=== PATIENT | male | born 1945 | race Caucasian/White ===

== ENCOUNTER 2017-12-21 22:01 | Observation (INO) | payer OTHER ==
--- OUTSIDE RECORDS SUMMARY | 2017-12-21 22:04 | XMS REPORT | Clinical Summary ---
:1945 Author Organization [facility] Address [address] [place] [address] Phone Care Team Providers Name Role Phone Unavailable Primary Care Provider Unavailable Allergies No Known Allergies Current Medications Prescription Sig. Disp. Refills Start Date End Date Status colchicine Take 0.6 mg by 11/30/2015 Active (COLCRYS) 0.6 mg mouth. tablet rivaroxaban Take 20 mg by 11/20/2015 Active (XARELTO) 20 mg Tab mouth. tablet acetaminophen Take 2 tablets 30 tablet 0 10/01/2017 09/27/19 Active (TYLENOL) 325 MG (650 mg total) by 19 tablet mouth every 4 (four) hours as needed for up to 360 days. allopurinol Take 1 tablet 0 10/02/2017 10/03/19 Active (ZYLOPRIM) 100 MG (100 mg total) by 19 tablet mouth daily. amiodarone Take 1 tablet 0 10/02/2017 10/03/19 Active (PACERONE) 200 MG (200 mg total) by 19 tablet mouth daily. formoterol Take 2 mLs (20 0 10/01/2017 Active (PERFOROMIST) 20 mcg total) by mcg/2 mL nebulizer nebulization 2 solution (two) times daily. ascorbic acid, Take 1 tablet 0 10/01/2017 10/02/19 Active vitamin C, (VITAMIN (500 mg total) by 19 C) 500 MG tablet mouth 2 (two) times daily. atorvastatin Take 1 tablet (40 0 10/01/2017 10/02/19 Active (LIPITOR) 40 MG mg total) by 19 tablet mouth nightly. budesonide Take 2 mLs (0.25 60 mL 0 10/01/2017 10/02/19 Active (PULMICORT) 0.25 mg total) by 19 mg/2 mL nebulizer nebulization 2 solution (two) times daily. escitalopram Take 1 tablet (10 0 10/02/2017 01/01/20 Active oxalate (LEXAPRO) mg total) by 18 10 MG tablet mouth daily for 90 days. folic acid Take 1 tablet (1 0 10/02/2017 10/03/19 Active (FOLVITE) 1 MG mg total) by 19 tablet mouth daily. magnesium oxide Take 2 tablets 0 10/02/2017 10/03/19 Active (MAG-OX) 400 mg (800 mg total) by 19 tablet mouth daily. metoprolol Take 1 tablet (50 0 10/02/2017 10/03/19 Active (TOPROL-XL) 50 MG mg total) by 19 24 hr tablet mouth daily. multivitamin Take 1 tablet by 0 10/02/2017 10/03/19 Active (THERAGRAN) tablet mouth daily. 19 pantoprazole Take 1 tablet (40 0 10/02/2017 Active (PROTONIX) 40 MG mg total) by tablet mouth daily. zinc sulfate Take 1 capsule 0 10/02/2017 10/03/19 Active (ZINCATE) 220 (50) (220 mg total) by 19 mg capsule mouth daily. nystatin Apply topically 2 15 g 0 12/04/2017 12/05/19 Active (MYCOSTATIN) (two) times 19 100,000 unit/gram daily. powder allopurinol Take 100 mg by 09/28/2015 10/02/19 Discontinued (ZYLOPRIM) 300 MG mouth daily . 18 tablet furosemide (LASIX) Take 20 mg by 10/08/2015 10/02/19 Discontinued 20 MG tablet mouth. 18 metoprolol Take by mouth 12/08/2015 10/02/19 Discontinued (TOPROL-XL) 100 MG 25mg am and 50mg 18 24 hr tablet pm. simvastatin (ZOCOR) Take 40 mg by 12/15/2015 12/01/19 Discontinued 40 MG tablet mouth. 18 furosemide (LASIX) Take 80 mg by 07/22/19 Discontinued 80 MG tablet mouth daily. 18 lisinopril Take 5 mg by 07/22/19 Discontinued (PRINIVIL,ZESTRIL) mouth daily. 18 5 MG tablet lisinopril Take 20 mg by 10/02/19 Discontinued (PRINIVIL,ZESTRIL) mouth daily. 18 20 MG tablet metroNIDAZOLE Take 1 tablet 30 tablet 0 10/01/2017 10/19/19 (FLAGYL) 500 MG (500 mg total) by 18 tablet mouth every 8 (eight) hours for 17 days. mirtazapine Take 1 tablet (15 0 10/01/2017 11/01/19 (REMERON GISSEL-TAB) mg total) by 18 15 MG mouth nightly for disintegrating 30 days. tablet traMADol (ULTRAM) Take 1 tablet (50 30 tablet 0 10/01/2017 10/04/19 Discontinued 50 mg tablet mg total) by 18 mouth every 6 (six) hours as needed for up to 10 days. Max Daily Amount: 200 mg traMADol (ULTRAM) Take 1 tablet (50 30 tablet 0 10/03/2017 10/04/19 Discontinued 50 mg tablet mg total) by 18 mouth every 6 (six) hours as needed. Max Daily Amount: 200 mg traMADol (ULTRAM) Take 1 tablet (50 30 tablet 0 10/03/2017 12/01/19 Discontinued 50 mg tablet mg total) by 18 mouth every 6 (six) hours as needed. Max Daily Amount: 200 mg acetaminophen-codei Take 1 tablet by 28 tablet 0 11/30/2017 12/08/19 ne (TYLENOL #3) mouth every 6 18 300-30 mg per (six) hours as tablet needed for up to 7 days. Max Daily Amount: 4 tablets Active Problems Problem Noted Date Sacral wound 11/30/2017 Decubitus ulcer 11/28/2017 Acute on chronic diastolic CHF (congestive heart failure), NYHA class 4 2017 ([facility]) Moderate protein-calorie malnutrition (HCC) 09/03/2017 Acute renal failure with tubular necrosis ([facility]) 09/03/2017 Acute pulmonary edema ([facility]) 09/03/2017 Severe sepsis ([facility]) 09/02/2017 Sacral decubitus ulcer, stage IV ([facility]) 09/01/2017 Overview: Added automatically from request for surgery [id number] Cardioembolic stroke ([facility]) 08/15/2017 Superficial postoperative wound infection 08/13/2017 CKD (chronic kidney disease) 08/13/2017 Type 2 diabetes mellitus (HCC) 08/13/2017 Physical deconditioning 08/13/2017 Anemia 08/13/2017 Hyponatremia 08/13/2017 Urinary retention 08/13/2017 Obstructive sleep apnea 07/25/2017 Overview: Untreated Acute pulmonary edema (HCC) 07/25/2017 CAD (coronary artery disease) 07/24/2017 Acute pulmonary insufficiency 07/24/2017 Overview: After cardiac surgery secondary to ERICKSON Angina of effort (HCC) Hyperlipidemia Atrial fibrillation with RVR ([facility]) Coronary artery disease Obesity Encounters Date Type Specialty Care Team Description 11/28/2017 [facility] General Internal Mallory Richardson, - Encounter Medicine 12/04/2017 Rommel Petersen MD Kazim, Lubna Syed, MD 09/19/2017 Procedure Pass 09/19/2017 Surgery Molly Sepulveda LAPAROSCOPY,COLOSTOMY F., CREATION/REVISION 09/18/2017 Anesthesia Event Yaneth Chowdhury GRNA 09/06/2017 Procedure Pass 09/06/2017 Surgery Meghan, R & L CATH / CORONARY Salman ANGIOS / PROSTIN MD Bee STUDY 09/02/2017 [facility] Cardiology [facility], Sacral decubitus - Encounter Edd Morales ulcer, stage IV ([facility]) 10/03/2017 Lara Cash MD (Primary Dx);Severe Rodney Maloney MD sepsis ([facility]);Atrial Gilma Perdomo fibrillation with RVR MD Rommel (HCC);YARELIS (acute kidney injury) ([facility]);Acute pulmonary edema ([facility]);Acute renal failure with tubular necrosis ([facility]);Adjustment disorder with depressed mood;Acute on chronic diastolic CHF (congestive heart failure), NYHA class 4 ([facility]);Coronary artery disease involving greenville coronary artery of greenville heart with unstable angina pectoris ([facility]) 09/02/2017 Procedure Pass 09/02/2017 Surgery [facility], DEBRIDEMENT/I&D,WOUND Edd Morales PERINEAL/RECTAL/VULVA Lara Cash MD R 09/01/2017 Anesthesia Event Catarina Sparks MD 08/15/2017 [facility] Physical Medicine and [place], Cardioembolic stroke - Encounter Rehabilitation Aiden Smith ([facility]);Atrial 09/02/2017 MD fibrillation, unspecified type ([facility]);Coronary artery disease involving greenville coronary artery of greenville heart with angina pectoris ([facility]);Type 2 diabetes mellitus without complication, with long-term current use of insulin ([facility]);Acute pulmonary edema ([facility]);Obstructive sleep apnea;Physical deconditioning;Wound of sacral region, sequela;Postoperative infection of wound of sternum, sequela 08/01/2017 Procedure Pass 08/01/2017 Surgery Trenton Nickerson DEBRIDEMENT/I&D,ANA Chisholm MD 07/31/2017 Anesthesia Event Kermit Rushing MD 07/24/2017 Hospital Cardiology Keri Lincoln Angina of effort - Encounter MD Richardson (HCC);Respiratory 08/15/2017 Yan Arreola insufficiency;Obstruc MD Kate tive sleep Gilma Perdomo apnea;Acute pulmonary MD Rommel insufficiency;Atrial fibrillation, unspecified type (HCC);Acute ischemic stroke (HCC);Wound of buttock, initial encounter;Gait abnormality;Impaired mobility and ADLs 07/24/2017 Anesthesia Event Walter Urbina MD 07/24/2017 Procedure Pass 07/24/2017 Surgery Keri Lincoln BYPASS,AORTO CORONARY MD Richardson LEANDRO/SVG 07/22/2017 [facility] Keri Lincoln Angina of effort Encounter MD Richardson (HCC) 07/22/2017 Office Visit Cardiology Keri Lincoln Coronary artery MD Richardson disease of greenville heart with stable angina pectoris, unspecified vessel or lesion type (HCC) (Primary Dx);Morbid obesity (HCC);Chronic atrial fibrillation (HCC);Angina of effort (HCC);Hyperlipidemia, unspecified hyperlipidemia type;Coronary artery disease involving greenville coronary artery of greenville heart with unstable angina pectoris (HCC) 07/22/2017 Orders Only Cardiology Keri Lincoln MD disease of greenville heart with stable angina pectoris, unspecified vessel or lesion type (HCC);Morbid obesity (HCC);Chronic atrial fibrillation (HCC) after 12/20/2016 Family History Medical History Relation Name Comments Diabetes Brother Heart disease Father Stroke Father Cancer Mother Diabetes Sister Relation Name Status Comments Brother Father Mother Sister Social History Tobacco Use Types Packs/Day Years Used Date Former Smoker Smokeless Tobacco: Never Used Comments: quit in 1981 Alcohol Use Drinks/Week oz/Week Comments Yes Sex Assigned at Date Recorded Not on file Last Filed Vital Signs Vital Sign Reading Time Taken Blood Pressure 128/58 12/04/2017 11:35 AM CDT Pulse 70 12/04/2017 11:35 AM CDT Temperature 36.7 C (98.1 F) 12/04/2017 11:35 AM CDT Respiratory Rate 18 12/04/2017 11:35 AM CDT Oxygen Saturation 96% 12/04/2017 11:35 AM CDT Inhaled Oxygen Concentration - - Weight 111.9 kg (246 lb 11.2 oz) 11/28/2017 5:00 PM CDT Height 182.9 cm (6') 11/28/2017 5:00 PM CDT Body Mass Index 33.46 11/28/2017 5:00 PM CDT Plan of Treatment Health Maintenance Due Date Last Done Comments INFLUENZA VACCINE 02/23/2018 Implants Implanted Type Area [employer] Device Expiration Model / Identifier Date Serial / Lot Sternal Zipfix Ndl Strl .[id number] - [id number] Cardiovascular N/A: SYNTHES:SYNTHES 02/22/2022.001.20S / Implanted: Qty: 3 on 07/24/2017 by Keri Lincoln MD [facility] / [id number] Procedures Procedure Name Priority Date/Time Associated Diagnosis Comments LAPAROSCOPY,COLOSTOMY 09/19/2017 10:01 AM Decubitus ulcer of CREATION/REVISION CDT sacral region, unspecified ulcer stage R & L CATH / CORONARY 09/06/2017 5:59 PM Coronary artery disease ANGIOS / PROSTIN STUDY CDT with angina pectoris, unspecified vessel or lesion type, unspecified whether greenville or transplanted heart (HCC) Case Notes [id number] DEBRIDEMENT/I&D,WOUND 09/02/2017 7:30 AM CDT Sacral decubitus PERINEAL/RECTAL/VULVAR ulcer, stage IV ([facility]) Special Needs shayan hagen DEBRIDEMENT/I&D,STERNUM 08/01/2017 12:04 PM [employer]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 Component Value Ref Range POC-Glucose Meter 128 (H)Comment: TESTED AT [address] 70 - 110 mg/[place] [id number] Specimen Performing Laboratory Blood [facility] [address] [address] MR pelvis without & with IV contrast (11/29/2017 6:47 PM) Specimen Performing Laboratory RIS Narrative FINAL REPORT MRI pelvis without and with contrast. INDICATION: Infection COMPARISON: None TECHNIQUE: Multiplanar multisequence MRI examination of the pelvis was performed without and with intravenous gadolinium. FINDINGS: There is a prominent sacrococcygeal ulcer with associated defect and cellulitis. There is mild edema in the bilateral gluteus hunter muscles as well. There is no organized fluid collection or abscess. The subjacent sacral coccyx demonstrate no bony erosion, abnormal enhancement or edema to suggest osteomyelitis. There is mild presacral edema. There are degenerative changes of the lower lumbar spine. There is a left lower quadrant ostomy. IMPRESSION: 1. Prominent sacral coccygeal ulcer without organized fluid collection or abscess. 2. No evidence of osteomyelitis. Signed: Robert Laughlin MD Report Verified Date/Time:11/30/2017 07:23:22 Reading Location: [address] Ortho Consult Reading Room Procedure Note Interface, External Ris In - 11/30/2017 7:25 AM CDT FINAL REPORT MRI pelvis without and with contrast. INDICATION: Infection COMPARISON: None TECHNIQUE: Multiplanar multisequence MRI examination of the pelvis was performed without and with intravenous gadolinium. FINDINGS: There is a prominent sacrococcygeal ulcer with associated defect and cellulitis. There is mild edema in the bilateral gluteus hunter muscles as well. There is no organized fluid collection or abscess. The subjacent sacral coccyx demonstrate no bony erosion, abnormal enhancement or edema to suggest osteomyelitis. There is mild presacral edema. There are degenerative changes of the lower lumbar spine. There is a left lower quadrant ostomy. IMPRESSION: 1. Prominent sacral coccygeal ulcer without organized fluid collection or abscess. 2. No evidence of osteomyelitis. Signed: Robert Laughlin MD Report Verified Date/Time: 11/30/2017 07:23:22 Reading Location: [facility] C013 Ortho Consult Reading Room Prealbumin (11/29/2017 4:13 AM)Only the most recent of3 resultswithin the time period is included. Component Value Ref Range Prealbumin 15 14 - 45 mg/dL Specimen Performing Laboratory Blood - Central Venous Line [facility] [address] [address] XR chest 1 view portable / bedside (11/28/2017 9:50 PM)Only the most recent of24 resultswithin the time period is included. Specimen Performing Laboratory GE RIS Narrative FINAL REPORT EXAMINATION: AP PORTABLE CHEST RADIOGRAPH CLINICAL INDICATION: Central line placement IMPRESSION: Compared with September 07, 2017 Tip of the right upper extremity central line projects along the expected course of the superior vena cava. Curvilinear opacities are again noted in both lungs, most conspicuous in the perihilar regions and lung bases. Morphology, distribution and stability favor scarring and/or subsegmental atelectasis. Mild superimposed pulmonary edema, pneumonia or mass lesion are difficult to completely exclude on today's limited study. The heart is enlarged as before. Mediastinal contours are grossly stable. Evaluation for pleural fluid is limited by some the AP portable semiupright technique. No evidence of a pneumothorax. Signed: Daysi Torres MD Report Verified Date/Time:11/28/2017 22:05:39 Reading Location: [address] Reading Room Procedure Note Interface, External Ris In - 11/28/2017 10:07 PM CDT FINAL REPORT EXAMINATION: AP PORTABLE CHEST RADIOGRAPH CLINICAL INDICATION: Central line placement IMPRESSION: Compared with September 07, 2017 Tip of the right upper extremity central line projects along the expected course of the superior vena cava. Curvilinear opacities are again noted in both lungs, most conspicuous in the perihilar regions and lung bases. Morphology, distribution and stability favor scarring and/or subsegmental atelectasis. Mild superimposed pulmonary edema, pneumonia or mass lesion are difficult to completely exclude on today's limited study. The heart is enlarged as before. Mediastinal contours are grossly stable. Evaluation for pleural fluid is limited by some the AP portable semiupright technique. No evidence of a pneumothorax. Signed: Daysi Torres MD Report Verified Date/Time: 11/28/2017 22:05:39 Reading Location: [address] [facility] Reading Room Wound culture + gram stain (11/28/2017 2:54 PM)Only the most recent of2 resultswithin the time period is included. Component Value Ref Range Result 2+ Staphylococcus aureus (A) Gram Stain Result <1+ WBCs Gram Stain Result <1+ gram positive cocci in chains and pairs Specimen Performing Laboratory Wound - Sacrum [address] [address] Narrative 3+ Skin ciera Organism Antibiotic Method Susceptibility Staphylococcus aureus Clindamycin 0.25: Susceptible Staphylococcus aureus Erythromycin <=0.25: Susceptible Staphylococcus aureus Linezolid 2: Susceptible Staphylococcus aureus Oxacillin 0.5: Susceptible Staphylococcus aureus Rifampin <=0.5: Susceptible Staphylococcus aureus Tetracycline <=1: Susceptible Staphylococcus aureus Trimethoprim + Sulfamethoxazole <=10: Susceptible Staphylococcus aureus Vancomycin <=0.5: Susceptible bcid (11/28/2017 2:16 PM)Only the most recent of2 resultswithin the time period is included. Component Value Ref Range Scan Result Specimen Performing Laboratory Blood [address] [address] Narrative Result comments: Coagulase Negative Staphylococcus Species (CoNS) DETECTED, Methicillin Resistant First line therapy: Vancomycin Coagulase Negative Staphylococcus (CoNS) DETECTED mecA DETECTED Possible contamination.The likelihood of pathogenicity is increased if the organism is observed in multiple blood cultures obtained from separate venipunctures. Other organisms and resistance markers not contained in this PCR panel cannot be excluded and follow-up of traditional culture results is required. This sample was tested at the [facility] using the [employer] Blood Culture ID Panel. This test is FDA cleared for in vitro diagnostic use and has been verified and approved by the [facility] for clinical use. Reference Range: Not Detected CBC with platelet count + automated diff (11/28/2017 2:16 PM)Only the most recent of55 resultswithin the time period is included. Component Value Ref Range WBC 8.5 3.5 - 10.5 K/L RBC 4.49 (L) 4.63 - 6.08 M/L Hemoglobin 11.6 (L) 13.7 - 17.5 GM/DL Hematocrit 38.7 (L) 40.1 - 51.0 % MCV 86.2 79.0 - 92.2 fL MCH 25.8 25.7 - 32.2 pg MCHC 30.0 (L) 32.3 - 36.5 GM/DL RDW 19.9 (H) 11.6 - 14.4 % Platelets 395 150 - 450 K/CU MM MPV 11.0 9.4 - 12.4 fL nRBC 0 0 - 0 /100 WBC % Neutros 71 % % Lymphs 20 % % Monos 6 % % Eos 1 % % Baso 1 % # Neutros 6.05 (H) 1.78 - 5.38 K/L # Lymphs 1.73 1.32 - 3.57 K/L # Monos 0.52 0.30 - 0.82 K/L # Eos 0.12 0.04 - 0.54 K/L # Baso 0.05 0.01 - 0.08 K/L Immature Granulocytes-Relative 0 0 - 1 % Specimen Performing Laboratory Blood - Arm, [address] [address] Blood culture (11/28/2017 2:16 PM)Only the most recent of7 resultswithin the time period is included. Component Value Ref Range Result From Aerobic Bottle Only Coagulase negative Staphylococcus (A) Gram Stain Result From aerobic bottle only: gram positive cocci in clusters Specimen Performing Laboratory Blood - Arm, [address] [address] Narrative Coagulase Negative Staphylococcus Species (CoNS) DETECTED, Methicillin Resistant First line therapy: Vancomycin Coagulase Negative Staphylococcus (CoNS) DETECTED mecA DETECTED Possible contamination.The likelihood of pathogenicity is increased if the organism is observed in multiple blood cultures obtained from separate venipunctures. Other organisms and resistance markers not contained in this PCR panel cannot be excluded and follow-up of traditional culture results is required. This sample was tested at the [facility] using the [employer] natural Blood Culture ID Panel. This test is FDA cleared for in vitro diagnostic use and has been verified and approved by the [facility] laboratory for clinical use. Reference Range: Not Detected CBC with platelet count + automated diff (11/28/2017 2:16 PM)Only the most recent of55 resultswithin the time period is included. Specimen Performing Laboratory Blood Narrative The following orders were created for panel order CBC with platelet count + automated diff. Procedure Abnormality Status --------- ------ CBC with platelet count ...[[id number]]AbnormalFinal result Please view results for these tests on the individual orders. Basic Metabolic Panel (11/28/2017 2:16 PM)Only the most recent of73 resultswithin the time period is included. Component Value Ref Range Sodium 138 136 - 145 meq/L Potassium 4.2 3.5 - 5.1 meq/L Chloride 106 98 - 107 meq/L CO2 26 22 - 29 meq/L BUN 21 7 - 21 mg/dL Creatinine 1.18 0.57 - 1.25 mg/dL Glucose 108 (H) 70 - 105 mg/dL Calcium 9.3 8.4 - 10.2 mg/dL EGFR 60Comment: ESTIMATED GFR IS NOT ACCURATE mL/min/1.73 sq m CREATININE CLEARANCE IN PREDICTING GLOMERULAR FILTRATION RATE. ESTIMATED GFR IS NOT APPLICABLE FOR DIALYSIS PATIENTS. Specimen Performing Laboratory Blood - Arm, Left [address] [address] RHYTHM STRIP - SCAN (10/07/2017 9:10 AM)Only the most recent of4 resultswithin the time period is included.Magnesium (10/02/2017 4:44 AM)Only the most recent of34 resultswithin the time period is included. Component Value Ref Range Magnesium 1.9 1.6 - 2.6 mg/dL Specimen Performing Laboratory Blood - Arm, Right [address] [address] CARDIAC CATH REPORT - SCAN (09/25/2017 7:11 PM)Only the most recent of2 resultswithin the time period is included.Hepatic function panel (09/20/2017 6: 10 AM)Only the most recent of3 resultswithin the time period is included. Component Value Ref Range Protein, Total 5.7 (L) 6.0 - 8.3 gm/dL Albumin 2.5 (L) 3.5 - 5.0 g/dL Total Bilirubin 0.4 0.2 - 1.2 mg/dL Bilirubin, Direct 0.2 0.1 - 0.5 mg/dL Alkaline Phosphatase 65 40 - 150 U/L AST 18 5 - 34 U/L ALT 11 6 - 55 U/L Specimen Performing Laboratory Blood [address] [address] TRANSFUSION SERVICE REPORT - SCAN (09/19/2017 5:40 PM)Only the most recent of10 resultswithin the time period is included.Type and screen, automated (09/18 5:19 AM)Only the most recent of4 resultswithin the time period is included. Component Value Ref Range ABO/RH AUTOMATED (BEAKER) O POSITIVE Ab Scrn NEGATIVE Specimen Performing Laboratory Blood [address] [address] ECHOCARDIOGRAM REPORT - SCAN (09/09/2017 9:50 AM)Only the most recent of4 resultswithin the time period is included.2D Echo W/Doppler(CW/PW/Color) (2017 1:55 PM)Only the most recent of3 resultswithin the time period is included. Component Value Ref Range Ejection Fraction Specimen Performing Laboratory [facility] ECHO HEARTLAB MKCKESSON CPACS Narrative Transthoracic Echocardiography Report (TTE) Demographics Patient NameGOACOSTA GALLEGODate of Study09/08/2017 PAUL Gender Male Visit [id number] Race [id number] Number Date of 1945 Referring PhysicianAmrit Gooden Age 72 year(s) Birth Certificate Clerk Pipe Connector Luz Cuiprejoey Rogers MD Physician Procedure Type of Study TTE procedure:2DECHO W DOPPLER(CW/PW/COLOR) (Routine) Indications:Dyspnea/SOB. Clinical History A FIB CANCER OF BLADDER CAD CARRENO HLD HTN OBESITY CABG X3 (07/24/17) R AND L CATH (09/06/17) Contrast Medium: Definity. Height: 72 inches Weight: 123.83 kg (273 lbs) BSA: 2.43 m^2 BMI: 37.03 kg/m^2 HR: 91 bpm BP: 134/63 mmHg Summary Technically difficult study. Off axis images. IV echo contrast was used. 1. The left ventricle is chamber size (by vol index) is normal (male - LVED vol - 34-74ml/m2). Mild concentric LV hypertrophy. LV endocardium is partially visualized with IV ultrasound enhancing agent. The following segment(s) appear hypokinetic, distal inferoseptum, distal inferior and apex. Septal motion is abnormal, likely related to prior cardiac surgery . Global LV systolic function is low normal with estimated EF 50-54%. LV diastolic function is indeterminate due to presence of arrhythmia. 2. RV chamber size appears normal by limited views . Global RV systolic function is normal . 3. There is moderate pulmonary regurgitation noted. 4. A trace of tricuspid regurgitation. Peak systolic pressure may be underestimated; partial TR signal. Estimated peak systolic PA pressure is at least 25-30 mmHg . The estimated RA pressure by IVC dynamics 0-5mmHg . 5. No pericardial effusion is visualized. Previous Study Compared to the previous study dated 09/02/2017, no significant changes noted. Signature Findings Left Ventricle Technically difficult study. Off axis images. IV echo contrast was used. The left ventricle is chamber size (by vol index) is normal (male - LVED vol - 34-74ml/m2). Mild concentric LV hypertrophy. LV endocardium is partially visualized with IV ultrasound enhancing agent. The following segment(s) appear hypokinetic, distal inferoseptum, distal inferior and apex. Septal motion is abnormal, likely related to prior cardiac surgery . Global LV systolic function is low normal with estimated EF 50-54%. LV diastolic function is indeterminate due to presence of arrhythmia. Left AtriumLA is not well visualized, unable to estimate LA size. Right VentricleThe right ventricle is not well visualized. RV chamber size appears normal by limited views . Global RV systolic function is normal . Right Atrium RA size is indeterminate (not well seen). Atrial SeptumThe interatrial septum is not well visualized. Aortic Valve Mild AoV cusp thickening. A trace of aortic regurgitation. Mild AoV cusp calcification. AoV calcification primarily involves the right- coronary cusp(s). Mitral Valve Mild MV leaflet thickening. Mild mitral annular calcification. Tricuspid ValveTV structure is normal. A trace of tricuspid regurgitation. Estimated peak systolic PA pressure is 25-30 mmHg . Peak systolic pressure may be underestimated; partial TR signal. Pulmonic Valve PV is not well visualized. There is moderate pulmonary regurgitation noted. AortaAortic root size (SInus of Valsalva diameter) is indeterminate (not well seen) . PericardiumNo pericardial effusion is visualized. IVC/SVC/PA/PV/PleuralThe estimated RA pressure by IVC dynamics 0-5mmHg . Chambers/Structures Left Atrium LA Dimension: 4.44 cmLA Area: 18.17 cm^2 LA Volume: 48.55 ml LA Vol. Index: 20 ml/m^2 Left Ventricle LVIDd: 4.99 cm LVIDs: 3.43 cm LV Septum Diastolic: 1.28 cm LV PW Diastolic: 1.18 cm LV FS: 31.3 % LVOT Diameter: 2.16 cm Aorta Ao Root S of Anna.: 3.76 cm Doppler/Quantitative Measurements LVOT Peak Velocity: 0.96 m/s Peak Gradient: 3.68 mmHg Mean Velocity: 0.58 m/s Mean Gradient: 1.68 mmHg LVOT Diameter: 2.16 cmLVOT VTI: 16.74 cm LVOT Area: 3.66 cm^2LVOT SV:61.31 ml LVOT CO: 5.58 l/min LVOT CI: 2.3 l/min/m^2 RVOT RVOT VTI (PW): 11.6 cm Tricuspid Valve TR Velocity: 1.84 m/s TR Gradient: 13.51 mmHg Pulmonic Valve PI Peak Velocity: 1.61 m/s Procedure Note Interface, External Ris In - 09/09/2017 9:26 AM CDT Transthoracic Echocardiography Report (TTE) Demographics Patient Name ACOSTA ELAINE Date of Study 09/08/2017 PAUL Gender Male Visit Number [id number] Race Room Number 1411 Number Date of 1945 Referring Physician Amrit Gooden Age 72 year(s) Birth Certificate Clerk Pipe Connector Luz Chau Interpreting Alina Rogers MD Physician Procedure Type of Study TTE procedure:2DECHO W DOPPLER(CW/PW/COLOR) (Routine) Indications:Dyspnea/SOB. Clinical History A FIB CANCER OF BLADDER CAD CARRENO HLD HTN OBESITY CABG X3 (07/24/17) R AND L CATH (09/06/17) Contrast Medium: Definity. Height: 72 inches Weight: 123.83 kg (273 lbs) BSA: 2.43 m^2 BMI: 37.03 kg/m^2 HR: 91 bpm BP: 134/63 mmHg Summary Technically difficult study. Off axis images. IV echo contrast was used. 1. The left ventricle is chamber size (by vol index) is normal (male - LVED vol - 34-74ml/m2). Mild concentric LV hypertrophy. LV endocardium is partially visualized with IV ultrasound enhancing agent. The following segment(s) appear hypokinetic, distal inferoseptum, distal inferior and apex. Septal motion is abnormal, likely related to prior cardiac surgery . Global LV systolic function is low normal with estimated EF 50-54%. LV diastolic function is indeterminate due to presence of arrhythmia. 2. RV chamber size appears normal by limited views . Global RV systolic function is normal . 3. There is moderate pulmonary regurgitation noted. 4. A trace of tricuspid regurgitation. Peak systolic pressure may be underestimated; partial TR signal. Estimated peak systolic PA pressure is at least 25-30 mmHg . The estimated RA pressure by IVC dynamics 0-5mmHg . 5. No pericardial effusion is visualized. Previous Study Compared to the previous study dated 09/02/2017, no significant changes noted. Signature Findings Left Ventricle Technically difficult study. Off axis images. IV echo contrast was used. The left ventricle is chamber size (by vol index) is normal (male - LVED vol - 34-74ml/m2). Mild concentric LV hypertrophy. LV endocardium is partially visualized with IV ultrasound enhancing agent. The following segment(s) appear hypokinetic, distal inferoseptum, distal inferior and apex. Septal motion is abnormal, likely related to prior cardiac surgery . Global LV systolic function is low normal with estimated EF 50-54%. LV diastolic function is indeterminate due to presence of arrhythmia. Left Atrium LA is not well visualized, unable to estimate LA size. Right Ventricle The right ventricle is not well visualized. RV chamber size appears normal by limited views . Global RV systolic function is normal . Right Atrium RA size is indeterminate (not well seen). Atrial Septum The interatrial septum is not well visualized. Aortic Valve Mild AoV cusp thickening. A trace of aortic regurgitation. Mild AoV cusp calcification. AoV calcification primarily involves the right- coronary cusp(s). Mitral Valve Mild MV leaflet thickening. Mild mitral annular calcification. Tricuspid Valve TV structure is normal. A trace of tricuspid regurgitation. Estimated peak systolic PA pressure is 25-30 mmHg . Peak systolic pressure may be underestimated; partial TR signal. Pulmonic Valve PV is not well visualized. There is moderate pulmonary regurgitation noted. Aorta Aortic root size (SInus of Valsalva diameter) is indeterminate (not well seen) . Pericardium No pericardial effusion is visualized. IVC/SVC/PA/PV/Pleural The estimated RA pressure by IVC dynamics 0-5mmHg . Chambers/Structures Left Atrium LA Dimension: 4.44 cm LA Area: 18.17 cm^2 LA Volume: 48.55 ml LA Vol. Index: 20 ml/m^2 Left Ventricle LVIDd: 4.99 cm LVIDs: 3.43 cm LV Septum Diastolic: 1.28 cm LV PW Diastolic: 1.18 cm LV FS: 31.3 % LVOT Diameter: 2.16 cm Aorta Ao Root S of Anna.: 3.76 cm Doppler/Quantitative Measurements LVOT Peak Velocity: 0.96 m/s Peak Gradient: 3.68 mmHg Mean Velocity: 0.58 m/s Mean Gradient: 1.68 mmHg LVOT Diameter: 2.16 cm LVOT VTI: 16.74 cm LVOT Area: 3.66 cm^2 LVOT SV:61.31 ml LVOT CO: 5.58 l/min LVOT CI: 2.3 l/min/m^2 RVOT RVOT VTI (PW): 11.6 cm Tricuspid Valve TR Velocity: 1.84 m/s TR Gradient: 13.51 mmHg Pulmonic Valve PI Peak Velocity: 1.61 m/s Phosphorus (09/07/2017 3:01 AM)Only the most recent of12 resultswithin the time period is included. Component Value Ref Range Phosphorus 3.7Comment: Specimen slightly hemolyzed 2.3 - 4.7 mg/dL Specimen Performing Laboratory Blood - Arm, Left [address] [address] Vancomycin level, random (09/06/2017 12:06 PM)Only the most recent of2 resultswithin the time period is included. Component Value Ref Range Vancomycin Rm 19.2 ug/mL Specimen Performing Laboratory Blood [address] [address] Narrative Reference Range: No Normals Prepare Leuko-Red RBC (09/05/2017 11:54 PM)Only the most recent of2 resultswithin the time period is included. Component Value Ref Range CROSSMATCH COMPATIBLE Unit ABO O Pos UNIT NUMBER [id number] Status TRANSFUSED Blood Bank Product RED BLOOD CELLS PRODUCT CODE [id number] Specimen Performing Laboratory Other [place] Vancomycin level, trough (09/05/2017 2:54 PM) Component Value Ref Range Vancomycin Tr 27.4 (H) 10.0 - 20.0 ug/mL Specimen Performing Laboratory Blood - Line, Arterial [address] [address] Narrative Please draw trough 30 minutes prior to vancomycin dose on 09/05. CBC with platelet count + manual diff (09/05/2017 3:02 AM) Component Value Ref Range WBC 10.1 3.5 - 10.5 K/L RBC 3.10 (L) 4.63 - 6.08 M/L Hemoglobin 8.6 (L) 13.7 - 17.5 GM/DL Hematocrit 27.8 (L) 40.1 - 51.0 % MCV 89.7 79.0 - 92.2 fL MCH 27.7 25.7 - 32.2 pg MCHC 30.9 (L) 32.3 - 36.5 GM/DL RDW 17.8 (H) 11.6 - 14.4 % Platelets 439 150 - 450 K/CU MM MPV 9.2 (L) 9.4 - 12.4 fL nRBC 1 (H) 0 - 0 /100 WBC Immature Granulocytes-Relative 3 (H) 0 - 1 % Specimen Performing Laboratory Blood [address] [address] CBC with platelet count + manual diff (09/05/2017 3:02 AM) Specimen Performing Laboratory Blood Narrative The following orders were created for panel order CBC with platelet count + manual diff. Procedure Abnormality Status --------- ------ CBC with platelet count ...[[id number]]AbnormalFinal result Manual Differential[[id number]] Please view results for these tests on the individual orders. CBC (Hemogram only) (09/04/2017 6:58 PM)Only the most recent of4 resultswithin the time period is included. Component Value Ref Range WBC 9.3 3.5 - 10.5 K/L RBC 3.02 (L) 4.63 - 6.08 M/L Hemoglobin 8.5 (L) 13.7 - 17.5 GM/DL Hematocrit 27.2 (L) 40.1 - 51.0 % MCV 90.1 79.0 - 92.2 fL MCH 28.1 25.7 - 32.2 pg MCHC 31.3 (L) 32.3 - 36.5 GM/DL RDW 17.8 (H) 11.6 - 14.4 % Platelets 463 (H) 150 - 450 K/CU MM MPV 9.3 (L) 9.4 - 12.4 fL nRBC 0 0 - 0 /100 WBC Specimen Performing Laboratory Blood [address] [address] Transfuse Leuko-Red RBC (09/04/2017 2:38 PM)Only the most recent of4 resultswithin the time period is included.B-type Natriuretic Factor (BNP) (09/04 10:14 AM)Only the most recent of2 resultswithin the time period is included. Component Value Ref Range BNP 360 (H) 0 - 100 pg/mL Specimen Performing Laboratory Blood [address] [address] Iron, TIBC, % sat. (without ferritin) (09/03/2017 10:22 AM) Component Value Ref Range Iron 38 (L) 40 - 160 ug/dL TIBC 168 (L) 250 - 450 ug/dL Iron % Saturation 23 20 - 55 % Specimen Performing Laboratory Blood - Line, Arterial [address] [address] Reticulocyte count (09/03/2017 10:22 AM) Component Value Ref Range % Retic 3.2 (H) 0.5 - 1.8 % Specimen Performing Laboratory Blood - Line, [address] [address] Ferritin (09/03/2017 10:22 AM) Component Value Ref Range Ferritin 400 (H) 5 - 275 ng/mL Specimen Performing Laboratory Blood - Line, Arterial [address] [address] Hemoglobin and hematocrit (09/03/2017 5:57 AM)Only the most recent of2 resultswithin the time period is included. Component Value Ref Range Hemoglobin 6.7 (L) 13.7 - 17.5 GM/DL Hematocrit 23.0 (L) 40.1 - 51.0 % Specimen Performing Laboratory Blood [address] [address] Urinalysis w/ Microscopic (09/02/2017 10:19 PM)Only the most recent of3 resultswithin the time period is included. Component Value Ref Range Color, UA Yellow Clarity, UA Hazy Specific [place]isle, UA 1.018 1.001 - 1.035 pH, UA 5.0 5.0 - 8.0 Protein, UA 50 mg/dL (A) Negative Glucose, UA Negative Negative Ketones, UA Negative Negative Bilirubin, UA Negative Negative Blood, UA Negative Negative Nitrite, UA Negative Negative Leukocytes, UA Large (A) Negative Urobilinogen, UA 2.0 (H) 0.2 - 1.0 mg/dL RBC, UA 0 /HPF WBC, UA 45 /HPF Mucus Occasional Squam Epithel, UA 1 /HPF Specimen Source Specimen Performing Laboratory Urine [address] [address] Urine culture (09/02/2017 10:19 PM)Only the most recent of2 resultswithin the time period is included. Component Value Ref Range Result No growth Gram Stain Result 1+ WBCs Gram Stain Result No organisms seen Specimen Performing Laboratory Urine - Urine, Frances [address] [address] Lactic acid, arterial, whole blood (09/02/2017 10:07 PM)Only the most recent of6 resultswithin the time period is included. Component Value Ref Range Lactate, Art 1.9 0.5 - 2.2 mmol/L Specimen Performing Laboratory Blood, Arterial [address] [address] Narrative Effective 09/27/2015: Units/Reference Range Change New: 0.5-2.2 mmol/LPrevious: 5-20 mg/dL Lactic acid, venous, whole blood (09/02/2017 7:49 PM)Only the most recent of2 resultswithin the time period is included. Component Value Ref Range Lactate, Venous 2.0 0.5 - 2.2 mmol/L Specimen Performing Laboratory Blood [address] [address] Narrative Effective 09/27/2015: Units/Reference Range Change New: 0.5-2.2 mmol/LPrevious: 5-20 mg/dL aPTT (09/02/2017 1:56 PM)Only the most recent of2 resultswithin the time period is included. Component Value Ref Range PTT 37.6 (H) 22.5 - 36.0 seconds Specimen Performing Laboratory Blood [address] [address] Prothrombin time/INR (09/02/2017 1:56 PM)Only the most recent of4 resultswithin the time period is included. Component Value Ref Range Protime 21.3 (H) 11.7 - 14.7 seconds INR 1.8 <=5.9 Specimen Performing Laboratory Blood [address] [address] Narrative RECOMMENDED COUMADIN/WARFARIN INR THERAPY RANGES STANDARD DOSE: 2.0 - 3.0 Includes: PROPHYLAXIS for venous thrombosis, systemic embolization; TREATMENT for venous thrombosis and/or pulmonary embolus. HIGH RISK: Target INR is 2.5-3.5 for patients with mechanical heart valves. ECG 12 lead (09/02/2017 11:22 AM)Only the most recent of10 resultswithin the time period is included. Specimen Performing Laboratory GE MUSE Narrative Ventricular Rate 127 BPM Atrial Rate 381 BPM QRS Duration 82 ms Q-T Interval 308 ms QTC Calculation(Bazett) 447 ms R [place] 36 degrees T [place] 234 degrees Atrial flutter with variable A-V block Septal infarct (cited on or before 22-JUL-2017) T wave abnormality, consider inferior ischemia Abnormal ECG When compared with ECG of 30-JUL-2017 08:04, Atrial flutter has replaced Atrial fibrillation ST no longer elevated in Inferior leads T wave inversion now evident in Inferior leads Inverted T waves have replaced nonspecific T wave abnormality in Lateral leads Confirmed by Stephanie Duncan Alireaz ([id number]) on 09/02/2017 8:10:43 PM Procedure Note Interface, External Ris In - 09/02/2017 8:10 PM CDT Ventricular Rate 127 BPM Atrial Rate 381 BPM QRS Duration 82 ms Q-T Interval 308 ms QTC Calculation(Bazett) 447 ms R [place] 36 degrees T [place] 234 degrees Atrial flutter with variable A-V block Septal infarct (cited on or before 22-JUL-2017) T wave abnormality, consider inferior ischemia Abnormal ECG When compared with ECG of 30-JUL-2017 08:04, Atrial flutter has replaced Atrial fibrillation ST no longer elevated in Inferior leads T wave inversion now evident in Inferior leads Inverted T waves have replaced nonspecific T wave abnormality in Lateral leads Confirmed by Stephanie Duncan Alireaz ([id number]) on 09/02/2017 8:10:43 PM AFB culture + smear (09/02/2017 10:14 AM)Only the most recent of3 resultswithin the time period is included. Component Value Ref Range Result No acid-fast bacilli isolated in 42 days AFB Smear No acid fast bacilli seen Specimen Performing Laboratory Wound - Sacral [address] [address] Anaerobic culture (09/02/2017 10:14 AM)Only the most recent of3 resultswithin the time period is included. Component Value Ref Range Result 2+ Prevotella bivia (A) Result 2+ Bacteroides fragilis group (A) Specimen Performing Laboratory Wound - [address] [address] Surgically obtained culture + gram stain (09/02/2017 10:14 AM)Only the most recent of3 resultswithin the time period is included. Component Value Ref Range Result No growth Gram Stain Result <1+ WBCs Gram Stain Result No organisms seen Specimen Performing Laboratory Wound [address] [address] Fungus culture + smear (09/02/2017 10:14 AM)Only the most recent of3 resultswithin the time period is included. Component Value Ref Range Result No fungus isolated in 28 days Fungus Smear No fungi seen Specimen Performing Laboratory [address] [address] SPIN/CONCENTRATION CHARGE (09/02/2017 10:14 AM)Only the most recent of2 resultswithin the time period is included. Component Value Ref Range Concentration charged Done Specimen Performing Laboratory [address] [address] Comprehensive metabolic panel (08/28/2017 4:19 PM) Component Value Ref Range Protein, Total 6.6 6.0 - 8.3 gm/dL Albumin 2.6 (L) 3.5 - 5.0 g/dL Alkaline Phosphatase 93 40 - 150 U/L Total Bilirubin 0.4 0.2 - 1.2 mg/dL Sodium 134 (L) 136 - 145 meq/L Potassium 3.5 3.5 - 5.1 meq/L Chloride 98 98 - 107 meq/L CO2 25 22 - 29 meq/L BUN 28 (H) 7 - 21 mg/dL Creatinine 1.36 (H) 0.57 - 1.25 mg/dL Glucose 117 (H) 70 - 105 mg/dL Calcium 8.1 (L) 8.4 - 10.2 mg/dL AST 37 (H) 5 - 34 U/L ALT 29 6 - 55 U/L EGFR 51Comment: ESTIMATED GFR IS NOT ACCURATE mL/min/1.73 sq m CREATININE CLEARANCE IN PREDICTING GLOMERULAR FILTRATION RATE. ESTIMATED GFR IS NOT APPLICABLE FOR DIALYSIS PATIENTS. Specimen Performing Laboratory Blood [facility] [address] [place] [address] Vitamin B12 and Folate (08/19/2017 5:18 AM) Component Value Ref Range Vitamin B12 654 213 - 816 pg/mL Folate 4.4 (L) >=7.0 ng/mL Specimen Performing Laboratory Blood [facility] [address] [place] [address] chest without IV contrast (08/18/2017 9:51 PM) Specimen Performing Laboratory GE RIS Narrative FINAL REPORT CT, CHEST, WITHOUT CONTRAST INDICATION: eval pleural thickening, +asbestos exposure, dyspnea COMPARISON: None TECHNIQUE:Noncontrast axially oriented images were obtained from the thoracic inlet through the lung bases.Coronal and sagittal reformats were provided. DOSE REDUCTION: Dose modulation, iterative reconstruction, and/or weight-based adjustment of the mA/kV was utilized to reduce the radiation dose to as low as reasonably achievable. FINDINGS: Lungs and Pleura: Moderate pleural thickening noted, predominantly on the left. Trace bilateral pleural effusions are present. There are no discernible pleural calcifications. Coarsened interstitial markings at the bases are nonspecific. A calcified granuloma is noted posteriorly at the right base. There is no pneumothorax. Central airways: No obstructing lesion or mucoid material. Mediastinum: No adenopathy. Heart and pericardium: Prominent cardiac size. Moderate, predominantly posterior pericardial effusion. Dense calcified coronary artery disease. Great vessels: Normal calibers. Included upper abdomen: No acute abnormalities. Regional skeletal structures: Demineralization and multilevel degenerative changes. No acute or traumatic abnormality. Additional findings: None. IMPRESSION: Asymmetric pleural thickening, greatest on the left. No pleural calcifications. Predominantly basilar interstitial prominence may reflect subsegmental atelectasis or mild edema. Moderate, posterior pericardial effusion of indeterminate etiology and significance. Signed: JR Johanna, Cj VIVAR Report Verified Date/Time:08/18/2017 22:14:14 Reading Location: [facility] B1 C013Y CT Body Reading Room Procedure Note Interface, External Ris In - 08/18/2017 10:16 PM CDT FINAL REPORT CT, CHEST, WITHOUT CONTRAST INDICATION: eval pleural thickening, +asbestos exposure, dyspnea COMPARISON: None TECHNIQUE: Noncontrast axially oriented images were obtained from the thoracic inlet through the lung bases. Coronal and sagittal reformats were provided. DOSE REDUCTION: Dose modulation, iterative reconstruction, and/or weight-based adjustment of the mA/kV was utilized to reduce the radiation dose to as low as reasonably achievable. FINDINGS: Lungs and Pleura: Moderate pleural thickening noted, predominantly on the left. Trace bilateral pleural effusions are present. There are no discernible pleural calcifications. Coarsened interstitial markings at the bases are nonspecific. A calcified granuloma is noted posteriorly at the right base. There is no pneumothorax. Central airways: No obstructing lesion or mucoid material. Mediastinum: No adenopathy. Heart and pericardium: Prominent cardiac size. Moderate, predominantly posterior pericardial effusion. Dense calcified coronary artery disease. Great vessels: Normal calibers. Included upper abdomen: No acute abnormalities. Regional skeletal structures: Demineralization and multilevel degenerative changes. No acute or traumatic abnormality. Additional findings: None. IMPRESSION: Asymmetric pleural thickening, greatest on the left. No pleural calcifications. Predominantly basilar interstitial prominence may reflect subsegmental atelectasis or mild edema. Moderate, posterior pericardial effusion of indeterminate etiology and significance. Signed: JR Spencer Robert MD Report Verified Date/Time: 08/18/2017 22:14:14 Reading Location: [facility] C013Y CT Body Reading Room ULAR DIAGRAM -SCAN (08/18/2017 3:11 PM)XR chest 2 views (08/15/2017 9:01 AM)Only the most recent of2 resultswithin the time period is included. Specimen Performing Laboratory [place] RIS Narrative FINAL REPORT Two frontal and one lateral chest images compared to August 14 Discussion: Cardiomegaly and pulmonary congestion are present. I could not exclude a small right effusion although pleural thickening would have a similar appearance. No pneumothorax. IMPRESSIONS: No change Signed: Taty Osborne MD Report Verified Date/Time:08/15/2017 09:16:20 Reading Location: [facility] Radiology Reading Room Procedure Note Interface, External Ris In - 08/15/2017 9:18 AM CDT FINAL REPORT Two frontal and one lateral chest images compared to August 14 Discussion: Cardiomegaly and pulmonary congestion are present. I could not exclude a small right effusion although pleural thickening would have a similar appearance. No pneumothorax. IMPRESSIONS: No change Signed: Taty Osborne MD Report Verified Date/Time: 08/15/2017 09:16:20 Reading Location: [facility] Radiology Reading Room Limited 2D Echocardiogram (08/13/2017 10:42 AM) Component Value Ref Range Ejection Fraction Specimen Performing Laboratory [facility] ECHO HEARTLAB MKCKESSON CPACS Narrative Transthoracic Echocardiography Report (TTE) Demographics Patient NameJeni ELAINE of Study08/13/2017 PAUL Gender Male Visit [id number] Race [id number] Number Date of 1945 [facility] Mallory Sanders Physician Age 72 year(s) SonographerJean Claude Cuellar Pipe Connector Luz ContrerasInterpreting Physician CB Aldana Procedure Type of Study TTE procedure:LIMITED 2D ECHOCARDIOGRAM (SHAHNAZ) Indications:Suspected Pericardial conditions. Clinical History HGB 8.2 HCT 27.0 % CAD OBESETY SOB BYPASS AORTO CORONARY 07/24/17 INDICATION: ASSESS RV AND LV FUNCTION Contrast Medium: Definity. Height: 72 inches Weight: 132.9 kg (293 lbs) BSA: 2.51 m^2 BMI: 39.74 kg/m^2 HR: 84 bpm BP: 124/59 mmHg Summary 1. Global LV systolic function hyperdynamic . LVEF by Donaldson's method of disk assessment is increased (>60%) . 2. A small pericardial effusion is present posteriorly Previous Study Compared to the previous study there was no significant change. Signature Findings Technical Quality: Technically difficult exam. Left Ventricle Difficult to visualize endocardial border despite using Definity. The left ventricle is chamber size (by vol index) is normal (male - LVED vol - 34-74ml/m2). Mild concentric LV hypertrophy. Septal motion is abnormal, likely related to prior cardiac surgery . Global LV systolic function hyperdynamic . LVEF by Donaldson's method of disk assessment is increased (>60%) . Degree of diastolic dysfunction (LAP assessment) is inconclusive due to arrhtymia . Left AtriumLA size is normal . Right VentricleRV chamber size is normal Global RV systolic function is normal Right Atrium RA size is normal. Aortic Valve Mild AoV cusp thickening. Mild AoV cusp calcification. AoV cusp mobility is normal . Mitral Valve Mild MV leaflet thickening. Mild mitral annular calcification. Tricuspid ValveTV structure is normal. Pulmonic Valve PV is not well visualized. AortaAortic root size (SInus of Valsalva diameter) is normal . PericardiumA small pericardial effusion is present posteriorly IVC/SVC/PA/PV/PleuralThe inferior vena cava is not visualized. The estimated RA pressure by IVC dynamics indeterminate . Chambers/Structures Left Atrium LA Dimension: 4.29 cmLA Area: 32.99 cm^2 LA Volume: 112.57 ml LA Vol. Index: 45 ml/m^2 Left Ventricle LVIDd: 5.7 cm LVIDs: 3.98 cm LV Septum Diastolic: 1.33 cm LV PW Diastolic: 1.29 cmLV FS: 30.2 % LVEDV Donaldson's:122.18 ml LVESV Donaldson's:29.1 ml LVEDVI: 49 ml/ m^2 LVEF Donladson's: 76.2 %LVESVI: 12 ml/m^2 Right Atrium RA Vol. (Sngl Plane): 85.16 ml Right Ventricle RV Diast Dim.: 4.38 cm Aorta Ao Root S of Anna.: 3.4 cmAscending Aorta: 3.11 cm Procedure Note Interface, External Ris In - 08/13/2017 11:10 PM CDT Transthoracic Echocardiography Report (TTE) Demographics Patient Name ACOSTA ELAINE Date of Study 08/13/2017 PAUL Gender Male Visit Number [id number] Race Room Number 1034 Number Date of 1945 Referring Debra Sanders Physician Age 72 year(s) Birth Certificate Clerk Jean Claude Cuellar Pipe Connector Luz Chau Interpreting Sierra Roberts Physician Procedure Type of Study TTE procedure:LIMITED 2D ECHOCARDIOGRAM (SHAHNAZ) Indications:Suspected Pericardial conditions. Clinical History HGB 8.2 HCT 27.0 % CAD OBESETY SOB BYPASS AORTO CORONARY 07/24/17 INDICATION: ASSESS RV AND LV FUNCTION Contrast Medium: Definity. Height: 72 inches Weight: 132.9 kg (293 lbs) BSA: 2.51 m^2 BMI: 39.74 kg/m^2 HR: 84 bpm BP: 124/59 mmHg Summary 1. Global LV systolic function hyperdynamic . LVEF by Donaldson's method of disk assessment is increased (>60%) . 2. A small pericardial effusion is present posteriorly Previous Study Compared to the previous study there was no significant change. Signature Findings Technical Quality: Technically difficult exam. Left Ventricle Difficult to visualize endocardial border despite using Definity. The left ventricle is chamber size (by vol index) is normal (male - LVED vol - 34-74ml/m2). Mild concentric LV hypertrophy. Septal motion is abnormal, likely related to prior cardiac surgery . Global LV systolic function hyperdynamic . LVEF by Donaldson's method of disk assessment is increased (>60%) . Degree of diastolic dysfunction (LAP assessment) is inconclusive due to arrhtymia . Left Atrium LA size is normal . Right Ventricle RV chamber size is normal Global RV systolic function is normal Right Atrium RA size is normal. Aortic Valve Mild AoV cusp thickening. Mild AoV cusp calcification. AoV cusp mobility is normal . Mitral Valve Mild MV leaflet thickening. Mild mitral annular calcification. Tricuspid Valve TV structure is normal. Pulmonic Valve PV is not well visualized. Aorta Aortic root size (SInus of Valsalva diameter) is normal . Pericardium A small pericardial effusion is present posteriorly IVC/SVC/PA/PV/Pleural The inferior vena cava is not visualized. The estimated RA pressure by IVC dynamics indeterminate . Chambers/Structures Left Atrium LA Dimension: 4.29 cm LA Area: 32.99 cm^2 LA Volume: 112.57 ml LA Vol. Index: 45 ml/m^2 Left Ventricle LVIDd: 5.7 cm LVIDs: 3.98 cm LV Septum Diastolic: 1.33 cm LV PW Diastolic: 1.29 cm LV FS: 30.2 % LVEDV Donaldson's:122.18 ml LVESV Donaldson's:29.1 ml LVEDVI: 49 ml/m^2 LVEF Donaldson's: 76.2 % LVESVI: 12 ml/m^2 Right Atrium RA Vol. (Sngl Plane): 85.16 ml Right Ventricle RV Diast Dim.: 4.38 cm Aorta Ao Root S of Anna.: 3.4 cm Ascending Aorta: 3.11 cm Manual Differential (08/06/2017 4:52 AM)Only the most recent of5 resultswithin the time period is included. Component Value Ref Range Total Counted Specimen Performing Laboratory Blood - Arm, Left [address] [address] [address] brain without IV contrast (08/05/2017 5:02 PM)Only the most recent of2 resultswithin the time period is included. Specimen Performing Laboratory [facility] RIS Narrative FINAL REPORT CT head without contrast 08/05/2017 5:15 PM CLINICAL HISTORY: bleeding TECHNIQUE: Axial noncontrast CT images through the head were obtained. This examination was performed according to our departmental dose optimization program, which includes automated exposure control, adjustment of the mA and/or kV according to patient size, and/or use of iterated reconstruction technique. COMPARISON: 07/28/2017 FINDINGS: There is no hemorrhage, extra-axial collection, mass, hydrocephalus, or midline shift. 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 There is atherosclerotic calcification of the intracranial arterial vasculature. There is generalized parenchymal volume loss. The visualized paranasal sinuses and mastoid air cells are well aerated. The skull is intact. IMPRESSION: No intracranial hemorrhage or mass effect. Chronic appearing ischemic and involutional changes. If concern for acute pathology persists, further evaluation with MRI is recommended. Signed: Miguel Gallardo MD Report Verified Date/Time:08/05/2017 17:19:56 Reading Location: [facility] Radiology Reading Room Procedure Note Interface, External Ris In - 08/05/2017 5:22 PM CDT FINAL REPORT CT head without contrast 08/05/2017 5:15 PM CLINICAL HISTORY: bleeding TECHNIQUE: Axial noncontrast CT images through the head were obtained. This examination was performed according to our departmental dose optimization program, which includes automated exposure control, adjustment of the mA and/or kV according to patient size, and/or use of iterated reconstruction technique. COMPARISON: 07/28/2017 FINDINGS: There is no hemorrhage, extra-axial collection, mass, hydrocephalus, or midline shift. 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 There is atherosclerotic calcification of the intracranial arterial vasculature. There is generalized parenchymal volume loss. The visualized paranasal sinuses and mastoid air cells are well aerated. The skull is intact. IMPRESSION: No intracranial hemorrhage or mass effect. Chronic appearing ischemic and involutional changes. If concern for acute pathology persists, further evaluation with MRI is recommended. Signed: Miguel Gallardo MD Report Verified Date/Time: 08/05/2017 17:19:56 Reading Location: [facility] Radiology Reading Room abdomen / KUB 1 view (08/03/2017 1:20 PM) Specimen Performing Laboratory [facility] RIS Narrative FINAL REPORT Comparison: None Discussion: Abdomen: Bowel gas pattern is nonobstructed. Evaluation for free intraperitoneal air is limited due to technique and positioning. Stent projects over the lower abdomen and pelvis. No acute skeletal abnormality. Impression: 1. Nonspecific bowel gas pattern. Signed: Emerson Rojo MD Report Verified Date/Time:08/03/2017 13:37:00 Reading Location: [address] Transitional Reading Room Procedure Note Interface, External Ris In - 08/03/2017 1:39 PM CDT FINAL REPORT Comparison: None Discussion: Abdomen: Bowel gas pattern is nonobstructed. Evaluation for free intraperitoneal air is limited due to technique and positioning. Stent projects over the lower abdomen and pelvis. No acute skeletal abnormality. Impression: 1. Nonspecific bowel gas pattern. Signed: Emerson Rojo MD Report Verified Date/Time: 08/03/2017 13:37:00 Reading Location: [address] Transitional Reading Room Prepare RBC (08/01/2017 4:17 PM) Component Value Ref Range CROSSMATCH COMPATIBLE Unit ABO O Pos UNIT NUMBER [id number] Status RETURNED FROM ISSUE Blood Bank Product RED BLOOD CELLS PRODUCT CODE E7718F50 CROSSMATCH COMPATIBLE Unit ABO O Pos UNIT NUMBER [id number] Status RETURNED FROM ISSUE Blood Bank Product RED BLOOD CELLS PRODUCT CODE [id number] Specimen Performing Laboratory [facility] [place] PERIPHERAL VASCULAR REPORT - SCAN (08/01/2017 7:20 AM)Calcium, Ionized (2017 4:06 AM)Only the most recent of16 resultswithin the time period is included. Component Value Ref Range Calcium, Ion 0.96 (L) 1.12 - 1.27 mmol/L pH, Blood 7.38 Specimen Performing Laboratory Blood [facility] [address] [address] Carotid doppler bilateral (07/31/2017 7:45 PM) Component Value Ref Range Ejection Fraction Specimen Performing Laboratory [facility] ECHO HEART[facility] MKCKESSON CPACS Impressions Right Impression 1. There is 50-69% diameter reduction (approximately 50 % by 2-D measurement) in the internal carotid artery with heterogeneous plaque, a peak velocity of 141/41cm/sec and an ICA/CCA peak systolic velocity ratio of 2. 2. There is non-occluding plaque in the external carotid artery. 3. There is non-occluding plaque in the common carotid artery. 4. The vertebral artery flow is antegrade . 5. The subclavian artery is patent with a velocity of 143/30cm/sec. Left Impression 1. There is <50% diameter reduction (approximately 22% by 2-D measurement) in the internal carotid artery with a peak velocity of 73/22 cm/sec and heterogeneous plaque. 2. There is non-occluding plaque in the external carotid artery. 3. There is non-occluding plaque in the common carotid artery. 4. The vertebral artery flow is antegrade . 5. The subclavian artery is patent with a velocity of 123/21cm/sec. Conclusions Summary Carotid duplex scanning and color flow imaging were performed bilaterally. The arteries were technically difficult to visualize due to patient inability to cooperate. The right internal carotid artery had 50-69% hemodynamically significant stenosis (approximately 50% by 2-D measurement) with heterogeneous plaque. The left internal carotid artery had <50% hemodynamically insignificant stenosis (approximately 22% by 2-D measurement) with heterogeneous plaque. The vertebral artery flow was antegrade and normal bilaterally. The subclavian arteries were patent with normal flow bilaterally where visualized. Signature Velocities are measured in cm/s ; Diameters are measured in cm Carotid Right Measurements + +----+----+-----+ + + + !Location !PSV !EDV !Angle!%Stenosis 2D!%Stenosis Doppler! Tortuosity ! + +----+----+-----+ + + + !Prox CCA !121 !11.8!60 !! ! ! + +----+----+-----+ + + + !Dist CCA !72.1!11.1!60 !! ! ! + +----+----+-----+ + + + !Prox ICA !141 !41.3!60 !50% !50-69% ! ! + +----+----+-----+ + + + !Dist ICA !144 !47.1!60 !! ! ! + +----+----+-----+ + + + !Prox ECA !102 !11!60 !! ! ! + +----+----+-----+ + + + !Vertebral!21.8!9.04!60 !! ! ! + +----+----+-----+ + + + !Prox Subclavian!143 !30.1!60 !! ! ! + +----+----+-----+ + + + - There is antegrade vertebral flow noted on the right side. - Additional Measurements:ICAPSV/CCAPSV 2.ICAEDV/CCAEDV 3.99. Carotid Left Measurements + +----+----+-----+ + + + !Location !PSV !EDV !Angle!%Stenosis 2D!%Stenosis Doppler! Tortuosity ! + +----+----+-----+ + + + !Prox CCA !143 !27.5!60 !! ! ! + +----+----+-----+ + + + !Dist CCA !107 !19.6!60 !! ! ! + +----+----+-----+ + + + !Prox ICA !73.9!22.9!60 !22% !<50% ! ! + +----+----+-----+ + + + !Dist ICA !76.8!25.2!60 !! ! ! + +----+----+-----+ + + + !Prox ECA !127 !14.7!60 !! ! ! + +----+----+-----+ + + + !Vertebral!69.2!22.3!60 !! ! ! + +----+----+-----+ + + + !Prox Subclavian!123 !21.2!60 !! ! ! + +----+----+-----+ + + + - There is antegrade vertebral flow noted on the left side. - Additional Measurements:ICAPSV/CCAPSV 0.72.ICAEDV/CCAEDV 0.92. Narrative [facility] - Carotid Duplex Study Demographics Patient Name ACOSTA ELAINE Date of Study 07/31/2017 PAUL [id number] Visit Number [id number] Male Accession Number [id number] of 1945 [facility] SonographKamaljit HammpretingJ. Hermilo Cary, RVS Physician , LY Patrick RVT Procedure Type of Study: Cerebral: Carotid, CAROTID DOPPLER, BILATERAL. Indications for Study:Stroke . Patient Status:Routine. Study Location:Portable. Technical Quality:Technically Difficult. Risk Factors History of Disease + + + + !Diagnosis!Date! Comments ! + + + + !History/Risk Factors:!07/31/2017!S/P CABG (07/24/2017)! ! ! !A fib! ! !!ERICKSON ! ! !!CAD ! ! !!Pulmonary edema! + + + + Procedure Note Interface, External Ris In - 07/31/2017 8:41 PM CLOTH PRINTING INSPECTOR [facility] - Carotid Duplex Study Demographics Patient Name ACOSTA ELAINE Date of Study 07/31/2017 PAUL Age 72 Visit Number [id number] Gender Male Accession Number [id number] Date of 1945 Referring Rolosydnie Kate Room Number 1034 Physician Maxwell Birth Certificate Clerk Barry Cary RVS Physician , LY Patrick RVT Procedure Type of Study: Cerebral: Carotid, CAROTID DOPPLER, BILATERAL. Indications for Study:Stroke . Patient Status:Routine. Study Location:Portable. Technical Quality:Technically Difficult. Risk Factors History of Disease + + + + !Diagnosis !Date !Comments ! + + + + !History/Risk Factors: !07/31/2017!S/P CABG (07/24/2017) ! ! ! !A fib ! ! ! !ERICKSON ! ! ! !CAD ! ! ! !Pulmonary edema ! + + + + Impressions Right Impression 1. There is 50-69% diameter reduction (approximately 50 % by 2-D measurement) in the internal carotid artery with heterogeneous plaque, a peak velocity of 141/41cm/sec and an ICA/CCA peak systolic velocity ratio of 2. 2. There is non-occluding plaque in the external carotid artery. 3. There is non-occluding plaque in the common carotid artery. 4. The vertebral artery flow is antegrade . 5. The subclavian artery is patent with a velocity of 143/30cm/sec. Left Impression 1. There is <50% diameter reduction (approximately 22% by 2-D measurement) in the internal carotid artery with a peak velocity of 73/22 cm/sec and heterogeneous plaque. 2. There is non-occluding plaque in the external carotid artery. 3. There is non-occluding plaque in the common carotid artery. 4. The vertebral artery flow is antegrade . 5. The subclavian artery is patent with a velocity of 123/21cm/sec. Conclusions Summary Carotid duplex scanning and color flow imaging were performed bilaterally. The arteries were technically difficult to visualize due to patient inability to cooperate. The right internal carotid artery had 50-69% hemodynamically significant stenosis (approximately 50% by 2-D measurement) with heterogeneous plaque. The left internal carotid artery had <50% hemodynamically insignificant stenosis (approximately 22% by 2-D measurement) with heterogeneous plaque. The vertebral artery flow was antegrade and normal bilaterally. The subclavian arteries were patent with normal flow bilaterally where visualized. Signature Velocities are measured in cm/s ; Diameters are measured in cm Carotid Right Measurements + +----+----+-----+ + + + !Location !PSV !EDV !Angle!%Stenosis 2D!%Stenosis Doppler!Tortuosity ! + +----+----+-----+ + + + !Prox CCA !121 !11.8!60 ! ! ! ! + +----+----+-----+ + + + !Dist CCA !72.1!11.1!60 ! ! ! ! + +----+----+-----+ + + + !Prox ICA !141 !41.3!60 !50% !50-69% ! ! + +----+----+-----+ + + + !Dist ICA !144 !47.1!60 ! ! ! ! + +----+----+-----+ + + + !Prox ECA !102 !11 !60 ! ! ! ! + +----+----+-----+ + + + !Vertebral !21.8!9.04!60 ! ! ! ! + +----+----+-----+ + + + !Prox Subclavian!143 !30.1!60 ! ! ! ! + +----+----+-----+ + + + - There is antegrade vertebral flow noted on the right side. - Additional Measurements:ICAPSV/CCAPSV 2.ICAEDV/CCAEDV 3.99. Carotid Left Measurements + +----+----+-----+ + + + !Location !PSV !EDV !Angle!%Stenosis 2D!%Stenosis Doppler!Tortuosity ! + +----+----+-----+ + + + !Prox CCA !143 !27.5!60 ! ! ! ! + +----+----+-----+ + + + !Dist CCA !107 !19.6!60 ! ! ! ! + +----+----+-----+ + + + !Prox ICA !73.9!22.9!60 !22% !<50% ! ! + +----+----+-----+ + + + !Dist ICA !76.8!25.2!60 ! ! ! ! + +----+----+-----+ + + + !Prox ECA !127 !14.7!60 ! ! ! ! + +----+----+-----+ + + + !Vertebral !69.2!22.3!60 ! ! ! ! + +----+----+-----+ + + + !Prox Subclavian!123 !21.2!60 ! ! ! ! + +----+----+-----+ + + + - There is antegrade vertebral flow noted on the left side. - Additional Measurements:ICAPSV/CCAPSV 0.72.ICAEDV/CCAEDV 0.92. Lipid panel (07/31/2017 4:52 AM) Component Value Ref Range Triglycerides 140 mg/dL Cholesterol 106 mg/dL HDL 19 mg/dL LDL Calculated 59 mg/dL Specimen Performing Laboratory Blood [address] [address] Narrative Triglyceride Reference Range: Low Risk <150 [id number] High Risk 200-499 Very High Risk>=500 Cholesterol Reference Range: Low Risk <200 [id number] High Risk>240 HDL Cholesterol Reference Range: Low Risk >=60 High Risk <40 LDL Cholesterol Reference Range: Optimal<100 Near Xsufuta544-337 [id number] Qowc021-907 Very High >=190 Potassium (07/30/2017 3:52 PM)Only the most recent of14 resultswithin the time period is included. Component Value Ref Range Potassium 3.6 3.5 - 5.1 meq/L Specimen Performing Laboratory Blood [address] [address] Oxygen saturation, measured (07/27/2017 3:43 AM)Only the most recent of3 resultswithin the time period is included. Component Value Ref Range O2 Saturation (Measured) 59.2 % Specimen Performing Laboratory Blood [address] [address] Blood gas, arterial (07/26/2017 8:18 PM)Only the most recent of15 resultswithin the time period is included. Component Value Ref Range pH, Arterial 7.48 (H) 7.35 - 7.45 pCO2, Arterial 34 (L) 35 - 45 mmHg pO2, Arterial 114 (H) 80 - 90 mmHg O2 Sat, Arterial 98.4 (H) 96.0 - 97.0 % HCO3, Arterial 25 21 - 29 mmol/L Base Excess, Arterial 1.6 -2.0 - 3.0 mmol/L Patient Temperature 37.3 C FIO2 52.0 % Specimen Performing Laboratory Blood, Arterial [address] [address] Prepare plasma (07/25/2017 11:55 PM) Component Value Ref Range Unit ABO O Pos UNIT NUMBER [id number] Status RETURNED FROM ISSUE Blood Bank Product FFP PRODUCT CODE H4716N57 Unit ABO O Pos UNIT NUMBER [id number] Status TRANSFUSED Blood Bank Product FFP PRODUCT CODE [id number] Specimen Performing Laboratory [facility] ANESTHESIA [place] (07/25/2017 1:50 PM) Ezekiel Zazueta MD 07/25/20171:50 PM [place] Date: 07/24/2017 2:05 PM Sex: Male Location: OR Requesting Physician: KERI LINCOLN Examiner: ANTHONY AVALOS Patient screened for esoph disease: YesProbe Type: multiplane Modalities: 2D, CFM and CWD Aorta Size Dissection Plaque Thick Plaque Mobile Ascending Ao normal No < 3mm No Ao Arch normal No < 3mm No Descending Ao normal No < 3mm No Valves Annulus Stenosis Area (cm3) Gradient Regurgitation Leaflet Morphology Leaflet Motion Not Visualized Aortic valve normal none trace AI normal normal Mitral valve normal none trivial (1+) normal normal Tricuspid normal none trivial (1+) normal normal Atria Size SEC Thrombus Tumor Device Right Atrium dilated No No No Left Atrium normal No No No Interatrial Septum: Morphology: normal ASD: Shunt: Interventricular Septum: Morphology: normal Defect: Shunt: Ventricles Cavity size Dimension Hypertrophy Thrombus Global FXN EF Right ventricle normal No normal >50% Left ventricle normalYes No normal Pre Intervention Summary: S/P ACB x3 3 times of decrease in BP noted after sternal closure. Change in rhythm between A-fib and ventricular pacing noted at the time of decrease in BP. SHAQU[place] perform to rule out change in cardiac function. Preserved biventricular function. No significant pericardial effusion; No evidence of aortic dissection. Mild MR and TR, Trace AI. Post Intervention Summary: Procedure Note Ezekiel Saenz MD - 07/24/2017 2:05 PM CLOTH PRINTING INSPECTOR Formatting of this note may be different from the original. [place] Date: 07/24/2017 2:05 PM Sex: Male Location: OR Requesting Physician: KERI LINCOLN Examiner: ANTHONY AVALOS Patient screened for esoph disease: Yes Probe Type: multiplane Modalities: 2D, CFM and CWD Aorta Size Dissection Plaque Thick Plaque Mobile Ascending Ao normal No < 3mm No Ao Arch normal No < 3mm No Descending Ao normal No < 3mm No Valves Annulus Stenosis Area (cm3) Gradient Regurgitation Leaflet Morphology Leaflet Motion Not Visualized Aortic valve normal none trace AI normal normal Mitral valve normal none trivial (1+) normal normal Tricuspid normal none trivial (1+) normal normal Atria Size SEC Thrombus Tumor Device Right Atrium dilated No No No Left Atrium normal No No No Interatrial Septum: Morphology: normal ASD: Shunt: Interventricular Septum: Morphology: normal Defect: Shunt: Ventricles Cavity size Dimension Hypertrophy Thrombus Global FXN EF Right ventricle normal No normal >50% Left ventricle normal Yes No normal Pre Intervention Summary: S/P ACB x3 3 times of decrease in BP noted after sternal closure. Change in rhythm between A-fib and ventricular pacing noted at the time of decrease in BP. [place] perform to rule out change in cardiac function. Preserved biventricular function. No significant pericardial effusion; No evidence of aortic dissection. Mild MR and TR, Trace AI. Post Intervention Summary: Potassium-Stat Lab (07/24/2017 9:59 PM)Only the most recent of6 resultswithin the time period is included. Component Value Ref Range Potassium 3.9 3.6 - 5.5 meq/L Specimen Performing Laboratory Blood, Arterial [facility] [address] [address] Glucose-STAT (07/24/2017 9:05 PM) Component Value Ref Range Glucose 232 (H) 70 - 105 mg/dL Specimen Performing Laboratory Blood [address] [address] POC ACTIVATED CLOTTING TIME (07/24/2017 1:32 PM)Only the most recent of6 resultswithin the time period is included. Component Value Ref Range Activated Clotting Time 114Comment: TESTED AT [address] sec [address] Specimen Performing Laboratory Blood [address] [address] [facility] CRITICAL LABS (ABG,NA,K,H&H,GLUCOSE) (07/24/2017 12:52 PM)Only the most recent of5 resultswithin the time period is included. Specimen Performing Laboratory Blood, Arterial Narrative The following orders were created for panel order [facility] CRITICAL LABS (ABG,NA,K,H&H,GLUCOSE). Procedure Abnormality Status --------- ------ Blood gas, arterial[[id number]]AbnormalFinal result Sodium Na-Stat Lab[[id number]] NormalFinal result Potassium-Stat Lab[[id number]] NormalFinal result Glucose-Stat Lab[[id number]] AbnormalFinal result HGB/HCT (H&H)-Stat Lab[[id number]] Abnormal Final result Please view results for these tests on the individual orders. Sodium Na-Stat Lab (07/24/2017 12:52 PM)Only the most recent of5 resultswithin the time period is included. Component Value Ref Range Sodium 136 135 - 148 meq/L Specimen Performing Laboratory Blood, Arterial [address] [address] Glucose-Stat Lab (07/24/2017 12:52 PM)Only the most recent of5 resultswithin the time period is included. Component Value Ref Range Glucose 164 (H) 70 - 110 mg/dL Specimen Performing Laboratory Blood, Arterial [address] [address] HGB/HCT (H&H)-Stat Lab (07/24/2017 12:52 PM)Only the most recent of5 resultswithin the time period is included. Component Value Ref Range Hemoglobin 11.9 (L) 13.0 - 16.8 g/dL Hematocrit 35.0 (L) 40.0 - 50.0 % Specimen Performing Laboratory Blood, Arterial [address] [address] Fibrinogen (07/24/2017 12:07 PM)Only the most recent of2 resultswithin the time period is included. Component Value Ref Range Fibrinogen 287 225 - 434 mg/dl Specimen Performing Laboratory Blood [address] [address] Platelet count (07/24/2017 12:07 PM)Only the most recent of2 resultswithin the time period is included. Component Value Ref Range Platelets 77 (L) 150 - 450 K/CU MM Specimen Performing Laboratory Blood [address] [address] Blood gas, venous (07/24/2017 10:51 AM) Component Value Ref Range pH, Hi 7.27 (L) 7.32 - 7.42 pCO2, Hi 45 41 - 51 mmHg pO2, Hi 46 (H) 25 - 40 mmHg O2 Sat, Hi 85.7 (H) 40.0 - 70.0 % HCO3, Hi 22 21 - 29 mmol/L Base Excess, Hi -6.5 (L) -2.0 - 3.0 mmol/L Patient Temperature 33.1 C FIO2 80.0 % Specimen Performing Laboratory Blood [address] [address] Hemoglobin A1c (07/22/2017 10:00 AM) Component Value Ref Range Hemoglobin A1C 7.6 (H) 4.3 - 6.1 % Specimen Performing Laboratory Blood [address] [address] after 12/20/2016
--- OUTSIDE RECORDS SUMMARY | 2017-12-21 22:14 | XMS REPORT ---
:1945 [facility] [address] [place] [address] [address] [place] [address] Care Team Providers Name Role Phone JOSE DE LA CRUZ Unavailable Unavailable LISA NAVARRO Unavailable Unavailable DENEEN, ENMANUEL JOENS Unavailable Unavailable KERI TORO Unavailable Unavailable Problems This patient has no known problems. Allergies, Adverse Reactions, Alerts This patient has no known allergies or adverse reactions. Medications This patient has no known medications. Results Test Description Test Time Test Comments Text Results Atomic Results Result Comments POCT-GLUCOSE METER 2017-12-04 12:19:00 Test Item Value Reference Range Comments POC-GLUCOSE METER (BEAKER) (test 128 mg/dL 70-110 TESTED AT [address] rsli=0944) [facility] [address] POCT-GLUCOSE [id number] 08:45:00 Test Item Value Reference Range Comments POC-GLUCOSE METER (BEAKER) 116 mg/dL 70-110 TESTED AT [address] (test wyik=4684) [facility] [address] BLOOD [id number] 08:27:00 Test Item Value Reference Range Comments CULTURE (BEAKER) From Aerobic Bottle Only (test jmhg=7571) Coagulase negative Staphylococcus GRAM STAIN RESULT From aerobic bottle (BEAKER) (test only: gram positive dace=5132) cocci in clusters 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 Other organisms and resistance markers not contained in this PCR panel cannot be excluded and follow-up of traditional culture results is required. This sample was tested at the [facility] Clinical Microbiology Laboratory using the [employer] Blood Culture ID Panel.This test is FDA cleared for in vitro diagnostic use and has been verified and approved by the [facility] Microbiology laboratory for clinical use. Reference Range: Not DetectedPOCT-GLUCOSE [id number] 20:41:00 Test Item Value Reference Range Comments POC-GLUCOSE METER (BEAKER) 153 mg/dL 70-110 TESTED AT [address] (test cnkd=1700) [place] [id number] POCT-GLUCOSE [id number] 18:53:00 Test Item Value Reference Range Comments POC-GLUCOSE METER (BEAKER) 138 mg/dL 70-110 TESTED AT [address] (test apvg=6486) [place] [id number] POCT-GLUCOSE [id number] 12:27:00 Test Item Value Reference Range Comments POC-GLUCOSE METER (BEAKER) 147 mg/dL 70-110 TESTED AT [address] (test hufm=5646) [place] [id number] POCT-GLUCOSE [id number] 08:21:00 Test Item Value Reference Range Comments POC-GLUCOSE METER (BEAKER) 106 mg/dL 70-110 TESTED AT [address] (test ycaa=2145) [facility] [address] POCT-GLUCOSE [id number] 22:43:00 Test Item Value Reference Range Comments POC-GLUCOSE METER (BEAKER) 160 mg/dL 70-110 TESTED AT [address] (test cusi=3327) [facility] [address] POCT-GLUCOSE [id number] 17:22:00 Test Item Value Reference Range Comments POC-GLUCOSE METER (BEAKER) 139 mg/dL 70-110 TESTED AT [address] (test dcku=9076) [facility] [address] POCT-GLUCOSE [id number] 16:09:00 Test Item Value Reference Range Comments POC-GLUCOSE METER (BEAKER) 123 mg/dL 70-110 TESTED AT [address] (test lcfr=0451) [facility] [address] POCT-GLUCOSE [id number] 21:33:00 Test Item Value Reference Range Comments POC-GLUCOSE METER (BEAKER) 144 mg/dL 70-110 TESTED AT [address] (test logn=4722) [facility] [address] POCT-GLUCOSE [id number] 17:38:00 Test Item Value Reference Range Comments POC-GLUCOSE METER (BEAKER) 126 mg/dL 70-110 TESTED AT [address] (test iulo=5808) [place] [address] POCT-GLUCOSE [id number] 11:59:00 Test Item Value Reference Range Comments POC-GLUCOSE METER (BEAKER) 112 mg/dL 70-110 TESTED AT [address] (test bjuh=3113) [place] [address] WOUND CULTURE + GRAM [id number] 08:12:00 Test Item Value Reference Range Comments CULTURE (BEAKER) (test STAPHYLOCOCCUS AUREUS 2+ Staphylococcus fiay=2923) aureus Clindamycin (test code=10) Erythromycin (test code=4) Linezolid (test code=40) Nitrofurantoin (test code=23) Oxacillin (test code=14) Rifampin (test code=43) Tetracycline (test code=2) Trimethoprim + Sulfamethoxazole (test code=47) Vancomycin (test code=13) GRAM STAIN RESULT <1+ WBCs (BEAKER) (test nvlk=6849) GRAM STAIN RESULT <1+ gram positive (BEAKER) (test cocci in chains and acnp=656155) pairs 3+ Skin floraMISCELLANEOUS LAB [id number] 07:32:00 Test Item Value Reference Range Comments SCAN RESULT (test pnri=[id number]) Result comments: Coagulase Negative Staphylococcus Species (CoNS) [...] required. This sample was tested at the [facility] Clinical Microbiology Laboratory using the [employer] Blood Culture ID Panel. This test is FDA cleared for in vitro diagnostic use and has been verified and approved by the [facility] Clinical Microbiology laboratory for clinical use. Reference Range: Not DetectedPOCT-GLUCOSE [id number] 07:31:00 Test Item Value Reference Range Comments POC-GLUCOSE METER (BEAKER) 107 mg/dL 70-110 TESTED AT [address] (test rvte=3953) [place] [address] POCT-GLUCOSE [id number] 23:08:00 Test Item Value Reference Range Comments POC-GLUCOSE METER (BEAKER) 106 mg/dL 70-110 TESTED AT [address] (test hcvo=4781) [facility] [address] POCT-GLUCOSE [id number] 16:57:00 Test Item Value Reference Range Comments POC-GLUCOSE METER (BEAKER) 140 mg/dL 70-110 TESTED AT [address] (test zitn=6350) [place] [id number] POCT-GLUCOSE [id number] 12:19:00 Test Item Value Reference Range Comments POC-GLUCOSE METER (BEAKER) 114 mg/dL 70-110 TESTED AT [address] (test shhz=7191) [place] [address] POCT-GLUCOSE [id number] 08:40:00 Test Item Value Reference Range Comments POC-GLUCOSE METER (BEAKER) 117 mg/dL 70-110 TESTED AT [address] (test nizq=9196) [place] [address] MR, PELVIS, [id number] 07:23:00FINAL REPORT MRI pelvis without and with contrast. INDICATION: Infection COMPARISON: None TECHNIQUE: Multiplanar multisequence MRI examination of the pelvis was performed without and with intravenous gadolinium. FINDINGS: There is a prominent sacrococcygeal ulcer with associated defect and cellulitis. There is mild edema in the bilateral gluteus hunter muscles as well. Thereis no organized fluid collection or abscess. The subjacent sacral coccyx demonstrate no bony erosion, abnormal enhancement or edema to suggest osteomyelitis. There is mild presacral edema. There are degenerative changes of the lower lumbar spine. There is a left lower quadrant ostomy. IMPRESSION:1. Prominent sacral coccygeal ulcer without organized fluid collection or abscess.2. No evidence of osteomyelitis. Signed: [facility] Verified Date/Time: 11/30/2017 07:23 :22 Reading Location: [facility] B1 [id number] Ortho Consult Reading Room POCT-GLUCOSE [id number] 22:33:00 Test Item Value Reference Range Comments POC-GLUCOSE METER (BEAKER) 137 mg/dL 70-110 TESTED AT [address] (test wjzl=6612) [place] [address] POCT-GLUCOSE [id number] 16:49:00 Test Item Value Reference Range Comments POC-GLUCOSE METER (BEAKER) 118 mg/dL 70-110 TESTED AT [address] (test pekw=5632) [place] [address] POCT-GLUCOSE [id number] 12:37:00 Test Item Value Reference Range Comments POC-GLUCOSE METER (BEAKER) 146 mg/dL 70-110 TESTED AT [address] (test zmdo=7027) [place] [address] POCT-GLUCOSE [id number] 08:46:00 Test Item Value Reference Range Comments POC-GLUCOSE METER (BEAKER) 109 mg/dL 70-110 TESTED AT [address] (test avkc=1025) [place] [address] [id number] 05:26:00 Test Item Value Reference Range Comments PREALBUMIN (BEAKER) (test bvqm=991) 15 mg/dL 14-45 POCT-GLUCOSE [id number] 22:08:00 Test Item Value Reference Range Comments POC-GLUCOSE METER (BEAKER) 120 mg/dL 70-110 TESTED AT [address] (test prfl=6620) [place] [address] RAD, CHEST, 1 VIEW, NON [id number] 22:05:00Reason for exam:->Post PICC line insertion RUE for tip verification.Should this be performed at the bedside? ->YesFINAL REPORT EXAMINATION: AP PORTABLE CHEST RADIOGRAPH CLINICAL [...] scarring and/or subsegmental atelectasis. Mild superimposed pulmonary edema,pneumonia or mass lesion are difficult to completely exclude on today's limited study. The heart is enlarged as before. Mediastinal contours are grossly stable. Evaluation for pleural fluid is limited by some the AP portable semiupright technique. No evidence of a pneumothorax. Signed: Daysi Torres MDReport Verified Date/Time: 11/28/2017 22:05:39 Reading Location: [address] Reading Room POCT- GLUCOSE [id number] 17:58:00 Test Item Value Reference Range Comments POC-GLUCOSE METER (BEAKER) 181 mg/dL 70-[address] [facility] [address] [facility] (test qywi=5040) [facility] [address] BASIC METABOLIC [id number] 14:55:00 Test Item Value Reference Range Comments SODIUM (BEAKER) (test 138 meq/L 136-145 icko=405) POTASSIUM (BEAKER) (test 4.2 meq/L 3.5-5.1 ueab=926) CHLORIDE (BEAKER) (test 106 meq/L 98-107 sgew=943) CO2 (BEAKER) (test 26 meq/L 22-29 blgy=264) BLOOD UREA NITROGEN 21 mg/dL 7-21 (BEAKER) (test totw=663) CREATININE (BEAKER) (test 1.18 mg/dL 0.57-1.25 agfb=801) GLUCOSE RANDOM (BEAKER) 108 mg/dL 70-105 (test cbov=899) CALCIUM (BEAKER) (test 9.3 mg/dL 8.4-10.2 wtbz=012) EGFR (BEAKER) (test 60 mL/min/1.73 sq m ESTIMATED GFR IS NOT kflr=9142) ACCURATE CREATININE CLEARANCE IN PREDICTING GLOMERULAR FILTRATION RATE. ESTIMATED GFR IS NOT APPLICABLE FOR DIALYSIS PATIENTS. CBC W/PLT COUNT & AUTO [id number] 14:29:00 Test Item Value Reference Range Comments WHITE BLOOD CELL COUNT (BEAKER) (test sikb=715) 8.5 K/ L 3.5-10.5 RED BLOOD CELL COUNT (BEAKER) (test trfn=756) 4.49 M/ L 4.63-6.08 HEMOGLOBIN (BEAKER) (test gzsd=384) 11.6 GM/DL 13.7-17.5 HEMATOCRIT (BEAKER) (test eqej=148) 38.7 % 40.1-51.0 MEAN CORPUSCULAR VOLUME (BEAKER) (test oxrh=343) 86.2 fL 79.0-92.2 MEAN CORPUSCULAR HEMOGLOBIN (BEAKER) (test 25.8 pg 25.7-32.2 acvi=011) MEAN CORPUSCULAR HEMOGLOBIN CONC (BEAKER) (test 30.0 GM/DL 32.3-36.5 jshb=882) RED CELL DISTRIBUTION WIDTH (BEAKER) (test 19.9 % 11.6-14.4 zyus=281) PLATELET COUNT (BEAKER) (test zkzc=638) 395 K/CU MM 150-450 MEAN PLATELET VOLUME (BEAKER) (test qauo=667) 11.0 fL 9.4-12.4 NUCLEATED RED BLOOD CELLS (BEAKER) (test 0 /100 WBC 0-0 ilyi=327) NEUTROPHILS RELATIVE PERCENT (BEAKER) (test 71 % lvgf=773) LYMPHOCYTES RELATIVE PERCENT (BEAKER) (test 20 % ssfq=385) MONOCYTES RELATIVE PERCENT (BEAKER) (test 6 % nitj=069) EOSINOPHILS RELATIVE PERCENT (BEAKER) (test 1 % vfpy=441) BASOPHILS RELATIVE PERCENT (BEAKER) (test 1 % bjee=350) NEUTROPHILS ABSOLUTE COUNT (BEAKER) (test 6.05 K/ L 1.78-5.38 mdsv=283) LYMPHOCYTES ABSOLUTE COUNT (BEAKER) (test 1.73 K/ L 1.32-3.57 qfyg=325) MONOCYTES ABSOLUTE COUNT (BEAKER) (test 0.52 K/ L 0.30-0.82 azjp=877) EOSINOPHILS ABSOLUTE COUNT (BEAKER) (test 0.12 K/ L 0.04-0.54 ojje=149) BASOPHILS ABSOLUTE COUNT (BEAKER) (test 0.05 K/ L 0.01-0.08 vkga=494) IMMATURE GRANULOCYTES-RELATIVE PERCENT (BEAKER) 0 % 0-1 (test lutx=7840) AFB CULTURE + [id number] 09:43:00 Test Item Value Reference Range Comments CULTURE (BEAKER) (test No acid-fast bacilli isolated zwez=1663) in 42 days AFB SMEAR (BEAKER) (test No acid fast bacilli seen bejs=818) AFB CULTURE + [id number] 09:43:00 Test Item Value Reference Range Comments CULTURE (BEAKER) (test No acid-fast bacilli isolated zxjy=7705) in 42 days AFB SMEAR (BEAKER) (test No acid fast bacilli seen ccbz=266) POCT-GLUCOSE [id number] 12:56:00 Test Item Value Reference Range Comments POC-GLUCOSE METER (BEAKER) 119 mg/dL 70-110 TESTED AT [address] (test zclx=1680) [facility] [address] POCT-GLUCOSE [id number] 08:17:00 Test Item Value Reference Range Comments POC-GLUCOSE METER (BEAKER) 111 mg/dL 70-110 TESTED AT [address] (test hcbi=1156) [place] [id number] POCT-GLUCOSE [id number] 21:59:00 Test Item Value Reference Range Comments POC-GLUCOSE METER (BEAKER) 130 mg/dL 70-110 TESTED AT [address] (test byfk=7464) [place] [address] POCT-GLUCOSE [id number] 16:59:00 Test Item Value Reference Range Comments POC-GLUCOSE METER (BEAKER) 120 mg/dL 70-110 TESTED AT [address] (test zdtx=3452) [place] [address] POCT-GLUCOSE [id number] 11:30:00 Test Item Value Reference Range Comments POC-GLUCOSE METER (BEAKER) 125 mg/dL 70-110 TESTED AT [address] (test objb=8162) [place] [address] POCT-GLUCOSE [id number] 07:44:00 Test Item Value Reference Range Comments POC-GLUCOSE METER (BEAKER) 104 mg/dL 70-110 TESTED AT [address] (test qshw=8637) [facility] [address] BASIC METABOLIC [id number] 06:15:00 Test Item Value Reference Range Comments SODIUM (BEAKER) (test 140 meq/L 136-145 qnad=431) POTASSIUM (BEAKER) (test 3.7 meq/L 3.5-5.1 irgc=514) CHLORIDE (BEAKER) (test 114 meq/L 98-107 ztvl=360) CO2 (BEAKER) (test 16 meq/L 22-29 uarv=705) BLOOD UREA NITROGEN 14 mg/dL 7-21 (BEAKER) (test hmzy=509) CREATININE (BEAKER) (test 0.85 mg/dL 0.57-1.25 htiz=505) GLUCOSE RANDOM (BEAKER) 83 mg/dL 70-105 (test nbry=052) CALCIUM (BEAKER) (test 7.9 mg/dL 8.4-10.2 qiqv=212) EGFR (BEAKER) (test 88 mL/min/1.73 sq m ESTIMATED GFR IS NOT ciah=9012) ACCURATE CREATININE CLEARANCE IN PREDICTING GLOMERULAR FILTRATION RATE. ESTIMATED GFR IS NOT APPLICABLE FOR DIALYSIS PATIENTS. [id number] 06:05:00 Test Item Value Reference Range Comments MAGNESIUM (BEAKER) (test wpvr=362) 1.9 mg/dL 1.6-2.6 CBC W/PLT COUNT & AUTO [id number] 05:32:00 Test Item Value Reference Range Comments WHITE BLOOD CELL COUNT (BEAKER) (test akbb=146) 8.9 K/ L 3.5-10.5 RED BLOOD CELL COUNT (BEAKER) (test imua=412) 4.06 M/ L 4.63-6.08 HEMOGLOBIN (BEAKER) (test tiwh=572) 10.9 GM/DL 13.7-17.5 HEMATOCRIT (BEAKER) (test bouu=387) 37.1 % 40.1-51.0 MEAN CORPUSCULAR VOLUME (BEAKER) (test bdnx=559) 91.4 fL 79.0-92.2 MEAN CORPUSCULAR HEMOGLOBIN (BEAKER) (test 26.8 pg 25.7-32.2 rssd=778) MEAN CORPUSCULAR HEMOGLOBIN CONC (BEAKER) (test 29.4 GM/DL 32.3-36.5 dvlm=555) RED CELL DISTRIBUTION WIDTH (BEAKER) (test 19.6 % 11.6-14.4 gnmc=731) PLATELET COUNT (BEAKER) (test nfmy=341) 392 K/CU MM 150-450 MEAN PLATELET VOLUME (BEAKER) (test xzns=620) 10.1 fL 9.4-12.4 NUCLEATED RED BLOOD CELLS (BEAKER) (test 0 /100 WBC 0-0 awvr=768) NEUTROPHILS RELATIVE PERCENT (BEAKER) (test 70 % ecwy=781) LYMPHOCYTES RELATIVE PERCENT (BEAKER) (test 18 % amqw=636) MONOCYTES RELATIVE PERCENT (BEAKER) (test 8 % zeag=726) EOSINOPHILS RELATIVE PERCENT (BEAKER) (test 4 % auai=675) BASOPHILS RELATIVE PERCENT (BEAKER) (test 1 % twoo=893) NEUTROPHILS ABSOLUTE COUNT (BEAKER) (test 6.20 K/ L 1.78-5.38 nvvp=667) LYMPHOCYTES ABSOLUTE COUNT (BEAKER) (test 1.62 K/ L 1.32-3.57 fmre=120) MONOCYTES ABSOLUTE COUNT (BEAKER) (test 0.70 K/ L 0.30-0.82 apol=419) EOSINOPHILS ABSOLUTE COUNT (BEAKER) (test 0.31 K/ L 0.04-0.54 tmsc=273) BASOPHILS ABSOLUTE COUNT (BEAKER) (test 0.06 K/ L 0.01-0.08 awsv=147) IMMATURE GRANULOCYTES-RELATIVE PERCENT (BEAKER) 0 % 0-1 (test fwkb=7391) POCT-GLUCOSE [id number] 20:45:00 Test Item Value Reference Range Comments POC-GLUCOSE METER (BEAKER) 158 mg/dL 70-110 TESTED AT [address] (test wphv=2987) [place] [address] POCT-GLUCOSE [id number] 17:10:00 Test Item Value Reference Range Comments POC-GLUCOSE METER (BEAKER) 149 mg/dL 70-110 TESTED AT [address] (test cimk=1351) [place] [address] FUNGUS CULTURE + [id number] 16:32:00 Test Item Value Reference Range Comments CULTURE (BEAKER) (test No fungus isolated in 28 days yrjc=7973) FUNGUS SMEAR (BEAKER) (test No fungi seen eacz=4238) FUNGUS CULTURE + [id number] 16:32:00 Test Item Value Reference Range Comments CULTURE (BEAKER) (test No fungus isolated in 28 days ojoi=6122) FUNGUS SMEAR (BEAKER) (test No fungi seen lsty=2490) POCT-GLUCOSE [id number] 11:59:00 Test Item Value Reference Range Comments POC-GLUCOSE METER (BEAKER) 135 mg/dL 70-110 TESTED AT [address] (test deps=0734) [place] [id number] POCT-GLUCOSE [id number] 08:05:00 Test Item Value Reference Range Comments POC-GLUCOSE METER (BEAKER) 167 mg/dL 70-110 TESTED AT [address] (test gjar=0026) [place] [address] BASIC METABOLIC [id number] 07:11:00 Test Item Value Reference Range Comments SODIUM (BEAKER) (test 139 meq/L 136-145 njhi=883) POTASSIUM (BEAKER) (test 3.7 meq/L 3.5-5.1 pspu=733) CHLORIDE (BEAKER) (test 116 meq/L 98-107 svlj=163) CO2 (BEAKER) (test 18 meq/L 22-29 isoe=441) BLOOD UREA NITROGEN 14 mg/dL 7-21 (BEAKER) (test adnb=136) CREATININE (BEAKER) (test 0.84 mg/dL 0.57-1.25 flwj=324) GLUCOSE RANDOM (BEAKER) 95 mg/dL 70-105 (test niaz=670) CALCIUM (BEAKER) (test 7.7 mg/dL 8.4-10.2 juoa=309) EGFR (BEAKER) (test 89 mL/min/1.73 sq m ESTIMATED GFR IS NOT wkdy=2305) ACCURATE CREATININE CLEARANCE IN PREDICTING GLOMERULAR FILTRATION RATE. ESTIMATED GFR IS NOT APPLICABLE FOR DIALYSIS PATIENTS. [id number] 07:08:00 Test Item Value Reference Range Comments MAGNESIUM (BEAKER) (test rpst=597) 1.6 mg/dL 1.6-2.6 POCT-GLUCOSE [id number] 21:06:00 Test Item Value Reference Range Comments POC-GLUCOSE METER (BEAKER) 166 mg/dL 70-110 TESTED AT [address] (test xica=9257) [facility] [address] POCT-GLUCOSE [id number] 17:25:00 Test Item Value Reference Range Comments POC-GLUCOSE METER (BEAKER) 149 mg/dL 70-110 TESTED AT [address] (test ojmb=5678) [place] [address] POCT-GLUCOSE [id number] 12:40:00 Test Item Value Reference Range Comments POC-GLUCOSE METER (BEAKER) 143 mg/dL 70-110 TESTED AT [address] (test halt=6941) [place] [address] POCT-GLUCOSE [id number] 08:32:00 Test Item Value Reference Range Comments POC-GLUCOSE METER (BEAKER) 99 mg/dL 70-110 TESTED AT [address] (test zrfu=9534) [place] [address] [id number] 07:01:00 Test Item Value Reference Range Comments MAGNESIUM (BEAKER) (test 1.5 mg/dL 1.6-2.6 Specimen slightly hemolyzed siuy=659) BASIC METABOLIC [id number] 05:59:00 Test Item Value Reference Range Comments SODIUM (BEAKER) (test 140 meq/L 136-145 kaiw=605) POTASSIUM (BEAKER) (test 3.9 meq/L 3.5-5.1 Specimen slightly gxmo=499) hemolyzed CHLORIDE (BEAKER) (test 117 meq/L 98-107 jicb=081) CO2 (BEAKER) (test 15 meq/L 22-29 yqgd=184) BLOOD UREA NITROGEN 15 mg/dL 7-21 (BEAKER) (test kuwu=676) CREATININE (BEAKER) (test 0.81 mg/dL 0.57-1.25 Specimen slightly ypjf=030) hemolyzed GLUCOSE RANDOM (BEAKER) 95 mg/dL 70-105 (test bjeo=955) CALCIUM (BEAKER) (test 7.6 mg/dL 8.4-10.2 wilp=839) EGFR (BEAKER) (test 93 mL/min/1.73 sq m ESTIMATED GFR IS NOT boni=5528) ACCURATE CREATININE CLEARANCE IN PREDICTING GLOMERULAR FILTRATION RATE. ESTIMATED GFR IS NOT APPLICABLE FOR DIALYSIS PATIENTS. CBC W/PLT COUNT & AUTO [id number] 05:12:00 Test Item Value Reference Range Comments WHITE BLOOD CELL COUNT (BEAKER) (test thbw=588) 8.1 K/ L 3.5-10.5 RED BLOOD CELL COUNT (BEAKER) (test opdl=734) 3.27 M/ L 4.63-6.08 HEMOGLOBIN (BEAKER) (test mhhq=014) 8.8 GM/DL 13.7-17.5 HEMATOCRIT (BEAKER) (test vnmj=031) 30.6 % 40.1-51.0 MEAN CORPUSCULAR VOLUME (BEAKER) (test tggj=432) 93.6 fL 79.0-92.2 MEAN CORPUSCULAR HEMOGLOBIN (BEAKER) (test 26.9 pg 25.7-32.2 txae=654) MEAN CORPUSCULAR HEMOGLOBIN CONC (BEAKER) (test 28.8 GM/DL 32.3-36.5 zyjc=018) RED CELL DISTRIBUTION WIDTH (BEAKER) (test 19.8 % 11.6-14.4 rwsn=403) PLATELET COUNT (BEAKER) (test vyfz=440) 370 K/CU MM 150-450 MEAN PLATELET VOLUME (BEAKER) (test htbp=060) 10.5 fL 9.4-12.4 NUCLEATED RED BLOOD CELLS (BEAKER) (test 0 /100 WBC 0-0 vbkb=609) NEUTROPHILS RELATIVE PERCENT (BEAKER) (test 67 % jxpg=676) LYMPHOCYTES RELATIVE PERCENT (BEAKER) (test 19 % zwrp=836) MONOCYTES RELATIVE PERCENT (BEAKER) (test 9 % mlke=308) EOSINOPHILS RELATIVE PERCENT (BEAKER) (test 4 % lztc=303) BASOPHILS RELATIVE PERCENT (BEAKER) (test 1 % xktf=714) NEUTROPHILS ABSOLUTE COUNT (BEAKER) (test 5.46 K/ L 1.78-5.38 omzi=568) LYMPHOCYTES ABSOLUTE COUNT (BEAKER) (test 1.51 K/ L 1.32-3.57 ydhn=262) MONOCYTES ABSOLUTE COUNT (BEAKER) (test 0.72 K/ L 0.30-0.82 hyht=283) EOSINOPHILS ABSOLUTE COUNT (BEAKER) (test 0.32 K/ L 0.04-0.54 iyox=026) BASOPHILS ABSOLUTE COUNT (BEAKER) (test 0.07 K/ L 0.01-0.08 rmfn=480) IMMATURE GRANULOCYTES-RELATIVE PERCENT (BEAKER) 1 % 0-1 (test gdjl=5334) POCT-GLUCOSE [id number] 21:38:00 Test Item Value Reference Range Comments POC-GLUCOSE METER (BEAKER) 119 mg/dL 70-110 TESTED AT [address] (test klle=5867) [facility] [address] POCT-GLUCOSE [id number] 17:02:00 Test Item Value Reference Range Comments POC-GLUCOSE METER (BEAKER) 150 mg/dL 70-110 TESTED AT [address] (test vdtx=5672) [place] [id number] POCT-GLUCOSE [id number] 12:18:00 Test Item Value Reference Range Comments POC-GLUCOSE METER (BEAKER) 143 mg/dL 70-110 TESTED AT [address] (test iigh=8113) [facility] [address] POCT-GLUCOSE [id number] 10:33:00 Test Item Value Reference Range Comments POC-GLUCOSE METER (BEAKER) 184 mg/dL 70-110 TESTED AT [address] (test iors=8243) [facility] [id number] POCT-GLUCOSE [id number] 21:23:00 Test Item Value Reference Range Comments POC-GLUCOSE METER (BEAKER) 130 mg/dL 70-110 TESTED AT [address] (test letz=5049) [facility] [address] POCT-GLUCOSE [id number] 17:48:00 Test Item Value Reference Range Comments POC-GLUCOSE METER (BEAKER) 117 mg/dL 70-110 TESTED AT [address] (test iqsh=3748) [facility] [address] POCT-GLUCOSE [id number] 13:20:00 Test Item Value Reference Range Comments POC-GLUCOSE METER (BEAKER) 118 mg/dL 70-110 TESTED AT [address] (test hhrb=7480) [facility] [address] POCT-GLUCOSE [id number] 08:15:00 Test Item Value Reference Range Comments POC-GLUCOSE METER (BEAKER) 102 mg/dL 70-110 TESTED AT [address] (test hazg=3828) [facility] [address] BASIC METABOLIC [id number] 05:42:00 Test Item Value Reference Range Comments SODIUM (BEAKER) (test 139 meq/L 136-145 akjx=586) POTASSIUM (BEAKER) (test 4.2 meq/L 3.5-5.1 iamk=002) CHLORIDE (BEAKER) (test 114 meq/L 98-107 sjkf=604) CO2 (BEAKER) (test 17 meq/L 22-29 rnbx=977) BLOOD UREA NITROGEN 17 mg/dL 7-21 (BEAKER) (test tqyx=773) CREATININE (BEAKER) (test 0.90 mg/dL 0.57-1.25 negl=780) GLUCOSE RANDOM (BEAKER) 91 mg/dL 70-105 (test odup=446) CALCIUM (BEAKER) (test 7.9 mg/dL 8.4-10.2 okjt=673) EGFR (BEAKER) (test 82 mL/min/1.73 sq m ESTIMATED GFR IS NOT anjy=2227) ACCURATE CREATININE CLEARANCE IN PREDICTING GLOMERULAR FILTRATION RATE. ESTIMATED GFR IS NOT APPLICABLE FOR DIALYSIS PATIENTS. CBC W/PLT COUNT & AUTO [id number] 04:58:00 Test Item Value Reference Range Comments WHITE BLOOD CELL COUNT (BEAKER) (test mzvo=513) 8.2 K/ L 3.5-10.5 RED BLOOD CELL COUNT (BEAKER) (test wuql=917) 3.31 M/ L 4.63-6.08 HEMOGLOBIN (BEAKER) (test lcss=582) 9.1 GM/DL 13.7-17.5 HEMATOCRIT (BEAKER) (test qneo=909) 30.7 % 40.1-51.0 MEAN CORPUSCULAR VOLUME (BEAKER) (test wpqu=342) 92.7 fL 79.0-92.2 MEAN CORPUSCULAR HEMOGLOBIN (BEAKER) (test 27.5 pg 25.7-32.2 cdgr=889) MEAN CORPUSCULAR HEMOGLOBIN CONC (BEAKER) (test 29.6 GM/DL 32.3-36.5 gpkf=090) RED CELL DISTRIBUTION WIDTH (BEAKER) (test 19.5 % 11.6-14.4 cvrv=690) PLATELET COUNT (BEAKER) (test ugyu=086) 384 K/CU MM 150-450 MEAN PLATELET VOLUME (BEAKER) (test jejc=336) 10.2 fL 9.4-12.4 NUCLEATED RED BLOOD CELLS (BEAKER) (test 0 /100 WBC 0-0 wnmr=716) NEUTROPHILS RELATIVE PERCENT (BEAKER) (test 69 % nhxs=542) LYMPHOCYTES RELATIVE PERCENT (BEAKER) (test 19 % ebqd=354) MONOCYTES RELATIVE PERCENT (BEAKER) (test 8 % nyox=240) EOSINOPHILS RELATIVE PERCENT (BEAKER) (test 4 % esyg=963) BASOPHILS RELATIVE PERCENT (BEAKER) (test 1 % ezdn=187) NEUTROPHILS ABSOLUTE COUNT (BEAKER) (test 5.61 K/ L 1.78-5.38 jzqo=184) LYMPHOCYTES ABSOLUTE COUNT (BEAKER) (test 1.52 K/ L 1.32-3.57 ncdb=081) MONOCYTES ABSOLUTE COUNT (BEAKER) (test 0.62 K/ L 0.30-0.82 yswh=699) EOSINOPHILS ABSOLUTE COUNT (BEAKER) (test 0.31 K/ L 0.04-0.54 ivza=804) BASOPHILS ABSOLUTE COUNT (BEAKER) (test 0.04 K/ L 0.01-0.08 tses=190) IMMATURE GRANULOCYTES-RELATIVE PERCENT (BEAKER) 1 % 0-1 (test aowr=0323) POCT-GLUCOSE [id number] 20:56:00 Test Item Value Reference Range Comments POC-GLUCOSE METER (BEAKER) 106 mg/dL 70-110 TESTED AT [address] (test cqyf=4785) [facility] [address] POCT-GLUCOSE [id number] 16:55:00 Test Item Value Reference Range Comments POC-GLUCOSE METER (BEAKER) 106 mg/dL 70-110 TESTED AT [address] (test skep=6541) [place] [id number] POCT-GLUCOSE [id number] 12:19:00 Test Item Value Reference Range Comments POC-GLUCOSE METER (BEAKER) 121 mg/dL 70-110 TESTED AT [address] (test zkhl=0054) [place] [id number] POCT-GLUCOSE [id number] 07:51:00 Test Item Value Reference Range Comments POC-GLUCOSE METER (BEAKER) 190 mg/dL 70-110 TESTED AT [address] (test atca=1421) [place] [id number] POCT-GLUCOSE [id number] 21:29:00 Test Item Value Reference Range Comments POC-GLUCOSE METER (BEAKER) 117 mg/dL 70-110 TESTED AT [address] (test zlzd=0687) [facility] [address] POCT-GLUCOSE [id number] 17:29:00 Test Item Value Reference Range Comments POC-GLUCOSE METER (BEAKER) 123 mg/dL 70-110 TESTED AT [address] (test imhu=6819) [place] [id number] POCT-GLUCOSE [id number] 07:09:00 Test Item Value Reference Range Comments POC-GLUCOSE METER (BEAKER) 96 mg/dL 70-110 TESTED AT [address] (test jipn=6410) [facility] [address] BASIC METABOLIC [id number] 06:48:00 Test Item Value Reference Range Comments SODIUM (BEAKER) (test 139 meq/L 136-145 zbkp=382) POTASSIUM (BEAKER) (test 4.2 meq/L 3.5-5.1 ehnr=729) CHLORIDE (BEAKER) (test 114 meq/L 98-107 amhx=811) CO2 (BEAKER) (test 17 meq/L 22-29 omnt=193) BLOOD UREA NITROGEN 18 mg/dL 7-21 (BEAKER) (test pnwn=634) CREATININE (BEAKER) (test 0.97 mg/dL 0.57-1.25 fjfw=073) GLUCOSE RANDOM (BEAKER) 94 mg/dL 70-105 (test rnjz=966) CALCIUM (BEAKER) (test 8.3 mg/dL 8.4-10.2 rewg=914) EGFR (BEAKER) (test 76 mL/min/1.73 sq m ESTIMATED GFR IS NOT vdgc=0851) ACCURATE CREATININE CLEARANCE IN PREDICTING GLOMERULAR FILTRATION RATE. ESTIMATED GFR IS NOT APPLICABLE FOR DIALYSIS PATIENTS. CBC W/PLT COUNT & AUTO [id number] 05:36:00 Test Item Value Reference Range Comments WHITE BLOOD CELL COUNT (BEAKER) (test juio=987) 8.0 K/ L 3.5-10.5 RED BLOOD CELL COUNT (BEAKER) (test ujqj=352) 3.32 M/ L 4.63-6.08 HEMOGLOBIN (BEAKER) (test jxsy=066) 9.1 GM/DL 13.7-17.5 HEMATOCRIT (BEAKER) (test ohvu=248) 31.1 % 40.1-51.0 MEAN CORPUSCULAR VOLUME (BEAKER) (test pfpe=656) 93.7 fL 79.0-92.2 MEAN CORPUSCULAR HEMOGLOBIN (BEAKER) (test 27.4 pg 25.7-32.2 juai=738) MEAN CORPUSCULAR HEMOGLOBIN CONC (BEAKER) (test 29.3 GM/DL 32.3-36.5 ktjh=639) RED CELL DISTRIBUTION WIDTH (BEAKER) (test 19.7 % 11.6-14.4 ywcs=098) PLATELET COUNT (BEAKER) (test nsli=394) 361 K/CU MM 150-450 MEAN PLATELET VOLUME (BEAKER) (test rlwl=514) 10.1 fL 9.4-12.4 NUCLEATED RED BLOOD CELLS (BEAKER) (test 0 /100 WBC 0-0 pcwg=643) NEUTROPHILS RELATIVE PERCENT (BEAKER) (test 66 % zcfv=312) LYMPHOCYTES RELATIVE PERCENT (BEAKER) (test 20 % qyuw=953) MONOCYTES RELATIVE PERCENT (BEAKER) (test 8 % dauf=216) EOSINOPHILS RELATIVE PERCENT (BEAKER) (test 5 % cydu=011) BASOPHILS RELATIVE PERCENT (BEAKER) (test 1 % tjlo=586) NEUTROPHILS ABSOLUTE COUNT (BEAKER) (test 5.27 K/ L 1.78-5.38 xfpl=874) LYMPHOCYTES ABSOLUTE COUNT (BEAKER) (test 1.62 K/ L 1.32-3.57 rdkd=446) MONOCYTES ABSOLUTE COUNT (BEAKER) (test 0.61 K/ L 0.30-0.82 cwae=589) EOSINOPHILS ABSOLUTE COUNT (BEAKER) (test 0.42 K/ L 0.04-0.54 vvnl=086) BASOPHILS ABSOLUTE COUNT (BEAKER) (test 0.05 K/ L 0.01-0.08 zejt=214) IMMATURE GRANULOCYTES-RELATIVE PERCENT (BEAKER) 1 % 0-1 (test daxj=9100) POCT-GLUCOSE [id number] 21:28:00 Test Item Value Reference Range Comments POC-GLUCOSE METER (BEAKER) 119 mg/dL 70-110 TESTED AT [address] (test pibf=8452) [facility] [address] POCT-GLUCOSE [id number] 17:30:00 Test Item Value Reference Range Comments POC-GLUCOSE METER (BEAKER) 119 mg/dL 70-110 TESTED AT [address] (test piov=9822) [facility] [address] POCT-GLUCOSE [id number] 12:16:00 Test Item Value Reference Range Comments POC-GLUCOSE METER (BEAKER) 172 mg/dL 70-110 TESTED AT [address] (test wywv=0720) [facility] [address] POCT-GLUCOSE [id number] 08:15:00 Test Item Value Reference Range Comments POC-GLUCOSE METER (BEAKER) 118 mg/dL 70-110 TESTED AT [address] (test kuji=6105) [place] [id number] POCT-GLUCOSE [id number] 20:56:00 Test Item Value Reference Range Comments POC-GLUCOSE METER (BEAKER) 171 mg/dL 70-110 TESTED AT [address] (test mmlc=6876) [place] [id number] POCT-GLUCOSE [id number] 16:52:00 Test Item Value Reference Range Comments POC-GLUCOSE METER (BEAKER) 130 mg/dL 70-[address] [facility] [address] [facility] (test nnmg=6246) [facility] [address] POCT-GLUCOSE [id number] 12:59:00 Test Item Value Reference Range Comments POC-GLUCOSE METER (BEAKER) 124 mg/dL 70-110 TESTED AT [address] (test odtw=7121) [facility] [address] POCT-GLUCOSE [id number] 07:37:00 Test Item Value Reference Range Comments POC-GLUCOSE METER (BEAKER) 95 mg/dL 70-110 TESTED AT [address] (test lunf=0128) [facility] [address] BASIC METABOLIC [id number] 05:54:00 Test Item Value Reference Range Comments SODIUM (BEAKER) (test 140 meq/L 136-145 aleu=913) POTASSIUM (BEAKER) (test 4.4 meq/L 3.5-5.1 ozes=187) CHLORIDE (BEAKER) (test 116 meq/L 98-107 tfbm=414) CO2 (BEAKER) (test 17 meq/L 22-29 ylxn=638) BLOOD UREA NITROGEN 16 mg/dL 7-21 (BEAKER) (test bonz=393) CREATININE (BEAKER) (test 1.01 mg/dL 0.57-1.25 shzw=923) GLUCOSE RANDOM (BEAKER) 98 mg/dL 70-105 (test ezsg=905) CALCIUM (BEAKER) (test 8.3 mg/dL 8.4-10.2 uaep=250) EGFR (BEAKER) (test 72 mL/min/1.73 sq m ESTIMATED GFR IS NOT mfpk=6840) ACCURATE CREATININE CLEARANCE IN PREDICTING GLOMERULAR FILTRATION RATE. ESTIMATED GFR IS NOT APPLICABLE FOR DIALYSIS PATIENTS. CBC W/PLT COUNT & AUTO [id number] 05:33:00 Test Item Value Reference Range Comments WHITE BLOOD CELL COUNT (BEAKER) (test lmga=977) 8.8 K/ L 3.5-10.5 RED BLOOD CELL COUNT (BEAKER) (test qgyg=116) 3.34 M/ L 4.63-6.08 HEMOGLOBIN (BEAKER) (test nqrd=519) 9.2 GM/DL 13.7-17.5 HEMATOCRIT (BEAKER) (test divi=980) 31.9 % 40.1-51.0 MEAN CORPUSCULAR VOLUME (BEAKER) (test ksqv=161) 95.5 fL 79.0-92.2 MEAN CORPUSCULAR HEMOGLOBIN (BEAKER) (test 27.5 pg 25.7-32.2 vydc=176) MEAN CORPUSCULAR HEMOGLOBIN CONC (BEAKER) (test 28.8 GM/DL 32.3-36.5 jsop=959) RED CELL DISTRIBUTION WIDTH (BEAKER) (test 19.8 % 11.6-14.4 gmou=214) PLATELET COUNT (BEAKER) (test hkdm=904) 375 K/CU MM 150-450 MEAN PLATELET VOLUME (BEAKER) (test ysld=448) 9.9 fL 9.4-12.4 NUCLEATED RED BLOOD CELLS (BEAKER) (test 0 /100 WBC 0-0 rgoi=748) NEUTROPHILS RELATIVE PERCENT (BEAKER) (test 69 % zjbp=570) LYMPHOCYTES RELATIVE PERCENT (BEAKER) (test 17 % ivsv=943) MONOCYTES RELATIVE PERCENT (BEAKER) (test 8 % mbnb=818) EOSINOPHILS RELATIVE PERCENT (BEAKER) (test 5 % gmxe=802) BASOPHILS RELATIVE PERCENT (BEAKER) (test 1 % vjet=813) NEUTROPHILS ABSOLUTE COUNT (BEAKER) (test 6.05 K/ L 1.78-5.38 avmk=819) LYMPHOCYTES ABSOLUTE COUNT (BEAKER) (test 1.53 K/ L 1.32-3.57 xjsa=694) MONOCYTES ABSOLUTE COUNT (BEAKER) (test 0.73 K/ L 0.30-0.82 btvt=456) EOSINOPHILS ABSOLUTE COUNT (BEAKER) (test 0.40 K/ L 0.04-0.54 xjzn=218) BASOPHILS ABSOLUTE COUNT (BEAKER) (test 0.05 K/ L 0.01-0.08 cjma=862) IMMATURE GRANULOCYTES-RELATIVE PERCENT (BEAKER) 1 % 0-1 (test ubjp=5237) POCT-GLUCOSE [id number] 21:13:00 Test Item Value Reference Range Comments POC-GLUCOSE METER (BEAKER) 159 mg/dL 70-[address] [facility] [address] [facility] (test rzjo=6748) [facility] [address] POCT-GLUCOSE [id number] 17:08:00 Test Item Value Reference Range Comments POC-GLUCOSE METER (BEAKER) 150 mg/dL 70-110 TESTED AT [address] (test hyeu=6327) [facility] [address] POCT-GLUCOSE [id number] 12:03:00 Test Item Value Reference Range Comments POC-GLUCOSE METER (BEAKER) 163 mg/dL 70-110 TESTED AT [address] (test swel=2032) [facility] [address] POCT-GLUCOSE [id number] 08:07:00 Test Item Value Reference Range Comments POC-GLUCOSE METER (BEAKER) 114 mg/dL 70-110 TESTED AT [address] (test fzia=5420) [place] [id number] POCT-GLUCOSE [id number] 01:27:00 Test Item Value Reference Range Comments POC-GLUCOSE METER (BEAKER) 116 mg/dL 70-110 TESTED AT [address] (test cgah=2081) [place] [address] POCT-GLUCOSE [id number] 19:42:00 Test Item Value Reference Range Comments POC-GLUCOSE METER (BEAKER) 119 mg/dL 70-110 TESTED AT [address] (test ilxx=4733) [place] [address] POCT-GLUCOSE [id number] 12:22:00 Test Item Value Reference Range Comments POC-GLUCOSE METER (BEAKER) 130 mg/dL 70-110 TESTED AT [address] (test awey=7863) [place] [id number] POCT-GLUCOSE [id number] 07:40:00 Test Item Value Reference Range Comments POC-GLUCOSE METER (BEAKER) 132 mg/dL 70-110 TESTED AT [address] (test sehj=6182) [facility] [address] BASIC METABOLIC [id number] 05:37:00 Test Item Value Reference Range Comments SODIUM (BEAKER) (test 136 meq/L 136-145 losy=000) POTASSIUM (BEAKER) (test 4.2 meq/L 3.5-5.1 qaon=599) CHLORIDE (BEAKER) (test 111 meq/L 98-107 upga=160) CO2 (BEAKER) (test 18 meq/L 22-29 kpgk=488) BLOOD UREA NITROGEN 21 mg/dL 7-21 (BEAKER) (test pfxh=877) CREATININE (BEAKER) (test 0.90 mg/dL 0.57-1.25 kkqh=711) GLUCOSE RANDOM (BEAKER) 102 mg/dL 70-105 (test qubi=061) CALCIUM (BEAKER) (test 7.8 mg/dL 8.4-10.2 haej=354) EGFR (BEAKER) (test 82 mL/min/1.73 sq m ESTIMATED GFR IS NOT uwxp=3655) ACCURATE CREATININE CLEARANCE IN PREDICTING GLOMERULAR FILTRATION RATE. ESTIMATED GFR IS NOT APPLICABLE FOR DIALYSIS PATIENTS. CBC W/PLT COUNT & AUTO [id number] 05:03:00 Test Item Value Reference Range Comments WHITE BLOOD CELL COUNT (BEAKER) (test estx=948) 9.7 K/ L 3.5-10.5 RED BLOOD CELL COUNT (BEAKER) (test rphc=659) 3.04 M/ L 4.63-6.08 HEMOGLOBIN (BEAKER) (test ypib=491) 8.3 GM/DL 13.7-17.5 HEMATOCRIT (BEAKER) (test qmuk=205) 28.9 % 40.1-51.0 MEAN CORPUSCULAR VOLUME (BEAKER) (test shxm=585) 95.1 fL 79.0-92.2 MEAN CORPUSCULAR HEMOGLOBIN (BEAKER) (test 27.3 pg 25.7-32.2 siis=269) MEAN CORPUSCULAR HEMOGLOBIN CONC (BEAKER) (test 28.7 GM/DL 32.3-36.5 eouz=988) RED CELL DISTRIBUTION WIDTH (BEAKER) (test 19.7 % 11.6-14.4 xxcl=550) PLATELET COUNT (BEAKER) (test uyvt=339) 356 K/CU MM 150-450 MEAN PLATELET VOLUME (BEAKER) (test dmdc=823) 10.4 fL 9.4-12.4 NUCLEATED RED BLOOD CELLS (BEAKER) (test 0 /100 WBC 0-0 bpuk=943) NEUTROPHILS RELATIVE PERCENT (BEAKER) (test 72 % jtre=184) LYMPHOCYTES RELATIVE PERCENT (BEAKER) (test 15 % josj=438) MONOCYTES RELATIVE PERCENT (BEAKER) (test 7 % eute=770) EOSINOPHILS RELATIVE PERCENT (BEAKER) (test 5 % tanj=352) BASOPHILS RELATIVE PERCENT (BEAKER) (test 1 % vvxh=373) NEUTROPHILS ABSOLUTE COUNT (BEAKER) (test 6.97 K/ L 1.78-5.38 syyb=034) LYMPHOCYTES ABSOLUTE COUNT (BEAKER) (test 1.48 K/ L 1.32-3.57 nfqc=636) MONOCYTES ABSOLUTE COUNT (BEAKER) (test 0.69 K/ L 0.30-0.82 zyjp=701) EOSINOPHILS ABSOLUTE COUNT (BEAKER) (test 0.44 K/ L 0.04-0.54 njkg=800) BASOPHILS ABSOLUTE COUNT (BEAKER) (test 0.05 K/ L 0.01-0.08 boxf=501) IMMATURE GRANULOCYTES-RELATIVE PERCENT (BEAKER) 1 % 0-1 (test nfyd=2565) POCT-GLUCOSE [id number] 21:34:00 Test Item Value Reference Range Comments POC-GLUCOSE METER (BEAKER) 141 mg/dL 70-110 TESTED AT [address] (test lsbe=8113) [place] [address] POCT-GLUCOSE [id number] 18:21:00 Test Item Value Reference Range Comments POC-GLUCOSE METER (BEAKER) 131 mg/dL 70-110 TESTED AT [address] (test cvpr=2517) [place] [id number] POCT-GLUCOSE [id number] 12:54:00 Test Item Value Reference Range Comments POC-GLUCOSE METER (BEAKER) 139 mg/dL 70-110 TESTED AT [address] (test dtoe=5310) [place] [id number] POCT-GLUCOSE [id number] 08:41:00 Test Item Value Reference Range Comments POC-GLUCOSE METER (BEAKER) 132 mg/dL 70-110 TESTED AT [address] (test nvkr=6126) [place] [id number] BASIC METABOLIC [id number] 05:44:00 Test Item Value Reference Range Comments SODIUM (BEAKER) (test 137 meq/L 136-145 wpqn=532) POTASSIUM (BEAKER) (test 3.9 meq/L 3.5-5.1 tzor=190) CHLORIDE (BEAKER) (test 111 meq/L 98-107 azes=275) CO2 (BEAKER) (test 17 meq/L 22-29 epgo=159) BLOOD UREA NITROGEN 21 mg/dL 7-21 (BEAKER) (test pbdf=468) CREATININE (BEAKER) (test 1.01 mg/dL 0.57-1.25 jihy=940) GLUCOSE RANDOM (BEAKER) 136 mg/dL 70-105 (test iyrn=009) CALCIUM (BEAKER) (test 7.6 mg/dL 8.4-10.2 zxhk=579) EGFR (BEAKER) (test 72 mL/min/1.73 sq m ESTIMATED GFR IS NOT tign=3234) ACCURATE CREATININE CLEARANCE IN PREDICTING GLOMERULAR FILTRATION RATE. ESTIMATED GFR IS NOT APPLICABLE FOR DIALYSIS PATIENTS. CBC W/PLT COUNT & AUTO [id number] 04:59:00 Test Item Value Reference Range Comments WHITE BLOOD CELL COUNT (BEAKER) (test zzqh=741) 9.8 K/ L 3.5-10.5 RED BLOOD CELL COUNT (BEAKER) (test oxqe=685) 3.06 M/ L 4.63-6.08 HEMOGLOBIN (BEAKER) (test lnmw=349) 8.5 GM/DL 13.7-17.5 HEMATOCRIT (BEAKER) (test leku=013) 29.4 % 40.1-51.0 MEAN CORPUSCULAR VOLUME (BEAKER) (test kmco=651) 96.1 fL 79.0-92.2 MEAN CORPUSCULAR HEMOGLOBIN (BEAKER) (test 27.8 pg 25.7-32.2 rirs=536) MEAN CORPUSCULAR HEMOGLOBIN CONC (BEAKER) (test 28.9 GM/DL 32.3-36.5 qzyt=143) RED CELL DISTRIBUTION WIDTH (BEAKER) (test 19.9 % 11.6-14.4 bbtu=029) PLATELET COUNT (BEAKER) (test tzvk=238) 357 K/CU MM 150-450 MEAN PLATELET VOLUME (BEAKER) (test qsfx=170) 10.1 fL 9.4-12.4 NUCLEATED RED BLOOD CELLS (BEAKER) (test 0 /100 WBC 0-0 hfrw=277) NEUTROPHILS RELATIVE PERCENT (BEAKER) (test 73 % owxv=360) LYMPHOCYTES RELATIVE PERCENT (BEAKER) (test 13 % hccl=973) MONOCYTES RELATIVE PERCENT (BEAKER) (test 7 % vxcq=748) EOSINOPHILS RELATIVE PERCENT (BEAKER) (test 5 % qpla=383) BASOPHILS RELATIVE PERCENT (BEAKER) (test 1 % lmed=241) NEUTROPHILS ABSOLUTE COUNT (BEAKER) (test 7.20 K/ L 1.78-5.38 wpvd=128) LYMPHOCYTES ABSOLUTE COUNT (BEAKER) (test 1.28 K/ L 1.32-3.57 oiha=852) MONOCYTES ABSOLUTE COUNT (BEAKER) (test 0.72 K/ L 0.30-0.82 thoo=000) EOSINOPHILS ABSOLUTE COUNT (BEAKER) (test 0.47 K/ L 0.04-0.54 dcxw=034) BASOPHILS ABSOLUTE COUNT (BEAKER) (test 0.05 K/ L 0.01-0.08 uwzq=571) IMMATURE GRANULOCYTES-RELATIVE PERCENT (BEAKER) 1 % 0-1 (test szgm=9130) POCT-GLUCOSE [id number] 21:21:00 Test Item Value Reference Range Comments POC-GLUCOSE METER (BEAKER) 141 mg/dL 70-110 TESTED AT [address] (test skgv=5739) [place] [id number] POCT-GLUCOSE [id number] 17:50:00 Test Item Value Reference Range Comments POC-GLUCOSE METER (BEAKER) 142 mg/dL 70-110 TESTED AT [address] (test aqpk=0756) [facility] [address] POCT-GLUCOSE [id number] 12:12:00 Test Item Value Reference Range Comments POC-GLUCOSE METER (BEAKER) 148 mg/dL 70-110 TESTED AT [address] (test sabk=4920) [facility] [address] HEPATIC FUNCTION [id number] 09:57:00 Test Item Value Reference Range Comments TOTAL PROTEIN (BEAKER) (test wwjo=027) 5.7 gm/dL 6.0-8.3 ALBUMIN (BEAKER) (test edum=9179) 2.5 g/dL 3.5-5.0 BILIRUBIN TOTAL (BEAKER) (test pqxv=800) 0.4 mg/dL 0.2-1.2 BILIRUBIN DIRECT (BEAKER) (test xney=789) 0.2 mg/dL 0.1-0.5 ALKALINE PHOSPHATASE (BEAKER) (test kgng=160) 65 U/L 40-150 AST (SGOT) (BEAKER) (test bfil=595) 18 U/L 5-34 ALT (SGPT) (BEAKER) (test gptb=078) 11 U/L 6-55 BASIC METABOLIC [id number] 08:36:00 Test Item Value Reference Range Comments SODIUM (BEAKER) (test 139 meq/L 136-145 adsf=141) POTASSIUM (BEAKER) (test 4.1 meq/L 3.5-5.1 ykov=815) CHLORIDE (BEAKER) (test 111 meq/L 98-107 sbnp=873) CO2 (BEAKER) (test 19 meq/L 22-29 dhxl=391) BLOOD UREA NITROGEN 31 mg/dL 7-21 (BEAKER) (test chki=452) CREATININE (BEAKER) (test 1.29 mg/dL 0.57-1.25 ikqc=638) GLUCOSE RANDOM (BEAKER) 138 mg/dL 70-105 (test bnen=756) CALCIUM (BEAKER) (test 7.7 mg/dL 8.4-10.2 qeaj=491) EGFR (BEAKER) (test 54 mL/min/1.73 sq m ESTIMATED GFR IS NOT zpqn=8816) ACCURATE CREATININE CLEARANCE IN PREDICTING GLOMERULAR FILTRATION RATE. ESTIMATED GFR IS NOT APPLICABLE FOR DIALYSIS PATIENTS. POCT-GLUCOSE [id number] 08:14:00 Test Item Value Reference Range Comments POC-GLUCOSE METER (BEAKER) 156 mg/dL 70-[address] [facility] [address] [facility] (test eqzm=6960) [facility] [address] CBC W/PLT COUNT & AUTO [id number] 08:14:00 Test Item Value Reference Range Comments WHITE BLOOD CELL COUNT (BEAKER) (test voue=069) 9.2 K/ L 3.5-10.5 RED BLOOD CELL COUNT (BEAKER) (test iasu=370) 3.41 M/ L 4.63-6.08 HEMOGLOBIN (BEAKER) (test ulmu=128) 9.3 GM/DL 13.7-17.5 HEMATOCRIT (BEAKER) (test ukoz=278) 32.5 % 40.1-51.0 MEAN CORPUSCULAR VOLUME (BEAKER) (test hwwe=926) 95.3 fL 79.0-92.2 MEAN CORPUSCULAR HEMOGLOBIN (BEAKER) (test 27.3 pg 25.7-32.2 lmxy=255) MEAN CORPUSCULAR HEMOGLOBIN CONC (BEAKER) (test 28.6 GM/DL 32.3-36.5 imsm=753) RED CELL DISTRIBUTION WIDTH (BEAKER) (test 20.0 % 11.6-14.4 zdyx=639) PLATELET COUNT (BEAKER) (test fbbm=684) 387 K/CU MM 150-450 MEAN PLATELET VOLUME (BEAKER) (test dafu=454) 10.2 fL 9.4-12.4 NUCLEATED RED BLOOD CELLS (BEAKER) (test 0 /100 WBC 0-0 xxra=331) NEUTROPHILS RELATIVE PERCENT (BEAKER) (test 76 % jjpz=474) LYMPHOCYTES RELATIVE PERCENT (BEAKER) (test 12 % ynvw=415) MONOCYTES RELATIVE PERCENT (BEAKER) (test 9 % grjq=488) EOSINOPHILS RELATIVE PERCENT (BEAKER) (test 2 % nkah=212) BASOPHILS RELATIVE PERCENT (BEAKER) (test 1 % ypfc=893) NEUTROPHILS ABSOLUTE COUNT (BEAKER) (test 6.98 K/ L 1.78-5.38 zwea=934) LYMPHOCYTES ABSOLUTE COUNT (BEAKER) (test 1.10 K/ L 1.32-3.57 hylw=377) MONOCYTES ABSOLUTE COUNT (BEAKER) (test 0.79 K/ L 0.30-0.82 ebwg=117) EOSINOPHILS ABSOLUTE COUNT (BEAKER) (test 0.17 K/ L 0.04-0.54 mnsp=819) BASOPHILS ABSOLUTE COUNT (BEAKER) (test 0.06 K/ L 0.01-0.08 ldzt=702) IMMATURE GRANULOCYTES-RELATIVE PERCENT (BEAKER) 1 % 0-1 (test hdfo=0733) POCT-GLUCOSE [id number] 21:25:00 Test Item Value Reference Range Comments POC-GLUCOSE METER (BEAKER) 144 mg/dL 70-110 TESTED AT [address] (test ekam=6802) [facility] [id number] POCT-GLUCOSE [id number] 17:34:00 Test Item Value Reference Range Comments POC-GLUCOSE METER (BEAKER) 155 mg/dL 70-110 TESTED AT [address] (test bgtf=3379) [place] [id number] POCT-GLUCOSE [id number] 11:45:00 Test Item Value Reference Range Comments POC-GLUCOSE METER (BEAKER) 114 mg/dL 70-110 TESTED AT [address] (test cfbg=6008) [place] [id number] POCT-GLUCOSE [id number] 07:56:00 Test Item Value Reference Range Comments POC-GLUCOSE METER (BEAKER) 106 mg/dL 70-[address] [facility] [address] [facility] (test wcsa=1352) [facility] [address] BASIC METABOLIC [id number] 05:58:00 Test Item Value Reference Range Comments SODIUM (BEAKER) (test 137 meq/L 136-145 mele=628) POTASSIUM (BEAKER) (test 4.6 meq/L 3.5-5.1 ftyk=378) CHLORIDE (BEAKER) (test 110 meq/L 98-107 nvmj=713) CO2 (BEAKER) (test 18 meq/L 22-29 eulg=586) BLOOD UREA NITROGEN 38 mg/dL 7-21 (BEAKER) (test ihrt=496) CREATININE (BEAKER) (test 1.32 mg/dL 0.57-1.25 wgoh=388) GLUCOSE RANDOM (BEAKER) 105 mg/dL 70-105 (test sfal=032) CALCIUM (BEAKER) (test 8.0 mg/dL 8.4-10.2 spgs=854) EGFR (BEAKER) (test 53 mL/min/1.73 sq m ESTIMATED GFR IS NOT dozu=8649) ACCURATE CREATININE CLEARANCE IN PREDICTING GLOMERULAR FILTRATION RATE. ESTIMATED GFR IS NOT APPLICABLE FOR DIALYSIS PATIENTS. CBC W/PLT COUNT & AUTO [id number] 05:42:00 Test Item Value Reference Range Comments WHITE BLOOD CELL COUNT (BEAKER) (test xxpq=250) 9.1 K/ L 3.5-10.5 RED BLOOD CELL COUNT (BEAKER) (test wqzf=755) 3.38 M/ L 4.63-6.08 HEMOGLOBIN (BEAKER) (test pjxx=382) 9.2 GM/DL 13.7-17.5 HEMATOCRIT (BEAKER) (test ecyp=803) 31.5 % 40.1-51.0 MEAN CORPUSCULAR VOLUME (BEAKER) (test lrhi=783) 93.2 fL 79.0-92.2 MEAN CORPUSCULAR HEMOGLOBIN (BEAKER) (test 27.2 pg 25.7-32.2 vrqz=436) MEAN CORPUSCULAR HEMOGLOBIN CONC (BEAKER) (test 29.2 GM/DL 32.3-36.5 avyy=272) RED CELL DISTRIBUTION WIDTH (BEAKER) (test 19.4 % 11.6-14.4 zksd=678) PLATELET COUNT (BEAKER) (test xmue=547) 379 K/CU MM 150-450 MEAN PLATELET VOLUME (BEAKER) (test hxpf=465) 9.9 fL 9.4-12.4 NUCLEATED RED BLOOD CELLS (BEAKER) (test 0 /100 WBC 0-0 ioav=652) NEUTROPHILS RELATIVE PERCENT (BEAKER) (test 70 % uxtw=790) LYMPHOCYTES RELATIVE PERCENT (BEAKER) (test 18 % jnts=672) MONOCYTES RELATIVE PERCENT (BEAKER) (test 7 % hknw=713) EOSINOPHILS RELATIVE PERCENT (BEAKER) (test 3 % fpkz=269) BASOPHILS RELATIVE PERCENT (BEAKER) (test 1 % zowf=346) NEUTROPHILS ABSOLUTE COUNT (BEAKER) (test 6.33 K/ L 1.78-5.38 wlti=666) LYMPHOCYTES ABSOLUTE COUNT (BEAKER) (test 1.65 K/ L 1.32-3.57 sbrr=781) MONOCYTES ABSOLUTE COUNT (BEAKER) (test 0.66 K/ L 0.30-0.82 clgd=997) EOSINOPHILS ABSOLUTE COUNT (BEAKER) (test 0.28 K/ L 0.04-0.54 zpse=332) BASOPHILS ABSOLUTE COUNT (BEAKER) (test 0.07 K/ L 0.01-0.08 xomk=672) IMMATURE GRANULOCYTES-RELATIVE PERCENT (BEAKER) 1 % 0-1 (test igye=8189) POCT-GLUCOSE [id number] 21:38:00 Test Item Value Reference Range Comments POC-GLUCOSE METER (BEAKER) 124 mg/dL 70-110 TESTED AT [address] (test rbkg=7724) [facility] [address] POCT-GLUCOSE [id number] 18:26:00 Test Item Value Reference Range Comments POC-GLUCOSE METER (BEAKER) 115 mg/dL 70-110 TESTED AT [address] (test zckr=0643) [facility] [address] POCT-GLUCOSE [id number] 11:51:00 Test Item Value Reference Range Comments POC-GLUCOSE METER (BEAKER) 148 mg/dL 70-110 TESTED AT [address] (test xvbi=3860) [facility] [address] POCT-GLUCOSE [id number] 08:28:00 Test Item Value Reference Range Comments POC-GLUCOSE METER (BEAKER) 124 mg/dL 70-[address] [facility] [address] (test czbv=2448) [facility] [address] BASIC METABOLIC [id number] 06:52:00 Test Item Value Reference Range Comments SODIUM (BEAKER) (test 138 meq/L 136-145 vhxr=058) POTASSIUM (BEAKER) (test 4.4 meq/L 3.5-5.1 wpdt=330) CHLORIDE (BEAKER) (test 109 meq/L 98-107 efeo=982) CO2 (BEAKER) (test 21 meq/L 22-29 rdxn=760) BLOOD UREA NITROGEN 48 mg/dL 7-21 (BEAKER) (test stvh=975) CREATININE (BEAKER) (test 1.40 mg/dL 0.57-1.25 djcw=679) GLUCOSE RANDOM (BEAKER) 112 mg/dL 70-105 (test ugep=357) CALCIUM (BEAKER) (test 8.2 mg/dL 8.4-10.2 bwhv=811) EGFR (BEAKER) (test 50 mL/min/1.73 sq m ESTIMATED GFR IS NOT iopq=1611) ACCURATE CREATININE CLEARANCE IN PREDICTING GLOMERULAR FILTRATION RATE. ESTIMATED GFR IS NOT APPLICABLE FOR DIALYSIS PATIENTS. CBC W/PLT COUNT & AUTO [id number] 06:19:00 Test Item Value Reference Range Comments WHITE BLOOD CELL COUNT (BEAKER) (test xsbn=660) 9.2 K/ L 3.5-10.5 RED BLOOD CELL COUNT (BEAKER) (test srcg=336) 3.32 M/ L 4.63-6.08 HEMOGLOBIN (BEAKER) (test pzxc=189) 9.2 GM/DL 13.7-17.5 HEMATOCRIT (BEAKER) (test bfzx=635) 31.3 % 40.1-51.0 MEAN CORPUSCULAR VOLUME (BEAKER) (test gtyr=435) 94.3 fL 79.0-92.2 MEAN CORPUSCULAR HEMOGLOBIN (BEAKER) (test 27.7 pg 25.7-32.2 cdik=620) MEAN CORPUSCULAR HEMOGLOBIN CONC (BEAKER) (test 29.4 GM/DL 32.3-36.5 yhsn=409) RED CELL DISTRIBUTION WIDTH (BEAKER) (test 19.5 % 11.6-14.4 iams=188) PLATELET COUNT (BEAKER) (test pgxy=142) 420 K/CU MM 150-450 MEAN PLATELET VOLUME (BEAKER) (test rrdi=175) 10.1 fL 9.4-12.4 NUCLEATED RED BLOOD CELLS (BEAKER) (test 0 /100 WBC 0-0 rysg=782) NEUTROPHILS RELATIVE PERCENT (BEAKER) (test 68 % fjhd=544) LYMPHOCYTES RELATIVE PERCENT (BEAKER) (test 19 % kphl=100) MONOCYTES RELATIVE PERCENT (BEAKER) (test 9 % tqxt=591) EOSINOPHILS RELATIVE PERCENT (BEAKER) (test 3 % rjyq=331) BASOPHILS RELATIVE PERCENT (BEAKER) (test 1 % fnvs=776) NEUTROPHILS ABSOLUTE COUNT (BEAKER) (test 6.25 K/ L 1.78-5.38 nsae=252) LYMPHOCYTES ABSOLUTE COUNT (BEAKER) (test 1.72 K/ L 1.32-3.57 rmya=168) MONOCYTES ABSOLUTE COUNT (BEAKER) (test 0.80 K/ L 0.30-0.82 uuhf=675) EOSINOPHILS ABSOLUTE COUNT (BEAKER) (test 0.29 K/ L 0.04-0.54 wkzu=031) BASOPHILS ABSOLUTE COUNT (BEAKER) (test 0.07 K/ L 0.01-0.08 sjog=735) IMMATURE GRANULOCYTES-RELATIVE PERCENT (BEAKER) 1 % 0-1 (test ohqv=6957) POCT-GLUCOSE [id number] 21:24:00 Test Item Value Reference Range Comments POC-GLUCOSE METER (BEAKER) 153 mg/dL 70-110 TESTED AT [address] (test qpbk=9724) [place] [id number] POCT-GLUCOSE [id number] 16:21:00 Test Item Value Reference Range Comments POC-GLUCOSE METER (BEAKER) 177 mg/dL 70-110 TESTED AT [place] [id number] [facility] (test hjpe=3978) [place] [id number] [employer] CULTURE + [id number] 12:45:00 Test Item Value Reference Range Comments CULTURE (BEAKER) (test No acid-fast bacilli isolated ewkl=5549) in 42 days AFB SMEAR (BEAKER) (test No acid fast bacilli seen qtxr=098) POCT-GLUCOSE [id number] 12:07:00 Test Item Value Reference Range Comments POC-GLUCOSE METER (BEAKER) 141 mg/dL 70-[address] [facility] [address] [facility] (test jpmi=0774) [facility] [address] POCT-GLUCOSE [id number] 07:48:00 Test Item Value Reference Range Comments POC-GLUCOSE METER (BEAKER) 141 mg/dL 70-[address] [facility] [address] [facility] (test ypeb=6899) [facility] [address] BASIC METABOLIC [id number] 04:55:00 Test Item Value Reference Range Comments SODIUM (BEAKER) (test 137 meq/L 136-145 mvzt=745) POTASSIUM (BEAKER) (test 4.5 meq/L 3.5-5.1 aafc=330) CHLORIDE (BEAKER) (test 107 meq/L 98-107 khgj=726) CO2 (BEAKER) (test 21 meq/L 22-29 msav=685) BLOOD UREA NITROGEN 47 mg/dL 7-21 (BEAKER) (test pvyy=834) CREATININE (BEAKER) (test 1.32 mg/dL 0.57-1.25 ynrg=114) GLUCOSE RANDOM (BEAKER) 111 mg/dL 70-105 (test rkoy=047) CALCIUM (BEAKER) (test 8.2 mg/dL 8.4-10.2 wifs=663) EGFR (BEAKER) (test 53 mL/min/1.73 sq m ESTIMATED GFR IS NOT qinf=1246) ACCURATE CREATININE CLEARANCE IN PREDICTING GLOMERULAR FILTRATION RATE. ESTIMATED GFR IS NOT APPLICABLE FOR DIALYSIS PATIENTS. CBC W/PLT COUNT & AUTO [id number] 04:44:00 Test Item Value Reference Range Comments WHITE BLOOD CELL COUNT (BEAKER) (test bjkx=589) 9.4 K/ L 3.5-10.5 RED BLOOD CELL COUNT (BEAKER) (test zvap=783) 3.36 M/ L 4.63-6.08 HEMOGLOBIN (BEAKER) (test iykc=312) 9.2 GM/DL 13.7-17.5 HEMATOCRIT (BEAKER) (test lqqm=878) 31.4 % 40.1-51.0 MEAN CORPUSCULAR VOLUME (BEAKER) (test vwsu=340) 93.5 fL 79.0-92.2 MEAN CORPUSCULAR HEMOGLOBIN (BEAKER) (test 27.4 pg 25.7-32.2 tcqp=654) MEAN CORPUSCULAR HEMOGLOBIN CONC (BEAKER) (test 29.3 GM/DL 32.3-36.5 soyv=312) RED CELL DISTRIBUTION WIDTH (BEAKER) (test 19.6 % 11.6-14.4 afkz=421) PLATELET COUNT (BEAKER) (test pszg=199) 432 K/CU MM 150-450 MEAN PLATELET VOLUME (BEAKER) (test pchy=519) 10.0 fL 9.4-12.4 NUCLEATED RED BLOOD CELLS (BEAKER) (test 0 /100 WBC 0-0 pevo=689) NEUTROPHILS RELATIVE PERCENT (BEAKER) (test 69 % kcfj=108) LYMPHOCYTES RELATIVE PERCENT (BEAKER) (test 18 % istc=687) MONOCYTES RELATIVE PERCENT (BEAKER) (test 8 % gndn=998) EOSINOPHILS RELATIVE PERCENT (BEAKER) (test 3 % jvtu=103) BASOPHILS RELATIVE PERCENT (BEAKER) (test 1 % rnaf=570) NEUTROPHILS ABSOLUTE COUNT (BEAKER) (test 6.48 K/ L 1.78-5.38 xopj=276) LYMPHOCYTES ABSOLUTE COUNT (BEAKER) (test 1.68 K/ L 1.32-3.57 jecp=837) MONOCYTES ABSOLUTE COUNT (BEAKER) (test 0.76 K/ L 0.30-0.82 uzyt=955) EOSINOPHILS ABSOLUTE COUNT (BEAKER) (test 0.29 K/ L 0.04-0.54 pjvv=247) BASOPHILS ABSOLUTE COUNT (BEAKER) (test 0.07 K/ L 0.01-0.08 hhyv=507) IMMATURE GRANULOCYTES-RELATIVE PERCENT (BEAKER) 1 % 0-1 (test rngu=3030) POCT-GLUCOSE [id number] 21:14:00 Test Item Value Reference Range Comments POC-GLUCOSE METER (BEAKER) 151 mg/dL 70-110 TESTED AT [address] (test nuiy=5527) [facility] [address] POCT-GLUCOSE [id number] 17:35:00 Test Item Value Reference Range Comments POC-GLUCOSE METER (BEAKER) 111 mg/dL 70-110 TESTED AT [address] (test aepz=6692) [facility] [address] POCT-GLUCOSE [id number] 13:31:00 Test Item Value Reference Range Comments POC-GLUCOSE METER (BEAKER) 141 mg/dL 70-[address] [facility] [address] [facility] (test rukd=9066) [facility] [address] POCT-GLUCOSE [id number] 08:31:00 Test Item Value Reference Range Comments POC-GLUCOSE METER (BEAKER) 112 mg/dL 70-[address] [facility] [address] [facility] (test ztqp=3063) [facility] [address] BASIC METABOLIC [id number] 06:01:00 Test Item Value Reference Range Comments SODIUM (BEAKER) (test 138 meq/L 136-145 erxw=277) POTASSIUM (BEAKER) (test 4.6 meq/L 3.5-5.1 tkvn=996) CHLORIDE (BEAKER) (test 109 meq/L 98-107 rjeg=450) CO2 (BEAKER) (test 21 meq/L 22-29 xhtk=072) BLOOD UREA NITROGEN 41 mg/dL 7-21 (BEAKER) (test fhwp=494) CREATININE (BEAKER) (test 1.35 mg/dL 0.57-1.25 qtqw=887) GLUCOSE RANDOM (BEAKER) 111 mg/dL 70-105 (test jhum=891) CALCIUM (BEAKER) (test 8.3 mg/dL 8.4-10.2 ofcq=589) EGFR (BEAKER) (test 52 mL/min/1.73 sq m ESTIMATED GFR IS NOT efkc=9039) ACCURATE CREATININE CLEARANCE IN PREDICTING GLOMERULAR FILTRATION RATE. ESTIMATED GFR IS NOT APPLICABLE FOR DIALYSIS PATIENTS. CBC W/PLT COUNT & AUTO [id number] 05:43:00 Test Item Value Reference Range Comments WHITE BLOOD CELL COUNT (BEAKER) (test ogwl=231) 8.9 K/ L 3.5-10.5 RED BLOOD CELL COUNT (BEAKER) (test gkug=142) 3.42 M/ L 4.63-6.08 HEMOGLOBIN (BEAKER) (test mdee=739) 9.4 GM/DL 13.7-17.5 HEMATOCRIT (BEAKER) (test ymrx=405) 33.0 % 40.1-51.0 MEAN CORPUSCULAR VOLUME (BEAKER) (test bypv=308) 96.5 fL 79.0-92.2 MEAN CORPUSCULAR HEMOGLOBIN (BEAKER) (test 27.5 pg 25.7-32.2 dnna=540) MEAN CORPUSCULAR HEMOGLOBIN CONC (BEAKER) (test 28.5 GM/DL 32.3-36.5 gznu=875) RED CELL DISTRIBUTION WIDTH (BEAKER) (test 19.4 % 11.6-14.4 pgjz=853) PLATELET COUNT (BEAKER) (test oesm=453) 420 K/CU MM 150-450 MEAN PLATELET VOLUME (BEAKER) (test tdpb=177) 10.0 fL 9.4-12.4 NUCLEATED RED BLOOD CELLS (BEAKER) (test 0 /100 WBC 0-0 tunl=967) NEUTROPHILS RELATIVE PERCENT (BEAKER) (test 69 % bbiw=364) LYMPHOCYTES RELATIVE PERCENT (BEAKER) (test 18 % bhvo=235) MONOCYTES RELATIVE PERCENT (BEAKER) (test 9 % hobg=337) EOSINOPHILS RELATIVE PERCENT (BEAKER) (test 3 % jway=906) BASOPHILS RELATIVE PERCENT (BEAKER) (test 1 % puzo=675) NEUTROPHILS ABSOLUTE COUNT (BEAKER) (test 6.09 K/ L 1.78-5.38 jowh=491) LYMPHOCYTES ABSOLUTE COUNT (BEAKER) (test 1.57 K/ L 1.32-3.57 fcdy=179) MONOCYTES ABSOLUTE COUNT (BEAKER) (test 0.77 K/ L 0.30-0.82 lder=862) EOSINOPHILS ABSOLUTE COUNT (BEAKER) (test 0.26 K/ L 0.04-0.54 uqmj=915) BASOPHILS ABSOLUTE COUNT (BEAKER) (test 0.07 K/ L 0.01-0.08 ihxd=866) IMMATURE GRANULOCYTES-RELATIVE PERCENT (BEAKER) 1 % 0-1 (test lmww=9274) POCT-GLUCOSE [id number] 22:00:00 Test Item Value Reference Range Comments POC-GLUCOSE METER (BEAKER) 126 mg/dL 70-110 TESTED AT [address] (test mtnp=6257) [facility] [address] POCT-GLUCOSE [id number] 17:08:00 Test Item Value Reference Range Comments POC-GLUCOSE METER (BEAKER) 179 mg/dL 70-110 TESTED AT [address] (test waca=9510) [facility] [address] POCT-GLUCOSE [id number] 12:10:00 Test Item Value Reference Range Comments POC-GLUCOSE METER (BEAKER) 128 mg/dL 70-[address] [facility] [address] [facility] (test yuff=1112) [facility] [address] POCT-GLUCOSE [id number] 07:38:00 Test Item Value Reference Range Comments POC-GLUCOSE METER (BEAKER) 127 mg/dL 70-[address] [facility] [address] [facility] (test weca=2083) [facility] [address] BASIC METABOLIC [id number] 04:23:00 Test Item Value Reference Range Comments SODIUM (BEAKER) (test 137 meq/L 136-145 bczk=140) POTASSIUM (BEAKER) (test 4.4 meq/L 3.5-5.1 iapf=415) CHLORIDE (BEAKER) (test 106 meq/L 98-107 deij=713) CO2 (BEAKER) (test 22 meq/L 22-29 lews=361) BLOOD UREA NITROGEN 39 mg/dL 7-21 (BEAKER) (test gkip=317) CREATININE (BEAKER) (test 1.45 mg/dL 0.57-1.25 gvzw=251) GLUCOSE RANDOM (BEAKER) 122 mg/dL 70-105 (test wrmo=434) CALCIUM (BEAKER) (test 8.2 mg/dL 8.4-10.2 xgca=962) EGFR (BEAKER) (test 48 mL/min/1.73 sq m ESTIMATED GFR IS NOT zogw=8373) ACCURATE CREATININE CLEARANCE IN PREDICTING GLOMERULAR FILTRATION RATE. ESTIMATED GFR IS NOT APPLICABLE FOR DIALYSIS PATIENTS. CBC W/PLT COUNT & AUTO [id number] 04:06:00 Test Item Value Reference Range Comments WHITE BLOOD CELL COUNT (BEAKER) (test ovoj=858) 10.4 K/ L 3.5-10.5 RED BLOOD CELL COUNT (BEAKER) (test lbfg=043) 3.33 M/ L 4.63-6.08 HEMOGLOBIN (BEAKER) (test kjff=332) 9.3 GM/DL 13.7-17.5 HEMATOCRIT (BEAKER) (test noar=830) 31.3 % 40.1-51.0 MEAN CORPUSCULAR VOLUME (BEAKER) (test rnpw=508) 94.0 fL 79.0-92.2 MEAN CORPUSCULAR HEMOGLOBIN (BEAKER) (test 27.9 pg 25.7-32.2 ldft=071) MEAN CORPUSCULAR HEMOGLOBIN CONC (BEAKER) (test 29.7 GM/DL 32.3-36.5 kyad=953) RED CELL DISTRIBUTION WIDTH (BEAKER) (test 19.0 % 11.6-14.4 owlx=075) PLATELET COUNT (BEAKER) (test dapd=487) 427 K/CU MM 150-450 MEAN PLATELET VOLUME (BEAKER) (test uhjj=920) 9.4 fL 9.4-12.4 NUCLEATED RED BLOOD CELLS (BEAKER) (test 0 /100 WBC 0-0 zuil=520) NEUTROPHILS RELATIVE PERCENT (BEAKER) (test 72 % opqy=780) LYMPHOCYTES RELATIVE PERCENT (BEAKER) (test 15 % wqhz=592) MONOCYTES RELATIVE PERCENT (BEAKER) (test 10 % cyeg=719) EOSINOPHILS RELATIVE PERCENT (BEAKER) (test 2 % nnvj=431) BASOPHILS RELATIVE PERCENT (BEAKER) (test 1 % fwrt=741) NEUTROPHILS ABSOLUTE COUNT (BEAKER) (test 7.44 K/ L 1.78-5.38 tega=272) LYMPHOCYTES ABSOLUTE COUNT (BEAKER) (test 1.55 K/ L 1.32-3.57 vqsx=266) MONOCYTES ABSOLUTE COUNT (BEAKER) (test 0.99 K/ L 0.30-0.82 rsqa=864) EOSINOPHILS ABSOLUTE COUNT (BEAKER) (test 0.24 K/ L 0.04-0.54 oyya=895) BASOPHILS ABSOLUTE COUNT (BEAKER) (test 0.05 K/ L 0.01-0.08 gynl=953) IMMATURE GRANULOCYTES-RELATIVE PERCENT (BEAKER) 1 % 0-1 (test dfca=6639) POCT-GLUCOSE [id number] 21:40:00 Test Item Value Reference Range Comments POC-GLUCOSE METER (BEAKER) 139 mg/dL 70-110 TESTED AT [address] (test nrjv=0511) [facility] [address] POCT-GLUCOSE [id number] 17:42:00 Test Item Value Reference Range Comments POC-GLUCOSE METER (BEAKER) 131 mg/dL 70-110 TESTED AT [address] (test kbqw=1591) [facility] [address] POCT-GLUCOSE [id number] 11:35:00 Test Item Value Reference Range Comments POC-GLUCOSE METER (BEAKER) 141 mg/dL 70-[address] [facility] [address] [facility] (test qwhp=1390) [facility] [address] POCT-GLUCOSE [id number] 08:03:00 Test Item Value Reference Range Comments POC-GLUCOSE METER (BEAKER) 125 mg/dL 70-[address] [facility] [address] [facility] (test oydj=8151) [facility] [address] BASIC METABOLIC [id number] 05:36:00 Test Item Value Reference Range Comments SODIUM (BEAKER) (test 138 meq/L 136-145 eidk=239) POTASSIUM (BEAKER) (test 4.5 meq/L 3.5-5.1 aswh=480) CHLORIDE (BEAKER) (test 106 meq/L 98-107 tvep=799) CO2 (BEAKER) (test 23 meq/L 22-29 lpjr=280) BLOOD UREA NITROGEN 41 mg/dL 7-21 (BEAKER) (test ovzv=341) CREATININE (BEAKER) (test 1.55 mg/dL 0.57-1.25 qpir=555) GLUCOSE RANDOM (BEAKER) 115 mg/dL 70-105 (test jjkc=786) CALCIUM (BEAKER) (test 8.5 mg/dL 8.4-10.2 jscn=492) EGFR (BEAKER) (test 44 mL/min/1.73 sq m ESTIMATED GFR IS NOT vetr=4843) ACCURATE CREATININE CLEARANCE IN PREDICTING GLOMERULAR FILTRATION RATE. ESTIMATED GFR IS NOT APPLICABLE FOR DIALYSIS PATIENTS. CBC W/PLT COUNT & AUTO [id number] 03:42:00 Test Item Value Reference Range Comments WHITE BLOOD CELL COUNT (BEAKER) (test teal=224) 10.2 K/ L 3.5-10.5 RED BLOOD CELL COUNT (BEAKER) (test oqqr=896) 3.57 M/ L 4.63-6.08 HEMOGLOBIN (BEAKER) (test kxgj=332) 10.0 GM/DL 13.7-17.5 HEMATOCRIT (BEAKER) (test wzft=557) 33.2 % 40.1-51.0 MEAN CORPUSCULAR VOLUME (BEAKER) (test eetw=160) 93.0 fL 79.0-92.2 MEAN CORPUSCULAR HEMOGLOBIN (BEAKER) (test 28.0 pg 25.7-32.2 twib=108) MEAN CORPUSCULAR HEMOGLOBIN CONC (BEAKER) (test 30.1 GM/DL 32.3-36.5 mjqd=914) RED CELL DISTRIBUTION WIDTH (BEAKER) (test 18.9 % 11.6-14.4 hovn=965) PLATELET COUNT (BEAKER) (test rdup=081) 479 K/CU MM 150-450 MEAN PLATELET VOLUME (BEAKER) (test figc=006) 10.2 fL 9.4-12.4 NUCLEATED RED BLOOD CELLS (BEAKER) (test 0 /100 WBC 0-0 jjnf=942) NEUTROPHILS RELATIVE PERCENT (BEAKER) (test 70 % pvoq=482) LYMPHOCYTES RELATIVE PERCENT (BEAKER) (test 17 % fpmr=456) MONOCYTES RELATIVE PERCENT (BEAKER) (test 8 % fggb=070) EOSINOPHILS RELATIVE PERCENT (BEAKER) (test 3 % vpzf=948) BASOPHILS RELATIVE PERCENT (BEAKER) (test 1 % qblt=094) NEUTROPHILS ABSOLUTE COUNT (BEAKER) (test 7.12 K/ L 1.78-5.38 gjgo=350) LYMPHOCYTES ABSOLUTE COUNT (BEAKER) (test 1.74 K/ L 1.32-3.57 sacx=628) MONOCYTES ABSOLUTE COUNT (BEAKER) (test 0.82 K/ L 0.30-0.82 hxuq=221) EOSINOPHILS ABSOLUTE COUNT (BEAKER) (test 0.30 K/ L 0.04-0.54 mhpw=856) BASOPHILS ABSOLUTE COUNT (BEAKER) (test 0.08 K/ L 0.01-0.08 fznt=451) IMMATURE GRANULOCYTES-RELATIVE PERCENT (BEAKER) 1 % 0-1 (test edmc=9030) POCT-GLUCOSE [id number] 21:24:00 Test Item Value Reference Range Comments POC-GLUCOSE METER (BEAKER) 137 mg/dL 70-110 TESTED AT [address] (test wviy=4526) [facility] [address] POCT-GLUCOSE [id number] 17:12:00 Test Item Value Reference Range Comments POC-GLUCOSE METER (BEAKER) 152 mg/dL 70-110 TESTED AT [address] (test sheo=3704) [facility] [address] POCT-GLUCOSE [id number] 11:57:00 Test Item Value Reference Range Comments POC-GLUCOSE METER (BEAKER) 151 mg/dL 70-110 TESTED AT [address] (test kzma=0707) [facility] [address] BASIC METABOLIC [id number] 07:24:00 Test Item Value Reference Range Comments SODIUM (BEAKER) (test 136 meq/L 136-145 wrtf=881) POTASSIUM (BEAKER) (test 4.8 meq/L 3.5-5.1 Specimen slightly hapr=709) hemolyzed CHLORIDE (BEAKER) (test 105 meq/L 98-107 vqpt=172) CO2 (BEAKER) (test 20 meq/L 22-29 rehb=309) BLOOD UREA NITROGEN 44 mg/dL 7-21 (BEAKER) (test vpkg=811) CREATININE (BEAKER) (test 1.65 mg/dL 0.57-1.25 Specimen slightly ylzt=852) hemolyzed GLUCOSE RANDOM (BEAKER) 105 mg/dL 70-105 (test kwtx=847) CALCIUM (BEAKER) (test 8.7 mg/dL 8.4-10.2 jvte=933) EGFR (BEAKER) (test 41 mL/min/1.73 sq m ESTIMATED GFR IS NOT cgtl=4649) ACCURATE CREATININE CLEARANCE IN PREDICTING GLOMERULAR FILTRATION RATE. ESTIMATED GFR IS NOT APPLICABLE FOR DIALYSIS PATIENTS. POCT-GLUCOSE [id number] 06:53:00 Test Item Value Reference Range Comments POC-GLUCOSE METER (BEAKER) 184 mg/dL 70-110 TESTED AT [address] (test yvrx=7869) [place] [id number] CBC W/PLT COUNT & AUTO [id number] 06:01:00 Test Item Value Reference Range Comments WHITE BLOOD CELL COUNT (BEAKER) (test biyq=965) 9.2 K/ L 3.5-10.5 RED BLOOD CELL COUNT (BEAKER) (test mrrh=576) 3.58 M/ L 4.63-6.08 HEMOGLOBIN (BEAKER) (test xsxt=509) 9.8 GM/DL 13.7-17.5 HEMATOCRIT (BEAKER) (test jvuh=149) 33.5 % 40.1-51.0 MEAN CORPUSCULAR VOLUME (BEAKER) (test zaen=671) 93.6 fL 79.0-92.2 MEAN CORPUSCULAR HEMOGLOBIN (BEAKER) (test 27.4 pg 25.7-32.2 dcls=054) MEAN CORPUSCULAR HEMOGLOBIN CONC (BEAKER) (test 29.3 GM/DL 32.3-36.5 qlbj=786) RED CELL DISTRIBUTION WIDTH (BEAKER) (test 18.6 % 11.6-14.4 hyab=191) PLATELET COUNT (BEAKER) (test ksrd=597) 466 K/CU MM 150-450 MEAN PLATELET VOLUME (BEAKER) (test wozo=648) 10.2 fL 9.4-12.4 NUCLEATED RED BLOOD CELLS (BEAKER) (test 0 /100 WBC 0-0 isum=123) NEUTROPHILS RELATIVE PERCENT (BEAKER) (test 71 % irlt=924) LYMPHOCYTES RELATIVE PERCENT (BEAKER) (test 16 % zgvz=298) MONOCYTES RELATIVE PERCENT (BEAKER) (test 9 % uhtu=831) EOSINOPHILS RELATIVE PERCENT (BEAKER) (test 2 % twsk=773) BASOPHILS RELATIVE PERCENT (BEAKER) (test 1 % mitu=386) NEUTROPHILS ABSOLUTE COUNT (BEAKER) (test 6.47 K/ L 1.78-5.38 lobx=317) LYMPHOCYTES ABSOLUTE COUNT (BEAKER) (test 1.46 K/ L 1.32-3.57 nawl=589) MONOCYTES ABSOLUTE COUNT (BEAKER) (test 0.85 K/ L 0.30-0.82 ugww=908) EOSINOPHILS ABSOLUTE COUNT (BEAKER) (test 0.22 K/ L 0.04-0.54 jilh=019) BASOPHILS ABSOLUTE COUNT (BEAKER) (test 0.08 K/ L 0.01-0.08 eyfj=954) IMMATURE GRANULOCYTES-RELATIVE PERCENT (BEAKER) 1 % 0-1 (test vsjh=3109) POCT-GLUCOSE [id number] 21:15:00 Test Item Value Reference Range Comments POC-GLUCOSE METER (BEAKER) 133 mg/dL 70-110 TESTED AT [address] (test nmbm=8292) [facility] [address] POCT-GLUCOSE [id number] 17:01:00 Test Item Value Reference Range Comments POC-GLUCOSE METER (BEAKER) 136 mg/dL 70-110 TESTED AT [address] (test rdkt=9247) [facility] [address] POCT-GLUCOSE [id number] 12:12:00 Test Item Value Reference Range Comments POC-GLUCOSE METER (BEAKER) 158 mg/dL 70-[address] [facility] [address] [facility] (test yiya=2990) [facility] [address] POCT-GLUCOSE [id number] 07:35:00 Test Item Value Reference Range Comments POC-GLUCOSE METER (BEAKER) 132 mg/dL 70-[address] [facility] [address] [facility] (test kiha=7948) [facility] [address] BASIC METABOLIC [id number] 05:58:00 Test Item Value Reference Range Comments SODIUM (BEAKER) (test 135 meq/L 136-145 aebu=813) POTASSIUM (BEAKER) (test 4.1 meq/L 3.5-5.1 zjty=244) CHLORIDE (BEAKER) (test 104 meq/L 98-107 xzms=355) CO2 (BEAKER) (test 22 meq/L 22-29 zzio=757) BLOOD UREA NITROGEN 41 mg/dL 7-21 (BEAKER) (test yifg=580) CREATININE (BEAKER) (test 1.60 mg/dL 0.57-1.25 zdot=287) GLUCOSE RANDOM (BEAKER) 119 mg/dL 70-105 (test unwd=069) CALCIUM (BEAKER) (test 8.3 mg/dL 8.4-10.2 quhp=428) EGFR (BEAKER) (test 42 mL/min/1.73 sq m ESTIMATED GFR IS NOT jpki=1136) ACCURATE CREATININE CLEARANCE IN PREDICTING GLOMERULAR FILTRATION RATE. ESTIMATED GFR IS NOT APPLICABLE FOR DIALYSIS PATIENTS. CBC W/PLT COUNT & AUTO [id number] 05:13:00 Test Item Value Reference Range Comments WHITE BLOOD CELL COUNT (BEAKER) (test enbp=273) 9.2 K/ L 3.5-10.5 RED BLOOD CELL COUNT (BEAKER) (test zfkq=703) 3.50 M/ L 4.63-6.08 HEMOGLOBIN (BEAKER) (test rqun=706) 9.6 GM/DL 13.7-17.5 HEMATOCRIT (BEAKER) (test mzva=307) 32.3 % 40.1-51.0 MEAN CORPUSCULAR VOLUME (BEAKER) (test rbdu=199) 92.3 fL 79.0-92.2 MEAN CORPUSCULAR HEMOGLOBIN (BEAKER) (test 27.4 pg 25.7-32.2 wlcw=441) MEAN CORPUSCULAR HEMOGLOBIN CONC (BEAKER) (test 29.7 GM/DL 32.3-36.5 zfny=078) RED CELL DISTRIBUTION WIDTH (BEAKER) (test 18.5 % 11.6-14.4 lbte=505) PLATELET COUNT (BEAKER) (test wuok=800) 447 K/CU MM 150-450 MEAN PLATELET VOLUME (BEAKER) (test hxrv=356) 10.0 fL 9.4-12.4 NUCLEATED RED BLOOD CELLS (BEAKER) (test 0 /100 WBC 0-0 gvba=548) NEUTROPHILS RELATIVE PERCENT (BEAKER) (test 72 % cngb=849) LYMPHOCYTES RELATIVE PERCENT (BEAKER) (test 14 % dwyc=614) MONOCYTES RELATIVE PERCENT (BEAKER) (test 10 % tmqn=418) EOSINOPHILS RELATIVE PERCENT (BEAKER) (test 3 % bxbg=198) BASOPHILS RELATIVE PERCENT (BEAKER) (test 1 % owdm=784) NEUTROPHILS ABSOLUTE COUNT (BEAKER) (test 6.64 K/ L 1.78-5.38 podz=733) LYMPHOCYTES ABSOLUTE COUNT (BEAKER) (test 1.31 K/ L 1.32-3.57 voum=783) MONOCYTES ABSOLUTE COUNT (BEAKER) (test 0.88 K/ L 0.30-0.82 dike=127) EOSINOPHILS ABSOLUTE COUNT (BEAKER) (test 0.26 K/ L 0.04-0.54 yrgz=823) BASOPHILS ABSOLUTE COUNT (BEAKER) (test 0.05 K/ L 0.01-0.08 cjjl=740) IMMATURE GRANULOCYTES-RELATIVE PERCENT (BEAKER) 1 % 0-1 (test ymsm=6919) POCT-GLUCOSE [id number] 21:04:00 Test Item Value Reference Range Comments POC-GLUCOSE METER (BEAKER) 146 mg/dL 70-110 TESTED AT [address] (test lbhs=1896) [facility] [address] POCT-GLUCOSE [id number] 17:46:00 Test Item Value Reference Range Comments POC-GLUCOSE METER (BEAKER) 131 mg/dL 70-110 TESTED AT [address] (test ikpl=3335) [facility] [address] POCT-GLUCOSE [id number] 12:39:00 Test Item Value Reference Range Comments POC-GLUCOSE METER (BEAKER) 148 mg/dL 70-[address] [facility] [address] [facility] (test aomw=2572) [facility] [address] POCT-GLUCOSE [id number] 07:56:00 Test Item Value Reference Range Comments POC-GLUCOSE METER (BEAKER) 128 mg/dL 70-[address] [facility] [address] [facility] (test tpyv=6092) [facility] [address] BASIC METABOLIC [id number] 05:23:00 Test Item Value Reference Range Comments SODIUM (BEAKER) (test 136 meq/L 136-145 zejd=132) POTASSIUM (BEAKER) (test 4.1 meq/L 3.5-5.1 hplf=679) CHLORIDE (BEAKER) (test 104 meq/L 98-107 kulg=913) CO2 (BEAKER) (test 22 meq/L 22-29 fvhq=599) BLOOD UREA NITROGEN 38 mg/dL 7-21 (BEAKER) (test vczx=273) CREATININE (BEAKER) (test 1.66 mg/dL 0.57-1.25 qerx=107) GLUCOSE RANDOM (BEAKER) 114 mg/dL 70-105 (test vggt=132) CALCIUM (BEAKER) (test 8.3 mg/dL 8.4-10.2 mfhh=427) EGFR (BEAKER) (test 41 mL/min/1.73 sq m ESTIMATED GFR IS NOT zrnm=1232) ACCURATE CREATININE CLEARANCE IN PREDICTING GLOMERULAR FILTRATION RATE. ESTIMATED GFR IS NOT APPLICABLE FOR DIALYSIS PATIENTS. CBC W/PLT COUNT & AUTO [id number] 05:05:00 Test Item Value Reference Range Comments WHITE BLOOD CELL COUNT (BEAKER) (test tmjv=185) 9.7 K/ L 3.5-10.5 RED BLOOD CELL COUNT (BEAKER) (test havx=912) 3.44 M/ L 4.63-6.08 HEMOGLOBIN (BEAKER) (test jocw=498) 9.6 GM/DL 13.7-17.5 HEMATOCRIT (BEAKER) (test hzvt=510) 32.2 % 40.1-51.0 MEAN CORPUSCULAR VOLUME (BEAKER) (test tgim=354) 93.6 fL 79.0-92.2 MEAN CORPUSCULAR HEMOGLOBIN (BEAKER) (test 27.9 pg 25.7-32.2 alfw=675) MEAN CORPUSCULAR HEMOGLOBIN CONC (BEAKER) (test 29.8 GM/DL 32.3-36.5 awrj=031) RED CELL DISTRIBUTION WIDTH (BEAKER) (test 18.3 % 11.6-14.4 xifw=625) PLATELET COUNT (BEAKER) (test zzmk=750) 429 K/CU MM 150-450 MEAN PLATELET VOLUME (BEAKER) (test wdds=698) 9.9 fL 9.4-12.4 NUCLEATED RED BLOOD CELLS (BEAKER) (test 0 /100 WBC 0-0 qsta=538) NEUTROPHILS RELATIVE PERCENT (BEAKER) (test 73 % gkja=128) LYMPHOCYTES RELATIVE PERCENT (BEAKER) (test 14 % gbej=049) MONOCYTES RELATIVE PERCENT (BEAKER) (test 10 % gcgx=640) EOSINOPHILS RELATIVE PERCENT (BEAKER) (test 3 % avjs=588) BASOPHILS RELATIVE PERCENT (BEAKER) (test 1 % msma=977) NEUTROPHILS ABSOLUTE COUNT (BEAKER) (test 7.02 K/ L 1.78-5.38 uade=157) LYMPHOCYTES ABSOLUTE COUNT (BEAKER) (test 1.33 K/ L 1.32-3.57 icbz=808) MONOCYTES ABSOLUTE COUNT (BEAKER) (test 0.92 K/ L 0.30-0.82 mwlz=009) EOSINOPHILS ABSOLUTE COUNT (BEAKER) (test 0.25 K/ L 0.04-0.54 twya=331) BASOPHILS ABSOLUTE COUNT (BEAKER) (test 0.06 K/ L 0.01-0.08 lfyg=910) IMMATURE GRANULOCYTES-RELATIVE PERCENT (BEAKER) 1 % 0-1 (test jztx=0415) POCT-GLUCOSE [id number] 21:28:00 Test Item Value Reference Range Comments POC-GLUCOSE METER (BEAKER) 125 mg/dL 70-110 TESTED AT [address] (test yrrz=4347) [facility] [address] POCT-GLUCOSE [id number] 19:02:00 Test Item Value Reference Range Comments POC-GLUCOSE METER (BEAKER) 129 mg/dL 70-110 TESTED AT [address] (test jgsx=9736) [facility] [address] POCT-GLUCOSE [id number] 14:06:00 Test Item Value Reference Range Comments POC-GLUCOSE METER (BEAKER) 162 mg/dL 70-[address] [facility] [address] [facility] (test twqz=0945) [facility] [address] POCT-GLUCOSE [id number] 08:16:00 Test Item Value Reference Range Comments POC-GLUCOSE METER (BEAKER) 140 mg/dL 70-[address] [facility] [address] [facility] (test tfwb=8021) [facility] [address] BASIC METABOLIC [id number] 05:17:00 Test Item Value Reference Range Comments SODIUM (BEAKER) (test 137 meq/L 136-145 mrks=075) POTASSIUM (BEAKER) (test 3.8 meq/L 3.5-5.1 bxil=827) CHLORIDE (BEAKER) (test 104 meq/L 98-107 ofjl=928) CO2 (BEAKER) (test 22 meq/L 22-29 jvrp=236) BLOOD UREA NITROGEN 37 mg/dL 7-21 (BEAKER) (test mzdb=646) CREATININE (BEAKER) (test 1.81 mg/dL 0.57-1.25 mkct=912) GLUCOSE RANDOM (BEAKER) 118 mg/dL 70-105 (test tdbm=291) CALCIUM (BEAKER) (test 8.5 mg/dL 8.4-10.2 qnou=358) EGFR (BEAKER) (test 37 mL/min/1.73 sq m ESTIMATED GFR IS NOT iseb=5666) ACCURATE CREATININE CLEARANCE IN PREDICTING GLOMERULAR FILTRATION RATE. ESTIMATED GFR IS NOT APPLICABLE FOR DIALYSIS PATIENTS. CBC W/PLT COUNT & AUTO [id number] 04:55:00 Test Item Value Reference Range Comments WHITE BLOOD CELL COUNT (BEAKER) (test zgcu=048) 10.4 K/ L 3.5-10.5 RED BLOOD CELL COUNT (BEAKER) (test jvsq=260) 3.42 M/ L 4.63-6.08 HEMOGLOBIN (BEAKER) (test nunp=477) 9.6 GM/DL 13.7-17.5 HEMATOCRIT (BEAKER) (test dudh=083) 31.9 % 40.1-51.0 MEAN CORPUSCULAR VOLUME (BEAKER) (test cwti=294) 93.3 fL 79.0-92.2 MEAN CORPUSCULAR HEMOGLOBIN (BEAKER) (test 28.1 pg 25.7-32.2 klpa=028) MEAN CORPUSCULAR HEMOGLOBIN CONC (BEAKER) (test 30.1 GM/DL 32.3-36.5 fnyj=324) RED CELL DISTRIBUTION WIDTH (BEAKER) (test 18.4 % 11.6-14.4 xked=220) PLATELET COUNT (BEAKER) (test gjer=660) 453 K/CU MM 150-450 MEAN PLATELET VOLUME (BEAKER) (test dfft=899) 10.0 fL 9.4-12.4 NUCLEATED RED BLOOD CELLS (BEAKER) (test 0 /100 WBC 0-0 dzkf=436) NEUTROPHILS RELATIVE PERCENT (BEAKER) (test 74 % xzwp=665) LYMPHOCYTES RELATIVE PERCENT (BEAKER) (test 13 % gtfh=166) MONOCYTES RELATIVE PERCENT (BEAKER) (test 9 % rqlb=609) EOSINOPHILS RELATIVE PERCENT (BEAKER) (test 3 % jhhi=574) BASOPHILS RELATIVE PERCENT (BEAKER) (test 0 % pllc=137) NEUTROPHILS ABSOLUTE COUNT (BEAKER) (test 7.63 K/ L 1.78-5.38 kord=847) LYMPHOCYTES ABSOLUTE COUNT (BEAKER) (test 1.35 K/ L 1.32-3.57 isep=798) MONOCYTES ABSOLUTE COUNT (BEAKER) (test 0.97 K/ L 0.30-0.82 ueqe=660) EOSINOPHILS ABSOLUTE COUNT (BEAKER) (test 0.27 K/ L 0.04-0.54 mhmo=492) BASOPHILS ABSOLUTE COUNT (BEAKER) (test 0.04 K/ L 0.01-0.08 jcmq=530) IMMATURE GRANULOCYTES-RELATIVE PERCENT (BEAKER) 1 % 0-1 (test kjgv=4053) POCT-GLUCOSE [id number] 22:33:00 Test Item Value Reference Range Comments POC-GLUCOSE METER (BEAKER) 165 mg/dL 70-110 TESTED AT [address] (test xtfk=4773) [facility] [address] POCT-GLUCOSE [id number] 16:58:00 Test Item Value Reference Range Comments POC-GLUCOSE METER (BEAKER) 126 mg/dL 70-110 TESTED AT [address] (test potm=7998) [facility] [address] POCT-GLUCOSE [id number] 11:51:00 Test Item Value Reference Range Comments POC-GLUCOSE METER (BEAKER) 209 mg/dL 70-110 TESTED AT [place] [id number] [facility] (test zgly=1862) [facility] [address] POCT-GLUCOSE [id number] 08:03:00 Test Item Value Reference Range Comments POC-GLUCOSE METER (BEAKER) 150 mg/dL 70-[address] [facility] [address] [facility] (test awrb=7015) [facility] [address] [id number] 07:03:00 Test Item Value Reference Range Comments MAGNESIUM (BEAKER) (test 2.1 mg/dL 1.6-2.6 Specimen slightly hemolyzed etmf=617) BASIC METABOLIC [id number] 07:03:00 Test Item Value Reference Range Comments SODIUM (BEAKER) (test 135 meq/L 136-145 ewgt=904) POTASSIUM (BEAKER) (test 4.2 meq/L 3.5-5.1 Specimen slightly dwvc=448) hemolyzed CHLORIDE (BEAKER) (test 101 meq/L 98-107 hrtx=593) CO2 (BEAKER) (test 24 meq/L 22-29 cvwp=049) BLOOD UREA NITROGEN 35 mg/dL 7-21 (BEAKER) (test lmfu=462) CREATININE (BEAKER) (test 1.71 mg/dL 0.57-1.25 Specimen slightly izlk=012) hemolyzed GLUCOSE RANDOM (BEAKER) 125 mg/dL 70-105 (test jltu=716) CALCIUM (BEAKER) (test 8.4 mg/dL 8.4-10.2 fjft=618) EGFR (BEAKER) (test 39 mL/min/1.73 sq m ESTIMATED GFR IS NOT ymsm=7250) ACCURATE CREATININE CLEARANCE IN PREDICTING GLOMERULAR FILTRATION RATE. ESTIMATED GFR IS NOT APPLICABLE FOR DIALYSIS PATIENTS. CBC W/PLT COUNT & AUTO [id number] 06:22:00 Test Item Value Reference Range Comments WHITE BLOOD CELL COUNT (BEAKER) (test rvzf=697) 9.8 K/ L 3.5-10.5 RED BLOOD CELL COUNT (BEAKER) (test sprz=562) 3.53 M/ L 4.63-6.08 HEMOGLOBIN (BEAKER) (test hcno=889) 9.6 GM/DL 13.7-17.5 HEMATOCRIT (BEAKER) (test ajfq=169) 32.8 % 40.1-51.0 MEAN CORPUSCULAR VOLUME (BEAKER) (test fxnx=729) 92.9 fL 79.0-92.2 MEAN CORPUSCULAR HEMOGLOBIN (BEAKER) (test 27.2 pg 25.7-32.2 llzp=070) MEAN CORPUSCULAR HEMOGLOBIN CONC (BEAKER) (test 29.3 GM/DL 32.3-36.5 jwjr=389) RED CELL DISTRIBUTION WIDTH (BEAKER) (test 18.3 % 11.6-14.4 mzdh=869) PLATELET COUNT (BEAKER) (test amnq=721) 482 K/CU MM 150-450 MEAN PLATELET VOLUME (BEAKER) (test cljw=616) 9.9 fL 9.4-12.4 NUCLEATED RED BLOOD CELLS (BEAKER) (test 0 /100 WBC 0-0 zrvj=618) NEUTROPHILS RELATIVE PERCENT (BEAKER) (test 72 % ggyl=041) LYMPHOCYTES RELATIVE PERCENT (BEAKER) (test 13 % xujx=560) MONOCYTES RELATIVE PERCENT (BEAKER) (test 10 % uvee=594) EOSINOPHILS RELATIVE PERCENT (BEAKER) (test 3 % mdag=775) BASOPHILS RELATIVE PERCENT (BEAKER) (test 1 % lvyc=556) NEUTROPHILS ABSOLUTE COUNT (BEAKER) (test 6.97 K/ L 1.78-5.38 wggm=818) LYMPHOCYTES ABSOLUTE COUNT (BEAKER) (test 1.31 K/ L 1.32-3.57 tonn=924) MONOCYTES ABSOLUTE COUNT (BEAKER) (test 0.97 K/ L 0.30-0.82 trtb=535) EOSINOPHILS ABSOLUTE COUNT (BEAKER) (test 0.31 K/ L 0.04-0.54 iiso=129) BASOPHILS ABSOLUTE COUNT (BEAKER) (test 0.06 K/ L 0.01-0.08 vqwl=271) IMMATURE GRANULOCYTES-RELATIVE PERCENT (BEAKER) 1 % 0-1 (test upde=1576) ANAEROBIC [id number] 03:41:00 Test Item Value Reference Range Comments CULTURE (BEAKER) (test <1+ Anaerobic gram positive dbzb=3573) bacilliNon-viable for identification ANAEROBIC [id number] 03:38:00 Test Item Value Reference Range Comments CULTURE (BEAKER) (test oqgc=2100) 2+ Bacteroides fragilis group POCT-GLUCOSE [id number] 22:50:00 Test Item Value Reference Range Comments POC-GLUCOSE METER (BEAKER) 151 mg/dL 70-110 TESTED AT [address] (test etub=2868) [facility] [address] POCT-GLUCOSE [id number] 17:47:00 Test Item Value Reference Range Comments POC-GLUCOSE METER (BEAKER) 165 mg/dL 70-110 TESTED AT [address] (test vbvz=6212) [facility] [address] POCT-GLUCOSE [id number] 12:57:00 Test Item Value Reference Range Comments POC-GLUCOSE METER (BEAKER) 122 mg/dL 70-110 TESTED AT [address] (test ozqv=5035) [facility] [address] POCT-GLUCOSE [id number] 09:14:00 Test Item Value Reference Range Comments POC-GLUCOSE METER (BEAKER) 164 mg/dL 70-110 TESTED AT [address] (test lufq=0113) [facility] [address] BASIC METABOLIC [id number] 04:07:00 Test Item Value Reference Range Comments SODIUM (BEAKER) (test 135 meq/L 136-145 cagn=094) POTASSIUM (BEAKER) (test 3.7 meq/L 3.5-5.1 diyo=143) CHLORIDE (BEAKER) (test 101 meq/L 98-107 atnc=048) CO2 (BEAKER) (test 24 meq/L 22-29 oivb=206) BLOOD UREA NITROGEN 36 mg/dL 7-21 (BEAKER) (test apqb=676) CREATININE (BEAKER) (test 1.68 mg/dL 0.57-1.25 sefs=425) GLUCOSE RANDOM (BEAKER) 112 mg/dL 70-105 (test aten=660) CALCIUM (BEAKER) (test 8.2 mg/dL 8.4-10.2 kdhj=536) EGFR (BEAKER) (test 40 mL/min/1.73 sq m ESTIMATED GFR IS NOT ujsk=9309) ACCURATE CREATININE CLEARANCE IN PREDICTING GLOMERULAR FILTRATION RATE. ESTIMATED GFR IS NOT APPLICABLE FOR DIALYSIS PATIENTS. CBC W/PLT COUNT & AUTO [id number] 03:48:00 Test Item Value Reference Range Comments WHITE BLOOD CELL COUNT (BEAKER) (test nsqk=591) 10.4 K/ L 3.5-10.5 RED BLOOD CELL COUNT (BEAKER) (test ovjd=750) 3.37 M/ L 4.63-6.08 HEMOGLOBIN (BEAKER) (test kyju=367) 9.4 GM/DL 13.7-17.5 HEMATOCRIT (BEAKER) (test jmma=174) 31.1 % 40.1-51.0 MEAN CORPUSCULAR VOLUME (BEAKER) (test kwtv=333) 92.3 fL 79.0-92.2 MEAN CORPUSCULAR HEMOGLOBIN (BEAKER) (test 27.9 pg 25.7-32.2 sszn=433) MEAN CORPUSCULAR HEMOGLOBIN CONC (BEAKER) (test 30.2 GM/DL 32.3-36.5 niaq=632) RED CELL DISTRIBUTION WIDTH (BEAKER) (test 17.9 % 11.6-14.4 iufk=524) PLATELET COUNT (BEAKER) (test dkrj=286) 461 K/CU MM 150-450 MEAN PLATELET VOLUME (BEAKER) (test htqw=754) 9.5 fL 9.4-12.4 NUCLEATED RED BLOOD CELLS (BEAKER) (test 0 /100 WBC 0-0 ikbb=639) NEUTROPHILS RELATIVE PERCENT (BEAKER) (test 72 % mgrg=085) LYMPHOCYTES RELATIVE PERCENT (BEAKER) (test 13 % enve=373) MONOCYTES RELATIVE PERCENT (BEAKER) (test 10 % bbmp=584) EOSINOPHILS RELATIVE PERCENT (BEAKER) (test 3 % hhip=633) BASOPHILS RELATIVE PERCENT (BEAKER) (test 1 % rvyu=381) NEUTROPHILS ABSOLUTE COUNT (BEAKER) (test 7.51 K/ L 1.78-5.38 iqht=520) LYMPHOCYTES ABSOLUTE COUNT (BEAKER) (test 1.35 K/ L 1.32-3.57 zdgw=336) MONOCYTES ABSOLUTE COUNT (BEAKER) (test 1.03 K/ L 0.30-0.82 zwva=021) EOSINOPHILS ABSOLUTE COUNT (BEAKER) (test 0.32 K/ L 0.04-0.54 nfrq=613) BASOPHILS ABSOLUTE COUNT (BEAKER) (test 0.05 K/ L 0.01-0.08 gzfc=099) IMMATURE GRANULOCYTES-RELATIVE PERCENT (BEAKER) 1 % 0-1 (test zucs=8272) BLOOD [id number] 00:00:00 Test Item Value Reference Range Comments CULTURE (BEAKER) (test eweo=5130) No growth in 5 days BLOOD [id number] 00:00:00 Test Item Value Reference Range Comments CULTURE (BEAKER) (test hblf=3881) No growth in 5 days POCT-GLUCOSE [id number] 21:35:00 Test Item Value Reference Range Comments POC-GLUCOSE METER (BEAKER) 135 mg/dL 70-110 TESTED AT [address] (test wvoe=4083) [facility] [address] POCT-GLUCOSE [id number] 17:27:00 Test Item Value Reference Range Comments POC-GLUCOSE METER (BEAKER) 192 mg/dL 70-110 TESTED AT [address] (test xwct=1359) [place] [id number] POCT-GLUCOSE [id number] 12:19:00 Test Item Value Reference Range Comments POC-GLUCOSE METER (BEAKER) 200 mg/dL 70-110 TESTED AT [address] (test bakl=2635) [place] [address] RAD, CHEST, 1 VIEW, NON [id number] 11:22:00Reason for exam:->shortness of breathFINAL REPORT Comparison: 09/06/2017 TECHNIQUE: Single view of the chest FINDINGS: Scattered atelectasis and/or scarring. There may be small left pleural effusion with adjacent airspace disease. Cardiac silhouette is prominent. IMPRESSION:. No significant interval change. Signed: Emerson Palacios MDReport Verified Date/Time: 09/07/2017 11:22:01 Reading Location: [address] Transitional Reading Room CBC W/PLT COUNT & AUTO [id number] 10:35:00 Test Item Value Reference Range Comments WHITE BLOOD CELL COUNT (BEAKER) (test rvga=406) 12.5 K/ L 3.5-10.5 RED BLOOD CELL COUNT (BEAKER) (test ueqa=751) 3.71 M/ L 4.63-6.08 HEMOGLOBIN (BEAKER) (test lika=342) 10.5 GM/DL 13.7-17.5 HEMATOCRIT (BEAKER) (test kuib=849) 34.8 % 40.1-51.0 MEAN CORPUSCULAR VOLUME (BEAKER) (test jjni=903) 93.8 fL 79.0-92.2 MEAN CORPUSCULAR HEMOGLOBIN (BEAKER) (test 28.3 pg 25.7-32.2 wpxt=650) MEAN CORPUSCULAR HEMOGLOBIN CONC (BEAKER) (test 30.2 GM/DL 32.3-36.5 vsnq=268) RED CELL DISTRIBUTION WIDTH (BEAKER) (test 18.2 % 11.6-14.4 ihfg=975) PLATELET COUNT (BEAKER) (test lqcp=546) 497 K/CU MM 150-450 MEAN PLATELET VOLUME (BEAKER) (test fynd=423) 9.6 fL 9.4-12.4 NUCLEATED RED BLOOD CELLS (BEAKER) (test 0 /100 WBC 0-0 gadz=114) NEUTROPHILS RELATIVE PERCENT (BEAKER) (test 79 % nxhs=702) LYMPHOCYTES RELATIVE PERCENT (BEAKER) (test 9 % mdvf=063) MONOCYTES RELATIVE PERCENT (BEAKER) (test 7 % uaqp=599) EOSINOPHILS RELATIVE PERCENT (BEAKER) (test 2 % bfvz=884) BASOPHILS RELATIVE PERCENT (BEAKER) (test 0 % qraj=846) NEUTROPHILS ABSOLUTE COUNT (BEAKER) (test 9.94 K/ L 1.78-5.38 awog=208) LYMPHOCYTES ABSOLUTE COUNT (BEAKER) (test 1.16 K/ L 1.32-3.57 akuz=802) MONOCYTES ABSOLUTE COUNT (BEAKER) (test 0.93 K/ L 0.30-0.82 ymdf=900) EOSINOPHILS ABSOLUTE COUNT (BEAKER) (test 0.26 K/ L 0.04-0.54 bkgq=733) BASOPHILS ABSOLUTE COUNT (BEAKER) (test 0.05 K/ L 0.01-0.08 dodd=973) IMMATURE GRANULOCYTES-RELATIVE PERCENT (BEAKER) 1 % 0-1 (test aqip=1993) POCT-GLUCOSE [id number] 07:25:00 Test Item Value Reference Range Comments POC-GLUCOSE METER (BEAKER) 139 mg/dL 70-[address] [facility] [address] [facility] (test qoxx=1221) [facility] [address] [id number] 04:19:00 Test Item Value Reference Range Comments MAGNESIUM (BEAKER) (test 2.0 mg/dL 1.6-2.6 Specimen slightly hemolyzed hijv=569) [id number] 04:19:00 Test Item Value Reference Range Comments PHOSPHORUS (BEAKER) (test 3.7 mg/dL 2.3-4.7 Specimen slightly hemolyzed poes=513) BASIC METABOLIC [id number] 04:19:00 Test Item Value Reference Range Comments SODIUM (BEAKER) (test 134 meq/L 136-145 xwin=556) POTASSIUM (BEAKER) (test 4.5 meq/L 3.5-5.1 Specimen slightly kfvl=222) hemolyzed CHLORIDE (BEAKER) (test 102 meq/L 98-107 mmol=585) CO2 (BEAKER) (test 16 meq/L 22-29 ebta=675) BLOOD UREA NITROGEN 40 mg/dL 7-21 (BEAKER) (test hpww=225) CREATININE (BEAKER) (test 1.94 mg/dL 0.57-1.25 Specimen slightly gggb=902) hemolyzed GLUCOSE RANDOM (BEAKER) 107 mg/dL 70-105 (test grqj=418) CALCIUM (BEAKER) (test 8.5 mg/dL 8.4-10.2 gtzp=740) EGFR (BEAKER) (test 34 mL/min/1.73 sq m ESTIMATED GFR IS NOT lwqr=9345) ACCURATE CREATININE CLEARANCE IN PREDICTING GLOMERULAR FILTRATION RATE. ESTIMATED GFR IS NOT APPLICABLE FOR DIALYSIS PATIENTS. POCT-GLUCOSE [id number] 21:41:00 Test Item Value Reference Range Comments POC-GLUCOSE METER (BEAKER) 148 mg/dL 70-110 TESTED AT [address] (test kyah=1097) [place] [id number] VANCOMYCIN LEVEL, [id number] 13:28:00 Test Item Value Reference Range Comments VANCOMYCIN RANDOM (BEAKER) (test plyy=050) 19.2 ug/mL Reference Range: No NormalsPOCT-GLUCOSE [id number] 12:59:00 Test Item Value Reference Range Comments POC-GLUCOSE METER (BEAKER) 129 mg/dL 70-110 TESTED AT [place] [id number] [facility] (test hkbe=9281) [place] [address] RAD, CHEST, 1 VIEW, NON [id number] 08:26:00Reason for exam:->shortness of breathFINAL REPORT HISTORY : shortness of breath. Comparison: 09/05/2017 Comment: Single portable view of the chest was obtained. The cardiac silhouette size is enlarged. There is a tortuous/ectatic thoracic aorta. No pneumothorax is visualized. There may be small left-sided pleural effusion. There are findings of pulmonary venous congestion. Interstitial prominence may represent interstitial edema. There is some left basilar airspace disease/consolidation. Signed: Tiffanie Woods MDReport Verified Date/Time : 09/06/2017 08:26:23 Reading Location: [facility] C013T Transitional Reading Room POCT- GLUCOSE [id number] 08:17:00 Test Item Value Reference Range Comments POC-GLUCOSE METER (BEAKER) 124 mg/dL 70-[address] [facility] [address] [facility] (test mrys=5050) [facility] [address] CBC W/PLT COUNT & AUTO [id number] 05:36:00 Test Item Value Reference Range Comments WHITE BLOOD CELL COUNT (BEAKER) (test gjmj=229) 10.3 K/ L 3.5-10.5 RED BLOOD CELL COUNT (BEAKER) (test mmzk=241) 3.41 M/ L 4.63-6.08 HEMOGLOBIN (BEAKER) (test ibsd=971) 9.4 GM/DL 13.7-17.5 HEMATOCRIT (BEAKER) (test upvl=256) 31.5 % 40.1-51.0 MEAN CORPUSCULAR VOLUME (BEAKER) (test lovk=969) 92.4 fL 79.0-92.2 MEAN CORPUSCULAR HEMOGLOBIN (BEAKER) (test 27.6 pg 25.7-32.2 pets=141) MEAN CORPUSCULAR HEMOGLOBIN CONC (BEAKER) (test 29.8 GM/DL 32.3-36.5 ynbt=703) RED CELL DISTRIBUTION WIDTH (BEAKER) (test 18.5 % 11.6-14.4 qxuy=852) PLATELET COUNT (BEAKER) (test jpvg=157) 511 K/CU MM 150-450 MEAN PLATELET VOLUME (BEAKER) (test xwrq=990) 9.9 fL 9.4-12.4 NUCLEATED RED BLOOD CELLS (BEAKER) (test 0 /100 WBC 0-0 zgch=642) NEUTROPHILS RELATIVE PERCENT (BEAKER) (test 73 % vplw=070) LYMPHOCYTES RELATIVE PERCENT (BEAKER) (test 12 % refi=040) MONOCYTES RELATIVE PERCENT (BEAKER) (test 10 % xpmm=946) EOSINOPHILS RELATIVE PERCENT (BEAKER) (test 2 % drpo=105) BASOPHILS RELATIVE PERCENT (BEAKER) (test 1 % koox=190) NEUTROPHILS ABSOLUTE COUNT (BEAKER) (test 7.50 K/ L 1.78-5.38 unop=412) LYMPHOCYTES ABSOLUTE COUNT (BEAKER) (test 1.20 K/ L 1.32-3.57 nvtg=671) MONOCYTES ABSOLUTE COUNT (BEAKER) (test 1.04 K/ L 0.30-0.82 iacw=826) EOSINOPHILS ABSOLUTE COUNT (BEAKER) (test 0.24 K/ L 0.04-0.54 hpbx=548) BASOPHILS ABSOLUTE COUNT (BEAKER) (test 0.05 K/ L 0.01-0.08 mwfp=729) IMMATURE GRANULOCYTES-RELATIVE PERCENT (BEAKER) 3 % 0-1 (test lvwm=3933) [id number] 05:28:00 Test Item Value Reference Range Comments PHOSPHORUS (BEAKER) (test folv=027) 3.4 mg/dL 2.3-4.7 [id number] 05:28:00 Test Item Value Reference Range Comments MAGNESIUM (BEAKER) (test lkfc=547) 2.0 mg/dL 1.6-2.6 BASIC METABOLIC [id number] 05:28:00 Test Item Value Reference Range Comments SODIUM (BEAKER) (test 137 meq/L 136-145 eftc=448) POTASSIUM (BEAKER) (test 4.0 meq/L 3.5-5.1 zumb=117) CHLORIDE (BEAKER) (test 97 meq/L 98-107 ajve=622) CO2 (BEAKER) (test 28 meq/L 22-29 zoxk=461) BLOOD UREA NITROGEN 37 mg/dL 7-21 (BEAKER) (test xuta=686) CREATININE (BEAKER) (test 2.02 mg/dL 0.57-1.25 txua=573) GLUCOSE RANDOM (BEAKER) 117 mg/dL 70-105 (test tzqa=466) CALCIUM (BEAKER) (test 8.4 mg/dL 8.4-10.2 sbrw=404) EGFR (BEAKER) (test 32 mL/min/1.73 sq m ESTIMATED GFR IS NOT krzl=9761) ACCURATE CREATININE CLEARANCE IN PREDICTING GLOMERULAR FILTRATION RATE. ESTIMATED GFR IS NOT APPLICABLE FOR DIALYSIS PATIENTS. [id number] 22:02:00 Test Item Value Reference Range Comments MAGNESIUM (BEAKER) (test jqcf=780) 2.1 mg/dL 1.6-2.6 BASIC METABOLIC [id number] 22:02:00 Test Item Value Reference Range Comments SODIUM (BEAKER) (test 136 meq/L 136-145 mnxm=303) POTASSIUM (BEAKER) (test 4.3 meq/L 3.5-5.1 gheh=651) CHLORIDE (BEAKER) (test 99 meq/L 98-107 pssd=171) CO2 (BEAKER) (test 25 meq/L 22-29 jwuj=234) BLOOD UREA NITROGEN 36 mg/dL 7-21 (BEAKER) (test rpzx=955) CREATININE (BEAKER) (test 1.95 mg/dL 0.57-1.25 sfnz=622) GLUCOSE RANDOM (BEAKER) 133 mg/dL 70-105 (test oreb=202) CALCIUM (BEAKER) (test 8.3 mg/dL 8.4-10.2 wqie=000) EGFR (BEAKER) (test 34 mL/min/1.73 sq m ESTIMATED GFR IS NOT jlkn=0602) ACCURATE CREATININE CLEARANCE IN PREDICTING GLOMERULAR FILTRATION RATE. ESTIMATED GFR IS NOT APPLICABLE FOR DIALYSIS PATIENTS. POCT-GLUCOSE [id number] 21:42:00 Test Item Value Reference Range Comments POC-GLUCOSE METER (BEAKER) 125 mg/dL 70-110 TESTED AT [address] (test awvj=0721) [facility] [address] POCT-GLUCOSE [id number] 18:41:00 Test Item Value Reference Range Comments POC-GLUCOSE METER (BEAKER) 150 mg/dL 70-110 TESTED AT [address] (test ovrt=1064) [facility] [address] POCT-GLUCOSE [id number] 17:53:00 Test Item Value Reference Range Comments POC-GLUCOSE METER (BEAKER) 127 mg/dL 70-110 TESTED AT [place] [address] [facility] (test jkar=4216) [facility] [address] VANCOMYCIN LEVEL, [id number] 15:24:00 Test Item Value Reference Range Comments VANCOMYCIN TROUGH (BEAKER) (test yacp=444) 27.4 ug/mL 10.0-20.0 Please draw trough 30 minutes prior to vancomycin dose on 09/05.BASIC METABOLIC [id number] 12:57:00 Test Item Value Reference Range Comments SODIUM (BEAKER) (test 136 meq/L 136-145 szxs=879) POTASSIUM (BEAKER) (test 3.9 meq/L 3.5-5.1 ghop=387) CHLORIDE (BEAKER) (test 100 meq/L 98-107 kigz=132) CO2 (BEAKER) (test 24 meq/L 22-29 diwg=005) BLOOD UREA NITROGEN 34 mg/dL 7-21 (BEAKER) (test gfgj=369) CREATININE (BEAKER) (test 2.22 mg/dL 0.57-1.25 hbfi=151) GLUCOSE RANDOM (BEAKER) 123 mg/dL 70-105 (test qnwx=807) CALCIUM (BEAKER) (test 8.4 mg/dL 8.4-10.2 nqkn=838) EGFR (BEAKER) (test 29 mL/min/1.73 sq m ESTIMATED GFR IS NOT rftn=2654) ACCURATE CREATININE CLEARANCE IN PREDICTING GLOMERULAR FILTRATION RATE. ESTIMATED GFR IS NOT APPLICABLE FOR DIALYSIS PATIENTS. [id number] 12:46:00 Test Item Value Reference Range Comments MAGNESIUM (BEAKER) (test pqoa=483) 2.1 mg/dL 1.6-2.6 POCT-GLUCOSE [id number] 09:45:00 Test Item Value Reference Range Comments POC-GLUCOSE METER (BEAKER) 134 mg/dL 70-110 TESTED AT [address] (test zxrp=5445) [facility] [id number] RAD, CHEST, 1 VIEW, NON [id number] 08:44:00Reason for exam:->shortness of breathFINAL REPORT Chest one view INDICATION: Shortness of breath COMPARISON: 09/04/2017 IMPRESSION: Two frontal images of the chest are provided. The cardiac silhouette is enlarged. Mediastinal widening is stable with median sternotomy changes. Pulmonary edema appears decreased and dependent pleural effusions have likely redistributed with stable left retrocardiac consolidation or atelectasis. No pneumothorax is seen. Signed: Harriett Garnica MDReport Verified Date/Time: 09/05/2017 08:44:03 Reading Location: [facility] Radiology Reading Room URINE [id number] 08:13:00 Test Item Value Reference Range Comments CULTURE (BEAKER) (test zohe=1238) No growth GRAM STAIN RESULT (BEAKER) (test 1+ WBCs zvxp=0046) GRAM STAIN RESULT (BEAKER) (test No organisms seen jrye=33941) SURGICALLY OBTAINED CULTURE + GRAM [id number] 08:04:00 Test Item Value Reference Range Comments CULTURE (BEAKER) (test kbjo=2115) No growth GRAM STAIN RESULT (BEAKER) (test <1+ WBCs apzs=3392) GRAM STAIN RESULT (BEAKER) (test No organisms seen sxvm=68938) SURGICALLY OBTAINED CULTURE + GRAM [id number] 08:03:00 Test Item Value Reference Range Comments CULTURE (BEAKER) (test agns=2388) No growth GRAM STAIN RESULT (BEAKER) (test No WBCs jjqm=6924) GRAM STAIN RESULT (BEAKER) (test No organisms seen zekj=59362) CBC WITH PLATELET COUNT + MANUAL [id number] 04:36:00 Test Item Value Reference Range Comments WHITE BLOOD CELL COUNT (BEAKER) (test wxzv=419) 10.1 K/ L 3.5-10.5 RED BLOOD CELL COUNT (BEAKER) (test hhmh=848) 3.10 M/ L 4.63-6.08 HEMOGLOBIN (BEAKER) (test tocu=424) 8.6 GM/DL 13.7-17.5 HEMATOCRIT (BEAKER) (test akci=905) 27.8 % 40.1-51.0 MEAN CORPUSCULAR VOLUME (BEAKER) (test xtfw=080) 89.7 fL 79.0-92.2 MEAN CORPUSCULAR HEMOGLOBIN (BEAKER) (test 27.7 pg 25.7-32.2 mbsm=506) MEAN CORPUSCULAR HEMOGLOBIN CONC (BEAKER) (test 30.9 GM/DL 32.3-36.5 tvsz=902) RED CELL DISTRIBUTION WIDTH (BEAKER) (test 17.8 % 11.6-14.4 qimu=362) PLATELET COUNT (BEAKER) (test gizx=930) 439 K/CU MM 150-450 MEAN PLATELET VOLUME (BEAKER) (test ztbd=739) 9.2 fL 9.4-12.4 NUCLEATED RED BLOOD CELLS (BEAKER) (test 1 /100 WBC 0-0 dnzi=432) IMMATURE GRANULOCYTES-RELATIVE PERCENT (BEAKER) 3 % 0-1 (test avhq=7109) BASIC METABOLIC [id number] 03:37:00 Test Item Value Reference Range Comments SODIUM (BEAKER) (test 136 meq/L 136-145 zjic=816) POTASSIUM (BEAKER) (test 3.8 meq/L 3.5-5.1 xoml=422) CHLORIDE (BEAKER) (test 100 meq/L 98-107 mjtg=168) CO2 (BEAKER) (test 24 meq/L 22-29 ottc=957) BLOOD UREA NITROGEN 35 mg/dL 7-21 (BEAKER) (test qovy=160) CREATININE (BEAKER) (test 2.30 mg/dL 0.57-1.25 gsgi=915) GLUCOSE RANDOM (BEAKER) 118 mg/dL 70-105 (test hhgp=346) CALCIUM (BEAKER) (test 8.1 mg/dL 8.4-10.2 ucoz=007) EGFR (BEAKER) (test 28 mL/min/1.73 sq m ESTIMATED GFR IS NOT hzaz=2094) ACCURATE CREATININE CLEARANCE IN PREDICTING GLOMERULAR FILTRATION RATE. ESTIMATED GFR IS NOT APPLICABLE FOR DIALYSIS PATIENTS. [id number] 03:31:00 Test Item Value Reference Range Comments PHOSPHORUS (BEAKER) (test zbvo=820) 3.6 mg/dL 2.3-4.7 [id number] 03:31:00 Test Item Value Reference Range Comments MAGNESIUM (BEAKER) (test xqww=705) 2.3 mg/dL 1.6-2.6 CBC W/PLT COUNT & AUTO [id number] 03:20:00 Test Item Value Reference Range Comments WHITE BLOOD CELL COUNT (BEAKER) (test ypey=071) 10.1 K/ L 3.5-10.5 RED BLOOD CELL COUNT (BEAKER) (test diuc=830) 3.10 M/ L 4.63-6.08 HEMOGLOBIN (BEAKER) (test hmuf=667) 8.6 GM/DL 13.7-17.5 HEMATOCRIT (BEAKER) (test uzjt=762) 27.8 % 40.1-51.0 MEAN CORPUSCULAR VOLUME (BEAKER) (test maak=377) 89.7 fL 79.0-92.2 MEAN CORPUSCULAR HEMOGLOBIN (BEAKER) (test 27.7 pg 25.7-32.2 rldm=600) MEAN CORPUSCULAR HEMOGLOBIN CONC (BEAKER) (test 30.9 GM/DL 32.3-36.5 gmou=227) RED CELL DISTRIBUTION WIDTH (BEAKER) (test 17.8 % 11.6-14.4 infn=718) PLATELET COUNT (BEAKER) (test ihtb=776) 439 K/CU MM 150-450 MEAN PLATELET VOLUME (BEAKER) (test lact=018) 9.2 fL 9.4-12.4 NUCLEATED RED BLOOD CELLS (BEAKER) (test 1 /100 WBC 0-0 duin=331) IMMATURE GRANULOCYTES-RELATIVE PERCENT (BEAKER) 3 % 0-1 (test wamb=3400) BASIC METABOLIC [id number] 22:33:00 Test Item Value Reference Range Comments SODIUM (BEAKER) (test 135 meq/L 136-145 dfpk=357) POTASSIUM (BEAKER) (test 3.8 meq/L 3.5-5.1 lzkd=039) CHLORIDE (BEAKER) (test 101 meq/L 98-107 rhzc=361) CO2 (BEAKER) (test 24 meq/L 22-29 erao=492) BLOOD UREA NITROGEN 36 mg/dL 7-21 (BEAKER) (test iqil=639) CREATININE (BEAKER) (test 2.26 mg/dL 0.57-1.25 pavt=297) GLUCOSE RANDOM (BEAKER) 119 mg/dL 70-105 (test sgqv=964) CALCIUM (BEAKER) (test 7.9 mg/dL 8.4-10.2 vrqm=796) EGFR (BEAKER) (test 29 mL/min/1.73 sq m ESTIMATED GFR IS NOT foux=3665) ACCURATE CREATININE CLEARANCE IN PREDICTING GLOMERULAR FILTRATION RATE. ESTIMATED GFR IS NOT APPLICABLE FOR DIALYSIS PATIENTS. [id number] 22:28:00 Test Item Value Reference Range Comments MAGNESIUM (BEAKER) (test ariw=621) 1.8 mg/dL 1.6-2.6 POCT-GLUCOSE [id number] 21:08:00 Test Item Value Reference Range Comments POC-GLUCOSE METER (BEAKER) 111 mg/dL 70-110 TESTED AT [address] (test upnq=7368) [facility] [address] CBC (HEMOGRAM ONLY)2017-09-04 19:09:00 Test Item Value Reference Range Comments WHITE BLOOD CELL COUNT (BEAKER) (test tsgq=969) 9.3 K/ L 3.5-10.5 RED BLOOD CELL COUNT (BEAKER) (test ggbt=723) 3.02 M/ L 4.63-6.08 HEMOGLOBIN (BEAKER) (test mxkg=379) 8.5 GM/DL 13.7-17.5 HEMATOCRIT (BEAKER) (test aops=141) 27.2 % 40.1-51.0 MEAN CORPUSCULAR VOLUME (BEAKER) (test jbwe=402) 90.1 fL 79.0-92.2 MEAN CORPUSCULAR HEMOGLOBIN (BEAKER) (test 28.1 pg 25.7-32.2 qxse=689) MEAN CORPUSCULAR HEMOGLOBIN CONC (BEAKER) (test 31.3 GM/DL 32.3-36.5 iwzk=393) RED CELL DISTRIBUTION WIDTH (BEAKER) (test 17.8 % 11.6-14.4 cvov=748) PLATELET COUNT (BEAKER) (test ckut=899) 463 K/CU MM 150-450 MEAN PLATELET VOLUME (BEAKER) (test vpsn=531) 9.3 fL 9.4-12.4 NUCLEATED RED BLOOD CELLS (BEAKER) (test 0 /100 WBC 0-0 ptef=624) POCT-GLUCOSE [id number] 17:44:00 Test Item Value Reference Range Comments POC-GLUCOSE METER (BEAKER) 139 mg/dL 70-110 TESTED AT [address] (test potw=7178) [place] [id number] POCT-GLUCOSE [id number] 11:39:00 Test Item Value Reference Range Comments POC-GLUCOSE METER (BEAKER) 142 mg/dL 70-[address] [facility] [address] (test gapt=1515) [facility] [address] BASIC METABOLIC [id number] 10:56:00 Test Item Value Reference Range Comments SODIUM (BEAKER) (test 135 meq/L 136-145 fggd=415) POTASSIUM (BEAKER) (test 3.9 meq/L 3.5-5.1 mnqa=657) CHLORIDE (BEAKER) (test 102 meq/L 98-107 kzxm=540) CO2 (BEAKER) (test 24 meq/L 22-29 xbrh=543) BLOOD UREA NITROGEN 37 mg/dL 7-21 (BEAKER) (test oara=542) CREATININE (BEAKER) (test 2.53 mg/dL 0.57-1.25 mcua=638) GLUCOSE RANDOM (BEAKER) 127 mg/dL 70-105 (test gagw=080) CALCIUM (BEAKER) (test 7.8 mg/dL 8.4-10.2 hyzg=776) EGFR (BEAKER) (test 25 mL/min/1.73 sq m ESTIMATED GFR IS NOT obzq=7765) ACCURATE CREATININE CLEARANCE IN PREDICTING GLOMERULAR FILTRATION RATE. ESTIMATED GFR IS NOT APPLICABLE FOR DIALYSIS PATIENTS. B-TYPE NATRIURETIC FACTOR (BNP)2017-09-04 10:54:00 Test Item Value Reference Range Comments B-TYPE NATRIURETIC PEPTIDE (BEAKER) (test 360 pg/mL 0-100 jfjv=601) [id number] 10:46:00 Test Item Value Reference Range Comments PHOSPHORUS (BEAKER) (test cbrd=421) 4.1 mg/dL 2.3-4.7 [id number] 10:46:00 Test Item Value Reference Range Comments MAGNESIUM (BEAKER) (test ckkg=115) 2.1 mg/dL 1.6-2.6 RAD, CHEST, 1 VIEW, NON [id number] 08:32:00Reason for exam:->shortness of breathShould this be performed at the bedside?->YesFINAL REPORT TECHNIQUE: Frontal chest radiograph dated 09/04/2017. CLINICAL HISTORY: Shortness of breath COMPARISON STUDY: Chest radiograph dated 09/03/2017 IMPRESSION:No change in bilateral pleural effusions with associated atelectasis. Pulmonary vascular congestion and prominent interstitial lung markings are stable. No pneumothorax. Cardiomediastinal silhouette is stable in size. And midline sternotomy wires are intact and well aligned. No fracture. Signed: Candelario Mcdaniels MDReport Verified Date/Time: 09/04/2017 08:32:13 Reading Location: [facility] Radiology Reading Room POCT-GLUCOSE [id number] 08: 02:00 Test Item Value Reference Range Comments POC-GLUCOSE METER (BEAKER) 144 mg/dL 70-[address] [facility] [address] [facility] (test gdkv=7508) [facility] [address] BASIC METABOLIC [id number] 04:29:00 Test Item Value Reference Range Comments SODIUM (BEAKER) (test 133 meq/L 136-145 yvti=956) POTASSIUM (BEAKER) (test 3.7 meq/L 3.5-5.1 lpty=269) CHLORIDE (BEAKER) (test 101 meq/L 98-107 kzrt=864) CO2 (BEAKER) (test 22 meq/L 22-29 edtj=559) BLOOD UREA NITROGEN 37 mg/dL 7-21 (BEAKER) (test mcuh=020) CREATININE (BEAKER) (test 2.65 mg/dL 0.57-1.25 msku=107) GLUCOSE RANDOM (BEAKER) 136 mg/dL 70-105 (test lajy=194) CALCIUM (BEAKER) (test 7.6 mg/dL 8.4-10.2 wwna=844) EGFR (BEAKER) (test 24 mL/min/1.73 sq m ESTIMATED GFR IS NOT lxza=3704) ACCURATE CREATININE CLEARANCE IN PREDICTING GLOMERULAR FILTRATION RATE. ESTIMATED GFR IS NOT APPLICABLE FOR DIALYSIS PATIENTS. [id number] 04:25:00 Test Item Value Reference Range Comments PHOSPHORUS (BEAKER) (test dzzs=719) 4.2 mg/dL 2.3-4.7 [id number] 04:25:00 Test Item Value Reference Range Comments MAGNESIUM (BEAKER) (test gbaz=826) 2.0 mg/dL 1.6-2.6 CBC W/PLT COUNT & AUTO [id number] 03:30:00 Test Item Value Reference Range Comments WHITE BLOOD CELL COUNT (BEAKER) (test uoyt=495) 9.1 K/ L 3.5-10.5 RED BLOOD CELL COUNT (BEAKER) (test elgq=024) 2.54 M/ L 4.63-6.08 HEMOGLOBIN (BEAKER) (test qvto=596) 7.0 GM/DL 13.7-17.5 HEMATOCRIT (BEAKER) (test zgsp=779) 23.4 % 40.1-51.0 MEAN CORPUSCULAR VOLUME (BEAKER) (test fkop=703) 92.1 fL 79.0-92.2 MEAN CORPUSCULAR HEMOGLOBIN (BEAKER) (test 27.6 pg 25.7-32.2 ubgr=657) MEAN CORPUSCULAR HEMOGLOBIN CONC (BEAKER) (test 29.9 GM/DL 32.3-36.5 jkqs=479) RED CELL DISTRIBUTION WIDTH (BEAKER) (test 17.2 % 11.6-14.4 aijc=355) PLATELET COUNT (BEAKER) (test swgk=422) 407 K/CU MM 150-450 MEAN PLATELET VOLUME (BEAKER) (test bkpk=394) 9.2 fL 9.4-12.4 NUCLEATED RED BLOOD CELLS (BEAKER) (test 0 /100 WBC 0-0 yiqq=751) NEUTROPHILS RELATIVE PERCENT (BEAKER) (test 75 % fpka=697) LYMPHOCYTES RELATIVE PERCENT (BEAKER) (test 10 % lfrk=895) MONOCYTES RELATIVE PERCENT (BEAKER) (test 10 % qvnr=005) EOSINOPHILS RELATIVE PERCENT (BEAKER) (test 1 % przz=064) BASOPHILS RELATIVE PERCENT (BEAKER) (test 0 % wplq=475) NEUTROPHILS ABSOLUTE COUNT (BEAKER) (test 6.78 K/ L 1.78-5.38 zvjy=625) LYMPHOCYTES ABSOLUTE COUNT (BEAKER) (test 0.92 K/ L 1.32-3.57 xrjg=241) MONOCYTES ABSOLUTE COUNT (BEAKER) (test 0.89 K/ L 0.30-0.82 ryqz=310) EOSINOPHILS ABSOLUTE COUNT (BEAKER) (test 0.13 K/ L 0.04-0.54 lgme=130) BASOPHILS ABSOLUTE COUNT (BEAKER) (test 0.03 K/ L 0.01-0.08 tgcu=530) IMMATURE GRANULOCYTES-RELATIVE PERCENT (BEAKER) 3 % 0-1 (test rsot=5391) POCT-GLUCOSE [id number] 23:06:00 Test Item Value Reference Range Comments POC-GLUCOSE METER (BEAKER) 155 mg/dL 70-110 TESTED AT [address] (test knrc=3813) [place] [address] POCT-GLUCOSE [id number] 17:12:00 Test Item Value Reference Range Comments POC-GLUCOSE METER (BEAKER) 157 mg/dL 70-110 TESTED AT [address] (test owuj=6393) [place] [address] SPIN/CONCENTRATION [id number] 16:25:00 Test Item Value Reference Range Comments CONCENTRATION CHARGED (BEAKER) (test ysfh=9554) Done POCT-GLUCOSE [id number] 12:16:00 Test Item Value Reference Range Comments POC-GLUCOSE METER (BEAKER) 163 mg/dL 70-110 TESTED AT [address] (test arsg=2706) [place] [address] [id number] 11:44:00 Test Item Value Reference Range Comments FERRITIN (BEAKER) (test xwdb=227) 400 ng/mL 5-275 IRON, TIBC, % SAT. (WITHOUT FERRITIN)2017-09-03 11:24:00 Test Item Value Reference Range Comments IRON (BEAKER) (test epgo=351) 38 ug/dL 40-160 TOTAL IRON BINDING CAPACITY (BEAKER) (test 168 ug/dL 250-450 nkyx=115) IRON % SATURATION (2) (BEAKER) (test earp=5762) 23 % 20-55 RETICULOCYTE [id number] 11:10:00 Test Item Value Reference Range Comments RETICULOCYTE COUNT PCT (BEAKER) (test tpzz=963) 3.2 % 0.5-1.8 RAD, CHEST, 1 VIEW, NON [id number] 11:05:00Reason for exam:->shortness of breathFINAL REPORT Chest one view INDICATION: Shortness of breath COMPARISON: 09/02/2017 IMPRESSION: The cardiac silhouette is enlarged. Mediastinal widening is stable with median sternotomy changes. There is pulmonary vascular congestion with stable interstitial reticulation and lowerlung airspace opacities suggesting edema and atelectasis with left greater than right dependent pleural effusions. Superimposed pneumonitis should be excluded clinically. No pneumothorax is seen. Signed: Harriett Garnica MDReport Verified Date/Time: 09/03/2017 11:05:13 Reading Location: [facility] Radiology Reading Room [facility] (HEMOGRAM ONLY)2017-09-03 10:57:00 Test Item Value Reference Range Comments WHITE BLOOD CELL COUNT (BEAKER) (test icls=770) 9.9 K/ L 3.5-10.5 RED BLOOD CELL COUNT (BEAKER) (test gupv=306) 2.71 M/ L 4.63-6.08 HEMOGLOBIN (BEAKER) (test ucpn=696) 7.6 GM/DL 13.7-17.5 HEMATOCRIT (BEAKER) (test ibrc=485) 25.6 % 40.1-51.0 MEAN CORPUSCULAR VOLUME (BEAKER) (test mlzg=592) 94.5 fL 79.0-92.2 MEAN CORPUSCULAR HEMOGLOBIN (BEAKER) (test 28.0 pg 25.7-32.2 scsc=409) MEAN CORPUSCULAR HEMOGLOBIN CONC (BEAKER) (test 29.7 GM/DL 32.3-36.5 apvr=172) RED CELL DISTRIBUTION WIDTH (BEAKER) (test 16.9 % 11.6-14.4 felk=679) PLATELET COUNT (BEAKER) (test vqzy=822) 438 K/CU MM 150-450 MEAN PLATELET VOLUME (BEAKER) (test hkjl=015) 9.9 fL 9.4-12.4 NUCLEATED RED BLOOD CELLS (BEAKER) (test 0 /100 WBC 0-0 vwea=218) HEMOGLOBIN AND [id number] 06:14:00 Test Item Value Reference Range Comments HEMOGLOBIN (BEAKER) (test omcw=338) 6.7 GM/DL 13.7-17.5 HEMATOCRIT (BEAKER) (test mfba=647) 23.0 % 40.1-51.0 POCT-GLUCOSE [id number] 06:08:00 Test Item Value Reference Range Comments POC-GLUCOSE METER (BEAKER) 155 mg/dL 70-[address] [facility] [address] (test azuj=5660) [facility] [address] BASIC METABOLIC [id number] 03:44:00 Test Item Value Reference Range Comments SODIUM (BEAKER) (test 136 meq/L 136-145 dzcv=153) POTASSIUM (BEAKER) (test 4.4 meq/L 3.5-5.1 dups=364) CHLORIDE (BEAKER) (test 104 meq/L 98-107 mdxk=284) CO2 (BEAKER) (test 21 meq/L 22-29 qmyd=916) BLOOD UREA NITROGEN 31 mg/dL 7-21 (BEAKER) (test yjhn=049) CREATININE (BEAKER) (test 2.73 mg/dL 0.57-1.25 vnfw=210) GLUCOSE RANDOM (BEAKER) 156 mg/dL 70-105 (test ugbr=676) CALCIUM (BEAKER) (test 7.7 mg/dL 8.4-10.2 xmrd=602) EGFR (BEAKER) (test 23 mL/min/1.73 sq m ESTIMATED GFR IS NOT bzrk=2842) ACCURATE CREATININE CLEARANCE IN PREDICTING GLOMERULAR FILTRATION RATE. ESTIMATED GFR IS NOT APPLICABLE FOR DIALYSIS PATIENTS. VANCOMYCIN LEVEL, [id number] 03:41:00 Test Item Value Reference Range Comments VANCOMYCIN RANDOM (BEAKER) (test teqh=987) 16.7 ug/mL Reference Range: No [id number] 03:40:00 Test Item Value Reference Range Comments PHOSPHORUS (BEAKER) (test jkem=592) 5.2 mg/dL 2.3-4.7 [id number] 03:40:00 Test Item Value Reference Range Comments MAGNESIUM (BEAKER) (test rxho=995) 1.7 mg/dL 1.6-2.6 CBC W/PLT COUNT & AUTO [id number] 03:39:00 Test Item Value Reference Range Comments WHITE BLOOD CELL COUNT (BEAKER) (test baiv=502) 8.6 K/ L 3.5-10.5 RED BLOOD CELL COUNT (BEAKER) (test pkup=764) 2.50 M/ L 4.63-6.08 HEMOGLOBIN (BEAKER) (test ubej=849) 6.9 GM/DL 13.7-17.5 HEMATOCRIT (BEAKER) (test ahey=226) 23.6 % 40.1-51.0 MEAN CORPUSCULAR VOLUME (BEAKER) (test qkek=091) 94.4 fL 79.0-92.2 MEAN CORPUSCULAR HEMOGLOBIN (BEAKER) (test 27.6 pg 25.7-32.2 zokq=082) MEAN CORPUSCULAR HEMOGLOBIN CONC (BEAKER) (test 29.2 GM/DL 32.3-36.5 pxeg=816) RED CELL DISTRIBUTION WIDTH (BEAKER) (test 17.2 % 11.6-14.4 fstb=716) PLATELET COUNT (BEAKER) (test ctkg=152) 454 K/CU MM 150-450 MEAN PLATELET VOLUME (BEAKER) (test cfdm=270) 10.0 fL 9.4-12.4 NUCLEATED RED BLOOD CELLS (BEAKER) (test 0 /100 WBC 0-0 mjqa=816) NEUTROPHILS RELATIVE PERCENT (BEAKER) (test 78 % hbme=514) LYMPHOCYTES RELATIVE PERCENT (BEAKER) (test 11 % htku=270) MONOCYTES RELATIVE PERCENT (BEAKER) (test 10 % ofqe=650) EOSINOPHILS RELATIVE PERCENT (BEAKER) (test 0 % xmgp=304) BASOPHILS RELATIVE PERCENT (BEAKER) (test 0 % mykb=643) NEUTROPHILS ABSOLUTE COUNT (BEAKER) (test 6.71 K/ L 1.78-5.38 zfux=273) LYMPHOCYTES ABSOLUTE COUNT (BEAKER) (test 0.93 K/ L 1.32-3.57 gtxm=959) MONOCYTES ABSOLUTE COUNT (BEAKER) (test 0.83 K/ L 0.30-0.82 feau=097) EOSINOPHILS ABSOLUTE COUNT (BEAKER) (test 0.02 K/ L 0.04-0.54 bson=193) BASOPHILS ABSOLUTE COUNT (BEAKER) (test 0.01 K/ L 0.01-0.08 zrms=795) IMMATURE GRANULOCYTES-RELATIVE PERCENT (BEAKER) 1 % 0-1 (test hjhy=2792) POCT-GLUCOSE [id number] 23:21:00 Test Item Value Reference Range Comments POC-GLUCOSE METER (BEAKER) 168 mg/dL 70-[address] [facility] [address] [facility] (test zuze=5318) [facility] [address] URINALYSIS W/ [id number] 22:42:00 Test Item Value Reference Range Comments COLOR (BEAKER) (test qyki=876) Yellow CLARITY (BEAKER) (test lmtr=288) Hazy SPECIFIC GRAVITY UA (BEAKER) (test axmh=290) 1.018 1.001-1.035 PH UA (BEAKER) (test yixm=867) 5.0 5.0-8.0 PROTEIN UA (BEAKER) (test ervr=845) 50 mg/dL Negative GLUCOSE UA (BEAKER) (test aunf=271) Negative Negative KETONES UA (BEAKER) (test bbch=635) Negative Negative BILIRUBIN UA (BEAKER) (test unix=711) Negative Negative BLOOD UA (BEAKER) (test hnrk=836) Negative Negative NITRITE UA (BEAKER) (test sefb=350) Negative Negative LEUKOCYTE ESTERASE UA (BEAKER) (test xypm=254) Large Negative UROBILINOGEN UA (BEAKER) (test nfxf=563) 2.0 mg/dL 0.2-1.0 RBC UA (BEAKER) (test qmzd=234) 0 /HPF WBC UA (BEAKER) (test ztjm=247) 45 /HPF MUCUS (BEAKER) (test eazf=0589) Occasional SQUAMOUS EPITHELIAL (BEAKER) (test lvkk=617) 1 /HPF SOURCE(BEAKER) (test gxgm=0609) BASIC METABOLIC [id number] 22:37:00 Test Item Value Reference Range Comments SODIUM (BEAKER) (test 135 meq/L 136-145 etsn=768) POTASSIUM (BEAKER) (test 4.6 meq/L 3.5-5.1 raod=729) CHLORIDE (BEAKER) (test 105 meq/L 98-107 zubt=548) CO2 (BEAKER) (test 21 meq/L 22-29 syxp=627) BLOOD UREA NITROGEN 30 mg/dL 7-21 (BEAKER) (test wugy=491) CREATININE (BEAKER) (test 2.40 mg/dL 0.57-1.25 gepd=176) GLUCOSE RANDOM (BEAKER) 158 mg/dL 70-105 (test insg=495) CALCIUM (BEAKER) (test 7.8 mg/dL 8.4-10.2 zdbi=668) EGFR (BEAKER) (test 27 mL/min/1.73 sq m ESTIMATED GFR IS NOT xjso=1442) ACCURATE CREATININE CLEARANCE IN PREDICTING GLOMERULAR FILTRATION RATE. ESTIMATED GFR IS NOT APPLICABLE FOR DIALYSIS PATIENTS. [id number] 22:34:00 Test Item Value Reference Range Comments MAGNESIUM (BEAKER) (test zlwb=222) 1.3 mg/dL 1.6-2.6 LACTIC ACID, ARTERIAL, WHOLE [id number] 22:30:00 Test Item Value Reference Range Comments LACTATE BLOOD ARTERIAL (2) (BEAKER) (test 1.9 mmol/L 0.5-2.2 zzmt=4739) Effective 09/27/2015: Units/Reference Range ChangeNew: 0.5-2.2 mmol/L Previous: 5 -20 mg/dLHEPATIC FUNCTION [id number] 20:18:00 Test Item Value Reference Range Comments TOTAL PROTEIN (BEAKER) (test ullx=234) 6.2 gm/dL 6.0-8.3 ALBUMIN (BEAKER) (test vqpk=0880) 2.4 g/dL 3.5-5.0 BILIRUBIN TOTAL (BEAKER) (test roev=251) 0.5 mg/dL 0.2-1.2 BILIRUBIN DIRECT (BEAKER) (test gswa=524) 0.3 mg/dL 0.1-0.5 ALKALINE PHOSPHATASE (BEAKER) (test ilqc=325) 82 U/L 40-150 AST (SGOT) (BEAKER) (test xkdt=830) 36 U/L 5-34 ALT (SGPT) (BEAKER) (test gzbr=721) 29 U/L 6-55 LACTIC ACID, VENOUS, WHOLE [id number] 20:13:00 Test Item Value Reference Range Comments LACTATE BLOOD VENOUS (2) (BEAKER) (test 2.0 mmol/L 0.5-2.2 sqva=3703) Effective 09/27/2015: Units/Reference Range ChangeNew: 0.5-2.2 mmol/L Previous: 5 -20 mg/dLBASIC METABOLIC [id number] 15:01:00 Test Item Value Reference Range Comments SODIUM (BEAKER) (test 135 meq/L 136-145 zxij=790) POTASSIUM (BEAKER) (test 4.3 meq/L 3.5-5.1 dekn=626) CHLORIDE (BEAKER) (test 102 meq/L 98-107 ccts=555) CO2 (BEAKER) (test 22 meq/L 22-29 xeoz=677) BLOOD UREA NITROGEN 27 mg/dL 7-21 (BEAKER) (test ohta=694) CREATININE (BEAKER) (test 1.97 mg/dL 0.57-1.25 kvfk=339) GLUCOSE RANDOM (BEAKER) 185 mg/dL 70-105 (test glxx=580) CALCIUM (BEAKER) (test 7.9 mg/dL 8.4-10.2 jcge=996) EGFR (BEAKER) (test 33 mL/min/1.73 sq m ESTIMATED GFR IS NOT gsjo=3035) ACCURATE CREATININE CLEARANCE IN PREDICTING GLOMERULAR FILTRATION RATE. ESTIMATED GFR IS NOT APPLICABLE FOR DIALYSIS PATIENTS. [id number] 14:58:00 Test Item Value Reference Range Comments PHOSPHORUS (BEAKER) (test safy=276) 5.2 mg/dL 2.3-4.7 [id number] 14:58:00 Test Item Value Reference Range Comments MAGNESIUM (BEAKER) (test vvdx=939) 1.4 mg/dL 1.6-2.6 BASIC METABOLIC [id number] 14:49:00 Test Item Value Reference Range Comments SODIUM (BEAKER) (test 134 meq/L 136-145 sqrr=839) POTASSIUM (BEAKER) (test 4.4 meq/L 3.5-5.1 cjpr=130) CHLORIDE (BEAKER) (test 102 meq/L 98-107 gfdl=833) CO2 (BEAKER) (test 22 meq/L 22-29 ieyu=275) BLOOD UREA NITROGEN 27 mg/dL 7-21 (BEAKER) (test mchg=651) CREATININE (BEAKER) (test 1.96 mg/dL 0.57-1.25 sqwd=367) GLUCOSE RANDOM (BEAKER) 184 mg/dL 70-105 (test tang=383) CALCIUM (BEAKER) (test 7.9 mg/dL 8.4-10.2 spsf=757) EGFR (BEAKER) (test 34 mL/min/1.73 sq m ESTIMATED GFR IS NOT jbiy=2726) ACCURATE CREATININE CLEARANCE IN PREDICTING GLOMERULAR FILTRATION RATE. ESTIMATED GFR IS NOT APPLICABLE FOR DIALYSIS PATIENTS. LACTIC ACID, ARTERIAL, WHOLE [id number] 14:35:00 Test Item Value Reference Range Comments LACTATE BLOOD ARTERIAL (2) (BEAKER) (test 2.6 mmol/L 0.5-2.2 eanr=2966) Effective 09/27/2015: Units/Reference Range ChangeNew: 0.5-2.2 mmol/L Previous: 5 -20 mg/dLPROTHROMBIN [id number] 14:27:00 Test Item Value Reference Range Comments PROTIME (BEAKER) (test kjgh=383) 21.3 seconds 11.7-14.7 INR (BEAKER) (test oqpd=795) 1.8 <=5.9 RECOMMENDED COUMADIN/WARFARIN INR THERAPY RANGESSTANDARD DOSE: 2.0 - 3.0 Includes: PROPHYLAXIS forvenous thrombosis, systemic embolization; TREATMENT for venous thrombosis and/or pulmonary embolus.HIGH RISK: Target INR is 2.5-3.5 for patients with mechanical heart valves.[id number] 14:27:00 Test Item Value Reference Range Comments PARTIAL THROMBOPLASTIN TIME (BEAKER) (test 37.6 seconds 22.5-36.0 bxwb=531) CBC W/PLT COUNT & AUTO [id number] 14:20:00 Test Item Value Reference Range Comments WHITE BLOOD CELL COUNT (BEAKER) (test vdqm=717) 13.7 K/ L 3.5-10.5 RED BLOOD CELL COUNT (BEAKER) (test frlr=038) 3.16 M/ L 4.63-6.08 HEMOGLOBIN (BEAKER) (test eqll=424) 8.8 GM/DL 13.7-17.5 HEMATOCRIT (BEAKER) (test qpir=146) 29.9 % 40.1-51.0 MEAN CORPUSCULAR VOLUME (BEAKER) (test bjbc=140) 94.6 fL 79.0-92.2 MEAN CORPUSCULAR HEMOGLOBIN (BEAKER) (test 27.8 pg 25.7-32.2 nkqa=672) MEAN CORPUSCULAR HEMOGLOBIN CONC (BEAKER) (test 29.4 GM/DL 32.3-36.5 yojn=143) RED CELL DISTRIBUTION WIDTH (BEAKER) (test 16.8 % 11.6-14.4 mgfk=372) PLATELET COUNT (BEAKER) (test htdk=250) 583 K/CU MM 150-450 MEAN PLATELET VOLUME (BEAKER) (test ujxy=964) 10.0 fL 9.4-12.4 NUCLEATED RED BLOOD CELLS (BEAKER) (test 0 /100 WBC 0-0 oqey=581) NEUTROPHILS RELATIVE PERCENT (BEAKER) (test 80 % jtsk=797) LYMPHOCYTES RELATIVE PERCENT (BEAKER) (test 7 % jvmh=230) MONOCYTES RELATIVE PERCENT (BEAKER) (test 11 % jbif=975) EOSINOPHILS RELATIVE PERCENT (BEAKER) (test 0 % hadx=920) BASOPHILS RELATIVE PERCENT (BEAKER) (test 0 % stjm=514) NEUTROPHILS ABSOLUTE COUNT (BEAKER) (test 11.04 K/ L 1.78-5.38 sfft=866) LYMPHOCYTES ABSOLUTE COUNT (BEAKER) (test 0.93 K/ L 1.32-3.57 vxte=957) MONOCYTES ABSOLUTE COUNT (BEAKER) (test 1.55 K/ L 0.30-0.82 vuxd=924) EOSINOPHILS ABSOLUTE COUNT (BEAKER) (test 0.01 K/ L 0.04-0.54 zbzi=510) BASOPHILS ABSOLUTE COUNT (BEAKER) (test 0.01 K/ L 0.01-0.08 xjht=273) IMMATURE GRANULOCYTES-RELATIVE PERCENT (BEAKER) 1 % 0-1 (test mqzm=4988) CBC W/PLT COUNT & AUTO [id number] 14:15:00 Test Item Value Reference Range Comments WHITE BLOOD CELL COUNT (BEAKER) (test nlci=750) 13.8 K/ L 3.5-10.5 RED BLOOD CELL COUNT (BEAKER) (test iymz=581) 3.22 M/ L 4.63-6.08 HEMOGLOBIN (BEAKER) (test qfze=619) 8.9 GM/DL 13.7-17.5 HEMATOCRIT (BEAKER) (test rrze=294) 30.5 % 40.1-51.0 MEAN CORPUSCULAR VOLUME (BEAKER) (test wufk=458) 94.7 fL 79.0-92.2 MEAN CORPUSCULAR HEMOGLOBIN (BEAKER) (test 27.6 pg 25.7-32.2 dswt=008) MEAN CORPUSCULAR HEMOGLOBIN CONC (BEAKER) (test 29.2 GM/DL 32.3-36.5 zpsu=908) RED CELL DISTRIBUTION WIDTH (BEAKER) (test 16.9 % 11.6-14.4 zhjd=910) PLATELET COUNT (BEAKER) (test ifye=882) 578 K/CU MM 150-450 MEAN PLATELET VOLUME (BEAKER) (test mlck=980) 9.9 fL 9.4-12.4 NUCLEATED RED BLOOD CELLS (BEAKER) (test 0 /100 WBC 0-0 fqxa=121) NEUTROPHILS RELATIVE PERCENT (BEAKER) (test 82 % hpqe=226) LYMPHOCYTES RELATIVE PERCENT (BEAKER) (test 6 % imxl=649) MONOCYTES RELATIVE PERCENT (BEAKER) (test 11 % ywhu=116) EOSINOPHILS RELATIVE PERCENT (BEAKER) (test 0 % cnco=376) BASOPHILS RELATIVE PERCENT (BEAKER) (test 0 % hxnb=802) NEUTROPHILS ABSOLUTE COUNT (BEAKER) (test 11.24 K/ L 1.78-5.38 fbzn=553) LYMPHOCYTES ABSOLUTE COUNT (BEAKER) (test 0.86 K/ L 1.32-3.57 mgev=833) MONOCYTES ABSOLUTE COUNT (BEAKER) (test 1.49 K/ L 0.30-0.82 orba=699) EOSINOPHILS ABSOLUTE COUNT (BEAKER) (test 0.01 K/ L 0.04-0.54 kszz=656) BASOPHILS ABSOLUTE COUNT (BEAKER) (test 0.02 K/ L 0.01-0.08 sjfd=663) IMMATURE GRANULOCYTES-RELATIVE PERCENT (BEAKER) 1 % 0-1 (test dqef=5764) POCT-GLUCOSE [id number] 13:21:00 Test Item Value Reference Range Comments POC-GLUCOSE METER (BEAKER) 208 mg/dL 70-[address] [facility] [address] [facility] (test nbti=3012) [facility] [address] RAD, CHEST, 1 VIEW, NON [id number] 11:57:00Reason for exam:->SOB, CHFFINAL REPORT Chest one view INDICATION: Shortness of breath, CHF COMPARISON: 08/29/2017 IMPRESSION: The cardiac silhouette is enlarged. Mediastinal widening is stable with median sternotomy changes. There is prominent vascular congestion with improved interstitial reticulation andlower lung airspace opacities suggesting decreased edema and atelectasis with small pleural effusions. Superimposed pneumonitis should be excluded clinically. No pneumothorax is seen. Signed: Harriett Garnica MDReport Verified Date/Time: 09/02/2017 11:57:23 Reading Location: [facility] Reading Room POCT-GLUCOSE [id number] 06:05:00 Test Item Value Reference Range Comments POC-GLUCOSE METER (BEAKER) 141 mg/dL 70-110 TESTED AT [address] (test vetx=1910) [facility] [address] [id number] 06:04:00 Test Item Value Reference Range Comments PREALBUMIN (BEAKER) (test eavi=541) 13 mg/dL 14-45 POCT-GLUCOSE [id number] 20:43:00 Test Item Value Reference Range Comments POC-GLUCOSE METER (BEAKER) 179 mg/dL 70-110 TESTED AT [address] (test pdsv=9711) [facility] [address] POCT-GLUCOSE [id number] 16:57:00 Test Item Value Reference Range Comments POC-GLUCOSE METER (BEAKER) 215 mg/dL 70-110 TESTED AT [address] (test nexp=6381) [facility] [address] POCT-GLUCOSE [id number] 11:18:00 Test Item Value Reference Range Comments POC-GLUCOSE METER (BEAKER) 159 mg/dL 70-110 TESTED AT [address] (test skqo=7110) [facility] [address] BASIC METABOLIC [id number] 07:33:00 Test Item Value Reference Range Comments SODIUM (BEAKER) (test 139 meq/L 136-145 jpuw=633) POTASSIUM (BEAKER) (test 4.1 meq/L 3.5-5.1 yqab=134) CHLORIDE (BEAKER) (test 104 meq/L 98-107 hboa=766) CO2 (BEAKER) (test 25 meq/L 22-29 xfos=776) BLOOD UREA NITROGEN 20 mg/dL 7-21 (BEAKER) (test kxjz=571) CREATININE (BEAKER) (test 1.26 mg/dL 0.57-1.25 ysst=095) GLUCOSE RANDOM (BEAKER) 99 mg/dL 70-105 (test nzet=555) CALCIUM (BEAKER) (test 8.5 mg/dL 8.4-10.2 bfrm=803) EGFR (BEAKER) (test 56 mL/min/1.73 sq m ESTIMATED GFR IS NOT crmg=2855) ACCURATE CREATININE CLEARANCE IN PREDICTING GLOMERULAR FILTRATION RATE. ESTIMATED GFR IS NOT APPLICABLE FOR DIALYSIS PATIENTS. CBC (HEMOGRAM ONLY)2017-09-01 06:13:00 Test Item Value Reference Range Comments WHITE BLOOD CELL COUNT (BEAKER) (test vbwg=816) 6.4 K/ L 3.5-10.5 RED BLOOD CELL COUNT (BEAKER) (test tsek=791) 3.42 M/ L 4.63-6.08 HEMOGLOBIN (BEAKER) (test tlga=514) 9.8 GM/DL 13.7-17.5 HEMATOCRIT (BEAKER) (test oglq=961) 32.8 % 40.1-51.0 MEAN CORPUSCULAR VOLUME (BEAKER) (test uvrc=502) 95.9 fL 79.0-92.2 MEAN CORPUSCULAR HEMOGLOBIN (BEAKER) (test 28.7 pg 25.7-32.2 tgmk=587) MEAN CORPUSCULAR HEMOGLOBIN CONC (BEAKER) (test 29.9 GM/DL 32.3-36.5 ewfk=117) RED CELL DISTRIBUTION WIDTH (BEAKER) (test 16.7 % 11.6-14.4 mntk=243) PLATELET COUNT (BEAKER) (test vewh=514) 391 K/CU MM 150-450 MEAN PLATELET VOLUME (BEAKER) (test cyff=901) 9.9 fL 9.4-12.4 NUCLEATED RED BLOOD CELLS (BEAKER) (test 0 /100 WBC 0-0 qiwn=562) POCT-GLUCOSE [id number] 05:51:00 Test Item Value Reference Range Comments POC-GLUCOSE METER (BEAKER) 122 mg/dL 70-110 TESTED AT [address] (test onjr=3095) [facility] [address] POCT-GLUCOSE [id number] 20:13:00 Test Item Value Reference Range Comments POC-GLUCOSE METER (BEAKER) 212 mg/dL 70-110 TESTED AT [address] (test gvsy=3942) [facility] [address] POCT-GLUCOSE [id number] 16:30:00 Test Item Value Reference Range Comments POC-GLUCOSE METER (BEAKER) 181 mg/dL 70-110 TESTED AT [address] (test xlyd=2137) [facility] [address] POCT-GLUCOSE [id number] 11:36:00 Test Item Value Reference Range Comments POC-GLUCOSE METER (BEAKER) 139 mg/dL 70-110 TESTED AT [address] (test ngpd=2075) [facility] [address] BASIC METABOLIC [id number] 06:56:00 Test Item Value Reference Range Comments SODIUM (BEAKER) (test 138 meq/L 136-145 vgpi=136) POTASSIUM (BEAKER) (test 3.6 meq/L 3.5-5.1 neqb=843) CHLORIDE (BEAKER) (test 103 meq/L 98-107 hqgk=657) CO2 (BEAKER) (test 26 meq/L 22-29 lnzd=887) BLOOD UREA NITROGEN 19 mg/dL 7-21 (BEAKER) (test govo=409) CREATININE (BEAKER) (test 1.10 mg/dL 0.57-1.25 vhbk=075) GLUCOSE RANDOM (BEAKER) 97 mg/dL 70-105 (test ndzd=379) CALCIUM (BEAKER) (test 8.1 mg/dL 8.4-10.2 lbvj=481) EGFR (BEAKER) (test 65 mL/min/1.73 sq m ESTIMATED GFR IS NOT unwc=4086) ACCURATE CREATININE CLEARANCE IN PREDICTING GLOMERULAR FILTRATION RATE. ESTIMATED GFR IS NOT APPLICABLE FOR DIALYSIS PATIENTS. POCT-GLUCOSE [id number] 06:00:00 Test Item Value Reference Range Comments POC-GLUCOSE METER (BEAKER) 119 mg/dL 70-110 TESTED AT [address] (test dgox=6802) [facility] [address] POCT-GLUCOSE [id number] 20:05:00 Test Item Value Reference Range Comments POC-GLUCOSE METER (BEAKER) 167 mg/dL 70-110 TESTED AT [address] (test wvhe=1194) [facility] [address] POCT-GLUCOSE [id number] 17:01:00 Test Item Value Reference Range Comments POC-GLUCOSE METER (BEAKER) 138 mg/dL 70-110 TESTED AT [address] (test dqpq=3727) [facility] [address] POCT-GLUCOSE [id number] 12:07:00 Test Item Value Reference Range Comments POC-GLUCOSE METER (BEAKER) 201 mg/dL 70-110 TESTED AT [address] (test fket=6304) [place] [id number] POCT-GLUCOSE [id number] 06:11:00 Test Item Value Reference Range Comments POC-GLUCOSE METER (BEAKER) 147 mg/dL 70-110 TESTED AT [address] (test grxv=1101) [place] [address] RAD, CHEST, 1 VIEW, NON [id number] 22:11:00Reason for exam:->sobShould this be performed at the bedside?->YesFINAL REPORT RAD , CHEST, 1 VIEW, NON DEPT INDICATION: sob COMPARISON: August 27, 2017 FINDINGS: Portable frontal view of the chest. IMPRESSION: Support Lines: None. Lungs and pleura: Congestive changes may reflect subsegmental atelectasis or increasing edema. Atypical infectionshould be excluded clinically. Trace bilateral effusions. No pneumothorax.Heart and mediastinum: Stable contours. Stable surgical changes.Additional findings: None. Signed: JR Spencer Robert MDReport Verified Date/Time: 08/29/2017 22:11:44 Reading Location: [facility] C013Y CT Body Reading Room POCT-GLUCOSE [id number] 20:49:00 Test Item Value Reference Range Comments POC-GLUCOSE METER (BEAKER) 144 mg/dL 70-110 TESTED AT [address] (test vjek=2725) [place] [id number] POCT-GLUCOSE [id number] 16:39:00 Test Item Value Reference Range Comments POC-GLUCOSE METER (BEAKER) 151 mg/dL 70-110 TESTED AT [address] (test qlem=2932) [place] [id number] FUNGUS CULTURE + [id number] 15:05:00 Test Item Value Reference Range Comments CULTURE (BEAKER) (test No fungus isolated in 28 days fqll=0383) FUNGUS SMEAR (BEAKER) (test No fungi seen xeuz=4249) POCT-GLUCOSE [id number] 11:50:00 Test Item Value Reference Range Comments POC-GLUCOSE METER (BEAKER) 166 mg/dL 70-[address] [facility] [address] [facility] (test xzge=1364) [facility] [address] POCT-GLUCOSE [id number] 21:39:00 Test Item Value Reference Range Comments POC-GLUCOSE METER (BEAKER) 136 mg/dL 70-[address] [facility] [address] [facility] (test jtdg=7940) [facility] [address] COMPREHENSIVE METABOLIC [id number] 16:58:00 Test Item Value Reference Range Comments TOTAL PROTEIN (BEAKER) 6.6 gm/dL 6.0-8.3 (test mhhz=088) ALBUMIN (BEAKER) (test 2.6 g/dL 3.5-5.0 rzhf=9814) ALKALINE PHOSPHATASE 93 U/L 40-150 (BEAKER) (test hild=452) BILIRUBIN TOTAL (BEAKER) 0.4 mg/dL 0.2-1.2 (test jpbw=659) SODIUM (BEAKER) (test 134 meq/L 136-145 hkcs=642) POTASSIUM (BEAKER) (test 3.5 meq/L 3.5-5.1 nvow=305) CHLORIDE (BEAKER) (test 98 meq/L 98-107 lsxr=563) CO2 (BEAKER) (test 25 meq/L 22-29 arxz=987) BLOOD UREA NITROGEN 28 mg/dL 7-21 (BEAKER) (test wmhr=575) CREATININE (BEAKER) (test 1.36 mg/dL 0.57-1.25 kivs=880) GLUCOSE RANDOM (BEAKER) 117 mg/dL 70-105 (test gpzq=470) CALCIUM (BEAKER) (test 8.1 mg/dL 8.4-10.2 nppa=065) AST (SGOT) (BEAKER) (test 37 U/L 5-34 bylk=609) ALT (SGPT) (BEAKER) (test 29 U/L 6-55 vlsm=320) EGFR (BEAKER) (test 51 mL/min/1.73 sq m ESTIMATED GFR IS NOT uvvy=4004) ACCURATE CREATININE CLEARANCE IN PREDICTING GLOMERULAR FILTRATION RATE. ESTIMATED GFR IS NOT APPLICABLE FOR DIALYSIS PATIENTS. LACTIC ACID, VENOUS, WHOLE [id number] 16:52:00 Test Item Value Reference Range Comments LACTATE BLOOD VENOUS (2) (BEAKER) (test 1.2 mmol/L 0.5-2.2 rrse=3962) Effective 09/27/2015: Units/Reference Range ChangeNew: 0.5-2.2 mmol/L Previous: 5 -20 mg/dLCBC W/PLT COUNT & AUTO [id number] 16:39:00 Test Item Value Reference Range Comments WHITE BLOOD CELL COUNT (BEAKER) (test wvcv=777) 6.6 K/ L 3.5-10.5 RED BLOOD CELL COUNT (BEAKER) (test ruyp=870) 3.11 M/ L 4.63-6.08 HEMOGLOBIN (BEAKER) (test jlet=592) 9.0 GM/DL 13.7-17.5 HEMATOCRIT (BEAKER) (test bhzz=098) 30.1 % 40.1-51.0 MEAN CORPUSCULAR VOLUME (BEAKER) (test xfin=962) 96.8 fL 79.0-92.2 MEAN CORPUSCULAR HEMOGLOBIN (BEAKER) (test 28.9 pg 25.7-32.2 maur=346) MEAN CORPUSCULAR HEMOGLOBIN CONC (BEAKER) (test 29.9 GM/DL 32.3-36.5 ozcz=834) RED CELL DISTRIBUTION WIDTH (BEAKER) (test 16.1 % 11.6-14.4 ttjx=972) PLATELET COUNT (BEAKER) (test wzzt=447) 367 K/CU MM 150-450 MEAN PLATELET VOLUME (BEAKER) (test dpql=048) 9.4 fL 9.4-12.4 NUCLEATED RED BLOOD CELLS (BEAKER) (test 0 /100 WBC 0-0 evin=699) NEUTROPHILS RELATIVE PERCENT (BEAKER) (test 78 % vfxo=611) LYMPHOCYTES RELATIVE PERCENT (BEAKER) (test 12 % kjbn=929) MONOCYTES RELATIVE PERCENT (BEAKER) (test 9 % jncf=477) EOSINOPHILS RELATIVE PERCENT (BEAKER) (test 1 % zxxo=203) BASOPHILS RELATIVE PERCENT (BEAKER) (test 0 % yujh=539) NEUTROPHILS ABSOLUTE COUNT (BEAKER) (test 5.18 K/ L 1.78-5.38 jrdm=332) LYMPHOCYTES ABSOLUTE COUNT (BEAKER) (test 0.79 K/ L 1.32-3.57 duod=696) MONOCYTES ABSOLUTE COUNT (BEAKER) (test 0.60 K/ L 0.30-0.82 ygab=317) EOSINOPHILS ABSOLUTE COUNT (BEAKER) (test 0.03 K/ L 0.04-0.54 jtpz=989) BASOPHILS ABSOLUTE COUNT (BEAKER) (test 0.01 K/ L 0.01-0.08 qrwt=617) IMMATURE GRANULOCYTES-RELATIVE PERCENT (BEAKER) 1 % 0-1 (test upcc=1807) POCT-GLUCOSE [id number] 16:20:00 Test Item Value Reference Range Comments POC-GLUCOSE METER (BEAKER) 136 mg/dL 70-110 TESTED AT [address] (test nmgn=7449) [place] [id number] POCT-GLUCOSE [id number] 11:45:00 Test Item Value Reference Range Comments POC-GLUCOSE METER (BEAKER) 157 mg/dL 70-110 TESTED AT [address] (test mbqd=3066) [place] [address] POCT-GLUCOSE [id number] 06:31:00 Test Item Value Reference Range Comments POC-GLUCOSE METER (BEAKER) 131 mg/dL 70-110 TESTED AT [address] (test syyj=5835) [place] [address] POCT-GLUCOSE [id number] 20:28:00 Test Item Value Reference Range Comments POC-GLUCOSE METER (BEAKER) 173 mg/dL 70-110 TESTED AT [address] (test vgvg=0593) [place] [address] POCT-GLUCOSE [id number] 16:43:00 Test Item Value Reference Range Comments POC-GLUCOSE METER (BEAKER) 191 mg/dL 70-110 TESTED AT [address] (test mvje=8083) [place] [address] POCT-GLUCOSE [id number] 11:59:00 Test Item Value Reference Range Comments POC-GLUCOSE METER (BEAKER) 152 mg/dL 70-110 TESTED AT [address] (test rtjo=8963) [place] [address] RAD, CHEST, 1 VIEW, NON [id number] 11:08:00Reason for exam:-> dyspneaShould this be performed at the bedside?->YesFINAL REPORT Two frontal chest images compared to August 20 Discussion: There is cardiac prominence and pulmonary congestion with probable small left effusion. No pneumothorax. IMPRESSIONS: No change Signed: Taty Osborne MDReport Verified Date/Time: 08/27/2017 11:08:36 Reading Location: [facility] Radiology Reading Room 11 :08 AMPOCT-GLUCOSE [id number] 06:00:00 Test Item Value Reference Range Comments POC-GLUCOSE METER (BEAKER) 129 mg/dL 70-110 TESTED AT [address] (test kvaq=4251) [facility] [address] [id number] 05:12:00 Test Item Value Reference Range Comments PREALBUMIN (BEAKER) (test bhiu=864) 10 mg/dL 14-45 POCT-GLUCOSE [id number] 20:50:00 Test Item Value Reference Range Comments POC-GLUCOSE METER (BEAKER) 177 mg/dL 70-110 TESTED AT [address] (test xlyz=1520) [facility] [address] POCT-GLUCOSE [id number] 16:19:00 Test Item Value Reference Range Comments POC-GLUCOSE METER (BEAKER) 162 mg/dL 70-110 TESTED AT [address] (test xsyk=4358) [facility] [address] POCT-GLUCOSE [id number] 11:44:00 Test Item Value Reference Range Comments POC-GLUCOSE METER (BEAKER) 182 mg/dL 70-110 TESTED AT [address] (test rvcx=2811) [facility] [address] POCT-GLUCOSE [id number] 06:07:00 Test Item Value Reference Range Comments POC-GLUCOSE METER (BEAKER) 120 mg/dL 70-110 TESTED AT [address] (test wbpg=7727) [facility] [address] POCT-GLUCOSE [id number] 20:48:00 Test Item Value Reference Range Comments POC-GLUCOSE METER (BEAKER) 172 mg/dL 70-110 TESTED AT [address] (test tthn=1262) [facility] [address] POCT-GLUCOSE [id number] 16:17:00 Test Item Value Reference Range Comments POC-GLUCOSE METER (BEAKER) 156 mg/dL 70-110 TESTED AT [address] (test rmqz=5815) [facility] [address] POCT-GLUCOSE [id number] 11:33:00 Test Item Value Reference Range Comments POC-GLUCOSE METER (BEAKER) 203 mg/dL 70-[address] [facility] [address] [facility] (test keza=3035) [facility] [address] HEPATIC FUNCTION [id number] 11:30:00 Test Item Value Reference Range Comments TOTAL PROTEIN (BEAKER) (test afhn=279) 6.5 gm/dL 6.0-8.3 ALBUMIN (BEAKER) (test bbxl=4527) 2.6 g/dL 3.5-5.0 BILIRUBIN TOTAL (BEAKER) (test mywe=272) 0.4 mg/dL 0.2-1.2 BILIRUBIN DIRECT (BEAKER) (test bjob=064) 0.3 mg/dL 0.1-0.5 ALKALINE PHOSPHATASE (BEAKER) (test qyut=739) 105 U/L 40-150 AST (SGOT) (BEAKER) (test rqvs=749) 26 U/L 5-34 ALT (SGPT) (BEAKER) (test nemw=125) 21 U/L 6-55 BASIC METABOLIC [id number] 07:01:00 Test Item Value Reference Range Comments SODIUM (BEAKER) (test 136 meq/L 136-145 ujla=209) POTASSIUM (BEAKER) (test 3.7 meq/L 3.5-5.1 ekah=145) CHLORIDE (BEAKER) (test 102 meq/L 98-107 brdo=533) CO2 (BEAKER) (test 25 meq/L 22-29 lwjz=933) BLOOD UREA NITROGEN 23 mg/dL 7-21 (BEAKER) (test etmn=962) CREATININE (BEAKER) (test 1.22 mg/dL 0.57-1.25 xlev=245) GLUCOSE RANDOM (BEAKER) 120 mg/dL 70-105 (test ltcj=568) CALCIUM (BEAKER) (test 8.4 mg/dL 8.4-10.2 wwoc=753) EGFR (BEAKER) (test 58 mL/min/1.73 sq m ESTIMATED GFR IS NOT faet=2746) ACCURATE CREATININE CLEARANCE IN PREDICTING GLOMERULAR FILTRATION RATE. ESTIMATED GFR IS NOT APPLICABLE FOR DIALYSIS PATIENTS. CBC (HEMOGRAM ONLY)2017-08-25 06:32:00 Test Item Value Reference Range Comments WHITE BLOOD CELL COUNT (BEAKER) (test dghq=574) 7.0 K/ L 3.5-10.5 RED BLOOD CELL COUNT (BEAKER) (test vdby=753) 3.14 M/ L 4.63-6.08 HEMOGLOBIN (BEAKER) (test zqam=765) 9.2 GM/DL 13.7-17.5 HEMATOCRIT (BEAKER) (test eogc=384) 31.3 % 40.1-51.0 MEAN CORPUSCULAR VOLUME (BEAKER) (test rlth=730) 99.7 fL 79.0-92.2 MEAN CORPUSCULAR HEMOGLOBIN (BEAKER) (test 29.3 pg 25.7-32.2 rlse=351) MEAN CORPUSCULAR HEMOGLOBIN CONC (BEAKER) (test 29.4 GM/DL 32.3-36.5 liwx=529) RED CELL DISTRIBUTION WIDTH (BEAKER) (test 16.1 % 11.6-14.4 rcku=908) PLATELET COUNT (BEAKER) (test bfas=608) 362 K/CU MM 150-450 MEAN PLATELET VOLUME (BEAKER) (test xfgw=409) 9.8 fL 9.4-12.4 NUCLEATED RED BLOOD CELLS (BEAKER) (test 0 /100 WBC 0-0 cwoy=904) POCT-GLUCOSE [id number] 06:17:00 Test Item Value Reference Range Comments POC-GLUCOSE METER (BEAKER) 152 mg/dL 70-110 TESTED AT [address] (test liyn=3380) [facility] [address] POCT-GLUCOSE [id number] 20:39:00 Test Item Value Reference Range Comments POC-GLUCOSE METER (BEAKER) 249 mg/dL 70-110 TESTED AT [address] (test ahea=9276) [facility] [address] POCT-GLUCOSE [id number] 17:12:00 Test Item Value Reference Range Comments POC-GLUCOSE METER (BEAKER) 163 mg/dL 70-110 TESTED AT [address] (test gukf=2810) [facility] [address] POCT-GLUCOSE [id number] 11:20:00 Test Item Value Reference Range Comments POC-GLUCOSE METER (BEAKER) 190 mg/dL 70-110 TESTED AT [address] (test nfuu=3050) [facility] [address] POCT-GLUCOSE [id number] 06:16:00 Test Item Value Reference Range Comments POC-GLUCOSE METER (BEAKER) 126 mg/dL 70-110 TESTED AT [address] (test miih=9989) [place] [address] POCT-GLUCOSE [id number] 20:49:00 Test Item Value Reference Range Comments POC-GLUCOSE METER (BEAKER) 139 mg/dL 70-110 TESTED AT [address] (test nqyc=9772) [place] [address] POCT-GLUCOSE [id number] 16:32:00 Test Item Value Reference Range Comments POC-GLUCOSE METER (BEAKER) 161 mg/dL 70-110 TESTED AT [address] (test bbho=5009) [place] [address] POCT-GLUCOSE [id number] 12:02:00 Test Item Value Reference Range Comments POC-GLUCOSE METER (BEAKER) 149 mg/dL 70-110 TESTED AT [address] (test ptdi=7895) [place] [address] CBC W/PLT COUNT & AUTO [id number] 07:02:00 Test Item Value Reference Range Comments WHITE BLOOD CELL COUNT (BEAKER) (test bsxd=831) 8.4 K/ L 3.5-10.5 RED BLOOD CELL COUNT (BEAKER) (test roul=872) 3.07 M/ L 4.63-6.08 HEMOGLOBIN (BEAKER) (test eoxf=594) 9.1 GM/DL 13.7-17.5 HEMATOCRIT (BEAKER) (test xiqq=320) 30.9 % 40.1-51.0 MEAN CORPUSCULAR VOLUME (BEAKER) (test xxpw=099) 100.7 fL 79.0-92.2 MEAN CORPUSCULAR HEMOGLOBIN (BEAKER) (test 29.6 pg 25.7-32.2 ivdk=651) MEAN CORPUSCULAR HEMOGLOBIN CONC (BEAKER) (test 29.4 GM/DL 32.3-36.5 ilyo=199) RED CELL DISTRIBUTION WIDTH (BEAKER) (test 16.1 % 11.6-14.4 tfzz=164) PLATELET COUNT (BEAKER) (test apik=491) 374 K/CU MM 150-450 MEAN PLATELET VOLUME (BEAKER) (test dejr=799) 9.8 fL 9.4-12.4 NUCLEATED RED BLOOD CELLS (BEAKER) (test 0 /100 WBC 0-0 xrma=799) NEUTROPHILS RELATIVE PERCENT (BEAKER) (test 78 % iijw=913) LYMPHOCYTES RELATIVE PERCENT (BEAKER) (test 9 % mjdc=684) MONOCYTES RELATIVE PERCENT (BEAKER) (test 10 % edfr=097) EOSINOPHILS RELATIVE PERCENT (BEAKER) (test 3 % yoyz=559) BASOPHILS RELATIVE PERCENT (BEAKER) (test 1 % xnej=145) NEUTROPHILS ABSOLUTE COUNT (BEAKER) (test 6.53 K/ L 1.78-5.38 gsar=497) LYMPHOCYTES ABSOLUTE COUNT (BEAKER) (test 0.75 K/ L 1.32-3.57 cdcp=807) MONOCYTES ABSOLUTE COUNT (BEAKER) (test 0.81 K/ L 0.30-0.82 nbhb=032) EOSINOPHILS ABSOLUTE COUNT (BEAKER) (test 0.22 K/ L 0.04-0.54 yydk=286) BASOPHILS ABSOLUTE COUNT (BEAKER) (test 0.04 K/ L 0.01-0.08 eoxy=809) IMMATURE GRANULOCYTES-RELATIVE PERCENT (BEAKER) 1 % 0-1 (test pexd=8218) BASIC METABOLIC [id number] 06:59:00 Test Item Value Reference Range Comments SODIUM (BEAKER) (test 136 meq/L 136-145 awun=613) POTASSIUM (BEAKER) (test 3.8 meq/L 3.5-5.1 sohe=406) CHLORIDE (BEAKER) (test 104 meq/L 98-107 opsa=558) CO2 (BEAKER) (test 23 meq/L 22-29 ffwg=843) BLOOD UREA NITROGEN 26 mg/dL 7-21 (BEAKER) (test svfy=370) CREATININE (BEAKER) (test 1.30 mg/dL 0.57-1.25 azie=840) GLUCOSE RANDOM (BEAKER) 124 mg/dL 70-105 (test nqps=199) CALCIUM (BEAKER) (test 8.6 mg/dL 8.4-10.2 rwbh=332) EGFR (BEAKER) (test 54 mL/min/1.73 sq m ESTIMATED GFR IS NOT djol=0340) ACCURATE CREATININE CLEARANCE IN PREDICTING GLOMERULAR FILTRATION RATE. ESTIMATED GFR IS NOT APPLICABLE FOR DIALYSIS PATIENTS. POCT-GLUCOSE [id number] 06:40:00 Test Item Value Reference Range Comments POC-GLUCOSE METER (BEAKER) 158 mg/dL 70-110 TESTED AT [address] (test nxwh=8317) [facility] [address] POCT-GLUCOSE [id number] 20:50:00 Test Item Value Reference Range Comments POC-GLUCOSE METER (BEAKER) 174 mg/dL 70-110 TESTED AT [address] (test ymit=1947) [facility] [address] POCT-GLUCOSE [id number] 17:01:00 Test Item Value Reference Range Comments POC-GLUCOSE METER (BEAKER) 130 mg/dL 70-110 TESTED AT [address] (test ciye=4016) [facility] [address] POCT-GLUCOSE [id number] 12:02:00 Test Item Value Reference Range Comments POC-GLUCOSE METER (BEAKER) 194 mg/dL 70-110 TESTED AT [address] (test ivbz=7810) [facility] [address] POCT-GLUCOSE [id number] 06:25:00 Test Item Value Reference Range Comments POC-GLUCOSE METER (BEAKER) 130 mg/dL 70-110 TESTED AT [address] (test kque=2299) [place] [id number] POCT-GLUCOSE [id number] 19:53:00 Test Item Value Reference Range Comments POC-GLUCOSE METER (BEAKER) 188 mg/dL 70-110 TESTED AT [address] (test szcv=9313) [facility] [address] POCT-GLUCOSE [id number] 16:24:00 Test Item Value Reference Range Comments POC-GLUCOSE METER (BEAKER) 210 mg/dL 70-110 TESTED AT [address] (test tvof=0639) [facility] [address] POCT-GLUCOSE [id number] 11:20:00 Test Item Value Reference Range Comments POC-GLUCOSE METER (BEAKER) 186 mg/dL 70-110 TESTED AT [address] (test aprf=8676) [facility] [address] POCT-GLUCOSE [id number] 06:18:00 Test Item Value Reference Range Comments POC-GLUCOSE METER (BEAKER) 127 mg/dL 70-110 TESTED AT [address] (test rjfq=0489) [place] [address] POCT-GLUCOSE [id number] 20:48:00 Test Item Value Reference Range Comments POC-GLUCOSE METER (BEAKER) 166 mg/dL 70-110 TESTED AT [address] (test ndix=6924) [place] [address] POCT-GLUCOSE [id number] 16:51:00 Test Item Value Reference Range Comments POC-GLUCOSE METER (BEAKER) 153 mg/dL 70-110 TESTED AT [address] (test sohp=4688) [place] [address] B-TYPE NATRIURETIC FACTOR (BNP)2017-08-20 14:00:00 Test Item Value Reference Range Comments B-TYPE NATRIURETIC PEPTIDE (BEAKER) (test 422 pg/mL 0-100 avsb=284) POCT-GLUCOSE [id number] 12:02:00 Test Item Value Reference Range Comments POC-GLUCOSE METER (BEAKER) 203 mg/dL 70-110 TESTED AT [address] (test gyqt=4237) [place] [address] RAD, CHEST, 1 VIEW, NON [id number] 08:19:00Reason for exam:->pulm edema fupShould this be performed at the bedside?->YesFINAL REPORT Chest one view INDICATION: Pulmonary edema. Follow-up. COMPARISON: 08/15 IMPRESSION: The cardiac silhouette is enlarged. Aortic ectasia/tortuosity and mediastinal widening is stable. Median sternotomy changes are noted. There is pulmonary vascular congestion with interstitial and ground glass opacities suggestive of edema. Superimposed pneumonitis cannot be excluded, however. Dependent pleural effusions have likely redistributed. No pneumothorax is seen. Signed: Harriett Garnica Verified Date/Time: 08/20/2017 08:19:33 Reading Location: [facility] Radiology Reading Room POCT-GLUCOSE [id number] 05:10:00 Test Item Value Reference Range Comments POC-GLUCOSE METER (BEAKER) 138 mg/dL 70-110 TESTED AT [address] (test uoix=2347) [place] [id number] POCT-GLUCOSE [id number] 21:20:00 Test Item Value Reference Range Comments POC-GLUCOSE METER (BEAKER) 151 mg/dL 70-110 TESTED AT [address] (test tzdt=3789) [place] [id number] POCT-GLUCOSE [id number] 18:02:00 Test Item Value Reference Range Comments POC-GLUCOSE METER (BEAKER) 227 mg/dL 70-110 TESTED AT [address] (test pwyp=4240) [place] [address] POCT-GLUCOSE [id number] 11:42:00 Test Item Value Reference Range Comments POC-GLUCOSE METER (BEAKER) 212 mg/dL 70-110 TESTED AT [address] (test vaxe=9773) [place] [address] VITAMIN B12 AND [id number] 07:11:00 Test Item Value Reference Range Comments VITAMIN B12 (BEAKER) (test yrxg=386) 654 pg/mL 213-816 FOLATE (BEAKER) (test qiuu=375) 4.4 ng/mL >=7.0 POCT-GLUCOSE [id number] 06:14:00 Test Item Value Reference Range Comments POC-GLUCOSE METER (BEAKER) 144 mg/dL 70-110 TESTED AT [address] (test emlk=3914) [place] [address] CT, CHEST, WITHOUT [id number] 22:14:00FINAL REPORT CT, CHEST, WITHOUT CONTRAST INDICATION: eval pleural thickening,+ asbestos exposure, dyspnea COMPARISON: None TECHNIQUE: Noncontrast axially oriented images were obtained from the thoracic inlet through the lung bases. Coronal and sagittal reformats were provided.DOSE REDUCTION: Dose modulation, iterative reconstruction, and/or weight-based [...] at the right base. There is no pneumothorax.Central airways: No obstructing lesion or mucoid material.Mediastinum: No adenopathy.Heart and pericardium: Prominent cardiac size. Moderate, predominantly posterior pericardial effusion. Dense calcified coronary artery disease.Great vessels: Normal calibers. Included upper abdomen: No acute abnormalities.Regional skeletal structures: Demineralization and multilevel degenerative changes. No acute or traumatic abnormality. Additional findings: None. IMPRESSION: Asymmetric pleural thickening, greatest on the left. No pleural calcifications. Predominantly basilar interstitial prominence may reflect subsegmental atelectasis or mild edema. Moderate, posterior pericardial effusion of indeterminate etiology and significance. Signed: JR Spencer Robert MDReport Verified Date/Time: 08/18/2017 22:14:14 Reading Location: [facility] B1 C013Y CT Body Reading Room POCT-GLUCOSE [id number] 21: 03:00 Test Item Value Reference Range Comments POC-GLUCOSE METER (BEAKER) 179 mg/dL 70-110 TESTED AT [address] (test agbt=2705) [place] [address] POCT-GLUCOSE [id number] 16:32:00 Test Item Value Reference Range Comments POC-GLUCOSE METER (BEAKER) 147 mg/dL 70-110 TESTED AT [address] (test wtba=0181) [place] [id number] POCT-GLUCOSE [id number] 12:07:00 Test Item Value Reference Range Comments POC-GLUCOSE METER (BEAKER) 171 mg/dL 70-110 TESTED AT [address] (test ycff=2722) [facility] [address] BASIC METABOLIC [id number] 06:31:00 Test Item Value Reference Range Comments SODIUM (BEAKER) (test 136 meq/L 136-145 wpfe=439) POTASSIUM (BEAKER) (test 4.2 meq/L 3.5-5.1 nkwx=869) CHLORIDE (BEAKER) (test 104 meq/L 98-107 hsgw=001) CO2 (BEAKER) (test 23 meq/L 22-29 kxxg=170) BLOOD UREA NITROGEN 27 mg/dL 7-21 (BEAKER) (test odmz=671) CREATININE (BEAKER) (test 1.28 mg/dL 0.57-1.25 ovic=809) GLUCOSE RANDOM (BEAKER) 123 mg/dL 70-105 (test biwh=951) CALCIUM (BEAKER) (test 8.4 mg/dL 8.4-10.2 njea=567) EGFR (BEAKER) (test 55 mL/min/1.73 sq m ESTIMATED GFR IS NOT jctt=4737) ACCURATE CREATININE CLEARANCE IN PREDICTING GLOMERULAR FILTRATION RATE. ESTIMATED GFR IS NOT APPLICABLE FOR DIALYSIS PATIENTS. POCT-GLUCOSE [id number] 05:42:00 Test Item Value Reference Range Comments POC-GLUCOSE METER (BEAKER) 132 mg/dL 70-[address] [facility] [address] [facility] (test ejlj=3089) [facility] [address] CBC W/PLT COUNT & AUTO [id number] 05:39:00 Test Item Value Reference Range Comments WHITE BLOOD CELL COUNT (BEAKER) (test xodl=311) 8.6 K/ L 3.5-10.5 RED BLOOD CELL COUNT (BEAKER) (test hsbb=287) 2.69 M/ L 4.63-6.08 HEMOGLOBIN (BEAKER) (test wrkf=021) 8.3 GM/DL 13.7-17.5 HEMATOCRIT (BEAKER) (test uojr=149) 27.6 % 40.1-51.0 MEAN CORPUSCULAR VOLUME (BEAKER) (test vcie=712) 102.6 fL 79.0-92.2 MEAN CORPUSCULAR HEMOGLOBIN (BEAKER) (test 30.9 pg 25.7-32.2 xxte=164) MEAN CORPUSCULAR HEMOGLOBIN CONC (BEAKER) (test 30.1 GM/DL 32.3-36.5 flzh=065) RED CELL DISTRIBUTION WIDTH (BEAKER) (test 16.6 % 11.6-14.4 zpql=450) PLATELET COUNT (BEAKER) (test ldzg=136) 407 K/CU MM 150-450 MEAN PLATELET VOLUME (BEAKER) (test wxss=396) 9.4 fL 9.4-12.4 NUCLEATED RED BLOOD CELLS (BEAKER) (test 0 /100 WBC 0-0 nxkx=773) NEUTROPHILS RELATIVE PERCENT (BEAKER) (test 76 % ktja=974) LYMPHOCYTES RELATIVE PERCENT (BEAKER) (test 11 % sdvp=220) MONOCYTES RELATIVE PERCENT (BEAKER) (test 7 % uiyo=519) EOSINOPHILS RELATIVE PERCENT (BEAKER) (test 6 % aldd=446) BASOPHILS RELATIVE PERCENT (BEAKER) (test 1 % ofgv=115) NEUTROPHILS ABSOLUTE COUNT (BEAKER) (test 6.51 K/ L 1.78-5.38 lgkk=370) LYMPHOCYTES ABSOLUTE COUNT (BEAKER) (test 0.90 K/ L 1.32-3.57 ojia=479) MONOCYTES ABSOLUTE COUNT (BEAKER) (test 0.58 K/ L 0.30-0.82 crmy=668) EOSINOPHILS ABSOLUTE COUNT (BEAKER) (test 0.51 K/ L 0.04-0.54 zqem=522) BASOPHILS ABSOLUTE COUNT (BEAKER) (test 0.04 K/ L 0.01-0.08 iyxf=577) IMMATURE GRANULOCYTES-RELATIVE PERCENT (BEAKER) 1 % 0-1 (test zpbu=9809) POCT-GLUCOSE [id number] 20:21:00 Test Item Value Reference Range Comments POC-GLUCOSE METER (BEAKER) 168 mg/dL 70-110 TESTED AT [address] (test ipxr=5184) [place] [id number] POCT-GLUCOSE [id number] 17:12:00 Test Item Value Reference Range Comments POC-GLUCOSE METER (BEAKER) 149 mg/dL 70-110 TESTED AT [address] (test frxv=1581) [facility] [address] POCT-GLUCOSE [id number] 11:46:00 Test Item Value Reference Range Comments POC-GLUCOSE METER (BEAKER) 138 mg/dL 70-110 TESTED AT [address] (test qxxt=7860) [facility] [address] BASIC METABOLIC [id number] 08:56:00 Test Item Value Reference Range Comments SODIUM (BEAKER) (test 137 meq/L 136-145 sqex=204) POTASSIUM (BEAKER) (test 4.0 meq/L 3.5-5.1 ypbo=716) CHLORIDE (BEAKER) (test 106 meq/L 98-107 czfn=113) CO2 (BEAKER) (test 22 meq/L 22-29 pxmy=265) BLOOD UREA NITROGEN 28 mg/dL 7-21 (BEAKER) (test sxxv=434) CREATININE (BEAKER) (test 1.34 mg/dL 0.57-1.25 vtcr=354) GLUCOSE RANDOM (BEAKER) 124 mg/dL 70-105 (test bgfo=268) CALCIUM (BEAKER) (test 8.2 mg/dL 8.4-10.2 srvz=466) EGFR (BEAKER) (test 52 mL/min/1.73 sq m ESTIMATED GFR IS NOT vlqy=2813) ACCURATE CREATININE CLEARANCE IN PREDICTING GLOMERULAR FILTRATION RATE. ESTIMATED GFR IS NOT APPLICABLE FOR DIALYSIS PATIENTS. POCT-GLUCOSE [id number] 05:44:00 Test Item Value Reference Range Comments POC-GLUCOSE METER (BEAKER) 139 mg/dL 70-110 TESTED AT [address] (test ardz=7530) [facility] [address] POCT-GLUCOSE [id number] 20:33:00 Test Item Value Reference Range Comments POC-GLUCOSE METER (BEAKER) 145 mg/dL 70-110 TESTED AT [address] (test bmqi=2810) [facility] [address] POCT-GLUCOSE [id number] 16:39:00 Test Item Value Reference Range Comments POC-GLUCOSE METER (BEAKER) 177 mg/dL 70-110 TESTED AT [address] (test tpdu=7210) [facility] [address] POCT-GLUCOSE [id number] 12:01:00 Test Item Value Reference Range Comments POC-GLUCOSE METER (BEAKER) 200 mg/dL 70-110 TESTED AT [address] (test xyrr=5163) [facility] [address] POCT-GLUCOSE [id number] 05:56:00 Test Item Value Reference Range Comments POC-GLUCOSE METER (BEAKER) 167 mg/dL 70-110 TESTED AT [address] (test ziil=4592) [facility] [address] POCT-GLUCOSE [id number] 20:34:00 Test Item Value Reference Range Comments POC-GLUCOSE METER (BEAKER) 217 mg/dL 70-110 TESTED AT [address] (test rfwc=3773) [facility] [address] POCT-GLUCOSE [id number] 18:24:00 Test Item Value Reference Range Comments POC-GLUCOSE METER (BEAKER) 190 mg/dL 70-110 TESTED AT [address] (test cyvu=2270) [facility] [address] POCT-GLUCOSE [id number] 16:22:00 Test Item Value Reference Range Comments POC-GLUCOSE METER (BEAKER) 233 mg/dL 70-110 TESTED AT [address] (test kmtg=9407) [facility] [address] POCT-GLUCOSE [id number] 12:13:00 Test Item Value Reference Range Comments POC-GLUCOSE METER (BEAKER) 235 mg/dL 70-[address] [facility] [address] [facility] (test ztad=5350) [facility] [address] RAD, CHEST, 2 [id number] 09:16:00Reason for exam:->sobFINAL REPORT Two frontal and one lateral chest images compared to August 14 Discussion: Cardiomegaly and pulmonary congestion are present. I could not exclude a small right effusion although pleural thickening would have a similar appearance. No pneumothorax. IMPRESSIONS: No change Signed: Taty Osborne Verified Date/Time: 08/15/2017 09:16:20 Reading Location: [facility] Radiology Reading Room BASIC METABOLIC [id number] 06:45:00 Test Item Value Reference Range Comments SODIUM (BEAKER) (test 136 meq/L 136-145 wqqq=840) POTASSIUM (BEAKER) (test 4.3 meq/L 3.5-5.1 qybk=646) CHLORIDE (BEAKER) (test 106 meq/L 98-107 egle=735) CO2 (BEAKER) (test 21 meq/L 22-29 ivmg=171) BLOOD UREA NITROGEN 32 mg/dL 7-21 (BEAKER) (test xmhj=795) CREATININE (BEAKER) (test 1.41 mg/dL 0.57-1.25 cadl=337) GLUCOSE RANDOM (BEAKER) 127 mg/dL 70-105 (test wncf=763) CALCIUM (BEAKER) (test 8.3 mg/dL 8.4-10.2 auof=998) EGFR (BEAKER) (test 49 mL/min/1.73 sq m ESTIMATED GFR IS NOT sidh=2711) ACCURATE CREATININE CLEARANCE IN PREDICTING GLOMERULAR FILTRATION RATE. ESTIMATED GFR IS NOT APPLICABLE FOR DIALYSIS PATIENTS. CBC W/PLT COUNT & AUTO [id number] 05:31:00 Test Item Value Reference Range Comments WHITE BLOOD CELL COUNT (BEAKER) (test zbsa=051) 11.0 K/ L 3.5-10.5 RED BLOOD CELL COUNT (BEAKER) (test ynki=050) 2.56 M/ L 4.63-6.08 HEMOGLOBIN (BEAKER) (test xmhr=953) 7.9 GM/DL 13.7-17.5 HEMATOCRIT (BEAKER) (test vvet=192) 26.4 % 40.1-51.0 MEAN CORPUSCULAR VOLUME (BEAKER) (test cpao=322) 103.1 fL 79.0-92.2 MEAN CORPUSCULAR HEMOGLOBIN (BEAKER) (test 30.9 pg 25.7-32.2 nsxc=315) MEAN CORPUSCULAR HEMOGLOBIN CONC (BEAKER) (test 29.9 GM/DL 32.3-36.5 szuv=269) RED CELL DISTRIBUTION WIDTH (BEAKER) (test 16.3 % 11.6-14.4 gfgj=725) PLATELET COUNT (BEAKER) (test afcq=687) 470 K/CU MM 150-450 MEAN PLATELET VOLUME (BEAKER) (test jghv=037) 9.7 fL 9.4-12.4 NUCLEATED RED BLOOD CELLS (BEAKER) (test 0 /100 WBC 0-0 lved=463) NEUTROPHILS RELATIVE PERCENT (BEAKER) (test 79 % qjgc=534) LYMPHOCYTES RELATIVE PERCENT (BEAKER) (test 9 % mrdf=639) MONOCYTES RELATIVE PERCENT (BEAKER) (test 7 % zxut=301) EOSINOPHILS RELATIVE PERCENT (BEAKER) (test 5 % juqk=992) BASOPHILS RELATIVE PERCENT (BEAKER) (test 1 % ooga=168) NEUTROPHILS ABSOLUTE COUNT (BEAKER) (test 8.65 K/ L 1.78-5.38 qoys=212) LYMPHOCYTES ABSOLUTE COUNT (BEAKER) (test 0.99 K/ L 1.32-3.57 uihh=487) MONOCYTES ABSOLUTE COUNT (BEAKER) (test 0.76 K/ L 0.30-0.82 coyo=616) EOSINOPHILS ABSOLUTE COUNT (BEAKER) (test 0.51 K/ L 0.04-0.54 wyvl=180) BASOPHILS ABSOLUTE COUNT (BEAKER) (test 0.06 K/ L 0.01-0.08 kady=948) IMMATURE GRANULOCYTES-RELATIVE PERCENT (BEAKER) 1 % 0-1 (test txpr=4562) POCT-GLUCOSE [id number] 03:46:00 Test Item Value Reference Range Comments POC-GLUCOSE METER (BEAKER) 235 mg/dL 70-110 TESTED AT [address] (test pxyx=6287) [facility] [address] POCT-GLUCOSE [id number] 20:54:00 Test Item Value Reference Range Comments POC-GLUCOSE METER (BEAKER) 205 mg/dL 70-110 TESTED AT [address] (test tekd=9722) [place] [id number] RAD, CHEST, 1 VIEW, NON [id number] 15:21:00Reason for exam:->sobShould this be performed at the bedside?->YesFINAL REPORT TECHNIQUE: Frontal chest radiograph dated 08/14/2017. CLINICAL HISTORY: Shortness of breath COMPARISON STUDY: Chest radiograph dated 08/11/2017 IMPRESSION:There are ill defined haziness over both lungs bilaterally, likely due to layering effusions. No pleural effusion or pneumothorax. Cardiomediastinal silhouette is stable in size. No pulmonary edema. Midline sternotomy wires are intact and well aligned. No fracture. Degenerative changes are seen in the spine. Signed: Candelario Mcdanielseport Verified Date/Time: 08/14/2017 15:21:32 Reading Location: [facility] Radiology Reading Room POCT- GLUCOSE [id number] 13:31:00 Test Item Value Reference Range Comments POC-GLUCOSE METER (BEAKER) 229 mg/dL 70-110 TESTED AT [address] (test ggqz=7317) [facility] [address] POCT-GLUCOSE [id number] 10:21:00 Test Item Value Reference Range Comments POC-GLUCOSE METER (BEAKER) 189 mg/dL 70-110 TESTED AT [address] (test nbux=2592) [facility] [address] [id number] 04:50:00 Test Item Value Reference Range Comments MAGNESIUM (BEAKER) (test wjcq=321) 1.6 mg/dL 1.6-2.6 BASIC METABOLIC [id number] 04:50:00 Test Item Value Reference Range Comments SODIUM (BEAKER) (test 132 meq/L 136-145 zzoe=889) POTASSIUM (BEAKER) (test 4.2 meq/L 3.5-5.1 jkvj=209) CHLORIDE (BEAKER) (test 105 meq/L 98-107 moch=075) CO2 (BEAKER) (test 20 meq/L 22-29 ubgn=732) BLOOD UREA NITROGEN 36 mg/dL 7-21 (BEAKER) (test jpde=582) CREATININE (BEAKER) (test 1.28 mg/dL 0.57-1.25 nygf=561) GLUCOSE RANDOM (BEAKER) 136 mg/dL 70-105 (test dkil=069) CALCIUM (BEAKER) (test 8.0 mg/dL 8.4-10.2 fonr=340) EGFR (BEAKER) (test 55 mL/min/1.73 sq m ESTIMATED GFR IS NOT khmk=4988) ACCURATE CREATININE CLEARANCE IN PREDICTING GLOMERULAR FILTRATION RATE. ESTIMATED GFR IS NOT APPLICABLE FOR DIALYSIS PATIENTS. CBC W/PLT COUNT & AUTO [id number] 04:34:00 Test Item Value Reference Range Comments WHITE BLOOD CELL COUNT (BEAKER) (test mbkj=220) 10.4 K/ L 3.5-10.5 RED BLOOD CELL COUNT (BEAKER) (test xqef=153) 2.53 M/ L 4.63-6.08 HEMOGLOBIN (BEAKER) (test tols=325) 7.8 GM/DL 13.7-17.5 HEMATOCRIT (BEAKER) (test zjva=855) 25.9 % 40.1-51.0 MEAN CORPUSCULAR VOLUME (BEAKER) (test yuuq=078) 102.4 fL 79.0-92.2 MEAN CORPUSCULAR HEMOGLOBIN (BEAKER) (test 30.8 pg 25.7-32.2 vrtd=322) MEAN CORPUSCULAR HEMOGLOBIN CONC (BEAKER) (test 30.1 GM/DL 32.3-36.5 ezhu=805) RED CELL DISTRIBUTION WIDTH (BEAKER) (test 15.9 % 11.6-14.4 wacr=366) PLATELET COUNT (BEAKER) (test fsxc=111) 479 K/CU MM 150-450 MEAN PLATELET VOLUME (BEAKER) (test juqa=380) 9.7 fL 9.4-12.4 NUCLEATED RED BLOOD CELLS (BEAKER) (test 0 /100 WBC 0-0 rmms=378) NEUTROPHILS RELATIVE PERCENT (BEAKER) (test 78 % ikxw=242) LYMPHOCYTES RELATIVE PERCENT (BEAKER) (test 9 % curc=005) MONOCYTES RELATIVE PERCENT (BEAKER) (test 7 % usqh=121) EOSINOPHILS RELATIVE PERCENT (BEAKER) (test 5 % qgmk=306) BASOPHILS RELATIVE PERCENT (BEAKER) (test 1 % gfgd=006) NEUTROPHILS ABSOLUTE COUNT (BEAKER) (test 8.06 K/ L 1.78-5.38 bycr=211) LYMPHOCYTES ABSOLUTE COUNT (BEAKER) (test 0.93 K/ L 1.32-3.57 sbbi=631) MONOCYTES ABSOLUTE COUNT (BEAKER) (test 0.68 K/ L 0.30-0.82 tjqp=288) EOSINOPHILS ABSOLUTE COUNT (BEAKER) (test 0.52 K/ L 0.04-0.54 ouii=918) BASOPHILS ABSOLUTE COUNT (BEAKER) (test 0.07 K/ L 0.01-0.08 xepx=833) IMMATURE GRANULOCYTES-RELATIVE PERCENT (BEAKER) 1 % 0-1 (test pqbg=1938) POCT-GLUCOSE [id number] 21:22:00 Test Item Value Reference Range Comments POC-GLUCOSE METER (BEAKER) 232 mg/dL 70-110 TESTED AT [address] (test mcoy=9556) [place] [address] POCT-GLUCOSE [id number] 17:34:00 Test Item Value Reference Range Comments POC-GLUCOSE METER (BEAKER) 205 mg/dL 70-110 TESTED AT [address] (test pdzc=2553) [place] [address] POCT-GLUCOSE [id number] 08:22:00 Test Item Value Reference Range Comments POC-GLUCOSE METER (BEAKER) 163 mg/dL 70-110 TESTED AT [address] (test nvpm=2469) [place] [address] CBC W/PLT COUNT & AUTO [id number] 05:45:00 Test Item Value Reference Range Comments WHITE BLOOD CELL COUNT (BEAKER) (test pjyh=268) 9.6 K/ L 3.5-10.5 RED BLOOD CELL COUNT (BEAKER) (test qdjf=485) 2.63 M/ L 4.63-6.08 HEMOGLOBIN (BEAKER) (test otxq=774) 8.2 GM/DL 13.7-17.5 HEMATOCRIT (BEAKER) (test iqmf=109) 27.0 % 40.1-51.0 MEAN CORPUSCULAR VOLUME (BEAKER) (test iehv=949) 102.7 fL 79.0-92.2 MEAN CORPUSCULAR HEMOGLOBIN (BEAKER) (test 31.2 pg 25.7-32.2 pvwz=167) MEAN CORPUSCULAR HEMOGLOBIN CONC (BEAKER) (test 30.4 GM/DL 32.3-36.5 utki=715) RED CELL DISTRIBUTION WIDTH (BEAKER) (test 15.8 % 11.6-14.4 bpeq=233) PLATELET COUNT (BEAKER) (test nnjw=811) 469 K/CU MM 150-450 MEAN PLATELET VOLUME (BEAKER) (test fdal=596) 9.4 fL 9.4-12.4 NUCLEATED RED BLOOD CELLS (BEAKER) (test 0 /100 WBC 0-0 qiww=220) NEUTROPHILS RELATIVE PERCENT (BEAKER) (test 75 % rpns=193) LYMPHOCYTES RELATIVE PERCENT (BEAKER) (test 11 % gzna=687) MONOCYTES RELATIVE PERCENT (BEAKER) (test 7 % apto=773) EOSINOPHILS RELATIVE PERCENT (BEAKER) (test 6 % vhma=923) BASOPHILS RELATIVE PERCENT (BEAKER) (test 1 % erbv=325) NEUTROPHILS ABSOLUTE COUNT (BEAKER) (test 7.13 K/ L 1.78-5.38 pefv=006) LYMPHOCYTES ABSOLUTE COUNT (BEAKER) (test 1.03 K/ L 1.32-3.57 cgql=303) MONOCYTES ABSOLUTE COUNT (BEAKER) (test 0.71 K/ L 0.30-0.82 agwj=537) EOSINOPHILS ABSOLUTE COUNT (BEAKER) (test 0.57 K/ L 0.04-0.54 mvyz=272) BASOPHILS ABSOLUTE COUNT (BEAKER) (test 0.06 K/ L 0.01-0.08 buxq=140) IMMATURE GRANULOCYTES-RELATIVE PERCENT (BEAKER) 1 % 0-1 (test lgem=6222) BASIC METABOLIC [id number] 05:43:00 Test Item Value Reference Range Comments SODIUM (BEAKER) (test 131 meq/L 136-145 swzu=622) POTASSIUM (BEAKER) (test 4.2 meq/L 3.5-5.1 gtmp=111) CHLORIDE (BEAKER) (test 105 meq/L 98-107 znui=746) CO2 (BEAKER) (test 21 meq/L 22-29 lxbx=005) BLOOD UREA NITROGEN 31 mg/dL 7-21 (BEAKER) (test yiaj=501) CREATININE (BEAKER) (test 1.32 mg/dL 0.57-1.25 xuoo=473) GLUCOSE RANDOM (BEAKER) 138 mg/dL 70-105 (test uvqc=614) CALCIUM (BEAKER) (test 8.0 mg/dL 8.4-10.2 jtid=518) EGFR (BEAKER) (test 53 mL/min/1.73 sq m ESTIMATED GFR IS NOT lioh=1487) ACCURATE CREATININE CLEARANCE IN PREDICTING GLOMERULAR FILTRATION RATE. ESTIMATED GFR IS NOT APPLICABLE FOR DIALYSIS PATIENTS. POCT-GLUCOSE [id number] 21:11:00 Test Item Value Reference Range Comments POC-GLUCOSE METER (BEAKER) 201 mg/dL 70-110 TESTED AT [address] (test qfmo=9299) [place] [address] POCT-GLUCOSE [id number] 18:21:00 Test Item Value Reference Range Comments POC-GLUCOSE METER (BEAKER) 187 mg/dL 70-110 TESTED AT [address] (test epdg=7039) [place] [address] POCT-GLUCOSE [id number] 13:12:00 Test Item Value Reference Range Comments POC-GLUCOSE METER (BEAKER) 162 mg/dL 70-110 TESTED AT [address] (test wize=1865) [place] [address] POCT-GLUCOSE [id number] 08:08:00 Test Item Value Reference Range Comments POC-GLUCOSE METER (BEAKER) 138 mg/dL 70-110 TESTED AT [address] (test hiod=9593) [place] [address] BASIC METABOLIC [id number] 06:47:00 Test Item Value Reference Range Comments SODIUM (BEAKER) (test 133 meq/L 136-145 uvgk=916) POTASSIUM (BEAKER) (test 4.8 meq/L 3.5-5.1 iwzm=868) CHLORIDE (BEAKER) (test 105 meq/L 98-107 ufgg=280) CO2 (BEAKER) (test 20 meq/L 22-29 szzj=059) BLOOD UREA NITROGEN 31 mg/dL 7-21 (BEAKER) (test dztp=193) CREATININE (BEAKER) (test 1.35 mg/dL 0.57-1.25 tado=791) GLUCOSE RANDOM (BEAKER) 129 mg/dL 70-105 (test fzdt=165) CALCIUM (BEAKER) (test 7.9 mg/dL 8.4-10.2 qlrb=158) EGFR (BEAKER) (test 52 mL/min/1.73 sq m ESTIMATED GFR IS NOT tdqh=1934) ACCURATE CREATININE CLEARANCE IN PREDICTING GLOMERULAR FILTRATION RATE. ESTIMATED GFR IS NOT APPLICABLE FOR DIALYSIS PATIENTS. CBC W/PLT COUNT & AUTO [id number] 05:08:00 Test Item Value Reference Range Comments WHITE BLOOD CELL COUNT (BEAKER) (test fnum=486) 10.4 K/ L 3.5-10.5 RED BLOOD CELL COUNT (BEAKER) (test ktxp=783) 2.92 M/ L 4.63-6.08 HEMOGLOBIN (BEAKER) (test iukt=736) 9.0 GM/DL 13.7-17.5 HEMATOCRIT (BEAKER) (test pfwa=391) 29.7 % 40.1-51.0 MEAN CORPUSCULAR VOLUME (BEAKER) (test iqtk=468) 101.7 fL 79.0-92.2 MEAN CORPUSCULAR HEMOGLOBIN (BEAKER) (test 30.8 pg 25.7-32.2 mkxf=331) MEAN CORPUSCULAR HEMOGLOBIN CONC (BEAKER) (test 30.3 GM/DL 32.3-36.5 siqy=506) RED CELL DISTRIBUTION WIDTH (BEAKER) (test 15.9 % 11.6-14.4 gubz=799) PLATELET COUNT (BEAKER) (test crwu=113) 537 K/CU MM 150-450 MEAN PLATELET VOLUME (BEAKER) (test ojhe=928) 9.7 fL 9.4-12.4 NUCLEATED RED BLOOD CELLS (BEAKER) (test 0 /100 WBC 0-0 mxix=311) NEUTROPHILS RELATIVE PERCENT (BEAKER) (test 78 % lurj=330) LYMPHOCYTES RELATIVE PERCENT (BEAKER) (test 9 % dvdf=040) MONOCYTES RELATIVE PERCENT (BEAKER) (test 7 % gqjw=789) EOSINOPHILS RELATIVE PERCENT (BEAKER) (test 5 % maxn=158) BASOPHILS RELATIVE PERCENT (BEAKER) (test 1 % voen=251) NEUTROPHILS ABSOLUTE COUNT (BEAKER) (test 8.09 K/ L 1.78-5.38 xdoa=002) LYMPHOCYTES ABSOLUTE COUNT (BEAKER) (test 0.96 K/ L 1.32-3.57 jptd=185) MONOCYTES ABSOLUTE COUNT (BEAKER) (test 0.68 K/ L 0.30-0.82 nhhe=880) EOSINOPHILS ABSOLUTE COUNT (BEAKER) (test 0.52 K/ L 0.04-0.54 pmbu=499) BASOPHILS ABSOLUTE COUNT (BEAKER) (test 0.05 K/ L 0.01-0.08 eyke=952) IMMATURE GRANULOCYTES-RELATIVE PERCENT (BEAKER) 1 % 0-1 (test kvsl=6221) POCT-GLUCOSE [id number] 21:13:00 Test Item Value Reference Range Comments POC-GLUCOSE METER (BEAKER) 169 mg/dL 70-110 TESTED AT [address] (test jrvo=0189) [place] [id number] RAD, CHEST, 1 VIEW, NON [id number] 17:14:00Reason for exam:->Chest Tube RemovalShould this be performed at the bedside?->YesFINAL REPORT Portable chest. Clinical history: Chest tube removal. COMPARISONSTUDY: August 11, 2017. FINDINGS: The cardiac silhouette is enlarged. The patient is status post sternotomy. A possible tiny loculated pneumothorax is seen in the right midlung field. The remaining pulmonary parenchyma demonstrates increased interstitial markings. Blunting of the costophrenic angles ispresent. Degenerative changes are seen. IMPRESSION: Possible tiny loculated pneumothorax in the right midlung field. Signed: Percy Sumner MDReport Verified Date/Time: 08/11/2017 17:14:23 Reading Location: [address] Radiology Reading Room POCT-GLUCOSE [id number] 17:09:00 Test Item Value Reference Range Comments POC-GLUCOSE METER (BEAKER) 238 mg/dL 70-110 TESTED AT [address] (test wrzg=7874) [facility] [address] RAD, CHEST, 1 VIEW, NON [id number] 13:25:00Reason for exam:->pl effusionShould this be performed at the bedside?->YesFINAL REPORT AP chest HISTORY: Pleural effusion COMPARISON: 08/05/2017 IMPRESSION :Stable cardiac silhouette enlargement. Layering left effusion unchanged. Possible small right effusion. No pneumothorax. Mild vascular congestion. Signed : Manuel Fraser MDReport Verified Date/Time: 08/11/2017 13:25:17 Reading Location: [facility] Reading Room POCT-GLUCOSE [id number] 12:07:00 Test Item Value Reference Range Comments POC-GLUCOSE METER (BEAKER) 244 mg/dL 70-110 TESTED AT [address] (test vilc=2667) [facility] [address] POCT-GLUCOSE [id number] 08:49:00 Test Item Value Reference Range Comments POC-GLUCOSE METER (BEAKER) 199 mg/dL 70-110 TESTED AT [address] (test pyob=6952) [facility] [address] BASIC METABOLIC [id number] 07:01:00 Test Item Value Reference Range Comments SODIUM (BEAKER) (test 133 meq/L 136-145 skux=230) POTASSIUM (BEAKER) (test 4.6 meq/L 3.5-5.1 ymln=551) CHLORIDE (BEAKER) (test 105 meq/L 98-107 afxl=532) CO2 (BEAKER) (test 20 meq/L 22-29 gpub=729) BLOOD UREA NITROGEN 33 mg/dL 7-21 (BEAKER) (test mnax=179) CREATININE (BEAKER) (test 1.44 mg/dL 0.57-1.25 pplp=423) GLUCOSE RANDOM (BEAKER) 132 mg/dL 70-105 (test welo=020) CALCIUM (BEAKER) (test 8.1 mg/dL 8.4-10.2 peqq=500) EGFR (BEAKER) (test 48 mL/min/1.73 sq m ESTIMATED GFR IS NOT hgtt=4986) ACCURATE CREATININE CLEARANCE IN PREDICTING GLOMERULAR FILTRATION RATE. ESTIMATED GFR IS NOT APPLICABLE FOR DIALYSIS PATIENTS. CBC W/PLT COUNT & AUTO [id number] 05:42:00 Test Item Value Reference Range Comments WHITE BLOOD CELL COUNT (BEAKER) (test pdtr=950) 10.9 K/ L 3.5-10.5 RED BLOOD CELL COUNT (BEAKER) (test rhdz=529) 2.84 M/ L 4.63-6.08 HEMOGLOBIN (BEAKER) (test vxnh=627) 8.9 GM/DL 13.7-17.5 HEMATOCRIT (BEAKER) (test omrx=402) 30.0 % 40.1-51.0 MEAN CORPUSCULAR VOLUME (BEAKER) (test orzn=998) 105.6 fL 79.0-92.2 MEAN CORPUSCULAR HEMOGLOBIN (BEAKER) (test 31.3 pg 25.7-32.2 stij=154) MEAN CORPUSCULAR HEMOGLOBIN CONC (BEAKER) (test 29.7 GM/DL 32.3-36.5 wxpv=711) RED CELL DISTRIBUTION WIDTH (BEAKER) (test 15.8 % 11.6-14.4 drdn=174) PLATELET COUNT (BEAKER) (test ndgb=143) 528 K/CU MM 150-450 MEAN PLATELET VOLUME (BEAKER) (test adhc=900) 10.1 fL 9.4-12.4 NUCLEATED RED BLOOD CELLS (BEAKER) (test 0 /100 WBC 0-0 ecmn=606) NEUTROPHILS RELATIVE PERCENT (BEAKER) (test 77 % ehhr=770) LYMPHOCYTES RELATIVE PERCENT (BEAKER) (test 9 % pfhh=535) MONOCYTES RELATIVE PERCENT (BEAKER) (test 7 % njsh=243) EOSINOPHILS RELATIVE PERCENT (BEAKER) (test 5 % zlzj=311) BASOPHILS RELATIVE PERCENT (BEAKER) (test 1 % hrip=192) NEUTROPHILS ABSOLUTE COUNT (BEAKER) (test 8.44 K/ L 1.78-5.38 volf=500) LYMPHOCYTES ABSOLUTE COUNT (BEAKER) (test 1.01 K/ L 1.32-3.57 sagj=844) MONOCYTES ABSOLUTE COUNT (BEAKER) (test 0.75 K/ L 0.30-0.82 tgsa=826) EOSINOPHILS ABSOLUTE COUNT (BEAKER) (test 0.53 K/ L 0.04-0.54 ycpx=570) BASOPHILS ABSOLUTE COUNT (BEAKER) (test 0.08 K/ L 0.01-0.08 oriu=007) IMMATURE GRANULOCYTES-RELATIVE PERCENT (BEAKER) 1 % 0-1 (test jyyr=2677) POCT-GLUCOSE [id number] 21:27:00 Test Item Value Reference Range Comments POC-GLUCOSE METER (BEAKER) 193 mg/dL 70-110 TESTED AT [address] (test yqzm=5061) [facility] [id number] POCT-GLUCOSE [id number] 17:12:00 Test Item Value Reference Range Comments POC-GLUCOSE METER (BEAKER) 195 mg/dL 70-110 TESTED AT [address] (test qlik=6913) [facility] [id number] POCT-GLUCOSE [id number] 12:43:00 Test Item Value Reference Range Comments POC-GLUCOSE METER (BEAKER) 215 mg/dL 70-110 TESTED AT [address] (test gnrw=5963) [facility] [id number] POCT-GLUCOSE [id number] 07:30:00 Test Item Value Reference Range Comments POC-GLUCOSE METER (BEAKER) 160 mg/dL 70-110 TESTED AT [address] (test lbzh=2132) [facility] [id number] CBC W/PLT COUNT & AUTO [id number] 05:56:00 Test Item Value Reference Range Comments WHITE BLOOD CELL COUNT 10.0 K/ L 3.5-10.5 (BEAKER) (test pbce=469) RED BLOOD CELL COUNT (BEAKER) 2.96 M/ L 4.63-6.08 (test xvoq=221) HEMOGLOBIN (BEAKER) (test 9.1 GM/DL 13.7-17.5 rigp=661) HEMATOCRIT (BEAKER) (test 30.1 % 40.1-51.0 krnt=717) MEAN CORPUSCULAR VOLUME 101.7 fL 79.0-92.2 (BEAKER) (test czwz=451) MEAN CORPUSCULAR HEMOGLOBIN 30.7 pg 25.7-32.2 (BEAKER) (test bqvr=022) MEAN CORPUSCULAR HEMOGLOBIN 30.2 GM/DL 32.3-36.5 CONC (BEAKER) (test rmbq=684) RED CELL DISTRIBUTION WIDTH 15.7 % 11.6-14.4 (BEAKER) (test zqtk=680) PLATELET COUNT (BEAKER) (test 510 K/CU MM 150-450 Discordant PLT result bgbg=114) Compared to previous one, Clinical correlation required. MEAN PLATELET VOLUME (BEAKER) 10.0 fL 9.4-12.4 (test qigi=026) NUCLEATED RED BLOOD CELLS 0 /100 WBC 0-0 (BEAKER) (test itcw=436) NEUTROPHILS RELATIVE PERCENT 76 % (BEAKER) (test buxq=320) LYMPHOCYTES RELATIVE PERCENT 10 % (BEAKER) (test sqjl=461) MONOCYTES RELATIVE PERCENT 8 % (BEAKER) (test lpaf=515) EOSINOPHILS RELATIVE PERCENT 5 % (BEAKER) (test sozy=939) BASOPHILS RELATIVE PERCENT 1 % (BEAKER) (test pigs=753) NEUTROPHILS ABSOLUTE COUNT 7.55 K/ L 1.78-5.38 (BEAKER) (test towm=779) LYMPHOCYTES ABSOLUTE COUNT 1.01 K/ L 1.32-3.57 (BEAKER) (test yqpk=143) MONOCYTES ABSOLUTE COUNT 0.78 K/ L 0.30-0.82 (BEAKER) (test foby=482) EOSINOPHILS ABSOLUTE COUNT 0.48 K/ L 0.04-0.54 (BEAKER) (test qeuq=904) BASOPHILS ABSOLUTE COUNT 0.06 K/ L 0.01-0.08 (BEAKER) (test zuhu=320) IMMATURE 1 % 0-1 GRANULOCYTES-RELATIVE PERCENT (BEAKER) (test cqkg=5236) BASIC METABOLIC [id number] 05:42:00 Test Item Value Reference Range Comments SODIUM (BEAKER) (test 132 meq/L 136-145 hugw=275) POTASSIUM (BEAKER) (test 4.5 meq/L 3.5-5.1 zmqt=902) CHLORIDE (BEAKER) (test 104 meq/L 98-107 oizh=855) CO2 (BEAKER) (test 19 meq/L 22-29 zapx=748) BLOOD UREA NITROGEN 30 mg/dL 7-21 (BEAKER) (test pktd=598) CREATININE (BEAKER) (test 1.32 mg/dL 0.57-1.25 eavu=703) GLUCOSE RANDOM (BEAKER) 131 mg/dL 70-105 (test wszs=311) CALCIUM (BEAKER) (test 7.9 mg/dL 8.4-10.2 tnwe=322) EGFR (BEAKER) (test 53 mL/min/1.73 sq m ESTIMATED GFR IS NOT elmy=2311) ACCURATE CREATININE CLEARANCE IN PREDICTING GLOMERULAR FILTRATION RATE. ESTIMATED GFR IS NOT APPLICABLE FOR DIALYSIS PATIENTS. POCT-GLUCOSE [id number] 21:16:00 Test Item Value Reference Range Comments POC-GLUCOSE METER (BEAKER) 230 mg/dL 70-110 TESTED AT [address] (test qtat=0610) [place] [address] POCT-GLUCOSE [id number] 19:38:00 Test Item Value Reference Range Comments POC-GLUCOSE METER (BEAKER) 239 mg/dL 70-110 TESTED AT [address] (test nznl=0812) [place] [address] BLOOD [id number] 18:00:00 Test Item Value Reference Range Comments CULTURE (BEAKER) (test urof=7112) No growth in 5 days BLOOD [id number] 18:00:00 Test Item Value Reference Range Comments CULTURE (BEAKER) (test erco=4922) No growth in 5 days POCT-GLUCOSE [id number] 11:57:00 Test Item Value Reference Range Comments POC-GLUCOSE METER (BEAKER) 203 mg/dL 70-110 TESTED AT [address] (test kvgc=0240) [place] [address] POCT-GLUCOSE [id number] 08:50:00 Test Item Value Reference Range Comments POC-GLUCOSE METER (BEAKER) 140 mg/dL 70-110 TESTED AT [address] (test fqmg=5819) [place] [address] BASIC METABOLIC [id number] 05:31:00 Test Item Value Reference Range Comments SODIUM (BEAKER) (test 134 meq/L 136-145 sqhg=797) POTASSIUM (BEAKER) (test 4.7 meq/L 3.5-5.1 vltq=696) CHLORIDE (BEAKER) (test 104 meq/L 98-107 zbpf=849) CO2 (BEAKER) (test 24 meq/L 22-29 avbv=881) BLOOD UREA NITROGEN 29 mg/dL 7-21 (BEAKER) (test ziuv=279) CREATININE (BEAKER) (test 1.38 mg/dL 0.57-1.25 jsju=126) GLUCOSE RANDOM (BEAKER) 139 mg/dL 70-105 (test vrdz=238) CALCIUM (BEAKER) (test 8.1 mg/dL 8.4-10.2 clmw=835) EGFR (BEAKER) (test 50 mL/min/1.73 sq m ESTIMATED GFR IS NOT vmfw=7874) ACCURATE CREATININE CLEARANCE IN PREDICTING GLOMERULAR FILTRATION RATE. ESTIMATED GFR IS NOT APPLICABLE FOR DIALYSIS PATIENTS. CBC W/PLT COUNT & AUTO [id number] 05:08:00 Test Item Value Reference Range Comments WHITE BLOOD CELL COUNT (BEAKER) (test mrfn=102) 11.7 K/ L 3.5-10.5 RED BLOOD CELL COUNT (BEAKER) (test lxdx=696) 3.06 M/ L 4.63-6.08 HEMOGLOBIN (BEAKER) (test grie=062) 9.8 GM/DL 13.7-17.5 HEMATOCRIT (BEAKER) (test hkni=764) 31.3 % 40.1-51.0 MEAN CORPUSCULAR VOLUME (BEAKER) (test trob=444) 102.3 fL 79.0-92.2 MEAN CORPUSCULAR HEMOGLOBIN (BEAKER) (test 32.0 pg 25.7-32.2 vtia=909) MEAN CORPUSCULAR HEMOGLOBIN CONC (BEAKER) (test 31.3 GM/DL 32.3-36.5 ixqj=247) RED CELL DISTRIBUTION WIDTH (BEAKER) (test 15.5 % 11.6-14.4 phni=802) PLATELET COUNT (BEAKER) (test iklx=052) 576 K/CU MM 150-450 MEAN PLATELET VOLUME (BEAKER) (test gpfy=735) 9.8 fL 9.4-12.4 NUCLEATED RED BLOOD CELLS (BEAKER) (test 0 /100 WBC 0-0 mzcb=158) NEUTROPHILS RELATIVE PERCENT (BEAKER) (test 78 % mivv=694) LYMPHOCYTES RELATIVE PERCENT (BEAKER) (test 8 % dath=626) MONOCYTES RELATIVE PERCENT (BEAKER) (test 6 % hdqt=808) EOSINOPHILS RELATIVE PERCENT (BEAKER) (test 5 % zxwf=089) BASOPHILS RELATIVE PERCENT (BEAKER) (test 1 % uikc=008) NEUTROPHILS ABSOLUTE COUNT (BEAKER) (test 9.20 K/ L 1.78-5.38 vzgh=911) LYMPHOCYTES ABSOLUTE COUNT (BEAKER) (test 0.98 K/ L 1.32-3.57 mgmm=709) MONOCYTES ABSOLUTE COUNT (BEAKER) (test 0.71 K/ L 0.30-0.82 bymd=408) EOSINOPHILS ABSOLUTE COUNT (BEAKER) (test 0.60 K/ L 0.04-0.54 bxtx=317) BASOPHILS ABSOLUTE COUNT (BEAKER) (test 0.06 K/ L 0.01-0.08 mstp=253) IMMATURE GRANULOCYTES-RELATIVE PERCENT (BEAKER) 2 % 0-1 (test qczd=0953) POCT-GLUCOSE [id number] 21:11:00 Test Item Value Reference Range Comments POC-GLUCOSE METER (BEAKER) 195 mg/dL 70-110 TESTED AT [address] (test hgla=7441) [facility] [address] POCT-GLUCOSE [id number] 17:47:00 Test Item Value Reference Range Comments POC-GLUCOSE METER (BEAKER) 175 mg/dL 70-110 TESTED AT [address] (test oscn=0719) [facility] [address] POCT-GLUCOSE [id number] 12:31:00 Test Item Value Reference Range Comments POC-GLUCOSE METER (BEAKER) 219 mg/dL 70-110 TESTED AT [address] (test fnzr=7190) [facility] [address] [id number] 10:59:00 Test Item Value Reference Range Comments MAGNESIUM (BEAKER) (test isra=447) 1.9 mg/dL 1.6-2.6 BASIC METABOLIC [id number] 10:59:00 Test Item Value Reference Range Comments SODIUM (BEAKER) (test 134 meq/L 136-145 bchn=641) POTASSIUM (BEAKER) (test 4.4 meq/L 3.5-5.1 ezdi=592) CHLORIDE (BEAKER) (test 104 meq/L 98-107 pdzz=313) CO2 (BEAKER) (test 23 meq/L 22-29 vlia=397) BLOOD UREA NITROGEN 29 mg/dL 7-21 (BEAKER) (test wxjk=289) CREATININE (BEAKER) (test 1.54 mg/dL 0.57-1.25 tdnz=917) GLUCOSE RANDOM (BEAKER) 156 mg/dL 70-105 (test atou=167) CALCIUM (BEAKER) (test 8.1 mg/dL 8.4-10.2 vctm=299) EGFR (BEAKER) (test 44 mL/min/1.73 sq m ESTIMATED GFR IS NOT mppk=9999) ACCURATE CREATININE CLEARANCE IN PREDICTING GLOMERULAR FILTRATION RATE. ESTIMATED GFR IS NOT APPLICABLE FOR DIALYSIS PATIENTS. POCT-GLUCOSE [id number] 08:13:00 Test Item Value Reference Range Comments POC-GLUCOSE METER (BEAKER) 159 mg/dL 70-[address] [facility] [address] [facility] (test iipl=2521) [facility] [address] CBC W/PLT COUNT & AUTO [id number] 05:28:00 Test Item Value Reference Range Comments WHITE BLOOD CELL COUNT (BEAKER) (test qyuj=879) 13.8 K/ L 3.5-10.5 RED BLOOD CELL COUNT (BEAKER) (test bmgc=273) 2.68 M/ L 4.63-6.08 HEMOGLOBIN (BEAKER) (test wybb=914) 8.3 GM/DL 13.7-17.5 HEMATOCRIT (BEAKER) (test ulwx=942) 27.7 % 40.1-51.0 MEAN CORPUSCULAR VOLUME (BEAKER) (test aikc=142) 103.4 fL 79.0-92.2 MEAN CORPUSCULAR HEMOGLOBIN (BEAKER) (test 31.0 pg 25.7-32.2 doqt=193) MEAN CORPUSCULAR HEMOGLOBIN CONC (BEAKER) (test 30.0 GM/DL 32.3-36.5 zumd=466) RED CELL DISTRIBUTION WIDTH (BEAKER) (test 15.6 % 11.6-14.4 rppd=804) PLATELET COUNT (BEAKER) (test xpnj=199) 541 K/CU MM 150-450 MEAN PLATELET VOLUME (BEAKER) (test cvwc=270) 11.0 fL 9.4-12.4 NUCLEATED RED BLOOD CELLS (BEAKER) (test 0 /100 WBC 0-0 fokb=142) NEUTROPHILS RELATIVE PERCENT (BEAKER) (test 79 % tlmf=235) LYMPHOCYTES RELATIVE PERCENT (BEAKER) (test 8 % gznm=767) MONOCYTES RELATIVE PERCENT (BEAKER) (test 7 % yubc=001) EOSINOPHILS RELATIVE PERCENT (BEAKER) (test 4 % vikz=499) BASOPHILS RELATIVE PERCENT (BEAKER) (test 1 % yqor=095) NEUTROPHILS ABSOLUTE COUNT (BEAKER) (test 10.87 K/ L 1.78-5.38 uktg=773) LYMPHOCYTES ABSOLUTE COUNT (BEAKER) (test 1.05 K/ L 1.32-3.57 qcfw=671) MONOCYTES ABSOLUTE COUNT (BEAKER) (test 0.91 K/ L 0.30-0.82 ydgt=966) EOSINOPHILS ABSOLUTE COUNT (BEAKER) (test 0.61 K/ L 0.04-0.54 tyhn=535) BASOPHILS ABSOLUTE COUNT (BEAKER) (test 0.09 K/ L 0.01-0.08 cczz=154) IMMATURE GRANULOCYTES-RELATIVE PERCENT (BEAKER) 2 % 0-1 (test ucjo=8494) POCT-GLUCOSE [id number] 21:07:00 Test Item Value Reference Range Comments POC-GLUCOSE METER (BEAKER) 201 mg/dL 70-110 TESTED AT [address] (test izfm=9650) [place] [address] POCT-GLUCOSE [id number] 17:02:00 Test Item Value Reference Range Comments POC-GLUCOSE METER (BEAKER) 229 mg/dL 70-110 TESTED AT [address] (test ikil=4114) [place] [id number] POCT-GLUCOSE [id number] 12:10:00 Test Item Value Reference Range Comments POC-GLUCOSE METER (BEAKER) 225 mg/dL 70-110 TESTED AT [address] (test ruvh=5321) [place] [id number] URINE [id number] 08:57:00 Test Item Value Reference Range Comments CULTURE (BEAKER) (test ynjw=5275) No growth GRAM STAIN RESULT (BEAKER) (test No WBCs ftbl=7255) GRAM STAIN RESULT (BEAKER) (test No organisms seen gcye=14386) POCT-GLUCOSE [id number] 07:40:00 Test Item Value Reference Range Comments POC-GLUCOSE METER (BEAKER) 207 mg/dL 70-110 TESTED AT [address] (test ppwj=4368) [place] [address] [id number] 05:58:00 Test Item Value Reference Range Comments MAGNESIUM (BEAKER) (test kujj=105) 1.7 mg/dL 1.6-2.6 BASIC METABOLIC [id number] 05:58:00 Test Item Value Reference Range Comments SODIUM (BEAKER) (test 134 meq/L 136-145 thbi=423) POTASSIUM (BEAKER) (test 4.3 meq/L 3.5-5.1 ixjo=576) CHLORIDE (BEAKER) (test 104 meq/L 98-107 lsjk=584) CO2 (BEAKER) (test 22 meq/L 22-29 besb=857) BLOOD UREA NITROGEN 29 mg/dL 7-21 (BEAKER) (test ulcz=520) CREATININE (BEAKER) (test 1.39 mg/dL 0.57-1.25 qgaw=243) GLUCOSE RANDOM (BEAKER) 135 mg/dL 70-105 (test svnb=481) CALCIUM (BEAKER) (test 8.2 mg/dL 8.4-10.2 bjry=442) EGFR (BEAKER) (test 50 mL/min/1.73 sq m ESTIMATED GFR IS NOT gyqt=7034) ACCURATE CREATININE CLEARANCE IN PREDICTING GLOMERULAR FILTRATION RATE. ESTIMATED GFR IS NOT APPLICABLE FOR DIALYSIS PATIENTS. CBC W/PLT COUNT & AUTO [id number] 05:08:00 Test Item Value Reference Range Comments WHITE BLOOD CELL COUNT (BEAKER) (test hamw=173) 14.8 K/ L 3.5-10.5 RED BLOOD CELL COUNT (BEAKER) (test pson=583) 3.11 M/ L 4.63-6.08 HEMOGLOBIN (BEAKER) (test qpaq=390) 9.9 GM/DL 13.7-17.5 HEMATOCRIT (BEAKER) (test ekcp=420) 32.0 % 40.1-51.0 MEAN CORPUSCULAR VOLUME (BEAKER) (test pfmm=233) 102.9 fL 79.0-92.2 MEAN CORPUSCULAR HEMOGLOBIN (BEAKER) (test 31.8 pg 25.7-32.2 tkis=310) MEAN CORPUSCULAR HEMOGLOBIN CONC (BEAKER) (test 30.9 GM/DL 32.3-36.5 gzll=868) RED CELL DISTRIBUTION WIDTH (BEAKER) (test 15.6 % 11.6-14.4 xhkz=010) PLATELET COUNT (BEAKER) (test tvca=604) 580 K/CU MM 150-450 MEAN PLATELET VOLUME (BEAKER) (test ghda=184) 10.3 fL 9.4-12.4 NUCLEATED RED BLOOD CELLS (BEAKER) (test 0 /100 WBC 0-0 cern=072) NEUTROPHILS RELATIVE PERCENT (BEAKER) (test 79 % yrqi=959) LYMPHOCYTES RELATIVE PERCENT (BEAKER) (test 8 % lnsh=409) MONOCYTES RELATIVE PERCENT (BEAKER) (test 6 % sbem=168) EOSINOPHILS RELATIVE PERCENT (BEAKER) (test 4 % heki=588) BASOPHILS RELATIVE PERCENT (BEAKER) (test 1 % fpdt=033) NEUTROPHILS ABSOLUTE COUNT (BEAKER) (test 11.68 K/ L 1.78-5.38 uqkf=456) LYMPHOCYTES ABSOLUTE COUNT (BEAKER) (test 1.21 K/ L 1.32-3.57 tywj=361) MONOCYTES ABSOLUTE COUNT (BEAKER) (test 0.89 K/ L 0.30-0.82 hdbs=689) EOSINOPHILS ABSOLUTE COUNT (BEAKER) (test 0.61 K/ L 0.04-0.54 clqs=621) BASOPHILS ABSOLUTE COUNT (BEAKER) (test 0.09 K/ L 0.01-0.08 vpxf=327) IMMATURE GRANULOCYTES-RELATIVE PERCENT (BEAKER) 2 % 0-1 (test hkgi=0891) POCT-GLUCOSE [id number] 21:17:00 Test Item Value Reference Range Comments POC-GLUCOSE METER (BEAKER) 260 mg/dL 70-110 TESTED AT [address] (test shie=8835) [place] [address] POCT-GLUCOSE [id number] 17:10:00 Test Item Value Reference Range Comments POC-GLUCOSE METER (BEAKER) 190 mg/dL 70-110 TESTED AT [address] (test dbow=0748) [place] [address] POCT-GLUCOSE [id number] 12:17:00 Test Item Value Reference Range Comments POC-GLUCOSE METER (BEAKER) 241 mg/dL 70-110 TESTED AT [address] (test vdzi=4202) [place] [address] CBC W/PLT COUNT & AUTO [id number] 08:29:00 Test Item Value Reference Range Comments WHITE BLOOD CELL COUNT (BEAKER) (test kyeb=317) 16.5 K/ L 3.5-10.5 RED BLOOD CELL COUNT (BEAKER) (test ztnm=370) 2.83 M/ L 4.63-6.08 HEMOGLOBIN (BEAKER) (test qnsr=393) 8.8 GM/DL 13.7-17.5 HEMATOCRIT (BEAKER) (test mijs=931) 28.8 % 40.1-51.0 MEAN CORPUSCULAR VOLUME (BEAKER) (test tlzk=663) 101.8 fL 79.0-92.2 MEAN CORPUSCULAR HEMOGLOBIN (BEAKER) (test 31.1 pg 25.7-32.2 uhqd=547) MEAN CORPUSCULAR HEMOGLOBIN CONC (BEAKER) (test 30.6 GM/DL 32.3-36.5 zfxy=149) RED CELL DISTRIBUTION WIDTH (BEAKER) (test 15.4 % 11.6-14.4 egzd=616) PLATELET COUNT (BEAKER) (test rtgl=949) 535 K/CU MM 150-450 MEAN PLATELET VOLUME (BEAKER) (test wcyo=537) 10.7 fL 9.4-12.4 NUCLEATED RED BLOOD CELLS (BEAKER) (test 1 /100 WBC 0-0 qlzp=016) NEUTROPHILS RELATIVE PERCENT (BEAKER) (test 78 % zwlt=473) LYMPHOCYTES RELATIVE PERCENT (BEAKER) (test 9 % sdkj=307) MONOCYTES RELATIVE PERCENT (BEAKER) (test 7 % pdtv=801) EOSINOPHILS RELATIVE PERCENT (BEAKER) (test 3 % zivb=394) BASOPHILS RELATIVE PERCENT (BEAKER) (test 0 % ixkd=381) NEUTROPHILS ABSOLUTE COUNT (BEAKER) (test 12.77 K/ L 1.78-5.38 znij=192) LYMPHOCYTES ABSOLUTE COUNT (BEAKER) (test 1.45 K/ L 1.32-3.57 adfl=879) MONOCYTES ABSOLUTE COUNT (BEAKER) (test 1.12 K/ L 0.30-0.82 ifcb=515) EOSINOPHILS ABSOLUTE COUNT (BEAKER) (test 0.55 K/ L 0.04-0.54 lcay=137) BASOPHILS ABSOLUTE COUNT (BEAKER) (test 0.07 K/ L 0.01-0.08 qjxe=361) IMMATURE GRANULOCYTES-RELATIVE PERCENT (BEAKER) 3 % 0-1 (test bggh=6765) (MANUAL DIFFERENTIAL)2017-08-06 08:29:00 Test Item Value Reference Range Comments TOTAL COUNTED (BEAKER) (test ljmz=8898) POCT-GLUCOSE [id number] 07:22:00 Test Item Value Reference Range Comments POC-GLUCOSE METER (BEAKER) 183 mg/dL 70-110 TESTED AT [address] (test khds=9601) [facility] [address] [id number] 06:21:00 Test Item Value Reference Range Comments MAGNESIUM (BEAKER) (test yihy=111) 1.9 mg/dL 1.6-2.6 BASIC METABOLIC [id number] 06:21:00 Test Item Value Reference Range Comments SODIUM (BEAKER) (test 134 meq/L 136-145 qabf=036) POTASSIUM (BEAKER) (test 3.8 meq/L 3.5-5.1 awdd=143) CHLORIDE (BEAKER) (test 101 meq/L 98-107 qrqz=242) CO2 (BEAKER) (test 23 meq/L 22-29 lxzm=219) BLOOD UREA NITROGEN 36 mg/dL 7-21 (BEAKER) (test askn=358) CREATININE (BEAKER) (test 1.49 mg/dL 0.57-1.25 izlr=094) GLUCOSE RANDOM (BEAKER) 139 mg/dL 70-105 (test urpx=628) CALCIUM (BEAKER) (test 8.0 mg/dL 8.4-10.2 phim=770) EGFR (BEAKER) (test 46 mL/min/1.73 sq m ESTIMATED GFR IS NOT lslf=0071) ACCURATE CREATININE CLEARANCE IN PREDICTING GLOMERULAR FILTRATION RATE. ESTIMATED GFR IS NOT APPLICABLE FOR DIALYSIS PATIENTS. BLOOD [id number] 02:41:00 Test Item Value Reference Range Comments CULTURE (BEAKER) From Aerobic Bottle Only (test xgyo=6519) Same organism has been isolated from cultures(s) of the same body site and collection date. Repeat identification and susceptibility testing performed only after consultation with the clinical microbiology laboratory.Refer to previous culture ofEnterobacter cloacae GRAM STAIN RESULT From aerobic bottle (BEAKER) (test only: gram negative itpj=1300) rods ANAEROBIC [id number] 23:46:00 Test Item Value Reference Range Comments CULTURE (BEAKER) (test fuzz=8491) No anaerobes isolated POCT-GLUCOSE [id number] 20:54:00 Test Item Value Reference Range Comments POC-GLUCOSE METER (BEAKER) 241 mg/dL 70-110 [place] [address] [facility] (test mrtz=7966) [facility] [address] RAD, CHEST, 1 VIEW, NON [id number] 19:11:00Reason for exam:-> leukocytosisShould this be performed at the bedside?->YesFINAL REPORT RAD, CHEST, 1 VIEW, NON DEPT INDICATION: leukocytosis COMPARISON: The 2017 FINDINGS: Portable frontal view of the chest. IMPRESSION: Support Lines: None Lungs and pleura: Tracking bilateral effusions increased in volume since the prior examination. Associated relaxation atelectasis. No pneumothorax.Heart and mediastinum: Stable contours. Stable surgical changes.Additional findings: None. Signed: JR Spencer Robert MDReport Verified Date/Time: 08/05/2017 19:11:15 Reading Location: [address] Reading Room POCT-GLUCOSE [id number] 18:02:00 Test Item Value Reference Range Comments POC-GLUCOSE METER (BEAKER) 169 mg/dL 70-110 TESTED AT [address] (test txtv=1267) [facility] [address] CT, BRAIN, WITHOUT [id number] 17:19:00Reason for exam:->evaluate for bleedingWhat is the patient's sedation requirement?->No SedationFINAL REPORT CT head without contrast 08/05/2017 5:15 PM CLINICAL HISTORY: bleeding TECHNIQUE: Axial noncontrast CT images through the head were obtained. This examination was performed according to our departmental dose optimization program, which includes automated exposure control, adjustment of the mA and/or kV according to patient size, and/or use of iterated reconstructiontechnique. COMPARISON: 07/28/2017 FINDINGS: There is no hemorrhage, [...] persists, further evaluation with MRI is recommended. Signed : Miguel Gallardo MDReport Verified Date/Time: 08/05/2017 17:19:56 [facility] POCT-GLUCOSE [id number] 11:59: 00 Test Item Value Reference Range Comments POC-GLUCOSE METER (BEAKER) 220 mg/dL 70-110 TESTED AT [address] (test nccb=6298) [place] [address] URINALYSIS W/ [id number] 10:10:00 Test Item Value Reference Range Comments COLOR (BEAKER) (test koig=368) Yellow CLARITY (BEAKER) (test viyf=345) Clear SPECIFIC GRAVITY UA (BEAKER) (test iozl=732) 1.015 1.001-1.035 PH UA (BEAKER) (test rcbh=811) 5.5 5.0-8.0 PROTEIN UA (BEAKER) (test ahza=741) 10 mg/dL Negative GLUCOSE UA (BEAKER) (test iggg=017) Negative Negative KETONES UA (BEAKER) (test kgha=003) Negative Negative BILIRUBIN UA (BEAKER) (test ykrs=858) Negative Negative BLOOD UA (BEAKER) (test eabg=048) Trace Negative NITRITE UA (BEAKER) (test xfkz=066) Negative Negative LEUKOCYTE ESTERASE UA (BEAKER) (test mcie=285) Large Negative UROBILINOGEN UA (BEAKER) (test vkof=740) 3.0 mg/dL 0.2-1.0 RBC UA (BEAKER) (test vtcl=216) 1 /HPF WBC UA (BEAKER) (test mvwi=160) 29 /HPF BACTERIA (BEAKER) (test noru=824) Rare MUCUS (BEAKER) (test ydwk=9482) Rare SQUAMOUS EPITHELIAL (BEAKER) (test ddmg=665) < /HPF SOURCE(BEAKER) (test momp=3045) Urine, Frances POCT-GLUCOSE [id number] 08:49:00 Test Item Value Reference Range Comments POC-GLUCOSE METER (BEAKER) 203 mg/dL 70-110 TESTED AT [address] (test azna=5019) [place] [address] CBC W/PLT COUNT & AUTO [id number] 08:10:00 Test Item Value Reference Range Comments WHITE BLOOD CELL COUNT (BEAKER) (test saau=542) 17.3 K/ L 3.5-10.5 RED BLOOD CELL COUNT (BEAKER) (test ixfq=501) 2.80 M/ L 4.63-6.08 HEMOGLOBIN (BEAKER) (test fcpp=676) 9.0 GM/DL 13.7-17.5 HEMATOCRIT (BEAKER) (test grom=390) 28.9 % 40.1-51.0 MEAN CORPUSCULAR VOLUME (BEAKER) (test bnyn=115) 103.2 fL 79.0-92.2 MEAN CORPUSCULAR HEMOGLOBIN (BEAKER) (test 32.1 pg 25.7-32.2 amlh=208) MEAN CORPUSCULAR HEMOGLOBIN CONC (BEAKER) (test 31.1 GM/DL 32.3-36.5 gbdz=522) RED CELL DISTRIBUTION WIDTH (BEAKER) (test 15.8 % 11.6-14.4 jida=810) PLATELET COUNT (BEAKER) (test syox=049) 500 K/CU MM 150-450 MEAN PLATELET VOLUME (BEAKER) (test zorc=607) 10.7 fL 9.4-12.4 NUCLEATED RED BLOOD CELLS (BEAKER) (test 1 /100 WBC 0-0 eoip=390) NEUTROPHILS RELATIVE PERCENT (BEAKER) (test 80 % fhxc=696) LYMPHOCYTES RELATIVE PERCENT (BEAKER) (test 8 % rfea=363) MONOCYTES RELATIVE PERCENT (BEAKER) (test 7 % spml=871) EOSINOPHILS RELATIVE PERCENT (BEAKER) (test 3 % rjub=825) BASOPHILS RELATIVE PERCENT (BEAKER) (test 1 % dmbx=867) NEUTROPHILS ABSOLUTE COUNT (BEAKER) (test 13.74 K/ L 1.78-5.38 kggm=117) LYMPHOCYTES ABSOLUTE COUNT (BEAKER) (test 1.43 K/ L 1.32-3.57 lyjl=066) MONOCYTES ABSOLUTE COUNT (BEAKER) (test 1.14 K/ L 0.30-0.82 kbqj=145) EOSINOPHILS ABSOLUTE COUNT (BEAKER) (test 0.47 K/ L 0.04-0.54 zrle=223) BASOPHILS ABSOLUTE COUNT (BEAKER) (test 0.09 K/ L 0.01-0.08 oizp=719) IMMATURE GRANULOCYTES-RELATIVE PERCENT (BEAKER) 2 % 0-1 (test ixsn=3601) BASIC METABOLIC [id number] 05:29:00 Test Item Value Reference Range Comments SODIUM (BEAKER) (test 138 meq/L 136-145 onez=179) POTASSIUM (BEAKER) (test 4.0 meq/L 3.5-5.1 bhdl=816) CHLORIDE (BEAKER) (test 106 meq/L 98-107 bior=696) CO2 (BEAKER) (test 22 meq/L 22-29 sift=414) BLOOD UREA NITROGEN 46 mg/dL 7-21 (BEAKER) (test kgic=351) CREATININE (BEAKER) (test 1.77 mg/dL 0.57-1.25 qpbu=191) GLUCOSE RANDOM (BEAKER) 162 mg/dL 70-105 (test sikz=132) CALCIUM (BEAKER) (test 7.9 mg/dL 8.4-10.2 ydan=081) EGFR (BEAKER) (test 38 mL/min/1.73 sq m ESTIMATED GFR IS NOT ycwt=7498) ACCURATE CREATININE CLEARANCE IN PREDICTING GLOMERULAR FILTRATION RATE. ESTIMATED GFR IS NOT APPLICABLE FOR DIALYSIS PATIENTS. [id number] 05:28:00 Test Item Value Reference Range Comments MAGNESIUM (BEAKER) (test muzc=555) 2.1 mg/dL 1.6-2.6 POCT-GLUCOSE [id number] 21:28:00 Test Item Value Reference Range Comments POC-GLUCOSE METER (BEAKER) 240 mg/dL 70-110 TESTED AT [address] (test rals=2392) [facility] [address] POCT-GLUCOSE [id number] 18:29:00 Test Item Value Reference Range Comments POC-GLUCOSE METER (BEAKER) 255 mg/dL 70-110 TESTED AT [address] (test tdjq=2723) [facility] [address] POCT-GLUCOSE [id number] 16:59:00 Test Item Value Reference Range Comments POC-GLUCOSE METER (BEAKER) 207 mg/dL 70-110 TESTED AT [address] (test kirj=2553) [place] [id number] SURGICALLY OBTAINED CULTURE + GRAM [id number] 16:19:00 Test Item Value Reference Range Comments CULTURE (BEAKER) (test thtw=2939) Amikacin (test code=1) Aztreonam (test code=32) Cefepime (test code=51) Cefoxitin (test code=68) Ceftazidime (test code=27) Ceftriaxone (test code=52) Gentamicin (test code=18) Levofloxacin (test code=22) Meropenem (test code=34) Nitrofurantoin (test code=23) Piperacillin + Tazobactam (test code=29) Tetracycline (test code=2) Tobramycin (test code=25) Trimethoprim + Sulfamethoxazole (test code=47) CULTURE (BEAKER) (test 1+ Enterobacter cloacae lbch=3751) complexAmpC Positive GRAM STAIN RESULT (BEAKER) 1+ WBCs (test ekdy=7655) GRAM STAIN RESULT (BEAKER) No organisms seen (test aibm=015392) POCT-GLUCOSE [id number] 08:47:00 Test Item Value Reference Range Comments POC-GLUCOSE METER (BEAKER) 167 mg/dL 70-110 TESTED AT [address] (test iwgi=5218) [facility] [address] BASIC METABOLIC [id number] 08:10:00 Test Item Value Reference Range Comments SODIUM (BEAKER) (test 137 meq/L 136-145 hjhm=875) POTASSIUM (BEAKER) (test 3.7 meq/L 3.5-5.1 ffyq=928) CHLORIDE (BEAKER) (test 106 meq/L 98-107 pryu=511) CO2 (BEAKER) (test 21 meq/L 22-29 vuas=294) BLOOD UREA NITROGEN 55 mg/dL 7-21 (BEAKER) (test fara=942) CREATININE (BEAKER) (test 2.06 mg/dL 0.57-1.25 gpth=627) GLUCOSE RANDOM (BEAKER) 168 mg/dL 70-105 (test lvro=030) CALCIUM (BEAKER) (test 7.5 mg/dL 8.4-10.2 qbxt=938) EGFR (BEAKER) (test 32 mL/min/1.73 sq m ESTIMATED GFR IS NOT qjrd=3972) ACCURATE CREATININE CLEARANCE IN PREDICTING GLOMERULAR FILTRATION RATE. ESTIMATED GFR IS NOT APPLICABLE FOR DIALYSIS PATIENTS. POCT-GLUCOSE [id number] 20:37:00 Test Item Value Reference Range Comments POC-GLUCOSE METER (BEAKER) 232 mg/dL 70-110 TESTED AT [address] (test mzxf=1277) [place] [address] POCT-GLUCOSE [id number] 17:10:00 Test Item Value Reference Range Comments POC-GLUCOSE METER (BEAKER) 256 mg/dL 70-110 TESTED AT [address] (test ryna=8770) [place] [address] RAD, ABDOMEN/KUB, 1 VIEW [id number] 13:37:00Reason for exam:->abdominal pain,FINAL REPORT Comparison: None Discussion: Abdomen: Bowel gas pattern is nonobstructed. Evaluation for free intraperitoneal air is limited due to technique and positioning. Stentprojects over the lower abdomen and pelvis. No acute skeletal abnormality. Impression: 1. Nonspecific bowel gas pattern. Signed: Emerson Palaciosort Verified Date/Time: 08/03/2017 13:37:00 Reading Location: [facility] C0T Transitional Reading Room POCT-GLUCOSE [id number] 12:03:00 Test Item Value Reference Range Comments POC-GLUCOSE METER (BEAKER) 233 mg/dL 70-110 TESTED AT [address] (test lexw=1676) [place] [address] RAD, CHEST, 1 VIEW, NON [id number] 08:43:00Reason for exam:->chest tubeShould this be performed at the bedside?->YesFINAL REPORT CLINICAL HISTORY: chest tube TECHNIQUE: 1 view of the chest. COMPARISON : 08/02/2017 IMPRESSION: A midline chest drain and tube are again seen. There is no pneumothorax. Mild bilateral airspace opacities and trace pleural effusions are again seen. The cardiomediastinal silhouette is magnified by technique with sternotomy wires. Signed: Audrey Pyle MDRjenniferort Verified Date/Time: 2017 08:43:25 Reading Location: [facility] C013V Neuro Reading Room POCT- GLUCOSE [id number] 07:32:00 Test Item Value Reference Range Comments POC-GLUCOSE METER (BEAKER) 182 mg/dL 70-[address] [facility] [address] (test qwku=2460) [facility] [address] BASIC METABOLIC [id number] 06:44:00 Test Item Value Reference Range Comments SODIUM (BEAKER) (test 135 meq/L 136-145 vjmq=193) POTASSIUM (BEAKER) (test 3.5 meq/L 3.5-5.1 spre=088) CHLORIDE (BEAKER) (test 100 meq/L 98-107 mgbu=936) CO2 (BEAKER) (test 23 meq/L 22-29 ueox=994) BLOOD UREA NITROGEN 56 mg/dL 7-21 (BEAKER) (test skfa=897) CREATININE (BEAKER) (test 2.47 mg/dL 0.57-1.25 xzon=217) GLUCOSE RANDOM (BEAKER) 160 mg/dL 70-105 (test dhpf=864) CALCIUM (BEAKER) (test 7.6 mg/dL 8.4-10.2 mgam=468) EGFR (BEAKER) (test 26 mL/min/1.73 sq m ESTIMATED GFR IS NOT xqog=4292) ACCURATE CREATININE CLEARANCE IN PREDICTING GLOMERULAR FILTRATION RATE. ESTIMATED GFR IS NOT APPLICABLE FOR DIALYSIS PATIENTS. BLOOD [id number] 06:14:00 Test Item Value Reference Range Comments CULTURE (BEAKER) (test xcpv=5713) Amikacin (test code=1) Aztreonam (test code=32) Cefepime (test code=51) Cefoxitin (test code=68) Ceftazidime (test code=27) Ceftriaxone (test code=52) Ertapenem (test code=38) Gentamicin (test code=18) Levofloxacin (test code=22) Meropenem (test code=34) Nitrofurantoin (test code=23) Piperacillin + Tazobactam (test code=29) Tetracycline (test code=2) Tobramycin (test code=25) Trimethoprim + Sulfamethoxazole (test code=47) CULTURE (BEAKER) (test From Aerobic And xcto=0216) Anaerobic Bottles Enterobacter cloacae GRAM STAIN RESULT (BEAKER) From aerobic and (test sdry=4011) anaerobic bottles: gram negative rods ENTEROBACTER CLOACAE COMPLEX DETECTEDKPC (a carbapenamase gene) not detectedFirst line therapy: cefepime or meropenemOther organisms and resistance markers not contained in this PCR panel cannot be excluded and follow-up of traditional culture results is required. This sample was tested at the [facility] Clinical Microbiology Laboratory using the [employer] Blood Culture ID Panel. This test is FDAcleared for in vitro diagnostic use and has been verified and approved by the [facility] Clinical Microbiology laboratory for clinical use. Reference Range: Not DetectedSPIN/CONCENTRATION [id number] 05:57:00 Test Item Value Reference Range Comments CONCENTRATION CHARGED (BEAKER) (test rjuk=2688) Done CBC W/PLT COUNT & AUTO [id number] 05:37:00 Test Item Value Reference Range Comments WHITE BLOOD CELL COUNT (BEAKER) (test unfj=159) 17.8 K/ L 3.5-10.5 RED BLOOD CELL COUNT (BEAKER) (test qhau=565) 2.71 M/ L 4.63-6.08 HEMOGLOBIN (BEAKER) (test wcvu=820) 8.8 GM/DL 13.7-17.5 HEMATOCRIT (BEAKER) (test tzxl=782) 27.5 % 40.1-51.0 MEAN CORPUSCULAR VOLUME (BEAKER) (test nsac=283) 101.5 fL 79.0-92.2 MEAN CORPUSCULAR HEMOGLOBIN (BEAKER) (test 32.5 pg 25.7-32.2 zqtm=149) MEAN CORPUSCULAR HEMOGLOBIN CONC (BEAKER) (test 32.0 GM/DL 32.3-36.5 wnvo=572) RED CELL DISTRIBUTION WIDTH (BEAKER) (test 15.5 % 11.6-14.4 lmmn=241) PLATELET COUNT (BEAKER) (test sejc=792) 370 K/CU MM 150-450 MEAN PLATELET VOLUME (BEAKER) (test pjgk=726) 10.8 fL 9.4-12.4 NUCLEATED RED BLOOD CELLS (BEAKER) (test 0 /100 WBC 0-0 vdbu=435) NEUTROPHILS RELATIVE PERCENT (BEAKER) (test 84 % kjlw=591) LYMPHOCYTES RELATIVE PERCENT (BEAKER) (test 7 % mxid=735) MONOCYTES RELATIVE PERCENT (BEAKER) (test 6 % osvo=201) EOSINOPHILS RELATIVE PERCENT (BEAKER) (test 1 % vpse=640) BASOPHILS RELATIVE PERCENT (BEAKER) (test 0 % gojd=565) NEUTROPHILS ABSOLUTE COUNT (BEAKER) (test 14.95 K/ L 1.78-5.38 lnfh=572) LYMPHOCYTES ABSOLUTE COUNT (BEAKER) (test 1.17 K/ L 1.32-3.57 kdcv=175) MONOCYTES ABSOLUTE COUNT (BEAKER) (test 1.12 K/ L 0.30-0.82 zjwq=858) EOSINOPHILS ABSOLUTE COUNT (BEAKER) (test 0.22 K/ L 0.04-0.54 qopl=101) BASOPHILS ABSOLUTE COUNT (BEAKER) (test 0.04 K/ L 0.01-0.08 qbzf=187) IMMATURE GRANULOCYTES-RELATIVE PERCENT (BEAKER) 1 % 0-1 (test phfp=4475) POCT-GLUCOSE [id number] 20:08:00 Test Item Value Reference Range Comments POC-GLUCOSE METER (BEAKER) 188 mg/dL 70-110 TESTED AT [address] (test ionc=6718) [place] [address] RAD, CHEST, 1 VIEW, NON [id number] 18:24:00Reason for exam:->chest tubeShould this be performed at the bedside?->YesFINAL REPORT RAD, CHEST, 1 VIEW, NON DEPT INDICATION: chest tube COMPARISON: Prior day's exam FINDINGS: Portable frontal view of the chest. IMPRESSION: Support Lines: Surgicaldrains remain in place. Lungs and pleura: Increased subsegmental atelectasis and suspected developing edema bilaterally. Small right effusion. Trace left pneumothorax.Heart and mediastinum: Stable contours. Stable surgical changes.Additional findings: None. Signed: JR Spencer Robert MDReport Verified Date/Time: 08/02/2017 18:24:48 Reading Location: [address] Reading Room Electronically signed by: CJ SPENCER on 06:24 PMPOCT-GLUCOSE [id number] 17:07:00 Test Item Value Reference Range Comments POC-GLUCOSE METER (BEAKER) 183 mg/dL 70-110 TESTED AT [address] (test avff=2720) [place] [address] MISCELLANEOUS LAB [id number] 16:20:00 Test Item Value Reference Range Comments SCAN RESULT (test itrx=[id number]) Result comments: ENTEROBACTER CLOACAE COMPLEX DETECTED KPC (a carbapenamase gene ) not detected Firstline therapy: cefepime or meropenem Other organisms and resistance markers not contained in this PCRpanel cannot be excluded and follow- up of traditional culture results is required. This sample wastested at the [facility] Clinical Microbiology Laboratory using the [employer] Blood Culture ID Panel. This test is FDA cleared for in vitro diagnostic use and has been verified and approved by the [facility] Clinical Microbiology laboratory for clinical use. Reference Range: Not DetectedPOCT-GLUCOSE [id number] 12:45:00 Test Item Value Reference Range Comments POC-GLUCOSE METER (BEAKER) 262 mg/dL 70-[address] [facility] [address] (test dauk=5406) [place] [id number] CBC W/PLT COUNT & AUTO [id number] 11:23:00 Test Item Value Reference Range Comments WHITE BLOOD CELL COUNT (BEAKER) (test vrts=783) 11.9 K/ L 3.5-10.5 RED BLOOD CELL COUNT (BEAKER) (test afgp=888) 2.77 M/ L 4.63-6.08 HEMOGLOBIN (BEAKER) (test maqg=668) 8.9 GM/DL 13.7-17.5 HEMATOCRIT (BEAKER) (test dfvr=603) 28.1 % 40.1-51.0 MEAN CORPUSCULAR VOLUME (BEAKER) (test kodh=776) 101.4 fL 79.0-92.2 MEAN CORPUSCULAR HEMOGLOBIN (BEAKER) (test 32.1 pg 25.7-32.2 hbvw=062) MEAN CORPUSCULAR HEMOGLOBIN CONC (BEAKER) (test 31.7 GM/DL 32.3-36.5 irdb=468) RED CELL DISTRIBUTION WIDTH (BEAKER) (test 15.4 % 11.6-14.4 dven=719) PLATELET COUNT (BEAKER) (test viza=932) 343 K/CU MM 150-450 MEAN PLATELET VOLUME (BEAKER) (test tdtx=114) 11.3 fL 9.4-12.4 NUCLEATED RED BLOOD CELLS (BEAKER) (test 1 /100 WBC 0-0 pogp=776) NEUTROPHILS RELATIVE PERCENT (BEAKER) (test 83 % yxnw=371) LYMPHOCYTES RELATIVE PERCENT (BEAKER) (test 6 % vsxd=599) MONOCYTES RELATIVE PERCENT (BEAKER) (test 8 % uimv=991) EOSINOPHILS RELATIVE PERCENT (BEAKER) (test 1 % mrmu=265) BASOPHILS RELATIVE PERCENT (BEAKER) (test 0 % dpra=906) NEUTROPHILS ABSOLUTE COUNT (BEAKER) (test 9.84 K/ L 1.78-5.38 etjj=864) LYMPHOCYTES ABSOLUTE COUNT (BEAKER) (test 0.73 K/ L 1.32-3.57 puym=149) MONOCYTES ABSOLUTE COUNT (BEAKER) (test 0.93 K/ L 0.30-0.82 qowj=122) EOSINOPHILS ABSOLUTE COUNT (BEAKER) (test 0.13 K/ L 0.04-0.54 qykc=965) BASOPHILS ABSOLUTE COUNT (BEAKER) (test 0.04 K/ L 0.01-0.08 jzwg=247) IMMATURE GRANULOCYTES-RELATIVE PERCENT (BEAKER) 2 % 0-1 (test jine=2171) (MANUAL DIFFERENTIAL)2017-08-02 11:23:00 Test Item Value Reference Range Comments TOTAL COUNTED (BEAKER) (test khak=3828) WBC MORPHOLOGY (BEAKER) (test erlf=078) Normal LARGE PLT(BEAKER) (test fixa=3792) Present ACANTHOCYTES (BEAKER) (test ysdq=632) 1+ few ANISOCYTOSIS (BEAKER) (test mzos=051) 1+ few HYPOCHROMIA (BEAKER) (test huri=739) 1+ few MACROCYTES (BEAKER) (test ostk=315) 1+ few POIKILOCYTES (BEAKER) (test oolw=594) 1+ few POLYCHROMATOPHILLIC RBCS(BEAKER) (test dhjl=495) 2+ moderate POCT-GLUCOSE [id number] 07:15:00 Test Item Value Reference Range Comments POC-GLUCOSE METER (BEAKER) 218 mg/dL 70-[address] [facility] [address] [facility] (test pjnm=9484) [facility] [address] BASIC METABOLIC [id number] 06:37:00 Test Item Value Reference Range Comments SODIUM (BEAKER) (test 137 meq/L 136-145 xhfp=462) POTASSIUM (BEAKER) (test 3.6 meq/L 3.5-5.1 musr=074) CHLORIDE (BEAKER) (test 104 meq/L 98-107 svtb=101) CO2 (BEAKER) (test 23 meq/L 22-29 nsbr=936) BLOOD UREA NITROGEN 51 mg/dL 7-21 (BEAKER) (test laja=121) CREATININE (BEAKER) (test 2.37 mg/dL 0.57-1.25 kflp=323) GLUCOSE RANDOM (BEAKER) 242 mg/dL 70-105 (test qine=070) CALCIUM (BEAKER) (test 7.4 mg/dL 8.4-10.2 wyba=754) EGFR (BEAKER) (test 27 mL/min/1.73 sq m ESTIMATED GFR IS NOT oojs=3881) ACCURATE CREATININE CLEARANCE IN PREDICTING GLOMERULAR FILTRATION RATE. ESTIMATED GFR IS NOT APPLICABLE FOR DIALYSIS PATIENTS. POCT-GLUCOSE [id number] 21:51:00 Test Item Value Reference Range Comments POC-GLUCOSE METER (BEAKER) 237 mg/dL 70-110 TESTED AT [address] (test jptx=7477) [place] [id number] POCT-GLUCOSE [id number] 17:18:00 Test Item Value Reference Range Comments POC-GLUCOSE METER (BEAKER) 175 mg/dL 70-110 TESTED AT [address] (test zhjv=6350) [place] [id number] POCT-GLUCOSE [id number] 16:29:00 Test Item Value Reference Range Comments POC-GLUCOSE METER (BEAKER) 182 mg/dL 70-110 TESTED AT [address] (test veff=9061) [place] [address] RAD, CHEST, 1 VIEW, NON [id number] 16:22:00Reason for exam:->Post opShould this be performed at the bedside?->YesFINAL REPORT CLINICAL HISTORY: Post op TECHNIQUE: 1 view of the chest. COMPARISON: 07/30/2017 IMPRESSION: There are two new mediastinal surgical drains and a chest tube. Pulmonaryvascular congestion and bilateral airspace opacities are grossly unchanged. Small bilateral pleural effusions are suspected. The cardiomediastinal silhouette is magnified by technique with sternotomy wires. Signed: Audrey Pyle MDReport Verified Date/Time: 08/01/2017 16:22:20 Reading Location: [facility] C013W Consult Reading Room CB W/PLT COUNT & AUTO [id number] 09:03:00 Test Item Value Reference Range Comments WHITE BLOOD CELL COUNT (BEAKER) (test uugh=161) 12.3 K/ L 3.5-10.5 RED BLOOD CELL COUNT (BEAKER) (test fpxc=000) 3.13 M/ L 4.63-6.08 HEMOGLOBIN (BEAKER) (test myul=048) 9.9 GM/DL 13.7-17.5 HEMATOCRIT (BEAKER) (test iqrk=594) 31.9 % 40.1-51.0 MEAN CORPUSCULAR VOLUME (BEAKER) (test mykp=337) 101.9 fL 79.0-92.2 MEAN CORPUSCULAR HEMOGLOBIN (BEAKER) (test 31.6 pg 25.7-32.2 xwdn=733) MEAN CORPUSCULAR HEMOGLOBIN CONC (BEAKER) (test 31.0 GM/DL 32.3-36.5 mlmu=961) RED CELL DISTRIBUTION WIDTH (BEAKER) (test 15.2 % 11.6-14.4 vsha=563) PLATELET COUNT (BEAKER) (test vbjm=897) 317 K/CU MM 150-450 MEAN PLATELET VOLUME (BEAKER) (test zpsj=373) 10.8 fL 9.4-12.4 NUCLEATED RED BLOOD CELLS (BEAKER) (test 1 /100 WBC 0-0 pgbu=836) NEUTROPHILS RELATIVE PERCENT (BEAKER) (test 81 % mnfx=921) LYMPHOCYTES RELATIVE PERCENT (BEAKER) (test 8 % kfml=357) MONOCYTES RELATIVE PERCENT (BEAKER) (test 7 % dxwo=466) EOSINOPHILS RELATIVE PERCENT (BEAKER) (test 1 % mrbq=715) BASOPHILS RELATIVE PERCENT (BEAKER) (test 0 % paih=788) NEUTROPHILS ABSOLUTE COUNT (BEAKER) (test 9.99 K/ L 1.78-5.38 sloz=909) LYMPHOCYTES ABSOLUTE COUNT (BEAKER) (test 0.94 K/ L 1.32-3.57 pquz=754) MONOCYTES ABSOLUTE COUNT (BEAKER) (test 0.88 K/ L 0.30-0.82 hewk=804) EOSINOPHILS ABSOLUTE COUNT (BEAKER) (test 0.17 K/ L 0.04-0.54 iclj=735) BASOPHILS ABSOLUTE COUNT (BEAKER) (test 0.05 K/ L 0.01-0.08 lqcc=550) IMMATURE GRANULOCYTES-RELATIVE PERCENT (BEAKER) 2 % 0-1 (test lddv=7778) (MANUAL DIFFERENTIAL)2017-08-01 09:03:00 Test Item Value Reference Range Comments TOTAL COUNTED (BEAKER) (test tcwc=8121) POCT-GLUCOSE [id number] 07:50:00 Test Item Value Reference Range Comments POC-GLUCOSE METER (BEAKER) 181 mg/dL 70-[address] [facility] [address] [facility] (test ghbs=4813) [facility] [address] CALCIUM, [id number] 06:10:00 Test Item Value Reference Range Comments CALCIUM IONIZED (BEAKER) (test tenf=108) 0.96 mmol/L 1.12-1.27 PH, BLOOD (BEAKER) (test nwcf=8975) 7.38 BASIC METABOLIC [id number] 04:43:00 Test Item Value Reference Range Comments SODIUM (BEAKER) (test 140 meq/L 136-145 kwrf=869) POTASSIUM (BEAKER) (test 3.6 meq/L 3.5-5.1 etaf=318) CHLORIDE (BEAKER) (test 104 meq/L 98-107 nbwq=873) CO2 (BEAKER) (test 26 meq/L 22-29 jvcj=461) BLOOD UREA NITROGEN 42 mg/dL 7-21 (BEAKER) (test xphq=714) CREATININE (BEAKER) (test 1.91 mg/dL 0.57-1.25 pnqr=236) GLUCOSE RANDOM (BEAKER) 172 mg/dL 70-105 (test eqdt=513) CALCIUM (BEAKER) (test 8.0 mg/dL 8.4-10.2 cdkw=978) EGFR (BEAKER) (test 35 mL/min/1.73 sq m ESTIMATED GFR IS NOT fcox=8681) ACCURATE CREATININE CLEARANCE IN PREDICTING GLOMERULAR FILTRATION RATE. ESTIMATED GFR IS NOT APPLICABLE FOR DIALYSIS PATIENTS. POCT-GLUCOSE [id number] 21:15:00 Test Item Value Reference Range Comments POC-GLUCOSE METER (BEAKER) 233 mg/dL 70-[address] [facility] [address] [facility] (test mjhx=1439) [facility] [address] POCT-GLUCOSE [id number] 17:44:00 Test Item Value Reference Range Comments POC-GLUCOSE METER (BEAKER) 161 mg/dL 70-[address] [facility] [address] [facility] (test yuky=3816) [place] [id number] WOUND CULTURE + GRAM [id number] 13:50:00 Test Item Value Reference Range Comments CULTURE (BEAKER) (test rvdc=8988) Amikacin (test code=1) Susceptible 0-16 , Resistant <0 or >16 Aztreonam (test code=32) Susceptible 0-4 , Resistant <0 or >4 Cefepime (test code=51) Susceptible <=2 , Dose Dependent Susceptible >2 , Resistant Ceftazidime (test code=27) Susceptible 0-4 , Resistant <0 or >4 Ceftriaxone (test code=52) Susceptible 0-1 , Resistant <0 or >1 Ciprofloxacin (test Susceptible 0-1 , code=7) Resistant <0 or >1 Ertapenem (test code=38) Susceptible 0-0.5 , Resistant <0 or >.5 Gentamicin (test code=18) Susceptible 0-4 , Resistant <0 or >4 Imipenem (test code=19) Susceptible 0-1 , Resistant <0 or >1 Levofloxacin (test Susceptible 0-2 , code=22) Resistant <0 or >2 Meropenem (test code=34) Susceptible 0-4 , Resistant <0 or >4 Minocycline (test code=35) Susceptible 0-4 , Resistant <0 or >4 Piperacillin + Tazobactam Susceptible 0-16 , (test code=29) Resistant <0 or >16 Tetracycline (test code=2) Susceptible 0-4 , Resistant <0 or >4 Tobramycin (test code=25) Susceptible 0-4 , Resistant <0 or >4 Trimethoprim + Susceptible 0-40 , Sulfamethoxazole (test Resistant <0 or >40 code=47) CULTURE (BEAKER) (test 2+ Enterobacter fexf=2156) cloacae GRAM STAIN RESULT (BEAKER) 2+ WBCs (test sjbg=5343) GRAM STAIN RESULT (BEAKER) <1+ gram positive (test svaw=710244) rods POCT-GLUCOSE [id number] 12:36:00 Test Item Value Reference Range Comments POC-GLUCOSE METER (BEAKER) 189 mg/dL 70-[address] [facility] [address] [facility] (test ihdr=1986) [facility] [address] CBC W/PLT COUNT & AUTO [id number] 08:34:00 Test Item Value Reference Range Comments WHITE BLOOD CELL COUNT (BEAKER) (test ebro=576) 12.2 K/ L 3.5-10.5 RED BLOOD CELL COUNT (BEAKER) (test lzbe=995) 2.94 M/ L 4.63-6.08 HEMOGLOBIN (BEAKER) (test wcbz=989) 9.5 GM/DL 13.7-17.5 HEMATOCRIT (BEAKER) (test mbxu=327) 30.4 % 40.1-51.0 MEAN CORPUSCULAR VOLUME (BEAKER) (test eyzu=583) 103.4 fL 79.0-92.2 MEAN CORPUSCULAR HEMOGLOBIN (BEAKER) (test 32.3 pg 25.7-32.2 lgcq=090) MEAN CORPUSCULAR HEMOGLOBIN CONC (BEAKER) (test 31.3 GM/DL 32.3-36.5 xfvl=850) RED CELL DISTRIBUTION WIDTH (BEAKER) (test 15.4 % 11.6-14.4 vldw=014) PLATELET COUNT (BEAKER) (test cslz=637) 247 K/CU MM 150-450 MEAN PLATELET VOLUME (BEAKER) (test quxg=669) 10.5 fL 9.4-12.4 NUCLEATED RED BLOOD CELLS (BEAKER) (test 1 /100 WBC 0-0 lihf=583) NEUTROPHILS RELATIVE PERCENT (BEAKER) (test 75 % weid=096) LYMPHOCYTES RELATIVE PERCENT (BEAKER) (test 10 % axaq=794) MONOCYTES RELATIVE PERCENT (BEAKER) (test 9 % jvwq=179) EOSINOPHILS RELATIVE PERCENT (BEAKER) (test 3 % ntil=782) BASOPHILS RELATIVE PERCENT (BEAKER) (test 0 % vuwx=502) NEUTROPHILS ABSOLUTE COUNT (BEAKER) (test 9.16 K/ L 1.78-5.38 tryi=911) LYMPHOCYTES ABSOLUTE COUNT (BEAKER) (test 1.18 K/ L 1.32-3.57 juuj=315) MONOCYTES ABSOLUTE COUNT (BEAKER) (test 1.08 K/ L 0.30-0.82 qqyx=108) EOSINOPHILS ABSOLUTE COUNT (BEAKER) (test 0.35 K/ L 0.04-0.54 ypss=150) BASOPHILS ABSOLUTE COUNT (BEAKER) (test 0.04 K/ L 0.01-0.08 upqk=922) IMMATURE GRANULOCYTES-RELATIVE PERCENT (BEAKER) 3 % 0-1 (test owss=4056) (MANUAL DIFFERENTIAL)2017-07-31 08:34:00 Test Item Value Reference Range Comments TOTAL COUNTED (BEAKER) (test rndv=6823) POCT-GLUCOSE [id number] 07:54:00 Test Item Value Reference Range Comments POC-GLUCOSE METER (BEAKER) 252 mg/dL 70-[address] [facility] [address] [facility] (test dhqj=6562) [facility] [address] BASIC METABOLIC [id number] 05:51:00 Test Item Value Reference Range Comments SODIUM (BEAKER) (test 141 meq/L 136-145 bklg=138) POTASSIUM (BEAKER) (test 3.8 meq/L 3.5-5.1 pckr=749) CHLORIDE (BEAKER) (test 106 meq/L 98-107 vsjt=280) CO2 (BEAKER) (test 26 meq/L 22-29 jcim=633) BLOOD UREA NITROGEN 46 mg/dL 7-21 (BEAKER) (test wubw=262) CREATININE (BEAKER) (test 2.01 mg/dL 0.57-1.25 isyp=035) GLUCOSE RANDOM (BEAKER) 165 mg/dL 70-105 (test qque=823) CALCIUM (BEAKER) (test 7.7 mg/dL 8.4-10.2 zxpk=733) EGFR (BEAKER) (test 33 mL/min/1.73 sq m ESTIMATED GFR IS NOT yizv=9112) ACCURATE CREATININE CLEARANCE IN PREDICTING GLOMERULAR FILTRATION RATE. ESTIMATED GFR IS NOT APPLICABLE FOR DIALYSIS PATIENTS. LIPID [id number] 05:48:00 Test Item Value Reference Range Comments TRIGLYCERIDES (BEAKER) (test more=597) 140 mg/dL CHOLESTEROL (BEAKER) (test smbw=824) 106 mg/dL HDL CHOLESTEROL (BEAKER) (test tfpz=165) 19 mg/dL LDL CHOLESTEROL CALCULATED (BEAKER) (test 59 mg/dL gntg=710) Triglyceride Reference Range: Low Risk <150 Borderline 150- 199 High Risk 200-499 Very High Risk >=500Cholesterol Reference Range: Low Risk <200 Borderline 200-239 High Risk > 240HDL Cholesterol Reference Range: Low Risk >=60 High Risk <40LDL Cholesterol Reference Range: Optimal <100 Near Optimal 100-129 Borderline 130-159 High 160-189 Very High >=190POCT-GLUCOSE [id number] 21:13:00 Test Item Value Reference Range Comments POC-GLUCOSE METER (BEAKER) 193 mg/dL 70-110 TESTED AT [address] (test qwgv=6905) [place] [address] POCT-GLUCOSE [id number] 17:46:00 Test Item Value Reference Range Comments POC-GLUCOSE METER (BEAKER) 214 mg/dL 70-110 TESTED AT [address] (test zetg=0703) [place] [address] [id number] 16:18:00 Test Item Value Reference Range Comments POTASSIUM (BEAKER) (test fwst=841) 3.6 meq/L 3.5-5.1 POCT-GLUCOSE [id number] 13:06:00 Test Item Value Reference Range Comments POC-GLUCOSE METER (BEAKER) 230 mg/dL 70-110 TESTED AT [address] (test iaor=1114) [place] [address] BASIC METABOLIC [id number] 08:41:00 Test Item Value Reference Range Comments SODIUM (BEAKER) (test 145 meq/L 136-145 adso=477) POTASSIUM (BEAKER) (test 3.9 meq/L 3.5-5.1 Specimen slightly tfdm=862) hemolyzed CHLORIDE (BEAKER) (test 107 meq/L 98-107 ycbv=778) CO2 (BEAKER) (test 25 meq/L 22-29 fsfl=213) BLOOD UREA NITROGEN 52 mg/dL 7-21 (BEAKER) (test rvhh=769) CREATININE (BEAKER) (test 2.09 mg/dL 0.57-1.25 Specimen slightly udjy=546) hemolyzed GLUCOSE RANDOM (BEAKER) 170 mg/dL 70-105 (test mmcc=370) CALCIUM (BEAKER) (test 8.2 mg/dL 8.4-10.2 qone=764) EGFR (BEAKER) (test 31 mL/min/1.73 sq m ESTIMATED GFR IS NOT qwfk=9337) ACCURATE CREATININE CLEARANCE IN PREDICTING GLOMERULAR FILTRATION RATE. ESTIMATED GFR IS NOT APPLICABLE FOR DIALYSIS PATIENTS. RAD, CHEST, 1 VIEW, NON [id number] 08:23:00Reason for exam:->pulmonary congestionShould this be performed at the bedside?->YesFINAL REPORT CLINICAL HISTORY: pulmonary congestion TECHNIQUE: 1 view of the chest. COMPARISON: 07/29/2017 IMPRESSION: The right jugular line appears to been removed. Bandlike opacities in the bilateral mid and lower lung zones are unchanged. Trace bilateral pleural effusions are again seen. Cardiomegaly is again seen poststernotomy. Signed: Audrey Pyle MDReport Verified Date/Time: 07/30/2017 08:23:04 Reading Location: [facility] Radiology Reading Room POCT- GLUCOSE [id number] 07:52:00 Test Item Value Reference Range Comments POC-GLUCOSE METER (BEAKER) 211 mg/dL 70-110 TESTED AT [address] (test xbpf=4013) [facility] [address] CBC W/PLT COUNT & AUTO [id number] 04:32:00 Test Item Value Reference Range Comments WHITE BLOOD CELL COUNT (BEAKER) (test rlwv=453) 12.3 K/ L 3.5-10.5 RED BLOOD CELL COUNT (BEAKER) (test qebi=479) 2.96 M/ L 4.63-6.08 HEMOGLOBIN (BEAKER) (test grqw=321) 9.4 GM/DL 13.7-17.5 HEMATOCRIT (BEAKER) (test ejev=925) 30.1 % 40.1-51.0 MEAN CORPUSCULAR VOLUME (BEAKER) (test jezn=853) 101.7 fL 79.0-92.2 MEAN CORPUSCULAR HEMOGLOBIN (BEAKER) (test 31.8 pg 25.7-32.2 npqm=284) MEAN CORPUSCULAR HEMOGLOBIN CONC (BEAKER) (test 31.2 GM/DL 32.3-36.5 reqq=706) RED CELL DISTRIBUTION WIDTH (BEAKER) (test 15.2 % 11.6-14.4 rqje=302) PLATELET COUNT (BEAKER) (test zhho=243) 219 K/CU MM 150-450 MEAN PLATELET VOLUME (BEAKER) (test hlxd=835) 11.3 fL 9.4-12.4 NUCLEATED RED BLOOD CELLS (BEAKER) (test 2 /100 WBC 0-0 tdxm=466) NEUTROPHILS RELATIVE PERCENT (BEAKER) (test 76 % enaw=045) LYMPHOCYTES RELATIVE PERCENT (BEAKER) (test 8 % xgfz=772) MONOCYTES RELATIVE PERCENT (BEAKER) (test 10 % wlby=403) EOSINOPHILS RELATIVE PERCENT (BEAKER) (test 3 % xqbl=363) BASOPHILS RELATIVE PERCENT (BEAKER) (test 0 % ruud=308) NEUTROPHILS ABSOLUTE COUNT (BEAKER) (test 9.35 K/ L 1.78-5.38 bnpv=852) LYMPHOCYTES ABSOLUTE COUNT (BEAKER) (test 0.97 K/ L 1.32-3.57 vmrh=317) MONOCYTES ABSOLUTE COUNT (BEAKER) (test 1.25 K/ L 0.30-0.82 eego=159) EOSINOPHILS ABSOLUTE COUNT (BEAKER) (test 0.41 K/ L 0.04-0.54 fpdu=473) BASOPHILS ABSOLUTE COUNT (BEAKER) (test 0.04 K/ L 0.01-0.08 hfux=758) IMMATURE GRANULOCYTES-RELATIVE PERCENT (BEAKER) 2 % 0-1 (test lkty=7872) POCT-GLUCOSE [id number] 18:50:00 Test Item Value Reference Range Comments POC-GLUCOSE METER (BEAKER) 139 mg/dL 70-[address] [facility] [address] [facility] (test tokm=3074) [facility] [address] [id number] 13:28:00 Test Item Value Reference Range Comments POTASSIUM (BEAKER) (test mblq=929) 3.7 meq/L 3.5-5.1 CBC W/PLT COUNT & AUTO [id number] 13:25:00 Test Item Value Reference Range Comments WHITE BLOOD CELL COUNT (BEAKER) (test cszo=538) 11.2 K/ L 3.5-10.5 RED BLOOD CELL COUNT (BEAKER) (test kaao=653) 2.67 M/ L 4.63-6.08 HEMOGLOBIN (BEAKER) (test kkvw=246) 8.8 GM/DL 13.7-17.5 HEMATOCRIT (BEAKER) (test fnii=899) 27.3 % 40.1-51.0 MEAN CORPUSCULAR VOLUME (BEAKER) (test xhpf=600) 102.2 fL 79.0-92.2 MEAN CORPUSCULAR HEMOGLOBIN (BEAKER) (test 33.0 pg 25.7-32.2 sles=987) MEAN CORPUSCULAR HEMOGLOBIN CONC (BEAKER) (test 32.2 GM/DL 32.3-36.5 bwqv=339) RED CELL DISTRIBUTION WIDTH (BEAKER) (test 15.3 % 11.6-14.4 xwae=188) PLATELET COUNT (BEAKER) (test azrx=872) 202 K/CU MM 150-450 MEAN PLATELET VOLUME (BEAKER) (test mnyu=355) 11.4 fL 9.4-12.4 NUCLEATED RED BLOOD CELLS (BEAKER) (test 3 /100 WBC 0-0 pakp=303) NEUTROPHILS RELATIVE PERCENT (BEAKER) (test 79 % euft=034) LYMPHOCYTES RELATIVE PERCENT (BEAKER) (test 8 % mfwx=841) MONOCYTES RELATIVE PERCENT (BEAKER) (test 9 % rpje=065) EOSINOPHILS RELATIVE PERCENT (BEAKER) (test 2 % ssrq=608) BASOPHILS RELATIVE PERCENT (BEAKER) (test 0 % zole=070) NEUTROPHILS ABSOLUTE COUNT (BEAKER) (test 8.88 K/ L 1.78-5.38 fqwh=068) LYMPHOCYTES ABSOLUTE COUNT (BEAKER) (test 0.89 K/ L 1.32-3.57 sjme=089) MONOCYTES ABSOLUTE COUNT (BEAKER) (test 1.00 K/ L 0.30-0.82 pnkk=702) EOSINOPHILS ABSOLUTE COUNT (BEAKER) (test 0.18 K/ L 0.04-0.54 haim=964) BASOPHILS ABSOLUTE COUNT (BEAKER) (test 0.03 K/ L 0.01-0.08 xlxb=544) IMMATURE GRANULOCYTES-RELATIVE PERCENT (BEAKER) 2 % 0-1 (test toso=1111) (MANUAL DIFFERENTIAL)2017-07-29 13:25:00 Test Item Value Reference Range Comments TOTAL COUNTED (BEAKER) (test yegd=6210) POCT-GLUCOSE [id number] 12:44:00 Test Item Value Reference Range Comments POC-GLUCOSE METER (BEAKER) 251 mg/dL 70-[address] [facility] [address] [place] [address] (test qjqo=2796) [facility] [address] RAD, CHEST, 1 VIEW, NON [id number] 09:58:00Reason for exam:->pulmonary congestionShould this be performed at the bedside?->YesFINAL REPORT CLINICAL HISTORY: pulmonary congestion TECHNIQUE: 1 view of the chest. COMPARISON: 07/28/2017 IMPRESSION: The right central line is unchanged. Pulmonary vascular congestive findings are unchanged without new lobar consolidation. There is a trace right effusion. The cardiomediastinal silhouette is magnified by technique with sternotomy wires. Signed: Audrey Pyle Verified Date/Time: 07/29/2017 09:58:36 Reading Location: [facility] Radiology Reading Room POCT-GLUCOSE [id number] 08:36:00 Test Item Value Reference Range Comments POC-GLUCOSE METER (BEAKER) 198 mg/dL 70-110 TESTED AT [address] (test izky=2156) [facility] [address] CALCIUM, [id number] 06:14:00 Test Item Value Reference Range Comments CALCIUM IONIZED (BEAKER) (test xiow=603) 0.98 mmol/L 1.12-1.27 PH, BLOOD (BEAKER) (test pivt=3537) 7.43 BASIC METABOLIC [id number] 05:40:00 Test Item Value Reference Range Comments SODIUM (BEAKER) (test 146 meq/L 136-145 eczg=932) POTASSIUM (BEAKER) (test 3.3 meq/L 3.5-5.1 etpe=412) CHLORIDE (BEAKER) (test 108 meq/L 98-107 eccs=902) CO2 (BEAKER) (test 26 meq/L 22-29 jpqs=978) BLOOD UREA NITROGEN 63 mg/dL 7-21 (BEAKER) (test qmso=143) CREATININE (BEAKER) (test 2.25 mg/dL 0.57-1.25 vzqz=480) GLUCOSE RANDOM (BEAKER) 165 mg/dL 70-105 (test fnst=175) CALCIUM (BEAKER) (test 8.2 mg/dL 8.4-10.2 vumr=087) EGFR (BEAKER) (test 29 mL/min/1.73 sq m ESTIMATED GFR IS NOT boow=5944) ACCURATE CREATININE CLEARANCE IN PREDICTING GLOMERULAR FILTRATION RATE. ESTIMATED GFR IS NOT APPLICABLE FOR DIALYSIS PATIENTS. [id number] 05:36:00 Test Item Value Reference Range Comments POTASSIUM (BEAKER) (test ycbm=661) 3.3 meq/L 3.5-5.1 [id number] 05:36:00 Test Item Value Reference Range Comments MAGNESIUM (BEAKER) (test gzyu=257) 2.1 mg/dL 1.6-2.6 [id number] 01:31:00 Test Item Value Reference Range Comments POTASSIUM (BEAKER) (test mrrm=885) 3.5 meq/L 3.5-5.1 [id number] 01:31:00 Test Item Value Reference Range Comments MAGNESIUM (BEAKER) (test boxg=626) 2.0 mg/dL 1.6-2.6 CALCIUM, [id number] 01:14:00 Test Item Value Reference Range Comments CALCIUM IONIZED (BEAKER) (test nmhl=915) 0.96 mmol/L 1.12-1.27 PH, BLOOD (BEAKER) (test frjs=8579) 7.46 POCT-GLUCOSE [id number] 21:48:00 Test Item Value Reference Range Comments POC-GLUCOSE METER (BEAKER) 200 mg/dL 70-110 TESTED AT [address] (test lirm=3401) [facility] [address] BASIC METABOLIC [id number] 20:08:00 Test Item Value Reference Range Comments SODIUM (BEAKER) (test 147 meq/L 136-145 txfu=815) POTASSIUM (BEAKER) (test 3.8 meq/L 3.5-5.1 ngne=993) CHLORIDE (BEAKER) (test 109 meq/L 98-107 joaq=300) CO2 (BEAKER) (test 26 meq/L 22-29 frgg=251) BLOOD UREA NITROGEN 66 mg/dL 7-21 (BEAKER) (test cnlv=406) CREATININE (BEAKER) (test 2.32 mg/dL 0.57-1.25 trui=993) GLUCOSE RANDOM (BEAKER) 140 mg/dL 70-105 (test imvh=696) CALCIUM (BEAKER) (test 8.8 mg/dL 8.4-10.2 tooe=977) EGFR (BEAKER) (test 28 mL/min/1.73 sq m ESTIMATED GFR IS NOT xjls=1023) ACCURATE CREATININE CLEARANCE IN PREDICTING GLOMERULAR FILTRATION RATE. ESTIMATED GFR IS NOT APPLICABLE FOR DIALYSIS PATIENTS. [id number] 19:29:00 Test Item Value Reference Range Comments POTASSIUM (BEAKER) (test uwmy=290) 3.8 meq/L 3.5-5.1 [id number] 19:29:00 Test Item Value Reference Range Comments MAGNESIUM (BEAKER) (test wzii=643) 2.2 mg/dL 1.6-2.6 CALCIUM, [id number] 19:16:00 Test Item Value Reference Range Comments CALCIUM IONIZED (BEAKER) (test zkox=463) 1.04 mmol/L 1.12-1.27 PH, BLOOD (BEAKER) (test mnow=5367) 7.48 POCT-GLUCOSE [id number] 18:17:00 Test Item Value Reference Range Comments POC-GLUCOSE METER (BEAKER) 145 mg/dL 70-110 TESTED AT [address] (test ceij=2504) [place] [address] POCT-GLUCOSE [id number] 18:17:00 Test Item Value Reference Range Comments POC-GLUCOSE METER (BEAKER) 99 mg/dL 70-110 TESTED AT [address] (test ehxp=4328) [place] [id number] POCT-GLUCOSE [id number] 18:17:00 Test Item Value Reference Range Comments POC-GLUCOSE METER (BEAKER) 132 mg/dL 70-110 TESTED AT [address] (test bkqj=1739) [place] [id number] POCT-GLUCOSE [id number] 18:17:00 Test Item Value Reference Range Comments POC-GLUCOSE METER (BEAKER) 132 mg/dL 70-110 TESTED AT [address] (test cazj=0926) [place] [id number] CT, BRAIN, WITHOUT [id number] 18:16:00FINAL REPORT CT head without contrast. Comparisons: No Reason for exam: Focal neuro deficit, new, fixed or worsening, <6 hours. Discussion: Multiple axial CT imagesof the head are provided without contrast evaluated in brain and bone windows. Dose modulation, iterative reconstruction, and/or weight based adjustment of the mA/kV was utilized to reduce the radiation dose to as low as reasonably achievable. There is no CT evidence of intracranial hemorrhage, mass-effect, hydrocephalus, shift, or extra-axial collections. 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 An age indeterminate perhaps subacute infarct of the right middle frontal gyrus is noted as well. While I see no definitive acute large vessel infarction, please note that CT is not sensitive in detecting or distinguishing acute ischemic disease. The visualized dural sinus regions, orbital contents, paranasal sinuses, bones and surrounding soft tissues are unremarkable. Impressions: 1. Right frontal lobe ischemic changes are discussed. The middle frontal gyrus infarct might be recent, although the appearance suggest time from subacute or older. No hematoma or mass effect. Signed: Taty Osborne Verified Date/Time: 07/28/2017 18:16:35 POCT-GLUCOSE [id number] 16:20: 00 Test Item Value Reference Range Comments POC-GLUCOSE METER (BEAKER) 183 mg/dL 70-[address] [facility] [address] [facility] (test iaec=7103) [facility] [address] [id number] 15:02:00 Test Item Value Reference Range Comments POTASSIUM (BEAKER) (test qejg=709) 3.7 meq/L 3.5-5.1 [id number] 15:02:00 Test Item Value Reference Range Comments MAGNESIUM (BEAKER) (test tmng=535) 2.2 mg/dL 1.6-2.6 CALCIUM, [id number] 14:46:00 Test Item Value Reference Range Comments CALCIUM IONIZED (BEAKER) (test oapl=185) 1.09 mmol/L 1.12-1.27 PH, BLOOD (BEAKER) (test szks=0859) 7.45 BASIC METABOLIC [id number] 11:18:00 Test Item Value Reference Range Comments SODIUM (BEAKER) (test 150 meq/L 136-145 nxrh=150) POTASSIUM (BEAKER) (test 3.7 meq/L 3.5-5.1 ddpe=033) CHLORIDE (BEAKER) (test 112 meq/L 98-107 penv=232) CO2 (BEAKER) (test 27 meq/L 22-29 ykzy=711) BLOOD UREA NITROGEN 64 mg/dL 7-21 (BEAKER) (test pjmg=312) CREATININE (BEAKER) (test 2.30 mg/dL 0.57-1.25 ujnd=717) GLUCOSE RANDOM (BEAKER) 135 mg/dL 70-105 (test dzgd=415) CALCIUM (BEAKER) (test 8.8 mg/dL 8.4-10.2 vutx=686) EGFR (BEAKER) (test 28 mL/min/1.73 sq m ESTIMATED GFR IS NOT woow=7220) ACCURATE CREATININE CLEARANCE IN PREDICTING GLOMERULAR FILTRATION RATE. ESTIMATED GFR IS NOT APPLICABLE FOR DIALYSIS PATIENTS. RAD, CHEST, 1 VIEW, NON [id number] 08:31:00Reason for exam:->pulmonary congestionShould this be performed at the bedside?->YesFINAL REPORT CLINICAL HISTORY: pulmonary congestion TECHNIQUE: 1 view of the chest. COMPARISON: 07/27/2017 IMPRESSION: The chest tubes have aerated. The right central line remains.There is no visualized evidence for pneumothorax, although the left lung base is excluded. The lung perkins are otherwise unchanged. The cardiomediastinal silhouette is magnified by technique with sternotomy wires. Signed: Audrey Pyle MDReport Verified Date/Time: 07/28/2017 08:31:10 Reading Location: [facility] Radiology Reading Room BASIC METABOLIC [id number] 06:16 :00 Test Item Value Reference Range Comments SODIUM (BEAKER) (test 149 meq/L 136-145 vset=491) POTASSIUM (BEAKER) (test 4.0 meq/L 3.5-5.1 Specimen slightly rbpk=218) hemolyzed CHLORIDE (BEAKER) (test 112 meq/L 98-107 jxsf=157) CO2 (BEAKER) (test 25 meq/L 22-29 qpgl=761) BLOOD UREA NITROGEN 61 mg/dL 7-21 (BEAKER) (test npyc=898) CREATININE (BEAKER) (test 2.28 mg/dL 0.57-1.25 Specimen slightly zjkp=219) hemolyzed GLUCOSE RANDOM (BEAKER) 127 mg/dL 70-105 (test ckkf=280) CALCIUM (BEAKER) (test 8.6 mg/dL 8.4-10.2 ajac=689) EGFR (BEAKER) (test 28 mL/min/1.73 sq m ESTIMATED GFR IS NOT tngi=9580) ACCURATE CREATININE CLEARANCE IN PREDICTING GLOMERULAR FILTRATION RATE. ESTIMATED GFR IS NOT APPLICABLE FOR DIALYSIS PATIENTS. [id number] 06:07:00 Test Item Value Reference Range Comments MAGNESIUM (BEAKER) (test 2.3 mg/dL 1.6-2.6 Specimen slightly hemolyzed rrvv=988) [id number] 06:07:00 Test Item Value Reference Range Comments PHOSPHORUS (BEAKER) (test 3.5 mg/dL 2.3-4.7 Specimen slightly hemolyzed kmjd=464) [id number] 06:07:00 Test Item Value Reference Range Comments POTASSIUM (BEAKER) (test 4.0 meq/L 3.5-5.1 Specimen slightly hemolyzed gcde=168) CBC W/PLT COUNT & AUTO [id number] 05:51:00 Test Item Value Reference Range Comments WHITE BLOOD CELL COUNT (BEAKER) (test pbqn=654) 9.2 K/ L 3.5-10.5 RED BLOOD CELL COUNT (BEAKER) (test qmsn=994) 2.77 M/ L 4.63-6.08 HEMOGLOBIN (BEAKER) (test bybz=650) 9.0 GM/DL 13.7-17.5 HEMATOCRIT (BEAKER) (test mpmg=833) 28.0 % 40.1-51.0 MEAN CORPUSCULAR VOLUME (BEAKER) (test kknn=925) 101.1 fL 79.0-92.2 MEAN CORPUSCULAR HEMOGLOBIN (BEAKER) (test 32.5 pg 25.7-32.2 cmkg=767) MEAN CORPUSCULAR HEMOGLOBIN CONC (BEAKER) (test 32.1 GM/DL 32.3-36.5 inte=891) RED CELL DISTRIBUTION WIDTH (BEAKER) (test 14.9 % 11.6-14.4 zjyo=153) PLATELET COUNT (BEAKER) (test mcjh=357) 157 K/CU MM 150-450 MEAN PLATELET VOLUME (BEAKER) (test jalv=979) 12.4 fL 9.4-12.4 NUCLEATED RED BLOOD CELLS (BEAKER) (test 1 /100 WBC 0-0 dlti=614) IMMATURE GRANULOCYTES-RELATIVE PERCENT (BEAKER) 1 % 0-1 (test zngj=3533) CALCIUM, [id number] 05:13:00 Test Item Value Reference Range Comments CALCIUM IONIZED (BEAKER) (test vpzc=475) 1.09 mmol/L 1.12-1.27 PH, BLOOD (BEAKER) (test bdbd=0663) 7.45 [id number] 00:51:00 Test Item Value Reference Range Comments POTASSIUM (BEAKER) (test gtuy=276) 4.1 meq/L 3.5-5.1 [id number] 00:51:00 Test Item Value Reference Range Comments MAGNESIUM (BEAKER) (test oxlo=645) 2.2 mg/dL 1.6-2.6 CALCIUM, [id number] 00:46:00 Test Item Value Reference Range Comments CALCIUM IONIZED (BEAKER) (test xopr=829) 1.11 mmol/L 1.12-1.27 PH, BLOOD (BEAKER) (test euhl=4234) 7.47 POCT-GLUCOSE [id number] 22:39:00 Test Item Value Reference Range Comments POC-GLUCOSE METER (BEAKER) 167 mg/dL 70-110 TESTED AT [address] (test vlev=8408) [facility] [address] BASIC METABOLIC [id number] 21:20:00 Test Item Value Reference Range Comments SODIUM (BEAKER) (test 148 meq/L 136-145 wvgl=555) POTASSIUM (BEAKER) (test 3.9 meq/L 3.5-5.1 ccnc=078) CHLORIDE (BEAKER) (test 111 meq/L 98-107 opof=262) CO2 (BEAKER) (test 28 meq/L 22-29 ggqz=093) BLOOD UREA NITROGEN 53 mg/dL 7-21 (BEAKER) (test kguq=371) CREATININE (BEAKER) (test 2.26 mg/dL 0.57-1.25 vauw=749) GLUCOSE RANDOM (BEAKER) 138 mg/dL 70-105 (test ctaq=606) CALCIUM (BEAKER) (test 9.2 mg/dL 8.4-10.2 ltto=834) EGFR (BEAKER) (test 29 mL/min/1.73 sq m ESTIMATED GFR IS NOT qsfs=7078) ACCURATE CREATININE CLEARANCE IN PREDICTING GLOMERULAR FILTRATION RATE. ESTIMATED GFR IS NOT APPLICABLE FOR DIALYSIS PATIENTS. [id number] 18:54:00 Test Item Value Reference Range Comments POTASSIUM (BEAKER) (test iwey=098) 4.0 meq/L 3.5-5.1 [id number] 18:54:00 Test Item Value Reference Range Comments MAGNESIUM (BEAKER) (test mimv=201) 2.3 mg/dL 1.6-2.6 CALCIUM, [id number] 18:10:00 Test Item Value Reference Range Comments CALCIUM IONIZED (BEAKER) (test azts=429) 1.13 mmol/L 1.12-1.27 PH, BLOOD (BEAKER) (test nixo=7772) 7.46 BASIC METABOLIC [id number] 09:04:00 Test Item Value Reference Range Comments SODIUM (BEAKER) (test 146 meq/L 136-145 sbra=250) POTASSIUM (BEAKER) (test 4.0 meq/L 3.5-5.1 ahqu=756) CHLORIDE (BEAKER) (test 111 meq/L 98-107 sjtm=386) CO2 (BEAKER) (test 26 meq/L 22-29 lbuj=073) BLOOD UREA NITROGEN 46 mg/dL 7-21 (BEAKER) (test pafy=666) CREATININE (BEAKER) (test 2.35 mg/dL 0.57-1.25 grzf=832) GLUCOSE RANDOM (BEAKER) 152 mg/dL 70-105 (test rbjo=370) CALCIUM (BEAKER) (test 9.0 mg/dL 8.4-10.2 smxp=711) EGFR (BEAKER) (test 27 mL/min/1.73 sq m ESTIMATED GFR IS NOT sjzm=1358) ACCURATE CREATININE CLEARANCE IN PREDICTING GLOMERULAR FILTRATION RATE. ESTIMATED GFR IS NOT APPLICABLE FOR DIALYSIS PATIENTS. RAD, CHEST, 1 VIEW, NON [id number] 05:14:00Reason for exam:->chest tubesFINAL REPORT Chest one view. Clinical history: chest tubes Comparison: Chestradiograph 07/26/2017, 806a. Technique: A single frontal view of the chest was obtained. Findings/impression: There are bilateral chest tubes unchanged in position. There is a mediastinal drain. There is a right IJ central venous catheter with tip in the SVC. The patient is status post median sternotomy and cardiac surgery. The cardiac silhouette is enlarged. The aorta is atherosclerotic.There are small bilateral pleural effusions. There is discoid atelectasis in the left lower lobe. There is no pneumothorax. Signed: Taylor Alvarado MDReport Verified Date/Time: 2017 05:14:18 Reading Location: [address] Transitional Reading Room Electronically signed by: TAYLOR ALVARADO MD on07/27/2017 05:14 AMCALCIUM , [id number] 04:52:00 Test Item Value Reference Range Comments CALCIUM IONIZED (BEAKER) (test uwha=025) 1.13 mmol/L 1.12-1.27 PH, BLOOD (BEAKER) (test wlmd=8779) 7.40 BASIC METABOLIC [id number] 04:49:00 Test Item Value Reference Range Comments SODIUM (BEAKER) (test 146 meq/L 136-145 fxkc=631) POTASSIUM (BEAKER) (test 4.1 meq/L 3.5-5.1 bagg=148) CHLORIDE (BEAKER) (test 111 meq/L 98-107 bdlq=387) CO2 (BEAKER) (test 24 meq/L 22-29 fgoe=692) BLOOD UREA NITROGEN 42 mg/dL 7-21 (BEAKER) (test nkio=142) CREATININE (BEAKER) (test 2.41 mg/dL 0.57-1.25 oeqx=693) GLUCOSE RANDOM (BEAKER) 149 mg/dL 70-105 (test ckyu=028) CALCIUM (BEAKER) (test 9.5 mg/dL 8.4-10.2 nvzf=315) EGFR (BEAKER) (test 26 mL/min/1.73 sq m ESTIMATED GFR IS NOT izdw=7155) ACCURATE CREATININE CLEARANCE IN PREDICTING GLOMERULAR FILTRATION RATE. ESTIMATED GFR IS NOT APPLICABLE FOR DIALYSIS PATIENTS. OXYGEN SATURATION, [id number] 04:36:00 Test Item Value Reference Range Comments O2 SATURATION (MEASURED) (BEAKER) (test jzvb=1474) 59.2 % [id number] 04:35:00 Test Item Value Reference Range Comments POTASSIUM (BEAKER) (test vgvs=343) 4.1 meq/L 3.5-5.1 [id number] 04:35:00 Test Item Value Reference Range Comments MAGNESIUM (BEAKER) (test lxcg=087) 2.0 mg/dL 1.6-2.6 [id number] 04:35:00 Test Item Value Reference Range Comments PHOSPHORUS (BEAKER) (test lubn=351) 4.5 mg/dL 2.3-4.7 LACTIC ACID, ARTERIAL, WHOLE [id number] 04:16:00 Test Item Value Reference Range Comments LACTATE BLOOD ARTERIAL (2) (BEAKER) (test 1.3 mmol/L 0.5-2.2 rnry=7624) Effective 09/27/2015: Units/Reference Range ChangeNew: 0.5-2.2 mmol/L Previous: 5 -20 mg/dLCBC W/PLT COUNT & AUTO [id number] 04:07:00 Test Item Value Reference Range Comments WHITE BLOOD CELL COUNT (BEAKER) (test yvwu=872) 11.9 K/ L 3.5-10.5 RED BLOOD CELL COUNT (BEAKER) (test ahfk=934) 2.67 M/ L 4.63-6.08 HEMOGLOBIN (BEAKER) (test ufla=369) 9.0 GM/DL 13.7-17.5 HEMATOCRIT (BEAKER) (test kxdz=254) 26.9 % 40.1-51.0 MEAN CORPUSCULAR VOLUME (BEAKER) (test aqft=291) 100.7 fL 79.0-92.2 MEAN CORPUSCULAR HEMOGLOBIN (BEAKER) (test 33.7 pg 25.7-32.2 myob=932) MEAN CORPUSCULAR HEMOGLOBIN CONC (BEAKER) (test 33.5 GM/DL 32.3-36.5 kkwp=903) RED CELL DISTRIBUTION WIDTH (BEAKER) (test 14.9 % 11.6-14.4 zfug=667) PLATELET COUNT (BEAKER) (test eiry=836) 137 K/CU MM 150-450 MEAN PLATELET VOLUME (BEAKER) (test iskx=536) 11.3 fL 9.4-12.4 NUCLEATED RED BLOOD CELLS (BEAKER) (test 0 /100 WBC 0-0 deix=421) NEUTROPHILS RELATIVE PERCENT (BEAKER) (test 84 % uulx=576) LYMPHOCYTES RELATIVE PERCENT (BEAKER) (test 7 % ypid=723) MONOCYTES RELATIVE PERCENT (BEAKER) (test 6 % wisv=798) EOSINOPHILS RELATIVE PERCENT (BEAKER) (test 2 % vzfo=875) BASOPHILS RELATIVE PERCENT (BEAKER) (test 0 % zovc=508) NEUTROPHILS ABSOLUTE COUNT (BEAKER) (test 10.05 K/ L 1.78-5.38 tgqj=545) LYMPHOCYTES ABSOLUTE COUNT (BEAKER) (test 0.78 K/ L 1.32-3.57 rwtq=378) MONOCYTES ABSOLUTE COUNT (BEAKER) (test 0.70 K/ L 0.30-0.82 hhlq=439) EOSINOPHILS ABSOLUTE COUNT (BEAKER) (test 0.26 K/ L 0.04-0.54 fvig=872) BASOPHILS ABSOLUTE COUNT (BEAKER) (test 0.02 K/ L 0.01-0.08 edul=807) IMMATURE GRANULOCYTES-RELATIVE PERCENT (BEAKER) 1 % 0-1 (test ebec=8841) BASIC METABOLIC [id number] 20:45:00 Test Item Value Reference Range Comments SODIUM (BEAKER) (test 146 meq/L 136-145 uzyr=435) POTASSIUM (BEAKER) (test 4.1 meq/L 3.5-5.1 eslr=441) CHLORIDE (BEAKER) (test 111 meq/L 98-107 cnlo=624) CO2 (BEAKER) (test 24 meq/L 22-29 qqgv=351) BLOOD UREA NITROGEN 38 mg/dL 7-21 (BEAKER) (test xzxq=337) CREATININE (BEAKER) (test 2.48 mg/dL 0.57-1.25 bypr=744) GLUCOSE RANDOM (BEAKER) 109 mg/dL 70-105 (test osim=477) CALCIUM (BEAKER) (test 9.4 mg/dL 8.4-10.2 gnig=884) EGFR (BEAKER) (test 26 mL/min/1.73 sq m ESTIMATED GFR IS NOT imxm=2462) ACCURATE CREATININE CLEARANCE IN PREDICTING GLOMERULAR FILTRATION RATE. ESTIMATED GFR IS NOT APPLICABLE FOR DIALYSIS PATIENTS. BLOOD GAS, [id number] 20:35:00 Test Item Value Reference Range Comments PH ARTERIAL (BEAKER) (test skqh=602) 7.48 7.35-7.45 PCO2 ARTERIAL (BEAKER) (test ziam=099) 34 mmHg 35-45 PO2 ARTERIAL (BEAKER) (test jzop=463) 114 mmHg 80-90 O2 SATURATION ARTERIAL (BEAKER) (test sicm=973) 98.4 % 96.0-97.0 HCO3 ARTERIAL (BEAKER) (test mdox=189) 25 mmol/L 21-29 BASE EXCESS ARTERIAL (BEAKER) (test szlt=264) 1.6 mmol/L -2.0-3.0 PATIENT TEMPERATURE (BEAKER) (test frkn=7701) 37.3 C FIO2 (BEAKER) (test klns=3967) 52.0 % BLOOD GAS, [id number] 19:21:00 Test Item Value Reference Range Comments PH ARTERIAL (BEAKER) (test pnxn=879) 7.47 7.35-7.45 PCO2 ARTERIAL (BEAKER) (test fvgs=522) 36 mmHg 35-45 PO2 ARTERIAL (BEAKER) (test enfp=633) 141 mmHg 80-90 O2 SATURATION ARTERIAL (BEAKER) (test opds=081) 98.9 % 96.0-97.0 HCO3 ARTERIAL (BEAKER) (test ndfc=691) 26 mmol/L 21-29 BASE EXCESS ARTERIAL (BEAKER) (test rdfp=901) 2.3 mmol/L -2.0-3.0 PATIENT TEMPERATURE (BEAKER) (test bubt=4282) 37.1 C FIO2 (BEAKER) (test mxcf=2818) 100.0 % BASIC METABOLIC [id number] 17:33:00 Test Item Value Reference Range Comments SODIUM (BEAKER) (test 146 meq/L 136-145 nctk=182) POTASSIUM (BEAKER) (test 4.2 meq/L 3.5-5.1 tucd=548) CHLORIDE (BEAKER) (test 111 meq/L 98-107 ssaf=863) CO2 (BEAKER) (test 27 meq/L 22-29 nhgl=546) BLOOD UREA NITROGEN 34 mg/dL 7-21 (BEAKER) (test yncg=133) CREATININE (BEAKER) (test 2.54 mg/dL 0.57-1.25 vqso=940) GLUCOSE RANDOM (BEAKER) 112 mg/dL 70-105 (test cink=454) CALCIUM (BEAKER) (test 9.6 mg/dL 8.4-10.2 lpsw=200) EGFR (BEAKER) (test 25 mL/min/1.73 sq m ESTIMATED GFR IS NOT zejn=9559) ACCURATE CREATININE CLEARANCE IN PREDICTING GLOMERULAR FILTRATION RATE. ESTIMATED GFR IS NOT APPLICABLE FOR DIALYSIS PATIENTS. [id number] 17:29:00 Test Item Value Reference Range Comments POTASSIUM (BEAKER) (test dhsy=371) 4.2 meq/L 3.5-5.1 [id number] 17:29:00 Test Item Value Reference Range Comments MAGNESIUM (BEAKER) (test teof=155) 2.1 mg/dL 1.6-2.6 CBC W/PLT COUNT & AUTO [id number] 17:14:00 Test Item Value Reference Range Comments WHITE BLOOD CELL COUNT (BEAKER) (test fpig=133) 13.2 K/ L 3.5-10.5 RED BLOOD CELL COUNT (BEAKER) (test qlaa=041) 2.95 M/ L 4.63-6.08 HEMOGLOBIN (BEAKER) (test kvnj=772) 9.6 GM/DL 13.7-17.5 HEMATOCRIT (BEAKER) (test rden=374) 29.2 % 40.1-51.0 MEAN CORPUSCULAR VOLUME (BEAKER) (test ovic=590) 99.0 fL 79.0-92.2 MEAN CORPUSCULAR HEMOGLOBIN (BEAKER) (test 32.5 pg 25.7-32.2 skag=263) MEAN CORPUSCULAR HEMOGLOBIN CONC (BEAKER) (test 32.9 GM/DL 32.3-36.5 elqm=795) RED CELL DISTRIBUTION WIDTH (BEAKER) (test 14.9 % 11.6-14.4 shwp=168) PLATELET COUNT (BEAKER) (test ikbv=365) 139 K/CU MM 150-450 MEAN PLATELET VOLUME (BEAKER) (test hvlw=508) 12.0 fL 9.4-12.4 NUCLEATED RED BLOOD CELLS (BEAKER) (test 0 /100 WBC 0-0 bkoa=273) NEUTROPHILS RELATIVE PERCENT (BEAKER) (test 83 % wose=199) LYMPHOCYTES RELATIVE PERCENT (BEAKER) (test 7 % rxyo=823) MONOCYTES RELATIVE PERCENT (BEAKER) (test 7 % yqyt=343) EOSINOPHILS RELATIVE PERCENT (BEAKER) (test 2 % unwm=968) BASOPHILS RELATIVE PERCENT (BEAKER) (test 0 % iywn=775) NEUTROPHILS ABSOLUTE COUNT (BEAKER) (test 10.94 K/ L 1.78-5.38 cfxp=864) LYMPHOCYTES ABSOLUTE COUNT (BEAKER) (test 0.91 K/ L 1.32-3.57 mkxj=617) MONOCYTES ABSOLUTE COUNT (BEAKER) (test 0.98 K/ L 0.30-0.82 phst=055) EOSINOPHILS ABSOLUTE COUNT (BEAKER) (test 0.22 K/ L 0.04-0.54 cllj=298) BASOPHILS ABSOLUTE COUNT (BEAKER) (test 0.04 K/ L 0.01-0.08 rcyy=210) IMMATURE GRANULOCYTES-RELATIVE PERCENT (BEAKER) 1 % 0-1 (test shab=6498) CALCIUM, [id number] 16:53:00 Test Item Value Reference Range Comments CALCIUM IONIZED (BEAKER) (test ubgy=455) 1.16 mmol/L 1.12-1.27 PH, BLOOD (BEAKER) (test mcqf=8752) 7.47 BLOOD GAS, [id number] 14:56:00 Test Item Value Reference Range Comments PH ARTERIAL (BEAKER) (test akfy=628) 7.48 7.35-7.45 PCO2 ARTERIAL (BEAKER) (test dnlx=192) 36 mmHg 35-45 PO2 ARTERIAL (BEAKER) (test bdhl=741) 150 mmHg 80-90 O2 SATURATION ARTERIAL (BEAKER) (test suag=759) 99.1 % 96.0-97.0 HCO3 ARTERIAL (BEAKER) (test zgit=639) 27 mmol/L 21-29 BASE EXCESS ARTERIAL (BEAKER) (test rlfl=465) 2.9 mmol/L -2.0-3.0 PATIENT TEMPERATURE (BEAKER) (test ezys=5923) 36.7 C FIO2 (BEAKER) (test omyn=9463) 40.0 % [id number] 13:15:00 Test Item Value Reference Range Comments POTASSIUM (BEAKER) (test lecd=436) 4.2 meq/L 3.5-5.1 [id number] 13:15:00 Test Item Value Reference Range Comments MAGNESIUM (BEAKER) (test cvpg=766) 2.2 mg/dL 1.6-2.6 CALCIUM, [id number] 12:44:00 Test Item Value Reference Range Comments CALCIUM IONIZED (BEAKER) (test dhyo=046) 1.18 mmol/L 1.12-1.27 PH, BLOOD (BEAKER) (test bzzn=4380) 7.47 BASIC METABOLIC [id number] 10:34:00 Test Item Value Reference Range Comments SODIUM (BEAKER) (test 145 meq/L 136-145 wdhn=049) POTASSIUM (BEAKER) (test 4.0 meq/L 3.5-5.1 iuvp=493) CHLORIDE (BEAKER) (test 112 meq/L 98-107 jhmi=180) CO2 (BEAKER) (test 23 meq/L 22-29 qafd=550) BLOOD UREA NITROGEN 31 mg/dL 7-21 (BEAKER) (test fjpr=008) CREATININE (BEAKER) (test 2.49 mg/dL 0.57-1.25 tbwb=882) GLUCOSE RANDOM (BEAKER) 127 mg/dL 70-105 (test cokq=415) CALCIUM (BEAKER) (test 10.1 mg/dL 8.4-10.2 ciyd=649) EGFR (BEAKER) (test 25 mL/min/1.73 sq m ESTIMATED GFR IS NOT lode=5655) ACCURATE CREATININE CLEARANCE IN PREDICTING GLOMERULAR FILTRATION RATE. ESTIMATED GFR IS NOT APPLICABLE FOR DIALYSIS PATIENTS. BLOOD GAS, [id number] 09:31:00 Test Item Value Reference Range Comments PH ARTERIAL (BEAKER) (test vupy=452) 7.48 7.35-7.45 PCO2 ARTERIAL (BEAKER) (test jbpt=836) 33 mmHg 35-45 PO2 ARTERIAL (BEAKER) (test xwtj=481) 112 mmHg 80-90 O2 SATURATION ARTERIAL (BEAKER) (test fnko=320) 98.4 % 96.0-97.0 HCO3 ARTERIAL (BEAKER) (test adwv=291) 24 mmol/L 21-29 BASE EXCESS ARTERIAL (BEAKER) (test kbng=467) 1.0 mmol/L -2.0-3.0 PATIENT TEMPERATURE (BEAKER) (test yxmj=3774) 36.7 C FIO2 (BEAKER) (test dgvc=5460) 40.0 % RAD, CHEST, 1 VIEW, NON [id number] 08:44:00Reason for exam:->chest tubesFINAL REPORT CHEST ONE VIEW HISTORY: Chest tubes COMPARISON: 07/25/2017 FINDINGS: Single portable AP examination of the chest was performed. Bilateral chest tubes remain in place.No pneumothorax is identified. Mild bilateral pulmonary opacities are similar in appearance suggestive of edema and/or atelectasis. No large pleural effusions. Right jugular catheter tip is in the region of the SVC. A substernal drain is present. Cardiac shadow partially obscured. Signed: Keri DelatorreMDReport Verified Date/Time: 07/26/2017 08:44:33 Reading Location: [facility] [id number] Ortho Consult Reading Room Electronically signed by: KERI DELATORRE MD on 2017 08:44 AMPOCT-GLUCOSE [id number] 07:25:00 Test Item Value Reference Range Comments POC-GLUCOSE METER (BEAKER) 120 mg/dL 70-110 TESTED AT [address] (test byvi=6726) [facility] [id number] BASIC METABOLIC [id number] 05:41:00 Test Item Value Reference Range Comments SODIUM (BEAKER) (test 145 meq/L 136-145 rhnc=854) POTASSIUM (BEAKER) (test 4.1 meq/L 3.5-5.1 olqw=339) CHLORIDE (BEAKER) (test 112 meq/L 98-107 xspf=455) CO2 (BEAKER) (test 21 meq/L 22-29 maxm=285) BLOOD UREA NITROGEN 29 mg/dL 7-21 (BEAKER) (test vggi=264) CREATININE (BEAKER) (test 2.50 mg/dL 0.57-1.25 ergy=017) GLUCOSE RANDOM (BEAKER) 126 mg/dL 70-105 (test advw=317) CALCIUM (BEAKER) (test 8.3 mg/dL 8.4-10.2 zlny=045) EGFR (BEAKER) (test 25 mL/min/1.73 sq m ESTIMATED GFR IS NOT znkd=7562) ACCURATE CREATININE CLEARANCE IN PREDICTING GLOMERULAR FILTRATION RATE. ESTIMATED GFR IS NOT APPLICABLE FOR DIALYSIS PATIENTS. OXYGEN SATURATION, [id number] 05:34:00 Test Item Value Reference Range Comments O2 SATURATION (MEASURED) (BEAKER) (test htjt=5689) 59.2 % [id number] 05:33:00 Test Item Value Reference Range Comments PHOSPHORUS (BEAKER) (test sbuo=991) 4.7 mg/dL 2.3-4.7 [id number] 05:33:00 Test Item Value Reference Range Comments MAGNESIUM (BEAKER) (test yddw=226) 2.2 mg/dL 1.6-2.6 CALCIUM, [id number] 05:31:00 Test Item Value Reference Range Comments CALCIUM IONIZED (BEAKER) (test jend=795) 0.98 mmol/L 1.12-1.27 PH, BLOOD (BEAKER) (test bzio=7505) 7.39 CBC W/PLT COUNT & AUTO [id number] 05:00:00 Test Item Value Reference Range Comments WHITE BLOOD CELL COUNT (BEAKER) (test ndfp=778) 12.8 K/ L 3.5-10.5 RED BLOOD CELL COUNT (BEAKER) (test ehwv=952) 2.87 M/ L 4.63-6.08 HEMOGLOBIN (BEAKER) (test lizd=857) 9.4 GM/DL 13.7-17.5 HEMATOCRIT (BEAKER) (test gkwp=250) 28.5 % 40.1-51.0 MEAN CORPUSCULAR VOLUME (BEAKER) (test xtrl=227) 99.3 fL 79.0-92.2 MEAN CORPUSCULAR HEMOGLOBIN (BEAKER) (test 32.8 pg 25.7-32.2 wdtz=469) MEAN CORPUSCULAR HEMOGLOBIN CONC (BEAKER) (test 33.0 GM/DL 32.3-36.5 mxma=685) RED CELL DISTRIBUTION WIDTH (BEAKER) (test 14.9 % 11.6-14.4 fkgr=188) PLATELET COUNT (BEAKER) (test gmnt=407) 134 K/CU MM 150-450 MEAN PLATELET VOLUME (BEAKER) (test tddb=742) 12.5 fL 9.4-12.4 NUCLEATED RED BLOOD CELLS (BEAKER) (test 0 /100 WBC 0-0 ofth=225) NEUTROPHILS RELATIVE PERCENT (BEAKER) (test 86 % aggu=108) LYMPHOCYTES RELATIVE PERCENT (BEAKER) (test 5 % fhqt=240) MONOCYTES RELATIVE PERCENT (BEAKER) (test 7 % onjh=295) EOSINOPHILS RELATIVE PERCENT (BEAKER) (test 2 % kexz=462) BASOPHILS RELATIVE PERCENT (BEAKER) (test 0 % nvbg=590) NEUTROPHILS ABSOLUTE COUNT (BEAKER) (test 10.99 K/ L 1.78-5.38 bqmi=512) LYMPHOCYTES ABSOLUTE COUNT (BEAKER) (test 0.60 K/ L 1.32-3.57 tylg=830) MONOCYTES ABSOLUTE COUNT (BEAKER) (test 0.84 K/ L 0.30-0.82 jvrc=146) EOSINOPHILS ABSOLUTE COUNT (BEAKER) (test 0.21 K/ L 0.04-0.54 bxuv=974) BASOPHILS ABSOLUTE COUNT (BEAKER) (test 0.03 K/ L 0.01-0.08 zvsy=288) IMMATURE GRANULOCYTES-RELATIVE PERCENT (BEAKER) 1 % 0-1 (test vmbs=3684) LACTIC ACID, ARTERIAL, WHOLE [id number] 04:58:00 Test Item Value Reference Range Comments LACTATE BLOOD ARTERIAL (2) (BEAKER) (test 1.2 mmol/L 0.5-2.2 ipge=9932) Effective 09/27/2015: Units/Reference Range ChangeNew: 0.5-2.2 mmol/L Previous: 5 -20 mg/dLPOCT-GLUCOSE [id number] 04:19:00 Test Item Value Reference Range Comments POC-GLUCOSE METER (BEAKER) 136 mg/dL 70-110 TESTED AT [address] (test ovax=8835) [facility] [address] POCT-GLUCOSE [id number] 00:39:00 Test Item Value Reference Range Comments POC-GLUCOSE METER (BEAKER) 142 mg/dL 70-110 TESTED AT [address] (test vhpp=1565) [facility] [address] POCT-GLUCOSE [id number] 23:06:00 Test Item Value Reference Range Comments POC-GLUCOSE METER (BEAKER) 128 mg/dL 70-110 TESTED AT [address] (test iuud=2692) [place] [address] BASIC METABOLIC [id number] 21:24:00 Test Item Value Reference Range Comments SODIUM (BEAKER) (test 143 meq/L 136-145 rqqq=760) POTASSIUM (BEAKER) (test 4.3 meq/L 3.5-5.1 edid=297) CHLORIDE (BEAKER) (test 111 meq/L 98-107 snny=728) CO2 (BEAKER) (test 24 meq/L 22-29 ueux=859) BLOOD UREA NITROGEN 27 mg/dL 7-21 (BEAKER) (test jlzw=103) CREATININE (BEAKER) (test 2.57 mg/dL 0.57-1.25 wllu=400) GLUCOSE RANDOM (BEAKER) 125 mg/dL 70-105 (test fyvp=115) CALCIUM (BEAKER) (test 8.3 mg/dL 8.4-10.2 sxul=682) EGFR (BEAKER) (test 25 mL/min/1.73 sq m ESTIMATED GFR IS NOT shbo=4456) ACCURATE CREATININE CLEARANCE IN PREDICTING GLOMERULAR FILTRATION RATE. ESTIMATED GFR IS NOT APPLICABLE FOR DIALYSIS PATIENTS. POCT-GLUCOSE [id number] 20:14:00 Test Item Value Reference Range Comments POC-GLUCOSE METER (BEAKER) 126 mg/dL 70-110 TESTED AT [address] (test urve=4147) [place] [address] BASIC METABOLIC [id number] 18:38:00 Test Item Value Reference Range Comments SODIUM (BEAKER) (test 143 meq/L 136-145 pfkd=086) POTASSIUM (BEAKER) (test 4.3 meq/L 3.5-5.1 aaug=535) CHLORIDE (BEAKER) (test 112 meq/L 98-107 qaue=001) CO2 (BEAKER) (test 23 meq/L 22-29 qxnt=888) BLOOD UREA NITROGEN 27 mg/dL 7-21 (BEAKER) (test ibvz=782) CREATININE (BEAKER) (test 2.58 mg/dL 0.57-1.25 pvwe=405) GLUCOSE RANDOM (BEAKER) 128 mg/dL 70-105 (test fytz=958) CALCIUM (BEAKER) (test 8.2 mg/dL 8.4-10.2 mmio=235) EGFR (BEAKER) (test 24 mL/min/1.73 sq m ESTIMATED GFR IS NOT lmhb=2667) ACCURATE CREATININE CLEARANCE IN PREDICTING GLOMERULAR FILTRATION RATE. ESTIMATED GFR IS NOT APPLICABLE FOR DIALYSIS PATIENTS. [id number] 18:37:00 Test Item Value Reference Range Comments POTASSIUM (BEAKER) (test wbht=794) 4.3 meq/L 3.5-5.1 [id number] 18:37:00 Test Item Value Reference Range Comments MAGNESIUM (BEAKER) (test dldu=430) 2.3 mg/dL 1.6-2.6 POCT-GLUCOSE [id number] 18:21:00 Test Item Value Reference Range Comments POC-GLUCOSE METER (BEAKER) 135 mg/dL 70-110 TESTED AT [address] (test ukfs=8484) [place] [address] POCT-GLUCOSE [id number] 18:21:00 Test Item Value Reference Range Comments POC-GLUCOSE METER (BEAKER) 140 mg/dL 70-110 TESTED AT [address] (test frbn=7857) [place] [id number] POCT-GLUCOSE [id number] 18:21:00 Test Item Value Reference Range Comments POC-GLUCOSE METER (BEAKER) 132 mg/dL 70-110 TESTED AT [address] (test pnlu=3035) [place] [id number] CALCIUM, [id number] 18:06:00 Test Item Value Reference Range Comments CALCIUM IONIZED (BEAKER) (test fbpg=061) 1.06 mmol/L 1.12-1.27 PH, BLOOD (BEAKER) (test aysl=7543) 7.44 BLOOD GAS, [id number] 18:06:00 Test Item Value Reference Range Comments PH ARTERIAL (BEAKER) (test npil=423) 7.44 7.35-7.45 PCO2 ARTERIAL (BEAKER) (test phcu=567) 32 mmHg 35-45 PO2 ARTERIAL (BEAKER) (test kjkb=668) 99 mmHg 80-90 O2 SATURATION ARTERIAL (BEAKER) (test kitg=127) 97.7 % 96.0-97.0 HCO3 ARTERIAL (BEAKER) (test tlwr=012) 21 mmol/L 21-29 BASE EXCESS ARTERIAL (BEAKER) (test cjhm=229) -2.3 mmol/L -2.0-3.0 PATIENT TEMPERATURE (BEAKER) (test negv=7140) 37.0 C FIO2 (BEAKER) (test czhl=6623) 40.0 % LACTIC ACID, ARTERIAL, WHOLE [id number] 13:20:00 Test Item Value Reference Range Comments LACTATE BLOOD ARTERIAL (2) (BEAKER) (test 1.4 mmol/L 0.5-2.2 idgq=6012) Effective 09/27/2015: Units/Reference Range ChangeNew: 0.5-2.2 mmol/L Previous: 5 -20 mg/dLHEMOGLOBIN AND [id number] 13:01:00 Test Item Value Reference Range Comments HEMOGLOBIN (BEAKER) (test swbx=972) 9.7 GM/DL 13.7-17.5 HEMATOCRIT (BEAKER) (test yzan=255) 29.2 % 40.1-51.0 POCT-GLUCOSE [id number] 12:24:00 Test Item Value Reference Range Comments POC-GLUCOSE METER (BEAKER) 113 mg/dL 70-110 TESTED AT [address] (test gzyx=4505) [facility] [address] POCT-GLUCOSE [id number] 12:24:00 Test Item Value Reference Range Comments POC-GLUCOSE METER (BEAKER) 147 mg/dL 70-110 TESTED AT [address] (test kwez=2746) [facility] [address] POCT-GLUCOSE [id number] 12:24:00 Test Item Value Reference Range Comments POC-GLUCOSE METER (BEAKER) 160 mg/dL 70-110 TESTED AT [address] (test jhrj=2372) [facility] [address] POCT-GLUCOSE [id number] 12:24:00 Test Item Value Reference Range Comments POC-GLUCOSE METER (BEAKER) 145 mg/dL 70-110 TESTED AT [address] (test nbut=6162) [facility] [address] POCT-GLUCOSE [id number] 12:24:00 Test Item Value Reference Range Comments POC-GLUCOSE METER (BEAKER) 145 mg/dL 70-110 TESTED AT [address] (test vocu=2774) [facility] [address] POCT-GLUCOSE [id number] 12:24:00 Test Item Value Reference Range Comments POC-GLUCOSE METER (BEAKER) 159 mg/dL 70-[address] [facility] [address] [facility] (test bddp=7817) [facility] [address] POCT-GLUCOSE [id number] 12:24:00 Test Item Value Reference Range Comments POC-GLUCOSE METER (BEAKER) 170 mg/dL 70-[address] [facility] [address] [facility] (test gtkk=2738) [facility] [address] [id number] 10:59:00 Test Item Value Reference Range Comments PHOSPHORUS (BEAKER) (test jgza=019) 3.1 mg/dL 2.3-4.7 [id number] 10:59:00 Test Item Value Reference Range Comments MAGNESIUM (BEAKER) (test vxel=002) 2.3 mg/dL 1.6-2.6 BASIC METABOLIC [id number] 10:59:00 Test Item Value Reference Range Comments SODIUM (BEAKER) (test 143 meq/L 136-145 nbfo=930) POTASSIUM (BEAKER) (test 4.6 meq/L 3.5-5.1 haom=446) CHLORIDE (BEAKER) (test 112 meq/L 98-107 vwvw=622) CO2 (BEAKER) (test 20 meq/L 22-29 joxg=874) BLOOD UREA NITROGEN 23 mg/dL 7-21 (BEAKER) (test pbnx=095) CREATININE (BEAKER) (test 2.18 mg/dL 0.57-1.25 vbtu=342) GLUCOSE RANDOM (BEAKER) 147 mg/dL 70-105 (test wysc=544) CALCIUM (BEAKER) (test 8.1 mg/dL 8.4-10.2 ujqj=526) EGFR (BEAKER) (test 30 mL/min/1.73 sq m ESTIMATED GFR IS NOT klep=6175) ACCURATE CREATININE CLEARANCE IN PREDICTING GLOMERULAR FILTRATION RATE. ESTIMATED GFR IS NOT APPLICABLE FOR DIALYSIS PATIENTS. CBC W/PLT COUNT & AUTO [id number] 10:26:00 Test Item Value Reference Range Comments WHITE BLOOD CELL COUNT (BEAKER) (test iqss=560) 14.9 K/ L 3.5-10.5 RED BLOOD CELL COUNT (BEAKER) (test xxqs=460) 3.03 M/ L 4.63-6.08 HEMOGLOBIN (BEAKER) (test wpfo=226) 10.0 GM/DL 13.7-17.5 HEMATOCRIT (BEAKER) (test jffz=869) 30.9 % 40.1-51.0 MEAN CORPUSCULAR VOLUME (BEAKER) (test ahjq=515) 102.0 fL 79.0-92.2 MEAN CORPUSCULAR HEMOGLOBIN (BEAKER) (test 33.0 pg 25.7-32.2 zows=495) MEAN CORPUSCULAR HEMOGLOBIN CONC (BEAKER) (test 32.4 GM/DL 32.3-36.5 gkxw=014) RED CELL DISTRIBUTION WIDTH (BEAKER) (test 14.8 % 11.6-14.4 wtvp=600) PLATELET COUNT (BEAKER) (test priq=652) 155 K/CU MM 150-450 MEAN PLATELET VOLUME (BEAKER) (test ogqn=253) 12.6 fL 9.4-12.4 NUCLEATED RED BLOOD CELLS (BEAKER) (test 0 /100 WBC 0-0 yuad=141) NEUTROPHILS RELATIVE PERCENT (BEAKER) (test 84 % duwg=190) LYMPHOCYTES RELATIVE PERCENT (BEAKER) (test 4 % csff=536) MONOCYTES RELATIVE PERCENT (BEAKER) (test 11 % rajw=147) EOSINOPHILS RELATIVE PERCENT (BEAKER) (test 1 % cxnz=179) BASOPHILS RELATIVE PERCENT (BEAKER) (test 0 % ydxa=903) NEUTROPHILS ABSOLUTE COUNT (BEAKER) (test 12.43 K/ L 1.78-5.38 ebcm=773) LYMPHOCYTES ABSOLUTE COUNT (BEAKER) (test 0.56 K/ L 1.32-3.57 nhlm=667) MONOCYTES ABSOLUTE COUNT (BEAKER) (test 1.62 K/ L 0.30-0.82 cvrl=096) EOSINOPHILS ABSOLUTE COUNT (BEAKER) (test 0.14 K/ L 0.04-0.54 jxae=348) BASOPHILS ABSOLUTE COUNT (BEAKER) (test 0.04 K/ L 0.01-0.08 week=751) IMMATURE GRANULOCYTES-RELATIVE PERCENT (BEAKER) 1 % 0-1 (test gpqh=9044) BLOOD GAS, [id number] 09:05:00 Test Item Value Reference Range Comments PH ARTERIAL (BEAKER) (test esqz=574) 7.40 7.35-7.45 PCO2 ARTERIAL (BEAKER) (test nues=888) 35 mmHg 35-45 PO2 ARTERIAL (BEAKER) (test jqcy=378) 212 mmHg 80-90 O2 SATURATION ARTERIAL (BEAKER) (test zzok=481) 99.4 % 96.0-97.0 HCO3 ARTERIAL (BEAKER) (test svtc=698) 22 mmol/L 21-29 BASE EXCESS ARTERIAL (BEAKER) (test yrre=336) -2.7 mmol/L -2.0-3.0 PATIENT TEMPERATURE (BEAKER) (test rdid=2204) 37.0 C FIO2 (BEAKER) (test bzwu=9442) 100.0 % POCT-GLUCOSE [id number] 07:07:00 Test Item Value Reference Range Comments POC-GLUCOSE METER (BEAKER) 160 mg/dL 70-110 TESTED AT [address] (test qolc=8016) [place] [address] POCT-GLUCOSE [id number] 07:07:00 Test Item Value Reference Range Comments POC-GLUCOSE METER (BEAKER) 200 mg/dL 70-110 TESTED AT [address] (test qsut=7170) [place] [id number] POCT-GLUCOSE [id number] 07:07:00 Test Item Value Reference Range Comments POC-GLUCOSE METER (BEAKER) 213 mg/dL 70-110 TESTED AT [address] (test gwbf=4405) [place] [id number] BLOOD GAS, [id number] 01:53:00 Test Item Value Reference Range Comments PH ARTERIAL (BEAKER) (test pybe=360) 7.45 7.35-7.45 PCO2 ARTERIAL (BEAKER) (test rtva=093) 28 mmHg 35-45 PO2 ARTERIAL (BEAKER) (test gynr=440) 81 mmHg 80-90 O2 SATURATION ARTERIAL (BEAKER) (test gnxr=050) 96.8 % 96.0-97.0 HCO3 ARTERIAL (BEAKER) (test dwop=891) 19 mmol/L 21-29 BASE EXCESS ARTERIAL (BEAKER) (test jtpo=791) -4.1 mmol/L -2.0-3.0 PATIENT TEMPERATURE (BEAKER) (test izuf=5336) 36.2 C FIO2 (BEAKER) (test erfm=0209) 36.0 % RAD, CHEST, 1 VIEW, NON [id number] 01:46:00while patient is intubated or has chest tubes.Reason for exam:->S/p OHSShould this be performed at the bedside?->YesFINAL REPORT EXAMINATION: AP PORTABLE CHEST RADIOGRAPH CLINICAL INDICATION:Chest tubes IMPRESSION: Compared with 2017. The endotracheal tube and nasogastric tube have beenremoved in the interval. Support tube and catheter positions are otherwise unchanged. Cardiac silhouette is prominent as before. Mild soft tissue fullness of the mediastinum is also again noted. Opacities persist in the perihilar regions and lung bases. Although a component of atelectasis is suspected, mild superimposed edema should also be considered. An underlying pneumonia cannot be excluded. The superimposed bilateral pleural effusions are grossly stable. No evidence of a large pneumothorax. A small stable right-sided pneumothorax cannot be excluded. Signed: Daysi Torres MDReport Verified Date/Time: 07/25/2017 01:46:51 Reading Location: [address] Reading Room Electronicallysigned by: DAYSI TORRES M.D. on 07/25/2017 01:46 AMPOCT-GLUCOSE [id number] 00:23:00 Test Item Value Reference Range Comments POC-GLUCOSE METER (BEAKER) 229 mg/dL 70-110 TESTED AT [address] (test qang=1277) [place] [id number] POCT-GLUCOSE [id number] 00:23:00 Test Item Value Reference Range Comments POC-GLUCOSE METER (BEAKER) 220 mg/dL 70-110 TESTED AT [address] (test kdsx=2428) [place] [id number] POCT-GLUCOSE [id number] 22:34:00 Test Item Value Reference Range Comments POC-GLUCOSE METER (BEAKER) 247 mg/dL 70-110 TESTED AT [address] (test dadq=6066) [place] [address] POCT-GLUCOSE [id number] 22:34:00 Test Item Value Reference Range Comments POC-GLUCOSE METER (BEAKER) 254 mg/dL 70-110 TESTED AT [address] (test xdft=3534) [place] [address] BLOOD GAS, [id number] 22:08:00 Test Item Value Reference Range Comments PH ARTERIAL (BEAKER) (test aslu=284) 7.35 7.35-7.45 PCO2 ARTERIAL (BEAKER) (test hmez=203) 36 mmHg 35-45 PO2 ARTERIAL (BEAKER) (test gzvg=158) 68 mmHg 80-90 O2 SATURATION ARTERIAL (BEAKER) (test igyv=318) 92.8 % 96.0-97.0 HCO3 ARTERIAL (BEAKER) (test rhrs=330) 19 mmol/L 21-29 BASE EXCESS ARTERIAL (BEAKER) (test bdsr=597) -5.7 mmol/L -2.0-3.0 PATIENT TEMPERATURE (BEAKER) (test euzx=1340) 37.0 C FIO2 (BEAKER) (test xmez=3091) 40.0 % POTASSIUM-STAT [id number] 22:08:00 Test Item Value Reference Range Comments POTASSIUM (BEAKER) (test kvtj=862) 3.9 meq/L 3.6-5.5 [id number] 21:24:00 Test Item Value Reference Range Comments GLUCOSE RANDOM (BEAKER) (test fnzc=576) 232 mg/dL 70-105 [id number] 21:24:00 Test Item Value Reference Range Comments POTASSIUM (BEAKER) (test lfup=806) 3.8 meq/L 3.5-5.1 POCT-GLUCOSE [id number] 19:12:00 Test Item Value Reference Range Comments POC-GLUCOSE METER (BEAKER) 207 mg/dL 70-[address] [facility] [address] [facility] (test pjol=1997) [facility] [address] URINALYSIS W/ [id number] 17:20:00 Test Item Value Reference Range Comments COLOR (BEAKER) (test jbuc=031) Yellow CLARITY (BEAKER) (test sszi=006) Hazy SPECIFIC GRAVITY UA (BEAKER) (test burh=701) 1.018 1.001-1.035 PH UA (BEAKER) (test afcl=620) 5.0 5.0-8.0 PROTEIN UA (BEAKER) (test cxdy=115) 20 mg/dL Negative GLUCOSE UA (BEAKER) (test khou=009) Negative Negative KETONES UA (BEAKER) (test bnyf=167) Negative Negative BILIRUBIN UA (BEAKER) (test pqbq=996) Negative Negative BLOOD UA (BEAKER) (test ejrl=125) Moderate Negative NITRITE UA (BEAKER) (test ugup=578) Negative Negative LEUKOCYTE ESTERASE UA (BEAKER) (test btpc=957) Negative Negative UROBILINOGEN UA (BEAKER) (test lqko=100) 0.2 mg/dL 0.2-1.0 RBC UA (BEAKER) (test dczn=754) 114 /HPF WBC UA (BEAKER) (test liov=679) 17 /HPF BACTERIA (BEAKER) (test qidd=397) Few MUCUS (BEAKER) (test jlwc=3560) Occasional SQUAMOUS EPITHELIAL (BEAKER) (test awbc=397) 2 /HPF HYALINE CASTS (BEAKER) (test vniz=967) 9 /LPF SOURCE(BEAKER) (test xvfo=1200) Urine, Frances BLOOD GAS, [id number] 17:02:00 Test Item Value Reference Range Comments PH ARTERIAL (BEAKER) (test cfkj=946) 7.32 7.35-7.45 PCO2 ARTERIAL (BEAKER) (test ousp=007) 43 mmHg 35-45 PO2 ARTERIAL (BEAKER) (test nvqp=432) 175 mmHg 80-90 O2 SATURATION ARTERIAL (BEAKER) (test tpfl=641) 99.1 % 96.0-97.0 HCO3 ARTERIAL (BEAKER) (test klpt=533) 22 mmol/L 21-29 BASE EXCESS ARTERIAL (BEAKER) (test kvkl=136) -4.5 mmol/L -2.0-3.0 PATIENT TEMPERATURE (BEAKER) (test ngyq=7058) 36.7 C FIO2 (BEAKER) (test nmrw=7880) 60.0 % RAD, CHEST, 1 VIEW, NON [id number] 15:57:00Reason for exam:->s./p OHSShould this be performed at the bedside?->YesFINAL REPORT Chest one view compared to July 15, 2016 Discussion: Cardiacprominence, drainage tubes, right IJ line in place. There is pulmonary congestion and atelectasis. There may be small effusions but no pneumothorax. Signed: Taty Osborne Verified Date/Time: 07/24/2017 15:57:34 Reading Location: [facility] B1 C013W Consult Reading Room [id number] 15:25:00 Test Item Value Reference Range Comments MAGNESIUM (BEAKER) (test 2.5 mg/dL 1.6-2.6 Specimen slightly hemolyzed ckev=751) [id number] 15:25:00 Test Item Value Reference Range Comments PHOSPHORUS (BEAKER) (test 3.5 mg/dL 2.3-4.7 Specimen slightly hemolyzed rbae=987) BASIC METABOLIC [id number] 15:25:00 Test Item Value Reference Range Comments SODIUM (BEAKER) (test 142 meq/L 136-145 zxis=255) POTASSIUM (BEAKER) (test 4.0 meq/L 3.5-5.1 Specimen slightly mwze=011) hemolyzed CHLORIDE (BEAKER) (test 112 meq/L 98-107 itfh=775) CO2 (BEAKER) (test 19 meq/L 22-29 ucfj=127) BLOOD UREA NITROGEN 17 mg/dL 7-21 (BEAKER) (test lfjl=796) CREATININE (BEAKER) (test 1.35 mg/dL 0.57-1.25 Specimen slightly ukjh=261) hemolyzed GLUCOSE RANDOM (BEAKER) 158 mg/dL 70-105 (test cpph=747) CALCIUM (BEAKER) (test 8.5 mg/dL 8.4-10.2 nauh=879) EGFR (BEAKER) (test 52 mL/min/1.73 sq m ESTIMATED GFR IS NOT bwrt=9099) ACCURATE CREATININE CLEARANCE IN PREDICTING GLOMERULAR FILTRATION RATE. ESTIMATED GFR IS NOT APPLICABLE FOR DIALYSIS PATIENTS. CBC W/PLT COUNT & AUTO [id number] 15:17:00 Test Item Value Reference Range Comments WHITE BLOOD CELL COUNT (BEAKER) (test yrck=046) 17.9 K/ L 3.5-10.5 RED BLOOD CELL COUNT (BEAKER) (test poxy=173) 3.27 M/ L 4.63-6.08 HEMOGLOBIN (BEAKER) (test bcjt=171) 10.8 GM/DL 13.7-17.5 HEMATOCRIT (BEAKER) (test jarr=475) 32.9 % 40.1-51.0 MEAN CORPUSCULAR VOLUME (BEAKER) (test qzou=420) 100.6 fL 79.0-92.2 MEAN CORPUSCULAR HEMOGLOBIN (BEAKER) (test 33.0 pg 25.7-32.2 ipnt=965) MEAN CORPUSCULAR HEMOGLOBIN CONC (BEAKER) (test 32.8 GM/DL 32.3-36.5 hrit=163) RED CELL DISTRIBUTION WIDTH (BEAKER) (test 14.2 % 11.6-14.4 kwpk=907) PLATELET COUNT (BEAKER) (test tphe=865) 126 K/CU MM 150-450 MEAN PLATELET VOLUME (BEAKER) (test jwzc=033) 11.1 fL 9.4-12.4 NUCLEATED RED BLOOD CELLS (BEAKER) (test 0 /100 WBC 0-0 znvn=685) NEUTROPHILS RELATIVE PERCENT (BEAKER) (test 82 % ggcn=067) LYMPHOCYTES RELATIVE PERCENT (BEAKER) (test 12 % gyao=339) MONOCYTES RELATIVE PERCENT (BEAKER) (test 5 % hjrp=119) EOSINOPHILS RELATIVE PERCENT (BEAKER) (test 0 % sbtw=617) BASOPHILS RELATIVE PERCENT (BEAKER) (test 0 % spgh=572) NEUTROPHILS ABSOLUTE COUNT (BEAKER) (test 14.59 K/ L 1.78-5.38 gpmq=135) LYMPHOCYTES ABSOLUTE COUNT (BEAKER) (test 2.18 K/ L 1.32-3.57 qklc=954) MONOCYTES ABSOLUTE COUNT (BEAKER) (test 0.84 K/ L 0.30-0.82 pdbm=600) EOSINOPHILS ABSOLUTE COUNT (BEAKER) (test 0.04 K/ L 0.04-0.54 oonr=709) BASOPHILS ABSOLUTE COUNT (BEAKER) (test 0.02 K/ L 0.01-0.08 fprt=274) IMMATURE GRANULOCYTES-RELATIVE PERCENT (BEAKER) 1 % 0-1 (test vbho=7719) LACTIC ACID, ARTERIAL, WHOLE [id number] 15:12:00 Test Item Value Reference Range Comments LACTATE BLOOD ARTERIAL (2) 2.7 mmol/L 0.5-2.2 Specimen slightly hemolyzed (BEAKER) (test yurp=8165) Effective 09/27/2015: Units/Reference Range ChangeNew: 0.5-2.2 mmol/L Previous: 5 -20 mg/dLOXYGEN SATURATION, [id number] 15:10:00 Test Item Value Reference Range Comments O2 SATURATION (MEASURED) (BEAKER) (test ptic=9174) 78.9 % From distal port of IJ central venous catheterCALCIUM, [id number] 15:07: 00 Test Item Value Reference Range Comments CALCIUM IONIZED (BEAKER) (test ggic=862) 1.11 mmol/L 1.12-1.27 PH, BLOOD (BEAKER) (test wlcf=0403) 7.28 BLOOD GAS, [id number] 15:07:00 Test Item Value Reference Range Comments PH ARTERIAL (BEAKER) (test rtvo=567) 7.28 7.35-7.45 PCO2 ARTERIAL (BEAKER) (test gfkt=417) 45 mmHg 35-45 PO2 ARTERIAL (BEAKER) (test lwjb=550) 119 mmHg 80-90 O2 SATURATION ARTERIAL (BEAKER) (test wufw=216) 97.9 % 96.0-97.0 HCO3 ARTERIAL (BEAKER) (test iasi=398) 21 mmol/L 21-29 BASE EXCESS ARTERIAL (BEAKER) (test jckp=896) -6.2 mmol/L -2.0-3.0 PATIENT TEMPERATURE (BEAKER) (test nugg=7090) 36.3 C FIO2 (BEAKER) (test jzni=1024) 60.0 % [id number] 14:18:00 Test Item Value Reference Range Comments ACTIVATED CLOTTING TIME 114 sec TESTED AT [place] [id number] [facility] (BEAKER) (test rcnp=516) [place] [address] [id number] 14:18:00 Test Item Value Reference Range Comments ACTIVATED CLOTTING TIME 131 sec TESTED AT [place] [id number] [facility] (BEAKER) (test oveh=067) [place] [address] [id number] 14:18:00 Test Item Value Reference Range Comments ACTIVATED CLOTTING TIME 532 sec TESTED AT [place] [id number] [facility] (BEAKER) (test afvj=082) [place] [address] [id number] 14:18:00 Test Item Value Reference Range Comments ACTIVATED CLOTTING TIME 598 sec TESTED AT [place] [address] [facility] (BEAKER) (test fkgt=942) [place] [address] [id number] 14:18:00 Test Item Value Reference Range Comments ACTIVATED CLOTTING TIME [address] [facility] [address] [facility] (test jtan=585) [facility] [address] [id number] 14:18:00 Test Item Value Reference Range Comments ACTIVATED CLOTTING TIME [address] [facility] [address] [facility] (BEAKER) (test rxdl=033) [facility] [address] PLATELET [id number] 13:19:00 Test Item Value Reference Range Comments PLATELET COUNT (BEAKER) (test xfuj=215) 77 K/CU MM 150-450 CALCIUM, [id number] 13:01:00 Test Item Value Reference Range Comments CALCIUM IONIZED (BEAKER) (test rkct=331) 1.22 mmol/L 1.12-1.27 PH, BLOOD (BEAKER) (test yebj=5230) 7.32 BLOOD GAS, [id number] 13:01:00 Test Item Value Reference Range Comments PH ARTERIAL (BEAKER) (test agxv=354) 7.34 7.35-7.45 PCO2 ARTERIAL (BEAKER) (test nsxq=273) 39 mmHg 35-45 PO2 ARTERIAL (BEAKER) (test lwuo=321) 192 mmHg 80-90 O2 SATURATION ARTERIAL (BEAKER) (test degq=895) 99.3 % 96.0-97.0 HCO3 ARTERIAL (BEAKER) (test rbju=620) 20 mmol/L 21-29 BASE EXCESS ARTERIAL (BEAKER) (test qeer=198) -5.3 mmol/L -2.0-3.0 PATIENT TEMPERATURE (BEAKER) (test gkyb=7294) 35.9 C FIO2 (BEAKER) (test hsse=9711) 90.0 % GLUCOSE-STAT [id number] 13:01:00 Test Item Value Reference Range Comments GLUCOSE RANDOM (BEAKER) (test lcft=420) 164 mg/dL 70-110 HGB/HCT (H&H) - STAT [id number] 13:01:00 Test Item Value Reference Range Comments HEMOGLOBIN (BEAKER) (test jukt=965) 11.9 g/dL 13.0-16.8 HEMATOCRIT (BEAKER) (test zinz=120) 35.0 % 40.0-50.0 SODIUM NA-STAT [id number] 13:00:00 Test Item Value Reference Range Comments SODIUM (BEAKER) (test rwur=230) 136 meq/L 135-148 POTASSIUM-STAT [id number] 13:00:00 Test Item Value Reference Range Comments POTASSIUM (BEAKER) (test pnnq=426) 4.3 meq/L 3.6-5.5 PROTHROMBIN [id number] 12:44:00 Test Item Value Reference Range Comments PROTIME (BEAKER) (test mhoo=782) 22.5 seconds 11.7-14.7 INR (BEAKER) (test xcec=740) 2.0 <=5.9 RECOMMENDED COUMADIN/WARFARIN INR THERAPY RANGESSTANDARD DOSE: 2.0 - 3.0 Includes: PROPHYLAXIS forvenous thrombosis, systemic embolization; TREATMENT for venous thrombosis and/or pulmonary embolus.HIGH RISK: Target INR is 2.5-3.5 for patients with mechanical heart valves.[id number] 12:44:00 Test Item Value Reference Range Comments PARTIAL THROMBOPLASTIN TIME (BEAKER) (test 33.1 seconds 22.5-36.0 kyly=035) [id number] 12:44:00 Test Item Value Reference Range Comments FIBRINOGEN LEVEL (BEAKER) (test olch=100) 287 mg/dl 225-434 BLOOD GAS, [id number] 12:25:00 Test Item Value Reference Range Comments PH ARTERIAL (BEAKER) (test kskn=004) 7.30 7.35-7.45 PCO2 ARTERIAL (BEAKER) (test dsbz=066) 41 mmHg 35-45 PO2 ARTERIAL (BEAKER) (test cdwy=619) 175 mmHg 80-90 O2 SATURATION ARTERIAL (BEAKER) (test zpmq=370) 99.1 % 96.0-97.0 HCO3 ARTERIAL (BEAKER) (test yhoe=005) 20 mmol/L 21-29 BASE EXCESS ARTERIAL (BEAKER) (test bcux=718) -6.5 mmol/L -2.0-3.0 PATIENT TEMPERATURE (BEAKER) (test txqg=0512) 35.7 C FIO2 (BEAKER) (test dfeg=5765) 90.0 % GLUCOSE-STAT [id number] 12:25:00 Test Item Value Reference Range Comments GLUCOSE RANDOM (BEAKER) (test zqcc=012) 162 mg/dL 70-110 HGB/HCT (H&H) - STAT [id number] 12:25:00 Test Item Value Reference Range Comments HEMOGLOBIN (BEAKER) (test saos=539) 11.1 g/dL 13.0-16.8 HEMATOCRIT (BEAKER) (test wrbq=400) 33.0 % 40.0-50.0 CALCIUM, [id number] 12:25:00 Test Item Value Reference Range Comments CALCIUM IONIZED (BEAKER) (test xkbb=441) 1.08 mmol/L 1.12-1.27 PH, BLOOD (BEAKER) (test aeno=3381) 7.28 SODIUM NA-STAT [id number] 12:24:00 Test Item Value Reference Range Comments SODIUM (BEAKER) (test qnsd=812) 136 meq/L 135-148 POTASSIUM-STAT [id number] 12:24:00 Test Item Value Reference Range Comments POTASSIUM (BEAKER) (test xllt=842) 4.7 meq/L 3.6-5.5 PROTHROMBIN [id number] 11:44:00 Test Item Value Reference Range Comments PROTIME (BEAKER) (test kycn=111) 31.1 seconds 11.7-14.7 INR (BEAKER) (test taou=130) 3.0 <=5.9 RECOMMENDED COUMADIN/WARFARIN INR THERAPY RANGESSTANDARD DOSE: 2.0 - 3.0 Includes: PROPHYLAXIS forvenous thrombosis, systemic embolization; TREATMENT for venous thrombosis and/or pulmonary embolus.HIGH RISK: Target INR is 2.5-3.5 for patients with mechanical heart valves.[id number] 11:44:00 Test Item Value Reference Range Comments FIBRINOGEN LEVEL (BEAKER) (test hazo=950) 335 mg/dl 225-434 PLATELET [id number] 11:32:00 Test Item Value Reference Range Comments PLATELET COUNT (BEAKER) (test yruf=327) 109 K/CU MM 150-450 SODIUM NA-STAT [id number] 11:28:00 Test Item Value Reference Range Comments SODIUM (BEAKER) (test zgnx=856) 136 meq/L 135-148 BLOOD GAS, [id number] 11:28:00 Test Item Value Reference Range Comments PH ARTERIAL (BEAKER) (test sklg=678) 7.38 7.35-7.45 PCO2 ARTERIAL (BEAKER) (test ziwo=619) 39 mmHg 35-45 PO2 ARTERIAL (BEAKER) (test ueyh=009) 402 mmHg 80-90 O2 SATURATION ARTERIAL (BEAKER) (test ccin=281) 99.8 % 96.0-97.0 HCO3 ARTERIAL (BEAKER) (test eers=651) 23 mmol/L 21-29 BASE EXCESS ARTERIAL (BEAKER) (test avqv=700) -2.6 mmol/L -2.0-3.0 PATIENT TEMPERATURE (BEAKER) (test kaks=0600) 35.6 C FIO2 (BEAKER) (test irxs=3160) 80.0 % POTASSIUM-STAT [id number] 11:28:00 Test Item Value Reference Range Comments POTASSIUM (BEAKER) (test nqeh=016) 5.6 meq/L 3.6-5.5 GLUCOSE-STAT [id number] 11:28:00 Test Item Value Reference Range Comments GLUCOSE RANDOM (BEAKER) (test kexw=892) 168 mg/dL 70-110 HGB/HCT (H&H) - STAT [id number] 11:28:00 Test Item Value Reference Range Comments HEMOGLOBIN (BEAKER) (test hvte=257) 11.2 g/dL 13.0-16.8 HEMATOCRIT (BEAKER) (test sdsn=310) 33.0 % 40.0-50.0 POTASSIUM-STAT [id number] 11:03:00 Test Item Value Reference Range Comments POTASSIUM (BEAKER) (test jzmq=520) 4.6 meq/L 3.6-5.5 BLOOD GAS, [id number] 11:03:00 Test Item Value Reference Range Comments PH ARTERIAL (BEAKER) (test rsuk=893) 7.28 7.35-7.45 PCO2 ARTERIAL (BEAKER) (test vsbb=803) 43 mmHg 35-45 PO2 ARTERIAL (BEAKER) (test udlc=167) 332 mmHg 80-90 O2 SATURATION ARTERIAL (BEAKER) (test pdlx=999) 99.7 % 96.0-97.0 HCO3 ARTERIAL (BEAKER) (test aqoq=264) 21 mmol/L 21-29 BASE EXCESS ARTERIAL (BEAKER) (test mxuo=159) -6.7 mmol/L -2.0-3.0 PATIENT TEMPERATURE (BEAKER) (test uhfu=2763) 33.1 C FIO2 (BEAKER) (test rgce=1999) 80.0 % SODIUM NA-STAT [id number] 11:03:00 Test Item Value Reference Range Comments SODIUM (BEAKER) (test dsrj=594) 134 meq/L 135-148 GLUCOSE-STAT [id number] 11:03:00 Test Item Value Reference Range Comments GLUCOSE RANDOM (BEAKER) (test iwbi=500) 157 mg/dL 70-110 HGB/HCT (H&H) - STAT [id number] 11:03:00 Test Item Value Reference Range Comments HEMOGLOBIN (BEAKER) (test jgrm=897) 11.8 g/dL 13.0-16.8 HEMATOCRIT (BEAKER) (test xeek=963) 35.0 % 40.0-50.0 BLOOD GAS, [id number] 11:01:00 Test Item Value Reference Range Comments PH VENOUS (BEAKER) (test zeou=630) 7.27 7.32-7.42 PCO2 VENOUS (BEAKER) (test afta=647) 45 mmHg 41-51 PO2 VENOUS (BEAKER) (test qyme=751) 46 mmHg 25-40 O2 SATURATION VENOUS (BEAKER) (test orbx=842) 85.7 % 40.0-70.0 HCO3 VENOUS (BEAKER) (test nxfj=362) 22 mmol/L 21-29 BASE EXCESS VENOUS (BEAKER) (test msxa=355) -6.5 mmol/L -2.0-3.0 PATIENT TEMPERATURE (BEAKER) (test rghl=2966) 33.1 C FIO2 (BEAKER) (test icmq=1623) 80.0 % BLOOD GAS, [id number] 09:32:00 Test Item Value Reference Range Comments PH ARTERIAL (BEAKER) (test bozu=779) 7.38 7.35-7.45 PCO2 ARTERIAL (BEAKER) (test akmn=907) 36 mmHg 35-45 PO2 ARTERIAL (BEAKER) (test jliu=117) 341 mmHg 80-90 O2 SATURATION ARTERIAL (BEAKER) (test tfpb=376) 99.7 % 96.0-97.0 HCO3 ARTERIAL (BEAKER) (test dsoq=961) 21 mmol/L 21-29 BASE EXCESS ARTERIAL (BEAKER) (test peqp=046) -4.0 mmol/L -2.0-3.0 PATIENT TEMPERATURE (BEAKER) (test avhh=4431) 35.9 C FIO2 (BEAKER) (test dshz=3632) 90.0 % GLUCOSE-STAT [id number] 09:32:00 Test Item Value Reference Range Comments GLUCOSE RANDOM (BEAKER) (test elhz=174) 151 mg/dL 70-110 SODIUM NA-STAT [id number] 09:31:00 Test Item Value Reference Range Comments SODIUM (BEAKER) (test lasq=007) 136 meq/L 135-148 POTASSIUM-STAT [id number] 09:31:00 Test Item Value Reference Range Comments POTASSIUM (BEAKER) (test phan=689) 4.2 meq/L 3.6-5.5 HGB/HCT (H&H) - STAT [id number] 09:31:00 Test Item Value Reference Range Comments HEMOGLOBIN (BEAKER) (test wylp=688) 16.5 g/dL 13.0-16.8 HEMATOCRIT (BEAKER) (test tdfd=989) 49.0 % 40.0-50.0 RAD, CHEST, 2 [id number] 12:00:00Reason for Exam:->Pre-OpFINAL REPORT TECHNIQUE: Frontal and lateral chest radiographs dated . CLINICAL HISTORY: Pre op COMPARISON STUDY: None FINDINGS: Trace right pleural effusion with associated atelectasis. There is linear atelectasis in the right upper lobe. No focal consolidation. No pneumothorax. Mild cardiomegaly is suspected. No pulmonary edema. Degenerative changes are seen in the spine. No fracture. IMPRESSION: Trace right pleural effusion with associated atelectasis. Signed: Candelario Mcdaniels Verified Date/Time: 07/22/2017 12:00:46 Reading Location: [facility] Radiology Reading Room HEMOGLOBIN [id number] 11:51:00 Test Item Value Reference Range Comments HEMOGLOBIN A1C (BEAKER) (test irod=930) 7.6 % 4.3-6.1 BASIC METABOLIC [id number] 10:24:00 Test Item Value Reference Range Comments SODIUM (BEAKER) (test 139 meq/L 136-145 ecxo=006) POTASSIUM (BEAKER) (test 4.3 meq/L 3.5-5.1 rxrm=495) CHLORIDE (BEAKER) (test 110 meq/L 98-107 rauc=822) CO2 (BEAKER) (test 21 meq/L 22-29 nchg=966) BLOOD UREA NITROGEN 21 mg/dL 7-21 (BEAKER) (test jygn=130) CREATININE (BEAKER) (test 1.38 mg/dL 0.57-1.25 aknj=009) GLUCOSE RANDOM (BEAKER) 147 mg/dL 70-105 (test tghj=531) CALCIUM (BEAKER) (test 8.6 mg/dL 8.4-10.2 uoll=069) EGFR (BEAKER) (test 50 mL/min/1.73 sq m ESTIMATED GFR IS NOT cghf=9962) ACCURATE CREATININE CLEARANCE IN PREDICTING GLOMERULAR FILTRATION RATE. ESTIMATED GFR IS NOT APPLICABLE FOR DIALYSIS PATIENTS. PROTHROMBIN [id number] 10:21:00 Test Item Value Reference Range Comments PROTIME (BEAKER) (test rxqd=258) 14.9 seconds 11.7-14.7 INR (BEAKER) (test qspp=181) 1.2 <=5.9 RECOMMENDED COUMADIN/WARFARIN INR THERAPY RANGESSTANDARD DOSE: 2.0 - 3.0 Includes: PROPHYLAXIS forvenous thrombosis, systemic embolization; TREATMENT for venous thrombosis and/or pulmonary embolus.HIGH RISK: Target INR is 2.5-3.5 for patients with mechanical heart valves.CBC W/PLT COUNT & AUTO [id number] 10:11:00 Test Item Value Reference Range Comments WHITE BLOOD CELL COUNT (BEAKER) (test camz=251) 6.3 K/ L 3.5-10.5 RED BLOOD CELL COUNT (BEAKER) (test hlta=561) 4.77 M/ L 4.63-6.08 HEMOGLOBIN (BEAKER) (test jdgh=881) 15.8 GM/DL 13.7-17.5 HEMATOCRIT (BEAKER) (test iljb=150) 47.0 % 40.1-51.0 MEAN CORPUSCULAR VOLUME (BEAKER) (test cucz=062) 98.5 fL 79.0-92.2 MEAN CORPUSCULAR HEMOGLOBIN (BEAKER) (test 33.1 pg 25.7-32.2 bgji=881) MEAN CORPUSCULAR HEMOGLOBIN CONC (BEAKER) (test 33.6 GM/DL 32.3-36.5 lgfe=589) RED CELL DISTRIBUTION WIDTH (BEAKER) (test 14.3 % 11.6-14.4 zeac=703) PLATELET COUNT (BEAKER) (test eezy=296) 161 K/CU MM 150-450 MEAN PLATELET VOLUME (BEAKER) (test ajgq=873) 11.2 fL 9.4-12.4 NUCLEATED RED BLOOD CELLS (BEAKER) (test 0 /100 WBC 0-0 tjms=680) NEUTROPHILS RELATIVE PERCENT (BEAKER) (test 72 % jrjk=521) LYMPHOCYTES RELATIVE PERCENT (BEAKER) (test 18 % cwve=289) MONOCYTES RELATIVE PERCENT (BEAKER) (test 8 % ybfc=357) EOSINOPHILS RELATIVE PERCENT (BEAKER) (test 1 % xglz=319) BASOPHILS RELATIVE PERCENT (BEAKER) (test 1 % qfvm=411) NEUTROPHILS ABSOLUTE COUNT (BEAKER) (test 4.47 K/ L 1.78-5.38 bvbz=779) LYMPHOCYTES ABSOLUTE COUNT (BEAKER) (test 1.15 K/ L 1.32-3.57 obkx=748) MONOCYTES ABSOLUTE COUNT (BEAKER) (test 0.48 K/ L 0.30-0.82 sxcs=822) EOSINOPHILS ABSOLUTE COUNT (BEAKER) (test 0.07 K/ L 0.04-0.54 ahfn=792) BASOPHILS ABSOLUTE COUNT (BEAKER) (test 0.04 K/ L 0.01-0.08 gmir=813) IMMATURE GRANULOCYTES-RELATIVE PERCENT (BEAKER) 1 % 0-1 (test gmzt=6234)
[2017-12-21 22:30] LABS: Absolute Lymphocytes (CBC) 1.2 K/uL (0.7-4.9); Absolute Monocytes 0.6 K/uL (0.1-1.3); Absolute Neutrophil 7.5 K/uL (1.8-8.0); Basophils % 0.7 % (0-1.3); Eosinophils % 0.8 % (0-4.4); Hematocrit 33.7 % (39.6-49.0); Lymphocytes % 12.4 % (15.3-44.8); MCH 27.4 pg (27.0-35.0); MCV 85.2 fL (80-100); MPV 8.2 fL (7.6-11.3); Monocytes % 6.5 % (3.3-12.3); RBC Red Blood Cell Count 3.95 M/uL (4.33-5.43)
[2017-12-21 22:36] LABS: Protime INR 2.14
[2017-12-21 23:09] LABS: Potassium 4.4 mmol/L (3.5-5.1)
[2017-12-21 23:42] LABS: Urine Blood NEGATIVE (NEG); Urine Glucose NEGATIVE (NEG); Urine Protein 2+ (NEG); Urine Specific Gravity >1.030 (1.005-1.030)
[2017-12-21] MEDS ORDERED: FUROSEMIDE 20 MG/ 2ML VIAL ONE (23:50)
--- NOTE | 2017-12-22 02:50 | ER ---
Nurse's Notes [facility] Name: Hudson Pacheco Age: 72 yrs Sex: Male : 1945 Arrival Date: 12/21/2017 Time: 22:06 Bed 18 Private MD: Diagnosis: Heart failure;Dyspnea Presentation: 12/21 22:07 Presenting complaint: EMS states: Shortness of breath since this AM, worse with lp1 exertion; States some chest pain; CABG done in July; O2 of 91% on RA, 97% on 4L NC. Transition of care: patient was not received from another setting of care. Onset of symptoms was December 21, 2017. Risk Assessment: Do you want to hurt yourself or someone else? Patient reports no desire to harm self or others. Initial Sepsis Screen: Does the patient meet any 2 criteria? No. Patient's initial sepsis screen is negative. Does the patient have a suspected source of infection? No. Patient's initial sepsis screen is negative. Care prior to arrival: IV initiated. 20 GA, in the right wrist, Glucose check: 152 Oxygen administered. via nasal cannula. 22:07 Method Of Arrival: EMS: [facility] lp1 22:07 Acuity: ESTELLE 2 lp1 Triage Assessment: 22:10 General: Appears in no apparent distress. uncomfortable, obese. Respiratory: Onset: The bs1 symptoms/episode began/occurred gradually, the patient has moderate shortness of breath. 22:10 Respiratory: Reports shortness of breath at rest on exertion Airway is patent. bs1 Historical: - Allergies: 22:19 No Known Allergies; lp1 - Home Meds: 22:19 Centrum Silver oral oral daily [Active]; pantoprazole 40 mg oral TbEC 1 tab once daily lp1 [Active]; Xarelto 20 mg oral tab 1 tab once daily [Active]; allopurinol 100 mg Oral tab 1 tab once daily [Active]; acetaminophen-codeine 300-30 mg Oral tab twice a day for Pain [Active]; amiodarone 200 mg Oral tab 1 tab once daily [Active]; atorvastatin 40 mg oral tab 1 tab once daily [Active]; escitalopram oxalate 10 mg oral tab 1 tab once daily [Active]; metoprolol succinate 50 mg oral Tb24 [Active]; - PMHx: 22:19 "fluid on the lungs"; Atrial Fib; Diabetes - NIDDM; Gout; Hyperlipidemia; CVA; lp1 - PSHx: 22:19 Colostomy; CABG; lp1 22:23 wound surgery; back surgery; lp1 - Immunization history:: Adult Immunizations up to date. - Social history:: Smoking status: Patient/guardian denies using tobacco. - Ebola Screening: : No symptoms or risks identified at this time. Screenin/30 01:17 Abuse screen: Denies threats or abuse. Denies injuries from another. Nutritional bs1 screening: No deficits noted. Tuberculosis screening: No symptoms or risk factors identified. Fall Risk None identified. Assessment: 12/21 22:27 General: Appears in no apparent distress. uncomfortable, obese, Behavior is calm, bs1 cooperative, appropriate for age. Pain: Denies pain. Neuro: Level of Consciousness is awake, alert, obeys commands, Oriented to person, place, time. Cardiovascular: Reports shortness of breath, Denies chest pain, Heart tones S1 S2 present Capillary refill < 3 seconds Patient's skin is warm and dry. Rhythm is atrial fibrillation. Respiratory: Reports shortness of breath at rest on exertion Airway is patent Trachea midline Respiratory effort is labored, Respiratory pattern is regular, tachypnea Breath sounds are diminished bilaterally. Respiratory: Reports patient on 3L NC on arrival 100% on room air. Decreased oxygen to 2L NC. GI: Abdomen is round distended, Colostomy site is clean and dry. is intact. Bowel sounds present X 4 quads. patient reported abdominal pain prior to arrival. Denies pain at this time. : No signs and/or symptoms were reported regarding the genitourinary system. EENT: No signs and/or symptoms were reported regarding the EENT system. Derm: Skin is dusky, stage 4 pressure ulcer to left buttock, wound vac in place from previous facility, intact. Musculoskeletal: Circulation, motion, and sensation intact. 23:30 Reassessment: Patient appears in no apparent distress at this time. Patient and/or bs1 family updated on plan of care and expected duration. Pain level reassessed. Patient is alert, oriented x 3, equal unlabored respirations, skin warm/dry/pink. Pending report of CT. 12/22 00:00 Reassessment: No changes from previously documented assessment. Patient and/or family bs1 updated on plan of care and expected duration. Pain level reassessed. Patient is alert, oriented x 3, equal unlabored respirations, skin warm/dry/pink. 01:30 Reassessment: Repositioned patient on left side with pillow. Patient voiding well after bs1 lasix given IV. 02:15 Reassessment: Patient appears in no apparent distress at this time. Patient and/or bs1 family updated on plan of care and expected duration. Pain level reassessed. Patient is alert, oriented x 3, equal unlabored respirations, skin warm/dry/pink. patient resting, family at bedside, informed patient and family of POC/pending admission to hospital. 03:15 Reassessment: Patient appears in no apparent distress at this time. Patient and/or bs1 family updated on plan of care and expected duration. Pain level reassessed. Patient is alert, oriented x 3, equal unlabored respirations, skin warm/dry/pink. Pending room assignment. Patient denies pain at this time. Vital Signs: 12/21 22:10 BP 132 / 66; Pulse 75; Resp 22; Temp 97.8(O); Pulse Ox 98% on 2 lpm NC; lp1 22:23 Weight 111.58 kg; Height 6 ft. 0 in. (182.88 cm); lp1 23:10 BP 95 / 77; Pulse 72; Resp 18; Pulse Ox 95% on 2 lpm NC; bs1 12/22 00:10 BP 110 / 48; Pulse 61; Resp 20 S; Pulse Ox 99% on 2 lpm NC; bs1 01:10 BP 105 / 75; Pulse 70; Resp 17; Pulse Ox 97% on 2 lpm NC; bs1 02:10 BP 102 / 53; Pulse 88; Resp 17 S; Pulse Ox 99% on 2 lpm NC; bs1 03:10 BP 118 / 83; Pulse 81; Resp 16 S; Pulse Ox 99% on 2 lpm NC; bs1 04:10 BP 106 / 76; Pulse 80; Resp 16; Temp 97.9(O); Pulse Ox 98% on 2 lpm NC; bs1 12/21 22:23 Body Mass Index 33.36 (111.58 kg, 182.88 cm) lp1 ED Course: 12/21 22:06 Patient arrived in ED. lp1 22:09 Triage completed. lp1 22:09 Arm band placed on left wrist. lp1 22:10 Everett Matias MD is Attending Physician. gs 22:10 Patient has correct armband on for positive identification. Bed in low position. Call bs1 light in reach. Side rails up X 1. 22:10 nib inspector on. Pulse ox on. NIBP on. bs1 22:10 Maintain EMS IV. Dressing intact. Good blood return noted. Site clean \\T\\ dry. Gauge \\T\\ bs 1 site: 20G right wrist/forearm area. 22:26 Priscila Proctor, RN is Primary Nurse. bs1 22:35 XRAY Chest (1 view) In Process Unspecified. EDMS 22:58 Notified ED physician of a critical lab result(s). d dimer 1437. 23:57 CT Chest Wo Con In Process Unspecified. EDMS 23:[address] via stretcher. kw1 12/22 02:49 Dylon Omer MD is Hospitalizing Provider. gs 03:27 No provider procedures requiring assistance completed. bs1 04:14 Patient admitted, IV remains in place. intact. bs1 Administered Medications: 12/21 23:59 Drug: Lasix 40 mg Route: IVP; Site: right forearm; bs1 12/22 04:15 Follow up: Response: No adverse reaction bs1 Outcome: 02:49 Decision to Hospitalize by Provider. gs 04:13 Admitted to Tele accompanied by tech, via stretcher, room 429, with oxygen, with chart, bs1 Report called to [facility] 04:13 Condition: stable 04:13 Instructed on the need for admit. 04:14 Patient left the ED. bs1 Signatures: Dispatcher [employer] EDMS Gala Rogers, RN ZO Lena Downey, ZO RN lp1 Everett Matias MD MD RojelioMeagan kw1 Priscila Proctor, RN RN bs1 Corrections: (The following items were deleted from the chart) 12/21 22:23 22:07 Care prior to arrival: IV initiated. 20 GA, in the right wrist, Oxygen lp1 administered. via nasal cannula, lp1 12/22 03:53 01:30 Reassessment: Repositioned patient on left side with pillow bs1 bs1
--- NOTE | 2017-12-22 02:50 | EDPHYS ---
Physician Documentation [facility] Name: Hudson Pacheco Age: 72 yrs Sex: Male : 1945 Arrival Date: 12/21/2017 Time: 22:06 Bed 18 Private MD: ED Physician Everett Matias HPI: 12/22 02:44 This 72 yrs old Male presents to ER via EMS with complaints of Shortness Of gs Breath. 02:44 The patient has shortness of breath at rest. Onset: The symptoms/episode began/occurred gs acutely, just prior to arrival. Duration: The symptoms are continuous, 1 hr. The patient's shortness of breath is aggravated by nothing, is alleviated by nothing. Associated signs and symptoms: Pertinent positives: chest pain. Severity of symptoms: At their worst the symptoms were moderate in the emergency department the symptoms have improved markedly, no pain, mild sob. The patient has experienced similar episodes in the past, a few times. Historical: - Allergies: 12/21 22:19 No Known Allergies; lp1 - Home Meds: 22:19 Centrum Silver oral oral daily [Active]; pantoprazole 40 mg oral TbEC 1 tab once daily lp1 [Active]; Xarelto 20 mg oral tab 1 tab once daily [Active]; allopurinol 100 mg Oral tab 1 tab once daily [Active]; acetaminophen-codeine 300-30 mg Oral tab twice a day for Pain [Active]; amiodarone 200 mg Oral tab 1 tab once daily [Active]; atorvastatin 40 mg oral tab 1 tab once daily [Active]; escitalopram oxalate 10 mg oral tab 1 tab once daily [Active]; metoprolol succinate 50 mg oral Tb24 [Active]; - PMHx: 22:19 "fluid on the lungs"; Atrial Fib; Diabetes - NIDDM; Gout; Hyperlipidemia; CVA; lp1 - PSHx: 22:19 Colostomy; CABG; lp1 22:23 wound surgery; back surgery; lp1 - Immunization history:: Adult Immunizations up to date. - Social history:: Smoking status: Patient/guardian denies using tobacco. - Ebola Screening: : No symptoms or risks identified at this time. ROS: 12/22 02:44 All other systems are negative. gs Exam: 02:44 Head/Face: Normocephalic, atraumatic. Eyes: Pupils equal round and reactive to light, gs extra-ocular motions intact. Lids and lashes normal. Conjunctiva and sclera are non-icteric and not injected. Cornea within normal limits. Periorbital areas with no swelling, redness, or edema. ENT: Nares patent. No nasal discharge, no septal abnormalities noted. Tympanic membranes are normal and external auditory canals are clear. Oropharynx with no redness, swelling, or masses, exudates, or evidence of obstruction, uvula midline. Mucous membranes moist. Neck: Trachea midline, no thyromegaly or masses palpated, and no cervical lymphadenopathy. Supple, full range of motion without nuchal rigidity, or vertebral point tenderness. No Meningismus. Chest/axilla: Normal chest wall appearance and motion. Nontender with no deformity. No lesions are appreciated. 02:44 Abdomen/GI: Soft, non-tender, with normal bowel sounds. No distension or tympany. No guarding or rebound. No evidence of tenderness throughout. Back: No spinal tenderness. No costovertebral tenderness. Full range of motion. 02:44 Constitutional: The patient appears alert, awake. 02:44 Cardiovascular: Rate: bradycardic, Rhythm: irregular, Pulses: no pulse deficits are appreciated, Edema: 2+ edema to level of left ankle and right ankle. 02:44 Cardiovascular: Heart sounds: murmur, systolic. 02:44 ECG was reviewed by the Attending Physician. 02:44 Respiratory: mild respiratory distress is noted, Respirations: tachypnea, that is mild, Breath sounds: rales, that are mild, are located in both bases. 02:44 Musculoskeletal/extremity: Circulation is intact in all extremities. 02:44 Skin: venous stasis changes. 02:44 Neuro: Cranial nerves: grossly normal, Motor: moves all fours, Sensation: is normal. 02:51 Abdomen/GI: colostomy noted no bleeding. gs 02:51 Skin: Wound recheck: sacral wound and wound vac. Vital Signs: 12/21 22:10 BP 132 / 66; Pulse 75; Resp 22; Temp 97.8(O); Pulse Ox 98% on 2 lpm NC; lp1 22:23 Weight 111.58 kg; Height 6 ft. 0 in. (182.88 cm); lp1 23:10 BP 95 / 77; Pulse 72; Resp 18; Pulse Ox 95% on 2 lpm NC; bs1 12/22 00:10 BP 110 / 48; Pulse 61; Resp 20 S; Pulse Ox 99% on 2 lpm NC; bs1 01:10 BP 105 / 75; Pulse 70; Resp 17; Pulse Ox 97% on 2 lpm NC; bs1 02:10 BP 102 / 53; Pulse 88; Resp 17 S; Pulse Ox 99% on 2 lpm NC; bs1 03:10 BP 118 / 83; Pulse 81; Resp 16 S; Pulse Ox 99% on 2 lpm NC; bs1 04:10 BP 106 / 76; Pulse 80; Resp 16; Temp 97.9(O); Pulse Ox 98% on 2 lpm NC; bs1 12/21 22:23 Body Mass Index 33.36 (111.58 kg, 182.88 cm) lp1 MDM: 12/21 22:10 Patient medically screened. 12/22 02:44 Differential diagnosis: CHF exacerbation, Chronic Obstructive Pulmonary Disease gs Myocardial Infarction pneumonia. Data reviewed: vital signs. ED course: discussed with dr sheffield, pt on xaralto says no vq scan necessary, as anticoagulated. will admit serial tropo and lasix. 12/21 22:10 Order name: Basic Metabolic Panel; Complete Time: 23:11 12/21 22:10 Order name: CBC with Diff; Complete Time: 23:11 12/21 22:10 Order name: Magnesium; Complete Time: 23:11 12/21 22:10 Order name: NT PRO-BNP; Complete Time: 23:11 12/21 22:10 Order name: PT-INR; Complete Time: 23:11 12/21 22:10 Order name: Troponin (emerg Dept Use Only); Complete Time: 23:11 12/21 22:10 Order name: D-Dimer; Complete Time: 23:11 12/21 23:36 Order name: Urine Dipstick--Ancillary (enter results); Complete Time: 00:55 ms 12/22 02:56 Order name: Basic Metabolic Panel EDMS 12/22 02:56 Order name: Basic Metabolic Panel EDMS 12/22 02:56 Order name: CBC with Automated Diff EDMS 12/22 02:56 Order name: CBC with Automated Diff EDMS 12/22 02:56 Order name: NT PRO-BNP EDMS 12/22 02:56 Order name: NT PRO-BNP [facility] 12/21 22:10 Order name: XRAY Chest (1 view) 12/21 22:10 Order name: EKG; Complete Time: 22:11 12/21 22:10 Order name: Cardiac monitoring; Complete Time: 22:20 12/21 22:10 Order name: EKG - Nurse/Tech; Complete Time: 22:20 12/21 22:10 Order name: IV Saline Lock; Complete Time: 22:20 12/21 22:10 Order name: Labs collected and sent; Complete Time: 22:20 12/21 22:10 Order name: O2 Per Protocol; Complete Time: 22:20 12/21 22:10 Order name: O2 Sat Monitoring; Complete Time: 22:20 12/21 22:10 Order name: Urine Dipstick-Ancillary (obtain specimen); Complete Time: 23:28 12/21 23:15 Order name: CT Chest Wo Con 12/22 02:56 Order name: CONS Physician Consult [facility] 12/22 02:56 Order name: Low Sodium [facility] 12/22 02:56 Order name: Troponin I [facility] 12/22 02:56 Order name: Troponin I [facility] 12/22 02:56 Order name: Troponin I [facility] EC:44 Rate is 66 beats/min. Rhythm is irregularly irregular. QRS interval is normal. QT gs interval is normal. T waves are Flattened. Clinical impression: Abnormal EKG without significant change and Atrial Fibrillation. Interpreted by me. Administered Medications: 12/21 23:59 Drug: Lasix 40 mg Route: IVP; Site: right forearm; bs1 12/22 04:15 Follow up: Response: No adverse reaction bs1 Disposition: 02:44 Critical Care:. gs Disposition: 12/22/17 02:49 Hospitalization ordered by Dylon Oemr for Observation. Preliminary diagnosis are Heart failure, Dyspnea. - Bed requested for Telemetry/MedSurg (observation). - Status is Observation. bs1 - Condition is Stable. - Problem is new. - Symptoms have improved. UTI on Admission? No Critical care time excluding procedures: 02:44 Critical care time: Bedside Care: 10 minutes, Consultation: 10 minutes, Family gs Intervention: 10 minutes. Total time: 30 minutes Signatures: Dispatcher [employer] EDMS Meagan Booth RN RN kl Lena Downey RN RN lp1 Everett Matias MD MD Priscila Proctor RN RN bs1 Corrections: (The following items were deleted from the chart) 03:43 02:49 Hospitalization Ordered by Dylon Omer MD for Observation. Preliminary diagnosis kl is Heart failure; Dyspnea. Bed requested for Telemetry/MedSurg (observation). Status is Observation. Condition is Stable. Problem is new. Symptoms have improved. UTI on Admission? No. 04:14 03:43 12/22/2017 02:49 Hospitalization Ordered by Dylon Omer MD for Observation. bs1 Preliminary diagnosis is Heart failure; Dyspnea. Bed requested for Telemetry/MedSurg (observation). Status is Observation. Condition is Stable. Problem is new. Symptoms have improved. UTI on Admission? No. kl
[2017-12-22] MEDS ORDERED: ALBUTEROL 2.5 MG/3 ML NEB SOL NEB PRN (02:54)
[2017-12-22] MEDS ORDERED: ACETAMINOPHEN 500 MG TAB PO PRN (02:54)
[2017-12-22] MEDS ORDERED: IPRATROPIUM BROM 0.5MG/2.5ML NEB PRN (02:54)
[2017-12-22 05:32] VITALS: BMI 34.2
--- NOTE | 2017-12-22 06:42 | EKG ---
Test Date: 2017-12-21 Test Time: 22:12:22 Tax Commissioner: BEATRICE MEASUREMENT RESULTS: Intervals: Rate: 66 VA: QRSD: 76 QT: 444 QTc: 465 [place]: P: VA: QRS: 49 T: 31 INTERPRETIVE STATEMENTS: Atrial fibrillation Low voltage QRS Cannot rule out Anteroseptal infarct, age undetermined Abnormal ECG Compared to ECG 01/20/2017 17:16:10 Low QRS voltage now present Myocardial infarct finding still present Electronically Signed On 12-22-17 06:41:41 CDT by Avery Alfred
[2017-12-22 07:04] LABS: Urine Appearance CLEAR; Urine Bilirubin NEGATIVE (NEG); Urine Blood NEGATIVE (NEG); Urine Color YELLOW; Urine Glucose NEGATIVE (NEG); Urine Protein NEGATIVE (NEG); Urine Urobilinogen 0.2 mg/dL (0.2-1.0); Urine pH 6.5 (5.0-7.0)
[2017-12-22 07:18] LABS: Urine Microscopic Reflex NO UMIC
--- NOTE | 2017-12-22 09:00 | RAD REPORT ---
EXAM DESCRIPTION: CT - Thorax Wo Con - 12/22/2017 5:58 am CLINICAL HISTORY: Chest pain, shortness of breath, dyspnea A preliminary written report was provided at the time of the study, and the report was reviewed prio r to final dictation. COMPARISON: Portable chest December 21, CT chest February 2014 TECHNIQUE: Axial 5 mm thick images of the chest were obtained without IV contrast. All CT scans are performed using dose optimization technique as appropriate and may include automated exposure control or mA/KV adjustment according to patient size. FINDINGS: No lung parenchymal mass or consolidation identifiable. Lung parenchymal markings are prom inent, more so in each base. There are some components of atelectasis present. Granulomata noted. Ple ural thickening changes are present in the mid right lung field. No pneumothorax is seen. Minimal la nena ateral pleural effusions are present. No pneumothorax. Nonspecific mediastinal lymph nodes are present. These are more numerous than seen in 2014 but are no t clearly pathologic. Aortic calcification pattern and coronary artery calcification pattern stable. Vascular assessment is limited in the absence of IV contrast. Sternotomy wires are in place. No acute sternum finding. Mild cardiomegaly without pericardial effusion. No chest wall mass or abnormal axillary lymphadenopathy. IMPRESSION: Above detailed chest findings are suspicious for a mild failure or volume overload. No focal consolidation. Pneumonia is unlikely.
--- NOTE | 2017-12-22 09:28 | RAD REPORT ---
EXAM DESCRIPTION: RAD - Chest Single View - 12/21/2017 10:35 pm CLINICAL HISTORY: Shortness of breath COMPARISON: December 2016 TECHNIQUE: AP portable chest image was obtained 2228 hours . FINDINGS: Lung volumes are relatively low. Bilateral pleural effusions are present appearing slightl y larger on the left. Lung parenchymal changes are in part due to shallow inspiration and body habitu s. Interstitial edema or infiltrate certainly possible as well. CABG surgical changes noted, new from the comparison. Cardiomegaly. No pneumothorax. No gross bony abnormality seen. No acute aortic findi ngs suspected. IMPRESSION: Mild to moderate CHF/ volume overload pattern.
[2017-12-22] MEDS: FUROSEMIDE 20 MG/ 2ML VIAL IV SCH ×2 (09:56→17:51)
[2017-12-22] MEDS ORDERED: TRAMADOL HCL 50 MG TAB PO PRN (10:40)
--- NOTE | 2017-12-22 12:25 | P.HP ---
Certification for Inpatient Patient admitted to: Observation With expected LOS: <2 Midnights Practitioner: I am a practitioner with admitting privileges, knowledge of patient current condition, hospital course, and medical plan of care. Services: Services provided to patient in accordance with Admission requirements found in Title 42 Section 412.3 of the Code of Federal Regulations Patient History Date of Service: 12/22/17 Reason for admission: DYSPNEA History of Present Illness: PATIENT CAME IN LAST NIGHT WITH DYSPNEA. 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 HE HAS NO CHEST PAIN HE WOKE UP WITH NAUSEA AND DYSPNEA. HE HAS NO CHEST PAIN. HE HAS HAD A LONG COURSE OF HOPSPITAL STAY FOR MONTHS AFTER COMPLICATIONS OF CAD, CABG, LATER BED SORE. Allergies No Known Drug Allergies Allergy (Verified 07/17/17 15:39) Unknown No Known Allergies Allergy (Uncoded 12/22/17 04:18) Unknown Home Medications: Metoprolol Succinate [Toprol Xl*] 50 mg PO DAILY 06/08/14 Simvastatin 40 mg PO DAILY 06/08/14 traMADol HCL [Ultram] 50 mg PO Q6H PRN #50 tab 07/04/16 Allopurinol 100 mg PO DAILY 12/22/17 Amiodarone HCl [Cordarone Tab] 200 mg PO DAILY 12/22/17 Ascorbic Acid [Vitamin C] 500 mg PO BID 12/22/17 Escitalopram Oxalate 10 mg PO DAILY 12/22/17 Magnesium Oxide [Magnesium] 400 mg PO BID 12/22/17 Pantoprazole [Protonix Tab] 40 mg PO DAILY 12/22/17 Rivaroxaban [Xarelto*] 20 mg PO BEDTIME 12/22/17 Zinc Sulfate [Zinc Sulfate*] 1 cap PO DAILY 12/22/17 - Past Medical/Surgical History Has patient received pneumonia vaccine in the past: Yes Diabetic: No -: Prior elboW pain -: LYMPHEDEMA in bilateral legs, with right leg worse -: GOUT -: HYPERTENSION -: HIGH CHOLESTEROL -: OBESITY -: Afib -: PR -: sebaceous cyst July 2012 -: two back sx 1969 & 1981 -: bladder sx 2006 - Family History Father -: Heart disease, Diabetes Mother -: Cancer - Social History Smoking Status: Former smoker Alcohol use: No CD- Drugs: No Caffeine use: No Place of Residence: Home Review of Systems 10-point ROS is otherwise unremarkable Cardiovascular: Orthopnea, Paroxysmal Noc. Dyspnea Physical Examination - Vital Signs Temperature: 97.3 F Blood Pressure: 132/61 Pulse: 68 Respirations: 18 Pulse Ox (%): 96 - Physical Exam General: Alert, Moderate distress, Obese HEENT: Atraumatic, PERRLA, Mucous membr. moist/pink, EOMI, Sclerae nonicteric Neck: Supple, 2+ carotid pulse no bruit, No LAD, Without JVD or thyroid abnormality Respiratory: Diminished, Other Cardiovascular: Regular rate/rhythm, Normal S1 S2 Gastrointestinal: Normal bowel sounds, No tenderness Musculoskeletal: No tenderness Integumentary: No rashes Neurological: Normal gait, Normal speech, Normal strength at 5/5 x4 extr, Normal tone, Normal affect Lymphatics: No axilla or inguinal lymphadenopathy - Studies Laboratory Data (last 24 hrs) 12/21/17 22:15: PT 25.4 H, INR 2.14 12/21/17 22:15: WBC 9.4, Hgb 10.8 L, Hct 33.7 L, Plt Count 394 12/21/17 22:15: Sodium 140, Potassium 4.4, BUN 19 H, Creatinine 1.50 H, Glucose 152 H, Magnesium 2.0 Assessment and Plan - Problems (Diagnosis) (1) Stage 4 decubitus ulcer Current Visit: Yes Status: Chronic Plan: OFF LOAD KCI PUMP. BACTRIM GIVEN FROM [facility] , CONTINUE. Qualifiers: Pressure injury location: sacral region Qualified Code(s): L89.154 - Pressure ulcer of sacral region, stage 4 (2) Dyspnea Current Visit: Yes Status: Chronic Plan: LASIX IV BID 20 MG. DAILY LAB FOR NOW. DC IN AM. (3) Heart failure Current Visit: Yes Status: Acute Plan: ABOVE DR MAURICIO CONSULTED. Qualifiers: Heart failure type: diastolic (4) Atrial fibrillation Onset Date: 03/04/14 Current Visit: No Status: Chronic Plan: RESUME MEDS XARELTO PO. Qualifiers: Atrial fibrillation type: chronic Qualified Code(s): I48.2 - Chronic atrial fibrillation - Advance Directives Does patient have a Living Will: No Does patient have a Durable POA for Healthcare: No
--- NOTE | 2017-12-22 12:34 | CON ---
History Of Present Illness: Mr. Pacheco is a 72-year-old. He came to the hospital because of severe dyspnea. Mr. Pacheco has gone through coronary artery bypass surgery in June and has not done w ell. Since then, he has had numerous problems, namely wound infections. He has a huge sacral decubi tus wound. He had to have debridement of his sternal wound. He has gotten out of rehab about a tirnity h ago, but spent 2 weeks back in the hospital at [facility] where he had his bypass surgery. Present ly, he is at home. He gets home health. He walks. When he walks a distance, he starts to get short of breath. Yesterday, it was worse than usual and his family brought him to the emergency room. Si nce he has been here, he has been in atrial fib. He is in chronic atrial fib. His troponins have be en normal. N-terminal proBNP is elevated. BUN, creatinine, and blood sugars are normal. Medications: His outpatient medications have included Lexapro, metoprolol, simvastatin, magnesium, a llopurinol, Protonix, amiodarone, ascorbic acid, and Xarelto. Physical Examination: Vital Signs: 6 feet tall, 252 pounds. Lungs: Clear. Heart: Does not reveal gallop. It is irregular as we expect. Abdomen: Obese. Sternal wound has healed. He has a colostomy site now, but does not appear to be h aving a problem. Extremities: Show trace edema. Those wounds are good. He has a huge sacral decubitus ulcer that is covered. I did not examine, it was just recently dressed. He needs to stay on amiodarone, rivaroxaban, had doses of Lasix, and his ejection fraction is really low like I suspect it maybe. He should be on Entresto. We will do an echocardiogram and make sure he gets daily doses of loop diuret ics. MAGY/JAIMEL Voice ID: [id number] Report ID: [id number]
--- NOTE | 2017-12-22 14:42 | ECHO ---
HEIGHT: 6 ft 0 in WEIGHT: 252 lb 14.4 oz DATE OF STUDY: 12/22/[address]: Avery Alfred MD 2-DIMENSIONAL: YES M.MODE: YES DOPPLER: YES COLOR FLOW: YES TDS: NO PORTABLE: NO DEFINITY: NO BUBBLE STUDY: NO DIAGNOSIS: CONGESTIVE HEART FAILURE/CORONARY ARTERY DISEASE CARDIAC HISTORY: CATHERIZATION: YES SURGERY: YES PROSTHETIC VALVE: NO PACEMAKER: NO MEASUREMENTS (cm) DIASTOLIC (NORMALS) SYSTOLIC (NORMALS) IVSd 1.3 (0.6-1.2) LA Diam 4.3 (1.9-4.0) LVEF 53% LVIDd 5.2 (3.5-5.7) LVIDs 3.8 (2.0-3.5) %FS 27% LVPWd 1.4 (0.6-1.2) Ao Diam 3.7 (2.0-3.7) 2 DIMENSIONAL ASSESSMENT: RIGHT ATRIUM: DILATED LEFT ATRIUM: DILATED RIGHT VENTRICLE: NORMAL LEFT VENTRICLE: LEFT VENTRICULAR HYPERTROPHY TRICUSPID VALVE: NORMAL MITRAL VALVE: NORMAL PULMONIC VALVE: NORMAL AORTIC VALVE: MILD SCLEROSIS PERICARDIAL EFFUSION: NONE AORTIC ROOT: NORMAL LEFT VENTRICULAR WALL MOTION: PARADOXICAL SEPTAL MOTION OTHERWISE NORMAL. DOPPLER/COLOR FLOW: MILD MITRAL AND TRICUSPID REGURGITATION. NORMAL RIGHT VENTRICULAR SYSTOLIC PRESSURE. COMMENTS: NORMAL LEFT VENTRICULAR EJECTION FRACTION. DILATED LEFT AND RIGHT ATRIUM. LEFT VENTRICULAR HYPERTROPHY. MILD AORTIC SCLEROSIS WITH NO AORTIC STENOSIS OR AORTIC REGURGITATION. MILD MITRAL AND TRICUSPID REGURGITATION. NORMAL RIGHT VENTRICULAR SYSTOLIC PRESSURE. ATRIAL FIBRILLATION. TECHNOLOGIST: RAJ HANEY
[2017-12-22] MEDS: PANTOPRAZOLE 40MG TABLET PO SCH (19:03)
[2017-12-22] MEDS: ALLOPURINOL 100 MG TAB PO SCH (19:03)
[2017-12-22] MEDS: ESCITALOPRAM 20 MG TAB PO SCH (19:04)
[2017-12-22] MEDS: METOPROLOL XL 50 MG TAB PO SCH (19:04)
[2017-12-22] MEDS ORDERED: RIVAROXABAN 20 MG TABLET PO SCH (21:00)
[2017-12-22] MEDS ORDERED: ATORVASTATIN 20 MG TAB PO SCH (21:00)
[2017-12-22] MEDS: MAGNESIUM OXIDE 400 MG TAB PO SCH (21:21)
[2017-12-22] MEDS: SMZ./TMP. 800/160 MG TABLET PO SCH (21:21)
[2017-12-22] MEDS: ASCORBIC ACID 500 MG TABLET PO SCH (21:21)
[2017-12-23 05:09] LABS: Absolute Lymphocytes (CBC) 1.2 K/uL (0.7-4.9); Absolute Monocytes 0.6 K/uL (0.1-1.3); Absolute Neutrophil 3.9 K/uL (1.8-8.0); Basophils % 0.8 % (0-1.3); Eosinophils % 2.8 % (0-4.4); Hematocrit 31.1 % (39.6-49.0); Lymphocytes % 20.6 % (15.3-44.8); MCH 27.8 pg (27.0-35.0); MCV 84.8 fL (80-100); MPV 8.2 fL (7.6-11.3); Monocytes % 9.7 % (3.3-12.3); RBC Red Blood Cell Count 3.67 M/uL (4.33-5.43)
[2017-12-23 05:24] LABS: Potassium 4.1 mmol/L (3.5-5.1)
[2017-12-23] MEDS ORDERED: ESCITALOPRAM 20 MG TAB PO SCH (09:00)
[2017-12-23] MEDS ORDERED: AMIODARONE HCL 200 MG TAB PO SCH (09:00)
[2017-12-23] MEDS ORDERED: ZINC SULFATE 220 MG CAP PO SCH (09:00)
[2017-12-23] MEDS: METOPROLOL XL 50 MG TAB PO SCH (09:15)
[2017-12-23] MEDS: ESCITALOPRAM 20 MG TAB PO SCH (09:16)
[2017-12-23] MEDS: ASCORBIC ACID 500 MG TABLET PO SCH (09:16)
[2017-12-23] MEDS: MAGNESIUM OXIDE 400 MG TAB PO SCH (09:16)
[2017-12-23] MEDS: PANTOPRAZOLE 40MG TABLET PO SCH (09:16)
[2017-12-23] MEDS: SMZ./TMP. 800/160 MG TABLET PO SCH (09:17)
[2017-12-23] MEDS: ALLOPURINOL 100 MG TAB PO SCH (09:17)
[2017-12-23] MEDS: FUROSEMIDE 20 MG/ 2ML VIAL IV SCH (09:17)
[2017-12-23 12:49] VITALS: TEMP 97.5
[2017-12-23 17:37] VITALS: BP 124/64
--- NOTE | 2017-12-23 17:58 | P.DS ---
Admission Date: 12/22/17 Discharge Date: 12/23/17 Disposition: DC HOME/HOME HEALTH CARE Discharge Condition: FAIR Reason for Admission: DYSPNEA - Problems (1) Stage 4 decubitus ulcer Current Visit: Yes Status: Chronic Qualifiers: Pressure injury location: sacral region Qualified Code(s): L89.154 - Pressure ulcer of sacral region, stage 4 (2) Dyspnea Current Visit: Yes Status: Chronic (3) Heart failure Current Visit: Yes Status: Acute Qualifiers: Heart failure type: diastolic (4) Atrial fibrillation Onset Date: 03/04/14 Current Visit: No Status: Chronic Qualifiers: Atrial fibrillation type: chronic Qualified Code(s): I48.2 - Chronic atrial fibrillation Brief History of Present Illness: PATIENT CAME IN LAST NIGHT WITH DYSPNEA. 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 HE HAS NO CHEST PAIN HE WOKE UP WITH NAUSEA AND DYSPNEA. HE HAS NO CHEST PAIN. HE HAS HAD A LONG COURSE OF HOSPITAL STAY FOR MONTHS AFTER COMPLICATIONS OF CAD, CABG, LATER BED SORE. ACOSTA HAS CLINICALLY IMPROVED. ONCE AGAIN DIET CONTROL WAS STRESSED. I HAVE TALKED TO HIM AND FOR LAST 5 YEARS ABOUT PROPER DIET TO REDUCE WEIGHT AND PRVENT COMPLICATIONS OF OBESITY. NOT MUCH HAS WORKED. HE ATE CHIPS AND FRIED FOOD THE NIGHT BEFORE HE CAME WITH CHF. Vital Signs/Physical Exam: Temp Pulse Resp BP Pulse Ox 97.5 F 81 18 124/64 100 12/23/17 16:00 12/23/17 16:00 12/23/17 16:00 12/23/17 16:00 12/23/17 16:00 Laboratory Data at Discharge: WBC 5.9 K/uL (4.3-10.9) D 12/23/17 04:42 Hgb 10.2 g/dL (13.6-17.9) L 12/23/17 04:42 Hct 31.1 % (39.6-49.0) L 12/23/17 04:42 Plt Count 359 K/uL (152-406) 12/23/17 04:42 PT 25.4 SECONDS (9.5-12.5) H 12/21/17 22:15 INR 2.14 12/21/17 22:15 Sodium 139 mmol/L (136-145) 12/23/17 04:42 Potassium 4.1 mmol/L (3.5-5.1) 12/23/17 04:42 BUN 19 mg/dL (7-18) H 12/23/17 04:42 Creatinine 1.50 mg/dL (0.55-1.3) H 12/23/17 04:42 Glucose 90 mg/dL (74-106) 12/23/17 04:42 Magnesium 2.0 mg/dL (1.8-2.4) 12/21/17 22:15 Troponin I 0.02 ng/mL (0.0-0.045) 12/22/17 09:51 Home Medications: Metoprolol Succinate [Toprol Xl*] 50 mg PO DAILY 06/08/14 traMADol HCL [Ultram] 50 mg PO Q6H PRN #50 tab 07/04/16 Allopurinol 100 mg PO DAILY 12/22/17 Amiodarone HCl [Cordarone Tab] 200 mg PO DAILY 12/22/17 Ascorbic Acid [Vitamin C] 500 mg PO BID 12/22/17 Atorvastatin Calcium 40 mg PO DAILY 12/22/17 Codeine/APAP [Tylenol W/Codeine #3 tab] 1 tab PO Q6HP PRN 12/22/17 Escitalopram Oxalate 10 mg PO DAILY 12/22/17 Magnesium Oxide [Magnesium] 400 mg PO BID 12/22/17 Pantoprazole [Protonix Tab] 40 mg PO DAILY 12/22/17 Rivaroxaban [Xarelto*] 20 mg PO BEDTIME 12/22/17 Zinc Sulfate [Zinc Sulfate*] 1 cap PO DAILY 12/22/17 Furosemide [Lasix] 40 mg PO DAILY #30 tab 12/23/17 Potassium Oral Tab [Klor-Con 10 mEq Tab] 10 meq PO DAILY #30 tab 12/23/17 New Medications: Furosemide [Lasix] 40 mg PO DAILY #30 tab Potassium Oral Tab [Klor-Con 10 mEq Tab] 10 meq PO DAILY #30 tab Followup: Dylon Omer MD [ACTIVE - CAN ADMIT] -
[2017-12-23 21:18] VITALS: O2SAT 100
--- NOTE | 2017-12-24 11:36 | PN ---
Date of Progress Note: 12/23/2017 Subjective: Mr. Pacheco was admitted on 12/22/[address] Alfred. He was admitted by Dr. Esteban ayers. Dr. Alfred saw him. He had congestive heart failure. He is status post CABG in June, has a rather large sacral decubitus. He has been getting physical therapy, wound care, came in with CHF. He has improved dramatically with Lasix. He does not have any shortness of breath today o r edema or rales by examination. He has an atrial fibrillation, echocardiogram was normal, ejection fraction was 50%. I would recommend continuing Lasix, beta-blockers, Xarelto, and amiodarone. He is to continue physical therapy and wound care. No change in his cardiac treatment at this point. ROGERIO/GERMÁN Voice ID: [id number] Report ID: [id number]
== END 2017-12-23 18:11 | disposition home health service (06) ==
LOC: ER 22:01 → ERHOLD 12-22 02:52 → 4TH 12-22 04:05
PROVIDERS: ADMIT Internal Medicine; ATTEND Internal Medicine
DX: I11.0 Hypertensive heart disease with heart failure (principal); I50.31 Acute diastolic (congestive) heart failure; I48.2 Chronic atrial fibrillation; E78.00 Pure hypercholesterolemia, unspecified; L89.154 Pressure ulcer of sacral region, stage 4; I89.0 Lymphedema, not elsewhere classified; M10.9 Gout, unspecified; E66.9 Obesity, unspecified; Z95.1 Presence of aortocoronary bypass graft; Z79.01 Long term (current) use of anticoagulants; Z91.11 Patient's noncompliance with dietary regimen; Z87.891 Personal history of nicotine dependence; Z86.73 Personal history of transient ischemic attack (TIA), and cerebral infarction without residual deficits; Z93.3 Colostomy status; Z68.33 Body mass index [BMI] 33.0-33.9, adult
CPT/HCPCS: 36415 ×2; 71045; 71250; 80048 ×2; 81003 ×2; 83735; 83880 ×2; 84484 ×3; 85025 ×2; 85379; 85610; 93005; 93306; 96374; 99285; G0378 ×2; J1940 ×4

== ENCOUNTER 2018-03-01 00:47 | Inpatient (IN) | payer OTHER ==
--- OUTSIDE RECORDS SUMMARY | 2018-03-01 00:50 | XMS REPORT | Clinical Summary ---
:1945 Author Organization [facility] Address [address] [place] [address] Phone Care Team Providers Name Role Phone [...] nebulizer nebulization 2 solution (two) times daily. folic acid Take 1 tablet (1 0 [...] (PRINIVIL,ZESTRIL) mouth daily. 18 20 MG tablet escitalopram Take 1 tablet (10 0 10/02/2017 01/01/20 oxalate (LEXAPRO) mg total) by 18 10 MG tablet mouth daily for 90 days. metroNIDAZOLE Take 1 tablet 30 tablet 0 [...] (congestive heart failure), NYHA class 4 2017 ([facility]) Moderate protein-calorie malnutrition (HCC) 09/03/2017 Acute renal failure with tubular necrosis ([facility]) 09/03/2017 Acute pulmonary edema ([facility]) 09/03/2017 Severe sepsis ([facility]) 09/02/2017 Sacral decubitus ulcer, stage IV ([facility]) 09/01/2017 Overview: Added automatically from request for surgery [id number] Cardioembolic stroke ([facility]) 08/15/2017 Superficial postoperative wound infection 08/13/2017 CKD (chronic kidney disease) 08/13/2017 Type 2 diabetes mellitus (HCC) 08/13/2017 Physical deconditioning 08/13/2017 Anemia 08/13/2017 Hyponatremia 08/13/2017 Urinary retention 08/13/2017 Obstructive sleep apnea 07/25/2017 Overview: Untreated Acute pulmonary edema (HCC) 07/25/2017 CAD (coronary artery disease) 07/24/2017 Acute pulmonary insufficiency 07/24/2017 Overview: After cardiac surgery secondary to ERICKSON Angina of effort ([facility]) Hyperlipidemia Atrial fibrillation with RVR ([facility]) Coronary artery disease Obesity Encounters Date Type Specialty Care Team Description 12/12/2017 Documentation Cardiology Santa Huffman FNP 11/28/2017 Hospital Encounter General Internal Mallory Richardson MD 12/04/2017 Rommel Petersen MD Kazim, Lubna Syed, MD 09/19/2017 Procedure Pass 09/19/2017 Surgery Molly Sepulveda,COLOSTOM MD Nuzhat Y CREATION/REVISION 09/18/2017 Anesthesia Event Yaneth Chowdhury GRNA 09/06/2017 Procedure Pass 09/06/2017 Surgery Meghan, R & L CATH / Jordan CORONARY ANGIOS / MD Bee PROSTIN STUDY 09/02/2017 Hospital Encounter Cardiology Nahed, Sacral decubitus - Edd Morales ulcer, stage IV 10/03/2017 Lara Cash MD ([facility]) (Primary Giveon, Rodney, Dx);Severe sepsis ([facility]);Atrial Gilma Perdomo fibrillation with MD Rommel RVR ([facility]);YARELIS (acute kidney injury) ([facility]);Acute pulmonary edema ([facility]);Acute renal failure with tubular necrosis ([facility]);Adjustment disorder with depressed mood;Acute on chronic diastolic CHF (congestive heart failure), NYHA class 4 ([facility]);Coronary artery disease involving gakona coronary artery of gakona heart with unstable angina pectoris ([facility]) 09/02/2017 Procedure Pass 09/02/2017 Surgery Nahed, DEBRIDEMENT/I&D,WOUN Edd Cash MD PERINEAL/RECTAL/VULV AR 09/01/2017 Anesthesia Event Catarina Sparks MD 08/15/2017 Hospital Encounter Physical Medicine and Ditommaso, Cardioembolic stroke - Rehabilitation Aiden Smith ([facility]);Atrial 09/02/2017 MD fibrillation, unspecified type ([facility]);Coronary artery disease involving gakona coronary artery of gakona heart with angina pectoris ([facility]);Type 2 diabetes mellitus without complication, with long-term current use of insulin (HCC);Acute pulmonary edema (HCC);Obstructive sleep apnea;Physical deconditioning;Wound of sacral region, sequela;Postoperativ e infection of wound of sternum, sequela 08/01/2017 Procedure Pass 08/01/2017 Surgery Trenton Nickerson DEBRIDEMENT/I&D,RENETTA Chisholm MD NUM 07/31/2017 Anesthesia Event Kermit Rushing MD 07/24/2017 Hospital Encounter Cardiology Keri Lincoln Angina of effort Marcos Bai MD (HCC);Respiratory 08/15/2017 Yan Arreola insufficiency;Martin Love MD ctive sleep Gilma Perdomo apnea;Acute MD Rommel pulmonary insufficiency;Atrial fibrillation, unspecified type (HCC);Acute ischemic stroke (HCC);Wound of buttock, initial encounter;Gait abnormality;Impaired mobility and ADLs 07/24/2017 Anesthesia Event Walter Urbina MD 07/24/2017 Procedure Pass 07/24/2017 Surgery Keri Lincoln BYPASS,AORTO MD Richardson CORONARY LEANDRO/SVG 07/22/2017 Hospital Encounter Keri Lincoln Angina of effort MD Richardson (HCC) 07/22/2017 Office Visit Cardiology Keri Lincoln Coronary artery MD Richardson disease of gakona heart with stable angina pectoris, unspecified vessel or lesion type (HCC) (Primary Dx);Morbid obesity (HCC);Chronic atrial fibrillation (HCC);Angina of effort (HCC);Hyperlipidemia , unspecified hyperlipidemia type;Coronary artery disease involving gakona coronary artery of gakona heart with unstable angina pectoris (HCC) 07/22/2017 Orders Only Cardiology Keri Lincoln Coronary artery MD Richardson disease of gakona heart with stable angina pectoris, unspecified vessel or lesion type (HCC);Morbid obesity (HCC);Chronic atrial fibrillation (HCC) after 02/28/2017 Family History Medical History Relation Name Comments [...] INFLUENZA VACCINE 02/23/2018 Implants Implanted Type Area Pulmonary Care Nurse Device Expiration Model / Identifier Date Serial / Lot Sternal Zipfix Ndl Strl .[id number] - [id number] Cardiovascular N/A: SYNTHES:SYNTHES 02/22/2022501.001.20S / Implanted: Qty: 3 on 07/24/2017 by Keri Lincoln MD [facility] / [id number] Procedures Procedure Name Priority Date/Time Associated Diagnosis Comments LAPAROSCOPY,COLOSTOMY 09/19/2017 10:01 AM Decubitus ulcer of CREATION/REVISION CDT sacral region, unspecified ulcer stage R & L CATH / CORONARY 09/06/2017 5:59 PM Coronary artery disease ANGIOS / PROSTIN STUDY CDT with angina pectoris, unspecified vessel or lesion type, unspecified whether gakona or transplanted heart (HCC) Case Notes [id number] DEBRIDEMENT/I&D,WOUND 09/02/2017 7:30 AM CDT Sacral decubitus PERINEAL/RECTAL/VULVAR ulcer, stage IV ([facility]) Special Needs shayan hagen DEBRIDEMENT/I&D,STERNUM 08/01/2017 12:04 PM OIL EXPERT s/p acb ENDOSCOPIC HARVEST,VEIN 07/24/2017 8:44 AM OIL EXPERT CAOD, A FIB BYPASS,AORTO CORONARY LEANDRO/SVG 07/24/2017 8:44 AM OIL EXPERT CAOD, A FIB after 02/28/2017 Results POC-Glucose meter (12/04/2017 11:43 AM)Only the most recent of313 resultswithin the time period is included. Component Value Ref Range POC-Glucose Meter 128 (H)Comment: TESTED AT [facility] [address] [facility] 70 - 110 mg/[place] [address] Specimen Performing Laboratory Blood [facility] [address] [address] MR pelvis without & with IV contrast (11/29/2017 6:47 PM) Specimen Performing Laboratory GE RIS Narrative FINAL REPORT MRI pelvis without [...] MD Report Verified Date/Time:11/30/2017 07:23:22 Reading Location: [address] Ortho Consult Reading Room Procedure Note [...] Report Verified Date/Time: 11/30/2017 07:23:22 Reading Location: [facility] C013X Ortho Consult Reading Room Prealbumin (11/29/2017 4:13 AM)Only the most recent of3 resultswithin the time period is included. Component Value Ref Range Prealbumin 15 14 - 45 mg/dL Specimen Performing Laboratory Blood - Central Venous Line [facility] [address] [address] XR chest 1 view portable / bedside [...] MD Report Verified Date/Time:11/28/2017 22:05:39 Reading Location: [address] Reading Room Procedure Note Interface, External [...] Report Verified Date/Time: 11/28/2017 22:05:39 Reading Location: [address] Reading Room Wound culture + gram stain (11/28/2017 2:54 PM)Only the most recent of2 resultswithin the time period is included. Component Value Ref Range Result 2+ Staphylococcus aureus (A) Gram Stain Result <1+ WBCs Gram Stain Result <1+ gram positive cocci in chains and pairs Specimen Performing Laboratory Wound - Sacrum [address] [address] Narrative 3+ Skin ciera Organism Antibiotic Method [...] Range Scan Result Specimen Performing Laboratory Blood [address] [address] Narrative Result comments: Coagulase Negative Staphylococcus Species [...] required. This sample was tested at the [facility] Clinical Microbiology Laboratory using the Transmode Systems[employer] Blood Culture ID Panel. This test is FDA cleared for in vitro diagnostic use and has been verified and approved by the [facility] Clinical Microbiologylaboratory for clinical use. Reference Range: [...] % Specimen Performing Laboratory Blood - Arm, [address] [address] Blood culture (11/28/2017 2:16 PM)Only the most recent of7 resultswithin the time period is included. Component Value Ref Range Result From Aerobic Bottle Only Coagulase negative Staphylococcus (A) Gram Stain Result From aerobic bottle only: gram positive cocci in clusters Specimen Performing Laboratory Blood - Arm, [address] [address] Narrative Coagulase Negative Staphylococcus Species (CoNS) DETECTED, [...] required. This sample was tested at the [facility] Clinical Microbiology Laboratory using the [employer] Blood Culture ID Panel. This test is FDA cleared for in vitro diagnostic use and has been verified and approved by the [facility] Clinical Microbiology laboratory for clinical use. Reference Range: Not Detected CBC with platelet count + automated diff (11/28/2017 2:16 PM)Only the most recent of55 resultswithin the time period is included. Specimen Performing Laboratory Blood Narrative The following orders were created for panel order CBC with platelet count + automated diff. Procedure Abnormality Status --------- ------ CBC with platelet count ...[[id number]]AbnormalFinal result Please view results for these tests [...] Specimen Performing Laboratory Blood - Arm, Left [address] [address] RHYTHM STRIP - SCAN (10/07/2017 9:10 AM)Only the most recent of4 resultswithin the time period is included.Magnesium (10/02/2017 4:44 AM)Only the most recent of34 resultswithin the time period is included. Component Value Ref Range Magnesium 1.9 1.6 - 2.6 mg/dL Specimen Performing Laboratory Blood - Arm, Right [address] [address] CARDIAC CATH REPORT - SCAN (09/25/2017 7:11 [...] - 55 U/L Specimen Performing Laboratory Blood [address] [address] TRANSFUSION SERVICE REPORT - SCAN (09/19/2017 5:40 PM)Only the most recent of10 resultswithin the time period is included.Type and screen, automated (09/18 5:19 AM)Only the most recent of4 resultswithin the time period is included. Component Value Ref Range ABO/RH AUTOMATED (BEAKER) O POSITIVE Ab Scrn NEGATIVE Specimen Performing Laboratory Blood [address] [address] ECHOCARDIOGRAM REPORT - SCAN (09/09/2017 9:50 AM)Only the most recent of4 resultswithin the time period is included.2D Echo W/Doppler(CW/PW/Color) (2017 1:55 PM)Only the most recent of3 resultswithin the time period is included. Component Value Ref Range Ejection Fraction Specimen Performing Laboratory [facility] ECHO HEARTLAB MKCKESSON CPACS Narrative Transthoracic Echocardiography Report (TTE) Demographics Patient NameGOACOSTA GALLEGODate of Study09/08/2017 PAUL Gender Male Visit [id number] Race [id number] Number Date of 1945 Referring PhysicianAmrit Gooden Age 72 year(s) Head Golf Coach Brick Shader Luz ParmarsInterprejoey Rogers MD Physician Procedure Type of Study [...] Study 09/08/2017 PAUL Gender Male Visit Number [id number] Race Room Number 1411 Number Date of 1945 Referring Physician Amrit Gooden Age 72 year(s) Head Golf Coach Brick Shader Luz Chau Interpreting Alina Rogers MD Physician [...] Specimen Performing Laboratory Blood - Arm, Left [address] [address] Vancomycin level, random (09/06/2017 12:06 PM)Only the most recent of2 resultswithin the time period is included. Component Value Ref Range Vancomycin Rm 19.2 ug/mL Specimen Performing Laboratory Blood [address] [address] Narrative Reference Range: No Normals Prepare Leuko-Red RBC (09/05/2017 11:54 PM)Only the most recent of2 resultswithin the time period is included. Component Value Ref Range CROSSMATCH COMPATIBLE Unit ABO O Pos UNIT NUMBER [id number] Status TRANSFUSED Blood Bank Product RED BLOOD CELLS PRODUCT CODE [id number] Specimen Performing Laboratory Other [place] Vancomycin level, trough (09/05/2017 2:54 PM) Component Value Ref Range Vancomycin Tr 27.4 (H) 10.0 - 20.0 ug/mL Specimen Performing Laboratory Blood - Line, Arterial [address] [address] Narrative Please draw trough 30 minutes prior [...] - 1 % Specimen Performing Laboratory Blood [address] [address] CBC with platelet count + manual diff (09/05/2017 3:02 AM) Specimen Performing Laboratory Blood Narrative The following orders were created for panel order CBC with platelet count + manual diff. Procedure Abnormality Status --------- ------ CBC with platelet count ...[[id number]]AbnormalFinal result Manual Differential[[id number]] Please view results for these tests on [...] 0 /100 WBC Specimen Performing Laboratory Blood [address] [address] Transfuse Leuko-Red RBC (09/04/2017 2:38 PM)Only the most recent of4 resultswithin the time period is included.B-type Natriuretic Factor (BNP) (09/04 10:14 AM)Only the most recent of2 resultswithin the time period is included. Component Value Ref Range BNP 360 (H) 0 - 100 pg/mL Specimen Performing Laboratory Blood [address] [address] Iron, TIBC, % sat. (without ferritin) (09/03/2017 10:22 AM) Component Value Ref Range Iron 38 (L) 40 - 160 ug/dL TIBC 168 (L) 250 - 450 ug/dL Iron % Saturation 23 20 - 55 % Specimen Performing Laboratory Blood - Line, [address] [address] Reticulocyte count (09/03/2017 10:22 AM) Component Value Ref Range % Retic 3.2 (H) 0.5 - 1.8 % Specimen Performing Laboratory Blood - Line, [address] [address] Ferritin (09/03/2017 10:22 AM) Component Value Ref Range Ferritin 400 (H) 5 - 275 ng/mL Specimen Performing Laboratory Blood - Line, [address] [address] Hemoglobin and hematocrit (09/03/2017 5:57 AM)Only the most recent of2 resultswithin the time period is included. Component Value Ref Range Hemoglobin 6.7 (L) 13.7 - 17.5 GM/DL Hematocrit 23.0 (L) 40.1 - 51.0 % Specimen Performing Laboratory Blood [address] [address] Urinalysis w/ Microscopic (09/02/2017 10:19 PM)Only the most recent of3 resultswithin the time period is included. Component Value Ref Range Color, UA Yellow Clarity, UA Hazy Specific [place], UA 1.018 1.001 - 1.035 pH, UA [...] /HPF Specimen Source Specimen Performing Laboratory Urine [address] [address] Urine culture (09/02/2017 10:19 PM)Only the most recent of2 resultswithin the time period is included. Component Value Ref Range Result No growth Gram Stain Result 1+ WBCs Gram Stain Result No organisms seen Specimen Performing Laboratory Urine - Urine, Frances [address] [address] Lactic acid, arterial, whole blood (09/02/2017 10:07 PM)Only the most recent of6 resultswithin the time period is included. Component Value Ref Range Lactate, Art 1.9 0.5 - 2.2 mmol/L Specimen Performing Laboratory Blood, Arterial [address] [address] Narrative Effective 09/27/2015: Units/Reference Range Change New: 0.5-2.2 mmol/LPrevious: 5-20 mg/dL Lactic acid, venous, whole blood (09/02/2017 7:49 PM)Only the most recent of2 resultswithin the time period is included. Component Value Ref Range Lactate, Venous 2.0 0.5 - 2.2 mmol/L Specimen Performing Laboratory Blood [address] [address] Narrative Effective 09/27/2015: Units/Reference Range Change New: 0.5-2.2 mmol/LPrevious: 5-20 mg/dL aPTT (09/02/2017 1:56 PM)Only the most recent of2 resultswithin the time period is included. Component Value Ref Range PTT 37.6 (H) 22.5 - 36.0 seconds Specimen Performing Laboratory Blood [address] [address] Prothrombin time/INR (09/02/2017 1:56 PM)Only the most recent of4 resultswithin the time period is included. Component Value Ref Range Protime 21.3 (H) 11.7 - 14.7 seconds INR 1.8 <=5.9 Specimen Performing Laboratory Blood [address] [address] Narrative RECOMMENDED COUMADIN/WARFARIN INR THERAPY RANGES STANDARD [...] 308 ms QTC Calculation(Bazett) 447 ms R [place] 36 degrees T [place] 234 degrees Atrial flutter with variable A-V [...] 308 ms QTC Calculation(Bazett) 447 ms R [place] 36 degrees T [place] 234 degrees Atrial flutter with variable A-V [...] seen Specimen Performing Laboratory Wound - Sacral [address] [address] Anaerobic culture (09/02/2017 10:14 AM)Only the most recent of3 resultswithin the time period is included. Component Value Ref Range Result 2+ Prevotella bivia (A) Result 2+ Bacteroides fragilis group (A) Specimen Performing Laboratory Wound - Sacral [address] [address] Surgically obtained culture + gram stain (09/02/2017 10:14 AM)Only the most recent of3 resultswithin the time period is included. Component Value Ref Range Result No growth Gram Stain Result <1+ WBCs Gram Stain Result No organisms seen Specimen Performing Laboratory Wound [address] [address] Fungus culture + smear (09/02/2017 10:14 AM)Only the most recent of3 resultswithin the time period is included. Component Value Ref Range Result No fungus isolated in 28 days Fungus Smear No fungi seen Specimen Performing Laboratory [address] [address] SPIN/CONCENTRATION CHARGE (09/02/2017 10:14 AM)Only the most recent of2 resultswithin the time period is included. Component Value Ref Range Concentration charged Done Specimen Performing Laboratory [address] [address] Comprehensive metabolic panel (08/28/2017 4:19 PM) Component [...] FOR DIALYSIS PATIENTS. Specimen Performing Laboratory Blood [address] [address] Vitamin B12 and Folate (08/19/2017 5:18 AM) Component Value Ref Range Vitamin B12 654 213 - 816 pg/mL Folate 4.4 (L) >=7.0 ng/mL Specimen Performing Laboratory Blood [address] [address] [address] chest without IV contrast (08/18/2017 9:51 [...] VIVAR Report Verified Date/Time:08/18/2017 22:14:14 Reading Location: [facility] B[facility] C013Y [facility] Body Reading Room [...] Report Verified Date/Time: 08/18/2017 22:14:14 Reading Location: [facility] B1 C013Y CT Body Reading Room ULAR DIAGRAM -SCAN (08/18/2017 3:11 PM)XR chest 2 views (08/15/2017 9:01 AM)Only the most recent of2 resultswithin the time period is included. Specimen Performing Laboratory EventSorbet Narrative FINAL REPORT Two frontal and one lateral chest images compared to August 14 Discussion: Cardiomegaly and pulmonary congestion are present. I could not exclude a small right effusion although pleural thickening would have a similar appearance. No pneumothorax. IMPRESSIONS: No change Signed: Taty Osborne MD Report Verified Date/Time:08/15/2017 09:16:20 Reading Location: [facility] Radiology Reading Room Procedure Note Interface, External [...] Report Verified Date/Time: 08/15/2017 09:16:20 Reading Location: [facility] Reading Room Limited 2D Echocardiogram (08/13/2017 10:42 AM) Component Value Ref Range Ejection Fraction Specimen Performing Laboratory [facility] ECHO HEARTLAB MKCKESSON [facility] Narrative Transthoracic Echocardiography Report (TTE) Demographics Patient NameGOJeni GALLEGO of Study08/13/2017 PAUL Gender Male Visit [id number] Race [id number] Number Date of 1945 [facility] Physician Age 72 year(s) SonographCarlita Cuellar Brick Shader Luz ContrerasInterpreting Sierra Roberts Physician Procedure Type of Study [...] Donaldson's:29.1 ml LVEDVI: 49 ml/ m^2 LVEF Donaldson's: 76.2 %LVESVI: 12 ml/m^2 Right Atrium RA Vol. (Sngl Plane): 85.16 ml Right Ventricle RV Diast Dim.: 4.38 cm Aorta Ao Root S of Anna.: 3.4 cmAscending Aorta: 3.11 cm Procedure Note Interface, External Ris In - 08/13/2017 11:10 PM CDT Transthoracic Echocardiography Report (TTE) Demographics Patient Name ACOSTA ELAINE Date of Study 08/13/2017 PAUL Gender Male Visit Number [id number] Race Room Number 1034 Number Date of 1945 Referring Debra Sanders Physician Age 72 year(s) Head Golf Coach Jean Claude Cuellar Brick Shader Luz Chau Interpreting Physician CB Aldana Procedure Type of Study [...] Specimen Performing Laboratory Blood - Arm, Left [address] [address] [address] brain without IV contrast (08/05/2017 5:02 PM)Only the most recent of2 resultswithin the time period is included. Specimen Performing Laboratory [facility] RIS Narrative FINAL REPORT CT head without [...] MD Report Verified Date/Time:08/05/2017 17:19:56 Reading Location: [facility] Reading Room Procedure Note Interface, External Ris [...] Report Verified Date/Time: 08/05/2017 17:19:56 Reading Location: [facility] Radiology Reading Room abdomen / KUB 1 view (08/03/2017 1:20 PM) Specimen Performing Laboratory RIS Narrative FINAL REPORT Comparison: None Discussion: Abdomen: Bowel gas pattern is nonobstructed. Evaluation for free intraperitoneal air is limited due to technique and positioning. Stent projects over the lower abdomen and pelvis. No acute skeletal abnormality. Impression: 1. Nonspecific bowel gas pattern. Signed: Emerson Rojo MD Report Verified Date/Time:08/03/2017 13:37:00 Reading Location: [facility] C013 Transitional Reading Room Procedure Note Interface, External [...] Report Verified Date/Time: 08/03/2017 13:37:00 Reading Location: [facility] C013 Transitional Reading Room Prepare RBC (08/01/2017 4:17 PM) Component Value Ref Range CROSSMATCH COMPATIBLE Unit ABO O Pos UNIT NUMBER [id number] Status RETURNED FROM ISSUE Blood Bank Product RED BLOOD CELLS PRODUCT CODE [id number] CROSSMATCH COMPATIBLE Unit ABO O Pos UNIT NUMBER [id number] Status RETURNED FROM ISSUE Blood Bank Product RED BLOOD CELLS PRODUCT CODE [id number] Specimen Performing Laboratory [facility] PERIPHERAL VASCULAR REPORT - SCAN (08/01/2017 7:20 AM)Calcium, Ionized (2017 4:06 AM)Only the most recent of16 resultswithin the time period is included. Component Value Ref Range Calcium, Ion 0.96 (L) 1.12 - 1.27 mmol/L pH, Blood 7.38 Specimen Performing Laboratory Blood [facility] [address] [address] Carotid doppler bilateral (07/31/2017 7:45 PM) Component Value Ref Range Ejection Fraction Specimen Performing Laboratory [facility] ECHO HEARTLAB MKCKESSON CPACS Impressions [...] ACOSTA ELAINE Date of Study 07/31/2017 PAUL [id number] Visit Number [id number] Male Accession Number [id number] of 1945 [facility] SonographKamaljit Barksdale. Hermilo Cary, RVS Physician , LY Patrick [...] External Ris In - 07/31/2017 8:41 PM OIL EXPERT PV LAB - Carotid Duplex Study Demographics Patient Name ACOSTA ELAINE Date of Study 07/31/2017 PAUL Age 72 Visit Number [id number] Gender Male Accession Number [id number] Date of 1945 Referring Yan Love Room Number 1034 Physician Maxwell Head Golf Coach Barry Cary RVS Physician , LY Patrick [...] Calculated 59 mg/dL Specimen Performing Laboratory Blood [address] [address] Narrative Triglyceride Reference Range: Low Risk <150 [id number] High Risk 200-499 Very High Risk>=500 Cholesterol Reference Range: Low Risk <200 [id number] High Risk>240 HDL Cholesterol Reference Range: Low Risk >=60 High Risk <40 LDL Cholesterol Reference Range: Optimal<100 Near [id number] Arbnzyjcss079-405 [id number] Very High >=190 Potassium (07/30/2017 3:52 PM)Only the most recent of14 resultswithin the time period is included. Component Value Ref Range Potassium 3.6 3.5 - 5.1 meq/L Specimen Performing Laboratory Blood [address] [address] Oxygen saturation, measured (07/27/2017 3:43 AM)Only the most recent of3 resultswithin the time period is included. Component Value Ref Range O2 Saturation (Measured) 59.2 % Specimen Performing Laboratory Blood [address] [address] Blood gas, arterial (07/26/2017 8:18 PM)Only the [...] 52.0 % Specimen Performing Laboratory Blood, Arterial [address] [address] Prepare plasma (07/25/2017 11:55 PM) Component Value Ref Range Unit ABO O Pos UNIT NUMBER [id number] Status RETURNED FROM ISSUE Blood Bank Product FFP PRODUCT CODE I0515U38 Unit ABO O Pos UNIT NUMBER [id number] Status TRANSFUSED Blood Bank Product FFP PRODUCT CODE [id number] Specimen Performing Laboratory [facility] AN[facility] [place] [...] Ezekiel Saenz MD - 07/24/2017 2:05 PM [employer] Formatting of this note may be different [...] meq/L Specimen Performing Laboratory Blood, Arterial [facility] [address] [address] Glucose-STAT (07/24/2017 9:05 PM) Component Value Ref Range Glucose 232 (H) 70 - 105 mg/dL Specimen Performing Laboratory Blood [address] [address] POC ACTIVATED CLOTTING TIME (07/24/2017 1:32 PM)Only the most recent of6 resultswithin the time period is included. Component Value Ref Range Activated Clotting Time 114Comment: TESTED AT [address] sec [id number] Specimen Performing Laboratory Blood [address] [address] [facility] (ABG,NA,K,H&H,GLUCOSE) (07/24/2017 12:52 PM)Only the most recent of5 resultswithin the time period is included. Specimen Performing Laboratory Blood, Arterial Narrative The following orders were created for panel order [facility] (ABG,NA,K,H&H,GLUCOSE). Procedure Abnormality Status --------- ------ Blood gas, arterial[[id number]]AbnormalFinal result Sodium Na-Stat Lab[[id number]] NormalFinal result Potassium-Stat Lab[[id number]] NormalFinal result Glucose-Stat Lab[[id number]] AbnormalFinal result HGB/HCT (H&H)-Stat Lab[[id number]] Abnormal Final result Please view results for these tests on the individual orders. Sodium Na-Stat Lab (07/24/2017 12:52 PM)Only the most recent of5 resultswithin the time period is included. Component Value Ref Range Sodium 136 135 - 148 meq/L Specimen Performing Laboratory Blood, Arterial [address] [address] Glucose-Stat Lab (07/24/2017 12:52 PM)Only the most recent of5 resultswithin the time period is included. Component Value Ref Range Glucose 164 (H) 70 - 110 mg/dL Specimen Performing Laboratory Blood, Arterial [address] [address] HGB/HCT (H&H)-Stat Lab (07/24/2017 12:52 PM)Only the most recent of5 resultswithin the time period is included. Component Value Ref Range Hemoglobin 11.9 (L) 13.0 - 16.8 g/dL Hematocrit 35.0 (L) 40.0 - 50.0 % Specimen Performing Laboratory Blood, Arterial [address] [address] Fibrinogen (07/24/2017 12:07 PM)Only the most recent of2 resultswithin the time period is included. Component Value Ref Range Fibrinogen 287 225 - 434 mg/dl Specimen Performing Laboratory Blood [address] [address] Platelet count (07/24/2017 12:07 PM)Only the most recent of2 resultswithin the time period is included. Component Value Ref Range Platelets 77 (L) 150 - 450 K/CU MM Specimen Performing Laboratory Blood [address] [address] Blood gas, venous (07/24/2017 10:51 AM) Component [...] FIO2 80.0 % Specimen Performing Laboratory Blood [address] [address] Hemoglobin A1c (07/22/2017 10:00 AM) Component Value Ref Range Hemoglobin A1C 7.6 (H) 4.3 - 6.1 % Specimen Performing Laboratory Blood [address] [address] after 02/28/2017
--- OUTSIDE RECORDS SUMMARY | 2018-03-01 01:01 | XMS REPORT ---
:1945 [facility] Address [address] [place] [address] [address] [place] [address] Care Team Providers Name Role Phone JOSE DE LA CRUZ Marilyn Unavailable Unavailable LISA NAVARRO Unavailable Unavailable DENEEN, ENMANUEL JONES Unavailable Unavailable KERI TORO Unavailable Unavailable Problems [...] (BEAKER) (test 128 mg/dL 70-[address] [facility] [address] [place] [address] rrrz=2741) [facility] [address] POCT-GLUCOSE [id number] 08:45:00 Test Item Value Reference Range Comments POC-GLUCOSE METER (BEAKER) 116 mg/dL 70-110 TESTED AT [address] (test grdg=5191) [facility] [address] BLOOD [id number] 08:27:00 Test Item Value Reference Range Comments CULTURE (BEAKER) From Aerobic Bottle Only (test kjpx=5010) Coagulase negative Staphylococcus GRAM STAIN RESULT From aerobic bottle (BEAKER) (test only: gram positive rzyu=4470) cocci in clusters Coagulase Negative Staphylococcus Species [...] [facility] Clinical Microbiology Laboratory using the [employer] Blood Culture ID Panel.This test is FDA cleared for in vitro diagnostic use and has been verified and approved by the [facility] for clinical use. Reference Range: Not DetectedPOCT-GLUCOSE [id number] 20:41:00 Test Item Value Reference Range Comments POC-GLUCOSE METER (BEAKER) 153 mg/dL 70-110 TESTED AT [address] (test dhir=8034) [place] [id number] POCT-GLUCOSE [id number] 18:53:00 Test Item Value Reference Range Comments POC-GLUCOSE METER (BEAKER) 138 mg/dL 70-110 TESTED AT [address] (test roxx=6874) [facility] [address] POCT-GLUCOSE [id number] 12:27:00 Test Item Value Reference Range Comments POC-GLUCOSE METER (BEAKER) 147 mg/dL 70-110 TESTED AT [address] (test aksu=5220) [place] [id number] POCT-GLUCOSE [id number] 08:21:00 Test Item Value Reference Range Comments POC-GLUCOSE METER (BEAKER) 106 mg/dL 70-110 TESTED AT [address] (test glsw=9139) [place] [id number] POCT-GLUCOSE [id number] 22:43:00 Test Item Value Reference Range Comments POC-GLUCOSE METER (BEAKER) 160 mg/dL 70-110 TESTED AT [address] (test gzsn=7307) [facility] [address] POCT-GLUCOSE [id number] 17:22:00 Test Item Value Reference Range Comments POC-GLUCOSE METER (BEAKER) 139 mg/dL 70-110 TESTED AT [address] (test bmhw=4410) [facility] [address] POCT-GLUCOSE [id number] 16:09:00 Test Item Value Reference Range Comments POC-GLUCOSE METER (BEAKER) 123 mg/dL 70-110 TESTED AT [address] (test mkeg=6378) [place] [address] POCT-GLUCOSE [id number] 21:33:00 Test Item Value Reference Range Comments POC-GLUCOSE METER (BEAKER) 144 mg/dL 70-110 TESTED AT [address] (test hqcu=9205) [facility] [address] POCT-GLUCOSE [id number] 17:38:00 Test Item Value Reference Range Comments POC-GLUCOSE METER (BEAKER) 126 mg/dL 70-110 TESTED AT [address] (test qgnw=0763) [place] [address] POCT-GLUCOSE [id number] 11:59:00 Test Item Value Reference Range Comments POC-GLUCOSE METER (BEAKER) 112 mg/dL 70-110 TESTED AT [address] (test zjqy=3968) [place] [address] WOUND CULTURE + GRAM [id number] 08:12:00 Test Item Value Reference Range Comments CULTURE (BEAKER) (test STAPHYLOCOCCUS AUREUS 2+ Staphylococcus vvhp=9171) aureus Clindamycin (test code=10) Erythromycin (test code=4) Linezolid (test code=40) Nitrofurantoin (test code=23) Oxacillin (test code=14) Rifampin (test code=43) Tetracycline (test code=2) Trimethoprim + Sulfamethoxazole (test code=47) Vancomycin (test code=13) GRAM STAIN RESULT <1+ WBCs (BEAKER) (test pnsn=8725) GRAM STAIN RESULT <1+ gram positive (BEAKER) (test cocci in chains and lgpx=145126) pairs 3+ Skin floraMISCELLANEOUS LAB [id number] 07:32:00 Test Item Value Reference Range Comments SCAN RESULT (test gqas=[id number]) Result comments: Coagulase Negative Staphylococcus Species (CoNS) [...] [facility] Clinical Microbiology Laboratory using the [employer] Blood Culture ID Panel. This test is FDA cleared for in vitro diagnostic use and has been verified and approved by the [facility] Clinical Microbiology laboratory for clinical use. Reference Range: Not DetectedPOCT-GLUCOSE [id number] 07:31:00 Test Item Value Reference Range Comments POC-GLUCOSE METER (BEAKER) 107 mg/dL 70-110 TESTED AT [address] (test ghdp=2858) [place] [address] POCT-GLUCOSE [id number] 23:08:00 Test Item Value Reference Range Comments POC-GLUCOSE METER (BEAKER) 106 mg/dL 70-110 TESTED AT [address] (test aarx=4532) [place] [address] POCT-GLUCOSE [id number] 16:57:00 Test Item Value Reference Range Comments POC-GLUCOSE METER (BEAKER) 140 mg/dL 70-110 TESTED AT [address] (test jddb=4498) [place] [address] POCT-GLUCOSE [id number] 12:19:00 Test Item Value Reference Range Comments POC-GLUCOSE METER (BEAKER) 114 mg/dL 70-110 TESTED AT [address] (test xjjp=7598) [place] [address] POCT-GLUCOSE [id number] 08:40:00 Test Item Value Reference Range Comments POC-GLUCOSE METER (BEAKER) 117 mg/dL 70-110 TESTED AT [address] (test ytng=4762) [place] [address] MR, PELVIS, [id number] 07:23:00FINAL REPORT MRI pelvis without and with [...] No evidence of osteomyelitis. Signed: [facility] Verified Date/Time: 11/30/2017 07:23 :22 Reading Location: [facility] C013X [facility] Consult Reading Room POCT-GLUCOSE [id number] 22:33:00 Test Item Value Reference Range Comments POC-GLUCOSE METER (BEAKER) 137 mg/dL 70-110 TESTED AT [address] (test tela=0968) [place] [address] POCT-GLUCOSE [id number] 16:49:00 Test Item Value Reference Range Comments POC-GLUCOSE METER (BEAKER) 118 mg/dL 70-110 TESTED AT [address] (test lnzp=2091) [place] [address] POCT-GLUCOSE [id number] 12:37:00 Test Item Value Reference Range Comments POC-GLUCOSE METER (BEAKER) 146 mg/dL 70-110 TESTED AT [address] (test ssmm=4186) [place] [address] POCT-GLUCOSE [id number] 08:46:00 Test Item Value Reference Range Comments POC-GLUCOSE METER (BEAKER) 109 mg/dL 70-110 TESTED AT [address] (test tcwi=6064) [place] [address] [id number] 05:26:00 Test Item Value Reference Range Comments PREALBUMIN (BEAKER) (test vpoz=760) 15 mg/dL 14-45 POCT-GLUCOSE [id number] 22:08:00 Test Item Value Reference Range Comments POC-GLUCOSE METER (BEAKER) 120 mg/dL 70-110 TESTED AT [address] (test uobp=6253) [place] [address] RAD, CHEST, 1 VIEW, NON [id number] 22:05:00Reason for exam:->Post PICC line insertion RUE [...] MDReport Verified Date/Time: 11/28/2017 22:05:39 Reading Location: [address] Reading Room POCT- GLUCOSE [id number] 17:58:00 Test Item Value Reference Range Comments POC-GLUCOSE METER (BEAKER) 181 mg/dL 70-[address] [facility] [address] [facility] (test zlmp=2159) [facility] [address] BASIC METABOLIC [id number] 14:55:00 Test Item Value Reference Range Comments SODIUM (BEAKER) (test 138 meq/L 136-145 yzau=946) POTASSIUM (BEAKER) (test 4.2 meq/L 3.5-5.1 ewno=093) CHLORIDE (BEAKER) (test 106 meq/L 98-107 chff=506) CO2 (BEAKER) (test 26 meq/L 22-29 vtff=900) BLOOD UREA NITROGEN 21 mg/dL 7-21 (BEAKER) (test rmyw=212) CREATININE (BEAKER) (test 1.18 mg/dL 0.57-1.25 ynqd=469) GLUCOSE RANDOM (BEAKER) 108 mg/dL 70-105 (test twhv=907) CALCIUM (BEAKER) (test 9.3 mg/dL 8.4-10.2 eudq=713) EGFR (BEAKER) (test 60 mL/min/1.73 sq m ESTIMATED GFR IS NOT utid=8705) ACCURATE CREATININE CLEARANCE IN PREDICTING GLOMERULAR FILTRATION RATE. ESTIMATED GFR IS NOT APPLICABLE FOR DIALYSIS PATIENTS. CBC W/PLT COUNT & AUTO [id number] 14:29:00 Test Item Value Reference Range Comments WHITE BLOOD CELL COUNT (BEAKER) (test rktx=802) 8.5 K/ L 3.5-10.5 RED BLOOD CELL COUNT (BEAKER) (test zuaa=938) 4.49 M/ L 4.63-6.08 HEMOGLOBIN (BEAKER) (test vyvy=915) 11.6 GM/DL 13.7-17.5 HEMATOCRIT (BEAKER) (test flvj=072) 38.7 % 40.1-51.0 MEAN CORPUSCULAR VOLUME (BEAKER) (test umtw=809) 86.2 fL 79.0-92.2 MEAN CORPUSCULAR HEMOGLOBIN (BEAKER) (test 25.8 pg 25.7-32.2 kzby=713) MEAN CORPUSCULAR HEMOGLOBIN CONC (BEAKER) (test 30.0 GM/DL 32.3-36.5 ppke=536) RED CELL DISTRIBUTION WIDTH (BEAKER) (test 19.9 % 11.6-14.4 yrjo=290) PLATELET COUNT (BEAKER) (test cgkt=365) 395 K/CU MM 150-450 MEAN PLATELET VOLUME (BEAKER) (test xasv=198) 11.0 fL 9.4-12.4 NUCLEATED RED BLOOD CELLS (BEAKER) (test 0 /100 WBC 0-0 ausb=918) NEUTROPHILS RELATIVE PERCENT (BEAKER) (test 71 % fece=342) LYMPHOCYTES RELATIVE PERCENT (BEAKER) (test 20 % gxcv=305) MONOCYTES RELATIVE PERCENT (BEAKER) (test 6 % wchy=363) EOSINOPHILS RELATIVE PERCENT (BEAKER) (test 1 % ngzw=319) BASOPHILS RELATIVE PERCENT (BEAKER) (test 1 % gmjr=856) NEUTROPHILS ABSOLUTE COUNT (BEAKER) (test 6.05 K/ L 1.78-5.38 eqzo=446) LYMPHOCYTES ABSOLUTE COUNT (BEAKER) (test 1.73 K/ L 1.32-3.57 atwu=790) MONOCYTES ABSOLUTE COUNT (BEAKER) (test 0.52 K/ L 0.30-0.82 rwyi=252) EOSINOPHILS ABSOLUTE COUNT (BEAKER) (test 0.12 K/ L 0.04-0.54 amzb=086) BASOPHILS ABSOLUTE COUNT (BEAKER) (test 0.05 K/ L 0.01-0.08 hbze=729) IMMATURE GRANULOCYTES-RELATIVE PERCENT (BEAKER) 0 % 0-1 (test xfev=0887) AFB CULTURE + [id number] 09:43:00 Test Item Value Reference Range Comments CULTURE (BEAKER) (test No acid-fast bacilli isolated exyw=3967) in 42 days AFB SMEAR (BEAKER) (test No acid fast bacilli seen jagm=387) AFB CULTURE + [id number] 09:43:00 Test Item Value Reference Range Comments CULTURE (BEAKER) (test No acid-fast bacilli isolated zlci=9591) in 42 days AFB SMEAR (BEAKER) (test No acid fast bacilli seen kkvm=514) POCT-GLUCOSE [id number] 12:56:00 Test Item Value Reference Range Comments POC-GLUCOSE METER (BEAKER) 119 mg/dL 70-110 TESTED AT [address] (test idnl=5048) [facility] [address] POCT-GLUCOSE [id number] 08:17:00 Test Item Value Reference Range Comments POC-GLUCOSE METER (BEAKER) 111 mg/dL 70-110 TESTED AT [address] (test rrpg=3088) [facility] [address] POCT-GLUCOSE [id number] 21:59:00 Test Item Value Reference Range Comments POC-GLUCOSE METER (BEAKER) 130 mg/dL 70-110 TESTED AT [address] (test aedg=3542) [place] [id number] POCT-GLUCOSE [id number] 16:59:00 Test Item Value Reference Range Comments POC-GLUCOSE METER (BEAKER) 120 mg/dL 70-110 TESTED AT [address] (test imci=9786) [facility] [address] POCT-GLUCOSE [id number] 11:30:00 Test Item Value Reference Range Comments POC-GLUCOSE METER (BEAKER) 125 mg/dL 70-110 TESTED AT [address] (test ygfk=3477) [facility] [address] POCT-GLUCOSE [id number] 07:44:00 Test Item Value Reference Range Comments POC-GLUCOSE METER (BEAKER) 104 mg/dL 70-110 TESTED AT [address] (test xuik=2602) [facility] [address] BASIC METABOLIC [id number] 06:15:00 Test Item Value Reference Range Comments SODIUM (BEAKER) (test 140 meq/L 136-145 cuvn=942) POTASSIUM (BEAKER) (test 3.7 meq/L 3.5-5.1 ifrh=737) CHLORIDE (BEAKER) (test 114 meq/L 98-107 zpyt=478) CO2 (BEAKER) (test 16 meq/L 22-29 vbhx=770) BLOOD UREA NITROGEN 14 mg/dL 7-21 (BEAKER) (test qoac=475) CREATININE (BEAKER) (test 0.85 mg/dL 0.57-1.25 fcps=725) GLUCOSE RANDOM (BEAKER) 83 mg/dL 70-105 (test yklu=251) CALCIUM (BEAKER) (test 7.9 mg/dL 8.4-10.2 gcpw=754) EGFR (BEAKER) (test 88 mL/min/1.73 sq m ESTIMATED GFR IS NOT osbu=4488) ACCURATE CREATININE CLEARANCE IN PREDICTING GLOMERULAR FILTRATION RATE. ESTIMATED GFR IS NOT APPLICABLE FOR DIALYSIS PATIENTS. [id number] 06:05:00 Test Item Value Reference Range Comments MAGNESIUM (BEAKER) (test byjv=830) 1.9 mg/dL 1.6-2.6 CBC W/PLT COUNT & AUTO [id number] 05:32:00 Test Item Value Reference Range Comments WHITE BLOOD CELL COUNT (BEAKER) (test xkcd=690) 8.9 K/ L 3.5-10.5 RED BLOOD CELL COUNT (BEAKER) (test webu=682) 4.06 M/ L 4.63-6.08 HEMOGLOBIN (BEAKER) (test fvic=573) 10.9 GM/DL 13.7-17.5 HEMATOCRIT (BEAKER) (test xhzi=796) 37.1 % 40.1-51.0 MEAN CORPUSCULAR VOLUME (BEAKER) (test vptz=872) 91.4 fL 79.0-92.2 MEAN CORPUSCULAR HEMOGLOBIN (BEAKER) (test 26.8 pg 25.7-32.2 nhdu=242) MEAN CORPUSCULAR HEMOGLOBIN CONC (BEAKER) (test 29.4 GM/DL 32.3-36.5 ewec=460) RED CELL DISTRIBUTION WIDTH (BEAKER) (test 19.6 % 11.6-14.4 wnof=085) PLATELET COUNT (BEAKER) (test hpbq=294) 392 K/CU MM 150-450 MEAN PLATELET VOLUME (BEAKER) (test wsxa=849) 10.1 fL 9.4-12.4 NUCLEATED RED BLOOD CELLS (BEAKER) (test 0 /100 WBC 0-0 uxwz=336) NEUTROPHILS RELATIVE PERCENT (BEAKER) (test 70 % lwek=815) LYMPHOCYTES RELATIVE PERCENT (BEAKER) (test 18 % wdqb=073) MONOCYTES RELATIVE PERCENT (BEAKER) (test 8 % licy=667) EOSINOPHILS RELATIVE PERCENT (BEAKER) (test 4 % tjeu=521) BASOPHILS RELATIVE PERCENT (BEAKER) (test 1 % fvkq=067) NEUTROPHILS ABSOLUTE COUNT (BEAKER) (test 6.20 K/ L 1.78-5.38 mvgx=393) LYMPHOCYTES ABSOLUTE COUNT (BEAKER) (test 1.62 K/ L 1.32-3.57 tqgy=671) MONOCYTES ABSOLUTE COUNT (BEAKER) (test 0.70 K/ L 0.30-0.82 ddwx=226) EOSINOPHILS ABSOLUTE COUNT (BEAKER) (test 0.31 K/ L 0.04-0.54 yazi=962) BASOPHILS ABSOLUTE COUNT (BEAKER) (test 0.06 K/ L 0.01-0.08 innt=021) IMMATURE GRANULOCYTES-RELATIVE PERCENT (BEAKER) 0 % 0-1 (test gzvc=5931) POCT-GLUCOSE [id number] 20:45:00 Test Item Value Reference Range Comments POC-GLUCOSE METER (BEAKER) 158 mg/dL 70-110 TESTED AT [address] (test gmpl=8130) [place] [address] POCT-GLUCOSE [id number] 17:10:00 Test Item Value Reference Range Comments POC-GLUCOSE METER (BEAKER) 149 mg/dL 70-110 TESTED AT [address] (test darh=7921) [place] [address] FUNGUS CULTURE + [id number] 16:32:00 Test Item Value Reference Range Comments CULTURE (BEAKER) (test No fungus isolated in 28 days wofe=6409) FUNGUS SMEAR (BEAKER) (test No fungi seen lhod=4251) FUNGUS CULTURE + [id number] 16:32:00 Test Item Value Reference Range Comments CULTURE (BEAKER) (test No fungus isolated in 28 days pcft=4687) FUNGUS SMEAR (BEAKER) (test No fungi seen auna=1973) POCT-GLUCOSE [id number] 11:59:00 Test Item Value Reference Range Comments POC-GLUCOSE METER (BEAKER) 135 mg/dL 70-110 TESTED AT [address] (test tait=6986) [place] [address] POCT-GLUCOSE [id number] 08:05:00 Test Item Value Reference Range Comments POC-GLUCOSE METER (BEAKER) 167 mg/dL 70-110 TESTED AT [address] (test cttw=1299) [place] [address] BASIC METABOLIC [id number] 07:11:00 Test Item Value Reference Range Comments SODIUM (BEAKER) (test 139 meq/L 136-145 kyse=800) POTASSIUM (BEAKER) (test 3.7 meq/L 3.5-5.1 zgbb=680) CHLORIDE (BEAKER) (test 116 meq/L 98-107 gfxb=508) CO2 (BEAKER) (test 18 meq/L 22-29 dmuk=097) BLOOD UREA NITROGEN 14 mg/dL 7-21 (BEAKER) (test uhef=420) CREATININE (BEAKER) (test 0.84 mg/dL 0.57-1.25 qxgt=921) GLUCOSE RANDOM (BEAKER) 95 mg/dL 70-105 (test knyi=175) CALCIUM (BEAKER) (test 7.7 mg/dL 8.4-10.2 dgbo=799) EGFR (BEAKER) (test 89 mL/min/1.73 sq m ESTIMATED GFR IS NOT xclc=9694) ACCURATE CREATININE CLEARANCE IN PREDICTING GLOMERULAR FILTRATION RATE. ESTIMATED GFR IS NOT APPLICABLE FOR DIALYSIS PATIENTS. [id number] 07:08:00 Test Item Value Reference Range Comments MAGNESIUM (BEAKER) (test tsrw=533) 1.6 mg/dL 1.6-2.6 POCT-GLUCOSE [id number] 21:06:00 Test Item Value Reference Range Comments POC-GLUCOSE METER (BEAKER) 166 mg/dL 70-110 TESTED AT [address] (test htqe=0301) [place] [id number] POCT-GLUCOSE [id number] 17:25:00 Test Item Value Reference Range Comments POC-GLUCOSE METER (BEAKER) 149 mg/dL 70-110 TESTED AT [address] (test rkhc=5394) [place] [id number] POCT-GLUCOSE [id number] 12:40:00 Test Item Value Reference Range Comments POC-GLUCOSE METER (BEAKER) 143 mg/dL 70-110 TESTED AT [address] (test psck=3258) [place] [address] POCT-GLUCOSE [id number] 08:32:00 Test Item Value Reference Range Comments POC-GLUCOSE METER (BEAKER) 99 mg/dL 70-110 TESTED AT [address] (test nflr=7282) [place] [address] [id number] 07:01:00 Test Item Value Reference Range Comments MAGNESIUM (BEAKER) (test 1.5 mg/dL 1.6-2.6 Specimen slightly hemolyzed nccz=353) BASIC METABOLIC [id number] 05:59:00 Test Item Value Reference Range Comments SODIUM (BEAKER) (test 140 meq/L 136-145 ramt=159) POTASSIUM (BEAKER) (test 3.9 meq/L 3.5-5.1 Specimen slightly lvqk=473) hemolyzed CHLORIDE (BEAKER) (test 117 meq/L 98-107 dcem=537) CO2 (BEAKER) (test 15 meq/L 22-29 pmnt=478) BLOOD UREA NITROGEN 15 mg/dL 7-21 (BEAKER) (test emga=976) CREATININE (BEAKER) (test 0.81 mg/dL 0.57-1.25 Specimen slightly mskn=083) hemolyzed GLUCOSE RANDOM (BEAKER) 95 mg/dL 70-105 (test zhfz=715) CALCIUM (BEAKER) (test 7.6 mg/dL 8.4-10.2 tchq=547) EGFR (BEAKER) (test 93 mL/min/1.73 sq m ESTIMATED GFR IS NOT jjar=9183) ACCURATE CREATININE CLEARANCE IN PREDICTING GLOMERULAR FILTRATION RATE. ESTIMATED GFR IS NOT APPLICABLE FOR DIALYSIS PATIENTS. CBC W/PLT COUNT & AUTO [id number] 05:12:00 Test Item Value Reference Range Comments WHITE BLOOD CELL COUNT (BEAKER) (test dswv=354) 8.1 K/ L 3.5-10.5 RED BLOOD CELL COUNT (BEAKER) (test gbht=556) 3.27 M/ L 4.63-6.08 HEMOGLOBIN (BEAKER) (test gpwd=461) 8.8 GM/DL 13.7-17.5 HEMATOCRIT (BEAKER) (test fmia=760) 30.6 % 40.1-51.0 MEAN CORPUSCULAR VOLUME (BEAKER) (test lshy=996) 93.6 fL 79.0-92.2 MEAN CORPUSCULAR HEMOGLOBIN (BEAKER) (test 26.9 pg 25.7-32.2 eugz=931) MEAN CORPUSCULAR HEMOGLOBIN CONC (BEAKER) (test 28.8 GM/DL 32.3-36.5 jrpr=468) RED CELL DISTRIBUTION WIDTH (BEAKER) (test 19.8 % 11.6-14.4 exsv=348) PLATELET COUNT (BEAKER) (test qwsg=973) 370 K/CU MM 150-450 MEAN PLATELET VOLUME (BEAKER) (test bmml=159) 10.5 fL 9.4-12.4 NUCLEATED RED BLOOD CELLS (BEAKER) (test 0 /100 WBC 0-0 nhnq=133) NEUTROPHILS RELATIVE PERCENT (BEAKER) (test 67 % lpbj=147) LYMPHOCYTES RELATIVE PERCENT (BEAKER) (test 19 % xbwj=593) MONOCYTES RELATIVE PERCENT (BEAKER) (test 9 % kvix=821) EOSINOPHILS RELATIVE PERCENT (BEAKER) (test 4 % mvsm=011) BASOPHILS RELATIVE PERCENT (BEAKER) (test 1 % kqyq=759) NEUTROPHILS ABSOLUTE COUNT (BEAKER) (test 5.46 K/ L 1.78-5.38 oxcy=855) LYMPHOCYTES ABSOLUTE COUNT (BEAKER) (test 1.51 K/ L 1.32-3.57 ehmf=544) MONOCYTES ABSOLUTE COUNT (BEAKER) (test 0.72 K/ L 0.30-0.82 bypj=333) EOSINOPHILS ABSOLUTE COUNT (BEAKER) (test 0.32 K/ L 0.04-0.54 tnmp=452) BASOPHILS ABSOLUTE COUNT (BEAKER) (test 0.07 K/ L 0.01-0.08 edyn=895) IMMATURE GRANULOCYTES-RELATIVE PERCENT (BEAKER) 1 % 0-1 (test pgrv=1488) POCT-GLUCOSE [id number] 21:38:00 Test Item Value Reference Range Comments POC-GLUCOSE METER (BEAKER) 119 mg/dL 70-110 TESTED AT [address] (test bhqf=4360) [facility] [address] POCT-GLUCOSE [id number] 17:02:00 Test Item Value Reference Range Comments POC-GLUCOSE METER (BEAKER) 150 mg/dL 70-110 TESTED AT [address] (test iqry=2770) [facility] [address] POCT-GLUCOSE [id number] 12:18:00 Test Item Value Reference Range Comments POC-GLUCOSE METER (BEAKER) 143 mg/dL 70-110 TESTED AT [address] (test clet=0164) [facility] [address] POCT-GLUCOSE [id number] 10:33:00 Test Item Value Reference Range Comments POC-GLUCOSE METER (BEAKER) 184 mg/dL 70-110 TESTED AT [address] (test mifx=1995) [facility] [address] POCT-GLUCOSE [id number] 21:23:00 Test Item Value Reference Range Comments POC-GLUCOSE METER (BEAKER) 130 mg/dL 70-110 TESTED AT [address] (test kfbk=2857) [facility] [address] POCT-GLUCOSE [id number] 17:48:00 Test Item Value Reference Range Comments POC-GLUCOSE METER (BEAKER) 117 mg/dL 70-110 TESTED AT [address] (test ragh=6363) [facility] [address] POCT-GLUCOSE [id number] 13:20:00 Test Item Value Reference Range Comments POC-GLUCOSE METER (BEAKER) 118 mg/dL 70-110 TESTED AT [address] (test pygq=1575) [facility] [address] POCT-GLUCOSE [id number] 08:15:00 Test Item Value Reference Range Comments POC-GLUCOSE METER (BEAKER) 102 mg/dL 70-110 TESTED AT [address] (test yqgu=9293) [facility] [address] BASIC METABOLIC [id number] 05:42:00 Test Item Value Reference Range Comments SODIUM (BEAKER) (test 139 meq/L 136-145 yejc=973) POTASSIUM (BEAKER) (test 4.2 meq/L 3.5-5.1 tblt=218) CHLORIDE (BEAKER) (test 114 meq/L 98-107 hdli=578) CO2 (BEAKER) (test 17 meq/L 22-29 ntee=657) BLOOD UREA NITROGEN 17 mg/dL 7-21 (BEAKER) (test iwyj=760) CREATININE (BEAKER) (test 0.90 mg/dL 0.57-1.25 smlv=039) GLUCOSE RANDOM (BEAKER) 91 mg/dL 70-105 (test nvuk=359) CALCIUM (BEAKER) (test 7.9 mg/dL 8.4-10.2 qttm=977) EGFR (BEAKER) (test 82 mL/min/1.73 sq m ESTIMATED GFR IS NOT pwwy=7344) ACCURATE CREATININE CLEARANCE IN PREDICTING GLOMERULAR FILTRATION RATE. ESTIMATED GFR IS NOT APPLICABLE FOR DIALYSIS PATIENTS. CBC W/PLT COUNT & AUTO [id number] 04:58:00 Test Item Value Reference Range Comments WHITE BLOOD CELL COUNT (BEAKER) (test gnzm=908) 8.2 K/ L 3.5-10.5 RED BLOOD CELL COUNT (BEAKER) (test dexu=733) 3.31 M/ L 4.63-6.08 HEMOGLOBIN (BEAKER) (test gcyk=952) 9.1 GM/DL 13.7-17.5 HEMATOCRIT (BEAKER) (test sdfp=597) 30.7 % 40.1-51.0 MEAN CORPUSCULAR VOLUME (BEAKER) (test faoi=985) 92.7 fL 79.0-92.2 MEAN CORPUSCULAR HEMOGLOBIN (BEAKER) (test 27.5 pg 25.7-32.2 pjht=966) MEAN CORPUSCULAR HEMOGLOBIN CONC (BEAKER) (test 29.6 GM/DL 32.3-36.5 cnkn=717) RED CELL DISTRIBUTION WIDTH (BEAKER) (test 19.5 % 11.6-14.4 nyve=088) PLATELET COUNT (BEAKER) (test uinq=549) 384 K/CU MM 150-450 MEAN PLATELET VOLUME (BEAKER) (test reog=274) 10.2 fL 9.4-12.4 NUCLEATED RED BLOOD CELLS (BEAKER) (test 0 /100 WBC 0-0 bosb=639) NEUTROPHILS RELATIVE PERCENT (BEAKER) (test 69 % lvek=448) LYMPHOCYTES RELATIVE PERCENT (BEAKER) (test 19 % yxub=280) MONOCYTES RELATIVE PERCENT (BEAKER) (test 8 % edsc=212) EOSINOPHILS RELATIVE PERCENT (BEAKER) (test 4 % fnfi=935) BASOPHILS RELATIVE PERCENT (BEAKER) (test 1 % mqwz=658) NEUTROPHILS ABSOLUTE COUNT (BEAKER) (test 5.61 K/ L 1.78-5.38 dnjm=530) LYMPHOCYTES ABSOLUTE COUNT (BEAKER) (test 1.52 K/ L 1.32-3.57 arra=794) MONOCYTES ABSOLUTE COUNT (BEAKER) (test 0.62 K/ L 0.30-0.82 mdxn=861) EOSINOPHILS ABSOLUTE COUNT (BEAKER) (test 0.31 K/ L 0.04-0.54 muyo=160) BASOPHILS ABSOLUTE COUNT (BEAKER) (test 0.04 K/ L 0.01-0.08 uzoa=479) IMMATURE GRANULOCYTES-RELATIVE PERCENT (BEAKER) 1 % 0-1 (test rblz=8537) POCT-GLUCOSE [id number] 20:56:00 Test Item Value Reference Range Comments POC-GLUCOSE METER (BEAKER) 106 mg/dL 70-110 TESTED AT [address] (test jkoh=5399) [facility] [address] POCT-GLUCOSE [id number] 16:55:00 Test Item Value Reference Range Comments POC-GLUCOSE METER (BEAKER) 106 mg/dL 70-110 TESTED AT [address] (test bxcx=1244) [facility] [address] POCT-GLUCOSE [id number] 12:19:00 Test Item Value Reference Range Comments POC-GLUCOSE METER (BEAKER) 121 mg/dL 70-110 TESTED AT [address] (test fhge=9375) [place] [address] POCT-GLUCOSE [id number] 07:51:00 Test Item Value Reference Range Comments POC-GLUCOSE METER (BEAKER) 190 mg/dL 70-110 TESTED AT [address] (test yxdv=0158) [place] [id number] POCT-GLUCOSE [id number] 21:29:00 Test Item Value Reference Range Comments POC-GLUCOSE METER (BEAKER) 117 mg/dL 70-110 TESTED AT [address] (test xfyr=5221) [facility] [address] POCT-GLUCOSE [id number] 17:29:00 Test Item Value Reference Range Comments POC-GLUCOSE METER (BEAKER) 123 mg/dL 70-110 TESTED AT [address] (test awip=1471) [facility] [address] POCT-GLUCOSE [id number] 07:09:00 Test Item Value Reference Range Comments POC-GLUCOSE METER (BEAKER) 96 mg/dL 70-110 TESTED AT [address] (test bhsf=8549) [facility] [address] BASIC METABOLIC [id number] 06:48:00 Test Item Value Reference Range Comments SODIUM (BEAKER) (test 139 meq/L 136-145 txbl=073) POTASSIUM (BEAKER) (test 4.2 meq/L 3.5-5.1 meyv=805) CHLORIDE (BEAKER) (test 114 meq/L 98-107 mvgv=341) CO2 (BEAKER) (test 17 meq/L 22-29 lohe=714) BLOOD UREA NITROGEN 18 mg/dL 7-21 (BEAKER) (test pvcz=117) CREATININE (BEAKER) (test 0.97 mg/dL 0.57-1.25 ugrk=633) GLUCOSE RANDOM (BEAKER) 94 mg/dL 70-105 (test cwuj=381) CALCIUM (BEAKER) (test 8.3 mg/dL 8.4-10.2 vcyh=257) EGFR (BEAKER) (test 76 mL/min/1.73 sq m ESTIMATED GFR IS NOT hlwb=7145) ACCURATE CREATININE CLEARANCE IN PREDICTING GLOMERULAR FILTRATION RATE. ESTIMATED GFR IS NOT APPLICABLE FOR DIALYSIS PATIENTS. CBC W/PLT COUNT & AUTO [id number] 05:36:00 Test Item Value Reference Range Comments WHITE BLOOD CELL COUNT (BEAKER) (test xbuw=763) 8.0 K/ L 3.5-10.5 RED BLOOD CELL COUNT (BEAKER) (test epoq=392) 3.32 M/ L 4.63-6.08 HEMOGLOBIN (BEAKER) (test nrmz=128) 9.1 GM/DL 13.7-17.5 HEMATOCRIT (BEAKER) (test zkma=191) 31.1 % 40.1-51.0 MEAN CORPUSCULAR VOLUME (BEAKER) (test tayj=127) 93.7 fL 79.0-92.2 MEAN CORPUSCULAR HEMOGLOBIN (BEAKER) (test 27.4 pg 25.7-32.2 hdcn=899) MEAN CORPUSCULAR HEMOGLOBIN CONC (BEAKER) (test 29.3 GM/DL 32.3-36.5 neaq=083) RED CELL DISTRIBUTION WIDTH (BEAKER) (test 19.7 % 11.6-14.4 siso=541) PLATELET COUNT (BEAKER) (test vmbr=145) 361 K/CU MM 150-450 MEAN PLATELET VOLUME (BEAKER) (test ojmp=967) 10.1 fL 9.4-12.4 NUCLEATED RED BLOOD CELLS (BEAKER) (test 0 /100 WBC 0-0 joas=317) NEUTROPHILS RELATIVE PERCENT (BEAKER) (test 66 % ikbg=797) LYMPHOCYTES RELATIVE PERCENT (BEAKER) (test 20 % yzng=975) MONOCYTES RELATIVE PERCENT (BEAKER) (test 8 % ngpi=643) EOSINOPHILS RELATIVE PERCENT (BEAKER) (test 5 % vdis=830) BASOPHILS RELATIVE PERCENT (BEAKER) (test 1 % ealk=314) NEUTROPHILS ABSOLUTE COUNT (BEAKER) (test 5.27 K/ L 1.78-5.38 bqtv=551) LYMPHOCYTES ABSOLUTE COUNT (BEAKER) (test 1.62 K/ L 1.32-3.57 wqdt=973) MONOCYTES ABSOLUTE COUNT (BEAKER) (test 0.61 K/ L 0.30-0.82 irlj=135) EOSINOPHILS ABSOLUTE COUNT (BEAKER) (test 0.42 K/ L 0.04-0.54 dwev=094) BASOPHILS ABSOLUTE COUNT (BEAKER) (test 0.05 K/ L 0.01-0.08 lpou=680) IMMATURE GRANULOCYTES-RELATIVE PERCENT (BEAKER) 1 % 0-1 (test wfpd=2004) POCT-GLUCOSE [id number] 21:28:00 Test Item Value Reference Range Comments POC-GLUCOSE METER (BEAKER) 119 mg/dL 70-110 TESTED AT [address] (test rsor=4509) [facility] [address] POCT-GLUCOSE [id number] 17:30:00 Test Item Value Reference Range Comments POC-GLUCOSE METER (BEAKER) 119 mg/dL 70-110 TESTED AT [address] (test veip=8976) [facility] [address] POCT-GLUCOSE [id number] 12:16:00 Test Item Value Reference Range Comments POC-GLUCOSE METER (BEAKER) 172 mg/dL 70-110 TESTED AT [address] (test nyjz=5353) [facility] [address] POCT-GLUCOSE [id number] 08:15:00 Test Item Value Reference Range Comments POC-GLUCOSE METER (BEAKER) 118 mg/dL 70-110 TESTED AT [address] (test oiqj=8092) [facility] [address] POCT-GLUCOSE [id number] 20:56:00 Test Item Value Reference Range Comments POC-GLUCOSE METER (BEAKER) 171 mg/dL 70-110 TESTED AT [address] (test wvce=3255) [facility] [address] POCT-GLUCOSE [id number] 16:52:00 Test Item Value Reference Range Comments POC-GLUCOSE METER (BEAKER) 130 mg/dL 70-[address] [facility] [address] [facility] (test qwrl=4749) [facility] [address] POCT-GLUCOSE [id number] 12:59:00 Test Item Value Reference Range Comments POC-GLUCOSE METER (BEAKER) 124 mg/dL 70-110 TESTED AT [address] (test mtxy=2356) [place] [id number] POCT-GLUCOSE [id number] 07:37:00 Test Item Value Reference Range Comments POC-GLUCOSE METER (BEAKER) 95 mg/dL 70-110 TESTED AT [address] (test saqt=3647) [facility] [address] BASIC METABOLIC [id number] 05:54:00 Test Item Value Reference Range Comments SODIUM (BEAKER) (test 140 meq/L 136-145 ehjf=887) POTASSIUM (BEAKER) (test 4.4 meq/L 3.5-5.1 znvu=278) CHLORIDE (BEAKER) (test 116 meq/L 98-107 vwqw=331) CO2 (BEAKER) (test 17 meq/L 22-29 xnum=363) BLOOD UREA NITROGEN 16 mg/dL 7-21 (BEAKER) (test wlhu=558) CREATININE (BEAKER) (test 1.01 mg/dL 0.57-1.25 ddjq=564) GLUCOSE RANDOM (BEAKER) 98 mg/dL 70-105 (test hcmu=656) CALCIUM (BEAKER) (test 8.3 mg/dL 8.4-10.2 awwl=624) EGFR (BEAKER) (test 72 mL/min/1.73 sq m ESTIMATED GFR IS NOT obnd=9814) ACCURATE CREATININE CLEARANCE IN PREDICTING GLOMERULAR FILTRATION RATE. ESTIMATED GFR IS NOT APPLICABLE FOR DIALYSIS PATIENTS. CBC W/PLT COUNT & AUTO [id number] 05:33:00 Test Item Value Reference Range Comments WHITE BLOOD CELL COUNT (BEAKER) (test spvf=623) 8.8 K/ L 3.5-10.5 RED BLOOD CELL COUNT (BEAKER) (test sgkg=828) 3.34 M/ L 4.63-6.08 HEMOGLOBIN (BEAKER) (test qsnc=681) 9.2 GM/DL 13.7-17.5 HEMATOCRIT (BEAKER) (test urrp=944) 31.9 % 40.1-51.0 MEAN CORPUSCULAR VOLUME (BEAKER) (test nmwx=930) 95.5 fL 79.0-92.2 MEAN CORPUSCULAR HEMOGLOBIN (BEAKER) (test 27.5 pg 25.7-32.2 jwks=303) MEAN CORPUSCULAR HEMOGLOBIN CONC (BEAKER) (test 28.8 GM/DL 32.3-36.5 prso=738) RED CELL DISTRIBUTION WIDTH (BEAKER) (test 19.8 % 11.6-14.4 clis=447) PLATELET COUNT (BEAKER) (test vbfy=320) 375 K/CU MM 150-450 MEAN PLATELET VOLUME (BEAKER) (test qbxg=679) 9.9 fL 9.4-12.4 NUCLEATED RED BLOOD CELLS (BEAKER) (test 0 /100 WBC 0-0 kvus=769) NEUTROPHILS RELATIVE PERCENT (BEAKER) (test 69 % iakc=948) LYMPHOCYTES RELATIVE PERCENT (BEAKER) (test 17 % xnuq=294) MONOCYTES RELATIVE PERCENT (BEAKER) (test 8 % lvmp=907) EOSINOPHILS RELATIVE PERCENT (BEAKER) (test 5 % bghc=636) BASOPHILS RELATIVE PERCENT (BEAKER) (test 1 % agoo=473) NEUTROPHILS ABSOLUTE COUNT (BEAKER) (test 6.05 K/ L 1.78-5.38 cjry=632) LYMPHOCYTES ABSOLUTE COUNT (BEAKER) (test 1.53 K/ L 1.32-3.57 agyo=519) MONOCYTES ABSOLUTE COUNT (BEAKER) (test 0.73 K/ L 0.30-0.82 aynr=699) EOSINOPHILS ABSOLUTE COUNT (BEAKER) (test 0.40 K/ L 0.04-0.54 rsyb=178) BASOPHILS ABSOLUTE COUNT (BEAKER) (test 0.05 K/ L 0.01-0.08 eeaf=233) IMMATURE GRANULOCYTES-RELATIVE PERCENT (BEAKER) 1 % 0-1 (test cqvu=1587) POCT-GLUCOSE [id number] 21:13:00 Test Item Value Reference Range Comments POC-GLUCOSE METER (BEAKER) 159 mg/dL 70-[address] [facility] [address] [facility] (test hikc=5506) [facility] [address] POCT-GLUCOSE [id number] 17:08:00 Test Item Value Reference Range Comments POC-GLUCOSE METER (BEAKER) 150 mg/dL 70-110 TESTED AT [address] (test gzeq=8310) [facility] [address] POCT-GLUCOSE [id number] 12:03:00 Test Item Value Reference Range Comments POC-GLUCOSE METER (BEAKER) 163 mg/dL 70-110 TESTED AT [address] (test bejm=7350) [facility] [address] POCT-GLUCOSE [id number] 08:07:00 Test Item Value Reference Range Comments POC-GLUCOSE METER (BEAKER) 114 mg/dL 70-110 TESTED AT [address] (test olol=1662) [place] [id number] POCT-GLUCOSE [id number] 01:27:00 Test Item Value Reference Range Comments POC-GLUCOSE METER (BEAKER) 116 mg/dL 70-110 TESTED AT [address] (test tzqp=8607) [place] [address] POCT-GLUCOSE [id number] 19:42:00 Test Item Value Reference Range Comments POC-GLUCOSE METER (BEAKER) 119 mg/dL 70-110 TESTED AT [address] (test knss=6585) [place] [id number] POCT-GLUCOSE [id number] 12:22:00 Test Item Value Reference Range Comments POC-GLUCOSE METER (BEAKER) 130 mg/dL 70-110 TESTED AT [address] (test zzcq=2726) [place] [id number] POCT-GLUCOSE [id number] 07:40:00 Test Item Value Reference Range Comments POC-GLUCOSE METER (BEAKER) 132 mg/dL 70-110 TESTED AT [address] (test usvc=2173) [facility] [address] BASIC METABOLIC [id number] 05:37:00 Test Item Value Reference Range Comments SODIUM (BEAKER) (test 136 meq/L 136-145 cthi=875) POTASSIUM (BEAKER) (test 4.2 meq/L 3.5-5.1 iiow=904) CHLORIDE (BEAKER) (test 111 meq/L 98-107 badv=370) CO2 (BEAKER) (test 18 meq/L 22-29 isif=260) BLOOD UREA NITROGEN 21 mg/dL 7-21 (BEAKER) (test bclk=634) CREATININE (BEAKER) (test 0.90 mg/dL 0.57-1.25 uapk=208) GLUCOSE RANDOM (BEAKER) 102 mg/dL 70-105 (test fusg=087) CALCIUM (BEAKER) (test 7.8 mg/dL 8.4-10.2 kqaa=038) EGFR (BEAKER) (test 82 mL/min/1.73 sq m ESTIMATED GFR IS NOT fzzr=4052) ACCURATE CREATININE CLEARANCE IN PREDICTING GLOMERULAR FILTRATION RATE. ESTIMATED GFR IS NOT APPLICABLE FOR DIALYSIS PATIENTS. CBC W/PLT COUNT & AUTO [id number] 05:03:00 Test Item Value Reference Range Comments WHITE BLOOD CELL COUNT (BEAKER) (test pydp=795) 9.7 K/ L 3.5-10.5 RED BLOOD CELL COUNT (BEAKER) (test qcov=611) 3.04 M/ L 4.63-6.08 HEMOGLOBIN (BEAKER) (test dqwx=317) 8.3 GM/DL 13.7-17.5 HEMATOCRIT (BEAKER) (test vznv=978) 28.9 % 40.1-51.0 MEAN CORPUSCULAR VOLUME (BEAKER) (test jivi=984) 95.1 fL 79.0-92.2 MEAN CORPUSCULAR HEMOGLOBIN (BEAKER) (test 27.3 pg 25.7-32.2 kqdv=161) MEAN CORPUSCULAR HEMOGLOBIN CONC (BEAKER) (test 28.7 GM/DL 32.3-36.5 zcev=715) RED CELL DISTRIBUTION WIDTH (BEAKER) (test 19.7 % 11.6-14.4 licq=950) PLATELET COUNT (BEAKER) (test czvr=342) 356 K/CU MM 150-450 MEAN PLATELET VOLUME (BEAKER) (test hdbb=116) 10.4 fL 9.4-12.4 NUCLEATED RED BLOOD CELLS (BEAKER) (test 0 /100 WBC 0-0 zlqj=337) NEUTROPHILS RELATIVE PERCENT (BEAKER) (test 72 % vizf=178) LYMPHOCYTES RELATIVE PERCENT (BEAKER) (test 15 % csqo=228) MONOCYTES RELATIVE PERCENT (BEAKER) (test 7 % uzos=859) EOSINOPHILS RELATIVE PERCENT (BEAKER) (test 5 % vejh=921) BASOPHILS RELATIVE PERCENT (BEAKER) (test 1 % xait=858) NEUTROPHILS ABSOLUTE COUNT (BEAKER) (test 6.97 K/ L 1.78-5.38 orxo=630) LYMPHOCYTES ABSOLUTE COUNT (BEAKER) (test 1.48 K/ L 1.32-3.57 ihkt=936) MONOCYTES ABSOLUTE COUNT (BEAKER) (test 0.69 K/ L 0.30-0.82 pacb=345) EOSINOPHILS ABSOLUTE COUNT (BEAKER) (test 0.44 K/ L 0.04-0.54 mccm=707) BASOPHILS ABSOLUTE COUNT (BEAKER) (test 0.05 K/ L 0.01-0.08 sdrd=807) IMMATURE GRANULOCYTES-RELATIVE PERCENT (BEAKER) 1 % 0-1 (test noqp=5028) POCT-GLUCOSE [id number] 21:34:00 Test Item Value Reference Range Comments POC-GLUCOSE METER (BEAKER) 141 mg/dL 70-110 TESTED AT [address] (test tjml=8179) [place] [address] POCT-GLUCOSE [id number] 18:21:00 Test Item Value Reference Range Comments POC-GLUCOSE METER (BEAKER) 131 mg/dL 70-110 TESTED AT [address] (test rukz=2669) [place] [address] POCT-GLUCOSE [id number] 12:54:00 Test Item Value Reference Range Comments POC-GLUCOSE METER (BEAKER) 139 mg/dL 70-110 TESTED AT [address] (test ebjo=8741) [place] [id number] POCT-GLUCOSE [id number] 08:41:00 Test Item Value Reference Range Comments POC-GLUCOSE METER (BEAKER) 132 mg/dL 70-110 TESTED AT [address] (test mukw=4102) [place] [id number] BASIC METABOLIC [id number] 05:44:00 Test Item Value Reference Range Comments SODIUM (BEAKER) (test 137 meq/L 136-145 hxop=960) POTASSIUM (BEAKER) (test 3.9 meq/L 3.5-5.1 phfx=699) CHLORIDE (BEAKER) (test 111 meq/L 98-107 nqev=796) CO2 (BEAKER) (test 17 meq/L 22-29 fwwj=888) BLOOD UREA NITROGEN 21 mg/dL 7-21 (BEAKER) (test zuex=854) CREATININE (BEAKER) (test 1.01 mg/dL 0.57-1.25 apsu=352) GLUCOSE RANDOM (BEAKER) 136 mg/dL 70-105 (test twpt=809) CALCIUM (BEAKER) (test 7.6 mg/dL 8.4-10.2 ixfs=895) EGFR (BEAKER) (test 72 mL/min/1.73 sq m ESTIMATED GFR IS NOT cjyt=9236) ACCURATE CREATININE CLEARANCE IN PREDICTING GLOMERULAR FILTRATION RATE. ESTIMATED GFR IS NOT APPLICABLE FOR DIALYSIS PATIENTS. CBC W/PLT COUNT & AUTO [id number] 04:59:00 Test Item Value Reference Range Comments WHITE BLOOD CELL COUNT (BEAKER) (test ureu=254) 9.8 K/ L 3.5-10.5 RED BLOOD CELL COUNT (BEAKER) (test tzmu=407) 3.06 M/ L 4.63-6.08 HEMOGLOBIN (BEAKER) (test eugt=120) 8.5 GM/DL 13.7-17.5 HEMATOCRIT (BEAKER) (test itqq=726) 29.4 % 40.1-51.0 MEAN CORPUSCULAR VOLUME (BEAKER) (test xzyp=169) 96.1 fL 79.0-92.2 MEAN CORPUSCULAR HEMOGLOBIN (BEAKER) (test 27.8 pg 25.7-32.2 kcce=560) MEAN CORPUSCULAR HEMOGLOBIN CONC (BEAKER) (test 28.9 GM/DL 32.3-36.5 pjfq=939) RED CELL DISTRIBUTION WIDTH (BEAKER) (test 19.9 % 11.6-14.4 kncf=933) PLATELET COUNT (BEAKER) (test pnbo=151) 357 K/CU MM 150-450 MEAN PLATELET VOLUME (BEAKER) (test cnsj=654) 10.1 fL 9.4-12.4 NUCLEATED RED BLOOD CELLS (BEAKER) (test 0 /100 WBC 0-0 xnxp=013) NEUTROPHILS RELATIVE PERCENT (BEAKER) (test 73 % gatp=391) LYMPHOCYTES RELATIVE PERCENT (BEAKER) (test 13 % yqdn=992) MONOCYTES RELATIVE PERCENT (BEAKER) (test 7 % cdjr=225) EOSINOPHILS RELATIVE PERCENT (BEAKER) (test 5 % bgcl=519) BASOPHILS RELATIVE PERCENT (BEAKER) (test 1 % eejv=488) NEUTROPHILS ABSOLUTE COUNT (BEAKER) (test 7.20 K/ L 1.78-5.38 ujft=435) LYMPHOCYTES ABSOLUTE COUNT (BEAKER) (test 1.28 K/ L 1.32-3.57 vjlo=337) MONOCYTES ABSOLUTE COUNT (BEAKER) (test 0.72 K/ L 0.30-0.82 mpwi=863) EOSINOPHILS ABSOLUTE COUNT (BEAKER) (test 0.47 K/ L 0.04-0.54 iufp=991) BASOPHILS ABSOLUTE COUNT (BEAKER) (test 0.05 K/ L 0.01-0.08 ctgr=429) IMMATURE GRANULOCYTES-RELATIVE PERCENT (BEAKER) 1 % 0-1 (test veuf=5500) POCT-GLUCOSE [id number] 21:21:00 Test Item Value Reference Range Comments POC-GLUCOSE METER (BEAKER) 141 mg/dL 70-110 TESTED AT [address] (test dzku=3132) [place] [address] POCT-GLUCOSE [id number] 17:50:00 Test Item Value Reference Range Comments POC-GLUCOSE METER (BEAKER) 142 mg/dL 70-110 TESTED AT [address] (test bdmz=1512) [place] [id number] POCT-GLUCOSE [id number] 12:12:00 Test Item Value Reference Range Comments POC-GLUCOSE METER (BEAKER) 148 mg/dL 70-110 TESTED AT [address] (test qles=8125) [facility] [address] HEPATIC FUNCTION [id number] 09:57:00 Test Item Value Reference Range Comments TOTAL PROTEIN (BEAKER) (test kgrn=701) 5.7 gm/dL 6.0-8.3 ALBUMIN (BEAKER) (test obzd=0693) 2.5 g/dL 3.5-5.0 BILIRUBIN TOTAL (BEAKER) (test tbrl=666) 0.4 mg/dL 0.2-1.2 BILIRUBIN DIRECT (BEAKER) (test fowb=329) 0.2 mg/dL 0.1-0.5 ALKALINE PHOSPHATASE (BEAKER) (test sshx=353) 65 U/L 40-150 AST (SGOT) (BEAKER) (test wiar=123) 18 U/L 5-34 ALT (SGPT) (BEAKER) (test qmot=904) 11 U/L 6-55 BASIC METABOLIC [id number] 08:36:00 Test Item Value Reference Range Comments SODIUM (BEAKER) (test 139 meq/L 136-145 ejga=996) POTASSIUM (BEAKER) (test 4.1 meq/L 3.5-5.1 ntld=768) CHLORIDE (BEAKER) (test 111 meq/L 98-107 ijjc=193) CO2 (BEAKER) (test 19 meq/L 22-29 vata=181) BLOOD UREA NITROGEN 31 mg/dL 7-21 (BEAKER) (test rwsi=022) CREATININE (BEAKER) (test 1.29 mg/dL 0.57-1.25 kezc=296) GLUCOSE RANDOM (BEAKER) 138 mg/dL 70-105 (test srag=703) CALCIUM (BEAKER) (test 7.7 mg/dL 8.4-10.2 gucm=919) EGFR (BEAKER) (test 54 mL/min/1.73 sq m ESTIMATED GFR IS NOT bgsw=9182) ACCURATE CREATININE CLEARANCE IN PREDICTING GLOMERULAR FILTRATION RATE. ESTIMATED GFR IS NOT APPLICABLE FOR DIALYSIS PATIENTS. POCT-GLUCOSE [id number] 08:14:00 Test Item Value Reference Range Comments POC-GLUCOSE METER (BEAKER) 156 mg/dL 70-[address] [facility] [address] [facility] (test yzdy=4269) [facility] [address] CBC W/PLT COUNT & AUTO [id number] 08:14:00 Test Item Value Reference Range Comments WHITE BLOOD CELL COUNT (BEAKER) (test zito=415) 9.2 K/ L 3.5-10.5 RED BLOOD CELL COUNT (BEAKER) (test pjrg=208) 3.41 M/ L 4.63-6.08 HEMOGLOBIN (BEAKER) (test criq=261) 9.3 GM/DL 13.7-17.5 HEMATOCRIT (BEAKER) (test yfkg=171) 32.5 % 40.1-51.0 MEAN CORPUSCULAR VOLUME (BEAKER) (test zqyk=895) 95.3 fL 79.0-92.2 MEAN CORPUSCULAR HEMOGLOBIN (BEAKER) (test 27.3 pg 25.7-32.2 htrz=419) MEAN CORPUSCULAR HEMOGLOBIN CONC (BEAKER) (test 28.6 GM/DL 32.3-36.5 atar=929) RED CELL DISTRIBUTION WIDTH (BEAKER) (test 20.0 % 11.6-14.4 cqfg=538) PLATELET COUNT (BEAKER) (test eucb=177) 387 K/CU MM 150-450 MEAN PLATELET VOLUME (BEAKER) (test doos=863) 10.2 fL 9.4-12.4 NUCLEATED RED BLOOD CELLS (BEAKER) (test 0 /100 WBC 0-0 csho=328) NEUTROPHILS RELATIVE PERCENT (BEAKER) (test 76 % kfei=936) LYMPHOCYTES RELATIVE PERCENT (BEAKER) (test 12 % fdms=512) MONOCYTES RELATIVE PERCENT (BEAKER) (test 9 % kwgj=855) EOSINOPHILS RELATIVE PERCENT (BEAKER) (test 2 % iubx=886) BASOPHILS RELATIVE PERCENT (BEAKER) (test 1 % grxi=123) NEUTROPHILS ABSOLUTE COUNT (BEAKER) (test 6.98 K/ L 1.78-5.38 gluv=706) LYMPHOCYTES ABSOLUTE COUNT (BEAKER) (test 1.10 K/ L 1.32-3.57 xnlf=810) MONOCYTES ABSOLUTE COUNT (BEAKER) (test 0.79 K/ L 0.30-0.82 mahs=368) EOSINOPHILS ABSOLUTE COUNT (BEAKER) (test 0.17 K/ L 0.04-0.54 rwzd=043) BASOPHILS ABSOLUTE COUNT (BEAKER) (test 0.06 K/ L 0.01-0.08 ekmp=571) IMMATURE GRANULOCYTES-RELATIVE PERCENT (BEAKER) 1 % 0-1 (test wjiv=9682) POCT-GLUCOSE [id number] 21:25:00 Test Item Value Reference Range Comments POC-GLUCOSE METER (BEAKER) 144 mg/dL 70-110 TESTED AT [address] (test oyzi=7837) [facility] [address] POCT-GLUCOSE [id number] 17:34:00 Test Item Value Reference Range Comments POC-GLUCOSE METER (BEAKER) 155 mg/dL 70-110 TESTED AT [address] (test rkqw=1217) [facility] [address] POCT-GLUCOSE [id number] 11:45:00 Test Item Value Reference Range Comments POC-GLUCOSE METER (BEAKER) 114 mg/dL 70-110 TESTED AT [address] (test vxqd=7589) [facility] [address] POCT-GLUCOSE [id number] 07:56:00 Test Item Value Reference Range Comments POC-GLUCOSE METER (BEAKER) 106 mg/dL 70-[address] [facility] [address] (test hvwt=2756) [facility] [address] BASIC METABOLIC [id number] 05:58:00 Test Item Value Reference Range Comments SODIUM (BEAKER) (test 137 meq/L 136-145 cnom=238) POTASSIUM (BEAKER) (test 4.6 meq/L 3.5-5.1 ponb=704) CHLORIDE (BEAKER) (test 110 meq/L 98-107 qxzi=545) CO2 (BEAKER) (test 18 meq/L 22-29 epul=044) BLOOD UREA NITROGEN 38 mg/dL 7-21 (BEAKER) (test byvf=282) CREATININE (BEAKER) (test 1.32 mg/dL 0.57-1.25 heiz=792) GLUCOSE RANDOM (BEAKER) 105 mg/dL 70-105 (test zkab=879) CALCIUM (BEAKER) (test 8.0 mg/dL 8.4-10.2 dmwz=582) EGFR (BEAKER) (test 53 mL/min/1.73 sq m ESTIMATED GFR IS NOT umln=9097) ACCURATE CREATININE CLEARANCE IN PREDICTING GLOMERULAR FILTRATION RATE. ESTIMATED GFR IS NOT APPLICABLE FOR DIALYSIS PATIENTS. CBC W/PLT COUNT & AUTO [id number] 05:42:00 Test Item Value Reference Range Comments WHITE BLOOD CELL COUNT (BEAKER) (test arkm=167) 9.1 K/ L 3.5-10.5 RED BLOOD CELL COUNT (BEAKER) (test ygir=314) 3.38 M/ L 4.63-6.08 HEMOGLOBIN (BEAKER) (test uddr=285) 9.2 GM/DL 13.7-17.5 HEMATOCRIT (BEAKER) (test fhxi=890) 31.5 % 40.1-51.0 MEAN CORPUSCULAR VOLUME (BEAKER) (test uqvc=162) 93.2 fL 79.0-92.2 MEAN CORPUSCULAR HEMOGLOBIN (BEAKER) (test 27.2 pg 25.7-32.2 ytug=436) MEAN CORPUSCULAR HEMOGLOBIN CONC (BEAKER) (test 29.2 GM/DL 32.3-36.5 sofh=067) RED CELL DISTRIBUTION WIDTH (BEAKER) (test 19.4 % 11.6-14.4 vliv=299) PLATELET COUNT (BEAKER) (test ufqx=474) 379 K/CU MM 150-450 MEAN PLATELET VOLUME (BEAKER) (test qlti=481) 9.9 fL 9.4-12.4 NUCLEATED RED BLOOD CELLS (BEAKER) (test 0 /100 WBC 0-0 zbrb=552) NEUTROPHILS RELATIVE PERCENT (BEAKER) (test 70 % syll=312) LYMPHOCYTES RELATIVE PERCENT (BEAKER) (test 18 % slgv=920) MONOCYTES RELATIVE PERCENT (BEAKER) (test 7 % zupr=539) EOSINOPHILS RELATIVE PERCENT (BEAKER) (test 3 % yxvt=838) BASOPHILS RELATIVE PERCENT (BEAKER) (test 1 % ezqf=753) NEUTROPHILS ABSOLUTE COUNT (BEAKER) (test 6.33 K/ L 1.78-5.38 ytzb=499) LYMPHOCYTES ABSOLUTE COUNT (BEAKER) (test 1.65 K/ L 1.32-3.57 zkwi=995) MONOCYTES ABSOLUTE COUNT (BEAKER) (test 0.66 K/ L 0.30-0.82 ldsk=317) EOSINOPHILS ABSOLUTE COUNT (BEAKER) (test 0.28 K/ L 0.04-0.54 nhap=245) BASOPHILS ABSOLUTE COUNT (BEAKER) (test 0.07 K/ L 0.01-0.08 uahf=118) IMMATURE GRANULOCYTES-RELATIVE PERCENT (BEAKER) 1 % 0-1 (test nmal=4748) POCT-GLUCOSE [id number] 21:38:00 Test Item Value Reference Range Comments POC-GLUCOSE METER (BEAKER) 124 mg/dL 70-110 TESTED AT [address] (test wqmi=5076) [facility] [address] POCT-GLUCOSE [id number] 18:26:00 Test Item Value Reference Range Comments POC-GLUCOSE METER (BEAKER) 115 mg/dL 70-110 TESTED AT [address] (test schx=9881) [facility] [address] POCT-GLUCOSE [id number] 11:51:00 Test Item Value Reference Range Comments POC-GLUCOSE METER (BEAKER) 148 mg/dL 70-110 TESTED AT [address] (test upye=2332) [place] [id number] POCT-GLUCOSE [id number] 08:28:00 Test Item Value Reference Range Comments POC-GLUCOSE METER (BEAKER) 124 mg/dL 70-[address] [facility] [address] [facility] (test dkwa=1233) [facility] [address] BASIC METABOLIC [id number] 06:52:00 Test Item Value Reference Range Comments SODIUM (BEAKER) (test 138 meq/L 136-145 reul=131) POTASSIUM (BEAKER) (test 4.4 meq/L 3.5-5.1 itut=035) CHLORIDE (BEAKER) (test 109 meq/L 98-107 hwiq=387) CO2 (BEAKER) (test 21 meq/L 22-29 mxdq=992) BLOOD UREA NITROGEN 48 mg/dL 7-21 (BEAKER) (test xoim=642) CREATININE (BEAKER) (test 1.40 mg/dL 0.57-1.25 uzsh=473) GLUCOSE RANDOM (BEAKER) 112 mg/dL 70-105 (test rifm=198) CALCIUM (BEAKER) (test 8.2 mg/dL 8.4-10.2 ykkn=678) EGFR (BEAKER) (test 50 mL/min/1.73 sq m ESTIMATED GFR IS NOT uvuh=1920) ACCURATE CREATININE CLEARANCE IN PREDICTING GLOMERULAR FILTRATION RATE. ESTIMATED GFR IS NOT APPLICABLE FOR DIALYSIS PATIENTS. CBC W/PLT COUNT & AUTO [id number] 06:19:00 Test Item Value Reference Range Comments WHITE BLOOD CELL COUNT (BEAKER) (test cqgn=685) 9.2 K/ L 3.5-10.5 RED BLOOD CELL COUNT (BEAKER) (test nprd=861) 3.32 M/ L 4.63-6.08 HEMOGLOBIN (BEAKER) (test jqls=508) 9.2 GM/DL 13.7-17.5 HEMATOCRIT (BEAKER) (test svpi=577) 31.3 % 40.1-51.0 MEAN CORPUSCULAR VOLUME (BEAKER) (test qtdv=875) 94.3 fL 79.0-92.2 MEAN CORPUSCULAR HEMOGLOBIN (BEAKER) (test 27.7 pg 25.7-32.2 bfrs=635) MEAN CORPUSCULAR HEMOGLOBIN CONC (BEAKER) (test 29.4 GM/DL 32.3-36.5 dnml=346) RED CELL DISTRIBUTION WIDTH (BEAKER) (test 19.5 % 11.6-14.4 tptv=142) PLATELET COUNT (BEAKER) (test aggz=797) 420 K/CU MM 150-450 MEAN PLATELET VOLUME (BEAKER) (test yzas=299) 10.1 fL 9.4-12.4 NUCLEATED RED BLOOD CELLS (BEAKER) (test 0 /100 WBC 0-0 vlbc=316) NEUTROPHILS RELATIVE PERCENT (BEAKER) (test 68 % hoqi=456) LYMPHOCYTES RELATIVE PERCENT (BEAKER) (test 19 % awwy=321) MONOCYTES RELATIVE PERCENT (BEAKER) (test 9 % vtak=452) EOSINOPHILS RELATIVE PERCENT (BEAKER) (test 3 % jwax=780) BASOPHILS RELATIVE PERCENT (BEAKER) (test 1 % lrrl=942) NEUTROPHILS ABSOLUTE COUNT (BEAKER) (test 6.25 K/ L 1.78-5.38 xwkg=785) LYMPHOCYTES ABSOLUTE COUNT (BEAKER) (test 1.72 K/ L 1.32-3.57 wcgg=639) MONOCYTES ABSOLUTE COUNT (BEAKER) (test 0.80 K/ L 0.30-0.82 vrwy=606) EOSINOPHILS ABSOLUTE COUNT (BEAKER) (test 0.29 K/ L 0.04-0.54 lpma=249) BASOPHILS ABSOLUTE COUNT (BEAKER) (test 0.07 K/ L 0.01-0.08 zjqv=202) IMMATURE GRANULOCYTES-RELATIVE PERCENT (BEAKER) 1 % 0-1 (test kvvf=0943) POCT-GLUCOSE [id number] 21:24:00 Test Item Value Reference Range Comments POC-GLUCOSE METER (BEAKER) 153 mg/dL 70-110 TESTED AT [address] (test keln=6565) [place] [id number] POCT-GLUCOSE [id number] 16:21:00 Test Item Value Reference Range Comments POC-GLUCOSE METER (BEAKER) 177 mg/dL 70-110 TESTED AT [address] (test gptb=9849) [place] [id number] AFB CULTURE + [id number] 12:45:00 Test Item Value Reference Range Comments CULTURE (BEAKER) (test No acid-fast bacilli isolated wobg=8771) in 42 days AFB SMEAR (BEAKER) (test No acid fast bacilli seen xqsr=640) POCT-GLUCOSE [id number] 12:07:00 Test Item Value Reference Range Comments POC-GLUCOSE METER (BEAKER) 141 mg/dL 70-[address] [facility] [address] [facility] (test hkro=5492) [facility] [address] POCT-GLUCOSE [id number] 07:48:00 Test Item Value Reference Range Comments POC-GLUCOSE METER (BEAKER) 141 mg/dL 70-110 TESTED AT [place] [id number] [facility] (test idcy=8144) [facility] [address] BASIC METABOLIC [id number] 04:55:00 Test Item Value Reference Range Comments SODIUM (BEAKER) (test 137 meq/L 136-145 bdje=151) POTASSIUM (BEAKER) (test 4.5 meq/L 3.5-5.1 nxwi=372) CHLORIDE (BEAKER) (test 107 meq/L 98-107 haqz=282) CO2 (BEAKER) (test 21 meq/L 22-29 xnsj=691) BLOOD UREA NITROGEN 47 mg/dL 7-21 (BEAKER) (test bfzh=009) CREATININE (BEAKER) (test 1.32 mg/dL 0.57-1.25 bdhi=663) GLUCOSE RANDOM (BEAKER) 111 mg/dL 70-105 (test rfsy=234) CALCIUM (BEAKER) (test 8.2 mg/dL 8.4-10.2 tsiw=948) EGFR (BEAKER) (test 53 mL/min/1.73 sq m ESTIMATED GFR IS NOT ixah=1388) ACCURATE CREATININE CLEARANCE IN PREDICTING GLOMERULAR FILTRATION RATE. ESTIMATED GFR IS NOT APPLICABLE FOR DIALYSIS PATIENTS. CBC W/PLT COUNT & AUTO [id number] 04:44:00 Test Item Value Reference Range Comments WHITE BLOOD CELL COUNT (BEAKER) (test ytfr=133) 9.4 K/ L 3.5-10.5 RED BLOOD CELL COUNT (BEAKER) (test jdiw=752) 3.36 M/ L 4.63-6.08 HEMOGLOBIN (BEAKER) (test jivl=551) 9.2 GM/DL 13.7-17.5 HEMATOCRIT (BEAKER) (test olbp=194) 31.4 % 40.1-51.0 MEAN CORPUSCULAR VOLUME (BEAKER) (test hdsn=585) 93.5 fL 79.0-92.2 MEAN CORPUSCULAR HEMOGLOBIN (BEAKER) (test 27.4 pg 25.7-32.2 sqhj=377) MEAN CORPUSCULAR HEMOGLOBIN CONC (BEAKER) (test 29.3 GM/DL 32.3-36.5 myiq=974) RED CELL DISTRIBUTION WIDTH (BEAKER) (test 19.6 % 11.6-14.4 thlx=693) PLATELET COUNT (BEAKER) (test zila=555) 432 K/CU MM 150-450 MEAN PLATELET VOLUME (BEAKER) (test huhs=765) 10.0 fL 9.4-12.4 NUCLEATED RED BLOOD CELLS (BEAKER) (test 0 /100 WBC 0-0 zjxq=670) NEUTROPHILS RELATIVE PERCENT (BEAKER) (test 69 % prxr=007) LYMPHOCYTES RELATIVE PERCENT (BEAKER) (test 18 % pyhw=216) MONOCYTES RELATIVE PERCENT (BEAKER) (test 8 % irsg=284) EOSINOPHILS RELATIVE PERCENT (BEAKER) (test 3 % ignd=568) BASOPHILS RELATIVE PERCENT (BEAKER) (test 1 % edjo=634) NEUTROPHILS ABSOLUTE COUNT (BEAKER) (test 6.48 K/ L 1.78-5.38 mrcj=557) LYMPHOCYTES ABSOLUTE COUNT (BEAKER) (test 1.68 K/ L 1.32-3.57 qgim=871) MONOCYTES ABSOLUTE COUNT (BEAKER) (test 0.76 K/ L 0.30-0.82 vdlf=520) EOSINOPHILS ABSOLUTE COUNT (BEAKER) (test 0.29 K/ L 0.04-0.54 wgjn=376) BASOPHILS ABSOLUTE COUNT (BEAKER) (test 0.07 K/ L 0.01-0.08 vecn=247) IMMATURE GRANULOCYTES-RELATIVE PERCENT (BEAKER) 1 % 0-1 (test ydle=2787) POCT-GLUCOSE [id number] 21:14:00 Test Item Value Reference Range Comments POC-GLUCOSE METER (BEAKER) 151 mg/dL 70-110 TESTED AT [address] (test aetb=9202) [facility] [address] POCT-GLUCOSE [id number] 17:35:00 Test Item Value Reference Range Comments POC-GLUCOSE METER (BEAKER) 111 mg/dL 70-110 TESTED AT [address] (test sutn=4977) [facility] [address] POCT-GLUCOSE [id number] 13:31:00 Test Item Value Reference Range Comments POC-GLUCOSE METER (BEAKER) 141 mg/dL 70-[address] [facility] [address] [facility] (test szmc=1050) [facility] [address] POCT-GLUCOSE [id number] 08:31:00 Test Item Value Reference Range Comments POC-GLUCOSE METER (BEAKER) 112 mg/dL 70-[address] [facility] [address] [facility] (test xbyv=0942) [facility] [address] BASIC METABOLIC [id number] 06:01:00 Test Item Value Reference Range Comments SODIUM (BEAKER) (test 138 meq/L 136-145 iozj=653) POTASSIUM (BEAKER) (test 4.6 meq/L 3.5-5.1 docl=600) CHLORIDE (BEAKER) (test 109 meq/L 98-107 fqcr=792) CO2 (BEAKER) (test 21 meq/L 22-29 caeq=070) BLOOD UREA NITROGEN 41 mg/dL 7-21 (BEAKER) (test kvpw=705) CREATININE (BEAKER) (test 1.35 mg/dL 0.57-1.25 ynst=896) GLUCOSE RANDOM (BEAKER) 111 mg/dL 70-105 (test afth=005) CALCIUM (BEAKER) (test 8.3 mg/dL 8.4-10.2 ebaw=796) EGFR (BEAKER) (test 52 mL/min/1.73 sq m ESTIMATED GFR IS NOT ogqs=2977) ACCURATE CREATININE CLEARANCE IN PREDICTING GLOMERULAR FILTRATION RATE. ESTIMATED GFR IS NOT APPLICABLE FOR DIALYSIS PATIENTS. CBC W/PLT COUNT & AUTO [id number] 05:43:00 Test Item Value Reference Range Comments WHITE BLOOD CELL COUNT (BEAKER) (test jlqn=123) 8.9 K/ L 3.5-10.5 RED BLOOD CELL COUNT (BEAKER) (test spvy=803) 3.42 M/ L 4.63-6.08 HEMOGLOBIN (BEAKER) (test oboh=226) 9.4 GM/DL 13.7-17.5 HEMATOCRIT (BEAKER) (test ijkn=312) 33.0 % 40.1-51.0 MEAN CORPUSCULAR VOLUME (BEAKER) (test wrpx=960) 96.5 fL 79.0-92.2 MEAN CORPUSCULAR HEMOGLOBIN (BEAKER) (test 27.5 pg 25.7-32.2 wzmp=127) MEAN CORPUSCULAR HEMOGLOBIN CONC (BEAKER) (test 28.5 GM/DL 32.3-36.5 tdhe=006) RED CELL DISTRIBUTION WIDTH (BEAKER) (test 19.4 % 11.6-14.4 mojv=060) PLATELET COUNT (BEAKER) (test wfzm=816) 420 K/CU MM 150-450 MEAN PLATELET VOLUME (BEAKER) (test sjkx=418) 10.0 fL 9.4-12.4 NUCLEATED RED BLOOD CELLS (BEAKER) (test 0 /100 WBC 0-0 uqnw=387) NEUTROPHILS RELATIVE PERCENT (BEAKER) (test 69 % bgpx=623) LYMPHOCYTES RELATIVE PERCENT (BEAKER) (test 18 % zjuu=732) MONOCYTES RELATIVE PERCENT (BEAKER) (test 9 % qbrv=306) EOSINOPHILS RELATIVE PERCENT (BEAKER) (test 3 % dswz=906) BASOPHILS RELATIVE PERCENT (BEAKER) (test 1 % xvsa=749) NEUTROPHILS ABSOLUTE COUNT (BEAKER) (test 6.09 K/ L 1.78-5.38 ehse=210) LYMPHOCYTES ABSOLUTE COUNT (BEAKER) (test 1.57 K/ L 1.32-3.57 tkes=012) MONOCYTES ABSOLUTE COUNT (BEAKER) (test 0.77 K/ L 0.30-0.82 hxmu=515) EOSINOPHILS ABSOLUTE COUNT (BEAKER) (test 0.26 K/ L 0.04-0.54 omjx=488) BASOPHILS ABSOLUTE COUNT (BEAKER) (test 0.07 K/ L 0.01-0.08 ebrh=391) IMMATURE GRANULOCYTES-RELATIVE PERCENT (BEAKER) 1 % 0-1 (test vrrz=1252) POCT-GLUCOSE [id number] 22:00:00 Test Item Value Reference Range Comments POC-GLUCOSE METER (BEAKER) 126 mg/dL 70-110 TESTED AT [address] (test wwly=1879) [facility] [address] POCT-GLUCOSE [id number] 17:08:00 Test Item Value Reference Range Comments POC-GLUCOSE METER (BEAKER) 179 mg/dL 70-110 TESTED AT [address] (test fvsz=4143) [facility] [address] POCT-GLUCOSE [id number] 12:10:00 Test Item Value Reference Range Comments POC-GLUCOSE METER (BEAKER) 128 mg/dL 70-[address] [facility] [address] [facility] (test zjuf=5205) [facility] [address] POCT-GLUCOSE [id number] 07:38:00 Test Item Value Reference Range Comments POC-GLUCOSE METER (BEAKER) 127 mg/dL 70-[address] [facility] [address] [facility] (test euvv=3573) [facility] [address] BASIC METABOLIC [id number] 04:23:00 Test Item Value Reference Range Comments SODIUM (BEAKER) (test 137 meq/L 136-145 wxgs=701) POTASSIUM (BEAKER) (test 4.4 meq/L 3.5-5.1 oqte=868) CHLORIDE (BEAKER) (test 106 meq/L 98-107 ywfr=381) CO2 (BEAKER) (test 22 meq/L 22-29 rtwy=712) BLOOD UREA NITROGEN 39 mg/dL 7-21 (BEAKER) (test qyjx=755) CREATININE (BEAKER) (test 1.45 mg/dL 0.57-1.25 bsxq=488) GLUCOSE RANDOM (BEAKER) 122 mg/dL 70-105 (test hwah=995) CALCIUM (BEAKER) (test 8.2 mg/dL 8.4-10.2 qpzm=608) EGFR (BEAKER) (test 48 mL/min/1.73 sq m ESTIMATED GFR IS NOT bshl=2115) ACCURATE CREATININE CLEARANCE IN PREDICTING GLOMERULAR FILTRATION RATE. ESTIMATED GFR IS NOT APPLICABLE FOR DIALYSIS PATIENTS. CBC W/PLT COUNT & AUTO [id number] 04:06:00 Test Item Value Reference Range Comments WHITE BLOOD CELL COUNT (BEAKER) (test abul=381) 10.4 K/ L 3.5-10.5 RED BLOOD CELL COUNT (BEAKER) (test leso=849) 3.33 M/ L 4.63-6.08 HEMOGLOBIN (BEAKER) (test lvfe=336) 9.3 GM/DL 13.7-17.5 HEMATOCRIT (BEAKER) (test ckuu=506) 31.3 % 40.1-51.0 MEAN CORPUSCULAR VOLUME (BEAKER) (test njqt=981) 94.0 fL 79.0-92.2 MEAN CORPUSCULAR HEMOGLOBIN (BEAKER) (test 27.9 pg 25.7-32.2 rdtd=936) MEAN CORPUSCULAR HEMOGLOBIN CONC (BEAKER) (test 29.7 GM/DL 32.3-36.5 plkt=530) RED CELL DISTRIBUTION WIDTH (BEAKER) (test 19.0 % 11.6-14.4 twgt=392) PLATELET COUNT (BEAKER) (test mkwb=680) 427 K/CU MM 150-450 MEAN PLATELET VOLUME (BEAKER) (test tpvo=047) 9.4 fL 9.4-12.4 NUCLEATED RED BLOOD CELLS (BEAKER) (test 0 /100 WBC 0-0 awnv=374) NEUTROPHILS RELATIVE PERCENT (BEAKER) (test 72 % fyqj=625) LYMPHOCYTES RELATIVE PERCENT (BEAKER) (test 15 % uilx=687) MONOCYTES RELATIVE PERCENT (BEAKER) (test 10 % igaq=451) EOSINOPHILS RELATIVE PERCENT (BEAKER) (test 2 % gcrl=468) BASOPHILS RELATIVE PERCENT (BEAKER) (test 1 % dsan=156) NEUTROPHILS ABSOLUTE COUNT (BEAKER) (test 7.44 K/ L 1.78-5.38 jgrg=123) LYMPHOCYTES ABSOLUTE COUNT (BEAKER) (test 1.55 K/ L 1.32-3.57 jeix=020) MONOCYTES ABSOLUTE COUNT (BEAKER) (test 0.99 K/ L 0.30-0.82 mxfm=610) EOSINOPHILS ABSOLUTE COUNT (BEAKER) (test 0.24 K/ L 0.04-0.54 ezgt=060) BASOPHILS ABSOLUTE COUNT (BEAKER) (test 0.05 K/ L 0.01-0.08 ouhf=201) IMMATURE GRANULOCYTES-RELATIVE PERCENT (BEAKER) 1 % 0-1 (test irhc=1590) POCT-GLUCOSE [id number] 21:40:00 Test Item Value Reference Range Comments POC-GLUCOSE METER (BEAKER) 139 mg/dL 70-110 TESTED AT [address] (test vosq=7889) [facility] [address] POCT-GLUCOSE [id number] 17:42:00 Test Item Value Reference Range Comments POC-GLUCOSE METER (BEAKER) 131 mg/dL 70-110 TESTED AT [address] (test gblf=1796) [facility] [address] POCT-GLUCOSE [id number] 11:35:00 Test Item Value Reference Range Comments POC-GLUCOSE METER (BEAKER) 141 mg/dL 70-[address] [facility] [address] [facility] (test xxlg=1951) [facility] [address] POCT-GLUCOSE [id number] 08:03:00 Test Item Value Reference Range Comments POC-GLUCOSE METER (BEAKER) 125 mg/dL 70-[address] [facility] [address] [facility] (test vulp=1568) [facility] [address] BASIC METABOLIC [id number] 05:36:00 Test Item Value Reference Range Comments SODIUM (BEAKER) (test 138 meq/L 136-145 zdmy=398) POTASSIUM (BEAKER) (test 4.5 meq/L 3.5-5.1 abik=888) CHLORIDE (BEAKER) (test 106 meq/L 98-107 wdbz=053) CO2 (BEAKER) (test 23 meq/L 22-29 alyq=999) BLOOD UREA NITROGEN 41 mg/dL 7-21 (BEAKER) (test gsib=444) CREATININE (BEAKER) (test 1.55 mg/dL 0.57-1.25 yvdq=763) GLUCOSE RANDOM (BEAKER) 115 mg/dL 70-105 (test sxge=167) CALCIUM (BEAKER) (test 8.5 mg/dL 8.4-10.2 ffph=363) EGFR (BEAKER) (test 44 mL/min/1.73 sq m ESTIMATED GFR IS NOT syiy=1990) ACCURATE CREATININE CLEARANCE IN PREDICTING GLOMERULAR FILTRATION RATE. ESTIMATED GFR IS NOT APPLICABLE FOR DIALYSIS PATIENTS. CBC W/PLT COUNT & AUTO [id number] 03:42:00 Test Item Value Reference Range Comments WHITE BLOOD CELL COUNT (BEAKER) (test uoha=261) 10.2 K/ L 3.5-10.5 RED BLOOD CELL COUNT (BEAKER) (test vxza=667) 3.57 M/ L 4.63-6.08 HEMOGLOBIN (BEAKER) (test lvhs=946) 10.0 GM/DL 13.7-17.5 HEMATOCRIT (BEAKER) (test vpvj=071) 33.2 % 40.1-51.0 MEAN CORPUSCULAR VOLUME (BEAKER) (test tmtp=650) 93.0 fL 79.0-92.2 MEAN CORPUSCULAR HEMOGLOBIN (BEAKER) (test 28.0 pg 25.7-32.2 zajf=018) MEAN CORPUSCULAR HEMOGLOBIN CONC (BEAKER) (test 30.1 GM/DL 32.3-36.5 vbya=449) RED CELL DISTRIBUTION WIDTH (BEAKER) (test 18.9 % 11.6-14.4 ogdp=446) PLATELET COUNT (BEAKER) (test udiz=805) 479 K/CU MM 150-450 MEAN PLATELET VOLUME (BEAKER) (test kztw=362) 10.2 fL 9.4-12.4 NUCLEATED RED BLOOD CELLS (BEAKER) (test 0 /100 WBC 0-0 azpp=700) NEUTROPHILS RELATIVE PERCENT (BEAKER) (test 70 % zerd=334) LYMPHOCYTES RELATIVE PERCENT (BEAKER) (test 17 % fgyq=604) MONOCYTES RELATIVE PERCENT (BEAKER) (test 8 % qsxb=169) EOSINOPHILS RELATIVE PERCENT (BEAKER) (test 3 % nhls=680) BASOPHILS RELATIVE PERCENT (BEAKER) (test 1 % phxo=797) NEUTROPHILS ABSOLUTE COUNT (BEAKER) (test 7.12 K/ L 1.78-5.38 pine=387) LYMPHOCYTES ABSOLUTE COUNT (BEAKER) (test 1.74 K/ L 1.32-3.57 pmge=958) MONOCYTES ABSOLUTE COUNT (BEAKER) (test 0.82 K/ L 0.30-0.82 tslb=290) EOSINOPHILS ABSOLUTE COUNT (BEAKER) (test 0.30 K/ L 0.04-0.54 uouq=884) BASOPHILS ABSOLUTE COUNT (BEAKER) (test 0.08 K/ L 0.01-0.08 udjf=028) IMMATURE GRANULOCYTES-RELATIVE PERCENT (BEAKER) 1 % 0-1 (test eibv=2285) POCT-GLUCOSE [id number] 21:24:00 Test Item Value Reference Range Comments POC-GLUCOSE METER (BEAKER) 137 mg/dL 70-110 TESTED AT [address] (test bwoa=4032) [facility] [address] POCT-GLUCOSE [id number] 17:12:00 Test Item Value Reference Range Comments POC-GLUCOSE METER (BEAKER) 152 mg/dL 70-110 TESTED AT [address] (test mghh=9720) [facility] [address] POCT-GLUCOSE [id number] 11:57:00 Test Item Value Reference Range Comments POC-GLUCOSE METER (BEAKER) 151 mg/dL 70-110 TESTED AT [address] (test bobl=5097) [facility] [address] BASIC METABOLIC [id number] 07:24:00 Test Item Value Reference Range Comments SODIUM (BEAKER) (test 136 meq/L 136-145 nufl=420) POTASSIUM (BEAKER) (test 4.8 meq/L 3.5-5.1 Specimen slightly xhbb=476) hemolyzed CHLORIDE (BEAKER) (test 105 meq/L 98-107 azre=299) CO2 (BEAKER) (test 20 meq/L 22-29 xbau=105) BLOOD UREA NITROGEN 44 mg/dL 7-21 (BEAKER) (test moea=993) CREATININE (BEAKER) (test 1.65 mg/dL 0.57-1.25 Specimen slightly arhj=672) hemolyzed GLUCOSE RANDOM (BEAKER) 105 mg/dL 70-105 (test jhol=989) CALCIUM (BEAKER) (test 8.7 mg/dL 8.4-10.2 hzux=253) EGFR (BEAKER) (test 41 mL/min/1.73 sq m ESTIMATED GFR IS NOT mxuv=5410) ACCURATE CREATININE CLEARANCE IN PREDICTING GLOMERULAR FILTRATION RATE. ESTIMATED GFR IS NOT APPLICABLE FOR DIALYSIS PATIENTS. POCT-GLUCOSE [id number] 06:53:00 Test Item Value Reference Range Comments POC-GLUCOSE METER (BEAKER) 184 mg/dL 70-110 TESTED AT [address] (test xxbo=2370) [place] [address] CBC W/PLT COUNT & AUTO [id number] 06:01:00 Test Item Value Reference Range Comments WHITE BLOOD CELL COUNT (BEAKER) (test jfha=948) 9.2 K/ L 3.5-10.5 RED BLOOD CELL COUNT (BEAKER) (test uatp=414) 3.58 M/ L 4.63-6.08 HEMOGLOBIN (BEAKER) (test oaxd=930) 9.8 GM/DL 13.7-17.5 HEMATOCRIT (BEAKER) (test wofc=906) 33.5 % 40.1-51.0 MEAN CORPUSCULAR VOLUME (BEAKER) (test yncc=089) 93.6 fL 79.0-92.2 MEAN CORPUSCULAR HEMOGLOBIN (BEAKER) (test 27.4 pg 25.7-32.2 jsdp=741) MEAN CORPUSCULAR HEMOGLOBIN CONC (BEAKER) (test 29.3 GM/DL 32.3-36.5 bvnp=361) RED CELL DISTRIBUTION WIDTH (BEAKER) (test 18.6 % 11.6-14.4 qykn=440) PLATELET COUNT (BEAKER) (test lknk=100) 466 K/CU MM 150-450 MEAN PLATELET VOLUME (BEAKER) (test bvyo=836) 10.2 fL 9.4-12.4 NUCLEATED RED BLOOD CELLS (BEAKER) (test 0 /100 WBC 0-0 yirn=882) NEUTROPHILS RELATIVE PERCENT (BEAKER) (test 71 % njbv=762) LYMPHOCYTES RELATIVE PERCENT (BEAKER) (test 16 % zahb=647) MONOCYTES RELATIVE PERCENT (BEAKER) (test 9 % oove=626) EOSINOPHILS RELATIVE PERCENT (BEAKER) (test 2 % kkww=341) BASOPHILS RELATIVE PERCENT (BEAKER) (test 1 % dsoo=232) NEUTROPHILS ABSOLUTE COUNT (BEAKER) (test 6.47 K/ L 1.78-5.38 qzau=565) LYMPHOCYTES ABSOLUTE COUNT (BEAKER) (test 1.46 K/ L 1.32-3.57 fkoc=227) MONOCYTES ABSOLUTE COUNT (BEAKER) (test 0.85 K/ L 0.30-0.82 tlhb=429) EOSINOPHILS ABSOLUTE COUNT (BEAKER) (test 0.22 K/ L 0.04-0.54 adzw=306) BASOPHILS ABSOLUTE COUNT (BEAKER) (test 0.08 K/ L 0.01-0.08 vocu=844) IMMATURE GRANULOCYTES-RELATIVE PERCENT (BEAKER) 1 % 0-1 (test ptcp=9997) POCT-GLUCOSE [id number] 21:15:00 Test Item Value Reference Range Comments POC-GLUCOSE METER (BEAKER) 133 mg/dL 70-110 TESTED AT [address] (test qlwh=3992) [facility] [address] POCT-GLUCOSE [id number] 17:01:00 Test Item Value Reference Range Comments POC-GLUCOSE METER (BEAKER) 136 mg/dL 70-110 TESTED AT [address] (test ejdr=9216) [facility] [address] POCT-GLUCOSE [id number] 12:12:00 Test Item Value Reference Range Comments POC-GLUCOSE METER (BEAKER) 158 mg/dL 70-[address] [facility] [address] [facility] (test vffr=1790) [facility] [address] POCT-GLUCOSE [id number] 07:35:00 Test Item Value Reference Range Comments POC-GLUCOSE METER (BEAKER) 132 mg/dL 70-[address] [facility] [address] [facility] (test mnxr=3863) [facility] [address] BASIC METABOLIC [id number] 05:58:00 Test Item Value Reference Range Comments SODIUM (BEAKER) (test 135 meq/L 136-145 zjqo=810) POTASSIUM (BEAKER) (test 4.1 meq/L 3.5-5.1 yder=209) CHLORIDE (BEAKER) (test 104 meq/L 98-107 euow=327) CO2 (BEAKER) (test 22 meq/L 22-29 nhkq=046) BLOOD UREA NITROGEN 41 mg/dL 7-21 (BEAKER) (test aksb=230) CREATININE (BEAKER) (test 1.60 mg/dL 0.57-1.25 reoj=250) GLUCOSE RANDOM (BEAKER) 119 mg/dL 70-105 (test kkzg=730) CALCIUM (BEAKER) (test 8.3 mg/dL 8.4-10.2 wonb=108) EGFR (BEAKER) (test 42 mL/min/1.73 sq m ESTIMATED GFR IS NOT mxcb=3367) ACCURATE CREATININE CLEARANCE IN PREDICTING GLOMERULAR FILTRATION RATE. ESTIMATED GFR IS NOT APPLICABLE FOR DIALYSIS PATIENTS. CBC W/PLT COUNT & AUTO [id number] 05:13:00 Test Item Value Reference Range Comments WHITE BLOOD CELL COUNT (BEAKER) (test hvux=310) 9.2 K/ L 3.5-10.5 RED BLOOD CELL COUNT (BEAKER) (test amkm=605) 3.50 M/ L 4.63-6.08 HEMOGLOBIN (BEAKER) (test jstb=004) 9.6 GM/DL 13.7-17.5 HEMATOCRIT (BEAKER) (test zrat=325) 32.3 % 40.1-51.0 MEAN CORPUSCULAR VOLUME (BEAKER) (test tlgn=994) 92.3 fL 79.0-92.2 MEAN CORPUSCULAR HEMOGLOBIN (BEAKER) (test 27.4 pg 25.7-32.2 whyu=849) MEAN CORPUSCULAR HEMOGLOBIN CONC (BEAKER) (test 29.7 GM/DL 32.3-36.5 jvjg=515) RED CELL DISTRIBUTION WIDTH (BEAKER) (test 18.5 % 11.6-14.4 zwrh=887) PLATELET COUNT (BEAKER) (test nrer=115) 447 K/CU MM 150-450 MEAN PLATELET VOLUME (BEAKER) (test uhsn=215) 10.0 fL 9.4-12.4 NUCLEATED RED BLOOD CELLS (BEAKER) (test 0 /100 WBC 0-0 dbuz=985) NEUTROPHILS RELATIVE PERCENT (BEAKER) (test 72 % esfp=308) LYMPHOCYTES RELATIVE PERCENT (BEAKER) (test 14 % zlvs=162) MONOCYTES RELATIVE PERCENT (BEAKER) (test 10 % flfl=471) EOSINOPHILS RELATIVE PERCENT (BEAKER) (test 3 % hhfb=370) BASOPHILS RELATIVE PERCENT (BEAKER) (test 1 % ujoc=052) NEUTROPHILS ABSOLUTE COUNT (BEAKER) (test 6.64 K/ L 1.78-5.38 kiqj=348) LYMPHOCYTES ABSOLUTE COUNT (BEAKER) (test 1.31 K/ L 1.32-3.57 ehxu=421) MONOCYTES ABSOLUTE COUNT (BEAKER) (test 0.88 K/ L 0.30-0.82 vruw=418) EOSINOPHILS ABSOLUTE COUNT (BEAKER) (test 0.26 K/ L 0.04-0.54 kjye=895) BASOPHILS ABSOLUTE COUNT (BEAKER) (test 0.05 K/ L 0.01-0.08 mich=626) IMMATURE GRANULOCYTES-RELATIVE PERCENT (BEAKER) 1 % 0-1 (test skzw=5442) POCT-GLUCOSE [id number] 21:04:00 Test Item Value Reference Range Comments POC-GLUCOSE METER (BEAKER) 146 mg/dL 70-110 TESTED AT [address] (test hgaw=0575) [facility] [address] POCT-GLUCOSE [id number] 17:46:00 Test Item Value Reference Range Comments POC-GLUCOSE METER (BEAKER) 131 mg/dL 70-110 TESTED AT [address] (test yfxo=9597) [facility] [address] POCT-GLUCOSE [id number] 12:39:00 Test Item Value Reference Range Comments POC-GLUCOSE METER (BEAKER) 148 mg/dL 70-[address] [facility] [address] [facility] (test wagm=2624) [facility] [address] POCT-GLUCOSE [id number] 07:56:00 Test Item Value Reference Range Comments POC-GLUCOSE METER (BEAKER) 128 mg/dL 70-[address] [facility] [address] [facility] (test poyl=5790) [facility] [address] BASIC METABOLIC [id number] 05:23:00 Test Item Value Reference Range Comments SODIUM (BEAKER) (test 136 meq/L 136-145 rdks=616) POTASSIUM (BEAKER) (test 4.1 meq/L 3.5-5.1 vwfi=163) CHLORIDE (BEAKER) (test 104 meq/L 98-107 vchq=250) CO2 (BEAKER) (test 22 meq/L 22-29 agfr=275) BLOOD UREA NITROGEN 38 mg/dL 7-21 (BEAKER) (test uvjv=704) CREATININE (BEAKER) (test 1.66 mg/dL 0.57-1.25 uwej=936) GLUCOSE RANDOM (BEAKER) 114 mg/dL 70-105 (test aine=094) CALCIUM (BEAKER) (test 8.3 mg/dL 8.4-10.2 rejg=278) EGFR (BEAKER) (test 41 mL/min/1.73 sq m ESTIMATED GFR IS NOT sqtv=9126) ACCURATE CREATININE CLEARANCE IN PREDICTING GLOMERULAR FILTRATION RATE. ESTIMATED GFR IS NOT APPLICABLE FOR DIALYSIS PATIENTS. CBC W/PLT COUNT & AUTO [id number] 05:05:00 Test Item Value Reference Range Comments WHITE BLOOD CELL COUNT (BEAKER) (test qkqh=167) 9.7 K/ L 3.5-10.5 RED BLOOD CELL COUNT (BEAKER) (test suey=262) 3.44 M/ L 4.63-6.08 HEMOGLOBIN (BEAKER) (test zbde=979) 9.6 GM/DL 13.7-17.5 HEMATOCRIT (BEAKER) (test xfeo=581) 32.2 % 40.1-51.0 MEAN CORPUSCULAR VOLUME (BEAKER) (test hqgy=018) 93.6 fL 79.0-92.2 MEAN CORPUSCULAR HEMOGLOBIN (BEAKER) (test 27.9 pg 25.7-32.2 vsdd=721) MEAN CORPUSCULAR HEMOGLOBIN CONC (BEAKER) (test 29.8 GM/DL 32.3-36.5 irmf=013) RED CELL DISTRIBUTION WIDTH (BEAKER) (test 18.3 % 11.6-14.4 gyyu=928) PLATELET COUNT (BEAKER) (test vmez=749) 429 K/CU MM 150-450 MEAN PLATELET VOLUME (BEAKER) (test xxxe=880) 9.9 fL 9.4-12.4 NUCLEATED RED BLOOD CELLS (BEAKER) (test 0 /100 WBC 0-0 iqgi=288) NEUTROPHILS RELATIVE PERCENT (BEAKER) (test 73 % cesx=454) LYMPHOCYTES RELATIVE PERCENT (BEAKER) (test 14 % jfqf=880) MONOCYTES RELATIVE PERCENT (BEAKER) (test 10 % ipqw=445) EOSINOPHILS RELATIVE PERCENT (BEAKER) (test 3 % zcam=912) BASOPHILS RELATIVE PERCENT (BEAKER) (test 1 % tdua=674) NEUTROPHILS ABSOLUTE COUNT (BEAKER) (test 7.02 K/ L 1.78-5.38 toyj=123) LYMPHOCYTES ABSOLUTE COUNT (BEAKER) (test 1.33 K/ L 1.32-3.57 ijff=403) MONOCYTES ABSOLUTE COUNT (BEAKER) (test 0.92 K/ L 0.30-0.82 akek=222) EOSINOPHILS ABSOLUTE COUNT (BEAKER) (test 0.25 K/ L 0.04-0.54 pvke=775) BASOPHILS ABSOLUTE COUNT (BEAKER) (test 0.06 K/ L 0.01-0.08 tvpc=723) IMMATURE GRANULOCYTES-RELATIVE PERCENT (BEAKER) 1 % 0-1 (test kteu=5123) POCT-GLUCOSE [id number] 21:28:00 Test Item Value Reference Range Comments POC-GLUCOSE METER (BEAKER) 125 mg/dL 70-110 TESTED AT [address] (test gcpo=1056) [facility] [address] POCT-GLUCOSE [id number] 19:02:00 Test Item Value Reference Range Comments POC-GLUCOSE METER (BEAKER) 129 mg/dL 70-110 TESTED AT [address] (test gqtq=8431) [facility] [address] POCT-GLUCOSE [id number] 14:06:00 Test Item Value Reference Range Comments POC-GLUCOSE METER (BEAKER) 162 mg/dL 70-[address] [facility] [address] [facility] (test bgao=0204) [facility] [address] POCT-GLUCOSE [id number] 08:16:00 Test Item Value Reference Range Comments POC-GLUCOSE METER (BEAKER) 140 mg/dL 70-[address] [facility] [address] [facility] (test ddyk=1437) [facility] [address] BASIC METABOLIC [id number] 05:17:00 Test Item Value Reference Range Comments SODIUM (BEAKER) (test 137 meq/L 136-145 cxxa=965) POTASSIUM (BEAKER) (test 3.8 meq/L 3.5-5.1 lqmr=840) CHLORIDE (BEAKER) (test 104 meq/L 98-107 jjtk=420) CO2 (BEAKER) (test 22 meq/L 22-29 drmr=046) BLOOD UREA NITROGEN 37 mg/dL 7-21 (BEAKER) (test gagg=772) CREATININE (BEAKER) (test 1.81 mg/dL 0.57-1.25 fhve=568) GLUCOSE RANDOM (BEAKER) 118 mg/dL 70-105 (test emis=003) CALCIUM (BEAKER) (test 8.5 mg/dL 8.4-10.2 qctn=641) EGFR (BEAKER) (test 37 mL/min/1.73 sq m ESTIMATED GFR IS NOT mwha=0466) ACCURATE CREATININE CLEARANCE IN PREDICTING GLOMERULAR FILTRATION RATE. ESTIMATED GFR IS NOT APPLICABLE FOR DIALYSIS PATIENTS. CBC W/PLT COUNT & AUTO [id number] 04:55:00 Test Item Value Reference Range Comments WHITE BLOOD CELL COUNT (BEAKER) (test antg=587) 10.4 K/ L 3.5-10.5 RED BLOOD CELL COUNT (BEAKER) (test ctyb=880) 3.42 M/ L 4.63-6.08 HEMOGLOBIN (BEAKER) (test jfcr=692) 9.6 GM/DL 13.7-17.5 HEMATOCRIT (BEAKER) (test dtnp=065) 31.9 % 40.1-51.0 MEAN CORPUSCULAR VOLUME (BEAKER) (test eivf=813) 93.3 fL 79.0-92.2 MEAN CORPUSCULAR HEMOGLOBIN (BEAKER) (test 28.1 pg 25.7-32.2 rtam=399) MEAN CORPUSCULAR HEMOGLOBIN CONC (BEAKER) (test 30.1 GM/DL 32.3-36.5 gxtf=707) RED CELL DISTRIBUTION WIDTH (BEAKER) (test 18.4 % 11.6-14.4 jxsi=651) PLATELET COUNT (BEAKER) (test hqhk=126) 453 K/CU MM 150-450 MEAN PLATELET VOLUME (BEAKER) (test dawn=806) 10.0 fL 9.4-12.4 NUCLEATED RED BLOOD CELLS (BEAKER) (test 0 /100 WBC 0-0 zrwg=736) NEUTROPHILS RELATIVE PERCENT (BEAKER) (test 74 % cmrr=584) LYMPHOCYTES RELATIVE PERCENT (BEAKER) (test 13 % yxut=141) MONOCYTES RELATIVE PERCENT (BEAKER) (test 9 % jlzl=336) EOSINOPHILS RELATIVE PERCENT (BEAKER) (test 3 % bvic=818) BASOPHILS RELATIVE PERCENT (BEAKER) (test 0 % pqay=900) NEUTROPHILS ABSOLUTE COUNT (BEAKER) (test 7.63 K/ L 1.78-5.38 cdtx=004) LYMPHOCYTES ABSOLUTE COUNT (BEAKER) (test 1.35 K/ L 1.32-3.57 otps=655) MONOCYTES ABSOLUTE COUNT (BEAKER) (test 0.97 K/ L 0.30-0.82 bjzw=682) EOSINOPHILS ABSOLUTE COUNT (BEAKER) (test 0.27 K/ L 0.04-0.54 sjjl=639) BASOPHILS ABSOLUTE COUNT (BEAKER) (test 0.04 K/ L 0.01-0.08 tciu=078) IMMATURE GRANULOCYTES-RELATIVE PERCENT (BEAKER) 1 % 0-1 (test ifzj=3017) POCT-GLUCOSE [id number] 22:33:00 Test Item Value Reference Range Comments POC-GLUCOSE METER (BEAKER) 165 mg/dL 70-110 TESTED AT [address] (test rmyj=9046) [facility] [address] POCT-GLUCOSE [id number] 16:58:00 Test Item Value Reference Range Comments POC-GLUCOSE METER (BEAKER) 126 mg/dL 70-110 TESTED AT [address] (test uews=3136) [facility] [address] POCT-GLUCOSE [id number] 11:51:00 Test Item Value Reference Range Comments POC-GLUCOSE METER (BEAKER) 209 mg/dL 70-[address] [facility] [address] [facility] (test gjav=3319) [facility] [address] POCT-GLUCOSE [id number] 08:03:00 Test Item Value Reference Range Comments POC-GLUCOSE METER (BEAKER) 150 mg/dL 70-[address] [facility] [address] [facility] (test isyq=6474) [facility] [address] [id number] 07:03:00 Test Item Value Reference Range Comments MAGNESIUM (BEAKER) (test 2.1 mg/dL 1.6-2.6 Specimen slightly hemolyzed snzv=955) BASIC METABOLIC [id number] 07:03:00 Test Item Value Reference Range Comments SODIUM (BEAKER) (test 135 meq/L 136-145 nujt=951) POTASSIUM (BEAKER) (test 4.2 meq/L 3.5-5.1 Specimen slightly uuxu=660) hemolyzed CHLORIDE (BEAKER) (test 101 meq/L 98-107 wdiv=571) CO2 (BEAKER) (test 24 meq/L 22-29 ptxu=743) BLOOD UREA NITROGEN 35 mg/dL 7-21 (BEAKER) (test rqyk=995) CREATININE (BEAKER) (test 1.71 mg/dL 0.57-1.25 Specimen slightly weyu=403) hemolyzed GLUCOSE RANDOM (BEAKER) 125 mg/dL 70-105 (test pehu=750) CALCIUM (BEAKER) (test 8.4 mg/dL 8.4-10.2 scnj=151) EGFR (BEAKER) (test 39 mL/min/1.73 sq m ESTIMATED GFR IS NOT swii=0653) ACCURATE CREATININE CLEARANCE IN PREDICTING GLOMERULAR FILTRATION RATE. ESTIMATED GFR IS NOT APPLICABLE FOR DIALYSIS PATIENTS. CBC W/PLT COUNT & AUTO [id number] 06:22:00 Test Item Value Reference Range Comments WHITE BLOOD CELL COUNT (BEAKER) (test qroq=975) 9.8 K/ L 3.5-10.5 RED BLOOD CELL COUNT (BEAKER) (test zlhj=908) 3.53 M/ L 4.63-6.08 HEMOGLOBIN (BEAKER) (test czxu=590) 9.6 GM/DL 13.7-17.5 HEMATOCRIT (BEAKER) (test demk=658) 32.8 % 40.1-51.0 MEAN CORPUSCULAR VOLUME (BEAKER) (test qovt=469) 92.9 fL 79.0-92.2 MEAN CORPUSCULAR HEMOGLOBIN (BEAKER) (test 27.2 pg 25.7-32.2 zrni=214) MEAN CORPUSCULAR HEMOGLOBIN CONC (BEAKER) (test 29.3 GM/DL 32.3-36.5 ojbp=847) RED CELL DISTRIBUTION WIDTH (BEAKER) (test 18.3 % 11.6-14.4 dtel=127) PLATELET COUNT (BEAKER) (test pivi=547) 482 K/CU MM 150-450 MEAN PLATELET VOLUME (BEAKER) (test sfef=269) 9.9 fL 9.4-12.4 NUCLEATED RED BLOOD CELLS (BEAKER) (test 0 /100 WBC 0-0 lyck=800) NEUTROPHILS RELATIVE PERCENT (BEAKER) (test 72 % bmgz=253) LYMPHOCYTES RELATIVE PERCENT (BEAKER) (test 13 % skpq=256) MONOCYTES RELATIVE PERCENT (BEAKER) (test 10 % dgsg=949) EOSINOPHILS RELATIVE PERCENT (BEAKER) (test 3 % pgml=864) BASOPHILS RELATIVE PERCENT (BEAKER) (test 1 % sjsm=390) NEUTROPHILS ABSOLUTE COUNT (BEAKER) (test 6.97 K/ L 1.78-5.38 nhla=427) LYMPHOCYTES ABSOLUTE COUNT (BEAKER) (test 1.31 K/ L 1.32-3.57 mrnt=154) MONOCYTES ABSOLUTE COUNT (BEAKER) (test 0.97 K/ L 0.30-0.82 ggoo=082) EOSINOPHILS ABSOLUTE COUNT (BEAKER) (test 0.31 K/ L 0.04-0.54 zdqs=037) BASOPHILS ABSOLUTE COUNT (BEAKER) (test 0.06 K/ L 0.01-0.08 utqc=349) IMMATURE GRANULOCYTES-RELATIVE PERCENT (BEAKER) 1 % 0-1 (test nshq=6953) ANAEROBIC [id number] 03:41:00 Test Item Value Reference Range Comments CULTURE (BEAKER) (test <1+ Anaerobic gram positive hhhy=3949) bacilliNon-viable for identification ANAEROBIC [id number] 03:38:00 Test Item Value Reference Range Comments CULTURE (BEAKER) (test yltw=8845) 2+ Bacteroides fragilis group POCT-GLUCOSE [id number] 22:50:00 Test Item Value Reference Range Comments POC-GLUCOSE METER (BEAKER) 151 mg/dL 70-110 TESTED AT [address] (test ooxx=4530) [facility] [address] POCT-GLUCOSE [id number] 17:47:00 Test Item Value Reference Range Comments POC-GLUCOSE METER (BEAKER) 165 mg/dL 70-110 TESTED AT [address] (test okus=9715) [facility] [address] POCT-GLUCOSE [id number] 12:57:00 Test Item Value Reference Range Comments POC-GLUCOSE METER (BEAKER) 122 mg/dL 70-110 TESTED AT [address] (test iizv=7065) [facility] [address] POCT-GLUCOSE [id number] 09:14:00 Test Item Value Reference Range Comments POC-GLUCOSE METER (BEAKER) 164 mg/dL 70-110 TESTED AT [address] (test vwly=1511) [facility] [address] BASIC METABOLIC [id number] 04:07:00 Test Item Value Reference Range Comments SODIUM (BEAKER) (test 135 meq/L 136-145 fmac=003) POTASSIUM (BEAKER) (test 3.7 meq/L 3.5-5.1 wugt=527) CHLORIDE (BEAKER) (test 101 meq/L 98-107 wfps=997) CO2 (BEAKER) (test 24 meq/L 22-29 jacj=050) BLOOD UREA NITROGEN 36 mg/dL 7-21 (BEAKER) (test ofex=900) CREATININE (BEAKER) (test 1.68 mg/dL 0.57-1.25 sbas=785) GLUCOSE RANDOM (BEAKER) 112 mg/dL 70-105 (test qprh=608) CALCIUM (BEAKER) (test 8.2 mg/dL 8.4-10.2 dqmf=341) EGFR (BEAKER) (test 40 mL/min/1.73 sq m ESTIMATED GFR IS NOT zpmv=2349) ACCURATE CREATININE CLEARANCE IN PREDICTING GLOMERULAR FILTRATION RATE. ESTIMATED GFR IS NOT APPLICABLE FOR DIALYSIS PATIENTS. CBC W/PLT COUNT & AUTO [id number] 03:48:00 Test Item Value Reference Range Comments WHITE BLOOD CELL COUNT (BEAKER) (test renr=211) 10.4 K/ L 3.5-10.5 RED BLOOD CELL COUNT (BEAKER) (test xawr=536) 3.37 M/ L 4.63-6.08 HEMOGLOBIN (BEAKER) (test weca=693) 9.4 GM/DL 13.7-17.5 HEMATOCRIT (BEAKER) (test odye=237) 31.1 % 40.1-51.0 MEAN CORPUSCULAR VOLUME (BEAKER) (test neag=178) 92.3 fL 79.0-92.2 MEAN CORPUSCULAR HEMOGLOBIN (BEAKER) (test 27.9 pg 25.7-32.2 svne=502) MEAN CORPUSCULAR HEMOGLOBIN CONC (BEAKER) (test 30.2 GM/DL 32.3-36.5 avja=249) RED CELL DISTRIBUTION WIDTH (BEAKER) (test 17.9 % 11.6-14.4 qmqn=026) PLATELET COUNT (BEAKER) (test nhbz=353) 461 K/CU MM 150-450 MEAN PLATELET VOLUME (BEAKER) (test kilp=229) 9.5 fL 9.4-12.4 NUCLEATED RED BLOOD CELLS (BEAKER) (test 0 /100 WBC 0-0 yuku=329) NEUTROPHILS RELATIVE PERCENT (BEAKER) (test 72 % mlgw=855) LYMPHOCYTES RELATIVE PERCENT (BEAKER) (test 13 % qbth=874) MONOCYTES RELATIVE PERCENT (BEAKER) (test 10 % zcxg=689) EOSINOPHILS RELATIVE PERCENT (BEAKER) (test 3 % uzxi=376) BASOPHILS RELATIVE PERCENT (BEAKER) (test 1 % isof=061) NEUTROPHILS ABSOLUTE COUNT (BEAKER) (test 7.51 K/ L 1.78-5.38 fvqx=355) LYMPHOCYTES ABSOLUTE COUNT (BEAKER) (test 1.35 K/ L 1.32-3.57 qltf=818) MONOCYTES ABSOLUTE COUNT (BEAKER) (test 1.03 K/ L 0.30-0.82 wvyf=166) EOSINOPHILS ABSOLUTE COUNT (BEAKER) (test 0.32 K/ L 0.04-0.54 inue=772) BASOPHILS ABSOLUTE COUNT (BEAKER) (test 0.05 K/ L 0.01-0.08 ebgb=522) IMMATURE GRANULOCYTES-RELATIVE PERCENT (BEAKER) 1 % 0-1 (test itwn=2523) BLOOD [id number] 00:00:00 Test Item Value Reference Range Comments CULTURE (BEAKER) (test nval=7686) No growth in 5 days BLOOD [id number] 00:00:00 Test Item Value Reference Range Comments CULTURE (BEAKER) (test lrty=3203) No growth in 5 days POCT-GLUCOSE [id number] 21:35:00 Test Item Value Reference Range Comments POC-GLUCOSE METER (BEAKER) 135 mg/dL 70-110 TESTED AT [address] (test bxdy=3517) [facility] [address] POCT-GLUCOSE [id number] 17:27:00 Test Item Value Reference Range Comments POC-GLUCOSE METER (BEAKER) 192 mg/dL 70-110 TESTED AT [address] (test iypp=7257) [place] [id number] POCT-GLUCOSE [id number] 12:19:00 Test Item Value Reference Range Comments POC-GLUCOSE METER (BEAKER) 200 mg/dL 70-110 TESTED AT [address] (test kfrw=7714) [place] [address] RAD, CHEST, 1 VIEW, NON [id number] 11:22:00Reason for exam:->shortness of breathFINAL REPORT Comparison: 09/06/2017 TECHNIQUE: Single view of the chest FINDINGS: Scattered atelectasis and/or scarring. There may be small left pleural effusion with adjacent airspace disease. Cardiac silhouette is prominent. IMPRESSION:. No significant interval change. Signed: Emerson Palacios MDReport Verified Date/Time: 09/07/2017 11:22:01 Reading Location: [address] Transitional Reading Room CBC W/PLT COUNT & AUTO [id number] 10:35:00 Test Item Value Reference Range Comments WHITE BLOOD CELL COUNT (BEAKER) (test mrbx=280) 12.5 K/ L 3.5-10.5 RED BLOOD CELL COUNT (BEAKER) (test rudd=056) 3.71 M/ L 4.63-6.08 HEMOGLOBIN (BEAKER) (test mlob=547) 10.5 GM/DL 13.7-17.5 HEMATOCRIT (BEAKER) (test zxoh=195) 34.8 % 40.1-51.0 MEAN CORPUSCULAR VOLUME (BEAKER) (test kped=898) 93.8 fL 79.0-92.2 MEAN CORPUSCULAR HEMOGLOBIN (BEAKER) (test 28.3 pg 25.7-32.2 nord=460) MEAN CORPUSCULAR HEMOGLOBIN CONC (BEAKER) (test 30.2 GM/DL 32.3-36.5 iywi=470) RED CELL DISTRIBUTION WIDTH (BEAKER) (test 18.2 % 11.6-14.4 yoiu=236) PLATELET COUNT (BEAKER) (test xwxv=022) 497 K/CU MM 150-450 MEAN PLATELET VOLUME (BEAKER) (test artd=149) 9.6 fL 9.4-12.4 NUCLEATED RED BLOOD CELLS (BEAKER) (test 0 /100 WBC 0-0 hvyo=083) NEUTROPHILS RELATIVE PERCENT (BEAKER) (test 79 % gumu=789) LYMPHOCYTES RELATIVE PERCENT (BEAKER) (test 9 % imoq=721) MONOCYTES RELATIVE PERCENT (BEAKER) (test 7 % uagu=956) EOSINOPHILS RELATIVE PERCENT (BEAKER) (test 2 % ywfx=325) BASOPHILS RELATIVE PERCENT (BEAKER) (test 0 % xyft=006) NEUTROPHILS ABSOLUTE COUNT (BEAKER) (test 9.94 K/ L 1.78-5.38 abis=340) LYMPHOCYTES ABSOLUTE COUNT (BEAKER) (test 1.16 K/ L 1.32-3.57 cxcg=781) MONOCYTES ABSOLUTE COUNT (BEAKER) (test 0.93 K/ L 0.30-0.82 xlyo=398) EOSINOPHILS ABSOLUTE COUNT (BEAKER) (test 0.26 K/ L 0.04-0.54 ghiv=937) BASOPHILS ABSOLUTE COUNT (BEAKER) (test 0.05 K/ L 0.01-0.08 jndp=678) IMMATURE GRANULOCYTES-RELATIVE PERCENT (BEAKER) 1 % 0-1 (test eymo=9025) POCT-GLUCOSE [id number] 07:25:00 Test Item Value Reference Range Comments POC-GLUCOSE METER (BEAKER) 139 mg/dL 70-[address] [facility] [address] [facility] (test hkhz=4061) [facility] [address] [id number] 04:19:00 Test Item Value Reference Range Comments MAGNESIUM (BEAKER) (test 2.0 mg/dL 1.6-2.6 Specimen slightly hemolyzed ovwx=752) [id number] 04:19:00 Test Item Value Reference Range Comments PHOSPHORUS (BEAKER) (test 3.7 mg/dL 2.3-4.7 Specimen slightly hemolyzed mrva=536) BASIC METABOLIC [id number] 04:19:00 Test Item Value Reference Range Comments SODIUM (BEAKER) (test 134 meq/L 136-145 smba=165) POTASSIUM (BEAKER) (test 4.5 meq/L 3.5-5.1 Specimen slightly ecfs=115) hemolyzed CHLORIDE (BEAKER) (test 102 meq/L 98-107 tlad=144) CO2 (BEAKER) (test 16 meq/L 22-29 qwnp=624) BLOOD UREA NITROGEN 40 mg/dL 7-21 (BEAKER) (test cwaz=237) CREATININE (BEAKER) (test 1.94 mg/dL 0.57-1.25 Specimen slightly qvry=979) hemolyzed GLUCOSE RANDOM (BEAKER) 107 mg/dL 70-105 (test noyh=302) CALCIUM (BEAKER) (test 8.5 mg/dL 8.4-10.2 senb=133) EGFR (BEAKER) (test 34 mL/min/1.73 sq m ESTIMATED GFR IS NOT ffey=4971) ACCURATE CREATININE CLEARANCE IN PREDICTING GLOMERULAR FILTRATION RATE. ESTIMATED GFR IS NOT APPLICABLE FOR DIALYSIS PATIENTS. POCT-GLUCOSE [id number] 21:41:00 Test Item Value Reference Range Comments POC-GLUCOSE METER (BEAKER) 148 mg/dL 70-110 TESTED AT [address] (test rtmq=2733) [place] [address] VANCOMYCIN LEVEL, [id number] 13:28:00 Test Item Value Reference Range Comments VANCOMYCIN RANDOM (BEAKER) (test pxrk=314) 19.2 ug/mL Reference Range: No NormalsPOCT-GLUCOSE [id number] 12:59:00 Test Item Value Reference Range Comments POC-GLUCOSE METER (BEAKER) 129 mg/dL 70-110 TESTED AT [place] [id number] [facility] (test wzhk=9265) [place] [id number] RAD, CHEST, 1 VIEW, NON [id number] 08:26:00Reason for exam:->shortness of breathFINAL REPORT HISTORY [...] Verified Date/Time : 09/06/2017 08:26:23 Reading Location: [address] Transitional Reading Room POCT- GLUCOSE [id number] 08:17:00 Test Item Value Reference Range Comments POC-GLUCOSE METER (BEAKER) 124 mg/dL 70-[address] [facility] [address] [facility] (test hqxi=5941) [facility] [address] CBC W/PLT COUNT & AUTO [id number] 05:36:00 Test Item Value Reference Range Comments WHITE BLOOD CELL COUNT (BEAKER) (test eczw=484) 10.3 K/ L 3.5-10.5 RED BLOOD CELL COUNT (BEAKER) (test zxob=570) 3.41 M/ L 4.63-6.08 HEMOGLOBIN (BEAKER) (test ktst=152) 9.4 GM/DL 13.7-17.5 HEMATOCRIT (BEAKER) (test uwvh=160) 31.5 % 40.1-51.0 MEAN CORPUSCULAR VOLUME (BEAKER) (test stiz=567) 92.4 fL 79.0-92.2 MEAN CORPUSCULAR HEMOGLOBIN (BEAKER) (test 27.6 pg 25.7-32.2 zhon=386) MEAN CORPUSCULAR HEMOGLOBIN CONC (BEAKER) (test 29.8 GM/DL 32.3-36.5 mthb=951) RED CELL DISTRIBUTION WIDTH (BEAKER) (test 18.5 % 11.6-14.4 tcjz=921) PLATELET COUNT (BEAKER) (test xuge=366) 511 K/CU MM 150-450 MEAN PLATELET VOLUME (BEAKER) (test vlqq=474) 9.9 fL 9.4-12.4 NUCLEATED RED BLOOD CELLS (BEAKER) (test 0 /100 WBC 0-0 uwvs=671) NEUTROPHILS RELATIVE PERCENT (BEAKER) (test 73 % vhwy=610) LYMPHOCYTES RELATIVE PERCENT (BEAKER) (test 12 % jzle=025) MONOCYTES RELATIVE PERCENT (BEAKER) (test 10 % wjwt=886) EOSINOPHILS RELATIVE PERCENT (BEAKER) (test 2 % azss=820) BASOPHILS RELATIVE PERCENT (BEAKER) (test 1 % rzbz=256) NEUTROPHILS ABSOLUTE COUNT (BEAKER) (test 7.50 K/ L 1.78-5.38 gsfg=117) LYMPHOCYTES ABSOLUTE COUNT (BEAKER) (test 1.20 K/ L 1.32-3.57 pevv=556) MONOCYTES ABSOLUTE COUNT (BEAKER) (test 1.04 K/ L 0.30-0.82 bgwp=463) EOSINOPHILS ABSOLUTE COUNT (BEAKER) (test 0.24 K/ L 0.04-0.54 myix=204) BASOPHILS ABSOLUTE COUNT (BEAKER) (test 0.05 K/ L 0.01-0.08 syvy=668) IMMATURE GRANULOCYTES-RELATIVE PERCENT (BEAKER) 3 % 0-1 (test jvyh=0055) [id number] 05:28:00 Test Item Value Reference Range Comments PHOSPHORUS (BEAKER) (test ysjl=365) 3.4 mg/dL 2.3-4.7 [id number] 05:28:00 Test Item Value Reference Range Comments MAGNESIUM (BEAKER) (test roue=476) 2.0 mg/dL 1.6-2.6 BASIC METABOLIC [id number] 05:28:00 Test Item Value Reference Range Comments SODIUM (BEAKER) (test 137 meq/L 136-145 wpbu=737) POTASSIUM (BEAKER) (test 4.0 meq/L 3.5-5.1 nvue=038) CHLORIDE (BEAKER) (test 97 meq/L 98-107 vrfq=406) CO2 (BEAKER) (test 28 meq/L 22-29 biko=046) BLOOD UREA NITROGEN 37 mg/dL 7-21 (BEAKER) (test eivp=445) CREATININE (BEAKER) (test 2.02 mg/dL 0.57-1.25 iavv=786) GLUCOSE RANDOM (BEAKER) 117 mg/dL 70-105 (test fqsu=415) CALCIUM (BEAKER) (test 8.4 mg/dL 8.4-10.2 mktu=838) EGFR (BEAKER) (test 32 mL/min/1.73 sq m ESTIMATED GFR IS NOT zdgn=6936) ACCURATE CREATININE CLEARANCE IN PREDICTING GLOMERULAR FILTRATION RATE. ESTIMATED GFR IS NOT APPLICABLE FOR DIALYSIS PATIENTS. [id number] 22:02:00 Test Item Value Reference Range Comments MAGNESIUM (BEAKER) (test odwa=515) 2.1 mg/dL 1.6-2.6 BASIC METABOLIC [id number] 22:02:00 Test Item Value Reference Range Comments SODIUM (BEAKER) (test 136 meq/L 136-145 seja=952) POTASSIUM (BEAKER) (test 4.3 meq/L 3.5-5.1 hvvh=982) CHLORIDE (BEAKER) (test 99 meq/L 98-107 oxwq=021) CO2 (BEAKER) (test 25 meq/L 22-29 tzjh=715) BLOOD UREA NITROGEN 36 mg/dL 7-21 (BEAKER) (test nhnq=250) CREATININE (BEAKER) (test 1.95 mg/dL 0.57-1.25 kjcc=040) GLUCOSE RANDOM (BEAKER) 133 mg/dL 70-105 (test hvkd=917) CALCIUM (BEAKER) (test 8.3 mg/dL 8.4-10.2 hwgw=515) EGFR (BEAKER) (test 34 mL/min/1.73 sq m ESTIMATED GFR IS NOT yogy=5889) ACCURATE CREATININE CLEARANCE IN PREDICTING GLOMERULAR FILTRATION RATE. ESTIMATED GFR IS NOT APPLICABLE FOR DIALYSIS PATIENTS. POCT-GLUCOSE [id number] 21:42:00 Test Item Value Reference Range Comments POC-GLUCOSE METER (BEAKER) 125 mg/dL 70-[address] [facility] [address] [facility] (test bmdm=9609) [facility] [address] POCT-GLUCOSE [id number] 18:41:00 Test Item Value Reference Range Comments POC-GLUCOSE METER (BEAKER) 150 mg/dL 70-110 TESTED AT [place] [id number] [facility] (test fsxj=3544) [facility] [address] POCT-GLUCOSE [id number] 17:53:00 Test Item Value Reference Range Comments POC-GLUCOSE METER (BEAKER) 127 mg/dL 70-[address] [facility] [address] [place] [address] (test rwyz=4934) [facility] [address] VANCOMYCIN LEVEL, [id number] 15:24:00 Test Item Value Reference Range Comments VANCOMYCIN TROUGH (BEAKER) (test esia=979) 27.4 ug/mL 10.0-20.0 Please draw trough 30 minutes prior to vancomycin dose on 09/05.BASIC METABOLIC [id number] 12:57:00 Test Item Value Reference Range Comments SODIUM (BEAKER) (test 136 meq/L 136-145 ncch=055) POTASSIUM (BEAKER) (test 3.9 meq/L 3.5-5.1 ndms=974) CHLORIDE (BEAKER) (test 100 meq/L 98-107 jjss=935) CO2 (BEAKER) (test 24 meq/L 22-29 bmzx=578) BLOOD UREA NITROGEN 34 mg/dL 7-21 (BEAKER) (test lkhg=858) CREATININE (BEAKER) (test 2.22 mg/dL 0.57-1.25 srtf=934) GLUCOSE RANDOM (BEAKER) 123 mg/dL 70-105 (test fqhg=949) CALCIUM (BEAKER) (test 8.4 mg/dL 8.4-10.2 snen=755) EGFR (BEAKER) (test 29 mL/min/1.73 sq m ESTIMATED GFR IS NOT zvbw=7899) ACCURATE CREATININE CLEARANCE IN PREDICTING GLOMERULAR FILTRATION RATE. ESTIMATED GFR IS NOT APPLICABLE FOR DIALYSIS PATIENTS. [id number] 12:46:00 Test Item Value Reference Range Comments MAGNESIUM (BEAKER) (test prht=104) 2.1 mg/dL 1.6-2.6 POCT-GLUCOSE [id number] 09:45:00 Test Item Value Reference Range Comments POC-GLUCOSE METER (BEAKER) 134 mg/dL 70-110 TESTED AT [address] (test xnwg=7377) [facility] [address] RAD, CHEST, 1 VIEW, NON [id number] 08:44:00Reason for exam:->shortness of breathFINAL REPORT Chest [...] MDReport Verified Date/Time: 09/05/2017 08:44:03 [facility] Rad[facility] URINE [id number] 08:13:00 Test Item Value Reference Range Comments CULTURE (BEAKER) (test pbmj=7541) No growth GRAM STAIN RESULT (BEAKER) (test 1+ WBCs urjo=1206) GRAM STAIN RESULT (BEAKER) (test No organisms seen edvv=78329) SURGICALLY OBTAINED CULTURE + GRAM [id number] 08:04:00 Test Item Value Reference Range Comments CULTURE (BEAKER) (test enzh=1187) No growth GRAM STAIN RESULT (BEAKER) (test <1+ WBCs gyxz=1847) GRAM STAIN RESULT (BEAKER) (test No organisms seen hkjl=08508) SURGICALLY OBTAINED CULTURE + GRAM [id number] 08:03:00 Test Item Value Reference Range Comments CULTURE (BEAKER) (test tfaz=0986) No growth GRAM STAIN RESULT (BEAKER) (test No WBCs rlbu=5175) GRAM STAIN RESULT (BEAKER) (test No organisms seen ocxb=24502) CBC WITH PLATELET COUNT + MANUAL [id number] 04:36:00 Test Item Value Reference Range Comments WHITE BLOOD CELL COUNT (BEAKER) (test popo=186) 10.1 K/ L 3.5-10.5 RED BLOOD CELL COUNT (BEAKER) (test chwc=369) 3.10 M/ L 4.63-6.08 HEMOGLOBIN (BEAKER) (test buju=478) 8.6 GM/DL 13.7-17.5 HEMATOCRIT (BEAKER) (test vjtj=876) 27.8 % 40.1-51.0 MEAN CORPUSCULAR VOLUME (BEAKER) (test qhkq=480) 89.7 fL 79.0-92.2 MEAN CORPUSCULAR HEMOGLOBIN (BEAKER) (test 27.7 pg 25.7-32.2 rnnp=978) MEAN CORPUSCULAR HEMOGLOBIN CONC (BEAKER) (test 30.9 GM/DL 32.3-36.5 dryt=878) RED CELL DISTRIBUTION WIDTH (BEAKER) (test 17.8 % 11.6-14.4 ujov=183) PLATELET COUNT (BEAKER) (test pwef=226) 439 K/CU MM 150-450 MEAN PLATELET VOLUME (BEAKER) (test liyp=870) 9.2 fL 9.4-12.4 NUCLEATED RED BLOOD CELLS (BEAKER) (test 1 /100 WBC 0-0 iaxn=842) IMMATURE GRANULOCYTES-RELATIVE PERCENT (BEAKER) 3 % 0-1 (test rvmo=6899) BASIC METABOLIC [id number] 03:37:00 Test Item Value Reference Range Comments SODIUM (BEAKER) (test 136 meq/L 136-145 jtvx=539) POTASSIUM (BEAKER) (test 3.8 meq/L 3.5-5.1 rdhq=880) CHLORIDE (BEAKER) (test 100 meq/L 98-107 pavm=643) CO2 (BEAKER) (test 24 meq/L 22-29 prrv=341) BLOOD UREA NITROGEN 35 mg/dL 7-21 (BEAKER) (test xcpp=246) CREATININE (BEAKER) (test 2.30 mg/dL 0.57-1.25 utdr=964) GLUCOSE RANDOM (BEAKER) 118 mg/dL 70-105 (test rlja=298) CALCIUM (BEAKER) (test 8.1 mg/dL 8.4-10.2 cbat=264) EGFR (BEAKER) (test 28 mL/min/1.73 sq m ESTIMATED GFR IS NOT xbuv=5214) ACCURATE CREATININE CLEARANCE IN PREDICTING GLOMERULAR FILTRATION RATE. ESTIMATED GFR IS NOT APPLICABLE FOR DIALYSIS PATIENTS. [id number] 03:31:00 Test Item Value Reference Range Comments PHOSPHORUS (BEAKER) (test jxwl=211) 3.6 mg/dL 2.3-4.7 [id number] 03:31:00 Test Item Value Reference Range Comments MAGNESIUM (BEAKER) (test ukec=997) 2.3 mg/dL 1.6-2.6 CBC W/PLT COUNT & AUTO [id number] 03:20:00 Test Item Value Reference Range Comments WHITE BLOOD CELL COUNT (BEAKER) (test wjxm=124) 10.1 K/ L 3.5-10.5 RED BLOOD CELL COUNT (BEAKER) (test gvtc=410) 3.10 M/ L 4.63-6.08 HEMOGLOBIN (BEAKER) (test pyza=296) 8.6 GM/DL 13.7-17.5 HEMATOCRIT (BEAKER) (test brra=632) 27.8 % 40.1-51.0 MEAN CORPUSCULAR VOLUME (BEAKER) (test bupz=402) 89.7 fL 79.0-92.2 MEAN CORPUSCULAR HEMOGLOBIN (BEAKER) (test 27.7 pg 25.7-32.2 nqff=503) MEAN CORPUSCULAR HEMOGLOBIN CONC (BEAKER) (test 30.9 GM/DL 32.3-36.5 sgro=506) RED CELL DISTRIBUTION WIDTH (BEAKER) (test 17.8 % 11.6-14.4 evai=900) PLATELET COUNT (BEAKER) (test ufno=050) 439 K/CU MM 150-450 MEAN PLATELET VOLUME (BEAKER) (test ycxe=204) 9.2 fL 9.4-12.4 NUCLEATED RED BLOOD CELLS (BEAKER) (test 1 /100 WBC 0-0 yhcl=061) IMMATURE GRANULOCYTES-RELATIVE PERCENT (BEAKER) 3 % 0-1 (test bhoa=2867) BASIC METABOLIC [id number] 22:33:00 Test Item Value Reference Range Comments SODIUM (BEAKER) (test 135 meq/L 136-145 rdqg=592) POTASSIUM (BEAKER) (test 3.8 meq/L 3.5-5.1 ocun=648) CHLORIDE (BEAKER) (test 101 meq/L 98-107 mkqo=993) CO2 (BEAKER) (test 24 meq/L 22-29 tpzc=787) BLOOD UREA NITROGEN 36 mg/dL 7-21 (BEAKER) (test wbbx=932) CREATININE (BEAKER) (test 2.26 mg/dL 0.57-1.25 zpkd=975) GLUCOSE RANDOM (BEAKER) 119 mg/dL 70-105 (test pxes=805) CALCIUM (BEAKER) (test 7.9 mg/dL 8.4-10.2 xprg=627) EGFR (BEAKER) (test 29 mL/min/1.73 sq m ESTIMATED GFR IS NOT eamr=6140) ACCURATE CREATININE CLEARANCE IN PREDICTING GLOMERULAR FILTRATION RATE. ESTIMATED GFR IS NOT APPLICABLE FOR DIALYSIS PATIENTS. [id number] 22:28:00 Test Item Value Reference Range Comments MAGNESIUM (BEAKER) (test sstr=254) 1.8 mg/dL 1.6-2.6 POCT-GLUCOSE [id number] 21:08:00 Test Item Value Reference Range Comments POC-GLUCOSE METER (BEAKER) 111 mg/dL 70-110 TESTED AT [address] (test zemu=1637) [place] [id number] CBC (HEMOGRAM ONLY)2017-09-04 19:09:00 Test Item Value Reference Range Comments WHITE BLOOD CELL COUNT (BEAKER) (test nrdo=600) 9.3 K/ L 3.5-10.5 RED BLOOD CELL COUNT (BEAKER) (test wypm=552) 3.02 M/ L 4.63-6.08 HEMOGLOBIN (BEAKER) (test ozkt=645) 8.5 GM/DL 13.7-17.5 HEMATOCRIT (BEAKER) (test crrv=909) 27.2 % 40.1-51.0 MEAN CORPUSCULAR VOLUME (BEAKER) (test dwsa=309) 90.1 fL 79.0-92.2 MEAN CORPUSCULAR HEMOGLOBIN (BEAKER) (test 28.1 pg 25.7-32.2 yeui=544) MEAN CORPUSCULAR HEMOGLOBIN CONC (BEAKER) (test 31.3 GM/DL 32.3-36.5 remw=890) RED CELL DISTRIBUTION WIDTH (BEAKER) (test 17.8 % 11.6-14.4 qend=132) PLATELET COUNT (BEAKER) (test yjyl=126) 463 K/CU MM 150-450 MEAN PLATELET VOLUME (BEAKER) (test wued=367) 9.3 fL 9.4-12.4 NUCLEATED RED BLOOD CELLS (BEAKER) (test 0 /100 WBC 0-0 bozu=901) POCT-GLUCOSE [id number] 17:44:00 Test Item Value Reference Range Comments POC-GLUCOSE METER (BEAKER) 139 mg/dL 70-110 TESTED AT [address] (test drks=1747) [place] [id number] POCT-GLUCOSE [id number] 11:39:00 Test Item Value Reference Range Comments POC-GLUCOSE METER (BEAKER) 142 mg/dL 70-[address] [facility] [address] (test xjnh=6704) [facility] [id number] BASIC METABOLIC [id number] 10:56:00 Test Item Value Reference Range Comments SODIUM (BEAKER) (test 135 meq/L 136-145 svrl=719) POTASSIUM (BEAKER) (test 3.9 meq/L 3.5-5.1 hemj=859) CHLORIDE (BEAKER) (test 102 meq/L 98-107 pqpp=444) CO2 (BEAKER) (test 24 meq/L 22-29 ojvk=922) BLOOD UREA NITROGEN 37 mg/dL 7-21 (BEAKER) (test urvk=353) CREATININE (BEAKER) (test 2.53 mg/dL 0.57-1.25 mhan=291) GLUCOSE RANDOM (BEAKER) 127 mg/dL 70-105 (test zrph=678) CALCIUM (BEAKER) (test 7.8 mg/dL 8.4-10.2 agez=608) EGFR (BEAKER) (test 25 mL/min/1.73 sq m ESTIMATED GFR IS NOT rrkg=1234) ACCURATE CREATININE CLEARANCE IN PREDICTING GLOMERULAR FILTRATION RATE. ESTIMATED GFR IS NOT APPLICABLE FOR DIALYSIS PATIENTS. B-TYPE NATRIURETIC FACTOR (BNP)2017-09-04 10:54:00 Test Item Value Reference Range Comments B-TYPE NATRIURETIC PEPTIDE (BEAKER) (test 360 pg/mL 0-100 spsd=203) [id number] 10:46:00 Test Item Value Reference Range Comments PHOSPHORUS (BEAKER) (test rtqa=839) 4.1 mg/dL 2.3-4.7 [id number] 10:46:00 Test Item Value Reference Range Comments MAGNESIUM (BEAKER) (test lyqz=858) 2.1 mg/dL 1.6-2.6 RAD, CHEST, 1 VIEW, NON [id number] 08:32:00Reason for exam:->shortness of breathShould this be [...] MDReport Verified Date/Time: 09/04/2017 08:32:13 Reading Location: [facility] Radiology Reading Room POCT-GLUCOSE [id number] 08: 02:00 Test Item Value Reference Range Comments POC-GLUCOSE METER (BEAKER) 144 mg/dL 70-[address] [facility] [address] [facility] (test rufq=4933) [facility] [address] BASIC METABOLIC [id number] 04:29:00 Test Item Value Reference Range Comments SODIUM (BEAKER) (test 133 meq/L 136-145 fmfh=593) POTASSIUM (BEAKER) (test 3.7 meq/L 3.5-5.1 tlxj=890) CHLORIDE (BEAKER) (test 101 meq/L 98-107 vvij=914) CO2 (BEAKER) (test 22 meq/L 22-29 ahgw=584) BLOOD UREA NITROGEN 37 mg/dL 7-21 (BEAKER) (test vbnh=926) CREATININE (BEAKER) (test 2.65 mg/dL 0.57-1.25 cjtj=990) GLUCOSE RANDOM (BEAKER) 136 mg/dL 70-105 (test sgls=645) CALCIUM (BEAKER) (test 7.6 mg/dL 8.4-10.2 msii=725) EGFR (BEAKER) (test 24 mL/min/1.73 sq m ESTIMATED GFR IS NOT srbc=5544) ACCURATE CREATININE CLEARANCE IN PREDICTING GLOMERULAR FILTRATION RATE. ESTIMATED GFR IS NOT APPLICABLE FOR DIALYSIS PATIENTS. [id number] 04:25:00 Test Item Value Reference Range Comments PHOSPHORUS (BEAKER) (test ilaq=448) 4.2 mg/dL 2.3-4.7 [id number] 04:25:00 Test Item Value Reference Range Comments MAGNESIUM (BEAKER) (test imgj=451) 2.0 mg/dL 1.6-2.6 CBC W/PLT COUNT & AUTO [id number] 03:30:00 Test Item Value Reference Range Comments WHITE BLOOD CELL COUNT (BEAKER) (test ixtm=659) 9.1 K/ L 3.5-10.5 RED BLOOD CELL COUNT (BEAKER) (test okfg=557) 2.54 M/ L 4.63-6.08 HEMOGLOBIN (BEAKER) (test rlpc=566) 7.0 GM/DL 13.7-17.5 HEMATOCRIT (BEAKER) (test nidh=252) 23.4 % 40.1-51.0 MEAN CORPUSCULAR VOLUME (BEAKER) (test zxin=991) 92.1 fL 79.0-92.2 MEAN CORPUSCULAR HEMOGLOBIN (BEAKER) (test 27.6 pg 25.7-32.2 llcr=325) MEAN CORPUSCULAR HEMOGLOBIN CONC (BEAKER) (test 29.9 GM/DL 32.3-36.5 hrax=031) RED CELL DISTRIBUTION WIDTH (BEAKER) (test 17.2 % 11.6-14.4 bnyd=814) PLATELET COUNT (BEAKER) (test euch=385) 407 K/CU MM 150-450 MEAN PLATELET VOLUME (BEAKER) (test avle=329) 9.2 fL 9.4-12.4 NUCLEATED RED BLOOD CELLS (BEAKER) (test 0 /100 WBC 0-0 xerv=450) NEUTROPHILS RELATIVE PERCENT (BEAKER) (test 75 % qksc=590) LYMPHOCYTES RELATIVE PERCENT (BEAKER) (test 10 % osxc=130) MONOCYTES RELATIVE PERCENT (BEAKER) (test 10 % tqix=569) EOSINOPHILS RELATIVE PERCENT (BEAKER) (test 1 % pxsk=453) BASOPHILS RELATIVE PERCENT (BEAKER) (test 0 % xhkb=477) NEUTROPHILS ABSOLUTE COUNT (BEAKER) (test 6.78 K/ L 1.78-5.38 bzkn=236) LYMPHOCYTES ABSOLUTE COUNT (BEAKER) (test 0.92 K/ L 1.32-3.57 ypfz=705) MONOCYTES ABSOLUTE COUNT (BEAKER) (test 0.89 K/ L 0.30-0.82 opps=185) EOSINOPHILS ABSOLUTE COUNT (BEAKER) (test 0.13 K/ L 0.04-0.54 rfkw=722) BASOPHILS ABSOLUTE COUNT (BEAKER) (test 0.03 K/ L 0.01-0.08 ysxa=143) IMMATURE GRANULOCYTES-RELATIVE PERCENT (BEAKER) 3 % 0-1 (test myid=1711) POCT-GLUCOSE [id number] 23:06:00 Test Item Value Reference Range Comments POC-GLUCOSE METER (BEAKER) 155 mg/dL 70-110 TESTED AT [address] (test ibii=8633) [place] [address] POCT-GLUCOSE [id number] 17:12:00 Test Item Value Reference Range Comments POC-GLUCOSE METER (BEAKER) 157 mg/dL 70-110 TESTED AT [address] (test yruv=2158) [place] [address] SPIN/CONCENTRATION [id number] 16:25:00 Test Item Value Reference Range Comments CONCENTRATION CHARGED (BEAKER) (test diom=7537) Done POCT-GLUCOSE [id number] 12:16:00 Test Item Value Reference Range Comments POC-GLUCOSE METER (BEAKER) 163 mg/dL 70-110 TESTED AT [address] (test ozbb=1378) [place] [address] [id number] 11:44:00 Test Item Value Reference Range Comments FERRITIN (BEAKER) (test ssxk=418) 400 ng/mL 5-275 IRON, TIBC, % SAT. (WITHOUT FERRITIN)2017-09-03 11:24:00 Test Item Value Reference Range Comments IRON (BEAKER) (test yzyi=973) 38 ug/dL 40-160 TOTAL IRON BINDING CAPACITY (BEAKER) (test 168 ug/dL 250-450 ybsr=763) IRON % SATURATION (2) (BEAKER) (test ygqa=0507) 23 % 20-55 RETICULOCYTE [id number] 11:10:00 Test Item Value Reference Range Comments RETICULOCYTE COUNT PCT (BEAKER) (test kmoj=086) 3.2 % 0.5-1.8 RAD, CHEST, 1 VIEW, NON [id number] 11:05:00Reason for exam:->shortness of breathFINAL REPORT Chest [...] MDReport Verified Date/Time: 09/03/2017 11:05:13 [facility] Radiology Reading [facility] CB (HEMOGRAM ONLY)2017-09-03 10:57:00 Test Item Value Reference Range Comments WHITE BLOOD CELL COUNT (BEAKER) (test wpri=886) 9.9 K/ L 3.5-10.5 RED BLOOD CELL COUNT (BEAKER) (test klqm=542) 2.71 M/ L 4.63-6.08 HEMOGLOBIN (BEAKER) (test pxmk=319) 7.6 GM/DL 13.7-17.5 HEMATOCRIT (BEAKER) (test ulap=267) 25.6 % 40.1-51.0 MEAN CORPUSCULAR VOLUME (BEAKER) (test vgbh=556) 94.5 fL 79.0-92.2 MEAN CORPUSCULAR HEMOGLOBIN (BEAKER) (test 28.0 pg 25.7-32.2 hyiy=142) MEAN CORPUSCULAR HEMOGLOBIN CONC (BEAKER) (test 29.7 GM/DL 32.3-36.5 kgug=569) RED CELL DISTRIBUTION WIDTH (BEAKER) (test 16.9 % 11.6-14.4 svzv=599) PLATELET COUNT (BEAKER) (test dybw=513) 438 K/CU MM 150-450 MEAN PLATELET VOLUME (BEAKER) (test fqso=746) 9.9 fL 9.4-12.4 NUCLEATED RED BLOOD CELLS (BEAKER) (test 0 /100 WBC 0-0 pvcv=188) HEMOGLOBIN AND [id number] 06:14:00 Test Item Value Reference Range Comments HEMOGLOBIN (BEAKER) (test znsq=780) 6.7 GM/DL 13.7-17.5 HEMATOCRIT (BEAKER) (test qulq=063) 23.0 % 40.1-51.0 POCT-GLUCOSE [id number] 06:08:00 Test Item Value Reference Range Comments POC-GLUCOSE METER (BEAKER) 155 mg/dL 70-[address] [facility] [address] (test cswm=3918) [facility] [address] BASIC METABOLIC [id number] 03:44:00 Test Item Value Reference Range Comments SODIUM (BEAKER) (test 136 meq/L 136-145 tung=580) POTASSIUM (BEAKER) (test 4.4 meq/L 3.5-5.1 miyw=186) CHLORIDE (BEAKER) (test 104 meq/L 98-107 fxgb=997) CO2 (BEAKER) (test 21 meq/L 22-29 idpp=473) BLOOD UREA NITROGEN 31 mg/dL 7-21 (BEAKER) (test jpqw=655) CREATININE (BEAKER) (test 2.73 mg/dL 0.57-1.25 sodq=841) GLUCOSE RANDOM (BEAKER) 156 mg/dL 70-105 (test ztrn=415) CALCIUM (BEAKER) (test 7.7 mg/dL 8.4-10.2 qphr=680) EGFR (BEAKER) (test 23 mL/min/1.73 sq m ESTIMATED GFR IS NOT jrjq=3109) ACCURATE CREATININE CLEARANCE IN PREDICTING GLOMERULAR FILTRATION RATE. ESTIMATED GFR IS NOT APPLICABLE FOR DIALYSIS PATIENTS. VANCOMYCIN LEVEL, [id number] 03:41:00 Test Item Value Reference Range Comments VANCOMYCIN RANDOM (BEAKER) (test kjso=621) 16.7 ug/mL Reference Range: No [id number] 03:40:00 Test Item Value Reference Range Comments PHOSPHORUS (BEAKER) (test aijz=533) 5.2 mg/dL 2.3-4.7 [id number] 03:40:00 Test Item Value Reference Range Comments MAGNESIUM (BEAKER) (test ygco=258) 1.7 mg/dL 1.6-2.6 CBC W/PLT COUNT & AUTO [id number] 03:39:00 Test Item Value Reference Range Comments WHITE BLOOD CELL COUNT (BEAKER) (test xzed=578) 8.6 K/ L 3.5-10.5 RED BLOOD CELL COUNT (BEAKER) (test byox=490) 2.50 M/ L 4.63-6.08 HEMOGLOBIN (BEAKER) (test fxgu=075) 6.9 GM/DL 13.7-17.5 HEMATOCRIT (BEAKER) (test krzn=333) 23.6 % 40.1-51.0 MEAN CORPUSCULAR VOLUME (BEAKER) (test lrcf=843) 94.4 fL 79.0-92.2 MEAN CORPUSCULAR HEMOGLOBIN (BEAKER) (test 27.6 pg 25.7-32.2 ivrz=584) MEAN CORPUSCULAR HEMOGLOBIN CONC (BEAKER) (test 29.2 GM/DL 32.3-36.5 shed=999) RED CELL DISTRIBUTION WIDTH (BEAKER) (test 17.2 % 11.6-14.4 vsbh=441) PLATELET COUNT (BEAKER) (test qnzd=464) 454 K/CU MM 150-450 MEAN PLATELET VOLUME (BEAKER) (test wrjk=412) 10.0 fL 9.4-12.4 NUCLEATED RED BLOOD CELLS (BEAKER) (test 0 /100 WBC 0-0 oecw=704) NEUTROPHILS RELATIVE PERCENT (BEAKER) (test 78 % yshv=809) LYMPHOCYTES RELATIVE PERCENT (BEAKER) (test 11 % uowe=069) MONOCYTES RELATIVE PERCENT (BEAKER) (test 10 % nouh=692) EOSINOPHILS RELATIVE PERCENT (BEAKER) (test 0 % fjxd=829) BASOPHILS RELATIVE PERCENT (BEAKER) (test 0 % etzd=642) NEUTROPHILS ABSOLUTE COUNT (BEAKER) (test 6.71 K/ L 1.78-5.38 usxn=997) LYMPHOCYTES ABSOLUTE COUNT (BEAKER) (test 0.93 K/ L 1.32-3.57 pdzx=138) MONOCYTES ABSOLUTE COUNT (BEAKER) (test 0.83 K/ L 0.30-0.82 vzxz=101) EOSINOPHILS ABSOLUTE COUNT (BEAKER) (test 0.02 K/ L 0.04-0.54 xkde=709) BASOPHILS ABSOLUTE COUNT (BEAKER) (test 0.01 K/ L 0.01-0.08 vdkv=548) IMMATURE GRANULOCYTES-RELATIVE PERCENT (BEAKER) 1 % 0-1 (test vzaj=9657) POCT-GLUCOSE [id number] 23:21:00 Test Item Value Reference Range Comments POC-GLUCOSE METER (BEAKER) 168 mg/dL 70-[address] [facility] [address] [facility] (test cngu=9267) [facility] [address] URINALYSIS W/ [id number] 22:42:00 Test Item Value Reference Range Comments COLOR (BEAKER) (test kgyu=823) Yellow CLARITY (BEAKER) (test rwdh=071) Hazy SPECIFIC GRAVITY UA (BEAKER) (test sljr=498) 1.018 1.001-1.035 PH UA (BEAKER) (test krrd=181) 5.0 5.0-8.0 PROTEIN UA (BEAKER) (test xcvp=663) 50 mg/dL Negative GLUCOSE UA (BEAKER) (test spjd=429) Negative Negative KETONES UA (BEAKER) (test hakp=582) Negative Negative BILIRUBIN UA (BEAKER) (test mqkr=013) Negative Negative BLOOD UA (BEAKER) (test eieq=952) Negative Negative NITRITE UA (BEAKER) (test wxas=109) Negative Negative LEUKOCYTE ESTERASE UA (BEAKER) (test jhgt=114) Large Negative UROBILINOGEN UA (BEAKER) (test codk=444) 2.0 mg/dL 0.2-1.0 RBC UA (BEAKER) (test ngun=035) 0 /HPF WBC UA (BEAKER) (test fhml=771) 45 /HPF MUCUS (BEAKER) (test qjaj=4222) Occasional SQUAMOUS EPITHELIAL (BEAKER) (test mcek=397) 1 /HPF SOURCE(BEAKER) (test qwgx=1533) BASIC METABOLIC [id number] 22:37:00 Test Item Value Reference Range Comments SODIUM (BEAKER) (test 135 meq/L 136-145 okxa=551) POTASSIUM (BEAKER) (test 4.6 meq/L 3.5-5.1 nsta=237) CHLORIDE (BEAKER) (test 105 meq/L 98-107 wwye=895) CO2 (BEAKER) (test 21 meq/L 22-29 etqg=829) BLOOD UREA NITROGEN 30 mg/dL 7-21 (BEAKER) (test zjfe=894) CREATININE (BEAKER) (test 2.40 mg/dL 0.57-1.25 wtan=930) GLUCOSE RANDOM (BEAKER) 158 mg/dL 70-105 (test zbkt=987) CALCIUM (BEAKER) (test 7.8 mg/dL 8.4-10.2 oogl=274) EGFR (BEAKER) (test 27 mL/min/1.73 sq m ESTIMATED GFR IS NOT rusu=8047) ACCURATE CREATININE CLEARANCE IN PREDICTING GLOMERULAR FILTRATION RATE. ESTIMATED GFR IS NOT APPLICABLE FOR DIALYSIS PATIENTS. [id number] 22:34:00 Test Item Value Reference Range Comments MAGNESIUM (BEAKER) (test vznp=134) 1.3 mg/dL 1.6-2.6 LACTIC ACID, ARTERIAL, WHOLE [id number] 22:30:00 Test Item Value Reference Range Comments LACTATE BLOOD ARTERIAL (2) (BEAKER) (test 1.9 mmol/L 0.5-2.2 mhge=6092) Effective 09/27/2015: Units/Reference Range ChangeNew: 0.5-2.2 mmol/L Previous: 5 -20 mg/dLHEPATIC FUNCTION [id number] 20:18:00 Test Item Value Reference Range Comments TOTAL PROTEIN (BEAKER) (test cuhz=826) 6.2 gm/dL 6.0-8.3 ALBUMIN (BEAKER) (test jjxw=7165) 2.4 g/dL 3.5-5.0 BILIRUBIN TOTAL (BEAKER) (test cwsz=555) 0.5 mg/dL 0.2-1.2 BILIRUBIN DIRECT (BEAKER) (test zjog=457) 0.3 mg/dL 0.1-0.5 ALKALINE PHOSPHATASE (BEAKER) (test szlg=485) 82 U/L 40-150 AST (SGOT) (BEAKER) (test ypav=501) 36 U/L 5-34 ALT (SGPT) (BEAKER) (test vdcm=091) 29 U/L 6-55 LACTIC ACID, VENOUS, WHOLE [id number] 20:13:00 Test Item Value Reference Range Comments LACTATE BLOOD VENOUS (2) (BEAKER) (test 2.0 mmol/L 0.5-2.2 iopj=1671) Effective 09/27/2015: Units/Reference Range ChangeNew: 0.5-2.2 mmol/L Previous: 5 -20 mg/dLBASIC METABOLIC [id number] 15:01:00 Test Item Value Reference Range Comments SODIUM (BEAKER) (test 135 meq/L 136-145 isaj=286) POTASSIUM (BEAKER) (test 4.3 meq/L 3.5-5.1 lupz=473) CHLORIDE (BEAKER) (test 102 meq/L 98-107 essm=809) CO2 (BEAKER) (test 22 meq/L 22-29 hefl=895) BLOOD UREA NITROGEN 27 mg/dL 7-21 (BEAKER) (test eymx=243) CREATININE (BEAKER) (test 1.97 mg/dL 0.57-1.25 mrkk=721) GLUCOSE RANDOM (BEAKER) 185 mg/dL 70-105 (test btrr=457) CALCIUM (BEAKER) (test 7.9 mg/dL 8.4-10.2 ckeq=263) EGFR (BEAKER) (test 33 mL/min/1.73 sq m ESTIMATED GFR IS NOT hdab=9281) ACCURATE CREATININE CLEARANCE IN PREDICTING GLOMERULAR FILTRATION RATE. ESTIMATED GFR IS NOT APPLICABLE FOR DIALYSIS PATIENTS. [id number] 14:58:00 Test Item Value Reference Range Comments PHOSPHORUS (BEAKER) (test bhjl=497) 5.2 mg/dL 2.3-4.7 [id number] 14:58:00 Test Item Value Reference Range Comments MAGNESIUM (BEAKER) (test fpwe=107) 1.4 mg/dL 1.6-2.6 BASIC METABOLIC [id number] 14:49:00 Test Item Value Reference Range Comments SODIUM (BEAKER) (test 134 meq/L 136-145 klus=212) POTASSIUM (BEAKER) (test 4.4 meq/L 3.5-5.1 hahp=121) CHLORIDE (BEAKER) (test 102 meq/L 98-107 izoz=533) CO2 (BEAKER) (test 22 meq/L 22-29 jqap=994) BLOOD UREA NITROGEN 27 mg/dL 7-21 (BEAKER) (test ubvt=123) CREATININE (BEAKER) (test 1.96 mg/dL 0.57-1.25 iwho=335) GLUCOSE RANDOM (BEAKER) 184 mg/dL 70-105 (test cvnn=862) CALCIUM (BEAKER) (test 7.9 mg/dL 8.4-10.2 fnlu=166) EGFR (BEAKER) (test 34 mL/min/1.73 sq m ESTIMATED GFR IS NOT arez=8582) ACCURATE CREATININE CLEARANCE IN PREDICTING GLOMERULAR FILTRATION RATE. ESTIMATED GFR IS NOT APPLICABLE FOR DIALYSIS PATIENTS. LACTIC ACID, ARTERIAL, WHOLE [id number] 14:35:00 Test Item Value Reference Range Comments LACTATE BLOOD ARTERIAL (2) (BEAKER) (test 2.6 mmol/L 0.5-2.2 rpum=4204) Effective 09/27/2015: Units/Reference Range ChangeNew: 0.5-2.2 mmol/L Previous: 5 -20 mg/dLPROTHROMBIN [id number] 14:27:00 Test Item Value Reference Range Comments PROTIME (BEAKER) (test wwza=106) 21.3 seconds 11.7-14.7 INR (BEAKER) (test nuor=452) 1.8 <=5.9 RECOMMENDED COUMADIN/WARFARIN INR THERAPY RANGESSTANDARD DOSE: 2.0 - 3.0 Includes: PROPHYLAXIS forvenous thrombosis, systemic embolization; TREATMENT for venous thrombosis and/or pulmonary embolus.HIGH RISK: Target INR is 2.5-3.5 for patients with mechanical heart valves.[id number] 14:27:00 Test Item Value Reference Range Comments PARTIAL THROMBOPLASTIN TIME (BEAKER) (test 37.6 seconds 22.5-36.0 troz=311) CBC W/PLT COUNT & AUTO [id number] 14:20:00 Test Item Value Reference Range Comments WHITE BLOOD CELL COUNT (BEAKER) (test ayan=921) 13.7 K/ L 3.5-10.5 RED BLOOD CELL COUNT (BEAKER) (test terr=899) 3.16 M/ L 4.63-6.08 HEMOGLOBIN (BEAKER) (test jkht=572) 8.8 GM/DL 13.7-17.5 HEMATOCRIT (BEAKER) (test bpgj=584) 29.9 % 40.1-51.0 MEAN CORPUSCULAR VOLUME (BEAKER) (test hftt=612) 94.6 fL 79.0-92.2 MEAN CORPUSCULAR HEMOGLOBIN (BEAKER) (test 27.8 pg 25.7-32.2 qmoq=429) MEAN CORPUSCULAR HEMOGLOBIN CONC (BEAKER) (test 29.4 GM/DL 32.3-36.5 pcaz=542) RED CELL DISTRIBUTION WIDTH (BEAKER) (test 16.8 % 11.6-14.4 eyhu=661) PLATELET COUNT (BEAKER) (test jlfy=441) 583 K/CU MM 150-450 MEAN PLATELET VOLUME (BEAKER) (test qgtm=886) 10.0 fL 9.4-12.4 NUCLEATED RED BLOOD CELLS (BEAKER) (test 0 /100 WBC 0-0 ltek=378) NEUTROPHILS RELATIVE PERCENT (BEAKER) (test 80 % feot=662) LYMPHOCYTES RELATIVE PERCENT (BEAKER) (test 7 % vzfh=394) MONOCYTES RELATIVE PERCENT (BEAKER) (test 11 % nrfb=800) EOSINOPHILS RELATIVE PERCENT (BEAKER) (test 0 % fucs=687) BASOPHILS RELATIVE PERCENT (BEAKER) (test 0 % oqtm=337) NEUTROPHILS ABSOLUTE COUNT (BEAKER) (test 11.04 K/ L 1.78-5.38 czjk=426) LYMPHOCYTES ABSOLUTE COUNT (BEAKER) (test 0.93 K/ L 1.32-3.57 kydk=025) MONOCYTES ABSOLUTE COUNT (BEAKER) (test 1.55 K/ L 0.30-0.82 rwur=092) EOSINOPHILS ABSOLUTE COUNT (BEAKER) (test 0.01 K/ L 0.04-0.54 uvwc=406) BASOPHILS ABSOLUTE COUNT (BEAKER) (test 0.01 K/ L 0.01-0.08 bbik=818) IMMATURE GRANULOCYTES-RELATIVE PERCENT (BEAKER) 1 % 0-1 (test bgno=5860) CBC W/PLT COUNT & AUTO [id number] 14:15:00 Test Item Value Reference Range Comments WHITE BLOOD CELL COUNT (BEAKER) (test aygn=813) 13.8 K/ L 3.5-10.5 RED BLOOD CELL COUNT (BEAKER) (test mwff=411) 3.22 M/ L 4.63-6.08 HEMOGLOBIN (BEAKER) (test ystj=304) 8.9 GM/DL 13.7-17.5 HEMATOCRIT (BEAKER) (test mfuz=458) 30.5 % 40.1-51.0 MEAN CORPUSCULAR VOLUME (BEAKER) (test pcqx=927) 94.7 fL 79.0-92.2 MEAN CORPUSCULAR HEMOGLOBIN (BEAKER) (test 27.6 pg 25.7-32.2 hast=713) MEAN CORPUSCULAR HEMOGLOBIN CONC (BEAKER) (test 29.2 GM/DL 32.3-36.5 fhro=634) RED CELL DISTRIBUTION WIDTH (BEAKER) (test 16.9 % 11.6-14.4 tayi=802) PLATELET COUNT (BEAKER) (test batr=255) 578 K/CU MM 150-450 MEAN PLATELET VOLUME (BEAKER) (test cduf=145) 9.9 fL 9.4-12.4 NUCLEATED RED BLOOD CELLS (BEAKER) (test 0 /100 WBC 0-0 adfh=911) NEUTROPHILS RELATIVE PERCENT (BEAKER) (test 82 % scsa=262) LYMPHOCYTES RELATIVE PERCENT (BEAKER) (test 6 % flzn=920) MONOCYTES RELATIVE PERCENT (BEAKER) (test 11 % qaez=681) EOSINOPHILS RELATIVE PERCENT (BEAKER) (test 0 % lvvh=488) BASOPHILS RELATIVE PERCENT (BEAKER) (test 0 % blop=105) NEUTROPHILS ABSOLUTE COUNT (BEAKER) (test 11.24 K/ L 1.78-5.38 iwef=181) LYMPHOCYTES ABSOLUTE COUNT (BEAKER) (test 0.86 K/ L 1.32-3.57 jjfz=978) MONOCYTES ABSOLUTE COUNT (BEAKER) (test 1.49 K/ L 0.30-0.82 rabh=418) EOSINOPHILS ABSOLUTE COUNT (BEAKER) (test 0.01 K/ L 0.04-0.54 mhum=800) BASOPHILS ABSOLUTE COUNT (BEAKER) (test 0.02 K/ L 0.01-0.08 bqab=136) IMMATURE GRANULOCYTES-RELATIVE PERCENT (BEAKER) 1 % 0-1 (test zysd=7362) POCT-GLUCOSE [id number] 13:21:00 Test Item Value Reference Range Comments POC-GLUCOSE METER (BEAKER) 208 mg/dL 70-110 TESTED AT [address] (test dzmc=6122) [facility] [address] RAD, CHEST, 1 VIEW, NON [id number] 11:57:00Reason for exam:->SOB, CHFFINAL REPORT Chest one [...] Location: [facility] Reading Room POCT-GLUCOSE [id number] 06:05:00 Test Item Value Reference Range Comments POC-GLUCOSE METER (BEAKER) 141 mg/dL 70-110 TESTED AT [address] (test ivzs=0091) [facility] [address] [id number] 06:04:00 Test Item Value Reference Range Comments PREALBUMIN (BEAKER) (test xqyt=086) 13 mg/dL 14-45 POCT-GLUCOSE [id number] 20:43:00 Test Item Value Reference Range Comments POC-GLUCOSE METER (BEAKER) 179 mg/dL 70-110 TESTED AT [address] (test vxmg=7907) [facility] [address] POCT-GLUCOSE [id number] 16:57:00 Test Item Value Reference Range Comments POC-GLUCOSE METER (BEAKER) 215 mg/dL 70-110 TESTED AT [address] (test lwjp=0988) [facility] [address] POCT-GLUCOSE [id number] 11:18:00 Test Item Value Reference Range Comments POC-GLUCOSE METER (BEAKER) 159 mg/dL 70-110 TESTED AT [address] (test ptsp=4864) [facility] [address] BASIC METABOLIC [id number] 07:33:00 Test Item Value Reference Range Comments SODIUM (BEAKER) (test 139 meq/L 136-145 nldc=462) POTASSIUM (BEAKER) (test 4.1 meq/L 3.5-5.1 cdtk=319) CHLORIDE (BEAKER) (test 104 meq/L 98-107 uyom=242) CO2 (BEAKER) (test 25 meq/L 22-29 nhzq=936) BLOOD UREA NITROGEN 20 mg/dL 7-21 (BEAKER) (test lpah=796) CREATININE (BEAKER) (test 1.26 mg/dL 0.57-1.25 yjej=335) GLUCOSE RANDOM (BEAKER) 99 mg/dL 70-105 (test ywyt=277) CALCIUM (BEAKER) (test 8.5 mg/dL 8.4-10.2 uahm=418) EGFR (BEAKER) (test 56 mL/min/1.73 sq m ESTIMATED GFR IS NOT gjym=4506) ACCURATE CREATININE CLEARANCE IN PREDICTING GLOMERULAR FILTRATION RATE. ESTIMATED GFR IS NOT APPLICABLE FOR DIALYSIS PATIENTS. CBC (HEMOGRAM ONLY)2017-09-01 06:13:00 Test Item Value Reference Range Comments WHITE BLOOD CELL COUNT (BEAKER) (test piaz=474) 6.4 K/ L 3.5-10.5 RED BLOOD CELL COUNT (BEAKER) (test qbem=461) 3.42 M/ L 4.63-6.08 HEMOGLOBIN (BEAKER) (test kjvo=444) 9.8 GM/DL 13.7-17.5 HEMATOCRIT (BEAKER) (test vdcl=931) 32.8 % 40.1-51.0 MEAN CORPUSCULAR VOLUME (BEAKER) (test afiq=329) 95.9 fL 79.0-92.2 MEAN CORPUSCULAR HEMOGLOBIN (BEAKER) (test 28.7 pg 25.7-32.2 jtza=784) MEAN CORPUSCULAR HEMOGLOBIN CONC (BEAKER) (test 29.9 GM/DL 32.3-36.5 gxvl=053) RED CELL DISTRIBUTION WIDTH (BEAKER) (test 16.7 % 11.6-14.4 bjcy=920) PLATELET COUNT (BEAKER) (test yowy=292) 391 K/CU MM 150-450 MEAN PLATELET VOLUME (BEAKER) (test jxor=193) 9.9 fL 9.4-12.4 NUCLEATED RED BLOOD CELLS (BEAKER) (test 0 /100 WBC 0-0 xwds=245) POCT-GLUCOSE [id number] 05:51:00 Test Item Value Reference Range Comments POC-GLUCOSE METER (BEAKER) 122 mg/dL 70-110 TESTED AT [address] (test ckni=2168) [facility] [address] POCT-GLUCOSE [id number] 20:13:00 Test Item Value Reference Range Comments POC-GLUCOSE METER (BEAKER) 212 mg/dL 70-110 TESTED AT [address] (test vwmt=1797) [facility] [address] POCT-GLUCOSE [id number] 16:30:00 Test Item Value Reference Range Comments POC-GLUCOSE METER (BEAKER) 181 mg/dL 70-110 TESTED AT [address] (test vskz=6927) [facility] [address] POCT-GLUCOSE [id number] 11:36:00 Test Item Value Reference Range Comments POC-GLUCOSE METER (BEAKER) 139 mg/dL 70-110 TESTED AT [address] (test xyoh=7226) [facility] [address] BASIC METABOLIC [id number] 06:56:00 Test Item Value Reference Range Comments SODIUM (BEAKER) (test 138 meq/L 136-145 qqqi=214) POTASSIUM (BEAKER) (test 3.6 meq/L 3.5-5.1 wzmi=510) CHLORIDE (BEAKER) (test 103 meq/L 98-107 monb=354) CO2 (BEAKER) (test 26 meq/L 22-29 wuwq=373) BLOOD UREA NITROGEN 19 mg/dL 7-21 (BEAKER) (test ziwz=571) CREATININE (BEAKER) (test 1.10 mg/dL 0.57-1.25 qzqr=323) GLUCOSE RANDOM (BEAKER) 97 mg/dL 70-105 (test mbyb=405) CALCIUM (BEAKER) (test 8.1 mg/dL 8.4-10.2 xlhf=172) EGFR (BEAKER) (test 65 mL/min/1.73 sq m ESTIMATED GFR IS NOT bhky=6863) ACCURATE CREATININE CLEARANCE IN PREDICTING GLOMERULAR FILTRATION RATE. ESTIMATED GFR IS NOT APPLICABLE FOR DIALYSIS PATIENTS. POCT-GLUCOSE [id number] 06:00:00 Test Item Value Reference Range Comments POC-GLUCOSE METER (BEAKER) 119 mg/dL 70-110 TESTED AT [address] (test dmrm=7562) [facility] [address] POCT-GLUCOSE [id number] 20:05:00 Test Item Value Reference Range Comments POC-GLUCOSE METER (BEAKER) 167 mg/dL 70-110 TESTED AT [address] (test fnmj=2081) [facility] [address] POCT-GLUCOSE [id number] 17:01:00 Test Item Value Reference Range Comments POC-GLUCOSE METER (BEAKER) 138 mg/dL 70-110 TESTED AT [address] (test rauc=7226) [place] [id number] POCT-GLUCOSE [id number] 12:07:00 Test Item Value Reference Range Comments POC-GLUCOSE METER (BEAKER) 201 mg/dL 70-110 TESTED AT [address] (test mdpq=9497) [place] [id number] POCT-GLUCOSE [id number] 06:11:00 Test Item Value Reference Range Comments POC-GLUCOSE METER (BEAKER) 147 mg/dL 70-110 TESTED AT [address] (test vxcp=3869) [place] [address] RAD, CHEST, 1 VIEW, NON [id number] 22:11:00Reason for exam:->sobShould this be performed at [...] MDReport Verified Date/Time: 08/29/2017 22:11:44 Reading Location: [facility] C013Y CT Body Reading Room POCT-GLUCOSE [id number] 20:49:00 Test Item Value Reference Range Comments POC-GLUCOSE METER (BEAKER) 144 mg/dL 70-110 TESTED AT [address] (test wwww=3535) [place] [id number] POCT-GLUCOSE [id number] 16:39:00 Test Item Value Reference Range Comments POC-GLUCOSE METER (BEAKER) 151 mg/dL 70-110 TESTED AT [address] (test dvgz=6096) [place] [address] FUNGUS CULTURE + [id number] 15:05:00 Test Item Value Reference Range Comments CULTURE (BEAKER) (test No fungus isolated in 28 days rlbi=1554) FUNGUS SMEAR (BEAKER) (test No fungi seen hdek=1002) POCT-GLUCOSE [id number] 11:50:00 Test Item Value Reference Range Comments POC-GLUCOSE METER (BEAKER) 166 mg/dL 70-[address] [facility] [address] [facility] (test qhlv=6863) [facility] [address] POCT-GLUCOSE [id number] 21:39:00 Test Item Value Reference Range Comments POC-GLUCOSE METER (BEAKER) 136 mg/dL 70-[address] [facility] [address] [facility] (test bxkh=1845) [facility] [address] COMPREHENSIVE METABOLIC [id number] 16:58:00 Test Item Value Reference Range Comments TOTAL PROTEIN (BEAKER) 6.6 gm/dL 6.0-8.3 (test tkbi=914) ALBUMIN (BEAKER) (test 2.6 g/dL 3.5-5.0 nwqf=6966) ALKALINE PHOSPHATASE 93 U/L 40-150 (BEAKER) (test biss=589) BILIRUBIN TOTAL (BEAKER) 0.4 mg/dL 0.2-1.2 (test idyw=822) SODIUM (BEAKER) (test 134 meq/L 136-145 sgsk=238) POTASSIUM (BEAKER) (test 3.5 meq/L 3.5-5.1 ohft=393) CHLORIDE (BEAKER) (test 98 meq/L 98-107 xcdt=977) CO2 (BEAKER) (test 25 meq/L 22-29 irvn=395) BLOOD UREA NITROGEN 28 mg/dL 7-21 (BEAKER) (test lpte=141) CREATININE (BEAKER) (test 1.36 mg/dL 0.57-1.25 ztzm=399) GLUCOSE RANDOM (BEAKER) 117 mg/dL 70-105 (test tmyt=951) CALCIUM (BEAKER) (test 8.1 mg/dL 8.4-10.2 ezqz=037) AST (SGOT) (BEAKER) (test 37 U/L 5-34 rdgs=912) ALT (SGPT) (BEAKER) (test 29 U/L 6-55 hfvr=402) EGFR (BEAKER) (test 51 mL/min/1.73 sq m ESTIMATED GFR IS NOT snzo=6858) ACCURATE CREATININE CLEARANCE IN PREDICTING GLOMERULAR FILTRATION RATE. ESTIMATED GFR IS NOT APPLICABLE FOR DIALYSIS PATIENTS. LACTIC ACID, VENOUS, WHOLE [id number] 16:52:00 Test Item Value Reference Range Comments LACTATE BLOOD VENOUS (2) (BEAKER) (test 1.2 mmol/L 0.5-2.2 siun=6981) Effective 09/27/2015: Units/Reference Range ChangeNew: 0.5-2.2 mmol/L Previous: 5 -20 mg/dLCBC W/PLT COUNT & AUTO [id number] 16:39:00 Test Item Value Reference Range Comments WHITE BLOOD CELL COUNT (BEAKER) (test gmcj=234) 6.6 K/ L 3.5-10.5 RED BLOOD CELL COUNT (BEAKER) (test dawd=549) 3.11 M/ L 4.63-6.08 HEMOGLOBIN (BEAKER) (test ixad=060) 9.0 GM/DL 13.7-17.5 HEMATOCRIT (BEAKER) (test nbrr=816) 30.1 % 40.1-51.0 MEAN CORPUSCULAR VOLUME (BEAKER) (test ngtc=116) 96.8 fL 79.0-92.2 MEAN CORPUSCULAR HEMOGLOBIN (BEAKER) (test 28.9 pg 25.7-32.2 puim=266) MEAN CORPUSCULAR HEMOGLOBIN CONC (BEAKER) (test 29.9 GM/DL 32.3-36.5 ylxx=578) RED CELL DISTRIBUTION WIDTH (BEAKER) (test 16.1 % 11.6-14.4 tnxm=115) PLATELET COUNT (BEAKER) (test bbgx=003) 367 K/CU MM 150-450 MEAN PLATELET VOLUME (BEAKER) (test fejz=333) 9.4 fL 9.4-12.4 NUCLEATED RED BLOOD CELLS (BEAKER) (test 0 /100 WBC 0-0 yegw=839) NEUTROPHILS RELATIVE PERCENT (BEAKER) (test 78 % whso=641) LYMPHOCYTES RELATIVE PERCENT (BEAKER) (test 12 % qgme=625) MONOCYTES RELATIVE PERCENT (BEAKER) (test 9 % vfzm=022) EOSINOPHILS RELATIVE PERCENT (BEAKER) (test 1 % ngkj=784) BASOPHILS RELATIVE PERCENT (BEAKER) (test 0 % rvvg=492) NEUTROPHILS ABSOLUTE COUNT (BEAKER) (test 5.18 K/ L 1.78-5.38 fkyd=338) LYMPHOCYTES ABSOLUTE COUNT (BEAKER) (test 0.79 K/ L 1.32-3.57 vado=227) MONOCYTES ABSOLUTE COUNT (BEAKER) (test 0.60 K/ L 0.30-0.82 zyva=973) EOSINOPHILS ABSOLUTE COUNT (BEAKER) (test 0.03 K/ L 0.04-0.54 uphl=160) BASOPHILS ABSOLUTE COUNT (BEAKER) (test 0.01 K/ L 0.01-0.08 dtxf=003) IMMATURE GRANULOCYTES-RELATIVE PERCENT (BEAKER) 1 % 0-1 (test afnc=6016) POCT-GLUCOSE [id number] 16:20:00 Test Item Value Reference Range Comments POC-GLUCOSE METER (BEAKER) 136 mg/dL 70-110 TESTED AT [address] (test hztd=5595) [place] [id number] POCT-GLUCOSE [id number] 11:45:00 Test Item Value Reference Range Comments POC-GLUCOSE METER (BEAKER) 157 mg/dL 70-110 TESTED AT [address] (test show=8195) [place] [address] POCT-GLUCOSE [id number] 06:31:00 Test Item Value Reference Range Comments POC-GLUCOSE METER (BEAKER) 131 mg/dL 70-110 TESTED AT [address] (test rbng=8287) [place] [address] POCT-GLUCOSE [id number] 20:28:00 Test Item Value Reference Range Comments POC-GLUCOSE METER (BEAKER) 173 mg/dL 70-110 TESTED AT [address] (test ldxd=2715) [place] [address] POCT-GLUCOSE [id number] 16:43:00 Test Item Value Reference Range Comments POC-GLUCOSE METER (BEAKER) 191 mg/dL 70-110 TESTED AT [address] (test yhww=5646) [place] [address] POCT-GLUCOSE [id number] 11:59:00 Test Item Value Reference Range Comments POC-GLUCOSE METER (BEAKER) 152 mg/dL 70-110 TESTED AT [address] (test yxxz=1775) [place] [address] RAD, CHEST, 1 VIEW, NON [id number] 11:08:00Reason for exam:-> dyspneaShould this be performed at the bedside?->YesFINAL REPORT Two frontal chest images compared to August 20 Discussion: There is cardiac prominence and pulmonary congestion with probable small left effusion. No pneumothorax. IMPRESSIONS: No change Signed: Taty Osborne MDReport Verified Date/Time: 08/27/2017 11:08:36 Reading Location: [facility] Reading Room 11 :08 AMPOCT-GLUCOSE [id number] 06:00:00 Test Item Value Reference Range Comments POC-GLUCOSE METER (BEAKER) 129 mg/dL 70-110 TESTED AT [address] (test kovw=3385) [facility] [address] [id number] 05:12:00 Test Item Value Reference Range Comments PREALBUMIN (BEAKER) (test oqhv=342) 10 mg/dL 14-45 POCT-GLUCOSE [id number] 20:50:00 Test Item Value Reference Range Comments POC-GLUCOSE METER (BEAKER) 177 mg/dL 70-110 TESTED AT [address] (test nyrd=2535) [place] [address] POCT-GLUCOSE [id number] 16:19:00 Test Item Value Reference Range Comments POC-GLUCOSE METER (BEAKER) 162 mg/dL 70-110 TESTED AT [address] (test cywn=1841) [place] [address] POCT-GLUCOSE [id number] 11:44:00 Test Item Value Reference Range Comments POC-GLUCOSE METER (BEAKER) 182 mg/dL 70-110 TESTED AT [address] (test plza=0571) [place] [address] POCT-GLUCOSE [id number] 06:07:00 Test Item Value Reference Range Comments POC-GLUCOSE METER (BEAKER) 120 mg/dL 70-110 TESTED AT [address] (test zzll=9946) [place] [address] POCT-GLUCOSE [id number] 20:48:00 Test Item Value Reference Range Comments POC-GLUCOSE METER (BEAKER) 172 mg/dL 70-110 TESTED AT [address] (test cdoy=9098) [place] [address] POCT-GLUCOSE [id number] 16:17:00 Test Item Value Reference Range Comments POC-GLUCOSE METER (BEAKER) 156 mg/dL 70-110 TESTED AT [address] (test dnjv=6990) [place] [address] POCT-GLUCOSE [id number] 11:33:00 Test Item Value Reference Range Comments POC-GLUCOSE METER (BEAKER) 203 mg/dL 70-[address] [facility] [address] [facility] (test ofob=7590) [facility] [address] HEPATIC FUNCTION [id number] 11:30:00 Test Item Value Reference Range Comments TOTAL PROTEIN (BEAKER) (test uapv=527) 6.5 gm/dL 6.0-8.3 ALBUMIN (BEAKER) (test fkao=3349) 2.6 g/dL 3.5-5.0 BILIRUBIN TOTAL (BEAKER) (test lryg=713) 0.4 mg/dL 0.2-1.2 BILIRUBIN DIRECT (BEAKER) (test jlxk=114) 0.3 mg/dL 0.1-0.5 ALKALINE PHOSPHATASE (BEAKER) (test xlfw=481) 105 U/L 40-150 AST (SGOT) (BEAKER) (test vwqo=591) 26 U/L 5-34 ALT (SGPT) (BEAKER) (test visd=189) 21 U/L 6-55 BASIC METABOLIC [id number] 07:01:00 Test Item Value Reference Range Comments SODIUM (BEAKER) (test 136 meq/L 136-145 kift=101) POTASSIUM (BEAKER) (test 3.7 meq/L 3.5-5.1 jvfi=786) CHLORIDE (BEAKER) (test 102 meq/L 98-107 jhjn=484) CO2 (BEAKER) (test 25 meq/L 22-29 wcng=306) BLOOD UREA NITROGEN 23 mg/dL 7-21 (BEAKER) (test fyxv=379) CREATININE (BEAKER) (test 1.22 mg/dL 0.57-1.25 gewz=042) GLUCOSE RANDOM (BEAKER) 120 mg/dL 70-105 (test tbig=084) CALCIUM (BEAKER) (test 8.4 mg/dL 8.4-10.2 ynuh=980) EGFR (BEAKER) (test 58 mL/min/1.73 sq m ESTIMATED GFR IS NOT pabg=5398) ACCURATE CREATININE CLEARANCE IN PREDICTING GLOMERULAR FILTRATION RATE. ESTIMATED GFR IS NOT APPLICABLE FOR DIALYSIS PATIENTS. CBC (HEMOGRAM ONLY)2017-08-25 06:32:00 Test Item Value Reference Range Comments WHITE BLOOD CELL COUNT (BEAKER) (test yyli=287) 7.0 K/ L 3.5-10.5 RED BLOOD CELL COUNT (BEAKER) (test kjge=137) 3.14 M/ L 4.63-6.08 HEMOGLOBIN (BEAKER) (test vtsi=733) 9.2 GM/DL 13.7-17.5 HEMATOCRIT (BEAKER) (test xztc=331) 31.3 % 40.1-51.0 MEAN CORPUSCULAR VOLUME (BEAKER) (test dtmw=493) 99.7 fL 79.0-92.2 MEAN CORPUSCULAR HEMOGLOBIN (BEAKER) (test 29.3 pg 25.7-32.2 nkqm=301) MEAN CORPUSCULAR HEMOGLOBIN CONC (BEAKER) (test 29.4 GM/DL 32.3-36.5 riwn=212) RED CELL DISTRIBUTION WIDTH (BEAKER) (test 16.1 % 11.6-14.4 kfyo=678) PLATELET COUNT (BEAKER) (test xkkr=513) 362 K/CU MM 150-450 MEAN PLATELET VOLUME (BEAKER) (test dxwj=320) 9.8 fL 9.4-12.4 NUCLEATED RED BLOOD CELLS (BEAKER) (test 0 /100 WBC 0-0 xpti=979) POCT-GLUCOSE [id number] 06:17:00 Test Item Value Reference Range Comments POC-GLUCOSE METER (BEAKER) 152 mg/dL 70-110 TESTED AT [address] (test trxq=9077) [facility] [address] POCT-GLUCOSE [id number] 20:39:00 Test Item Value Reference Range Comments POC-GLUCOSE METER (BEAKER) 249 mg/dL 70-110 TESTED AT [address] (test xjim=0739) [facility] [address] POCT-GLUCOSE [id number] 17:12:00 Test Item Value Reference Range Comments POC-GLUCOSE METER (BEAKER) 163 mg/dL 70-110 TESTED AT [address] (test mxam=8778) [facility] [address] POCT-GLUCOSE [id number] 11:20:00 Test Item Value Reference Range Comments POC-GLUCOSE METER (BEAKER) 190 mg/dL 70-110 TESTED AT [address] (test pnpz=6237) [facility] [address] POCT-GLUCOSE [id number] 06:16:00 Test Item Value Reference Range Comments POC-GLUCOSE METER (BEAKER) 126 mg/dL 70-110 TESTED AT [address] (test ahfs=0186) [place] [address] POCT-GLUCOSE [id number] 20:49:00 Test Item Value Reference Range Comments POC-GLUCOSE METER (BEAKER) 139 mg/dL 70-110 TESTED AT [address] (test yncx=8031) [place] [address] POCT-GLUCOSE [id number] 16:32:00 Test Item Value Reference Range Comments POC-GLUCOSE METER (BEAKER) 161 mg/dL 70-110 TESTED AT [address] (test jzlb=5606) [place] [address] POCT-GLUCOSE [id number] 12:02:00 Test Item Value Reference Range Comments POC-GLUCOSE METER (BEAKER) 149 mg/dL 70-110 TESTED AT [address] (test npau=2766) [place] [address] CBC W/PLT COUNT & AUTO [id number] 07:02:00 Test Item Value Reference Range Comments WHITE BLOOD CELL COUNT (BEAKER) (test iqpa=925) 8.4 K/ L 3.5-10.5 RED BLOOD CELL COUNT (BEAKER) (test ywdz=025) 3.07 M/ L 4.63-6.08 HEMOGLOBIN (BEAKER) (test ihan=230) 9.1 GM/DL 13.7-17.5 HEMATOCRIT (BEAKER) (test gvnt=417) 30.9 % 40.1-51.0 MEAN CORPUSCULAR VOLUME (BEAKER) (test opwt=787) 100.7 fL 79.0-92.2 MEAN CORPUSCULAR HEMOGLOBIN (BEAKER) (test 29.6 pg 25.7-32.2 ilfz=447) MEAN CORPUSCULAR HEMOGLOBIN CONC (BEAKER) (test 29.4 GM/DL 32.3-36.5 bqls=871) RED CELL DISTRIBUTION WIDTH (BEAKER) (test 16.1 % 11.6-14.4 lzjy=966) PLATELET COUNT (BEAKER) (test hzkc=988) 374 K/CU MM 150-450 MEAN PLATELET VOLUME (BEAKER) (test dtqh=414) 9.8 fL 9.4-12.4 NUCLEATED RED BLOOD CELLS (BEAKER) (test 0 /100 WBC 0-0 ippz=808) NEUTROPHILS RELATIVE PERCENT (BEAKER) (test 78 % zfep=865) LYMPHOCYTES RELATIVE PERCENT (BEAKER) (test 9 % qwoa=895) MONOCYTES RELATIVE PERCENT (BEAKER) (test 10 % xfxr=928) EOSINOPHILS RELATIVE PERCENT (BEAKER) (test 3 % uftm=973) BASOPHILS RELATIVE PERCENT (BEAKER) (test 1 % eoqi=468) NEUTROPHILS ABSOLUTE COUNT (BEAKER) (test 6.53 K/ L 1.78-5.38 pkzw=236) LYMPHOCYTES ABSOLUTE COUNT (BEAKER) (test 0.75 K/ L 1.32-3.57 zmfv=588) MONOCYTES ABSOLUTE COUNT (BEAKER) (test 0.81 K/ L 0.30-0.82 chpp=528) EOSINOPHILS ABSOLUTE COUNT (BEAKER) (test 0.22 K/ L 0.04-0.54 uzzl=102) BASOPHILS ABSOLUTE COUNT (BEAKER) (test 0.04 K/ L 0.01-0.08 chmw=080) IMMATURE GRANULOCYTES-RELATIVE PERCENT (BEAKER) 1 % 0-1 (test auan=3588) BASIC METABOLIC [id number] 06:59:00 Test Item Value Reference Range Comments SODIUM (BEAKER) (test 136 meq/L 136-145 pukr=924) POTASSIUM (BEAKER) (test 3.8 meq/L 3.5-5.1 ilpb=601) CHLORIDE (BEAKER) (test 104 meq/L 98-107 dvzr=089) CO2 (BEAKER) (test 23 meq/L 22-29 otnr=854) BLOOD UREA NITROGEN 26 mg/dL 7-21 (BEAKER) (test mrkp=164) CREATININE (BEAKER) (test 1.30 mg/dL 0.57-1.25 rdua=311) GLUCOSE RANDOM (BEAKER) 124 mg/dL 70-105 (test mpmz=676) CALCIUM (BEAKER) (test 8.6 mg/dL 8.4-10.2 ojbf=550) EGFR (BEAKER) (test 54 mL/min/1.73 sq m ESTIMATED GFR IS NOT aqef=6316) ACCURATE CREATININE CLEARANCE IN PREDICTING GLOMERULAR FILTRATION RATE. ESTIMATED GFR IS NOT APPLICABLE FOR DIALYSIS PATIENTS. POCT-GLUCOSE [id number] 06:40:00 Test Item Value Reference Range Comments POC-GLUCOSE METER (BEAKER) 158 mg/dL 70-110 TESTED AT [address] (test tfyc=9217) [facility] [address] POCT-GLUCOSE [id number] 20:50:00 Test Item Value Reference Range Comments POC-GLUCOSE METER (BEAKER) 174 mg/dL 70-110 TESTED AT [address] (test wgkz=3890) [facility] [address] POCT-GLUCOSE [id number] 17:01:00 Test Item Value Reference Range Comments POC-GLUCOSE METER (BEAKER) 130 mg/dL 70-110 TESTED AT [address] (test rild=0520) [place] [address] POCT-GLUCOSE [id number] 12:02:00 Test Item Value Reference Range Comments POC-GLUCOSE METER (BEAKER) 194 mg/dL 70-110 TESTED AT [address] (test loca=1321) [place] [address] POCT-GLUCOSE [id number] 06:25:00 Test Item Value Reference Range Comments POC-GLUCOSE METER (BEAKER) 130 mg/dL 70-110 TESTED AT [address] (test xdfy=2490) [place] [address] POCT-GLUCOSE [id number] 19:53:00 Test Item Value Reference Range Comments POC-GLUCOSE METER (BEAKER) 188 mg/dL 70-110 TESTED AT [address] (test whre=4389) [place] [address] POCT-GLUCOSE [id number] 16:24:00 Test Item Value Reference Range Comments POC-GLUCOSE METER (BEAKER) 210 mg/dL 70-110 TESTED AT [address] (test mwqg=1431) [place] [address] POCT-GLUCOSE [id number] 11:20:00 Test Item Value Reference Range Comments POC-GLUCOSE METER (BEAKER) 186 mg/dL 70-110 TESTED AT [address] (test lsza=4779) [facility] [address] POCT-GLUCOSE [id number] 06:18:00 Test Item Value Reference Range Comments POC-GLUCOSE METER (BEAKER) 127 mg/dL 70-110 TESTED AT [address] (test gzut=7542) [place] [address] POCT-GLUCOSE [id number] 20:48:00 Test Item Value Reference Range Comments POC-GLUCOSE METER (BEAKER) 166 mg/dL 70-110 TESTED AT [address] (test ayba=0018) [place] [address] POCT-GLUCOSE [id number] 16:51:00 Test Item Value Reference Range Comments POC-GLUCOSE METER (BEAKER) 153 mg/dL 70-110 TESTED AT [address] (test obwo=2642) [place] [address] B-TYPE NATRIURETIC FACTOR (BNP)2017-08-20 14:00:00 Test Item Value Reference Range Comments B-TYPE NATRIURETIC PEPTIDE (BEAKER) (test 422 pg/mL 0-100 gfjl=453) POCT-GLUCOSE [id number] 12:02:00 Test Item Value Reference Range Comments POC-GLUCOSE METER (BEAKER) 203 mg/dL 70-110 TESTED AT [address] (test tlbk=9446) [place] [address] RAD, CHEST, 1 VIEW, NON [id number] 08:19:00Reason for exam:->pulm edema fupShould this be [...] No pneumothorax is seen. Signed: Harriett Garnica MDRepbirdie Verified Date/Time: 08/20/2017 08:19:33 [facility] Reading [facility] POCT-GLUCOSE [id number] 05:10:00 Test Item Value Reference Range Comments POC-GLUCOSE METER (BEAKER) 138 mg/dL 70-110 TESTED AT [address] (test wmss=6979) [place] [address] POCT-GLUCOSE [id number] 21:20:00 Test Item Value Reference Range Comments POC-GLUCOSE METER (BEAKER) 151 mg/dL 70-110 TESTED AT [address] (test hbia=7241) [place] [address] POCT-GLUCOSE [id number] 18:02:00 Test Item Value Reference Range Comments POC-GLUCOSE METER (BEAKER) 227 mg/dL 70-110 TESTED AT [address] (test ukxt=1797) [place] [address] POCT-GLUCOSE [id number] 11:42:00 Test Item Value Reference Range Comments POC-GLUCOSE METER (BEAKER) 212 mg/dL 70-110 TESTED AT [address] (test pytm=2802) [place] [address] VITAMIN B12 AND [id number] 07:11:00 Test Item Value Reference Range Comments VITAMIN B12 (BEAKER) (test xead=786) 654 pg/mL 213-816 FOLATE (BEAKER) (test xvzu=424) 4.4 ng/mL >=7.0 POCT-GLUCOSE [id number] 06:14:00 Test Item Value Reference Range Comments POC-GLUCOSE METER (BEAKER) 144 mg/dL 70-110 TESTED AT [address] (test wmet=7241) [place] [address] CT, CHEST, WITHOUT [id number] 22:14:00FINAL REPORT CT, CHEST, WITHOUT CONTRAST INDICATION: [...] MDReport Verified Date/Time: 08/18/2017 22:14:14 Reading Location: [facility] B1 C013Y CT Body Reading Room POCT-GLUCOSE [id number] 21: 03:00 Test Item Value Reference Range Comments POC-GLUCOSE METER (BEAKER) 179 mg/dL 70-110 TESTED AT [address] (test tfbw=6634) [place] [address] POCT-GLUCOSE [id number] 16:32:00 Test Item Value Reference Range Comments POC-GLUCOSE METER (BEAKER) 147 mg/dL 70-110 TESTED AT [address] (test joag=8950) [place] [address] POCT-GLUCOSE [id number] 12:07:00 Test Item Value Reference Range Comments POC-GLUCOSE METER (BEAKER) 171 mg/dL 70-110 TESTED AT [address] (test gbht=2798) [facility] [address] BASIC METABOLIC [id number] 06:31:00 Test Item Value Reference Range Comments SODIUM (BEAKER) (test 136 meq/L 136-145 yxiz=833) POTASSIUM (BEAKER) (test 4.2 meq/L 3.5-5.1 dvmb=889) CHLORIDE (BEAKER) (test 104 meq/L 98-107 llca=551) CO2 (BEAKER) (test 23 meq/L 22-29 uobh=111) BLOOD UREA NITROGEN 27 mg/dL 7-21 (BEAKER) (test cyqj=805) CREATININE (BEAKER) (test 1.28 mg/dL 0.57-1.25 xxwu=554) GLUCOSE RANDOM (BEAKER) 123 mg/dL 70-105 (test jvpg=948) CALCIUM (BEAKER) (test 8.4 mg/dL 8.4-10.2 pqif=920) EGFR (BEAKER) (test 55 mL/min/1.73 sq m ESTIMATED GFR IS NOT ktsc=5548) ACCURATE CREATININE CLEARANCE IN PREDICTING GLOMERULAR FILTRATION RATE. ESTIMATED GFR IS NOT APPLICABLE FOR DIALYSIS PATIENTS. POCT-GLUCOSE [id number] 05:42:00 Test Item Value Reference Range Comments POC-GLUCOSE METER (BEAKER) 132 mg/dL 70-[address] [facility] [address] [facility] (test llnd=7461) [facility] [address] CBC W/PLT COUNT & AUTO [id number] 05:39:00 Test Item Value Reference Range Comments WHITE BLOOD CELL COUNT (BEAKER) (test fcvm=048) 8.6 K/ L 3.5-10.5 RED BLOOD CELL COUNT (BEAKER) (test vymq=398) 2.69 M/ L 4.63-6.08 HEMOGLOBIN (BEAKER) (test yttf=084) 8.3 GM/DL 13.7-17.5 HEMATOCRIT (BEAKER) (test wfpk=219) 27.6 % 40.1-51.0 MEAN CORPUSCULAR VOLUME (BEAKER) (test qfnm=939) 102.6 fL 79.0-92.2 MEAN CORPUSCULAR HEMOGLOBIN (BEAKER) (test 30.9 pg 25.7-32.2 vobd=011) MEAN CORPUSCULAR HEMOGLOBIN CONC (BEAKER) (test 30.1 GM/DL 32.3-36.5 rdil=299) RED CELL DISTRIBUTION WIDTH (BEAKER) (test 16.6 % 11.6-14.4 byli=572) PLATELET COUNT (BEAKER) (test rbke=467) 407 K/CU MM 150-450 MEAN PLATELET VOLUME (BEAKER) (test qwei=489) 9.4 fL 9.4-12.4 NUCLEATED RED BLOOD CELLS (BEAKER) (test 0 /100 WBC 0-0 tlmf=398) NEUTROPHILS RELATIVE PERCENT (BEAKER) (test 76 % wlna=816) LYMPHOCYTES RELATIVE PERCENT (BEAKER) (test 11 % blds=382) MONOCYTES RELATIVE PERCENT (BEAKER) (test 7 % riev=962) EOSINOPHILS RELATIVE PERCENT (BEAKER) (test 6 % aqrl=946) BASOPHILS RELATIVE PERCENT (BEAKER) (test 1 % evbn=379) NEUTROPHILS ABSOLUTE COUNT (BEAKER) (test 6.51 K/ L 1.78-5.38 yinc=168) LYMPHOCYTES ABSOLUTE COUNT (BEAKER) (test 0.90 K/ L 1.32-3.57 wygl=475) MONOCYTES ABSOLUTE COUNT (BEAKER) (test 0.58 K/ L 0.30-0.82 kryn=794) EOSINOPHILS ABSOLUTE COUNT (BEAKER) (test 0.51 K/ L 0.04-0.54 jfvq=838) BASOPHILS ABSOLUTE COUNT (BEAKER) (test 0.04 K/ L 0.01-0.08 cqel=224) IMMATURE GRANULOCYTES-RELATIVE PERCENT (BEAKER) 1 % 0-1 (test ampm=4942) POCT-GLUCOSE [id number] 20:21:00 Test Item Value Reference Range Comments POC-GLUCOSE METER (BEAKER) 168 mg/dL 70-110 TESTED AT [address] (test hwnq=2275) [place] [address] POCT-GLUCOSE [id number] 17:12:00 Test Item Value Reference Range Comments POC-GLUCOSE METER (BEAKER) 149 mg/dL 70-110 TESTED AT [address] (test wews=3101) [place] [id number] POCT-GLUCOSE [id number] 11:46:00 Test Item Value Reference Range Comments POC-GLUCOSE METER (BEAKER) 138 mg/dL 70-110 TESTED AT [address] (test ccyh=4186) [facility] [address] BASIC METABOLIC [id number] 08:56:00 Test Item Value Reference Range Comments SODIUM (BEAKER) (test 137 meq/L 136-145 bjbz=684) POTASSIUM (BEAKER) (test 4.0 meq/L 3.5-5.1 ybyk=613) CHLORIDE (BEAKER) (test 106 meq/L 98-107 yzej=270) CO2 (BEAKER) (test 22 meq/L 22-29 bkfq=561) BLOOD UREA NITROGEN 28 mg/dL 7-21 (BEAKER) (test ipbv=939) CREATININE (BEAKER) (test 1.34 mg/dL 0.57-1.25 fggq=336) GLUCOSE RANDOM (BEAKER) 124 mg/dL 70-105 (test tqmr=052) CALCIUM (BEAKER) (test 8.2 mg/dL 8.4-10.2 ujce=556) EGFR (BEAKER) (test 52 mL/min/1.73 sq m ESTIMATED GFR IS NOT njmh=8331) ACCURATE CREATININE CLEARANCE IN PREDICTING GLOMERULAR FILTRATION RATE. ESTIMATED GFR IS NOT APPLICABLE FOR DIALYSIS PATIENTS. POCT-GLUCOSE [id number] 05:44:00 Test Item Value Reference Range Comments POC-GLUCOSE METER (BEAKER) 139 mg/dL 70-110 TESTED AT [address] (test gjqa=4966) [facility] [address] POCT-GLUCOSE [id number] 20:33:00 Test Item Value Reference Range Comments POC-GLUCOSE METER (BEAKER) 145 mg/dL 70-110 TESTED AT [address] (test ywdg=0610) [facility] [address] POCT-GLUCOSE [id number] 16:39:00 Test Item Value Reference Range Comments POC-GLUCOSE METER (BEAKER) 177 mg/dL 70-110 TESTED AT [address] (test kflf=6735) [facility] [address] POCT-GLUCOSE [id number] 12:01:00 Test Item Value Reference Range Comments POC-GLUCOSE METER (BEAKER) 200 mg/dL 70-110 TESTED AT [address] (test tvge=9511) [facility] [address] POCT-GLUCOSE [id number] 05:56:00 Test Item Value Reference Range Comments POC-GLUCOSE METER (BEAKER) 167 mg/dL 70-110 TESTED AT [address] (test qsvi=1649) [facility] [address] POCT-GLUCOSE [id number] 20:34:00 Test Item Value Reference Range Comments POC-GLUCOSE METER (BEAKER) 217 mg/dL 70-110 TESTED AT [address] (test tcye=4409) [facility] [address] POCT-GLUCOSE [id number] 18:24:00 Test Item Value Reference Range Comments POC-GLUCOSE METER (BEAKER) 190 mg/dL 70-110 TESTED AT [address] (test oeep=8182) [facility] [address] POCT-GLUCOSE [id number] 16:22:00 Test Item Value Reference Range Comments POC-GLUCOSE METER (BEAKER) 233 mg/dL 70-110 TESTED AT [address] (test vzde=7573) [facility] [address] POCT-GLUCOSE [id number] 12:13:00 Test Item Value Reference Range Comments POC-GLUCOSE METER (BEAKER) 235 mg/dL 70-[address] [facility] [address] [facility] (test smpb=9553) [facility] [address] RAD, CHEST, 2 [id number] 09:16:00Reason for exam:->sobFINAL REPORT Two frontal and one lateral chest images compared to August 14 Discussion: Cardiomegaly and pulmonary congestion are present. I could not exclude a small right effusion although pleural thickening would have a similar appearance. No pneumothorax. IMPRESSIONS: No change Signed: Taty Osborne Verified Date/Time: 08/15/2017 09:16:20 Reading [facility] Rad[facility] Reading Room BASIC METABOLIC [id number] 06:45:00 Test Item Value Reference Range Comments SODIUM (BEAKER) (test 136 meq/L 136-145 junt=834) POTASSIUM (BEAKER) (test 4.3 meq/L 3.5-5.1 aowi=089) CHLORIDE (BEAKER) (test 106 meq/L 98-107 capg=097) CO2 (BEAKER) (test 21 meq/L 22-29 klvj=826) BLOOD UREA NITROGEN 32 mg/dL 7-21 (BEAKER) (test ynes=214) CREATININE (BEAKER) (test 1.41 mg/dL 0.57-1.25 clgz=420) GLUCOSE RANDOM (BEAKER) 127 mg/dL 70-105 (test gulf=234) CALCIUM (BEAKER) (test 8.3 mg/dL 8.4-10.2 qkzs=617) EGFR (BEAKER) (test 49 mL/min/1.73 sq m ESTIMATED GFR IS NOT wkff=9512) ACCURATE CREATININE CLEARANCE IN PREDICTING GLOMERULAR FILTRATION RATE. ESTIMATED GFR IS NOT APPLICABLE FOR DIALYSIS PATIENTS. CBC W/PLT COUNT & AUTO [id number] 05:31:00 Test Item Value Reference Range Comments WHITE BLOOD CELL COUNT (BEAKER) (test ujcf=724) 11.0 K/ L 3.5-10.5 RED BLOOD CELL COUNT (BEAKER) (test xjfa=686) 2.56 M/ L 4.63-6.08 HEMOGLOBIN (BEAKER) (test yoxn=281) 7.9 GM/DL 13.7-17.5 HEMATOCRIT (BEAKER) (test wgga=977) 26.4 % 40.1-51.0 MEAN CORPUSCULAR VOLUME (BEAKER) (test zrwa=025) 103.1 fL 79.0-92.2 MEAN CORPUSCULAR HEMOGLOBIN (BEAKER) (test 30.9 pg 25.7-32.2 docm=588) MEAN CORPUSCULAR HEMOGLOBIN CONC (BEAKER) (test 29.9 GM/DL 32.3-36.5 tftb=433) RED CELL DISTRIBUTION WIDTH (BEAKER) (test 16.3 % 11.6-14.4 ckyx=279) PLATELET COUNT (BEAKER) (test pqwv=758) 470 K/CU MM 150-450 MEAN PLATELET VOLUME (BEAKER) (test pvbi=455) 9.7 fL 9.4-12.4 NUCLEATED RED BLOOD CELLS (BEAKER) (test 0 /100 WBC 0-0 syfy=410) NEUTROPHILS RELATIVE PERCENT (BEAKER) (test 79 % efzp=891) LYMPHOCYTES RELATIVE PERCENT (BEAKER) (test 9 % cpvq=669) MONOCYTES RELATIVE PERCENT (BEAKER) (test 7 % vmiy=683) EOSINOPHILS RELATIVE PERCENT (BEAKER) (test 5 % altd=504) BASOPHILS RELATIVE PERCENT (BEAKER) (test 1 % ilfx=150) NEUTROPHILS ABSOLUTE COUNT (BEAKER) (test 8.65 K/ L 1.78-5.38 uono=027) LYMPHOCYTES ABSOLUTE COUNT (BEAKER) (test 0.99 K/ L 1.32-3.57 udmj=808) MONOCYTES ABSOLUTE COUNT (BEAKER) (test 0.76 K/ L 0.30-0.82 giju=625) EOSINOPHILS ABSOLUTE COUNT (BEAKER) (test 0.51 K/ L 0.04-0.54 zztj=185) BASOPHILS ABSOLUTE COUNT (BEAKER) (test 0.06 K/ L 0.01-0.08 zjaa=980) IMMATURE GRANULOCYTES-RELATIVE PERCENT (BEAKER) 1 % 0-1 (test cixi=9151) POCT-GLUCOSE [id number] 03:46:00 Test Item Value Reference Range Comments POC-GLUCOSE METER (BEAKER) 235 mg/dL 70-110 TESTED AT [address] (test nfzm=7495) [facility] [address] POCT-GLUCOSE [id number] 20:54:00 Test Item Value Reference Range Comments POC-GLUCOSE METER (BEAKER) 205 mg/dL 70-110 TESTED AT [address] (test tejr=9860) [place] [id number] RAD, CHEST, 1 VIEW, NON [id number] 15:21:00Reason for exam:->sobShould this be performed at [...] Mcdanielseport Verified Date/Time: 08/14/2017 15:21:32 Reading Location: [facility] Radiology Reading Room POCT- GLUCOSE [id number] 13:31:00 Test Item Value Reference Range Comments POC-GLUCOSE METER (BEAKER) 229 mg/dL 70-110 TESTED AT [address] (test phxu=0368) [facility] [address] POCT-GLUCOSE [id number] 10:21:00 Test Item Value Reference Range Comments POC-GLUCOSE METER (BEAKER) 189 mg/dL 70-110 TESTED AT [address] (test fooo=1576) [facility] [address] [id number] 04:50:00 Test Item Value Reference Range Comments MAGNESIUM (BEAKER) (test gtwh=127) 1.6 mg/dL 1.6-2.6 BASIC METABOLIC [id number] 04:50:00 Test Item Value Reference Range Comments SODIUM (BEAKER) (test 132 meq/L 136-145 cquc=070) POTASSIUM (BEAKER) (test 4.2 meq/L 3.5-5.1 jznt=935) CHLORIDE (BEAKER) (test 105 meq/L 98-107 bmxo=718) CO2 (BEAKER) (test 20 meq/L 22-29 goie=388) BLOOD UREA NITROGEN 36 mg/dL 7-21 (BEAKER) (test wqzl=155) CREATININE (BEAKER) (test 1.28 mg/dL 0.57-1.25 kpjt=197) GLUCOSE RANDOM (BEAKER) 136 mg/dL 70-105 (test jkhv=485) CALCIUM (BEAKER) (test 8.0 mg/dL 8.4-10.2 gubh=887) EGFR (BEAKER) (test 55 mL/min/1.73 sq m ESTIMATED GFR IS NOT nwpk=5190) ACCURATE CREATININE CLEARANCE IN PREDICTING GLOMERULAR FILTRATION RATE. ESTIMATED GFR IS NOT APPLICABLE FOR DIALYSIS PATIENTS. CBC W/PLT COUNT & AUTO [id number] 04:34:00 Test Item Value Reference Range Comments WHITE BLOOD CELL COUNT (BEAKER) (test qedw=980) 10.4 K/ L 3.5-10.5 RED BLOOD CELL COUNT (BEAKER) (test mphk=937) 2.53 M/ L 4.63-6.08 HEMOGLOBIN (BEAKER) (test gtzf=125) 7.8 GM/DL 13.7-17.5 HEMATOCRIT (BEAKER) (test jvmg=169) 25.9 % 40.1-51.0 MEAN CORPUSCULAR VOLUME (BEAKER) (test mpvn=900) 102.4 fL 79.0-92.2 MEAN CORPUSCULAR HEMOGLOBIN (BEAKER) (test 30.8 pg 25.7-32.2 uhgb=971) MEAN CORPUSCULAR HEMOGLOBIN CONC (BEAKER) (test 30.1 GM/DL 32.3-36.5 fxbt=941) RED CELL DISTRIBUTION WIDTH (BEAKER) (test 15.9 % 11.6-14.4 xkrk=562) PLATELET COUNT (BEAKER) (test ndmh=153) 479 K/CU MM 150-450 MEAN PLATELET VOLUME (BEAKER) (test tdkz=994) 9.7 fL 9.4-12.4 NUCLEATED RED BLOOD CELLS (BEAKER) (test 0 /100 WBC 0-0 hdir=648) NEUTROPHILS RELATIVE PERCENT (BEAKER) (test 78 % qiqu=017) LYMPHOCYTES RELATIVE PERCENT (BEAKER) (test 9 % hgkv=934) MONOCYTES RELATIVE PERCENT (BEAKER) (test 7 % iotp=186) EOSINOPHILS RELATIVE PERCENT (BEAKER) (test 5 % kztx=639) BASOPHILS RELATIVE PERCENT (BEAKER) (test 1 % sagc=938) NEUTROPHILS ABSOLUTE COUNT (BEAKER) (test 8.06 K/ L 1.78-5.38 wibr=054) LYMPHOCYTES ABSOLUTE COUNT (BEAKER) (test 0.93 K/ L 1.32-3.57 uhxb=173) MONOCYTES ABSOLUTE COUNT (BEAKER) (test 0.68 K/ L 0.30-0.82 fbyr=578) EOSINOPHILS ABSOLUTE COUNT (BEAKER) (test 0.52 K/ L 0.04-0.54 wxka=553) BASOPHILS ABSOLUTE COUNT (BEAKER) (test 0.07 K/ L 0.01-0.08 rwck=207) IMMATURE GRANULOCYTES-RELATIVE PERCENT (BEAKER) 1 % 0-1 (test yfdh=4202) POCT-GLUCOSE [id number] 21:22:00 Test Item Value Reference Range Comments POC-GLUCOSE METER (BEAKER) 232 mg/dL 70-110 TESTED AT [address] (test ttkg=5557) [place] [address] POCT-GLUCOSE [id number] 17:34:00 Test Item Value Reference Range Comments POC-GLUCOSE METER (BEAKER) 205 mg/dL 70-110 TESTED AT [address] (test euef=2951) [place] [address] POCT-GLUCOSE [id number] 08:22:00 Test Item Value Reference Range Comments POC-GLUCOSE METER (BEAKER) 163 mg/dL 70-110 TESTED AT [address] (test mqkg=8934) [place] [id number] CBC W/PLT COUNT & AUTO [id number] 05:45:00 Test Item Value Reference Range Comments WHITE BLOOD CELL COUNT (BEAKER) (test zafc=260) 9.6 K/ L 3.5-10.5 RED BLOOD CELL COUNT (BEAKER) (test gqqz=966) 2.63 M/ L 4.63-6.08 HEMOGLOBIN (BEAKER) (test etpx=242) 8.2 GM/DL 13.7-17.5 HEMATOCRIT (BEAKER) (test tams=380) 27.0 % 40.1-51.0 MEAN CORPUSCULAR VOLUME (BEAKER) (test actz=084) 102.7 fL 79.0-92.2 MEAN CORPUSCULAR HEMOGLOBIN (BEAKER) (test 31.2 pg 25.7-32.2 ccvj=250) MEAN CORPUSCULAR HEMOGLOBIN CONC (BEAKER) (test 30.4 GM/DL 32.3-36.5 mumc=270) RED CELL DISTRIBUTION WIDTH (BEAKER) (test 15.8 % 11.6-14.4 cqas=516) PLATELET COUNT (BEAKER) (test qznz=454) 469 K/CU MM 150-450 MEAN PLATELET VOLUME (BEAKER) (test kbzc=637) 9.4 fL 9.4-12.4 NUCLEATED RED BLOOD CELLS (BEAKER) (test 0 /100 WBC 0-0 pxvb=262) NEUTROPHILS RELATIVE PERCENT (BEAKER) (test 75 % laai=550) LYMPHOCYTES RELATIVE PERCENT (BEAKER) (test 11 % siir=547) MONOCYTES RELATIVE PERCENT (BEAKER) (test 7 % sntk=955) EOSINOPHILS RELATIVE PERCENT (BEAKER) (test 6 % jiaj=749) BASOPHILS RELATIVE PERCENT (BEAKER) (test 1 % nylv=087) NEUTROPHILS ABSOLUTE COUNT (BEAKER) (test 7.13 K/ L 1.78-5.38 mkcp=729) LYMPHOCYTES ABSOLUTE COUNT (BEAKER) (test 1.03 K/ L 1.32-3.57 hdlo=769) MONOCYTES ABSOLUTE COUNT (BEAKER) (test 0.71 K/ L 0.30-0.82 njyw=311) EOSINOPHILS ABSOLUTE COUNT (BEAKER) (test 0.57 K/ L 0.04-0.54 uxot=993) BASOPHILS ABSOLUTE COUNT (BEAKER) (test 0.06 K/ L 0.01-0.08 uxfn=531) IMMATURE GRANULOCYTES-RELATIVE PERCENT (BEAKER) 1 % 0-1 (test cmiv=3757) BASIC METABOLIC [id number] 05:43:00 Test Item Value Reference Range Comments SODIUM (BEAKER) (test 131 meq/L 136-145 jmdb=324) POTASSIUM (BEAKER) (test 4.2 meq/L 3.5-5.1 rjio=961) CHLORIDE (BEAKER) (test 105 meq/L 98-107 iawo=484) CO2 (BEAKER) (test 21 meq/L 22-29 dadi=379) BLOOD UREA NITROGEN 31 mg/dL 7-21 (BEAKER) (test tyxd=601) CREATININE (BEAKER) (test 1.32 mg/dL 0.57-1.25 mttz=819) GLUCOSE RANDOM (BEAKER) 138 mg/dL 70-105 (test lsug=187) CALCIUM (BEAKER) (test 8.0 mg/dL 8.4-10.2 lwxi=892) EGFR (BEAKER) (test 53 mL/min/1.73 sq m ESTIMATED GFR IS NOT zxro=4035) ACCURATE CREATININE CLEARANCE IN PREDICTING GLOMERULAR FILTRATION RATE. ESTIMATED GFR IS NOT APPLICABLE FOR DIALYSIS PATIENTS. POCT-GLUCOSE [id number] 21:11:00 Test Item Value Reference Range Comments POC-GLUCOSE METER (BEAKER) 201 mg/dL 70-110 TESTED AT [address] (test nszj=6074) [place] [address] POCT-GLUCOSE [id number] 18:21:00 Test Item Value Reference Range Comments POC-GLUCOSE METER (BEAKER) 187 mg/dL 70-110 TESTED AT [address] (test vvgl=0347) [place] [address] POCT-GLUCOSE [id number] 13:12:00 Test Item Value Reference Range Comments POC-GLUCOSE METER (BEAKER) 162 mg/dL 70-110 TESTED AT [address] (test ufii=0739) [place] [address] POCT-GLUCOSE [id number] 08:08:00 Test Item Value Reference Range Comments POC-GLUCOSE METER (BEAKER) 138 mg/dL 70-110 TESTED AT [address] (test mxih=4910) [place] [address] BASIC METABOLIC [id number] 06:47:00 Test Item Value Reference Range Comments SODIUM (BEAKER) (test 133 meq/L 136-145 jlcm=067) POTASSIUM (BEAKER) (test 4.8 meq/L 3.5-5.1 niiq=655) CHLORIDE (BEAKER) (test 105 meq/L 98-107 ixqc=385) CO2 (BEAKER) (test 20 meq/L 22-29 jwlq=735) BLOOD UREA NITROGEN 31 mg/dL 7-21 (BEAKER) (test twaf=989) CREATININE (BEAKER) (test 1.35 mg/dL 0.57-1.25 xmcf=885) GLUCOSE RANDOM (BEAKER) 129 mg/dL 70-105 (test uaqs=591) CALCIUM (BEAKER) (test 7.9 mg/dL 8.4-10.2 acox=703) EGFR (BEAKER) (test 52 mL/min/1.73 sq m ESTIMATED GFR IS NOT mubk=0724) ACCURATE CREATININE CLEARANCE IN PREDICTING GLOMERULAR FILTRATION RATE. ESTIMATED GFR IS NOT APPLICABLE FOR DIALYSIS PATIENTS. CBC W/PLT COUNT & AUTO [id number] 05:08:00 Test Item Value Reference Range Comments WHITE BLOOD CELL COUNT (BEAKER) (test aurw=531) 10.4 K/ L 3.5-10.5 RED BLOOD CELL COUNT (BEAKER) (test xcfh=784) 2.92 M/ L 4.63-6.08 HEMOGLOBIN (BEAKER) (test vkkb=194) 9.0 GM/DL 13.7-17.5 HEMATOCRIT (BEAKER) (test qwfz=537) 29.7 % 40.1-51.0 MEAN CORPUSCULAR VOLUME (BEAKER) (test irjn=109) 101.7 fL 79.0-92.2 MEAN CORPUSCULAR HEMOGLOBIN (BEAKER) (test 30.8 pg 25.7-32.2 ghbq=979) MEAN CORPUSCULAR HEMOGLOBIN CONC (BEAKER) (test 30.3 GM/DL 32.3-36.5 nyhg=105) RED CELL DISTRIBUTION WIDTH (BEAKER) (test 15.9 % 11.6-14.4 myus=475) PLATELET COUNT (BEAKER) (test lntu=383) 537 K/CU MM 150-450 MEAN PLATELET VOLUME (BEAKER) (test hxgk=017) 9.7 fL 9.4-12.4 NUCLEATED RED BLOOD CELLS (BEAKER) (test 0 /100 WBC 0-0 svyt=072) NEUTROPHILS RELATIVE PERCENT (BEAKER) (test 78 % hotn=882) LYMPHOCYTES RELATIVE PERCENT (BEAKER) (test 9 % vykw=416) MONOCYTES RELATIVE PERCENT (BEAKER) (test 7 % gzpg=013) EOSINOPHILS RELATIVE PERCENT (BEAKER) (test 5 % grln=281) BASOPHILS RELATIVE PERCENT (BEAKER) (test 1 % vfjb=674) NEUTROPHILS ABSOLUTE COUNT (BEAKER) (test 8.09 K/ L 1.78-5.38 botq=002) LYMPHOCYTES ABSOLUTE COUNT (BEAKER) (test 0.96 K/ L 1.32-3.57 qptd=029) MONOCYTES ABSOLUTE COUNT (BEAKER) (test 0.68 K/ L 0.30-0.82 hcjx=207) EOSINOPHILS ABSOLUTE COUNT (BEAKER) (test 0.52 K/ L 0.04-0.54 ctcl=994) BASOPHILS ABSOLUTE COUNT (BEAKER) (test 0.05 K/ L 0.01-0.08 nsuk=727) IMMATURE GRANULOCYTES-RELATIVE PERCENT (BEAKER) 1 % 0-1 (test ggyq=7221) POCT-GLUCOSE [id number] 21:13:00 Test Item Value Reference Range Comments POC-GLUCOSE METER (BEAKER) 169 mg/dL 70-110 TESTED AT [address] (test geel=1551) [facility] [address] RAD, CHEST, 1 VIEW, NON [id number] 17:14:00Reason for exam:->Chest Tube RemovalShould this be [...] MDReport Verified Date/Time: 08/11/2017 17:14:23 Reading Location: [address] Radiology Reading Room POCT-GLUCOSE [id number] 17:09:00 Test Item Value Reference Range Comments POC-GLUCOSE METER (BEAKER) 238 mg/dL 70-110 TESTED AT [address] (test sxjc=5470) [facility] [address] RAD, CHEST, 1 VIEW, NON [id number] 13:25:00Reason for exam:->pl effusionShould this be performed at the bedside?->YesFINAL REPORT AP chest HISTORY: Pleural effusion COMPARISON: 08/05/2017 IMPRESSION :Stable cardiac silhouette enlargement. Layering left effusion unchanged. Possible small right effusion. No pneumothorax. Mild vascular congestion. Signed : Manuel Fraser MDReport Verified Date/Time: 08/11/2017 13:25:17 Reading Location: [facility] Reading Room POCT-GLUCOSE [id number] 12:07:00 Test Item Value Reference Range Comments POC-GLUCOSE METER (BEAKER) 244 mg/dL 70-110 TESTED AT [address] (test wbxw=6828) [facility] [address] POCT-GLUCOSE [id number] 08:49:00 Test Item Value Reference Range Comments POC-GLUCOSE METER (BEAKER) 199 mg/dL 70-110 TESTED AT [address] (test wzpg=3624) [facility] [address] BASIC METABOLIC [id number] 07:01:00 Test Item Value Reference Range Comments SODIUM (BEAKER) (test 133 meq/L 136-145 spew=387) POTASSIUM (BEAKER) (test 4.6 meq/L 3.5-5.1 ogzb=674) CHLORIDE (BEAKER) (test 105 meq/L 98-107 wqud=792) CO2 (BEAKER) (test 20 meq/L 22-29 kuds=673) BLOOD UREA NITROGEN 33 mg/dL 7-21 (BEAKER) (test bluw=039) CREATININE (BEAKER) (test 1.44 mg/dL 0.57-1.25 vzpb=312) GLUCOSE RANDOM (BEAKER) 132 mg/dL 70-105 (test ddus=979) CALCIUM (BEAKER) (test 8.1 mg/dL 8.4-10.2 yncv=173) EGFR (BEAKER) (test 48 mL/min/1.73 sq m ESTIMATED GFR IS NOT rnmz=9138) ACCURATE CREATININE CLEARANCE IN PREDICTING GLOMERULAR FILTRATION RATE. ESTIMATED GFR IS NOT APPLICABLE FOR DIALYSIS PATIENTS. CBC W/PLT COUNT & AUTO [id number] 05:42:00 Test Item Value Reference Range Comments WHITE BLOOD CELL COUNT (BEAKER) (test vkqw=204) 10.9 K/ L 3.5-10.5 RED BLOOD CELL COUNT (BEAKER) (test ipmu=216) 2.84 M/ L 4.63-6.08 HEMOGLOBIN (BEAKER) (test nvgl=281) 8.9 GM/DL 13.7-17.5 HEMATOCRIT (BEAKER) (test qgmt=813) 30.0 % 40.1-51.0 MEAN CORPUSCULAR VOLUME (BEAKER) (test umyl=152) 105.6 fL 79.0-92.2 MEAN CORPUSCULAR HEMOGLOBIN (BEAKER) (test 31.3 pg 25.7-32.2 jiys=364) MEAN CORPUSCULAR HEMOGLOBIN CONC (BEAKER) (test 29.7 GM/DL 32.3-36.5 yknr=133) RED CELL DISTRIBUTION WIDTH (BEAKER) (test 15.8 % 11.6-14.4 vnrf=575) PLATELET COUNT (BEAKER) (test hqvh=599) 528 K/CU MM 150-450 MEAN PLATELET VOLUME (BEAKER) (test nlku=661) 10.1 fL 9.4-12.4 NUCLEATED RED BLOOD CELLS (BEAKER) (test 0 /100 WBC 0-0 tjvt=886) NEUTROPHILS RELATIVE PERCENT (BEAKER) (test 77 % ccwl=939) LYMPHOCYTES RELATIVE PERCENT (BEAKER) (test 9 % gqyb=168) MONOCYTES RELATIVE PERCENT (BEAKER) (test 7 % zoih=958) EOSINOPHILS RELATIVE PERCENT (BEAKER) (test 5 % vxpl=177) BASOPHILS RELATIVE PERCENT (BEAKER) (test 1 % gtsv=433) NEUTROPHILS ABSOLUTE COUNT (BEAKER) (test 8.44 K/ L 1.78-5.38 dswo=750) LYMPHOCYTES ABSOLUTE COUNT (BEAKER) (test 1.01 K/ L 1.32-3.57 heqz=008) MONOCYTES ABSOLUTE COUNT (BEAKER) (test 0.75 K/ L 0.30-0.82 fklh=599) EOSINOPHILS ABSOLUTE COUNT (BEAKER) (test 0.53 K/ L 0.04-0.54 yoss=661) BASOPHILS ABSOLUTE COUNT (BEAKER) (test 0.08 K/ L 0.01-0.08 yxac=060) IMMATURE GRANULOCYTES-RELATIVE PERCENT (BEAKER) 1 % 0-1 (test lwwy=0324) POCT-GLUCOSE [id number] 21:27:00 Test Item Value Reference Range Comments POC-GLUCOSE METER (BEAKER) 193 mg/dL 70-110 TESTED AT [address] (test zigy=6018) [facility] [address] POCT-GLUCOSE [id number] 17:12:00 Test Item Value Reference Range Comments POC-GLUCOSE METER (BEAKER) 195 mg/dL 70-110 TESTED AT [address] (test zddl=8364) [facility] [address] POCT-GLUCOSE [id number] 12:43:00 Test Item Value Reference Range Comments POC-GLUCOSE METER (BEAKER) 215 mg/dL 70-110 TESTED AT [address] (test rewk=3563) [facility] [address] POCT-GLUCOSE [id number] 07:30:00 Test Item Value Reference Range Comments POC-GLUCOSE METER (BEAKER) 160 mg/dL 70-110 TESTED AT [address] (test uwyj=1372) [facility] [address] CBC W/PLT COUNT & AUTO [id number] 05:56:00 Test Item Value Reference Range Comments WHITE BLOOD CELL COUNT 10.0 K/ L 3.5-10.5 (BEAKER) (test kuru=212) RED BLOOD CELL COUNT (BEAKER) 2.96 M/ L 4.63-6.08 (test lixl=119) HEMOGLOBIN (BEAKER) (test 9.1 GM/DL 13.7-17.5 ubnf=016) HEMATOCRIT (BEAKER) (test 30.1 % 40.1-51.0 foks=905) MEAN CORPUSCULAR VOLUME 101.7 fL 79.0-92.2 (BEAKER) (test zllv=591) MEAN CORPUSCULAR HEMOGLOBIN 30.7 pg 25.7-32.2 (BEAKER) (test egsn=716) MEAN CORPUSCULAR HEMOGLOBIN 30.2 GM/DL 32.3-36.5 CONC (BEAKER) (test eqmg=842) RED CELL DISTRIBUTION WIDTH 15.7 % 11.6-14.4 (BEAKER) (test ynhw=097) PLATELET COUNT (BEAKER) (test 510 K/CU MM 150-450 Discordant PLT result mgcn=794) Compared to previous one, Clinical correlation required. MEAN PLATELET VOLUME (BEAKER) 10.0 fL 9.4-12.4 (test xxdz=734) NUCLEATED RED BLOOD CELLS 0 /100 WBC 0-0 (BEAKER) (test afpx=137) NEUTROPHILS RELATIVE PERCENT 76 % (BEAKER) (test lzou=666) LYMPHOCYTES RELATIVE PERCENT 10 % (BEAKER) (test kdyw=401) MONOCYTES RELATIVE PERCENT 8 % (BEAKER) (test hdln=509) EOSINOPHILS RELATIVE PERCENT 5 % (BEAKER) (test xxjd=987) BASOPHILS RELATIVE PERCENT 1 % (BEAKER) (test lola=191) NEUTROPHILS ABSOLUTE COUNT 7.55 K/ L 1.78-5.38 (BEAKER) (test vlfl=147) LYMPHOCYTES ABSOLUTE COUNT 1.01 K/ L 1.32-3.57 (BEAKER) (test sfmi=526) MONOCYTES ABSOLUTE COUNT 0.78 K/ L 0.30-0.82 (BEAKER) (test odkx=086) EOSINOPHILS ABSOLUTE COUNT 0.48 K/ L 0.04-0.54 (BEAKER) (test gfno=361) BASOPHILS ABSOLUTE COUNT 0.06 K/ L 0.01-0.08 (BEAKER) (test nlxd=252) IMMATURE 1 % 0-1 GRANULOCYTES-RELATIVE PERCENT (BEAKER) (test jveb=6712) BASIC METABOLIC [id number] 05:42:00 Test Item Value Reference Range Comments SODIUM (BEAKER) (test 132 meq/L 136-145 ocim=978) POTASSIUM (BEAKER) (test 4.5 meq/L 3.5-5.1 fdfo=133) CHLORIDE (BEAKER) (test 104 meq/L 98-107 ikmb=134) CO2 (BEAKER) (test 19 meq/L 22-29 kpwv=193) BLOOD UREA NITROGEN 30 mg/dL 7-21 (BEAKER) (test ggkb=490) CREATININE (BEAKER) (test 1.32 mg/dL 0.57-1.25 dobq=440) GLUCOSE RANDOM (BEAKER) 131 mg/dL 70-105 (test qwlv=873) CALCIUM (BEAKER) (test 7.9 mg/dL 8.4-10.2 paqj=767) EGFR (BEAKER) (test 53 mL/min/1.73 sq m ESTIMATED GFR IS NOT cbfe=5029) ACCURATE CREATININE CLEARANCE IN PREDICTING GLOMERULAR FILTRATION RATE. ESTIMATED GFR IS NOT APPLICABLE FOR DIALYSIS PATIENTS. POCT-GLUCOSE [id number] 21:16:00 Test Item Value Reference Range Comments POC-GLUCOSE METER (BEAKER) 230 mg/dL 70-110 TESTED AT [address] (test ywrm=0911) [place] [address] POCT-GLUCOSE [id number] 19:38:00 Test Item Value Reference Range Comments POC-GLUCOSE METER (BEAKER) 239 mg/dL 70-110 TESTED AT [address] (test ksyl=4877) [place] [address] BLOOD [id number] 18:00:00 Test Item Value Reference Range Comments CULTURE (BEAKER) (test vmbo=0547) No growth in 5 days BLOOD [id number] 18:00:00 Test Item Value Reference Range Comments CULTURE (BEAKER) (test fjoe=4189) No growth in 5 days POCT-GLUCOSE [id number] 11:57:00 Test Item Value Reference Range Comments POC-GLUCOSE METER (BEAKER) 203 mg/dL 70-110 TESTED AT [address] (test ijxo=3453) [place] [address] POCT-GLUCOSE [id number] 08:50:00 Test Item Value Reference Range Comments POC-GLUCOSE METER (BEAKER) 140 mg/dL 70-110 TESTED AT [address] (test bcgt=2501) [place] [address] BASIC METABOLIC [id number] 05:31:00 Test Item Value Reference Range Comments SODIUM (BEAKER) (test 134 meq/L 136-145 afei=450) POTASSIUM (BEAKER) (test 4.7 meq/L 3.5-5.1 rulf=038) CHLORIDE (BEAKER) (test 104 meq/L 98-107 dzqx=489) CO2 (BEAKER) (test 24 meq/L 22-29 skmj=083) BLOOD UREA NITROGEN 29 mg/dL 7-21 (BEAKER) (test geiw=327) CREATININE (BEAKER) (test 1.38 mg/dL 0.57-1.25 oayc=177) GLUCOSE RANDOM (BEAKER) 139 mg/dL 70-105 (test ckxo=905) CALCIUM (BEAKER) (test 8.1 mg/dL 8.4-10.2 lvbr=162) EGFR (BEAKER) (test 50 mL/min/1.73 sq m ESTIMATED GFR IS NOT tzyd=6336) ACCURATE CREATININE CLEARANCE IN PREDICTING GLOMERULAR FILTRATION RATE. ESTIMATED GFR IS NOT APPLICABLE FOR DIALYSIS PATIENTS. CBC W/PLT COUNT & AUTO [id number] 05:08:00 Test Item Value Reference Range Comments WHITE BLOOD CELL COUNT (BEAKER) (test hfqq=095) 11.7 K/ L 3.5-10.5 RED BLOOD CELL COUNT (BEAKER) (test xluy=737) 3.06 M/ L 4.63-6.08 HEMOGLOBIN (BEAKER) (test jngv=915) 9.8 GM/DL 13.7-17.5 HEMATOCRIT (BEAKER) (test mnsd=509) 31.3 % 40.1-51.0 MEAN CORPUSCULAR VOLUME (BEAKER) (test qvvi=695) 102.3 fL 79.0-92.2 MEAN CORPUSCULAR HEMOGLOBIN (BEAKER) (test 32.0 pg 25.7-32.2 gfvy=645) MEAN CORPUSCULAR HEMOGLOBIN CONC (BEAKER) (test 31.3 GM/DL 32.3-36.5 vepp=951) RED CELL DISTRIBUTION WIDTH (BEAKER) (test 15.5 % 11.6-14.4 dpst=989) PLATELET COUNT (BEAKER) (test xmwk=150) 576 K/CU MM 150-450 MEAN PLATELET VOLUME (BEAKER) (test cqpz=783) 9.8 fL 9.4-12.4 NUCLEATED RED BLOOD CELLS (BEAKER) (test 0 /100 WBC 0-0 zomz=688) NEUTROPHILS RELATIVE PERCENT (BEAKER) (test 78 % hucw=461) LYMPHOCYTES RELATIVE PERCENT (BEAKER) (test 8 % ehdo=759) MONOCYTES RELATIVE PERCENT (BEAKER) (test 6 % kwyt=540) EOSINOPHILS RELATIVE PERCENT (BEAKER) (test 5 % wkbt=776) BASOPHILS RELATIVE PERCENT (BEAKER) (test 1 % doqs=763) NEUTROPHILS ABSOLUTE COUNT (BEAKER) (test 9.20 K/ L 1.78-5.38 vznj=988) LYMPHOCYTES ABSOLUTE COUNT (BEAKER) (test 0.98 K/ L 1.32-3.57 tnub=436) MONOCYTES ABSOLUTE COUNT (BEAKER) (test 0.71 K/ L 0.30-0.82 hzkd=059) EOSINOPHILS ABSOLUTE COUNT (BEAKER) (test 0.60 K/ L 0.04-0.54 ijsq=119) BASOPHILS ABSOLUTE COUNT (BEAKER) (test 0.06 K/ L 0.01-0.08 dwth=552) IMMATURE GRANULOCYTES-RELATIVE PERCENT (BEAKER) 2 % 0-1 (test letf=5669) POCT-GLUCOSE [id number] 21:11:00 Test Item Value Reference Range Comments POC-GLUCOSE METER (BEAKER) 195 mg/dL 70-110 TESTED AT [address] (test kqua=3867) [facility] [address] POCT-GLUCOSE [id number] 17:47:00 Test Item Value Reference Range Comments POC-GLUCOSE METER (BEAKER) 175 mg/dL 70-110 TESTED AT [address] (test aikr=9320) [facility] [address] POCT-GLUCOSE [id number] 12:31:00 Test Item Value Reference Range Comments POC-GLUCOSE METER (BEAKER) 219 mg/dL 70-110 TESTED AT [address] (test cpjw=3065) [place] [id number] 10:59:00 Test Item Value Reference Range Comments MAGNESIUM (BEAKER) (test cwjp=509) 1.9 mg/dL 1.6-2.6 BASIC METABOLIC [id number] 10:59:00 Test Item Value Reference Range Comments SODIUM (BEAKER) (test 134 meq/L 136-145 gcua=704) POTASSIUM (BEAKER) (test 4.4 meq/L 3.5-5.1 xsko=827) CHLORIDE (BEAKER) (test 104 meq/L 98-107 wcog=678) CO2 (BEAKER) (test 23 meq/L 22-29 udmb=654) BLOOD UREA NITROGEN 29 mg/dL 7-21 (BEAKER) (test tkqk=907) CREATININE (BEAKER) (test 1.54 mg/dL 0.57-1.25 vwrp=040) GLUCOSE RANDOM (BEAKER) 156 mg/dL 70-105 (test ceep=565) CALCIUM (BEAKER) (test 8.1 mg/dL 8.4-10.2 zayp=658) EGFR (BEAKER) (test 44 mL/min/1.73 sq m ESTIMATED GFR IS NOT hefd=0512) ACCURATE CREATININE CLEARANCE IN PREDICTING GLOMERULAR FILTRATION RATE. ESTIMATED GFR IS NOT APPLICABLE FOR DIALYSIS PATIENTS. POCT-GLUCOSE [id number] 08:13:00 Test Item Value Reference Range Comments POC-GLUCOSE METER (BEAKER) 159 mg/dL 70-[address] [facility] [address] [facility] (test ozzl=0571) [facility] [address] CBC W/PLT COUNT & AUTO [id number] 05:28:00 Test Item Value Reference Range Comments WHITE BLOOD CELL COUNT (BEAKER) (test rgoi=934) 13.8 K/ L 3.5-10.5 RED BLOOD CELL COUNT (BEAKER) (test ntdp=598) 2.68 M/ L 4.63-6.08 HEMOGLOBIN (BEAKER) (test frnb=196) 8.3 GM/DL 13.7-17.5 HEMATOCRIT (BEAKER) (test kxur=492) 27.7 % 40.1-51.0 MEAN CORPUSCULAR VOLUME (BEAKER) (test rwjy=300) 103.4 fL 79.0-92.2 MEAN CORPUSCULAR HEMOGLOBIN (BEAKER) (test 31.0 pg 25.7-32.2 cgox=652) MEAN CORPUSCULAR HEMOGLOBIN CONC (BEAKER) (test 30.0 GM/DL 32.3-36.5 pamh=674) RED CELL DISTRIBUTION WIDTH (BEAKER) (test 15.6 % 11.6-14.4 rsps=619) PLATELET COUNT (BEAKER) (test fvuy=363) 541 K/CU MM 150-450 MEAN PLATELET VOLUME (BEAKER) (test mxkd=194) 11.0 fL 9.4-12.4 NUCLEATED RED BLOOD CELLS (BEAKER) (test 0 /100 WBC 0-0 pvnz=639) NEUTROPHILS RELATIVE PERCENT (BEAKER) (test 79 % fmmb=138) LYMPHOCYTES RELATIVE PERCENT (BEAKER) (test 8 % ivbz=267) MONOCYTES RELATIVE PERCENT (BEAKER) (test 7 % pqta=030) EOSINOPHILS RELATIVE PERCENT (BEAKER) (test 4 % gtnn=497) BASOPHILS RELATIVE PERCENT (BEAKER) (test 1 % ualt=566) NEUTROPHILS ABSOLUTE COUNT (BEAKER) (test 10.87 K/ L 1.78-5.38 dptj=479) LYMPHOCYTES ABSOLUTE COUNT (BEAKER) (test 1.05 K/ L 1.32-3.57 gnaz=367) MONOCYTES ABSOLUTE COUNT (BEAKER) (test 0.91 K/ L 0.30-0.82 tgch=778) EOSINOPHILS ABSOLUTE COUNT (BEAKER) (test 0.61 K/ L 0.04-0.54 fwdw=935) BASOPHILS ABSOLUTE COUNT (BEAKER) (test 0.09 K/ L 0.01-0.08 kqqu=483) IMMATURE GRANULOCYTES-RELATIVE PERCENT (BEAKER) 2 % 0-1 (test qsbi=0288) POCT-GLUCOSE [id number] 21:07:00 Test Item Value Reference Range Comments POC-GLUCOSE METER (BEAKER) 201 mg/dL 70-110 TESTED AT [address] (test ljie=0485) [place] [address] POCT-GLUCOSE [id number] 17:02:00 Test Item Value Reference Range Comments POC-GLUCOSE METER (BEAKER) 229 mg/dL 70-110 TESTED AT [address] (test ajxq=0356) [place] [address] POCT-GLUCOSE [id number] 12:10:00 Test Item Value Reference Range Comments POC-GLUCOSE METER (BEAKER) 225 mg/dL 70-110 TESTED AT [address] (test fvqp=3367) [place] [address] URINE [id number] 08:57:00 Test Item Value Reference Range Comments CULTURE (BEAKER) (test gmdt=2903) No growth GRAM STAIN RESULT (BEAKER) (test No WBCs lxkc=6049) GRAM STAIN RESULT (BEAKER) (test No organisms seen wxry=40385) POCT-GLUCOSE [id number] 07:40:00 Test Item Value Reference Range Comments POC-GLUCOSE METER (BEAKER) 207 mg/dL 70-110 TESTED AT [address] (test jjrz=6455) [place] [address] [id number] 05:58:00 Test Item Value Reference Range Comments MAGNESIUM (BEAKER) (test ryhm=808) 1.7 mg/dL 1.6-2.6 BASIC METABOLIC [id number] 05:58:00 Test Item Value Reference Range Comments SODIUM (BEAKER) (test 134 meq/L 136-145 qwqi=840) POTASSIUM (BEAKER) (test 4.3 meq/L 3.5-5.1 zwfq=114) CHLORIDE (BEAKER) (test 104 meq/L 98-107 hgvh=366) CO2 (BEAKER) (test 22 meq/L 22-29 qtnn=491) BLOOD UREA NITROGEN 29 mg/dL 7-21 (BEAKER) (test ximt=237) CREATININE (BEAKER) (test 1.39 mg/dL 0.57-1.25 ruvh=320) GLUCOSE RANDOM (BEAKER) 135 mg/dL 70-105 (test kjah=753) CALCIUM (BEAKER) (test 8.2 mg/dL 8.4-10.2 pbvm=725) EGFR (BEAKER) (test 50 mL/min/1.73 sq m ESTIMATED GFR IS NOT ffln=8473) ACCURATE CREATININE CLEARANCE IN PREDICTING GLOMERULAR FILTRATION RATE. ESTIMATED GFR IS NOT APPLICABLE FOR DIALYSIS PATIENTS. CBC W/PLT COUNT & AUTO [id number] 05:08:00 Test Item Value Reference Range Comments WHITE BLOOD CELL COUNT (BEAKER) (test hwvy=879) 14.8 K/ L 3.5-10.5 RED BLOOD CELL COUNT (BEAKER) (test xvhh=654) 3.11 M/ L 4.63-6.08 HEMOGLOBIN (BEAKER) (test wgcs=096) 9.9 GM/DL 13.7-17.5 HEMATOCRIT (BEAKER) (test apmw=085) 32.0 % 40.1-51.0 MEAN CORPUSCULAR VOLUME (BEAKER) (test ytrl=505) 102.9 fL 79.0-92.2 MEAN CORPUSCULAR HEMOGLOBIN (BEAKER) (test 31.8 pg 25.7-32.2 lkrz=316) MEAN CORPUSCULAR HEMOGLOBIN CONC (BEAKER) (test 30.9 GM/DL 32.3-36.5 pwbr=990) RED CELL DISTRIBUTION WIDTH (BEAKER) (test 15.6 % 11.6-14.4 kfqy=524) PLATELET COUNT (BEAKER) (test aktz=148) 580 K/CU MM 150-450 MEAN PLATELET VOLUME (BEAKER) (test iilg=140) 10.3 fL 9.4-12.4 NUCLEATED RED BLOOD CELLS (BEAKER) (test 0 /100 WBC 0-0 ujdo=153) NEUTROPHILS RELATIVE PERCENT (BEAKER) (test 79 % fhjc=121) LYMPHOCYTES RELATIVE PERCENT (BEAKER) (test 8 % piba=801) MONOCYTES RELATIVE PERCENT (BEAKER) (test 6 % nmdu=050) EOSINOPHILS RELATIVE PERCENT (BEAKER) (test 4 % nwuq=902) BASOPHILS RELATIVE PERCENT (BEAKER) (test 1 % akyl=188) NEUTROPHILS ABSOLUTE COUNT (BEAKER) (test 11.68 K/ L 1.78-5.38 kbtv=372) LYMPHOCYTES ABSOLUTE COUNT (BEAKER) (test 1.21 K/ L 1.32-3.57 uhpf=934) MONOCYTES ABSOLUTE COUNT (BEAKER) (test 0.89 K/ L 0.30-0.82 ucff=612) EOSINOPHILS ABSOLUTE COUNT (BEAKER) (test 0.61 K/ L 0.04-0.54 hegs=275) BASOPHILS ABSOLUTE COUNT (BEAKER) (test 0.09 K/ L 0.01-0.08 tdgq=534) IMMATURE GRANULOCYTES-RELATIVE PERCENT (BEAKER) 2 % 0-1 (test cpjd=7326) POCT-GLUCOSE [id number] 21:17:00 Test Item Value Reference Range Comments POC-GLUCOSE METER (BEAKER) 260 mg/dL 70-110 TESTED AT [address] (test hjhz=8587) [place] [address] POCT-GLUCOSE [id number] 17:10:00 Test Item Value Reference Range Comments POC-GLUCOSE METER (BEAKER) 190 mg/dL 70-110 TESTED AT [address] (test pkwz=5723) [place] [id number] POCT-GLUCOSE [id number] 12:17:00 Test Item Value Reference Range Comments POC-GLUCOSE METER (BEAKER) 241 mg/dL 70-110 TESTED AT [address] (test kbwz=7429) [place] [address] CBC W/PLT COUNT & AUTO [id number] 08:29:00 Test Item Value Reference Range Comments WHITE BLOOD CELL COUNT (BEAKER) (test mila=580) 16.5 K/ L 3.5-10.5 RED BLOOD CELL COUNT (BEAKER) (test pval=788) 2.83 M/ L 4.63-6.08 HEMOGLOBIN (BEAKER) (test wsrx=695) 8.8 GM/DL 13.7-17.5 HEMATOCRIT (BEAKER) (test mnmk=864) 28.8 % 40.1-51.0 MEAN CORPUSCULAR VOLUME (BEAKER) (test xncu=812) 101.8 fL 79.0-92.2 MEAN CORPUSCULAR HEMOGLOBIN (BEAKER) (test 31.1 pg 25.7-32.2 azjv=615) MEAN CORPUSCULAR HEMOGLOBIN CONC (BEAKER) (test 30.6 GM/DL 32.3-36.5 yboh=559) RED CELL DISTRIBUTION WIDTH (BEAKER) (test 15.4 % 11.6-14.4 wdne=188) PLATELET COUNT (BEAKER) (test vdim=803) 535 K/CU MM 150-450 MEAN PLATELET VOLUME (BEAKER) (test emxg=908) 10.7 fL 9.4-12.4 NUCLEATED RED BLOOD CELLS (BEAKER) (test 1 /100 WBC 0-0 ojay=260) NEUTROPHILS RELATIVE PERCENT (BEAKER) (test 78 % xzry=209) LYMPHOCYTES RELATIVE PERCENT (BEAKER) (test 9 % bglx=284) MONOCYTES RELATIVE PERCENT (BEAKER) (test 7 % aeng=332) EOSINOPHILS RELATIVE PERCENT (BEAKER) (test 3 % iuso=247) BASOPHILS RELATIVE PERCENT (BEAKER) (test 0 % nfgs=044) NEUTROPHILS ABSOLUTE COUNT (BEAKER) (test 12.77 K/ L 1.78-5.38 tprp=473) LYMPHOCYTES ABSOLUTE COUNT (BEAKER) (test 1.45 K/ L 1.32-3.57 mwve=551) MONOCYTES ABSOLUTE COUNT (BEAKER) (test 1.12 K/ L 0.30-0.82 ensg=909) EOSINOPHILS ABSOLUTE COUNT (BEAKER) (test 0.55 K/ L 0.04-0.54 krcp=497) BASOPHILS ABSOLUTE COUNT (BEAKER) (test 0.07 K/ L 0.01-0.08 twab=960) IMMATURE GRANULOCYTES-RELATIVE PERCENT (BEAKER) 3 % 0-1 (test zyug=0621) (MANUAL DIFFERENTIAL)2017-08-06 08:29:00 Test Item Value Reference Range Comments TOTAL COUNTED (BEAKER) (test dfuv=2538) POCT-GLUCOSE [id number] 07:22:00 Test Item Value Reference Range Comments POC-GLUCOSE METER (BEAKER) 183 mg/dL 70-110 TESTED AT [address] (test mhmz=2915) [facility] [address] [id number] 06:21:00 Test Item Value Reference Range Comments MAGNESIUM (BEAKER) (test bsmw=564) 1.9 mg/dL 1.6-2.6 BASIC METABOLIC [id number] 06:21:00 Test Item Value Reference Range Comments SODIUM (BEAKER) (test 134 meq/L 136-145 cevf=888) POTASSIUM (BEAKER) (test 3.8 meq/L 3.5-5.1 gqnl=631) CHLORIDE (BEAKER) (test 101 meq/L 98-107 dnjy=623) CO2 (BEAKER) (test 23 meq/L 22-29 mxgj=405) BLOOD UREA NITROGEN 36 mg/dL 7-21 (BEAKER) (test ntnj=230) CREATININE (BEAKER) (test 1.49 mg/dL 0.57-1.25 whqc=534) GLUCOSE RANDOM (BEAKER) 139 mg/dL 70-105 (test afjd=684) CALCIUM (BEAKER) (test 8.0 mg/dL 8.4-10.2 leru=615) EGFR (BEAKER) (test 46 mL/min/1.73 sq m ESTIMATED GFR IS NOT qxwv=9726) ACCURATE CREATININE CLEARANCE IN PREDICTING GLOMERULAR FILTRATION RATE. ESTIMATED GFR IS NOT APPLICABLE FOR DIALYSIS PATIENTS. BLOOD [id number] 02:41:00 Test Item Value Reference Range Comments CULTURE (BEAKER) From Aerobic Bottle Only (test ebne=9769) Same organism has been isolated from cultures(s) of the same body site and collection date. Repeat identification and susceptibility testing performed only after consultation with the clinical microbiology laboratory.Refer to previous culture ofEnterobacter cloacae GRAM STAIN RESULT From aerobic bottle (BEAKER) (test only: gram negative slwl=5297) rods ANAEROBIC [id number] 23:46:00 Test Item Value Reference Range Comments CULTURE (BEAKER) (test hkpz=5835) No anaerobes isolated POCT-GLUCOSE [id number] 20:54:00 Test Item Value Reference Range Comments POC-GLUCOSE METER (BEAKER) 241 mg/dL 70-110 TESTED AT [address] (test wvzl=4773) [facility] [address] RAD, CHEST, 1 VIEW, NON [id number] 19:11:00Reason for exam:-> leukocytosisShould this be performed [...] MDReport Verified Date/Time: 08/05/2017 19:11:15 Reading Location: [address] Reading Room POCT-GLUCOSE [id number] 18:02:00 Test Item Value Reference Range Comments POC-GLUCOSE METER (BEAKER) 169 mg/dL 70-110 TESTED AT [address] (test olxq=6314) [facility] [address] CT, BRAIN, WITHOUT [id number] 17:19:00Reason for exam:->evaluate for bleedingWhat is the [...] MRI is recommended. Signed : Miguel Gallardo Verified Date/Time: 08/05/2017 17:19:56 Reading Location: [facility] Reading Room POCT-GLUCOSE [id number] 11:59: 00 Test Item Value Reference Range Comments POC-GLUCOSE METER (BEAKER) 220 mg/dL 70-110 TESTED AT [address] (test ywbl=1534) [place] [address] URINALYSIS W/ [id number] 10:10:00 Test Item Value Reference Range Comments COLOR (BEAKER) (test wgub=719) Yellow CLARITY (BEAKER) (test tfky=880) Clear SPECIFIC GRAVITY UA (BEAKER) (test ypqq=043) 1.015 1.001-1.035 PH UA (BEAKER) (test dcdf=057) 5.5 5.0-8.0 PROTEIN UA (BEAKER) (test xocx=407) 10 mg/dL Negative GLUCOSE UA (BEAKER) (test nwla=400) Negative Negative KETONES UA (BEAKER) (test tmwl=255) Negative Negative BILIRUBIN UA (BEAKER) (test opeg=610) Negative Negative BLOOD UA (BEAKER) (test yfwl=240) Trace Negative NITRITE UA (BEAKER) (test fxqq=637) Negative Negative LEUKOCYTE ESTERASE UA (BEAKER) (test auhh=265) Large Negative UROBILINOGEN UA (BEAKER) (test ydly=415) 3.0 mg/dL 0.2-1.0 RBC UA (BEAKER) (test hjzn=771) 1 /HPF WBC UA (BEAKER) (test tkve=016) 29 /HPF BACTERIA (BEAKER) (test ekdb=798) Rare MUCUS (BEAKER) (test htpu=1228) Rare SQUAMOUS EPITHELIAL (BEAKER) (test tiyz=090) < /HPF SOURCE(BEAKER) (test cprs=9488) Urine, Frances POCT-GLUCOSE [id number] 08:49:00 Test Item Value Reference Range Comments POC-GLUCOSE METER (BEAKER) 203 mg/dL 70-110 TESTED AT [address] (test mlfq=1720) [place] [id number] CBC W/PLT COUNT & AUTO [id number] 08:10:00 Test Item Value Reference Range Comments WHITE BLOOD CELL COUNT (BEAKER) (test nhxx=431) 17.3 K/ L 3.5-10.5 RED BLOOD CELL COUNT (BEAKER) (test mgex=000) 2.80 M/ L 4.63-6.08 HEMOGLOBIN (BEAKER) (test ajvh=985) 9.0 GM/DL 13.7-17.5 HEMATOCRIT (BEAKER) (test cvav=868) 28.9 % 40.1-51.0 MEAN CORPUSCULAR VOLUME (BEAKER) (test xcto=440) 103.2 fL 79.0-92.2 MEAN CORPUSCULAR HEMOGLOBIN (BEAKER) (test 32.1 pg 25.7-32.2 nluo=427) MEAN CORPUSCULAR HEMOGLOBIN CONC (BEAKER) (test 31.1 GM/DL 32.3-36.5 sysv=379) RED CELL DISTRIBUTION WIDTH (BEAKER) (test 15.8 % 11.6-14.4 wrzc=750) PLATELET COUNT (BEAKER) (test nwqr=980) 500 K/CU MM 150-450 MEAN PLATELET VOLUME (BEAKER) (test xoih=501) 10.7 fL 9.4-12.4 NUCLEATED RED BLOOD CELLS (BEAKER) (test 1 /100 WBC 0-0 qnhx=440) NEUTROPHILS RELATIVE PERCENT (BEAKER) (test 80 % jjfw=566) LYMPHOCYTES RELATIVE PERCENT (BEAKER) (test 8 % bexp=032) MONOCYTES RELATIVE PERCENT (BEAKER) (test 7 % qcdh=708) EOSINOPHILS RELATIVE PERCENT (BEAKER) (test 3 % jwll=007) BASOPHILS RELATIVE PERCENT (BEAKER) (test 1 % stxv=593) NEUTROPHILS ABSOLUTE COUNT (BEAKER) (test 13.74 K/ L 1.78-5.38 oqxs=509) LYMPHOCYTES ABSOLUTE COUNT (BEAKER) (test 1.43 K/ L 1.32-3.57 cuvt=631) MONOCYTES ABSOLUTE COUNT (BEAKER) (test 1.14 K/ L 0.30-0.82 zsld=489) EOSINOPHILS ABSOLUTE COUNT (BEAKER) (test 0.47 K/ L 0.04-0.54 nbsc=319) BASOPHILS ABSOLUTE COUNT (BEAKER) (test 0.09 K/ L 0.01-0.08 pqfd=295) IMMATURE GRANULOCYTES-RELATIVE PERCENT (BEAKER) 2 % 0-1 (test agwh=0651) BASIC METABOLIC [id number] 05:29:00 Test Item Value Reference Range Comments SODIUM (BEAKER) (test 138 meq/L 136-145 agcj=538) POTASSIUM (BEAKER) (test 4.0 meq/L 3.5-5.1 yrcw=331) CHLORIDE (BEAKER) (test 106 meq/L 98-107 wivz=948) CO2 (BEAKER) (test 22 meq/L 22-29 lezm=540) BLOOD UREA NITROGEN 46 mg/dL 7-21 (BEAKER) (test mtkk=646) CREATININE (BEAKER) (test 1.77 mg/dL 0.57-1.25 vylv=267) GLUCOSE RANDOM (BEAKER) 162 mg/dL 70-105 (test ensu=412) CALCIUM (BEAKER) (test 7.9 mg/dL 8.4-10.2 omsb=381) EGFR (BEAKER) (test 38 mL/min/1.73 sq m ESTIMATED GFR IS NOT jflo=5206) ACCURATE CREATININE CLEARANCE IN PREDICTING GLOMERULAR FILTRATION RATE. ESTIMATED GFR IS NOT APPLICABLE FOR DIALYSIS PATIENTS. [id number] 05:28:00 Test Item Value Reference Range Comments MAGNESIUM (BEAKER) (test iyuv=165) 2.1 mg/dL 1.6-2.6 POCT-GLUCOSE [id number] 21:28:00 Test Item Value Reference Range Comments POC-GLUCOSE METER (BEAKER) 240 mg/dL 70-110 TESTED AT [address] (test ggdz=5862) [place] [id number] POCT-GLUCOSE [id number] 18:29:00 Test Item Value Reference Range Comments POC-GLUCOSE METER (BEAKER) 255 mg/dL 70-110 TESTED AT [address] (test wpiv=4242) [place] [address] POCT-GLUCOSE [id number] 16:59:00 Test Item Value Reference Range Comments POC-GLUCOSE METER (BEAKER) 207 mg/dL 70-110 TESTED AT [address] (test hhbv=2326) [place] [address] SURGICALLY OBTAINED CULTURE + GRAM [id number] 16:19:00 Test Item Value Reference Range Comments CULTURE (BEAKER) (test aqzq=6661) Amikacin (test code=1) Aztreonam (test code=32) Cefepime (test code=51) Cefoxitin (test code=68) Ceftazidime (test code=27) Ceftriaxone (test code=52) Gentamicin (test code=18) Levofloxacin (test code=22) Meropenem (test code=34) Nitrofurantoin (test code=23) Piperacillin + Tazobactam (test code=29) Tetracycline (test code=2) Tobramycin (test code=25) Trimethoprim + Sulfamethoxazole (test code=47) CULTURE (BEAKER) (test 1+ Enterobacter cloacae fvhz=7811) complexAmpC Positive GRAM STAIN RESULT (BEAKER) 1+ WBCs (test fxhl=2030) GRAM STAIN RESULT (BEAKER) No organisms seen (test xsul=620131) POCT-GLUCOSE [id number] 08:47:00 Test Item Value Reference Range Comments POC-GLUCOSE METER (BEAKER) 167 mg/dL 70-[address] [facility] [address] [place] [address] (test mxfs=6913) [facility] [address] BASIC METABOLIC [id number] 08:10:00 Test Item Value Reference Range Comments SODIUM (BEAKER) (test 137 meq/L 136-145 xbcu=803) POTASSIUM (BEAKER) (test 3.7 meq/L 3.5-5.1 wiel=070) CHLORIDE (BEAKER) (test 106 meq/L 98-107 mwuk=673) CO2 (BEAKER) (test 21 meq/L 22-29 povu=652) BLOOD UREA NITROGEN 55 mg/dL 7-21 (BEAKER) (test sjmb=581) CREATININE (BEAKER) (test 2.06 mg/dL 0.57-1.25 rpfm=277) GLUCOSE RANDOM (BEAKER) 168 mg/dL 70-105 (test adhq=622) CALCIUM (BEAKER) (test 7.5 mg/dL 8.4-10.2 vjra=274) EGFR (BEAKER) (test 32 mL/min/1.73 sq m ESTIMATED GFR IS NOT tshs=1206) ACCURATE CREATININE CLEARANCE IN PREDICTING GLOMERULAR FILTRATION RATE. ESTIMATED GFR IS NOT APPLICABLE FOR DIALYSIS PATIENTS. POCT-GLUCOSE [id number] 20:37:00 Test Item Value Reference Range Comments POC-GLUCOSE METER (BEAKER) 232 mg/dL 70-110 TESTED AT [address] (test qvcc=3212) [place] [id number] POCT-GLUCOSE [id number] 17:10:00 Test Item Value Reference Range Comments POC-GLUCOSE METER (BEAKER) 256 mg/dL 70-110 TESTED AT [address] (test zbva=0665) [place] [address] RAD, ABDOMEN/KUB, 1 VIEW [id number] 13:37:00Reason for exam:->abdominal pain,FINAL REPORT Comparison: None Discussion: Abdomen: Bowel gas pattern is nonobstructed. Evaluation for free intraperitoneal air is limited due to technique and positioning. Stentprojects over the lower abdomen and pelvis. No acute skeletal abnormality. Impression: 1. Nonspecific bowel gas pattern. Signed: Emerson Palaciosort Verified Date/Time: 08/03/2017 13:37:00 Reading Location: [address] Transitional Reading Room POCT-GLUCOSE [id number] 12:03:00 Test Item Value Reference Range Comments POC-GLUCOSE METER (BEAKER) 233 mg/dL 70-110 TESTED AT [address] (test azsn=8383) [place] [address] RAD, CHEST, 1 VIEW, NON [id number] 08:43:00Reason for exam:->chest tubeShould this be performed at the bedside?->YesFINAL REPORT CLINICAL HISTORY: chest tube TECHNIQUE: 1 view of the chest. COMPARISON : 08/02/2017 IMPRESSION: A midline chest drain and tube are again seen. There is no pneumothorax. Mild bilateral airspace opacities and trace pleural effusions are again seen. The cardiomediastinal silhouette is magnified by technique with sternotomy wires. Signed: Audrey Pyleort Verified Date/Time: 2017 08:43:25 Reading Location: [facility] C013V Neuro Reading Room POCT- GLUCOSE [id number] 07:32:00 Test Item Value Reference Range Comments POC-GLUCOSE METER (BEAKER) 182 mg/dL 70-[address] [facility] [address] (test gmti=3425) [facility] [address] BASIC METABOLIC [id number] 06:44:00 Test Item Value Reference Range Comments SODIUM (BEAKER) (test 135 meq/L 136-145 hleo=340) POTASSIUM (BEAKER) (test 3.5 meq/L 3.5-5.1 hypc=391) CHLORIDE (BEAKER) (test 100 meq/L 98-107 oixu=295) CO2 (BEAKER) (test 23 meq/L 22-29 aryc=520) BLOOD UREA NITROGEN 56 mg/dL 7-21 (BEAKER) (test aelk=719) CREATININE (BEAKER) (test 2.47 mg/dL 0.57-1.25 tlld=365) GLUCOSE RANDOM (BEAKER) 160 mg/dL 70-105 (test wchj=514) CALCIUM (BEAKER) (test 7.6 mg/dL 8.4-10.2 hxls=654) EGFR (BEAKER) (test 26 mL/min/1.73 sq m ESTIMATED GFR IS NOT nqbk=2077) ACCURATE CREATININE CLEARANCE IN PREDICTING GLOMERULAR FILTRATION RATE. ESTIMATED GFR IS NOT APPLICABLE FOR DIALYSIS PATIENTS. BLOOD [id number] 06:14:00 Test Item Value Reference Range Comments CULTURE (BEAKER) (test vgmu=3488) Amikacin (test code=1) Aztreonam (test code=32) Cefepime (test code=51) Cefoxitin (test code=68) Ceftazidime (test code=27) Ceftriaxone (test code=52) Ertapenem (test code=38) Gentamicin (test code=18) Levofloxacin (test code=22) Meropenem (test code=34) Nitrofurantoin (test code=23) Piperacillin + Tazobactam (test code=29) Tetracycline (test code=2) Tobramycin (test code=25) Trimethoprim + Sulfamethoxazole (test code=47) CULTURE (BEAKER) (test From Aerobic And xmqp=4197) Anaerobic Bottles Enterobacter cloacae GRAM STAIN RESULT (BEAKER) From aerobic and (test zaah=9021) anaerobic bottles: gram negative rods ENTEROBACTER CLOACAE COMPLEX DETECTEDKPC (a carbapenamase gene) not detectedFirst line therapy: cefepime or meropenemOther organisms and resistance markers not contained in this PCR panel cannot be excluded and follow-up of traditional culture results is required. This sample was tested at the [facility] Clinical Microbiology Laboratory using the [employer] Blood Culture ID Panel. This test is FDAcleared for in vitro diagnostic use and has been verified and approved by the [facility] Clinical Microbiology laboratory for clinical use. Reference Range: Not DetectedSPIN/CONCENTRATION [id number] 05:57:00 Test Item Value Reference Range Comments CONCENTRATION CHARGED (BEAKER) (test wsxc=2733) Done CBC W/PLT COUNT & AUTO [id number] 05:37:00 Test Item Value Reference Range Comments WHITE BLOOD CELL COUNT (BEAKER) (test cnwu=118) 17.8 K/ L 3.5-10.5 RED BLOOD CELL COUNT (BEAKER) (test htxy=969) 2.71 M/ L 4.63-6.08 HEMOGLOBIN (BEAKER) (test exgb=558) 8.8 GM/DL 13.7-17.5 HEMATOCRIT (BEAKER) (test nctx=016) 27.5 % 40.1-51.0 MEAN CORPUSCULAR VOLUME (BEAKER) (test aomc=770) 101.5 fL 79.0-92.2 MEAN CORPUSCULAR HEMOGLOBIN (BEAKER) (test 32.5 pg 25.7-32.2 gujp=303) MEAN CORPUSCULAR HEMOGLOBIN CONC (BEAKER) (test 32.0 GM/DL 32.3-36.5 trpn=527) RED CELL DISTRIBUTION WIDTH (BEAKER) (test 15.5 % 11.6-14.4 aacq=145) PLATELET COUNT (BEAKER) (test webb=977) 370 K/CU MM 150-450 MEAN PLATELET VOLUME (BEAKER) (test eods=916) 10.8 fL 9.4-12.4 NUCLEATED RED BLOOD CELLS (BEAKER) (test 0 /100 WBC 0-0 avus=222) NEUTROPHILS RELATIVE PERCENT (BEAKER) (test 84 % krri=924) LYMPHOCYTES RELATIVE PERCENT (BEAKER) (test 7 % ggda=194) MONOCYTES RELATIVE PERCENT (BEAKER) (test 6 % dpna=680) EOSINOPHILS RELATIVE PERCENT (BEAKER) (test 1 % prpx=656) BASOPHILS RELATIVE PERCENT (BEAKER) (test 0 % slun=987) NEUTROPHILS ABSOLUTE COUNT (BEAKER) (test 14.95 K/ L 1.78-5.38 jouj=736) LYMPHOCYTES ABSOLUTE COUNT (BEAKER) (test 1.17 K/ L 1.32-3.57 frjn=038) MONOCYTES ABSOLUTE COUNT (BEAKER) (test 1.12 K/ L 0.30-0.82 nalk=622) EOSINOPHILS ABSOLUTE COUNT (BEAKER) (test 0.22 K/ L 0.04-0.54 nmre=045) BASOPHILS ABSOLUTE COUNT (BEAKER) (test 0.04 K/ L 0.01-0.08 rhtk=626) IMMATURE GRANULOCYTES-RELATIVE PERCENT (BEAKER) 1 % 0-1 (test uvku=3476) POCT-GLUCOSE [id number] 20:08:00 Test Item Value Reference Range Comments POC-GLUCOSE METER (BEAKER) 188 mg/dL 70-110 TESTED AT [address] (test cltl=3919) [facility] [address] RAD, CHEST, 1 VIEW, NON [id number] 18:24:00Reason for exam:->chest tubeShould this be performed [...] MDReport Verified Date/Time: 08/02/2017 18:24:48 Reading Location: [address] Reading Room Electronically signed by: CJ SPENCER on 06:24 PMPOCT-GLUCOSE [id number] 17:07:00 Test Item Value Reference Range Comments POC-GLUCOSE METER (BEAKER) 183 mg/dL 70-110 TESTED AT [address] (test wyqn=1244) [facility] [address] MISCELLANEOUS LAB [id number] 16:20:00 Test Item Value Reference Range Comments SCAN RESULT (test myns=[id number]) Result comments: ENTEROBACTER CLOACAE COMPLEX DETECTED KPC (a carbapenamase gene ) not detected Firstline therapy: cefepime or meropenem Other organisms and resistance markers not contained in this PCRpanel cannot be excluded and follow- up of traditional culture results is required. This sample wastested at the [facility] Clinical Microbiology Laboratory using the [employer] Blood Culture ID Panel. This test is FDA cleared for in vitro diagnostic use and has been verified and approved by the [facility] Clinical Microbiology laboratory for clinical use. Reference Range: Not DetectedPOCT-GLUCOSE [id number] 12:45:00 Test Item Value Reference Range Comments POC-GLUCOSE METER (BEAKER) 262 mg/dL 70-[address] [facility] [address] (test ssvc=6080) [facility] [address] CBC W/PLT COUNT & AUTO [id number] 11:23:00 Test Item Value Reference Range Comments WHITE BLOOD CELL COUNT (BEAKER) (test uwju=620) 11.9 K/ L 3.5-10.5 RED BLOOD CELL COUNT (BEAKER) (test qebj=179) 2.77 M/ L 4.63-6.08 HEMOGLOBIN (BEAKER) (test akql=671) 8.9 GM/DL 13.7-17.5 HEMATOCRIT (BEAKER) (test hmxb=204) 28.1 % 40.1-51.0 MEAN CORPUSCULAR VOLUME (BEAKER) (test zfym=264) 101.4 fL 79.0-92.2 MEAN CORPUSCULAR HEMOGLOBIN (BEAKER) (test 32.1 pg 25.7-32.2 ztqj=562) MEAN CORPUSCULAR HEMOGLOBIN CONC (BEAKER) (test 31.7 GM/DL 32.3-36.5 bakp=249) RED CELL DISTRIBUTION WIDTH (BEAKER) (test 15.4 % 11.6-14.4 ndqt=148) PLATELET COUNT (BEAKER) (test scsb=798) 343 K/CU MM 150-450 MEAN PLATELET VOLUME (BEAKER) (test tyrw=237) 11.3 fL 9.4-12.4 NUCLEATED RED BLOOD CELLS (BEAKER) (test 1 /100 WBC 0-0 rsyi=884) NEUTROPHILS RELATIVE PERCENT (BEAKER) (test 83 % oosc=943) LYMPHOCYTES RELATIVE PERCENT (BEAKER) (test 6 % cphx=471) MONOCYTES RELATIVE PERCENT (BEAKER) (test 8 % grpf=471) EOSINOPHILS RELATIVE PERCENT (BEAKER) (test 1 % gkuu=482) BASOPHILS RELATIVE PERCENT (BEAKER) (test 0 % gwqb=368) NEUTROPHILS ABSOLUTE COUNT (BEAKER) (test 9.84 K/ L 1.78-5.38 wvkl=698) LYMPHOCYTES ABSOLUTE COUNT (BEAKER) (test 0.73 K/ L 1.32-3.57 owts=360) MONOCYTES ABSOLUTE COUNT (BEAKER) (test 0.93 K/ L 0.30-0.82 vxua=385) EOSINOPHILS ABSOLUTE COUNT (BEAKER) (test 0.13 K/ L 0.04-0.54 cnoh=023) BASOPHILS ABSOLUTE COUNT (BEAKER) (test 0.04 K/ L 0.01-0.08 wtml=671) IMMATURE GRANULOCYTES-RELATIVE PERCENT (BEAKER) 2 % 0-1 (test qfcr=3037) (MANUAL DIFFERENTIAL)2017-08-02 11:23:00 Test Item Value Reference Range Comments TOTAL COUNTED (BEAKER) (test gnxn=6531) WBC MORPHOLOGY (BEAKER) (test sokx=845) Normal LARGE PLT(BEAKER) (test jizq=0452) Present ACANTHOCYTES (BEAKER) (test iygi=833) 1+ few ANISOCYTOSIS (BEAKER) (test oetk=382) 1+ few HYPOCHROMIA (BEAKER) (test fyxk=518) 1+ few MACROCYTES (BEAKER) (test xkug=574) 1+ few POIKILOCYTES (BEAKER) (test iopf=748) 1+ few POLYCHROMATOPHILLIC RBCS(BEAKER) (test hfhr=908) 2+ moderate POCT-GLUCOSE [id number] 07:15:00 Test Item Value Reference Range Comments POC-GLUCOSE METER (BEAKER) 218 mg/dL 70-[address] [facility] [address] [facility] (test xkxx=4292) [facility] [address] BASIC METABOLIC [id number] 06:37:00 Test Item Value Reference Range Comments SODIUM (BEAKER) (test 137 meq/L 136-145 ryhn=392) POTASSIUM (BEAKER) (test 3.6 meq/L 3.5-5.1 yqhc=394) CHLORIDE (BEAKER) (test 104 meq/L 98-107 sohs=422) CO2 (BEAKER) (test 23 meq/L 22-29 zyne=009) BLOOD UREA NITROGEN 51 mg/dL 7-21 (BEAKER) (test agtb=525) CREATININE (BEAKER) (test 2.37 mg/dL 0.57-1.25 tebf=496) GLUCOSE RANDOM (BEAKER) 242 mg/dL 70-105 (test tddv=028) CALCIUM (BEAKER) (test 7.4 mg/dL 8.4-10.2 aqiq=786) EGFR (BEAKER) (test 27 mL/min/1.73 sq m ESTIMATED GFR IS NOT scsa=0472) ACCURATE CREATININE CLEARANCE IN PREDICTING GLOMERULAR FILTRATION RATE. ESTIMATED GFR IS NOT APPLICABLE FOR DIALYSIS PATIENTS. POCT-GLUCOSE [id number] 21:51:00 Test Item Value Reference Range Comments POC-GLUCOSE METER (BEAKER) 237 mg/dL 70-110 TESTED AT [address] (test jlrr=2802) [place] [address] POCT-GLUCOSE [id number] 17:18:00 Test Item Value Reference Range Comments POC-GLUCOSE METER (BEAKER) 175 mg/dL 70-110 TESTED AT [address] (test llej=6215) [place] [address] POCT-GLUCOSE [id number] 16:29:00 Test Item Value Reference Range Comments POC-GLUCOSE METER (BEAKER) 182 mg/dL 70-110 TESTED AT [address] (test ysoa=0716) [place] [address] RAD, CHEST, 1 VIEW, NON [id number] 16:22:00Reason for exam:->Post opShould this be performed [...] MDReport Verified Date/Time: 08/01/2017 16:22:20 Reading Location: [facility] [id number] Consult Reading Room [facility] W/PLT COUNT & AUTO [id number] 09:03:00 Test Item Value Reference Range Comments WHITE BLOOD CELL COUNT (BEAKER) (test afkd=955) 12.3 K/ L 3.5-10.5 RED BLOOD CELL COUNT (BEAKER) (test mogl=831) 3.13 M/ L 4.63-6.08 HEMOGLOBIN (BEAKER) (test luqh=088) 9.9 GM/DL 13.7-17.5 HEMATOCRIT (BEAKER) (test iqmw=384) 31.9 % 40.1-51.0 MEAN CORPUSCULAR VOLUME (BEAKER) (test fpqf=506) 101.9 fL 79.0-92.2 MEAN CORPUSCULAR HEMOGLOBIN (BEAKER) (test 31.6 pg 25.7-32.2 skeh=821) MEAN CORPUSCULAR HEMOGLOBIN CONC (BEAKER) (test 31.0 GM/DL 32.3-36.5 wpig=872) RED CELL DISTRIBUTION WIDTH (BEAKER) (test 15.2 % 11.6-14.4 yuse=732) PLATELET COUNT (BEAKER) (test imjp=187) 317 K/CU MM 150-450 MEAN PLATELET VOLUME (BEAKER) (test cpsq=034) 10.8 fL 9.4-12.4 NUCLEATED RED BLOOD CELLS (BEAKER) (test 1 /100 WBC 0-0 veys=481) NEUTROPHILS RELATIVE PERCENT (BEAKER) (test 81 % lxlg=055) LYMPHOCYTES RELATIVE PERCENT (BEAKER) (test 8 % kvad=456) MONOCYTES RELATIVE PERCENT (BEAKER) (test 7 % dkkh=242) EOSINOPHILS RELATIVE PERCENT (BEAKER) (test 1 % apvp=121) BASOPHILS RELATIVE PERCENT (BEAKER) (test 0 % nojj=710) NEUTROPHILS ABSOLUTE COUNT (BEAKER) (test 9.99 K/ L 1.78-5.38 rwvh=491) LYMPHOCYTES ABSOLUTE COUNT (BEAKER) (test 0.94 K/ L 1.32-3.57 boqq=179) MONOCYTES ABSOLUTE COUNT (BEAKER) (test 0.88 K/ L 0.30-0.82 cpgv=268) EOSINOPHILS ABSOLUTE COUNT (BEAKER) (test 0.17 K/ L 0.04-0.54 quzo=827) BASOPHILS ABSOLUTE COUNT (BEAKER) (test 0.05 K/ L 0.01-0.08 ksbd=398) IMMATURE GRANULOCYTES-RELATIVE PERCENT (BEAKER) 2 % 0-1 (test jczq=2085) (MANUAL DIFFERENTIAL)2017-08-01 09:03:00 Test Item Value Reference Range Comments TOTAL COUNTED (BEAKER) (test fjqj=0457) POCT-GLUCOSE [id number] 07:50:00 Test Item Value Reference Range Comments POC-GLUCOSE METER (BEAKER) 181 mg/dL 70-[address] [facility] [address] [facility] (test yvun=2744) [facility] [address] CALCIUM, [id number] 06:10:00 Test Item Value Reference Range Comments CALCIUM IONIZED (BEAKER) (test atma=939) 0.96 mmol/L 1.12-1.27 PH, BLOOD (BEAKER) (test aoge=4135) 7.38 BASIC METABOLIC [id number] 04:43:00 Test Item Value Reference Range Comments SODIUM (BEAKER) (test 140 meq/L 136-145 aaio=076) POTASSIUM (BEAKER) (test 3.6 meq/L 3.5-5.1 dkud=788) CHLORIDE (BEAKER) (test 104 meq/L 98-107 ilkf=880) CO2 (BEAKER) (test 26 meq/L 22-29 vxgk=399) BLOOD UREA NITROGEN 42 mg/dL 7-21 (BEAKER) (test ogun=152) CREATININE (BEAKER) (test 1.91 mg/dL 0.57-1.25 zvsu=693) GLUCOSE RANDOM (BEAKER) 172 mg/dL 70-105 (test knsv=141) CALCIUM (BEAKER) (test 8.0 mg/dL 8.4-10.2 bqpg=573) EGFR (BEAKER) (test 35 mL/min/1.73 sq m ESTIMATED GFR IS NOT swzk=1448) ACCURATE CREATININE CLEARANCE IN PREDICTING GLOMERULAR FILTRATION RATE. ESTIMATED GFR IS NOT APPLICABLE FOR DIALYSIS PATIENTS. POCT-GLUCOSE [id number] 21:15:00 Test Item Value Reference Range Comments POC-GLUCOSE METER (BEAKER) 233 mg/dL 70-[address] [facility] [address] [facility] (test vizf=3245) [facility] [address] POCT-GLUCOSE [id number] 17:44:00 Test Item Value Reference Range Comments POC-GLUCOSE METER (BEAKER) 161 mg/dL 70-[address] [facility] [address] [facility] (test gali=0250) [place] [id number] WOUND CULTURE + GRAM [id number] 13:50:00 Test Item Value Reference Range Comments CULTURE (BEAKER) (test egve=1706) Amikacin (test code=1) Susceptible 0-16 , Resistant [...] >40 code=47) CULTURE (BEAKER) (test 2+ Enterobacter qiie=9796) cloacae GRAM STAIN RESULT (BEAKER) 2+ WBCs (test srdk=8800) GRAM STAIN RESULT (BEAKER) <1+ gram positive (test ifmv=007107) rods POCT-GLUCOSE [id number] 12:36:00 Test Item Value Reference Range Comments POC-GLUCOSE METER (BEAKER) 189 mg/dL 70-[address] [facility] [address] [facility] (test kbri=8911) [facility] [address] CBC W/PLT COUNT & AUTO [id number] 08:34:00 Test Item Value Reference Range Comments WHITE BLOOD CELL COUNT (BEAKER) (test ztrm=256) 12.2 K/ L 3.5-10.5 RED BLOOD CELL COUNT (BEAKER) (test ncje=662) 2.94 M/ L 4.63-6.08 HEMOGLOBIN (BEAKER) (test zpjo=122) 9.5 GM/DL 13.7-17.5 HEMATOCRIT (BEAKER) (test imqj=105) 30.4 % 40.1-51.0 MEAN CORPUSCULAR VOLUME (BEAKER) (test ggac=498) 103.4 fL 79.0-92.2 MEAN CORPUSCULAR HEMOGLOBIN (BEAKER) (test 32.3 pg 25.7-32.2 mqjg=174) MEAN CORPUSCULAR HEMOGLOBIN CONC (BEAKER) (test 31.3 GM/DL 32.3-36.5 bapu=840) RED CELL DISTRIBUTION WIDTH (BEAKER) (test 15.4 % 11.6-14.4 adem=656) PLATELET COUNT (BEAKER) (test rcuq=277) 247 K/CU MM 150-450 MEAN PLATELET VOLUME (BEAKER) (test suxk=412) 10.5 fL 9.4-12.4 NUCLEATED RED BLOOD CELLS (BEAKER) (test 1 /100 WBC 0-0 nvzv=918) NEUTROPHILS RELATIVE PERCENT (BEAKER) (test 75 % yxbn=997) LYMPHOCYTES RELATIVE PERCENT (BEAKER) (test 10 % qmoh=976) MONOCYTES RELATIVE PERCENT (BEAKER) (test 9 % aqgv=095) EOSINOPHILS RELATIVE PERCENT (BEAKER) (test 3 % qxax=107) BASOPHILS RELATIVE PERCENT (BEAKER) (test 0 % dfiv=352) NEUTROPHILS ABSOLUTE COUNT (BEAKER) (test 9.16 K/ L 1.78-5.38 gfes=398) LYMPHOCYTES ABSOLUTE COUNT (BEAKER) (test 1.18 K/ L 1.32-3.57 jljd=051) MONOCYTES ABSOLUTE COUNT (BEAKER) (test 1.08 K/ L 0.30-0.82 xkhu=011) EOSINOPHILS ABSOLUTE COUNT (BEAKER) (test 0.35 K/ L 0.04-0.54 apec=033) BASOPHILS ABSOLUTE COUNT (BEAKER) (test 0.04 K/ L 0.01-0.08 drrl=652) IMMATURE GRANULOCYTES-RELATIVE PERCENT (BEAKER) 3 % 0-1 (test iutt=3140) (MANUAL DIFFERENTIAL)2017-07-31 08:34:00 Test Item Value Reference Range Comments TOTAL COUNTED (BEAKER) (test yeob=5931) POCT-GLUCOSE [id number] 07:54:00 Test Item Value Reference Range Comments POC-GLUCOSE METER (BEAKER) 252 mg/dL 70-[address] [facility] [address] [facility] (test dcxl=3423) [facility] [address] BASIC METABOLIC [id number] 05:51:00 Test Item Value Reference Range Comments SODIUM (BEAKER) (test 141 meq/L 136-145 sijr=876) POTASSIUM (BEAKER) (test 3.8 meq/L 3.5-5.1 zvei=338) CHLORIDE (BEAKER) (test 106 meq/L 98-107 yrtt=193) CO2 (BEAKER) (test 26 meq/L 22-29 knjc=527) BLOOD UREA NITROGEN 46 mg/dL 7-21 (BEAKER) (test xjwg=943) CREATININE (BEAKER) (test 2.01 mg/dL 0.57-1.25 mimv=594) GLUCOSE RANDOM (BEAKER) 165 mg/dL 70-105 (test tsvt=204) CALCIUM (BEAKER) (test 7.7 mg/dL 8.4-10.2 ijwo=444) EGFR (BEAKER) (test 33 mL/min/1.73 sq m ESTIMATED GFR IS NOT uryr=1415) ACCURATE CREATININE CLEARANCE IN PREDICTING GLOMERULAR FILTRATION RATE. ESTIMATED GFR IS NOT APPLICABLE FOR DIALYSIS PATIENTS. LIPID [id number] 05:48:00 Test Item Value Reference Range Comments TRIGLYCERIDES (BEAKER) (test abuy=768) 140 mg/dL CHOLESTEROL (BEAKER) (test bxej=743) 106 mg/dL HDL CHOLESTEROL (BEAKER) (test lhsi=456) 19 mg/dL LDL CHOLESTEROL CALCULATED (BEAKER) (test 59 mg/dL unmw=475) Triglyceride Reference Range: Low Risk <150 Borderline 150- 199 High Risk 200-499 Very High Risk >=500Cholesterol Reference Range: Low Risk <200 Borderline 200-239 High Risk > 240HDL Cholesterol Reference Range: Low Risk >=60 High Risk <40LDL Cholesterol Reference Range: Optimal <100 Near Optimal 100-129 Borderline 130-159 High 160-189 Very High >=190POCT-GLUCOSE [id number] 21:13:00 Test Item Value Reference Range Comments POC-GLUCOSE METER (BEAKER) 193 mg/dL 70-110 TESTED AT [address] (test roun=6085) [place] [address] POCT-GLUCOSE [id number] 17:46:00 Test Item Value Reference Range Comments POC-GLUCOSE METER (BEAKER) 214 mg/dL 70-110 TESTED AT [address] (test ajfh=9238) [place] [address] [id number] 16:18:00 Test Item Value Reference Range Comments POTASSIUM (BEAKER) (test deag=211) 3.6 meq/L 3.5-5.1 POCT-GLUCOSE [id number] 13:06:00 Test Item Value Reference Range Comments POC-GLUCOSE METER (BEAKER) 230 mg/dL 70-110 TESTED AT [address] (test yjhh=1379) [place] [address] BASIC METABOLIC [id number] 08:41:00 Test Item Value Reference Range Comments SODIUM (BEAKER) (test 145 meq/L 136-145 yvki=958) POTASSIUM (BEAKER) (test 3.9 meq/L 3.5-5.1 Specimen slightly dori=126) hemolyzed CHLORIDE (BEAKER) (test 107 meq/L 98-107 dajj=144) CO2 (BEAKER) (test 25 meq/L 22-29 yfdp=133) BLOOD UREA NITROGEN 52 mg/dL 7-21 (BEAKER) (test jaaz=186) CREATININE (BEAKER) (test 2.09 mg/dL 0.57-1.25 Specimen slightly rbhx=343) hemolyzed GLUCOSE RANDOM (BEAKER) 170 mg/dL 70-105 (test uved=503) CALCIUM (BEAKER) (test 8.2 mg/dL 8.4-10.2 spen=911) EGFR (BEAKER) (test 31 mL/min/1.73 sq m ESTIMATED GFR IS NOT cnaq=0320) ACCURATE CREATININE CLEARANCE IN PREDICTING GLOMERULAR FILTRATION RATE. ESTIMATED GFR IS NOT APPLICABLE FOR DIALYSIS PATIENTS. RAD, CHEST, 1 VIEW, NON [id number] 08:23:00Reason for exam:->pulmonary congestionShould this be performed [...] MDReport Verified Date/Time: 07/30/2017 08:23:04 [facility] POCT- GLUCOSE [id number] 07:52:00 Test Item Value Reference Range Comments POC-GLUCOSE METER (BEAKER) 211 mg/dL 70-[address] [facility] [address] [place] [address] (test pgsy=4490) [facility] [address] CBC W/PLT COUNT & AUTO [id number] 04:32:00 Test Item Value Reference Range Comments WHITE BLOOD CELL COUNT (BEAKER) (test ktti=335) 12.3 K/ L 3.5-10.5 RED BLOOD CELL COUNT (BEAKER) (test tfni=948) 2.96 M/ L 4.63-6.08 HEMOGLOBIN (BEAKER) (test bqsa=598) 9.4 GM/DL 13.7-17.5 HEMATOCRIT (BEAKER) (test mssl=344) 30.1 % 40.1-51.0 MEAN CORPUSCULAR VOLUME (BEAKER) (test cbgb=302) 101.7 fL 79.0-92.2 MEAN CORPUSCULAR HEMOGLOBIN (BEAKER) (test 31.8 pg 25.7-32.2 flvk=929) MEAN CORPUSCULAR HEMOGLOBIN CONC (BEAKER) (test 31.2 GM/DL 32.3-36.5 fvza=983) RED CELL DISTRIBUTION WIDTH (BEAKER) (test 15.2 % 11.6-14.4 mkjm=295) PLATELET COUNT (BEAKER) (test kzcj=987) 219 K/CU MM 150-450 MEAN PLATELET VOLUME (BEAKER) (test mdos=723) 11.3 fL 9.4-12.4 NUCLEATED RED BLOOD CELLS (BEAKER) (test 2 /100 WBC 0-0 abzg=628) NEUTROPHILS RELATIVE PERCENT (BEAKER) (test 76 % hcao=656) LYMPHOCYTES RELATIVE PERCENT (BEAKER) (test 8 % dghy=946) MONOCYTES RELATIVE PERCENT (BEAKER) (test 10 % zqym=043) EOSINOPHILS RELATIVE PERCENT (BEAKER) (test 3 % sgpw=475) BASOPHILS RELATIVE PERCENT (BEAKER) (test 0 % rrsw=369) NEUTROPHILS ABSOLUTE COUNT (BEAKER) (test 9.35 K/ L 1.78-5.38 zgsh=888) LYMPHOCYTES ABSOLUTE COUNT (BEAKER) (test 0.97 K/ L 1.32-3.57 glyx=104) MONOCYTES ABSOLUTE COUNT (BEAKER) (test 1.25 K/ L 0.30-0.82 zpcx=227) EOSINOPHILS ABSOLUTE COUNT (BEAKER) (test 0.41 K/ L 0.04-0.54 qidi=632) BASOPHILS ABSOLUTE COUNT (BEAKER) (test 0.04 K/ L 0.01-0.08 vrcz=828) IMMATURE GRANULOCYTES-RELATIVE PERCENT (BEAKER) 2 % 0-1 (test ncbw=1184) POCT-GLUCOSE [id number] 18:50:00 Test Item Value Reference Range Comments POC-GLUCOSE METER (BEAKER) 139 mg/dL 70-[address] [facility] [address] [facility] (test brca=8728) [facility] [address] [id number] 13:28:00 Test Item Value Reference Range Comments POTASSIUM (BEAKER) (test pshw=575) 3.7 meq/L 3.5-5.1 CBC W/PLT COUNT & AUTO [id number] 13:25:00 Test Item Value Reference Range Comments WHITE BLOOD CELL COUNT (BEAKER) (test frvm=988) 11.2 K/ L 3.5-10.5 RED BLOOD CELL COUNT (BEAKER) (test eegb=236) 2.67 M/ L 4.63-6.08 HEMOGLOBIN (BEAKER) (test zzvh=433) 8.8 GM/DL 13.7-17.5 HEMATOCRIT (BEAKER) (test lsnr=924) 27.3 % 40.1-51.0 MEAN CORPUSCULAR VOLUME (BEAKER) (test auww=078) 102.2 fL 79.0-92.2 MEAN CORPUSCULAR HEMOGLOBIN (BEAKER) (test 33.0 pg 25.7-32.2 qiks=839) MEAN CORPUSCULAR HEMOGLOBIN CONC (BEAKER) (test 32.2 GM/DL 32.3-36.5 fzzc=429) RED CELL DISTRIBUTION WIDTH (BEAKER) (test 15.3 % 11.6-14.4 xgdc=440) PLATELET COUNT (BEAKER) (test obmf=640) 202 K/CU MM 150-450 MEAN PLATELET VOLUME (BEAKER) (test psdu=337) 11.4 fL 9.4-12.4 NUCLEATED RED BLOOD CELLS (BEAKER) (test 3 /100 WBC 0-0 vuzr=381) NEUTROPHILS RELATIVE PERCENT (BEAKER) (test 79 % smcd=604) LYMPHOCYTES RELATIVE PERCENT (BEAKER) (test 8 % tmvg=283) MONOCYTES RELATIVE PERCENT (BEAKER) (test 9 % zrrg=063) EOSINOPHILS RELATIVE PERCENT (BEAKER) (test 2 % mowz=981) BASOPHILS RELATIVE PERCENT (BEAKER) (test 0 % oxtg=617) NEUTROPHILS ABSOLUTE COUNT (BEAKER) (test 8.88 K/ L 1.78-5.38 kpbd=765) LYMPHOCYTES ABSOLUTE COUNT (BEAKER) (test 0.89 K/ L 1.32-3.57 eaqu=108) MONOCYTES ABSOLUTE COUNT (BEAKER) (test 1.00 K/ L 0.30-0.82 tjui=527) EOSINOPHILS ABSOLUTE COUNT (BEAKER) (test 0.18 K/ L 0.04-0.54 znyc=273) BASOPHILS ABSOLUTE COUNT (BEAKER) (test 0.03 K/ L 0.01-0.08 agnr=617) IMMATURE GRANULOCYTES-RELATIVE PERCENT (BEAKER) 2 % 0-1 (test fnfb=4997) (MANUAL DIFFERENTIAL)2017-07-29 13:25:00 Test Item Value Reference Range Comments TOTAL COUNTED (BEAKER) (test hecb=9035) POCT-GLUCOSE [id number] 12:44:00 Test Item Value Reference Range Comments POC-GLUCOSE METER (BEAKER) 251 mg/dL 70-110 TESTED AT [place] [id number] [facility] (test rpmo=7073) [facility] [address] RAD, CHEST, 1 VIEW, NON [id number] 09:58:00Reason for exam:->pulmonary congestionShould this be performed at the bedside?->YesFINAL REPORT CLINICAL HISTORY: pulmonary congestion TECHNIQUE: 1 view of the chest. COMPARISON: 07/28/2017 IMPRESSION: The right central line is unchanged. Pulmonary vascular congestive findings are unchanged without new lobar consolidation. There is a trace right effusion. The cardiomediastinal silhouette is magnified by technique with sternotomy wires. Signed: Audrey Pyle MDReport Verified Date/Time: 07/29/2017 09:58:36 Reading [facility] Rad[facility] POCT-GLUCOSE [id number] 08:36:00 Test Item Value Reference Range Comments POC-GLUCOSE METER (BEAKER) 198 mg/dL 70-110 TESTED AT [address] (test igui=4118) [facility] [address] CALCIUM, [id number] 06:14:00 Test Item Value Reference Range Comments CALCIUM IONIZED (BEAKER) (test zrax=407) 0.98 mmol/L 1.12-1.27 PH, BLOOD (BEAKER) (test yoay=5736) 7.43 BASIC METABOLIC [id number] 05:40:00 Test Item Value Reference Range Comments SODIUM (BEAKER) (test 146 meq/L 136-145 fcoh=128) POTASSIUM (BEAKER) (test 3.3 meq/L 3.5-5.1 qgjn=731) CHLORIDE (BEAKER) (test 108 meq/L 98-107 qarr=070) CO2 (BEAKER) (test 26 meq/L 22-29 ebdg=770) BLOOD UREA NITROGEN 63 mg/dL 7-21 (BEAKER) (test wabt=047) CREATININE (BEAKER) (test 2.25 mg/dL 0.57-1.25 yevf=868) GLUCOSE RANDOM (BEAKER) 165 mg/dL 70-105 (test ctls=516) CALCIUM (BEAKER) (test 8.2 mg/dL 8.4-10.2 yprs=736) EGFR (BEAKER) (test 29 mL/min/1.73 sq m ESTIMATED GFR IS NOT exme=3924) ACCURATE CREATININE CLEARANCE IN PREDICTING GLOMERULAR FILTRATION RATE. ESTIMATED GFR IS NOT APPLICABLE FOR DIALYSIS PATIENTS. [id number] 05:36:00 Test Item Value Reference Range Comments POTASSIUM (BEAKER) (test votx=690) 3.3 meq/L 3.5-5.1 [id number] 05:36:00 Test Item Value Reference Range Comments MAGNESIUM (BEAKER) (test sqwa=340) 2.1 mg/dL 1.6-2.6 [id number] 01:31:00 Test Item Value Reference Range Comments POTASSIUM (BEAKER) (test napv=208) 3.5 meq/L 3.5-5.1 [id number] 01:31:00 Test Item Value Reference Range Comments MAGNESIUM (BEAKER) (test jjyu=887) 2.0 mg/dL 1.6-2.6 CALCIUM, [id number] 01:14:00 Test Item Value Reference Range Comments CALCIUM IONIZED (BEAKER) (test nijp=708) 0.96 mmol/L 1.12-1.27 PH, BLOOD (BEAKER) (test cyja=4619) 7.46 POCT-GLUCOSE [id number] 21:48:00 Test Item Value Reference Range Comments POC-GLUCOSE METER (BEAKER) 200 mg/dL 70-110 TESTED AT [address] (test gmwc=8003) [facility] [address] BASIC METABOLIC [id number] 20:08:00 Test Item Value Reference Range Comments SODIUM (BEAKER) (test 147 meq/L 136-145 idpx=807) POTASSIUM (BEAKER) (test 3.8 meq/L 3.5-5.1 dczh=373) CHLORIDE (BEAKER) (test 109 meq/L 98-107 wzpb=214) CO2 (BEAKER) (test 26 meq/L 22-29 xadn=689) BLOOD UREA NITROGEN 66 mg/dL 7-21 (BEAKER) (test pykq=589) CREATININE (BEAKER) (test 2.32 mg/dL 0.57-1.25 illm=710) GLUCOSE RANDOM (BEAKER) 140 mg/dL 70-105 (test grci=792) CALCIUM (BEAKER) (test 8.8 mg/dL 8.4-10.2 lhxq=220) EGFR (BEAKER) (test 28 mL/min/1.73 sq m ESTIMATED GFR IS NOT pcha=1602) ACCURATE CREATININE CLEARANCE IN PREDICTING GLOMERULAR FILTRATION RATE. ESTIMATED GFR IS NOT APPLICABLE FOR DIALYSIS PATIENTS. [id number] 19:29:00 Test Item Value Reference Range Comments POTASSIUM (BEAKER) (test zjhx=260) 3.8 meq/L 3.5-5.1 [id number] 19:29:00 Test Item Value Reference Range Comments MAGNESIUM (BEAKER) (test tgzv=595) 2.2 mg/dL 1.6-2.6 CALCIUM, [id number] 19:16:00 Test Item Value Reference Range Comments CALCIUM IONIZED (BEAKER) (test grpf=898) 1.04 mmol/L 1.12-1.27 PH, BLOOD (BEAKER) (test lcpv=5578) 7.48 POCT-GLUCOSE [id number] 18:17:00 Test Item Value Reference Range Comments POC-GLUCOSE METER (BEAKER) 145 mg/dL 70-110 TESTED AT [address] (test sviq=2752) [place] [id number] POCT-GLUCOSE [id number] 18:17:00 Test Item Value Reference Range Comments POC-GLUCOSE METER (BEAKER) 99 mg/dL 70-110 TESTED AT [address] (test mqit=5412) [place] [id number] POCT-GLUCOSE [id number] 18:17:00 Test Item Value Reference Range Comments POC-GLUCOSE METER (BEAKER) 132 mg/dL 70-110 TESTED AT [address] (test magl=3648) [place] [id number] POCT-GLUCOSE [id number] 18:17:00 Test Item Value Reference Range Comments POC-GLUCOSE METER (BEAKER) 132 mg/dL 70-110 TESTED AT [address] (test cfvm=6861) [place] [id number] CT, BRAIN, WITHOUT [id number] 18:16:00FINAL REPORT CT head without contrast. Comparisons: [...] Taty Osborne Verified Date/Time: 07/28/2017 18:16:35 POCT-GLUCOSE [id number] 16:20: 00 Test Item Value Reference Range Comments POC-GLUCOSE METER (BEAKER) 183 mg/dL 70-[address] [facility] [address] [place] [address] (test ixyi=9657) [facility] [address] [id number] 15:02:00 Test Item Value Reference Range Comments POTASSIUM (BEAKER) (test mees=069) 3.7 meq/L 3.5-5.1 [id number] 15:02:00 Test Item Value Reference Range Comments MAGNESIUM (BEAKER) (test wamg=075) 2.2 mg/dL 1.6-2.6 CALCIUM, [id number] 14:46:00 Test Item Value Reference Range Comments CALCIUM IONIZED (BEAKER) (test znqq=148) 1.09 mmol/L 1.12-1.27 PH, BLOOD (BEAKER) (test fpbt=4937) 7.45 BASIC METABOLIC [id number] 11:18:00 Test Item Value Reference Range Comments SODIUM (BEAKER) (test 150 meq/L 136-145 miux=834) POTASSIUM (BEAKER) (test 3.7 meq/L 3.5-5.1 hwlc=378) CHLORIDE (BEAKER) (test 112 meq/L 98-107 qmap=260) CO2 (BEAKER) (test 27 meq/L 22-29 aqdr=116) BLOOD UREA NITROGEN 64 mg/dL 7-21 (BEAKER) (test dixq=957) CREATININE (BEAKER) (test 2.30 mg/dL 0.57-1.25 hgqs=277) GLUCOSE RANDOM (BEAKER) 135 mg/dL 70-105 (test ypcs=456) CALCIUM (BEAKER) (test 8.8 mg/dL 8.4-10.2 desm=856) EGFR (BEAKER) (test 28 mL/min/1.73 sq m ESTIMATED GFR IS NOT bfhi=5790) ACCURATE CREATININE CLEARANCE IN PREDICTING GLOMERULAR FILTRATION RATE. ESTIMATED GFR IS NOT APPLICABLE FOR DIALYSIS PATIENTS. RAD, CHEST, 1 VIEW, NON [id number] 08:31:00Reason for exam:->pulmonary congestionShould this be performed [...] MDReport Verified Date/Time: 07/28/2017 08:31:10 Reading [facility] Rad[facility] Reading Room BASIC METABOLIC [id number] 06:16 :00 Test Item Value Reference Range Comments SODIUM (BEAKER) (test 149 meq/L 136-145 hfod=876) POTASSIUM (BEAKER) (test 4.0 meq/L 3.5-5.1 Specimen slightly mqrd=217) hemolyzed CHLORIDE (BEAKER) (test 112 meq/L 98-107 ujkb=031) CO2 (BEAKER) (test 25 meq/L 22-29 pyie=424) BLOOD UREA NITROGEN 61 mg/dL 7-21 (BEAKER) (test gmya=662) CREATININE (BEAKER) (test 2.28 mg/dL 0.57-1.25 Specimen slightly evka=208) hemolyzed GLUCOSE RANDOM (BEAKER) 127 mg/dL 70-105 (test oqqo=773) CALCIUM (BEAKER) (test 8.6 mg/dL 8.4-10.2 stdm=714) EGFR (BEAKER) (test 28 mL/min/1.73 sq m ESTIMATED GFR IS NOT xemt=4923) ACCURATE CREATININE CLEARANCE IN PREDICTING GLOMERULAR FILTRATION RATE. ESTIMATED GFR IS NOT APPLICABLE FOR DIALYSIS PATIENTS. [id number] 06:07:00 Test Item Value Reference Range Comments MAGNESIUM (BEAKER) (test 2.3 mg/dL 1.6-2.6 Specimen slightly hemolyzed pfpp=000) [id number] 06:07:00 Test Item Value Reference Range Comments PHOSPHORUS (BEAKER) (test 3.5 mg/dL 2.3-4.7 Specimen slightly hemolyzed lwyj=192) [id number] 06:07:00 Test Item Value Reference Range Comments POTASSIUM (BEAKER) (test 4.0 meq/L 3.5-5.1 Specimen slightly hemolyzed mngc=308) CBC W/PLT COUNT & AUTO [id number] 05:51:00 Test Item Value Reference Range Comments WHITE BLOOD CELL COUNT (BEAKER) (test jpdi=262) 9.2 K/ L 3.5-10.5 RED BLOOD CELL COUNT (BEAKER) (test fwug=193) 2.77 M/ L 4.63-6.08 HEMOGLOBIN (BEAKER) (test wzpw=585) 9.0 GM/DL 13.7-17.5 HEMATOCRIT (BEAKER) (test nrcb=606) 28.0 % 40.1-51.0 MEAN CORPUSCULAR VOLUME (BEAKER) (test dzcq=534) 101.1 fL 79.0-92.2 MEAN CORPUSCULAR HEMOGLOBIN (BEAKER) (test 32.5 pg 25.7-32.2 kjyg=530) MEAN CORPUSCULAR HEMOGLOBIN CONC (BEAKER) (test 32.1 GM/DL 32.3-36.5 cuoe=468) RED CELL DISTRIBUTION WIDTH (BEAKER) (test 14.9 % 11.6-14.4 xihh=617) PLATELET COUNT (BEAKER) (test kmkn=745) 157 K/CU MM 150-450 MEAN PLATELET VOLUME (BEAKER) (test xoea=250) 12.4 fL 9.4-12.4 NUCLEATED RED BLOOD CELLS (BEAKER) (test 1 /100 WBC 0-0 lulw=502) IMMATURE GRANULOCYTES-RELATIVE PERCENT (BEAKER) 1 % 0-1 (test zzrt=5141) CALCIUM, [id number] 05:13:00 Test Item Value Reference Range Comments CALCIUM IONIZED (BEAKER) (test tbsc=594) 1.09 mmol/L 1.12-1.27 PH, BLOOD (BEAKER) (test zxmm=7282) 7.45 [id number] 00:51:00 Test Item Value Reference Range Comments POTASSIUM (BEAKER) (test ohqm=265) 4.1 meq/L 3.5-5.1 [id number] 00:51:00 Test Item Value Reference Range Comments MAGNESIUM (BEAKER) (test zqoc=385) 2.2 mg/dL 1.6-2.6 CALCIUM, [id number] 00:46:00 Test Item Value Reference Range Comments CALCIUM IONIZED (BEAKER) (test brzy=619) 1.11 mmol/L 1.12-1.27 PH, BLOOD (BEAKER) (test fcpe=3571) 7.47 POCT-GLUCOSE [id number] 22:39:00 Test Item Value Reference Range Comments POC-GLUCOSE METER (BEAKER) 167 mg/dL 70-[address] [facility] [address] (test ckdj=8668) [facility] [address] BASIC METABOLIC [id number] 21:20:00 Test Item Value Reference Range Comments SODIUM (BEAKER) (test 148 meq/L 136-145 wseb=646) POTASSIUM (BEAKER) (test 3.9 meq/L 3.5-5.1 mota=557) CHLORIDE (BEAKER) (test 111 meq/L 98-107 tyxw=489) CO2 (BEAKER) (test 28 meq/L 22-29 snxf=883) BLOOD UREA NITROGEN 53 mg/dL 7-21 (BEAKER) (test lazz=087) CREATININE (BEAKER) (test 2.26 mg/dL 0.57-1.25 qubh=389) GLUCOSE RANDOM (BEAKER) 138 mg/dL 70-105 (test tahe=784) CALCIUM (BEAKER) (test 9.2 mg/dL 8.4-10.2 fpsx=978) EGFR (BEAKER) (test 29 mL/min/1.73 sq m ESTIMATED GFR IS NOT iblm=4396) ACCURATE CREATININE CLEARANCE IN PREDICTING GLOMERULAR FILTRATION RATE. ESTIMATED GFR IS NOT APPLICABLE FOR DIALYSIS PATIENTS. [id number] 18:54:00 Test Item Value Reference Range Comments POTASSIUM (BEAKER) (test hwur=245) 4.0 meq/L 3.5-5.1 [id number] 18:54:00 Test Item Value Reference Range Comments MAGNESIUM (BEAKER) (test oacz=404) 2.3 mg/dL 1.6-2.6 CALCIUM, [id number] 18:10:00 Test Item Value Reference Range Comments CALCIUM IONIZED (BEAKER) (test brxx=998) 1.13 mmol/L 1.12-1.27 PH, BLOOD (BEAKER) (test ksxc=9179) 7.46 BASIC METABOLIC [id number] 09:04:00 Test Item Value Reference Range Comments SODIUM (BEAKER) (test 146 meq/L 136-145 vtfw=771) POTASSIUM (BEAKER) (test 4.0 meq/L 3.5-5.1 icui=446) CHLORIDE (BEAKER) (test 111 meq/L 98-107 miwe=558) CO2 (BEAKER) (test 26 meq/L 22-29 yrln=358) BLOOD UREA NITROGEN 46 mg/dL 7-21 (BEAKER) (test bqrh=582) CREATININE (BEAKER) (test 2.35 mg/dL 0.57-1.25 rvun=795) GLUCOSE RANDOM (BEAKER) 152 mg/dL 70-105 (test vfyx=430) CALCIUM (BEAKER) (test 9.0 mg/dL 8.4-10.2 flay=299) EGFR (BEAKER) (test 27 mL/min/1.73 sq m ESTIMATED GFR IS NOT ofor=7261) ACCURATE CREATININE CLEARANCE IN PREDICTING GLOMERULAR FILTRATION RATE. ESTIMATED GFR IS NOT APPLICABLE FOR DIALYSIS PATIENTS. RAD, CHEST, 1 VIEW, NON [id number] 05:14:00Reason for exam:->chest tubesFINAL REPORT Chest one [...] MDReport Verified Date/Time: 2017 05:14:18 Reading Location: [address] Transitional Reading Room Electronically signed by: TAYLOR ALVARADO MD on07/27/2017 05:14 AMCALCIUM , [id number] 04:52:00 Test Item Value Reference Range Comments CALCIUM IONIZED (BEAKER) (test egpe=006) 1.13 mmol/L 1.12-1.27 PH, BLOOD (BEAKER) (test pxmu=1150) 7.40 BASIC METABOLIC [id number] 04:49:00 Test Item Value Reference Range Comments SODIUM (BEAKER) (test 146 meq/L 136-145 nuac=616) POTASSIUM (BEAKER) (test 4.1 meq/L 3.5-5.1 nzcv=854) CHLORIDE (BEAKER) (test 111 meq/L 98-107 idrw=594) CO2 (BEAKER) (test 24 meq/L 22-29 kwmr=121) BLOOD UREA NITROGEN 42 mg/dL 7-21 (BEAKER) (test atku=951) CREATININE (BEAKER) (test 2.41 mg/dL 0.57-1.25 gsrp=144) GLUCOSE RANDOM (BEAKER) 149 mg/dL 70-105 (test prwy=035) CALCIUM (BEAKER) (test 9.5 mg/dL 8.4-10.2 seay=717) EGFR (BEAKER) (test 26 mL/min/1.73 sq m ESTIMATED GFR IS NOT trft=6469) ACCURATE CREATININE CLEARANCE IN PREDICTING GLOMERULAR FILTRATION RATE. ESTIMATED GFR IS NOT APPLICABLE FOR DIALYSIS PATIENTS. OXYGEN SATURATION, [id number] 04:36:00 Test Item Value Reference Range Comments O2 SATURATION (MEASURED) (BEAKER) (test paxl=2629) 59.2 % [id number] 04:35:00 Test Item Value Reference Range Comments POTASSIUM (BEAKER) (test wkwb=001) 4.1 meq/L 3.5-5.1 [id number] 04:35:00 Test Item Value Reference Range Comments MAGNESIUM (BEAKER) (test hgll=879) 2.0 mg/dL 1.6-2.6 [id number] 04:35:00 Test Item Value Reference Range Comments PHOSPHORUS (BEAKER) (test llqg=337) 4.5 mg/dL 2.3-4.7 LACTIC ACID, ARTERIAL, WHOLE [id number] 04:16:00 Test Item Value Reference Range Comments LACTATE BLOOD ARTERIAL (2) (BEAKER) (test 1.3 mmol/L 0.5-2.2 jvjc=5016) Effective 09/27/2015: Units/Reference Range ChangeNew: 0.5-2.2 mmol/L Previous: 5 -20 mg/dLCBC W/PLT COUNT & AUTO [id number] 04:07:00 Test Item Value Reference Range Comments WHITE BLOOD CELL COUNT (BEAKER) (test uqnl=997) 11.9 K/ L 3.5-10.5 RED BLOOD CELL COUNT (BEAKER) (test xmvo=345) 2.67 M/ L 4.63-6.08 HEMOGLOBIN (BEAKER) (test pswu=475) 9.0 GM/DL 13.7-17.5 HEMATOCRIT (BEAKER) (test sllz=655) 26.9 % 40.1-51.0 MEAN CORPUSCULAR VOLUME (BEAKER) (test jwgs=152) 100.7 fL 79.0-92.2 MEAN CORPUSCULAR HEMOGLOBIN (BEAKER) (test 33.7 pg 25.7-32.2 vfdb=352) MEAN CORPUSCULAR HEMOGLOBIN CONC (BEAKER) (test 33.5 GM/DL 32.3-36.5 xwil=085) RED CELL DISTRIBUTION WIDTH (BEAKER) (test 14.9 % 11.6-14.4 omlx=344) PLATELET COUNT (BEAKER) (test ismk=142) 137 K/CU MM 150-450 MEAN PLATELET VOLUME (BEAKER) (test mnlv=152) 11.3 fL 9.4-12.4 NUCLEATED RED BLOOD CELLS (BEAKER) (test 0 /100 WBC 0-0 iuus=649) NEUTROPHILS RELATIVE PERCENT (BEAKER) (test 84 % rstt=526) LYMPHOCYTES RELATIVE PERCENT (BEAKER) (test 7 % ncsf=657) MONOCYTES RELATIVE PERCENT (BEAKER) (test 6 % huwb=508) EOSINOPHILS RELATIVE PERCENT (BEAKER) (test 2 % rtrz=133) BASOPHILS RELATIVE PERCENT (BEAKER) (test 0 % jwgp=713) NEUTROPHILS ABSOLUTE COUNT (BEAKER) (test 10.05 K/ L 1.78-5.38 okrb=634) LYMPHOCYTES ABSOLUTE COUNT (BEAKER) (test 0.78 K/ L 1.32-3.57 xmhl=224) MONOCYTES ABSOLUTE COUNT (BEAKER) (test 0.70 K/ L 0.30-0.82 wpxc=420) EOSINOPHILS ABSOLUTE COUNT (BEAKER) (test 0.26 K/ L 0.04-0.54 jnwz=501) BASOPHILS ABSOLUTE COUNT (BEAKER) (test 0.02 K/ L 0.01-0.08 nvns=148) IMMATURE GRANULOCYTES-RELATIVE PERCENT (BEAKER) 1 % 0-1 (test hqls=1334) BASIC METABOLIC [id number] 20:45:00 Test Item Value Reference Range Comments SODIUM (BEAKER) (test 146 meq/L 136-145 mnji=318) POTASSIUM (BEAKER) (test 4.1 meq/L 3.5-5.1 epdl=093) CHLORIDE (BEAKER) (test 111 meq/L 98-107 ashv=249) CO2 (BEAKER) (test 24 meq/L 22-29 uftt=077) BLOOD UREA NITROGEN 38 mg/dL 7-21 (BEAKER) (test tlic=791) CREATININE (BEAKER) (test 2.48 mg/dL 0.57-1.25 ircd=829) GLUCOSE RANDOM (BEAKER) 109 mg/dL 70-105 (test xakd=260) CALCIUM (BEAKER) (test 9.4 mg/dL 8.4-10.2 ldqm=152) EGFR (BEAKER) (test 26 mL/min/1.73 sq m ESTIMATED GFR IS NOT uhis=2997) ACCURATE CREATININE CLEARANCE IN PREDICTING GLOMERULAR FILTRATION RATE. ESTIMATED GFR IS NOT APPLICABLE FOR DIALYSIS PATIENTS. BLOOD GAS, [id number] 20:35:00 Test Item Value Reference Range Comments PH ARTERIAL (BEAKER) (test rqmv=031) 7.48 7.35-7.45 PCO2 ARTERIAL (BEAKER) (test gfcw=895) 34 mmHg 35-45 PO2 ARTERIAL (BEAKER) (test ocml=466) 114 mmHg 80-90 O2 SATURATION ARTERIAL (BEAKER) (test fkvn=291) 98.4 % 96.0-97.0 HCO3 ARTERIAL (BEAKER) (test rxug=080) 25 mmol/L 21-29 BASE EXCESS ARTERIAL (BEAKER) (test aktg=775) 1.6 mmol/L -2.0-3.0 PATIENT TEMPERATURE (BEAKER) (test txwo=4331) 37.3 C FIO2 (BEAKER) (test acrj=3909) 52.0 % BLOOD GAS, [id number] 19:21:00 Test Item Value Reference Range Comments PH ARTERIAL (BEAKER) (test vckb=546) 7.47 7.35-7.45 PCO2 ARTERIAL (BEAKER) (test erde=855) 36 mmHg 35-45 PO2 ARTERIAL (BEAKER) (test tkje=851) 141 mmHg 80-90 O2 SATURATION ARTERIAL (BEAKER) (test syyd=197) 98.9 % 96.0-97.0 HCO3 ARTERIAL (BEAKER) (test dtbm=605) 26 mmol/L 21-29 BASE EXCESS ARTERIAL (BEAKER) (test uxgg=981) 2.3 mmol/L -2.0-3.0 PATIENT TEMPERATURE (BEAKER) (test yjgv=7759) 37.1 C FIO2 (BEAKER) (test pfew=7609) 100.0 % BASIC METABOLIC [id number] 17:33:00 Test Item Value Reference Range Comments SODIUM (BEAKER) (test 146 meq/L 136-145 xxex=555) POTASSIUM (BEAKER) (test 4.2 meq/L 3.5-5.1 lndj=658) CHLORIDE (BEAKER) (test 111 meq/L 98-107 znxh=601) CO2 (BEAKER) (test 27 meq/L 22-29 icnr=957) BLOOD UREA NITROGEN 34 mg/dL 7-21 (BEAKER) (test pzry=126) CREATININE (BEAKER) (test 2.54 mg/dL 0.57-1.25 tkzg=711) GLUCOSE RANDOM (BEAKER) 112 mg/dL 70-105 (test bqny=540) CALCIUM (BEAKER) (test 9.6 mg/dL 8.4-10.2 jryp=505) EGFR (BEAKER) (test 25 mL/min/1.73 sq m ESTIMATED GFR IS NOT pulv=3807) ACCURATE CREATININE CLEARANCE IN PREDICTING GLOMERULAR FILTRATION RATE. ESTIMATED GFR IS NOT APPLICABLE FOR DIALYSIS PATIENTS. [id number] 17:29:00 Test Item Value Reference Range Comments POTASSIUM (BEAKER) (test yxmb=016) 4.2 meq/L 3.5-5.1 [id number] 17:29:00 Test Item Value Reference Range Comments MAGNESIUM (BEAKER) (test iemz=407) 2.1 mg/dL 1.6-2.6 CBC W/PLT COUNT & AUTO [id number] 17:14:00 Test Item Value Reference Range Comments WHITE BLOOD CELL COUNT (BEAKER) (test qxnw=604) 13.2 K/ L 3.5-10.5 RED BLOOD CELL COUNT (BEAKER) (test kikg=598) 2.95 M/ L 4.63-6.08 HEMOGLOBIN (BEAKER) (test aikx=436) 9.6 GM/DL 13.7-17.5 HEMATOCRIT (BEAKER) (test dref=723) 29.2 % 40.1-51.0 MEAN CORPUSCULAR VOLUME (BEAKER) (test ilqn=776) 99.0 fL 79.0-92.2 MEAN CORPUSCULAR HEMOGLOBIN (BEAKER) (test 32.5 pg 25.7-32.2 apzw=089) MEAN CORPUSCULAR HEMOGLOBIN CONC (BEAKER) (test 32.9 GM/DL 32.3-36.5 qhti=369) RED CELL DISTRIBUTION WIDTH (BEAKER) (test 14.9 % 11.6-14.4 eyzv=072) PLATELET COUNT (BEAKER) (test biku=267) 139 K/CU MM 150-450 MEAN PLATELET VOLUME (BEAKER) (test gbhd=315) 12.0 fL 9.4-12.4 NUCLEATED RED BLOOD CELLS (BEAKER) (test 0 /100 WBC 0-0 ygqo=777) NEUTROPHILS RELATIVE PERCENT (BEAKER) (test 83 % vnhk=815) LYMPHOCYTES RELATIVE PERCENT (BEAKER) (test 7 % lyut=755) MONOCYTES RELATIVE PERCENT (BEAKER) (test 7 % hnkh=939) EOSINOPHILS RELATIVE PERCENT (BEAKER) (test 2 % hmci=273) BASOPHILS RELATIVE PERCENT (BEAKER) (test 0 % xiwx=472) NEUTROPHILS ABSOLUTE COUNT (BEAKER) (test 10.94 K/ L 1.78-5.38 cwyw=446) LYMPHOCYTES ABSOLUTE COUNT (BEAKER) (test 0.91 K/ L 1.32-3.57 epnu=872) MONOCYTES ABSOLUTE COUNT (BEAKER) (test 0.98 K/ L 0.30-0.82 mxev=901) EOSINOPHILS ABSOLUTE COUNT (BEAKER) (test 0.22 K/ L 0.04-0.54 psgb=189) BASOPHILS ABSOLUTE COUNT (BEAKER) (test 0.04 K/ L 0.01-0.08 saxn=994) IMMATURE GRANULOCYTES-RELATIVE PERCENT (BEAKER) 1 % 0-1 (test rihs=0350) CALCIUM, [id number] 16:53:00 Test Item Value Reference Range Comments CALCIUM IONIZED (BEAKER) (test amad=069) 1.16 mmol/L 1.12-1.27 PH, BLOOD (BEAKER) (test uzxp=8093) 7.47 BLOOD GAS, [id number] 14:56:00 Test Item Value Reference Range Comments PH ARTERIAL (BEAKER) (test sxyt=750) 7.48 7.35-7.45 PCO2 ARTERIAL (BEAKER) (test qesp=177) 36 mmHg 35-45 PO2 ARTERIAL (BEAKER) (test neoc=678) 150 mmHg 80-90 O2 SATURATION ARTERIAL (BEAKER) (test tzzo=568) 99.1 % 96.0-97.0 HCO3 ARTERIAL (BEAKER) (test ijem=863) 27 mmol/L 21-29 BASE EXCESS ARTERIAL (BEAKER) (test ghan=818) 2.9 mmol/L -2.0-3.0 PATIENT TEMPERATURE (BEAKER) (test mneg=8514) 36.7 C FIO2 (BEAKER) (test pgtc=8152) 40.0 % [id number] 13:15:00 Test Item Value Reference Range Comments POTASSIUM (BEAKER) (test wztv=631) 4.2 meq/L 3.5-5.1 [id number] 13:15:00 Test Item Value Reference Range Comments MAGNESIUM (BEAKER) (test daoj=367) 2.2 mg/dL 1.6-2.6 CALCIUM, [id number] 12:44:00 Test Item Value Reference Range Comments CALCIUM IONIZED (BEAKER) (test ofje=639) 1.18 mmol/L 1.12-1.27 PH, BLOOD (BEAKER) (test onrl=0125) 7.47 BASIC METABOLIC [id number] 10:34:00 Test Item Value Reference Range Comments SODIUM (BEAKER) (test 145 meq/L 136-145 lugj=424) POTASSIUM (BEAKER) (test 4.0 meq/L 3.5-5.1 zmyt=390) CHLORIDE (BEAKER) (test 112 meq/L 98-107 zfze=760) CO2 (BEAKER) (test 23 meq/L 22-29 kxkd=265) BLOOD UREA NITROGEN 31 mg/dL 7-21 (BEAKER) (test uswh=351) CREATININE (BEAKER) (test 2.49 mg/dL 0.57-1.25 eunj=277) GLUCOSE RANDOM (BEAKER) 127 mg/dL 70-105 (test umcl=173) CALCIUM (BEAKER) (test 10.1 mg/dL 8.4-10.2 qhcr=350) EGFR (BEAKER) (test 25 mL/min/1.73 sq m ESTIMATED GFR IS NOT hivi=8940) ACCURATE CREATININE CLEARANCE IN PREDICTING GLOMERULAR FILTRATION RATE. ESTIMATED GFR IS NOT APPLICABLE FOR DIALYSIS PATIENTS. BLOOD GAS, [id number] 09:31:00 Test Item Value Reference Range Comments PH ARTERIAL (BEAKER) (test lyid=613) 7.48 7.35-7.45 PCO2 ARTERIAL (BEAKER) (test muli=864) 33 mmHg 35-45 PO2 ARTERIAL (BEAKER) (test dmjj=597) 112 mmHg 80-90 O2 SATURATION ARTERIAL (BEAKER) (test oiqt=541) 98.4 % 96.0-97.0 HCO3 ARTERIAL (BEAKER) (test ocit=451) 24 mmol/L 21-29 BASE EXCESS ARTERIAL (BEAKER) (test gaiz=738) 1.0 mmol/L -2.0-3.0 PATIENT TEMPERATURE (BEAKER) (test qeum=7524) 36.7 C FIO2 (BEAKER) (test rics=0335) 40.0 % RAD, CHEST, 1 VIEW, NON [id number] 08:44:00Reason for exam:->chest tubesFINAL REPORT CHEST ONE [...] DelatorreMDReport Verified Date/Time: 07/26/2017 08:44:33 Reading Location: [facility] [id number] Ortho Consult Reading Room Electronically signed by: KERI DELATORRE MD on 2017 08:44 AMPOCT-GLUCOSE [id number] 07:25:00 Test Item Value Reference Range Comments POC-GLUCOSE METER (BEAKER) 120 mg/dL 70-110 TESTED AT [address] (test qtce=6355) [facility] [address] BASIC METABOLIC [id number] 05:41:00 Test Item Value Reference Range Comments SODIUM (BEAKER) (test 145 meq/L 136-145 xrgk=158) POTASSIUM (BEAKER) (test 4.1 meq/L 3.5-5.1 vtqz=913) CHLORIDE (BEAKER) (test 112 meq/L 98-107 ngse=815) CO2 (BEAKER) (test 21 meq/L 22-29 dpxx=704) BLOOD UREA NITROGEN 29 mg/dL 7-21 (BEAKER) (test fgwh=870) CREATININE (BEAKER) (test 2.50 mg/dL 0.57-1.25 piot=405) GLUCOSE RANDOM (BEAKER) 126 mg/dL 70-105 (test gdzd=731) CALCIUM (BEAKER) (test 8.3 mg/dL 8.4-10.2 eanb=677) EGFR (BEAKER) (test 25 mL/min/1.73 sq m ESTIMATED GFR IS NOT znoh=7928) ACCURATE CREATININE CLEARANCE IN PREDICTING GLOMERULAR FILTRATION RATE. ESTIMATED GFR IS NOT APPLICABLE FOR DIALYSIS PATIENTS. OXYGEN SATURATION, [id number] 05:34:00 Test Item Value Reference Range Comments O2 SATURATION (MEASURED) (BEAKER) (test mmui=7510) 59.2 % [id number] 05:33:00 Test Item Value Reference Range Comments PHOSPHORUS (BEAKER) (test evqg=592) 4.7 mg/dL 2.3-4.7 [id number] 05:33:00 Test Item Value Reference Range Comments MAGNESIUM (BEAKER) (test bpil=647) 2.2 mg/dL 1.6-2.6 CALCIUM, [id number] 05:31:00 Test Item Value Reference Range Comments CALCIUM IONIZED (BEAKER) (test usut=084) 0.98 mmol/L 1.12-1.27 PH, BLOOD (BEAKER) (test diik=2636) 7.39 CBC W/PLT COUNT & AUTO [id number] 05:00:00 Test Item Value Reference Range Comments WHITE BLOOD CELL COUNT (BEAKER) (test nzyv=739) 12.8 K/ L 3.5-10.5 RED BLOOD CELL COUNT (BEAKER) (test xguq=623) 2.87 M/ L 4.63-6.08 HEMOGLOBIN (BEAKER) (test wyfh=211) 9.4 GM/DL 13.7-17.5 HEMATOCRIT (BEAKER) (test pgti=840) 28.5 % 40.1-51.0 MEAN CORPUSCULAR VOLUME (BEAKER) (test mrqz=661) 99.3 fL 79.0-92.2 MEAN CORPUSCULAR HEMOGLOBIN (BEAKER) (test 32.8 pg 25.7-32.2 xbvp=341) MEAN CORPUSCULAR HEMOGLOBIN CONC (BEAKER) (test 33.0 GM/DL 32.3-36.5 utep=268) RED CELL DISTRIBUTION WIDTH (BEAKER) (test 14.9 % 11.6-14.4 odwx=368) PLATELET COUNT (BEAKER) (test qqpn=330) 134 K/CU MM 150-450 MEAN PLATELET VOLUME (BEAKER) (test gpli=197) 12.5 fL 9.4-12.4 NUCLEATED RED BLOOD CELLS (BEAKER) (test 0 /100 WBC 0-0 rdmf=241) NEUTROPHILS RELATIVE PERCENT (BEAKER) (test 86 % ashd=978) LYMPHOCYTES RELATIVE PERCENT (BEAKER) (test 5 % yimr=021) MONOCYTES RELATIVE PERCENT (BEAKER) (test 7 % xspj=255) EOSINOPHILS RELATIVE PERCENT (BEAKER) (test 2 % nieu=444) BASOPHILS RELATIVE PERCENT (BEAKER) (test 0 % coyq=789) NEUTROPHILS ABSOLUTE COUNT (BEAKER) (test 10.99 K/ L 1.78-5.38 imtq=320) LYMPHOCYTES ABSOLUTE COUNT (BEAKER) (test 0.60 K/ L 1.32-3.57 uovq=222) MONOCYTES ABSOLUTE COUNT (BEAKER) (test 0.84 K/ L 0.30-0.82 chsq=735) EOSINOPHILS ABSOLUTE COUNT (BEAKER) (test 0.21 K/ L 0.04-0.54 urye=122) BASOPHILS ABSOLUTE COUNT (BEAKER) (test 0.03 K/ L 0.01-0.08 qful=547) IMMATURE GRANULOCYTES-RELATIVE PERCENT (BEAKER) 1 % 0-1 (test joei=2190) LACTIC ACID, ARTERIAL, WHOLE [id number] 04:58:00 Test Item Value Reference Range Comments LACTATE BLOOD ARTERIAL (2) (BEAKER) (test 1.2 mmol/L 0.5-2.2 rput=8301) Effective 09/27/2015: Units/Reference Range ChangeNew: 0.5-2.2 mmol/L Previous: 5 -20 mg/dLPOCT-GLUCOSE [id number] 04:19:00 Test Item Value Reference Range Comments POC-GLUCOSE METER (BEAKER) 136 mg/dL 70-110 TESTED AT [address] (test zqhn=1075) [facility] [address] POCT-GLUCOSE [id number] 00:39:00 Test Item Value Reference Range Comments POC-GLUCOSE METER (BEAKER) 142 mg/dL 70-110 TESTED AT [address] (test bckc=1770) [facility] [address] POCT-GLUCOSE [id number] 23:06:00 Test Item Value Reference Range Comments POC-GLUCOSE METER (BEAKER) 128 mg/dL 70-110 TESTED AT [address] (test rmnk=1530) [place] [address] BASIC METABOLIC [id number] 21:24:00 Test Item Value Reference Range Comments SODIUM (BEAKER) (test 143 meq/L 136-145 lnsz=259) POTASSIUM (BEAKER) (test 4.3 meq/L 3.5-5.1 xxri=461) CHLORIDE (BEAKER) (test 111 meq/L 98-107 ltvu=014) CO2 (BEAKER) (test 24 meq/L 22-29 fqyl=816) BLOOD UREA NITROGEN 27 mg/dL 7-21 (BEAKER) (test gzxu=909) CREATININE (BEAKER) (test 2.57 mg/dL 0.57-1.25 xdee=729) GLUCOSE RANDOM (BEAKER) 125 mg/dL 70-105 (test oqze=837) CALCIUM (BEAKER) (test 8.3 mg/dL 8.4-10.2 cbaf=803) EGFR (BEAKER) (test 25 mL/min/1.73 sq m ESTIMATED GFR IS NOT lyob=5463) ACCURATE CREATININE CLEARANCE IN PREDICTING GLOMERULAR FILTRATION RATE. ESTIMATED GFR IS NOT APPLICABLE FOR DIALYSIS PATIENTS. POCT-GLUCOSE [id number] 20:14:00 Test Item Value Reference Range Comments POC-GLUCOSE METER (BEAKER) 126 mg/dL 70-110 TESTED AT [address] (test krll=1515) [place] [address] BASIC METABOLIC [id number] 18:38:00 Test Item Value Reference Range Comments SODIUM (BEAKER) (test 143 meq/L 136-145 kmtj=978) POTASSIUM (BEAKER) (test 4.3 meq/L 3.5-5.1 tbdm=490) CHLORIDE (BEAKER) (test 112 meq/L 98-107 alxj=547) CO2 (BEAKER) (test 23 meq/L 22-29 daha=640) BLOOD UREA NITROGEN 27 mg/dL 7-21 (BEAKER) (test aoca=146) CREATININE (BEAKER) (test 2.58 mg/dL 0.57-1.25 esqq=577) GLUCOSE RANDOM (BEAKER) 128 mg/dL 70-105 (test tzvh=864) CALCIUM (BEAKER) (test 8.2 mg/dL 8.4-10.2 wrml=588) EGFR (BEAKER) (test 24 mL/min/1.73 sq m ESTIMATED GFR IS NOT ottn=8886) ACCURATE CREATININE CLEARANCE IN PREDICTING GLOMERULAR FILTRATION RATE. ESTIMATED GFR IS NOT APPLICABLE FOR DIALYSIS PATIENTS. [id number] 18:37:00 Test Item Value Reference Range Comments POTASSIUM (BEAKER) (test tidl=376) 4.3 meq/L 3.5-5.1 [id number] 18:37:00 Test Item Value Reference Range Comments MAGNESIUM (BEAKER) (test ctob=956) 2.3 mg/dL 1.6-2.6 POCT-GLUCOSE [id number] 18:21:00 Test Item Value Reference Range Comments POC-GLUCOSE METER (BEAKER) 135 mg/dL 70-110 TESTED AT [address] (test oxqz=7882) [place] [id number] POCT-GLUCOSE [id number] 18:21:00 Test Item Value Reference Range Comments POC-GLUCOSE METER (BEAKER) 140 mg/dL 70-110 TESTED AT [address] (test lthd=0995) [place] [id number] POCT-GLUCOSE [id number] 18:21:00 Test Item Value Reference Range Comments POC-GLUCOSE METER (BEAKER) 132 mg/dL 70-110 TESTED AT [address] (test xdby=3045) [place] [id number] CALCIUM, [id number] 18:06:00 Test Item Value Reference Range Comments CALCIUM IONIZED (BEAKER) (test qgtr=189) 1.06 mmol/L 1.12-1.27 PH, BLOOD (BEAKER) (test rrlb=6674) 7.44 BLOOD GAS, [id number] 18:06:00 Test Item Value Reference Range Comments PH ARTERIAL (BEAKER) (test vezr=921) 7.44 7.35-7.45 PCO2 ARTERIAL (BEAKER) (test cuzx=969) 32 mmHg 35-45 PO2 ARTERIAL (BEAKER) (test ttky=879) 99 mmHg 80-90 O2 SATURATION ARTERIAL (BEAKER) (test zcsi=661) 97.7 % 96.0-97.0 HCO3 ARTERIAL (BEAKER) (test qpqk=144) 21 mmol/L 21-29 BASE EXCESS ARTERIAL (BEAKER) (test avgv=739) -2.3 mmol/L -2.0-3.0 PATIENT TEMPERATURE (BEAKER) (test sufg=7995) 37.0 C FIO2 (BEAKER) (test wewi=6966) 40.0 % LACTIC ACID, ARTERIAL, WHOLE [id number] 13:20:00 Test Item Value Reference Range Comments LACTATE BLOOD ARTERIAL (2) (BEAKER) (test 1.4 mmol/L 0.5-2.2 fqqq=9104) Effective 09/27/2015: Units/Reference Range ChangeNew: 0.5-2.2 mmol/L Previous: 5 -20 mg/dLHEMOGLOBIN AND [id number] 13:01:00 Test Item Value Reference Range Comments HEMOGLOBIN (BEAKER) (test jnwk=404) 9.7 GM/DL 13.7-17.5 HEMATOCRIT (BEAKER) (test vvqr=628) 29.2 % 40.1-51.0 POCT-GLUCOSE [id number] 12:24:00 Test Item Value Reference Range Comments POC-GLUCOSE METER (BEAKER) 113 mg/dL 70-110 TESTED AT [address] (test clsq=7706) [facility] [address] POCT-GLUCOSE [id number] 12:24:00 Test Item Value Reference Range Comments POC-GLUCOSE METER (BEAKER) 147 mg/dL 70-110 TESTED AT [address] (test ljfg=2421) [facility] [address] POCT-GLUCOSE [id number] 12:24:00 Test Item Value Reference Range Comments POC-GLUCOSE METER (BEAKER) 160 mg/dL 70-110 TESTED AT [address] (test duku=1576) [facility] [address] POCT-GLUCOSE [id number] 12:24:00 Test Item Value Reference Range Comments POC-GLUCOSE METER (BEAKER) 145 mg/dL 70-110 TESTED AT [address] (test orwz=0470) [facility] [address] POCT-GLUCOSE [id number] 12:24:00 Test Item Value Reference Range Comments POC-GLUCOSE METER (BEAKER) 145 mg/dL 70-110 TESTED AT [address] (test ykms=6444) [facility] [address] POCT-GLUCOSE [id number] 12:24:00 Test Item Value Reference Range Comments POC-GLUCOSE METER (BEAKER) 159 mg/dL 70-[address] [facility] [address] [facility] (test sivz=4254) [facility] [address] POCT-GLUCOSE [id number] 12:24:00 Test Item Value Reference Range Comments POC-GLUCOSE METER (BEAKER) 170 mg/dL 70-[address] [facility] [address] [facility] (test ffry=5161) [facility] [address] [id number] 10:59:00 Test Item Value Reference Range Comments PHOSPHORUS (BEAKER) (test ezkw=070) 3.1 mg/dL 2.3-4.7 [id number] 10:59:00 Test Item Value Reference Range Comments MAGNESIUM (BEAKER) (test zplc=933) 2.3 mg/dL 1.6-2.6 BASIC METABOLIC [id number] 10:59:00 Test Item Value Reference Range Comments SODIUM (BEAKER) (test 143 meq/L 136-145 lakm=934) POTASSIUM (BEAKER) (test 4.6 meq/L 3.5-5.1 lqhj=653) CHLORIDE (BEAKER) (test 112 meq/L 98-107 xorq=297) CO2 (BEAKER) (test 20 meq/L 22-29 dklm=797) BLOOD UREA NITROGEN 23 mg/dL 7-21 (BEAKER) (test xovg=646) CREATININE (BEAKER) (test 2.18 mg/dL 0.57-1.25 ibdp=385) GLUCOSE RANDOM (BEAKER) 147 mg/dL 70-105 (test klzb=010) CALCIUM (BEAKER) (test 8.1 mg/dL 8.4-10.2 wxxa=610) EGFR (BEAKER) (test 30 mL/min/1.73 sq m ESTIMATED GFR IS NOT yibs=8808) ACCURATE CREATININE CLEARANCE IN PREDICTING GLOMERULAR FILTRATION RATE. ESTIMATED GFR IS NOT APPLICABLE FOR DIALYSIS PATIENTS. CBC W/PLT COUNT & AUTO [id number] 10:26:00 Test Item Value Reference Range Comments WHITE BLOOD CELL COUNT (BEAKER) (test zxmm=823) 14.9 K/ L 3.5-10.5 RED BLOOD CELL COUNT (BEAKER) (test muuv=936) 3.03 M/ L 4.63-6.08 HEMOGLOBIN (BEAKER) (test nllr=936) 10.0 GM/DL 13.7-17.5 HEMATOCRIT (BEAKER) (test agjg=969) 30.9 % 40.1-51.0 MEAN CORPUSCULAR VOLUME (BEAKER) (test hsit=242) 102.0 fL 79.0-92.2 MEAN CORPUSCULAR HEMOGLOBIN (BEAKER) (test 33.0 pg 25.7-32.2 hfbp=659) MEAN CORPUSCULAR HEMOGLOBIN CONC (BEAKER) (test 32.4 GM/DL 32.3-36.5 ifjd=647) RED CELL DISTRIBUTION WIDTH (BEAKER) (test 14.8 % 11.6-14.4 snqd=583) PLATELET COUNT (BEAKER) (test chsf=961) 155 K/CU MM 150-450 MEAN PLATELET VOLUME (BEAKER) (test hvfv=424) 12.6 fL 9.4-12.4 NUCLEATED RED BLOOD CELLS (BEAKER) (test 0 /100 WBC 0-0 wmxe=401) NEUTROPHILS RELATIVE PERCENT (BEAKER) (test 84 % qwjb=877) LYMPHOCYTES RELATIVE PERCENT (BEAKER) (test 4 % sujr=215) MONOCYTES RELATIVE PERCENT (BEAKER) (test 11 % qfmz=163) EOSINOPHILS RELATIVE PERCENT (BEAKER) (test 1 % cljn=829) BASOPHILS RELATIVE PERCENT (BEAKER) (test 0 % mlqb=597) NEUTROPHILS ABSOLUTE COUNT (BEAKER) (test 12.43 K/ L 1.78-5.38 sxce=922) LYMPHOCYTES ABSOLUTE COUNT (BEAKER) (test 0.56 K/ L 1.32-3.57 drdk=987) MONOCYTES ABSOLUTE COUNT (BEAKER) (test 1.62 K/ L 0.30-0.82 hzyg=852) EOSINOPHILS ABSOLUTE COUNT (BEAKER) (test 0.14 K/ L 0.04-0.54 fwpp=536) BASOPHILS ABSOLUTE COUNT (BEAKER) (test 0.04 K/ L 0.01-0.08 ppqc=106) IMMATURE GRANULOCYTES-RELATIVE PERCENT (BEAKER) 1 % 0-1 (test gkif=7757) BLOOD GAS, [id number] 09:05:00 Test Item Value Reference Range Comments PH ARTERIAL (BEAKER) (test vqvf=248) 7.40 7.35-7.45 PCO2 ARTERIAL (BEAKER) (test mbxl=638) 35 mmHg 35-45 PO2 ARTERIAL (BEAKER) (test krbt=602) 212 mmHg 80-90 O2 SATURATION ARTERIAL (BEAKER) (test aevc=949) 99.4 % 96.0-97.0 HCO3 ARTERIAL (BEAKER) (test qrvl=039) 22 mmol/L 21-29 BASE EXCESS ARTERIAL (BEAKER) (test xget=791) -2.7 mmol/L -2.0-3.0 PATIENT TEMPERATURE (BEAKER) (test ybep=1475) 37.0 C FIO2 (BEAKER) (test dogf=5775) 100.0 % POCT-GLUCOSE [id number] 07:07:00 Test Item Value Reference Range Comments POC-GLUCOSE METER (BEAKER) 160 mg/dL 70-110 TESTED AT [address] (test gfch=8927) [place] [address] POCT-GLUCOSE [id number] 07:07:00 Test Item Value Reference Range Comments POC-GLUCOSE METER (BEAKER) 200 mg/dL 70-110 TESTED AT [address] (test hgyb=0351) [place] [id number] POCT-GLUCOSE [id number] 07:07:00 Test Item Value Reference Range Comments POC-GLUCOSE METER (BEAKER) 213 mg/dL 70-110 TESTED AT [address] (test olsx=2707) [place] [id number] BLOOD GAS, [id number] 01:53:00 Test Item Value Reference Range Comments PH ARTERIAL (BEAKER) (test ktff=519) 7.45 7.35-7.45 PCO2 ARTERIAL (BEAKER) (test gryq=049) 28 mmHg 35-45 PO2 ARTERIAL (BEAKER) (test ewbn=686) 81 mmHg 80-90 O2 SATURATION ARTERIAL (BEAKER) (test tpjt=749) 96.8 % 96.0-97.0 HCO3 ARTERIAL (BEAKER) (test fkfi=205) 19 mmol/L 21-29 BASE EXCESS ARTERIAL (BEAKER) (test vynp=198) -4.1 mmol/L -2.0-3.0 PATIENT TEMPERATURE (BEAKER) (test acin=6498) 36.2 C FIO2 (BEAKER) (test vifk=7583) 36.0 % RAD, CHEST, 1 VIEW, NON [id number] 01:46:00while patient is intubated or has chest [...] MDReport Verified Date/Time: 07/25/2017 01:46:51 Reading Location: [address] Reading Room Electronicallysigned by: DAYSI TORRES M.D. on 07/25/2017 01:46 AMPOCT-GLUCOSE [id number] 00:23:00 Test Item Value Reference Range Comments POC-GLUCOSE METER (BEAKER) 229 mg/dL 70-110 TESTED AT [address] (test nsso=4090) [place] [id number] POCT-GLUCOSE [id number] 00:23:00 Test Item Value Reference Range Comments POC-GLUCOSE METER (BEAKER) 220 mg/dL 70-110 TESTED AT [address] (test ajzf=3000) [place] [id number] POCT-GLUCOSE [id number] 22:34:00 Test Item Value Reference Range Comments POC-GLUCOSE METER (BEAKER) 247 mg/dL 70-110 TESTED AT [address] (test zyau=7588) [place] [id number] POCT-GLUCOSE [id number] 22:34:00 Test Item Value Reference Range Comments POC-GLUCOSE METER (BEAKER) 254 mg/dL 70-110 TESTED AT [address] (test swoe=7829) [place] [id number] BLOOD GAS, [id number] 22:08:00 Test Item Value Reference Range Comments PH ARTERIAL (BEAKER) (test aywx=611) 7.35 7.35-7.45 PCO2 ARTERIAL (BEAKER) (test pljl=177) 36 mmHg 35-45 PO2 ARTERIAL (BEAKER) (test wzgv=317) 68 mmHg 80-90 O2 SATURATION ARTERIAL (BEAKER) (test hnqk=686) 92.8 % 96.0-97.0 HCO3 ARTERIAL (BEAKER) (test mjsb=516) 19 mmol/L 21-29 BASE EXCESS ARTERIAL (BEAKER) (test mnid=370) -5.7 mmol/L -2.0-3.0 PATIENT TEMPERATURE (BEAKER) (test wgyf=4260) 37.0 C FIO2 (BEAKER) (test itak=6861) 40.0 % POTASSIUM-STAT [id number] 22:08:00 Test Item Value Reference Range Comments POTASSIUM (BEAKER) (test fyri=381) 3.9 meq/L 3.6-5.5 [id number] 21:24:00 Test Item Value Reference Range Comments GLUCOSE RANDOM (BEAKER) (test ezvz=045) 232 mg/dL 70-105 [id number] 21:24:00 Test Item Value Reference Range Comments POTASSIUM (BEAKER) (test bahy=265) 3.8 meq/L 3.5-5.1 POCT-GLUCOSE [id number] 19:12:00 Test Item Value Reference Range Comments POC-GLUCOSE METER (BEAKER) 207 mg/dL 70-[address] [facility] [address] [facility] (test mtwb=9706) [facility] [address] URINALYSIS W/ [id number] 17:20:00 Test Item Value Reference Range Comments COLOR (BEAKER) (test kczy=668) Yellow CLARITY (BEAKER) (test blqt=569) Hazy SPECIFIC GRAVITY UA (BEAKER) (test knmm=589) 1.018 1.001-1.035 PH UA (BEAKER) (test njuy=658) 5.0 5.0-8.0 PROTEIN UA (BEAKER) (test edkb=899) 20 mg/dL Negative GLUCOSE UA (BEAKER) (test uurx=806) Negative Negative KETONES UA (BEAKER) (test oikd=387) Negative Negative BILIRUBIN UA (BEAKER) (test eeap=199) Negative Negative BLOOD UA (BEAKER) (test qefa=648) Moderate Negative NITRITE UA (BEAKER) (test bflz=643) Negative Negative LEUKOCYTE ESTERASE UA (BEAKER) (test lzux=590) Negative Negative UROBILINOGEN UA (BEAKER) (test rrkb=965) 0.2 mg/dL 0.2-1.0 RBC UA (BEAKER) (test yxug=261) 114 /HPF WBC UA (BEAKER) (test diwf=529) 17 /HPF BACTERIA (BEAKER) (test gcxy=727) Few MUCUS (BEAKER) (test myne=7349) Occasional SQUAMOUS EPITHELIAL (BEAKER) (test nkch=874) 2 /HPF HYALINE CASTS (BEAKER) (test ueux=874) 9 /LPF SOURCE(BEAKER) (test dkwp=8545) Urine, Frances BLOOD GAS, [id number] 17:02:00 Test Item Value Reference Range Comments PH ARTERIAL (BEAKER) (test vnqf=146) 7.32 7.35-7.45 PCO2 ARTERIAL (BEAKER) (test zybk=037) 43 mmHg 35-45 PO2 ARTERIAL (BEAKER) (test jncs=717) 175 mmHg 80-90 O2 SATURATION ARTERIAL (BEAKER) (test gdej=950) 99.1 % 96.0-97.0 HCO3 ARTERIAL (BEAKER) (test xuzz=602) 22 mmol/L 21-29 BASE EXCESS ARTERIAL (BEAKER) (test uywg=976) -4.5 mmol/L -2.0-3.0 PATIENT TEMPERATURE (BEAKER) (test nvsx=1598) 36.7 C FIO2 (BEAKER) (test oszp=9172) 60.0 % RAD, CHEST, 1 VIEW, NON [id number] 15:57:00Reason for exam:->s./p OHSShould this be performed at the bedside?->YesFINAL REPORT Chest one view compared to July 15, 2016 Discussion: Cardiacprominence, drainage tubes, right IJ line in place. There is pulmonary congestion and atelectasis. There may be small effusions but no pneumothorax. Signed: Taty Osborne Verified Date/Time: 07/24/2017 15:57:34 Reading Location: [place] [id number] Consult Reading Room [id number] 15:25:00 Test Item Value Reference Range Comments MAGNESIUM (BEAKER) (test 2.5 mg/dL 1.6-2.6 Specimen slightly hemolyzed rvvy=757) [id number] 15:25:00 Test Item Value Reference Range Comments PHOSPHORUS (BEAKER) (test 3.5 mg/dL 2.3-4.7 Specimen slightly hemolyzed dvex=519) BASIC METABOLIC [id number] 15:25:00 Test Item Value Reference Range Comments SODIUM (BEAKER) (test 142 meq/L 136-145 vsgl=110) POTASSIUM (BEAKER) (test 4.0 meq/L 3.5-5.1 Specimen slightly ursz=413) hemolyzed CHLORIDE (BEAKER) (test 112 meq/L 98-107 nzsa=477) CO2 (BEAKER) (test 19 meq/L 22-29 hcwf=945) BLOOD UREA NITROGEN 17 mg/dL 7-21 (BEAKER) (test svie=062) CREATININE (BEAKER) (test 1.35 mg/dL 0.57-1.25 Specimen slightly zjcv=922) hemolyzed GLUCOSE RANDOM (BEAKER) 158 mg/dL 70-105 (test vtvr=886) CALCIUM (BEAKER) (test 8.5 mg/dL 8.4-10.2 wkpz=529) EGFR (BEAKER) (test 52 mL/min/1.73 sq m ESTIMATED GFR IS NOT icnw=5821) ACCURATE CREATININE CLEARANCE IN PREDICTING GLOMERULAR FILTRATION RATE. ESTIMATED GFR IS NOT APPLICABLE FOR DIALYSIS PATIENTS. CBC W/PLT COUNT & AUTO [id number] 15:17:00 Test Item Value Reference Range Comments WHITE BLOOD CELL COUNT (BEAKER) (test rmff=577) 17.9 K/ L 3.5-10.5 RED BLOOD CELL COUNT (BEAKER) (test olqw=167) 3.27 M/ L 4.63-6.08 HEMOGLOBIN (BEAKER) (test dgxb=969) 10.8 GM/DL 13.7-17.5 HEMATOCRIT (BEAKER) (test mqfj=882) 32.9 % 40.1-51.0 MEAN CORPUSCULAR VOLUME (BEAKER) (test xdmu=265) 100.6 fL 79.0-92.2 MEAN CORPUSCULAR HEMOGLOBIN (BEAKER) (test 33.0 pg 25.7-32.2 sixh=160) MEAN CORPUSCULAR HEMOGLOBIN CONC (BEAKER) (test 32.8 GM/DL 32.3-36.5 jrwe=201) RED CELL DISTRIBUTION WIDTH (BEAKER) (test 14.2 % 11.6-14.4 whvt=767) PLATELET COUNT (BEAKER) (test abrq=031) 126 K/CU MM 150-450 MEAN PLATELET VOLUME (BEAKER) (test tryn=065) 11.1 fL 9.4-12.4 NUCLEATED RED BLOOD CELLS (BEAKER) (test 0 /100 WBC 0-0 bpfu=578) NEUTROPHILS RELATIVE PERCENT (BEAKER) (test 82 % omtg=886) LYMPHOCYTES RELATIVE PERCENT (BEAKER) (test 12 % mube=455) MONOCYTES RELATIVE PERCENT (BEAKER) (test 5 % mivr=812) EOSINOPHILS RELATIVE PERCENT (BEAKER) (test 0 % jzhb=777) BASOPHILS RELATIVE PERCENT (BEAKER) (test 0 % lceo=144) NEUTROPHILS ABSOLUTE COUNT (BEAKER) (test 14.59 K/ L 1.78-5.38 lsfq=515) LYMPHOCYTES ABSOLUTE COUNT (BEAKER) (test 2.18 K/ L 1.32-3.57 exkl=986) MONOCYTES ABSOLUTE COUNT (BEAKER) (test 0.84 K/ L 0.30-0.82 sshu=805) EOSINOPHILS ABSOLUTE COUNT (BEAKER) (test 0.04 K/ L 0.04-0.54 xhfo=578) BASOPHILS ABSOLUTE COUNT (BEAKER) (test 0.02 K/ L 0.01-0.08 rxsd=294) IMMATURE GRANULOCYTES-RELATIVE PERCENT (BEAKER) 1 % 0-1 (test qavv=5813) LACTIC ACID, ARTERIAL, WHOLE [id number] 15:12:00 Test Item Value Reference Range Comments LACTATE BLOOD ARTERIAL (2) 2.7 mmol/L 0.5-2.2 Specimen slightly hemolyzed (BEAKER) (test oygc=9132) Effective 09/27/2015: Units/Reference Range ChangeNew: 0.5-2.2 mmol/L Previous: 5 -20 mg/dLOXYGEN SATURATION, [id number] 15:10:00 Test Item Value Reference Range Comments O2 SATURATION (MEASURED) (BEAKER) (test qzjs=2738) 78.9 % From distal port of IJ central venous catheterCALCIUM, [id number] 15:07: 00 Test Item Value Reference Range Comments CALCIUM IONIZED (BEAKER) (test ccac=672) 1.11 mmol/L 1.12-1.27 PH, BLOOD (BEAKER) (test wbdi=7575) 7.28 BLOOD GAS, [id number] 15:07:00 Test Item Value Reference Range Comments PH ARTERIAL (BEAKER) (test crme=665) 7.28 7.35-7.45 PCO2 ARTERIAL (BEAKER) (test bvjc=288) 45 mmHg 35-45 PO2 ARTERIAL (BEAKER) (test ejbf=913) 119 mmHg 80-90 O2 SATURATION ARTERIAL (BEAKER) (test siuu=191) 97.9 % 96.0-97.0 HCO3 ARTERIAL (BEAKER) (test qyrm=349) 21 mmol/L 21-29 BASE EXCESS ARTERIAL (BEAKER) (test lebu=264) -6.2 mmol/L -2.0-3.0 PATIENT TEMPERATURE (BEAKER) (test bjpf=3316) 36.3 C FIO2 (BEAKER) (test uobe=9532) 60.0 % [id number] 14:18:00 Test Item Value Reference Range Comments ACTIVATED CLOTTING TIME 114 sec TESTED AT [place] [id number] [facility] (BEAKER) (test hzmw=789) [place] [address] [id number] 14:18:00 Test Item Value Reference Range Comments ACTIVATED CLOTTING TIME 131 sec TESTED AT [place] [id number] [facility] (BEAKER) (test qqwt=215) [place] [address] [id number] 14:18:00 Test Item Value Reference Range Comments ACTIVATED CLOTTING TIME 532 sec TESTED AT [place] [id number] [facility] (BEAKER) (test cevt=070) [place] [address] [id number] 14:18:00 Test Item Value Reference Range Comments ACTIVATED CLOTTING TIME 598 sec TESTED AT [place] [address] [facility] (BEAKER) (test snyl=325) [place] [address] [id number] 14:18:00 Test Item Value Reference Range Comments ACTIVATED CLOTTING TIME [address] [facility] [address] [facility] (BEAKER) (test kggp=935) [facility] [address] [id number] 14:18:00 Test Item Value Reference Range Comments ACTIVATED CLOTTING TIME [address] [facility] [address] (BEAKER) (test glev=722) [facility] [address] PLATELET [id number] 13:19:00 Test Item Value Reference Range Comments PLATELET COUNT (BEAKER) (test plsi=128) 77 K/CU MM 150-450 CALCIUM, [id number] 13:01:00 Test Item Value Reference Range Comments CALCIUM IONIZED (BEAKER) (test xglt=522) 1.22 mmol/L 1.12-1.27 PH, BLOOD (BEAKER) (test gsxo=1858) 7.32 BLOOD GAS, [id number] 13:01:00 Test Item Value Reference Range Comments PH ARTERIAL (BEAKER) (test deaz=556) 7.34 7.35-7.45 PCO2 ARTERIAL (BEAKER) (test jvfb=675) 39 mmHg 35-45 PO2 ARTERIAL (BEAKER) (test jqjs=100) 192 mmHg 80-90 O2 SATURATION ARTERIAL (BEAKER) (test etyv=771) 99.3 % 96.0-97.0 HCO3 ARTERIAL (BEAKER) (test utgp=489) 20 mmol/L 21-29 BASE EXCESS ARTERIAL (BEAKER) (test inah=937) -5.3 mmol/L -2.0-3.0 PATIENT TEMPERATURE (BEAKER) (test mhjh=1911) 35.9 C FIO2 (BEAKER) (test xxfe=1637) 90.0 % GLUCOSE-STAT [id number] 13:01:00 Test Item Value Reference Range Comments GLUCOSE RANDOM (BEAKER) (test mwgw=995) 164 mg/dL 70-110 HGB/HCT (H&H) - STAT [id number] 13:01:00 Test Item Value Reference Range Comments HEMOGLOBIN (BEAKER) (test xviu=945) 11.9 g/dL 13.0-16.8 HEMATOCRIT (BEAKER) (test khqr=095) 35.0 % 40.0-50.0 SODIUM NA-STAT [id number] 13:00:00 Test Item Value Reference Range Comments SODIUM (BEAKER) (test rtrf=450) 136 meq/L 135-148 POTASSIUM-STAT [id number] 13:00:00 Test Item Value Reference Range Comments POTASSIUM (BEAKER) (test fhze=521) 4.3 meq/L 3.6-5.5 PROTHROMBIN [id number] 12:44:00 Test Item Value Reference Range Comments PROTIME (BEAKER) (test vqyo=910) 22.5 seconds 11.7-14.7 INR (BEAKER) (test xviz=279) 2.0 <=5.9 RECOMMENDED COUMADIN/WARFARIN INR THERAPY RANGESSTANDARD DOSE: 2.0 - 3.0 Includes: PROPHYLAXIS forvenous thrombosis, systemic embolization; TREATMENT for venous thrombosis and/or pulmonary embolus.HIGH RISK: Target INR is 2.5-3.5 for patients with mechanical heart valves.[id number] 12:44:00 Test Item Value Reference Range Comments PARTIAL THROMBOPLASTIN TIME (BEAKER) (test 33.1 seconds 22.5-36.0 alxj=463) [id number] 12:44:00 Test Item Value Reference Range Comments FIBRINOGEN LEVEL (BEAKER) (test qmld=759) 287 mg/dl 225-434 BLOOD GAS, [id number] 12:25:00 Test Item Value Reference Range Comments PH ARTERIAL (BEAKER) (test ejew=674) 7.30 7.35-7.45 PCO2 ARTERIAL (BEAKER) (test yegg=872) 41 mmHg 35-45 PO2 ARTERIAL (BEAKER) (test exze=596) 175 mmHg 80-90 O2 SATURATION ARTERIAL (BEAKER) (test wgyn=072) 99.1 % 96.0-97.0 HCO3 ARTERIAL (BEAKER) (test aovv=383) 20 mmol/L 21-29 BASE EXCESS ARTERIAL (BEAKER) (test nrbt=563) -6.5 mmol/L -2.0-3.0 PATIENT TEMPERATURE (BEAKER) (test xwae=5816) 35.7 C FIO2 (BEAKER) (test mtsf=7256) 90.0 % GLUCOSE-STAT [id number] 12:25:00 Test Item Value Reference Range Comments GLUCOSE RANDOM (BEAKER) (test wdqk=812) 162 mg/dL 70-110 HGB/HCT (H&H) - STAT [id number] 12:25:00 Test Item Value Reference Range Comments HEMOGLOBIN (BEAKER) (test mhtu=150) 11.1 g/dL 13.0-16.8 HEMATOCRIT (BEAKER) (test ikwy=502) 33.0 % 40.0-50.0 CALCIUM, [id number] 12:25:00 Test Item Value Reference Range Comments CALCIUM IONIZED (BEAKER) (test ikgc=110) 1.08 mmol/L 1.12-1.27 PH, BLOOD (BEAKER) (test mior=3349) 7.28 SODIUM NA-STAT [id number] 12:24:00 Test Item Value Reference Range Comments SODIUM (BEAKER) (test djso=946) 136 meq/L 135-148 POTASSIUM-STAT [id number] 12:24:00 Test Item Value Reference Range Comments POTASSIUM (BEAKER) (test tqhm=514) 4.7 meq/L 3.6-5.5 PROTHROMBIN [id number] 11:44:00 Test Item Value Reference Range Comments PROTIME (BEAKER) (test sauk=674) 31.1 seconds 11.7-14.7 INR (BEAKER) (test zpnm=918) 3.0 <=5.9 RECOMMENDED COUMADIN/WARFARIN INR THERAPY RANGESSTANDARD DOSE: 2.0 - 3.0 Includes: PROPHYLAXIS forvenous thrombosis, systemic embolization; TREATMENT for venous thrombosis and/or pulmonary embolus.HIGH RISK: Target INR is 2.5-3.5 for patients with mechanical heart valves.[id number] 11:44:00 Test Item Value Reference Range Comments FIBRINOGEN LEVEL (BEAKER) (test dxiz=778) 335 mg/dl 225-434 PLATELET [id number] 11:32:00 Test Item Value Reference Range Comments PLATELET COUNT (BEAKER) (test ktrz=284) 109 K/CU MM 150-450 SODIUM NA-STAT [id number] 11:28:00 Test Item Value Reference Range Comments SODIUM (BEAKER) (test yksy=253) 136 meq/L 135-148 BLOOD GAS, [id number] 11:28:00 Test Item Value Reference Range Comments PH ARTERIAL (BEAKER) (test dtgb=822) 7.38 7.35-7.45 PCO2 ARTERIAL (BEAKER) (test yuxb=561) 39 mmHg 35-45 PO2 ARTERIAL (BEAKER) (test urzn=111) 402 mmHg 80-90 O2 SATURATION ARTERIAL (BEAKER) (test koqb=591) 99.8 % 96.0-97.0 HCO3 ARTERIAL (BEAKER) (test ehtu=762) 23 mmol/L 21-29 BASE EXCESS ARTERIAL (BEAKER) (test tfox=650) -2.6 mmol/L -2.0-3.0 PATIENT TEMPERATURE (BEAKER) (test fmrn=5347) 35.6 C FIO2 (BEAKER) (test nxdo=9525) 80.0 % POTASSIUM-STAT [id number] 11:28:00 Test Item Value Reference Range Comments POTASSIUM (BEAKER) (test aaem=182) 5.6 meq/L 3.6-5.5 GLUCOSE-STAT [id number] 11:28:00 Test Item Value Reference Range Comments GLUCOSE RANDOM (BEAKER) (test bltx=437) 168 mg/dL 70-110 HGB/HCT (H&H) - STAT [id number] 11:28:00 Test Item Value Reference Range Comments HEMOGLOBIN (BEAKER) (test xmya=980) 11.2 g/dL 13.0-16.8 HEMATOCRIT (BEAKER) (test rotf=921) 33.0 % 40.0-50.0 POTASSIUM-STAT [id number] 11:03:00 Test Item Value Reference Range Comments POTASSIUM (BEAKER) (test pflj=510) 4.6 meq/L 3.6-5.5 BLOOD GAS, [id number] 11:03:00 Test Item Value Reference Range Comments PH ARTERIAL (BEAKER) (test wcen=453) 7.28 7.35-7.45 PCO2 ARTERIAL (BEAKER) (test svmw=065) 43 mmHg 35-45 PO2 ARTERIAL (BEAKER) (test qjkj=947) 332 mmHg 80-90 O2 SATURATION ARTERIAL (BEAKER) (test bqxc=859) 99.7 % 96.0-97.0 HCO3 ARTERIAL (BEAKER) (test wwjf=767) 21 mmol/L 21-29 BASE EXCESS ARTERIAL (BEAKER) (test vlds=462) -6.7 mmol/L -2.0-3.0 PATIENT TEMPERATURE (BEAKER) (test gtpo=4017) 33.1 C FIO2 (BEAKER) (test cukc=3322) 80.0 % SODIUM NA-STAT [id number] 11:03:00 Test Item Value Reference Range Comments SODIUM (BEAKER) (test gcmw=259) 134 meq/L 135-148 GLUCOSE-STAT [id number] 11:03:00 Test Item Value Reference Range Comments GLUCOSE RANDOM (BEAKER) (test egjs=428) 157 mg/dL 70-110 HGB/HCT (H&H) - STAT [id number] 11:03:00 Test Item Value Reference Range Comments HEMOGLOBIN (BEAKER) (test gcdf=285) 11.8 g/dL 13.0-16.8 HEMATOCRIT (BEAKER) (test tpar=087) 35.0 % 40.0-50.0 BLOOD GAS, [id number] 11:01:00 Test Item Value Reference Range Comments PH VENOUS (BEAKER) (test muun=087) 7.27 7.32-7.42 PCO2 VENOUS (BEAKER) (test fhkg=977) 45 mmHg 41-51 PO2 VENOUS (BEAKER) (test uecv=903) 46 mmHg 25-40 O2 SATURATION VENOUS (BEAKER) (test ynrw=751) 85.7 % 40.0-70.0 HCO3 VENOUS (BEAKER) (test qyii=482) 22 mmol/L 21-29 BASE EXCESS VENOUS (BEAKER) (test zxqx=243) -6.5 mmol/L -2.0-3.0 PATIENT TEMPERATURE (BEAKER) (test ccho=6475) 33.1 C FIO2 (BEAKER) (test ivqp=4525) 80.0 % BLOOD GAS, [id number] 09:32:00 Test Item Value Reference Range Comments PH ARTERIAL (BEAKER) (test vque=115) 7.38 7.35-7.45 PCO2 ARTERIAL (BEAKER) (test aqvh=405) 36 mmHg 35-45 PO2 ARTERIAL (BEAKER) (test jgsf=876) 341 mmHg 80-90 O2 SATURATION ARTERIAL (BEAKER) (test nzql=471) 99.7 % 96.0-97.0 HCO3 ARTERIAL (BEAKER) (test rftb=465) 21 mmol/L 21-29 BASE EXCESS ARTERIAL (BEAKER) (test nzlb=664) -4.0 mmol/L -2.0-3.0 PATIENT TEMPERATURE (BEAKER) (test bkmw=2007) 35.9 C FIO2 (BEAKER) (test dvby=7517) 90.0 % GLUCOSE-STAT [id number] 09:32:00 Test Item Value Reference Range Comments GLUCOSE RANDOM (BEAKER) (test nxjv=600) 151 mg/dL 70-110 SODIUM NA-STAT [id number] 09:31:00 Test Item Value Reference Range Comments SODIUM (BEAKER) (test enuf=250) 136 meq/L 135-148 POTASSIUM-STAT [id number] 09:31:00 Test Item Value Reference Range Comments POTASSIUM (BEAKER) (test exdp=870) 4.2 meq/L 3.6-5.5 HGB/HCT (H&H) - STAT [id number] 09:31:00 Test Item Value Reference Range Comments HEMOGLOBIN (BEAKER) (test qhcn=180) 16.5 g/dL 13.0-16.8 HEMATOCRIT (BEAKER) (test ltgz=207) 49.0 % 40.0-50.0 RAD, CHEST, 2 [id number] 12:00:00Reason for Exam:->Pre-OpFINAL REPORT TECHNIQUE: Frontal and [...] Mcdaniels Verified Date/Time: 07/22/2017 12:00:46 Reading Location: [facility] Radiology Reading Room HEMOGLOBIN [id number] 11:51:00 Test Item Value Reference Range Comments HEMOGLOBIN A1C (BEAKER) (test rpdo=180) 7.6 % 4.3-6.1 BASIC METABOLIC [id number] 10:24:00 Test Item Value Reference Range Comments SODIUM (BEAKER) (test 139 meq/L 136-145 lqkq=413) POTASSIUM (BEAKER) (test 4.3 meq/L 3.5-5.1 qqeg=383) CHLORIDE (BEAKER) (test 110 meq/L 98-107 lkxg=211) CO2 (BEAKER) (test 21 meq/L 22-29 inoj=025) BLOOD UREA NITROGEN 21 mg/dL 7-21 (BEAKER) (test zcpq=864) CREATININE (BEAKER) (test 1.38 mg/dL 0.57-1.25 dbof=730) GLUCOSE RANDOM (BEAKER) 147 mg/dL 70-105 (test gggb=276) CALCIUM (BEAKER) (test 8.6 mg/dL 8.4-10.2 ntvg=628) EGFR (BEAKER) (test 50 mL/min/1.73 sq m ESTIMATED GFR IS NOT hgix=7107) ACCURATE CREATININE CLEARANCE IN PREDICTING GLOMERULAR FILTRATION RATE. ESTIMATED GFR IS NOT APPLICABLE FOR DIALYSIS PATIENTS. PROTHROMBIN TIME/[id number] 10:21:00 Test Item Value Reference Range Comments PROTIME (BEAKER) (test etyy=531) 14.9 seconds 11.7-14.7 INR (BEAKER) (test zoza=936) 1.2 <=5.9 RECOMMENDED COUMADIN/WARFARIN INR THERAPY RANGESSTANDARD DOSE: 2.0 - 3.0 Includes: PROPHYLAXIS forvenous thrombosis, systemic embolization; TREATMENT for venous thrombosis and/or pulmonary embolus.HIGH RISK: Target INR is 2.5-3.5 for patients with mechanical heart valves.CBC W/PLT COUNT & AUTO [id number] 10:11:00 Test Item Value Reference Range Comments WHITE BLOOD CELL COUNT (BEAKER) (test dhqm=102) 6.3 K/ L 3.5-10.5 RED BLOOD CELL COUNT (BEAKER) (test qiee=634) 4.77 M/ L 4.63-6.08 HEMOGLOBIN (BEAKER) (test hshr=647) 15.8 GM/DL 13.7-17.5 HEMATOCRIT (BEAKER) (test uxip=165) 47.0 % 40.1-51.0 MEAN CORPUSCULAR VOLUME (BEAKER) (test drau=644) 98.5 fL 79.0-92.2 MEAN CORPUSCULAR HEMOGLOBIN (BEAKER) (test 33.1 pg 25.7-32.2 opfz=147) MEAN CORPUSCULAR HEMOGLOBIN CONC (BEAKER) (test 33.6 GM/DL 32.3-36.5 kptq=664) RED CELL DISTRIBUTION WIDTH (BEAKER) (test 14.3 % 11.6-14.4 jtwk=366) PLATELET COUNT (BEAKER) (test fvjw=963) 161 K/CU MM 150-450 MEAN PLATELET VOLUME (BEAKER) (test hfhc=037) 11.2 fL 9.4-12.4 NUCLEATED RED BLOOD CELLS (BEAKER) (test 0 /100 WBC 0-0 lqnp=569) NEUTROPHILS RELATIVE PERCENT (BEAKER) (test 72 % zpwp=745) LYMPHOCYTES RELATIVE PERCENT (BEAKER) (test 18 % xyio=865) MONOCYTES RELATIVE PERCENT (BEAKER) (test 8 % hsjp=283) EOSINOPHILS RELATIVE PERCENT (BEAKER) (test 1 % edrc=985) BASOPHILS RELATIVE PERCENT (BEAKER) (test 1 % bbfp=214) NEUTROPHILS ABSOLUTE COUNT (BEAKER) (test 4.47 K/ L 1.78-5.38 pcqg=254) LYMPHOCYTES ABSOLUTE COUNT (BEAKER) (test 1.15 K/ L 1.32-3.57 budg=535) MONOCYTES ABSOLUTE COUNT (BEAKER) (test 0.48 K/ L 0.30-0.82 umuw=252) EOSINOPHILS ABSOLUTE COUNT (BEAKER) (test 0.07 K/ L 0.04-0.54 pvvs=482) BASOPHILS ABSOLUTE COUNT (BEAKER) (test 0.04 K/ L 0.01-0.08 bwqi=789) IMMATURE GRANULOCYTES-RELATIVE PERCENT (BEAKER) 1 % 0-1 (test kfsc=[id number])
[2018-03-01 01:12] LABS: Arterial Blood Carboxyhemoglob 1.5 % (0-1.5); Blood Gas Oxyhemoglobin 92.5 % (94-97); Blood O2 Saturation 94.8 % (92-98.5)
[2018-03-01 01:31] LABS: Absolute Lymphocytes (CBC) 0.9 K/uL (0.7-4.9); Absolute Monocytes 0.7 K/uL (0.1-1.3); Absolute Neutrophil 12.7 K/uL (1.8-8.0); Basophils % 0.3 % (0-1.3); Eosinophils % 0.5 % (0-4.4); Hematocrit 31.6 % (39.6-49.0); Lymphocytes % 6.5 % (15.3-44.8); MCH 27.2 pg (27.0-35.0); MCV 85.7 fL (80-100); RBC Red Blood Cell Count 3.69 M/uL (4.33-5.43)
[2018-03-01 01:39] LABS: Protime INR 3.1
[2018-03-01 01:52] LABS: Albumin 2.5 g/dL (3.4-5.0); Bilirubin Direct 0.1 mg/dL (0-0.2); Bilirubin Total 0.3 mg/dL (0.2-1.0); Magnesium 2.1 mg/dL (1.8-2.4); Potassium 4.3 mmol/L (3.5-5.1); Protein, Total 7.5 g/dL (6.4-8.2); Troponin (Emerg Dept Use Only) 0.02 ng/mL (0.0-0.045)
[2018-03-01 02:30] LABS: Blood Morphology Comment NOT SEEN (NOT SEEN); Platelet Estimate ADEQ; Urine White Blood Cell Casts OK
--- NOTE | 2018-03-01 02:53 | EDPHYS ---
Physician Documentation [facility] Name: Hudson Pacheco Age: 72 yrs Sex: Male : 1945 Arrival Date: 03/01/2018 Time: 00:54 Bed 7 Private MD: ED Physician Hari Mendes HPI: 03/01 01:06 This 72 yrs old Male presents to ER via EMS with complaints of Breathing pkl Difficulty. 01:06 The patient has shortness of breath at rest. Onset: The symptoms/episode began/occurred pkl just prior to arrival, 3 hour(s) ago. Associated signs and symptoms: Pertinent positives: chest pain. Historical: - Allergies: 01:00 No Known Allergies; ao - Home Meds: 01:00 acetaminophen-codeine 300-30 mg Oral tab twice a day for Pain [Active]; allopurinol 100 ao mg Oral tab 1 tab once daily [Active]; amiodarone 200 mg Oral tab 1 tab once daily [Active]; atorvastatin 40 mg Oral tab 1 tab once daily [Active]; Centrum Silver Oral daily [Active]; metoprolol succinate 50 mg Oral Tb24 [Active]; escitalopram oxalate 10 mg Oral tab 1 tab once daily [Active]; pantoprazole 40 mg Oral TbEC 1 tab once daily [Active]; Xarelto 20 mg Oral tab 1 tab once daily [Active]; Lasix Oral [Active]; - PMHx: 01:00 "fluid on the lungs"; Atrial Fib; CVA; Diabetes - NIDDM; Gout; Hyperlipidemia; CHF; ao - PSHx: 01:00 Triple ByPass; ao 01:01 Colostomy; ao - Immunization history:: Adult Immunizations up to date. - Social history:: Smoking status: Patient/guardian denies using tobacco, Patient/guardian denies using alcohol, street drugs. - Ebola Screening: : Patient negative for fever greater than or equal to 101.5 degrees Fahrenheit, and additional compatible Ebola Virus Disease symptoms Patient denies exposure to infectious person Patient denies travel to an Ebola-affected area in the 21 days before illness onset. ROS: 01:06 Eyes: Negative for injury, pain, redness, and discharge, ENT: Negative for injury, pkl pain, and discharge, Neck: Negative for injury, pain, and swelling. 01:06 Cardiovascular: Positive for chest pain. 01:06 Respiratory: Positive for shortness of breath. 01:06 Abdomen/GI: Negative for abdominal pain, nausea, vomiting, and diarrhea. 01:06 Back: Negative for acute changes. 01:06 : Negative for urinary symptoms. 01:06 MS/extremity: Negative for acute changes. 01:06 Skin: Negative for rash. 01:06 Neuro: Negative for altered mental status. Exam: 01:06 Head/Face: Normocephalic, atraumatic. Eyes: Pupils equal round and reactive to light, pkl extra-ocular motions intact. Lids and lashes normal. Conjunctiva and sclera are non-icteric and not injected. Cornea within normal limits. Periorbital areas with no swelling, redness, or edema. ENT: Nares patent. No nasal discharge, no septal abnormalities noted. Tympanic membranes are normal and external auditory canals are clear. Oropharynx with no redness, swelling, or masses, exudates, or evidence of obstruction, uvula midline. Mucous membranes moist. Neck: Trachea midline, no thyromegaly or masses palpated, and no cervical lymphadenopathy. Supple, full range of motion without nuchal rigidity, or vertebral point tenderness. No Meningismus. Chest/axilla: Normal chest wall appearance and motion. Nontender with no deformity. No lesions are appreciated. Cardiovascular: Regular rate and rhythm with a normal S1 and S2. No gallops, murmurs, or rubs. Normal PMI, no JVD. No pulse deficits. 01:06 Respiratory: mild respiratory distress is noted, Respirations: labored breathing, Breath sounds: rales, that are mild, are scattered. 01:06 Abdomen/GI: Bowel sounds: normal, Palpation: abdomen is soft and non-tender, in all quadrants. 01:06 Back: Exam negative for acute changes. 01:06 : Exam negative for acute changes. 01:06 Musculoskeletal/extremity: Exam is negative for acute changes. 01:06 Skin: Exam negative for rash. 01:06 Neuro: Orientation: appropriate for stated age, Mentation: is normal, Cranial nerves: grossly normal, Motor: is normal. Vital Signs: 00:50 BP 126 / 63; Pulse 74; Resp 22; Temp 98.1(O); Pulse Ox 89% on R/A; Weight 108.86 kg ao (R); Height 6 ft. 0 in. (182.88 cm) (R); Pain 0/10; 01:55 BP 99 / 57; Pulse 66; Resp 26; Pulse Ox 98% on 2 lpm NC; ao 02:58 BP 104 / 57; Pulse 67; Resp 27; Pulse Ox 97% on R/A; Pain 0/10; ao 04:10 BP 99 / 53; Pulse 98; Resp 24; Pulse Ox 97% ; Pain 0/10; ao 05:20 BP 100 / 56; Pulse 96; Resp 22; Pulse Ox 96% ; ao 06:22 BP 98 / 72; Pulse 63; Resp 26; Pulse Ox 94% on R/A; ao 06:59 BP 117 / 71; Pulse 62; Resp 26; Pulse Ox 100% on R/A; Pain 0/10; ao 07:34 BP 110 / 72; Pulse 53; Resp 24; Temp 97.8; Pulse Ox 100% on 2 lpm NC; ph 00:50 Body Mass Index 32.55 (108.86 kg, 182.88 cm) ao MDM: 00:59 Patient medically screened. pkl 02:50 Data reviewed: vital signs, nurses notes, lab test result(s), EKG, radiologic studies, pkl plain films. 03/01 01:05 Order name: Basic Metabolic Panel; Complete Time: 02:05 pkl 03/01 01:05 Order name: CBC with Diff; Complete Time: 02:48 pkl 03/01 01:05 Order name: LFT's; Complete Time: 02:05 pkl 03/01 01:05 Order name: Magnesium; Complete Time: 02:05 pkl 03/01 01:05 Order name: NT PRO-BNP; Complete Time: 02:05 pkl 03/01 01:05 Order name: PT-INR; Complete Time: 02:05 pkl 03/01 01:05 Order name: Troponin (emerg Dept Use Only); Complete Time: 02:05 pkl 03/01 01:05 Order name: ABG; Complete Time: 02:05 pkl 03/01 02:07 Order name: Lactate pkl 03/01 02:07 Order name: Procalcitonin; Complete Time: 03:32 pkl 03/01 02:07 Order name: CRP; Complete Time: 03:23 pkl 03/01 02:07 Order name: Blood Culture Adult (2) pkl 03/01 02:08 Order name: Lactate; Complete Time: 03:32 EDMS 03/01 02:30 Order name: CBC Smear Scan; Complete Time: 02:48 EDMS 03/01 01:05 Order name: XRAY Chest (1 view) pkl 03/01 01:05 Order name: EKG; Complete Time: 01:06 pkl 03/01 01:05 Order name: Cardiac monitoring; Complete Time: 01:07 pkl 03/01 06:40 Order name: Regular EDMS 03/01 06:40 Order name: Basic Metabolic Panel EDMS 03/01 06:40 Order name: Basic Metabolic Panel EDMS 03/01 06:40 Order name: CBC with Automated Diff EDMS 03/01 06:40 Order name: CBC with Automated Diff EDMS 03/01 06:40 Order name: NT PRO-BNP EDMS 03/01 06:40 Order name: NT PRO-BNP EDMS 03/01 06:40 Order name: Troponin I EDMS 03/01 06:40 Order name: Troponin I EDMS 03/01 06:40 Order name: Troponin I EDMS 03/01 07:14 Order name: Lactate Sepsis 2 HR Follow-up EDMS 03/01 01:05 Order name: EKG - Nurse/Tech; Complete Time: 01:07 pkl 03/01 01:05 Order name: IV Saline Lock; Complete Time: 01:07 pkl 03/01 01:05 Order name: Labs collected and sent; Complete Time: 01:08 pkl 03/01 01:05 Order name: O2 Per Protocol; Complete Time: 01:08 pkl 03/01 01:05 Order name: O2 Sat Monitoring; Complete Time: 01:08 pkl Administered Medications: 03:18 Drug: Zosyn 3.375 grams Route: IVPB; Infused Over: 60 mins; Site: right forearm; ak1 07:03 Follow up: IV Status: Completed infusion; IV Intake: 100ml ao 03:22 Drug: LaSIX 40 mg Route: PO; ao 07:02 Follow up: Response: No adverse reaction ao Disposition: 02:52 Critical Care:. pkl Disposition: 03/01/18 02:52 Hospitalization ordered by Dylon Omer for Inpatient Admission. Preliminary diagnosis is Acute dyspnea. Congestive heart failure. Possible pneumonia. - Bed requested for Telemetry/MedSurg (Inpatient). - Status is Inpatient Admission. eb - Condition is Stable. - Problem is new. - Symptoms are unchanged. UTI on Admission? No Signatures: Dispatcher [employer] EDHari Schmitz MD MD pkl Rosalinda Lees, RN RN ak1 Triston Johnson, RN RN ao Lalitha Webb, ZO RN df Natasha Stephen Corrections: (The following items were deleted from the chart) 07:31 02:52 Hospitalization Ordered by Dylon Omer MD for Inpatient Admission. Preliminary df diagnosis is Acute dyspnea. Congestive heart failure. Possible pneumonia. Bed requested for Telemetry/MedSurg (Inpatient). Status is Inpatient Admission. Condition is Stable. Problem is new. Symptoms are unchanged. UTI on Admission? No. pkl 08:38 07:31 03/01/2018 02:52 Hospitalization Ordered by Dylon Omer MD for Inpatient eb Admission. Preliminary diagnosis is Acute dyspnea. Congestive heart failure. Possible pneumonia. Bed requested for Telemetry/MedSurg (Inpatient). Status is Inpatient Admission. Condition is Stable. Problem is new. Symptoms are unchanged. UTI on Admission? No. df
--- NOTE | 2018-03-01 02:53 | ER ---
Nurse's Notes [facility] Name: Hudson Pacheco Age: 72 yrs Sex: Male : 1945 Arrival Date: 03/01/2018 Time: 00:54 Bed 7 Private MD: Diagnosis: Acute dyspnea. Congestive heart failure. Possible pneumonia Presentation: 03/01 00:54 Presenting complaint: EMS states: Difficulty breathing since 2200 or before patient ao went to bed. EMS report oxygenation of 88 RA at home. Transition of care: patient was not received from another setting of care. Onset of symptoms was February 28, 2018 at 22:00. Risk Assessment: Do you want to hurt yourself or someone else? Patient reports no desire to harm self or others. Initial Sepsis Screen: Does the patient meet any 2 criteria? No. Patient's initial sepsis screen is negative. Does the patient have a suspected source of infection? No. Patient's initial sepsis screen is negative. Care prior to arrival: None. 00:54 Method Of Arrival: EMS: [facility] ao 00:54 Acuity: ESTELLE 2 ao Triage Assessment: 01:04 Respiratory: Onset: The symptoms/episode began/occurred suddenly, the patient has ao severe shortness of breath. Respiratory: Breath sounds are diminished Breath sounds with wheezes. Respiratory: Airway is patent Respiratory effort is labored, Respiratory pattern is regular. Historical: - Allergies: 01:00 No Known Allergies; ao - Home Meds: 01:00 acetaminophen-codeine 300-30 mg Oral tab twice a day for Pain [Active]; allopurinol 100 ao mg Oral tab 1 tab once daily [Active]; amiodarone 200 mg Oral tab 1 tab once daily [Active]; atorvastatin 40 mg Oral tab 1 tab once daily [Active]; Centrum Silver Oral daily [Active]; metoprolol succinate 50 mg Oral Tb24 [Active]; escitalopram oxalate 10 mg Oral tab 1 tab once daily [Active]; pantoprazole 40 mg Oral TbEC 1 tab once daily [Active]; Xarelto 20 mg Oral tab 1 tab once daily [Active]; Lasix Oral [Active]; - PMHx: 01:00 "fluid on the lungs"; Atrial Fib; CVA; Diabetes - NIDDM; Gout; Hyperlipidemia; CHF; ao - PSHx: 01:00 Triple ByPass; ao 01:01 Colostomy; ao - Immunization history:: Adult Immunizations up to date. - Social history:: Smoking status: Patient/guardian denies using tobacco, Patient/guardian denies using alcohol, street drugs. - Ebola Screening: : Patient negative for fever greater than or equal to 101.5 degrees Fahrenheit, and additional compatible Ebola Virus Disease symptoms Patient denies exposure to infectious person Patient denies travel to an Ebola-affected area in the 21 days before illness onset. Screenin:07 Abuse screen: Denies threats or abuse. Denies injuries from another. Nutritional ao screening: No deficits noted. Tuberculosis screening: No symptoms or risk factors identified. Fall Risk Assessment: 01:02 General: Appears in no apparent distress. uncomfortable, Behavior is calm, cooperative, ao appropriate for age. Pain: Complains of pain in chest Pain does not radiate. Pain currently is 3 out of 10 on a pain scale. Neuro: Level of Consciousness is awake, alert, obeys commands, Oriented to person, place, time, situation, Appropriate for age Moves all extremities. Full function Speech is normal. Cardiovascular: Capillary refill < 3 seconds Patient's skin is warm and dry. Rhythm is atrial fibrillation. Respiratory: Airway is patent Respiratory effort is labored, Respiratory pattern is regular, Breath sounds with wheezes bilaterally. Respiratory: Reports shortness of breath at rest. GI: Abdomen is distended, obese. : No signs and/or symptoms were reported regarding the genitourinary system. EENT: No signs and/or symptoms were reported regarding the EENT system. Derm: Skin is intact, Skin is normal, Skin temperature is warm. Musculoskeletal: Circulation, motion, and sensation intact. Range of motion: intact in all extremities. 01:55 Reassessment: Patient appears in no apparent distress at this time. Patient and/or ao family updated on plan of care and expected duration. Pain level reassessed. 02:20 Reassessment: Patient appears in no apparent distress at this time. Patient and/or ao family updated on plan of care and expected duration. Pain level reassessed. 03:20 Reassessment: Patient appears in no apparent distress at this time. Patient and/or ao family updated on plan of care and expected duration. Pain level reassessed. 04:20 Reassessment: Patient appears in no apparent distress at this time. Patient and/or ao family updated on plan of care and expected duration. Pain level reassessed. 05:20 Reassessment: Patient appears in no apparent distress at this time. Patient and/or ao family updated on plan of care and expected duration. Pain level reassessed. Waiting on hospital room assignment. 06:19 Reassessment: Patient appears in no apparent distress at this time. Patient and/or ao family updated on plan of care and expected duration. Pain level reassessed. Patient has no room assignment. waiting on room assignment. Vital Signs: 00:50 BP 126 / 63; Pulse 74; Resp 22; Temp 98.1(O); Pulse Ox 89% on R/A; Weight 108.86 kg ao (R); Height 6 ft. 0 in. (182.88 cm) (R); Pain 0/10; 01:55 BP 99 / 57; Pulse 66; Resp 26; Pulse Ox 98% on 2 lpm NC; ao 02:58 BP 104 / 57; Pulse 67; Resp 27; Pulse Ox 97% on R/A; Pain 0/10; ao 04:10 BP 99 / 53; Pulse 98; Resp 24; Pulse Ox 97% ; Pain 0/10; ao 05:20 BP 100 / 56; Pulse 96; Resp 22; Pulse Ox 96% ; ao 06:22 BP 98 / 72; Pulse 63; Resp 26; Pulse Ox 94% on R/A; ao 06:59 BP 117 / 71; Pulse 62; Resp 26; Pulse Ox 100% on R/A; Pain 0/10; ao 07:34 BP 110 / 72; Pulse 53; Resp 24; Temp 97.8; Pulse Ox 100% on 2 lpm NC; ph 00:50 Body Mass Index 32.55 (108.86 kg, 182.88 cm) ao ED Course: 00:54 Patient arrived in ED. ao 00:56 Triage completed. ao 00:57 Arm band placed on right wrist. Patient placed in an exam room, on a stretcher, on ao oxygen, on cloud architect, on pulse oximetry. 00:59 Hari Mendes MD is Attending Physician. pkl 01:02 Inserted saline lock: 20 gauge in right forearm, using aseptic technique. ak1 01:06 Patient has correct armband on for positive identification. machine tool dresser on. Pulse ao ox on. NIBP on. 01:31 X-ray completed. Portable x-ray completed in exam room. Patient tolerated procedure tm4 well. 01:33 XRAY Chest (1 view) In Process Unspecified. EDMS 01:55 Triston Johnson, RN is Primary Nurse. ao 02:32 Inserted saline lock: 20 gauge in left antecubital area, using aseptic technique. ao ,using aseptic technique. Ultrasound guided IV Blood collected. 02:51 Dylon Omer MD is Hospitalizing Provider. pkl 03:31 Notified ED physician of a critical lab result(s). 2.2 lactate. ak1 07:13 Report given to ZO Benitez and ZO Esquivel. ao 07:32 Eli Nogueira RN is Primary Nurse. ph 08:09 No provider procedures requiring assistance completed. Patient admitted, IV remains in sv place. intact. Administered Medications: 03:18 Drug: Zosyn 3.375 grams Route: IVPB; Infused Over: 60 mins; Site: right forearm; ak1 07:03 Follow up: IV Status: Completed infusion; IV Intake: 100ml ao 03:22 Drug: LaSIX 40 mg Route: PO; ao 07:02 Follow up: Response: No adverse reaction ao Intake: 07:03 IV: 100ml; Total: 100ml. ao Outcome: 02:52 Decision to Hospitalize by Provider. pkl 08:09 Admitted to Tele accompanied by tech, family with patient, via stretcher, room 209, sv with oxygen, with chart, Report called to Efra PATHAK 08:09 Condition: stable 08:09 Instructed on the need for admit. 08:38 Patient left the ED. eb Signatures: Dispatcher [employer] Sierra Wood RN RN sv Lam, Pin, MD MD pkDipti Davenport tm4 Rosalinda Lees RN RN ak1 Eli Nogueira RN RN Triston Johnson RN Natasha Archer
[2018-03-01] MEDS ORDERED: FUROSEMIDE 40 MG TABLET ONE (03:08)
[2018-03-01] MEDS ORDERED: PIPER/TAZO/NS 3.375gm 3.375 GM/100 ML BAG ONE (03:08)
[2018-03-01] MEDS ORDERED: IPRATROPIUM BROM 0.5MG/2.5ML NEB PRN (06:36)
[2018-03-01] MEDS ORDERED: ALBUTEROL 2.5 MG/3 ML NEB SOL NEB PRN (06:36)
[2018-03-01] MEDS ORDERED: ACETAMINOPHEN 500 MG TAB PO PRN (06:36)
[2018-03-01] MEDS ORDERED: PIPER/TAZO/NS 3.375gm 3.375 GM/100 ML BAG IVPB SCH (07:15)
[2018-03-01] MEDS: FUROSEMIDE 40 MG/4 ML VIAL IV SCH ×2 (09:00→17:54)
--- NOTE | 2018-03-01 09:53 | P.HP ---
Certification for Inpatient Patient admitted to: Inpatient With expected LOS: >2 Midnights Practitioner: I am a practitioner with admitting privileges, knowledge of patient current condition, hospital course, and medical plan of care. Services: Services provided to patient in accordance with Admission requirements found in Title 42 Section 412.3 of the Code of Federal Regulations Patient History Date of Service: 03/01/18 Reason for admission: DYSPNEA AND CHEST PAIN History of Present Illness: IS AN OBESE DIABETIC WITH LARGE DECUBITUS ULCER SEEN AT [facility]. ULCER IS FROM LONG STAY HE HAD AT [facility] FOR DIVERTICULITIS, ABSCESS, COLOSTOMY ETC. CURRENTLY HE IS ATHOME WITH AND HAS HOSPITAL BED. AFTER A HOME MADE HAMBURGER WITH PICKLE HE HAD CHEST PAIN FOR ABOUT TWO HOURS AND DYSPNEA. HE NOW IS LOT MORE COMFORTABLE BUT STILL SOMEWHAT DYSPNEIC. HE HAS LOST ABOUT 70 LBS SINCE HE GOT SICK MONTHS AGO. Allergies No Known Drug Allergies Allergy (Verified 07/17/17 15:39) Unknown No Known Allergies Allergy (Uncoded 12/22/17 04:18) Unknown - Past Medical/Surgical History Has patient received pneumonia vaccine in the past: No Diabetic: No -: Prior elboW pain -: LYMPHEDEMA -: GOUT -: HYPERTENSION -: HIGH CHOLESTEROL -: OBESITY -: Afib -: SD -: sacrum wound with wound vac -: sebaceous cyst July 2012 -: two back sx 1969 & 1981 -: bladder sx 2006 -: triple bypass july 2017 - Family History Father -: Heart disease, Diabetes Mother -: Cancer - Social History Smoking Status: Former smoker Alcohol use: No CD- Drugs: No Caffeine use: No Place of Residence: Home Review of Systems 10-point ROS is otherwise unremarkable General: Weakness, Malaise Respiratory: Shortness of Breath Gastrointestinal: Other (COLOSTOMY) Physical Examination - Vital Signs Temperature: 98 F Blood Pressure: 117/60 Pulse: 66 Respirations: 18 Pulse Ox (%): 97 - Physical Exam General: Alert, Mild distress HEENT: Atraumatic, PERRLA, Mucous membr. moist/pink, EOMI, Sclerae nonicteric Neck: Supple, 2+ carotid pulse no bruit, No LAD, Without JVD or thyroid abnormality Respiratory: Diminished, Other (ABDOMINOTHORACIC BREATHING.) Cardiovascular: Regular rate/rhythm, Normal S1 S2 Gastrointestinal: Normal bowel sounds, No tenderness Musculoskeletal: No tenderness Integumentary: No rashes Neurological: Normal gait, Normal speech, Normal strength at 5/5 x4 extr, Normal tone, Normal affect Lymphatics: No axilla or inguinal lymphadenopathy - Studies Laboratory Data (last 24 hrs) 03/01/18 06:43: Troponin I 0.18 H 03/01/18 01:22: PT 37.0 H, INR 3.10 03/01/18 01:22: WBC 14.5 H, Hgb 10.0 L, Hct 31.6 L, Plt Count 312 03/01/18 01:22: Sodium 141, Potassium 4.3, BUN 28 H, Creatinine 1.80 H, Glucose 191 H, Magnesium 2.1, Total Bilirubin 0.3, AST 11 L, ALT 16, Alkaline Phosphatase 85 Assessment and Plan - Problems (Diagnosis) (1) Bacterial pneumonia Current Visit: Yes Status: Acute Plan: IV ZOSYN NOT CLEAR ABOUT PNEUMONIA BUT LACTATE AND CRP ARE HIGH. RESUME ABX. CXR SHOWS MORE FLUID OVERLAOD THAN PNEUMONIA OFFICIAL REPORT PENDING. NO COUGH,NO SPUTUM, NO FEVER. WBC IS MILD HIGH. PROCALCITONIN NEGATIVE. CRP CAN BE HIGH FROM MANY ISSUES INCLUDING ULCER ETC. (2) Diabetes Current Visit: Yes Status: Chronic Plan: BETTER AFTER HE LOST WEIGHT. HE IS DECONDITIONED FROM MORBID OBESITY AND NOW IS SUFFERING FROM CONSEQUENCES. Qualifiers: Diabetes mellitus type: type 2 (3) Obesity Current Visit: Yes Status: Chronic Plan: LOST WEIGHT SINCE GOT SICK. (4) Heart failure Current Visit: No Status: Acute Plan: DR MAURICIO CONSULTED HOPEFULLY CREATININE DOES NOT GET WORSE. PROGNOSIS IS GUARDED ESPECIALLY WHEN RENAL FUNCTION GETS WORSE. Qualifiers: Heart failure type: diastolic (5) Stage 4 decubitus ulcer Current Visit: No Status: Chronic Plan: DR HERRERA IS MANAGING THIS OUTPATIENT. Qualifiers: Pressure injury location: sacral region Qualified Code(s): L89.154 - Pressure ulcer of sacral region, stage 4 (6) Renal dysfunction Current Visit: Yes Status: Acute Plan: CLINICALLY FLUID OVERLOAD WILL FU CREAT ON DAILY LASIX CHECK SONOGRAM RULE OUT PVR. - Advance Directives Does patient have a Living Will: No Does patient have a Durable POA for Healthcare: No
--- NOTE | 2018-03-01 10:22 | EKG ---
Test Date: 2018-03-01 Test Time: 01:02:44 Dietary Internship: AYESHA MEASUREMENT RESULTS: Intervals: Rate: 73 [place]: QRSD: 78 QT: 418 QTc: 460 [place]: P: [place]: QRS: 60 T: 52 INTERPRETIVE STATEMENTS: Atrial fibrillation Low voltage QRS Cannot rule out Anteroseptal infarct, age undetermined Abnormal ECG Compared to ECG 12/21/2017 22:12:22 No significant changes Electronically Signed On 03-01-18 10:21:14 CDT by Vazquez Santos
[2018-03-01] MEDS ORDERED: INFLUENZA VACCINE (for 3y+) 0.5 ML DOSE IMVAC ONE (11:00)
[2018-03-01] MEDS ORDERED: PNEUMOCOCCAL VACCINE 0.5 ML IMVAC ONE (11:00)
--- NOTE | 2018-03-01 11:50 | RAD REPORT ---
EXAM DESCRIPTION: RAD - Chest Single View - 03/01/2018 1:37 am CLINICAL HISTORY: Chest pain;Dyspnea Chest pain. COMPARISON: Chest Single View dated 12/21/2017; Chest Pa And Lat (2 Views) dated 01/20/2017; Chest Sin gle View dated 06/25/2016; Chest Pa And Lat (2 Views) dated 06/24/2016 FINDINGS: Portable technique limits examination quality. Mild to moderate bilateral pulmonary opacities are present. The heart is prominent changes of a prior CABG. No displaced fractures. IMPRESSION: Mild to moderate CHF versus volume overload pattern.
[2018-03-01 12:53] VITALS: BMI 32.5
--- NOTE | 2018-03-01 13:23 | RAD REPORT ---
EXAM DESCRIPTION: US - Urinary Bladder - 03/01/2018 1:13 pm CLINICAL HISTORY: urinary retention COMPARISON: No comparisons TECHNIQUE: Real-time sonographic evaluation of the urinary bladder with pre and postvoid volume topher urements was performed. FINDINGS: Neither kidney was well imaged due to bowel gas. Urinary bladder shows no evidence ureterocele or bladder mass. Prevoid bladder volume 256 mL. Postvoid bladder volume 18 mL. IMPRESSION: Minimal postvoid residual.
--- NOTE | 2018-03-01 13:23 | RAD REPORT ---
EXAM DESCRIPTION: US - Abdomen Exam Complete - 03/01/2018 1:13 pm CLINICAL HISTORY: Abdominal pain. PAIN IN ABDOMEN COMPARISON: <Comparisons> FINDINGS: The liver is normal in size, shape and echotexture. No focal liver lesions or intrahepatic biliary dilatation is seen. The gallbladder demonstrates no gallstones, pericholecystic fluid or gallbladder wall thickening. Co mmon bile duct is normal in caliber measuring 4 mm. Both kidneys are normal in size, shape and echotexture. No hydronephrosis, focal lesion of concern or perinephric fluid. The spleen is normal in size measuring 12 cm. The pancreas and aorta are obscured by bowel gas. The visualized aspects of the IVC are grossly normal. IMPRESSION: Unremarkable study except for limited assessment of the pancreas and aorta due to bowel gas.
[2018-03-01] MEDS: RIVAROXABAN 15 MG TABLET PO SCH (17:54)
[2018-03-01] MEDS: PIPER/TAZO/NS 3.375gm 3.375 GM/100 ML BAG IVPB SCH (17:54)
[2018-03-01] MEDS: ASCORBIC ACID 500 MG TABLET PO SCH (21:49)
[2018-03-01] MEDS: MAGNESIUM OXIDE 400 MG TAB PO SCH (21:49)
[2018-03-01] MEDS: ATORVASTATIN 40 MG TAB PO SCH (21:49)
[2018-03-02] MEDS: PIPER/TAZO/NS 3.375gm 3.375 GM/100 ML BAG IVPB SCH ×3 (00:11→16:43)
[2018-03-02 05:19] LABS: Absolute Monocytes 0.6 K/uL (0.1-1.3); Absolute Neutrophil 5.1 K/uL (1.8-8.0); Basophils % 0.6 % (0-1.3); Eosinophils % 1.8 % (0-4.4); MCV 84.8 fL (80-100); MPV 9.2 fL (7.6-11.3); Monocytes % 8.8 % (3.3-12.3); RBC Red Blood Cell Count 3.66 M/uL (4.33-5.43)
[2018-03-02 05:44] LABS: Potassium 3.9 mmol/L (3.5-5.1)
[2018-03-02] MEDS ORDERED: PNEUMOCOCCAL VACCINE 0.5 ML IMVAC ONE (06:00)
[2018-03-02] MEDS ORDERED: INFLUENZA VACCINE (for 3y+) 0.5 ML DOSE IMVAC ONE (06:00)
[2018-03-02] MEDS ORDERED: PANTOPRAZOLE 40MG TABLET PO SCH (07:30)
[2018-03-02] MEDS ORDERED: ESCITALOPRAM 20 MG TAB PO SCH (09:00)
[2018-03-02] MEDS ORDERED: ALLOPURINOL 100 MG TAB PO SCH (09:00)
[2018-03-02] MEDS ORDERED: ZINC SULFATE 220 MG CAP PO SCH (09:00)
[2018-03-02] MEDS ORDERED: AMIODARONE HCL 200 MG TAB PO SCH (09:00)
[2018-03-02] MEDS ORDERED: FOLIC ACID 1 MG TABLET PO SCH (09:00)
--- NOTE | 2018-03-02 10:08 | RAD REPORT ---
EXAM DESCRIPTION: RAD - Chest Single View - 03/02/2018 9:28 am CLINICAL HISTORY: dyspnea Chest pain. COMPARISON: Chest Single View dated 03/01/2018; Chest Single View dated 12/21/2017; Chest Pa And Lat ( 2 Views) dated 01/20/2017; Chest Single View dated 06/25/2016 FINDINGS: Portable technique limits examination quality. Mild interstitial pulmonary edema seen. The heart is moderately enlarged in size with changes of a pr ior CABG noted. No displaced fractures.Sternotomy wires present. IMPRESSION: Mild CHF versus volume overload pattern.
[2018-03-02] MEDS: MAGNESIUM OXIDE 400 MG TAB PO SCH ×2 (10:55→21:29)
[2018-03-02] MEDS: ASCORBIC ACID 500 MG TABLET PO SCH ×2 (10:55→21:30)
[2018-03-02] MEDS: FUROSEMIDE 40 MG/4 ML VIAL IV SCH ×2 (10:55→16:43)
--- NOTE | 2018-03-02 15:56 | CON ---
CARDIOLOGY CONSULT Chief Complaint: Dyspnea. History Of Present Illness: Mr. Pacheco is a gentleman who had bypass surgery about 5 or 6 months ag o. Since then, he has had a very difficult time recovering his morbidly obese before he lost 70 poun ds, but still remains obese at 240 pounds. He is in chronic atrial fibrillation, bypass itself went well. He has good coronary circulation now, not having angina, but he has wounds that will not heal and he goes into heart failure very easily. He and his have a very hard time following a low-so dium diet. They recently had chicken and dumplings, in fact just a few hours before having to come t o the hospital, and that is what they ate. They are aware that it is very high sodium food. His wif gladys stated that they did not know how to do better than that. He has a normal preserved ejection fract ion at least as recently as November of this year, it was 53%. His outpatient medications have been; Lipitor 40, vitamin C, amiodarone, allopurinol, Lexapro, magnes ium oxide, folic acid, Protonix, zinc sulfate, Xarelto 15, and furosemide 40. He was given instructions and his was given instructions to weigh him daily and call us if his w eight goes up. His weight went up 1-1/2 pounds one day, 3 pounds the next, and there was no adjustme nt in the Lasix and there was no phone call to us. When he came to the hospital, he had marked inter stitial edema. He has had a very remarkable diuresis and he is breathing much better now. Laboratory Data: Reveals a hemoglobin of 10.2; white cell count 7000; creatinine 1.7, on admission i t was 1.8; blood sugars 111-141. N-terminal proBNP is 10,470. C-reactive protein is elevated. Proc alcitonin is low. Troponin is 0.18 and 0.25. Impression: The patient had congestive heart failure from high sodium intake, inadequate adjustment to the higher sodium intake, resulting pulmonary edema. I do not think this represents an acute leora nary syndrome. I think he should probably have diuresis another day. We will look at an echocardiog renee again. He is getting antibiotics as well, although I do not really think this is pneumonia. He does have a wound from his surgery that is still open. A wound VAC is in place. I think he could pr obably resume outpatient care after another few pounds of diuresis. MAGY/GERMÁN Voice ID: [id number] Report ID: [id number]
[2018-03-02] MEDS: RIVAROXABAN 15 MG TABLET PO SCH (16:46)
[2018-03-02] MEDS ORDERED: ACETIC ACID 0.25% IRRIG IRR SCH (17:00)
--- NOTE | 2018-03-02 17:50 | P.PN ---
Subjective Date of Service: 03/02/18 Chief Complaint: DYSPNEA AND CHEST PAIN Subjective: Improving MR. ELAINE IS OBESE GM WITH DM, DJD, EDEMA, VARICOSITY, CAD, AND LARGE BEDSORE. HE HAS IMPROVED VERY WELL. HE IS STABLE FOR DC. HIS ALWAYS HAS LOT OF ANXIETY. PER DR COHEN HE WILL STAY ONE MORE DAY. Review of Systems 10-point ROS is otherwise unremarkable Physical Examination - Vital Signs Temperature: 98.5 F Blood Pressure: 133/64 Pulse: 69 Respirations: 18 Pulse Ox (%): 96 - Physical Exam General: Alert, Mild distress, Obese HEENT: Atraumatic, PERRLA, EOMI Neck: Supple, JVD not distended Respiratory: Clear to auscultation bilaterally, Normal air movement Cardiovascular: Abnormal S1 S2 Gastrointestinal: Normal bowel sounds, No tenderness Musculoskeletal: No tenderness Integumentary: Pressure ulcer (LARGE DECUBITUS. DR. SHERIFF.) Neurological: Normal speech, Normal tone, Normal affect Lymphatics: No axilla or inguinal lymphadenopathy - Studies Medications List Reviewed: Yes Assessment And Plan - Current Problems (Diagnosis) (1) Bacterial pneumonia Onset Date: 03/02/18 Current Visit: Yes Status: Acute Plan: IV ZOSYN NOT CLEAR ABOUT PNEUMONIA BUT LACTATE AND CRP ARE HIGH. RESUME ABX. CXR SHOWS MORE FLUID OVERLAOD THAN PNEUMONIA OFFICIAL REPORT PENDING. NO COUGH,NO SPUTUM, NO FEVER. WBC IS MILD HIGH. PROCALCITONIN NEGATIVE. CRP CAN BE HIGH FROM MANY ISSUES INCLUDING ULCER ETC. (2) Diabetes Onset Date: 03/02/18 Current Visit: Yes Status: Chronic Plan: BETTER AFTER HE LOST WEIGHT. HE IS DECONDITIONED FROM MORBID OBESITY AND NOW IS SUFFERING FROM CONSEQUENCES. Qualifiers: Diabetes mellitus type: type 2 (3) Obesity Onset Date: 03/02/18 Current Visit: Yes Status: Chronic Plan: LOST WEIGHT SINCE GOT SICK. (4) Heart failure Onset Date: 03/02/18 Current Visit: Yes Status: Acute Plan: DR MAURICIO CONSULTED HOPEFULLY CREATININE DOES NOT GET WORSE. PROGNOSIS IS GUARDED ESPECIALLY WHEN RENAL FUNCTION GETS WORSE. Qualifiers: Heart failure type: diastolic (5) Stage 4 decubitus ulcer Onset Date: 03/02/18 Current Visit: Yes Status: Chronic Plan: DR HERRERA IS MANAGING THIS OUTPATIENT. Qualifiers: Pressure injury location: sacral region Qualified Code(s): L89.154 - Pressure ulcer of sacral region, stage 4 (6) Renal dysfunction Onset Date: 03/02/18 Current Visit: Yes Status: Acute Plan: CLINICALLY FLUID OVERLOAD WILL FU CREAT ON DAILY LASIX CHECK SONOGRAM RULE OUT PVR.
[2018-03-02] MEDS: ATORVASTATIN 40 MG TAB PO SCH (21:29)
[2018-03-02 22:34] VITALS: O2SAT 96
[2018-03-03] MEDS: PIPER/TAZO/NS 3.375gm 3.375 GM/100 ML BAG IVPB SCH (01:22)
[2018-03-03 08:42] VITALS: BP 122/71; TEMP 97.7
--- NOTE | 2018-03-03 12:34 | P.DS ---
Admission Date: 03/01/18 Discharge Date: 03/03/18 Disposition: ROUTINE DISCHARGE Discharge Condition: FAIR Reason for Admission: DYSPNEA AND CHEST PAIN - Problems (1) Bacterial pneumonia Onset Date: 03/02/18 Status: Acute (2) Diabetes Onset Date: 03/02/18 Status: Chronic Qualifiers: Diabetes mellitus type: type 2 (3) Obesity Onset Date: 03/02/18 Status: Chronic (4) Heart failure Onset Date: 03/02/18 Status: Acute Qualifiers: Heart failure type: diastolic (5) Stage 4 decubitus ulcer Onset Date: 03/02/18 Status: Chronic Qualifiers: Pressure injury location: sacral region Qualified Code(s): L89.154 - Pressure ulcer of sacral region, stage 4 (6) Renal dysfunction Onset Date: 03/02/18 Status: Acute Brief History of Present Illness: IS AN OBESE DIABETIC WITH LARGE DECUBITUS ULCER SEEN AT [facility]. ULCER IS FROM LONG STAY HE HAD AT [facility] FOR DIVERTICULITIS, ABSCESS, COLOSTOMY ETC. CURRENTLY HE IS ATHOME WITH AND HAS HOSPITAL BED. AFTER A HOME MADE HAMBURGER WITH [employer] HE HAD CHEST PAIN FOR ABOUT TWO HOURS AND DYSPNEA. HE NOW IS LOT MORE COMFORTABLE BUT STILL SOMEWHAT DYSPNEIC. HE HAS LOST ABOUT 70 LBS SINCE HE GOT SICK MONTHS AGO. MR ELAINE HAS NO DYSPNEA, NO CHILLS, NO FEVER. HE IS STABLE SINCE YESTERDAY. HE WILL TAKE HIGHER DOSE OF LASIX, SPIRONOLACTONE AND FEW DAYS OF ABX FOR POSSIBLE INFECTION. HE HAS LARGE BEDSORE THAT IS TAKEN CARE BY DR. HERRERA. IS AWARE OF CHANGES OF MEDS. Vital Signs/Physical Exam: Temp Pulse Resp BP Pulse Ox 97.7 F 71 16 122/71 93 03/03/18 08:00 03/03/18 08:00 03/03/18 08:00 03/03/18 08:00 03/03/18 08:00 Laboratory Data at Discharge: WBC 7.0 K/uL (4.3-10.9) D 03/02/18 04:27 Hgb 10.2 g/dL (13.6-17.9) L 03/02/18 04:27 Hct 31.0 % (39.6-49.0) L 03/02/18 04:27 Plt Count 275 K/uL (152-406) 03/02/18 04:27 PT 37.0 SECONDS (9.5-12.5) H 03/01/18 01:22 INR 3.10 03/01/18 01:22 Sodium 141 mmol/L (136-145) 03/02/18 04:27 Potassium 3.9 mmol/L (3.5-5.1) 03/02/18 04:27 BUN 24 mg/dL (7-18) H 03/02/18 04:27 Creatinine 1.70 mg/dL (0.55-1.3) H 03/02/18 04:27 Glucose 96 mg/dL (74-106) 03/02/18 04:27 Magnesium 2.1 mg/dL (1.8-2.4) 03/01/18 01:22 Total Bilirubin 0.3 mg/dL (0.2-1.0) 03/01/18 01:22 AST 11 U/L (15-37) L 03/01/18 01:22 ALT 16 U/L (12-78) 03/01/18 01:22 Alkaline Phosphatase 85 U/L (45-117) 03/01/18 01:22 Troponin I 0.25 ng/mL (0.0-0.045) H 03/01/18 10:36 Home Medications: Allopurinol [Zyloprim*] 100 mg PO DAILY 03/01/18 Amiodarone HCl [Cordarone*] 200 mg PO DAILY 03/01/18 Ascorbic Acid 500 mg PO BID 03/01/18 Atorvastatin Calcium 40 mg PO BEDTIME 03/01/18 Escitalopram Oxalate [Lexapro] 10 mg PO DAILY 03/01/18 Folic Acid 1 mg PO DAILY 03/01/18 Magnesium Oxide [Magnesium] 800 mg PO DAILY 03/01/18 Pantoprazole [Protonix Tab*] 40 mg PO DAILY 03/01/18 Rivaroxaban [Xarelto*] 15 mg PO DAILY 03/01/18 Zinc Sulfate [Zinc Sulfate*] 220 mg PO DAILY 03/01/18 Amox/Clavulanate [Augmentin 875-125 Tab] 875 mg PO BID #14 tab 03/02/18 Furosemide 80 mg PO DAILY #90 tablet 03/02/18 Spironolactone 25 mg PO DAILY #90 tablet 03/02/18 New Medications: Amox/Clavulanate [Augmentin 875-125 Tab] 875 mg PO BID #14 tab Furosemide 80 mg PO DAILY #90 tablet Spironolactone 25 mg PO DAILY #90 tablet Followup: Dylon Omer MD [ACTIVE - CAN ADMIT] - 1-2 Weeks (Call for appointment.)
--- NOTE | 2018-03-03 14:14 | PN ---
Mr. Pacheco seems to be breathing better. I think he has had enough diuresis and we should regard hi s weight today is a good dry weight. I do not believe the nurses are actually doing daily weights on him. If so, all that record is 240 pounds exactly for 2 consecutive days. I think the and the patient both understand the need for notifying us when his weight goes up and controlling sodium int [place]. At this point, I think he is stable enough to be discharged home. DEEPIKA Voice ID: [id number] Report ID: [id number]
== END 2018-03-03 11:06 | disposition home or self-care (01) | DRG 291 ==
LOC: ER 00:47 → 2ND 08:13
PROVIDERS: ADMIT Internal Medicine; ATTEND Internal Medicine
DX: I11.0 Hypertensive heart disease with heart failure (principal); L89.154 Pressure ulcer of sacral region, stage 4; I50.31 Acute diastolic (congestive) heart failure; J15.9 Unspecified bacterial pneumonia; E11.622 Type 2 diabetes mellitus with other skin ulcer; E66.01 Morbid (severe) obesity due to excess calories; I25.10 Atherosclerotic heart disease of native coronary artery without angina pectoris; M19.90 Unspecified osteoarthritis, unspecified site; E78.00 Pure hypercholesterolemia, unspecified; I25.2 Old myocardial infarction; Z95.1 Presence of aortocoronary bypass graft; M10.9 Gout, unspecified; Z87.891 Personal history of nicotine dependence; Z86.73 Personal history of transient ischemic attack (TIA), and cerebral infarction without residual deficits; Z93.3 Colostomy status; I48.2 Chronic atrial fibrillation
CPT/HCPCS: 36415; 71045; 76700; 76857; 80048; 80076; 82805; 82962; 83605; 83735; 83880; 84145; 84484; 85025; 85610; 86140; 87040; 90670; 93005; 94760; 96365; 96366; 97163; 99285; G0008; G0009; J2543; Q2035

== ENCOUNTER 2018-04-14 13:38 | Observation (INO) | payer OTHER ==
--- OUTSIDE RECORDS SUMMARY | 2018-04-14 13:52 | XMS REPORT ---
:1945 [facility] [address] [place] [address] [address] [place] [address] Care Team Providers Name Role Phone JOSE [...] (BEAKER) (test 128 mg/dL 70-110 TESTED AT [facility] [address] [place] [address] mymz=6980) [facility] [address] POCT-GLUCOSE [id number] 08:45:00 Test Item Value Reference Range Comments POC-GLUCOSE METER (BEAKER) 116 mg/dL 70-110 TESTED AT [address] (test toaa=7351) [facility] [address] BLOOD [id number] 08:27:00 Test Item Value Reference Range Comments CULTURE (BEAKER) From Aerobic Bottle Only (test cukc=9117) Coagulase negative Staphylococcus GRAM STAIN RESULT From aerobic bottle (BEAKER) (test only: gram positive qtsx=9865) cocci in clusters Coagulase Negative Staphylococcus Species [...] required. This sample was tested at the [facility] Clinical Microbiology Laboratory using the [employer] Blood Culture ID Panel.This test is FDA cleared for in vitro diagnostic use and has been verified and approved [facility]. Reference Range: Not DetectedPOCT-GLUCOSE [id number] 20:41:00 Test Item Value Reference Range Comments POC-GLUCOSE METER (BEAKER) 153 mg/dL 70-110 TESTED AT [address] (test xukw=4464) [place] [id number] POCT-GLUCOSE [id number] 18:53:00 Test Item Value Reference Range Comments POC-GLUCOSE METER (BEAKER) 138 mg/dL 70-110 TESTED AT [address] (test nihf=7292) [facility] [address] POCT-GLUCOSE [id number] 12:27:00 Test Item Value Reference Range Comments POC-GLUCOSE METER (BEAKER) 147 mg/dL 70-110 TESTED AT [address] (test hgem=3577) [place] [id number] POCT-GLUCOSE [id number] 08:21:00 Test Item Value Reference Range Comments POC-GLUCOSE METER (BEAKER) 106 mg/dL 70-110 TESTED AT [address] (test xkgp=0326) [place] [id number] POCT-GLUCOSE [id number] 22:43:00 Test Item Value Reference Range Comments POC-GLUCOSE METER (BEAKER) 160 mg/dL 70-110 TESTED AT [address] (test cpga=7112) [facility] [address] POCT-GLUCOSE [id number] 17:22:00 Test Item Value Reference Range Comments POC-GLUCOSE METER (BEAKER) 139 mg/dL 70-110 TESTED AT [address] (test zinz=9068) [facility] [address] POCT-GLUCOSE [id number] 16:09:00 Test Item Value Reference Range Comments POC-GLUCOSE METER (BEAKER) 123 mg/dL 70-110 TESTED AT [address] (test ivog=6875) [place] [id number] POCT-GLUCOSE [id number] 21:33:00 Test Item Value Reference Range Comments POC-GLUCOSE METER (BEAKER) 144 mg/dL 70-110 TESTED AT [address] (test vmqh=2274) [facility] [address] POCT-GLUCOSE [id number] 17:38:00 Test Item Value Reference Range Comments POC-GLUCOSE METER (BEAKER) 126 mg/dL 70-110 TESTED AT [address] (test ckor=5317) [place] [address] POCT-GLUCOSE [id number] 11:59:00 Test Item Value Reference Range Comments POC-GLUCOSE METER (BEAKER) 112 mg/dL 70-110 TESTED AT [address] (test uojp=3513) [place] [address] WOUND CULTURE + GRAM [id number] 08:12:00 Test Item Value Reference Range Comments CULTURE (BEAKER) (test STAPHYLOCOCCUS AUREUS 2+ Staphylococcus kljj=8384) aureus Clindamycin (test code=10) Erythromycin (test code=4) Linezolid (test code=40) Nitrofurantoin (test code=23) Oxacillin (test code=14) Rifampin (test code=43) Tetracycline (test code=2) Trimethoprim + Sulfamethoxazole (test code=47) Vancomycin (test code=13) GRAM STAIN RESULT <1+ WBCs (BEAKER) (test xogg=8955) GRAM STAIN RESULT <1+ gram positive (BEAKER) (test cocci in chains and hluw=646626) pairs 3+ Skin floraMISCELLANEOUS LAB [id number] 07:32:00 Test Item Value Reference Range Comments SCAN RESULT (test bzzk=[id number]) Result comments: Coagulase Negative Staphylococcus Species (CoNS) [...] required. This sample was tested at the [facility] Clinical Microbiology Laboratory using the [employer] Blood Culture ID Panel. This test is FDA cleared for in vitro diagnostic use and has been verified and approved by the [facility] Clinical Microbiology laboratory for clinical use. Reference Range: Not DetectedPOCT-GLUCOSE [id number] 07:31:00 Test Item Value Reference Range Comments POC-GLUCOSE METER (BEAKER) 107 mg/dL 70-110 TESTED AT [address] (test igwc=6201) [place] [address] POCT-GLUCOSE [id number] 23:08:00 Test Item Value Reference Range Comments POC-GLUCOSE METER (BEAKER) 106 mg/dL 70-110 TESTED AT [address] (test zfvq=1900) [place] [id number] POCT-GLUCOSE [id number] 16:57:00 Test Item Value Reference Range Comments POC-GLUCOSE METER (BEAKER) 140 mg/dL 70-110 TESTED AT [address] (test zpqu=0411) [place] [address] POCT-GLUCOSE [id number] 12:19:00 Test Item Value Reference Range Comments POC-GLUCOSE METER (BEAKER) 114 mg/dL 70-110 TESTED AT [address] (test hjhp=7793) [place] [address] POCT-GLUCOSE [id number] 08:40:00 Test Item Value Reference Range Comments POC-GLUCOSE METER (BEAKER) 117 mg/dL 70-110 TESTED AT [address] (test cuab=7092) [place] [address] MR, PELVIS, [id number] 07:23:00FINAL REPORT MRI pelvis without and with [...] No evidence of osteomyelitis. Signed: Robert Laughlin [facility] Verified Date/Time: 11/30/2017 07:23 :22 Reading Location: [facility] C013X [facility] Consult Reading Room POCT-GLUCOSE [id number] 22:33:00 Test Item Value Reference Range Comments POC-GLUCOSE METER (BEAKER) 137 mg/dL 70-110 TESTED AT [address] (test wznr=3068) [place] [id number] POCT-GLUCOSE [id number] 16:49:00 Test Item Value Reference Range Comments POC-GLUCOSE METER (BEAKER) 118 mg/dL 70-110 TESTED AT [address] (test nmnc=6538) [place] [address] POCT-GLUCOSE [id number] 12:37:00 Test Item Value Reference Range Comments POC-GLUCOSE METER (BEAKER) 146 mg/dL 70-110 TESTED AT [address] (test ztgp=3423) [place] [address] POCT-GLUCOSE [id number] 08:46:00 Test Item Value Reference Range Comments POC-GLUCOSE METER (BEAKER) 109 mg/dL 70-110 TESTED AT [address] (test jbfb=3475) [place] [address] [id number] 05:26:00 Test Item Value Reference Range Comments PREALBUMIN (BEAKER) (test hjii=473) 15 mg/dL 14-45 POCT-GLUCOSE [id number] 22:08:00 Test Item Value Reference Range Comments POC-GLUCOSE METER (BEAKER) 120 mg/dL 70-110 TESTED AT [address] (test dccr=9432) [place] [address] RAD, CHEST, 1 VIEW, NON [id number] 22:05:00Reason for exam:->Post PICC line insertion RUE [...] MDReport Verified Date/Time: 11/28/2017 22:05:39 Reading Location: [address] Reading Room POCT- GLUCOSE [id number] 17:58:00 Test Item Value Reference Range Comments POC-GLUCOSE METER (BEAKER) 181 mg/dL 70-110 TESTED AT [facility] [address] [facility] (test pnll=0643) [facility] [address] BASIC METABOLIC [id number] 14:55:00 Test Item Value Reference Range Comments SODIUM (BEAKER) (test 138 meq/L 136-145 atim=437) POTASSIUM (BEAKER) (test 4.2 meq/L 3.5-5.1 ohyh=520) CHLORIDE (BEAKER) (test 106 meq/L 98-107 bnkn=466) CO2 (BEAKER) (test 26 meq/L 22-29 fnce=028) BLOOD UREA NITROGEN 21 mg/dL 7-21 (BEAKER) (test bymy=120) CREATININE (BEAKER) (test 1.18 mg/dL 0.57-1.25 fabd=591) GLUCOSE RANDOM (BEAKER) 108 mg/dL 70-105 (test xtds=138) CALCIUM (BEAKER) (test 9.3 mg/dL 8.4-10.2 lpqm=487) EGFR (BEAKER) (test 60 mL/min/1.73 sq m ESTIMATED GFR IS NOT hzya=8349) ACCURATE CREATININE CLEARANCE IN PREDICTING GLOMERULAR FILTRATION RATE. ESTIMATED GFR IS NOT APPLICABLE FOR DIALYSIS PATIENTS. CBC W/PLT COUNT & AUTO [id number] 14:29:00 Test Item Value Reference Range Comments WHITE BLOOD CELL COUNT (BEAKER) (test shmu=891) 8.5 K/ L 3.5-10.5 RED BLOOD CELL COUNT (BEAKER) (test okrr=340) 4.49 M/ L 4.63-6.08 HEMOGLOBIN (BEAKER) (test rrwr=123) 11.6 GM/DL 13.7-17.5 HEMATOCRIT (BEAKER) (test koli=410) 38.7 % 40.1-51.0 MEAN CORPUSCULAR VOLUME (BEAKER) (test ptkf=258) 86.2 fL 79.0-92.2 MEAN CORPUSCULAR HEMOGLOBIN (BEAKER) (test 25.8 pg 25.7-32.2 ybvm=248) MEAN CORPUSCULAR HEMOGLOBIN CONC (BEAKER) (test 30.0 GM/DL 32.3-36.5 asdu=589) RED CELL DISTRIBUTION WIDTH (BEAKER) (test 19.9 % 11.6-14.4 nyof=970) PLATELET COUNT (BEAKER) (test rhzi=554) 395 K/CU MM 150-450 MEAN PLATELET VOLUME (BEAKER) (test ydlr=112) 11.0 fL 9.4-12.4 NUCLEATED RED BLOOD CELLS (BEAKER) (test 0 /100 WBC 0-0 ruhh=294) NEUTROPHILS RELATIVE PERCENT (BEAKER) (test 71 % iabf=699) LYMPHOCYTES RELATIVE PERCENT (BEAKER) (test 20 % thsb=902) MONOCYTES RELATIVE PERCENT (BEAKER) (test 6 % wbkg=307) EOSINOPHILS RELATIVE PERCENT (BEAKER) (test 1 % hwnj=772) BASOPHILS RELATIVE PERCENT (BEAKER) (test 1 % rscj=550) NEUTROPHILS ABSOLUTE COUNT (BEAKER) (test 6.05 K/ L 1.78-5.38 iqbg=514) LYMPHOCYTES ABSOLUTE COUNT (BEAKER) (test 1.73 K/ L 1.32-3.57 vdaq=605) MONOCYTES ABSOLUTE COUNT (BEAKER) (test 0.52 K/ L 0.30-0.82 wfvi=937) EOSINOPHILS ABSOLUTE COUNT (BEAKER) (test 0.12 K/ L 0.04-0.54 qbum=343) BASOPHILS ABSOLUTE COUNT (BEAKER) (test 0.05 K/ L 0.01-0.08 vhex=197) IMMATURE GRANULOCYTES-RELATIVE PERCENT (BEAKER) 0 % 0-1 (test rtie=2810) AFB CULTURE + [id number] 09:43:00 Test Item Value Reference Range Comments CULTURE (BEAKER) (test No acid-fast bacilli isolated dgnm=4568) in 42 days AFB SMEAR (BEAKER) (test No acid fast bacilli seen jryq=327) AFB CULTURE + [id number] 09:43:00 Test Item Value Reference Range Comments CULTURE (BEAKER) (test No acid-fast bacilli isolated ekzj=5282) in 42 days AFB SMEAR (BEAKER) (test No acid fast bacilli seen eogh=996) POCT-GLUCOSE [id number] 12:56:00 Test Item Value Reference Range Comments POC-GLUCOSE METER (BEAKER) 119 mg/dL 70-110 TESTED AT [address] (test edgt=5924) [facility] [address] POCT-GLUCOSE [id number] 08:17:00 Test Item Value Reference Range Comments POC-GLUCOSE METER (BEAKER) 111 mg/dL 70-110 TESTED AT [address] (test bgip=0859) [facility] [address] POCT-GLUCOSE [id number] 21:59:00 Test Item Value Reference Range Comments POC-GLUCOSE METER (BEAKER) 130 mg/dL 70-110 TESTED AT [address] (test xdfm=7225) [place] [id number] POCT-GLUCOSE [id number] 16:59:00 Test Item Value Reference Range Comments POC-GLUCOSE METER (BEAKER) 120 mg/dL 70-110 TESTED AT [address] (test qhht=8646) [facility] [address] POCT-GLUCOSE [id number] 11:30:00 Test Item Value Reference Range Comments POC-GLUCOSE METER (BEAKER) 125 mg/dL 70-110 TESTED AT [address] (test vhap=0654) [facility] [address] POCT-GLUCOSE [id number] 07:44:00 Test Item Value Reference Range Comments POC-GLUCOSE METER (BEAKER) 104 mg/dL 70-110 TESTED AT [address] (test kuya=1067) [facility] [address] BASIC METABOLIC [id number] 06:15:00 Test Item Value Reference Range Comments SODIUM (BEAKER) (test 140 meq/L 136-145 rloy=394) POTASSIUM (BEAKER) (test 3.7 meq/L 3.5-5.1 shvv=877) CHLORIDE (BEAKER) (test 114 meq/L 98-107 tdft=927) CO2 (BEAKER) (test 16 meq/L 22-29 dqwu=486) BLOOD UREA NITROGEN 14 mg/dL 7-21 (BEAKER) (test tqui=682) CREATININE (BEAKER) (test 0.85 mg/dL 0.57-1.25 klwm=538) GLUCOSE RANDOM (BEAKER) 83 mg/dL 70-105 (test zadh=315) CALCIUM (BEAKER) (test 7.9 mg/dL 8.4-10.2 rwda=396) EGFR (BEAKER) (test 88 mL/min/1.73 sq m ESTIMATED GFR IS NOT taaw=4492) ACCURATE CREATININE CLEARANCE IN PREDICTING GLOMERULAR FILTRATION RATE. ESTIMATED GFR IS NOT APPLICABLE FOR DIALYSIS PATIENTS. [id number] 06:05:00 Test Item Value Reference Range Comments MAGNESIUM (BEAKER) (test ttiq=795) 1.9 mg/dL 1.6-2.6 CBC W/PLT COUNT & AUTO [id number] 05:32:00 Test Item Value Reference Range Comments WHITE BLOOD CELL COUNT (BEAKER) (test xyme=305) 8.9 K/ L 3.5-10.5 RED BLOOD CELL COUNT (BEAKER) (test zclz=485) 4.06 M/ L 4.63-6.08 HEMOGLOBIN (BEAKER) (test oliv=151) 10.9 GM/DL 13.7-17.5 HEMATOCRIT (BEAKER) (test nzbf=243) 37.1 % 40.1-51.0 MEAN CORPUSCULAR VOLUME (BEAKER) (test rqpc=086) 91.4 fL 79.0-92.2 MEAN CORPUSCULAR HEMOGLOBIN (BEAKER) (test 26.8 pg 25.7-32.2 lvym=555) MEAN CORPUSCULAR HEMOGLOBIN CONC (BEAKER) (test 29.4 GM/DL 32.3-36.5 iwqt=037) RED CELL DISTRIBUTION WIDTH (BEAKER) (test 19.6 % 11.6-14.4 jnkp=581) PLATELET COUNT (BEAKER) (test vepl=003) 392 K/CU MM 150-450 MEAN PLATELET VOLUME (BEAKER) (test ftec=502) 10.1 fL 9.4-12.4 NUCLEATED RED BLOOD CELLS (BEAKER) (test 0 /100 WBC 0-0 prty=547) NEUTROPHILS RELATIVE PERCENT (BEAKER) (test 70 % yhrm=558) LYMPHOCYTES RELATIVE PERCENT (BEAKER) (test 18 % dpns=914) MONOCYTES RELATIVE PERCENT (BEAKER) (test 8 % mltb=372) EOSINOPHILS RELATIVE PERCENT (BEAKER) (test 4 % phhx=751) BASOPHILS RELATIVE PERCENT (BEAKER) (test 1 % hsgd=016) NEUTROPHILS ABSOLUTE COUNT (BEAKER) (test 6.20 K/ L 1.78-5.38 eaqq=799) LYMPHOCYTES ABSOLUTE COUNT (BEAKER) (test 1.62 K/ L 1.32-3.57 ynpr=747) MONOCYTES ABSOLUTE COUNT (BEAKER) (test 0.70 K/ L 0.30-0.82 lvzr=196) EOSINOPHILS ABSOLUTE COUNT (BEAKER) (test 0.31 K/ L 0.04-0.54 jnge=761) BASOPHILS ABSOLUTE COUNT (BEAKER) (test 0.06 K/ L 0.01-0.08 dcic=807) IMMATURE GRANULOCYTES-RELATIVE PERCENT (BEAKER) 0 % 0-1 (test aali=8470) POCT-GLUCOSE [id number] 20:45:00 Test Item Value Reference Range Comments POC-GLUCOSE METER (BEAKER) 158 mg/dL 70-110 TESTED AT [address] (test fdki=2301) [place] [address] POCT-GLUCOSE [id number] 17:10:00 Test Item Value Reference Range Comments POC-GLUCOSE METER (BEAKER) 149 mg/dL 70-110 TESTED AT [address] (test otbn=7624) [place] [address] FUNGUS CULTURE + [id number] 16:32:00 Test Item Value Reference Range Comments CULTURE (BEAKER) (test No fungus isolated in 28 days bvvz=1598) FUNGUS SMEAR (BEAKER) (test No fungi seen offc=6250) FUNGUS CULTURE + [id number] 16:32:00 Test Item Value Reference Range Comments CULTURE (BEAKER) (test No fungus isolated in 28 days hdou=5254) FUNGUS SMEAR (BEAKER) (test No fungi seen elqm=4352) POCT-GLUCOSE [id number] 11:59:00 Test Item Value Reference Range Comments POC-GLUCOSE METER (BEAKER) 135 mg/dL 70-110 TESTED AT [address] (test hpgn=1540) [place] [address] POCT-GLUCOSE [id number] 08:05:00 Test Item Value Reference Range Comments POC-GLUCOSE METER (BEAKER) 167 mg/dL 70-110 TESTED AT [address] (test vfte=4729) [place] [address] BASIC METABOLIC [id number] 07:11:00 Test Item Value Reference Range Comments SODIUM (BEAKER) (test 139 meq/L 136-145 embl=306) POTASSIUM (BEAKER) (test 3.7 meq/L 3.5-5.1 yuya=776) CHLORIDE (BEAKER) (test 116 meq/L 98-107 sftz=514) CO2 (BEAKER) (test 18 meq/L 22-29 molx=949) BLOOD UREA NITROGEN 14 mg/dL 7-21 (BEAKER) (test wbqb=239) CREATININE (BEAKER) (test 0.84 mg/dL 0.57-1.25 hgdm=829) GLUCOSE RANDOM (BEAKER) 95 mg/dL 70-105 (test nqpo=610) CALCIUM (BEAKER) (test 7.7 mg/dL 8.4-10.2 gllm=036) EGFR (BEAKER) (test 89 mL/min/1.73 sq m ESTIMATED GFR IS NOT eqrk=4698) ACCURATE CREATININE CLEARANCE IN PREDICTING GLOMERULAR FILTRATION RATE. ESTIMATED GFR IS NOT APPLICABLE FOR DIALYSIS PATIENTS. [id number] 07:08:00 Test Item Value Reference Range Comments MAGNESIUM (BEAKER) (test gtrb=057) 1.6 mg/dL 1.6-2.6 POCT-GLUCOSE [id number] 21:06:00 Test Item Value Reference Range Comments POC-GLUCOSE METER (BEAKER) 166 mg/dL 70-110 TESTED AT [address] (test erga=6964) [place] [id number] POCT-GLUCOSE [id number] 17:25:00 Test Item Value Reference Range Comments POC-GLUCOSE METER (BEAKER) 149 mg/dL 70-110 TESTED AT [address] (test owut=4681) [place] [address] POCT-GLUCOSE [id number] 12:40:00 Test Item Value Reference Range Comments POC-GLUCOSE METER (BEAKER) 143 mg/dL 70-110 TESTED AT [address] (test sqtg=0110) [place] [address] POCT-GLUCOSE [id number] 08:32:00 Test Item Value Reference Range Comments POC-GLUCOSE METER (BEAKER) 99 mg/dL 70-110 TESTED AT [address] (test qcae=0917) [place] [address] [id number] 07:01:00 Test Item Value Reference Range Comments MAGNESIUM (BEAKER) (test 1.5 mg/dL 1.6-2.6 Specimen slightly hemolyzed rrft=877) BASIC METABOLIC [id number] 05:59:00 Test Item Value Reference Range Comments SODIUM (BEAKER) (test 140 meq/L 136-145 kslz=120) POTASSIUM (BEAKER) (test 3.9 meq/L 3.5-5.1 Specimen slightly kzso=486) hemolyzed CHLORIDE (BEAKER) (test 117 meq/L 98-107 isdl=055) CO2 (BEAKER) (test 15 meq/L 22-29 juwf=165) BLOOD UREA NITROGEN 15 mg/dL 7-21 (BEAKER) (test isca=900) CREATININE (BEAKER) (test 0.81 mg/dL 0.57-1.25 Specimen slightly qpcd=435) hemolyzed GLUCOSE RANDOM (BEAKER) 95 mg/dL 70-105 (test flie=289) CALCIUM (BEAKER) (test 7.6 mg/dL 8.4-10.2 viua=465) EGFR (BEAKER) (test 93 mL/min/1.73 sq m ESTIMATED GFR IS NOT vitv=5037) ACCURATE CREATININE CLEARANCE IN PREDICTING GLOMERULAR FILTRATION RATE. ESTIMATED GFR IS NOT APPLICABLE FOR DIALYSIS PATIENTS. CBC W/PLT COUNT & AUTO [id number] 05:12:00 Test Item Value Reference Range Comments WHITE BLOOD CELL COUNT (BEAKER) (test bmhe=631) 8.1 K/ L 3.5-10.5 RED BLOOD CELL COUNT (BEAKER) (test tuvr=843) 3.27 M/ L 4.63-6.08 HEMOGLOBIN (BEAKER) (test mckx=984) 8.8 GM/DL 13.7-17.5 HEMATOCRIT (BEAKER) (test xciz=291) 30.6 % 40.1-51.0 MEAN CORPUSCULAR VOLUME (BEAKER) (test qxhj=980) 93.6 fL 79.0-92.2 MEAN CORPUSCULAR HEMOGLOBIN (BEAKER) (test 26.9 pg 25.7-32.2 hksg=266) MEAN CORPUSCULAR HEMOGLOBIN CONC (BEAKER) (test 28.8 GM/DL 32.3-36.5 paaq=975) RED CELL DISTRIBUTION WIDTH (BEAKER) (test 19.8 % 11.6-14.4 prlh=391) PLATELET COUNT (BEAKER) (test cken=569) 370 K/CU MM 150-450 MEAN PLATELET VOLUME (BEAKER) (test mvxv=675) 10.5 fL 9.4-12.4 NUCLEATED RED BLOOD CELLS (BEAKER) (test 0 /100 WBC 0-0 vcin=331) NEUTROPHILS RELATIVE PERCENT (BEAKER) (test 67 % anqv=504) LYMPHOCYTES RELATIVE PERCENT (BEAKER) (test 19 % zwvj=992) MONOCYTES RELATIVE PERCENT (BEAKER) (test 9 % zrrg=404) EOSINOPHILS RELATIVE PERCENT (BEAKER) (test 4 % imxn=039) BASOPHILS RELATIVE PERCENT (BEAKER) (test 1 % sori=175) NEUTROPHILS ABSOLUTE COUNT (BEAKER) (test 5.46 K/ L 1.78-5.38 xkbo=158) LYMPHOCYTES ABSOLUTE COUNT (BEAKER) (test 1.51 K/ L 1.32-3.57 zzgc=656) MONOCYTES ABSOLUTE COUNT (BEAKER) (test 0.72 K/ L 0.30-0.82 clwz=823) EOSINOPHILS ABSOLUTE COUNT (BEAKER) (test 0.32 K/ L 0.04-0.54 ehgs=163) BASOPHILS ABSOLUTE COUNT (BEAKER) (test 0.07 K/ L 0.01-0.08 qpom=682) IMMATURE GRANULOCYTES-RELATIVE PERCENT (BEAKER) 1 % 0-1 (test aipd=0052) POCT-GLUCOSE [id number] 21:38:00 Test Item Value Reference Range Comments POC-GLUCOSE METER (BEAKER) 119 mg/dL 70-110 TESTED AT [address] (test yikl=1455) [facility] [address] POCT-GLUCOSE [id number] 17:02:00 Test Item Value Reference Range Comments POC-GLUCOSE METER (BEAKER) 150 mg/dL 70-110 TESTED AT [address] (test fcnp=7529) [facility] [address] POCT-GLUCOSE [id number] 12:18:00 Test Item Value Reference Range Comments POC-GLUCOSE METER (BEAKER) 143 mg/dL 70-110 TESTED AT [address] (test hoxo=0943) [facility] [address] POCT-GLUCOSE [id number] 10:33:00 Test Item Value Reference Range Comments POC-GLUCOSE METER (BEAKER) 184 mg/dL 70-110 TESTED AT [address] (test sauk=8680) [facility] [address] POCT-GLUCOSE [id number] 21:23:00 Test Item Value Reference Range Comments POC-GLUCOSE METER (BEAKER) 130 mg/dL 70-110 TESTED AT [address] (test bfmd=1384) [facility] [address] POCT-GLUCOSE [id number] 17:48:00 Test Item Value Reference Range Comments POC-GLUCOSE METER (BEAKER) 117 mg/dL 70-110 TESTED AT [address] (test rrsg=3577) [facility] [address] POCT-GLUCOSE [id number] 13:20:00 Test Item Value Reference Range Comments POC-GLUCOSE METER (BEAKER) 118 mg/dL 70-110 TESTED AT [address] (test xxmy=3004) [facility] [address] POCT-GLUCOSE [id number] 08:15:00 Test Item Value Reference Range Comments POC-GLUCOSE METER (BEAKER) 102 mg/dL 70-110 TESTED AT [address] (test vrjy=4065) [facility] [id number] BASIC METABOLIC [id number] 05:42:00 Test Item Value Reference Range Comments SODIUM (BEAKER) (test 139 meq/L 136-145 ufwr=695) POTASSIUM (BEAKER) (test 4.2 meq/L 3.5-5.1 vbuu=643) CHLORIDE (BEAKER) (test 114 meq/L 98-107 dlxe=157) CO2 (BEAKER) (test 17 meq/L 22-29 xksw=931) BLOOD UREA NITROGEN 17 mg/dL 7-21 (BEAKER) (test rrau=160) CREATININE (BEAKER) (test 0.90 mg/dL 0.57-1.25 iyna=447) GLUCOSE RANDOM (BEAKER) 91 mg/dL 70-105 (test dkdx=630) CALCIUM (BEAKER) (test 7.9 mg/dL 8.4-10.2 ryql=347) EGFR (BEAKER) (test 82 mL/min/1.73 sq m ESTIMATED GFR IS NOT gcdx=3227) ACCURATE CREATININE CLEARANCE IN PREDICTING GLOMERULAR FILTRATION RATE. ESTIMATED GFR IS NOT APPLICABLE FOR DIALYSIS PATIENTS. CBC W/PLT COUNT & AUTO [id number] 04:58:00 Test Item Value Reference Range Comments WHITE BLOOD CELL COUNT (BEAKER) (test qrgg=649) 8.2 K/ L 3.5-10.5 RED BLOOD CELL COUNT (BEAKER) (test gsxs=060) 3.31 M/ L 4.63-6.08 HEMOGLOBIN (BEAKER) (test rpnx=810) 9.1 GM/DL 13.7-17.5 HEMATOCRIT (BEAKER) (test swcs=820) 30.7 % 40.1-51.0 MEAN CORPUSCULAR VOLUME (BEAKER) (test tfug=998) 92.7 fL 79.0-92.2 MEAN CORPUSCULAR HEMOGLOBIN (BEAKER) (test 27.5 pg 25.7-32.2 ennu=599) MEAN CORPUSCULAR HEMOGLOBIN CONC (BEAKER) (test 29.6 GM/DL 32.3-36.5 grli=343) RED CELL DISTRIBUTION WIDTH (BEAKER) (test 19.5 % 11.6-14.4 zbhb=666) PLATELET COUNT (BEAKER) (test tyrp=807) 384 K/CU MM 150-450 MEAN PLATELET VOLUME (BEAKER) (test gbty=174) 10.2 fL 9.4-12.4 NUCLEATED RED BLOOD CELLS (BEAKER) (test 0 /100 WBC 0-0 jlvm=196) NEUTROPHILS RELATIVE PERCENT (BEAKER) (test 69 % bjww=132) LYMPHOCYTES RELATIVE PERCENT (BEAKER) (test 19 % dprv=109) MONOCYTES RELATIVE PERCENT (BEAKER) (test 8 % ifrk=914) EOSINOPHILS RELATIVE PERCENT (BEAKER) (test 4 % rwbd=559) BASOPHILS RELATIVE PERCENT (BEAKER) (test 1 % mwba=747) NEUTROPHILS ABSOLUTE COUNT (BEAKER) (test 5.61 K/ L 1.78-5.38 repq=943) LYMPHOCYTES ABSOLUTE COUNT (BEAKER) (test 1.52 K/ L 1.32-3.57 eigy=655) MONOCYTES ABSOLUTE COUNT (BEAKER) (test 0.62 K/ L 0.30-0.82 seya=421) EOSINOPHILS ABSOLUTE COUNT (BEAKER) (test 0.31 K/ L 0.04-0.54 qmhk=692) BASOPHILS ABSOLUTE COUNT (BEAKER) (test 0.04 K/ L 0.01-0.08 sgpd=162) IMMATURE GRANULOCYTES-RELATIVE PERCENT (BEAKER) 1 % 0-1 (test zcnw=9202) POCT-GLUCOSE [id number] 20:56:00 Test Item Value Reference Range Comments POC-GLUCOSE METER (BEAKER) 106 mg/dL 70-110 TESTED AT [address] (test efwy=6868) [facility] [address] POCT-GLUCOSE [id number] 16:55:00 Test Item Value Reference Range Comments POC-GLUCOSE METER (BEAKER) 106 mg/dL 70-110 TESTED AT [address] (test jnzu=6030) [facility] [address] POCT-GLUCOSE [id number] 12:19:00 Test Item Value Reference Range Comments POC-GLUCOSE METER (BEAKER) 121 mg/dL 70-110 TESTED AT [address] (test dvol=8170) [place] [address] POCT-GLUCOSE [id number] 07:51:00 Test Item Value Reference Range Comments POC-GLUCOSE METER (BEAKER) 190 mg/dL 70-110 TESTED AT [address] (test rwul=4124) [place] [id number] POCT-GLUCOSE [id number] 21:29:00 Test Item Value Reference Range Comments POC-GLUCOSE METER (BEAKER) 117 mg/dL 70-110 TESTED AT [address] (test ydns=0776) [facility] [address] POCT-GLUCOSE [id number] 17:29:00 Test Item Value Reference Range Comments POC-GLUCOSE METER (BEAKER) 123 mg/dL 70-110 TESTED AT [address] (test zeun=3177) [facility] [address] POCT-GLUCOSE [id number] 07:09:00 Test Item Value Reference Range Comments POC-GLUCOSE METER (BEAKER) 96 mg/dL 70-110 TESTED AT [address] (test xods=4573) [facility] [address] BASIC METABOLIC [id number] 06:48:00 Test Item Value Reference Range Comments SODIUM (BEAKER) (test 139 meq/L 136-145 pnlq=714) POTASSIUM (BEAKER) (test 4.2 meq/L 3.5-5.1 yakd=741) CHLORIDE (BEAKER) (test 114 meq/L 98-107 cfio=593) CO2 (BEAKER) (test 17 meq/L 22-29 lxsk=135) BLOOD UREA NITROGEN 18 mg/dL 7-21 (BEAKER) (test glqk=382) CREATININE (BEAKER) (test 0.97 mg/dL 0.57-1.25 hkim=220) GLUCOSE RANDOM (BEAKER) 94 mg/dL 70-105 (test hnoh=438) CALCIUM (BEAKER) (test 8.3 mg/dL 8.4-10.2 uahp=101) EGFR (BEAKER) (test 76 mL/min/1.73 sq m ESTIMATED GFR IS NOT vqgy=4815) ACCURATE CREATININE CLEARANCE IN PREDICTING GLOMERULAR FILTRATION RATE. ESTIMATED GFR IS NOT APPLICABLE FOR DIALYSIS PATIENTS. CBC W/PLT COUNT & AUTO [id number] 05:36:00 Test Item Value Reference Range Comments WHITE BLOOD CELL COUNT (BEAKER) (test yjta=647) 8.0 K/ L 3.5-10.5 RED BLOOD CELL COUNT (BEAKER) (test msgr=583) 3.32 M/ L 4.63-6.08 HEMOGLOBIN (BEAKER) (test heix=760) 9.1 GM/DL 13.7-17.5 HEMATOCRIT (BEAKER) (test ddkd=247) 31.1 % 40.1-51.0 MEAN CORPUSCULAR VOLUME (BEAKER) (test qbdg=593) 93.7 fL 79.0-92.2 MEAN CORPUSCULAR HEMOGLOBIN (BEAKER) (test 27.4 pg 25.7-32.2 pasy=741) MEAN CORPUSCULAR HEMOGLOBIN CONC (BEAKER) (test 29.3 GM/DL 32.3-36.5 zhgn=270) RED CELL DISTRIBUTION WIDTH (BEAKER) (test 19.7 % 11.6-14.4 afbz=322) PLATELET COUNT (BEAKER) (test hizb=645) 361 K/CU MM 150-450 MEAN PLATELET VOLUME (BEAKER) (test wsme=636) 10.1 fL 9.4-12.4 NUCLEATED RED BLOOD CELLS (BEAKER) (test 0 /100 WBC 0-0 cspn=007) NEUTROPHILS RELATIVE PERCENT (BEAKER) (test 66 % bimn=744) LYMPHOCYTES RELATIVE PERCENT (BEAKER) (test 20 % xeld=866) MONOCYTES RELATIVE PERCENT (BEAKER) (test 8 % irhs=656) EOSINOPHILS RELATIVE PERCENT (BEAKER) (test 5 % xswg=558) BASOPHILS RELATIVE PERCENT (BEAKER) (test 1 % snxj=453) NEUTROPHILS ABSOLUTE COUNT (BEAKER) (test 5.27 K/ L 1.78-5.38 koqu=100) LYMPHOCYTES ABSOLUTE COUNT (BEAKER) (test 1.62 K/ L 1.32-3.57 bxhq=022) MONOCYTES ABSOLUTE COUNT (BEAKER) (test 0.61 K/ L 0.30-0.82 pwmg=950) EOSINOPHILS ABSOLUTE COUNT (BEAKER) (test 0.42 K/ L 0.04-0.54 gzmv=875) BASOPHILS ABSOLUTE COUNT (BEAKER) (test 0.05 K/ L 0.01-0.08 fiir=123) IMMATURE GRANULOCYTES-RELATIVE PERCENT (BEAKER) 1 % 0-1 (test ieft=5528) POCT-GLUCOSE [id number] 21:28:00 Test Item Value Reference Range Comments POC-GLUCOSE METER (BEAKER) 119 mg/dL 70-110 TESTED AT [address] (test hajn=1663) [facility] [address] POCT-GLUCOSE [id number] 17:30:00 Test Item Value Reference Range Comments POC-GLUCOSE METER (BEAKER) 119 mg/dL 70-110 TESTED AT [address] (test buft=8547) [facility] [address] POCT-GLUCOSE [id number] 12:16:00 Test Item Value Reference Range Comments POC-GLUCOSE METER (BEAKER) 172 mg/dL 70-110 TESTED AT [address] (test flsd=5073) [facility] [address] POCT-GLUCOSE [id number] 08:15:00 Test Item Value Reference Range Comments POC-GLUCOSE METER (BEAKER) 118 mg/dL 70-110 TESTED AT [address] (test yrgo=6338) [facility] [address] POCT-GLUCOSE [id number] 20:56:00 Test Item Value Reference Range Comments POC-GLUCOSE METER (BEAKER) 171 mg/dL 70-110 TESTED AT [address] (test jcol=5164) [facility] [address] POCT-GLUCOSE [id number] 16:52:00 Test Item Value Reference Range Comments POC-GLUCOSE METER (BEAKER) 130 mg/dL 70-110 TESTED AT [facility] [address] [facility] (test yllj=9088) [facility] [address] POCT-GLUCOSE [id number] 12:59:00 Test Item Value Reference Range Comments POC-GLUCOSE METER (BEAKER) 124 mg/dL 70-110 TESTED AT [address] (test omkf=6051) [place] [id number] POCT-GLUCOSE [id number] 07:37:00 Test Item Value Reference Range Comments POC-GLUCOSE METER (BEAKER) 95 mg/dL 70-110 TESTED AT [address] (test wfkb=7369) [facility] [address] BASIC METABOLIC [id number] 05:54:00 Test Item Value Reference Range Comments SODIUM (BEAKER) (test 140 meq/L 136-145 bxke=216) POTASSIUM (BEAKER) (test 4.4 meq/L 3.5-5.1 qqwk=870) CHLORIDE (BEAKER) (test 116 meq/L 98-107 dfig=277) CO2 (BEAKER) (test 17 meq/L 22-29 cnac=733) BLOOD UREA NITROGEN 16 mg/dL 7-21 (BEAKER) (test thue=940) CREATININE (BEAKER) (test 1.01 mg/dL 0.57-1.25 ahdv=989) GLUCOSE RANDOM (BEAKER) 98 mg/dL 70-105 (test ihpa=779) CALCIUM (BEAKER) (test 8.3 mg/dL 8.4-10.2 qvld=950) EGFR (BEAKER) (test 72 mL/min/1.73 sq m ESTIMATED GFR IS NOT ilbp=0407) ACCURATE CREATININE CLEARANCE IN PREDICTING GLOMERULAR FILTRATION RATE. ESTIMATED GFR IS NOT APPLICABLE FOR DIALYSIS PATIENTS. CBC W/PLT COUNT & AUTO [id number] 05:33:00 Test Item Value Reference Range Comments WHITE BLOOD CELL COUNT (BEAKER) (test roci=915) 8.8 K/ L 3.5-10.5 RED BLOOD CELL COUNT (BEAKER) (test dtpz=938) 3.34 M/ L 4.63-6.08 HEMOGLOBIN (BEAKER) (test sefk=226) 9.2 GM/DL 13.7-17.5 HEMATOCRIT (BEAKER) (test kbtu=987) 31.9 % 40.1-51.0 MEAN CORPUSCULAR VOLUME (BEAKER) (test npuv=868) 95.5 fL 79.0-92.2 MEAN CORPUSCULAR HEMOGLOBIN (BEAKER) (test 27.5 pg 25.7-32.2 kyja=258) MEAN CORPUSCULAR HEMOGLOBIN CONC (BEAKER) (test 28.8 GM/DL 32.3-36.5 bkxv=451) RED CELL DISTRIBUTION WIDTH (BEAKER) (test 19.8 % 11.6-14.4 ogae=197) PLATELET COUNT (BEAKER) (test ctti=554) 375 K/CU MM 150-450 MEAN PLATELET VOLUME (BEAKER) (test coll=496) 9.9 fL 9.4-12.4 NUCLEATED RED BLOOD CELLS (BEAKER) (test 0 /100 WBC 0-0 alep=802) NEUTROPHILS RELATIVE PERCENT (BEAKER) (test 69 % lsrk=575) LYMPHOCYTES RELATIVE PERCENT (BEAKER) (test 17 % povg=003) MONOCYTES RELATIVE PERCENT (BEAKER) (test 8 % mulm=682) EOSINOPHILS RELATIVE PERCENT (BEAKER) (test 5 % fvmk=720) BASOPHILS RELATIVE PERCENT (BEAKER) (test 1 % oaqp=249) NEUTROPHILS ABSOLUTE COUNT (BEAKER) (test 6.05 K/ L 1.78-5.38 eodv=651) LYMPHOCYTES ABSOLUTE COUNT (BEAKER) (test 1.53 K/ L 1.32-3.57 ltiy=089) MONOCYTES ABSOLUTE COUNT (BEAKER) (test 0.73 K/ L 0.30-0.82 cwnp=439) EOSINOPHILS ABSOLUTE COUNT (BEAKER) (test 0.40 K/ L 0.04-0.54 tkdg=126) BASOPHILS ABSOLUTE COUNT (BEAKER) (test 0.05 K/ L 0.01-0.08 zgky=730) IMMATURE GRANULOCYTES-RELATIVE PERCENT (BEAKER) 1 % 0-1 (test dzdr=7631) POCT-GLUCOSE [id number] 21:13:00 Test Item Value Reference Range Comments POC-GLUCOSE METER (BEAKER) 159 mg/dL 70-110 TESTED AT [facility] [address] (test qblf=2115) [facility] [address] POCT-GLUCOSE [id number] 17:08:00 Test Item Value Reference Range Comments POC-GLUCOSE METER (BEAKER) 150 mg/dL 70-110 TESTED AT [address] (test npbv=1613) [facility] [address] POCT-GLUCOSE [id number] 12:03:00 Test Item Value Reference Range Comments POC-GLUCOSE METER (BEAKER) 163 mg/dL 70-110 TESTED AT [address] (test aqbw=8116) [facility] [address] POCT-GLUCOSE [id number] 08:07:00 Test Item Value Reference Range Comments POC-GLUCOSE METER (BEAKER) 114 mg/dL 70-110 TESTED AT [address] (test idcd=2938) [place] [id number] POCT-GLUCOSE [id number] 01:27:00 Test Item Value Reference Range Comments POC-GLUCOSE METER (BEAKER) 116 mg/dL 70-110 TESTED AT [address] (test gtlq=8287) [place] [address] POCT-GLUCOSE [id number] 19:42:00 Test Item Value Reference Range Comments POC-GLUCOSE METER (BEAKER) 119 mg/dL 70-110 TESTED AT [address] (test uzbj=3337) [place] [id number] POCT-GLUCOSE [id number] 12:22:00 Test Item Value Reference Range Comments POC-GLUCOSE METER (BEAKER) 130 mg/dL 70-110 TESTED AT [address] (test iprp=7005) [place] [address] POCT-GLUCOSE [id number] 07:40:00 Test Item Value Reference Range Comments POC-GLUCOSE METER (BEAKER) 132 mg/dL 70-110 TESTED AT [address] (test hqkn=2123) [facility] [address] BASIC METABOLIC [id number] 05:37:00 Test Item Value Reference Range Comments SODIUM (BEAKER) (test 136 meq/L 136-145 bnma=527) POTASSIUM (BEAKER) (test 4.2 meq/L 3.5-5.1 gura=188) CHLORIDE (BEAKER) (test 111 meq/L 98-107 wlua=618) CO2 (BEAKER) (test 18 meq/L 22-29 xkvm=090) BLOOD UREA NITROGEN 21 mg/dL 7-21 (BEAKER) (test xktt=549) CREATININE (BEAKER) (test 0.90 mg/dL 0.57-1.25 nvrg=978) GLUCOSE RANDOM (BEAKER) 102 mg/dL 70-105 (test zsco=424) CALCIUM (BEAKER) (test 7.8 mg/dL 8.4-10.2 rrka=614) EGFR (BEAKER) (test 82 mL/min/1.73 sq m ESTIMATED GFR IS NOT emdb=8423) ACCURATE CREATININE CLEARANCE IN PREDICTING GLOMERULAR FILTRATION RATE. ESTIMATED GFR IS NOT APPLICABLE FOR DIALYSIS PATIENTS. CBC W/PLT COUNT & AUTO [id number] 05:03:00 Test Item Value Reference Range Comments WHITE BLOOD CELL COUNT (BEAKER) (test kqrg=988) 9.7 K/ L 3.5-10.5 RED BLOOD CELL COUNT (BEAKER) (test xebc=914) 3.04 M/ L 4.63-6.08 HEMOGLOBIN (BEAKER) (test whpx=097) 8.3 GM/DL 13.7-17.5 HEMATOCRIT (BEAKER) (test hidr=590) 28.9 % 40.1-51.0 MEAN CORPUSCULAR VOLUME (BEAKER) (test osts=824) 95.1 fL 79.0-92.2 MEAN CORPUSCULAR HEMOGLOBIN (BEAKER) (test 27.3 pg 25.7-32.2 ssgz=654) MEAN CORPUSCULAR HEMOGLOBIN CONC (BEAKER) (test 28.7 GM/DL 32.3-36.5 kqzk=552) RED CELL DISTRIBUTION WIDTH (BEAKER) (test 19.7 % 11.6-14.4 mmhe=483) PLATELET COUNT (BEAKER) (test xslf=977) 356 K/CU MM 150-450 MEAN PLATELET VOLUME (BEAKER) (test nsdz=530) 10.4 fL 9.4-12.4 NUCLEATED RED BLOOD CELLS (BEAKER) (test 0 /100 WBC 0-0 irtf=967) NEUTROPHILS RELATIVE PERCENT (BEAKER) (test 72 % khdq=049) LYMPHOCYTES RELATIVE PERCENT (BEAKER) (test 15 % btbn=222) MONOCYTES RELATIVE PERCENT (BEAKER) (test 7 % zkfs=979) EOSINOPHILS RELATIVE PERCENT (BEAKER) (test 5 % jpcr=206) BASOPHILS RELATIVE PERCENT (BEAKER) (test 1 % hrnr=453) NEUTROPHILS ABSOLUTE COUNT (BEAKER) (test 6.97 K/ L 1.78-5.38 ectn=456) LYMPHOCYTES ABSOLUTE COUNT (BEAKER) (test 1.48 K/ L 1.32-3.57 wxny=236) MONOCYTES ABSOLUTE COUNT (BEAKER) (test 0.69 K/ L 0.30-0.82 ijdx=996) EOSINOPHILS ABSOLUTE COUNT (BEAKER) (test 0.44 K/ L 0.04-0.54 uqiq=658) BASOPHILS ABSOLUTE COUNT (BEAKER) (test 0.05 K/ L 0.01-0.08 huub=720) IMMATURE GRANULOCYTES-RELATIVE PERCENT (BEAKER) 1 % 0-1 (test ddvo=7469) POCT-GLUCOSE [id number] 21:34:00 Test Item Value Reference Range Comments POC-GLUCOSE METER (BEAKER) 141 mg/dL 70-110 TESTED AT [address] (test qfqb=1205) [place] [address] POCT-GLUCOSE [id number] 18:21:00 Test Item Value Reference Range Comments POC-GLUCOSE METER (BEAKER) 131 mg/dL 70-110 TESTED AT [address] (test rica=7392) [place] [address] POCT-GLUCOSE [id number] 12:54:00 Test Item Value Reference Range Comments POC-GLUCOSE METER (BEAKER) 139 mg/dL 70-110 TESTED AT [address] (test rttk=7700) [place] [id number] POCT-GLUCOSE [id number] 08:41:00 Test Item Value Reference Range Comments POC-GLUCOSE METER (BEAKER) 132 mg/dL 70-110 TESTED AT [address] (test prji=6589) [place] [id number] BASIC METABOLIC [id number] 05:44:00 Test Item Value Reference Range Comments SODIUM (BEAKER) (test 137 meq/L 136-145 bthr=489) POTASSIUM (BEAKER) (test 3.9 meq/L 3.5-5.1 zteu=053) CHLORIDE (BEAKER) (test 111 meq/L 98-107 gxlj=132) CO2 (BEAKER) (test 17 meq/L 22-29 xjpn=047) BLOOD UREA NITROGEN 21 mg/dL 7-21 (BEAKER) (test xbyd=471) CREATININE (BEAKER) (test 1.01 mg/dL 0.57-1.25 slrz=228) GLUCOSE RANDOM (BEAKER) 136 mg/dL 70-105 (test cbqq=760) CALCIUM (BEAKER) (test 7.6 mg/dL 8.4-10.2 xxkq=129) EGFR (BEAKER) (test 72 mL/min/1.73 sq m ESTIMATED GFR IS NOT vept=3999) ACCURATE CREATININE CLEARANCE IN PREDICTING GLOMERULAR FILTRATION RATE. ESTIMATED GFR IS NOT APPLICABLE FOR DIALYSIS PATIENTS. CBC W/PLT COUNT & AUTO [id number] 04:59:00 Test Item Value Reference Range Comments WHITE BLOOD CELL COUNT (BEAKER) (test tgej=319) 9.8 K/ L 3.5-10.5 RED BLOOD CELL COUNT (BEAKER) (test ruxw=453) 3.06 M/ L 4.63-6.08 HEMOGLOBIN (BEAKER) (test ktkv=016) 8.5 GM/DL 13.7-17.5 HEMATOCRIT (BEAKER) (test pizj=635) 29.4 % 40.1-51.0 MEAN CORPUSCULAR VOLUME (BEAKER) (test qxhc=367) 96.1 fL 79.0-92.2 MEAN CORPUSCULAR HEMOGLOBIN (BEAKER) (test 27.8 pg 25.7-32.2 qaor=367) MEAN CORPUSCULAR HEMOGLOBIN CONC (BEAKER) (test 28.9 GM/DL 32.3-36.5 dddm=562) RED CELL DISTRIBUTION WIDTH (BEAKER) (test 19.9 % 11.6-14.4 ztvh=954) PLATELET COUNT (BEAKER) (test gtdh=232) 357 K/CU MM 150-450 MEAN PLATELET VOLUME (BEAKER) (test wkkg=179) 10.1 fL 9.4-12.4 NUCLEATED RED BLOOD CELLS (BEAKER) (test 0 /100 WBC 0-0 aarv=248) NEUTROPHILS RELATIVE PERCENT (BEAKER) (test 73 % nbul=620) LYMPHOCYTES RELATIVE PERCENT (BEAKER) (test 13 % nmjq=551) MONOCYTES RELATIVE PERCENT (BEAKER) (test 7 % nttu=840) EOSINOPHILS RELATIVE PERCENT (BEAKER) (test 5 % bskt=373) BASOPHILS RELATIVE PERCENT (BEAKER) (test 1 % gpim=831) NEUTROPHILS ABSOLUTE COUNT (BEAKER) (test 7.20 K/ L 1.78-5.38 xdhd=099) LYMPHOCYTES ABSOLUTE COUNT (BEAKER) (test 1.28 K/ L 1.32-3.57 xkws=458) MONOCYTES ABSOLUTE COUNT (BEAKER) (test 0.72 K/ L 0.30-0.82 hqva=536) EOSINOPHILS ABSOLUTE COUNT (BEAKER) (test 0.47 K/ L 0.04-0.54 mrti=484) BASOPHILS ABSOLUTE COUNT (BEAKER) (test 0.05 K/ L 0.01-0.08 snny=786) IMMATURE GRANULOCYTES-RELATIVE PERCENT (BEAKER) 1 % 0-1 (test cedo=5118) POCT-GLUCOSE [id number] 21:21:00 Test Item Value Reference Range Comments POC-GLUCOSE METER (BEAKER) 141 mg/dL 70-110 TESTED AT [address] (test hvoq=7312) [place] [address] POCT-GLUCOSE [id number] 17:50:00 Test Item Value Reference Range Comments POC-GLUCOSE METER (BEAKER) 142 mg/dL 70-110 TESTED AT [address] (test bnfl=1717) [place] [id number] POCT-GLUCOSE [id number] 12:12:00 Test Item Value Reference Range Comments POC-GLUCOSE METER (BEAKER) 148 mg/dL 70-110 TESTED AT [address] (test iord=1486) [facility] [address] [id number] 09:57:00 Test Item Value Reference Range Comments TOTAL PROTEIN (BEAKER) (test irdf=279) 5.7 gm/dL 6.0-8.3 ALBUMIN (BEAKER) (test mtjm=4098) 2.5 g/dL 3.5-5.0 BILIRUBIN TOTAL (BEAKER) (test ynid=171) 0.4 mg/dL 0.2-1.2 BILIRUBIN DIRECT (BEAKER) (test yoir=865) 0.2 mg/dL 0.1-0.5 ALKALINE PHOSPHATASE (BEAKER) (test ebkp=806) 65 U/L 40-150 AST (SGOT) (BEAKER) (test ssyb=949) 18 U/L 5-34 ALT (SGPT) (BEAKER) (test gemy=399) 11 U/L 6-55 BASIC METABOLIC [id number] 08:36:00 Test Item Value Reference Range Comments SODIUM (BEAKER) (test 139 meq/L 136-145 zdiq=986) POTASSIUM (BEAKER) (test 4.1 meq/L 3.5-5.1 rbeg=461) CHLORIDE (BEAKER) (test 111 meq/L 98-107 jaeq=158) CO2 (BEAKER) (test 19 meq/L 22-29 osph=943) BLOOD UREA NITROGEN 31 mg/dL 7-21 (BEAKER) (test ldpx=541) CREATININE (BEAKER) (test 1.29 mg/dL 0.57-1.25 yiix=942) GLUCOSE RANDOM (BEAKER) 138 mg/dL 70-105 (test qges=423) CALCIUM (BEAKER) (test 7.7 mg/dL 8.4-10.2 qqde=875) EGFR (BEAKER) (test 54 mL/min/1.73 sq m ESTIMATED GFR IS NOT aexh=8253) ACCURATE CREATININE CLEARANCE IN PREDICTING GLOMERULAR FILTRATION RATE. ESTIMATED GFR IS NOT APPLICABLE FOR DIALYSIS PATIENTS. POCT-GLUCOSE [id number] 08:14:00 Test Item Value Reference Range Comments POC-GLUCOSE METER (BEAKER) 156 mg/dL 70-110 TESTED AT [facility] [address] [facility] [facility] (test ftcm=0555) [facility] [address] CBC W/PLT COUNT & AUTO [id number] 08:14:00 Test Item Value Reference Range Comments WHITE BLOOD CELL COUNT (BEAKER) (test bxzr=922) 9.2 K/ L 3.5-10.5 RED BLOOD CELL COUNT (BEAKER) (test rgia=889) 3.41 M/ L 4.63-6.08 HEMOGLOBIN (BEAKER) (test mcog=816) 9.3 GM/DL 13.7-17.5 HEMATOCRIT (BEAKER) (test ekgx=680) 32.5 % 40.1-51.0 MEAN CORPUSCULAR VOLUME (BEAKER) (test qqwm=251) 95.3 fL 79.0-92.2 MEAN CORPUSCULAR HEMOGLOBIN (BEAKER) (test 27.3 pg 25.7-32.2 rmuk=532) MEAN CORPUSCULAR HEMOGLOBIN CONC (BEAKER) (test 28.6 GM/DL 32.3-36.5 ffpk=572) RED CELL DISTRIBUTION WIDTH (BEAKER) (test 20.0 % 11.6-14.4 akgu=774) PLATELET COUNT (BEAKER) (test aour=867) 387 K/CU MM 150-450 MEAN PLATELET VOLUME (BEAKER) (test kqyx=233) 10.2 fL 9.4-12.4 NUCLEATED RED BLOOD CELLS (BEAKER) (test 0 /100 WBC 0-0 itck=589) NEUTROPHILS RELATIVE PERCENT (BEAKER) (test 76 % uhqg=826) LYMPHOCYTES RELATIVE PERCENT (BEAKER) (test 12 % npoy=766) MONOCYTES RELATIVE PERCENT (BEAKER) (test 9 % bcvu=632) EOSINOPHILS RELATIVE PERCENT (BEAKER) (test 2 % gdxy=828) BASOPHILS RELATIVE PERCENT (BEAKER) (test 1 % ztlx=429) NEUTROPHILS ABSOLUTE COUNT (BEAKER) (test 6.98 K/ L 1.78-5.38 kfbj=483) LYMPHOCYTES ABSOLUTE COUNT (BEAKER) (test 1.10 K/ L 1.32-3.57 qqgb=702) MONOCYTES ABSOLUTE COUNT (BEAKER) (test 0.79 K/ L 0.30-0.82 oatn=408) EOSINOPHILS ABSOLUTE COUNT (BEAKER) (test 0.17 K/ L 0.04-0.54 bnin=275) BASOPHILS ABSOLUTE COUNT (BEAKER) (test 0.06 K/ L 0.01-0.08 hvav=738) IMMATURE GRANULOCYTES-RELATIVE PERCENT (BEAKER) 1 % 0-1 (test brdg=4969) POCT-GLUCOSE [id number] 21:25:00 Test Item Value Reference Range Comments POC-GLUCOSE METER (BEAKER) 144 mg/dL 70-110 TESTED AT [address] (test nivf=6561) [facility] [address] POCT-GLUCOSE [id number] 17:34:00 Test Item Value Reference Range Comments POC-GLUCOSE METER (BEAKER) 155 mg/dL 70-110 TESTED AT [address] (test xcpe=0499) [facility] [address] POCT-GLUCOSE [id number] 11:45:00 Test Item Value Reference Range Comments POC-GLUCOSE METER (BEAKER) 114 mg/dL 70-110 TESTED AT [address] (test wxzb=7394) [facility] [address] POCT-GLUCOSE [id number] 07:56:00 Test Item Value Reference Range Comments POC-GLUCOSE METER (BEAKER) 106 mg/dL 70-110 TESTED AT [facility] [address] (test yeqt=5933) [facility] [address] BASIC METABOLIC [id number] 05:58:00 Test Item Value Reference Range Comments SODIUM (BEAKER) (test 137 meq/L 136-145 fjtx=376) POTASSIUM (BEAKER) (test 4.6 meq/L 3.5-5.1 mmrn=436) CHLORIDE (BEAKER) (test 110 meq/L 98-107 weiq=253) CO2 (BEAKER) (test 18 meq/L 22-29 rdij=807) BLOOD UREA NITROGEN 38 mg/dL 7-21 (BEAKER) (test lzdu=307) CREATININE (BEAKER) (test 1.32 mg/dL 0.57-1.25 fbku=656) GLUCOSE RANDOM (BEAKER) 105 mg/dL 70-105 (test mfly=101) CALCIUM (BEAKER) (test 8.0 mg/dL 8.4-10.2 wpul=540) EGFR (BEAKER) (test 53 mL/min/1.73 sq m ESTIMATED GFR IS NOT ldvr=7599) ACCURATE CREATININE CLEARANCE IN PREDICTING GLOMERULAR FILTRATION RATE. ESTIMATED GFR IS NOT APPLICABLE FOR DIALYSIS PATIENTS. CBC W/PLT COUNT & AUTO [id number] 05:42:00 Test Item Value Reference Range Comments WHITE BLOOD CELL COUNT (BEAKER) (test iegg=894) 9.1 K/ L 3.5-10.5 RED BLOOD CELL COUNT (BEAKER) (test kwks=381) 3.38 M/ L 4.63-6.08 HEMOGLOBIN (BEAKER) (test jeof=295) 9.2 GM/DL 13.7-17.5 HEMATOCRIT (BEAKER) (test ylrx=980) 31.5 % 40.1-51.0 MEAN CORPUSCULAR VOLUME (BEAKER) (test idzn=821) 93.2 fL 79.0-92.2 MEAN CORPUSCULAR HEMOGLOBIN (BEAKER) (test 27.2 pg 25.7-32.2 uhmh=210) MEAN CORPUSCULAR HEMOGLOBIN CONC (BEAKER) (test 29.2 GM/DL 32.3-36.5 oheh=340) RED CELL DISTRIBUTION WIDTH (BEAKER) (test 19.4 % 11.6-14.4 tqax=098) PLATELET COUNT (BEAKER) (test ahtv=847) 379 K/CU MM 150-450 MEAN PLATELET VOLUME (BEAKER) (test jhfs=309) 9.9 fL 9.4-12.4 NUCLEATED RED BLOOD CELLS (BEAKER) (test 0 /100 WBC 0-0 cxml=191) NEUTROPHILS RELATIVE PERCENT (BEAKER) (test 70 % yhes=404) LYMPHOCYTES RELATIVE PERCENT (BEAKER) (test 18 % zxyl=560) MONOCYTES RELATIVE PERCENT (BEAKER) (test 7 % bbnv=312) EOSINOPHILS RELATIVE PERCENT (BEAKER) (test 3 % iyyr=473) BASOPHILS RELATIVE PERCENT (BEAKER) (test 1 % paqm=759) NEUTROPHILS ABSOLUTE COUNT (BEAKER) (test 6.33 K/ L 1.78-5.38 vthh=616) LYMPHOCYTES ABSOLUTE COUNT (BEAKER) (test 1.65 K/ L 1.32-3.57 dqhy=959) MONOCYTES ABSOLUTE COUNT (BEAKER) (test 0.66 K/ L 0.30-0.82 loib=602) EOSINOPHILS ABSOLUTE COUNT (BEAKER) (test 0.28 K/ L 0.04-0.54 pceb=069) BASOPHILS ABSOLUTE COUNT (BEAKER) (test 0.07 K/ L 0.01-0.08 rqip=410) IMMATURE GRANULOCYTES-RELATIVE PERCENT (BEAKER) 1 % 0-1 (test bizo=8105) POCT-GLUCOSE [id number] 21:38:00 Test Item Value Reference Range Comments POC-GLUCOSE METER (BEAKER) 124 mg/dL 70-110 TESTED AT [address] (test gsll=1707) [facility] [id number] POCT-GLUCOSE [id number] 18:26:00 Test Item Value Reference Range Comments POC-GLUCOSE METER (BEAKER) 115 mg/dL 70-110 TESTED AT [address] (test zosv=4717) [facility] [id number] POCT-GLUCOSE [id number] 11:51:00 Test Item Value Reference Range Comments POC-GLUCOSE METER (BEAKER) 148 mg/dL 70-110 TESTED AT [address] (test vubb=8230) [place] [id number] POCT-GLUCOSE [id number] 08:28:00 Test Item Value Reference Range Comments POC-GLUCOSE METER (BEAKER) 124 mg/dL 70-110 TESTED AT [facility] [address] [facility] (test pxye=5518) [facility] [address] BASIC METABOLIC [id number] 06:52:00 Test Item Value Reference Range Comments SODIUM (BEAKER) (test 138 meq/L 136-145 ztlg=099) POTASSIUM (BEAKER) (test 4.4 meq/L 3.5-5.1 yvoe=274) CHLORIDE (BEAKER) (test 109 meq/L 98-107 qjtg=236) CO2 (BEAKER) (test 21 meq/L 22-29 awix=549) BLOOD UREA NITROGEN 48 mg/dL 7-21 (BEAKER) (test amhj=322) CREATININE (BEAKER) (test 1.40 mg/dL 0.57-1.25 vtlt=810) GLUCOSE RANDOM (BEAKER) 112 mg/dL 70-105 (test zbtf=617) CALCIUM (BEAKER) (test 8.2 mg/dL 8.4-10.2 lqmh=923) EGFR (BEAKER) (test 50 mL/min/1.73 sq m ESTIMATED GFR IS NOT kgbx=6477) ACCURATE CREATININE CLEARANCE IN PREDICTING GLOMERULAR FILTRATION RATE. ESTIMATED GFR IS NOT APPLICABLE FOR DIALYSIS PATIENTS. CBC W/PLT COUNT & AUTO [id number] 06:19:00 Test Item Value Reference Range Comments WHITE BLOOD CELL COUNT (BEAKER) (test emgn=168) 9.2 K/ L 3.5-10.5 RED BLOOD CELL COUNT (BEAKER) (test ygjf=286) 3.32 M/ L 4.63-6.08 HEMOGLOBIN (BEAKER) (test babn=006) 9.2 GM/DL 13.7-17.5 HEMATOCRIT (BEAKER) (test gkpj=333) 31.3 % 40.1-51.0 MEAN CORPUSCULAR VOLUME (BEAKER) (test cnzx=208) 94.3 fL 79.0-92.2 MEAN CORPUSCULAR HEMOGLOBIN (BEAKER) (test 27.7 pg 25.7-32.2 oanj=438) MEAN CORPUSCULAR HEMOGLOBIN CONC (BEAKER) (test 29.4 GM/DL 32.3-36.5 gpjy=611) RED CELL DISTRIBUTION WIDTH (BEAKER) (test 19.5 % 11.6-14.4 igxr=885) PLATELET COUNT (BEAKER) (test vabn=596) 420 K/CU MM 150-450 MEAN PLATELET VOLUME (BEAKER) (test yhwx=723) 10.1 fL 9.4-12.4 NUCLEATED RED BLOOD CELLS (BEAKER) (test 0 /100 WBC 0-0 qtbv=275) NEUTROPHILS RELATIVE PERCENT (BEAKER) (test 68 % atdz=406) LYMPHOCYTES RELATIVE PERCENT (BEAKER) (test 19 % pzdj=945) MONOCYTES RELATIVE PERCENT (BEAKER) (test 9 % tssy=909) EOSINOPHILS RELATIVE PERCENT (BEAKER) (test 3 % ewjm=349) BASOPHILS RELATIVE PERCENT (BEAKER) (test 1 % ulet=205) NEUTROPHILS ABSOLUTE COUNT (BEAKER) (test 6.25 K/ L 1.78-5.38 ymsj=427) LYMPHOCYTES ABSOLUTE COUNT (BEAKER) (test 1.72 K/ L 1.32-3.57 agch=482) MONOCYTES ABSOLUTE COUNT (BEAKER) (test 0.80 K/ L 0.30-0.82 xsks=270) EOSINOPHILS ABSOLUTE COUNT (BEAKER) (test 0.29 K/ L 0.04-0.54 whoe=335) BASOPHILS ABSOLUTE COUNT (BEAKER) (test 0.07 K/ L 0.01-0.08 jtwq=883) IMMATURE GRANULOCYTES-RELATIVE PERCENT (BEAKER) 1 % 0-1 (test ofoc=9019) POCT-GLUCOSE [id number] 21:24:00 Test Item Value Reference Range Comments POC-GLUCOSE METER (BEAKER) 153 mg/dL 70-110 TESTED AT [address] (test ydec=1084) [place] [id number] POCT-GLUCOSE [id number] 16:21:00 Test Item Value Reference Range Comments POC-GLUCOSE METER (BEAKER) 177 mg/dL 70-110 TESTED AT [address] (test dtdx=1107) [place] [id number] AFB CULTURE + [id number] 12:45:00 Test Item Value Reference Range Comments CULTURE (BEAKER) (test No acid-fast bacilli isolated itzv=2700) in 42 days AFB SMEAR (BEAKER) (test No acid fast bacilli seen qets=151) POCT-GLUCOSE [id number] 12:07:00 Test Item Value Reference Range Comments POC-GLUCOSE METER (BEAKER) 141 mg/dL 70-110 TESTED AT [facility] [address] [facility] (test niri=9165) [facility] [address] POCT-GLUCOSE [id number] 07:48:00 Test Item Value Reference Range Comments POC-GLUCOSE METER (BEAKER) 141 mg/dL 70-110 TESTED AT [place] [id number] [facility] (test fhnd=1550) [facility] [address] BASIC METABOLIC [id number] 04:55:00 Test Item Value Reference Range Comments SODIUM (BEAKER) (test 137 meq/L 136-145 weeq=031) POTASSIUM (BEAKER) (test 4.5 meq/L 3.5-5.1 tpjt=689) CHLORIDE (BEAKER) (test 107 meq/L 98-107 rger=131) CO2 (BEAKER) (test 21 meq/L 22-29 psxy=069) BLOOD UREA NITROGEN 47 mg/dL 7-21 (BEAKER) (test gnzh=384) CREATININE (BEAKER) (test 1.32 mg/dL 0.57-1.25 hitr=871) GLUCOSE RANDOM (BEAKER) 111 mg/dL 70-105 (test vuau=122) CALCIUM (BEAKER) (test 8.2 mg/dL 8.4-10.2 pwsn=216) EGFR (BEAKER) (test 53 mL/min/1.73 sq m ESTIMATED GFR IS NOT bnob=2828) ACCURATE CREATININE CLEARANCE IN PREDICTING GLOMERULAR FILTRATION RATE. ESTIMATED GFR IS NOT APPLICABLE FOR DIALYSIS PATIENTS. CBC W/PLT COUNT & AUTO [id number] 04:44:00 Test Item Value Reference Range Comments WHITE BLOOD CELL COUNT (BEAKER) (test eynu=228) 9.4 K/ L 3.5-10.5 RED BLOOD CELL COUNT (BEAKER) (test rmoi=269) 3.36 M/ L 4.63-6.08 HEMOGLOBIN (BEAKER) (test gomt=266) 9.2 GM/DL 13.7-17.5 HEMATOCRIT (BEAKER) (test givy=971) 31.4 % 40.1-51.0 MEAN CORPUSCULAR VOLUME (BEAKER) (test fyol=990) 93.5 fL 79.0-92.2 MEAN CORPUSCULAR HEMOGLOBIN (BEAKER) (test 27.4 pg 25.7-32.2 jzjf=249) MEAN CORPUSCULAR HEMOGLOBIN CONC (BEAKER) (test 29.3 GM/DL 32.3-36.5 hcst=131) RED CELL DISTRIBUTION WIDTH (BEAKER) (test 19.6 % 11.6-14.4 dozq=959) PLATELET COUNT (BEAKER) (test pfom=741) 432 K/CU MM 150-450 MEAN PLATELET VOLUME (BEAKER) (test ffvz=373) 10.0 fL 9.4-12.4 NUCLEATED RED BLOOD CELLS (BEAKER) (test 0 /100 WBC 0-0 jgiv=626) NEUTROPHILS RELATIVE PERCENT (BEAKER) (test 69 % qqcl=544) LYMPHOCYTES RELATIVE PERCENT (BEAKER) (test 18 % nppq=559) MONOCYTES RELATIVE PERCENT (BEAKER) (test 8 % bwgb=780) EOSINOPHILS RELATIVE PERCENT (BEAKER) (test 3 % gasx=431) BASOPHILS RELATIVE PERCENT (BEAKER) (test 1 % bppg=298) NEUTROPHILS ABSOLUTE COUNT (BEAKER) (test 6.48 K/ L 1.78-5.38 udye=931) LYMPHOCYTES ABSOLUTE COUNT (BEAKER) (test 1.68 K/ L 1.32-3.57 jwwn=737) MONOCYTES ABSOLUTE COUNT (BEAKER) (test 0.76 K/ L 0.30-0.82 wwbb=960) EOSINOPHILS ABSOLUTE COUNT (BEAKER) (test 0.29 K/ L 0.04-0.54 bhrv=263) BASOPHILS ABSOLUTE COUNT (BEAKER) (test 0.07 K/ L 0.01-0.08 ipga=167) IMMATURE GRANULOCYTES-RELATIVE PERCENT (BEAKER) 1 % 0-1 (test azbb=5962) POCT-GLUCOSE [id number] 21:14:00 Test Item Value Reference Range Comments POC-GLUCOSE METER (BEAKER) 151 mg/dL 70-110 TESTED AT [address] (test pfhb=6366) [facility] [address] POCT-GLUCOSE [id number] 17:35:00 Test Item Value Reference Range Comments POC-GLUCOSE METER (BEAKER) 111 mg/dL 70-110 TESTED AT [address] (test adjf=7684) [facility] [address] POCT-GLUCOSE [id number] 13:31:00 Test Item Value Reference Range Comments POC-GLUCOSE METER (BEAKER) 141 mg/dL 70-110 TESTED AT [facility] [address] (test msnu=1896) [facility] [address] POCT-GLUCOSE [id number] 08:31:00 Test Item Value Reference Range Comments POC-GLUCOSE METER (BEAKER) 112 mg/dL 70-110 TESTED AT [facility] [address] (test kdix=3577) [facility] [address] BASIC METABOLIC [id number] 06:01:00 Test Item Value Reference Range Comments SODIUM (BEAKER) (test 138 meq/L 136-145 wdgj=143) POTASSIUM (BEAKER) (test 4.6 meq/L 3.5-5.1 sysm=428) CHLORIDE (BEAKER) (test 109 meq/L 98-107 lgre=490) CO2 (BEAKER) (test 21 meq/L 22-29 jrzy=559) BLOOD UREA NITROGEN 41 mg/dL 7-21 (BEAKER) (test woux=913) CREATININE (BEAKER) (test 1.35 mg/dL 0.57-1.25 tzcr=430) GLUCOSE RANDOM (BEAKER) 111 mg/dL 70-105 (test znfo=309) CALCIUM (BEAKER) (test 8.3 mg/dL 8.4-10.2 ezwk=548) EGFR (BEAKER) (test 52 mL/min/1.73 sq m ESTIMATED GFR IS NOT qvzn=3718) ACCURATE CREATININE CLEARANCE IN PREDICTING GLOMERULAR FILTRATION RATE. ESTIMATED GFR IS NOT APPLICABLE FOR DIALYSIS PATIENTS. CBC W/PLT COUNT & AUTO [id number] 05:43:00 Test Item Value Reference Range Comments WHITE BLOOD CELL COUNT (BEAKER) (test ardr=829) 8.9 K/ L 3.5-10.5 RED BLOOD CELL COUNT (BEAKER) (test nmbs=633) 3.42 M/ L 4.63-6.08 HEMOGLOBIN (BEAKER) (test jryg=268) 9.4 GM/DL 13.7-17.5 HEMATOCRIT (BEAKER) (test vzwj=301) 33.0 % 40.1-51.0 MEAN CORPUSCULAR VOLUME (BEAKER) (test fhmq=777) 96.5 fL 79.0-92.2 MEAN CORPUSCULAR HEMOGLOBIN (BEAKER) (test 27.5 pg 25.7-32.2 nwko=938) MEAN CORPUSCULAR HEMOGLOBIN CONC (BEAKER) (test 28.5 GM/DL 32.3-36.5 vxne=406) RED CELL DISTRIBUTION WIDTH (BEAKER) (test 19.4 % 11.6-14.4 qsyg=722) PLATELET COUNT (BEAKER) (test idij=208) 420 K/CU MM 150-450 MEAN PLATELET VOLUME (BEAKER) (test tllz=520) 10.0 fL 9.4-12.4 NUCLEATED RED BLOOD CELLS (BEAKER) (test 0 /100 WBC 0-0 ggob=979) NEUTROPHILS RELATIVE PERCENT (BEAKER) (test 69 % rvdz=540) LYMPHOCYTES RELATIVE PERCENT (BEAKER) (test 18 % aqgc=318) MONOCYTES RELATIVE PERCENT (BEAKER) (test 9 % svjl=775) EOSINOPHILS RELATIVE PERCENT (BEAKER) (test 3 % rila=829) BASOPHILS RELATIVE PERCENT (BEAKER) (test 1 % ttmi=522) NEUTROPHILS ABSOLUTE COUNT (BEAKER) (test 6.09 K/ L 1.78-5.38 oknh=388) LYMPHOCYTES ABSOLUTE COUNT (BEAKER) (test 1.57 K/ L 1.32-3.57 tuag=516) MONOCYTES ABSOLUTE COUNT (BEAKER) (test 0.77 K/ L 0.30-0.82 zzkq=069) EOSINOPHILS ABSOLUTE COUNT (BEAKER) (test 0.26 K/ L 0.04-0.54 xjpj=858) BASOPHILS ABSOLUTE COUNT (BEAKER) (test 0.07 K/ L 0.01-0.08 zbdr=795) IMMATURE GRANULOCYTES-RELATIVE PERCENT (BEAKER) 1 % 0-1 (test easm=6738) POCT-GLUCOSE [id number] 22:00:00 Test Item Value Reference Range Comments POC-GLUCOSE METER (BEAKER) 126 mg/dL 70-110 TESTED AT [address] (test zhtz=1503) [facility] [address] POCT-GLUCOSE [id number] 17:08:00 Test Item Value Reference Range Comments POC-GLUCOSE METER (BEAKER) 179 mg/dL 70-110 TESTED AT [address] (test htfj=2476) [facility] [address] POCT-GLUCOSE [id number] 12:10:00 Test Item Value Reference Range Comments POC-GLUCOSE METER (BEAKER) 128 mg/dL 70-110 TESTED AT [facility] [address] [facility] (test jqng=0700) [facility] [address] POCT-GLUCOSE [id number] 07:38:00 Test Item Value Reference Range Comments POC-GLUCOSE METER (BEAKER) 127 mg/dL 70-110 TESTED AT [facility] [address] (test jxzz=0747) [facility] [address] BASIC METABOLIC [id number] 04:23:00 Test Item Value Reference Range Comments SODIUM (BEAKER) (test 137 meq/L 136-145 ydti=663) POTASSIUM (BEAKER) (test 4.4 meq/L 3.5-5.1 bebk=885) CHLORIDE (BEAKER) (test 106 meq/L 98-107 qdqg=480) CO2 (BEAKER) (test 22 meq/L 22-29 dwyp=723) BLOOD UREA NITROGEN 39 mg/dL 7-21 (BEAKER) (test hrpz=037) CREATININE (BEAKER) (test 1.45 mg/dL 0.57-1.25 fvry=002) GLUCOSE RANDOM (BEAKER) 122 mg/dL 70-105 (test efkh=458) CALCIUM (BEAKER) (test 8.2 mg/dL 8.4-10.2 dfum=528) EGFR (BEAKER) (test 48 mL/min/1.73 sq m ESTIMATED GFR IS NOT wexo=7143) ACCURATE CREATININE CLEARANCE IN PREDICTING GLOMERULAR FILTRATION RATE. ESTIMATED GFR IS NOT APPLICABLE FOR DIALYSIS PATIENTS. CBC W/PLT COUNT & AUTO [id number] 04:06:00 Test Item Value Reference Range Comments WHITE BLOOD CELL COUNT (BEAKER) (test mwiy=489) 10.4 K/ L 3.5-10.5 RED BLOOD CELL COUNT (BEAKER) (test rkbt=332) 3.33 M/ L 4.63-6.08 HEMOGLOBIN (BEAKER) (test dtuu=925) 9.3 GM/DL 13.7-17.5 HEMATOCRIT (BEAKER) (test qjfn=174) 31.3 % 40.1-51.0 MEAN CORPUSCULAR VOLUME (BEAKER) (test dckx=087) 94.0 fL 79.0-92.2 MEAN CORPUSCULAR HEMOGLOBIN (BEAKER) (test 27.9 pg 25.7-32.2 phkh=132) MEAN CORPUSCULAR HEMOGLOBIN CONC (BEAKER) (test 29.7 GM/DL 32.3-36.5 aoxa=173) RED CELL DISTRIBUTION WIDTH (BEAKER) (test 19.0 % 11.6-14.4 osdm=988) PLATELET COUNT (BEAKER) (test qztk=635) 427 K/CU MM 150-450 MEAN PLATELET VOLUME (BEAKER) (test tvrs=908) 9.4 fL 9.4-12.4 NUCLEATED RED BLOOD CELLS (BEAKER) (test 0 /100 WBC 0-0 xdei=411) NEUTROPHILS RELATIVE PERCENT (BEAKER) (test 72 % cxrx=368) LYMPHOCYTES RELATIVE PERCENT (BEAKER) (test 15 % qnee=779) MONOCYTES RELATIVE PERCENT (BEAKER) (test 10 % jczs=415) EOSINOPHILS RELATIVE PERCENT (BEAKER) (test 2 % mida=066) BASOPHILS RELATIVE PERCENT (BEAKER) (test 1 % cwie=630) NEUTROPHILS ABSOLUTE COUNT (BEAKER) (test 7.44 K/ L 1.78-5.38 nmax=106) LYMPHOCYTES ABSOLUTE COUNT (BEAKER) (test 1.55 K/ L 1.32-3.57 ydlo=365) MONOCYTES ABSOLUTE COUNT (BEAKER) (test 0.99 K/ L 0.30-0.82 rxgm=820) EOSINOPHILS ABSOLUTE COUNT (BEAKER) (test 0.24 K/ L 0.04-0.54 czzr=362) BASOPHILS ABSOLUTE COUNT (BEAKER) (test 0.05 K/ L 0.01-0.08 hezt=406) IMMATURE GRANULOCYTES-RELATIVE PERCENT (BEAKER) 1 % 0-1 (test kvub=1861) POCT-GLUCOSE [id number] 21:40:00 Test Item Value Reference Range Comments POC-GLUCOSE METER (BEAKER) 139 mg/dL 70-110 TESTED AT [address] (test ccam=9106) [facility] [address] POCT-GLUCOSE [id number] 17:42:00 Test Item Value Reference Range Comments POC-GLUCOSE METER (BEAKER) 131 mg/dL 70-110 TESTED AT [address] (test zwau=1241) [facility] [address] POCT-GLUCOSE [id number] 11:35:00 Test Item Value Reference Range Comments POC-GLUCOSE METER (BEAKER) 141 mg/dL 70-110 TESTED AT [facility] [address] [facility] [facility] (test ujqb=2498) [facility] [address] POCT-GLUCOSE [id number] 08:03:00 Test Item Value Reference Range Comments POC-GLUCOSE METER (BEAKER) 125 mg/dL 70-110 TESTED AT [facility] [address] [facility] [facility] (test qfoc=5296) [facility] [address] BASIC METABOLIC [id number] 05:36:00 Test Item Value Reference Range Comments SODIUM (BEAKER) (test 138 meq/L 136-145 kuia=523) POTASSIUM (BEAKER) (test 4.5 meq/L 3.5-5.1 mlwn=064) CHLORIDE (BEAKER) (test 106 meq/L 98-107 nkgt=181) CO2 (BEAKER) (test 23 meq/L 22-29 osvy=616) BLOOD UREA NITROGEN 41 mg/dL 7-21 (BEAKER) (test cqmv=232) CREATININE (BEAKER) (test 1.55 mg/dL 0.57-1.25 bgwj=119) GLUCOSE RANDOM (BEAKER) 115 mg/dL 70-105 (test ntdc=279) CALCIUM (BEAKER) (test 8.5 mg/dL 8.4-10.2 eljr=536) EGFR (BEAKER) (test 44 mL/min/1.73 sq m ESTIMATED GFR IS NOT cqdm=2082) ACCURATE CREATININE CLEARANCE IN PREDICTING GLOMERULAR FILTRATION RATE. ESTIMATED GFR IS NOT APPLICABLE FOR DIALYSIS PATIENTS. CBC W/PLT COUNT & AUTO [id number] 03:42:00 Test Item Value Reference Range Comments WHITE BLOOD CELL COUNT (BEAKER) (test civa=121) 10.2 K/ L 3.5-10.5 RED BLOOD CELL COUNT (BEAKER) (test pvmb=567) 3.57 M/ L 4.63-6.08 HEMOGLOBIN (BEAKER) (test ulyn=876) 10.0 GM/DL 13.7-17.5 HEMATOCRIT (BEAKER) (test bysg=437) 33.2 % 40.1-51.0 MEAN CORPUSCULAR VOLUME (BEAKER) (test cqnk=434) 93.0 fL 79.0-92.2 MEAN CORPUSCULAR HEMOGLOBIN (BEAKER) (test 28.0 pg 25.7-32.2 oeze=838) MEAN CORPUSCULAR HEMOGLOBIN CONC (BEAKER) (test 30.1 GM/DL 32.3-36.5 brgt=404) RED CELL DISTRIBUTION WIDTH (BEAKER) (test 18.9 % 11.6-14.4 mgnt=308) PLATELET COUNT (BEAKER) (test kebi=441) 479 K/CU MM 150-450 MEAN PLATELET VOLUME (BEAKER) (test lkkr=331) 10.2 fL 9.4-12.4 NUCLEATED RED BLOOD CELLS (BEAKER) (test 0 /100 WBC 0-0 mtur=322) NEUTROPHILS RELATIVE PERCENT (BEAKER) (test 70 % crqa=958) LYMPHOCYTES RELATIVE PERCENT (BEAKER) (test 17 % ixbz=339) MONOCYTES RELATIVE PERCENT (BEAKER) (test 8 % umpm=277) EOSINOPHILS RELATIVE PERCENT (BEAKER) (test 3 % ayxw=543) BASOPHILS RELATIVE PERCENT (BEAKER) (test 1 % hlop=076) NEUTROPHILS ABSOLUTE COUNT (BEAKER) (test 7.12 K/ L 1.78-5.38 culh=997) LYMPHOCYTES ABSOLUTE COUNT (BEAKER) (test 1.74 K/ L 1.32-3.57 rbpw=104) MONOCYTES ABSOLUTE COUNT (BEAKER) (test 0.82 K/ L 0.30-0.82 tflp=623) EOSINOPHILS ABSOLUTE COUNT (BEAKER) (test 0.30 K/ L 0.04-0.54 gyqe=432) BASOPHILS ABSOLUTE COUNT (BEAKER) (test 0.08 K/ L 0.01-0.08 bvai=019) IMMATURE GRANULOCYTES-RELATIVE PERCENT (BEAKER) 1 % 0-1 (test jhor=6747) POCT-GLUCOSE [id number] 21:24:00 Test Item Value Reference Range Comments POC-GLUCOSE METER (BEAKER) 137 mg/dL 70-110 TESTED AT [address] (test ljzj=5023) [facility] [address] POCT-GLUCOSE [id number] 17:12:00 Test Item Value Reference Range Comments POC-GLUCOSE METER (BEAKER) 152 mg/dL 70-110 TESTED AT [address] (test dqdw=8568) [facility] [address] POCT-GLUCOSE [id number] 11:57:00 Test Item Value Reference Range Comments POC-GLUCOSE METER (BEAKER) 151 mg/dL 70-110 TESTED AT [address] (test ibhq=7087) [facility] [address] BASIC METABOLIC [id number] 07:24:00 Test Item Value Reference Range Comments SODIUM (BEAKER) (test 136 meq/L 136-145 nvvf=335) POTASSIUM (BEAKER) (test 4.8 meq/L 3.5-5.1 Specimen slightly ftur=312) hemolyzed CHLORIDE (BEAKER) (test 105 meq/L 98-107 rdza=107) CO2 (BEAKER) (test 20 meq/L 22-29 zwtf=264) BLOOD UREA NITROGEN 44 mg/dL 7-21 (BEAKER) (test zvnw=688) CREATININE (BEAKER) (test 1.65 mg/dL 0.57-1.25 Specimen slightly swiy=785) hemolyzed GLUCOSE RANDOM (BEAKER) 105 mg/dL 70-105 (test nfdg=196) CALCIUM (BEAKER) (test 8.7 mg/dL 8.4-10.2 djak=682) EGFR (BEAKER) (test 41 mL/min/1.73 sq m ESTIMATED GFR IS NOT ufyu=6074) ACCURATE CREATININE CLEARANCE IN PREDICTING GLOMERULAR FILTRATION RATE. ESTIMATED GFR IS NOT APPLICABLE FOR DIALYSIS PATIENTS. POCT-GLUCOSE [id number] 06:53:00 Test Item Value Reference Range Comments POC-GLUCOSE METER (BEAKER) 184 mg/dL 70-110 TESTED AT [address] (test iubl=6949) [place] [address] CBC W/PLT COUNT & AUTO [id number] 06:01:00 Test Item Value Reference Range Comments WHITE BLOOD CELL COUNT (BEAKER) (test xcvg=765) 9.2 K/ L 3.5-10.5 RED BLOOD CELL COUNT (BEAKER) (test ynxr=101) 3.58 M/ L 4.63-6.08 HEMOGLOBIN (BEAKER) (test mrgl=455) 9.8 GM/DL 13.7-17.5 HEMATOCRIT (BEAKER) (test vphp=308) 33.5 % 40.1-51.0 MEAN CORPUSCULAR VOLUME (BEAKER) (test iobb=580) 93.6 fL 79.0-92.2 MEAN CORPUSCULAR HEMOGLOBIN (BEAKER) (test 27.4 pg 25.7-32.2 vryj=714) MEAN CORPUSCULAR HEMOGLOBIN CONC (BEAKER) (test 29.3 GM/DL 32.3-36.5 xhif=008) RED CELL DISTRIBUTION WIDTH (BEAKER) (test 18.6 % 11.6-14.4 pchj=908) PLATELET COUNT (BEAKER) (test bswl=249) 466 K/CU MM 150-450 MEAN PLATELET VOLUME (BEAKER) (test kpii=158) 10.2 fL 9.4-12.4 NUCLEATED RED BLOOD CELLS (BEAKER) (test 0 /100 WBC 0-0 tpqb=317) NEUTROPHILS RELATIVE PERCENT (BEAKER) (test 71 % fzsv=693) LYMPHOCYTES RELATIVE PERCENT (BEAKER) (test 16 % zqlm=547) MONOCYTES RELATIVE PERCENT (BEAKER) (test 9 % lebq=362) EOSINOPHILS RELATIVE PERCENT (BEAKER) (test 2 % ywsy=638) BASOPHILS RELATIVE PERCENT (BEAKER) (test 1 % cdsm=264) NEUTROPHILS ABSOLUTE COUNT (BEAKER) (test 6.47 K/ L 1.78-5.38 qenm=788) LYMPHOCYTES ABSOLUTE COUNT (BEAKER) (test 1.46 K/ L 1.32-3.57 jpbf=972) MONOCYTES ABSOLUTE COUNT (BEAKER) (test 0.85 K/ L 0.30-0.82 ojov=889) EOSINOPHILS ABSOLUTE COUNT (BEAKER) (test 0.22 K/ L 0.04-0.54 qhay=255) BASOPHILS ABSOLUTE COUNT (BEAKER) (test 0.08 K/ L 0.01-0.08 nkrj=191) IMMATURE GRANULOCYTES-RELATIVE PERCENT (BEAKER) 1 % 0-1 (test tppf=4949) POCT-GLUCOSE [id number] 21:15:00 Test Item Value Reference Range Comments POC-GLUCOSE METER (BEAKER) 133 mg/dL 70-110 TESTED AT [address] (test cnzx=7665) [facility] [address] POCT-GLUCOSE [id number] 17:01:00 Test Item Value Reference Range Comments POC-GLUCOSE METER (BEAKER) 136 mg/dL 70-110 TESTED AT [address] (test oeim=6367) [facility] [address] POCT-GLUCOSE [id number] 12:12:00 Test Item Value Reference Range Comments POC-GLUCOSE METER (BEAKER) 158 mg/dL 70-110 TESTED AT [facility] [address] [facility] [facility] (test otyf=8879) [facility] [address] POCT-GLUCOSE [id number] 07:35:00 Test Item Value Reference Range Comments POC-GLUCOSE METER (BEAKER) 132 mg/dL 70-110 TESTED AT [facility] [address] [facility] (test mqja=4815) [facility] [address] BASIC METABOLIC [id number] 05:58:00 Test Item Value Reference Range Comments SODIUM (BEAKER) (test 135 meq/L 136-145 xyhm=596) POTASSIUM (BEAKER) (test 4.1 meq/L 3.5-5.1 itjy=442) CHLORIDE (BEAKER) (test 104 meq/L 98-107 dnih=142) CO2 (BEAKER) (test 22 meq/L 22-29 pvfm=735) BLOOD UREA NITROGEN 41 mg/dL 7-21 (BEAKER) (test pqtg=894) CREATININE (BEAKER) (test 1.60 mg/dL 0.57-1.25 upal=519) GLUCOSE RANDOM (BEAKER) 119 mg/dL 70-105 (test whxt=695) CALCIUM (BEAKER) (test 8.3 mg/dL 8.4-10.2 esxk=255) EGFR (BEAKER) (test 42 mL/min/1.73 sq m ESTIMATED GFR IS NOT tmnd=4837) ACCURATE CREATININE CLEARANCE IN PREDICTING GLOMERULAR FILTRATION RATE. ESTIMATED GFR IS NOT APPLICABLE FOR DIALYSIS PATIENTS. CBC W/PLT COUNT & AUTO [id number] 05:13:00 Test Item Value Reference Range Comments WHITE BLOOD CELL COUNT (BEAKER) (test szxk=047) 9.2 K/ L 3.5-10.5 RED BLOOD CELL COUNT (BEAKER) (test sdjy=178) 3.50 M/ L 4.63-6.08 HEMOGLOBIN (BEAKER) (test dslw=586) 9.6 GM/DL 13.7-17.5 HEMATOCRIT (BEAKER) (test bdos=836) 32.3 % 40.1-51.0 MEAN CORPUSCULAR VOLUME (BEAKER) (test ntqq=716) 92.3 fL 79.0-92.2 MEAN CORPUSCULAR HEMOGLOBIN (BEAKER) (test 27.4 pg 25.7-32.2 npxh=682) MEAN CORPUSCULAR HEMOGLOBIN CONC (BEAKER) (test 29.7 GM/DL 32.3-36.5 lnrp=637) RED CELL DISTRIBUTION WIDTH (BEAKER) (test 18.5 % 11.6-14.4 ktlv=524) PLATELET COUNT (BEAKER) (test xvsh=631) 447 K/CU MM 150-450 MEAN PLATELET VOLUME (BEAKER) (test upch=885) 10.0 fL 9.4-12.4 NUCLEATED RED BLOOD CELLS (BEAKER) (test 0 /100 WBC 0-0 vuqe=491) NEUTROPHILS RELATIVE PERCENT (BEAKER) (test 72 % ohyc=374) LYMPHOCYTES RELATIVE PERCENT (BEAKER) (test 14 % hglp=373) MONOCYTES RELATIVE PERCENT (BEAKER) (test 10 % yodv=696) EOSINOPHILS RELATIVE PERCENT (BEAKER) (test 3 % stqd=419) BASOPHILS RELATIVE PERCENT (BEAKER) (test 1 % pnlv=410) NEUTROPHILS ABSOLUTE COUNT (BEAKER) (test 6.64 K/ L 1.78-5.38 wisc=899) LYMPHOCYTES ABSOLUTE COUNT (BEAKER) (test 1.31 K/ L 1.32-3.57 xbec=393) MONOCYTES ABSOLUTE COUNT (BEAKER) (test 0.88 K/ L 0.30-0.82 bhze=708) EOSINOPHILS ABSOLUTE COUNT (BEAKER) (test 0.26 K/ L 0.04-0.54 zwjx=137) BASOPHILS ABSOLUTE COUNT (BEAKER) (test 0.05 K/ L 0.01-0.08 krqi=439) IMMATURE GRANULOCYTES-RELATIVE PERCENT (BEAKER) 1 % 0-1 (test lnrq=6306) POCT-GLUCOSE [id number] 21:04:00 Test Item Value Reference Range Comments POC-GLUCOSE METER (BEAKER) 146 mg/dL 70-110 TESTED AT [address] (test fifi=4219) [facility] [address] POCT-GLUCOSE [id number] 17:46:00 Test Item Value Reference Range Comments POC-GLUCOSE METER (BEAKER) 131 mg/dL 70-110 TESTED AT [address] (test lnhj=2519) [facility] [address] POCT-GLUCOSE [id number] 12:39:00 Test Item Value Reference Range Comments POC-GLUCOSE METER (BEAKER) 148 mg/dL 70-110 TESTED AT [facility] [address] (test erme=9602) [facility] [address] POCT-GLUCOSE [id number] 07:56:00 Test Item Value Reference Range Comments POC-GLUCOSE METER (BEAKER) 128 mg/dL 70-110 TESTED AT [facility] [address] [facility] (test qaya=7547) [facility] [address] BASIC METABOLIC [id number] 05:23:00 Test Item Value Reference Range Comments SODIUM (BEAKER) (test 136 meq/L 136-145 swlg=808) POTASSIUM (BEAKER) (test 4.1 meq/L 3.5-5.1 hwbh=607) CHLORIDE (BEAKER) (test 104 meq/L 98-107 mhpv=478) CO2 (BEAKER) (test 22 meq/L 22-29 xsgf=760) BLOOD UREA NITROGEN 38 mg/dL 7-21 (BEAKER) (test ohjb=222) CREATININE (BEAKER) (test 1.66 mg/dL 0.57-1.25 dwde=892) GLUCOSE RANDOM (BEAKER) 114 mg/dL 70-105 (test smjg=725) CALCIUM (BEAKER) (test 8.3 mg/dL 8.4-10.2 twck=148) EGFR (BEAKER) (test 41 mL/min/1.73 sq m ESTIMATED GFR IS NOT kolc=2514) ACCURATE CREATININE CLEARANCE IN PREDICTING GLOMERULAR FILTRATION RATE. ESTIMATED GFR IS NOT APPLICABLE FOR DIALYSIS PATIENTS. CBC W/PLT COUNT & AUTO [id number] 05:05:00 Test Item Value Reference Range Comments WHITE BLOOD CELL COUNT (BEAKER) (test vjfs=575) 9.7 K/ L 3.5-10.5 RED BLOOD CELL COUNT (BEAKER) (test aeuc=426) 3.44 M/ L 4.63-6.08 HEMOGLOBIN (BEAKER) (test efgz=556) 9.6 GM/DL 13.7-17.5 HEMATOCRIT (BEAKER) (test opbx=262) 32.2 % 40.1-51.0 MEAN CORPUSCULAR VOLUME (BEAKER) (test vzgo=900) 93.6 fL 79.0-92.2 MEAN CORPUSCULAR HEMOGLOBIN (BEAKER) (test 27.9 pg 25.7-32.2 wmqe=051) MEAN CORPUSCULAR HEMOGLOBIN CONC (BEAKER) (test 29.8 GM/DL 32.3-36.5 weyu=946) RED CELL DISTRIBUTION WIDTH (BEAKER) (test 18.3 % 11.6-14.4 nhtc=655) PLATELET COUNT (BEAKER) (test gech=765) 429 K/CU MM 150-450 MEAN PLATELET VOLUME (BEAKER) (test yvvr=194) 9.9 fL 9.4-12.4 NUCLEATED RED BLOOD CELLS (BEAKER) (test 0 /100 WBC 0-0 bglr=601) NEUTROPHILS RELATIVE PERCENT (BEAKER) (test 73 % gxwm=028) LYMPHOCYTES RELATIVE PERCENT (BEAKER) (test 14 % fcwi=436) MONOCYTES RELATIVE PERCENT (BEAKER) (test 10 % pudo=786) EOSINOPHILS RELATIVE PERCENT (BEAKER) (test 3 % tvjx=990) BASOPHILS RELATIVE PERCENT (BEAKER) (test 1 % gpcl=950) NEUTROPHILS ABSOLUTE COUNT (BEAKER) (test 7.02 K/ L 1.78-5.38 uujj=164) LYMPHOCYTES ABSOLUTE COUNT (BEAKER) (test 1.33 K/ L 1.32-3.57 fnqh=197) MONOCYTES ABSOLUTE COUNT (BEAKER) (test 0.92 K/ L 0.30-0.82 brqa=170) EOSINOPHILS ABSOLUTE COUNT (BEAKER) (test 0.25 K/ L 0.04-0.54 dkoj=215) BASOPHILS ABSOLUTE COUNT (BEAKER) (test 0.06 K/ L 0.01-0.08 pasb=782) IMMATURE GRANULOCYTES-RELATIVE PERCENT (BEAKER) 1 % 0-1 (test ppcd=4388) POCT-GLUCOSE [id number] 21:28:00 Test Item Value Reference Range Comments POC-GLUCOSE METER (BEAKER) 125 mg/dL 70-110 TESTED AT [address] (test hvbw=3187) [facility] [address] POCT-GLUCOSE [id number] 19:02:00 Test Item Value Reference Range Comments POC-GLUCOSE METER (BEAKER) 129 mg/dL 70-110 TESTED AT [address] (test tsvj=6777) [facility] [address] POCT-GLUCOSE [id number] 14:06:00 Test Item Value Reference Range Comments POC-GLUCOSE METER (BEAKER) 162 mg/dL 70-110 TESTED AT [facility] [address] [facility] (test ucnn=6500) [facility] [address] POCT-GLUCOSE [id number] 08:16:00 Test Item Value Reference Range Comments POC-GLUCOSE METER (BEAKER) 140 mg/dL 70-110 TESTED AT [facility] [address] [facility] (test kxlr=1759) [facility] [address] BASIC METABOLIC [id number] 05:17:00 Test Item Value Reference Range Comments SODIUM (BEAKER) (test 137 meq/L 136-145 fmza=791) POTASSIUM (BEAKER) (test 3.8 meq/L 3.5-5.1 nlfv=324) CHLORIDE (BEAKER) (test 104 meq/L 98-107 nuof=334) CO2 (BEAKER) (test 22 meq/L 22-29 huur=422) BLOOD UREA NITROGEN 37 mg/dL 7-21 (BEAKER) (test aasx=060) CREATININE (BEAKER) (test 1.81 mg/dL 0.57-1.25 xufu=804) GLUCOSE RANDOM (BEAKER) 118 mg/dL 70-105 (test hjzg=995) CALCIUM (BEAKER) (test 8.5 mg/dL 8.4-10.2 gvvi=956) EGFR (BEAKER) (test 37 mL/min/1.73 sq m ESTIMATED GFR IS NOT segb=2295) ACCURATE CREATININE CLEARANCE IN PREDICTING GLOMERULAR FILTRATION RATE. ESTIMATED GFR IS NOT APPLICABLE FOR DIALYSIS PATIENTS. CBC W/PLT COUNT & AUTO [id number] 04:55:00 Test Item Value Reference Range Comments WHITE BLOOD CELL COUNT (BEAKER) (test atvx=622) 10.4 K/ L 3.5-10.5 RED BLOOD CELL COUNT (BEAKER) (test xeza=651) 3.42 M/ L 4.63-6.08 HEMOGLOBIN (BEAKER) (test rtzb=150) 9.6 GM/DL 13.7-17.5 HEMATOCRIT (BEAKER) (test qnil=820) 31.9 % 40.1-51.0 MEAN CORPUSCULAR VOLUME (BEAKER) (test ahus=643) 93.3 fL 79.0-92.2 MEAN CORPUSCULAR HEMOGLOBIN (BEAKER) (test 28.1 pg 25.7-32.2 lezr=671) MEAN CORPUSCULAR HEMOGLOBIN CONC (BEAKER) (test 30.1 GM/DL 32.3-36.5 hbdo=509) RED CELL DISTRIBUTION WIDTH (BEAKER) (test 18.4 % 11.6-14.4 iqtj=135) PLATELET COUNT (BEAKER) (test jfuo=632) 453 K/CU MM 150-450 MEAN PLATELET VOLUME (BEAKER) (test mnhk=036) 10.0 fL 9.4-12.4 NUCLEATED RED BLOOD CELLS (BEAKER) (test 0 /100 WBC 0-0 monf=468) NEUTROPHILS RELATIVE PERCENT (BEAKER) (test 74 % wxtj=698) LYMPHOCYTES RELATIVE PERCENT (BEAKER) (test 13 % qyej=244) MONOCYTES RELATIVE PERCENT (BEAKER) (test 9 % dkjo=539) EOSINOPHILS RELATIVE PERCENT (BEAKER) (test 3 % kzws=715) BASOPHILS RELATIVE PERCENT (BEAKER) (test 0 % ryty=471) NEUTROPHILS ABSOLUTE COUNT (BEAKER) (test 7.63 K/ L 1.78-5.38 rmqc=086) LYMPHOCYTES ABSOLUTE COUNT (BEAKER) (test 1.35 K/ L 1.32-3.57 xboc=401) MONOCYTES ABSOLUTE COUNT (BEAKER) (test 0.97 K/ L 0.30-0.82 obgu=179) EOSINOPHILS ABSOLUTE COUNT (BEAKER) (test 0.27 K/ L 0.04-0.54 qvbt=110) BASOPHILS ABSOLUTE COUNT (BEAKER) (test 0.04 K/ L 0.01-0.08 romt=122) IMMATURE GRANULOCYTES-RELATIVE PERCENT (BEAKER) 1 % 0-1 (test vnln=9654) POCT-GLUCOSE [id number] 22:33:00 Test Item Value Reference Range Comments POC-GLUCOSE METER (BEAKER) 165 mg/dL 70-110 TESTED AT [address] (test rcoe=7604) [facility] [address] POCT-GLUCOSE [id number] 16:58:00 Test Item Value Reference Range Comments POC-GLUCOSE METER (BEAKER) 126 mg/dL 70-110 TESTED AT [address] (test ehuu=7143) [facility] [address] POCT-GLUCOSE [id number] 11:51:00 Test Item Value Reference Range Comments POC-GLUCOSE METER (BEAKER) 209 mg/dL 70-110 TESTED AT [facility] [address] (test pkzk=3205) [facility] [address] POCT-GLUCOSE [id number] 08:03:00 Test Item Value Reference Range Comments POC-GLUCOSE METER (BEAKER) 150 mg/dL 70-110 TESTED AT [facility] [address] (test fcbi=2540) [facility] [address] [id number] 07:03:00 Test Item Value Reference Range Comments MAGNESIUM (BEAKER) (test 2.1 mg/dL 1.6-2.6 Specimen slightly hemolyzed llru=352) BASIC METABOLIC [id number] 07:03:00 Test Item Value Reference Range Comments SODIUM (BEAKER) (test 135 meq/L 136-145 oxhf=098) POTASSIUM (BEAKER) (test 4.2 meq/L 3.5-5.1 Specimen slightly vhsh=946) hemolyzed CHLORIDE (BEAKER) (test 101 meq/L 98-107 fzey=256) CO2 (BEAKER) (test 24 meq/L 22-29 atdu=856) BLOOD UREA NITROGEN 35 mg/dL 7-21 (BEAKER) (test sgvw=735) CREATININE (BEAKER) (test 1.71 mg/dL 0.57-1.25 Specimen slightly fppm=609) hemolyzed GLUCOSE RANDOM (BEAKER) 125 mg/dL 70-105 (test kauq=035) CALCIUM (BEAKER) (test 8.4 mg/dL 8.4-10.2 jqng=921) EGFR (BEAKER) (test 39 mL/min/1.73 sq m ESTIMATED GFR IS NOT iqjc=7014) ACCURATE CREATININE CLEARANCE IN PREDICTING GLOMERULAR FILTRATION RATE. ESTIMATED GFR IS NOT APPLICABLE FOR DIALYSIS PATIENTS. CBC W/PLT COUNT & AUTO [id number] 06:22:00 Test Item Value Reference Range Comments WHITE BLOOD CELL COUNT (BEAKER) (test tvna=209) 9.8 K/ L 3.5-10.5 RED BLOOD CELL COUNT (BEAKER) (test nljo=024) 3.53 M/ L 4.63-6.08 HEMOGLOBIN (BEAKER) (test ahlq=025) 9.6 GM/DL 13.7-17.5 HEMATOCRIT (BEAKER) (test vfnp=793) 32.8 % 40.1-51.0 MEAN CORPUSCULAR VOLUME (BEAKER) (test aars=796) 92.9 fL 79.0-92.2 MEAN CORPUSCULAR HEMOGLOBIN (BEAKER) (test 27.2 pg 25.7-32.2 uodu=156) MEAN CORPUSCULAR HEMOGLOBIN CONC (BEAKER) (test 29.3 GM/DL 32.3-36.5 dnpe=752) RED CELL DISTRIBUTION WIDTH (BEAKER) (test 18.3 % 11.6-14.4 jtzp=848) PLATELET COUNT (BEAKER) (test ulob=670) 482 K/CU MM 150-450 MEAN PLATELET VOLUME (BEAKER) (test pydh=349) 9.9 fL 9.4-12.4 NUCLEATED RED BLOOD CELLS (BEAKER) (test 0 /100 WBC 0-0 ewau=367) NEUTROPHILS RELATIVE PERCENT (BEAKER) (test 72 % dkyt=533) LYMPHOCYTES RELATIVE PERCENT (BEAKER) (test 13 % elmw=178) MONOCYTES RELATIVE PERCENT (BEAKER) (test 10 % ahdv=222) EOSINOPHILS RELATIVE PERCENT (BEAKER) (test 3 % ycpw=984) BASOPHILS RELATIVE PERCENT (BEAKER) (test 1 % jcpm=801) NEUTROPHILS ABSOLUTE COUNT (BEAKER) (test 6.97 K/ L 1.78-5.38 yrdv=126) LYMPHOCYTES ABSOLUTE COUNT (BEAKER) (test 1.31 K/ L 1.32-3.57 dedj=809) MONOCYTES ABSOLUTE COUNT (BEAKER) (test 0.97 K/ L 0.30-0.82 gwxr=335) EOSINOPHILS ABSOLUTE COUNT (BEAKER) (test 0.31 K/ L 0.04-0.54 shec=130) BASOPHILS ABSOLUTE COUNT (BEAKER) (test 0.06 K/ L 0.01-0.08 iheh=577) IMMATURE GRANULOCYTES-RELATIVE PERCENT (BEAKER) 1 % 0-1 (test fylu=2576) ANAEROBIC [id number] 03:41:00 Test Item Value Reference Range Comments CULTURE (BEAKER) (test <1+ Anaerobic gram positive dkvl=9793) bacilliNon-viable for identification ANAEROBIC [id number] 03:38:00 Test Item Value Reference Range Comments CULTURE (BEAKER) (test motu=6272) 2+ Bacteroides fragilis group POCT-GLUCOSE [id number] 22:50:00 Test Item Value Reference Range Comments POC-GLUCOSE METER (BEAKER) 151 mg/dL 70-110 TESTED AT [address] (test zrsq=9666) [facility] [address] POCT-GLUCOSE [id number] 17:47:00 Test Item Value Reference Range Comments POC-GLUCOSE METER (BEAKER) 165 mg/dL 70-110 TESTED AT [address] (test taly=8974) [facility] [address] POCT-GLUCOSE [id number] 12:57:00 Test Item Value Reference Range Comments POC-GLUCOSE METER (BEAKER) 122 mg/dL 70-110 TESTED AT [address] (test yzvv=5063) [facility] [address] POCT-GLUCOSE [id number] 09:14:00 Test Item Value Reference Range Comments POC-GLUCOSE METER (BEAKER) 164 mg/dL 70-110 TESTED AT [address] (test xury=2622) [facility] [address] BASIC METABOLIC [id number] 04:07:00 Test Item Value Reference Range Comments SODIUM (BEAKER) (test 135 meq/L 136-145 awno=916) POTASSIUM (BEAKER) (test 3.7 meq/L 3.5-5.1 eeov=772) CHLORIDE (BEAKER) (test 101 meq/L 98-107 dctg=186) CO2 (BEAKER) (test 24 meq/L 22-29 yxjm=227) BLOOD UREA NITROGEN 36 mg/dL 7-21 (BEAKER) (test huvu=508) CREATININE (BEAKER) (test 1.68 mg/dL 0.57-1.25 oiio=461) GLUCOSE RANDOM (BEAKER) 112 mg/dL 70-105 (test vwes=383) CALCIUM (BEAKER) (test 8.2 mg/dL 8.4-10.2 zmpu=086) EGFR (BEAKER) (test 40 mL/min/1.73 sq m ESTIMATED GFR IS NOT yvar=8085) ACCURATE CREATININE CLEARANCE IN PREDICTING GLOMERULAR FILTRATION RATE. ESTIMATED GFR IS NOT APPLICABLE FOR DIALYSIS PATIENTS. CBC W/PLT COUNT & AUTO [id number] 03:48:00 Test Item Value Reference Range Comments WHITE BLOOD CELL COUNT (BEAKER) (test kyhs=531) 10.4 K/ L 3.5-10.5 RED BLOOD CELL COUNT (BEAKER) (test oahi=578) 3.37 M/ L 4.63-6.08 HEMOGLOBIN (BEAKER) (test fmpu=275) 9.4 GM/DL 13.7-17.5 HEMATOCRIT (BEAKER) (test pyyl=110) 31.1 % 40.1-51.0 MEAN CORPUSCULAR VOLUME (BEAKER) (test mzbt=933) 92.3 fL 79.0-92.2 MEAN CORPUSCULAR HEMOGLOBIN (BEAKER) (test 27.9 pg 25.7-32.2 oqwu=904) MEAN CORPUSCULAR HEMOGLOBIN CONC (BEAKER) (test 30.2 GM/DL 32.3-36.5 wnye=194) RED CELL DISTRIBUTION WIDTH (BEAKER) (test 17.9 % 11.6-14.4 vyxt=481) PLATELET COUNT (BEAKER) (test ivkl=027) 461 K/CU MM 150-450 MEAN PLATELET VOLUME (BEAKER) (test dzih=040) 9.5 fL 9.4-12.4 NUCLEATED RED BLOOD CELLS (BEAKER) (test 0 /100 WBC 0-0 bixa=708) NEUTROPHILS RELATIVE PERCENT (BEAKER) (test 72 % klje=821) LYMPHOCYTES RELATIVE PERCENT (BEAKER) (test 13 % bwiy=666) MONOCYTES RELATIVE PERCENT (BEAKER) (test 10 % apbr=244) EOSINOPHILS RELATIVE PERCENT (BEAKER) (test 3 % zsgu=091) BASOPHILS RELATIVE PERCENT (BEAKER) (test 1 % zzer=639) NEUTROPHILS ABSOLUTE COUNT (BEAKER) (test 7.51 K/ L 1.78-5.38 ihfc=952) LYMPHOCYTES ABSOLUTE COUNT (BEAKER) (test 1.35 K/ L 1.32-3.57 iioy=547) MONOCYTES ABSOLUTE COUNT (BEAKER) (test 1.03 K/ L 0.30-0.82 bjui=738) EOSINOPHILS ABSOLUTE COUNT (BEAKER) (test 0.32 K/ L 0.04-0.54 dvih=507) BASOPHILS ABSOLUTE COUNT (BEAKER) (test 0.05 K/ L 0.01-0.08 sgqr=504) IMMATURE GRANULOCYTES-RELATIVE PERCENT (BEAKER) 1 % 0-1 (test aajq=9826) BLOOD [id number] 00:00:00 Test Item Value Reference Range Comments CULTURE (BEAKER) (test dxzv=6341) No growth in 5 days BLOOD [id number] 00:00:00 Test Item Value Reference Range Comments CULTURE (BEAKER) (test sdlt=4964) No growth in 5 days POCT-GLUCOSE [id number] 21:35:00 Test Item Value Reference Range Comments POC-GLUCOSE METER (BEAKER) 135 mg/dL 70-110 TESTED AT [address] (test yhdi=7290) [facility] [address] POCT-GLUCOSE [id number] 17:27:00 Test Item Value Reference Range Comments POC-GLUCOSE METER (BEAKER) 192 mg/dL 70-110 TESTED AT [address] (test yygw=9996) [place] [id number] POCT-GLUCOSE [id number] 12:19:00 Test Item Value Reference Range Comments POC-GLUCOSE METER (BEAKER) 200 mg/dL 70-110 TESTED AT [address] (test uefe=1642) [place] [address] RAD, CHEST, 1 VIEW, NON [id number] 11:22:00Reason for exam:->shortness of breathFINAL REPORT Comparison: 09/06/2017 TECHNIQUE: Single view of the chest FINDINGS: Scattered atelectasis and/or scarring. There may be small left pleural effusion with adjacent airspace disease. Cardiac silhouette is prominent. IMPRESSION:. No significant interval change. Signed: Emerson Palacios MDReport Verified Date/Time: 09/07/2017 11:22:01 Reading Location: [address] Transitional Reading Room CBC W/PLT COUNT & AUTO [id number] 10:35:00 Test Item Value Reference Range Comments WHITE BLOOD CELL COUNT (BEAKER) (test gxxl=524) 12.5 K/ L 3.5-10.5 RED BLOOD CELL COUNT (BEAKER) (test meqd=836) 3.71 M/ L 4.63-6.08 HEMOGLOBIN (BEAKER) (test lrbm=837) 10.5 GM/DL 13.7-17.5 HEMATOCRIT (BEAKER) (test jjjy=742) 34.8 % 40.1-51.0 MEAN CORPUSCULAR VOLUME (BEAKER) (test ozsg=359) 93.8 fL 79.0-92.2 MEAN CORPUSCULAR HEMOGLOBIN (BEAKER) (test 28.3 pg 25.7-32.2 phtl=756) MEAN CORPUSCULAR HEMOGLOBIN CONC (BEAKER) (test 30.2 GM/DL 32.3-36.5 ixis=634) RED CELL DISTRIBUTION WIDTH (BEAKER) (test 18.2 % 11.6-14.4 ncfj=155) PLATELET COUNT (BEAKER) (test ssxg=935) 497 K/CU MM 150-450 MEAN PLATELET VOLUME (BEAKER) (test leoj=776) 9.6 fL 9.4-12.4 NUCLEATED RED BLOOD CELLS (BEAKER) (test 0 /100 WBC 0-0 buhx=854) NEUTROPHILS RELATIVE PERCENT (BEAKER) (test 79 % bglj=412) LYMPHOCYTES RELATIVE PERCENT (BEAKER) (test 9 % vqpi=015) MONOCYTES RELATIVE PERCENT (BEAKER) (test 7 % jnxc=135) EOSINOPHILS RELATIVE PERCENT (BEAKER) (test 2 % owte=235) BASOPHILS RELATIVE PERCENT (BEAKER) (test 0 % uksk=148) NEUTROPHILS ABSOLUTE COUNT (BEAKER) (test 9.94 K/ L 1.78-5.38 kwiw=322) LYMPHOCYTES ABSOLUTE COUNT (BEAKER) (test 1.16 K/ L 1.32-3.57 rihw=206) MONOCYTES ABSOLUTE COUNT (BEAKER) (test 0.93 K/ L 0.30-0.82 bwfx=329) EOSINOPHILS ABSOLUTE COUNT (BEAKER) (test 0.26 K/ L 0.04-0.54 itnb=086) BASOPHILS ABSOLUTE COUNT (BEAKER) (test 0.05 K/ L 0.01-0.08 kmdl=476) IMMATURE GRANULOCYTES-RELATIVE PERCENT (BEAKER) 1 % 0-1 (test dbuy=9344) POCT-GLUCOSE [id number] 07:25:00 Test Item Value Reference Range Comments POC-GLUCOSE METER (BEAKER) 139 mg/dL 70-110 TESTED AT [facility] [address] (test ffsk=7054) [facility] [address] [id number] 04:19:00 Test Item Value Reference Range Comments MAGNESIUM (BEAKER) (test 2.0 mg/dL 1.6-2.6 Specimen slightly hemolyzed ijox=983) [id number] 04:19:00 Test Item Value Reference Range Comments PHOSPHORUS (BEAKER) (test 3.7 mg/dL 2.3-4.7 Specimen slightly hemolyzed xieo=154) BASIC METABOLIC [id number] 04:19:00 Test Item Value Reference Range Comments SODIUM (BEAKER) (test 134 meq/L 136-145 bwst=234) POTASSIUM (BEAKER) (test 4.5 meq/L 3.5-5.1 Specimen slightly dysg=128) hemolyzed CHLORIDE (BEAKER) (test 102 meq/L 98-107 wgpz=351) CO2 (BEAKER) (test 16 meq/L 22-29 blwf=635) BLOOD UREA NITROGEN 40 mg/dL 7-21 (BEAKER) (test sics=968) CREATININE (BEAKER) (test 1.94 mg/dL 0.57-1.25 Specimen slightly onyd=975) hemolyzed GLUCOSE RANDOM (BEAKER) 107 mg/dL 70-105 (test elyj=934) CALCIUM (BEAKER) (test 8.5 mg/dL 8.4-10.2 uslg=574) EGFR (BEAKER) (test 34 mL/min/1.73 sq m ESTIMATED GFR IS NOT rhfb=9079) ACCURATE CREATININE CLEARANCE IN PREDICTING GLOMERULAR FILTRATION RATE. ESTIMATED GFR IS NOT APPLICABLE FOR DIALYSIS PATIENTS. POCT-GLUCOSE [id number] 21:41:00 Test Item Value Reference Range Comments POC-GLUCOSE METER (BEAKER) 148 mg/dL 70-110 TESTED AT [address] (test kssf=3604) [place] [address] VANCOMYCIN LEVEL, [id number] 13:28:00 Test Item Value Reference Range Comments VANCOMYCIN RANDOM (BEAKER) (test yzuy=758) 19.2 ug/mL Reference Range: No NormalsPOCT-GLUCOSE [id number] 12:59:00 Test Item Value Reference Range Comments POC-GLUCOSE METER (BEAKER) 129 mg/dL 70-110 TESTED AT [place] [id number] [facility] (test uzff=7024) [place] [id number] RAD, CHEST, 1 VIEW, NON [id number] 08:26:00Reason for exam:->shortness of breathFINAL REPORT HISTORY [...] Verified Date/Time : 09/06/2017 08:26:23 Reading Location: [address] Transitional Reading Room POCT- GLUCOSE [id number] 08:17:00 Test Item Value Reference Range Comments POC-GLUCOSE METER (BEAKER) 124 mg/dL 70-110 TESTED AT [facility] [address] (test ytrs=9810) [facility] [address] CBC W/PLT COUNT & AUTO [id number] 05:36:00 Test Item Value Reference Range Comments WHITE BLOOD CELL COUNT (BEAKER) (test uvqo=918) 10.3 K/ L 3.5-10.5 RED BLOOD CELL COUNT (BEAKER) (test egze=721) 3.41 M/ L 4.63-6.08 HEMOGLOBIN (BEAKER) (test mbyp=828) 9.4 GM/DL 13.7-17.5 HEMATOCRIT (BEAKER) (test uveo=147) 31.5 % 40.1-51.0 MEAN CORPUSCULAR VOLUME (BEAKER) (test mcit=194) 92.4 fL 79.0-92.2 MEAN CORPUSCULAR HEMOGLOBIN (BEAKER) (test 27.6 pg 25.7-32.2 rxjo=453) MEAN CORPUSCULAR HEMOGLOBIN CONC (BEAKER) (test 29.8 GM/DL 32.3-36.5 biwy=282) RED CELL DISTRIBUTION WIDTH (BEAKER) (test 18.5 % 11.6-14.4 zrbq=198) PLATELET COUNT (BEAKER) (test ucxg=875) 511 K/CU MM 150-450 MEAN PLATELET VOLUME (BEAKER) (test svcj=559) 9.9 fL 9.4-12.4 NUCLEATED RED BLOOD CELLS (BEAKER) (test 0 /100 WBC 0-0 fzsl=508) NEUTROPHILS RELATIVE PERCENT (BEAKER) (test 73 % hlnk=213) LYMPHOCYTES RELATIVE PERCENT (BEAKER) (test 12 % gxbn=200) MONOCYTES RELATIVE PERCENT (BEAKER) (test 10 % xwiy=183) EOSINOPHILS RELATIVE PERCENT (BEAKER) (test 2 % ektj=943) BASOPHILS RELATIVE PERCENT (BEAKER) (test 1 % efde=756) NEUTROPHILS ABSOLUTE COUNT (BEAKER) (test 7.50 K/ L 1.78-5.38 ctsq=621) LYMPHOCYTES ABSOLUTE COUNT (BEAKER) (test 1.20 K/ L 1.32-3.57 rjqc=267) MONOCYTES ABSOLUTE COUNT (BEAKER) (test 1.04 K/ L 0.30-0.82 aorp=520) EOSINOPHILS ABSOLUTE COUNT (BEAKER) (test 0.24 K/ L 0.04-0.54 ejut=316) BASOPHILS ABSOLUTE COUNT (BEAKER) (test 0.05 K/ L 0.01-0.08 xzgq=044) IMMATURE GRANULOCYTES-RELATIVE PERCENT (BEAKER) 3 % 0-1 (test kusc=1733) [id number] 05:28:00 Test Item Value Reference Range Comments PHOSPHORUS (BEAKER) (test pqfv=530) 3.4 mg/dL 2.3-4.7 [id number] 05:28:00 Test Item Value Reference Range Comments MAGNESIUM (BEAKER) (test dhvf=873) 2.0 mg/dL 1.6-2.6 BASIC METABOLIC [id number] 05:28:00 Test Item Value Reference Range Comments SODIUM (BEAKER) (test 137 meq/L 136-145 uqdf=170) POTASSIUM (BEAKER) (test 4.0 meq/L 3.5-5.1 qrcu=549) CHLORIDE (BEAKER) (test 97 meq/L 98-107 pjwc=952) CO2 (BEAKER) (test 28 meq/L 22-29 inof=903) BLOOD UREA NITROGEN 37 mg/dL 7-21 (BEAKER) (test ezbq=148) CREATININE (BEAKER) (test 2.02 mg/dL 0.57-1.25 ofir=892) GLUCOSE RANDOM (BEAKER) 117 mg/dL 70-105 (test ijfx=240) CALCIUM (BEAKER) (test 8.4 mg/dL 8.4-10.2 hqza=429) EGFR (BEAKER) (test 32 mL/min/1.73 sq m ESTIMATED GFR IS NOT myjf=2919) ACCURATE CREATININE CLEARANCE IN PREDICTING GLOMERULAR FILTRATION RATE. ESTIMATED GFR IS NOT APPLICABLE FOR DIALYSIS PATIENTS. [id number] 22:02:00 Test Item Value Reference Range Comments MAGNESIUM (BEAKER) (test nuwo=903) 2.1 mg/dL 1.6-2.6 BASIC METABOLIC [id number] 22:02:00 Test Item Value Reference Range Comments SODIUM (BEAKER) (test 136 meq/L 136-145 sglc=170) POTASSIUM (BEAKER) (test 4.3 meq/L 3.5-5.1 ycxs=183) CHLORIDE (BEAKER) (test 99 meq/L 98-107 fann=176) CO2 (BEAKER) (test 25 meq/L 22-29 zery=712) BLOOD UREA NITROGEN 36 mg/dL 7-21 (BEAKER) (test jofl=237) CREATININE (BEAKER) (test 1.95 mg/dL 0.57-1.25 ufzx=592) GLUCOSE RANDOM (BEAKER) 133 mg/dL 70-105 (test qxyi=211) CALCIUM (BEAKER) (test 8.3 mg/dL 8.4-10.2 fofa=118) EGFR (BEAKER) (test 34 mL/min/1.73 sq m ESTIMATED GFR IS NOT ebmq=7249) ACCURATE CREATININE CLEARANCE IN PREDICTING GLOMERULAR FILTRATION RATE. ESTIMATED GFR IS NOT APPLICABLE FOR DIALYSIS PATIENTS. POCT-GLUCOSE [id number] 21:42:00 Test Item Value Reference Range Comments POC-GLUCOSE METER (BEAKER) 125 mg/dL 70-110 TESTED AT [facility] [address] (test kswx=9904) [facility] [address] POCT-GLUCOSE [id number] 18:41:00 Test Item Value Reference Range Comments POC-GLUCOSE METER (BEAKER) 150 mg/dL 70-110 TESTED AT [place] [id number] [facility] (test ttbc=9332) [facility] [address] POCT-GLUCOSE [id number] 17:53:00 Test Item Value Reference Range Comments POC-GLUCOSE METER (BEAKER) 127 mg/dL 70-110 TESTED AT [facility] [address] [place] [address] (test vcjf=6119) [facility] [address] VANCOMYCIN LEVEL, [id number] 15:24:00 Test Item Value Reference Range Comments VANCOMYCIN TROUGH (BEAKER) (test wrgi=041) 27.4 ug/mL 10.0-20.0 Please draw trough 30 minutes prior to vancomycin dose on 09/05.BASIC METABOLIC [id number] 12:57:00 Test Item Value Reference Range Comments SODIUM (BEAKER) (test 136 meq/L 136-145 ofso=251) POTASSIUM (BEAKER) (test 3.9 meq/L 3.5-5.1 wipm=885) CHLORIDE (BEAKER) (test 100 meq/L 98-107 ttsu=850) CO2 (BEAKER) (test 24 meq/L 22-29 smqo=507) BLOOD UREA NITROGEN 34 mg/dL 7-21 (BEAKER) (test pobv=568) CREATININE (BEAKER) (test 2.22 mg/dL 0.57-1.25 dwzl=227) GLUCOSE RANDOM (BEAKER) 123 mg/dL 70-105 (test surb=066) CALCIUM (BEAKER) (test 8.4 mg/dL 8.4-10.2 hdfh=591) EGFR (BEAKER) (test 29 mL/min/1.73 sq m ESTIMATED GFR IS NOT pnfp=6567) ACCURATE CREATININE CLEARANCE IN PREDICTING GLOMERULAR FILTRATION RATE. ESTIMATED GFR IS NOT APPLICABLE FOR DIALYSIS PATIENTS. [id number] 12:46:00 Test Item Value Reference Range Comments MAGNESIUM (BEAKER) (test njkm=600) 2.1 mg/dL 1.6-2.6 POCT-GLUCOSE [id number] 09:45:00 Test Item Value Reference Range Comments POC-GLUCOSE METER (BEAKER) 134 mg/dL 70-110 TESTED AT [address] (test dbxy=9878) [facility] [address] RAD, CHEST, 1 VIEW, NON [id number] 08:44:00Reason for exam:->shortness of breathFINAL REPORT Chest [...] MDReport Verified Date/Time: 09/05/2017 08:44:03 Reading Location: [facility] Radiology Reading Room URINE [id number] 08:13:00 Test Item Value Reference Range Comments CULTURE (BEAKER) (test qfcv=6839) No growth GRAM STAIN RESULT (BEAKER) (test 1+ WBCs fhap=4790) GRAM STAIN RESULT (BEAKER) (test No organisms seen ewln=19441) SURGICALLY OBTAINED CULTURE + GRAM [id number] 08:04:00 Test Item Value Reference Range Comments CULTURE (BEAKER) (test oxmq=6141) No growth GRAM STAIN RESULT (BEAKER) (test <1+ WBCs chim=1763) GRAM STAIN RESULT (BEAKER) (test No organisms seen maxv=62396) SURGICALLY OBTAINED CULTURE + GRAM [id number] 08:03:00 Test Item Value Reference Range Comments CULTURE (BEAKER) (test xsic=8498) No growth GRAM STAIN RESULT (BEAKER) (test No WBCs zcwj=1395) GRAM STAIN RESULT (BEAKER) (test No organisms seen zxve=86906) CBC WITH PLATELET COUNT + MANUAL [id number] 04:36:00 Test Item Value Reference Range Comments WHITE BLOOD CELL COUNT (BEAKER) (test naui=613) 10.1 K/ L 3.5-10.5 RED BLOOD CELL COUNT (BEAKER) (test obvk=158) 3.10 M/ L 4.63-6.08 HEMOGLOBIN (BEAKER) (test xkua=900) 8.6 GM/DL 13.7-17.5 HEMATOCRIT (BEAKER) (test fqay=622) 27.8 % 40.1-51.0 MEAN CORPUSCULAR VOLUME (BEAKER) (test thfd=718) 89.7 fL 79.0-92.2 MEAN CORPUSCULAR HEMOGLOBIN (BEAKER) (test 27.7 pg 25.7-32.2 euki=989) MEAN CORPUSCULAR HEMOGLOBIN CONC (BEAKER) (test 30.9 GM/DL 32.3-36.5 nomc=365) RED CELL DISTRIBUTION WIDTH (BEAKER) (test 17.8 % 11.6-14.4 uwok=787) PLATELET COUNT (BEAKER) (test dnoq=755) 439 K/CU MM 150-450 MEAN PLATELET VOLUME (BEAKER) (test zsxm=689) 9.2 fL 9.4-12.4 NUCLEATED RED BLOOD CELLS (BEAKER) (test 1 /100 WBC 0-0 uhis=038) IMMATURE GRANULOCYTES-RELATIVE PERCENT (BEAKER) 3 % 0-1 (test xiot=9190) BASIC METABOLIC [id number] 03:37:00 Test Item Value Reference Range Comments SODIUM (BEAKER) (test 136 meq/L 136-145 xdrn=656) POTASSIUM (BEAKER) (test 3.8 meq/L 3.5-5.1 ujhp=627) CHLORIDE (BEAKER) (test 100 meq/L 98-107 wsfs=896) CO2 (BEAKER) (test 24 meq/L 22-29 zawx=815) BLOOD UREA NITROGEN 35 mg/dL 7-21 (BEAKER) (test oydc=626) CREATININE (BEAKER) (test 2.30 mg/dL 0.57-1.25 agce=188) GLUCOSE RANDOM (BEAKER) 118 mg/dL 70-105 (test mrls=667) CALCIUM (BEAKER) (test 8.1 mg/dL 8.4-10.2 ivgi=781) EGFR (BEAKER) (test 28 mL/min/1.73 sq m ESTIMATED GFR IS NOT jaec=0367) ACCURATE CREATININE CLEARANCE IN PREDICTING GLOMERULAR FILTRATION RATE. ESTIMATED GFR IS NOT APPLICABLE FOR DIALYSIS PATIENTS. [id number] 03:31:00 Test Item Value Reference Range Comments PHOSPHORUS (BEAKER) (test kshj=751) 3.6 mg/dL 2.3-4.7 [id number] 03:31:00 Test Item Value Reference Range Comments MAGNESIUM (BEAKER) (test ocik=197) 2.3 mg/dL 1.6-2.6 CBC W/PLT COUNT & AUTO [id number] 03:20:00 Test Item Value Reference Range Comments WHITE BLOOD CELL COUNT (BEAKER) (test cgpq=941) 10.1 K/ L 3.5-10.5 RED BLOOD CELL COUNT (BEAKER) (test qerv=835) 3.10 M/ L 4.63-6.08 HEMOGLOBIN (BEAKER) (test gghb=513) 8.6 GM/DL 13.7-17.5 HEMATOCRIT (BEAKER) (test wbti=792) 27.8 % 40.1-51.0 MEAN CORPUSCULAR VOLUME (BEAKER) (test umve=893) 89.7 fL 79.0-92.2 MEAN CORPUSCULAR HEMOGLOBIN (BEAKER) (test 27.7 pg 25.7-32.2 njgf=370) MEAN CORPUSCULAR HEMOGLOBIN CONC (BEAKER) (test 30.9 GM/DL 32.3-36.5 orfn=349) RED CELL DISTRIBUTION WIDTH (BEAKER) (test 17.8 % 11.6-14.4 hqfg=419) PLATELET COUNT (BEAKER) (test isms=074) 439 K/CU MM 150-450 MEAN PLATELET VOLUME (BEAKER) (test hikc=838) 9.2 fL 9.4-12.4 NUCLEATED RED BLOOD CELLS (BEAKER) (test 1 /100 WBC 0-0 ngtk=230) IMMATURE GRANULOCYTES-RELATIVE PERCENT (BEAKER) 3 % 0-1 (test ohfr=5383) BASIC METABOLIC [id number] 22:33:00 Test Item Value Reference Range Comments SODIUM (BEAKER) (test 135 meq/L 136-145 fnuu=112) POTASSIUM (BEAKER) (test 3.8 meq/L 3.5-5.1 eqxy=474) CHLORIDE (BEAKER) (test 101 meq/L 98-107 hktz=393) CO2 (BEAKER) (test 24 meq/L 22-29 zhae=875) BLOOD UREA NITROGEN 36 mg/dL 7-21 (BEAKER) (test hrpu=895) CREATININE (BEAKER) (test 2.26 mg/dL 0.57-1.25 hwrv=976) GLUCOSE RANDOM (BEAKER) 119 mg/dL 70-105 (test ijrs=151) CALCIUM (BEAKER) (test 7.9 mg/dL 8.4-10.2 dvfy=342) EGFR (BEAKER) (test 29 mL/min/1.73 sq m ESTIMATED GFR IS NOT gepu=3580) ACCURATE CREATININE CLEARANCE IN PREDICTING GLOMERULAR FILTRATION RATE. ESTIMATED GFR IS NOT APPLICABLE FOR DIALYSIS PATIENTS. [id number] 22:28:00 Test Item Value Reference Range Comments MAGNESIUM (BEAKER) (test kttk=357) 1.8 mg/dL 1.6-2.6 POCT-GLUCOSE [id number] 21:08:00 Test Item Value Reference Range Comments POC-GLUCOSE METER (BEAKER) 111 mg/dL 70-110 TESTED AT [address] (test hibk=1233) [place] [id number] CBC (HEMOGRAM ONLY)2017-09-04 19:09:00 Test Item Value Reference Range Comments WHITE BLOOD CELL COUNT (BEAKER) (test tvtr=083) 9.3 K/ L 3.5-10.5 RED BLOOD CELL COUNT (BEAKER) (test mzkw=040) 3.02 M/ L 4.63-6.08 HEMOGLOBIN (BEAKER) (test uyzv=978) 8.5 GM/DL 13.7-17.5 HEMATOCRIT (BEAKER) (test fhhx=717) 27.2 % 40.1-51.0 MEAN CORPUSCULAR VOLUME (BEAKER) (test aqlo=941) 90.1 fL 79.0-92.2 MEAN CORPUSCULAR HEMOGLOBIN (BEAKER) (test 28.1 pg 25.7-32.2 nrvf=450) MEAN CORPUSCULAR HEMOGLOBIN CONC (BEAKER) (test 31.3 GM/DL 32.3-36.5 milz=207) RED CELL DISTRIBUTION WIDTH (BEAKER) (test 17.8 % 11.6-14.4 nahc=467) PLATELET COUNT (BEAKER) (test ohqg=338) 463 K/CU MM 150-450 MEAN PLATELET VOLUME (BEAKER) (test sqzm=438) 9.3 fL 9.4-12.4 NUCLEATED RED BLOOD CELLS (BEAKER) (test 0 /100 WBC 0-0 riik=961) POCT-GLUCOSE [id number] 17:44:00 Test Item Value Reference Range Comments POC-GLUCOSE METER (BEAKER) 139 mg/dL 70-110 TESTED AT [address] (test vtjd=7904) [place] [id number] POCT-GLUCOSE [id number] 11:39:00 Test Item Value Reference Range Comments POC-GLUCOSE METER (BEAKER) 142 mg/dL 70-110 TESTED AT [facility] [address] (test fvvo=3315) [facility] [id number] BASIC METABOLIC [id number] 10:56:00 Test Item Value Reference Range Comments SODIUM (BEAKER) (test 135 meq/L 136-145 kdmz=404) POTASSIUM (BEAKER) (test 3.9 meq/L 3.5-5.1 jzrf=384) CHLORIDE (BEAKER) (test 102 meq/L 98-107 wwox=326) CO2 (BEAKER) (test 24 meq/L 22-29 iyoc=751) BLOOD UREA NITROGEN 37 mg/dL 7-21 (BEAKER) (test ushq=298) CREATININE (BEAKER) (test 2.53 mg/dL 0.57-1.25 qdpy=223) GLUCOSE RANDOM (BEAKER) 127 mg/dL 70-105 (test cjrf=969) CALCIUM (BEAKER) (test 7.8 mg/dL 8.4-10.2 cupo=210) EGFR (BEAKER) (test 25 mL/min/1.73 sq m ESTIMATED GFR IS NOT fgld=0836) ACCURATE CREATININE CLEARANCE IN PREDICTING GLOMERULAR FILTRATION RATE. ESTIMATED GFR IS NOT APPLICABLE FOR DIALYSIS PATIENTS. B-TYPE NATRIURETIC FACTOR (BNP)2017-09-04 10:54:00 Test Item Value Reference Range Comments B-TYPE NATRIURETIC PEPTIDE (BEAKER) (test 360 pg/mL 0-100 hmnp=040) [id number] 10:46:00 Test Item Value Reference Range Comments PHOSPHORUS (BEAKER) (test dunh=488) 4.1 mg/dL 2.3-4.7 [id number] 10:46:00 Test Item Value Reference Range Comments MAGNESIUM (BEAKER) (test kvjy=473) 2.1 mg/dL 1.6-2.6 RAD, CHEST, 1 VIEW, NON [id number] 08:32:00Reason for exam:->shortness of breathShould this be [...] MDReport Verified Date/Time: 09/04/2017 08:32:13 Reading Location: [facility] Radiology Reading Room POCT-GLUCOSE [id number] 08: 02:00 Test Item Value Reference Range Comments POC-GLUCOSE METER (BEAKER) 144 mg/dL 70-110 TESTED AT [facility] [address] (test oxee=8131) [facility] [address] BASIC METABOLIC [id number] 04:29:00 Test Item Value Reference Range Comments SODIUM (BEAKER) (test 133 meq/L 136-145 ucvp=401) POTASSIUM (BEAKER) (test 3.7 meq/L 3.5-5.1 kuak=756) CHLORIDE (BEAKER) (test 101 meq/L 98-107 lwdl=406) CO2 (BEAKER) (test 22 meq/L 22-29 gpem=128) BLOOD UREA NITROGEN 37 mg/dL 7-21 (BEAKER) (test fgrg=548) CREATININE (BEAKER) (test 2.65 mg/dL 0.57-1.25 xexb=385) GLUCOSE RANDOM (BEAKER) 136 mg/dL 70-105 (test duhi=769) CALCIUM (BEAKER) (test 7.6 mg/dL 8.4-10.2 jiiu=717) EGFR (BEAKER) (test 24 mL/min/1.73 sq m ESTIMATED GFR IS NOT aprc=5944) ACCURATE CREATININE CLEARANCE IN PREDICTING GLOMERULAR FILTRATION RATE. ESTIMATED GFR IS NOT APPLICABLE FOR DIALYSIS PATIENTS. [id number] 04:25:00 Test Item Value Reference Range Comments PHOSPHORUS (BEAKER) (test adlr=542) 4.2 mg/dL 2.3-4.7 [id number] 04:25:00 Test Item Value Reference Range Comments MAGNESIUM (BEAKER) (test iyjs=485) 2.0 mg/dL 1.6-2.6 CBC W/PLT COUNT & AUTO [id number] 03:30:00 Test Item Value Reference Range Comments WHITE BLOOD CELL COUNT (BEAKER) (test nbae=759) 9.1 K/ L 3.5-10.5 RED BLOOD CELL COUNT (BEAKER) (test ewtt=450) 2.54 M/ L 4.63-6.08 HEMOGLOBIN (BEAKER) (test tonc=484) 7.0 GM/DL 13.7-17.5 HEMATOCRIT (BEAKER) (test qnnk=388) 23.4 % 40.1-51.0 MEAN CORPUSCULAR VOLUME (BEAKER) (test wwwe=467) 92.1 fL 79.0-92.2 MEAN CORPUSCULAR HEMOGLOBIN (BEAKER) (test 27.6 pg 25.7-32.2 ebsg=518) MEAN CORPUSCULAR HEMOGLOBIN CONC (BEAKER) (test 29.9 GM/DL 32.3-36.5 bawf=384) RED CELL DISTRIBUTION WIDTH (BEAKER) (test 17.2 % 11.6-14.4 bdpv=475) PLATELET COUNT (BEAKER) (test tlbh=134) 407 K/CU MM 150-450 MEAN PLATELET VOLUME (BEAKER) (test tpxr=543) 9.2 fL 9.4-12.4 NUCLEATED RED BLOOD CELLS (BEAKER) (test 0 /100 WBC 0-0 ubce=249) NEUTROPHILS RELATIVE PERCENT (BEAKER) (test 75 % pniy=289) LYMPHOCYTES RELATIVE PERCENT (BEAKER) (test 10 % myxa=875) MONOCYTES RELATIVE PERCENT (BEAKER) (test 10 % zleo=304) EOSINOPHILS RELATIVE PERCENT (BEAKER) (test 1 % sbdb=603) BASOPHILS RELATIVE PERCENT (BEAKER) (test 0 % vpge=155) NEUTROPHILS ABSOLUTE COUNT (BEAKER) (test 6.78 K/ L 1.78-5.38 rhrx=092) LYMPHOCYTES ABSOLUTE COUNT (BEAKER) (test 0.92 K/ L 1.32-3.57 ftgb=611) MONOCYTES ABSOLUTE COUNT (BEAKER) (test 0.89 K/ L 0.30-0.82 xbum=169) EOSINOPHILS ABSOLUTE COUNT (BEAKER) (test 0.13 K/ L 0.04-0.54 vpzm=208) BASOPHILS ABSOLUTE COUNT (BEAKER) (test 0.03 K/ L 0.01-0.08 gyse=602) IMMATURE GRANULOCYTES-RELATIVE PERCENT (BEAKER) 3 % 0-1 (test zqka=3497) POCT-GLUCOSE [id number] 23:06:00 Test Item Value Reference Range Comments POC-GLUCOSE METER (BEAKER) 155 mg/dL 70-110 TESTED AT [address] (test koxk=4242) [place] [address] POCT-GLUCOSE [id number] 17:12:00 Test Item Value Reference Range Comments POC-GLUCOSE METER (BEAKER) 157 mg/dL 70-110 TESTED AT [address] (test lvbz=7913) [place] [address] SPIN/CONCENTRATION [id number] 16:25:00 Test Item Value Reference Range Comments CONCENTRATION CHARGED (BEAKER) (test tdlp=7221) Done POCT-GLUCOSE [id number] 12:16:00 Test Item Value Reference Range Comments POC-GLUCOSE METER (BEAKER) 163 mg/dL 70-110 TESTED AT [address] (test ytea=7536) [place] [address] [id number] 11:44:00 Test Item Value Reference Range Comments FERRITIN (BEAKER) (test abdw=396) 400 ng/mL 5-275 IRON, TIBC, % SAT. (WITHOUT FERRITIN)2017-09-03 11:24:00 Test Item Value Reference Range Comments IRON (BEAKER) (test knyw=914) 38 ug/dL 40-160 TOTAL IRON BINDING CAPACITY (BEAKER) (test 168 ug/dL 250-450 nrqw=349) IRON % SATURATION (2) (BEAKER) (test ggay=4749) 23 % 20-55 RETICULOCYTE [id number] 11:10:00 Test Item Value Reference Range Comments RETICULOCYTE COUNT PCT (BEAKER) (test fuhx=421) 3.2 % 0.5-1.8 RAD, CHEST, 1 VIEW, NON [id number] 11:05:00Reason for exam:->shortness of breathFINAL REPORT Chest [...] MDReport Verified Date/Time: 09/03/2017 11:05:13 Reading Location: [facility] Radiology Reading Room CB (HEMOGRAM ONLY)2017-09-03 10:57:00 Test Item Value Reference Range Comments WHITE BLOOD CELL COUNT (BEAKER) (test ssfb=596) 9.9 K/ L 3.5-10.5 RED BLOOD CELL COUNT (BEAKER) (test mqfk=790) 2.71 M/ L 4.63-6.08 HEMOGLOBIN (BEAKER) (test qffl=314) 7.6 GM/DL 13.7-17.5 HEMATOCRIT (BEAKER) (test wptd=431) 25.6 % 40.1-51.0 MEAN CORPUSCULAR VOLUME (BEAKER) (test mbgv=074) 94.5 fL 79.0-92.2 MEAN CORPUSCULAR HEMOGLOBIN (BEAKER) (test 28.0 pg 25.7-32.2 xogd=005) MEAN CORPUSCULAR HEMOGLOBIN CONC (BEAKER) (test 29.7 GM/DL 32.3-36.5 flwx=548) RED CELL DISTRIBUTION WIDTH (BEAKER) (test 16.9 % 11.6-14.4 hmrq=461) PLATELET COUNT (BEAKER) (test oulh=290) 438 K/CU MM 150-450 MEAN PLATELET VOLUME (BEAKER) (test gzdi=361) 9.9 fL 9.4-12.4 NUCLEATED RED BLOOD CELLS (BEAKER) (test 0 /100 WBC 0-0 iait=160) HEMOGLOBIN AND [id number] 06:14:00 Test Item Value Reference Range Comments HEMOGLOBIN (BEAKER) (test oley=413) 6.7 GM/DL 13.7-17.5 HEMATOCRIT (BEAKER) (test fqmz=966) 23.0 % 40.1-51.0 POCT-GLUCOSE [id number] 06:08:00 Test Item Value Reference Range Comments POC-GLUCOSE METER (BEAKER) 155 mg/dL 70-110 TESTED AT [facility] [address] (test zvcp=5941) [facility] [address] BASIC METABOLIC [id number] 03:44:00 Test Item Value Reference Range Comments SODIUM (BEAKER) (test 136 meq/L 136-145 ujys=376) POTASSIUM (BEAKER) (test 4.4 meq/L 3.5-5.1 okhd=463) CHLORIDE (BEAKER) (test 104 meq/L 98-107 vyuz=143) CO2 (BEAKER) (test 21 meq/L 22-29 agnn=984) BLOOD UREA NITROGEN 31 mg/dL 7-21 (BEAKER) (test elhq=821) CREATININE (BEAKER) (test 2.73 mg/dL 0.57-1.25 dnig=580) GLUCOSE RANDOM (BEAKER) 156 mg/dL 70-105 (test jblz=710) CALCIUM (BEAKER) (test 7.7 mg/dL 8.4-10.2 yogg=246) EGFR (BEAKER) (test 23 mL/min/1.73 sq m ESTIMATED GFR IS NOT rvzj=1412) ACCURATE CREATININE CLEARANCE IN PREDICTING GLOMERULAR FILTRATION RATE. ESTIMATED GFR IS NOT APPLICABLE FOR DIALYSIS PATIENTS. VANCOMYCIN LEVEL, [id number] 03:41:00 Test Item Value Reference Range Comments VANCOMYCIN RANDOM (BEAKER) (test lizf=020) 16.7 ug/mL Reference Range: No [id number] 03:40:00 Test Item Value Reference Range Comments PHOSPHORUS (BEAKER) (test kfwp=832) 5.2 mg/dL 2.3-4.7 [id number] 03:40:00 Test Item Value Reference Range Comments MAGNESIUM (BEAKER) (test mohj=747) 1.7 mg/dL 1.6-2.6 CBC W/PLT COUNT & AUTO [id number] 03:39:00 Test Item Value Reference Range Comments WHITE BLOOD CELL COUNT (BEAKER) (test dtik=882) 8.6 K/ L 3.5-10.5 RED BLOOD CELL COUNT (BEAKER) (test ojvu=735) 2.50 M/ L 4.63-6.08 HEMOGLOBIN (BEAKER) (test dcox=553) 6.9 GM/DL 13.7-17.5 HEMATOCRIT (BEAKER) (test ykil=145) 23.6 % 40.1-51.0 MEAN CORPUSCULAR VOLUME (BEAKER) (test sfst=552) 94.4 fL 79.0-92.2 MEAN CORPUSCULAR HEMOGLOBIN (BEAKER) (test 27.6 pg 25.7-32.2 awfl=802) MEAN CORPUSCULAR HEMOGLOBIN CONC (BEAKER) (test 29.2 GM/DL 32.3-36.5 jsbg=260) RED CELL DISTRIBUTION WIDTH (BEAKER) (test 17.2 % 11.6-14.4 sckp=406) PLATELET COUNT (BEAKER) (test xwib=474) 454 K/CU MM 150-450 MEAN PLATELET VOLUME (BEAKER) (test pdxw=092) 10.0 fL 9.4-12.4 NUCLEATED RED BLOOD CELLS (BEAKER) (test 0 /100 WBC 0-0 qvow=980) NEUTROPHILS RELATIVE PERCENT (BEAKER) (test 78 % lnyr=095) LYMPHOCYTES RELATIVE PERCENT (BEAKER) (test 11 % elip=000) MONOCYTES RELATIVE PERCENT (BEAKER) (test 10 % ggsn=584) EOSINOPHILS RELATIVE PERCENT (BEAKER) (test 0 % rafr=175) BASOPHILS RELATIVE PERCENT (BEAKER) (test 0 % xfvt=484) NEUTROPHILS ABSOLUTE COUNT (BEAKER) (test 6.71 K/ L 1.78-5.38 dqxd=835) LYMPHOCYTES ABSOLUTE COUNT (BEAKER) (test 0.93 K/ L 1.32-3.57 tknl=359) MONOCYTES ABSOLUTE COUNT (BEAKER) (test 0.83 K/ L 0.30-0.82 naxa=960) EOSINOPHILS ABSOLUTE COUNT (BEAKER) (test 0.02 K/ L 0.04-0.54 hcib=046) BASOPHILS ABSOLUTE COUNT (BEAKER) (test 0.01 K/ L 0.01-0.08 edrq=587) IMMATURE GRANULOCYTES-RELATIVE PERCENT (BEAKER) 1 % 0-1 (test ukyz=8409) POCT-GLUCOSE [id number] 23:21:00 Test Item Value Reference Range Comments POC-GLUCOSE METER (BEAKER) 168 mg/dL 70-110 TESTED AT [facility] [address] (test fghh=3815) [facility] [address] URINALYSIS W/ [id number] 22:42:00 Test Item Value Reference Range Comments COLOR (BEAKER) (test vjth=830) Yellow CLARITY (BEAKER) (test khyw=839) Hazy SPECIFIC GRAVITY UA (BEAKER) (test txdj=389) 1.018 1.001-1.035 PH UA (BEAKER) (test edvv=498) 5.0 5.0-8.0 PROTEIN UA (BEAKER) (test siim=952) 50 mg/dL Negative GLUCOSE UA (BEAKER) (test avmg=409) Negative Negative KETONES UA (BEAKER) (test bqea=272) Negative Negative BILIRUBIN UA (BEAKER) (test oeby=328) Negative Negative BLOOD UA (BEAKER) (test ayyr=427) Negative Negative NITRITE UA (BEAKER) (test fcus=613) Negative Negative LEUKOCYTE ESTERASE UA (BEAKER) (test wmhi=979) Large Negative UROBILINOGEN UA (BEAKER) (test eclf=630) 2.0 mg/dL 0.2-1.0 RBC UA (BEAKER) (test mziu=739) 0 /HPF WBC UA (BEAKER) (test tjre=907) 45 /HPF MUCUS (BEAKER) (test lbaj=5728) Occasional SQUAMOUS EPITHELIAL (BEAKER) (test gdko=844) 1 /HPF SOURCE(BEAKER) (test zkgw=9432) BASIC METABOLIC [id number] 22:37:00 Test Item Value Reference Range Comments SODIUM (BEAKER) (test 135 meq/L 136-145 yzzf=333) POTASSIUM (BEAKER) (test 4.6 meq/L 3.5-5.1 gllg=899) CHLORIDE (BEAKER) (test 105 meq/L 98-107 mcyf=659) CO2 (BEAKER) (test 21 meq/L 22-29 cafo=767) BLOOD UREA NITROGEN 30 mg/dL 7-21 (BEAKER) (test sgnr=114) CREATININE (BEAKER) (test 2.40 mg/dL 0.57-1.25 yyna=255) GLUCOSE RANDOM (BEAKER) 158 mg/dL 70-105 (test ibso=386) CALCIUM (BEAKER) (test 7.8 mg/dL 8.4-10.2 wapa=680) EGFR (BEAKER) (test 27 mL/min/1.73 sq m ESTIMATED GFR IS NOT pjwf=3492) ACCURATE CREATININE CLEARANCE IN PREDICTING GLOMERULAR FILTRATION RATE. ESTIMATED GFR IS NOT APPLICABLE FOR DIALYSIS PATIENTS. [id number] 22:34:00 Test Item Value Reference Range Comments MAGNESIUM (BEAKER) (test mmtu=488) 1.3 mg/dL 1.6-2.6 LACTIC ACID, ARTERIAL, WHOLE [id number] 22:30:00 Test Item Value Reference Range Comments LACTATE BLOOD ARTERIAL (2) (BEAKER) (test 1.9 mmol/L 0.5-2.2 obut=3848) Effective 09/27/2015: Units/Reference Range ChangeNew: 0.5-2.2 mmol/L Previous: 5 -20 mg/dLHEPATIC FUNCTION [id number] 20:18:00 Test Item Value Reference Range Comments TOTAL PROTEIN (BEAKER) (test ejvk=527) 6.2 gm/dL 6.0-8.3 ALBUMIN (BEAKER) (test xbft=8978) 2.4 g/dL 3.5-5.0 BILIRUBIN TOTAL (BEAKER) (test lmcj=534) 0.5 mg/dL 0.2-1.2 BILIRUBIN DIRECT (BEAKER) (test zoob=453) 0.3 mg/dL 0.1-0.5 ALKALINE PHOSPHATASE (BEAKER) (test myvn=714) 82 U/L 40-150 AST (SGOT) (BEAKER) (test jlut=359) 36 U/L 5-34 ALT (SGPT) (BEAKER) (test memp=895) 29 U/L 6-55 LACTIC ACID, VENOUS, WHOLE [id number] 20:13:00 Test Item Value Reference Range Comments LACTATE BLOOD VENOUS (2) (BEAKER) (test 2.0 mmol/L 0.5-2.2 veia=9423) Effective 09/27/2015: Units/Reference Range ChangeNew: 0.5-2.2 mmol/L Previous: 5 -20 mg/dLBASIC METABOLIC [id number] 15:01:00 Test Item Value Reference Range Comments SODIUM (BEAKER) (test 135 meq/L 136-145 qjby=779) POTASSIUM (BEAKER) (test 4.3 meq/L 3.5-5.1 ijyi=180) CHLORIDE (BEAKER) (test 102 meq/L 98-107 ardm=235) CO2 (BEAKER) (test 22 meq/L 22-29 anfp=879) BLOOD UREA NITROGEN 27 mg/dL 7-21 (BEAKER) (test vxfu=040) CREATININE (BEAKER) (test 1.97 mg/dL 0.57-1.25 mswb=660) GLUCOSE RANDOM (BEAKER) 185 mg/dL 70-105 (test mwrt=478) CALCIUM (BEAKER) (test 7.9 mg/dL 8.4-10.2 vnbd=614) EGFR (BEAKER) (test 33 mL/min/1.73 sq m ESTIMATED GFR IS NOT ubzi=8582) ACCURATE CREATININE CLEARANCE IN PREDICTING GLOMERULAR FILTRATION RATE. ESTIMATED GFR IS NOT APPLICABLE FOR DIALYSIS PATIENTS. [id number] 14:58:00 Test Item Value Reference Range Comments PHOSPHORUS (BEAKER) (test pkwk=142) 5.2 mg/dL 2.3-4.7 [id number] 14:58:00 Test Item Value Reference Range Comments MAGNESIUM (BEAKER) (test amaq=700) 1.4 mg/dL 1.6-2.6 BASIC METABOLIC [id number] 14:49:00 Test Item Value Reference Range Comments SODIUM (BEAKER) (test 134 meq/L 136-145 biba=892) POTASSIUM (BEAKER) (test 4.4 meq/L 3.5-5.1 akkd=031) CHLORIDE (BEAKER) (test 102 meq/L 98-107 ychw=717) CO2 (BEAKER) (test 22 meq/L 22-29 ggno=491) BLOOD UREA NITROGEN 27 mg/dL 7-21 (BEAKER) (test ppya=099) CREATININE (BEAKER) (test 1.96 mg/dL 0.57-1.25 iltw=177) GLUCOSE RANDOM (BEAKER) 184 mg/dL 70-105 (test ocja=460) CALCIUM (BEAKER) (test 7.9 mg/dL 8.4-10.2 fwee=648) EGFR (BEAKER) (test 34 mL/min/1.73 sq m ESTIMATED GFR IS NOT bttm=0678) ACCURATE CREATININE CLEARANCE IN PREDICTING GLOMERULAR FILTRATION RATE. ESTIMATED GFR IS NOT APPLICABLE FOR DIALYSIS PATIENTS. LACTIC ACID, ARTERIAL, WHOLE [id number] 14:35:00 Test Item Value Reference Range Comments LACTATE BLOOD ARTERIAL (2) (BEAKER) (test 2.6 mmol/L 0.5-2.2 cxhx=9750) Effective 09/27/2015: Units/Reference Range ChangeNew: 0.5-2.2 mmol/L Previous: 5 -20 mg/dLPROTHROMBIN [id number] 14:27:00 Test Item Value Reference Range Comments PROTIME (BEAKER) (test flcv=566) 21.3 seconds 11.7-14.7 INR (BEAKER) (test jakd=655) 1.8 <=5.9 RECOMMENDED COUMADIN/WARFARIN INR THERAPY RANGESSTANDARD DOSE: 2.0 - 3.0 Includes: PROPHYLAXIS forvenous thrombosis, systemic embolization; TREATMENT for venous thrombosis and/or pulmonary embolus.HIGH RISK: Target INR is 2.5-3.5 for patients with mechanical heart valves.[id number] 14:27:00 Test Item Value Reference Range Comments PARTIAL THROMBOPLASTIN TIME (BEAKER) (test 37.6 seconds 22.5-36.0 zlui=396) CBC W/PLT COUNT & AUTO [id number] 14:20:00 Test Item Value Reference Range Comments WHITE BLOOD CELL COUNT (BEAKER) (test vglj=276) 13.7 K/ L 3.5-10.5 RED BLOOD CELL COUNT (BEAKER) (test gzgu=039) 3.16 M/ L 4.63-6.08 HEMOGLOBIN (BEAKER) (test zrmc=330) 8.8 GM/DL 13.7-17.5 HEMATOCRIT (BEAKER) (test fmee=495) 29.9 % 40.1-51.0 MEAN CORPUSCULAR VOLUME (BEAKER) (test titz=439) 94.6 fL 79.0-92.2 MEAN CORPUSCULAR HEMOGLOBIN (BEAKER) (test 27.8 pg 25.7-32.2 jxcw=952) MEAN CORPUSCULAR HEMOGLOBIN CONC (BEAKER) (test 29.4 GM/DL 32.3-36.5 hxts=161) RED CELL DISTRIBUTION WIDTH (BEAKER) (test 16.8 % 11.6-14.4 mwlz=439) PLATELET COUNT (BEAKER) (test pede=426) 583 K/CU MM 150-450 MEAN PLATELET VOLUME (BEAKER) (test cjwk=359) 10.0 fL 9.4-12.4 NUCLEATED RED BLOOD CELLS (BEAKER) (test 0 /100 WBC 0-0 wnjk=002) NEUTROPHILS RELATIVE PERCENT (BEAKER) (test 80 % clts=820) LYMPHOCYTES RELATIVE PERCENT (BEAKER) (test 7 % mrve=143) MONOCYTES RELATIVE PERCENT (BEAKER) (test 11 % wqqh=463) EOSINOPHILS RELATIVE PERCENT (BEAKER) (test 0 % pwst=085) BASOPHILS RELATIVE PERCENT (BEAKER) (test 0 % wneo=281) NEUTROPHILS ABSOLUTE COUNT (BEAKER) (test 11.04 K/ L 1.78-5.38 lcfb=432) LYMPHOCYTES ABSOLUTE COUNT (BEAKER) (test 0.93 K/ L 1.32-3.57 mdmd=689) MONOCYTES ABSOLUTE COUNT (BEAKER) (test 1.55 K/ L 0.30-0.82 kjiw=985) EOSINOPHILS ABSOLUTE COUNT (BEAKER) (test 0.01 K/ L 0.04-0.54 rbuy=739) BASOPHILS ABSOLUTE COUNT (BEAKER) (test 0.01 K/ L 0.01-0.08 jleb=602) IMMATURE GRANULOCYTES-RELATIVE PERCENT (BEAKER) 1 % 0-1 (test ekyf=9740) CBC W/PLT COUNT & AUTO [id number] 14:15:00 Test Item Value Reference Range Comments WHITE BLOOD CELL COUNT (BEAKER) (test qhju=262) 13.8 K/ L 3.5-10.5 RED BLOOD CELL COUNT (BEAKER) (test droq=564) 3.22 M/ L 4.63-6.08 HEMOGLOBIN (BEAKER) (test klps=229) 8.9 GM/DL 13.7-17.5 HEMATOCRIT (BEAKER) (test jaxj=692) 30.5 % 40.1-51.0 MEAN CORPUSCULAR VOLUME (BEAKER) (test qzng=253) 94.7 fL 79.0-92.2 MEAN CORPUSCULAR HEMOGLOBIN (BEAKER) (test 27.6 pg 25.7-32.2 jaxz=669) MEAN CORPUSCULAR HEMOGLOBIN CONC (BEAKER) (test 29.2 GM/DL 32.3-36.5 ropf=706) RED CELL DISTRIBUTION WIDTH (BEAKER) (test 16.9 % 11.6-14.4 hedf=870) PLATELET COUNT (BEAKER) (test jiep=378) 578 K/CU MM 150-450 MEAN PLATELET VOLUME (BEAKER) (test bacb=736) 9.9 fL 9.4-12.4 NUCLEATED RED BLOOD CELLS (BEAKER) (test 0 /100 WBC 0-0 qbdd=987) NEUTROPHILS RELATIVE PERCENT (BEAKER) (test 82 % lnoy=845) LYMPHOCYTES RELATIVE PERCENT (BEAKER) (test 6 % tjou=453) MONOCYTES RELATIVE PERCENT (BEAKER) (test 11 % rtct=402) EOSINOPHILS RELATIVE PERCENT (BEAKER) (test 0 % hrpb=414) BASOPHILS RELATIVE PERCENT (BEAKER) (test 0 % gwht=685) NEUTROPHILS ABSOLUTE COUNT (BEAKER) (test 11.24 K/ L 1.78-5.38 pflb=738) LYMPHOCYTES ABSOLUTE COUNT (BEAKER) (test 0.86 K/ L 1.32-3.57 osjw=413) MONOCYTES ABSOLUTE COUNT (BEAKER) (test 1.49 K/ L 0.30-0.82 wpkb=843) EOSINOPHILS ABSOLUTE COUNT (BEAKER) (test 0.01 K/ L 0.04-0.54 dpqq=247) BASOPHILS ABSOLUTE COUNT (BEAKER) (test 0.02 K/ L 0.01-0.08 ihyg=415) IMMATURE GRANULOCYTES-RELATIVE PERCENT (BEAKER) 1 % 0-1 (test ktqj=8093) POCT-GLUCOSE [id number] 13:21:00 Test Item Value Reference Range Comments POC-GLUCOSE METER (BEAKER) 208 mg/dL 70-110 TESTED AT [address] (test olig=6790) [facility] [address] RAD, CHEST, 1 VIEW, NON [id number] 11:57:00Reason for exam:->SOB, CHFFINAL REPORT Chest one [...] Location: [facility] Reading Room POCT-GLUCOSE [id number] 06:05:00 Test Item Value Reference Range Comments POC-GLUCOSE METER (BEAKER) 141 mg/dL 70-110 TESTED AT [address] (test ymsl=5652) [facility] [address] [id number] 06:04:00 Test Item Value Reference Range Comments PREALBUMIN (BEAKER) (test jeot=439) 13 mg/dL 14-45 POCT-GLUCOSE [id number] 20:43:00 Test Item Value Reference Range Comments POC-GLUCOSE METER (BEAKER) 179 mg/dL 70-110 TESTED AT [address] (test nroo=0473) [facility] [address] POCT-GLUCOSE [id number] 16:57:00 Test Item Value Reference Range Comments POC-GLUCOSE METER (BEAKER) 215 mg/dL 70-110 TESTED AT [address] (test qtya=9266) [facility] [address] POCT-GLUCOSE [id number] 11:18:00 Test Item Value Reference Range Comments POC-GLUCOSE METER (BEAKER) 159 mg/dL 70-110 TESTED AT [address] (test ujdq=2455) [facility] [address] BASIC METABOLIC [id number] 07:33:00 Test Item Value Reference Range Comments SODIUM (BEAKER) (test 139 meq/L 136-145 ctkv=310) POTASSIUM (BEAKER) (test 4.1 meq/L 3.5-5.1 plyl=116) CHLORIDE (BEAKER) (test 104 meq/L 98-107 uurr=461) CO2 (BEAKER) (test 25 meq/L 22-29 zzid=196) BLOOD UREA NITROGEN 20 mg/dL 7-21 (BEAKER) (test xxdc=892) CREATININE (BEAKER) (test 1.26 mg/dL 0.57-1.25 bvsv=887) GLUCOSE RANDOM (BEAKER) 99 mg/dL 70-105 (test czuh=496) CALCIUM (BEAKER) (test 8.5 mg/dL 8.4-10.2 vhlz=647) EGFR (BEAKER) (test 56 mL/min/1.73 sq m ESTIMATED GFR IS NOT lzgq=4813) ACCURATE CREATININE CLEARANCE IN PREDICTING GLOMERULAR FILTRATION RATE. ESTIMATED GFR IS NOT APPLICABLE FOR DIALYSIS PATIENTS. CBC (HEMOGRAM ONLY)2017-09-01 06:13:00 Test Item Value Reference Range Comments WHITE BLOOD CELL COUNT (BEAKER) (test yptn=365) 6.4 K/ L 3.5-10.5 RED BLOOD CELL COUNT (BEAKER) (test jkyg=271) 3.42 M/ L 4.63-6.08 HEMOGLOBIN (BEAKER) (test qunu=586) 9.8 GM/DL 13.7-17.5 HEMATOCRIT (BEAKER) (test ohjx=741) 32.8 % 40.1-51.0 MEAN CORPUSCULAR VOLUME (BEAKER) (test lzed=011) 95.9 fL 79.0-92.2 MEAN CORPUSCULAR HEMOGLOBIN (BEAKER) (test 28.7 pg 25.7-32.2 pvcf=497) MEAN CORPUSCULAR HEMOGLOBIN CONC (BEAKER) (test 29.9 GM/DL 32.3-36.5 qxwy=565) RED CELL DISTRIBUTION WIDTH (BEAKER) (test 16.7 % 11.6-14.4 ybko=818) PLATELET COUNT (BEAKER) (test sdzw=264) 391 K/CU MM 150-450 MEAN PLATELET VOLUME (BEAKER) (test juhz=359) 9.9 fL 9.4-12.4 NUCLEATED RED BLOOD CELLS (BEAKER) (test 0 /100 WBC 0-0 nnqi=998) POCT-GLUCOSE [id number] 05:51:00 Test Item Value Reference Range Comments POC-GLUCOSE METER (BEAKER) 122 mg/dL 70-110 TESTED AT [address] (test zfsr=9923) [facility] [address] POCT-GLUCOSE [id number] 20:13:00 Test Item Value Reference Range Comments POC-GLUCOSE METER (BEAKER) 212 mg/dL 70-110 TESTED AT [address] (test yera=6544) [facility] [address] POCT-GLUCOSE [id number] 16:30:00 Test Item Value Reference Range Comments POC-GLUCOSE METER (BEAKER) 181 mg/dL 70-110 TESTED AT [address] (test mdxx=4255) [facility] [address] POCT-GLUCOSE [id number] 11:36:00 Test Item Value Reference Range Comments POC-GLUCOSE METER (BEAKER) 139 mg/dL 70-110 TESTED AT [address] (test dvxp=4504) [facility] [address] BASIC METABOLIC [id number] 06:56:00 Test Item Value Reference Range Comments SODIUM (BEAKER) (test 138 meq/L 136-145 rvzx=508) POTASSIUM (BEAKER) (test 3.6 meq/L 3.5-5.1 dqkk=005) CHLORIDE (BEAKER) (test 103 meq/L 98-107 wjcu=069) CO2 (BEAKER) (test 26 meq/L 22-29 txkf=729) BLOOD UREA NITROGEN 19 mg/dL 7-21 (BEAKER) (test iube=056) CREATININE (BEAKER) (test 1.10 mg/dL 0.57-1.25 nayu=434) GLUCOSE RANDOM (BEAKER) 97 mg/dL 70-105 (test rkpo=109) CALCIUM (BEAKER) (test 8.1 mg/dL 8.4-10.2 uwph=082) EGFR (BEAKER) (test 65 mL/min/1.73 sq m ESTIMATED GFR IS NOT qexz=8755) ACCURATE CREATININE CLEARANCE IN PREDICTING GLOMERULAR FILTRATION RATE. ESTIMATED GFR IS NOT APPLICABLE FOR DIALYSIS PATIENTS. POCT-GLUCOSE [id number] 06:00:00 Test Item Value Reference Range Comments POC-GLUCOSE METER (BEAKER) 119 mg/dL 70-110 TESTED AT [address] (test aqyc=0160) [facility] [address] POCT-GLUCOSE [id number] 20:05:00 Test Item Value Reference Range Comments POC-GLUCOSE METER (BEAKER) 167 mg/dL 70-110 TESTED AT [address] (test rqnp=6570) [facility] [address] POCT-GLUCOSE [id number] 17:01:00 Test Item Value Reference Range Comments POC-GLUCOSE METER (BEAKER) 138 mg/dL 70-110 TESTED AT [address] (test xcai=3498) [place] [id number] POCT-GLUCOSE [id number] 12:07:00 Test Item Value Reference Range Comments POC-GLUCOSE METER (BEAKER) 201 mg/dL 70-110 TESTED AT [address] (test bhmq=8695) [place] [id number] POCT-GLUCOSE [id number] 06:11:00 Test Item Value Reference Range Comments POC-GLUCOSE METER (BEAKER) 147 mg/dL 70-110 TESTED AT [address] (test nxwk=8604) [place] [address] RAD, CHEST, 1 VIEW, NON [id number] 22:11:00Reason for exam:->sobShould this be performed at [...] MDReport Verified Date/Time: 08/29/2017 22:11:44 Reading Location: [facility] C013Y CT Body Reading Room POCT-GLUCOSE [id number] 20:49:00 Test Item Value Reference Range Comments POC-GLUCOSE METER (BEAKER) 144 mg/dL 70-110 TESTED AT [address] (test jerv=0381) [place] [id number] POCT-GLUCOSE [id number] 16:39:00 Test Item Value Reference Range Comments POC-GLUCOSE METER (BEAKER) 151 mg/dL 70-110 TESTED AT [address] (test anru=1994) [place] [address] FUNGUS CULTURE + [id number] 15:05:00 Test Item Value Reference Range Comments CULTURE (BEAKER) (test No fungus isolated in 28 days gavv=8053) FUNGUS SMEAR (BEAKER) (test No fungi seen elrt=5432) POCT-GLUCOSE [id number] 11:50:00 Test Item Value Reference Range Comments POC-GLUCOSE METER (BEAKER) 166 mg/dL 70-110 TESTED AT [facility] [address] [facility] (test zrfj=9758) [facility] [address] POCT-GLUCOSE [id number] 21:39:00 Test Item Value Reference Range Comments POC-GLUCOSE METER (BEAKER) 136 mg/dL 70-110 TESTED AT [facility] [address] (test uqai=9587) [facility] [address] COMPREHENSIVE METABOLIC [id number] 16:58:00 Test Item Value Reference Range Comments TOTAL PROTEIN (BEAKER) 6.6 gm/dL 6.0-8.3 (test zmrx=940) ALBUMIN (BEAKER) (test 2.6 g/dL 3.5-5.0 snbf=6675) ALKALINE PHOSPHATASE 93 U/L 40-150 (BEAKER) (test tqws=862) BILIRUBIN TOTAL (BEAKER) 0.4 mg/dL 0.2-1.2 (test mxza=323) SODIUM (BEAKER) (test 134 meq/L 136-145 gxhn=717) POTASSIUM (BEAKER) (test 3.5 meq/L 3.5-5.1 ypwg=059) CHLORIDE (BEAKER) (test 98 meq/L 98-107 ucyj=447) CO2 (BEAKER) (test 25 meq/L 22-29 rbyt=496) BLOOD UREA NITROGEN 28 mg/dL 7-21 (BEAKER) (test rzob=894) CREATININE (BEAKER) (test 1.36 mg/dL 0.57-1.25 cefm=661) GLUCOSE RANDOM (BEAKER) 117 mg/dL 70-105 (test fmxm=566) CALCIUM (BEAKER) (test 8.1 mg/dL 8.4-10.2 quzm=264) AST (SGOT) (BEAKER) (test 37 U/L 5-34 ymhg=566) ALT (SGPT) (BEAKER) (test 29 U/L 6-55 jzba=493) EGFR (BEAKER) (test 51 mL/min/1.73 sq m ESTIMATED GFR IS NOT qiwp=3745) ACCURATE CREATININE CLEARANCE IN PREDICTING GLOMERULAR FILTRATION RATE. ESTIMATED GFR IS NOT APPLICABLE FOR DIALYSIS PATIENTS. LACTIC ACID, VENOUS, WHOLE [id number] 16:52:00 Test Item Value Reference Range Comments LACTATE BLOOD VENOUS (2) (BEAKER) (test 1.2 mmol/L 0.5-2.2 lqmh=2926) Effective 09/27/2015: Units/Reference Range ChangeNew: 0.5-2.2 mmol/L Previous: 5 -20 mg/dLCBC W/PLT COUNT & AUTO [id number] 16:39:00 Test Item Value Reference Range Comments WHITE BLOOD CELL COUNT (BEAKER) (test mxoh=647) 6.6 K/ L 3.5-10.5 RED BLOOD CELL COUNT (BEAKER) (test ttwk=663) 3.11 M/ L 4.63-6.08 HEMOGLOBIN (BEAKER) (test ogqi=474) 9.0 GM/DL 13.7-17.5 HEMATOCRIT (BEAKER) (test wmtp=271) 30.1 % 40.1-51.0 MEAN CORPUSCULAR VOLUME (BEAKER) (test fnpv=046) 96.8 fL 79.0-92.2 MEAN CORPUSCULAR HEMOGLOBIN (BEAKER) (test 28.9 pg 25.7-32.2 abfv=804) MEAN CORPUSCULAR HEMOGLOBIN CONC (BEAKER) (test 29.9 GM/DL 32.3-36.5 mpaq=755) RED CELL DISTRIBUTION WIDTH (BEAKER) (test 16.1 % 11.6-14.4 cuma=627) PLATELET COUNT (BEAKER) (test hsgp=207) 367 K/CU MM 150-450 MEAN PLATELET VOLUME (BEAKER) (test xpyx=836) 9.4 fL 9.4-12.4 NUCLEATED RED BLOOD CELLS (BEAKER) (test 0 /100 WBC 0-0 xyqh=238) NEUTROPHILS RELATIVE PERCENT (BEAKER) (test 78 % alzu=470) LYMPHOCYTES RELATIVE PERCENT (BEAKER) (test 12 % xvrd=032) MONOCYTES RELATIVE PERCENT (BEAKER) (test 9 % mzpu=846) EOSINOPHILS RELATIVE PERCENT (BEAKER) (test 1 % qibz=509) BASOPHILS RELATIVE PERCENT (BEAKER) (test 0 % wihc=959) NEUTROPHILS ABSOLUTE COUNT (BEAKER) (test 5.18 K/ L 1.78-5.38 oacb=836) LYMPHOCYTES ABSOLUTE COUNT (BEAKER) (test 0.79 K/ L 1.32-3.57 ggub=871) MONOCYTES ABSOLUTE COUNT (BEAKER) (test 0.60 K/ L 0.30-0.82 isqw=712) EOSINOPHILS ABSOLUTE COUNT (BEAKER) (test 0.03 K/ L 0.04-0.54 lllt=181) BASOPHILS ABSOLUTE COUNT (BEAKER) (test 0.01 K/ L 0.01-0.08 nmgb=510) IMMATURE GRANULOCYTES-RELATIVE PERCENT (BEAKER) 1 % 0-1 (test jvhi=7343) POCT-GLUCOSE [id number] 16:20:00 Test Item Value Reference Range Comments POC-GLUCOSE METER (BEAKER) 136 mg/dL 70-110 TESTED AT [address] (test ijsw=8047) [place] [id number] POCT-GLUCOSE [id number] 11:45:00 Test Item Value Reference Range Comments POC-GLUCOSE METER (BEAKER) 157 mg/dL 70-110 TESTED AT [address] (test vmsq=2403) [place] [id number] POCT-GLUCOSE [id number] 06:31:00 Test Item Value Reference Range Comments POC-GLUCOSE METER (BEAKER) 131 mg/dL 70-110 TESTED AT [address] (test xwgv=8226) [place] [id number] POCT-GLUCOSE [id number] 20:28:00 Test Item Value Reference Range Comments POC-GLUCOSE METER (BEAKER) 173 mg/dL 70-110 TESTED AT [address] (test xftg=2398) [place] [id number] POCT-GLUCOSE [id number] 16:43:00 Test Item Value Reference Range Comments POC-GLUCOSE METER (BEAKER) 191 mg/dL 70-110 TESTED AT [address] (test wety=1607) [place] [id number] POCT-GLUCOSE [id number] 11:59:00 Test Item Value Reference Range Comments POC-GLUCOSE METER (BEAKER) 152 mg/dL 70-110 TESTED AT [address] (test ncra=4632) [place] [id number] RAD, CHEST, 1 VIEW, NON [id number] 11:08:00Reason for exam:-> dyspneaShould this be performed at the bedside?->YesFINAL REPORT Two frontal chest images compared to August 20 Discussion: There is cardiac prominence and pulmonary congestion with probable small left effusion. No pneumothorax. IMPRESSIONS: No change Signed: Taty Osborne MDReport Verified Date/Time: 08/27/2017 11:08:36 Reading Location: [facility] Reading Room 11 :08 AMPOCT-GLUCOSE [id number] 06:00:00 Test Item Value Reference Range Comments POC-GLUCOSE METER (BEAKER) 129 mg/dL 70-110 TESTED AT [address] (test ktlj=9974) [facility] [address] [id number] 05:12:00 Test Item Value Reference Range Comments PREALBUMIN (BEAKER) (test iijl=553) 10 mg/dL 14-45 POCT-GLUCOSE [id number] 20:50:00 Test Item Value Reference Range Comments POC-GLUCOSE METER (BEAKER) 177 mg/dL 70-110 TESTED AT [address] (test ragu=1126) [place] [id number] POCT-GLUCOSE [id number] 16:19:00 Test Item Value Reference Range Comments POC-GLUCOSE METER (BEAKER) 162 mg/dL 70-110 TESTED AT [address] (test gxfw=2042) [place] [address] POCT-GLUCOSE [id number] 11:44:00 Test Item Value Reference Range Comments POC-GLUCOSE METER (BEAKER) 182 mg/dL 70-110 TESTED AT [address] (test aekl=0294) [place] [address] POCT-GLUCOSE [id number] 06:07:00 Test Item Value Reference Range Comments POC-GLUCOSE METER (BEAKER) 120 mg/dL 70-110 TESTED AT [address] (test cfdo=8814) [place] [address] POCT-GLUCOSE [id number] 20:48:00 Test Item Value Reference Range Comments POC-GLUCOSE METER (BEAKER) 172 mg/dL 70-110 TESTED AT [address] (test trxv=9219) [place] [address] POCT-GLUCOSE [id number] 16:17:00 Test Item Value Reference Range Comments POC-GLUCOSE METER (BEAKER) 156 mg/dL 70-110 TESTED AT [address] (test gjkv=5453) [place] [address] POCT-GLUCOSE [id number] 11:33:00 Test Item Value Reference Range Comments POC-GLUCOSE METER (BEAKER) 203 mg/dL 70-110 TESTED AT [facility] [address] [facility] (test zeth=5683) [facility] [address] HEPATIC FUNCTION [id number] 11:30:00 Test Item Value Reference Range Comments TOTAL PROTEIN (BEAKER) (test xthu=423) 6.5 gm/dL 6.0-8.3 ALBUMIN (BEAKER) (test sclb=3594) 2.6 g/dL 3.5-5.0 BILIRUBIN TOTAL (BEAKER) (test zkai=525) 0.4 mg/dL 0.2-1.2 BILIRUBIN DIRECT (BEAKER) (test sxxj=759) 0.3 mg/dL 0.1-0.5 ALKALINE PHOSPHATASE (BEAKER) (test eugv=291) 105 U/L 40-150 AST (SGOT) (BEAKER) (test esiz=330) 26 U/L 5-34 ALT (SGPT) (BEAKER) (test rree=895) 21 U/L 6-55 BASIC METABOLIC [id number] 07:01:00 Test Item Value Reference Range Comments SODIUM (BEAKER) (test 136 meq/L 136-145 wbgi=541) POTASSIUM (BEAKER) (test 3.7 meq/L 3.5-5.1 rawo=312) CHLORIDE (BEAKER) (test 102 meq/L 98-107 xnjc=282) CO2 (BEAKER) (test 25 meq/L 22-29 qraw=581) BLOOD UREA NITROGEN 23 mg/dL 7-21 (BEAKER) (test mezb=839) CREATININE (BEAKER) (test 1.22 mg/dL 0.57-1.25 vwfh=995) GLUCOSE RANDOM (BEAKER) 120 mg/dL 70-105 (test hqyf=799) CALCIUM (BEAKER) (test 8.4 mg/dL 8.4-10.2 mbar=525) EGFR (BEAKER) (test 58 mL/min/1.73 sq m ESTIMATED GFR IS NOT letr=5739) ACCURATE CREATININE CLEARANCE IN PREDICTING GLOMERULAR FILTRATION RATE. ESTIMATED GFR IS NOT APPLICABLE FOR DIALYSIS PATIENTS. CBC (HEMOGRAM ONLY)2017-08-25 06:32:00 Test Item Value Reference Range Comments WHITE BLOOD CELL COUNT (BEAKER) (test oszz=259) 7.0 K/ L 3.5-10.5 RED BLOOD CELL COUNT (BEAKER) (test yfhx=374) 3.14 M/ L 4.63-6.08 HEMOGLOBIN (BEAKER) (test bkxv=055) 9.2 GM/DL 13.7-17.5 HEMATOCRIT (BEAKER) (test zrgy=981) 31.3 % 40.1-51.0 MEAN CORPUSCULAR VOLUME (BEAKER) (test gsli=908) 99.7 fL 79.0-92.2 MEAN CORPUSCULAR HEMOGLOBIN (BEAKER) (test 29.3 pg 25.7-32.2 wmuc=689) MEAN CORPUSCULAR HEMOGLOBIN CONC (BEAKER) (test 29.4 GM/DL 32.3-36.5 wogg=381) RED CELL DISTRIBUTION WIDTH (BEAKER) (test 16.1 % 11.6-14.4 aoxc=221) PLATELET COUNT (BEAKER) (test grbb=383) 362 K/CU MM 150-450 MEAN PLATELET VOLUME (BEAKER) (test taam=775) 9.8 fL 9.4-12.4 NUCLEATED RED BLOOD CELLS (BEAKER) (test 0 /100 WBC 0-0 zhlt=158) POCT-GLUCOSE [id number] 06:17:00 Test Item Value Reference Range Comments POC-GLUCOSE METER (BEAKER) 152 mg/dL 70-110 TESTED AT [address] (test gqxw=7259) [facility] [address] POCT-GLUCOSE [id number] 20:39:00 Test Item Value Reference Range Comments POC-GLUCOSE METER (BEAKER) 249 mg/dL 70-110 TESTED AT [address] (test jofs=4138) [facility] [address] POCT-GLUCOSE [id number] 17:12:00 Test Item Value Reference Range Comments POC-GLUCOSE METER (BEAKER) 163 mg/dL 70-110 TESTED AT [address] (test kwbt=7044) [facility] [address] POCT-GLUCOSE [id number] 11:20:00 Test Item Value Reference Range Comments POC-GLUCOSE METER (BEAKER) 190 mg/dL 70-110 TESTED AT [address] (test tnfd=7922) [facility] [address] POCT-GLUCOSE [id number] 06:16:00 Test Item Value Reference Range Comments POC-GLUCOSE METER (BEAKER) 126 mg/dL 70-110 TESTED AT [address] (test zjqt=7037) [place] [address] POCT-GLUCOSE [id number] 20:49:00 Test Item Value Reference Range Comments POC-GLUCOSE METER (BEAKER) 139 mg/dL 70-110 TESTED AT [address] (test pzsh=1139) [place] [address] POCT-GLUCOSE [id number] 16:32:00 Test Item Value Reference Range Comments POC-GLUCOSE METER (BEAKER) 161 mg/dL 70-110 TESTED AT [address] (test rmze=2458) [place] [address] POCT-GLUCOSE [id number] 12:02:00 Test Item Value Reference Range Comments POC-GLUCOSE METER (BEAKER) 149 mg/dL 70-110 TESTED AT [address] (test mlpb=2463) [place] [address] CBC W/PLT COUNT & AUTO [id number] 07:02:00 Test Item Value Reference Range Comments WHITE BLOOD CELL COUNT (BEAKER) (test jqzn=889) 8.4 K/ L 3.5-10.5 RED BLOOD CELL COUNT (BEAKER) (test fyvr=358) 3.07 M/ L 4.63-6.08 HEMOGLOBIN (BEAKER) (test tyhv=709) 9.1 GM/DL 13.7-17.5 HEMATOCRIT (BEAKER) (test zmlm=164) 30.9 % 40.1-51.0 MEAN CORPUSCULAR VOLUME (BEAKER) (test gbjx=041) 100.7 fL 79.0-92.2 MEAN CORPUSCULAR HEMOGLOBIN (BEAKER) (test 29.6 pg 25.7-32.2 exqx=127) MEAN CORPUSCULAR HEMOGLOBIN CONC (BEAKER) (test 29.4 GM/DL 32.3-36.5 iqom=691) RED CELL DISTRIBUTION WIDTH (BEAKER) (test 16.1 % 11.6-14.4 ybnz=331) PLATELET COUNT (BEAKER) (test pqgl=585) 374 K/CU MM 150-450 MEAN PLATELET VOLUME (BEAKER) (test cpoz=774) 9.8 fL 9.4-12.4 NUCLEATED RED BLOOD CELLS (BEAKER) (test 0 /100 WBC 0-0 xyng=398) NEUTROPHILS RELATIVE PERCENT (BEAKER) (test 78 % bkhw=396) LYMPHOCYTES RELATIVE PERCENT (BEAKER) (test 9 % quis=132) MONOCYTES RELATIVE PERCENT (BEAKER) (test 10 % cevv=198) EOSINOPHILS RELATIVE PERCENT (BEAKER) (test 3 % uhcy=496) BASOPHILS RELATIVE PERCENT (BEAKER) (test 1 % kyub=863) NEUTROPHILS ABSOLUTE COUNT (BEAKER) (test 6.53 K/ L 1.78-5.38 yuma=885) LYMPHOCYTES ABSOLUTE COUNT (BEAKER) (test 0.75 K/ L 1.32-3.57 sfhb=165) MONOCYTES ABSOLUTE COUNT (BEAKER) (test 0.81 K/ L 0.30-0.82 llhh=547) EOSINOPHILS ABSOLUTE COUNT (BEAKER) (test 0.22 K/ L 0.04-0.54 pmvn=603) BASOPHILS ABSOLUTE COUNT (BEAKER) (test 0.04 K/ L 0.01-0.08 tgdn=350) IMMATURE GRANULOCYTES-RELATIVE PERCENT (BEAKER) 1 % 0-1 (test vqdo=3805) BASIC METABOLIC [id number] 06:59:00 Test Item Value Reference Range Comments SODIUM (BEAKER) (test 136 meq/L 136-145 zqdj=410) POTASSIUM (BEAKER) (test 3.8 meq/L 3.5-5.1 uvip=906) CHLORIDE (BEAKER) (test 104 meq/L 98-107 fcaa=370) CO2 (BEAKER) (test 23 meq/L 22-29 ronp=208) BLOOD UREA NITROGEN 26 mg/dL 7-21 (BEAKER) (test mznp=963) CREATININE (BEAKER) (test 1.30 mg/dL 0.57-1.25 apuj=826) GLUCOSE RANDOM (BEAKER) 124 mg/dL 70-105 (test vagq=950) CALCIUM (BEAKER) (test 8.6 mg/dL 8.4-10.2 mkly=799) EGFR (BEAKER) (test 54 mL/min/1.73 sq m ESTIMATED GFR IS NOT fmxi=7300) ACCURATE CREATININE CLEARANCE IN PREDICTING GLOMERULAR FILTRATION RATE. ESTIMATED GFR IS NOT APPLICABLE FOR DIALYSIS PATIENTS. POCT-GLUCOSE [id number] 06:40:00 Test Item Value Reference Range Comments POC-GLUCOSE METER (BEAKER) 158 mg/dL 70-110 TESTED AT [address] (test jlrn=0149) [facility] [address] POCT-GLUCOSE [id number] 20:50:00 Test Item Value Reference Range Comments POC-GLUCOSE METER (BEAKER) 174 mg/dL 70-110 TESTED AT [address] (test cenp=2472) [facility] [address] POCT-GLUCOSE [id number] 17:01:00 Test Item Value Reference Range Comments POC-GLUCOSE METER (BEAKER) 130 mg/dL 70-110 TESTED AT [address] (test scbk=5028) [place] [address] POCT-GLUCOSE [id number] 12:02:00 Test Item Value Reference Range Comments POC-GLUCOSE METER (BEAKER) 194 mg/dL 70-110 TESTED AT [address] (test kuhn=3349) [place] [address] POCT-GLUCOSE [id number] 06:25:00 Test Item Value Reference Range Comments POC-GLUCOSE METER (BEAKER) 130 mg/dL 70-110 TESTED AT [address] (test jpri=9375) [place] [address] POCT-GLUCOSE [id number] 19:53:00 Test Item Value Reference Range Comments POC-GLUCOSE METER (BEAKER) 188 mg/dL 70-110 TESTED AT [address] (test rzby=6452) [place] [address] POCT-GLUCOSE [id number] 16:24:00 Test Item Value Reference Range Comments POC-GLUCOSE METER (BEAKER) 210 mg/dL 70-110 TESTED AT [address] (test anxu=2977) [place] [address] POCT-GLUCOSE [id number] 11:20:00 Test Item Value Reference Range Comments POC-GLUCOSE METER (BEAKER) 186 mg/dL 70-110 TESTED AT [address] (test gpso=2337) [facility] [address] POCT-GLUCOSE [id number] 06:18:00 Test Item Value Reference Range Comments POC-GLUCOSE METER (BEAKER) 127 mg/dL 70-110 TESTED AT [address] (test sbgl=2568) [place] [address] POCT-GLUCOSE [id number] 20:48:00 Test Item Value Reference Range Comments POC-GLUCOSE METER (BEAKER) 166 mg/dL 70-110 TESTED AT [address] (test hoqd=6209) [place] [address] POCT-GLUCOSE [id number] 16:51:00 Test Item Value Reference Range Comments POC-GLUCOSE METER (BEAKER) 153 mg/dL 70-110 TESTED AT [address] (test vbnt=0538) [place] [address] B-TYPE NATRIURETIC FACTOR (BNP)2017-08-20 14:00:00 Test Item Value Reference Range Comments B-TYPE NATRIURETIC PEPTIDE (BEAKER) (test 422 pg/mL 0-100 fmni=001) POCT-GLUCOSE [id number] 12:02:00 Test Item Value Reference Range Comments POC-GLUCOSE METER (BEAKER) 203 mg/dL 70-110 TESTED AT [address] (test dnzf=1084) [place] [address] RAD, CHEST, 1 VIEW, NON [id number] 08:19:00Reason for exam:->pulm edema fupShould this be [...] MDRepbirdie Verified Date/Time: 08/20/2017 08:19:33 Reading Location: [facility]iology Reading Room POCT-GLUCOSE [id number] 05:10:00 Test Item Value Reference Range Comments POC-GLUCOSE METER (BEAKER) 138 mg/dL 70-110 TESTED AT [address] (test ywsg=5907) [place] [address] POCT-GLUCOSE [id number] 21:20:00 Test Item Value Reference Range Comments POC-GLUCOSE METER (BEAKER) 151 mg/dL 70-110 TESTED AT [address] (test ymaf=8002) [place] [address] POCT-GLUCOSE [id number] 18:02:00 Test Item Value Reference Range Comments POC-GLUCOSE METER (BEAKER) 227 mg/dL 70-110 TESTED AT [address] (test oruh=3384) [place] [address] POCT-GLUCOSE [id number] 11:42:00 Test Item Value Reference Range Comments POC-GLUCOSE METER (BEAKER) 212 mg/dL 70-110 TESTED AT [address] (test xrse=5738) [place] [address] VITAMIN B12 AND [id number] 07:11:00 Test Item Value Reference Range Comments VITAMIN B12 (BEAKER) (test xfpp=425) 654 pg/mL 213-816 FOLATE (BEAKER) (test bynv=890) 4.4 ng/mL >=7.0 POCT-GLUCOSE [id number] 06:14:00 Test Item Value Reference Range Comments POC-GLUCOSE METER (BEAKER) 144 mg/dL 70-110 TESTED AT [address] (test kzjt=2850) [place] [address] CT, CHEST, WITHOUT [id number] 22:14:00FINAL REPORT CT, CHEST, WITHOUT CONTRAST INDICATION: [...] MDReport Verified Date/Time: 08/18/2017 22:14:14 Reading Location: [facility] B1 C013Y CT Body Reading Room POCT-GLUCOSE [id number] 21: 03:00 Test Item Value Reference Range Comments POC-GLUCOSE METER (BEAKER) 179 mg/dL 70-110 TESTED AT [address] (test bapm=6611) [place] [address] POCT-GLUCOSE [id number] 16:32:00 Test Item Value Reference Range Comments POC-GLUCOSE METER (BEAKER) 147 mg/dL 70-110 TESTED AT [address] (test dsac=1436) [place] [address] POCT-GLUCOSE [id number] 12:07:00 Test Item Value Reference Range Comments POC-GLUCOSE METER (BEAKER) 171 mg/dL 70-110 TESTED AT [address] (test emdb=6669) [facility] [address] BASIC METABOLIC [id number] 06:31:00 Test Item Value Reference Range Comments SODIUM (BEAKER) (test 136 meq/L 136-145 aodj=615) POTASSIUM (BEAKER) (test 4.2 meq/L 3.5-5.1 pnjz=479) CHLORIDE (BEAKER) (test 104 meq/L 98-107 inci=601) CO2 (BEAKER) (test 23 meq/L 22-29 begg=071) BLOOD UREA NITROGEN 27 mg/dL 7-21 (BEAKER) (test ycjg=133) CREATININE (BEAKER) (test 1.28 mg/dL 0.57-1.25 dgsl=011) GLUCOSE RANDOM (BEAKER) 123 mg/dL 70-105 (test omab=241) CALCIUM (BEAKER) (test 8.4 mg/dL 8.4-10.2 eued=310) EGFR (BEAKER) (test 55 mL/min/1.73 sq m ESTIMATED GFR IS NOT zxmi=9711) ACCURATE CREATININE CLEARANCE IN PREDICTING GLOMERULAR FILTRATION RATE. ESTIMATED GFR IS NOT APPLICABLE FOR DIALYSIS PATIENTS. POCT-GLUCOSE [id number] 05:42:00 Test Item Value Reference Range Comments POC-GLUCOSE METER (BEAKER) 132 mg/dL 70-110 TESTED AT [facility] [address] [facility] (test nsmp=1808) [facility] [address] CBC W/PLT COUNT & AUTO [id number] 05:39:00 Test Item Value Reference Range Comments WHITE BLOOD CELL COUNT (BEAKER) (test essa=014) 8.6 K/ L 3.5-10.5 RED BLOOD CELL COUNT (BEAKER) (test rjbo=990) 2.69 M/ L 4.63-6.08 HEMOGLOBIN (BEAKER) (test hexy=146) 8.3 GM/DL 13.7-17.5 HEMATOCRIT (BEAKER) (test bqqr=319) 27.6 % 40.1-51.0 MEAN CORPUSCULAR VOLUME (BEAKER) (test ufkf=210) 102.6 fL 79.0-92.2 MEAN CORPUSCULAR HEMOGLOBIN (BEAKER) (test 30.9 pg 25.7-32.2 fotf=395) MEAN CORPUSCULAR HEMOGLOBIN CONC (BEAKER) (test 30.1 GM/DL 32.3-36.5 szol=407) RED CELL DISTRIBUTION WIDTH (BEAKER) (test 16.6 % 11.6-14.4 uyth=456) PLATELET COUNT (BEAKER) (test vetd=956) 407 K/CU MM 150-450 MEAN PLATELET VOLUME (BEAKER) (test vyqq=942) 9.4 fL 9.4-12.4 NUCLEATED RED BLOOD CELLS (BEAKER) (test 0 /100 WBC 0-0 pwyg=979) NEUTROPHILS RELATIVE PERCENT (BEAKER) (test 76 % rjbb=740) LYMPHOCYTES RELATIVE PERCENT (BEAKER) (test 11 % dfkp=777) MONOCYTES RELATIVE PERCENT (BEAKER) (test 7 % fucj=401) EOSINOPHILS RELATIVE PERCENT (BEAKER) (test 6 % ibzu=889) BASOPHILS RELATIVE PERCENT (BEAKER) (test 1 % eehu=625) NEUTROPHILS ABSOLUTE COUNT (BEAKER) (test 6.51 K/ L 1.78-5.38 sduh=435) LYMPHOCYTES ABSOLUTE COUNT (BEAKER) (test 0.90 K/ L 1.32-3.57 ttbu=782) MONOCYTES ABSOLUTE COUNT (BEAKER) (test 0.58 K/ L 0.30-0.82 kgns=129) EOSINOPHILS ABSOLUTE COUNT (BEAKER) (test 0.51 K/ L 0.04-0.54 evxb=194) BASOPHILS ABSOLUTE COUNT (BEAKER) (test 0.04 K/ L 0.01-0.08 gbns=152) IMMATURE GRANULOCYTES-RELATIVE PERCENT (BEAKER) 1 % 0-1 (test ltje=5581) POCT-GLUCOSE [id number] 20:21:00 Test Item Value Reference Range Comments POC-GLUCOSE METER (BEAKER) 168 mg/dL 70-110 TESTED AT [address] (test seoq=7613) [place] [address] POCT-GLUCOSE [id number] 17:12:00 Test Item Value Reference Range Comments POC-GLUCOSE METER (BEAKER) 149 mg/dL 70-110 TESTED AT [address] (test tbwo=1442) [place] [address] POCT-GLUCOSE [id number] 11:46:00 Test Item Value Reference Range Comments POC-GLUCOSE METER (BEAKER) 138 mg/dL 70-110 TESTED AT [address] (test fhxs=6469) [facility] [address] BASIC METABOLIC [id number] 08:56:00 Test Item Value Reference Range Comments SODIUM (BEAKER) (test 137 meq/L 136-145 tzci=867) POTASSIUM (BEAKER) (test 4.0 meq/L 3.5-5.1 akxq=630) CHLORIDE (BEAKER) (test 106 meq/L 98-107 ktnt=891) CO2 (BEAKER) (test 22 meq/L 22-29 nedp=330) BLOOD UREA NITROGEN 28 mg/dL 7-21 (BEAKER) (test ttnb=886) CREATININE (BEAKER) (test 1.34 mg/dL 0.57-1.25 ghpy=500) GLUCOSE RANDOM (BEAKER) 124 mg/dL 70-105 (test twzf=592) CALCIUM (BEAKER) (test 8.2 mg/dL 8.4-10.2 jrvm=719) EGFR (BEAKER) (test 52 mL/min/1.73 sq m ESTIMATED GFR IS NOT aznk=7445) ACCURATE CREATININE CLEARANCE IN PREDICTING GLOMERULAR FILTRATION RATE. ESTIMATED GFR IS NOT APPLICABLE FOR DIALYSIS PATIENTS. POCT-GLUCOSE [id number] 05:44:00 Test Item Value Reference Range Comments POC-GLUCOSE METER (BEAKER) 139 mg/dL 70-110 TESTED AT [address] (test pbkb=7800) [facility] [address] POCT-GLUCOSE [id number] 20:33:00 Test Item Value Reference Range Comments POC-GLUCOSE METER (BEAKER) 145 mg/dL 70-110 TESTED AT [address] (test myok=6741) [facility] [address] POCT-GLUCOSE [id number] 16:39:00 Test Item Value Reference Range Comments POC-GLUCOSE METER (BEAKER) 177 mg/dL 70-110 TESTED AT [address] (test psud=7238) [facility] [address] POCT-GLUCOSE [id number] 12:01:00 Test Item Value Reference Range Comments POC-GLUCOSE METER (BEAKER) 200 mg/dL 70-110 TESTED AT [address] (test qojc=2901) [facility] [address] POCT-GLUCOSE [id number] 05:56:00 Test Item Value Reference Range Comments POC-GLUCOSE METER (BEAKER) 167 mg/dL 70-110 TESTED AT [address] (test jvzi=9131) [facility] [address] POCT-GLUCOSE [id number] 20:34:00 Test Item Value Reference Range Comments POC-GLUCOSE METER (BEAKER) 217 mg/dL 70-110 TESTED AT [address] (test vavy=5928) [facility] [address] POCT-GLUCOSE [id number] 18:24:00 Test Item Value Reference Range Comments POC-GLUCOSE METER (BEAKER) 190 mg/dL 70-110 TESTED AT [address] (test otwk=3087) [facility] [address] POCT-GLUCOSE [id number] 16:22:00 Test Item Value Reference Range Comments POC-GLUCOSE METER (BEAKER) 233 mg/dL 70-110 TESTED AT [address] (test khje=5146) [facility] [address] POCT-GLUCOSE [id number] 12:13:00 Test Item Value Reference Range Comments POC-GLUCOSE METER (BEAKER) 235 mg/dL 70-110 TESTED AT [facility] [address] [facility] (test pycb=7237) [facility] [address] RAD, CHEST, 2 [id number] 09:16:00Reason for exam:->sobFINAL REPORT Two frontal and one lateral chest images compared to August 14 Discussion: Cardiomegaly and pulmonary congestion are present. I could not exclude a small right effusion although pleural thickening would have a similar appearance. No pneumothorax. IMPRESSIONS: No change Signed: Taty Osborne Verified Date/Time: 08/15/2017 09:16:20 Reading Location: [facility] Radiology Reading Room BASIC METABOLIC [id number] 06:45:00 Test Item Value Reference Range Comments SODIUM (BEAKER) (test 136 meq/L 136-145 zghw=848) POTASSIUM (BEAKER) (test 4.3 meq/L 3.5-5.1 izdt=186) CHLORIDE (BEAKER) (test 106 meq/L 98-107 kgmk=393) CO2 (BEAKER) (test 21 meq/L 22-29 vwkk=197) BLOOD UREA NITROGEN 32 mg/dL 7-21 (BEAKER) (test mjit=921) CREATININE (BEAKER) (test 1.41 mg/dL 0.57-1.25 johx=752) GLUCOSE RANDOM (BEAKER) 127 mg/dL 70-105 (test vyvd=116) CALCIUM (BEAKER) (test 8.3 mg/dL 8.4-10.2 nbnh=674) EGFR (BEAKER) (test 49 mL/min/1.73 sq m ESTIMATED GFR IS NOT afzb=9410) ACCURATE CREATININE CLEARANCE IN PREDICTING GLOMERULAR FILTRATION RATE. ESTIMATED GFR IS NOT APPLICABLE FOR DIALYSIS PATIENTS. CBC W/PLT COUNT & AUTO [id number] 05:31:00 Test Item Value Reference Range Comments WHITE BLOOD CELL COUNT (BEAKER) (test tjat=540) 11.0 K/ L 3.5-10.5 RED BLOOD CELL COUNT (BEAKER) (test tpkz=853) 2.56 M/ L 4.63-6.08 HEMOGLOBIN (BEAKER) (test ejja=778) 7.9 GM/DL 13.7-17.5 HEMATOCRIT (BEAKER) (test ujys=940) 26.4 % 40.1-51.0 MEAN CORPUSCULAR VOLUME (BEAKER) (test vyvt=094) 103.1 fL 79.0-92.2 MEAN CORPUSCULAR HEMOGLOBIN (BEAKER) (test 30.9 pg 25.7-32.2 oigo=791) MEAN CORPUSCULAR HEMOGLOBIN CONC (BEAKER) (test 29.9 GM/DL 32.3-36.5 lukn=063) RED CELL DISTRIBUTION WIDTH (BEAKER) (test 16.3 % 11.6-14.4 ysqs=658) PLATELET COUNT (BEAKER) (test hqes=101) 470 K/CU MM 150-450 MEAN PLATELET VOLUME (BEAKER) (test peln=434) 9.7 fL 9.4-12.4 NUCLEATED RED BLOOD CELLS (BEAKER) (test 0 /100 WBC 0-0 vloz=229) NEUTROPHILS RELATIVE PERCENT (BEAKER) (test 79 % momp=361) LYMPHOCYTES RELATIVE PERCENT (BEAKER) (test 9 % kkmk=987) MONOCYTES RELATIVE PERCENT (BEAKER) (test 7 % ylsm=018) EOSINOPHILS RELATIVE PERCENT (BEAKER) (test 5 % iijs=407) BASOPHILS RELATIVE PERCENT (BEAKER) (test 1 % zcuo=330) NEUTROPHILS ABSOLUTE COUNT (BEAKER) (test 8.65 K/ L 1.78-5.38 dxnz=718) LYMPHOCYTES ABSOLUTE COUNT (BEAKER) (test 0.99 K/ L 1.32-3.57 yypj=465) MONOCYTES ABSOLUTE COUNT (BEAKER) (test 0.76 K/ L 0.30-0.82 npbb=419) EOSINOPHILS ABSOLUTE COUNT (BEAKER) (test 0.51 K/ L 0.04-0.54 urjk=614) BASOPHILS ABSOLUTE COUNT (BEAKER) (test 0.06 K/ L 0.01-0.08 wxzv=237) IMMATURE GRANULOCYTES-RELATIVE PERCENT (BEAKER) 1 % 0-1 (test ltrf=6302) POCT-GLUCOSE [id number] 03:46:00 Test Item Value Reference Range Comments POC-GLUCOSE METER (BEAKER) 235 mg/dL 70-110 TESTED AT [address] (test lumv=8288) [facility] [address] POCT-GLUCOSE [id number] 20:54:00 Test Item Value Reference Range Comments POC-GLUCOSE METER (BEAKER) 205 mg/dL 70-110 TESTED AT [address] (test acro=0175) [place] [id number] RAD, CHEST, 1 VIEW, NON [id number] 15:21:00Reason for exam:->sobShould this be performed at [...] Mcdanielseport Verified Date/Time: 08/14/2017 15:21:32 Reading Location: [facility] Radiology Reading Room POCT- GLUCOSE [id number] 13:31:00 Test Item Value Reference Range Comments POC-GLUCOSE METER (BEAKER) 229 mg/dL 70-110 TESTED AT [address] (test fvpy=7368) [facility] [address] POCT-GLUCOSE [id number] 10:21:00 Test Item Value Reference Range Comments POC-GLUCOSE METER (BEAKER) 189 mg/dL 70-110 TESTED AT [address] (test nriy=8636) [facility] [address] [id number] 04:50:00 Test Item Value Reference Range Comments MAGNESIUM (BEAKER) (test ysxt=293) 1.6 mg/dL 1.6-2.6 BASIC METABOLIC [id number] 04:50:00 Test Item Value Reference Range Comments SODIUM (BEAKER) (test 132 meq/L 136-145 czaj=821) POTASSIUM (BEAKER) (test 4.2 meq/L 3.5-5.1 kidx=818) CHLORIDE (BEAKER) (test 105 meq/L 98-107 hzdi=538) CO2 (BEAKER) (test 20 meq/L 22-29 qwna=387) BLOOD UREA NITROGEN 36 mg/dL 7-21 (BEAKER) (test cqow=163) CREATININE (BEAKER) (test 1.28 mg/dL 0.57-1.25 jmcj=374) GLUCOSE RANDOM (BEAKER) 136 mg/dL 70-105 (test yrhk=502) CALCIUM (BEAKER) (test 8.0 mg/dL 8.4-10.2 bvrs=088) EGFR (BEAKER) (test 55 mL/min/1.73 sq m ESTIMATED GFR IS NOT jrfs=5026) ACCURATE CREATININE CLEARANCE IN PREDICTING GLOMERULAR FILTRATION RATE. ESTIMATED GFR IS NOT APPLICABLE FOR DIALYSIS PATIENTS. CBC W/PLT COUNT & AUTO [id number] 04:34:00 Test Item Value Reference Range Comments WHITE BLOOD CELL COUNT (BEAKER) (test ttvv=848) 10.4 K/ L 3.5-10.5 RED BLOOD CELL COUNT (BEAKER) (test rbax=869) 2.53 M/ L 4.63-6.08 HEMOGLOBIN (BEAKER) (test twza=138) 7.8 GM/DL 13.7-17.5 HEMATOCRIT (BEAKER) (test cuzg=500) 25.9 % 40.1-51.0 MEAN CORPUSCULAR VOLUME (BEAKER) (test xvqy=680) 102.4 fL 79.0-92.2 MEAN CORPUSCULAR HEMOGLOBIN (BEAKER) (test 30.8 pg 25.7-32.2 zzhw=079) MEAN CORPUSCULAR HEMOGLOBIN CONC (BEAKER) (test 30.1 GM/DL 32.3-36.5 zhed=698) RED CELL DISTRIBUTION WIDTH (BEAKER) (test 15.9 % 11.6-14.4 zlwv=912) PLATELET COUNT (BEAKER) (test ydve=938) 479 K/CU MM 150-450 MEAN PLATELET VOLUME (BEAKER) (test kwue=365) 9.7 fL 9.4-12.4 NUCLEATED RED BLOOD CELLS (BEAKER) (test 0 /100 WBC 0-0 fpvt=800) NEUTROPHILS RELATIVE PERCENT (BEAKER) (test 78 % nafm=526) LYMPHOCYTES RELATIVE PERCENT (BEAKER) (test 9 % xgvk=989) MONOCYTES RELATIVE PERCENT (BEAKER) (test 7 % hchp=176) EOSINOPHILS RELATIVE PERCENT (BEAKER) (test 5 % viki=814) BASOPHILS RELATIVE PERCENT (BEAKER) (test 1 % ihzy=925) NEUTROPHILS ABSOLUTE COUNT (BEAKER) (test 8.06 K/ L 1.78-5.38 xsav=756) LYMPHOCYTES ABSOLUTE COUNT (BEAKER) (test 0.93 K/ L 1.32-3.57 gjhj=556) MONOCYTES ABSOLUTE COUNT (BEAKER) (test 0.68 K/ L 0.30-0.82 wlrp=904) EOSINOPHILS ABSOLUTE COUNT (BEAKER) (test 0.52 K/ L 0.04-0.54 ktly=867) BASOPHILS ABSOLUTE COUNT (BEAKER) (test 0.07 K/ L 0.01-0.08 baxj=372) IMMATURE GRANULOCYTES-RELATIVE PERCENT (BEAKER) 1 % 0-1 (test krqt=5229) POCT-GLUCOSE [id number] 21:22:00 Test Item Value Reference Range Comments POC-GLUCOSE METER (BEAKER) 232 mg/dL 70-110 TESTED AT [address] (test ancj=9950) [place] [address] POCT-GLUCOSE [id number] 17:34:00 Test Item Value Reference Range Comments POC-GLUCOSE METER (BEAKER) 205 mg/dL 70-110 TESTED AT [address] (test wzas=6433) [place] [address] POCT-GLUCOSE [id number] 08:22:00 Test Item Value Reference Range Comments POC-GLUCOSE METER (BEAKER) 163 mg/dL 70-110 TESTED AT [address] (test kdrb=7685) [place] [id number] CBC W/PLT COUNT & AUTO [id number] 05:45:00 Test Item Value Reference Range Comments WHITE BLOOD CELL COUNT (BEAKER) (test sbek=985) 9.6 K/ L 3.5-10.5 RED BLOOD CELL COUNT (BEAKER) (test nxdg=108) 2.63 M/ L 4.63-6.08 HEMOGLOBIN (BEAKER) (test ldxa=457) 8.2 GM/DL 13.7-17.5 HEMATOCRIT (BEAKER) (test doca=110) 27.0 % 40.1-51.0 MEAN CORPUSCULAR VOLUME (BEAKER) (test syan=751) 102.7 fL 79.0-92.2 MEAN CORPUSCULAR HEMOGLOBIN (BEAKER) (test 31.2 pg 25.7-32.2 bclq=746) MEAN CORPUSCULAR HEMOGLOBIN CONC (BEAKER) (test 30.4 GM/DL 32.3-36.5 tlkj=578) RED CELL DISTRIBUTION WIDTH (BEAKER) (test 15.8 % 11.6-14.4 civw=868) PLATELET COUNT (BEAKER) (test dzzc=903) 469 K/CU MM 150-450 MEAN PLATELET VOLUME (BEAKER) (test bwfb=794) 9.4 fL 9.4-12.4 NUCLEATED RED BLOOD CELLS (BEAKER) (test 0 /100 WBC 0-0 naju=847) NEUTROPHILS RELATIVE PERCENT (BEAKER) (test 75 % lymn=821) LYMPHOCYTES RELATIVE PERCENT (BEAKER) (test 11 % ykfi=857) MONOCYTES RELATIVE PERCENT (BEAKER) (test 7 % fpbt=374) EOSINOPHILS RELATIVE PERCENT (BEAKER) (test 6 % xlea=209) BASOPHILS RELATIVE PERCENT (BEAKER) (test 1 % tdsk=738) NEUTROPHILS ABSOLUTE COUNT (BEAKER) (test 7.13 K/ L 1.78-5.38 wjai=240) LYMPHOCYTES ABSOLUTE COUNT (BEAKER) (test 1.03 K/ L 1.32-3.57 lbhw=520) MONOCYTES ABSOLUTE COUNT (BEAKER) (test 0.71 K/ L 0.30-0.82 mwkp=314) EOSINOPHILS ABSOLUTE COUNT (BEAKER) (test 0.57 K/ L 0.04-0.54 uphz=609) BASOPHILS ABSOLUTE COUNT (BEAKER) (test 0.06 K/ L 0.01-0.08 cwqt=008) IMMATURE GRANULOCYTES-RELATIVE PERCENT (BEAKER) 1 % 0-1 (test eyjl=3762) BASIC METABOLIC [id number] 05:43:00 Test Item Value Reference Range Comments SODIUM (BEAKER) (test 131 meq/L 136-145 ftpf=560) POTASSIUM (BEAKER) (test 4.2 meq/L 3.5-5.1 mfev=443) CHLORIDE (BEAKER) (test 105 meq/L 98-107 fauj=041) CO2 (BEAKER) (test 21 meq/L 22-29 tbpm=371) BLOOD UREA NITROGEN 31 mg/dL 7-21 (BEAKER) (test ewht=852) CREATININE (BEAKER) (test 1.32 mg/dL 0.57-1.25 lbdi=151) GLUCOSE RANDOM (BEAKER) 138 mg/dL 70-105 (test mvpk=805) CALCIUM (BEAKER) (test 8.0 mg/dL 8.4-10.2 mmxh=671) EGFR (BEAKER) (test 53 mL/min/1.73 sq m ESTIMATED GFR IS NOT vpjq=5323) ACCURATE CREATININE CLEARANCE IN PREDICTING GLOMERULAR FILTRATION RATE. ESTIMATED GFR IS NOT APPLICABLE FOR DIALYSIS PATIENTS. POCT-GLUCOSE [id number] 21:11:00 Test Item Value Reference Range Comments POC-GLUCOSE METER (BEAKER) 201 mg/dL 70-110 TESTED AT [address] (test bhbh=5851) [place] [address] POCT-GLUCOSE [id number] 18:21:00 Test Item Value Reference Range Comments POC-GLUCOSE METER (BEAKER) 187 mg/dL 70-110 TESTED AT [address] (test dniv=0083) [place] [address] POCT-GLUCOSE [id number] 13:12:00 Test Item Value Reference Range Comments POC-GLUCOSE METER (BEAKER) 162 mg/dL 70-110 TESTED AT [address] (test blex=9106) [place] [address] POCT-GLUCOSE [id number] 08:08:00 Test Item Value Reference Range Comments POC-GLUCOSE METER (BEAKER) 138 mg/dL 70-110 TESTED AT [address] (test ggvo=1458) [place] [address] BASIC METABOLIC [id number] 06:47:00 Test Item Value Reference Range Comments SODIUM (BEAKER) (test 133 meq/L 136-145 xprq=514) POTASSIUM (BEAKER) (test 4.8 meq/L 3.5-5.1 oyyt=589) CHLORIDE (BEAKER) (test 105 meq/L 98-107 jloc=210) CO2 (BEAKER) (test 20 meq/L 22-29 nbab=976) BLOOD UREA NITROGEN 31 mg/dL 7-21 (BEAKER) (test bgry=998) CREATININE (BEAKER) (test 1.35 mg/dL 0.57-1.25 ppug=200) GLUCOSE RANDOM (BEAKER) 129 mg/dL 70-105 (test jidm=205) CALCIUM (BEAKER) (test 7.9 mg/dL 8.4-10.2 wjke=817) EGFR (BEAKER) (test 52 mL/min/1.73 sq m ESTIMATED GFR IS NOT fxym=9370) ACCURATE CREATININE CLEARANCE IN PREDICTING GLOMERULAR FILTRATION RATE. ESTIMATED GFR IS NOT APPLICABLE FOR DIALYSIS PATIENTS. CBC W/PLT COUNT & AUTO [id number] 05:08:00 Test Item Value Reference Range Comments WHITE BLOOD CELL COUNT (BEAKER) (test hmbf=921) 10.4 K/ L 3.5-10.5 RED BLOOD CELL COUNT (BEAKER) (test fzgg=994) 2.92 M/ L 4.63-6.08 HEMOGLOBIN (BEAKER) (test lqkr=715) 9.0 GM/DL 13.7-17.5 HEMATOCRIT (BEAKER) (test gmbv=449) 29.7 % 40.1-51.0 MEAN CORPUSCULAR VOLUME (BEAKER) (test yikp=880) 101.7 fL 79.0-92.2 MEAN CORPUSCULAR HEMOGLOBIN (BEAKER) (test 30.8 pg 25.7-32.2 hxjv=171) MEAN CORPUSCULAR HEMOGLOBIN CONC (BEAKER) (test 30.3 GM/DL 32.3-36.5 adlh=359) RED CELL DISTRIBUTION WIDTH (BEAKER) (test 15.9 % 11.6-14.4 dewv=071) PLATELET COUNT (BEAKER) (test xpde=833) 537 K/CU MM 150-450 MEAN PLATELET VOLUME (BEAKER) (test myrl=277) 9.7 fL 9.4-12.4 NUCLEATED RED BLOOD CELLS (BEAKER) (test 0 /100 WBC 0-0 kpdm=658) NEUTROPHILS RELATIVE PERCENT (BEAKER) (test 78 % wlkh=038) LYMPHOCYTES RELATIVE PERCENT (BEAKER) (test 9 % gapw=404) MONOCYTES RELATIVE PERCENT (BEAKER) (test 7 % wvwq=013) EOSINOPHILS RELATIVE PERCENT (BEAKER) (test 5 % yyol=361) BASOPHILS RELATIVE PERCENT (BEAKER) (test 1 % vemo=609) NEUTROPHILS ABSOLUTE COUNT (BEAKER) (test 8.09 K/ L 1.78-5.38 nxre=008) LYMPHOCYTES ABSOLUTE COUNT (BEAKER) (test 0.96 K/ L 1.32-3.57 poul=250) MONOCYTES ABSOLUTE COUNT (BEAKER) (test 0.68 K/ L 0.30-0.82 yvoj=800) EOSINOPHILS ABSOLUTE COUNT (BEAKER) (test 0.52 K/ L 0.04-0.54 hzfl=484) BASOPHILS ABSOLUTE COUNT (BEAKER) (test 0.05 K/ L 0.01-0.08 fijj=202) IMMATURE GRANULOCYTES-RELATIVE PERCENT (BEAKER) 1 % 0-1 (test yktb=1052) POCT-GLUCOSE [id number] 21:13:00 Test Item Value Reference Range Comments POC-GLUCOSE METER (BEAKER) 169 mg/dL 70-110 TESTED AT [address] (test vfze=4591) [facility] [address] RAD, CHEST, 1 VIEW, NON [id number] 17:14:00Reason for exam:->Chest Tube RemovalShould this be [...] MDReport Verified Date/Time: 08/11/2017 17:14:23 Reading Location: [address] Radiology Reading Room POCT-GLUCOSE [id number] 17:09:00 Test Item Value Reference Range Comments POC-GLUCOSE METER (BEAKER) 238 mg/dL 70-110 TESTED AT [address] (test hbzn=2815) [facility] [address] RAD, CHEST, 1 VIEW, NON [id number] 13:25:00Reason for exam:->pl effusionShould this be performed at the bedside?->YesFINAL REPORT AP chest HISTORY: Pleural effusion COMPARISON: 08/05/2017 IMPRESSION :Stable cardiac silhouette enlargement. Layering left effusion unchanged. Possible small right effusion. No pneumothorax. Mild vascular congestion. Signed : Manuel Fraser MDReport Verified Date/Time: 08/11/2017 13:25:17 Reading Location: [facility] Reading Room POCT-GLUCOSE [id number] 12:07:00 Test Item Value Reference Range Comments POC-GLUCOSE METER (BEAKER) 244 mg/dL 70-110 TESTED AT [address] (test tckl=2294) [facility] [address] POCT-GLUCOSE [id number] 08:49:00 Test Item Value Reference Range Comments POC-GLUCOSE METER (BEAKER) 199 mg/dL 70-110 TESTED AT [address] (test pkll=0032) [facility] [address] BASIC METABOLIC [id number] 07:01:00 Test Item Value Reference Range Comments SODIUM (BEAKER) (test 133 meq/L 136-145 dfay=914) POTASSIUM (BEAKER) (test 4.6 meq/L 3.5-5.1 kzur=060) CHLORIDE (BEAKER) (test 105 meq/L 98-107 vwdr=699) CO2 (BEAKER) (test 20 meq/L 22-29 locd=995) BLOOD UREA NITROGEN 33 mg/dL 7-21 (BEAKER) (test ezoo=858) CREATININE (BEAKER) (test 1.44 mg/dL 0.57-1.25 ubij=461) GLUCOSE RANDOM (BEAKER) 132 mg/dL 70-105 (test bwxp=895) CALCIUM (BEAKER) (test 8.1 mg/dL 8.4-10.2 jkxy=762) EGFR (BEAKER) (test 48 mL/min/1.73 sq m ESTIMATED GFR IS NOT dieo=2188) ACCURATE CREATININE CLEARANCE IN PREDICTING GLOMERULAR FILTRATION RATE. ESTIMATED GFR IS NOT APPLICABLE FOR DIALYSIS PATIENTS. CBC W/PLT COUNT & AUTO [id number] 05:42:00 Test Item Value Reference Range Comments WHITE BLOOD CELL COUNT (BEAKER) (test mdto=098) 10.9 K/ L 3.5-10.5 RED BLOOD CELL COUNT (BEAKER) (test eavn=129) 2.84 M/ L 4.63-6.08 HEMOGLOBIN (BEAKER) (test lyxc=319) 8.9 GM/DL 13.7-17.5 HEMATOCRIT (BEAKER) (test ttls=289) 30.0 % 40.1-51.0 MEAN CORPUSCULAR VOLUME (BEAKER) (test tmrx=743) 105.6 fL 79.0-92.2 MEAN CORPUSCULAR HEMOGLOBIN (BEAKER) (test 31.3 pg 25.7-32.2 xseo=544) MEAN CORPUSCULAR HEMOGLOBIN CONC (BEAKER) (test 29.7 GM/DL 32.3-36.5 nndq=614) RED CELL DISTRIBUTION WIDTH (BEAKER) (test 15.8 % 11.6-14.4 kpgb=373) PLATELET COUNT (BEAKER) (test mkfr=109) 528 K/CU MM 150-450 MEAN PLATELET VOLUME (BEAKER) (test ymei=530) 10.1 fL 9.4-12.4 NUCLEATED RED BLOOD CELLS (BEAKER) (test 0 /100 WBC 0-0 uxxc=761) NEUTROPHILS RELATIVE PERCENT (BEAKER) (test 77 % yrjr=924) LYMPHOCYTES RELATIVE PERCENT (BEAKER) (test 9 % homu=488) MONOCYTES RELATIVE PERCENT (BEAKER) (test 7 % yjiu=229) EOSINOPHILS RELATIVE PERCENT (BEAKER) (test 5 % kdfx=667) BASOPHILS RELATIVE PERCENT (BEAKER) (test 1 % fbzy=192) NEUTROPHILS ABSOLUTE COUNT (BEAKER) (test 8.44 K/ L 1.78-5.38 xnie=054) LYMPHOCYTES ABSOLUTE COUNT (BEAKER) (test 1.01 K/ L 1.32-3.57 lrtx=533) MONOCYTES ABSOLUTE COUNT (BEAKER) (test 0.75 K/ L 0.30-0.82 vlrx=062) EOSINOPHILS ABSOLUTE COUNT (BEAKER) (test 0.53 K/ L 0.04-0.54 zrri=782) BASOPHILS ABSOLUTE COUNT (BEAKER) (test 0.08 K/ L 0.01-0.08 nktn=506) IMMATURE GRANULOCYTES-RELATIVE PERCENT (BEAKER) 1 % 0-1 (test ilyx=3242) POCT-GLUCOSE [id number] 21:27:00 Test Item Value Reference Range Comments POC-GLUCOSE METER (BEAKER) 193 mg/dL 70-110 TESTED AT [address] (test jmcd=2390) [facility] [address] POCT-GLUCOSE [id number] 17:12:00 Test Item Value Reference Range Comments POC-GLUCOSE METER (BEAKER) 195 mg/dL 70-110 TESTED AT [address] (test xxox=1345) [facility] [address] POCT-GLUCOSE [id number] 12:43:00 Test Item Value Reference Range Comments POC-GLUCOSE METER (BEAKER) 215 mg/dL 70-110 TESTED AT [address] (test cffs=8304) [facility] [address] POCT-GLUCOSE [id number] 07:30:00 Test Item Value Reference Range Comments POC-GLUCOSE METER (BEAKER) 160 mg/dL 70-110 TESTED AT [address] (test qbxw=2765) [facility] [address] CBC W/PLT COUNT & AUTO [id number] 05:56:00 Test Item Value Reference Range Comments WHITE BLOOD CELL COUNT 10.0 K/ L 3.5-10.5 (BEAKER) (test cjkl=314) RED BLOOD CELL COUNT (BEAKER) 2.96 M/ L 4.63-6.08 (test llqj=887) HEMOGLOBIN (BEAKER) (test 9.1 GM/DL 13.7-17.5 bjij=286) HEMATOCRIT (BEAKER) (test 30.1 % 40.1-51.0 kgmy=156) MEAN CORPUSCULAR VOLUME 101.7 fL 79.0-92.2 (BEAKER) (test qqdi=798) MEAN CORPUSCULAR HEMOGLOBIN 30.7 pg 25.7-32.2 (BEAKER) (test mkya=224) MEAN CORPUSCULAR HEMOGLOBIN 30.2 GM/DL 32.3-36.5 CONC (BEAKER) (test bmfx=931) RED CELL DISTRIBUTION WIDTH 15.7 % 11.6-14.4 (BEAKER) (test ksmd=448) PLATELET COUNT (BEAKER) (test 510 K/CU MM 150-450 Discordant PLT result whph=007) Compared to previous one, Clinical correlation required. MEAN PLATELET VOLUME (BEAKER) 10.0 fL 9.4-12.4 (test ifma=817) NUCLEATED RED BLOOD CELLS 0 /100 WBC 0-0 (BEAKER) (test pdfg=831) NEUTROPHILS RELATIVE PERCENT 76 % (BEAKER) (test mbed=007) LYMPHOCYTES RELATIVE PERCENT 10 % (BEAKER) (test qpmi=507) MONOCYTES RELATIVE PERCENT 8 % (BEAKER) (test clwn=938) EOSINOPHILS RELATIVE PERCENT 5 % (BEAKER) (test fowt=520) BASOPHILS RELATIVE PERCENT 1 % (BEAKER) (test tutg=393) NEUTROPHILS ABSOLUTE COUNT 7.55 K/ L 1.78-5.38 (BEAKER) (test dcdc=622) LYMPHOCYTES ABSOLUTE COUNT 1.01 K/ L 1.32-3.57 (BEAKER) (test jojb=549) MONOCYTES ABSOLUTE COUNT 0.78 K/ L 0.30-0.82 (BEAKER) (test ihpr=483) EOSINOPHILS ABSOLUTE COUNT 0.48 K/ L 0.04-0.54 (BEAKER) (test sbld=122) BASOPHILS ABSOLUTE COUNT 0.06 K/ L 0.01-0.08 (BEAKER) (test fiwa=018) IMMATURE 1 % 0-1 GRANULOCYTES-RELATIVE PERCENT (BEAKER) (test dbiq=8231) BASIC METABOLIC [id number] 05:42:00 Test Item Value Reference Range Comments SODIUM (BEAKER) (test 132 meq/L 136-145 nnap=064) POTASSIUM (BEAKER) (test 4.5 meq/L 3.5-5.1 dhmx=421) CHLORIDE (BEAKER) (test 104 meq/L 98-107 kwtx=357) CO2 (BEAKER) (test 19 meq/L 22-29 klow=791) BLOOD UREA NITROGEN 30 mg/dL 7-21 (BEAKER) (test catk=875) CREATININE (BEAKER) (test 1.32 mg/dL 0.57-1.25 xjyx=309) GLUCOSE RANDOM (BEAKER) 131 mg/dL 70-105 (test rrdz=835) CALCIUM (BEAKER) (test 7.9 mg/dL 8.4-10.2 ulfg=349) EGFR (BEAKER) (test 53 mL/min/1.73 sq m ESTIMATED GFR IS NOT rmyz=8421) ACCURATE CREATININE CLEARANCE IN PREDICTING GLOMERULAR FILTRATION RATE. ESTIMATED GFR IS NOT APPLICABLE FOR DIALYSIS PATIENTS. POCT-GLUCOSE [id number] 21:16:00 Test Item Value Reference Range Comments POC-GLUCOSE METER (BEAKER) 230 mg/dL 70-110 TESTED AT [address] (test hlbc=5914) [place] [address] POCT-GLUCOSE [id number] 19:38:00 Test Item Value Reference Range Comments POC-GLUCOSE METER (BEAKER) 239 mg/dL 70-110 TESTED AT [address] (test ghbj=4569) [place] [address] BLOOD [id number] 18:00:00 Test Item Value Reference Range Comments CULTURE (BEAKER) (test ixly=1630) No growth in 5 days BLOOD [id number] 18:00:00 Test Item Value Reference Range Comments CULTURE (BEAKER) (test inmm=2379) No growth in 5 days POCT-GLUCOSE [id number] 11:57:00 Test Item Value Reference Range Comments POC-GLUCOSE METER (BEAKER) 203 mg/dL 70-110 TESTED AT [address] (test hpta=3189) [place] [address] POCT-GLUCOSE [id number] 08:50:00 Test Item Value Reference Range Comments POC-GLUCOSE METER (BEAKER) 140 mg/dL 70-110 TESTED AT [address] (test qqip=1181) [place] [address] BASIC METABOLIC [id number] 05:31:00 Test Item Value Reference Range Comments SODIUM (BEAKER) (test 134 meq/L 136-145 yyms=647) POTASSIUM (BEAKER) (test 4.7 meq/L 3.5-5.1 onmh=099) CHLORIDE (BEAKER) (test 104 meq/L 98-107 lsew=925) CO2 (BEAKER) (test 24 meq/L 22-29 utbs=095) BLOOD UREA NITROGEN 29 mg/dL 7-21 (BEAKER) (test lbuf=780) CREATININE (BEAKER) (test 1.38 mg/dL 0.57-1.25 obql=505) GLUCOSE RANDOM (BEAKER) 139 mg/dL 70-105 (test mjum=227) CALCIUM (BEAKER) (test 8.1 mg/dL 8.4-10.2 xwzj=983) EGFR (BEAKER) (test 50 mL/min/1.73 sq m ESTIMATED GFR IS NOT qbbn=0085) ACCURATE CREATININE CLEARANCE IN PREDICTING GLOMERULAR FILTRATION RATE. ESTIMATED GFR IS NOT APPLICABLE FOR DIALYSIS PATIENTS. CBC W/PLT COUNT & AUTO [id number] 05:08:00 Test Item Value Reference Range Comments WHITE BLOOD CELL COUNT (BEAKER) (test jkja=841) 11.7 K/ L 3.5-10.5 RED BLOOD CELL COUNT (BEAKER) (test dlqw=563) 3.06 M/ L 4.63-6.08 HEMOGLOBIN (BEAKER) (test erph=628) 9.8 GM/DL 13.7-17.5 HEMATOCRIT (BEAKER) (test shmx=422) 31.3 % 40.1-51.0 MEAN CORPUSCULAR VOLUME (BEAKER) (test pnrm=753) 102.3 fL 79.0-92.2 MEAN CORPUSCULAR HEMOGLOBIN (BEAKER) (test 32.0 pg 25.7-32.2 deqb=489) MEAN CORPUSCULAR HEMOGLOBIN CONC (BEAKER) (test 31.3 GM/DL 32.3-36.5 ybfk=494) RED CELL DISTRIBUTION WIDTH (BEAKER) (test 15.5 % 11.6-14.4 cjbd=687) PLATELET COUNT (BEAKER) (test oadm=081) 576 K/CU MM 150-450 MEAN PLATELET VOLUME (BEAKER) (test zvtn=910) 9.8 fL 9.4-12.4 NUCLEATED RED BLOOD CELLS (BEAKER) (test 0 /100 WBC 0-0 hktl=520) NEUTROPHILS RELATIVE PERCENT (BEAKER) (test 78 % kcpc=118) LYMPHOCYTES RELATIVE PERCENT (BEAKER) (test 8 % habk=243) MONOCYTES RELATIVE PERCENT (BEAKER) (test 6 % nwtw=150) EOSINOPHILS RELATIVE PERCENT (BEAKER) (test 5 % nrrf=616) BASOPHILS RELATIVE PERCENT (BEAKER) (test 1 % ucrw=895) NEUTROPHILS ABSOLUTE COUNT (BEAKER) (test 9.20 K/ L 1.78-5.38 fifb=922) LYMPHOCYTES ABSOLUTE COUNT (BEAKER) (test 0.98 K/ L 1.32-3.57 wfgd=646) MONOCYTES ABSOLUTE COUNT (BEAKER) (test 0.71 K/ L 0.30-0.82 cven=254) EOSINOPHILS ABSOLUTE COUNT (BEAKER) (test 0.60 K/ L 0.04-0.54 bcza=304) BASOPHILS ABSOLUTE COUNT (BEAKER) (test 0.06 K/ L 0.01-0.08 ixfb=419) IMMATURE GRANULOCYTES-RELATIVE PERCENT (BEAKER) 2 % 0-1 (test xmnc=1464) POCT-GLUCOSE [id number] 21:11:00 Test Item Value Reference Range Comments POC-GLUCOSE METER (BEAKER) 195 mg/dL 70-110 TESTED AT [address] (test lksg=5100) [facility] [address] POCT-GLUCOSE [id number] 17:47:00 Test Item Value Reference Range Comments POC-GLUCOSE METER (BEAKER) 175 mg/dL 70-110 TESTED AT [address] (test acue=0425) [facility] [address] POCT-GLUCOSE [id number] 12:31:00 Test Item Value Reference Range Comments POC-GLUCOSE METER (BEAKER) 219 mg/dL 70-110 TESTED AT [address] (test binv=1234) [place] [id number] 10:59:00 Test Item Value Reference Range Comments MAGNESIUM (BEAKER) (test snux=759) 1.9 mg/dL 1.6-2.6 BASIC METABOLIC [id number] 10:59:00 Test Item Value Reference Range Comments SODIUM (BEAKER) (test 134 meq/L 136-145 wzjf=726) POTASSIUM (BEAKER) (test 4.4 meq/L 3.5-5.1 iadv=115) CHLORIDE (BEAKER) (test 104 meq/L 98-107 udew=412) CO2 (BEAKER) (test 23 meq/L 22-29 ijeu=033) BLOOD UREA NITROGEN 29 mg/dL 7-21 (BEAKER) (test xnyk=725) CREATININE (BEAKER) (test 1.54 mg/dL 0.57-1.25 seab=039) GLUCOSE RANDOM (BEAKER) 156 mg/dL 70-105 (test npps=664) CALCIUM (BEAKER) (test 8.1 mg/dL 8.4-10.2 ljne=815) EGFR (BEAKER) (test 44 mL/min/1.73 sq m ESTIMATED GFR IS NOT nynx=2476) ACCURATE CREATININE CLEARANCE IN PREDICTING GLOMERULAR FILTRATION RATE. ESTIMATED GFR IS NOT APPLICABLE FOR DIALYSIS PATIENTS. POCT-GLUCOSE [id number] 08:13:00 Test Item Value Reference Range Comments POC-GLUCOSE METER (BEAKER) 159 mg/dL 70-110 TESTED AT [facility] [address] [facility] (test souk=1984) [facility] [address] CBC W/PLT COUNT & AUTO [id number] 05:28:00 Test Item Value Reference Range Comments WHITE BLOOD CELL COUNT (BEAKER) (test klus=288) 13.8 K/ L 3.5-10.5 RED BLOOD CELL COUNT (BEAKER) (test ijkr=723) 2.68 M/ L 4.63-6.08 HEMOGLOBIN (BEAKER) (test uieo=060) 8.3 GM/DL 13.7-17.5 HEMATOCRIT (BEAKER) (test jdcj=988) 27.7 % 40.1-51.0 MEAN CORPUSCULAR VOLUME (BEAKER) (test zekl=197) 103.4 fL 79.0-92.2 MEAN CORPUSCULAR HEMOGLOBIN (BEAKER) (test 31.0 pg 25.7-32.2 bwao=235) MEAN CORPUSCULAR HEMOGLOBIN CONC (BEAKER) (test 30.0 GM/DL 32.3-36.5 gwsf=960) RED CELL DISTRIBUTION WIDTH (BEAKER) (test 15.6 % 11.6-14.4 nbbe=039) PLATELET COUNT (BEAKER) (test zsiw=143) 541 K/CU MM 150-450 MEAN PLATELET VOLUME (BEAKER) (test yzll=740) 11.0 fL 9.4-12.4 NUCLEATED RED BLOOD CELLS (BEAKER) (test 0 /100 WBC 0-0 vicu=322) NEUTROPHILS RELATIVE PERCENT (BEAKER) (test 79 % gpzk=322) LYMPHOCYTES RELATIVE PERCENT (BEAKER) (test 8 % gzbn=406) MONOCYTES RELATIVE PERCENT (BEAKER) (test 7 % sdef=539) EOSINOPHILS RELATIVE PERCENT (BEAKER) (test 4 % hule=020) BASOPHILS RELATIVE PERCENT (BEAKER) (test 1 % hrjj=025) NEUTROPHILS ABSOLUTE COUNT (BEAKER) (test 10.87 K/ L 1.78-5.38 svas=942) LYMPHOCYTES ABSOLUTE COUNT (BEAKER) (test 1.05 K/ L 1.32-3.57 bsyk=697) MONOCYTES ABSOLUTE COUNT (BEAKER) (test 0.91 K/ L 0.30-0.82 tjbe=761) EOSINOPHILS ABSOLUTE COUNT (BEAKER) (test 0.61 K/ L 0.04-0.54 dlfs=220) BASOPHILS ABSOLUTE COUNT (BEAKER) (test 0.09 K/ L 0.01-0.08 cmgk=487) IMMATURE GRANULOCYTES-RELATIVE PERCENT (BEAKER) 2 % 0-1 (test gban=6567) POCT-GLUCOSE [id number] 21:07:00 Test Item Value Reference Range Comments POC-GLUCOSE METER (BEAKER) 201 mg/dL 70-110 TESTED AT [address] (test pmgs=1661) [place] [address] POCT-GLUCOSE [id number] 17:02:00 Test Item Value Reference Range Comments POC-GLUCOSE METER (BEAKER) 229 mg/dL 70-110 TESTED AT [address] (test lmca=7279) [place] [address] POCT-GLUCOSE [id number] 12:10:00 Test Item Value Reference Range Comments POC-GLUCOSE METER (BEAKER) 225 mg/dL 70-110 TESTED AT [address] (test jjtq=8198) [place] [address] URINE [id number] 08:57:00 Test Item Value Reference Range Comments CULTURE (BEAKER) (test qygb=0374) No growth GRAM STAIN RESULT (BEAKER) (test No WBCs iwkn=7260) GRAM STAIN RESULT (BEAKER) (test No organisms seen paec=82679) POCT-GLUCOSE [id number] 07:40:00 Test Item Value Reference Range Comments POC-GLUCOSE METER (BEAKER) 207 mg/dL 70-110 TESTED AT [address] (test oqjn=2870) [place] [address] [id number] 05:58:00 Test Item Value Reference Range Comments MAGNESIUM (BEAKER) (test xajm=209) 1.7 mg/dL 1.6-2.6 BASIC METABOLIC [id number] 05:58:00 Test Item Value Reference Range Comments SODIUM (BEAKER) (test 134 meq/L 136-145 pavy=723) POTASSIUM (BEAKER) (test 4.3 meq/L 3.5-5.1 itll=194) CHLORIDE (BEAKER) (test 104 meq/L 98-107 bhab=447) CO2 (BEAKER) (test 22 meq/L 22-29 kvla=216) BLOOD UREA NITROGEN 29 mg/dL 7-21 (BEAKER) (test qoaw=311) CREATININE (BEAKER) (test 1.39 mg/dL 0.57-1.25 kcai=123) GLUCOSE RANDOM (BEAKER) 135 mg/dL 70-105 (test scwv=869) CALCIUM (BEAKER) (test 8.2 mg/dL 8.4-10.2 letf=932) EGFR (BEAKER) (test 50 mL/min/1.73 sq m ESTIMATED GFR IS NOT wuvk=1570) ACCURATE CREATININE CLEARANCE IN PREDICTING GLOMERULAR FILTRATION RATE. ESTIMATED GFR IS NOT APPLICABLE FOR DIALYSIS PATIENTS. CBC W/PLT COUNT & AUTO [id number] 05:08:00 Test Item Value Reference Range Comments WHITE BLOOD CELL COUNT (BEAKER) (test njur=118) 14.8 K/ L 3.5-10.5 RED BLOOD CELL COUNT (BEAKER) (test cyee=744) 3.11 M/ L 4.63-6.08 HEMOGLOBIN (BEAKER) (test fvyx=616) 9.9 GM/DL 13.7-17.5 HEMATOCRIT (BEAKER) (test ivsd=584) 32.0 % 40.1-51.0 MEAN CORPUSCULAR VOLUME (BEAKER) (test qloc=609) 102.9 fL 79.0-92.2 MEAN CORPUSCULAR HEMOGLOBIN (BEAKER) (test 31.8 pg 25.7-32.2 gkbs=549) MEAN CORPUSCULAR HEMOGLOBIN CONC (BEAKER) (test 30.9 GM/DL 32.3-36.5 rxrb=289) RED CELL DISTRIBUTION WIDTH (BEAKER) (test 15.6 % 11.6-14.4 jcid=065) PLATELET COUNT (BEAKER) (test xnph=727) 580 K/CU MM 150-450 MEAN PLATELET VOLUME (BEAKER) (test grbc=667) 10.3 fL 9.4-12.4 NUCLEATED RED BLOOD CELLS (BEAKER) (test 0 /100 WBC 0-0 xnob=593) NEUTROPHILS RELATIVE PERCENT (BEAKER) (test 79 % falx=894) LYMPHOCYTES RELATIVE PERCENT (BEAKER) (test 8 % meam=656) MONOCYTES RELATIVE PERCENT (BEAKER) (test 6 % dtat=855) EOSINOPHILS RELATIVE PERCENT (BEAKER) (test 4 % rxva=293) BASOPHILS RELATIVE PERCENT (BEAKER) (test 1 % mczr=687) NEUTROPHILS ABSOLUTE COUNT (BEAKER) (test 11.68 K/ L 1.78-5.38 syds=310) LYMPHOCYTES ABSOLUTE COUNT (BEAKER) (test 1.21 K/ L 1.32-3.57 zunk=539) MONOCYTES ABSOLUTE COUNT (BEAKER) (test 0.89 K/ L 0.30-0.82 vvjr=618) EOSINOPHILS ABSOLUTE COUNT (BEAKER) (test 0.61 K/ L 0.04-0.54 mcfu=468) BASOPHILS ABSOLUTE COUNT (BEAKER) (test 0.09 K/ L 0.01-0.08 tknv=675) IMMATURE GRANULOCYTES-RELATIVE PERCENT (BEAKER) 2 % 0-1 (test ittj=5890) POCT-GLUCOSE [id number] 21:17:00 Test Item Value Reference Range Comments POC-GLUCOSE METER (BEAKER) 260 mg/dL 70-110 TESTED AT [address] (test gbhd=7058) [place] [address] POCT-GLUCOSE [id number] 17:10:00 Test Item Value Reference Range Comments POC-GLUCOSE METER (BEAKER) 190 mg/dL 70-110 TESTED AT [address] (test rfju=7135) [place] [id number] POCT-GLUCOSE [id number] 12:17:00 Test Item Value Reference Range Comments POC-GLUCOSE METER (BEAKER) 241 mg/dL 70-110 TESTED AT [address] (test ohnd=9894) [place] [address] CBC W/PLT COUNT & AUTO [id number] 08:29:00 Test Item Value Reference Range Comments WHITE BLOOD CELL COUNT (BEAKER) (test oybg=013) 16.5 K/ L 3.5-10.5 RED BLOOD CELL COUNT (BEAKER) (test lktn=018) 2.83 M/ L 4.63-6.08 HEMOGLOBIN (BEAKER) (test kqse=119) 8.8 GM/DL 13.7-17.5 HEMATOCRIT (BEAKER) (test ybwq=161) 28.8 % 40.1-51.0 MEAN CORPUSCULAR VOLUME (BEAKER) (test styp=895) 101.8 fL 79.0-92.2 MEAN CORPUSCULAR HEMOGLOBIN (BEAKER) (test 31.1 pg 25.7-32.2 wong=157) MEAN CORPUSCULAR HEMOGLOBIN CONC (BEAKER) (test 30.6 GM/DL 32.3-36.5 hjir=220) RED CELL DISTRIBUTION WIDTH (BEAKER) (test 15.4 % 11.6-14.4 buth=293) PLATELET COUNT (BEAKER) (test jhsy=868) 535 K/CU MM 150-450 MEAN PLATELET VOLUME (BEAKER) (test ghfg=931) 10.7 fL 9.4-12.4 NUCLEATED RED BLOOD CELLS (BEAKER) (test 1 /100 WBC 0-0 jqwx=136) NEUTROPHILS RELATIVE PERCENT (BEAKER) (test 78 % sapi=249) LYMPHOCYTES RELATIVE PERCENT (BEAKER) (test 9 % ztdx=769) MONOCYTES RELATIVE PERCENT (BEAKER) (test 7 % wtmc=697) EOSINOPHILS RELATIVE PERCENT (BEAKER) (test 3 % ksld=455) BASOPHILS RELATIVE PERCENT (BEAKER) (test 0 % guab=763) NEUTROPHILS ABSOLUTE COUNT (BEAKER) (test 12.77 K/ L 1.78-5.38 epbq=707) LYMPHOCYTES ABSOLUTE COUNT (BEAKER) (test 1.45 K/ L 1.32-3.57 wech=703) MONOCYTES ABSOLUTE COUNT (BEAKER) (test 1.12 K/ L 0.30-0.82 duuq=107) EOSINOPHILS ABSOLUTE COUNT (BEAKER) (test 0.55 K/ L 0.04-0.54 oepg=425) BASOPHILS ABSOLUTE COUNT (BEAKER) (test 0.07 K/ L 0.01-0.08 qmkb=619) IMMATURE GRANULOCYTES-RELATIVE PERCENT (BEAKER) 3 % 0-1 (test okeb=9368) (MANUAL DIFFERENTIAL)2017-08-06 08:29:00 Test Item Value Reference Range Comments TOTAL COUNTED (BEAKER) (test jjqb=3793) POCT-GLUCOSE [id number] 07:22:00 Test Item Value Reference Range Comments POC-GLUCOSE METER (BEAKER) 183 mg/dL 70-110 TESTED AT [address] (test kxbw=4515) [facility] [address] [id number] 06:21:00 Test Item Value Reference Range Comments MAGNESIUM (BEAKER) (test npfj=902) 1.9 mg/dL 1.6-2.6 BASIC METABOLIC [id number] 06:21:00 Test Item Value Reference Range Comments SODIUM (BEAKER) (test 134 meq/L 136-145 pdgy=021) POTASSIUM (BEAKER) (test 3.8 meq/L 3.5-5.1 mhop=267) CHLORIDE (BEAKER) (test 101 meq/L 98-107 sksm=217) CO2 (BEAKER) (test 23 meq/L 22-29 ljau=690) BLOOD UREA NITROGEN 36 mg/dL 7-21 (BEAKER) (test ppnb=336) CREATININE (BEAKER) (test 1.49 mg/dL 0.57-1.25 qylz=218) GLUCOSE RANDOM (BEAKER) 139 mg/dL 70-105 (test yuad=062) CALCIUM (BEAKER) (test 8.0 mg/dL 8.4-10.2 mgfo=730) EGFR (BEAKER) (test 46 mL/min/1.73 sq m ESTIMATED GFR IS NOT mrhv=4197) ACCURATE CREATININE CLEARANCE IN PREDICTING GLOMERULAR FILTRATION RATE. ESTIMATED GFR IS NOT APPLICABLE FOR DIALYSIS PATIENTS. BLOOD [id number] 02:41:00 Test Item Value Reference Range Comments CULTURE (BEAKER) From Aerobic Bottle Only (test jwfp=5484) Same organism has been isolated from cultures(s) of the same body site and collection date. Repeat identification and susceptibility testing performed only after consultation with the clinical microbiology laboratory.Refer to previous culture ofEnterobacter cloacae GRAM STAIN RESULT From aerobic bottle (BEAKER) (test only: gram negative logn=7440) rods ANAEROBIC [id number] 23:46:00 Test Item Value Reference Range Comments CULTURE (BEAKER) (test wbbs=3538) No anaerobes isolated POCT-GLUCOSE [id number] 20:54:00 Test Item Value Reference Range Comments POC-GLUCOSE METER (BEAKER) 241 mg/dL 70-110 TESTED AT [address] (test zdwu=1188) [facility] [address] RAD, CHEST, 1 VIEW, NON [id number] 19:11:00Reason for exam:-> leukocytosisShould this be performed [...] MDReport Verified Date/Time: 08/05/2017 19:11:15 Reading Location: [address] Reading Room POCT-GLUCOSE [id number] 18:02:00 Test Item Value Reference Range Comments POC-GLUCOSE METER (BEAKER) 169 mg/dL 70-110 TESTED AT [address] (test hbij=1947) [facility] [address] CT, BRAIN, WITHOUT [id number] 17:19:00Reason for exam:->evaluate for bleedingWhat is the [...] evaluation with MRI is recommended. Signed : Miugel Gallardo Verified Date/Time: 08/05/2017 17:19:56 Reading Location: [facility] Reading Room POCT-GLUCOSE [id number] 11:59: 00 Test Item Value Reference Range Comments POC-GLUCOSE METER (BEAKER) 220 mg/dL 70-110 TESTED AT [address] (test amgo=8515) [place] [address] URINALYSIS W/ [id number] 10:10:00 Test Item Value Reference Range Comments COLOR (BEAKER) (test ivsc=604) Yellow CLARITY (BEAKER) (test uoiq=845) Clear SPECIFIC GRAVITY UA (BEAKER) (test cprr=959) 1.015 1.001-1.035 PH UA (BEAKER) (test lpnt=732) 5.5 5.0-8.0 PROTEIN UA (BEAKER) (test ptgu=496) 10 mg/dL Negative GLUCOSE UA (BEAKER) (test xboi=439) Negative Negative KETONES UA (BEAKER) (test yohu=985) Negative Negative BILIRUBIN UA (BEAKER) (test adxs=083) Negative Negative BLOOD UA (BEAKER) (test mosn=891) Trace Negative NITRITE UA (BEAKER) (test hqsr=606) Negative Negative LEUKOCYTE ESTERASE UA (BEAKER) (test zrse=886) Large Negative UROBILINOGEN UA (BEAKER) (test bnpu=655) 3.0 mg/dL 0.2-1.0 RBC UA (BEAKER) (test ufrl=438) 1 /HPF WBC UA (BEAKER) (test zqol=828) 29 /HPF BACTERIA (BEAKER) (test zpht=916) Rare MUCUS (BEAKER) (test gquc=6277) Rare SQUAMOUS EPITHELIAL (BEAKER) (test jfey=248) < /HPF SOURCE(BEAKER) (test lxzz=5078) Urine, Frances POCT-GLUCOSE [id number] 08:49:00 Test Item Value Reference Range Comments POC-GLUCOSE METER (BEAKER) 203 mg/dL 70-110 TESTED AT [address] (test mszy=1977) [place] [id number] CBC W/PLT COUNT & AUTO [id number] 08:10:00 Test Item Value Reference Range Comments WHITE BLOOD CELL COUNT (BEAKER) (test bwse=601) 17.3 K/ L 3.5-10.5 RED BLOOD CELL COUNT (BEAKER) (test cyra=450) 2.80 M/ L 4.63-6.08 HEMOGLOBIN (BEAKER) (test dinv=367) 9.0 GM/DL 13.7-17.5 HEMATOCRIT (BEAKER) (test feji=106) 28.9 % 40.1-51.0 MEAN CORPUSCULAR VOLUME (BEAKER) (test ucdq=018) 103.2 fL 79.0-92.2 MEAN CORPUSCULAR HEMOGLOBIN (BEAKER) (test 32.1 pg 25.7-32.2 qvpi=578) MEAN CORPUSCULAR HEMOGLOBIN CONC (BEAKER) (test 31.1 GM/DL 32.3-36.5 beco=976) RED CELL DISTRIBUTION WIDTH (BEAKER) (test 15.8 % 11.6-14.4 mlea=686) PLATELET COUNT (BEAKER) (test kwbg=613) 500 K/CU MM 150-450 MEAN PLATELET VOLUME (BEAKER) (test ower=709) 10.7 fL 9.4-12.4 NUCLEATED RED BLOOD CELLS (BEAKER) (test 1 /100 WBC 0-0 oxcb=041) NEUTROPHILS RELATIVE PERCENT (BEAKER) (test 80 % zisr=697) LYMPHOCYTES RELATIVE PERCENT (BEAKER) (test 8 % aooy=939) MONOCYTES RELATIVE PERCENT (BEAKER) (test 7 % bmgj=073) EOSINOPHILS RELATIVE PERCENT (BEAKER) (test 3 % asfk=588) BASOPHILS RELATIVE PERCENT (BEAKER) (test 1 % tyjv=076) NEUTROPHILS ABSOLUTE COUNT (BEAKER) (test 13.74 K/ L 1.78-5.38 swnw=905) LYMPHOCYTES ABSOLUTE COUNT (BEAKER) (test 1.43 K/ L 1.32-3.57 fujk=886) MONOCYTES ABSOLUTE COUNT (BEAKER) (test 1.14 K/ L 0.30-0.82 yxio=872) EOSINOPHILS ABSOLUTE COUNT (BEAKER) (test 0.47 K/ L 0.04-0.54 nvvd=923) BASOPHILS ABSOLUTE COUNT (BEAKER) (test 0.09 K/ L 0.01-0.08 fgng=688) IMMATURE GRANULOCYTES-RELATIVE PERCENT (BEAKER) 2 % 0-1 (test obqp=6714) BASIC METABOLIC [id number] 05:29:00 Test Item Value Reference Range Comments SODIUM (BEAKER) (test 138 meq/L 136-145 kplt=026) POTASSIUM (BEAKER) (test 4.0 meq/L 3.5-5.1 fpnh=775) CHLORIDE (BEAKER) (test 106 meq/L 98-107 qsku=256) CO2 (BEAKER) (test 22 meq/L 22-29 bllk=487) BLOOD UREA NITROGEN 46 mg/dL 7-21 (BEAKER) (test bufd=594) CREATININE (BEAKER) (test 1.77 mg/dL 0.57-1.25 hrrf=355) GLUCOSE RANDOM (BEAKER) 162 mg/dL 70-105 (test yjlz=349) CALCIUM (BEAKER) (test 7.9 mg/dL 8.4-10.2 ekxh=589) EGFR (BEAKER) (test 38 mL/min/1.73 sq m ESTIMATED GFR IS NOT tbdu=5143) ACCURATE CREATININE CLEARANCE IN PREDICTING GLOMERULAR FILTRATION RATE. ESTIMATED GFR IS NOT APPLICABLE FOR DIALYSIS PATIENTS. [id number] 05:28:00 Test Item Value Reference Range Comments MAGNESIUM (BEAKER) (test ygro=587) 2.1 mg/dL 1.6-2.6 POCT-GLUCOSE [id number] 21:28:00 Test Item Value Reference Range Comments POC-GLUCOSE METER (BEAKER) 240 mg/dL 70-110 TESTED AT [address] (test pubt=6108) [place] [id number] POCT-GLUCOSE [id number] 18:29:00 Test Item Value Reference Range Comments POC-GLUCOSE METER (BEAKER) 255 mg/dL 70-110 TESTED AT [address] (test zjsv=3802) [place] [address] POCT-GLUCOSE [id number] 16:59:00 Test Item Value Reference Range Comments POC-GLUCOSE METER (BEAKER) 207 mg/dL 70-110 TESTED AT [address] (test vvre=6869) [place] [address] SURGICALLY OBTAINED CULTURE + GRAM [id number] 16:19:00 Test Item Value Reference Range Comments CULTURE (BEAKER) (test hnmh=6872) Amikacin (test code=1) Aztreonam (test code=32) Cefepime (test code=51) Cefoxitin (test code=68) Ceftazidime (test code=27) Ceftriaxone (test code=52) Gentamicin (test code=18) Levofloxacin (test code=22) Meropenem (test code=34) Nitrofurantoin (test code=23) Piperacillin + Tazobactam (test code=29) Tetracycline (test code=2) Tobramycin (test code=25) Trimethoprim + Sulfamethoxazole (test code=47) CULTURE (BEAKER) (test 1+ Enterobacter cloacae eprw=3043) complexAmpC Positive GRAM STAIN RESULT (BEAKER) 1+ WBCs (test slim=4003) GRAM STAIN RESULT (BEAKER) No organisms seen (test nrrj=603297) POCT-GLUCOSE [id number] 08:47:00 Test Item Value Reference Range Comments POC-GLUCOSE METER (BEAKER) 167 mg/dL 70-110 TESTED AT [facility] [address] [place] [address] (test lerm=0322) [facility] [address] BASIC METABOLIC [id number] 08:10:00 Test Item Value Reference Range Comments SODIUM (BEAKER) (test 137 meq/L 136-145 ucsg=069) POTASSIUM (BEAKER) (test 3.7 meq/L 3.5-5.1 vttt=282) CHLORIDE (BEAKER) (test 106 meq/L 98-107 yynt=626) CO2 (BEAKER) (test 21 meq/L 22-29 velt=299) BLOOD UREA NITROGEN 55 mg/dL 7-21 (BEAKER) (test meou=785) CREATININE (BEAKER) (test 2.06 mg/dL 0.57-1.25 pcud=076) GLUCOSE RANDOM (BEAKER) 168 mg/dL 70-105 (test miea=879) CALCIUM (BEAKER) (test 7.5 mg/dL 8.4-10.2 lout=678) EGFR (BEAKER) (test 32 mL/min/1.73 sq m ESTIMATED GFR IS NOT pkde=8841) ACCURATE CREATININE CLEARANCE IN PREDICTING GLOMERULAR FILTRATION RATE. ESTIMATED GFR IS NOT APPLICABLE FOR DIALYSIS PATIENTS. POCT-GLUCOSE [id number] 20:37:00 Test Item Value Reference Range Comments POC-GLUCOSE METER (BEAKER) 232 mg/dL 70-110 TESTED AT [address] (test ugwo=0801) [place] [id number] POCT-GLUCOSE [id number] 17:10:00 Test Item Value Reference Range Comments POC-GLUCOSE METER (BEAKER) 256 mg/dL 70-110 TESTED AT [address] (test qmho=2664) [place] [address] RAD, ABDOMEN/KUB, 1 VIEW [id number] 13:37:00Reason for exam:->abdominal pain,FINAL REPORT Comparison: None Discussion: Abdomen: Bowel gas pattern is nonobstructed. Evaluation for free intraperitoneal air is limited due to technique and positioning. Stentprojects over the lower abdomen and pelvis. No acute skeletal abnormality. Impression: 1. Nonspecific bowel gas pattern. Signed: Emerson Palaciosort Verified Date/Time: 08/03/2017 13:37:00 Reading Location: [address] Transitional Reading Room POCT-GLUCOSE [id number] 12:03:00 Test Item Value Reference Range Comments POC-GLUCOSE METER (BEAKER) 233 mg/dL 70-110 TESTED AT [address] (test bdkv=4889) [place] [address] RAD, CHEST, 1 VIEW, NON [id number] 08:43:00Reason for exam:->chest tubeShould this be performed [...] Pyleort Verified Date/Time: 2017 08:43:25 Reading Location: [facility] C013V Neuro Reading Room POCT- GLUCOSE [id number] 07:32:00 Test Item Value Reference Range Comments POC-GLUCOSE METER (BEAKER) 182 mg/dL 70-110 TESTED AT [facility] [address] (test nrph=7472) [facility] [address] BASIC METABOLIC [id number] 06:44:00 Test Item Value Reference Range Comments SODIUM (BEAKER) (test 135 meq/L 136-145 pmay=324) POTASSIUM (BEAKER) (test 3.5 meq/L 3.5-5.1 oofo=785) CHLORIDE (BEAKER) (test 100 meq/L 98-107 anlu=454) CO2 (BEAKER) (test 23 meq/L 22-29 phbv=184) BLOOD UREA NITROGEN 56 mg/dL 7-21 (BEAKER) (test vrje=137) CREATININE (BEAKER) (test 2.47 mg/dL 0.57-1.25 uhby=595) GLUCOSE RANDOM (BEAKER) 160 mg/dL 70-105 (test qntl=874) CALCIUM (BEAKER) (test 7.6 mg/dL 8.4-10.2 tduj=170) EGFR (BEAKER) (test 26 mL/min/1.73 sq m ESTIMATED GFR IS NOT npeb=2247) ACCURATE CREATININE CLEARANCE IN PREDICTING GLOMERULAR FILTRATION RATE. ESTIMATED GFR IS NOT APPLICABLE FOR DIALYSIS PATIENTS. BLOOD [id number] 06:14:00 Test Item Value Reference Range Comments CULTURE (BEAKER) (test sngm=1549) Amikacin (test code=1) Aztreonam (test code=32) Cefepime (test code=51) Cefoxitin (test code=68) Ceftazidime (test code=27) Ceftriaxone (test code=52) Ertapenem (test code=38) Gentamicin (test code=18) Levofloxacin (test code=22) Meropenem (test code=34) Nitrofurantoin (test code=23) Piperacillin + Tazobactam (test code=29) Tetracycline (test code=2) Tobramycin (test code=25) Trimethoprim + Sulfamethoxazole (test code=47) CULTURE (BEAKER) (test From Aerobic And zolt=8908) Anaerobic Bottles Enterobacter cloacae GRAM STAIN RESULT (BEAKER) From aerobic and (test athg=0156) anaerobic bottles: gram negative rods ENTEROBACTER CLOACAE COMPLEX DETECTEDKPC (a carbapenamase gene) not detectedFirst line therapy: cefepime or meropenemOther organisms and resistance markers not contained in this PCR panel cannot be excluded and follow-up of traditional culture results is required. This sample was tested at the [facility] Clinical Microbiology Laboratory using the [employer] Blood Culture ID Panel. This test is FDAcleared for in vitro diagnostic use and has been verified and approved by the [facility] Clinical Microbiology laboratory for clinical use. Reference Range: Not DetectedSPIN/CONCENTRATION [id number] 05:57:00 Test Item Value Reference Range Comments CONCENTRATION CHARGED (BEAKER) (test syjo=6857) Done CBC W/PLT COUNT & AUTO [id number] 05:37:00 Test Item Value Reference Range Comments WHITE BLOOD CELL COUNT (BEAKER) (test vbgs=010) 17.8 K/ L 3.5-10.5 RED BLOOD CELL COUNT (BEAKER) (test urrt=725) 2.71 M/ L 4.63-6.08 HEMOGLOBIN (BEAKER) (test qlxt=863) 8.8 GM/DL 13.7-17.5 HEMATOCRIT (BEAKER) (test fdch=773) 27.5 % 40.1-51.0 MEAN CORPUSCULAR VOLUME (BEAKER) (test arhj=399) 101.5 fL 79.0-92.2 MEAN CORPUSCULAR HEMOGLOBIN (BEAKER) (test 32.5 pg 25.7-32.2 zwjg=906) MEAN CORPUSCULAR HEMOGLOBIN CONC (BEAKER) (test 32.0 GM/DL 32.3-36.5 kali=802) RED CELL DISTRIBUTION WIDTH (BEAKER) (test 15.5 % 11.6-14.4 lpuj=096) PLATELET COUNT (BEAKER) (test llhj=070) 370 K/CU MM 150-450 MEAN PLATELET VOLUME (BEAKER) (test owgx=597) 10.8 fL 9.4-12.4 NUCLEATED RED BLOOD CELLS (BEAKER) (test 0 /100 WBC 0-0 iuee=679) NEUTROPHILS RELATIVE PERCENT (BEAKER) (test 84 % shki=560) LYMPHOCYTES RELATIVE PERCENT (BEAKER) (test 7 % ornq=162) MONOCYTES RELATIVE PERCENT (BEAKER) (test 6 % bbtj=384) EOSINOPHILS RELATIVE PERCENT (BEAKER) (test 1 % gvpz=217) BASOPHILS RELATIVE PERCENT (BEAKER) (test 0 % lryh=360) NEUTROPHILS ABSOLUTE COUNT (BEAKER) (test 14.95 K/ L 1.78-5.38 bwds=998) LYMPHOCYTES ABSOLUTE COUNT (BEAKER) (test 1.17 K/ L 1.32-3.57 mqqs=377) MONOCYTES ABSOLUTE COUNT (BEAKER) (test 1.12 K/ L 0.30-0.82 nfcr=331) EOSINOPHILS ABSOLUTE COUNT (BEAKER) (test 0.22 K/ L 0.04-0.54 yhaw=684) BASOPHILS ABSOLUTE COUNT (BEAKER) (test 0.04 K/ L 0.01-0.08 xqjg=606) IMMATURE GRANULOCYTES-RELATIVE PERCENT (BEAKER) 1 % 0-1 (test jtbu=9170) POCT-GLUCOSE [id number] 20:08:00 Test Item Value Reference Range Comments POC-GLUCOSE METER (BEAKER) 188 mg/dL 70-110 TESTED AT [address] (test nrvd=0983) [facility] [address] RAD, CHEST, 1 VIEW, NON [id number] 18:24:00Reason for exam:->chest tubeShould this be performed [...] MDReport Verified Date/Time: 08/02/2017 18:24:48 Reading Location: [address] Reading Room Electronically signed by: CJ SPENCER on 06:24 PMPOCT-GLUCOSE [id number] 17:07:00 Test Item Value Reference Range Comments POC-GLUCOSE METER (BEAKER) 183 mg/dL 70-110 TESTED AT [address] (test gdih=5848) [facility] [address] MISCELLANEOUS LAB [id number] 16:20:00 Test Item Value Reference Range Comments SCAN RESULT (test iygw=[id number]) Result comments: ENTEROBACTER CLOACAE COMPLEX DETECTED KPC (a carbapenamase gene ) not detected Firstline therapy: cefepime or meropenem Other organisms and resistance markers not contained in this PCRpanel cannot be excluded and follow- up of traditional culture results is required. This sample wastested at the [facility] Clinical Microbiology Laboratory using the [employer] [facility] Blood Culture ID Panel. This test is FDA cleared for in vitro diagnostic use and has been verified and approved by the [facility] Clinical Microbiology laboratory for clinical use. Reference Range: Not DetectedPOCT-GLUCOSE [id number] 12:45:00 Test Item Value Reference Range Comments POC-GLUCOSE METER (BEAKER) 262 mg/dL 70-110 TESTED AT [facility] [address] (test tnjc=6359) [facility] [address] CBC W/PLT COUNT & AUTO [id number] 11:23:00 Test Item Value Reference Range Comments WHITE BLOOD CELL COUNT (BEAKER) (test krjh=385) 11.9 K/ L 3.5-10.5 RED BLOOD CELL COUNT (BEAKER) (test qstx=130) 2.77 M/ L 4.63-6.08 HEMOGLOBIN (BEAKER) (test rddy=993) 8.9 GM/DL 13.7-17.5 HEMATOCRIT (BEAKER) (test fjdy=563) 28.1 % 40.1-51.0 MEAN CORPUSCULAR VOLUME (BEAKER) (test kcab=666) 101.4 fL 79.0-92.2 MEAN CORPUSCULAR HEMOGLOBIN (BEAKER) (test 32.1 pg 25.7-32.2 ecln=431) MEAN CORPUSCULAR HEMOGLOBIN CONC (BEAKER) (test 31.7 GM/DL 32.3-36.5 fuca=851) RED CELL DISTRIBUTION WIDTH (BEAKER) (test 15.4 % 11.6-14.4 uikg=959) PLATELET COUNT (BEAKER) (test lmex=635) 343 K/CU MM 150-450 MEAN PLATELET VOLUME (BEAKER) (test idrk=351) 11.3 fL 9.4-12.4 NUCLEATED RED BLOOD CELLS (BEAKER) (test 1 /100 WBC 0-0 kdez=493) NEUTROPHILS RELATIVE PERCENT (BEAKER) (test 83 % oasu=705) LYMPHOCYTES RELATIVE PERCENT (BEAKER) (test 6 % arth=382) MONOCYTES RELATIVE PERCENT (BEAKER) (test 8 % wwqk=988) EOSINOPHILS RELATIVE PERCENT (BEAKER) (test 1 % ejhd=533) BASOPHILS RELATIVE PERCENT (BEAKER) (test 0 % dncy=498) NEUTROPHILS ABSOLUTE COUNT (BEAKER) (test 9.84 K/ L 1.78-5.38 nema=645) LYMPHOCYTES ABSOLUTE COUNT (BEAKER) (test 0.73 K/ L 1.32-3.57 buna=194) MONOCYTES ABSOLUTE COUNT (BEAKER) (test 0.93 K/ L 0.30-0.82 nazk=279) EOSINOPHILS ABSOLUTE COUNT (BEAKER) (test 0.13 K/ L 0.04-0.54 uehg=557) BASOPHILS ABSOLUTE COUNT (BEAKER) (test 0.04 K/ L 0.01-0.08 oqsm=746) IMMATURE GRANULOCYTES-RELATIVE PERCENT (BEAKER) 2 % 0-1 (test uyxg=2351) (MANUAL DIFFERENTIAL)2017-08-02 11:23:00 Test Item Value Reference Range Comments TOTAL COUNTED (BEAKER) (test zxgx=0807) WBC MORPHOLOGY (BEAKER) (test wgyn=948) Normal LARGE PLT(BEAKER) (test bohv=2294) Present ACANTHOCYTES (BEAKER) (test eqgw=457) 1+ few ANISOCYTOSIS (BEAKER) (test ndwj=284) 1+ few HYPOCHROMIA (BEAKER) (test cepo=295) 1+ few MACROCYTES (BEAKER) (test mgtt=227) 1+ few POIKILOCYTES (BEAKER) (test ntuz=842) 1+ few POLYCHROMATOPHILLIC RBCS(BEAKER) (test vfmv=807) 2+ moderate POCT-GLUCOSE [id number] 07:15:00 Test Item Value Reference Range Comments POC-GLUCOSE METER (BEAKER) 218 mg/dL 70-110 TESTED AT [facility] [address] [facility] (test azwm=4294) [facility] [address] BASIC METABOLIC [id number] 06:37:00 Test Item Value Reference Range Comments SODIUM (BEAKER) (test 137 meq/L 136-145 xfdm=894) POTASSIUM (BEAKER) (test 3.6 meq/L 3.5-5.1 ftoh=545) CHLORIDE (BEAKER) (test 104 meq/L 98-107 zkpi=773) CO2 (BEAKER) (test 23 meq/L 22-29 awua=395) BLOOD UREA NITROGEN 51 mg/dL 7-21 (BEAKER) (test cvac=256) CREATININE (BEAKER) (test 2.37 mg/dL 0.57-1.25 bivv=481) GLUCOSE RANDOM (BEAKER) 242 mg/dL 70-105 (test inlz=312) CALCIUM (BEAKER) (test 7.4 mg/dL 8.4-10.2 tcsn=013) EGFR (BEAKER) (test 27 mL/min/1.73 sq m ESTIMATED GFR IS NOT ufzm=8858) ACCURATE CREATININE CLEARANCE IN PREDICTING GLOMERULAR FILTRATION RATE. ESTIMATED GFR IS NOT APPLICABLE FOR DIALYSIS PATIENTS. POCT-GLUCOSE [id number] 21:51:00 Test Item Value Reference Range Comments POC-GLUCOSE METER (BEAKER) 237 mg/dL 70-110 TESTED AT [address] (test ajrj=8432) [place] [address] POCT-GLUCOSE [id number] 17:18:00 Test Item Value Reference Range Comments POC-GLUCOSE METER (BEAKER) 175 mg/dL 70-110 TESTED AT [address] (test idch=6363) [place] [address] POCT-GLUCOSE [id number] 16:29:00 Test Item Value Reference Range Comments POC-GLUCOSE METER (BEAKER) 182 mg/dL 70-110 TESTED AT [address] (test wuou=3870) [place] [address] RAD, CHEST, 1 VIEW, NON [id number] 16:22:00Reason for exam:->Post opShould this be performed [...] MDReport Verified Date/Time: 08/01/2017 16:22:20 Reading Location: [facility] [id number] Consult Reading Room PSYCHIATRIC W/PLT COUNT & AUTO [id number] 09:03:00 Test Item Value Reference Range Comments WHITE BLOOD CELL COUNT (BEAKER) (test yotc=430) 12.3 K/ L 3.5-10.5 RED BLOOD CELL COUNT (BEAKER) (test ibvg=859) 3.13 M/ L 4.63-6.08 HEMOGLOBIN (BEAKER) (test sckr=656) 9.9 GM/DL 13.7-17.5 HEMATOCRIT (BEAKER) (test xbdy=712) 31.9 % 40.1-51.0 MEAN CORPUSCULAR VOLUME (BEAKER) (test icby=977) 101.9 fL 79.0-92.2 MEAN CORPUSCULAR HEMOGLOBIN (BEAKER) (test 31.6 pg 25.7-32.2 oxaq=706) MEAN CORPUSCULAR HEMOGLOBIN CONC (BEAKER) (test 31.0 GM/DL 32.3-36.5 kqlt=872) RED CELL DISTRIBUTION WIDTH (BEAKER) (test 15.2 % 11.6-14.4 avqq=116) PLATELET COUNT (BEAKER) (test xcjy=911) 317 K/CU MM 150-450 MEAN PLATELET VOLUME (BEAKER) (test xeem=783) 10.8 fL 9.4-12.4 NUCLEATED RED BLOOD CELLS (BEAKER) (test 1 /100 WBC 0-0 byoh=487) NEUTROPHILS RELATIVE PERCENT (BEAKER) (test 81 % hoje=364) LYMPHOCYTES RELATIVE PERCENT (BEAKER) (test 8 % qbpk=739) MONOCYTES RELATIVE PERCENT (BEAKER) (test 7 % zgfr=133) EOSINOPHILS RELATIVE PERCENT (BEAKER) (test 1 % lyzr=802) BASOPHILS RELATIVE PERCENT (BEAKER) (test 0 % zsrv=817) NEUTROPHILS ABSOLUTE COUNT (BEAKER) (test 9.99 K/ L 1.78-5.38 rvpn=827) LYMPHOCYTES ABSOLUTE COUNT (BEAKER) (test 0.94 K/ L 1.32-3.57 srsg=297) MONOCYTES ABSOLUTE COUNT (BEAKER) (test 0.88 K/ L 0.30-0.82 ffze=213) EOSINOPHILS ABSOLUTE COUNT (BEAKER) (test 0.17 K/ L 0.04-0.54 kekp=645) BASOPHILS ABSOLUTE COUNT (BEAKER) (test 0.05 K/ L 0.01-0.08 cruq=592) IMMATURE GRANULOCYTES-RELATIVE PERCENT (BEAKER) 2 % 0-1 (test vyhs=2562) (MANUAL DIFFERENTIAL)2017-08-01 09:03:00 Test Item Value Reference Range Comments TOTAL COUNTED (BEAKER) (test vvdk=6522) POCT-GLUCOSE [id number] 07:50:00 Test Item Value Reference Range Comments POC-GLUCOSE METER (BEAKER) 181 mg/dL 70-110 TESTED AT [facility] [address] (test eoak=5463) [facility] [address] CALCIUM, [id number] 06:10:00 Test Item Value Reference Range Comments CALCIUM IONIZED (BEAKER) (test owlc=173) 0.96 mmol/L 1.12-1.27 PH, BLOOD (BEAKER) (test dgec=7802) 7.38 BASIC METABOLIC [id number] 04:43:00 Test Item Value Reference Range Comments SODIUM (BEAKER) (test 140 meq/L 136-145 ivgg=732) POTASSIUM (BEAKER) (test 3.6 meq/L 3.5-5.1 jjoe=216) CHLORIDE (BEAKER) (test 104 meq/L 98-107 nkln=243) CO2 (BEAKER) (test 26 meq/L 22-29 mtwm=453) BLOOD UREA NITROGEN 42 mg/dL 7-21 (BEAKER) (test rcio=556) CREATININE (BEAKER) (test 1.91 mg/dL 0.57-1.25 jucx=192) GLUCOSE RANDOM (BEAKER) 172 mg/dL 70-105 (test bwrp=111) CALCIUM (BEAKER) (test 8.0 mg/dL 8.4-10.2 pwcj=280) EGFR (BEAKER) (test 35 mL/min/1.73 sq m ESTIMATED GFR IS NOT hzzo=1997) ACCURATE CREATININE CLEARANCE IN PREDICTING GLOMERULAR FILTRATION RATE. ESTIMATED GFR IS NOT APPLICABLE FOR DIALYSIS PATIENTS. POCT-GLUCOSE [id number] 21:15:00 Test Item Value Reference Range Comments POC-GLUCOSE METER (BEAKER) 233 mg/dL 70-110 TESTED AT [facility] [address] (test hzej=5677) [facility] [address] POCT-GLUCOSE [id number] 17:44:00 Test Item Value Reference Range Comments POC-GLUCOSE METER (BEAKER) 161 mg/dL 70-110 TESTED AT [facility] [address] (test tkkd=3380) [place] [id number] WOUND CULTURE + GRAM [id number] 13:50:00 Test Item Value Reference Range Comments CULTURE (BEAKER) (test hbnm=4974) Amikacin (test code=1) Susceptible 0-16 , Resistant [...] >40 code=47) CULTURE (BEAKER) (test 2+ Enterobacter nnxg=1416) cloacae GRAM STAIN RESULT (BEAKER) 2+ WBCs (test wycu=4404) GRAM STAIN RESULT (BEAKER) <1+ gram positive (test owbf=493723) rods POCT-GLUCOSE [id number] 12:36:00 Test Item Value Reference Range Comments POC-GLUCOSE METER (BEAKER) 189 mg/dL 70-110 TESTED AT [facility] [address] (test cztw=8894) [facility] [address] CBC W/PLT COUNT & AUTO [id number] 08:34:00 Test Item Value Reference Range Comments WHITE BLOOD CELL COUNT (BEAKER) (test xema=212) 12.2 K/ L 3.5-10.5 RED BLOOD CELL COUNT (BEAKER) (test boxf=348) 2.94 M/ L 4.63-6.08 HEMOGLOBIN (BEAKER) (test qkvu=737) 9.5 GM/DL 13.7-17.5 HEMATOCRIT (BEAKER) (test eava=040) 30.4 % 40.1-51.0 MEAN CORPUSCULAR VOLUME (BEAKER) (test usaj=194) 103.4 fL 79.0-92.2 MEAN CORPUSCULAR HEMOGLOBIN (BEAKER) (test 32.3 pg 25.7-32.2 juzu=534) MEAN CORPUSCULAR HEMOGLOBIN CONC (BEAKER) (test 31.3 GM/DL 32.3-36.5 sgbn=881) RED CELL DISTRIBUTION WIDTH (BEAKER) (test 15.4 % 11.6-14.4 gomx=619) PLATELET COUNT (BEAKER) (test blka=176) 247 K/CU MM 150-450 MEAN PLATELET VOLUME (BEAKER) (test rpby=732) 10.5 fL 9.4-12.4 NUCLEATED RED BLOOD CELLS (BEAKER) (test 1 /100 WBC 0-0 cyhi=011) NEUTROPHILS RELATIVE PERCENT (BEAKER) (test 75 % tiqt=559) LYMPHOCYTES RELATIVE PERCENT (BEAKER) (test 10 % yxsd=935) MONOCYTES RELATIVE PERCENT (BEAKER) (test 9 % jynv=379) EOSINOPHILS RELATIVE PERCENT (BEAKER) (test 3 % oeze=795) BASOPHILS RELATIVE PERCENT (BEAKER) (test 0 % unhn=200) NEUTROPHILS ABSOLUTE COUNT (BEAKER) (test 9.16 K/ L 1.78-5.38 lvur=452) LYMPHOCYTES ABSOLUTE COUNT (BEAKER) (test 1.18 K/ L 1.32-3.57 hjcq=523) MONOCYTES ABSOLUTE COUNT (BEAKER) (test 1.08 K/ L 0.30-0.82 qwnz=607) EOSINOPHILS ABSOLUTE COUNT (BEAKER) (test 0.35 K/ L 0.04-0.54 wbtz=680) BASOPHILS ABSOLUTE COUNT (BEAKER) (test 0.04 K/ L 0.01-0.08 ylfj=189) IMMATURE GRANULOCYTES-RELATIVE PERCENT (BEAKER) 3 % 0-1 (test mqdo=3538) (MANUAL DIFFERENTIAL)2017-07-31 08:34:00 Test Item Value Reference Range Comments TOTAL COUNTED (BEAKER) (test doja=7596) POCT-GLUCOSE [id number] 07:54:00 Test Item Value Reference Range Comments POC-GLUCOSE METER (BEAKER) 252 mg/dL 70-110 TESTED AT [facility] [address] (test arli=4250) [facility] [address] BASIC METABOLIC [id number] 05:51:00 Test Item Value Reference Range Comments SODIUM (BEAKER) (test 141 meq/L 136-145 hcyr=917) POTASSIUM (BEAKER) (test 3.8 meq/L 3.5-5.1 urng=321) CHLORIDE (BEAKER) (test 106 meq/L 98-107 ucnh=859) CO2 (BEAKER) (test 26 meq/L 22-29 vmwv=331) BLOOD UREA NITROGEN 46 mg/dL 7-21 (BEAKER) (test xfsn=999) CREATININE (BEAKER) (test 2.01 mg/dL 0.57-1.25 mvfl=268) GLUCOSE RANDOM (BEAKER) 165 mg/dL 70-105 (test ejae=401) CALCIUM (BEAKER) (test 7.7 mg/dL 8.4-10.2 xnqn=203) EGFR (BEAKER) (test 33 mL/min/1.73 sq m ESTIMATED GFR IS NOT ykuj=9419) ACCURATE CREATININE CLEARANCE IN PREDICTING GLOMERULAR FILTRATION RATE. ESTIMATED GFR IS NOT APPLICABLE FOR DIALYSIS PATIENTS. LIPID [id number] 05:48:00 Test Item Value Reference Range Comments TRIGLYCERIDES (BEAKER) (test nmix=480) 140 mg/dL CHOLESTEROL (BEAKER) (test dcqb=421) 106 mg/dL HDL CHOLESTEROL (BEAKER) (test hcwa=439) 19 mg/dL LDL CHOLESTEROL CALCULATED (BEAKER) (test 59 mg/dL mckf=561) Triglyceride Reference Range: Low Risk <150 Borderline 150- 199 High Risk 200-499 Very High Risk >=500Cholesterol Reference Range: Low Risk <200 Borderline 200-239 High Risk > 240HDL Cholesterol Reference Range: Low Risk >=60 High Risk <40LDL Cholesterol Reference Range: Optimal <100 Near Optimal 100-129 Borderline 130-159 High 160-189 Very High >=190POCT-GLUCOSE [id number] 21:13:00 Test Item Value Reference Range Comments POC-GLUCOSE METER (BEAKER) 193 mg/dL 70-110 TESTED AT [address] (test shfl=4239) [place] [address] POCT-GLUCOSE [id number] 17:46:00 Test Item Value Reference Range Comments POC-GLUCOSE METER (BEAKER) 214 mg/dL 70-110 TESTED AT [address] (test fgew=4225) [place] [address] [id number] 16:18:00 Test Item Value Reference Range Comments POTASSIUM (BEAKER) (test rgkq=342) 3.6 meq/L 3.5-5.1 POCT-GLUCOSE [id number] 13:06:00 Test Item Value Reference Range Comments POC-GLUCOSE METER (BEAKER) 230 mg/dL 70-110 TESTED AT [address] (test fxhh=7848) [place] [address] BASIC METABOLIC [id number] 08:41:00 Test Item Value Reference Range Comments SODIUM (BEAKER) (test 145 meq/L 136-145 fwbt=698) POTASSIUM (BEAKER) (test 3.9 meq/L 3.5-5.1 Specimen slightly dijv=759) hemolyzed CHLORIDE (BEAKER) (test 107 meq/L 98-107 ujby=488) CO2 (BEAKER) (test 25 meq/L 22-29 qdgs=847) BLOOD UREA NITROGEN 52 mg/dL 7-21 (BEAKER) (test argf=680) CREATININE (BEAKER) (test 2.09 mg/dL 0.57-1.25 Specimen slightly uyzc=176) hemolyzed GLUCOSE RANDOM (BEAKER) 170 mg/dL 70-105 (test jmcz=325) CALCIUM (BEAKER) (test 8.2 mg/dL 8.4-10.2 ngvj=710) EGFR (BEAKER) (test 31 mL/min/1.73 sq m ESTIMATED GFR IS NOT bfri=6003) ACCURATE CREATININE CLEARANCE IN PREDICTING GLOMERULAR FILTRATION RATE. ESTIMATED GFR IS NOT APPLICABLE FOR DIALYSIS PATIENTS. RAD, CHEST, 1 VIEW, NON [id number] 08:23:00Reason for exam:->pulmonary congestionShould this be performed [...] MDReport Verified Date/Time: 07/30/2017 08:23:04 Reading Location: [facility] Radiology Reading Room POCT- GLUCOSE [id number] 07:52:00 Test Item Value Reference Range Comments POC-GLUCOSE METER (BEAKER) 211 mg/dL 70-110 TESTED AT [facility] [address] [place] [address] (test thqu=5506) [facility] [address] CBC W/PLT COUNT & AUTO [id number] 04:32:00 Test Item Value Reference Range Comments WHITE BLOOD CELL COUNT (BEAKER) (test cqcn=197) 12.3 K/ L 3.5-10.5 RED BLOOD CELL COUNT (BEAKER) (test mnvw=939) 2.96 M/ L 4.63-6.08 HEMOGLOBIN (BEAKER) (test qgir=493) 9.4 GM/DL 13.7-17.5 HEMATOCRIT (BEAKER) (test pnlz=179) 30.1 % 40.1-51.0 MEAN CORPUSCULAR VOLUME (BEAKER) (test brxw=779) 101.7 fL 79.0-92.2 MEAN CORPUSCULAR HEMOGLOBIN (BEAKER) (test 31.8 pg 25.7-32.2 nedh=680) MEAN CORPUSCULAR HEMOGLOBIN CONC (BEAKER) (test 31.2 GM/DL 32.3-36.5 rvyz=500) RED CELL DISTRIBUTION WIDTH (BEAKER) (test 15.2 % 11.6-14.4 qsnr=277) PLATELET COUNT (BEAKER) (test ceeg=866) 219 K/CU MM 150-450 MEAN PLATELET VOLUME (BEAKER) (test abnb=154) 11.3 fL 9.4-12.4 NUCLEATED RED BLOOD CELLS (BEAKER) (test 2 /100 WBC 0-0 rmys=277) NEUTROPHILS RELATIVE PERCENT (BEAKER) (test 76 % prgp=549) LYMPHOCYTES RELATIVE PERCENT (BEAKER) (test 8 % ijsr=866) MONOCYTES RELATIVE PERCENT (BEAKER) (test 10 % rpyu=177) EOSINOPHILS RELATIVE PERCENT (BEAKER) (test 3 % wtxg=591) BASOPHILS RELATIVE PERCENT (BEAKER) (test 0 % lamn=333) NEUTROPHILS ABSOLUTE COUNT (BEAKER) (test 9.35 K/ L 1.78-5.38 owtk=191) LYMPHOCYTES ABSOLUTE COUNT (BEAKER) (test 0.97 K/ L 1.32-3.57 pzwe=814) MONOCYTES ABSOLUTE COUNT (BEAKER) (test 1.25 K/ L 0.30-0.82 gymo=150) EOSINOPHILS ABSOLUTE COUNT (BEAKER) (test 0.41 K/ L 0.04-0.54 tmla=400) BASOPHILS ABSOLUTE COUNT (BEAKER) (test 0.04 K/ L 0.01-0.08 avkz=393) IMMATURE GRANULOCYTES-RELATIVE PERCENT (BEAKER) 2 % 0-1 (test sntd=3584) POCT-GLUCOSE [id number] 18:50:00 Test Item Value Reference Range Comments POC-GLUCOSE METER (BEAKER) 139 mg/dL 70-110 TESTED AT [facility] [address] (test jxhr=0888) [facility] [address] [id number] 13:28:00 Test Item Value Reference Range Comments POTASSIUM (BEAKER) (test pljc=418) 3.7 meq/L 3.5-5.1 CBC W/PLT COUNT & AUTO [id number] 13:25:00 Test Item Value Reference Range Comments WHITE BLOOD CELL COUNT (BEAKER) (test bxqg=944) 11.2 K/ L 3.5-10.5 RED BLOOD CELL COUNT (BEAKER) (test znse=034) 2.67 M/ L 4.63-6.08 HEMOGLOBIN (BEAKER) (test ffwd=661) 8.8 GM/DL 13.7-17.5 HEMATOCRIT (BEAKER) (test cbwg=162) 27.3 % 40.1-51.0 MEAN CORPUSCULAR VOLUME (BEAKER) (test llkh=778) 102.2 fL 79.0-92.2 MEAN CORPUSCULAR HEMOGLOBIN (BEAKER) (test 33.0 pg 25.7-32.2 ymnp=085) MEAN CORPUSCULAR HEMOGLOBIN CONC (BEAKER) (test 32.2 GM/DL 32.3-36.5 fwqa=219) RED CELL DISTRIBUTION WIDTH (BEAKER) (test 15.3 % 11.6-14.4 ebzx=468) PLATELET COUNT (BEAKER) (test lhdi=403) 202 K/CU MM 150-450 MEAN PLATELET VOLUME (BEAKER) (test plkx=534) 11.4 fL 9.4-12.4 NUCLEATED RED BLOOD CELLS (BEAKER) (test 3 /100 WBC 0-0 cbfm=065) NEUTROPHILS RELATIVE PERCENT (BEAKER) (test 79 % vpop=351) LYMPHOCYTES RELATIVE PERCENT (BEAKER) (test 8 % rbyv=976) MONOCYTES RELATIVE PERCENT (BEAKER) (test 9 % jlgi=875) EOSINOPHILS RELATIVE PERCENT (BEAKER) (test 2 % iqyx=421) BASOPHILS RELATIVE PERCENT (BEAKER) (test 0 % irol=270) NEUTROPHILS ABSOLUTE COUNT (BEAKER) (test 8.88 K/ L 1.78-5.38 rixu=361) LYMPHOCYTES ABSOLUTE COUNT (BEAKER) (test 0.89 K/ L 1.32-3.57 jcyh=615) MONOCYTES ABSOLUTE COUNT (BEAKER) (test 1.00 K/ L 0.30-0.82 kgoh=207) EOSINOPHILS ABSOLUTE COUNT (BEAKER) (test 0.18 K/ L 0.04-0.54 wimk=709) BASOPHILS ABSOLUTE COUNT (BEAKER) (test 0.03 K/ L 0.01-0.08 adss=727) IMMATURE GRANULOCYTES-RELATIVE PERCENT (BEAKER) 2 % 0-1 (test qvbf=2767) (MANUAL DIFFERENTIAL)2017-07-29 13:25:00 Test Item Value Reference Range Comments TOTAL COUNTED (BEAKER) (test rehw=9502) POCT-GLUCOSE [id number] 12:44:00 Test Item Value Reference Range Comments POC-GLUCOSE METER (BEAKER) 251 mg/dL 70-110 TESTED AT [place] [id number] [facility] (test cypn=3725) [facility] [address] RAD, CHEST, 1 VIEW, NON [id number] 09:58:00Reason for exam:->pulmonary congestionShould this be performed [...] MDReport Verified Date/Time: 07/29/2017 09:58:36 Reading Location: [facility] Radiology Reading Room POCT-GLUCOSE [id number] 08:36:00 Test Item Value Reference Range Comments POC-GLUCOSE METER (BEAKER) 198 mg/dL 70-110 TESTED AT [address] (test vwtw=1331) [facility] [address] CALCIUM, [id number] 06:14:00 Test Item Value Reference Range Comments CALCIUM IONIZED (BEAKER) (test gfiy=484) 0.98 mmol/L 1.12-1.27 PH, BLOOD (BEAKER) (test vumz=5245) 7.43 BASIC METABOLIC [id number] 05:40:00 Test Item Value Reference Range Comments SODIUM (BEAKER) (test 146 meq/L 136-145 eyat=108) POTASSIUM (BEAKER) (test 3.3 meq/L 3.5-5.1 yirp=163) CHLORIDE (BEAKER) (test 108 meq/L 98-107 itws=726) CO2 (BEAKER) (test 26 meq/L 22-29 ziwg=165) BLOOD UREA NITROGEN 63 mg/dL 7-21 (BEAKER) (test homo=537) CREATININE (BEAKER) (test 2.25 mg/dL 0.57-1.25 zzhk=933) GLUCOSE RANDOM (BEAKER) 165 mg/dL 70-105 (test xira=797) CALCIUM (BEAKER) (test 8.2 mg/dL 8.4-10.2 bjvj=523) EGFR (BEAKER) (test 29 mL/min/1.73 sq m ESTIMATED GFR IS NOT ihoi=0324) ACCURATE CREATININE CLEARANCE IN PREDICTING GLOMERULAR FILTRATION RATE. ESTIMATED GFR IS NOT APPLICABLE FOR DIALYSIS PATIENTS. [id number] 05:36:00 Test Item Value Reference Range Comments POTASSIUM (BEAKER) (test ggcn=942) 3.3 meq/L 3.5-5.1 [id number] 05:36:00 Test Item Value Reference Range Comments MAGNESIUM (BEAKER) (test yjnj=799) 2.1 mg/dL 1.6-2.6 [id number] 01:31:00 Test Item Value Reference Range Comments POTASSIUM (BEAKER) (test xojp=164) 3.5 meq/L 3.5-5.1 [id number] 01:31:00 Test Item Value Reference Range Comments MAGNESIUM (BEAKER) (test lewq=228) 2.0 mg/dL 1.6-2.6 CALCIUM, [id number] 01:14:00 Test Item Value Reference Range Comments CALCIUM IONIZED (BEAKER) (test xfvh=791) 0.96 mmol/L 1.12-1.27 PH, BLOOD (BEAKER) (test wlyv=3476) 7.46 POCT-GLUCOSE [id number] 21:48:00 Test Item Value Reference Range Comments POC-GLUCOSE METER (BEAKER) 200 mg/dL 70-110 TESTED AT [address] (test kfqh=9972) [facility] [address] BASIC METABOLIC [id number] 20:08:00 Test Item Value Reference Range Comments SODIUM (BEAKER) (test 147 meq/L 136-145 qbke=189) POTASSIUM (BEAKER) (test 3.8 meq/L 3.5-5.1 ygep=516) CHLORIDE (BEAKER) (test 109 meq/L 98-107 gttl=116) CO2 (BEAKER) (test 26 meq/L 22-29 yesv=004) BLOOD UREA NITROGEN 66 mg/dL 7-21 (BEAKER) (test msmi=541) CREATININE (BEAKER) (test 2.32 mg/dL 0.57-1.25 kcva=661) GLUCOSE RANDOM (BEAKER) 140 mg/dL 70-105 (test hmio=853) CALCIUM (BEAKER) (test 8.8 mg/dL 8.4-10.2 bsna=391) EGFR (BEAKER) (test 28 mL/min/1.73 sq m ESTIMATED GFR IS NOT ansv=0804) ACCURATE CREATININE CLEARANCE IN PREDICTING GLOMERULAR FILTRATION RATE. ESTIMATED GFR IS NOT APPLICABLE FOR DIALYSIS PATIENTS. [id number] 19:29:00 Test Item Value Reference Range Comments POTASSIUM (BEAKER) (test fsad=679) 3.8 meq/L 3.5-5.1 [id number] 19:29:00 Test Item Value Reference Range Comments MAGNESIUM (BEAKER) (test qkgi=960) 2.2 mg/dL 1.6-2.6 CALCIUM, [id number] 19:16:00 Test Item Value Reference Range Comments CALCIUM IONIZED (BEAKER) (test apax=930) 1.04 mmol/L 1.12-1.27 PH, BLOOD (BEAKER) (test mdsx=4394) 7.48 POCT-GLUCOSE [id number] 18:17:00 Test Item Value Reference Range Comments POC-GLUCOSE METER (BEAKER) 145 mg/dL 70-110 TESTED AT [address] (test nxwn=6796) [place] [id number] POCT-GLUCOSE [id number] 18:17:00 Test Item Value Reference Range Comments POC-GLUCOSE METER (BEAKER) 99 mg/dL 70-110 TESTED AT [address] (test opmo=4922) [place] [id number] POCT-GLUCOSE [id number] 18:17:00 Test Item Value Reference Range Comments POC-GLUCOSE METER (BEAKER) 132 mg/dL 70-110 TESTED AT [address] (test negw=9685) [place] [id number] POCT-GLUCOSE [id number] 18:17:00 Test Item Value Reference Range Comments POC-GLUCOSE METER (BEAKER) 132 mg/dL 70-110 TESTED AT [address] (test faav=1371) [place] [id number] CT, BRAIN, WITHOUT [id number] 18:16:00FINAL REPORT CT head without contrast. Comparisons: [...] Taty Osborne Verified Date/Time: 07/28/2017 18:16:35 POCT-GLUCOSE [id number] 16:20: 00 Test Item Value Reference Range Comments POC-GLUCOSE METER (BEAKER) 183 mg/dL 70-110 TESTED AT [facility] [address] [place] [address] (test hytf=8892) [facility] [address] [id number] 15:02:00 Test Item Value Reference Range Comments POTASSIUM (BEAKER) (test itby=091) 3.7 meq/L 3.5-5.1 [id number] 15:02:00 Test Item Value Reference Range Comments MAGNESIUM (BEAKER) (test gkmp=453) 2.2 mg/dL 1.6-2.6 CALCIUM, [id number] 14:46:00 Test Item Value Reference Range Comments CALCIUM IONIZED (BEAKER) (test gcrn=955) 1.09 mmol/L 1.12-1.27 PH, BLOOD (BEAKER) (test mmuk=0571) 7.45 BASIC METABOLIC [id number] 11:18:00 Test Item Value Reference Range Comments SODIUM (BEAKER) (test 150 meq/L 136-145 gasf=313) POTASSIUM (BEAKER) (test 3.7 meq/L 3.5-5.1 nevm=920) CHLORIDE (BEAKER) (test 112 meq/L 98-107 mvoq=552) CO2 (BEAKER) (test 27 meq/L 22-29 nauc=823) BLOOD UREA NITROGEN 64 mg/dL 7-21 (BEAKER) (test xclt=695) CREATININE (BEAKER) (test 2.30 mg/dL 0.57-1.25 vezn=932) GLUCOSE RANDOM (BEAKER) 135 mg/dL 70-105 (test ytbr=989) CALCIUM (BEAKER) (test 8.8 mg/dL 8.4-10.2 yxth=974) EGFR (BEAKER) (test 28 mL/min/1.73 sq m ESTIMATED GFR IS NOT yhho=0680) ACCURATE CREATININE CLEARANCE IN PREDICTING GLOMERULAR FILTRATION RATE. ESTIMATED GFR IS NOT APPLICABLE FOR DIALYSIS PATIENTS. RAD, CHEST, 1 VIEW, NON [id number] 08:31:00Reason for exam:->pulmonary congestionShould this be performed [...] MDReport Verified Date/Time: 07/28/2017 08:31:10 Reading Location: [facility] Radiology Reading Room BASIC METABOLIC [id number] 06:16 :00 Test Item Value Reference Range Comments SODIUM (BEAKER) (test 149 meq/L 136-145 zehg=492) POTASSIUM (BEAKER) (test 4.0 meq/L 3.5-5.1 Specimen slightly wqke=171) hemolyzed CHLORIDE (BEAKER) (test 112 meq/L 98-107 xgfm=251) CO2 (BEAKER) (test 25 meq/L 22-29 cvdc=161) BLOOD UREA NITROGEN 61 mg/dL 7-21 (BEAKER) (test evob=058) CREATININE (BEAKER) (test 2.28 mg/dL 0.57-1.25 Specimen slightly rrxa=860) hemolyzed GLUCOSE RANDOM (BEAKER) 127 mg/dL 70-105 (test tdjr=445) CALCIUM (BEAKER) (test 8.6 mg/dL 8.4-10.2 flbu=899) EGFR (BEAKER) (test 28 mL/min/1.73 sq m ESTIMATED GFR IS NOT soya=9690) ACCURATE CREATININE CLEARANCE IN PREDICTING GLOMERULAR FILTRATION RATE. ESTIMATED GFR IS NOT APPLICABLE FOR DIALYSIS PATIENTS. [id number] 06:07:00 Test Item Value Reference Range Comments MAGNESIUM (BEAKER) (test 2.3 mg/dL 1.6-2.6 Specimen slightly hemolyzed otyz=749) [id number] 06:07:00 Test Item Value Reference Range Comments PHOSPHORUS (BEAKER) (test 3.5 mg/dL 2.3-4.7 Specimen slightly hemolyzed oohu=160) [id number] 06:07:00 Test Item Value Reference Range Comments POTASSIUM (BEAKER) (test 4.0 meq/L 3.5-5.1 Specimen slightly hemolyzed wjvh=273) CBC W/PLT COUNT & AUTO [id number] 05:51:00 Test Item Value Reference Range Comments WHITE BLOOD CELL COUNT (BEAKER) (test zmuc=649) 9.2 K/ L 3.5-10.5 RED BLOOD CELL COUNT (BEAKER) (test iwdm=327) 2.77 M/ L 4.63-6.08 HEMOGLOBIN (BEAKER) (test luzx=300) 9.0 GM/DL 13.7-17.5 HEMATOCRIT (BEAKER) (test zwvb=207) 28.0 % 40.1-51.0 MEAN CORPUSCULAR VOLUME (BEAKER) (test ulel=812) 101.1 fL 79.0-92.2 MEAN CORPUSCULAR HEMOGLOBIN (BEAKER) (test 32.5 pg 25.7-32.2 liti=327) MEAN CORPUSCULAR HEMOGLOBIN CONC (BEAKER) (test 32.1 GM/DL 32.3-36.5 wxmb=906) RED CELL DISTRIBUTION WIDTH (BEAKER) (test 14.9 % 11.6-14.4 qksr=619) PLATELET COUNT (BEAKER) (test wxdj=003) 157 K/CU MM 150-450 MEAN PLATELET VOLUME (BEAKER) (test znfi=681) 12.4 fL 9.4-12.4 NUCLEATED RED BLOOD CELLS (BEAKER) (test 1 /100 WBC 0-0 pkxn=864) IMMATURE GRANULOCYTES-RELATIVE PERCENT (BEAKER) 1 % 0-1 (test uhiv=8130) CALCIUM, [id number] 05:13:00 Test Item Value Reference Range Comments CALCIUM IONIZED (BEAKER) (test emot=097) 1.09 mmol/L 1.12-1.27 PH, BLOOD (BEAKER) (test hhli=7638) 7.45 [id number] 00:51:00 Test Item Value Reference Range Comments POTASSIUM (BEAKER) (test fajr=179) 4.1 meq/L 3.5-5.1 [id number] 00:51:00 Test Item Value Reference Range Comments MAGNESIUM (BEAKER) (test adat=035) 2.2 mg/dL 1.6-2.6 CALCIUM, [id number] 00:46:00 Test Item Value Reference Range Comments CALCIUM IONIZED (BEAKER) (test bsoa=966) 1.11 mmol/L 1.12-1.27 PH, BLOOD (BEAKER) (test jvdj=2485) 7.47 POCT-GLUCOSE [id number] 22:39:00 Test Item Value Reference Range Comments POC-GLUCOSE METER (BEAKER) 167 mg/dL 70-110 TESTED AT [facility] [address] [facility] (test rvrs=6331) [facility] [address] BASIC METABOLIC [id number] 21:20:00 Test Item Value Reference Range Comments SODIUM (BEAKER) (test 148 meq/L 136-145 knpd=010) POTASSIUM (BEAKER) (test 3.9 meq/L 3.5-5.1 cbta=702) CHLORIDE (BEAKER) (test 111 meq/L 98-107 bnoh=279) CO2 (BEAKER) (test 28 meq/L 22-29 qflu=277) BLOOD UREA NITROGEN 53 mg/dL 7-21 (BEAKER) (test ttsp=662) CREATININE (BEAKER) (test 2.26 mg/dL 0.57-1.25 wbsn=285) GLUCOSE RANDOM (BEAKER) 138 mg/dL 70-105 (test swny=828) CALCIUM (BEAKER) (test 9.2 mg/dL 8.4-10.2 bqik=634) EGFR (BEAKER) (test 29 mL/min/1.73 sq m ESTIMATED GFR IS NOT qywd=4042) ACCURATE CREATININE CLEARANCE IN PREDICTING GLOMERULAR FILTRATION RATE. ESTIMATED GFR IS NOT APPLICABLE FOR DIALYSIS PATIENTS. [id number] 18:54:00 Test Item Value Reference Range Comments POTASSIUM (BEAKER) (test foaw=542) 4.0 meq/L 3.5-5.1 [id number] 18:54:00 Test Item Value Reference Range Comments MAGNESIUM (BEAKER) (test uvar=010) 2.3 mg/dL 1.6-2.6 CALCIUM, [id number] 18:10:00 Test Item Value Reference Range Comments CALCIUM IONIZED (BEAKER) (test ayyo=107) 1.13 mmol/L 1.12-1.27 PH, BLOOD (BEAKER) (test febs=4277) 7.46 BASIC METABOLIC [id number] 09:04:00 Test Item Value Reference Range Comments SODIUM (BEAKER) (test 146 meq/L 136-145 kcyb=378) POTASSIUM (BEAKER) (test 4.0 meq/L 3.5-5.1 gitp=919) CHLORIDE (BEAKER) (test 111 meq/L 98-107 rbwj=945) CO2 (BEAKER) (test 26 meq/L 22-29 ccmq=624) BLOOD UREA NITROGEN 46 mg/dL 7-21 (BEAKER) (test drdk=766) CREATININE (BEAKER) (test 2.35 mg/dL 0.57-1.25 bqfa=234) GLUCOSE RANDOM (BEAKER) 152 mg/dL 70-105 (test ngjc=493) CALCIUM (BEAKER) (test 9.0 mg/dL 8.4-10.2 trpe=048) EGFR (BEAKER) (test 27 mL/min/1.73 sq m ESTIMATED GFR IS NOT zsoi=6104) ACCURATE CREATININE CLEARANCE IN PREDICTING GLOMERULAR FILTRATION RATE. ESTIMATED GFR IS NOT APPLICABLE FOR DIALYSIS PATIENTS. RAD, CHEST, 1 VIEW, NON [id number] 05:14:00Reason for exam:->chest tubesFINAL REPORT Chest one [...] MDReport Verified Date/Time: 2017 05:14:18 Reading Location: [address] Transitional Reading Room Electronically signed by: TAYLOR ALVARADO MD on07/27/2017 05:14 AMCALCIUM , [id number] 04:52:00 Test Item Value Reference Range Comments CALCIUM IONIZED (BEAKER) (test mdwe=854) 1.13 mmol/L 1.12-1.27 PH, BLOOD (BEAKER) (test xeth=8815) 7.40 BASIC METABOLIC [id number] 04:49:00 Test Item Value Reference Range Comments SODIUM (BEAKER) (test 146 meq/L 136-145 eeqt=990) POTASSIUM (BEAKER) (test 4.1 meq/L 3.5-5.1 vonh=675) CHLORIDE (BEAKER) (test 111 meq/L 98-107 lqtb=328) CO2 (BEAKER) (test 24 meq/L 22-29 gsfr=855) BLOOD UREA NITROGEN 42 mg/dL 7-21 (BEAKER) (test ogdi=429) CREATININE (BEAKER) (test 2.41 mg/dL 0.57-1.25 abej=853) GLUCOSE RANDOM (BEAKER) 149 mg/dL 70-105 (test dgjy=474) CALCIUM (BEAKER) (test 9.5 mg/dL 8.4-10.2 jhpb=590) EGFR (BEAKER) (test 26 mL/min/1.73 sq m ESTIMATED GFR IS NOT kzkw=6680) ACCURATE CREATININE CLEARANCE IN PREDICTING GLOMERULAR FILTRATION RATE. ESTIMATED GFR IS NOT APPLICABLE FOR DIALYSIS PATIENTS. OXYGEN SATURATION, [id number] 04:36:00 Test Item Value Reference Range Comments O2 SATURATION (MEASURED) (BEAKER) (test wuve=7615) 59.2 % [id number] 04:35:00 Test Item Value Reference Range Comments POTASSIUM (BEAKER) (test yyqw=731) 4.1 meq/L 3.5-5.1 [id number] 04:35:00 Test Item Value Reference Range Comments MAGNESIUM (BEAKER) (test gngf=707) 2.0 mg/dL 1.6-2.6 [id number] 04:35:00 Test Item Value Reference Range Comments PHOSPHORUS (BEAKER) (test beqj=856) 4.5 mg/dL 2.3-4.7 LACTIC ACID, ARTERIAL, WHOLE [id number] 04:16:00 Test Item Value Reference Range Comments LACTATE BLOOD ARTERIAL (2) (BEAKER) (test 1.3 mmol/L 0.5-2.2 wgcj=0360) Effective 09/27/2015: Units/Reference Range ChangeNew: 0.5-2.2 mmol/L Previous: 5 -20 mg/dLCBC W/PLT COUNT & AUTO [id number] 04:07:00 Test Item Value Reference Range Comments WHITE BLOOD CELL COUNT (BEAKER) (test zwgj=564) 11.9 K/ L 3.5-10.5 RED BLOOD CELL COUNT (BEAKER) (test rxpt=866) 2.67 M/ L 4.63-6.08 HEMOGLOBIN (BEAKER) (test kido=281) 9.0 GM/DL 13.7-17.5 HEMATOCRIT (BEAKER) (test nywc=039) 26.9 % 40.1-51.0 MEAN CORPUSCULAR VOLUME (BEAKER) (test kprl=371) 100.7 fL 79.0-92.2 MEAN CORPUSCULAR HEMOGLOBIN (BEAKER) (test 33.7 pg 25.7-32.2 cqfg=595) MEAN CORPUSCULAR HEMOGLOBIN CONC (BEAKER) (test 33.5 GM/DL 32.3-36.5 kuso=892) RED CELL DISTRIBUTION WIDTH (BEAKER) (test 14.9 % 11.6-14.4 wezk=971) PLATELET COUNT (BEAKER) (test ogag=206) 137 K/CU MM 150-450 MEAN PLATELET VOLUME (BEAKER) (test tzxh=869) 11.3 fL 9.4-12.4 NUCLEATED RED BLOOD CELLS (BEAKER) (test 0 /100 WBC 0-0 yfho=022) NEUTROPHILS RELATIVE PERCENT (BEAKER) (test 84 % rxia=143) LYMPHOCYTES RELATIVE PERCENT (BEAKER) (test 7 % wstj=009) MONOCYTES RELATIVE PERCENT (BEAKER) (test 6 % seog=318) EOSINOPHILS RELATIVE PERCENT (BEAKER) (test 2 % nljh=490) BASOPHILS RELATIVE PERCENT (BEAKER) (test 0 % tufi=631) NEUTROPHILS ABSOLUTE COUNT (BEAKER) (test 10.05 K/ L 1.78-5.38 ubxa=332) LYMPHOCYTES ABSOLUTE COUNT (BEAKER) (test 0.78 K/ L 1.32-3.57 lsor=061) MONOCYTES ABSOLUTE COUNT (BEAKER) (test 0.70 K/ L 0.30-0.82 vkiz=999) EOSINOPHILS ABSOLUTE COUNT (BEAKER) (test 0.26 K/ L 0.04-0.54 ygxf=482) BASOPHILS ABSOLUTE COUNT (BEAKER) (test 0.02 K/ L 0.01-0.08 ijfm=379) IMMATURE GRANULOCYTES-RELATIVE PERCENT (BEAKER) 1 % 0-1 (test rczh=4923) BASIC METABOLIC [id number] 20:45:00 Test Item Value Reference Range Comments SODIUM (BEAKER) (test 146 meq/L 136-145 toos=223) POTASSIUM (BEAKER) (test 4.1 meq/L 3.5-5.1 kdob=142) CHLORIDE (BEAKER) (test 111 meq/L 98-107 yxlp=526) CO2 (BEAKER) (test 24 meq/L 22-29 wnnr=677) BLOOD UREA NITROGEN 38 mg/dL 7-21 (BEAKER) (test hwlb=303) CREATININE (BEAKER) (test 2.48 mg/dL 0.57-1.25 djva=330) GLUCOSE RANDOM (BEAKER) 109 mg/dL 70-105 (test pbmx=944) CALCIUM (BEAKER) (test 9.4 mg/dL 8.4-10.2 dbkz=738) EGFR (BEAKER) (test 26 mL/min/1.73 sq m ESTIMATED GFR IS NOT inin=1382) ACCURATE CREATININE CLEARANCE IN PREDICTING GLOMERULAR FILTRATION RATE. ESTIMATED GFR IS NOT APPLICABLE FOR DIALYSIS PATIENTS. BLOOD GAS, [id number] 20:35:00 Test Item Value Reference Range Comments PH ARTERIAL (BEAKER) (test dgow=089) 7.48 7.35-7.45 PCO2 ARTERIAL (BEAKER) (test wpry=725) 34 mmHg 35-45 PO2 ARTERIAL (BEAKER) (test hemw=150) 114 mmHg 80-90 O2 SATURATION ARTERIAL (BEAKER) (test epmc=037) 98.4 % 96.0-97.0 HCO3 ARTERIAL (BEAKER) (test bmxv=181) 25 mmol/L 21-29 BASE EXCESS ARTERIAL (BEAKER) (test lddq=381) 1.6 mmol/L -2.0-3.0 PATIENT TEMPERATURE (BEAKER) (test lwqe=9664) 37.3 C FIO2 (BEAKER) (test skha=6249) 52.0 % BLOOD GAS, [id number] 19:21:00 Test Item Value Reference Range Comments PH ARTERIAL (BEAKER) (test hhdv=068) 7.47 7.35-7.45 PCO2 ARTERIAL (BEAKER) (test ndlg=915) 36 mmHg 35-45 PO2 ARTERIAL (BEAKER) (test lonk=439) 141 mmHg 80-90 O2 SATURATION ARTERIAL (BEAKER) (test luqt=874) 98.9 % 96.0-97.0 HCO3 ARTERIAL (BEAKER) (test fnsq=437) 26 mmol/L 21-29 BASE EXCESS ARTERIAL (BEAKER) (test xgck=069) 2.3 mmol/L -2.0-3.0 PATIENT TEMPERATURE (BEAKER) (test nmbg=1334) 37.1 C FIO2 (BEAKER) (test ffmx=3521) 100.0 % BASIC METABOLIC [id number] 17:33:00 Test Item Value Reference Range Comments SODIUM (BEAKER) (test 146 meq/L 136-145 hmyo=920) POTASSIUM (BEAKER) (test 4.2 meq/L 3.5-5.1 gyhn=847) CHLORIDE (BEAKER) (test 111 meq/L 98-107 agxs=726) CO2 (BEAKER) (test 27 meq/L 22-29 vawn=093) BLOOD UREA NITROGEN 34 mg/dL 7-21 (BEAKER) (test mrys=385) CREATININE (BEAKER) (test 2.54 mg/dL 0.57-1.25 zxoc=039) GLUCOSE RANDOM (BEAKER) 112 mg/dL 70-105 (test lume=751) CALCIUM (BEAKER) (test 9.6 mg/dL 8.4-10.2 jnxh=929) EGFR (BEAKER) (test 25 mL/min/1.73 sq m ESTIMATED GFR IS NOT yslp=7417) ACCURATE CREATININE CLEARANCE IN PREDICTING GLOMERULAR FILTRATION RATE. ESTIMATED GFR IS NOT APPLICABLE FOR DIALYSIS PATIENTS. [id number] 17:29:00 Test Item Value Reference Range Comments POTASSIUM (BEAKER) (test tpid=587) 4.2 meq/L 3.5-5.1 [id number] 17:29:00 Test Item Value Reference Range Comments MAGNESIUM (BEAKER) (test ksct=139) 2.1 mg/dL 1.6-2.6 CBC W/PLT COUNT & AUTO [id number] 17:14:00 Test Item Value Reference Range Comments WHITE BLOOD CELL COUNT (BEAKER) (test lhon=182) 13.2 K/ L 3.5-10.5 RED BLOOD CELL COUNT (BEAKER) (test vyer=310) 2.95 M/ L 4.63-6.08 HEMOGLOBIN (BEAKER) (test tqxd=406) 9.6 GM/DL 13.7-17.5 HEMATOCRIT (BEAKER) (test lnxf=621) 29.2 % 40.1-51.0 MEAN CORPUSCULAR VOLUME (BEAKER) (test vsff=113) 99.0 fL 79.0-92.2 MEAN CORPUSCULAR HEMOGLOBIN (BEAKER) (test 32.5 pg 25.7-32.2 luor=194) MEAN CORPUSCULAR HEMOGLOBIN CONC (BEAKER) (test 32.9 GM/DL 32.3-36.5 kjsb=881) RED CELL DISTRIBUTION WIDTH (BEAKER) (test 14.9 % 11.6-14.4 cdxj=612) PLATELET COUNT (BEAKER) (test iwpj=739) 139 K/CU MM 150-450 MEAN PLATELET VOLUME (BEAKER) (test gvzo=385) 12.0 fL 9.4-12.4 NUCLEATED RED BLOOD CELLS (BEAKER) (test 0 /100 WBC 0-0 lube=945) NEUTROPHILS RELATIVE PERCENT (BEAKER) (test 83 % urjt=195) LYMPHOCYTES RELATIVE PERCENT (BEAKER) (test 7 % dxsm=901) MONOCYTES RELATIVE PERCENT (BEAKER) (test 7 % qdrh=100) EOSINOPHILS RELATIVE PERCENT (BEAKER) (test 2 % jaba=209) BASOPHILS RELATIVE PERCENT (BEAKER) (test 0 % dhdf=142) NEUTROPHILS ABSOLUTE COUNT (BEAKER) (test 10.94 K/ L 1.78-5.38 ykhe=841) LYMPHOCYTES ABSOLUTE COUNT (BEAKER) (test 0.91 K/ L 1.32-3.57 vkxq=102) MONOCYTES ABSOLUTE COUNT (BEAKER) (test 0.98 K/ L 0.30-0.82 ceou=539) EOSINOPHILS ABSOLUTE COUNT (BEAKER) (test 0.22 K/ L 0.04-0.54 tkiy=115) BASOPHILS ABSOLUTE COUNT (BEAKER) (test 0.04 K/ L 0.01-0.08 ahvk=392) IMMATURE GRANULOCYTES-RELATIVE PERCENT (BEAKER) 1 % 0-1 (test boaf=1775) CALCIUM, [id number] 16:53:00 Test Item Value Reference Range Comments CALCIUM IONIZED (BEAKER) (test lsoi=243) 1.16 mmol/L 1.12-1.27 PH, BLOOD (BEAKER) (test oxbd=3602) 7.47 BLOOD GAS, [id number] 14:56:00 Test Item Value Reference Range Comments PH ARTERIAL (BEAKER) (test wloa=040) 7.48 7.35-7.45 PCO2 ARTERIAL (BEAKER) (test gszy=321) 36 mmHg 35-45 PO2 ARTERIAL (BEAKER) (test dvsd=316) 150 mmHg 80-90 O2 SATURATION ARTERIAL (BEAKER) (test fnta=553) 99.1 % 96.0-97.0 HCO3 ARTERIAL (BEAKER) (test jjdb=979) 27 mmol/L 21-29 BASE EXCESS ARTERIAL (BEAKER) (test yaly=515) 2.9 mmol/L -2.0-3.0 PATIENT TEMPERATURE (BEAKER) (test ctvt=7801) 36.7 C FIO2 (BEAKER) (test mwyr=5704) 40.0 % [id number] 13:15:00 Test Item Value Reference Range Comments POTASSIUM (BEAKER) (test movm=488) 4.2 meq/L 3.5-5.1 [id number] 13:15:00 Test Item Value Reference Range Comments MAGNESIUM (BEAKER) (test dwch=904) 2.2 mg/dL 1.6-2.6 CALCIUM, [id number] 12:44:00 Test Item Value Reference Range Comments CALCIUM IONIZED (BEAKER) (test pdyd=803) 1.18 mmol/L 1.12-1.27 PH, BLOOD (BEAKER) (test phpo=2241) 7.47 BASIC METABOLIC [id number] 10:34:00 Test Item Value Reference Range Comments SODIUM (BEAKER) (test 145 meq/L 136-145 beze=678) POTASSIUM (BEAKER) (test 4.0 meq/L 3.5-5.1 iytt=168) CHLORIDE (BEAKER) (test 112 meq/L 98-107 hnax=224) CO2 (BEAKER) (test 23 meq/L 22-29 ndkm=480) BLOOD UREA NITROGEN 31 mg/dL 7-21 (BEAKER) (test zbpb=765) CREATININE (BEAKER) (test 2.49 mg/dL 0.57-1.25 rggf=380) GLUCOSE RANDOM (BEAKER) 127 mg/dL 70-105 (test ktcv=892) CALCIUM (BEAKER) (test 10.1 mg/dL 8.4-10.2 izru=464) EGFR (BEAKER) (test 25 mL/min/1.73 sq m ESTIMATED GFR IS NOT trxw=1522) ACCURATE CREATININE CLEARANCE IN PREDICTING GLOMERULAR FILTRATION RATE. ESTIMATED GFR IS NOT APPLICABLE FOR DIALYSIS PATIENTS. BLOOD GAS, [id number] 09:31:00 Test Item Value Reference Range Comments PH ARTERIAL (BEAKER) (test zgoo=167) 7.48 7.35-7.45 PCO2 ARTERIAL (BEAKER) (test pbjt=942) 33 mmHg 35-45 PO2 ARTERIAL (BEAKER) (test uyey=659) 112 mmHg 80-90 O2 SATURATION ARTERIAL (BEAKER) (test yuxg=937) 98.4 % 96.0-97.0 HCO3 ARTERIAL (BEAKER) (test sykb=393) 24 mmol/L 21-29 BASE EXCESS ARTERIAL (BEAKER) (test atss=489) 1.0 mmol/L -2.0-3.0 PATIENT TEMPERATURE (BEAKER) (test phdg=3517) 36.7 C FIO2 (BEAKER) (test knie=7217) 40.0 % RAD, CHEST, 1 VIEW, NON [id number] 08:44:00Reason for exam:->chest tubesFINAL REPORT CHEST ONE [...] DelatorreMDReport Verified Date/Time: 07/26/2017 08:44:33 Reading Location: [facility] [id number] Ortho Consult Reading Room Electronically signed by: KERI DELATORRE MD on 2017 08:44 AMPOCT-GLUCOSE [id number] 07:25:00 Test Item Value Reference Range Comments POC-GLUCOSE METER (BEAKER) 120 mg/dL 70-110 TESTED AT [address] (test odpu=5058) [facility] [address] BASIC METABOLIC [id number] 05:41:00 Test Item Value Reference Range Comments SODIUM (BEAKER) (test 145 meq/L 136-145 auor=521) POTASSIUM (BEAKER) (test 4.1 meq/L 3.5-5.1 lkqu=932) CHLORIDE (BEAKER) (test 112 meq/L 98-107 xpee=097) CO2 (BEAKER) (test 21 meq/L 22-29 fhuh=926) BLOOD UREA NITROGEN 29 mg/dL 7-21 (BEAKER) (test bvsq=815) CREATININE (BEAKER) (test 2.50 mg/dL 0.57-1.25 jult=384) GLUCOSE RANDOM (BEAKER) 126 mg/dL 70-105 (test duho=286) CALCIUM (BEAKER) (test 8.3 mg/dL 8.4-10.2 iybb=519) EGFR (BEAKER) (test 25 mL/min/1.73 sq m ESTIMATED GFR IS NOT csnc=3306) ACCURATE CREATININE CLEARANCE IN PREDICTING GLOMERULAR FILTRATION RATE. ESTIMATED GFR IS NOT APPLICABLE FOR DIALYSIS PATIENTS. OXYGEN SATURATION, [id number] 05:34:00 Test Item Value Reference Range Comments O2 SATURATION (MEASURED) (BEAKER) (test hzxo=0661) 59.2 % [id number] 05:33:00 Test Item Value Reference Range Comments PHOSPHORUS (BEAKER) (test qamm=078) 4.7 mg/dL 2.3-4.7 [id number] 05:33:00 Test Item Value Reference Range Comments MAGNESIUM (BEAKER) (test diqt=055) 2.2 mg/dL 1.6-2.6 CALCIUM, [id number] 05:31:00 Test Item Value Reference Range Comments CALCIUM IONIZED (BEAKER) (test lehn=171) 0.98 mmol/L 1.12-1.27 PH, BLOOD (BEAKER) (test uzxg=4545) 7.39 CBC W/PLT COUNT & AUTO [id number] 05:00:00 Test Item Value Reference Range Comments WHITE BLOOD CELL COUNT (BEAKER) (test wxwb=789) 12.8 K/ L 3.5-10.5 RED BLOOD CELL COUNT (BEAKER) (test szib=458) 2.87 M/ L 4.63-6.08 HEMOGLOBIN (BEAKER) (test jcli=768) 9.4 GM/DL 13.7-17.5 HEMATOCRIT (BEAKER) (test xtsw=115) 28.5 % 40.1-51.0 MEAN CORPUSCULAR VOLUME (BEAKER) (test incr=167) 99.3 fL 79.0-92.2 MEAN CORPUSCULAR HEMOGLOBIN (BEAKER) (test 32.8 pg 25.7-32.2 zuqb=252) MEAN CORPUSCULAR HEMOGLOBIN CONC (BEAKER) (test 33.0 GM/DL 32.3-36.5 ogan=685) RED CELL DISTRIBUTION WIDTH (BEAKER) (test 14.9 % 11.6-14.4 ynde=832) PLATELET COUNT (BEAKER) (test ptws=044) 134 K/CU MM 150-450 MEAN PLATELET VOLUME (BEAKER) (test wgmn=071) 12.5 fL 9.4-12.4 NUCLEATED RED BLOOD CELLS (BEAKER) (test 0 /100 WBC 0-0 nxgq=006) NEUTROPHILS RELATIVE PERCENT (BEAKER) (test 86 % vfms=142) LYMPHOCYTES RELATIVE PERCENT (BEAKER) (test 5 % ccah=012) MONOCYTES RELATIVE PERCENT (BEAKER) (test 7 % iyfk=977) EOSINOPHILS RELATIVE PERCENT (BEAKER) (test 2 % cijv=026) BASOPHILS RELATIVE PERCENT (BEAKER) (test 0 % kicl=170) NEUTROPHILS ABSOLUTE COUNT (BEAKER) (test 10.99 K/ L 1.78-5.38 jwcs=967) LYMPHOCYTES ABSOLUTE COUNT (BEAKER) (test 0.60 K/ L 1.32-3.57 dckj=580) MONOCYTES ABSOLUTE COUNT (BEAKER) (test 0.84 K/ L 0.30-0.82 anij=367) EOSINOPHILS ABSOLUTE COUNT (BEAKER) (test 0.21 K/ L 0.04-0.54 mgkt=975) BASOPHILS ABSOLUTE COUNT (BEAKER) (test 0.03 K/ L 0.01-0.08 ujkw=167) IMMATURE GRANULOCYTES-RELATIVE PERCENT (BEAKER) 1 % 0-1 (test aahn=1633) LACTIC ACID, ARTERIAL, WHOLE [id number] 04:58:00 Test Item Value Reference Range Comments LACTATE BLOOD ARTERIAL (2) (BEAKER) (test 1.2 mmol/L 0.5-2.2 pbay=8296) Effective 09/27/2015: Units/Reference Range ChangeNew: 0.5-2.2 mmol/L Previous: 5 -20 mg/dLPOCT-GLUCOSE [id number] 04:19:00 Test Item Value Reference Range Comments POC-GLUCOSE METER (BEAKER) 136 mg/dL 70-110 TESTED AT [address] (test rktb=1476) [facility] [address] POCT-GLUCOSE [id number] 00:39:00 Test Item Value Reference Range Comments POC-GLUCOSE METER (BEAKER) 142 mg/dL 70-110 TESTED AT [address] (test yjxu=2713) [facility] [address] POCT-GLUCOSE [id number] 23:06:00 Test Item Value Reference Range Comments POC-GLUCOSE METER (BEAKER) 128 mg/dL 70-110 TESTED AT [address] (test wgwi=8281) [place] [address] BASIC METABOLIC [id number] 21:24:00 Test Item Value Reference Range Comments SODIUM (BEAKER) (test 143 meq/L 136-145 hags=756) POTASSIUM (BEAKER) (test 4.3 meq/L 3.5-5.1 woji=797) CHLORIDE (BEAKER) (test 111 meq/L 98-107 ixpz=325) CO2 (BEAKER) (test 24 meq/L 22-29 ouja=232) BLOOD UREA NITROGEN 27 mg/dL 7-21 (BEAKER) (test plql=000) CREATININE (BEAKER) (test 2.57 mg/dL 0.57-1.25 bmql=009) GLUCOSE RANDOM (BEAKER) 125 mg/dL 70-105 (test gizr=487) CALCIUM (BEAKER) (test 8.3 mg/dL 8.4-10.2 kodn=991) EGFR (BEAKER) (test 25 mL/min/1.73 sq m ESTIMATED GFR IS NOT kteq=6880) ACCURATE CREATININE CLEARANCE IN PREDICTING GLOMERULAR FILTRATION RATE. ESTIMATED GFR IS NOT APPLICABLE FOR DIALYSIS PATIENTS. POCT-GLUCOSE [id number] 20:14:00 Test Item Value Reference Range Comments POC-GLUCOSE METER (BEAKER) 126 mg/dL 70-110 TESTED AT [address] (test cpzz=0712) [place] [address] BASIC METABOLIC [id number] 18:38:00 Test Item Value Reference Range Comments SODIUM (BEAKER) (test 143 meq/L 136-145 bjmg=999) POTASSIUM (BEAKER) (test 4.3 meq/L 3.5-5.1 rgee=218) CHLORIDE (BEAKER) (test 112 meq/L 98-107 ypkd=398) CO2 (BEAKER) (test 23 meq/L 22-29 yhvz=674) BLOOD UREA NITROGEN 27 mg/dL 7-21 (BEAKER) (test lsof=182) CREATININE (BEAKER) (test 2.58 mg/dL 0.57-1.25 fmbp=432) GLUCOSE RANDOM (BEAKER) 128 mg/dL 70-105 (test edsn=638) CALCIUM (BEAKER) (test 8.2 mg/dL 8.4-10.2 cguj=135) EGFR (BEAKER) (test 24 mL/min/1.73 sq m ESTIMATED GFR IS NOT khfg=7067) ACCURATE CREATININE CLEARANCE IN PREDICTING GLOMERULAR FILTRATION RATE. ESTIMATED GFR IS NOT APPLICABLE FOR DIALYSIS PATIENTS. [id number] 18:37:00 Test Item Value Reference Range Comments POTASSIUM (BEAKER) (test soqz=110) 4.3 meq/L 3.5-5.1 [id number] 18:37:00 Test Item Value Reference Range Comments MAGNESIUM (BEAKER) (test xgof=914) 2.3 mg/dL 1.6-2.6 POCT-GLUCOSE [id number] 18:21:00 Test Item Value Reference Range Comments POC-GLUCOSE METER (BEAKER) 135 mg/dL 70-110 TESTED AT [address] (test uvjj=2764) [place] [id number] POCT-GLUCOSE [id number] 18:21:00 Test Item Value Reference Range Comments POC-GLUCOSE METER (BEAKER) 140 mg/dL 70-110 TESTED AT [address] (test panb=8347) [place] [id number] POCT-GLUCOSE [id number] 18:21:00 Test Item Value Reference Range Comments POC-GLUCOSE METER (BEAKER) 132 mg/dL 70-110 TESTED AT [address] (test wmdo=9411) [place] [id number] CALCIUM, [id number] 18:06:00 Test Item Value Reference Range Comments CALCIUM IONIZED (BEAKER) (test wguw=794) 1.06 mmol/L 1.12-1.27 PH, BLOOD (BEAKER) (test rokc=9181) 7.44 BLOOD GAS, [id number] 18:06:00 Test Item Value Reference Range Comments PH ARTERIAL (BEAKER) (test qaxd=588) 7.44 7.35-7.45 PCO2 ARTERIAL (BEAKER) (test gtcw=002) 32 mmHg 35-45 PO2 ARTERIAL (BEAKER) (test glrq=903) 99 mmHg 80-90 O2 SATURATION ARTERIAL (BEAKER) (test mvau=785) 97.7 % 96.0-97.0 HCO3 ARTERIAL (BEAKER) (test fedl=575) 21 mmol/L 21-29 BASE EXCESS ARTERIAL (BEAKER) (test artu=727) -2.3 mmol/L -2.0-3.0 PATIENT TEMPERATURE (BEAKER) (test gtwk=2188) 37.0 C FIO2 (BEAKER) (test dbvk=4798) 40.0 % LACTIC ACID, ARTERIAL, WHOLE [id number] 13:20:00 Test Item Value Reference Range Comments LACTATE BLOOD ARTERIAL (2) (BEAKER) (test 1.4 mmol/L 0.5-2.2 bqyc=3215) Effective 09/27/2015: Units/Reference Range ChangeNew: 0.5-2.2 mmol/L Previous: 5 -20 mg/dLHEMOGLOBIN AND [id number] 13:01:00 Test Item Value Reference Range Comments HEMOGLOBIN (BEAKER) (test flnq=018) 9.7 GM/DL 13.7-17.5 HEMATOCRIT (BEAKER) (test rnep=943) 29.2 % 40.1-51.0 POCT-GLUCOSE [id number] 12:24:00 Test Item Value Reference Range Comments POC-GLUCOSE METER (BEAKER) 113 mg/dL 70-110 TESTED AT [address] (test gagw=5196) [facility] [address] POCT-GLUCOSE [id number] 12:24:00 Test Item Value Reference Range Comments POC-GLUCOSE METER (BEAKER) 147 mg/dL 70-110 TESTED AT [address] (test gswv=4845) [facility] [address] POCT-GLUCOSE [id number] 12:24:00 Test Item Value Reference Range Comments POC-GLUCOSE METER (BEAKER) 160 mg/dL 70-110 TESTED AT [address] (test lupi=2064) [facility] [address] POCT-GLUCOSE [id number] 12:24:00 Test Item Value Reference Range Comments POC-GLUCOSE METER (BEAKER) 145 mg/dL 70-110 TESTED AT [address] (test oqxi=3564) [facility] [address] POCT-GLUCOSE [id number] 12:24:00 Test Item Value Reference Range Comments POC-GLUCOSE METER (BEAKER) 145 mg/dL 70-110 TESTED AT [address] (test vrki=0215) [facility] [address] POCT-GLUCOSE [id number] 12:24:00 Test Item Value Reference Range Comments POC-GLUCOSE METER (BEAKER) 159 mg/dL 70-110 TESTED AT [facility] [address] (test lsbr=1485) [facility] [address] POCT-GLUCOSE [id number] 12:24:00 Test Item Value Reference Range Comments POC-GLUCOSE METER (BEAKER) 170 mg/dL 70-110 TESTED AT [facility] [address] (test bcax=1001) [facility] [address] [id number] 10:59:00 Test Item Value Reference Range Comments PHOSPHORUS (BEAKER) (test gfdv=527) 3.1 mg/dL 2.3-4.7 [id number] 10:59:00 Test Item Value Reference Range Comments MAGNESIUM (BEAKER) (test pgbu=131) 2.3 mg/dL 1.6-2.6 BASIC METABOLIC [id number] 10:59:00 Test Item Value Reference Range Comments SODIUM (BEAKER) (test 143 meq/L 136-145 hlep=026) POTASSIUM (BEAKER) (test 4.6 meq/L 3.5-5.1 uefi=363) CHLORIDE (BEAKER) (test 112 meq/L 98-107 zhac=630) CO2 (BEAKER) (test 20 meq/L 22-29 cwqk=771) BLOOD UREA NITROGEN 23 mg/dL 7-21 (BEAKER) (test zltn=296) CREATININE (BEAKER) (test 2.18 mg/dL 0.57-1.25 dzve=014) GLUCOSE RANDOM (BEAKER) 147 mg/dL 70-105 (test azcy=852) CALCIUM (BEAKER) (test 8.1 mg/dL 8.4-10.2 fjap=296) EGFR (BEAKER) (test 30 mL/min/1.73 sq m ESTIMATED GFR IS NOT rsug=5417) ACCURATE CREATININE CLEARANCE IN PREDICTING GLOMERULAR FILTRATION RATE. ESTIMATED GFR IS NOT APPLICABLE FOR DIALYSIS PATIENTS. CBC W/PLT COUNT & AUTO [id number] 10:26:00 Test Item Value Reference Range Comments WHITE BLOOD CELL COUNT (BEAKER) (test ohmw=710) 14.9 K/ L 3.5-10.5 RED BLOOD CELL COUNT (BEAKER) (test tkyn=127) 3.03 M/ L 4.63-6.08 HEMOGLOBIN (BEAKER) (test oquo=618) 10.0 GM/DL 13.7-17.5 HEMATOCRIT (BEAKER) (test sncz=742) 30.9 % 40.1-51.0 MEAN CORPUSCULAR VOLUME (BEAKER) (test kqit=739) 102.0 fL 79.0-92.2 MEAN CORPUSCULAR HEMOGLOBIN (BEAKER) (test 33.0 pg 25.7-32.2 jych=860) MEAN CORPUSCULAR HEMOGLOBIN CONC (BEAKER) (test 32.4 GM/DL 32.3-36.5 zrqn=871) RED CELL DISTRIBUTION WIDTH (BEAKER) (test 14.8 % 11.6-14.4 sfba=331) PLATELET COUNT (BEAKER) (test fybx=251) 155 K/CU MM 150-450 MEAN PLATELET VOLUME (BEAKER) (test puql=264) 12.6 fL 9.4-12.4 NUCLEATED RED BLOOD CELLS (BEAKER) (test 0 /100 WBC 0-0 jibm=651) NEUTROPHILS RELATIVE PERCENT (BEAKER) (test 84 % zmzd=850) LYMPHOCYTES RELATIVE PERCENT (BEAKER) (test 4 % jdxr=714) MONOCYTES RELATIVE PERCENT (BEAKER) (test 11 % nfzd=080) EOSINOPHILS RELATIVE PERCENT (BEAKER) (test 1 % ixkz=492) BASOPHILS RELATIVE PERCENT (BEAKER) (test 0 % vtah=590) NEUTROPHILS ABSOLUTE COUNT (BEAKER) (test 12.43 K/ L 1.78-5.38 fgfk=740) LYMPHOCYTES ABSOLUTE COUNT (BEAKER) (test 0.56 K/ L 1.32-3.57 kvbv=770) MONOCYTES ABSOLUTE COUNT (BEAKER) (test 1.62 K/ L 0.30-0.82 kaod=676) EOSINOPHILS ABSOLUTE COUNT (BEAKER) (test 0.14 K/ L 0.04-0.54 oeok=349) BASOPHILS ABSOLUTE COUNT (BEAKER) (test 0.04 K/ L 0.01-0.08 efez=091) IMMATURE GRANULOCYTES-RELATIVE PERCENT (BEAKER) 1 % 0-1 (test kjwk=0765) BLOOD GAS, [id number] 09:05:00 Test Item Value Reference Range Comments PH ARTERIAL (BEAKER) (test wwhn=179) 7.40 7.35-7.45 PCO2 ARTERIAL (BEAKER) (test xovt=300) 35 mmHg 35-45 PO2 ARTERIAL (BEAKER) (test axvv=463) 212 mmHg 80-90 O2 SATURATION ARTERIAL (BEAKER) (test oybj=264) 99.4 % 96.0-97.0 HCO3 ARTERIAL (BEAKER) (test ejmw=510) 22 mmol/L 21-29 BASE EXCESS ARTERIAL (BEAKER) (test fqve=489) -2.7 mmol/L -2.0-3.0 PATIENT TEMPERATURE (BEAKER) (test xfpa=5635) 37.0 C FIO2 (BEAKER) (test pfwm=9554) 100.0 % POCT-GLUCOSE [id number] 07:07:00 Test Item Value Reference Range Comments POC-GLUCOSE METER (BEAKER) 160 mg/dL 70-110 TESTED AT [address] (test scei=8505) [place] [address] POCT-GLUCOSE [id number] 07:07:00 Test Item Value Reference Range Comments POC-GLUCOSE METER (BEAKER) 200 mg/dL 70-110 TESTED AT [address] (test ylhs=5167) [place] [id number] POCT-GLUCOSE [id number] 07:07:00 Test Item Value Reference Range Comments POC-GLUCOSE METER (BEAKER) 213 mg/dL 70-110 TESTED AT [address] (test mkuo=3712) [place] [id number] BLOOD GAS, [id number] 01:53:00 Test Item Value Reference Range Comments PH ARTERIAL (BEAKER) (test enyl=003) 7.45 7.35-7.45 PCO2 ARTERIAL (BEAKER) (test mlkf=820) 28 mmHg 35-45 PO2 ARTERIAL (BEAKER) (test rilz=633) 81 mmHg 80-90 O2 SATURATION ARTERIAL (BEAKER) (test vsrl=353) 96.8 % 96.0-97.0 HCO3 ARTERIAL (BEAKER) (test ptwr=171) 19 mmol/L 21-29 BASE EXCESS ARTERIAL (BEAKER) (test jeub=188) -4.1 mmol/L -2.0-3.0 PATIENT TEMPERATURE (BEAKER) (test ywnn=7141) 36.2 C FIO2 (BEAKER) (test wjbl=9510) 36.0 % RAD, CHEST, 1 VIEW, NON [id number] 01:46:00while patient is intubated or has chest [...] MDReport Verified Date/Time: 07/25/2017 01:46:51 Reading Location: [address] Reading Room Electronicallysigned by: DAYSI TORRES M.D. on 07/25/2017 01:46 AMPOCT-GLUCOSE [id number] 00:23:00 Test Item Value Reference Range Comments POC-GLUCOSE METER (BEAKER) 229 mg/dL 70-110 TESTED AT [address] (test owpp=9391) [place] [id number] POCT-GLUCOSE [id number] 00:23:00 Test Item Value Reference Range Comments POC-GLUCOSE METER (BEAKER) 220 mg/dL 70-110 TESTED AT [address] (test msrg=1532) [place] [id number] POCT-GLUCOSE [id number] 22:34:00 Test Item Value Reference Range Comments POC-GLUCOSE METER (BEAKER) 247 mg/dL 70-110 TESTED AT [address] (test mctr=7845) [place] [id number] POCT-GLUCOSE [id number] 22:34:00 Test Item Value Reference Range Comments POC-GLUCOSE METER (BEAKER) 254 mg/dL 70-110 TESTED AT [address] (test aclj=6279) [place] [id number] BLOOD GAS, [id number] 22:08:00 Test Item Value Reference Range Comments PH ARTERIAL (BEAKER) (test flbc=730) 7.35 7.35-7.45 PCO2 ARTERIAL (BEAKER) (test tkus=305) 36 mmHg 35-45 PO2 ARTERIAL (BEAKER) (test allm=726) 68 mmHg 80-90 O2 SATURATION ARTERIAL (BEAKER) (test xedq=657) 92.8 % 96.0-97.0 HCO3 ARTERIAL (BEAKER) (test zjhh=968) 19 mmol/L 21-29 BASE EXCESS ARTERIAL (BEAKER) (test xrzi=996) -5.7 mmol/L -2.0-3.0 PATIENT TEMPERATURE (BEAKER) (test gxbp=9007) 37.0 C FIO2 (BEAKER) (test tsfe=5973) 40.0 % POTASSIUM-STAT [id number] 22:08:00 Test Item Value Reference Range Comments POTASSIUM (BEAKER) (test sfce=534) 3.9 meq/L 3.6-5.5 [id number] 21:24:00 Test Item Value Reference Range Comments GLUCOSE RANDOM (BEAKER) (test ssox=436) 232 mg/dL 70-105 [id number] 21:24:00 Test Item Value Reference Range Comments POTASSIUM (BEAKER) (test lgxx=019) 3.8 meq/L 3.5-5.1 POCT-GLUCOSE [id number] 19:12:00 Test Item Value Reference Range Comments POC-GLUCOSE METER (BEAKER) 207 mg/dL 70-110 TESTED AT [facility] [address] (test jqci=7338) [facility] [address] URINALYSIS W/ [id number] 17:20:00 Test Item Value Reference Range Comments COLOR (BEAKER) (test ayjq=560) Yellow CLARITY (BEAKER) (test cfmu=937) Hazy SPECIFIC GRAVITY UA (BEAKER) (test ofer=926) 1.018 1.001-1.035 PH UA (BEAKER) (test upoo=397) 5.0 5.0-8.0 PROTEIN UA (BEAKER) (test zxyf=501) 20 mg/dL Negative GLUCOSE UA (BEAKER) (test urod=206) Negative Negative KETONES UA (BEAKER) (test kazw=872) Negative Negative BILIRUBIN UA (BEAKER) (test jurm=304) Negative Negative BLOOD UA (BEAKER) (test fldi=846) Moderate Negative NITRITE UA (BEAKER) (test zjud=171) Negative Negative LEUKOCYTE ESTERASE UA (BEAKER) (test nelr=627) Negative Negative UROBILINOGEN UA (BEAKER) (test sfgl=540) 0.2 mg/dL 0.2-1.0 RBC UA (BEAKER) (test icob=905) 114 /HPF WBC UA (BEAKER) (test symm=432) 17 /HPF BACTERIA (BEAKER) (test hriu=411) Few MUCUS (BEAKER) (test ldga=8408) Occasional SQUAMOUS EPITHELIAL (BEAKER) (test wrqu=484) 2 /HPF HYALINE CASTS (BEAKER) (test ayma=300) 9 /LPF SOURCE(BEAKER) (test jvms=9159) Urine, Frances BLOOD GAS, [id number] 17:02:00 Test Item Value Reference Range Comments PH ARTERIAL (BEAKER) (test sopb=974) 7.32 7.35-7.45 PCO2 ARTERIAL (BEAKER) (test tloq=342) 43 mmHg 35-45 PO2 ARTERIAL (BEAKER) (test qgsl=621) 175 mmHg 80-90 O2 SATURATION ARTERIAL (BEAKER) (test oham=009) 99.1 % 96.0-97.0 HCO3 ARTERIAL (BEAKER) (test mwxm=076) 22 mmol/L 21-29 BASE EXCESS ARTERIAL (BEAKER) (test yfws=002) -4.5 mmol/L -2.0-3.0 PATIENT TEMPERATURE (BEAKER) (test nhxa=5793) 36.7 C FIO2 (BEAKER) (test vosg=3059) 60.0 % RAD, CHEST, 1 VIEW, NON [id number] 15:57:00Reason for exam:->s./p OHSShould this be performed at the bedside?->YesFINAL REPORT Chest one view compared to July 15, 2016 Discussion: Cardiacprominence, drainage tubes, right IJ line in place. There is pulmonary congestion and atelectasis. There may be small effusions but no pneumothorax. Signed: Taty Osborne Verified Date/Time: 07/24/2017 15:57:34 Reading Location: [place] [id number] Consult Reading Room [id number] 15:25:00 Test Item Value Reference Range Comments MAGNESIUM (BEAKER) (test 2.5 mg/dL 1.6-2.6 Specimen slightly hemolyzed jivx=096) [id number] 15:25:00 Test Item Value Reference Range Comments PHOSPHORUS (BEAKER) (test 3.5 mg/dL 2.3-4.7 Specimen slightly hemolyzed oipm=622) BASIC METABOLIC [id number] 15:25:00 Test Item Value Reference Range Comments SODIUM (BEAKER) (test 142 meq/L 136-145 aqqp=314) POTASSIUM (BEAKER) (test 4.0 meq/L 3.5-5.1 Specimen slightly tpup=768) hemolyzed CHLORIDE (BEAKER) (test 112 meq/L 98-107 dtgu=552) CO2 (BEAKER) (test 19 meq/L 22-29 likj=867) BLOOD UREA NITROGEN 17 mg/dL 7-21 (BEAKER) (test bhcw=650) CREATININE (BEAKER) (test 1.35 mg/dL 0.57-1.25 Specimen slightly crax=085) hemolyzed GLUCOSE RANDOM (BEAKER) 158 mg/dL 70-105 (test gqca=259) CALCIUM (BEAKER) (test 8.5 mg/dL 8.4-10.2 szkd=621) EGFR (BEAKER) (test 52 mL/min/1.73 sq m ESTIMATED GFR IS NOT cgvt=4161) ACCURATE CREATININE CLEARANCE IN PREDICTING GLOMERULAR FILTRATION RATE. ESTIMATED GFR IS NOT APPLICABLE FOR DIALYSIS PATIENTS. CBC W/PLT COUNT & AUTO [id number] 15:17:00 Test Item Value Reference Range Comments WHITE BLOOD CELL COUNT (BEAKER) (test dcjk=269) 17.9 K/ L 3.5-10.5 RED BLOOD CELL COUNT (BEAKER) (test jwkj=879) 3.27 M/ L 4.63-6.08 HEMOGLOBIN (BEAKER) (test wjqf=550) 10.8 GM/DL 13.7-17.5 HEMATOCRIT (BEAKER) (test eqex=465) 32.9 % 40.1-51.0 MEAN CORPUSCULAR VOLUME (BEAKER) (test pgnt=436) 100.6 fL 79.0-92.2 MEAN CORPUSCULAR HEMOGLOBIN (BEAKER) (test 33.0 pg 25.7-32.2 ytae=563) MEAN CORPUSCULAR HEMOGLOBIN CONC (BEAKER) (test 32.8 GM/DL 32.3-36.5 ehzl=111) RED CELL DISTRIBUTION WIDTH (BEAKER) (test 14.2 % 11.6-14.4 txpv=568) PLATELET COUNT (BEAKER) (test imzw=644) 126 K/CU MM 150-450 MEAN PLATELET VOLUME (BEAKER) (test juvk=734) 11.1 fL 9.4-12.4 NUCLEATED RED BLOOD CELLS (BEAKER) (test 0 /100 WBC 0-0 cstu=434) NEUTROPHILS RELATIVE PERCENT (BEAKER) (test 82 % agnx=695) LYMPHOCYTES RELATIVE PERCENT (BEAKER) (test 12 % sokj=240) MONOCYTES RELATIVE PERCENT (BEAKER) (test 5 % qoga=490) EOSINOPHILS RELATIVE PERCENT (BEAKER) (test 0 % gddh=089) BASOPHILS RELATIVE PERCENT (BEAKER) (test 0 % poze=628) NEUTROPHILS ABSOLUTE COUNT (BEAKER) (test 14.59 K/ L 1.78-5.38 adji=929) LYMPHOCYTES ABSOLUTE COUNT (BEAKER) (test 2.18 K/ L 1.32-3.57 sqtf=816) MONOCYTES ABSOLUTE COUNT (BEAKER) (test 0.84 K/ L 0.30-0.82 owgd=966) EOSINOPHILS ABSOLUTE COUNT (BEAKER) (test 0.04 K/ L 0.04-0.54 vgih=357) BASOPHILS ABSOLUTE COUNT (BEAKER) (test 0.02 K/ L 0.01-0.08 wumt=098) IMMATURE GRANULOCYTES-RELATIVE PERCENT (BEAKER) 1 % 0-1 (test erfb=0417) LACTIC ACID, ARTERIAL, WHOLE [id number] 15:12:00 Test Item Value Reference Range Comments LACTATE BLOOD ARTERIAL (2) 2.7 mmol/L 0.5-2.2 Specimen slightly hemolyzed (BEAKER) (test aydk=0744) Effective 09/27/2015: Units/Reference Range ChangeNew: 0.5-2.2 mmol/L Previous: 5 -20 mg/dLOXYGEN SATURATION, [id number] 15:10:00 Test Item Value Reference Range Comments O2 SATURATION (MEASURED) (BEAKER) (test teif=9844) 78.9 % From distal port of IJ central venous catheterCALCIUM, [id number] 15:07: 00 Test Item Value Reference Range Comments CALCIUM IONIZED (BEAKER) (test fqai=204) 1.11 mmol/L 1.12-1.27 PH, BLOOD (BEAKER) (test lhzf=5846) 7.28 BLOOD GAS, [id number] 15:07:00 Test Item Value Reference Range Comments PH ARTERIAL (BEAKER) (test mskx=723) 7.28 7.35-7.45 PCO2 ARTERIAL (BEAKER) (test cqls=628) 45 mmHg 35-45 PO2 ARTERIAL (BEAKER) (test gxzr=385) 119 mmHg 80-90 O2 SATURATION ARTERIAL (BEAKER) (test cgii=442) 97.9 % 96.0-97.0 HCO3 ARTERIAL (BEAKER) (test fhpn=187) 21 mmol/L 21-29 BASE EXCESS ARTERIAL (BEAKER) (test tvkp=008) -6.2 mmol/L -2.0-3.0 PATIENT TEMPERATURE (BEAKER) (test uqvh=4892) 36.3 C FIO2 (BEAKER) (test bejq=4345) 60.0 % [id number] 14:18:00 Test Item Value Reference Range Comments ACTIVATED CLOTTING TIME 114 sec TESTED AT [place] [id number] [facility] (BEAKER) (test gtik=509) [place] [address] [id number] 14:18:00 Test Item Value Reference Range Comments ACTIVATED CLOTTING TIME 131 sec TESTED AT [place] [id number] [facility] (BEAKER) (test jomf=212) [place] [address] [id number] 14:18:00 Test Item Value Reference Range Comments ACTIVATED CLOTTING TIME 532 sec TESTED AT [place] [id number] [facility] (BEAKER) (test jjwx=168) [place] [address] [id number] 14:18:00 Test Item Value Reference Range Comments ACTIVATED CLOTTING TIME 598 sec TESTED AT [place] [address] [facility] ([facility] (test wgsz=124) [place] [address] [id number] 14:18:00 Test Item Value Reference Range Comments ACTIVATED CLOTTING TIME 786 sec TESTED AT [facility] [address] [facility] (BEAKER) (test swot=592) [facility] [address] [id number] 14:18:00 Test Item Value Reference Range Comments ACTIVATED CLOTTING TIME 786 sec TESTED AT [facility] [address] (BEAKER) (test puse=798) [facility] [address] PLATELET [id number] 13:19:00 Test Item Value Reference Range Comments PLATELET COUNT (BEAKER) (test xuiu=108) 77 K/CU MM 150-450 CALCIUM, [id number] 13:01:00 Test Item Value Reference Range Comments CALCIUM IONIZED (BEAKER) (test fjeo=432) 1.22 mmol/L 1.12-1.27 PH, BLOOD (BEAKER) (test kasy=8866) 7.32 BLOOD GAS, [id number] 13:01:00 Test Item Value Reference Range Comments PH ARTERIAL (BEAKER) (test ljbo=526) 7.34 7.35-7.45 PCO2 ARTERIAL (BEAKER) (test phry=896) 39 mmHg 35-45 PO2 ARTERIAL (BEAKER) (test bogm=858) 192 mmHg 80-90 O2 SATURATION ARTERIAL (BEAKER) (test gxpe=420) 99.3 % 96.0-97.0 HCO3 ARTERIAL (BEAKER) (test odla=130) 20 mmol/L 21-29 BASE EXCESS ARTERIAL (BEAKER) (test kdjj=353) -5.3 mmol/L -2.0-3.0 PATIENT TEMPERATURE (BEAKER) (test nfyh=0961) 35.9 C FIO2 (BEAKER) (test oytp=6860) 90.0 % GLUCOSE-STAT [id number] 13:01:00 Test Item Value Reference Range Comments GLUCOSE RANDOM (BEAKER) (test afrs=586) 164 mg/dL 70-110 HGB/HCT (H&H) - STAT [id number] 13:01:00 Test Item Value Reference Range Comments HEMOGLOBIN (BEAKER) (test ptxn=319) 11.9 g/dL 13.0-16.8 HEMATOCRIT (BEAKER) (test ilme=692) 35.0 % 40.0-50.0 SODIUM NA-STAT [id number] 13:00:00 Test Item Value Reference Range Comments SODIUM (BEAKER) (test jtav=734) 136 meq/L 135-148 POTASSIUM-STAT [id number] 13:00:00 Test Item Value Reference Range Comments POTASSIUM (BEAKER) (test hpjn=402) 4.3 meq/L 3.6-5.5 PROTHROMBIN [id number] 12:44:00 Test Item Value Reference Range Comments PROTIME (BEAKER) (test brxy=178) 22.5 seconds 11.7-14.7 INR (BEAKER) (test ehpf=858) 2.0 <=5.9 RECOMMENDED COUMADIN/WARFARIN INR THERAPY RANGESSTANDARD DOSE: 2.0 - 3.0 Includes: PROPHYLAXIS forvenous thrombosis, systemic embolization; TREATMENT for venous thrombosis and/or pulmonary embolus.HIGH RISK: Target INR is 2.5-3.5 for patients with mechanical heart valves.[id number] 12:44:00 Test Item Value Reference Range Comments PARTIAL THROMBOPLASTIN TIME (BEAKER) (test 33.1 seconds 22.5-36.0 iqwi=854) [id number] 12:44:00 Test Item Value Reference Range Comments FIBRINOGEN LEVEL (BEAKER) (test rkwk=714) 287 mg/dl 225-434 BLOOD GAS, [id number] 12:25:00 Test Item Value Reference Range Comments PH ARTERIAL (BEAKER) (test akjr=978) 7.30 7.35-7.45 PCO2 ARTERIAL (BEAKER) (test qidp=226) 41 mmHg 35-45 PO2 ARTERIAL (BEAKER) (test bffl=168) 175 mmHg 80-90 O2 SATURATION ARTERIAL (BEAKER) (test hzbf=336) 99.1 % 96.0-97.0 HCO3 ARTERIAL (BEAKER) (test hcrb=063) 20 mmol/L 21-29 BASE EXCESS ARTERIAL (BEAKER) (test sqpl=185) -6.5 mmol/L -2.0-3.0 PATIENT TEMPERATURE (BEAKER) (test hwwm=2011) 35.7 C FIO2 (BEAKER) (test qdut=5568) 90.0 % GLUCOSE-STAT [id number] 12:25:00 Test Item Value Reference Range Comments GLUCOSE RANDOM (BEAKER) (test gmjz=597) 162 mg/dL 70-110 HGB/HCT (H&H) - STAT [id number] 12:25:00 Test Item Value Reference Range Comments HEMOGLOBIN (BEAKER) (test jnok=211) 11.1 g/dL 13.0-16.8 HEMATOCRIT (BEAKER) (test txvg=286) 33.0 % 40.0-50.0 CALCIUM, [id number] 12:25:00 Test Item Value Reference Range Comments CALCIUM IONIZED (BEAKER) (test rgto=357) 1.08 mmol/L 1.12-1.27 PH, BLOOD (BEAKER) (test nfgl=0426) 7.28 SODIUM NA-STAT [id number] 12:24:00 Test Item Value Reference Range Comments SODIUM (BEAKER) (test iyhr=507) 136 meq/L 135-148 POTASSIUM-STAT [id number] 12:24:00 Test Item Value Reference Range Comments POTASSIUM (BEAKER) (test nkbe=616) 4.7 meq/L 3.6-5.5 PROTHROMBIN [id number] 11:44:00 Test Item Value Reference Range Comments PROTIME (BEAKER) (test mqny=019) 31.1 seconds 11.7-14.7 INR (BEAKER) (test stfp=700) 3.0 <=5.9 RECOMMENDED COUMADIN/WARFARIN INR THERAPY RANGESSTANDARD DOSE: 2.0 - 3.0 Includes: PROPHYLAXIS forvenous thrombosis, systemic embolization; TREATMENT for venous thrombosis and/or pulmonary embolus.HIGH RISK: Target INR is 2.5-3.5 for patients with mechanical heart valves.[id number] 11:44:00 Test Item Value Reference Range Comments FIBRINOGEN LEVEL (BEAKER) (test cxxp=370) 335 mg/dl 225-434 PLATELET [id number] 11:32:00 Test Item Value Reference Range Comments PLATELET COUNT (BEAKER) (test xzbo=331) 109 K/CU MM 150-450 SODIUM NA-STAT [id number] 11:28:00 Test Item Value Reference Range Comments SODIUM (BEAKER) (test scky=643) 136 meq/L 135-148 BLOOD GAS, [id number] 11:28:00 Test Item Value Reference Range Comments PH ARTERIAL (BEAKER) (test topq=683) 7.38 7.35-7.45 PCO2 ARTERIAL (BEAKER) (test qpik=697) 39 mmHg 35-45 PO2 ARTERIAL (BEAKER) (test araa=283) 402 mmHg 80-90 O2 SATURATION ARTERIAL (BEAKER) (test sugg=787) 99.8 % 96.0-97.0 HCO3 ARTERIAL (BEAKER) (test izrm=020) 23 mmol/L 21-29 BASE EXCESS ARTERIAL (BEAKER) (test xuzx=128) -2.6 mmol/L -2.0-3.0 PATIENT TEMPERATURE (BEAKER) (test irig=6413) 35.6 C FIO2 (BEAKER) (test ivwe=0894) 80.0 % POTASSIUM-STAT [id number] 11:28:00 Test Item Value Reference Range Comments POTASSIUM (BEAKER) (test ievp=888) 5.6 meq/L 3.6-5.5 GLUCOSE-STAT [id number] 11:28:00 Test Item Value Reference Range Comments GLUCOSE RANDOM (BEAKER) (test vjkm=146) 168 mg/dL 70-110 HGB/HCT (H&H) - STAT [id number] 11:28:00 Test Item Value Reference Range Comments HEMOGLOBIN (BEAKER) (test qydn=179) 11.2 g/dL 13.0-16.8 HEMATOCRIT (BEAKER) (test fvmz=186) 33.0 % 40.0-50.0 POTASSIUM-STAT [id number] 11:03:00 Test Item Value Reference Range Comments POTASSIUM (BEAKER) (test paik=755) 4.6 meq/L 3.6-5.5 BLOOD GAS, [id number] 11:03:00 Test Item Value Reference Range Comments PH ARTERIAL (BEAKER) (test sqjf=212) 7.28 7.35-7.45 PCO2 ARTERIAL (BEAKER) (test ffqh=148) 43 mmHg 35-45 PO2 ARTERIAL (BEAKER) (test fewx=165) 332 mmHg 80-90 O2 SATURATION ARTERIAL (BEAKER) (test gqbr=144) 99.7 % 96.0-97.0 HCO3 ARTERIAL (BEAKER) (test vqfz=962) 21 mmol/L 21-29 BASE EXCESS ARTERIAL (BEAKER) (test jbdu=065) -6.7 mmol/L -2.0-3.0 PATIENT TEMPERATURE (BEAKER) (test ujji=1466) 33.1 C FIO2 (BEAKER) (test lwmc=1897) 80.0 % SODIUM NA-STAT [id number] 11:03:00 Test Item Value Reference Range Comments SODIUM (BEAKER) (test ilch=632) 134 meq/L 135-148 GLUCOSE-STAT [id number] 11:03:00 Test Item Value Reference Range Comments GLUCOSE RANDOM (BEAKER) (test swsg=522) 157 mg/dL 70-110 HGB/HCT (H&H) - STAT [id number] 11:03:00 Test Item Value Reference Range Comments HEMOGLOBIN (BEAKER) (test fdfl=961) 11.8 g/dL 13.0-16.8 HEMATOCRIT (BEAKER) (test fvpz=768) 35.0 % 40.0-50.0 BLOOD GAS, [id number] 11:01:00 Test Item Value Reference Range Comments PH VENOUS (BEAKER) (test ltsu=391) 7.27 7.32-7.42 PCO2 VENOUS (BEAKER) (test susb=402) 45 mmHg 41-51 PO2 VENOUS (BEAKER) (test dare=374) 46 mmHg 25-40 O2 SATURATION VENOUS (BEAKER) (test apin=841) 85.7 % 40.0-70.0 HCO3 VENOUS (BEAKER) (test zrke=858) 22 mmol/L 21-29 BASE EXCESS VENOUS (BEAKER) (test mjwh=789) -6.5 mmol/L -2.0-3.0 PATIENT TEMPERATURE (BEAKER) (test fpfi=0140) 33.1 C FIO2 (BEAKER) (test omaj=8932) 80.0 % BLOOD GAS, [id number] 09:32:00 Test Item Value Reference Range Comments PH ARTERIAL (BEAKER) (test hrkt=890) 7.38 7.35-7.45 PCO2 ARTERIAL (BEAKER) (test xtpe=990) 36 mmHg 35-45 PO2 ARTERIAL (BEAKER) (test xnmf=638) 341 mmHg 80-90 O2 SATURATION ARTERIAL (BEAKER) (test svgk=418) 99.7 % 96.0-97.0 HCO3 ARTERIAL (BEAKER) (test savm=369) 21 mmol/L 21-29 BASE EXCESS ARTERIAL (BEAKER) (test cmoh=160) -4.0 mmol/L -2.0-3.0 PATIENT TEMPERATURE (BEAKER) (test wgzk=1405) 35.9 C FIO2 (BEAKER) (test wbcv=2467) 90.0 % GLUCOSE-STAT [id number] 09:32:00 Test Item Value Reference Range Comments GLUCOSE RANDOM (BEAKER) (test zuvg=251) 151 mg/dL 70-110 SODIUM NA-STAT [id number] 09:31:00 Test Item Value Reference Range Comments SODIUM (BEAKER) (test ynlv=786) 136 meq/L 135-148 POTASSIUM-STAT [id number] 09:31:00 Test Item Value Reference Range Comments POTASSIUM (BEAKER) (test ndal=034) 4.2 meq/L 3.6-5.5 HGB/HCT (H&H) - STAT [id number] 09:31:00 Test Item Value Reference Range Comments HEMOGLOBIN (BEAKER) (test yfwo=410) 16.5 g/dL 13.0-16.8 HEMATOCRIT (BEAKER) (test nxql=015) 49.0 % 40.0-50.0 RAD, CHEST, 2 [id number] 12:00:00Reason for Exam:->Pre-OpFINAL REPORT TECHNIQUE: Frontal and [...] Mcdaniels Verified Date/Time: 07/22/2017 12:00:46 Reading Location: [facility] Radiology Reading Room HEMOGLOBIN [id number] 11:51:00 Test Item Value Reference Range Comments HEMOGLOBIN A1C (BEAKER) (test dzyj=710) 7.6 % 4.3-6.1 BASIC METABOLIC [id number] 10:24:00 Test Item Value Reference Range Comments SODIUM (BEAKER) (test 139 meq/L 136-145 ghum=747) POTASSIUM (BEAKER) (test 4.3 meq/L 3.5-5.1 ltco=943) CHLORIDE (BEAKER) (test 110 meq/L 98-107 twrv=520) CO2 (BEAKER) (test 21 meq/L 22-29 ppnn=090) BLOOD UREA NITROGEN 21 mg/dL 7-21 (BEAKER) (test akcl=666) CREATININE (BEAKER) (test 1.38 mg/dL 0.57-1.25 naha=646) GLUCOSE RANDOM (BEAKER) 147 mg/dL 70-105 (test zkaf=163) CALCIUM (BEAKER) (test 8.6 mg/dL 8.4-10.2 hmbt=335) EGFR (BEAKER) (test 50 mL/min/1.73 sq m ESTIMATED GFR IS NOT ftvx=2032) ACCURATE CREATININE CLEARANCE IN PREDICTING GLOMERULAR FILTRATION RATE. ESTIMATED GFR IS NOT APPLICABLE FOR DIALYSIS PATIENTS. PROTHROMBIN [id number] 10:21:00 Test Item Value Reference Range Comments PROTIME (BEAKER) (test duts=875) 14.9 seconds 11.7-14.7 INR (BEAKER) (test kpqn=331) 1.2 <=5.9 RECOMMENDED COUMADIN/WARFARIN INR THERAPY RANGESSTANDARD DOSE: 2.0 - 3.0 Includes: PROPHYLAXIS forvenous thrombosis, systemic embolization; TREATMENT for venous thrombosis and/or pulmonary embolus.HIGH RISK: Target INR is 2.5-3.5 for patients with mechanical heart valves.CBC W/PLT COUNT & AUTO [id number] 10:11:00 Test Item Value Reference Range Comments WHITE BLOOD CELL COUNT (BEAKER) (test wlin=424) 6.3 K/ L 3.5-10.5 RED BLOOD CELL COUNT (BEAKER) (test yduv=644) 4.77 M/ L 4.63-6.08 HEMOGLOBIN (BEAKER) (test xjie=499) 15.8 GM/DL 13.7-17.5 HEMATOCRIT (BEAKER) (test tqbq=635) 47.0 % 40.1-51.0 MEAN CORPUSCULAR VOLUME (BEAKER) (test kimp=495) 98.5 fL 79.0-92.2 MEAN CORPUSCULAR HEMOGLOBIN (BEAKER) (test 33.1 pg 25.7-32.2 nupg=388) MEAN CORPUSCULAR HEMOGLOBIN CONC (BEAKER) (test 33.6 GM/DL 32.3-36.5 jsby=661) RED CELL DISTRIBUTION WIDTH (BEAKER) (test 14.3 % 11.6-14.4 wtse=987) PLATELET COUNT (BEAKER) (test czlv=072) 161 K/CU MM 150-450 MEAN PLATELET VOLUME (BEAKER) (test toqs=236) 11.2 fL 9.4-12.4 NUCLEATED RED BLOOD CELLS (BEAKER) (test 0 /100 WBC 0-0 mtey=635) NEUTROPHILS RELATIVE PERCENT (BEAKER) (test 72 % uqak=365) LYMPHOCYTES RELATIVE PERCENT (BEAKER) (test 18 % cfbv=359) MONOCYTES RELATIVE PERCENT (BEAKER) (test 8 % bgjz=548) EOSINOPHILS RELATIVE PERCENT (BEAKER) (test 1 % amww=170) BASOPHILS RELATIVE PERCENT (BEAKER) (test 1 % rllf=494) NEUTROPHILS ABSOLUTE COUNT (BEAKER) (test 4.47 K/ L 1.78-5.38 zfgk=938) LYMPHOCYTES ABSOLUTE COUNT (BEAKER) (test 1.15 K/ L 1.32-3.57 tlkl=919) MONOCYTES ABSOLUTE COUNT (BEAKER) (test 0.48 K/ L 0.30-0.82 qmoc=029) EOSINOPHILS ABSOLUTE COUNT (BEAKER) (test 0.07 K/ L 0.04-0.54 nhep=327) BASOPHILS ABSOLUTE COUNT (BEAKER) (test 0.04 K/ L 0.01-0.08 qqtp=237) IMMATURE GRANULOCYTES-RELATIVE PERCENT (BEAKER) 1 % 0-1 (test gsaa=1477)
--- NOTE | 2018-04-14 14:14 | ER ---
Nurse's Notes [facility] Name: Hudson Pacheco Age: 73 yrs Sex: Male : 1945 Arrival Date: 04/14/2018 Time: 13:41 Bed 7 Private MD: Dylon Omer V Diagnosis: Chest pain, unspecified;Atrial fibrillation and flutter;Type 2 diabetes mellitus;Obesity, unspecified;Hypoxemia;Unspecified kidney failure;Bradycardia, unspecified Presentation: 04/14 13:49 Presenting complaint: Patient states: Chest pain at 1000 this morning lasted about 15 jl7 minutes, Home health nurse took BP around 1130 and said it was 80 systolic when standing. Reports a mild shortness of breath, denies any pain or nausea at this time. Transition of care: patient was not received from another setting of care. Onset of symptoms was April 14, 2018 at 10:00. Risk Assessment: Do you want to hurt yourself or someone else? Patient reports no desire to harm self or others. Initial Sepsis Screen: Does the patient meet any 2 criteria? No. Patient's initial sepsis screen is negative. Does the patient have a suspected source of infection? No. Patient's initial sepsis screen is negative. Care prior to arrival: None. 13:49 Method Of Arrival: Ambulatory 7 13:49 Acuity: ESTELLE 3 jl7 Triage Assessment: 13:56 General: Appears in no apparent distress. uncomfortable, Behavior is calm, cooperative, jl7 appropriate for age, Pt reports "I have a bed sore that's real deep." Describes location as the sacral region, home health changes the bandage and the vacuum. Pain: Complains of pain in anterior aspect of left upper chest Pain radiates to left arm Pain currently is 0 out of 10 on a pain scale. at worst was 10 out of 10 on a pain scale. Quality of pain is described as pressure, Pain began 4 hours ago. Is intermittent. Cardiovascular: Heart tones present pt denies chest pain right now Patient's skin is warm and dry. Historical: - Allergies: 13:54 No Known Allergies; jl7 - PMHx: 13:54 "fluid on the lungs"; Atrial Fib; CHF; CVA; Diabetes - NIDDM; Gout; Hyperlipidemia; jl7 - PSHx: 13:54 Triple ByPass; Colostomy; jl7 - Immunization history:: Adult Immunizations up to date. - Social history:: Smoking status: Patient/guardian denies using tobacco. - Ebola Screening: : No symptoms or risks identified at this time. - Family history:: not pertinent. Screenin:30 Abuse screen: Denies threats or abuse. Denies injuries from another. Nutritional sg screening: No deficits noted. Tuberculosis screening: No symptoms or risk factors identified. Never had TB. Fall Risk None identified. Assessment: 14:30 General: Appears in no apparent distress. comfortable, well groomed, well developed, sg well nourished, Behavior is calm, cooperative, appropriate for age. Pain: Complains of pain in chest and anterior aspect of left upper chest Quality of pain is described as aching, pressure. Neuro: Level of Consciousness is awake, alert, obeys commands, Oriented to person, place, time, situation, Reconciliation Manager are equal bilaterally Gait is steady, Speech is normal, Facial symmetry appears normal. Cardiovascular: Heart tones S1 S2 present Capillary refill is brisk in bilateral fingers Patient's skin is warm and dry. Chest pain is denied. Respiratory: No deficits noted. Airway is patent Respiratory effort is even, unlabored, Respiratory pattern is regular, symmetrical. GI: Abdomen is round non-distended. : No signs and/or symptoms were reported regarding the genitourinary system. EENT: No signs and/or symptoms were reported regarding the EENT system. Derm: Skin is pink, warm \\T\\ dry. Musculoskeletal: No signs and/or symptoms reported regarding the musculoskeletal system. 15:30 Reassessment: Patient appears in no apparent distress at this time. Patient and/or sg family updated on plan of care and expected duration. Pain level reassessed. Patient is alert, oriented x 3, equal unlabored respirations, skin warm/dry/pink. 16:54 Reassessment: Patient appears in no apparent distress at this time. Patient and/or rv family updated on plan of care and expected duration. Pain level reassessed. Patient is alert, oriented x 3, equal unlabored respirations, skin warm/dry/pink. 17:15 Reassessment: attempt to call report to 4th floor, nurse unavailable at this time, sg instructed to please call back, will continue to monitor. 18:00 Reassessment: Patient appears in no apparent distress at this time. Patient and/or sg family updated on plan of care and expected duration. Pain level reassessed. Patient is alert, oriented x 3, equal unlabored respirations, skin warm/dry/pink. attempt to call pt report, nurse unavailable, charge nurse unavailable, Adele ER hand folder notified, pt family updated, stated understanding, will continue to monitor. 19:15 Reassessment: Patient appears in no apparent distress at this time. Patient and/or cc3 family updated on plan of care and expected duration. Pain level reassessed. Patient is alert, oriented x 3, equal unlabored respirations, skin warm/dry/pink. Received this male patient from morning shift as a case of chest pain. With IV cannula gauge 20 at the right ACV saline locked. Noted to have colostomy bag on the left abdominal quadrant. For admission to room 415 after shift change. 19:45 Reassessment: Repeat Troponin taken by [facility] laboratory, waiting for result. cc3 20:25 Reassessment: Patient appears in no apparent distress at this time. Patient and/or cc3 family updated on plan of care and expected duration. Pain level reassessed. Patient is alert, oriented x 3, equal unlabored respirations, skin warm/dry/pink. Report called to ZO Dominguez for continuity of care. 20:45 Reassessment: Patient left ER vitally stable by stretcher for admission escorted by ED cc3 vani Ferguson with patient family. Vital Signs: 13:54 BP 152 / 74; Pulse 76; Resp 16 S; Temp 97.1(O); Pulse Ox 100% on R/A; Weight 105.23 kg jl7 (R); Height 6 ft. 0 in. (182.88 cm) (R); Pain 6/10; 14:30 BP 112 / 56; Pulse 50; Resp 19; Pulse Ox 99% on R/A; sg 15:00 BP 115 / 75; Pulse 49; Resp 17 S; Pulse Ox 99% on R/A; Pain 6/10; sg 15:53 BP 122 / 66; Pulse 45 MON; Resp 18 S; Pulse Ox 100% on R/A; Pain 6/10; sg 16:54 BP 118 / 56; Pulse 57; Resp 17; Pulse Ox 98% on R/A; rv 17:24 BP 111 / 60; Pulse 50; Resp 18; Pulse Ox 99% on R/A; sg 19:20 BP 109 / 53; Pulse 55; Resp 18 S; Temp 97.4(O); Pulse Ox 99% on R/A; cc3 20:00 BP 108 / 58; Pulse 54; Resp 18; Pulse Ox 100% on R/A; mt 20:37 BP 129 / 62; Pulse 52; Resp 20; Pulse Ox 100% on R/A; mt 13:54 Body Mass Index 31.46 (105.23 kg, 182.88 cm) jl7 15:53 Sinus bradycardia sg ED Course: 13:41 Patient arrived in ED. sb2 13:41 Dylon Omer MD is Private Physician. sb2 13:53 Triage completed. jl7 13:54 EKG done, by dental tech. reviewed by Ole Phillips MD. at1 13:54 Arm band placed on left wrist. jl7 13:56 EKG completed in triage. Results shown to MD. jl7 14:00 Patient has correct armband on for positive identification. Bed in low position. Call sg light in reach. Side rails up X2. awake overnight monitor on. Pulse ox on. NIBP on. Warm blanket given. Head of bed elevated. 14:02 Ole Phillips MD is Attending Physician. [place]umba 14:10 Initial lab(s) drawn, by ED staff, sent to lab. Inserted saline lock: 20 gauge in right sg antecubital area, using aseptic technique. Blood collected. 14:13 Dylon Omer MD is Hospitalizing Provider. [place]umba 15:00 Repeat lab(s) drawn. by il, sent to lab. Inserted saline lock:. Patient maintains SpO2 sg saturation greater than 95% on room air. 15:51 Corky Waters, ZO is Primary Nurse. sg 16:55 Report received from ADELE PATHAK. rv 16:58 Diet: Patient given a regular meal tray. bd 17:23 No provider procedures requiring assistance completed. Patient admitted, IV remains in sg place. intact, No redness/swelling at site. 19:09 Sofi Reyes is Primary Nurse. cc3 Administered Medications: 14:30 Drug: NS 0.9% 1000 ml Route: IV; Rate: 125 ml/hr; Site: right antecubital; hb 14:30 Drug: Pepcid 20 mg Route: IVP; Site: right antecubital; hb Outcome: 14:14 Decision to Hospitalize by Provider. columba 20:45 Admitted to Tele accompanied by tech, family with patient, via stretcher, room 415, cc3 with chart, Report called to ZO Dominguez 20:45 Condition: stable 20:45 Instructed on the need for admit, Demonstrated understanding of instructions. 20:50 Patient left the ED. cc3 Signatures: Shira Sanchez Steven, RN Ole Noland MD MD cha Gonzales, Amanda, office mail clerk EKG Tat1 Adele Foley RN RN Kaushal Perales RN RN Phyllis Sotelo mt, Sheri sb2 Paul Chadwick RN Sofi Middleton cc3 Corrections: (The following items were deleted from the chart) 22:14 19:20 BP 108 / 58; Pulse 55bpm; Resp 18bpm; Spontaneous; Pulse Ox 99% RA; Temp 97.4F cc3 Oral; cc3
--- NOTE | 2018-04-14 14:15 | EDPHYS ---
Physician Documentation [facility] Name: Hudson Pacheco Age: 73 yrs Sex: Male : 1945 Arrival Date: 04/14/2018 Time: 13:41 Bed 7 Private MD: Dylon Omer V ED Physician Ole Phillips HPI: 04/14 14:09 This 73 yrs old Male presents to ER via Ambulatory with complaints of Chest columba Pain, Blood Pressure Problem. 14:09 The patient or guardian reports chest pain that is located primarily in the substernal columba area. Onset: this morning. The pain does not radiate. Associated signs and symptoms: The patient has no apparent associated signs or symptoms. The chest pain is described as a heaviness, a pressure. Modifying factors: The symptoms are alleviated by nothing. the symptoms are aggravated by nothing. Severity of pain: At its worst the pain was mild moderate in the emergency department the pain is unchanged. Historical: - Allergies: 13:54 No Known Allergies; jl7 - PMHx: 13:54 "fluid on the lungs"; Atrial Fib; CHF; CVA; Diabetes - NIDDM; Gout; Hyperlipidemia; jl7 - PSHx: 13:54 Triple ByPass; Colostomy; jl7 - Immunization history:: Adult Immunizations up to date. - Social history:: Smoking status: Patient/guardian denies using tobacco. - Ebola Screening: : No symptoms or risks identified at this time. - Family history:: not pertinent. ROS: 14:09 Constitutional: Negative for fever, chills, and weight loss, Eyes: Negative for injury, columba pain, redness, and discharge, ENT: Negative for injury, pain, and discharge, Neck: Negative for injury, pain, and swelling, Respiratory: Negative for shortness of breath, cough, wheezing, and pleuritic chest pain, Abdomen/GI: Negative for abdominal pain, nausea, vomiting, diarrhea, and constipation, Back: Negative for injury and pain, : Negative for injury, bleeding, discharge, and swelling, MS/Extremity: Negative for injury and deformity, Skin: Negative for injury, rash, and discoloration, Neuro: Negative for headache, weakness, numbness, tingling, and seizure, Psych: Negative for depression, anxiety, suicide ideation, homicidal ideation, and hallucinations, Allergy/Immunology: Negative for hives, rash, and allergies, Endocrine: Negative for neck swelling, polydipsia, polyuria, polyphagia, and marked weight changes. 14:09 Cardiovascular: Positive for chest pain. Exam: 14:09 Constitutional: This is a well developed, well nourished patient who is awake, alert, columba and in no acute distress. Head/Face: Normocephalic, atraumatic. Eyes: Pupils equal round and reactive to light, extra-ocular motions intact. Lids and lashes normal. Conjunctiva and sclera are non-icteric and not injected. Cornea within normal limits. Periorbital areas with no swelling, redness, or edema. ENT: Nares patent. No nasal discharge, no septal abnormalities noted. Tympanic membranes are normal and external auditory canals are clear. Oropharynx with no redness, swelling, or masses, exudates, or evidence of obstruction, uvula midline. Mucous membranes moist. Neck: Trachea midline, no thyromegaly or masses palpated, and no cervical lymphadenopathy. Supple, full range of motion without nuchal rigidity, or vertebral point tenderness. No Meningismus. Chest/axilla: Normal chest wall appearance and motion. Nontender with no deformity. No lesions are appreciated. Cardiovascular: Regular rate and rhythm with a normal S1 and S2. No gallops, murmurs, or rubs. Normal PMI, no JVD. No pulse deficits. Respiratory: Lungs have equal breath sounds bilaterally, clear to auscultation and percussion. No rales, rhonchi or wheezes noted. No increased work of breathing, no retractions or nasal flaring. Abdomen/GI: Soft, non-tender, with normal bowel sounds. No distension or tympany. No guarding or rebound. No evidence of tenderness throughout. Back: No spinal tenderness. No costovertebral tenderness. Full range of motion. Male : Normal genitalia with no discharge or lesions. Skin: Warm, dry with normal turgor. Normal color with no rashes, no lesions, and no evidence of cellulitis. MS/ Extremity: Pulses equal, no cyanosis. Neurovascular intact. Full, normal range of motion. Neuro: Awake and alert, GCS 15, oriented to person, place, time, and situation. Cranial nerves II-XII grossly intact. Motor strength 5/5 in all extremities. Sensory grossly intact. Cerebellar exam normal. Normal gait. Psych: Awake, alert, with orientation to person, place and time. Behavior, mood, and affect are within normal limits. Vital Signs: 13:54 BP 152 / 74; Pulse 76; Resp 16 S; Temp 97.1(O); Pulse Ox 100% on R/A; Weight 105.23 kg jl7 (R); Height 6 ft. 0 in. (182.88 cm) (R); Pain 6/10; 14:30 BP 112 / 56; Pulse 50; Resp 19; Pulse Ox 99% on R/A; sg 15:00 BP 115 / 75; Pulse 49; Resp 17 S; Pulse Ox 99% on R/A; Pain 6/10; sg 15:53 BP 122 / 66; Pulse 45 MON; Resp 18 S; Pulse Ox 100% on R/A; Pain 6/10; sg 16:54 BP 118 / 56; Pulse 57; Resp 17; Pulse Ox 98% on R/A; rv 17:24 BP 111 / 60; Pulse 50; Resp 18; Pulse Ox 99% on R/A; sg 19:20 BP 109 / 53; Pulse 55; Resp 18 S; Temp 97.4(O); Pulse Ox 99% on R/A; cc3 20:00 BP 108 / 58; Pulse 54; Resp 18; Pulse Ox 100% on R/A; mt 20:37 BP 129 / 62; Pulse 52; Resp 20; Pulse Ox 100% on R/A; mt 13:54 Body Mass Index 31.46 (105.23 kg, 182.88 cm) jl7 15:53 Sinus bradycardia sg MDM: 14:02 Patient medically screened. columba 14:13 Data reviewed: vital signs, nurses notes, lab test result(s), EKG, radiologic studies, columba plain films. 04/14 14:08 Order name: Basic Metabolic Panel [place] 04/14 14:08 Order name: CBC with Diff 04/14 14:08 Order name: LFT's [facility] 04/14 14:08 Order name: Magnesium [facility] 04/14 14:08 Order name: NT PRO-BNP [facility] 04/14 14:08 Order name: PT-INR [facility] 04/14 14:08 Order name: Troponin (emerg Dept Use Only) 04/14 14:08 Order name: Lipase [facility] 04/14 15:22 Order name: CBC with Automated Diff; Complete Time: 16:32 [facility] 04/14 15:24 Order name: Protime (+INR); Complete Time: 16:32 [facility] 04/14 15:42 Order name: CBC Smear Scan; Complete Time: 16:32 [facility] 04/14 15:47 Order name: Basic Metabolic Panel; Complete Time: 16:32 [facility] 04/14 15:47 Order name: Liver (Hepatic) Function; Complete Time: 16:32 [facility] 04/14 15:47 Order name: Troponin (Emerg Dept Use Only); Complete Time: 16:32 [facility] 04/14 14:08 Order name: XRAY Chest (1 view) [facility] 04/14 14:08 Order name: EKG; Complete Time: 14:10 [facility] 04/14 14:08 Order name: Cardiac monitoring; Complete Time: 15:56 [facility] 04/14 14:08 Order name: EKG - Nurse/Tech; Complete Time: 15:56 [facility] 04/14 14:08 Order name: IV Saline Lock; Complete Time: 15:56 [facility] 04/14 14:08 Order name: Labs collected and sent; Complete Time: 15:56 [facility] 04/14 14:08 Order name: O2 Per Protocol; Complete Time: 15:56 [facility] 04/14 14:08 Order name: O2 Sat Monitoring; Complete Time: 15:56 [facility] 04/14 14:14 Order name: Echo w/ Doppler [facility] 04/14 14:49 Order name: RAD; Complete Time: 14:57 [facility] 04/14 15:47 Order name: NT PRO-BNP; Complete Time: 16:32 [facility] 04/14 15:47 Order name: Magnesium; Complete Time: 16:32 [facility] 04/14 15:47 Order name: Lipase; Complete Time: 16:32 [facility] 04/14 20:36 Order name: Troponin I EDMO Administered Medications: 14:30 Drug: NS 0.9% 1000 ml Route: IV; Rate: 125 ml/hr; Site: right antecubital; hb 14:30 Drug: Pepcid 20 mg Route: IVP; Site: right antecubital; hb Disposition: 04/14/18 14:14 Hospitalization ordered by Dylon Omer for Observation. Preliminary diagnosis are Chest pain, unspecified, Atrial fibrillation and flutter, Type 2 diabetes mellitus, Obesity, unspecified, Hypoxemia, Unspecified kidney failure, Bradycardia, unspecified. - Bed requested for Telemetry/MedSurg (observation). - Status is Observation. cc3 - Condition is Stable. - Problem is new. - Symptoms have improved. UTI on Admission? No Signatures: Dispatcher [employer] EDOle Shukla MD MD cha Baxter, Heather, RN RN Kaushal Perales RN RN jl7 Lalitha Webb RN RN df Sofi Reyes cc3 Corrections: (The following items were deleted from the chart) 15:06 14:14 Hospitalization Ordered by Dylon Omer MD for Observation. Preliminary diagnosis [place]umba is Chest pain, unspecified; Atrial fibrillation and flutter. Bed requested for Telemetry/MedSurg (observation). Status is Observation. Condition is Stable. Problem is new. Symptoms have improved. UTI on Admission? No. [place] 15:08 15:06 04/14/2018 14:14 Hospitalization Ordered by Dylon Omer MD for Observation. [place] Preliminary diagnosis is Chest pain, unspecified; Atrial fibrillation and flutter; Type 2 diabetes mellitus; Obesity, unspecified. Bed requested for Telemetry/MedSurg (observation). Status is Observation. Condition is Stable. Problem is new. Symptoms have improved. UTI on Admission? No. [place]umb[place] 16:33 15:08 04/14/2018 14:14 Hospitalization Ordered by Dylon Omer MD for Observation. [place] Preliminary diagnosis is Chest pain, unspecified; Atrial fibrillation and flutter; Type 2 diabetes mellitus; Obesity, unspecified; Hypoxemia. Bed requested for Telemetry/MedSurg (observation). Status is Observation. Condition is Stable. Problem is new. Symptoms have improved. UTI on Admission? No. [place] 16:42 16:33 04/14/2018 14:14 Hospitalization Ordered by Dylon Omer MD for Observation. [place] Preliminary diagnosis is Chest pain, unspecified; Atrial fibrillation and flutter; Type 2 diabetes mellitus; Obesity, unspecified; Hypoxemia; Unspecified kidney failure. Bed requested for Telemetry/MedSurg (observation). Status is Observation. Condition is Stable. Problem is new. Symptoms have improved. UTI on Admission? No. [place] 17:01 16:42 04/14/2018 14:14 Hospitalization Ordered by Dylon Omer MD for Observation. df Preliminary diagnosis is Chest pain, unspecified; Atrial fibrillation and flutter; Type 2 diabetes mellitus; Obesity, unspecified; Hypoxemia; Unspecified kidney failure; Bradycardia, unspecified. Bed requested for Telemetry/MedSurg (observation). Status is Observation. Condition is Stable. Problem is new. Symptoms have improved. UTI on Admission? No. [place] 20:50 17:01 04/14/2018 14:14 Hospitalization Ordered by Dylon Omer MD for Observation. cc3 Preliminary diagnosis is Chest pain, unspecified; Atrial fibrillation and flutter; Type 2 diabetes mellitus; Obesity, unspecified; Hypoxemia; Unspecified kidney failure; Bradycardia, unspecified. Bed requested for Telemetry/MedSurg (observation). Status is Observation. Condition is Stable. Problem is new. Symptoms have improved. UTI on Admission? No. df
--- NOTE | 2018-04-14 14:48 | RAD REPORT ---
EXAM DESCRIPTION: Karo Single View04/14/2018 2:40 pm CLINICAL HISTORY: Chest pain COMPARISON: February 2018 FINDINGS: The lungs appear clear of acute infiltrate. The heart is mildly enlarged. Postsurgical changes involve the chest. IMPRESSION: No acute abnormalities displayed
[2018-04-14] MEDS ORDERED: ONDANSETRON 4 MG/2 ML VIAL IV PRN (15:13)
[2018-04-14] MEDS ORDERED: SODIUM CHLORIDE 0.9% 10ML INJ IV PRN (15:13)
[2018-04-14] MEDS ORDERED: ACETAMINOPHEN 500 MG TAB PO PRN (15:13)
[2018-04-14] MEDS ORDERED: D50W 25 GM/50 ML SYRINGE IV PRN (15:16)
[2018-04-14] MEDS ORDERED: GLUCAGON 1 MG/VIAL IM PRN (15:16)
[2018-04-14 15:20] LABS: Absolute Lymphocytes (CBC) 1.1 K/uL (0.7-4.9); Absolute Monocytes 0.6 K/uL (0.1-1.3); Absolute Neutrophil 5.5 K/uL (1.8-8.0); Basophils % 0.6 % (0-1.3); Eosinophils % 1.3 % (0-4.4); Hematocrit 41.2 % (39.6-49.0); Lymphocytes % 15.2 % (15.3-44.8); MCH 27.6 pg (27.0-35.0); MPV 9.2 fL (7.6-11.3); Monocytes % 8.2 % (3.3-12.3); RBC Red Blood Cell Count 4.78 M/uL (4.33-5.43)
[2018-04-14 15:23] LABS: Protime INR 1.23
[2018-04-14 15:41] LABS: Blood Morphology Comment NOT SEEN (NOT SEEN); Platelet Estimate ADEQ; Platelets, Giant NOTED; Urine White Blood Cell Casts OK
[2018-04-14 15:46] LABS: ALT/SGPT 18 U/L (12-78); AST/SGOT 12 U/L (15-37); Albumin 2.7 g/dL (3.4-5.0); Alkaline Phosphatase 86 U/L (45-117); BUN Blood Urea Nitrogen 39 mg/dL (7-18); Bicarbonate 26 mmol/L (21-32); Bilirubin Direct 0.1 mg/dL (0-0.2); Bilirubin Total 0.3 mg/dL (0.2-1.0); Glucose Level 108 mg/dL (74-106); Lipase 177 U/L (73-393); Magnesium 2.3 mg/dL (1.8-2.4); NT PRO-BNP 1509 pg/mL (<450); Potassium 4.1 mmol/L (3.5-5.1); Protein, Total 7.9 g/dL (6.4-8.2); Sodium Level 139 mmol/L (136-145); Troponin (Emerg Dept Use Only) < 0.02 ng/mL (0.0-0.045)
--- NOTE | 2018-04-14 16:00 | EKG ---
Test Date: 2018-04-14 Test Time: 13:51:33 Artist Blacksmith: MARCE MEASUREMENT RESULTS: Intervals: Rate: 53 WV: QRSD: 84 QT: 462 QTc: 433 [place]: P: WV: QRS: 77 T: 14 INTERPRETIVE STATEMENTS: Atrial fibrillation with slow ventricular response Low voltage QRS Cannot rule out Anteroseptal infarct, age undetermined Abnormal ECG Compared to ECG 03/01/2018 01:02:44 No significant changes Electronically Signed On 04-14-18 15:58:57 VISUAL EDUCATION DIRECTOR by Vazquez Santos
[2018-04-14] MEDS: INSULIN -REGULAR HUMAN 50 UNIT/0.5 ML ML SQ SCH ×2 (16:30→21:00)
[2018-04-14] MEDS ORDERED: RIVAROXABAN 20 MG TABLET PO SCH (17:30)
--- NOTE | 2018-04-14 19:33 | P.HP ---
Certification for Inpatient Patient admitted to: Observation With expected LOS: <2 Midnights Practitioner: I am a practitioner with admitting privileges, knowledge of patient current condition, hospital course, and medical plan of care. Services: Services provided to patient in accordance with Admission requirements found in Title 42 Section 412.3 of the Code of Federal Regulations Patient History Date of Service: 04/14/18 Reason for admission: CHEST PAIN History of Present Illness: MR. ELAINE IS A PATIENT WITH CAD, CABG, DJD, DM. CHF, HTN, ORTHOSTATIC HYPOTENSION, COLOSTOY FOR DIVERTICULAR ABSCESS, FOLLOWED BY A LARGE BEDSORE IN THE SACRAL REGION. HE HAS BEEN TO ER OFTEN WITH MANY DIFFERENT COMPLAINTS. THIS TIME IT IS CHEST PAIN THIS AM ABOUT 15 MIN. NO RADIATION NO DYSPNEA, NO FEVER, NO DIAPHORESIS. HE GOEST TO DR. MAURICIO FOR CARDIOLOGY. Allergies No Known Drug Allergies Allergy (Verified 07/17/17 15:39) Unknown No Known Allergies Allergy (Uncoded 12/22/17 04:18) Unknown Home Medications: Allopurinol [Zyloprim*] 100 mg PO DAILY 03/01/18 Amiodarone HCl [Cordarone*] 200 mg PO DAILY 03/01/18 Ascorbic Acid 500 mg PO BID 03/01/18 Atorvastatin Calcium 40 mg PO BEDTIME 03/01/18 Escitalopram Oxalate [Lexapro] 10 mg PO DAILY 03/01/18 Folic Acid 1 mg PO DAILY 03/01/18 Magnesium Oxide [Magnesium] 800 mg PO DAILY 03/01/18 Pantoprazole [Protonix Tab*] 40 mg PO DAILY 03/01/18 Rivaroxaban [Xarelto*] 15 mg PO DAILY 03/01/18 Zinc Sulfate [Zinc Sulfate*] 220 mg PO DAILY 03/01/18 Amox/Clavulanate [Augmentin 875-125 Tab] 875 mg PO BID #14 tab 03/02/18 Furosemide 80 mg PO DAILY #90 tablet 03/02/18 Spironolactone 25 mg PO DAILY #90 tablet 03/02/18 - Past Medical/Surgical History Diabetic: No -: Prior elboW pain -: LYMPHEDEMA -: GOUT -: HYPERTENSION -: HIGH CHOLESTEROL -: OBESITY -: Afib -: NH -: sacrum wound with wound vac -: diverticulitis -: sebaceous cyst July 2012 -: two back sx 1969 & 1981 -: bladder sx 2006 -: triple bypass july 2017 -: colostomy -: sacrum wound debridement - Family History Father -: Heart disease, Diabetes Mother -: Cancer - Social History Alcohol use: No CD- Drugs: No Caffeine use: No Review of Systems 10-point ROS is otherwise unremarkable General: Weakness, Malaise Cardiovascular: Chest Pain Physical Examination - Physical Exam General: Alert, In no apparent distress HEENT: Atraumatic, PERRLA, Mucous membr. moist/pink, EOMI, Sclerae nonicteric Neck: Supple, 2+ carotid pulse no bruit, No LAD, Without JVD or thyroid abnormality Respiratory: Clear to auscultation bilaterally, Normal air movement Cardiovascular: Regular rate/rhythm, Normal S1 S2 Gastrointestinal: Normal bowel sounds, No tenderness Musculoskeletal: No tenderness Integumentary: No rashes Neurological: Normal gait, Normal speech, Normal strength at 5/5 x4 extr, Normal tone, Normal affect Lymphatics: No axilla or inguinal lymphadenopathy Assessment and Plan - Problems (Diagnosis) (1) Chest pain Onset Date: 03/04/14 Current Visit: No Status: Acute Plan: PAIN IS ATYPICAL BUT HE HAS RISK FACTORS FOR CAD. CONSULT DR. MAURICIO- HIS PRICING CLERK. HE MAY NEED ST TEST. (2) Atrial fibrillation Onset Date: 03/04/14 Current Visit: No Status: Chronic Plan: NO CHANGE S RATE IS CONTROLLED RESUMEMEDS. Qualifiers: (3) Diabetes Onset Date: 03/02/18 Current Visit: No Status: Chronic Plan: NURSING HOME ISSUES STABLE CHECK A1C Qualifiers: Diabetes mellitus type: type 2 (4) Stage 4 decubitus ulcer Onset Date: 03/02/18 Current Visit: No Status: Chronic Plan: DR. HERRERA ON CASE CONTINUE [facility] PUMP. Qualifiers: - Advance Directives Does patient have a Living Will: No Does patient have a Durable POA for Healthcare: No
[2018-04-14] MEDS: LEVALBUTEROL 1.25 MG/3 ML NEB NEB SCH (21:03)
[2018-04-14] MEDS: IPRATROPIUM BROM 0.5MG/2.5ML NEB SCH (21:04)
[2018-04-14 21:52] VITALS: BMI 28.3
[2018-04-15] MEDS: IPRATROPIUM BROM 0.5MG/2.5ML NEB SCH ×2 (01:55→09:03)
[2018-04-15] MEDS: LEVALBUTEROL 1.25 MG/3 ML NEB NEB SCH ×2 (01:55→09:03)
[2018-04-15 04:05] LABS: MPV 9.7 fL (7.6-11.3)
[2018-04-15 04:09] LABS: Absolute Lymphocytes (CBC) 2.2 K/uL (0.7-4.9); Absolute Monocytes 0.7 K/uL (0.1-1.3); Absolute Neutrophil 5.8 K/uL (1.8-8.0); Basophils % 0.6 % (0-1.3); Eosinophils % 0.8 % (0-4.4); Hematocrit 41.8 % (39.6-49.0); MCH 27.4 pg (27.0-35.0); MCV 84.6 fL (80-100); Monocytes % 7.9 % (3.3-12.3); RBC Red Blood Cell Count 4.94 M/uL (4.33-5.43)
[2018-04-15 04:13] LABS: Potassium 3.8 mmol/L (3.5-5.1)
[2018-04-15] MEDS ORDERED: PANTOPRAZOLE 40MG TABLET PO SCH ×2 (06:30→09:00)
[2018-04-15] MEDS: INSULIN -REGULAR HUMAN 50 UNIT/0.5 ML ML SQ SCH ×2 (07:30→11:30)
--- NOTE | 2018-04-15 07:39 | ECHO ---
HEIGHT: 6 ft 4 in WEIGHT: 232 lb 11.2 oz DATE OF STUDY: 04/14/[address]: Ole Phillips MD 2-DIMENSIONAL: YES M.MODE: YES DOPPLER: YES COLOR FLOW: YES TDS: YES PORTABLE: YES DEFINITY: BUBBLE STUDY: DIAGNOSIS: CHEST PAIN, ATRIAL FIBRILLATION CARDIAC HISTORY: CATHERIZATION: YES SURGERY: YES PROSTHETIC VALVE: NO PACEMAKER: NO MEASUREMENTS (cm) DIASTOLIC (NORMALS) SYSTOLIC (NORMALS) IVSd 1.1 (0.6-1.2) LA Diam 4.2 (1.9-4.0) LVEF 62% LVIDd 4.5 (3.5-5.7) LVIDs 3.0 (2.0-3.5) %FS 33% LVPWd 1.1 (0.6-1.2) Ao Diam 3.5 (2.0-3.7) 2 DIMENSIONAL ASSESSMENT: RIGHT ATRIUM: NORMAL LEFT ATRIUM: DILATED RIGHT VENTRICLE: NORMAL LEFT VENTRICLE: NORMAL TRICUSPID VALVE: NORMAL MITRAL VALVE: MITRAL ANNULAR CALCIFICATION PULMONIC VALVE: NORMAL AORTIC VALVE: NORMAL PERICARDIAL EFFUSION: NONE AORTIC ROOT: NORMAL LEFT VENTRICULAR WALL MOTION: NORMAL EJECTION FRACTION. DOPPLER/COLOR FLOW: MILD TRICUSPID REGURGITATION. COMMENTS: MILD TRICUSPID REGURGITATION. NORMAL LEFT VENTRICULAR EJECTION FRACTIN AND SIZE. DECREASED LEFT VENTRICULAR COMPLIANCE. MITRAL ANNULAR CALCIFICATION. LEFT ATRIAL ENLARGEMENT. TECHNOLOGIST: KESHA SUNSHINE
[2018-04-15] MEDS ORDERED: RIVAROXABAN 10 MG TABLET PO SCH (09:00)
[2018-04-15] MEDS ORDERED: ESCITALOPRAM 20 MG TAB PO SCH (09:00)
[2018-04-15] MEDS ORDERED: ALLOPURINOL 100 MG TAB PO SCH (09:00)
[2018-04-15] MEDS ORDERED: FUROSEMIDE 40 MG TABLET PO SCH (09:00)
[2018-04-15] MEDS ORDERED: DOCUSATE NA 100 MG CAP PO SCH (09:00)
[2018-04-15] MEDS ORDERED: METOPROLOL XL 25 MG TAB PO SCH (09:00)
[2018-04-15] MEDS ORDERED: SPIRONOLACTONE 25 MG TABLET PO SCH (09:00)
[2018-04-15] MEDS ORDERED: MAGNESIUM OXIDE 400 MG TAB PO SCH (09:00)
[2018-04-15] MEDS ORDERED: FOLIC ACID 1 MG TABLET PO SCH (09:00)
[2018-04-15] MEDS ORDERED: PANTOPRAZOLE 40 MG INJ IVP SCH (09:00)
[2018-04-15] MEDS ORDERED: ZINC SULFATE 220 MG CAP PO SCH (09:00)
[2018-04-15] MEDS ORDERED: AMIODARONE HCL 200 MG TAB PO SCH ×2 (09:00)
[2018-04-15] MEDS ORDERED: RIVAROXABAN 15 MG TABLET PO SCH (09:00)
--- NOTE | 2018-04-15 09:09 | RAD REPORT ---
EXAM DESCRIPTION: Karo Single View04/15/2018 6:42 am CLINICAL HISTORY: Chest pain COMPARISON: April 14, 2018 FINDINGS: The lungs appear clear of acute infiltrate. The heart is moderately enlarged. Postsurgical changes involve the chest. IMPRESSION: No acute abnormalities displayed
[2018-04-15] MEDS ORDERED: GENTAMICIN SULF 80 MG/2ML INJ ONE (09:30)
--- NOTE | 2018-04-15 12:39 | EKG ---
Test Date: 2018-04-15 Test Time: 09:02:33 Rn Cardiovascular Icu: MARCE MEASUREMENT RESULTS: Intervals: Rate: 51 VA: QRSD: 84 QT: 490 QTc: 451 [place]ax: P: VA: QRS: 35 T: 10 INTERPRETIVE STATEMENTS: Atrial fibrillation with slow ventricular response Low voltage QRS Cannot rule out Anteroseptal infarct, age undetermined Abnormal ECG Compared to ECG 04/14/2018 13:51:33 No significant changes Electronically Signed On 04-15-18 12:38:40 OPERATOR CONTROL ROOM by Avery Alfred
[2018-04-15 13:07] VITALS: BP 116/70; TEMP 98.8
--- NOTE | 2018-04-15 13:43 | CON ---
History Of Present Illness: Mr. Pacheco is 73. He came to the hospital mainly because his home heal th people sent him. He had pain in the left pectoral region, lasted about 15 seconds, seemed to be a ssociated with movement and is noted for several days. When he stands, his blood pressure is low. I t is getting hard for him to stand. Within the past week or so, Dr. Omer reduced his metoprolol fro m 50-25, reduce his Lasix to 40 mg once a day from a higher dose. Even with this, he is somewhat ort hostatic, although his blood pressures in the hospital had been okay. He had bypass surgery about 6 months ago a little longer. Since then, he had failure to thrive. He has a wound, [facility] has a wound VAC treatment. He is on antibiotics. He is in chronic AFib. He has heart f ailure with normal ejection fraction and he has a very poor appetite and he has lost somewhere betwee n 70-100 pounds over the last 6 months. Physical Examination: Vital Signs: 6 feet 4 inches tall, 232 pounds. Blood pressure 122/58, temperature 97. HEENT: Unremarkable. Lungs: His lungs do not reveal crackles or wheezes. Heart: Irregularly irregular about 58 beats per minute. Extremities: Discoloration, venous insufficiency. Distal pulses diminished, but palpable. No edema . Laboratory Data: His electrocardiogram is not different from older EKGs. Questionable septal infarc t, Afib. Heart rate in the 50s, 53. Impression: Mr. Pacheco is stable with respect to his coronary arteries. We do not need to do a str ess test or heart catheterization at this time. I think we need to reduce the amount of Lasix and damon payne p.r.n. Keep the metoprolol dose low at 25, though we may need to quit that. His heart rate co ntrol should be quite good on amiodarone without metoprolol. Continue at the lower dose until we nee d to stop it is what I would recommend for now. I think he could be discharged home. MAGY/GERMÁN Voice ID: [id number] Report ID: [id number]
--- NOTE | 2018-04-15 13:50 | P.DS ---
Admission Date: 04/14/18 Discharge Date: 04/15/18 Disposition: ROUTINE DISCHARGE Discharge Condition: SERIOUS Reason for Admission: CHEST PAIN - Problems (1) Chest pain Onset Date: 03/04/14 Current Visit: No Status: Acute (2) Atrial fibrillation Onset Date: 03/04/14 Current Visit: No Status: Chronic Qualifiers: (3) Diabetes Onset Date: 03/02/18 Current Visit: No Status: Chronic Qualifiers: Diabetes mellitus type: type 2 (4) Stage 4 decubitus ulcer Onset Date: 03/02/18 Current Visit: No Status: Chronic Qualifiers: Brief History of Present Illness: MR. ELAINE IS A PATIENT WITH CAD, CABG, DJD, DM. CHF, HTN, ORTHOSTATIC HYPOTENSION, COLOSTOY FOR DIVERTICULAR ABSCESS, FOLLOWED BY A LARGE BEDSORE IN THE SACRAL REGION. HE HAS BEEN TO ER OFTEN WITH MANY DIFFERENT COMPLAINTS. THIS TIME IT IS CHEST PAIN THIS AM ABOUT 15 MIN. NO RADIATION NO DYSPNEA, NO FEVER, NO DIAPHORESIS. HE GOEST TO DR. MAURICIO FOR CARDIOLOGY. MR. ELAINE IS STABLE AND COMFORTABLE. HE HAS POOR PROGNOSIS HE HAS MANY ISSUES. HE IS HAVING NO CHEST PAIN. HE HAS NTG AT HOME TO TAKE. HIS IS CALLING SINCE AM TO GO HOME SHE HAS TO COOK FOR 25 PEOPLE. DIET AT HOME IS STILL POOR. Vital Signs/Physical Exam: Temp Pulse Resp BP Pulse Ox 98.8 F 60 20 116/70 96 04/15/18 12:00 04/15/18 12:00 04/15/18 12:00 04/15/18 12:00 04/15/18 12:00 Laboratory Data at Discharge: WBC 8.9 K/uL (4.3-10.9) D 04/15/18 03:27 Hgb 13.5 g/dL (13.6-17.9) L 04/15/18 03:27 Hct 41.8 % (39.6-49.0) 04/15/18 03:27 Plt Count 265 K/uL (152-406) 04/15/18 03:27 PT 14.6 SECONDS (9.5-12.5) H 04/14/18 15:11 INR 1.23 04/14/18 15:11 Sodium 139 mmol/L (136-145) 04/15/18 03:27 Potassium 3.8 mmol/L (3.5-5.1) 04/15/18 03:27 BUN 34 mg/dL (7-18) H 04/15/18 03:27 Creatinine 2.00 mg/dL (0.55-1.3) H 04/15/18 03:27 Glucose 102 mg/dL (74-106) 04/15/18 03:27 Magnesium 2.3 mg/dL (1.8-2.4) 04/14/18 15:11 Total Bilirubin 0.3 mg/dL (0.2-1.0) 04/14/18 15:11 AST 12 U/L (15-37) L 04/14/18 15:11 ALT 18 U/L (12-78) 04/14/18 15:11 Alkaline Phosphatase 86 U/L (45-117) 04/14/18 15:11 Troponin I 0.03 ng/mL (0.0-0.045) 04/14/18 22:40 Lipase 177 U/L (73-393) 04/14/18 15:11 Home Medications: Allopurinol 200 mg PO DAILY 04/14/18 Amiodarone HCl [Cordarone*] 200 mg PO DAILY 04/14/18 Ascorbic Acid [Vitamin C] 500 mg PO DAILY 04/14/18 Atorvastatin Calcium [Lipitor] 40 mg PO BEDTIME 04/14/18 Docusate [Colace Cap*] 200 mg PO BID 04/14/18 Escitalopram Oxalate 10 mg PO DAILY 04/14/18 Folic Acid 1 mg PO DAILY 04/14/18 Furosemide [Lasix] 40 mg PO DAILY 04/14/18 Magnesium Oxide 400 mg PO DAILY 04/14/18 Metoprolol Succinate [Toprol Xl*] 25 mg PO DAILY 04/14/18 Multivitamin [Multivitamins] 1 each PO DAILY 04/14/18 Pantoprazole [Protonix Tab*] 40 mg PO DAILY 04/14/18 Rivaroxaban [Xarelto*] 20 mg PO DAILY 04/14/18 Spironolactone [Aldactone*] 25 mg PO DAILY 04/14/18 Zinc Sulfate [Zinc Sulfate*] 220 mg PO DAILY 04/14/18 Diet: AHA Activity: Fall precautions Followup: Dylon Omer MD [Primary Care Provider] -
[2018-04-15 15:32] VITALS: O2SAT 96
[2018-04-15] MEDS ORDERED: ATORVASTATIN 40 MG TAB PO SCH (21:00)
== END 2018-04-15 14:11 | disposition home or self-care (01) ==
LOC: ER 13:38 → ERHOLD 15:10 → 4TH 20:30
PROVIDERS: ADMIT Internal Medicine; ATTEND Internal Medicine
DX: R07.9 Chest pain, unspecified (principal); I48.91 Unspecified atrial fibrillation; E11.9 Type 2 diabetes mellitus without complications; I25.10 Atherosclerotic heart disease of native coronary artery without angina pectoris; L89.154 Pressure ulcer of sacral region, stage 4; I48.2 Chronic atrial fibrillation; Z95.1 Presence of aortocoronary bypass graft; Z93.3 Colostomy status
CPT/HCPCS: 36415; 71045 ×2; 80048 ×2; 80076; 82962 ×3; 83690; 83735; 83880; 84484 ×3; 85025 ×2; 85610; 93005 ×2; 93306; 94640; 96374; 99285; J1580; G0378

== ENCOUNTER 2018-05-25 17:23 | Emergency (ER) | payer OTHER ==
--- OUTSIDE RECORDS SUMMARY | 2018-05-25 17:37 | XMS REPORT ---
:1945 [facility] [address] [place] [address] [address] [place] [address] Care Team Providers Name Role Phone JOSE [...] (BEAKER) (test 128 mg/dL 70-110 TESTED AT [facility] [address] [place] [address] unhy=[id number]) [facility] [address] POCT-GLUCOSE [id number] 08:45:00 Test Item Value Reference Range Comments POC-GLUCOSE METER (BEAKER) 116 mg/dL 70-110 TESTED AT [address] (test wbus=3911) [facility] [address] BLOOD [id number] 08:27:00 Test Item Value Reference Range Comments CULTURE (BEAKER) From Aerobic Bottle Only (test htil=3316) Coagulase negative Staphylococcus GRAM STAIN RESULT From aerobic bottle (BEAKER) (test only: gram positive dunm=9482) cocci in clusters Coagulase Negative Staphylococcus Species [...] required. This sample was tested at the [facility] Clinical Microbiology Laboratory using the Reachoo Blood Culture ID Panel.This test is FDA cleared for in vitro diagnostic use and has been verified and approved by the [facility] for [facility] use. Reference Range: Not DetectedPOCT-GLUCOSE [id number] 20:41:00 Test Item Value Reference Range Comments POC-GLUCOSE METER (BEAKER) 153 mg/dL 70-110 TESTED AT [address] (test gngh=7175) [place] [id number] POCT-GLUCOSE [id number] 18:53:00 Test Item Value Reference Range Comments POC-GLUCOSE METER (BEAKER) 138 mg/dL 70-110 TESTED AT [address] (test gsch=0400) [facility] [address] POCT-GLUCOSE [id number] 12:27:00 Test Item Value Reference Range Comments POC-GLUCOSE METER (BEAKER) 147 mg/dL 70-110 TESTED AT [address] (test zceu=6544) [place] [id number] POCT-GLUCOSE [id number] 08:21:00 Test Item Value Reference Range Comments POC-GLUCOSE METER (BEAKER) 106 mg/dL 70-110 TESTED AT [address] (test muld=3247) [place] [address] POCT-GLUCOSE [id number] 22:43:00 Test Item Value Reference Range Comments POC-GLUCOSE METER (BEAKER) 160 mg/dL 70-110 TESTED AT [address] (test ytbc=1698) [facility] [address] POCT-GLUCOSE [id number] 17:22:00 Test Item Value Reference Range Comments POC-GLUCOSE METER (BEAKER) 139 mg/dL 70-110 TESTED AT [address] (test ignh=4901) [facility] [address] POCT-GLUCOSE [id number] 16:09:00 Test Item Value Reference Range Comments POC-GLUCOSE METER (BEAKER) 123 mg/dL 70-110 TESTED AT [address] (test grpg=8205) [place] [id number] POCT-GLUCOSE [id number] 21:33:00 Test Item Value Reference Range Comments POC-GLUCOSE METER (BEAKER) 144 mg/dL 70-110 TESTED AT [address] (test qckb=2691) [facility] [address] POCT-GLUCOSE [id number] 17:38:00 Test Item Value Reference Range Comments POC-GLUCOSE METER (BEAKER) 126 mg/dL 70-110 TESTED AT [address] (test tvtv=0817) [place] [address] POCT-GLUCOSE [id number] 11:59:00 Test Item Value Reference Range Comments POC-GLUCOSE METER (BEAKER) 112 mg/dL 70-110 TESTED AT [address] (test ieix=3520) [place] [address] WOUND CULTURE + GRAM [id number] 08:12:00 Test Item Value Reference Range Comments CULTURE (BEAKER) (test STAPHYLOCOCCUS AUREUS 2+ Staphylococcus nyge=4032) aureus Clindamycin (test code=10) Erythromycin (test code=4) Linezolid (test code=40) Nitrofurantoin (test code=23) Oxacillin (test code=14) Rifampin (test code=43) Tetracycline (test code=2) Trimethoprim + Sulfamethoxazole (test code=47) Vancomycin (test code=13) GRAM STAIN RESULT <1+ WBCs (BEAKER) (test ayka=7153) GRAM STAIN RESULT <1+ gram positive (BEAKER) (test cocci in chains and nywe=380447) pairs 3+ Skin floraMISCELLANEOUS LAB [id number] 07:32:00 Test Item Value Reference Range Comments SCAN RESULT (test fvgc=[id number]) Result comments: Coagulase Negative Staphylococcus Species (CoNS) [...] required. This sample was tested at the [facility] Clinical Microbiology Laboratory using the Reachoo Blood Culture ID Panel. This test is FDA cleared for in vitro diagnostic use and has been verified and approved by the [facility] Clinical Microbiology laboratory for clinical use. Reference Range: Not DetectedPOCT-GLUCOSE [id number] 07:31:00 Test Item Value Reference Range Comments POC-GLUCOSE METER (BEAKER) 107 mg/dL 70-110 TESTED AT [address] (test uzzp=5212) [place] [address] POCT-GLUCOSE [id number] 23:08:00 Test Item Value Reference Range Comments POC-GLUCOSE METER (BEAKER) 106 mg/dL 70-110 TESTED AT [address] (test kind=8599) [place] [address] POCT-GLUCOSE [id number] 16:57:00 Test Item Value Reference Range Comments POC-GLUCOSE METER (BEAKER) 140 mg/dL 70-110 TESTED AT [address] (test faha=4717) [place] [address] POCT-GLUCOSE [id number] 12:19:00 Test Item Value Reference Range Comments POC-GLUCOSE METER (BEAKER) 114 mg/dL 70-110 TESTED AT [address] (test hiol=9530) [place] [address] POCT-GLUCOSE [id number] 08:40:00 Test Item Value Reference Range Comments POC-GLUCOSE METER (BEAKER) 117 mg/dL 70-110 TESTED AT [address] (test sicq=8106) [place] [address] MR, PELVIS, [id number] 07:23:00FINAL REPORT MRI pelvis without and with [...] No evidence of osteomyelitis. Signed: Robert Laughlin [facility] Verified Date/Time: 11/30/2017 07:23 :22 Reading Location: [facility] C013X [facility] Consult Reading Room POCT-GLUCOSE [id number] 22:33:00 Test Item Value Reference Range Comments POC-GLUCOSE METER (BEAKER) 137 mg/dL 70-110 TESTED AT [address] (test tefw=2839) [place] [address] POCT-GLUCOSE [id number] 16:49:00 Test Item Value Reference Range Comments POC-GLUCOSE METER (BEAKER) 118 mg/dL 70-110 TESTED AT [address] (test htem=5108) [place] [address] POCT-GLUCOSE [id number] 12:37:00 Test Item Value Reference Range Comments POC-GLUCOSE METER (BEAKER) 146 mg/dL 70-110 TESTED AT [address] (test ngde=9728) [place] [address] POCT-GLUCOSE [id number] 08:46:00 Test Item Value Reference Range Comments POC-GLUCOSE METER (BEAKER) 109 mg/dL 70-110 TESTED AT [address] (test cpfv=2947) [place] [address] [id number] 05:26:00 Test Item Value Reference Range Comments PREALBUMIN (BEAKER) (test qnal=223) 15 mg/dL 14-45 POCT-GLUCOSE [id number] 22:08:00 Test Item Value Reference Range Comments POC-GLUCOSE METER (BEAKER) 120 mg/dL 70-110 TESTED AT [address] (test zsnr=9590) [place] [address] RAD, CHEST, 1 VIEW, NON [id number] 22:05:00Reason for exam:->Post PICC line insertion RUE [...] MDReport Verified Date/Time: 11/28/2017 22:05:39 Reading Location: [address] Reading Room POCT- GLUCOSE [id number] 17:58:00 Test Item Value Reference Range Comments POC-GLUCOSE METER (BEAKER) 181 mg/dL 70-110 TESTED AT [facility] [address] [facility] (test zvfn=8119) [facility] [address] BASIC METABOLIC [id number] 14:55:00 Test Item Value Reference Range Comments SODIUM (BEAKER) (test 138 meq/L 136-145 ziud=169) POTASSIUM (BEAKER) (test 4.2 meq/L 3.5-5.1 egcs=706) CHLORIDE (BEAKER) (test 106 meq/L 98-107 pznr=153) CO2 (BEAKER) (test 26 meq/L 22-29 kgyx=512) BLOOD UREA NITROGEN 21 mg/dL 7-21 (BEAKER) (test ehtf=151) CREATININE (BEAKER) (test 1.18 mg/dL 0.57-1.25 udwe=509) GLUCOSE RANDOM (BEAKER) 108 mg/dL 70-105 (test qsrc=300) CALCIUM (BEAKER) (test 9.3 mg/dL 8.4-10.2 qlxg=747) EGFR (BEAKER) (test 60 mL/min/1.73 sq m ESTIMATED GFR IS NOT xmvf=2098) ACCURATE CREATININE CLEARANCE IN PREDICTING GLOMERULAR FILTRATION RATE. ESTIMATED GFR IS NOT APPLICABLE FOR DIALYSIS PATIENTS. CBC W/PLT COUNT & AUTO [id number] 14:29:00 Test Item Value Reference Range Comments WHITE BLOOD CELL COUNT (BEAKER) (test qlff=174) 8.5 K/ L 3.5-10.5 RED BLOOD CELL COUNT (BEAKER) (test khiw=866) 4.49 M/ L 4.63-6.08 HEMOGLOBIN (BEAKER) (test udef=571) 11.6 GM/DL 13.7-17.5 HEMATOCRIT (BEAKER) (test ocya=092) 38.7 % 40.1-51.0 MEAN CORPUSCULAR VOLUME (BEAKER) (test olcb=658) 86.2 fL 79.0-92.2 MEAN CORPUSCULAR HEMOGLOBIN (BEAKER) (test 25.8 pg 25.7-32.2 jevk=232) MEAN CORPUSCULAR HEMOGLOBIN CONC (BEAKER) (test 30.0 GM/DL 32.3-36.5 gfqh=179) RED CELL DISTRIBUTION WIDTH (BEAKER) (test 19.9 % 11.6-14.4 nwuw=580) PLATELET COUNT (BEAKER) (test djss=025) 395 K/CU MM 150-450 MEAN PLATELET VOLUME (BEAKER) (test xyib=030) 11.0 fL 9.4-12.4 NUCLEATED RED BLOOD CELLS (BEAKER) (test 0 /100 WBC 0-0 nkrs=008) NEUTROPHILS RELATIVE PERCENT (BEAKER) (test 71 % wkpc=146) LYMPHOCYTES RELATIVE PERCENT (BEAKER) (test 20 % pldf=845) MONOCYTES RELATIVE PERCENT (BEAKER) (test 6 % jglj=287) EOSINOPHILS RELATIVE PERCENT (BEAKER) (test 1 % ryom=274) BASOPHILS RELATIVE PERCENT (BEAKER) (test 1 % pbic=321) NEUTROPHILS ABSOLUTE COUNT (BEAKER) (test 6.05 K/ L 1.78-5.38 vkfm=036) LYMPHOCYTES ABSOLUTE COUNT (BEAKER) (test 1.73 K/ L 1.32-3.57 jlmr=017) MONOCYTES ABSOLUTE COUNT (BEAKER) (test 0.52 K/ L 0.30-0.82 jyrb=008) EOSINOPHILS ABSOLUTE COUNT (BEAKER) (test 0.12 K/ L 0.04-0.54 kjkc=097) BASOPHILS ABSOLUTE COUNT (BEAKER) (test 0.05 K/ L 0.01-0.08 pzle=196) IMMATURE GRANULOCYTES-RELATIVE PERCENT (BEAKER) 0 % 0-1 (test zrku=0466) AFB CULTURE + [id number] 09:43:00 Test Item Value Reference Range Comments CULTURE (BEAKER) (test No acid-fast bacilli isolated mezu=5141) in 42 days AFB SMEAR (BEAKER) (test No acid fast bacilli seen gnir=652) AFB CULTURE + [id number] 09:43:00 Test Item Value Reference Range Comments CULTURE (BEAKER) (test No acid-fast bacilli isolated osdg=6918) in 42 days AFB SMEAR (BEAKER) (test No acid fast bacilli seen msak=697) POCT-GLUCOSE [id number] 12:56:00 Test Item Value Reference Range Comments POC-GLUCOSE METER (BEAKER) 119 mg/dL 70-110 TESTED AT [address] (test wvta=3794) [facility] [address] POCT-GLUCOSE [id number] 08:17:00 Test Item Value Reference Range Comments POC-GLUCOSE METER (BEAKER) 111 mg/dL 70-110 TESTED AT [address] (test sbrx=3047) [facility] [address] POCT-GLUCOSE [id number] 21:59:00 Test Item Value Reference Range Comments POC-GLUCOSE METER (BEAKER) 130 mg/dL 70-110 TESTED AT [address] (test amok=9860) [place] [id number] POCT-GLUCOSE [id number] 16:59:00 Test Item Value Reference Range Comments POC-GLUCOSE METER (BEAKER) 120 mg/dL 70-110 TESTED AT [address] (test vhgm=3217) [facility] [address] POCT-GLUCOSE [id number] 11:30:00 Test Item Value Reference Range Comments POC-GLUCOSE METER (BEAKER) 125 mg/dL 70-110 TESTED AT [address] (test wltu=1789) [facility] [address] POCT-GLUCOSE [id number] 07:44:00 Test Item Value Reference Range Comments POC-GLUCOSE METER (BEAKER) 104 mg/dL 70-110 TESTED AT [address] (test wpbe=7690) [facility] [address] BASIC METABOLIC [id number] 06:15:00 Test Item Value Reference Range Comments SODIUM (BEAKER) (test 140 meq/L 136-145 mvuf=428) POTASSIUM (BEAKER) (test 3.7 meq/L 3.5-5.1 qxxz=425) CHLORIDE (BEAKER) (test 114 meq/L 98-107 dexy=851) CO2 (BEAKER) (test 16 meq/L 22-29 dhap=482) BLOOD UREA NITROGEN 14 mg/dL 7-21 (BEAKER) (test jshr=737) CREATININE (BEAKER) (test 0.85 mg/dL 0.57-1.25 bgpz=318) GLUCOSE RANDOM (BEAKER) 83 mg/dL 70-105 (test svys=696) CALCIUM (BEAKER) (test 7.9 mg/dL 8.4-10.2 xhjq=941) EGFR (BEAKER) (test 88 mL/min/1.73 sq m ESTIMATED GFR IS NOT made=0880) ACCURATE CREATININE CLEARANCE IN PREDICTING GLOMERULAR FILTRATION RATE. ESTIMATED GFR IS NOT APPLICABLE FOR DIALYSIS PATIENTS. [id number] 06:05:00 Test Item Value Reference Range Comments MAGNESIUM (BEAKER) (test nhjz=205) 1.9 mg/dL 1.6-2.6 CBC W/PLT COUNT & AUTO [id number] 05:32:00 Test Item Value Reference Range Comments WHITE BLOOD CELL COUNT (BEAKER) (test qgmd=880) 8.9 K/ L 3.5-10.5 RED BLOOD CELL COUNT (BEAKER) (test fity=587) 4.06 M/ L 4.63-6.08 HEMOGLOBIN (BEAKER) (test vtdy=793) 10.9 GM/DL 13.7-17.5 HEMATOCRIT (BEAKER) (test klph=184) 37.1 % 40.1-51.0 MEAN CORPUSCULAR VOLUME (BEAKER) (test zhqt=873) 91.4 fL 79.0-92.2 MEAN CORPUSCULAR HEMOGLOBIN (BEAKER) (test 26.8 pg 25.7-32.2 iqjp=508) MEAN CORPUSCULAR HEMOGLOBIN CONC (BEAKER) (test 29.4 GM/DL 32.3-36.5 pjox=728) RED CELL DISTRIBUTION WIDTH (BEAKER) (test 19.6 % 11.6-14.4 ricq=660) PLATELET COUNT (BEAKER) (test djkd=581) 392 K/CU MM 150-450 MEAN PLATELET VOLUME (BEAKER) (test fcvg=339) 10.1 fL 9.4-12.4 NUCLEATED RED BLOOD CELLS (BEAKER) (test 0 /100 WBC 0-0 jizw=589) NEUTROPHILS RELATIVE PERCENT (BEAKER) (test 70 % jpgs=945) LYMPHOCYTES RELATIVE PERCENT (BEAKER) (test 18 % vrrx=861) MONOCYTES RELATIVE PERCENT (BEAKER) (test 8 % tvzt=460) EOSINOPHILS RELATIVE PERCENT (BEAKER) (test 4 % lqdb=477) BASOPHILS RELATIVE PERCENT (BEAKER) (test 1 % jcrn=423) NEUTROPHILS ABSOLUTE COUNT (BEAKER) (test 6.20 K/ L 1.78-5.38 ioap=226) LYMPHOCYTES ABSOLUTE COUNT (BEAKER) (test 1.62 K/ L 1.32-3.57 zgsh=905) MONOCYTES ABSOLUTE COUNT (BEAKER) (test 0.70 K/ L 0.30-0.82 jabb=585) EOSINOPHILS ABSOLUTE COUNT (BEAKER) (test 0.31 K/ L 0.04-0.54 yibr=513) BASOPHILS ABSOLUTE COUNT (BEAKER) (test 0.06 K/ L 0.01-0.08 swnn=124) IMMATURE GRANULOCYTES-RELATIVE PERCENT (BEAKER) 0 % 0-1 (test jkjf=4640) POCT-GLUCOSE [id number] 20:45:00 Test Item Value Reference Range Comments POC-GLUCOSE METER (BEAKER) 158 mg/dL 70-110 TESTED AT [address] (test huec=3201) [place] [address] POCT-GLUCOSE [id number] 17:10:00 Test Item Value Reference Range Comments POC-GLUCOSE METER (BEAKER) 149 mg/dL 70-110 TESTED AT [address] (test hssz=8333) [place] [address] FUNGUS CULTURE + [id number] 16:32:00 Test Item Value Reference Range Comments CULTURE (BEAKER) (test No fungus isolated in 28 days nnlo=8864) FUNGUS SMEAR (BEAKER) (test No fungi seen ufoz=3303) FUNGUS CULTURE + [id number] 16:32:00 Test Item Value Reference Range Comments CULTURE (BEAKER) (test No fungus isolated in 28 days esrj=2019) FUNGUS SMEAR (BEAKER) (test No fungi seen hrau=0140) POCT-GLUCOSE [id number] 11:59:00 Test Item Value Reference Range Comments POC-GLUCOSE METER (BEAKER) 135 mg/dL 70-110 TESTED AT [address] (test rszb=0070) [place] [address] POCT-GLUCOSE [id number] 08:05:00 Test Item Value Reference Range Comments POC-GLUCOSE METER (BEAKER) 167 mg/dL 70-110 TESTED AT [address] (test hbgy=4850) [place] [address] BASIC METABOLIC [id number] 07:11:00 Test Item Value Reference Range Comments SODIUM (BEAKER) (test 139 meq/L 136-145 fvur=450) POTASSIUM (BEAKER) (test 3.7 meq/L 3.5-5.1 wkcy=384) CHLORIDE (BEAKER) (test 116 meq/L 98-107 xeye=103) CO2 (BEAKER) (test 18 meq/L 22-29 rmoa=798) BLOOD UREA NITROGEN 14 mg/dL 7-21 (BEAKER) (test qhnz=672) CREATININE (BEAKER) (test 0.84 mg/dL 0.57-1.25 bhis=663) GLUCOSE RANDOM (BEAKER) 95 mg/dL 70-105 (test tmgw=151) CALCIUM (BEAKER) (test 7.7 mg/dL 8.4-10.2 fntj=400) EGFR (BEAKER) (test 89 mL/min/1.73 sq m ESTIMATED GFR IS NOT wcjz=1362) ACCURATE CREATININE CLEARANCE IN PREDICTING GLOMERULAR FILTRATION RATE. ESTIMATED GFR IS NOT APPLICABLE FOR DIALYSIS PATIENTS. [id number] 07:08:00 Test Item Value Reference Range Comments MAGNESIUM (BEAKER) (test hupj=759) 1.6 mg/dL 1.6-2.6 POCT-GLUCOSE [id number] 21:06:00 Test Item Value Reference Range Comments POC-GLUCOSE METER (BEAKER) 166 mg/dL 70-110 TESTED AT [address] (test imcf=8674) [place] [id number] POCT-GLUCOSE [id number] 17:25:00 Test Item Value Reference Range Comments POC-GLUCOSE METER (BEAKER) 149 mg/dL 70-110 TESTED AT [address] (test aoxe=6375) [place] [address] POCT-GLUCOSE [id number] 12:40:00 Test Item Value Reference Range Comments POC-GLUCOSE METER (BEAKER) 143 mg/dL 70-110 TESTED AT [address] (test ejsj=1404) [place] [address] POCT-GLUCOSE [id number] 08:32:00 Test Item Value Reference Range Comments POC-GLUCOSE METER (BEAKER) 99 mg/dL 70-110 TESTED AT [address] (test zisx=1265) [place] [address] [id number] 07:01:00 Test Item Value Reference Range Comments MAGNESIUM (BEAKER) (test 1.5 mg/dL 1.6-2.6 Specimen slightly hemolyzed zwmk=680) BASIC METABOLIC [id number] 05:59:00 Test Item Value Reference Range Comments SODIUM (BEAKER) (test 140 meq/L 136-145 mptl=429) POTASSIUM (BEAKER) (test 3.9 meq/L 3.5-5.1 Specimen slightly ajwd=518) hemolyzed CHLORIDE (BEAKER) (test 117 meq/L 98-107 pvzw=428) CO2 (BEAKER) (test 15 meq/L 22-29 rsoq=176) BLOOD UREA NITROGEN 15 mg/dL 7-21 (BEAKER) (test bcih=038) CREATININE (BEAKER) (test 0.81 mg/dL 0.57-1.25 Specimen slightly bezu=485) hemolyzed GLUCOSE RANDOM (BEAKER) 95 mg/dL 70-105 (test vicx=993) CALCIUM (BEAKER) (test 7.6 mg/dL 8.4-10.2 gyop=463) EGFR (BEAKER) (test 93 mL/min/1.73 sq m ESTIMATED GFR IS NOT bltv=4690) ACCURATE CREATININE CLEARANCE IN PREDICTING GLOMERULAR FILTRATION RATE. ESTIMATED GFR IS NOT APPLICABLE FOR DIALYSIS PATIENTS. CBC W/PLT COUNT & AUTO [id number] 05:12:00 Test Item Value Reference Range Comments WHITE BLOOD CELL COUNT (BEAKER) (test gnsk=756) 8.1 K/ L 3.5-10.5 RED BLOOD CELL COUNT (BEAKER) (test ajbj=924) 3.27 M/ L 4.63-6.08 HEMOGLOBIN (BEAKER) (test zijf=626) 8.8 GM/DL 13.7-17.5 HEMATOCRIT (BEAKER) (test jkde=219) 30.6 % 40.1-51.0 MEAN CORPUSCULAR VOLUME (BEAKER) (test uvyl=146) 93.6 fL 79.0-92.2 MEAN CORPUSCULAR HEMOGLOBIN (BEAKER) (test 26.9 pg 25.7-32.2 uybf=091) MEAN CORPUSCULAR HEMOGLOBIN CONC (BEAKER) (test 28.8 GM/DL 32.3-36.5 iaqn=045) RED CELL DISTRIBUTION WIDTH (BEAKER) (test 19.8 % 11.6-14.4 bkdn=846) PLATELET COUNT (BEAKER) (test pfsq=374) 370 K/CU MM 150-450 MEAN PLATELET VOLUME (BEAKER) (test kjtr=997) 10.5 fL 9.4-12.4 NUCLEATED RED BLOOD CELLS (BEAKER) (test 0 /100 WBC 0-0 olgy=166) NEUTROPHILS RELATIVE PERCENT (BEAKER) (test 67 % amzz=348) LYMPHOCYTES RELATIVE PERCENT (BEAKER) (test 19 % fnpq=640) MONOCYTES RELATIVE PERCENT (BEAKER) (test 9 % hxlp=227) EOSINOPHILS RELATIVE PERCENT (BEAKER) (test 4 % rmoi=740) BASOPHILS RELATIVE PERCENT (BEAKER) (test 1 % otla=881) NEUTROPHILS ABSOLUTE COUNT (BEAKER) (test 5.46 K/ L 1.78-5.38 vukz=458) LYMPHOCYTES ABSOLUTE COUNT (BEAKER) (test 1.51 K/ L 1.32-3.57 yeik=132) MONOCYTES ABSOLUTE COUNT (BEAKER) (test 0.72 K/ L 0.30-0.82 dfkt=898) EOSINOPHILS ABSOLUTE COUNT (BEAKER) (test 0.32 K/ L 0.04-0.54 csjq=060) BASOPHILS ABSOLUTE COUNT (BEAKER) (test 0.07 K/ L 0.01-0.08 ccbh=950) IMMATURE GRANULOCYTES-RELATIVE PERCENT (BEAKER) 1 % 0-1 (test mhnh=1400) POCT-GLUCOSE [id number] 21:38:00 Test Item Value Reference Range Comments POC-GLUCOSE METER (BEAKER) 119 mg/dL 70-110 TESTED AT [address] (test wdno=3192) [facility] [address] POCT-GLUCOSE [id number] 17:02:00 Test Item Value Reference Range Comments POC-GLUCOSE METER (BEAKER) 150 mg/dL 70-110 TESTED AT [address] (test biys=1665) [facility] [address] POCT-GLUCOSE [id number] 12:18:00 Test Item Value Reference Range Comments POC-GLUCOSE METER (BEAKER) 143 mg/dL 70-110 TESTED AT [address] (test vbxk=9791) [facility] [address] POCT-GLUCOSE [id number] 10:33:00 Test Item Value Reference Range Comments POC-GLUCOSE METER (BEAKER) 184 mg/dL 70-110 TESTED AT [address] (test dzrn=6752) [facility] [address] POCT-GLUCOSE [id number] 21:23:00 Test Item Value Reference Range Comments POC-GLUCOSE METER (BEAKER) 130 mg/dL 70-110 TESTED AT [address] (test eytb=4335) [facility] [address] POCT-GLUCOSE [id number] 17:48:00 Test Item Value Reference Range Comments POC-GLUCOSE METER (BEAKER) 117 mg/dL 70-110 TESTED AT [address] (test vmkh=7593) [facility] [address] POCT-GLUCOSE [id number] 13:20:00 Test Item Value Reference Range Comments POC-GLUCOSE METER (BEAKER) 118 mg/dL 70-110 TESTED AT [address] (test cuco=0038) [facility] [address] POCT-GLUCOSE [id number] 08:15:00 Test Item Value Reference Range Comments POC-GLUCOSE METER (BEAKER) 102 mg/dL 70-110 TESTED AT [address] (test ddym=4809) [facility] [address] BASIC METABOLIC [id number] 05:42:00 Test Item Value Reference Range Comments SODIUM (BEAKER) (test 139 meq/L 136-145 icyr=214) POTASSIUM (BEAKER) (test 4.2 meq/L 3.5-5.1 tqii=748) CHLORIDE (BEAKER) (test 114 meq/L 98-107 seul=114) CO2 (BEAKER) (test 17 meq/L 22-29 gfyr=782) BLOOD UREA NITROGEN 17 mg/dL 7-21 (BEAKER) (test ihbx=435) CREATININE (BEAKER) (test 0.90 mg/dL 0.57-1.25 vwys=438) GLUCOSE RANDOM (BEAKER) 91 mg/dL 70-105 (test kklf=721) CALCIUM (BEAKER) (test 7.9 mg/dL 8.4-10.2 icqf=094) EGFR (BEAKER) (test 82 mL/min/1.73 sq m ESTIMATED GFR IS NOT rxbm=0949) ACCURATE CREATININE CLEARANCE IN PREDICTING GLOMERULAR FILTRATION RATE. ESTIMATED GFR IS NOT APPLICABLE FOR DIALYSIS PATIENTS. CBC W/PLT COUNT & AUTO [id number] 04:58:00 Test Item Value Reference Range Comments WHITE BLOOD CELL COUNT (BEAKER) (test wten=326) 8.2 K/ L 3.5-10.5 RED BLOOD CELL COUNT (BEAKER) (test hdhs=616) 3.31 M/ L 4.63-6.08 HEMOGLOBIN (BEAKER) (test udac=550) 9.1 GM/DL 13.7-17.5 HEMATOCRIT (BEAKER) (test jxpy=492) 30.7 % 40.1-51.0 MEAN CORPUSCULAR VOLUME (BEAKER) (test nkzi=059) 92.7 fL 79.0-92.2 MEAN CORPUSCULAR HEMOGLOBIN (BEAKER) (test 27.5 pg 25.7-32.2 goqk=881) MEAN CORPUSCULAR HEMOGLOBIN CONC (BEAKER) (test 29.6 GM/DL 32.3-36.5 zfji=826) RED CELL DISTRIBUTION WIDTH (BEAKER) (test 19.5 % 11.6-14.4 ydms=058) PLATELET COUNT (BEAKER) (test snyl=752) 384 K/CU MM 150-450 MEAN PLATELET VOLUME (BEAKER) (test aclu=831) 10.2 fL 9.4-12.4 NUCLEATED RED BLOOD CELLS (BEAKER) (test 0 /100 WBC 0-0 xxjd=824) NEUTROPHILS RELATIVE PERCENT (BEAKER) (test 69 % cyyt=118) LYMPHOCYTES RELATIVE PERCENT (BEAKER) (test 19 % yjnf=765) MONOCYTES RELATIVE PERCENT (BEAKER) (test 8 % tjbk=526) EOSINOPHILS RELATIVE PERCENT (BEAKER) (test 4 % mguu=570) BASOPHILS RELATIVE PERCENT (BEAKER) (test 1 % wesg=447) NEUTROPHILS ABSOLUTE COUNT (BEAKER) (test 5.61 K/ L 1.78-5.38 bokf=877) LYMPHOCYTES ABSOLUTE COUNT (BEAKER) (test 1.52 K/ L 1.32-3.57 yhzz=962) MONOCYTES ABSOLUTE COUNT (BEAKER) (test 0.62 K/ L 0.30-0.82 fxcc=161) EOSINOPHILS ABSOLUTE COUNT (BEAKER) (test 0.31 K/ L 0.04-0.54 daoq=245) BASOPHILS ABSOLUTE COUNT (BEAKER) (test 0.04 K/ L 0.01-0.08 bapk=169) IMMATURE GRANULOCYTES-RELATIVE PERCENT (BEAKER) 1 % 0-1 (test awvr=0357) POCT-GLUCOSE [id number] 20:56:00 Test Item Value Reference Range Comments POC-GLUCOSE METER (BEAKER) 106 mg/dL 70-110 TESTED AT [address] (test uowt=1479) [facility] [address] POCT-GLUCOSE [id number] 16:55:00 Test Item Value Reference Range Comments POC-GLUCOSE METER (BEAKER) 106 mg/dL 70-110 TESTED AT [address] (test oxba=9526) [facility] [address] POCT-GLUCOSE [id number] 12:19:00 Test Item Value Reference Range Comments POC-GLUCOSE METER (BEAKER) 121 mg/dL 70-110 TESTED AT [address] (test iqkt=8676) [place] [address] POCT-GLUCOSE [id number] 07:51:00 Test Item Value Reference Range Comments POC-GLUCOSE METER (BEAKER) 190 mg/dL 70-110 TESTED AT [address] (test ngqg=7047) [place] [id number] POCT-GLUCOSE [id number] 21:29:00 Test Item Value Reference Range Comments POC-GLUCOSE METER (BEAKER) 117 mg/dL 70-110 TESTED AT [address] (test ytav=4675) [facility] [address] POCT-GLUCOSE [id number] 17:29:00 Test Item Value Reference Range Comments POC-GLUCOSE METER (BEAKER) 123 mg/dL 70-110 TESTED AT [address] (test uujp=9279) [facility] [address] POCT-GLUCOSE [id number] 07:09:00 Test Item Value Reference Range Comments POC-GLUCOSE METER (BEAKER) 96 mg/dL 70-110 TESTED AT [address] (test hakd=4518) [facility] [address] BASIC METABOLIC [id number] 06:48:00 Test Item Value Reference Range Comments SODIUM (BEAKER) (test 139 meq/L 136-145 vjez=147) POTASSIUM (BEAKER) (test 4.2 meq/L 3.5-5.1 mvhg=736) CHLORIDE (BEAKER) (test 114 meq/L 98-107 mdhj=943) CO2 (BEAKER) (test 17 meq/L 22-29 lrdl=641) BLOOD UREA NITROGEN 18 mg/dL 7-21 (BEAKER) (test wecw=138) CREATININE (BEAKER) (test 0.97 mg/dL 0.57-1.25 blzn=038) GLUCOSE RANDOM (BEAKER) 94 mg/dL 70-105 (test tqft=163) CALCIUM (BEAKER) (test 8.3 mg/dL 8.4-10.2 togl=058) EGFR (BEAKER) (test 76 mL/min/1.73 sq m ESTIMATED GFR IS NOT dqrc=7584) ACCURATE CREATININE CLEARANCE IN PREDICTING GLOMERULAR FILTRATION RATE. ESTIMATED GFR IS NOT APPLICABLE FOR DIALYSIS PATIENTS. CBC W/PLT COUNT & AUTO [id number] 05:36:00 Test Item Value Reference Range Comments WHITE BLOOD CELL COUNT (BEAKER) (test qpfj=137) 8.0 K/ L 3.5-10.5 RED BLOOD CELL COUNT (BEAKER) (test bcae=673) 3.32 M/ L 4.63-6.08 HEMOGLOBIN (BEAKER) (test dljs=869) 9.1 GM/DL 13.7-17.5 HEMATOCRIT (BEAKER) (test nzug=188) 31.1 % 40.1-51.0 MEAN CORPUSCULAR VOLUME (BEAKER) (test uqhf=184) 93.7 fL 79.0-92.2 MEAN CORPUSCULAR HEMOGLOBIN (BEAKER) (test 27.4 pg 25.7-32.2 yhdm=933) MEAN CORPUSCULAR HEMOGLOBIN CONC (BEAKER) (test 29.3 GM/DL 32.3-36.5 neoj=112) RED CELL DISTRIBUTION WIDTH (BEAKER) (test 19.7 % 11.6-14.4 kyme=106) PLATELET COUNT (BEAKER) (test uidl=913) 361 K/CU MM 150-450 MEAN PLATELET VOLUME (BEAKER) (test owwy=201) 10.1 fL 9.4-12.4 NUCLEATED RED BLOOD CELLS (BEAKER) (test 0 /100 WBC 0-0 obiw=333) NEUTROPHILS RELATIVE PERCENT (BEAKER) (test 66 % whhd=192) LYMPHOCYTES RELATIVE PERCENT (BEAKER) (test 20 % dxrj=360) MONOCYTES RELATIVE PERCENT (BEAKER) (test 8 % ixpq=116) EOSINOPHILS RELATIVE PERCENT (BEAKER) (test 5 % mfpg=916) BASOPHILS RELATIVE PERCENT (BEAKER) (test 1 % pgee=909) NEUTROPHILS ABSOLUTE COUNT (BEAKER) (test 5.27 K/ L 1.78-5.38 bojq=651) LYMPHOCYTES ABSOLUTE COUNT (BEAKER) (test 1.62 K/ L 1.32-3.57 gytn=929) MONOCYTES ABSOLUTE COUNT (BEAKER) (test 0.61 K/ L 0.30-0.82 wvar=936) EOSINOPHILS ABSOLUTE COUNT (BEAKER) (test 0.42 K/ L 0.04-0.54 ezhn=707) BASOPHILS ABSOLUTE COUNT (BEAKER) (test 0.05 K/ L 0.01-0.08 zdsl=553) IMMATURE GRANULOCYTES-RELATIVE PERCENT (BEAKER) 1 % 0-1 (test ydui=4545) POCT-GLUCOSE [id number] 21:28:00 Test Item Value Reference Range Comments POC-GLUCOSE METER (BEAKER) 119 mg/dL 70-110 TESTED AT [address] (test wnfe=6708) [facility] [address] POCT-GLUCOSE [id number] 17:30:00 Test Item Value Reference Range Comments POC-GLUCOSE METER (BEAKER) 119 mg/dL 70-110 TESTED AT [address] (test oqnd=9145) [facility] [address] POCT-GLUCOSE [id number] 12:16:00 Test Item Value Reference Range Comments POC-GLUCOSE METER (BEAKER) 172 mg/dL 70-110 TESTED AT [address] (test ftzk=1898) [facility] [address] POCT-GLUCOSE [id number] 08:15:00 Test Item Value Reference Range Comments POC-GLUCOSE METER (BEAKER) 118 mg/dL 70-110 TESTED AT [address] (test nvhk=5985) [facility] [address] POCT-GLUCOSE [id number] 20:56:00 Test Item Value Reference Range Comments POC-GLUCOSE METER (BEAKER) 171 mg/dL 70-110 TESTED AT [address] (test lybi=3482) [facility] [address] POCT-GLUCOSE [id number] 16:52:00 Test Item Value Reference Range Comments POC-GLUCOSE METER (BEAKER) 130 mg/dL 70-110 TESTED AT [facility] [address] [facility] (test cnha=6677) [facility] [address] POCT-GLUCOSE [id number] 12:59:00 Test Item Value Reference Range Comments POC-GLUCOSE METER (BEAKER) 124 mg/dL 70-110 TESTED AT [address] (test wfog=5468) [place] [id number] POCT-GLUCOSE [id number] 07:37:00 Test Item Value Reference Range Comments POC-GLUCOSE METER (BEAKER) 95 mg/dL 70-110 TESTED AT [address] (test lntl=3436) [facility] [address] BASIC METABOLIC [id number] 05:54:00 Test Item Value Reference Range Comments SODIUM (BEAKER) (test 140 meq/L 136-145 rfxj=352) POTASSIUM (BEAKER) (test 4.4 meq/L 3.5-5.1 frlm=159) CHLORIDE (BEAKER) (test 116 meq/L 98-107 vedg=263) CO2 (BEAKER) (test 17 meq/L 22-29 gkwx=782) BLOOD UREA NITROGEN 16 mg/dL 7-21 (BEAKER) (test ieot=318) CREATININE (BEAKER) (test 1.01 mg/dL 0.57-1.25 uyut=173) GLUCOSE RANDOM (BEAKER) 98 mg/dL 70-105 (test qxlb=313) CALCIUM (BEAKER) (test 8.3 mg/dL 8.4-10.2 agky=557) EGFR (BEAKER) (test 72 mL/min/1.73 sq m ESTIMATED GFR IS NOT eoxy=8481) ACCURATE CREATININE CLEARANCE IN PREDICTING GLOMERULAR FILTRATION RATE. ESTIMATED GFR IS NOT APPLICABLE FOR DIALYSIS PATIENTS. CBC W/PLT COUNT & AUTO [id number] 05:33:00 Test Item Value Reference Range Comments WHITE BLOOD CELL COUNT (BEAKER) (test lbkm=820) 8.8 K/ L 3.5-10.5 RED BLOOD CELL COUNT (BEAKER) (test ijty=990) 3.34 M/ L 4.63-6.08 HEMOGLOBIN (BEAKER) (test sjdv=521) 9.2 GM/DL 13.7-17.5 HEMATOCRIT (BEAKER) (test kdtk=374) 31.9 % 40.1-51.0 MEAN CORPUSCULAR VOLUME (BEAKER) (test vdan=420) 95.5 fL 79.0-92.2 MEAN CORPUSCULAR HEMOGLOBIN (BEAKER) (test 27.5 pg 25.7-32.2 nopn=537) MEAN CORPUSCULAR HEMOGLOBIN CONC (BEAKER) (test 28.8 GM/DL 32.3-36.5 nlgf=233) RED CELL DISTRIBUTION WIDTH (BEAKER) (test 19.8 % 11.6-14.4 hwcn=279) PLATELET COUNT (BEAKER) (test expx=746) 375 K/CU MM 150-450 MEAN PLATELET VOLUME (BEAKER) (test obid=262) 9.9 fL 9.4-12.4 NUCLEATED RED BLOOD CELLS (BEAKER) (test 0 /100 WBC 0-0 sqro=759) NEUTROPHILS RELATIVE PERCENT (BEAKER) (test 69 % gbww=054) LYMPHOCYTES RELATIVE PERCENT (BEAKER) (test 17 % wzvu=339) MONOCYTES RELATIVE PERCENT (BEAKER) (test 8 % wuvu=877) EOSINOPHILS RELATIVE PERCENT (BEAKER) (test 5 % artj=322) BASOPHILS RELATIVE PERCENT (BEAKER) (test 1 % zmre=557) NEUTROPHILS ABSOLUTE COUNT (BEAKER) (test 6.05 K/ L 1.78-5.38 tzhf=027) LYMPHOCYTES ABSOLUTE COUNT (BEAKER) (test 1.53 K/ L 1.32-3.57 biyq=864) MONOCYTES ABSOLUTE COUNT (BEAKER) (test 0.73 K/ L 0.30-0.82 etgk=623) EOSINOPHILS ABSOLUTE COUNT (BEAKER) (test 0.40 K/ L 0.04-0.54 xxzz=799) BASOPHILS ABSOLUTE COUNT (BEAKER) (test 0.05 K/ L 0.01-0.08 noqz=766) IMMATURE GRANULOCYTES-RELATIVE PERCENT (BEAKER) 1 % 0-1 (test ophf=1700) POCT-GLUCOSE [id number] 21:13:00 Test Item Value Reference Range Comments POC-GLUCOSE METER (BEAKER) 159 mg/dL 70-110 TESTED AT [facility] [address] [facility] [facility] (test ujiz=8194) [facility] [address] POCT-GLUCOSE [id number] 17:08:00 Test Item Value Reference Range Comments POC-GLUCOSE METER (BEAKER) 150 mg/dL 70-110 TESTED AT [address] (test edgn=5829) [facility] [address] POCT-GLUCOSE [id number] 12:03:00 Test Item Value Reference Range Comments POC-GLUCOSE METER (BEAKER) 163 mg/dL 70-110 TESTED AT [address] (test fzlt=6002) [facility] [address] POCT-GLUCOSE [id number] 08:07:00 Test Item Value Reference Range Comments POC-GLUCOSE METER (BEAKER) 114 mg/dL 70-110 TESTED AT [address] (test imnq=9746) [place] [id number] POCT-GLUCOSE [id number] 01:27:00 Test Item Value Reference Range Comments POC-GLUCOSE METER (BEAKER) 116 mg/dL 70-110 TESTED AT [address] (test emnt=3871) [place] [address] POCT-GLUCOSE [id number] 19:42:00 Test Item Value Reference Range Comments POC-GLUCOSE METER (BEAKER) 119 mg/dL 70-110 TESTED AT [address] (test xrwa=5170) [place] [id number] POCT-GLUCOSE [id number] 12:22:00 Test Item Value Reference Range Comments POC-GLUCOSE METER (BEAKER) 130 mg/dL 70-110 TESTED AT [address] (test svra=0268) [place] [id number] POCT-GLUCOSE [id number] 07:40:00 Test Item Value Reference Range Comments POC-GLUCOSE METER (BEAKER) 132 mg/dL 70-110 TESTED AT [address] (test tehj=1224) [facility] [address] BASIC METABOLIC [id number] 05:37:00 Test Item Value Reference Range Comments SODIUM (BEAKER) (test 136 meq/L 136-145 iogn=936) POTASSIUM (BEAKER) (test 4.2 meq/L 3.5-5.1 slqu=083) CHLORIDE (BEAKER) (test 111 meq/L 98-107 cjpn=413) CO2 (BEAKER) (test 18 meq/L 22-29 kerz=046) BLOOD UREA NITROGEN 21 mg/dL 7-21 (BEAKER) (test apvg=450) CREATININE (BEAKER) (test 0.90 mg/dL 0.57-1.25 fsit=067) GLUCOSE RANDOM (BEAKER) 102 mg/dL 70-105 (test xdqs=551) CALCIUM (BEAKER) (test 7.8 mg/dL 8.4-10.2 eyga=230) EGFR (BEAKER) (test 82 mL/min/1.73 sq m ESTIMATED GFR IS NOT csan=3020) ACCURATE CREATININE CLEARANCE IN PREDICTING GLOMERULAR FILTRATION RATE. ESTIMATED GFR IS NOT APPLICABLE FOR DIALYSIS PATIENTS. CBC W/PLT COUNT & AUTO [id number] 05:03:00 Test Item Value Reference Range Comments WHITE BLOOD CELL COUNT (BEAKER) (test cpst=335) 9.7 K/ L 3.5-10.5 RED BLOOD CELL COUNT (BEAKER) (test tybl=582) 3.04 M/ L 4.63-6.08 HEMOGLOBIN (BEAKER) (test loxy=338) 8.3 GM/DL 13.7-17.5 HEMATOCRIT (BEAKER) (test qcgd=378) 28.9 % 40.1-51.0 MEAN CORPUSCULAR VOLUME (BEAKER) (test izgd=848) 95.1 fL 79.0-92.2 MEAN CORPUSCULAR HEMOGLOBIN (BEAKER) (test 27.3 pg 25.7-32.2 fuem=879) MEAN CORPUSCULAR HEMOGLOBIN CONC (BEAKER) (test 28.7 GM/DL 32.3-36.5 gowb=083) RED CELL DISTRIBUTION WIDTH (BEAKER) (test 19.7 % 11.6-14.4 ddfb=586) PLATELET COUNT (BEAKER) (test exsu=618) 356 K/CU MM 150-450 MEAN PLATELET VOLUME (BEAKER) (test lqyi=822) 10.4 fL 9.4-12.4 NUCLEATED RED BLOOD CELLS (BEAKER) (test 0 /100 WBC 0-0 uwbr=761) NEUTROPHILS RELATIVE PERCENT (BEAKER) (test 72 % ibgj=260) LYMPHOCYTES RELATIVE PERCENT (BEAKER) (test 15 % piaa=000) MONOCYTES RELATIVE PERCENT (BEAKER) (test 7 % uhvw=158) EOSINOPHILS RELATIVE PERCENT (BEAKER) (test 5 % wplm=142) BASOPHILS RELATIVE PERCENT (BEAKER) (test 1 % prkh=167) NEUTROPHILS ABSOLUTE COUNT (BEAKER) (test 6.97 K/ L 1.78-5.38 mqge=352) LYMPHOCYTES ABSOLUTE COUNT (BEAKER) (test 1.48 K/ L 1.32-3.57 qbwv=457) MONOCYTES ABSOLUTE COUNT (BEAKER) (test 0.69 K/ L 0.30-0.82 subn=387) EOSINOPHILS ABSOLUTE COUNT (BEAKER) (test 0.44 K/ L 0.04-0.54 krwq=304) BASOPHILS ABSOLUTE COUNT (BEAKER) (test 0.05 K/ L 0.01-0.08 mtxx=118) IMMATURE GRANULOCYTES-RELATIVE PERCENT (BEAKER) 1 % 0-1 (test tbcf=5945) POCT-GLUCOSE [id number] 21:34:00 Test Item Value Reference Range Comments POC-GLUCOSE METER (BEAKER) 141 mg/dL 70-110 TESTED AT [address] (test csen=0642) [place] [address] POCT-GLUCOSE [id number] 18:21:00 Test Item Value Reference Range Comments POC-GLUCOSE METER (BEAKER) 131 mg/dL 70-110 TESTED AT [address] (test lfaf=1019) [place] [address] POCT-GLUCOSE [id number] 12:54:00 Test Item Value Reference Range Comments POC-GLUCOSE METER (BEAKER) 139 mg/dL 70-110 TESTED AT [address] (test adze=3572) [place] [id number] POCT-GLUCOSE [id number] 08:41:00 Test Item Value Reference Range Comments POC-GLUCOSE METER (BEAKER) 132 mg/dL 70-110 TESTED AT [address] (test nhmu=2320) [place] [id number] BASIC METABOLIC [id number] 05:44:00 Test Item Value Reference Range Comments SODIUM (BEAKER) (test 137 meq/L 136-145 xlsg=671) POTASSIUM (BEAKER) (test 3.9 meq/L 3.5-5.1 mcxk=043) CHLORIDE (BEAKER) (test 111 meq/L 98-107 xuuk=531) CO2 (BEAKER) (test 17 meq/L 22-29 vwul=589) BLOOD UREA NITROGEN 21 mg/dL 7-21 (BEAKER) (test pmaz=698) CREATININE (BEAKER) (test 1.01 mg/dL 0.57-1.25 oldj=863) GLUCOSE RANDOM (BEAKER) 136 mg/dL 70-105 (test jbfh=029) CALCIUM (BEAKER) (test 7.6 mg/dL 8.4-10.2 juqw=297) EGFR (BEAKER) (test 72 mL/min/1.73 sq m ESTIMATED GFR IS NOT vmqx=1663) ACCURATE CREATININE CLEARANCE IN PREDICTING GLOMERULAR FILTRATION RATE. ESTIMATED GFR IS NOT APPLICABLE FOR DIALYSIS PATIENTS. CBC W/PLT COUNT & AUTO [id number] 04:59:00 Test Item Value Reference Range Comments WHITE BLOOD CELL COUNT (BEAKER) (test dgeu=262) 9.8 K/ L 3.5-10.5 RED BLOOD CELL COUNT (BEAKER) (test mjjy=031) 3.06 M/ L 4.63-6.08 HEMOGLOBIN (BEAKER) (test czzr=310) 8.5 GM/DL 13.7-17.5 HEMATOCRIT (BEAKER) (test cqxa=558) 29.4 % 40.1-51.0 MEAN CORPUSCULAR VOLUME (BEAKER) (test fhrw=638) 96.1 fL 79.0-92.2 MEAN CORPUSCULAR HEMOGLOBIN (BEAKER) (test 27.8 pg 25.7-32.2 pral=868) MEAN CORPUSCULAR HEMOGLOBIN CONC (BEAKER) (test 28.9 GM/DL 32.3-36.5 unfd=869) RED CELL DISTRIBUTION WIDTH (BEAKER) (test 19.9 % 11.6-14.4 suvt=279) PLATELET COUNT (BEAKER) (test kyza=195) 357 K/CU MM 150-450 MEAN PLATELET VOLUME (BEAKER) (test ubol=114) 10.1 fL 9.4-12.4 NUCLEATED RED BLOOD CELLS (BEAKER) (test 0 /100 WBC 0-0 guug=394) NEUTROPHILS RELATIVE PERCENT (BEAKER) (test 73 % kaci=512) LYMPHOCYTES RELATIVE PERCENT (BEAKER) (test 13 % ntac=887) MONOCYTES RELATIVE PERCENT (BEAKER) (test 7 % psrt=231) EOSINOPHILS RELATIVE PERCENT (BEAKER) (test 5 % vsqj=622) BASOPHILS RELATIVE PERCENT (BEAKER) (test 1 % bdch=691) NEUTROPHILS ABSOLUTE COUNT (BEAKER) (test 7.20 K/ L 1.78-5.38 mdbh=872) LYMPHOCYTES ABSOLUTE COUNT (BEAKER) (test 1.28 K/ L 1.32-3.57 iwtz=118) MONOCYTES ABSOLUTE COUNT (BEAKER) (test 0.72 K/ L 0.30-0.82 muoo=118) EOSINOPHILS ABSOLUTE COUNT (BEAKER) (test 0.47 K/ L 0.04-0.54 tmrn=465) BASOPHILS ABSOLUTE COUNT (BEAKER) (test 0.05 K/ L 0.01-0.08 bimz=799) IMMATURE GRANULOCYTES-RELATIVE PERCENT (BEAKER) 1 % 0-1 (test ejqe=0988) POCT-GLUCOSE [id number] 21:21:00 Test Item Value Reference Range Comments POC-GLUCOSE METER (BEAKER) 141 mg/dL 70-110 TESTED AT [address] (test perd=0638) [place] [address] POCT-GLUCOSE [id number] 17:50:00 Test Item Value Reference Range Comments POC-GLUCOSE METER (BEAKER) 142 mg/dL 70-110 TESTED AT [address] (test oqpm=6948) [place] [id number] POCT-GLUCOSE [id number] 12:12:00 Test Item Value Reference Range Comments POC-GLUCOSE METER (BEAKER) 148 mg/dL 70-110 TESTED AT [address] (test jkmk=4845) [facility] [address] HEPATIC FUNCTION [id number] 09:57:00 Test Item Value Reference Range Comments TOTAL PROTEIN (BEAKER) (test jthi=165) 5.7 gm/dL 6.0-8.3 ALBUMIN (BEAKER) (test pnqj=8985) 2.5 g/dL 3.5-5.0 BILIRUBIN TOTAL (BEAKER) (test qdzx=421) 0.4 mg/dL 0.2-1.2 BILIRUBIN DIRECT (BEAKER) (test jbok=431) 0.2 mg/dL 0.1-0.5 ALKALINE PHOSPHATASE (BEAKER) (test dwas=073) 65 U/L 40-150 AST (SGOT) (BEAKER) (test epnr=991) 18 U/L 5-34 ALT (SGPT) (BEAKER) (test esag=989) 11 U/L 6-55 BASIC METABOLIC [id number] 08:36:00 Test Item Value Reference Range Comments SODIUM (BEAKER) (test 139 meq/L 136-145 zhru=539) POTASSIUM (BEAKER) (test 4.1 meq/L 3.5-5.1 msww=115) CHLORIDE (BEAKER) (test 111 meq/L 98-107 joqg=175) CO2 (BEAKER) (test 19 meq/L 22-29 cvfr=134) BLOOD UREA NITROGEN 31 mg/dL 7-21 (BEAKER) (test gbld=699) CREATININE (BEAKER) (test 1.29 mg/dL 0.57-1.25 dpqx=393) GLUCOSE RANDOM (BEAKER) 138 mg/dL 70-105 (test vcyj=381) CALCIUM (BEAKER) (test 7.7 mg/dL 8.4-10.2 xtuh=408) EGFR (BEAKER) (test 54 mL/min/1.73 sq m ESTIMATED GFR IS NOT aczr=6151) ACCURATE CREATININE CLEARANCE IN PREDICTING GLOMERULAR FILTRATION RATE. ESTIMATED GFR IS NOT APPLICABLE FOR DIALYSIS PATIENTS. POCT-GLUCOSE [id number] 08:14:00 Test Item Value Reference Range Comments POC-GLUCOSE METER (BEAKER) 156 mg/dL 70-110 TESTED AT [facility] [address] [facility] [facility] (test qsxv=9157) [facility] [address] CBC W/PLT COUNT & AUTO [id number] 08:14:00 Test Item Value Reference Range Comments WHITE BLOOD CELL COUNT (BEAKER) (test dwin=372) 9.2 K/ L 3.5-10.5 RED BLOOD CELL COUNT (BEAKER) (test nxlq=218) 3.41 M/ L 4.63-6.08 HEMOGLOBIN (BEAKER) (test hbue=700) 9.3 GM/DL 13.7-17.5 HEMATOCRIT (BEAKER) (test atcy=185) 32.5 % 40.1-51.0 MEAN CORPUSCULAR VOLUME (BEAKER) (test jvko=370) 95.3 fL 79.0-92.2 MEAN CORPUSCULAR HEMOGLOBIN (BEAKER) (test 27.3 pg 25.7-32.2 spkd=580) MEAN CORPUSCULAR HEMOGLOBIN CONC (BEAKER) (test 28.6 GM/DL 32.3-36.5 kgbz=633) RED CELL DISTRIBUTION WIDTH (BEAKER) (test 20.0 % 11.6-14.4 pxad=088) PLATELET COUNT (BEAKER) (test anhg=395) 387 K/CU MM 150-450 MEAN PLATELET VOLUME (BEAKER) (test inod=807) 10.2 fL 9.4-12.4 NUCLEATED RED BLOOD CELLS (BEAKER) (test 0 /100 WBC 0-0 hgmy=217) NEUTROPHILS RELATIVE PERCENT (BEAKER) (test 76 % noja=671) LYMPHOCYTES RELATIVE PERCENT (BEAKER) (test 12 % qjra=031) MONOCYTES RELATIVE PERCENT (BEAKER) (test 9 % ebgq=108) EOSINOPHILS RELATIVE PERCENT (BEAKER) (test 2 % ttgo=173) BASOPHILS RELATIVE PERCENT (BEAKER) (test 1 % hovr=391) NEUTROPHILS ABSOLUTE COUNT (BEAKER) (test 6.98 K/ L 1.78-5.38 ydsn=024) LYMPHOCYTES ABSOLUTE COUNT (BEAKER) (test 1.10 K/ L 1.32-3.57 lhnr=678) MONOCYTES ABSOLUTE COUNT (BEAKER) (test 0.79 K/ L 0.30-0.82 tfwl=458) EOSINOPHILS ABSOLUTE COUNT (BEAKER) (test 0.17 K/ L 0.04-0.54 btwm=637) BASOPHILS ABSOLUTE COUNT (BEAKER) (test 0.06 K/ L 0.01-0.08 mldf=576) IMMATURE GRANULOCYTES-RELATIVE PERCENT (BEAKER) 1 % 0-1 (test ovum=5483) POCT-GLUCOSE [id number] 21:25:00 Test Item Value Reference Range Comments POC-GLUCOSE METER (BEAKER) 144 mg/dL 70-110 TESTED AT [address] (test hxmc=0275) [facility] [address] POCT-GLUCOSE [id number] 17:34:00 Test Item Value Reference Range Comments POC-GLUCOSE METER (BEAKER) 155 mg/dL 70-110 TESTED AT [address] (test agzf=1862) [facility] [address] POCT-GLUCOSE [id number] 11:45:00 Test Item Value Reference Range Comments POC-GLUCOSE METER (BEAKER) 114 mg/dL 70-110 TESTED AT [address] (test ncqd=5355) [facility] [address] POCT-GLUCOSE [id number] 07:56:00 Test Item Value Reference Range Comments POC-GLUCOSE METER (BEAKER) 106 mg/dL 70-110 TESTED AT [facility] [address] (test tnws=8888) [facility] [address] BASIC METABOLIC [id number] 05:58:00 Test Item Value Reference Range Comments SODIUM (BEAKER) (test 137 meq/L 136-145 wtsq=501) POTASSIUM (BEAKER) (test 4.6 meq/L 3.5-5.1 xmtv=473) CHLORIDE (BEAKER) (test 110 meq/L 98-107 htsi=465) CO2 (BEAKER) (test 18 meq/L 22-29 pnya=073) BLOOD UREA NITROGEN 38 mg/dL 7-21 (BEAKER) (test ulyu=568) CREATININE (BEAKER) (test 1.32 mg/dL 0.57-1.25 iasv=239) GLUCOSE RANDOM (BEAKER) 105 mg/dL 70-105 (test yqwj=853) CALCIUM (BEAKER) (test 8.0 mg/dL 8.4-10.2 pwen=021) EGFR (BEAKER) (test 53 mL/min/1.73 sq m ESTIMATED GFR IS NOT kish=0979) ACCURATE CREATININE CLEARANCE IN PREDICTING GLOMERULAR FILTRATION RATE. ESTIMATED GFR IS NOT APPLICABLE FOR DIALYSIS PATIENTS. CBC W/PLT COUNT & AUTO [id number] 05:42:00 Test Item Value Reference Range Comments WHITE BLOOD CELL COUNT (BEAKER) (test lnrv=519) 9.1 K/ L 3.5-10.5 RED BLOOD CELL COUNT (BEAKER) (test lhqc=228) 3.38 M/ L 4.63-6.08 HEMOGLOBIN (BEAKER) (test xaaq=001) 9.2 GM/DL 13.7-17.5 HEMATOCRIT (BEAKER) (test wgdn=821) 31.5 % 40.1-51.0 MEAN CORPUSCULAR VOLUME (BEAKER) (test woll=844) 93.2 fL 79.0-92.2 MEAN CORPUSCULAR HEMOGLOBIN (BEAKER) (test 27.2 pg 25.7-32.2 xkup=042) MEAN CORPUSCULAR HEMOGLOBIN CONC (BEAKER) (test 29.2 GM/DL 32.3-36.5 ltbp=332) RED CELL DISTRIBUTION WIDTH (BEAKER) (test 19.4 % 11.6-14.4 wafd=259) PLATELET COUNT (BEAKER) (test jvai=379) 379 K/CU MM 150-450 MEAN PLATELET VOLUME (BEAKER) (test zmco=642) 9.9 fL 9.4-12.4 NUCLEATED RED BLOOD CELLS (BEAKER) (test 0 /100 WBC 0-0 raqe=012) NEUTROPHILS RELATIVE PERCENT (BEAKER) (test 70 % lueb=880) LYMPHOCYTES RELATIVE PERCENT (BEAKER) (test 18 % wpyv=053) MONOCYTES RELATIVE PERCENT (BEAKER) (test 7 % qbat=071) EOSINOPHILS RELATIVE PERCENT (BEAKER) (test 3 % ustn=991) BASOPHILS RELATIVE PERCENT (BEAKER) (test 1 % nnge=432) NEUTROPHILS ABSOLUTE COUNT (BEAKER) (test 6.33 K/ L 1.78-5.38 rfwf=314) LYMPHOCYTES ABSOLUTE COUNT (BEAKER) (test 1.65 K/ L 1.32-3.57 zcze=659) MONOCYTES ABSOLUTE COUNT (BEAKER) (test 0.66 K/ L 0.30-0.82 jrsn=858) EOSINOPHILS ABSOLUTE COUNT (BEAKER) (test 0.28 K/ L 0.04-0.54 xida=731) BASOPHILS ABSOLUTE COUNT (BEAKER) (test 0.07 K/ L 0.01-0.08 deyp=421) IMMATURE GRANULOCYTES-RELATIVE PERCENT (BEAKER) 1 % 0-1 (test gikw=1683) POCT-GLUCOSE [id number] 21:38:00 Test Item Value Reference Range Comments POC-GLUCOSE METER (BEAKER) 124 mg/dL 70-110 TESTED AT [address] (test tgar=0409) [facility] [id number] POCT-GLUCOSE [id number] 18:26:00 Test Item Value Reference Range Comments POC-GLUCOSE METER (BEAKER) 115 mg/dL 70-110 TESTED AT [address] (test lfzm=9479) [facility] [address] POCT-GLUCOSE [id number] 11:51:00 Test Item Value Reference Range Comments POC-GLUCOSE METER (BEAKER) 148 mg/dL 70-110 TESTED AT [address] (test fvzi=9091) [place] [id number] POCT-GLUCOSE [id number] 08:28:00 Test Item Value Reference Range Comments POC-GLUCOSE METER (BEAKER) 124 mg/dL 70-110 TESTED AT [facility] [address] [facility] (test tcus=3939) [facility] [address] BASIC METABOLIC [id number] 06:52:00 Test Item Value Reference Range Comments SODIUM (BEAKER) (test 138 meq/L 136-145 qzun=462) POTASSIUM (BEAKER) (test 4.4 meq/L 3.5-5.1 apbq=484) CHLORIDE (BEAKER) (test 109 meq/L 98-107 jglz=923) CO2 (BEAKER) (test 21 meq/L 22-29 qafp=395) BLOOD UREA NITROGEN 48 mg/dL 7-21 (BEAKER) (test ltft=371) CREATININE (BEAKER) (test 1.40 mg/dL 0.57-1.25 leqh=153) GLUCOSE RANDOM (BEAKER) 112 mg/dL 70-105 (test xhzj=480) CALCIUM (BEAKER) (test 8.2 mg/dL 8.4-10.2 koyb=465) EGFR (BEAKER) (test 50 mL/min/1.73 sq m ESTIMATED GFR IS NOT wqfq=4882) ACCURATE CREATININE CLEARANCE IN PREDICTING GLOMERULAR FILTRATION RATE. ESTIMATED GFR IS NOT APPLICABLE FOR DIALYSIS PATIENTS. CBC W/PLT COUNT & AUTO [id number] 06:19:00 Test Item Value Reference Range Comments WHITE BLOOD CELL COUNT (BEAKER) (test saku=660) 9.2 K/ L 3.5-10.5 RED BLOOD CELL COUNT (BEAKER) (test doog=274) 3.32 M/ L 4.63-6.08 HEMOGLOBIN (BEAKER) (test ilok=358) 9.2 GM/DL 13.7-17.5 HEMATOCRIT (BEAKER) (test eajk=630) 31.3 % 40.1-51.0 MEAN CORPUSCULAR VOLUME (BEAKER) (test btyr=111) 94.3 fL 79.0-92.2 MEAN CORPUSCULAR HEMOGLOBIN (BEAKER) (test 27.7 pg 25.7-32.2 cxcp=949) MEAN CORPUSCULAR HEMOGLOBIN CONC (BEAKER) (test 29.4 GM/DL 32.3-36.5 defd=169) RED CELL DISTRIBUTION WIDTH (BEAKER) (test 19.5 % 11.6-14.4 vnhg=763) PLATELET COUNT (BEAKER) (test xnot=910) 420 K/CU MM 150-450 MEAN PLATELET VOLUME (BEAKER) (test zxpk=391) 10.1 fL 9.4-12.4 NUCLEATED RED BLOOD CELLS (BEAKER) (test 0 /100 WBC 0-0 gfml=203) NEUTROPHILS RELATIVE PERCENT (BEAKER) (test 68 % tntt=601) LYMPHOCYTES RELATIVE PERCENT (BEAKER) (test 19 % lmzf=615) MONOCYTES RELATIVE PERCENT (BEAKER) (test 9 % dcsq=932) EOSINOPHILS RELATIVE PERCENT (BEAKER) (test 3 % qtkw=754) BASOPHILS RELATIVE PERCENT (BEAKER) (test 1 % wmgp=148) NEUTROPHILS ABSOLUTE COUNT (BEAKER) (test 6.25 K/ L 1.78-5.38 uvee=766) LYMPHOCYTES ABSOLUTE COUNT (BEAKER) (test 1.72 K/ L 1.32-3.57 bmlv=062) MONOCYTES ABSOLUTE COUNT (BEAKER) (test 0.80 K/ L 0.30-0.82 yhkb=712) EOSINOPHILS ABSOLUTE COUNT (BEAKER) (test 0.29 K/ L 0.04-0.54 zqrj=163) BASOPHILS ABSOLUTE COUNT (BEAKER) (test 0.07 K/ L 0.01-0.08 tzfn=490) IMMATURE GRANULOCYTES-RELATIVE PERCENT (BEAKER) 1 % 0-1 (test sbtq=7674) POCT-GLUCOSE [id number] 21:24:00 Test Item Value Reference Range Comments POC-GLUCOSE METER (BEAKER) 153 mg/dL 70-110 TESTED AT [address] (test iwey=4649) [place] [id number] POCT-GLUCOSE [id number] 16:21:00 Test Item Value Reference Range Comments POC-GLUCOSE METER (BEAKER) 177 mg/dL 70-110 TESTED AT [address] (test vyew=9213) [place] [id number] AFB CULTURE + [id number] 12:45:00 Test Item Value Reference Range Comments CULTURE (BEAKER) (test No acid-fast bacilli isolated xema=1894) in 42 days AFB SMEAR (BEAKER) (test No acid fast bacilli seen agfw=715) POCT-GLUCOSE [id number] 12:07:00 Test Item Value Reference Range Comments POC-GLUCOSE METER (BEAKER) 141 mg/dL 70-110 TESTED AT [facility] [address] [facility] (test dfrm=7386) [facility] [address] POCT-GLUCOSE [id number] 07:48:00 Test Item Value Reference Range Comments POC-GLUCOSE METER (BEAKER) 141 mg/dL 70-110 TESTED AT [place] [id number] [facility] (test srvn=5520) [facility] [address] BASIC METABOLIC [id number] 04:55:00 Test Item Value Reference Range Comments SODIUM (BEAKER) (test 137 meq/L 136-145 yunl=898) POTASSIUM (BEAKER) (test 4.5 meq/L 3.5-5.1 vwko=186) CHLORIDE (BEAKER) (test 107 meq/L 98-107 mmlr=510) CO2 (BEAKER) (test 21 meq/L 22-29 qweb=427) BLOOD UREA NITROGEN 47 mg/dL 7-21 (BEAKER) (test ydax=030) CREATININE (BEAKER) (test 1.32 mg/dL 0.57-1.25 ipjc=837) GLUCOSE RANDOM (BEAKER) 111 mg/dL 70-105 (test apoy=741) CALCIUM (BEAKER) (test 8.2 mg/dL 8.4-10.2 efqw=884) EGFR (BEAKER) (test 53 mL/min/1.73 sq m ESTIMATED GFR IS NOT eivi=9232) ACCURATE CREATININE CLEARANCE IN PREDICTING GLOMERULAR FILTRATION RATE. ESTIMATED GFR IS NOT APPLICABLE FOR DIALYSIS PATIENTS. CBC W/PLT COUNT & AUTO [id number] 04:44:00 Test Item Value Reference Range Comments WHITE BLOOD CELL COUNT (BEAKER) (test wumy=086) 9.4 K/ L 3.5-10.5 RED BLOOD CELL COUNT (BEAKER) (test askt=884) 3.36 M/ L 4.63-6.08 HEMOGLOBIN (BEAKER) (test zpub=861) 9.2 GM/DL 13.7-17.5 HEMATOCRIT (BEAKER) (test sxwd=081) 31.4 % 40.1-51.0 MEAN CORPUSCULAR VOLUME (BEAKER) (test fvom=259) 93.5 fL 79.0-92.2 MEAN CORPUSCULAR HEMOGLOBIN (BEAKER) (test 27.4 pg 25.7-32.2 wevw=091) MEAN CORPUSCULAR HEMOGLOBIN CONC (BEAKER) (test 29.3 GM/DL 32.3-36.5 qgrz=775) RED CELL DISTRIBUTION WIDTH (BEAKER) (test 19.6 % 11.6-14.4 glns=499) PLATELET COUNT (BEAKER) (test jcwe=810) 432 K/CU MM 150-450 MEAN PLATELET VOLUME (BEAKER) (test bojs=681) 10.0 fL 9.4-12.4 NUCLEATED RED BLOOD CELLS (BEAKER) (test 0 /100 WBC 0-0 xivv=471) NEUTROPHILS RELATIVE PERCENT (BEAKER) (test 69 % apso=154) LYMPHOCYTES RELATIVE PERCENT (BEAKER) (test 18 % ctey=294) MONOCYTES RELATIVE PERCENT (BEAKER) (test 8 % snqg=571) EOSINOPHILS RELATIVE PERCENT (BEAKER) (test 3 % ubqt=044) BASOPHILS RELATIVE PERCENT (BEAKER) (test 1 % fgea=200) NEUTROPHILS ABSOLUTE COUNT (BEAKER) (test 6.48 K/ L 1.78-5.38 eruy=384) LYMPHOCYTES ABSOLUTE COUNT (BEAKER) (test 1.68 K/ L 1.32-3.57 pnln=780) MONOCYTES ABSOLUTE COUNT (BEAKER) (test 0.76 K/ L 0.30-0.82 nszt=547) EOSINOPHILS ABSOLUTE COUNT (BEAKER) (test 0.29 K/ L 0.04-0.54 fmsz=009) BASOPHILS ABSOLUTE COUNT (BEAKER) (test 0.07 K/ L 0.01-0.08 iozj=757) IMMATURE GRANULOCYTES-RELATIVE PERCENT (BEAKER) 1 % 0-1 (test fpzn=2421) POCT-GLUCOSE [id number] 21:14:00 Test Item Value Reference Range Comments POC-GLUCOSE METER (BEAKER) 151 mg/dL 70-110 TESTED AT [address] (test sbkl=2745) [facility] [address] POCT-GLUCOSE [id number] 17:35:00 Test Item Value Reference Range Comments POC-GLUCOSE METER (BEAKER) 111 mg/dL 70-110 TESTED AT [address] (test fxes=6911) [facility] [address] POCT-GLUCOSE [id number] 13:31:00 Test Item Value Reference Range Comments POC-GLUCOSE METER (BEAKER) 141 mg/dL 70-110 TESTED AT [facility] [address] [facility] (test uwyl=8426) [facility] [address] POCT-GLUCOSE [id number] 08:31:00 Test Item Value Reference Range Comments POC-GLUCOSE METER (BEAKER) 112 mg/dL 70-110 TESTED AT [facility] [address] [facility] (test dxaz=4276) [facility] [address] BASIC METABOLIC [id number] 06:01:00 Test Item Value Reference Range Comments SODIUM (BEAKER) (test 138 meq/L 136-145 onvq=940) POTASSIUM (BEAKER) (test 4.6 meq/L 3.5-5.1 gviw=436) CHLORIDE (BEAKER) (test 109 meq/L 98-107 nmbd=041) CO2 (BEAKER) (test 21 meq/L 22-29 morc=194) BLOOD UREA NITROGEN 41 mg/dL 7-21 (BEAKER) (test trjc=718) CREATININE (BEAKER) (test 1.35 mg/dL 0.57-1.25 gesb=614) GLUCOSE RANDOM (BEAKER) 111 mg/dL 70-105 (test zdbx=326) CALCIUM (BEAKER) (test 8.3 mg/dL 8.4-10.2 hgiy=019) EGFR (BEAKER) (test 52 mL/min/1.73 sq m ESTIMATED GFR IS NOT ptsj=2459) ACCURATE CREATININE CLEARANCE IN PREDICTING GLOMERULAR FILTRATION RATE. ESTIMATED GFR IS NOT APPLICABLE FOR DIALYSIS PATIENTS. CBC W/PLT COUNT & AUTO [id number] 05:43:00 Test Item Value Reference Range Comments WHITE BLOOD CELL COUNT (BEAKER) (test eand=840) 8.9 K/ L 3.5-10.5 RED BLOOD CELL COUNT (BEAKER) (test rhyn=612) 3.42 M/ L 4.63-6.08 HEMOGLOBIN (BEAKER) (test jgni=298) 9.4 GM/DL 13.7-17.5 HEMATOCRIT (BEAKER) (test ijfm=189) 33.0 % 40.1-51.0 MEAN CORPUSCULAR VOLUME (BEAKER) (test zqzg=827) 96.5 fL 79.0-92.2 MEAN CORPUSCULAR HEMOGLOBIN (BEAKER) (test 27.5 pg 25.7-32.2 rxmf=892) MEAN CORPUSCULAR HEMOGLOBIN CONC (BEAKER) (test 28.5 GM/DL 32.3-36.5 dkow=570) RED CELL DISTRIBUTION WIDTH (BEAKER) (test 19.4 % 11.6-14.4 rgde=567) PLATELET COUNT (BEAKER) (test bjmh=216) 420 K/CU MM 150-450 MEAN PLATELET VOLUME (BEAKER) (test fyyb=006) 10.0 fL 9.4-12.4 NUCLEATED RED BLOOD CELLS (BEAKER) (test 0 /100 WBC 0-0 npbz=761) NEUTROPHILS RELATIVE PERCENT (BEAKER) (test 69 % yfth=322) LYMPHOCYTES RELATIVE PERCENT (BEAKER) (test 18 % lzno=654) MONOCYTES RELATIVE PERCENT (BEAKER) (test 9 % cpng=958) EOSINOPHILS RELATIVE PERCENT (BEAKER) (test 3 % pcad=364) BASOPHILS RELATIVE PERCENT (BEAKER) (test 1 % ihso=271) NEUTROPHILS ABSOLUTE COUNT (BEAKER) (test 6.09 K/ L 1.78-5.38 xcdx=373) LYMPHOCYTES ABSOLUTE COUNT (BEAKER) (test 1.57 K/ L 1.32-3.57 gdlg=757) MONOCYTES ABSOLUTE COUNT (BEAKER) (test 0.77 K/ L 0.30-0.82 aalj=829) EOSINOPHILS ABSOLUTE COUNT (BEAKER) (test 0.26 K/ L 0.04-0.54 xoyu=308) BASOPHILS ABSOLUTE COUNT (BEAKER) (test 0.07 K/ L 0.01-0.08 uime=587) IMMATURE GRANULOCYTES-RELATIVE PERCENT (BEAKER) 1 % 0-1 (test kczf=8543) POCT-GLUCOSE [id number] 22:00:00 Test Item Value Reference Range Comments POC-GLUCOSE METER (BEAKER) 126 mg/dL 70-110 TESTED AT [address] (test uvkh=7436) [facility] [address] POCT-GLUCOSE [id number] 17:08:00 Test Item Value Reference Range Comments POC-GLUCOSE METER (BEAKER) 179 mg/dL 70-110 TESTED AT [address] (test yjvm=7028) [facility] [address] POCT-GLUCOSE [id number] 12:10:00 Test Item Value Reference Range Comments POC-GLUCOSE METER (BEAKER) 128 mg/dL 70-110 TESTED AT [facility] [address] [facility] (test jgzc=6703) [facility] [address] POCT-GLUCOSE [id number] 07:38:00 Test Item Value Reference Range Comments POC-GLUCOSE METER (BEAKER) 127 mg/dL 70-110 TESTED AT [facility] [address] [facility] (test qibx=5054) [facility] [address] BASIC METABOLIC [id number] 04:23:00 Test Item Value Reference Range Comments SODIUM (BEAKER) (test 137 meq/L 136-145 ryna=072) POTASSIUM (BEAKER) (test 4.4 meq/L 3.5-5.1 zirx=881) CHLORIDE (BEAKER) (test 106 meq/L 98-107 kpfv=708) CO2 (BEAKER) (test 22 meq/L 22-29 lsop=368) BLOOD UREA NITROGEN 39 mg/dL 7-21 (BEAKER) (test njdd=712) CREATININE (BEAKER) (test 1.45 mg/dL 0.57-1.25 vrrd=583) GLUCOSE RANDOM (BEAKER) 122 mg/dL 70-105 (test tqwj=293) CALCIUM (BEAKER) (test 8.2 mg/dL 8.4-10.2 udho=507) EGFR (BEAKER) (test 48 mL/min/1.73 sq m ESTIMATED GFR IS NOT yikq=6745) ACCURATE CREATININE CLEARANCE IN PREDICTING GLOMERULAR FILTRATION RATE. ESTIMATED GFR IS NOT APPLICABLE FOR DIALYSIS PATIENTS. CBC W/PLT COUNT & AUTO [id number] 04:06:00 Test Item Value Reference Range Comments WHITE BLOOD CELL COUNT (BEAKER) (test zpuo=896) 10.4 K/ L 3.5-10.5 RED BLOOD CELL COUNT (BEAKER) (test tmbp=571) 3.33 M/ L 4.63-6.08 HEMOGLOBIN (BEAKER) (test zkva=645) 9.3 GM/DL 13.7-17.5 HEMATOCRIT (BEAKER) (test zkke=757) 31.3 % 40.1-51.0 MEAN CORPUSCULAR VOLUME (BEAKER) (test tjsg=278) 94.0 fL 79.0-92.2 MEAN CORPUSCULAR HEMOGLOBIN (BEAKER) (test 27.9 pg 25.7-32.2 qunf=145) MEAN CORPUSCULAR HEMOGLOBIN CONC (BEAKER) (test 29.7 GM/DL 32.3-36.5 ucfd=286) RED CELL DISTRIBUTION WIDTH (BEAKER) (test 19.0 % 11.6-14.4 gkdy=728) PLATELET COUNT (BEAKER) (test leqx=979) 427 K/CU MM 150-450 MEAN PLATELET VOLUME (BEAKER) (test vnyb=506) 9.4 fL 9.4-12.4 NUCLEATED RED BLOOD CELLS (BEAKER) (test 0 /100 WBC 0-0 hlxx=199) NEUTROPHILS RELATIVE PERCENT (BEAKER) (test 72 % eehg=047) LYMPHOCYTES RELATIVE PERCENT (BEAKER) (test 15 % qykq=783) MONOCYTES RELATIVE PERCENT (BEAKER) (test 10 % eqbh=034) EOSINOPHILS RELATIVE PERCENT (BEAKER) (test 2 % suqt=574) BASOPHILS RELATIVE PERCENT (BEAKER) (test 1 % fgjc=522) NEUTROPHILS ABSOLUTE COUNT (BEAKER) (test 7.44 K/ L 1.78-5.38 wsgs=825) LYMPHOCYTES ABSOLUTE COUNT (BEAKER) (test 1.55 K/ L 1.32-3.57 zuwy=251) MONOCYTES ABSOLUTE COUNT (BEAKER) (test 0.99 K/ L 0.30-0.82 zkze=948) EOSINOPHILS ABSOLUTE COUNT (BEAKER) (test 0.24 K/ L 0.04-0.54 ocyb=800) BASOPHILS ABSOLUTE COUNT (BEAKER) (test 0.05 K/ L 0.01-0.08 ijlu=235) IMMATURE GRANULOCYTES-RELATIVE PERCENT (BEAKER) 1 % 0-1 (test gsal=1600) POCT-GLUCOSE [id number] 21:40:00 Test Item Value Reference Range Comments POC-GLUCOSE METER (BEAKER) 139 mg/dL 70-110 TESTED AT [address] (test fwhc=0097) [facility] [address] POCT-GLUCOSE [id number] 17:42:00 Test Item Value Reference Range Comments POC-GLUCOSE METER (BEAKER) 131 mg/dL 70-110 TESTED AT [address] (test wfve=0689) [facility] [address] POCT-GLUCOSE [id number] 11:35:00 Test Item Value Reference Range Comments POC-GLUCOSE METER (BEAKER) 141 mg/dL 70-110 TESTED AT [facility] [address] [facility] (test bvrh=3994) [facility] [address] POCT-GLUCOSE [id number] 08:03:00 Test Item Value Reference Range Comments POC-GLUCOSE METER (BEAKER) 125 mg/dL 70-110 TESTED AT [facility] [address] [facility] (test bclw=9628) [facility] [address] BASIC METABOLIC [id number] 05:36:00 Test Item Value Reference Range Comments SODIUM (BEAKER) (test 138 meq/L 136-145 odlo=056) POTASSIUM (BEAKER) (test 4.5 meq/L 3.5-5.1 frfy=266) CHLORIDE (BEAKER) (test 106 meq/L 98-107 fdef=705) CO2 (BEAKER) (test 23 meq/L 22-29 ojvv=923) BLOOD UREA NITROGEN 41 mg/dL 7-21 (BEAKER) (test kalz=520) CREATININE (BEAKER) (test 1.55 mg/dL 0.57-1.25 oiab=366) GLUCOSE RANDOM (BEAKER) 115 mg/dL 70-105 (test mgve=479) CALCIUM (BEAKER) (test 8.5 mg/dL 8.4-10.2 ygcl=751) EGFR (BEAKER) (test 44 mL/min/1.73 sq m ESTIMATED GFR IS NOT oxnz=6307) ACCURATE CREATININE CLEARANCE IN PREDICTING GLOMERULAR FILTRATION RATE. ESTIMATED GFR IS NOT APPLICABLE FOR DIALYSIS PATIENTS. CBC W/PLT COUNT & AUTO [id number] 03:42:00 Test Item Value Reference Range Comments WHITE BLOOD CELL COUNT (BEAKER) (test abzu=521) 10.2 K/ L 3.5-10.5 RED BLOOD CELL COUNT (BEAKER) (test tqas=176) 3.57 M/ L 4.63-6.08 HEMOGLOBIN (BEAKER) (test xibu=858) 10.0 GM/DL 13.7-17.5 HEMATOCRIT (BEAKER) (test wdqy=393) 33.2 % 40.1-51.0 MEAN CORPUSCULAR VOLUME (BEAKER) (test cevp=818) 93.0 fL 79.0-92.2 MEAN CORPUSCULAR HEMOGLOBIN (BEAKER) (test 28.0 pg 25.7-32.2 rowe=908) MEAN CORPUSCULAR HEMOGLOBIN CONC (BEAKER) (test 30.1 GM/DL 32.3-36.5 twwj=665) RED CELL DISTRIBUTION WIDTH (BEAKER) (test 18.9 % 11.6-14.4 zxha=797) PLATELET COUNT (BEAKER) (test mopk=846) 479 K/CU MM 150-450 MEAN PLATELET VOLUME (BEAKER) (test yjiu=612) 10.2 fL 9.4-12.4 NUCLEATED RED BLOOD CELLS (BEAKER) (test 0 /100 WBC 0-0 nwvi=567) NEUTROPHILS RELATIVE PERCENT (BEAKER) (test 70 % vlah=368) LYMPHOCYTES RELATIVE PERCENT (BEAKER) (test 17 % yghj=969) MONOCYTES RELATIVE PERCENT (BEAKER) (test 8 % eppk=187) EOSINOPHILS RELATIVE PERCENT (BEAKER) (test 3 % nwdx=280) BASOPHILS RELATIVE PERCENT (BEAKER) (test 1 % pjsr=516) NEUTROPHILS ABSOLUTE COUNT (BEAKER) (test 7.12 K/ L 1.78-5.38 ocxl=126) LYMPHOCYTES ABSOLUTE COUNT (BEAKER) (test 1.74 K/ L 1.32-3.57 ghib=479) MONOCYTES ABSOLUTE COUNT (BEAKER) (test 0.82 K/ L 0.30-0.82 ecsh=354) EOSINOPHILS ABSOLUTE COUNT (BEAKER) (test 0.30 K/ L 0.04-0.54 hvqw=461) BASOPHILS ABSOLUTE COUNT (BEAKER) (test 0.08 K/ L 0.01-0.08 fbln=166) IMMATURE GRANULOCYTES-RELATIVE PERCENT (BEAKER) 1 % 0-1 (test rrki=8373) POCT-GLUCOSE [id number] 21:24:00 Test Item Value Reference Range Comments POC-GLUCOSE METER (BEAKER) 137 mg/dL 70-110 TESTED AT [address] (test okmz=4927) [facility] [address] POCT-GLUCOSE [id number] 17:12:00 Test Item Value Reference Range Comments POC-GLUCOSE METER (BEAKER) 152 mg/dL 70-110 TESTED AT [address] (test gfhz=7511) [facility] [address] POCT-GLUCOSE [id number] 11:57:00 Test Item Value Reference Range Comments POC-GLUCOSE METER (BEAKER) 151 mg/dL 70-110 TESTED AT [address] (test wnyj=4752) [facility] [address] BASIC METABOLIC [id number] 07:24:00 Test Item Value Reference Range Comments SODIUM (BEAKER) (test 136 meq/L 136-145 kxsh=927) POTASSIUM (BEAKER) (test 4.8 meq/L 3.5-5.1 Specimen slightly uala=908) hemolyzed CHLORIDE (BEAKER) (test 105 meq/L 98-107 cbiw=485) CO2 (BEAKER) (test 20 meq/L 22-29 yrwa=372) BLOOD UREA NITROGEN 44 mg/dL 7-21 (BEAKER) (test lfgb=136) CREATININE (BEAKER) (test 1.65 mg/dL 0.57-1.25 Specimen slightly dmlm=312) hemolyzed GLUCOSE RANDOM (BEAKER) 105 mg/dL 70-105 (test ptwg=502) CALCIUM (BEAKER) (test 8.7 mg/dL 8.4-10.2 tbbr=163) EGFR (BEAKER) (test 41 mL/min/1.73 sq m ESTIMATED GFR IS NOT qmfl=8694) ACCURATE CREATININE CLEARANCE IN PREDICTING GLOMERULAR FILTRATION RATE. ESTIMATED GFR IS NOT APPLICABLE FOR DIALYSIS PATIENTS. POCT-GLUCOSE [id number] 06:53:00 Test Item Value Reference Range Comments POC-GLUCOSE METER (BEAKER) 184 mg/dL 70-110 TESTED AT [address] (test ihyh=4237) [place] [address] CBC W/PLT COUNT & AUTO [id number] 06:01:00 Test Item Value Reference Range Comments WHITE BLOOD CELL COUNT (BEAKER) (test lnia=188) 9.2 K/ L 3.5-10.5 RED BLOOD CELL COUNT (BEAKER) (test mrmz=489) 3.58 M/ L 4.63-6.08 HEMOGLOBIN (BEAKER) (test mgik=914) 9.8 GM/DL 13.7-17.5 HEMATOCRIT (BEAKER) (test mbgm=407) 33.5 % 40.1-51.0 MEAN CORPUSCULAR VOLUME (BEAKER) (test zjjs=813) 93.6 fL 79.0-92.2 MEAN CORPUSCULAR HEMOGLOBIN (BEAKER) (test 27.4 pg 25.7-32.2 azum=283) MEAN CORPUSCULAR HEMOGLOBIN CONC (BEAKER) (test 29.3 GM/DL 32.3-36.5 cagr=640) RED CELL DISTRIBUTION WIDTH (BEAKER) (test 18.6 % 11.6-14.4 dtjt=955) PLATELET COUNT (BEAKER) (test zdde=262) 466 K/CU MM 150-450 MEAN PLATELET VOLUME (BEAKER) (test xmlt=163) 10.2 fL 9.4-12.4 NUCLEATED RED BLOOD CELLS (BEAKER) (test 0 /100 WBC 0-0 xnhf=189) NEUTROPHILS RELATIVE PERCENT (BEAKER) (test 71 % sttz=513) LYMPHOCYTES RELATIVE PERCENT (BEAKER) (test 16 % efby=940) MONOCYTES RELATIVE PERCENT (BEAKER) (test 9 % muhh=074) EOSINOPHILS RELATIVE PERCENT (BEAKER) (test 2 % buuy=062) BASOPHILS RELATIVE PERCENT (BEAKER) (test 1 % vqae=691) NEUTROPHILS ABSOLUTE COUNT (BEAKER) (test 6.47 K/ L 1.78-5.38 bpvf=801) LYMPHOCYTES ABSOLUTE COUNT (BEAKER) (test 1.46 K/ L 1.32-3.57 xzkj=037) MONOCYTES ABSOLUTE COUNT (BEAKER) (test 0.85 K/ L 0.30-0.82 jztj=640) EOSINOPHILS ABSOLUTE COUNT (BEAKER) (test 0.22 K/ L 0.04-0.54 pevb=339) BASOPHILS ABSOLUTE COUNT (BEAKER) (test 0.08 K/ L 0.01-0.08 eufw=393) IMMATURE GRANULOCYTES-RELATIVE PERCENT (BEAKER) 1 % 0-1 (test vgfr=5456) POCT-GLUCOSE [id number] 21:15:00 Test Item Value Reference Range Comments POC-GLUCOSE METER (BEAKER) 133 mg/dL 70-110 TESTED AT [address] (test guex=4026) [facility] [address] POCT-GLUCOSE [id number] 17:01:00 Test Item Value Reference Range Comments POC-GLUCOSE METER (BEAKER) 136 mg/dL 70-110 TESTED AT [address] (test hnph=2227) [facility] [address] POCT-GLUCOSE [id number] 12:12:00 Test Item Value Reference Range Comments POC-GLUCOSE METER (BEAKER) 158 mg/dL 70-110 TESTED AT [facility] [address] [facility] (test wxrq=0647) [facility] [address] POCT-GLUCOSE [id number] 07:35:00 Test Item Value Reference Range Comments POC-GLUCOSE METER (BEAKER) 132 mg/dL 70-110 TESTED AT [facility] [address] [facility] (test wqbd=5247) [facility] [address] BASIC METABOLIC [id number] 05:58:00 Test Item Value Reference Range Comments SODIUM (BEAKER) (test 135 meq/L 136-145 duto=680) POTASSIUM (BEAKER) (test 4.1 meq/L 3.5-5.1 jbgw=957) CHLORIDE (BEAKER) (test 104 meq/L 98-107 btte=336) CO2 (BEAKER) (test 22 meq/L 22-29 rwjw=466) BLOOD UREA NITROGEN 41 mg/dL 7-21 (BEAKER) (test hyto=243) CREATININE (BEAKER) (test 1.60 mg/dL 0.57-1.25 zdni=985) GLUCOSE RANDOM (BEAKER) 119 mg/dL 70-105 (test ulng=836) CALCIUM (BEAKER) (test 8.3 mg/dL 8.4-10.2 bahq=246) EGFR (BEAKER) (test 42 mL/min/1.73 sq m ESTIMATED GFR IS NOT cwhm=0689) ACCURATE CREATININE CLEARANCE IN PREDICTING GLOMERULAR FILTRATION RATE. ESTIMATED GFR IS NOT APPLICABLE FOR DIALYSIS PATIENTS. CBC W/PLT COUNT & AUTO [id number] 05:13:00 Test Item Value Reference Range Comments WHITE BLOOD CELL COUNT (BEAKER) (test avlv=750) 9.2 K/ L 3.5-10.5 RED BLOOD CELL COUNT (BEAKER) (test nkon=437) 3.50 M/ L 4.63-6.08 HEMOGLOBIN (BEAKER) (test rrfk=089) 9.6 GM/DL 13.7-17.5 HEMATOCRIT (BEAKER) (test kagt=042) 32.3 % 40.1-51.0 MEAN CORPUSCULAR VOLUME (BEAKER) (test binn=481) 92.3 fL 79.0-92.2 MEAN CORPUSCULAR HEMOGLOBIN (BEAKER) (test 27.4 pg 25.7-32.2 xrfs=613) MEAN CORPUSCULAR HEMOGLOBIN CONC (BEAKER) (test 29.7 GM/DL 32.3-36.5 eagm=575) RED CELL DISTRIBUTION WIDTH (BEAKER) (test 18.5 % 11.6-14.4 tzpr=090) PLATELET COUNT (BEAKER) (test xqnr=471) 447 K/CU MM 150-450 MEAN PLATELET VOLUME (BEAKER) (test yzuc=643) 10.0 fL 9.4-12.4 NUCLEATED RED BLOOD CELLS (BEAKER) (test 0 /100 WBC 0-0 ilma=751) NEUTROPHILS RELATIVE PERCENT (BEAKER) (test 72 % stlc=205) LYMPHOCYTES RELATIVE PERCENT (BEAKER) (test 14 % jldx=094) MONOCYTES RELATIVE PERCENT (BEAKER) (test 10 % drbt=870) EOSINOPHILS RELATIVE PERCENT (BEAKER) (test 3 % bzjp=135) BASOPHILS RELATIVE PERCENT (BEAKER) (test 1 % manj=731) NEUTROPHILS ABSOLUTE COUNT (BEAKER) (test 6.64 K/ L 1.78-5.38 vbbb=575) LYMPHOCYTES ABSOLUTE COUNT (BEAKER) (test 1.31 K/ L 1.32-3.57 kiwp=282) MONOCYTES ABSOLUTE COUNT (BEAKER) (test 0.88 K/ L 0.30-0.82 smvo=669) EOSINOPHILS ABSOLUTE COUNT (BEAKER) (test 0.26 K/ L 0.04-0.54 dgix=459) BASOPHILS ABSOLUTE COUNT (BEAKER) (test 0.05 K/ L 0.01-0.08 pbhg=909) IMMATURE GRANULOCYTES-RELATIVE PERCENT (BEAKER) 1 % 0-1 (test bhnv=6676) POCT-GLUCOSE [id number] 21:04:00 Test Item Value Reference Range Comments POC-GLUCOSE METER (BEAKER) 146 mg/dL 70-110 TESTED AT [address] (test todl=7031) [facility] [address] POCT-GLUCOSE [id number] 17:46:00 Test Item Value Reference Range Comments POC-GLUCOSE METER (BEAKER) 131 mg/dL 70-110 TESTED AT [address] (test yike=5378) [facility] [id number] POCT-GLUCOSE [id number] 12:39:00 Test Item Value Reference Range Comments POC-GLUCOSE METER (BEAKER) 148 mg/dL 70-110 TESTED AT [facility] [address] [facility] (test bvqr=4920) [facility] [address] POCT-GLUCOSE [id number] 07:56:00 Test Item Value Reference Range Comments POC-GLUCOSE METER (BEAKER) 128 mg/dL 70-110 TESTED AT [facility] [address] [facility] (test qiuh=6965) [facility] [address] BASIC METABOLIC [id number] 05:23:00 Test Item Value Reference Range Comments SODIUM (BEAKER) (test 136 meq/L 136-145 elak=899) POTASSIUM (BEAKER) (test 4.1 meq/L 3.5-5.1 qbpo=237) CHLORIDE (BEAKER) (test 104 meq/L 98-107 revv=893) CO2 (BEAKER) (test 22 meq/L 22-29 fxhz=632) BLOOD UREA NITROGEN 38 mg/dL 7-21 (BEAKER) (test hiez=181) CREATININE (BEAKER) (test 1.66 mg/dL 0.57-1.25 kiet=124) GLUCOSE RANDOM (BEAKER) 114 mg/dL 70-105 (test cala=134) CALCIUM (BEAKER) (test 8.3 mg/dL 8.4-10.2 paan=232) EGFR (BEAKER) (test 41 mL/min/1.73 sq m ESTIMATED GFR IS NOT nquq=4125) ACCURATE CREATININE CLEARANCE IN PREDICTING GLOMERULAR FILTRATION RATE. ESTIMATED GFR IS NOT APPLICABLE FOR DIALYSIS PATIENTS. CBC W/PLT COUNT & AUTO [id number] 05:05:00 Test Item Value Reference Range Comments WHITE BLOOD CELL COUNT (BEAKER) (test xyrl=943) 9.7 K/ L 3.5-10.5 RED BLOOD CELL COUNT (BEAKER) (test pvxx=566) 3.44 M/ L 4.63-6.08 HEMOGLOBIN (BEAKER) (test ndgb=853) 9.6 GM/DL 13.7-17.5 HEMATOCRIT (BEAKER) (test tgij=343) 32.2 % 40.1-51.0 MEAN CORPUSCULAR VOLUME (BEAKER) (test tkpl=090) 93.6 fL 79.0-92.2 MEAN CORPUSCULAR HEMOGLOBIN (BEAKER) (test 27.9 pg 25.7-32.2 nlsy=228) MEAN CORPUSCULAR HEMOGLOBIN CONC (BEAKER) (test 29.8 GM/DL 32.3-36.5 gark=302) RED CELL DISTRIBUTION WIDTH (BEAKER) (test 18.3 % 11.6-14.4 rhvb=856) PLATELET COUNT (BEAKER) (test hsoe=752) 429 K/CU MM 150-450 MEAN PLATELET VOLUME (BEAKER) (test hurw=834) 9.9 fL 9.4-12.4 NUCLEATED RED BLOOD CELLS (BEAKER) (test 0 /100 WBC 0-0 xzgm=707) NEUTROPHILS RELATIVE PERCENT (BEAKER) (test 73 % vlkg=628) LYMPHOCYTES RELATIVE PERCENT (BEAKER) (test 14 % mloe=385) MONOCYTES RELATIVE PERCENT (BEAKER) (test 10 % mroi=407) EOSINOPHILS RELATIVE PERCENT (BEAKER) (test 3 % whge=650) BASOPHILS RELATIVE PERCENT (BEAKER) (test 1 % ovzk=382) NEUTROPHILS ABSOLUTE COUNT (BEAKER) (test 7.02 K/ L 1.78-5.38 fmju=304) LYMPHOCYTES ABSOLUTE COUNT (BEAKER) (test 1.33 K/ L 1.32-3.57 wchn=584) MONOCYTES ABSOLUTE COUNT (BEAKER) (test 0.92 K/ L 0.30-0.82 nxhi=493) EOSINOPHILS ABSOLUTE COUNT (BEAKER) (test 0.25 K/ L 0.04-0.54 nuts=147) BASOPHILS ABSOLUTE COUNT (BEAKER) (test 0.06 K/ L 0.01-0.08 ixvl=384) IMMATURE GRANULOCYTES-RELATIVE PERCENT (BEAKER) 1 % 0-1 (test xrdq=1656) POCT-GLUCOSE [id number] 21:28:00 Test Item Value Reference Range Comments POC-GLUCOSE METER (BEAKER) 125 mg/dL 70-110 TESTED AT [address] (test rnfm=8556) [facility] [address] POCT-GLUCOSE [id number] 19:02:00 Test Item Value Reference Range Comments POC-GLUCOSE METER (BEAKER) 129 mg/dL 70-110 TESTED AT [address] (test lbpl=3853) [facility] [address] POCT-GLUCOSE [id number] 14:06:00 Test Item Value Reference Range Comments POC-GLUCOSE METER (BEAKER) 162 mg/dL 70-110 TESTED AT [facility] [address] [facility] (test mzde=9583) [facility] [address] POCT-GLUCOSE [id number] 08:16:00 Test Item Value Reference Range Comments POC-GLUCOSE METER (BEAKER) 140 mg/dL 70-110 TESTED AT [facility] [address] [facility] (test lirw=7390) [facility] [address] BASIC METABOLIC [id number] 05:17:00 Test Item Value Reference Range Comments SODIUM (BEAKER) (test 137 meq/L 136-145 lpkj=497) POTASSIUM (BEAKER) (test 3.8 meq/L 3.5-5.1 ydre=038) CHLORIDE (BEAKER) (test 104 meq/L 98-107 eodl=137) CO2 (BEAKER) (test 22 meq/L 22-29 wthz=452) BLOOD UREA NITROGEN 37 mg/dL 7-21 (BEAKER) (test dmcj=743) CREATININE (BEAKER) (test 1.81 mg/dL 0.57-1.25 rnkd=386) GLUCOSE RANDOM (BEAKER) 118 mg/dL 70-105 (test zssh=502) CALCIUM (BEAKER) (test 8.5 mg/dL 8.4-10.2 wqqj=904) EGFR (BEAKER) (test 37 mL/min/1.73 sq m ESTIMATED GFR IS NOT ziuf=6259) ACCURATE CREATININE CLEARANCE IN PREDICTING GLOMERULAR FILTRATION RATE. ESTIMATED GFR IS NOT APPLICABLE FOR DIALYSIS PATIENTS. CBC W/PLT COUNT & AUTO [id number] 04:55:00 Test Item Value Reference Range Comments WHITE BLOOD CELL COUNT (BEAKER) (test fije=478) 10.4 K/ L 3.5-10.5 RED BLOOD CELL COUNT (BEAKER) (test bssm=349) 3.42 M/ L 4.63-6.08 HEMOGLOBIN (BEAKER) (test dzav=230) 9.6 GM/DL 13.7-17.5 HEMATOCRIT (BEAKER) (test exlf=903) 31.9 % 40.1-51.0 MEAN CORPUSCULAR VOLUME (BEAKER) (test isft=905) 93.3 fL 79.0-92.2 MEAN CORPUSCULAR HEMOGLOBIN (BEAKER) (test 28.1 pg 25.7-32.2 mroo=607) MEAN CORPUSCULAR HEMOGLOBIN CONC (BEAKER) (test 30.1 GM/DL 32.3-36.5 josv=902) RED CELL DISTRIBUTION WIDTH (BEAKER) (test 18.4 % 11.6-14.4 vror=571) PLATELET COUNT (BEAKER) (test xhug=797) 453 K/CU MM 150-450 MEAN PLATELET VOLUME (BEAKER) (test nbtk=170) 10.0 fL 9.4-12.4 NUCLEATED RED BLOOD CELLS (BEAKER) (test 0 /100 WBC 0-0 ugue=578) NEUTROPHILS RELATIVE PERCENT (BEAKER) (test 74 % gijf=560) LYMPHOCYTES RELATIVE PERCENT (BEAKER) (test 13 % odsx=601) MONOCYTES RELATIVE PERCENT (BEAKER) (test 9 % giui=905) EOSINOPHILS RELATIVE PERCENT (BEAKER) (test 3 % pgde=960) BASOPHILS RELATIVE PERCENT (BEAKER) (test 0 % brbr=253) NEUTROPHILS ABSOLUTE COUNT (BEAKER) (test 7.63 K/ L 1.78-5.38 wtes=264) LYMPHOCYTES ABSOLUTE COUNT (BEAKER) (test 1.35 K/ L 1.32-3.57 fzqg=707) MONOCYTES ABSOLUTE COUNT (BEAKER) (test 0.97 K/ L 0.30-0.82 uiyh=061) EOSINOPHILS ABSOLUTE COUNT (BEAKER) (test 0.27 K/ L 0.04-0.54 vpwl=480) BASOPHILS ABSOLUTE COUNT (BEAKER) (test 0.04 K/ L 0.01-0.08 hxuw=350) IMMATURE GRANULOCYTES-RELATIVE PERCENT (BEAKER) 1 % 0-1 (test mkoz=2143) POCT-GLUCOSE [id number] 22:33:00 Test Item Value Reference Range Comments POC-GLUCOSE METER (BEAKER) 165 mg/dL 70-110 TESTED AT [address] (test hsnj=9440) [facility] [address] POCT-GLUCOSE [id number] 16:58:00 Test Item Value Reference Range Comments POC-GLUCOSE METER (BEAKER) 126 mg/dL 70-110 TESTED AT [address] (test zuct=4003) [facility] [address] POCT-GLUCOSE [id number] 11:51:00 Test Item Value Reference Range Comments POC-GLUCOSE METER (BEAKER) 209 mg/dL 70-110 TESTED AT [facility] [address] [facility] (test aapq=0402) [facility] [address] POCT-GLUCOSE [id number] 08:03:00 Test Item Value Reference Range Comments POC-GLUCOSE METER (BEAKER) 150 mg/dL 70-110 TESTED AT [facility] [address] [facility] (test txwr=0038) [facility] [address] [id number] 07:03:00 Test Item Value Reference Range Comments MAGNESIUM (BEAKER) (test 2.1 mg/dL 1.6-2.6 Specimen slightly hemolyzed edpe=679) BASIC METABOLIC [id number] 07:03:00 Test Item Value Reference Range Comments SODIUM (BEAKER) (test 135 meq/L 136-145 ghlw=667) POTASSIUM (BEAKER) (test 4.2 meq/L 3.5-5.1 Specimen slightly xwtd=291) hemolyzed CHLORIDE (BEAKER) (test 101 meq/L 98-107 iyhs=141) CO2 (BEAKER) (test 24 meq/L 22-29 gwls=423) BLOOD UREA NITROGEN 35 mg/dL 7-21 (BEAKER) (test rpeu=156) CREATININE (BEAKER) (test 1.71 mg/dL 0.57-1.25 Specimen slightly fqhw=914) hemolyzed GLUCOSE RANDOM (BEAKER) 125 mg/dL 70-105 (test hrts=156) CALCIUM (BEAKER) (test 8.4 mg/dL 8.4-10.2 frkz=072) EGFR (BEAKER) (test 39 mL/min/1.73 sq m ESTIMATED GFR IS NOT wphz=4071) ACCURATE CREATININE CLEARANCE IN PREDICTING GLOMERULAR FILTRATION RATE. ESTIMATED GFR IS NOT APPLICABLE FOR DIALYSIS PATIENTS. CBC W/PLT COUNT & AUTO [id number] 06:22:00 Test Item Value Reference Range Comments WHITE BLOOD CELL COUNT (BEAKER) (test ryos=662) 9.8 K/ L 3.5-10.5 RED BLOOD CELL COUNT (BEAKER) (test cywh=225) 3.53 M/ L 4.63-6.08 HEMOGLOBIN (BEAKER) (test mqlx=162) 9.6 GM/DL 13.7-17.5 HEMATOCRIT (BEAKER) (test smji=607) 32.8 % 40.1-51.0 MEAN CORPUSCULAR VOLUME (BEAKER) (test dthg=330) 92.9 fL 79.0-92.2 MEAN CORPUSCULAR HEMOGLOBIN (BEAKER) (test 27.2 pg 25.7-32.2 hefe=778) MEAN CORPUSCULAR HEMOGLOBIN CONC (BEAKER) (test 29.3 GM/DL 32.3-36.5 gqmc=900) RED CELL DISTRIBUTION WIDTH (BEAKER) (test 18.3 % 11.6-14.4 jyez=028) PLATELET COUNT (BEAKER) (test wupk=098) 482 K/CU MM 150-450 MEAN PLATELET VOLUME (BEAKER) (test guhw=000) 9.9 fL 9.4-12.4 NUCLEATED RED BLOOD CELLS (BEAKER) (test 0 /100 WBC 0-0 bjvh=644) NEUTROPHILS RELATIVE PERCENT (BEAKER) (test 72 % aapw=711) LYMPHOCYTES RELATIVE PERCENT (BEAKER) (test 13 % lnmo=266) MONOCYTES RELATIVE PERCENT (BEAKER) (test 10 % xmrp=779) EOSINOPHILS RELATIVE PERCENT (BEAKER) (test 3 % izph=220) BASOPHILS RELATIVE PERCENT (BEAKER) (test 1 % ixqy=623) NEUTROPHILS ABSOLUTE COUNT (BEAKER) (test 6.97 K/ L 1.78-5.38 zzia=314) LYMPHOCYTES ABSOLUTE COUNT (BEAKER) (test 1.31 K/ L 1.32-3.57 axmz=716) MONOCYTES ABSOLUTE COUNT (BEAKER) (test 0.97 K/ L 0.30-0.82 xksz=186) EOSINOPHILS ABSOLUTE COUNT (BEAKER) (test 0.31 K/ L 0.04-0.54 zejz=221) BASOPHILS ABSOLUTE COUNT (BEAKER) (test 0.06 K/ L 0.01-0.08 yoia=117) IMMATURE GRANULOCYTES-RELATIVE PERCENT (BEAKER) 1 % 0-1 (test edsc=0240) ANAEROBIC [id number] 03:41:00 Test Item Value Reference Range Comments CULTURE (BEAKER) (test <1+ Anaerobic gram positive gjnc=1559) bacilliNon-viable for identification ANAEROBIC [id number] 03:38:00 Test Item Value Reference Range Comments CULTURE (BEAKER) (test jzhc=3052) 2+ Bacteroides fragilis group POCT-GLUCOSE [id number] 22:50:00 Test Item Value Reference Range Comments POC-GLUCOSE METER (BEAKER) 151 mg/dL 70-110 TESTED AT [address] (test uaju=8101) [facility] [address] POCT-GLUCOSE [id number] 17:47:00 Test Item Value Reference Range Comments POC-GLUCOSE METER (BEAKER) 165 mg/dL 70-110 TESTED AT [address] (test uepy=3455) [facility] [address] POCT-GLUCOSE [id number] 12:57:00 Test Item Value Reference Range Comments POC-GLUCOSE METER (BEAKER) 122 mg/dL 70-110 TESTED AT [address] (test cwiy=6307) [facility] [address] POCT-GLUCOSE [id number] 09:14:00 Test Item Value Reference Range Comments POC-GLUCOSE METER (BEAKER) 164 mg/dL 70-110 TESTED AT [address] (test vrih=1946) [facility] [address] BASIC METABOLIC [id number] 04:07:00 Test Item Value Reference Range Comments SODIUM (BEAKER) (test 135 meq/L 136-145 ywil=008) POTASSIUM (BEAKER) (test 3.7 meq/L 3.5-5.1 oidy=891) CHLORIDE (BEAKER) (test 101 meq/L 98-107 vbpo=490) CO2 (BEAKER) (test 24 meq/L 22-29 imyw=377) BLOOD UREA NITROGEN 36 mg/dL 7-21 (BEAKER) (test vept=754) CREATININE (BEAKER) (test 1.68 mg/dL 0.57-1.25 bsyc=464) GLUCOSE RANDOM (BEAKER) 112 mg/dL 70-105 (test azwl=066) CALCIUM (BEAKER) (test 8.2 mg/dL 8.4-10.2 bzxe=469) EGFR (BEAKER) (test 40 mL/min/1.73 sq m ESTIMATED GFR IS NOT mlxr=9979) ACCURATE CREATININE CLEARANCE IN PREDICTING GLOMERULAR FILTRATION RATE. ESTIMATED GFR IS NOT APPLICABLE FOR DIALYSIS PATIENTS. CBC W/PLT COUNT & AUTO [id number] 03:48:00 Test Item Value Reference Range Comments WHITE BLOOD CELL COUNT (BEAKER) (test icwx=488) 10.4 K/ L 3.5-10.5 RED BLOOD CELL COUNT (BEAKER) (test kocz=227) 3.37 M/ L 4.63-6.08 HEMOGLOBIN (BEAKER) (test uzkm=466) 9.4 GM/DL 13.7-17.5 HEMATOCRIT (BEAKER) (test ttxn=066) 31.1 % 40.1-51.0 MEAN CORPUSCULAR VOLUME (BEAKER) (test xmjz=691) 92.3 fL 79.0-92.2 MEAN CORPUSCULAR HEMOGLOBIN (BEAKER) (test 27.9 pg 25.7-32.2 jpke=373) MEAN CORPUSCULAR HEMOGLOBIN CONC (BEAKER) (test 30.2 GM/DL 32.3-36.5 kgzj=014) RED CELL DISTRIBUTION WIDTH (BEAKER) (test 17.9 % 11.6-14.4 nwic=212) PLATELET COUNT (BEAKER) (test xwee=232) 461 K/CU MM 150-450 MEAN PLATELET VOLUME (BEAKER) (test afsb=533) 9.5 fL 9.4-12.4 NUCLEATED RED BLOOD CELLS (BEAKER) (test 0 /100 WBC 0-0 cfkr=348) NEUTROPHILS RELATIVE PERCENT (BEAKER) (test 72 % aoku=644) LYMPHOCYTES RELATIVE PERCENT (BEAKER) (test 13 % uxyf=585) MONOCYTES RELATIVE PERCENT (BEAKER) (test 10 % hkop=581) EOSINOPHILS RELATIVE PERCENT (BEAKER) (test 3 % ylxy=299) BASOPHILS RELATIVE PERCENT (BEAKER) (test 1 % nflb=842) NEUTROPHILS ABSOLUTE COUNT (BEAKER) (test 7.51 K/ L 1.78-5.38 rgxp=206) LYMPHOCYTES ABSOLUTE COUNT (BEAKER) (test 1.35 K/ L 1.32-3.57 odah=884) MONOCYTES ABSOLUTE COUNT (BEAKER) (test 1.03 K/ L 0.30-0.82 pvoi=702) EOSINOPHILS ABSOLUTE COUNT (BEAKER) (test 0.32 K/ L 0.04-0.54 nete=232) BASOPHILS ABSOLUTE COUNT (BEAKER) (test 0.05 K/ L 0.01-0.08 tnzs=436) IMMATURE GRANULOCYTES-RELATIVE PERCENT (BEAKER) 1 % 0-1 (test xldx=4523) BLOOD [id number] 00:00:00 Test Item Value Reference Range Comments CULTURE (BEAKER) (test avai=3062) No growth in 5 days BLOOD [id number] 00:00:00 Test Item Value Reference Range Comments CULTURE (BEAKER) (test uora=4005) No growth in 5 days POCT-GLUCOSE [id number] 21:35:00 Test Item Value Reference Range Comments POC-GLUCOSE METER (BEAKER) 135 mg/dL 70-110 TESTED AT [address] (test pqiq=2387) [facility] [address] POCT-GLUCOSE [id number] 17:27:00 Test Item Value Reference Range Comments POC-GLUCOSE METER (BEAKER) 192 mg/dL 70-110 TESTED AT [address] (test mgnj=5457) [place] [id number] POCT-GLUCOSE [id number] 12:19:00 Test Item Value Reference Range Comments POC-GLUCOSE METER (BEAKER) 200 mg/dL 70-110 TESTED AT [address] (test qfwm=9238) [place] [address] RAD, CHEST, 1 VIEW, NON [id number] 11:22:00Reason for exam:->shortness of breathFINAL REPORT Comparison: 09/06/2017 TECHNIQUE: Single view of the chest FINDINGS: Scattered atelectasis and/or scarring. There may be small left pleural effusion with adjacent airspace disease. Cardiac silhouette is prominent. IMPRESSION:. No significant interval change. Signed: Emerson Palacios MDReport Verified Date/Time: 09/07/2017 11:22:01 Reading Location: [address] Transitional Reading Room CBC W/PLT COUNT & AUTO [id number] 10:35:00 Test Item Value Reference Range Comments WHITE BLOOD CELL COUNT (BEAKER) (test xjnp=795) 12.5 K/ L 3.5-10.5 RED BLOOD CELL COUNT (BEAKER) (test tfbz=200) 3.71 M/ L 4.63-6.08 HEMOGLOBIN (BEAKER) (test fdqb=661) 10.5 GM/DL 13.7-17.5 HEMATOCRIT (BEAKER) (test tjiw=221) 34.8 % 40.1-51.0 MEAN CORPUSCULAR VOLUME (BEAKER) (test wzns=472) 93.8 fL 79.0-92.2 MEAN CORPUSCULAR HEMOGLOBIN (BEAKER) (test 28.3 pg 25.7-32.2 nohb=653) MEAN CORPUSCULAR HEMOGLOBIN CONC (BEAKER) (test 30.2 GM/DL 32.3-36.5 ifkb=344) RED CELL DISTRIBUTION WIDTH (BEAKER) (test 18.2 % 11.6-14.4 atip=441) PLATELET COUNT (BEAKER) (test halv=153) 497 K/CU MM 150-450 MEAN PLATELET VOLUME (BEAKER) (test erfb=138) 9.6 fL 9.4-12.4 NUCLEATED RED BLOOD CELLS (BEAKER) (test 0 /100 WBC 0-0 lqqa=525) NEUTROPHILS RELATIVE PERCENT (BEAKER) (test 79 % yzxi=409) LYMPHOCYTES RELATIVE PERCENT (BEAKER) (test 9 % ivbv=045) MONOCYTES RELATIVE PERCENT (BEAKER) (test 7 % kmov=580) EOSINOPHILS RELATIVE PERCENT (BEAKER) (test 2 % wvlh=386) BASOPHILS RELATIVE PERCENT (BEAKER) (test 0 % wlrl=414) NEUTROPHILS ABSOLUTE COUNT (BEAKER) (test 9.94 K/ L 1.78-5.38 lump=669) LYMPHOCYTES ABSOLUTE COUNT (BEAKER) (test 1.16 K/ L 1.32-3.57 zwwm=274) MONOCYTES ABSOLUTE COUNT (BEAKER) (test 0.93 K/ L 0.30-0.82 dsiq=817) EOSINOPHILS ABSOLUTE COUNT (BEAKER) (test 0.26 K/ L 0.04-0.54 gtmg=641) BASOPHILS ABSOLUTE COUNT (BEAKER) (test 0.05 K/ L 0.01-0.08 fybl=268) IMMATURE GRANULOCYTES-RELATIVE PERCENT (BEAKER) 1 % 0-1 (test hwqs=4691) POCT-GLUCOSE [id number] 07:25:00 Test Item Value Reference Range Comments POC-GLUCOSE METER (BEAKER) 139 mg/dL 70-110 TESTED AT [facility] [address] [facility] (test caiy=4832) [facility] [address] [id number] 04:19:00 Test Item Value Reference Range Comments MAGNESIUM (BEAKER) (test 2.0 mg/dL 1.6-2.6 Specimen slightly hemolyzed ejfp=613) [id number] 04:19:00 Test Item Value Reference Range Comments PHOSPHORUS (BEAKER) (test 3.7 mg/dL 2.3-4.7 Specimen slightly hemolyzed hjpo=317) BASIC METABOLIC [id number] 04:19:00 Test Item Value Reference Range Comments SODIUM (BEAKER) (test 134 meq/L 136-145 rvuv=222) POTASSIUM (BEAKER) (test 4.5 meq/L 3.5-5.1 Specimen slightly jzcd=333) hemolyzed CHLORIDE (BEAKER) (test 102 meq/L 98-107 wmml=345) CO2 (BEAKER) (test 16 meq/L 22-29 joxg=781) BLOOD UREA NITROGEN 40 mg/dL 7-21 (BEAKER) (test zhnt=553) CREATININE (BEAKER) (test 1.94 mg/dL 0.57-1.25 Specimen slightly kgeb=964) hemolyzed GLUCOSE RANDOM (BEAKER) 107 mg/dL 70-105 (test bbcz=437) CALCIUM (BEAKER) (test 8.5 mg/dL 8.4-10.2 oohw=164) EGFR (BEAKER) (test 34 mL/min/1.73 sq m ESTIMATED GFR IS NOT wkvt=4488) ACCURATE CREATININE CLEARANCE IN PREDICTING GLOMERULAR FILTRATION RATE. ESTIMATED GFR IS NOT APPLICABLE FOR DIALYSIS PATIENTS. POCT-GLUCOSE [id number] 21:41:00 Test Item Value Reference Range Comments POC-GLUCOSE METER (BEAKER) 148 mg/dL 70-110 TESTED AT [address] (test mjzd=1346) [place] [address] VANCOMYCIN LEVEL, [id number] 13:28:00 Test Item Value Reference Range Comments VANCOMYCIN RANDOM (BEAKER) (test yegu=967) 19.2 ug/mL Reference Range: No NormalsPOCT-GLUCOSE [id number] 12:59:00 Test Item Value Reference Range Comments POC-GLUCOSE METER (BEAKER) 129 mg/dL 70-110 TESTED AT [place] [id number] [facility] (test vyty=0408) [place] [id number] RAD, CHEST, 1 VIEW, NON [id number] 08:26:00Reason for exam:->shortness of breathFINAL REPORT HISTORY [...] Verified Date/Time : 09/06/2017 08:26:23 Reading Location: [address] Transitional Reading Room POCT- GLUCOSE [id number] 08:17:00 Test Item Value Reference Range Comments POC-GLUCOSE METER (BEAKER) 124 mg/dL 70-110 TESTED AT [facility] [address] [facility] (test cdwv=4276) [facility] [address] CBC W/PLT COUNT & AUTO [id number] 05:36:00 Test Item Value Reference Range Comments WHITE BLOOD CELL COUNT (BEAKER) (test fkrn=412) 10.3 K/ L 3.5-10.5 RED BLOOD CELL COUNT (BEAKER) (test oead=329) 3.41 M/ L 4.63-6.08 HEMOGLOBIN (BEAKER) (test iedn=364) 9.4 GM/DL 13.7-17.5 HEMATOCRIT (BEAKER) (test mdfm=641) 31.5 % 40.1-51.0 MEAN CORPUSCULAR VOLUME (BEAKER) (test jass=150) 92.4 fL 79.0-92.2 MEAN CORPUSCULAR HEMOGLOBIN (BEAKER) (test 27.6 pg 25.7-32.2 dpxu=778) MEAN CORPUSCULAR HEMOGLOBIN CONC (BEAKER) (test 29.8 GM/DL 32.3-36.5 uvhd=850) RED CELL DISTRIBUTION WIDTH (BEAKER) (test 18.5 % 11.6-14.4 kfph=144) PLATELET COUNT (BEAKER) (test eflu=640) 511 K/CU MM 150-450 MEAN PLATELET VOLUME (BEAKER) (test ycmi=638) 9.9 fL 9.4-12.4 NUCLEATED RED BLOOD CELLS (BEAKER) (test 0 /100 WBC 0-0 ioby=618) NEUTROPHILS RELATIVE PERCENT (BEAKER) (test 73 % ppdi=550) LYMPHOCYTES RELATIVE PERCENT (BEAKER) (test 12 % mymm=387) MONOCYTES RELATIVE PERCENT (BEAKER) (test 10 % drzr=347) EOSINOPHILS RELATIVE PERCENT (BEAKER) (test 2 % opnc=303) BASOPHILS RELATIVE PERCENT (BEAKER) (test 1 % otvg=649) NEUTROPHILS ABSOLUTE COUNT (BEAKER) (test 7.50 K/ L 1.78-5.38 ppzd=988) LYMPHOCYTES ABSOLUTE COUNT (BEAKER) (test 1.20 K/ L 1.32-3.57 budq=112) MONOCYTES ABSOLUTE COUNT (BEAKER) (test 1.04 K/ L 0.30-0.82 njvx=509) EOSINOPHILS ABSOLUTE COUNT (BEAKER) (test 0.24 K/ L 0.04-0.54 bmwh=439) BASOPHILS ABSOLUTE COUNT (BEAKER) (test 0.05 K/ L 0.01-0.08 nqmn=844) IMMATURE GRANULOCYTES-RELATIVE PERCENT (BEAKER) 3 % 0-1 (test pwfb=3696) [id number] 05:28:00 Test Item Value Reference Range Comments PHOSPHORUS (BEAKER) (test jshd=178) 3.4 mg/dL 2.3-4.7 [id number] 05:28:00 Test Item Value Reference Range Comments MAGNESIUM (BEAKER) (test gnea=036) 2.0 mg/dL 1.6-2.6 BASIC METABOLIC [id number] 05:28:00 Test Item Value Reference Range Comments SODIUM (BEAKER) (test 137 meq/L 136-145 xkbd=408) POTASSIUM (BEAKER) (test 4.0 meq/L 3.5-5.1 ncju=562) CHLORIDE (BEAKER) (test 97 meq/L 98-107 dwxy=520) CO2 (BEAKER) (test 28 meq/L 22-29 cdin=990) BLOOD UREA NITROGEN 37 mg/dL 7-21 (BEAKER) (test yuin=344) CREATININE (BEAKER) (test 2.02 mg/dL 0.57-1.25 nope=524) GLUCOSE RANDOM (BEAKER) 117 mg/dL 70-105 (test dwdp=310) CALCIUM (BEAKER) (test 8.4 mg/dL 8.4-10.2 mrsj=512) EGFR (BEAKER) (test 32 mL/min/1.73 sq m ESTIMATED GFR IS NOT gcxh=3607) ACCURATE CREATININE CLEARANCE IN PREDICTING GLOMERULAR FILTRATION RATE. ESTIMATED GFR IS NOT APPLICABLE FOR DIALYSIS PATIENTS. [id number] 22:02:00 Test Item Value Reference Range Comments MAGNESIUM (BEAKER) (test cgzt=353) 2.1 mg/dL 1.6-2.6 BASIC METABOLIC [id number] 22:02:00 Test Item Value Reference Range Comments SODIUM (BEAKER) (test 136 meq/L 136-145 ywum=480) POTASSIUM (BEAKER) (test 4.3 meq/L 3.5-5.1 dcnq=912) CHLORIDE (BEAKER) (test 99 meq/L 98-107 syin=542) CO2 (BEAKER) (test 25 meq/L 22-29 eull=770) BLOOD UREA NITROGEN 36 mg/dL 7-21 (BEAKER) (test iwqw=932) CREATININE (BEAKER) (test 1.95 mg/dL 0.57-1.25 toyp=488) GLUCOSE RANDOM (BEAKER) 133 mg/dL 70-105 (test zarr=885) CALCIUM (BEAKER) (test 8.3 mg/dL 8.4-10.2 yzmb=003) EGFR (BEAKER) (test 34 mL/min/1.73 sq m ESTIMATED GFR IS NOT dmsq=3643) ACCURATE CREATININE CLEARANCE IN PREDICTING GLOMERULAR FILTRATION RATE. ESTIMATED GFR IS NOT APPLICABLE FOR DIALYSIS PATIENTS. POCT-GLUCOSE [id number] 21:42:00 Test Item Value Reference Range Comments POC-GLUCOSE METER (BEAKER) 125 mg/dL 70-110 TESTED AT [facility] [address] [facility] (test ufku=6987) [facility] [address] POCT-GLUCOSE [id number] 18:41:00 Test Item Value Reference Range Comments POC-GLUCOSE METER (BEAKER) 150 mg/dL 70-110 TESTED AT [place] [id number] [facility] (test bhao=9357) [facility] [address] POCT-GLUCOSE [id number] 17:53:00 Test Item Value Reference Range Comments POC-GLUCOSE METER (BEAKER) 127 mg/dL 70-110 TESTED AT [facility] [address] [place] [address] (test zlai=6456) [facility] [address] VANCOMYCIN LEVEL, [id number] 15:24:00 Test Item Value Reference Range Comments VANCOMYCIN TROUGH (BEAKER) (test ccdi=190) 27.4 ug/mL 10.0-20.0 Please draw trough 30 minutes prior to vancomycin dose on 09/05.BASIC METABOLIC [id number] 12:57:00 Test Item Value Reference Range Comments SODIUM (BEAKER) (test 136 meq/L 136-145 cgut=148) POTASSIUM (BEAKER) (test 3.9 meq/L 3.5-5.1 cigq=281) CHLORIDE (BEAKER) (test 100 meq/L 98-107 mmmo=077) CO2 (BEAKER) (test 24 meq/L 22-29 fodh=638) BLOOD UREA NITROGEN 34 mg/dL 7-21 (BEAKER) (test ayht=124) CREATININE (BEAKER) (test 2.22 mg/dL 0.57-1.25 tynr=560) GLUCOSE RANDOM (BEAKER) 123 mg/dL 70-105 (test hzmn=425) CALCIUM (BEAKER) (test 8.4 mg/dL 8.4-10.2 fojg=499) EGFR (BEAKER) (test 29 mL/min/1.73 sq m ESTIMATED GFR IS NOT kcbf=5273) ACCURATE CREATININE CLEARANCE IN PREDICTING GLOMERULAR FILTRATION RATE. ESTIMATED GFR IS NOT APPLICABLE FOR DIALYSIS PATIENTS. [id number] 12:46:00 Test Item Value Reference Range Comments MAGNESIUM (BEAKER) (test mqpo=992) 2.1 mg/dL 1.6-2.6 POCT-GLUCOSE [id number] 09:45:00 Test Item Value Reference Range Comments POC-GLUCOSE METER (BEAKER) 134 mg/dL 70-110 TESTED AT [address] (test ithm=9811) [facility] [address] RAD, CHEST, 1 VIEW, NON [id number] 08:44:00Reason for exam:->shortness of breathFINAL REPORT Chest [...] MDReport Verified Date/Time: 09/05/2017 08:44:03 Reading Location: [facility] Radiology Reading Room URINE [id number] 08:13:00 Test Item Value Reference Range Comments CULTURE (BEAKER) (test tdvl=1680) No growth GRAM STAIN RESULT (BEAKER) (test 1+ WBCs hbit=5231) GRAM STAIN RESULT (BEAKER) (test No organisms seen yddj=07890) SURGICALLY OBTAINED CULTURE + GRAM [id number] 08:04:00 Test Item Value Reference Range Comments CULTURE (BEAKER) (test ziin=7307) No growth GRAM STAIN RESULT (BEAKER) (test <1+ WBCs wrsq=1378) GRAM STAIN RESULT (BEAKER) (test No organisms seen avlv=78793) SURGICALLY OBTAINED CULTURE + GRAM [id number] 08:03:00 Test Item Value Reference Range Comments CULTURE (BEAKER) (test ihty=1452) No growth GRAM STAIN RESULT (BEAKER) (test No WBCs jewf=0925) GRAM STAIN RESULT (BEAKER) (test No organisms seen iobe=29321) CBC WITH PLATELET COUNT + MANUAL [id number] 04:36:00 Test Item Value Reference Range Comments WHITE BLOOD CELL COUNT (BEAKER) (test axaa=709) 10.1 K/ L 3.5-10.5 RED BLOOD CELL COUNT (BEAKER) (test oclf=297) 3.10 M/ L 4.63-6.08 HEMOGLOBIN (BEAKER) (test aoab=962) 8.6 GM/DL 13.7-17.5 HEMATOCRIT (BEAKER) (test mmuf=487) 27.8 % 40.1-51.0 MEAN CORPUSCULAR VOLUME (BEAKER) (test qbpn=243) 89.7 fL 79.0-92.2 MEAN CORPUSCULAR HEMOGLOBIN (BEAKER) (test 27.7 pg 25.7-32.2 jzsm=493) MEAN CORPUSCULAR HEMOGLOBIN CONC (BEAKER) (test 30.9 GM/DL 32.3-36.5 yqrl=506) RED CELL DISTRIBUTION WIDTH (BEAKER) (test 17.8 % 11.6-14.4 unvx=945) PLATELET COUNT (BEAKER) (test vltk=635) 439 K/CU MM 150-450 MEAN PLATELET VOLUME (BEAKER) (test hcec=569) 9.2 fL 9.4-12.4 NUCLEATED RED BLOOD CELLS (BEAKER) (test 1 /100 WBC 0-0 nrzj=276) IMMATURE GRANULOCYTES-RELATIVE PERCENT (BEAKER) 3 % 0-1 (test uhov=6265) BASIC METABOLIC [id number] 03:37:00 Test Item Value Reference Range Comments SODIUM (BEAKER) (test 136 meq/L 136-145 dmjk=912) POTASSIUM (BEAKER) (test 3.8 meq/L 3.5-5.1 ugja=556) CHLORIDE (BEAKER) (test 100 meq/L 98-107 ygsx=254) CO2 (BEAKER) (test 24 meq/L 22-29 fhte=182) BLOOD UREA NITROGEN 35 mg/dL 7-21 (BEAKER) (test wtrn=799) CREATININE (BEAKER) (test 2.30 mg/dL 0.57-1.25 izja=607) GLUCOSE RANDOM (BEAKER) 118 mg/dL 70-105 (test srtt=820) CALCIUM (BEAKER) (test 8.1 mg/dL 8.4-10.2 wqyt=986) EGFR (BEAKER) (test 28 mL/min/1.73 sq m ESTIMATED GFR IS NOT jpxu=0439) ACCURATE CREATININE CLEARANCE IN PREDICTING GLOMERULAR FILTRATION RATE. ESTIMATED GFR IS NOT APPLICABLE FOR DIALYSIS PATIENTS. [id number] 03:31:00 Test Item Value Reference Range Comments PHOSPHORUS (BEAKER) (test isol=719) 3.6 mg/dL 2.3-4.7 [id number] 03:31:00 Test Item Value Reference Range Comments MAGNESIUM (BEAKER) (test qqsy=375) 2.3 mg/dL 1.6-2.6 CBC W/PLT COUNT & AUTO [id number] 03:20:00 Test Item Value Reference Range Comments WHITE BLOOD CELL COUNT (BEAKER) (test afhg=696) 10.1 K/ L 3.5-10.5 RED BLOOD CELL COUNT (BEAKER) (test gtcj=316) 3.10 M/ L 4.63-6.08 HEMOGLOBIN (BEAKER) (test hfjz=773) 8.6 GM/DL 13.7-17.5 HEMATOCRIT (BEAKER) (test kazz=269) 27.8 % 40.1-51.0 MEAN CORPUSCULAR VOLUME (BEAKER) (test rnay=325) 89.7 fL 79.0-92.2 MEAN CORPUSCULAR HEMOGLOBIN (BEAKER) (test 27.7 pg 25.7-32.2 krvq=591) MEAN CORPUSCULAR HEMOGLOBIN CONC (BEAKER) (test 30.9 GM/DL 32.3-36.5 zlrq=160) RED CELL DISTRIBUTION WIDTH (BEAKER) (test 17.8 % 11.6-14.4 bqma=392) PLATELET COUNT (BEAKER) (test ijkd=902) 439 K/CU MM 150-450 MEAN PLATELET VOLUME (BEAKER) (test yocb=720) 9.2 fL 9.4-12.4 NUCLEATED RED BLOOD CELLS (BEAKER) (test 1 /100 WBC 0-0 zsyr=997) IMMATURE GRANULOCYTES-RELATIVE PERCENT (BEAKER) 3 % 0-1 (test hqtj=0540) BASIC METABOLIC [id number] 22:33:00 Test Item Value Reference Range Comments SODIUM (BEAKER) (test 135 meq/L 136-145 xnvx=291) POTASSIUM (BEAKER) (test 3.8 meq/L 3.5-5.1 kgxc=768) CHLORIDE (BEAKER) (test 101 meq/L 98-107 zcif=891) CO2 (BEAKER) (test 24 meq/L 22-29 cfzg=517) BLOOD UREA NITROGEN 36 mg/dL 7-21 (BEAKER) (test fdfv=883) CREATININE (BEAKER) (test 2.26 mg/dL 0.57-1.25 ixsk=718) GLUCOSE RANDOM (BEAKER) 119 mg/dL 70-105 (test uyfp=323) CALCIUM (BEAKER) (test 7.9 mg/dL 8.4-10.2 txhq=011) EGFR (BEAKER) (test 29 mL/min/1.73 sq m ESTIMATED GFR IS NOT tavb=8839) ACCURATE CREATININE CLEARANCE IN PREDICTING GLOMERULAR FILTRATION RATE. ESTIMATED GFR IS NOT APPLICABLE FOR DIALYSIS PATIENTS. [id number] 22:28:00 Test Item Value Reference Range Comments MAGNESIUM (BEAKER) (test rcmr=906) 1.8 mg/dL 1.6-2.6 POCT-GLUCOSE [id number] 21:08:00 Test Item Value Reference Range Comments POC-GLUCOSE METER (BEAKER) 111 mg/dL 70-110 TESTED AT [address] (test czfl=3091) [place] [id number] CBC (HEMOGRAM ONLY)2017-09-04 19:09:00 Test Item Value Reference Range Comments WHITE BLOOD CELL COUNT (BEAKER) (test hklu=760) 9.3 K/ L 3.5-10.5 RED BLOOD CELL COUNT (BEAKER) (test kmwl=461) 3.02 M/ L 4.63-6.08 HEMOGLOBIN (BEAKER) (test eygw=323) 8.5 GM/DL 13.7-17.5 HEMATOCRIT (BEAKER) (test uxbv=349) 27.2 % 40.1-51.0 MEAN CORPUSCULAR VOLUME (BEAKER) (test vgsd=598) 90.1 fL 79.0-92.2 MEAN CORPUSCULAR HEMOGLOBIN (BEAKER) (test 28.1 pg 25.7-32.2 zyhx=809) MEAN CORPUSCULAR HEMOGLOBIN CONC (BEAKER) (test 31.3 GM/DL 32.3-36.5 suvm=053) RED CELL DISTRIBUTION WIDTH (BEAKER) (test 17.8 % 11.6-14.4 qjso=246) PLATELET COUNT (BEAKER) (test zbaf=642) 463 K/CU MM 150-450 MEAN PLATELET VOLUME (BEAKER) (test xxpp=437) 9.3 fL 9.4-12.4 NUCLEATED RED BLOOD CELLS (BEAKER) (test 0 /100 WBC 0-0 snqz=853) POCT-GLUCOSE [id number] 17:44:00 Test Item Value Reference Range Comments POC-GLUCOSE METER (BEAKER) 139 mg/dL 70-110 TESTED AT [address] (test uihl=2731) [place] [id number] POCT-GLUCOSE [id number] 11:39:00 Test Item Value Reference Range Comments POC-GLUCOSE METER (BEAKER) 142 mg/dL 70-110 TESTED AT [facility] [address] (test eitb=8680) [facility] [id number] BASIC METABOLIC [id number] 10:56:00 Test Item Value Reference Range Comments SODIUM (BEAKER) (test 135 meq/L 136-145 yjvz=423) POTASSIUM (BEAKER) (test 3.9 meq/L 3.5-5.1 iyuj=095) CHLORIDE (BEAKER) (test 102 meq/L 98-107 tllx=143) CO2 (BEAKER) (test 24 meq/L 22-29 ydwx=387) BLOOD UREA NITROGEN 37 mg/dL 7-21 (BEAKER) (test azqi=582) CREATININE (BEAKER) (test 2.53 mg/dL 0.57-1.25 gfrg=399) GLUCOSE RANDOM (BEAKER) 127 mg/dL 70-105 (test wqss=584) CALCIUM (BEAKER) (test 7.8 mg/dL 8.4-10.2 ceok=801) EGFR (BEAKER) (test 25 mL/min/1.73 sq m ESTIMATED GFR IS NOT hkxn=2958) ACCURATE CREATININE CLEARANCE IN PREDICTING GLOMERULAR FILTRATION RATE. ESTIMATED GFR IS NOT APPLICABLE FOR DIALYSIS PATIENTS. B-TYPE NATRIURETIC FACTOR (BNP)2017-09-04 10:54:00 Test Item Value Reference Range Comments B-TYPE NATRIURETIC PEPTIDE (BEAKER) (test 360 pg/mL 0-100 esvi=176) [id number] 10:46:00 Test Item Value Reference Range Comments PHOSPHORUS (BEAKER) (test uoqs=736) 4.1 mg/dL 2.3-4.7 [id number] 10:46:00 Test Item Value Reference Range Comments MAGNESIUM (BEAKER) (test ejhg=276) 2.1 mg/dL 1.6-2.6 RAD, CHEST, 1 VIEW, NON [id number] 08:32:00Reason for exam:->shortness of breathShould this be [...] Location: [facility] Radiology Reading Room POCT-GLUCOSE [id number] 08: 02:00 Test Item Value Reference Range Comments POC-GLUCOSE METER (BEAKER) 144 mg/dL 70-110 TESTED AT [facility] [address] (test udft=4611) [facility] [address] BASIC METABOLIC [id number] 04:29:00 Test Item Value Reference Range Comments SODIUM (BEAKER) (test 133 meq/L 136-145 uxeb=802) POTASSIUM (BEAKER) (test 3.7 meq/L 3.5-5.1 ojni=605) CHLORIDE (BEAKER) (test 101 meq/L 98-107 rroz=289) CO2 (BEAKER) (test 22 meq/L 22-29 ugko=961) BLOOD UREA NITROGEN 37 mg/dL 7-21 (BEAKER) (test qsts=527) CREATININE (BEAKER) (test 2.65 mg/dL 0.57-1.25 kvpo=641) GLUCOSE RANDOM (BEAKER) 136 mg/dL 70-105 (test lipk=817) CALCIUM (BEAKER) (test 7.6 mg/dL 8.4-10.2 vajk=349) EGFR (BEAKER) (test 24 mL/min/1.73 sq m ESTIMATED GFR IS NOT hofl=5680) ACCURATE CREATININE CLEARANCE IN PREDICTING GLOMERULAR FILTRATION RATE. ESTIMATED GFR IS NOT APPLICABLE FOR DIALYSIS PATIENTS. [id number] 04:25:00 Test Item Value Reference Range Comments PHOSPHORUS (BEAKER) (test pzmj=585) 4.2 mg/dL 2.3-4.7 [id number] 04:25:00 Test Item Value Reference Range Comments MAGNESIUM (BEAKER) (test crrf=129) 2.0 mg/dL 1.6-2.6 CBC W/PLT COUNT & AUTO [id number] 03:30:00 Test Item Value Reference Range Comments WHITE BLOOD CELL COUNT (BEAKER) (test isqp=939) 9.1 K/ L 3.5-10.5 RED BLOOD CELL COUNT (BEAKER) (test exwi=128) 2.54 M/ L 4.63-6.08 HEMOGLOBIN (BEAKER) (test idtd=738) 7.0 GM/DL 13.7-17.5 HEMATOCRIT (BEAKER) (test uzdj=055) 23.4 % 40.1-51.0 MEAN CORPUSCULAR VOLUME (BEAKER) (test jwaq=115) 92.1 fL 79.0-92.2 MEAN CORPUSCULAR HEMOGLOBIN (BEAKER) (test 27.6 pg 25.7-32.2 lxaf=844) MEAN CORPUSCULAR HEMOGLOBIN CONC (BEAKER) (test 29.9 GM/DL 32.3-36.5 agqs=392) RED CELL DISTRIBUTION WIDTH (BEAKER) (test 17.2 % 11.6-14.4 lmha=109) PLATELET COUNT (BEAKER) (test muym=487) 407 K/CU MM 150-450 MEAN PLATELET VOLUME (BEAKER) (test itnc=306) 9.2 fL 9.4-12.4 NUCLEATED RED BLOOD CELLS (BEAKER) (test 0 /100 WBC 0-0 ylgu=806) NEUTROPHILS RELATIVE PERCENT (BEAKER) (test 75 % kkpv=005) LYMPHOCYTES RELATIVE PERCENT (BEAKER) (test 10 % vzyo=366) MONOCYTES RELATIVE PERCENT (BEAKER) (test 10 % fpit=791) EOSINOPHILS RELATIVE PERCENT (BEAKER) (test 1 % ixjh=032) BASOPHILS RELATIVE PERCENT (BEAKER) (test 0 % uwna=382) NEUTROPHILS ABSOLUTE COUNT (BEAKER) (test 6.78 K/ L 1.78-5.38 xjtk=195) LYMPHOCYTES ABSOLUTE COUNT (BEAKER) (test 0.92 K/ L 1.32-3.57 khxa=990) MONOCYTES ABSOLUTE COUNT (BEAKER) (test 0.89 K/ L 0.30-0.82 xpus=111) EOSINOPHILS ABSOLUTE COUNT (BEAKER) (test 0.13 K/ L 0.04-0.54 upms=318) BASOPHILS ABSOLUTE COUNT (BEAKER) (test 0.03 K/ L 0.01-0.08 mrff=101) IMMATURE GRANULOCYTES-RELATIVE PERCENT (BEAKER) 3 % 0-1 (test hdse=8400) POCT-GLUCOSE [id number] 23:06:00 Test Item Value Reference Range Comments POC-GLUCOSE METER (BEAKER) 155 mg/dL 70-110 TESTED AT [address] (test fpyu=9238) [place] [address] POCT-GLUCOSE [id number] 17:12:00 Test Item Value Reference Range Comments POC-GLUCOSE METER (BEAKER) 157 mg/dL 70-110 TESTED AT [address] (test ozxs=7284) [place] [address] SPIN/CONCENTRATION [id number] 16:25:00 Test Item Value Reference Range Comments CONCENTRATION CHARGED (BEAKER) (test hlpe=9208) Done POCT-GLUCOSE [id number] 12:16:00 Test Item Value Reference Range Comments POC-GLUCOSE METER (BEAKER) 163 mg/dL 70-110 TESTED AT [address] (test iunm=5483) [place] [address] [id number] 11:44:00 Test Item Value Reference Range Comments FERRITIN (BEAKER) (test xvqr=280) 400 ng/mL 5-275 IRON, TIBC, % SAT. (WITHOUT FERRITIN)2017-09-03 11:24:00 Test Item Value Reference Range Comments IRON (BEAKER) (test stpv=872) 38 ug/dL 40-160 TOTAL IRON BINDING CAPACITY (BEAKER) (test 168 ug/dL 250-450 dnju=851) IRON % SATURATION (2) (BEAKER) (test mdka=8737) 23 % 20-55 RETICULOCYTE [id number] 11:10:00 Test Item Value Reference Range Comments RETICULOCYTE COUNT PCT (BEAKER) (test zuaj=275) 3.2 % 0.5-1.8 RAD, CHEST, 1 VIEW, NON [id number] 11:05:00Reason for exam:->shortness of breathFINAL REPORT Chest [...] MDReport Verified Date/Time: 09/03/2017 11:05:13 Reading Location: [facility] Radiology Reading Room CB (HEMOGRAM ONLY)2017-09-03 10:57:00 Test Item Value Reference Range Comments WHITE BLOOD CELL COUNT (BEAKER) (test hbdy=828) 9.9 K/ L 3.5-10.5 RED BLOOD CELL COUNT (BEAKER) (test trvx=250) 2.71 M/ L 4.63-6.08 HEMOGLOBIN (BEAKER) (test imcz=020) 7.6 GM/DL 13.7-17.5 HEMATOCRIT (BEAKER) (test adbd=642) 25.6 % 40.1-51.0 MEAN CORPUSCULAR VOLUME (BEAKER) (test ujor=681) 94.5 fL 79.0-92.2 MEAN CORPUSCULAR HEMOGLOBIN (BEAKER) (test 28.0 pg 25.7-32.2 zjbi=959) MEAN CORPUSCULAR HEMOGLOBIN CONC (BEAKER) (test 29.7 GM/DL 32.3-36.5 jebg=917) RED CELL DISTRIBUTION WIDTH (BEAKER) (test 16.9 % 11.6-14.4 akbl=896) PLATELET COUNT (BEAKER) (test rzao=769) 438 K/CU MM 150-450 MEAN PLATELET VOLUME (BEAKER) (test kvqq=205) 9.9 fL 9.4-12.4 NUCLEATED RED BLOOD CELLS (BEAKER) (test 0 /100 WBC 0-0 dmpn=249) HEMOGLOBIN AND [id number] 06:14:00 Test Item Value Reference Range Comments HEMOGLOBIN (BEAKER) (test rpnf=001) 6.7 GM/DL 13.7-17.5 HEMATOCRIT (BEAKER) (test rppk=371) 23.0 % 40.1-51.0 POCT-GLUCOSE [id number] 06:08:00 Test Item Value Reference Range Comments POC-GLUCOSE METER (BEAKER) 155 mg/dL 70-110 TESTED AT [facility] [address] (test ddtv=1493) [facility] [address] BASIC METABOLIC [id number] 03:44:00 Test Item Value Reference Range Comments SODIUM (BEAKER) (test 136 meq/L 136-145 pmbe=053) POTASSIUM (BEAKER) (test 4.4 meq/L 3.5-5.1 ctll=093) CHLORIDE (BEAKER) (test 104 meq/L 98-107 bads=802) CO2 (BEAKER) (test 21 meq/L 22-29 yjgd=045) BLOOD UREA NITROGEN 31 mg/dL 7-21 (BEAKER) (test mvub=598) CREATININE (BEAKER) (test 2.73 mg/dL 0.57-1.25 umbr=754) GLUCOSE RANDOM (BEAKER) 156 mg/dL 70-105 (test xeor=464) CALCIUM (BEAKER) (test 7.7 mg/dL 8.4-10.2 qnln=976) EGFR (BEAKER) (test 23 mL/min/1.73 sq m ESTIMATED GFR IS NOT jwny=4569) ACCURATE CREATININE CLEARANCE IN PREDICTING GLOMERULAR FILTRATION RATE. ESTIMATED GFR IS NOT APPLICABLE FOR DIALYSIS PATIENTS. VANCOMYCIN LEVEL, [id number] 03:41:00 Test Item Value Reference Range Comments VANCOMYCIN RANDOM (BEAKER) (test nlge=989) 16.7 ug/mL Reference Range: No [id number] 03:40:00 Test Item Value Reference Range Comments PHOSPHORUS (BEAKER) (test aizz=774) 5.2 mg/dL 2.3-4.7 [id number] 03:40:00 Test Item Value Reference Range Comments MAGNESIUM (BEAKER) (test hwzu=230) 1.7 mg/dL 1.6-2.6 CBC W/PLT COUNT & AUTO [id number] 03:39:00 Test Item Value Reference Range Comments WHITE BLOOD CELL COUNT (BEAKER) (test dvzf=504) 8.6 K/ L 3.5-10.5 RED BLOOD CELL COUNT (BEAKER) (test ipjt=120) 2.50 M/ L 4.63-6.08 HEMOGLOBIN (BEAKER) (test juyu=084) 6.9 GM/DL 13.7-17.5 HEMATOCRIT (BEAKER) (test rmul=493) 23.6 % 40.1-51.0 MEAN CORPUSCULAR VOLUME (BEAKER) (test alfw=701) 94.4 fL 79.0-92.2 MEAN CORPUSCULAR HEMOGLOBIN (BEAKER) (test 27.6 pg 25.7-32.2 cjrq=383) MEAN CORPUSCULAR HEMOGLOBIN CONC (BEAKER) (test 29.2 GM/DL 32.3-36.5 hgcg=877) RED CELL DISTRIBUTION WIDTH (BEAKER) (test 17.2 % 11.6-14.4 ebkd=649) PLATELET COUNT (BEAKER) (test xaor=497) 454 K/CU MM 150-450 MEAN PLATELET VOLUME (BEAKER) (test texx=786) 10.0 fL 9.4-12.4 NUCLEATED RED BLOOD CELLS (BEAKER) (test 0 /100 WBC 0-0 xxip=834) NEUTROPHILS RELATIVE PERCENT (BEAKER) (test 78 % mmee=667) LYMPHOCYTES RELATIVE PERCENT (BEAKER) (test 11 % dvuc=398) MONOCYTES RELATIVE PERCENT (BEAKER) (test 10 % euuj=656) EOSINOPHILS RELATIVE PERCENT (BEAKER) (test 0 % ziok=838) BASOPHILS RELATIVE PERCENT (BEAKER) (test 0 % vrkr=579) NEUTROPHILS ABSOLUTE COUNT (BEAKER) (test 6.71 K/ L 1.78-5.38 muju=297) LYMPHOCYTES ABSOLUTE COUNT (BEAKER) (test 0.93 K/ L 1.32-3.57 jlnn=025) MONOCYTES ABSOLUTE COUNT (BEAKER) (test 0.83 K/ L 0.30-0.82 yphk=793) EOSINOPHILS ABSOLUTE COUNT (BEAKER) (test 0.02 K/ L 0.04-0.54 yjbj=907) BASOPHILS ABSOLUTE COUNT (BEAKER) (test 0.01 K/ L 0.01-0.08 fkxy=869) IMMATURE GRANULOCYTES-RELATIVE PERCENT (BEAKER) 1 % 0-1 (test yghl=0879) POCT-GLUCOSE [id number] 23:21:00 Test Item Value Reference Range Comments POC-GLUCOSE METER (BEAKER) 168 mg/dL 70-110 TESTED AT [facility] [address] (test hxcc=0795) [facility] [address] URINALYSIS W/ [id number] 22:42:00 Test Item Value Reference Range Comments COLOR (BEAKER) (test uooc=473) Yellow CLARITY (BEAKER) (test oxzw=401) Hazy SPECIFIC GRAVITY UA (BEAKER) (test ddlz=315) 1.018 1.001-1.035 PH UA (BEAKER) (test qdgl=568) 5.0 5.0-8.0 PROTEIN UA (BEAKER) (test pvlq=567) 50 mg/dL Negative GLUCOSE UA (BEAKER) (test wzyk=507) Negative Negative KETONES UA (BEAKER) (test cnht=126) Negative Negative BILIRUBIN UA (BEAKER) (test puus=084) Negative Negative BLOOD UA (BEAKER) (test ckxr=130) Negative Negative NITRITE UA (BEAKER) (test ylfn=052) Negative Negative LEUKOCYTE ESTERASE UA (BEAKER) (test zjuf=040) Large Negative UROBILINOGEN UA (BEAKER) (test yeqn=776) 2.0 mg/dL 0.2-1.0 RBC UA (BEAKER) (test ubye=973) 0 /HPF WBC UA (BEAKER) (test lxcr=899) 45 /HPF MUCUS (BEAKER) (test ozlg=8328) Occasional SQUAMOUS EPITHELIAL (BEAKER) (test atkq=354) 1 /HPF SOURCE(BEAKER) (test muoo=4245) BASIC METABOLIC [id number] 22:37:00 Test Item Value Reference Range Comments SODIUM (BEAKER) (test 135 meq/L 136-145 csud=528) POTASSIUM (BEAKER) (test 4.6 meq/L 3.5-5.1 lqsj=686) CHLORIDE (BEAKER) (test 105 meq/L 98-107 soar=910) CO2 (BEAKER) (test 21 meq/L 22-29 bloe=557) BLOOD UREA NITROGEN 30 mg/dL 7-21 (BEAKER) (test fdpo=548) CREATININE (BEAKER) (test 2.40 mg/dL 0.57-1.25 isld=192) GLUCOSE RANDOM (BEAKER) 158 mg/dL 70-105 (test qtrh=899) CALCIUM (BEAKER) (test 7.8 mg/dL 8.4-10.2 cdna=693) EGFR (BEAKER) (test 27 mL/min/1.73 sq m ESTIMATED GFR IS NOT svls=7811) ACCURATE CREATININE CLEARANCE IN PREDICTING GLOMERULAR FILTRATION RATE. ESTIMATED GFR IS NOT APPLICABLE FOR DIALYSIS PATIENTS. [id number] 22:34:00 Test Item Value Reference Range Comments MAGNESIUM (BEAKER) (test giua=912) 1.3 mg/dL 1.6-2.6 LACTIC ACID, ARTERIAL, WHOLE [id number] 22:30:00 Test Item Value Reference Range Comments LACTATE BLOOD ARTERIAL (2) (BEAKER) (test 1.9 mmol/L 0.5-2.2 medi=8312) Effective 09/27/2015: Units/Reference Range ChangeNew: 0.5-2.2 mmol/L Previous: 5 -20 mg/dLHEPATIC FUNCTION [id number] 20:18:00 Test Item Value Reference Range Comments TOTAL PROTEIN (BEAKER) (test janz=709) 6.2 gm/dL 6.0-8.3 ALBUMIN (BEAKER) (test rhbd=4151) 2.4 g/dL 3.5-5.0 BILIRUBIN TOTAL (BEAKER) (test loan=119) 0.5 mg/dL 0.2-1.2 BILIRUBIN DIRECT (BEAKER) (test rpuu=302) 0.3 mg/dL 0.1-0.5 ALKALINE PHOSPHATASE (BEAKER) (test vqvj=506) 82 U/L 40-150 AST (SGOT) (BEAKER) (test lniz=455) 36 U/L 5-34 ALT (SGPT) (BEAKER) (test gejp=066) 29 U/L 6-55 LACTIC ACID, VENOUS, WHOLE [id number] 20:13:00 Test Item Value Reference Range Comments LACTATE BLOOD VENOUS (2) (BEAKER) (test 2.0 mmol/L 0.5-2.2 ogfb=0126) Effective 09/27/2015: Units/Reference Range ChangeNew: 0.5-2.2 mmol/L Previous: 5 -20 mg/dLBASIC METABOLIC [id number] 15:01:00 Test Item Value Reference Range Comments SODIUM (BEAKER) (test 135 meq/L 136-145 qxfa=009) POTASSIUM (BEAKER) (test 4.3 meq/L 3.5-5.1 zrxg=786) CHLORIDE (BEAKER) (test 102 meq/L 98-107 disd=724) CO2 (BEAKER) (test 22 meq/L 22-29 vxec=612) BLOOD UREA NITROGEN 27 mg/dL 7-21 (BEAKER) (test acdw=381) CREATININE (BEAKER) (test 1.97 mg/dL 0.57-1.25 yvkh=895) GLUCOSE RANDOM (BEAKER) 185 mg/dL 70-105 (test pbqg=751) CALCIUM (BEAKER) (test 7.9 mg/dL 8.4-10.2 pgob=586) EGFR (BEAKER) (test 33 mL/min/1.73 sq m ESTIMATED GFR IS NOT bkcz=5823) ACCURATE CREATININE CLEARANCE IN PREDICTING GLOMERULAR FILTRATION RATE. ESTIMATED GFR IS NOT APPLICABLE FOR DIALYSIS PATIENTS. [id number] 14:58:00 Test Item Value Reference Range Comments PHOSPHORUS (BEAKER) (test litn=403) 5.2 mg/dL 2.3-4.7 [id number] 14:58:00 Test Item Value Reference Range Comments MAGNESIUM (BEAKER) (test hdcz=341) 1.4 mg/dL 1.6-2.6 BASIC METABOLIC [id number] 14:49:00 Test Item Value Reference Range Comments SODIUM (BEAKER) (test 134 meq/L 136-145 xusd=872) POTASSIUM (BEAKER) (test 4.4 meq/L 3.5-5.1 qmmm=547) CHLORIDE (BEAKER) (test 102 meq/L 98-107 srxh=606) CO2 (BEAKER) (test 22 meq/L 22-29 byit=896) BLOOD UREA NITROGEN 27 mg/dL 7-21 (BEAKER) (test dcwu=668) CREATININE (BEAKER) (test 1.96 mg/dL 0.57-1.25 gvct=854) GLUCOSE RANDOM (BEAKER) 184 mg/dL 70-105 (test zslj=413) CALCIUM (BEAKER) (test 7.9 mg/dL 8.4-10.2 abzg=514) EGFR (BEAKER) (test 34 mL/min/1.73 sq m ESTIMATED GFR IS NOT kyhd=7910) ACCURATE CREATININE CLEARANCE IN PREDICTING GLOMERULAR FILTRATION RATE. ESTIMATED GFR IS NOT APPLICABLE FOR DIALYSIS PATIENTS. LACTIC ACID, ARTERIAL, WHOLE [id number] 14:35:00 Test Item Value Reference Range Comments LACTATE BLOOD ARTERIAL (2) (BEAKER) (test 2.6 mmol/L 0.5-2.2 xjfi=6374) Effective 09/27/2015: Units/Reference Range ChangeNew: 0.5-2.2 mmol/L Previous: 5 -20 mg/dLPROTHROMBIN [id number] 14:27:00 Test Item Value Reference Range Comments PROTIME (BEAKER) (test hxnd=659) 21.3 seconds 11.7-14.7 INR (BEAKER) (test ouax=743) 1.8 <=5.9 RECOMMENDED COUMADIN/WARFARIN INR THERAPY RANGESSTANDARD DOSE: 2.0 - 3.0 Includes: PROPHYLAXIS forvenous thrombosis, systemic embolization; TREATMENT for venous thrombosis and/or pulmonary embolus.HIGH RISK: Target INR is 2.5-3.5 for patients with mechanical heart valves.[id number] 14:27:00 Test Item Value Reference Range Comments PARTIAL THROMBOPLASTIN TIME (BEAKER) (test 37.6 seconds 22.5-36.0 odcz=221) CBC W/PLT COUNT & AUTO [id number] 14:20:00 Test Item Value Reference Range Comments WHITE BLOOD CELL COUNT (BEAKER) (test rhuc=266) 13.7 K/ L 3.5-10.5 RED BLOOD CELL COUNT (BEAKER) (test aejl=511) 3.16 M/ L 4.63-6.08 HEMOGLOBIN (BEAKER) (test prrn=731) 8.8 GM/DL 13.7-17.5 HEMATOCRIT (BEAKER) (test mkvt=737) 29.9 % 40.1-51.0 MEAN CORPUSCULAR VOLUME (BEAKER) (test txnk=630) 94.6 fL 79.0-92.2 MEAN CORPUSCULAR HEMOGLOBIN (BEAKER) (test 27.8 pg 25.7-32.2 tfig=944) MEAN CORPUSCULAR HEMOGLOBIN CONC (BEAKER) (test 29.4 GM/DL 32.3-36.5 buop=019) RED CELL DISTRIBUTION WIDTH (BEAKER) (test 16.8 % 11.6-14.4 rxun=303) PLATELET COUNT (BEAKER) (test exkn=666) 583 K/CU MM 150-450 MEAN PLATELET VOLUME (BEAKER) (test hljf=114) 10.0 fL 9.4-12.4 NUCLEATED RED BLOOD CELLS (BEAKER) (test 0 /100 WBC 0-0 nhfi=517) NEUTROPHILS RELATIVE PERCENT (BEAKER) (test 80 % rmgh=865) LYMPHOCYTES RELATIVE PERCENT (BEAKER) (test 7 % dong=428) MONOCYTES RELATIVE PERCENT (BEAKER) (test 11 % pcvc=365) EOSINOPHILS RELATIVE PERCENT (BEAKER) (test 0 % pfgn=017) BASOPHILS RELATIVE PERCENT (BEAKER) (test 0 % cmyl=441) NEUTROPHILS ABSOLUTE COUNT (BEAKER) (test 11.04 K/ L 1.78-5.38 jxix=208) LYMPHOCYTES ABSOLUTE COUNT (BEAKER) (test 0.93 K/ L 1.32-3.57 zdzj=196) MONOCYTES ABSOLUTE COUNT (BEAKER) (test 1.55 K/ L 0.30-0.82 dipq=687) EOSINOPHILS ABSOLUTE COUNT (BEAKER) (test 0.01 K/ L 0.04-0.54 iyvj=118) BASOPHILS ABSOLUTE COUNT (BEAKER) (test 0.01 K/ L 0.01-0.08 igoq=138) IMMATURE GRANULOCYTES-RELATIVE PERCENT (BEAKER) 1 % 0-1 (test kvet=6535) CBC W/PLT COUNT & AUTO [id number] 14:15:00 Test Item Value Reference Range Comments WHITE BLOOD CELL COUNT (BEAKER) (test cswg=174) 13.8 K/ L 3.5-10.5 RED BLOOD CELL COUNT (BEAKER) (test cfsz=264) 3.22 M/ L 4.63-6.08 HEMOGLOBIN (BEAKER) (test pyaf=124) 8.9 GM/DL 13.7-17.5 HEMATOCRIT (BEAKER) (test lzys=780) 30.5 % 40.1-51.0 MEAN CORPUSCULAR VOLUME (BEAKER) (test hqqf=976) 94.7 fL 79.0-92.2 MEAN CORPUSCULAR HEMOGLOBIN (BEAKER) (test 27.6 pg 25.7-32.2 mhae=671) MEAN CORPUSCULAR HEMOGLOBIN CONC (BEAKER) (test 29.2 GM/DL 32.3-36.5 qiwj=285) RED CELL DISTRIBUTION WIDTH (BEAKER) (test 16.9 % 11.6-14.4 vqip=569) PLATELET COUNT (BEAKER) (test kxfu=984) 578 K/CU MM 150-450 MEAN PLATELET VOLUME (BEAKER) (test qbng=591) 9.9 fL 9.4-12.4 NUCLEATED RED BLOOD CELLS (BEAKER) (test 0 /100 WBC 0-0 dguj=189) NEUTROPHILS RELATIVE PERCENT (BEAKER) (test 82 % amwd=381) LYMPHOCYTES RELATIVE PERCENT (BEAKER) (test 6 % dtwb=749) MONOCYTES RELATIVE PERCENT (BEAKER) (test 11 % kdzs=137) EOSINOPHILS RELATIVE PERCENT (BEAKER) (test 0 % ofop=329) BASOPHILS RELATIVE PERCENT (BEAKER) (test 0 % tgpr=028) NEUTROPHILS ABSOLUTE COUNT (BEAKER) (test 11.24 K/ L 1.78-5.38 goes=031) LYMPHOCYTES ABSOLUTE COUNT (BEAKER) (test 0.86 K/ L 1.32-3.57 gzhn=963) MONOCYTES ABSOLUTE COUNT (BEAKER) (test 1.49 K/ L 0.30-0.82 byta=091) EOSINOPHILS ABSOLUTE COUNT (BEAKER) (test 0.01 K/ L 0.04-0.54 pllp=261) BASOPHILS ABSOLUTE COUNT (BEAKER) (test 0.02 K/ L 0.01-0.08 rjrj=424) IMMATURE GRANULOCYTES-RELATIVE PERCENT (BEAKER) 1 % 0-1 (test zama=0834) POCT-GLUCOSE [id number] 13:21:00 Test Item Value Reference Range Comments POC-GLUCOSE METER (BEAKER) 208 mg/dL 70-110 TESTED AT [address] (test smzr=1388) [facility] [address] RAD, CHEST, 1 VIEW, NON [id number] 11:57:00Reason for exam:->SOB, CHFFINAL REPORT Chest one [...] Location: [facility] Reading Room POCT-GLUCOSE [id number] 06:05:00 Test Item Value Reference Range Comments POC-GLUCOSE METER (BEAKER) 141 mg/dL 70-110 TESTED AT [address] (test rrsz=2820) [facility] [address] [id number] 06:04:00 Test Item Value Reference Range Comments PREALBUMIN (BEAKER) (test xfaf=228) 13 mg/dL 14-45 POCT-GLUCOSE [id number] 20:43:00 Test Item Value Reference Range Comments POC-GLUCOSE METER (BEAKER) 179 mg/dL 70-110 TESTED AT [address] (test wppm=7543) [facility] [address] POCT-GLUCOSE [id number] 16:57:00 Test Item Value Reference Range Comments POC-GLUCOSE METER (BEAKER) 215 mg/dL 70-110 TESTED AT [address] (test gjoh=0254) [facility] [address] POCT-GLUCOSE [id number] 11:18:00 Test Item Value Reference Range Comments POC-GLUCOSE METER (BEAKER) 159 mg/dL 70-110 TESTED AT [address] (test xhgv=2938) [facility] [address] BASIC METABOLIC [id number] 07:33:00 Test Item Value Reference Range Comments SODIUM (BEAKER) (test 139 meq/L 136-145 hkyg=546) POTASSIUM (BEAKER) (test 4.1 meq/L 3.5-5.1 mitz=932) CHLORIDE (BEAKER) (test 104 meq/L 98-107 pjld=867) CO2 (BEAKER) (test 25 meq/L 22-29 dpkq=476) BLOOD UREA NITROGEN 20 mg/dL 7-21 (BEAKER) (test moyr=470) CREATININE (BEAKER) (test 1.26 mg/dL 0.57-1.25 jthh=447) GLUCOSE RANDOM (BEAKER) 99 mg/dL 70-105 (test ceqh=683) CALCIUM (BEAKER) (test 8.5 mg/dL 8.4-10.2 fyoa=031) EGFR (BEAKER) (test 56 mL/min/1.73 sq m ESTIMATED GFR IS NOT qadt=7523) ACCURATE CREATININE CLEARANCE IN PREDICTING GLOMERULAR FILTRATION RATE. ESTIMATED GFR IS NOT APPLICABLE FOR DIALYSIS PATIENTS. CBC (HEMOGRAM ONLY)2017-09-01 06:13:00 Test Item Value Reference Range Comments WHITE BLOOD CELL COUNT (BEAKER) (test mpxl=434) 6.4 K/ L 3.5-10.5 RED BLOOD CELL COUNT (BEAKER) (test slct=177) 3.42 M/ L 4.63-6.08 HEMOGLOBIN (BEAKER) (test bgwu=132) 9.8 GM/DL 13.7-17.5 HEMATOCRIT (BEAKER) (test fidm=747) 32.8 % 40.1-51.0 MEAN CORPUSCULAR VOLUME (BEAKER) (test agaw=640) 95.9 fL 79.0-92.2 MEAN CORPUSCULAR HEMOGLOBIN (BEAKER) (test 28.7 pg 25.7-32.2 hpjf=053) MEAN CORPUSCULAR HEMOGLOBIN CONC (BEAKER) (test 29.9 GM/DL 32.3-36.5 dzbk=588) RED CELL DISTRIBUTION WIDTH (BEAKER) (test 16.7 % 11.6-14.4 apzg=378) PLATELET COUNT (BEAKER) (test frfh=601) 391 K/CU MM 150-450 MEAN PLATELET VOLUME (BEAKER) (test perq=491) 9.9 fL 9.4-12.4 NUCLEATED RED BLOOD CELLS (BEAKER) (test 0 /100 WBC 0-0 encb=957) POCT-GLUCOSE [id number] 05:51:00 Test Item Value Reference Range Comments POC-GLUCOSE METER (BEAKER) 122 mg/dL 70-110 TESTED AT [address] (test gnhl=0235) [facility] [id number] POCT-GLUCOSE [id number] 20:13:00 Test Item Value Reference Range Comments POC-GLUCOSE METER (BEAKER) 212 mg/dL 70-110 TESTED AT [address] (test xaff=3022) [facility] [address] POCT-GLUCOSE [id number] 16:30:00 Test Item Value Reference Range Comments POC-GLUCOSE METER (BEAKER) 181 mg/dL 70-110 TESTED AT [address] (test tlzt=6980) [facility] [address] POCT-GLUCOSE [id number] 11:36:00 Test Item Value Reference Range Comments POC-GLUCOSE METER (BEAKER) 139 mg/dL 70-110 TESTED AT [address] (test aedd=4726) [facility] [address] BASIC METABOLIC [id number] 06:56:00 Test Item Value Reference Range Comments SODIUM (BEAKER) (test 138 meq/L 136-145 quwz=061) POTASSIUM (BEAKER) (test 3.6 meq/L 3.5-5.1 buik=701) CHLORIDE (BEAKER) (test 103 meq/L 98-107 ebxk=427) CO2 (BEAKER) (test 26 meq/L 22-29 bsqm=471) BLOOD UREA NITROGEN 19 mg/dL 7-21 (BEAKER) (test luew=177) CREATININE (BEAKER) (test 1.10 mg/dL 0.57-1.25 sbqk=459) GLUCOSE RANDOM (BEAKER) 97 mg/dL 70-105 (test cemv=074) CALCIUM (BEAKER) (test 8.1 mg/dL 8.4-10.2 vtwr=415) EGFR (BEAKER) (test 65 mL/min/1.73 sq m ESTIMATED GFR IS NOT ofjy=5812) ACCURATE CREATININE CLEARANCE IN PREDICTING GLOMERULAR FILTRATION RATE. ESTIMATED GFR IS NOT APPLICABLE FOR DIALYSIS PATIENTS. POCT-GLUCOSE [id number] 06:00:00 Test Item Value Reference Range Comments POC-GLUCOSE METER (BEAKER) 119 mg/dL 70-110 TESTED AT [address] (test pgpw=7490) [facility] [address] POCT-GLUCOSE [id number] 20:05:00 Test Item Value Reference Range Comments POC-GLUCOSE METER (BEAKER) 167 mg/dL 70-110 TESTED AT [address] (test kyse=0052) [facility] [address] POCT-GLUCOSE [id number] 17:01:00 Test Item Value Reference Range Comments POC-GLUCOSE METER (BEAKER) 138 mg/dL 70-110 TESTED AT [address] (test fykq=4869) [place] [id number] POCT-GLUCOSE [id number] 12:07:00 Test Item Value Reference Range Comments POC-GLUCOSE METER (BEAKER) 201 mg/dL 70-110 TESTED AT [address] (test vfzn=1229) [place] [id number] POCT-GLUCOSE [id number] 06:11:00 Test Item Value Reference Range Comments POC-GLUCOSE METER (BEAKER) 147 mg/dL 70-110 TESTED AT [address] (test ewjb=1751) [place] [address] RAD, CHEST, 1 VIEW, NON [id number] 22:11:00Reason for exam:->sobShould this be performed at [...] MDReport Verified Date/Time: 08/29/2017 22:11:44 Reading Location: [facility] C013Y CT Body Reading Room POCT-GLUCOSE [id number] 20:49:00 Test Item Value Reference Range Comments POC-GLUCOSE METER (BEAKER) 144 mg/dL 70-110 TESTED AT [address] (test xkbu=3765) [place] [id number] POCT-GLUCOSE [id number] 16:39:00 Test Item Value Reference Range Comments POC-GLUCOSE METER (BEAKER) 151 mg/dL 70-110 TESTED AT [address] (test qujv=6760) [place] [address] FUNGUS CULTURE + [id number] 15:05:00 Test Item Value Reference Range Comments CULTURE (BEAKER) (test No fungus isolated in 28 days smdz=7601) FUNGUS SMEAR (BEAKER) (test No fungi seen hcla=8472) POCT-GLUCOSE [id number] 11:50:00 Test Item Value Reference Range Comments POC-GLUCOSE METER (BEAKER) 166 mg/dL 70-110 TESTED AT [facility] [address] [facility] (test crbg=5966) [facility] [address] POCT-GLUCOSE [id number] 21:39:00 Test Item Value Reference Range Comments POC-GLUCOSE METER (BEAKER) 136 mg/dL 70-110 TESTED AT [facility] [address] [facility] (test qyze=7495) [facility] [address] COMPREHENSIVE METABOLIC [id number] 16:58:00 Test Item Value Reference Range Comments TOTAL PROTEIN (BEAKER) 6.6 gm/dL 6.0-8.3 (test enka=878) ALBUMIN (BEAKER) (test 2.6 g/dL 3.5-5.0 eiqx=1488) ALKALINE PHOSPHATASE 93 U/L 40-150 (BEAKER) (test tlrv=258) BILIRUBIN TOTAL (BEAKER) 0.4 mg/dL 0.2-1.2 (test klyx=966) SODIUM (BEAKER) (test 134 meq/L 136-145 ywmh=732) POTASSIUM (BEAKER) (test 3.5 meq/L 3.5-5.1 cvwy=978) CHLORIDE (BEAKER) (test 98 meq/L 98-107 vwmu=318) CO2 (BEAKER) (test 25 meq/L 22-29 zlyl=860) BLOOD UREA NITROGEN 28 mg/dL 7-21 (BEAKER) (test icyq=709) CREATININE (BEAKER) (test 1.36 mg/dL 0.57-1.25 lmxg=283) GLUCOSE RANDOM (BEAKER) 117 mg/dL 70-105 (test fvub=659) CALCIUM (BEAKER) (test 8.1 mg/dL 8.4-10.2 ylbp=645) AST (SGOT) (BEAKER) (test 37 U/L 5-34 jdtd=321) ALT (SGPT) (BEAKER) (test 29 U/L 6-55 nvlr=684) EGFR (BEAKER) (test 51 mL/min/1.73 sq m ESTIMATED GFR IS NOT tdbv=7615) ACCURATE CREATININE CLEARANCE IN PREDICTING GLOMERULAR FILTRATION RATE. ESTIMATED GFR IS NOT APPLICABLE FOR DIALYSIS PATIENTS. LACTIC ACID, VENOUS, WHOLE [id number] 16:52:00 Test Item Value Reference Range Comments LACTATE BLOOD VENOUS (2) (BEAKER) (test 1.2 mmol/L 0.5-2.2 muvb=2900) Effective 09/27/2015: Units/Reference Range ChangeNew: 0.5-2.2 mmol/L Previous: 5 -20 mg/dLCBC W/PLT COUNT & AUTO [id number] 16:39:00 Test Item Value Reference Range Comments WHITE BLOOD CELL COUNT (BEAKER) (test eopt=434) 6.6 K/ L 3.5-10.5 RED BLOOD CELL COUNT (BEAKER) (test ulnp=435) 3.11 M/ L 4.63-6.08 HEMOGLOBIN (BEAKER) (test otnt=118) 9.0 GM/DL 13.7-17.5 HEMATOCRIT (BEAKER) (test wenf=676) 30.1 % 40.1-51.0 MEAN CORPUSCULAR VOLUME (BEAKER) (test kbya=592) 96.8 fL 79.0-92.2 MEAN CORPUSCULAR HEMOGLOBIN (BEAKER) (test 28.9 pg 25.7-32.2 llwz=470) MEAN CORPUSCULAR HEMOGLOBIN CONC (BEAKER) (test 29.9 GM/DL 32.3-36.5 oycz=845) RED CELL DISTRIBUTION WIDTH (BEAKER) (test 16.1 % 11.6-14.4 rbep=995) PLATELET COUNT (BEAKER) (test sodj=176) 367 K/CU MM 150-450 MEAN PLATELET VOLUME (BEAKER) (test gwru=178) 9.4 fL 9.4-12.4 NUCLEATED RED BLOOD CELLS (BEAKER) (test 0 /100 WBC 0-0 tska=774) NEUTROPHILS RELATIVE PERCENT (BEAKER) (test 78 % ilsg=902) LYMPHOCYTES RELATIVE PERCENT (BEAKER) (test 12 % hzqy=234) MONOCYTES RELATIVE PERCENT (BEAKER) (test 9 % shav=937) EOSINOPHILS RELATIVE PERCENT (BEAKER) (test 1 % uivs=600) BASOPHILS RELATIVE PERCENT (BEAKER) (test 0 % yams=280) NEUTROPHILS ABSOLUTE COUNT (BEAKER) (test 5.18 K/ L 1.78-5.38 atfi=813) LYMPHOCYTES ABSOLUTE COUNT (BEAKER) (test 0.79 K/ L 1.32-3.57 jewn=978) MONOCYTES ABSOLUTE COUNT (BEAKER) (test 0.60 K/ L 0.30-0.82 dtxl=447) EOSINOPHILS ABSOLUTE COUNT (BEAKER) (test 0.03 K/ L 0.04-0.54 yruh=578) BASOPHILS ABSOLUTE COUNT (BEAKER) (test 0.01 K/ L 0.01-0.08 zxjl=327) IMMATURE GRANULOCYTES-RELATIVE PERCENT (BEAKER) 1 % 0-1 (test wiyw=2263) POCT-GLUCOSE [id number] 16:20:00 Test Item Value Reference Range Comments POC-GLUCOSE METER (BEAKER) 136 mg/dL 70-110 TESTED AT [address] (test gbwq=8477) [place] [id number] POCT-GLUCOSE [id number] 11:45:00 Test Item Value Reference Range Comments POC-GLUCOSE METER (BEAKER) 157 mg/dL 70-110 TESTED AT [address] (test hmhp=9157) [place] [address] POCT-GLUCOSE [id number] 06:31:00 Test Item Value Reference Range Comments POC-GLUCOSE METER (BEAKER) 131 mg/dL 70-110 TESTED AT [address] (test izgx=1497) [place] [address] POCT-GLUCOSE [id number] 20:28:00 Test Item Value Reference Range Comments POC-GLUCOSE METER (BEAKER) 173 mg/dL 70-110 TESTED AT [address] (test entc=1028) [place] [address] POCT-GLUCOSE [id number] 16:43:00 Test Item Value Reference Range Comments POC-GLUCOSE METER (BEAKER) 191 mg/dL 70-110 TESTED AT [address] (test lyqc=8688) [place] [address] POCT-GLUCOSE [id number] 11:59:00 Test Item Value Reference Range Comments POC-GLUCOSE METER (BEAKER) 152 mg/dL 70-110 TESTED AT [address] (test mvxi=9004) [place] [address] RAD, CHEST, 1 VIEW, NON [id number] 11:08:00Reason for exam:-> dyspneaShould this be performed at the bedside?->YesFINAL REPORT Two frontal chest images compared to August 20 Discussion: There is cardiac prominence and pulmonary congestion with probable small left effusion. No pneumothorax. IMPRESSIONS: No change Signed: Taty Osborne MDReport Verified Date/Time: 08/27/2017 11:08:36 Reading Location: [facility] Reading Room 11 :08 AMPOCT-GLUCOSE [id number] 06:00:00 Test Item Value Reference Range Comments POC-GLUCOSE METER (BEAKER) 129 mg/dL 70-110 TESTED AT [address] (test onyd=8568) [facility] [address] [id number] 05:12:00 Test Item Value Reference Range Comments PREALBUMIN (BEAKER) (test aedt=179) 10 mg/dL 14-45 POCT-GLUCOSE [id number] 20:50:00 Test Item Value Reference Range Comments POC-GLUCOSE METER (BEAKER) 177 mg/dL 70-110 TESTED AT [address] (test ifgn=4896) [place] [address] POCT-GLUCOSE [id number] 16:19:00 Test Item Value Reference Range Comments POC-GLUCOSE METER (BEAKER) 162 mg/dL 70-110 TESTED AT [address] (test hvkw=2486) [place] [address] POCT-GLUCOSE [id number] 11:44:00 Test Item Value Reference Range Comments POC-GLUCOSE METER (BEAKER) 182 mg/dL 70-110 TESTED AT [address] (test wrng=9781) [place] [address] POCT-GLUCOSE [id number] 06:07:00 Test Item Value Reference Range Comments POC-GLUCOSE METER (BEAKER) 120 mg/dL 70-110 TESTED AT [address] (test svpz=5021) [place] [address] POCT-GLUCOSE [id number] 20:48:00 Test Item Value Reference Range Comments POC-GLUCOSE METER (BEAKER) 172 mg/dL 70-110 TESTED AT [address] (test vxsw=4435) [place] [address] POCT-GLUCOSE [id number] 16:17:00 Test Item Value Reference Range Comments POC-GLUCOSE METER (BEAKER) 156 mg/dL 70-110 TESTED AT [address] (test cjgm=9763) [place] [address] POCT-GLUCOSE [id number] 11:33:00 Test Item Value Reference Range Comments POC-GLUCOSE METER (BEAKER) 203 mg/dL 70-110 TESTED AT [facility] [address] [facility] (test qmgf=3191) [facility] [address] HEPATIC FUNCTION [id number] 11:30:00 Test Item Value Reference Range Comments TOTAL PROTEIN (BEAKER) (test kcdw=940) 6.5 gm/dL 6.0-8.3 ALBUMIN (BEAKER) (test gvux=0790) 2.6 g/dL 3.5-5.0 BILIRUBIN TOTAL (BEAKER) (test ffku=908) 0.4 mg/dL 0.2-1.2 BILIRUBIN DIRECT (BEAKER) (test ukik=230) 0.3 mg/dL 0.1-0.5 ALKALINE PHOSPHATASE (BEAKER) (test nzqz=475) 105 U/L 40-150 AST (SGOT) (BEAKER) (test upab=659) 26 U/L 5-34 ALT (SGPT) (BEAKER) (test ekhu=235) 21 U/L 6-55 BASIC METABOLIC [id number] 07:01:00 Test Item Value Reference Range Comments SODIUM (BEAKER) (test 136 meq/L 136-145 hxws=658) POTASSIUM (BEAKER) (test 3.7 meq/L 3.5-5.1 zsgu=225) CHLORIDE (BEAKER) (test 102 meq/L 98-107 mkuu=108) CO2 (BEAKER) (test 25 meq/L 22-29 jzvs=402) BLOOD UREA NITROGEN 23 mg/dL 7-21 (BEAKER) (test bljm=332) CREATININE (BEAKER) (test 1.22 mg/dL 0.57-1.25 svev=764) GLUCOSE RANDOM (BEAKER) 120 mg/dL 70-105 (test kdnf=026) CALCIUM (BEAKER) (test 8.4 mg/dL 8.4-10.2 tlet=394) EGFR (BEAKER) (test 58 mL/min/1.73 sq m ESTIMATED GFR IS NOT fict=4896) ACCURATE CREATININE CLEARANCE IN PREDICTING GLOMERULAR FILTRATION RATE. ESTIMATED GFR IS NOT APPLICABLE FOR DIALYSIS PATIENTS. CBC (HEMOGRAM ONLY)2017-08-25 06:32:00 Test Item Value Reference Range Comments WHITE BLOOD CELL COUNT (BEAKER) (test teno=779) 7.0 K/ L 3.5-10.5 RED BLOOD CELL COUNT (BEAKER) (test vopp=974) 3.14 M/ L 4.63-6.08 HEMOGLOBIN (BEAKER) (test uzzu=829) 9.2 GM/DL 13.7-17.5 HEMATOCRIT (BEAKER) (test loqk=778) 31.3 % 40.1-51.0 MEAN CORPUSCULAR VOLUME (BEAKER) (test dbrd=094) 99.7 fL 79.0-92.2 MEAN CORPUSCULAR HEMOGLOBIN (BEAKER) (test 29.3 pg 25.7-32.2 lvfj=180) MEAN CORPUSCULAR HEMOGLOBIN CONC (BEAKER) (test 29.4 GM/DL 32.3-36.5 xapa=284) RED CELL DISTRIBUTION WIDTH (BEAKER) (test 16.1 % 11.6-14.4 rtsa=029) PLATELET COUNT (BEAKER) (test qxww=284) 362 K/CU MM 150-450 MEAN PLATELET VOLUME (BEAKER) (test pjda=758) 9.8 fL 9.4-12.4 NUCLEATED RED BLOOD CELLS (BEAKER) (test 0 /100 WBC 0-0 blyv=379) POCT-GLUCOSE [id number] 06:17:00 Test Item Value Reference Range Comments POC-GLUCOSE METER (BEAKER) 152 mg/dL 70-110 TESTED AT [address] (test nnay=6802) [facility] [address] POCT-GLUCOSE [id number] 20:39:00 Test Item Value Reference Range Comments POC-GLUCOSE METER (BEAKER) 249 mg/dL 70-110 TESTED AT [address] (test wazc=6388) [facility] [address] POCT-GLUCOSE [id number] 17:12:00 Test Item Value Reference Range Comments POC-GLUCOSE METER (BEAKER) 163 mg/dL 70-110 TESTED AT [address] (test mjtk=2859) [facility] [address] POCT-GLUCOSE [id number] 11:20:00 Test Item Value Reference Range Comments POC-GLUCOSE METER (BEAKER) 190 mg/dL 70-110 TESTED AT [address] (test luey=2072) [facility] [address] POCT-GLUCOSE [id number] 06:16:00 Test Item Value Reference Range Comments POC-GLUCOSE METER (BEAKER) 126 mg/dL 70-110 TESTED AT [address] (test uqtn=2305) [place] [address] POCT-GLUCOSE [id number] 20:49:00 Test Item Value Reference Range Comments POC-GLUCOSE METER (BEAKER) 139 mg/dL 70-110 TESTED AT [address] (test jqkx=6955) [place] [address] POCT-GLUCOSE [id number] 16:32:00 Test Item Value Reference Range Comments POC-GLUCOSE METER (BEAKER) 161 mg/dL 70-110 TESTED AT [address] (test ykow=2527) [place] [address] POCT-GLUCOSE [id number] 12:02:00 Test Item Value Reference Range Comments POC-GLUCOSE METER (BEAKER) 149 mg/dL 70-110 TESTED AT [address] (test mkqz=5672) [place] [address] CBC W/PLT COUNT & AUTO [id number] 07:02:00 Test Item Value Reference Range Comments WHITE BLOOD CELL COUNT (BEAKER) (test piab=649) 8.4 K/ L 3.5-10.5 RED BLOOD CELL COUNT (BEAKER) (test tqwk=828) 3.07 M/ L 4.63-6.08 HEMOGLOBIN (BEAKER) (test yvur=324) 9.1 GM/DL 13.7-17.5 HEMATOCRIT (BEAKER) (test rctq=808) 30.9 % 40.1-51.0 MEAN CORPUSCULAR VOLUME (BEAKER) (test xrcb=048) 100.7 fL 79.0-92.2 MEAN CORPUSCULAR HEMOGLOBIN (BEAKER) (test 29.6 pg 25.7-32.2 ream=995) MEAN CORPUSCULAR HEMOGLOBIN CONC (BEAKER) (test 29.4 GM/DL 32.3-36.5 qlun=999) RED CELL DISTRIBUTION WIDTH (BEAKER) (test 16.1 % 11.6-14.4 zudf=519) PLATELET COUNT (BEAKER) (test waxv=159) 374 K/CU MM 150-450 MEAN PLATELET VOLUME (BEAKER) (test ewhr=037) 9.8 fL 9.4-12.4 NUCLEATED RED BLOOD CELLS (BEAKER) (test 0 /100 WBC 0-0 pqjr=687) NEUTROPHILS RELATIVE PERCENT (BEAKER) (test 78 % jmqf=027) LYMPHOCYTES RELATIVE PERCENT (BEAKER) (test 9 % rygr=844) MONOCYTES RELATIVE PERCENT (BEAKER) (test 10 % yptd=873) EOSINOPHILS RELATIVE PERCENT (BEAKER) (test 3 % qski=208) BASOPHILS RELATIVE PERCENT (BEAKER) (test 1 % umbi=165) NEUTROPHILS ABSOLUTE COUNT (BEAKER) (test 6.53 K/ L 1.78-5.38 kwte=086) LYMPHOCYTES ABSOLUTE COUNT (BEAKER) (test 0.75 K/ L 1.32-3.57 yjhc=179) MONOCYTES ABSOLUTE COUNT (BEAKER) (test 0.81 K/ L 0.30-0.82 xkku=583) EOSINOPHILS ABSOLUTE COUNT (BEAKER) (test 0.22 K/ L 0.04-0.54 lfbu=561) BASOPHILS ABSOLUTE COUNT (BEAKER) (test 0.04 K/ L 0.01-0.08 ntwf=523) IMMATURE GRANULOCYTES-RELATIVE PERCENT (BEAKER) 1 % 0-1 (test pmgf=3178) BASIC METABOLIC [id number] 06:59:00 Test Item Value Reference Range Comments SODIUM (BEAKER) (test 136 meq/L 136-145 shwz=417) POTASSIUM (BEAKER) (test 3.8 meq/L 3.5-5.1 euej=191) CHLORIDE (BEAKER) (test 104 meq/L 98-107 xfso=177) CO2 (BEAKER) (test 23 meq/L 22-29 xehd=474) BLOOD UREA NITROGEN 26 mg/dL 7-21 (BEAKER) (test lbms=144) CREATININE (BEAKER) (test 1.30 mg/dL 0.57-1.25 ejuq=975) GLUCOSE RANDOM (BEAKER) 124 mg/dL 70-105 (test irjh=604) CALCIUM (BEAKER) (test 8.6 mg/dL 8.4-10.2 dfwz=087) EGFR (BEAKER) (test 54 mL/min/1.73 sq m ESTIMATED GFR IS NOT ikou=3751) ACCURATE CREATININE CLEARANCE IN PREDICTING GLOMERULAR FILTRATION RATE. ESTIMATED GFR IS NOT APPLICABLE FOR DIALYSIS PATIENTS. POCT-GLUCOSE [id number] 06:40:00 Test Item Value Reference Range Comments POC-GLUCOSE METER (BEAKER) 158 mg/dL 70-110 TESTED AT [address] (test xhtk=0683) [facility] [address] POCT-GLUCOSE [id number] 20:50:00 Test Item Value Reference Range Comments POC-GLUCOSE METER (BEAKER) 174 mg/dL 70-110 TESTED AT [address] (test vvmc=3945) [facility] [address] POCT-GLUCOSE [id number] 17:01:00 Test Item Value Reference Range Comments POC-GLUCOSE METER (BEAKER) 130 mg/dL 70-110 TESTED AT [address] (test gfpi=2656) [place] [address] POCT-GLUCOSE [id number] 12:02:00 Test Item Value Reference Range Comments POC-GLUCOSE METER (BEAKER) 194 mg/dL 70-110 TESTED AT [address] (test gkom=6000) [place] [address] POCT-GLUCOSE [id number] 06:25:00 Test Item Value Reference Range Comments POC-GLUCOSE METER (BEAKER) 130 mg/dL 70-110 TESTED AT [address] (test tviq=2524) [place] [address] POCT-GLUCOSE [id number] 19:53:00 Test Item Value Reference Range Comments POC-GLUCOSE METER (BEAKER) 188 mg/dL 70-110 TESTED AT [address] (test jryn=8101) [place] [address] POCT-GLUCOSE [id number] 16:24:00 Test Item Value Reference Range Comments POC-GLUCOSE METER (BEAKER) 210 mg/dL 70-110 TESTED AT [address] (test fuzj=2084) [place] [address] POCT-GLUCOSE [id number] 11:20:00 Test Item Value Reference Range Comments POC-GLUCOSE METER (BEAKER) 186 mg/dL 70-110 TESTED AT [address] (test vual=5664) [facility] [address] POCT-GLUCOSE [id number] 06:18:00 Test Item Value Reference Range Comments POC-GLUCOSE METER (BEAKER) 127 mg/dL 70-110 TESTED AT [address] (test jsqa=8228) [place] [address] POCT-GLUCOSE [id number] 20:48:00 Test Item Value Reference Range Comments POC-GLUCOSE METER (BEAKER) 166 mg/dL 70-110 TESTED AT [address] (test sdrq=7126) [place] [address] POCT-GLUCOSE [id number] 16:51:00 Test Item Value Reference Range Comments POC-GLUCOSE METER (BEAKER) 153 mg/dL 70-110 TESTED AT [address] (test hidp=2304) [place] [address] B-TYPE NATRIURETIC FACTOR (BNP)2017-08-20 14:00:00 Test Item Value Reference Range Comments B-TYPE NATRIURETIC PEPTIDE (BEAKER) (test 422 pg/mL 0-100 pear=852) POCT-GLUCOSE [id number] 12:02:00 Test Item Value Reference Range Comments POC-GLUCOSE METER (BEAKER) 203 mg/dL 70-110 TESTED AT [address] (test fqpk=6357) [place] [address] RAD, CHEST, 1 VIEW, NON [id number] 08:19:00Reason for exam:->pulm edema fupShould this be [...] MDRepbirdie Verified Date/Time: 08/20/2017 08:19:33 Reading Location: [facility] Radiology Reading Room POCT-GLUCOSE [id number] 05:10:00 Test Item Value Reference Range Comments POC-GLUCOSE METER (BEAKER) 138 mg/dL 70-110 TESTED AT [address] (test gjqm=4730) [place] [address] POCT-GLUCOSE [id number] 21:20:00 Test Item Value Reference Range Comments POC-GLUCOSE METER (BEAKER) 151 mg/dL 70-110 TESTED AT [address] (test qwfq=3715) [place] [address] POCT-GLUCOSE [id number] 18:02:00 Test Item Value Reference Range Comments POC-GLUCOSE METER (BEAKER) 227 mg/dL 70-110 TESTED AT [address] (test ifxn=3483) [place] [address] POCT-GLUCOSE [id number] 11:42:00 Test Item Value Reference Range Comments POC-GLUCOSE METER (BEAKER) 212 mg/dL 70-110 TESTED AT [address] (test gwfu=5025) [place] [address] VITAMIN B12 AND [id number] 07:11:00 Test Item Value Reference Range Comments VITAMIN B12 (BEAKER) (test imha=434) 654 pg/mL 213-816 FOLATE (BEAKER) (test gvyw=976) 4.4 ng/mL >=7.0 POCT-GLUCOSE [id number] 06:14:00 Test Item Value Reference Range Comments POC-GLUCOSE METER (BEAKER) 144 mg/dL 70-110 TESTED AT [address] (test gahr=1145) [place] [address] CT, CHEST, WITHOUT [id number] 22:14:00FINAL REPORT CT, CHEST, WITHOUT CONTRAST INDICATION: [...] MDReport Verified Date/Time: 08/18/2017 22:14:14 Reading Location: [facility] B1 C013Y CT Body Reading Room POCT-GLUCOSE [id number] 21: 03:00 Test Item Value Reference Range Comments POC-GLUCOSE METER (BEAKER) 179 mg/dL 70-110 TESTED AT [address] (test txzd=7433) [place] [address] POCT-GLUCOSE [id number] 16:32:00 Test Item Value Reference Range Comments POC-GLUCOSE METER (BEAKER) 147 mg/dL 70-110 TESTED AT [address] (test zzjj=8516) [place] [address] POCT-GLUCOSE [id number] 12:07:00 Test Item Value Reference Range Comments POC-GLUCOSE METER (BEAKER) 171 mg/dL 70-110 TESTED AT [address] (test bsxx=7127) [facility] [address] BASIC METABOLIC [id number] 06:31:00 Test Item Value Reference Range Comments SODIUM (BEAKER) (test 136 meq/L 136-145 vboa=247) POTASSIUM (BEAKER) (test 4.2 meq/L 3.5-5.1 qsov=372) CHLORIDE (BEAKER) (test 104 meq/L 98-107 hphq=372) CO2 (BEAKER) (test 23 meq/L 22-29 qgwl=807) BLOOD UREA NITROGEN 27 mg/dL 7-21 (BEAKER) (test ycmp=237) CREATININE (BEAKER) (test 1.28 mg/dL 0.57-1.25 jewp=120) GLUCOSE RANDOM (BEAKER) 123 mg/dL 70-105 (test awip=639) CALCIUM (BEAKER) (test 8.4 mg/dL 8.4-10.2 ulzy=765) EGFR (BEAKER) (test 55 mL/min/1.73 sq m ESTIMATED GFR IS NOT fybu=0148) ACCURATE CREATININE CLEARANCE IN PREDICTING GLOMERULAR FILTRATION RATE. ESTIMATED GFR IS NOT APPLICABLE FOR DIALYSIS PATIENTS. POCT-GLUCOSE [id number] 05:42:00 Test Item Value Reference Range Comments POC-GLUCOSE METER (BEAKER) 132 mg/dL 70-110 TESTED AT [facility] [address] [facility] (test xnvs=4549) [facility] [address] CBC W/PLT COUNT & AUTO [id number] 05:39:00 Test Item Value Reference Range Comments WHITE BLOOD CELL COUNT (BEAKER) (test igal=773) 8.6 K/ L 3.5-10.5 RED BLOOD CELL COUNT (BEAKER) (test dica=758) 2.69 M/ L 4.63-6.08 HEMOGLOBIN (BEAKER) (test ysnv=860) 8.3 GM/DL 13.7-17.5 HEMATOCRIT (BEAKER) (test agpz=281) 27.6 % 40.1-51.0 MEAN CORPUSCULAR VOLUME (BEAKER) (test jbsc=510) 102.6 fL 79.0-92.2 MEAN CORPUSCULAR HEMOGLOBIN (BEAKER) (test 30.9 pg 25.7-32.2 yhqi=881) MEAN CORPUSCULAR HEMOGLOBIN CONC (BEAKER) (test 30.1 GM/DL 32.3-36.5 enbr=397) RED CELL DISTRIBUTION WIDTH (BEAKER) (test 16.6 % 11.6-14.4 ehru=606) PLATELET COUNT (BEAKER) (test vunz=421) 407 K/CU MM 150-450 MEAN PLATELET VOLUME (BEAKER) (test msck=942) 9.4 fL 9.4-12.4 NUCLEATED RED BLOOD CELLS (BEAKER) (test 0 /100 WBC 0-0 cejq=330) NEUTROPHILS RELATIVE PERCENT (BEAKER) (test 76 % mpaj=954) LYMPHOCYTES RELATIVE PERCENT (BEAKER) (test 11 % goow=785) MONOCYTES RELATIVE PERCENT (BEAKER) (test 7 % sjem=802) EOSINOPHILS RELATIVE PERCENT (BEAKER) (test 6 % vrtt=518) BASOPHILS RELATIVE PERCENT (BEAKER) (test 1 % bwng=758) NEUTROPHILS ABSOLUTE COUNT (BEAKER) (test 6.51 K/ L 1.78-5.38 fqfe=138) LYMPHOCYTES ABSOLUTE COUNT (BEAKER) (test 0.90 K/ L 1.32-3.57 crpr=025) MONOCYTES ABSOLUTE COUNT (BEAKER) (test 0.58 K/ L 0.30-0.82 tpum=291) EOSINOPHILS ABSOLUTE COUNT (BEAKER) (test 0.51 K/ L 0.04-0.54 idbu=684) BASOPHILS ABSOLUTE COUNT (BEAKER) (test 0.04 K/ L 0.01-0.08 ckba=577) IMMATURE GRANULOCYTES-RELATIVE PERCENT (BEAKER) 1 % 0-1 (test gefm=9812) POCT-GLUCOSE [id number] 20:21:00 Test Item Value Reference Range Comments POC-GLUCOSE METER (BEAKER) 168 mg/dL 70-110 TESTED AT [address] (test bdfb=6756) [place] [address] POCT-GLUCOSE [id number] 17:12:00 Test Item Value Reference Range Comments POC-GLUCOSE METER (BEAKER) 149 mg/dL 70-110 TESTED AT [address] (test wjsx=7534) [place] [address] POCT-GLUCOSE [id number] 11:46:00 Test Item Value Reference Range Comments POC-GLUCOSE METER (BEAKER) 138 mg/dL 70-110 TESTED AT [address] (test kdcg=7106) [facility] [address] BASIC METABOLIC [id number] 08:56:00 Test Item Value Reference Range Comments SODIUM (BEAKER) (test 137 meq/L 136-145 ibzr=564) POTASSIUM (BEAKER) (test 4.0 meq/L 3.5-5.1 uscj=103) CHLORIDE (BEAKER) (test 106 meq/L 98-107 ljur=263) CO2 (BEAKER) (test 22 meq/L 22-29 oxlz=160) BLOOD UREA NITROGEN 28 mg/dL 7-21 (BEAKER) (test sdpx=161) CREATININE (BEAKER) (test 1.34 mg/dL 0.57-1.25 iqmx=143) GLUCOSE RANDOM (BEAKER) 124 mg/dL 70-105 (test zoym=483) CALCIUM (BEAKER) (test 8.2 mg/dL 8.4-10.2 fibq=189) EGFR (BEAKER) (test 52 mL/min/1.73 sq m ESTIMATED GFR IS NOT eeiq=9217) ACCURATE CREATININE CLEARANCE IN PREDICTING GLOMERULAR FILTRATION RATE. ESTIMATED GFR IS NOT APPLICABLE FOR DIALYSIS PATIENTS. POCT-GLUCOSE [id number] 05:44:00 Test Item Value Reference Range Comments POC-GLUCOSE METER (BEAKER) 139 mg/dL 70-110 TESTED AT [address] (test koxf=7455) [facility] [address] POCT-GLUCOSE [id number] 20:33:00 Test Item Value Reference Range Comments POC-GLUCOSE METER (BEAKER) 145 mg/dL 70-110 TESTED AT [address] (test zrou=1600) [facility] [address] POCT-GLUCOSE [id number] 16:39:00 Test Item Value Reference Range Comments POC-GLUCOSE METER (BEAKER) 177 mg/dL 70-110 TESTED AT [address] (test rsoz=1476) [facility] [address] POCT-GLUCOSE [id number] 12:01:00 Test Item Value Reference Range Comments POC-GLUCOSE METER (BEAKER) 200 mg/dL 70-110 TESTED AT [address] (test wdzf=0820) [facility] [address] POCT-GLUCOSE [id number] 05:56:00 Test Item Value Reference Range Comments POC-GLUCOSE METER (BEAKER) 167 mg/dL 70-110 TESTED AT [address] (test uado=5427) [facility] [address] POCT-GLUCOSE [id number] 20:34:00 Test Item Value Reference Range Comments POC-GLUCOSE METER (BEAKER) 217 mg/dL 70-110 TESTED AT [address] (test uldr=5423) [facility] [address] POCT-GLUCOSE [id number] 18:24:00 Test Item Value Reference Range Comments POC-GLUCOSE METER (BEAKER) 190 mg/dL 70-110 TESTED AT [address] (test plnp=1062) [facility] [address] POCT-GLUCOSE [id number] 16:22:00 Test Item Value Reference Range Comments POC-GLUCOSE METER (BEAKER) 233 mg/dL 70-110 TESTED AT [address] (test ofwe=2042) [facility] [address] POCT-GLUCOSE [id number] 12:13:00 Test Item Value Reference Range Comments POC-GLUCOSE METER (BEAKER) 235 mg/dL 70-110 TESTED AT [facility] [address] [facility] (test psym=0265) [facility] [address] RAD, CHEST, 2 [id number] 09:16:00Reason for exam:->sobFINAL REPORT Two frontal and one lateral chest images compared to August 14 Discussion: Cardiomegaly and pulmonary congestion are present. I could not exclude a small right effusion although pleural thickening would have a similar appearance. No pneumothorax. IMPRESSIONS: No change Signed: Taty Osborne Verified Date/Time: 08/15/2017 09:16:20 Reading Location: [facility] Radiology Reading Room BASIC METABOLIC [id number] 06:45:00 Test Item Value Reference Range Comments SODIUM (BEAKER) (test 136 meq/L 136-145 fhvg=495) POTASSIUM (BEAKER) (test 4.3 meq/L 3.5-5.1 tyxf=457) CHLORIDE (BEAKER) (test 106 meq/L 98-107 ivtw=859) CO2 (BEAKER) (test 21 meq/L 22-29 apbi=270) BLOOD UREA NITROGEN 32 mg/dL 7-21 (BEAKER) (test wgbn=926) CREATININE (BEAKER) (test 1.41 mg/dL 0.57-1.25 ynbs=827) GLUCOSE RANDOM (BEAKER) 127 mg/dL 70-105 (test iijj=728) CALCIUM (BEAKER) (test 8.3 mg/dL 8.4-10.2 jjzj=225) EGFR (BEAKER) (test 49 mL/min/1.73 sq m ESTIMATED GFR IS NOT gond=9829) ACCURATE CREATININE CLEARANCE IN PREDICTING GLOMERULAR FILTRATION RATE. ESTIMATED GFR IS NOT APPLICABLE FOR DIALYSIS PATIENTS. CBC W/PLT COUNT & AUTO [id number] 05:31:00 Test Item Value Reference Range Comments WHITE BLOOD CELL COUNT (BEAKER) (test gbut=980) 11.0 K/ L 3.5-10.5 RED BLOOD CELL COUNT (BEAKER) (test yeza=576) 2.56 M/ L 4.63-6.08 HEMOGLOBIN (BEAKER) (test duil=151) 7.9 GM/DL 13.7-17.5 HEMATOCRIT (BEAKER) (test jnzr=698) 26.4 % 40.1-51.0 MEAN CORPUSCULAR VOLUME (BEAKER) (test gdvh=373) 103.1 fL 79.0-92.2 MEAN CORPUSCULAR HEMOGLOBIN (BEAKER) (test 30.9 pg 25.7-32.2 hfsa=133) MEAN CORPUSCULAR HEMOGLOBIN CONC (BEAKER) (test 29.9 GM/DL 32.3-36.5 esao=284) RED CELL DISTRIBUTION WIDTH (BEAKER) (test 16.3 % 11.6-14.4 shxi=953) PLATELET COUNT (BEAKER) (test pyik=802) 470 K/CU MM 150-450 MEAN PLATELET VOLUME (BEAKER) (test kbec=270) 9.7 fL 9.4-12.4 NUCLEATED RED BLOOD CELLS (BEAKER) (test 0 /100 WBC 0-0 hkly=828) NEUTROPHILS RELATIVE PERCENT (BEAKER) (test 79 % oafz=785) LYMPHOCYTES RELATIVE PERCENT (BEAKER) (test 9 % yddr=527) MONOCYTES RELATIVE PERCENT (BEAKER) (test 7 % aogd=715) EOSINOPHILS RELATIVE PERCENT (BEAKER) (test 5 % xfke=312) BASOPHILS RELATIVE PERCENT (BEAKER) (test 1 % kflc=061) NEUTROPHILS ABSOLUTE COUNT (BEAKER) (test 8.65 K/ L 1.78-5.38 enoq=460) LYMPHOCYTES ABSOLUTE COUNT (BEAKER) (test 0.99 K/ L 1.32-3.57 hjpz=275) MONOCYTES ABSOLUTE COUNT (BEAKER) (test 0.76 K/ L 0.30-0.82 okls=910) EOSINOPHILS ABSOLUTE COUNT (BEAKER) (test 0.51 K/ L 0.04-0.54 jcim=948) BASOPHILS ABSOLUTE COUNT (BEAKER) (test 0.06 K/ L 0.01-0.08 keap=053) IMMATURE GRANULOCYTES-RELATIVE PERCENT (BEAKER) 1 % 0-1 (test ctvd=6161) POCT-GLUCOSE [id number] 03:46:00 Test Item Value Reference Range Comments POC-GLUCOSE METER (BEAKER) 235 mg/dL 70-110 TESTED AT [address] (test zjyb=2652) [facility] [address] POCT-GLUCOSE [id number] 20:54:00 Test Item Value Reference Range Comments POC-GLUCOSE METER (BEAKER) 205 mg/dL 70-110 TESTED AT [address] (test iusk=3476) [place] [id number] RAD, CHEST, 1 VIEW, NON [id number] 15:21:00Reason for exam:->sobShould this be performed at [...] [facility] Radiology Reading Room POCT- GLUCOSE [id number] 13:31:00 Test Item Value Reference Range Comments POC-GLUCOSE METER (BEAKER) 229 mg/dL 70-110 TESTED AT [address] (test aqph=9645) [facility] [address] POCT-GLUCOSE [id number] 10:21:00 Test Item Value Reference Range Comments POC-GLUCOSE METER (BEAKER) 189 mg/dL 70-110 TESTED AT [address] (test kdik=3815) [facility] [address] [id number] 04:50:00 Test Item Value Reference Range Comments MAGNESIUM (BEAKER) (test blue=917) 1.6 mg/dL 1.6-2.6 BASIC METABOLIC [id number] 04:50:00 Test Item Value Reference Range Comments SODIUM (BEAKER) (test 132 meq/L 136-145 ubyu=080) POTASSIUM (BEAKER) (test 4.2 meq/L 3.5-5.1 livt=716) CHLORIDE (BEAKER) (test 105 meq/L 98-107 vjzs=623) CO2 (BEAKER) (test 20 meq/L 22-29 vyjl=373) BLOOD UREA NITROGEN 36 mg/dL 7-21 (BEAKER) (test uenz=154) CREATININE (BEAKER) (test 1.28 mg/dL 0.57-1.25 msyc=898) GLUCOSE RANDOM (BEAKER) 136 mg/dL 70-105 (test yjzb=448) CALCIUM (BEAKER) (test 8.0 mg/dL 8.4-10.2 fart=019) EGFR (BEAKER) (test 55 mL/min/1.73 sq m ESTIMATED GFR IS NOT driq=8879) ACCURATE CREATININE CLEARANCE IN PREDICTING GLOMERULAR FILTRATION RATE. ESTIMATED GFR IS NOT APPLICABLE FOR DIALYSIS PATIENTS. CBC W/PLT COUNT & AUTO [id number] 04:34:00 Test Item Value Reference Range Comments WHITE BLOOD CELL COUNT (BEAKER) (test ucqh=881) 10.4 K/ L 3.5-10.5 RED BLOOD CELL COUNT (BEAKER) (test whxq=401) 2.53 M/ L 4.63-6.08 HEMOGLOBIN (BEAKER) (test dmvs=880) 7.8 GM/DL 13.7-17.5 HEMATOCRIT (BEAKER) (test oebq=388) 25.9 % 40.1-51.0 MEAN CORPUSCULAR VOLUME (BEAKER) (test vfpo=907) 102.4 fL 79.0-92.2 MEAN CORPUSCULAR HEMOGLOBIN (BEAKER) (test 30.8 pg 25.7-32.2 pnab=652) MEAN CORPUSCULAR HEMOGLOBIN CONC (BEAKER) (test 30.1 GM/DL 32.3-36.5 oouo=106) RED CELL DISTRIBUTION WIDTH (BEAKER) (test 15.9 % 11.6-14.4 hzad=673) PLATELET COUNT (BEAKER) (test jwql=143) 479 K/CU MM 150-450 MEAN PLATELET VOLUME (BEAKER) (test bkbx=639) 9.7 fL 9.4-12.4 NUCLEATED RED BLOOD CELLS (BEAKER) (test 0 /100 WBC 0-0 nhgj=642) NEUTROPHILS RELATIVE PERCENT (BEAKER) (test 78 % dxru=254) LYMPHOCYTES RELATIVE PERCENT (BEAKER) (test 9 % sbxv=615) MONOCYTES RELATIVE PERCENT (BEAKER) (test 7 % rdxj=834) EOSINOPHILS RELATIVE PERCENT (BEAKER) (test 5 % wcrw=220) BASOPHILS RELATIVE PERCENT (BEAKER) (test 1 % dhzm=340) NEUTROPHILS ABSOLUTE COUNT (BEAKER) (test 8.06 K/ L 1.78-5.38 izli=265) LYMPHOCYTES ABSOLUTE COUNT (BEAKER) (test 0.93 K/ L 1.32-3.57 vhgv=428) MONOCYTES ABSOLUTE COUNT (BEAKER) (test 0.68 K/ L 0.30-0.82 libk=655) EOSINOPHILS ABSOLUTE COUNT (BEAKER) (test 0.52 K/ L 0.04-0.54 uhjg=224) BASOPHILS ABSOLUTE COUNT (BEAKER) (test 0.07 K/ L 0.01-0.08 grnv=318) IMMATURE GRANULOCYTES-RELATIVE PERCENT (BEAKER) 1 % 0-1 (test quay=9634) POCT-GLUCOSE [id number] 21:22:00 Test Item Value Reference Range Comments POC-GLUCOSE METER (BEAKER) 232 mg/dL 70-110 TESTED AT [address] (test aqdl=5622) [place] [address] POCT-GLUCOSE [id number] 17:34:00 Test Item Value Reference Range Comments POC-GLUCOSE METER (BEAKER) 205 mg/dL 70-110 TESTED AT [address] (test bmyw=2617) [place] [address] POCT-GLUCOSE [id number] 08:22:00 Test Item Value Reference Range Comments POC-GLUCOSE METER (BEAKER) 163 mg/dL 70-110 TESTED AT [address] (test fggq=4771) [place] [id number] CBC W/PLT COUNT & AUTO [id number] 05:45:00 Test Item Value Reference Range Comments WHITE BLOOD CELL COUNT (BEAKER) (test yknq=162) 9.6 K/ L 3.5-10.5 RED BLOOD CELL COUNT (BEAKER) (test prii=443) 2.63 M/ L 4.63-6.08 HEMOGLOBIN (BEAKER) (test nrme=415) 8.2 GM/DL 13.7-17.5 HEMATOCRIT (BEAKER) (test cfdl=619) 27.0 % 40.1-51.0 MEAN CORPUSCULAR VOLUME (BEAKER) (test qvui=696) 102.7 fL 79.0-92.2 MEAN CORPUSCULAR HEMOGLOBIN (BEAKER) (test 31.2 pg 25.7-32.2 bcfd=464) MEAN CORPUSCULAR HEMOGLOBIN CONC (BEAKER) (test 30.4 GM/DL 32.3-36.5 lrlg=450) RED CELL DISTRIBUTION WIDTH (BEAKER) (test 15.8 % 11.6-14.4 dfqn=903) PLATELET COUNT (BEAKER) (test gaxp=180) 469 K/CU MM 150-450 MEAN PLATELET VOLUME (BEAKER) (test fwim=229) 9.4 fL 9.4-12.4 NUCLEATED RED BLOOD CELLS (BEAKER) (test 0 /100 WBC 0-0 plra=290) NEUTROPHILS RELATIVE PERCENT (BEAKER) (test 75 % sxxx=500) LYMPHOCYTES RELATIVE PERCENT (BEAKER) (test 11 % ugkt=936) MONOCYTES RELATIVE PERCENT (BEAKER) (test 7 % kppt=324) EOSINOPHILS RELATIVE PERCENT (BEAKER) (test 6 % hfmb=001) BASOPHILS RELATIVE PERCENT (BEAKER) (test 1 % seak=246) NEUTROPHILS ABSOLUTE COUNT (BEAKER) (test 7.13 K/ L 1.78-5.38 fxhm=831) LYMPHOCYTES ABSOLUTE COUNT (BEAKER) (test 1.03 K/ L 1.32-3.57 wrog=256) MONOCYTES ABSOLUTE COUNT (BEAKER) (test 0.71 K/ L 0.30-0.82 mppn=275) EOSINOPHILS ABSOLUTE COUNT (BEAKER) (test 0.57 K/ L 0.04-0.54 zgst=249) BASOPHILS ABSOLUTE COUNT (BEAKER) (test 0.06 K/ L 0.01-0.08 mmpx=793) IMMATURE GRANULOCYTES-RELATIVE PERCENT (BEAKER) 1 % 0-1 (test zvdu=9174) BASIC METABOLIC [id number] 05:43:00 Test Item Value Reference Range Comments SODIUM (BEAKER) (test 131 meq/L 136-145 asxi=403) POTASSIUM (BEAKER) (test 4.2 meq/L 3.5-5.1 zuet=597) CHLORIDE (BEAKER) (test 105 meq/L 98-107 rsnf=619) CO2 (BEAKER) (test 21 meq/L 22-29 jtfp=263) BLOOD UREA NITROGEN 31 mg/dL 7-21 (BEAKER) (test fmpd=119) CREATININE (BEAKER) (test 1.32 mg/dL 0.57-1.25 iulu=391) GLUCOSE RANDOM (BEAKER) 138 mg/dL 70-105 (test coei=301) CALCIUM (BEAKER) (test 8.0 mg/dL 8.4-10.2 vhwb=345) EGFR (BEAKER) (test 53 mL/min/1.73 sq m ESTIMATED GFR IS NOT wuau=0308) ACCURATE CREATININE CLEARANCE IN PREDICTING GLOMERULAR FILTRATION RATE. ESTIMATED GFR IS NOT APPLICABLE FOR DIALYSIS PATIENTS. POCT-GLUCOSE [id number] 21:11:00 Test Item Value Reference Range Comments POC-GLUCOSE METER (BEAKER) 201 mg/dL 70-110 TESTED AT [address] (test xaue=1686) [place] [address] POCT-GLUCOSE [id number] 18:21:00 Test Item Value Reference Range Comments POC-GLUCOSE METER (BEAKER) 187 mg/dL 70-110 TESTED AT [address] (test kuzv=7135) [place] [address] POCT-GLUCOSE [id number] 13:12:00 Test Item Value Reference Range Comments POC-GLUCOSE METER (BEAKER) 162 mg/dL 70-110 TESTED AT [address] (test cbvk=3230) [place] [address] POCT-GLUCOSE [id number] 08:08:00 Test Item Value Reference Range Comments POC-GLUCOSE METER (BEAKER) 138 mg/dL 70-110 TESTED AT [address] (test wkmw=8394) [place] [address] BASIC METABOLIC [id number] 06:47:00 Test Item Value Reference Range Comments SODIUM (BEAKER) (test 133 meq/L 136-145 meii=235) POTASSIUM (BEAKER) (test 4.8 meq/L 3.5-5.1 ewfd=959) CHLORIDE (BEAKER) (test 105 meq/L 98-107 sqma=338) CO2 (BEAKER) (test 20 meq/L 22-29 xilk=345) BLOOD UREA NITROGEN 31 mg/dL 7-21 (BEAKER) (test sotz=800) CREATININE (BEAKER) (test 1.35 mg/dL 0.57-1.25 dsxy=862) GLUCOSE RANDOM (BEAKER) 129 mg/dL 70-105 (test wcht=837) CALCIUM (BEAKER) (test 7.9 mg/dL 8.4-10.2 gpmy=408) EGFR (BEAKER) (test 52 mL/min/1.73 sq m ESTIMATED GFR IS NOT mpad=7781) ACCURATE CREATININE CLEARANCE IN PREDICTING GLOMERULAR FILTRATION RATE. ESTIMATED GFR IS NOT APPLICABLE FOR DIALYSIS PATIENTS. CBC W/PLT COUNT & AUTO [id number] 05:08:00 Test Item Value Reference Range Comments WHITE BLOOD CELL COUNT (BEAKER) (test zzpa=479) 10.4 K/ L 3.5-10.5 RED BLOOD CELL COUNT (BEAKER) (test zhtj=608) 2.92 M/ L 4.63-6.08 HEMOGLOBIN (BEAKER) (test qotk=831) 9.0 GM/DL 13.7-17.5 HEMATOCRIT (BEAKER) (test cnxw=734) 29.7 % 40.1-51.0 MEAN CORPUSCULAR VOLUME (BEAKER) (test gtii=693) 101.7 fL 79.0-92.2 MEAN CORPUSCULAR HEMOGLOBIN (BEAKER) (test 30.8 pg 25.7-32.2 uimt=796) MEAN CORPUSCULAR HEMOGLOBIN CONC (BEAKER) (test 30.3 GM/DL 32.3-36.5 vmcr=943) RED CELL DISTRIBUTION WIDTH (BEAKER) (test 15.9 % 11.6-14.4 vigg=550) PLATELET COUNT (BEAKER) (test ywdd=633) 537 K/CU MM 150-450 MEAN PLATELET VOLUME (BEAKER) (test fsoq=128) 9.7 fL 9.4-12.4 NUCLEATED RED BLOOD CELLS (BEAKER) (test 0 /100 WBC 0-0 ofua=868) NEUTROPHILS RELATIVE PERCENT (BEAKER) (test 78 % ulrs=436) LYMPHOCYTES RELATIVE PERCENT (BEAKER) (test 9 % oale=701) MONOCYTES RELATIVE PERCENT (BEAKER) (test 7 % cdkg=338) EOSINOPHILS RELATIVE PERCENT (BEAKER) (test 5 % awit=190) BASOPHILS RELATIVE PERCENT (BEAKER) (test 1 % wpfk=809) NEUTROPHILS ABSOLUTE COUNT (BEAKER) (test 8.09 K/ L 1.78-5.38 mjts=610) LYMPHOCYTES ABSOLUTE COUNT (BEAKER) (test 0.96 K/ L 1.32-3.57 zxvi=079) MONOCYTES ABSOLUTE COUNT (BEAKER) (test 0.68 K/ L 0.30-0.82 qwzs=510) EOSINOPHILS ABSOLUTE COUNT (BEAKER) (test 0.52 K/ L 0.04-0.54 qqps=041) BASOPHILS ABSOLUTE COUNT (BEAKER) (test 0.05 K/ L 0.01-0.08 dtgj=430) IMMATURE GRANULOCYTES-RELATIVE PERCENT (BEAKER) 1 % 0-1 (test mals=5062) POCT-GLUCOSE [id number] 21:13:00 Test Item Value Reference Range Comments POC-GLUCOSE METER (BEAKER) 169 mg/dL 70-110 TESTED AT [address] (test llqr=8572) [facility] [address] RAD, CHEST, 1 VIEW, NON [id number] 17:14:00Reason for exam:->Chest Tube RemovalShould this be [...] MDReport Verified Date/Time: 08/11/2017 17:14:23 Reading Location: [address] Radiology Reading Room POCT-GLUCOSE [id number] 17:09:00 Test Item Value Reference Range Comments POC-GLUCOSE METER (BEAKER) 238 mg/dL 70-110 TESTED AT [address] (test jggi=5312) [facility] [address] RAD, CHEST, 1 VIEW, NON [id number] 13:25:00Reason for exam:->pl effusionShould this be performed at the bedside?->YesFINAL REPORT AP chest HISTORY: Pleural effusion COMPARISON: 08/05/2017 IMPRESSION :Stable cardiac silhouette enlargement. Layering left effusion unchanged. Possible small right effusion. No pneumothorax. Mild vascular congestion. Signed : Manuel Fraser MDReport Verified Date/Time: 08/11/2017 13:25:17 Reading Location: [facility] Reading Room POCT-GLUCOSE [id number] 12:07:00 Test Item Value Reference Range Comments POC-GLUCOSE METER (BEAKER) 244 mg/dL 70-110 TESTED AT [address] (test sron=2716) [facility] [address] POCT-GLUCOSE [id number] 08:49:00 Test Item Value Reference Range Comments POC-GLUCOSE METER (BEAKER) 199 mg/dL 70-110 TESTED AT [address] (test fygi=8165) [facility] [address] BASIC METABOLIC [id number] 07:01:00 Test Item Value Reference Range Comments SODIUM (BEAKER) (test 133 meq/L 136-145 pwcw=832) POTASSIUM (BEAKER) (test 4.6 meq/L 3.5-5.1 gkyk=663) CHLORIDE (BEAKER) (test 105 meq/L 98-107 tspy=056) CO2 (BEAKER) (test 20 meq/L 22-29 nkou=287) BLOOD UREA NITROGEN 33 mg/dL 7-21 (BEAKER) (test jsdq=211) CREATININE (BEAKER) (test 1.44 mg/dL 0.57-1.25 rerm=302) GLUCOSE RANDOM (BEAKER) 132 mg/dL 70-105 (test wrcj=840) CALCIUM (BEAKER) (test 8.1 mg/dL 8.4-10.2 dmry=982) EGFR (BEAKER) (test 48 mL/min/1.73 sq m ESTIMATED GFR IS NOT xpoh=7145) ACCURATE CREATININE CLEARANCE IN PREDICTING GLOMERULAR FILTRATION RATE. ESTIMATED GFR IS NOT APPLICABLE FOR DIALYSIS PATIENTS. CBC W/PLT COUNT & AUTO [id number] 05:42:00 Test Item Value Reference Range Comments WHITE BLOOD CELL COUNT (BEAKER) (test iskk=838) 10.9 K/ L 3.5-10.5 RED BLOOD CELL COUNT (BEAKER) (test iiws=653) 2.84 M/ L 4.63-6.08 HEMOGLOBIN (BEAKER) (test dunl=092) 8.9 GM/DL 13.7-17.5 HEMATOCRIT (BEAKER) (test kukk=948) 30.0 % 40.1-51.0 MEAN CORPUSCULAR VOLUME (BEAKER) (test kcrn=677) 105.6 fL 79.0-92.2 MEAN CORPUSCULAR HEMOGLOBIN (BEAKER) (test 31.3 pg 25.7-32.2 aqog=654) MEAN CORPUSCULAR HEMOGLOBIN CONC (BEAKER) (test 29.7 GM/DL 32.3-36.5 jxup=322) RED CELL DISTRIBUTION WIDTH (BEAKER) (test 15.8 % 11.6-14.4 mmbj=721) PLATELET COUNT (BEAKER) (test ikjl=423) 528 K/CU MM 150-450 MEAN PLATELET VOLUME (BEAKER) (test pdun=352) 10.1 fL 9.4-12.4 NUCLEATED RED BLOOD CELLS (BEAKER) (test 0 /100 WBC 0-0 ybzi=006) NEUTROPHILS RELATIVE PERCENT (BEAKER) (test 77 % gpeq=072) LYMPHOCYTES RELATIVE PERCENT (BEAKER) (test 9 % erbo=857) MONOCYTES RELATIVE PERCENT (BEAKER) (test 7 % fmjv=656) EOSINOPHILS RELATIVE PERCENT (BEAKER) (test 5 % allr=821) BASOPHILS RELATIVE PERCENT (BEAKER) (test 1 % nqve=646) NEUTROPHILS ABSOLUTE COUNT (BEAKER) (test 8.44 K/ L 1.78-5.38 prqr=768) LYMPHOCYTES ABSOLUTE COUNT (BEAKER) (test 1.01 K/ L 1.32-3.57 ivrc=714) MONOCYTES ABSOLUTE COUNT (BEAKER) (test 0.75 K/ L 0.30-0.82 zvvh=305) EOSINOPHILS ABSOLUTE COUNT (BEAKER) (test 0.53 K/ L 0.04-0.54 tvle=242) BASOPHILS ABSOLUTE COUNT (BEAKER) (test 0.08 K/ L 0.01-0.08 mmvn=504) IMMATURE GRANULOCYTES-RELATIVE PERCENT (BEAKER) 1 % 0-1 (test jpgh=7928) POCT-GLUCOSE [id number] 21:27:00 Test Item Value Reference Range Comments POC-GLUCOSE METER (BEAKER) 193 mg/dL 70-110 TESTED AT [address] (test dnxg=9334) [facility] [address] POCT-GLUCOSE [id number] 17:12:00 Test Item Value Reference Range Comments POC-GLUCOSE METER (BEAKER) 195 mg/dL 70-110 TESTED AT [address] (test ulcl=9206) [facility] [address] POCT-GLUCOSE [id number] 12:43:00 Test Item Value Reference Range Comments POC-GLUCOSE METER (BEAKER) 215 mg/dL 70-110 TESTED AT [address] (test pyki=9248) [facility] [address] POCT-GLUCOSE [id number] 07:30:00 Test Item Value Reference Range Comments POC-GLUCOSE METER (BEAKER) 160 mg/dL 70-110 TESTED AT [address] (test jjvw=1232) [facility] [address] CBC W/PLT COUNT & AUTO [id number] 05:56:00 Test Item Value Reference Range Comments WHITE BLOOD CELL COUNT 10.0 K/ L 3.5-10.5 (BEAKER) (test mywq=973) RED BLOOD CELL COUNT (BEAKER) 2.96 M/ L 4.63-6.08 (test dhzm=575) HEMOGLOBIN (BEAKER) (test 9.1 GM/DL 13.7-17.5 ykkq=464) HEMATOCRIT (BEAKER) (test 30.1 % 40.1-51.0 qbom=019) MEAN CORPUSCULAR VOLUME 101.7 fL 79.0-92.2 (BEAKER) (test olxa=491) MEAN CORPUSCULAR HEMOGLOBIN 30.7 pg 25.7-32.2 (BEAKER) (test ehin=403) MEAN CORPUSCULAR HEMOGLOBIN 30.2 GM/DL 32.3-36.5 CONC (BEAKER) (test zphr=477) RED CELL DISTRIBUTION WIDTH 15.7 % 11.6-14.4 (BEAKER) (test klba=666) PLATELET COUNT (BEAKER) (test 510 K/CU MM 150-450 Discordant PLT result xjof=835) Compared to previous one, Clinical correlation required. MEAN PLATELET VOLUME (BEAKER) 10.0 fL 9.4-12.4 (test vmkr=561) NUCLEATED RED BLOOD CELLS 0 /100 WBC 0-0 (BEAKER) (test poju=025) NEUTROPHILS RELATIVE PERCENT 76 % (BEAKER) (test poxp=859) LYMPHOCYTES RELATIVE PERCENT 10 % (BEAKER) (test xjax=570) MONOCYTES RELATIVE PERCENT 8 % (BEAKER) (test ijbe=596) EOSINOPHILS RELATIVE PERCENT 5 % (BEAKER) (test hgbo=173) BASOPHILS RELATIVE PERCENT 1 % (BEAKER) (test uzjh=741) NEUTROPHILS ABSOLUTE COUNT 7.55 K/ L 1.78-5.38 (BEAKER) (test kagy=895) LYMPHOCYTES ABSOLUTE COUNT 1.01 K/ L 1.32-3.57 (BEAKER) (test uuej=082) MONOCYTES ABSOLUTE COUNT 0.78 K/ L 0.30-0.82 (BEAKER) (test oemu=088) EOSINOPHILS ABSOLUTE COUNT 0.48 K/ L 0.04-0.54 (BEAKER) (test qxfo=324) BASOPHILS ABSOLUTE COUNT 0.06 K/ L 0.01-0.08 (BEAKER) (test fyea=104) IMMATURE 1 % 0-1 GRANULOCYTES-RELATIVE PERCENT (BEAKER) (test qdvv=3623) BASIC METABOLIC [id number] 05:42:00 Test Item Value Reference Range Comments SODIUM (BEAKER) (test 132 meq/L 136-145 jigs=482) POTASSIUM (BEAKER) (test 4.5 meq/L 3.5-5.1 ysbe=807) CHLORIDE (BEAKER) (test 104 meq/L 98-107 btis=704) CO2 (BEAKER) (test 19 meq/L 22-29 xfjr=332) BLOOD UREA NITROGEN 30 mg/dL 7-21 (BEAKER) (test culb=531) CREATININE (BEAKER) (test 1.32 mg/dL 0.57-1.25 eyhk=642) GLUCOSE RANDOM (BEAKER) 131 mg/dL 70-105 (test xwaa=319) CALCIUM (BEAKER) (test 7.9 mg/dL 8.4-10.2 fkkv=954) EGFR (BEAKER) (test 53 mL/min/1.73 sq m ESTIMATED GFR IS NOT njre=3020) ACCURATE CREATININE CLEARANCE IN PREDICTING GLOMERULAR FILTRATION RATE. ESTIMATED GFR IS NOT APPLICABLE FOR DIALYSIS PATIENTS. POCT-GLUCOSE [id number] 21:16:00 Test Item Value Reference Range Comments POC-GLUCOSE METER (BEAKER) 230 mg/dL 70-110 TESTED AT [address] (test dgvu=7619) [place] [address] POCT-GLUCOSE [id number] 19:38:00 Test Item Value Reference Range Comments POC-GLUCOSE METER (BEAKER) 239 mg/dL 70-110 TESTED AT [address] (test pmul=7749) [place] [address] BLOOD [id number] 18:00:00 Test Item Value Reference Range Comments CULTURE (BEAKER) (test gvbh=4377) No growth in 5 days BLOOD [id number] 18:00:00 Test Item Value Reference Range Comments CULTURE (BEAKER) (test zgkr=1063) No growth in 5 days POCT-GLUCOSE [id number] 11:57:00 Test Item Value Reference Range Comments POC-GLUCOSE METER (BEAKER) 203 mg/dL 70-110 TESTED AT [address] (test drra=0606) [place] [address] POCT-GLUCOSE [id number] 08:50:00 Test Item Value Reference Range Comments POC-GLUCOSE METER (BEAKER) 140 mg/dL 70-110 TESTED AT [address] (test kwjh=4442) [place] [address] BASIC METABOLIC [id number] 05:31:00 Test Item Value Reference Range Comments SODIUM (BEAKER) (test 134 meq/L 136-145 whax=801) POTASSIUM (BEAKER) (test 4.7 meq/L 3.5-5.1 wjvp=226) CHLORIDE (BEAKER) (test 104 meq/L 98-107 vcig=260) CO2 (BEAKER) (test 24 meq/L 22-29 gkwp=535) BLOOD UREA NITROGEN 29 mg/dL 7-21 (BEAKER) (test rvba=608) CREATININE (BEAKER) (test 1.38 mg/dL 0.57-1.25 mkmb=173) GLUCOSE RANDOM (BEAKER) 139 mg/dL 70-105 (test xanz=364) CALCIUM (BEAKER) (test 8.1 mg/dL 8.4-10.2 vgwj=605) EGFR (BEAKER) (test 50 mL/min/1.73 sq m ESTIMATED GFR IS NOT xlcq=8688) ACCURATE CREATININE CLEARANCE IN PREDICTING GLOMERULAR FILTRATION RATE. ESTIMATED GFR IS NOT APPLICABLE FOR DIALYSIS PATIENTS. CBC W/PLT COUNT & AUTO [id number] 05:08:00 Test Item Value Reference Range Comments WHITE BLOOD CELL COUNT (BEAKER) (test aedo=275) 11.7 K/ L 3.5-10.5 RED BLOOD CELL COUNT (BEAKER) (test yrpf=522) 3.06 M/ L 4.63-6.08 HEMOGLOBIN (BEAKER) (test foog=492) 9.8 GM/DL 13.7-17.5 HEMATOCRIT (BEAKER) (test dkia=349) 31.3 % 40.1-51.0 MEAN CORPUSCULAR VOLUME (BEAKER) (test tlnf=592) 102.3 fL 79.0-92.2 MEAN CORPUSCULAR HEMOGLOBIN (BEAKER) (test 32.0 pg 25.7-32.2 nzek=833) MEAN CORPUSCULAR HEMOGLOBIN CONC (BEAKER) (test 31.3 GM/DL 32.3-36.5 tmjq=296) RED CELL DISTRIBUTION WIDTH (BEAKER) (test 15.5 % 11.6-14.4 maci=915) PLATELET COUNT (BEAKER) (test rkut=764) 576 K/CU MM 150-450 MEAN PLATELET VOLUME (BEAKER) (test hjqi=316) 9.8 fL 9.4-12.4 NUCLEATED RED BLOOD CELLS (BEAKER) (test 0 /100 WBC 0-0 nabx=820) NEUTROPHILS RELATIVE PERCENT (BEAKER) (test 78 % mjnf=197) LYMPHOCYTES RELATIVE PERCENT (BEAKER) (test 8 % wszc=032) MONOCYTES RELATIVE PERCENT (BEAKER) (test 6 % ifum=212) EOSINOPHILS RELATIVE PERCENT (BEAKER) (test 5 % qnfd=686) BASOPHILS RELATIVE PERCENT (BEAKER) (test 1 % xjku=939) NEUTROPHILS ABSOLUTE COUNT (BEAKER) (test 9.20 K/ L 1.78-5.38 dxgq=970) LYMPHOCYTES ABSOLUTE COUNT (BEAKER) (test 0.98 K/ L 1.32-3.57 jdil=275) MONOCYTES ABSOLUTE COUNT (BEAKER) (test 0.71 K/ L 0.30-0.82 qxxb=652) EOSINOPHILS ABSOLUTE COUNT (BEAKER) (test 0.60 K/ L 0.04-0.54 udbx=895) BASOPHILS ABSOLUTE COUNT (BEAKER) (test 0.06 K/ L 0.01-0.08 lcie=888) IMMATURE GRANULOCYTES-RELATIVE PERCENT (BEAKER) 2 % 0-1 (test qtfp=0934) POCT-GLUCOSE [id number] 21:11:00 Test Item Value Reference Range Comments POC-GLUCOSE METER (BEAKER) 195 mg/dL 70-110 TESTED AT [address] (test morn=7004) [facility] [id number] POCT-GLUCOSE [id number] 17:47:00 Test Item Value Reference Range Comments POC-GLUCOSE METER (BEAKER) 175 mg/dL 70-110 TESTED AT [address] (test fvrt=5835) [facility] [address] POCT-GLUCOSE [id number] 12:31:00 Test Item Value Reference Range Comments POC-GLUCOSE METER (BEAKER) 219 mg/dL 70-110 TESTED AT [address] (test rmtx=0537) [place] [id number] 10:59:00 Test Item Value Reference Range Comments MAGNESIUM (BEAKER) (test bciy=406) 1.9 mg/dL 1.6-2.6 BASIC METABOLIC [id number] 10:59:00 Test Item Value Reference Range Comments SODIUM (BEAKER) (test 134 meq/L 136-145 rzni=929) POTASSIUM (BEAKER) (test 4.4 meq/L 3.5-5.1 zaoe=342) CHLORIDE (BEAKER) (test 104 meq/L 98-107 qkyu=635) CO2 (BEAKER) (test 23 meq/L 22-29 rdhv=912) BLOOD UREA NITROGEN 29 mg/dL 7-21 (BEAKER) (test vesq=291) CREATININE (BEAKER) (test 1.54 mg/dL 0.57-1.25 htpx=376) GLUCOSE RANDOM (BEAKER) 156 mg/dL 70-105 (test bwnq=429) CALCIUM (BEAKER) (test 8.1 mg/dL 8.4-10.2 gfuk=548) EGFR (BEAKER) (test 44 mL/min/1.73 sq m ESTIMATED GFR IS NOT klnk=1525) ACCURATE CREATININE CLEARANCE IN PREDICTING GLOMERULAR FILTRATION RATE. ESTIMATED GFR IS NOT APPLICABLE FOR DIALYSIS PATIENTS. POCT-GLUCOSE [id number] 08:13:00 Test Item Value Reference Range Comments POC-GLUCOSE METER (BEAKER) 159 mg/dL 70-110 TESTED AT [facility] [address] [facility] (test jghw=2899) [facility] [address] CBC W/PLT COUNT & AUTO [id number] 05:28:00 Test Item Value Reference Range Comments WHITE BLOOD CELL COUNT (BEAKER) (test vrtb=400) 13.8 K/ L 3.5-10.5 RED BLOOD CELL COUNT (BEAKER) (test ictp=278) 2.68 M/ L 4.63-6.08 HEMOGLOBIN (BEAKER) (test gwjv=333) 8.3 GM/DL 13.7-17.5 HEMATOCRIT (BEAKER) (test yjwm=017) 27.7 % 40.1-51.0 MEAN CORPUSCULAR VOLUME (BEAKER) (test yauy=797) 103.4 fL 79.0-92.2 MEAN CORPUSCULAR HEMOGLOBIN (BEAKER) (test 31.0 pg 25.7-32.2 xqkv=363) MEAN CORPUSCULAR HEMOGLOBIN CONC (BEAKER) (test 30.0 GM/DL 32.3-36.5 bpdf=901) RED CELL DISTRIBUTION WIDTH (BEAKER) (test 15.6 % 11.6-14.4 dwzy=164) PLATELET COUNT (BEAKER) (test bola=537) 541 K/CU MM 150-450 MEAN PLATELET VOLUME (BEAKER) (test inep=420) 11.0 fL 9.4-12.4 NUCLEATED RED BLOOD CELLS (BEAKER) (test 0 /100 WBC 0-0 yntc=185) NEUTROPHILS RELATIVE PERCENT (BEAKER) (test 79 % ewkj=734) LYMPHOCYTES RELATIVE PERCENT (BEAKER) (test 8 % htit=829) MONOCYTES RELATIVE PERCENT (BEAKER) (test 7 % bgzk=741) EOSINOPHILS RELATIVE PERCENT (BEAKER) (test 4 % hdyn=008) BASOPHILS RELATIVE PERCENT (BEAKER) (test 1 % rylh=087) NEUTROPHILS ABSOLUTE COUNT (BEAKER) (test 10.87 K/ L 1.78-5.38 mytv=494) LYMPHOCYTES ABSOLUTE COUNT (BEAKER) (test 1.05 K/ L 1.32-3.57 mftv=513) MONOCYTES ABSOLUTE COUNT (BEAKER) (test 0.91 K/ L 0.30-0.82 xmzk=072) EOSINOPHILS ABSOLUTE COUNT (BEAKER) (test 0.61 K/ L 0.04-0.54 koyp=321) BASOPHILS ABSOLUTE COUNT (BEAKER) (test 0.09 K/ L 0.01-0.08 lmev=134) IMMATURE GRANULOCYTES-RELATIVE PERCENT (BEAKER) 2 % 0-1 (test byjo=5773) POCT-GLUCOSE [id number] 21:07:00 Test Item Value Reference Range Comments POC-GLUCOSE METER (BEAKER) 201 mg/dL 70-110 TESTED AT [address] (test nqou=5538) [place] [address] POCT-GLUCOSE [id number] 17:02:00 Test Item Value Reference Range Comments POC-GLUCOSE METER (BEAKER) 229 mg/dL 70-110 TESTED AT [address] (test quai=0439) [place] [address] POCT-GLUCOSE [id number] 12:10:00 Test Item Value Reference Range Comments POC-GLUCOSE METER (BEAKER) 225 mg/dL 70-110 TESTED AT [address] (test eyfl=5297) [place] [address] URINE [id number] 08:57:00 Test Item Value Reference Range Comments CULTURE (BEAKER) (test kzqc=2282) No growth GRAM STAIN RESULT (BEAKER) (test No WBCs xaww=5841) GRAM STAIN RESULT (BEAKER) (test No organisms seen wfix=10747) POCT-GLUCOSE [id number] 07:40:00 Test Item Value Reference Range Comments POC-GLUCOSE METER (BEAKER) 207 mg/dL 70-110 TESTED AT [address] (test fblv=2166) [place] [address] [id number] 05:58:00 Test Item Value Reference Range Comments MAGNESIUM (BEAKER) (test pacw=894) 1.7 mg/dL 1.6-2.6 BASIC METABOLIC [id number] 05:58:00 Test Item Value Reference Range Comments SODIUM (BEAKER) (test 134 meq/L 136-145 gqti=892) POTASSIUM (BEAKER) (test 4.3 meq/L 3.5-5.1 elue=000) CHLORIDE (BEAKER) (test 104 meq/L 98-107 cmwo=247) CO2 (BEAKER) (test 22 meq/L 22-29 yxlp=666) BLOOD UREA NITROGEN 29 mg/dL 7-21 (BEAKER) (test lful=155) CREATININE (BEAKER) (test 1.39 mg/dL 0.57-1.25 wihz=382) GLUCOSE RANDOM (BEAKER) 135 mg/dL 70-105 (test fdpy=519) CALCIUM (BEAKER) (test 8.2 mg/dL 8.4-10.2 ikgl=274) EGFR (BEAKER) (test 50 mL/min/1.73 sq m ESTIMATED GFR IS NOT pbvy=8494) ACCURATE CREATININE CLEARANCE IN PREDICTING GLOMERULAR FILTRATION RATE. ESTIMATED GFR IS NOT APPLICABLE FOR DIALYSIS PATIENTS. CBC W/PLT COUNT & AUTO [id number] 05:08:00 Test Item Value Reference Range Comments WHITE BLOOD CELL COUNT (BEAKER) (test mksc=709) 14.8 K/ L 3.5-10.5 RED BLOOD CELL COUNT (BEAKER) (test gsve=357) 3.11 M/ L 4.63-6.08 HEMOGLOBIN (BEAKER) (test rbgs=741) 9.9 GM/DL 13.7-17.5 HEMATOCRIT (BEAKER) (test ixle=025) 32.0 % 40.1-51.0 MEAN CORPUSCULAR VOLUME (BEAKER) (test klwa=976) 102.9 fL 79.0-92.2 MEAN CORPUSCULAR HEMOGLOBIN (BEAKER) (test 31.8 pg 25.7-32.2 shym=035) MEAN CORPUSCULAR HEMOGLOBIN CONC (BEAKER) (test 30.9 GM/DL 32.3-36.5 byxr=540) RED CELL DISTRIBUTION WIDTH (BEAKER) (test 15.6 % 11.6-14.4 opdl=358) PLATELET COUNT (BEAKER) (test sqiv=081) 580 K/CU MM 150-450 MEAN PLATELET VOLUME (BEAKER) (test lnbi=903) 10.3 fL 9.4-12.4 NUCLEATED RED BLOOD CELLS (BEAKER) (test 0 /100 WBC 0-0 rxbo=785) NEUTROPHILS RELATIVE PERCENT (BEAKER) (test 79 % rbcq=503) LYMPHOCYTES RELATIVE PERCENT (BEAKER) (test 8 % uzlr=606) MONOCYTES RELATIVE PERCENT (BEAKER) (test 6 % effn=091) EOSINOPHILS RELATIVE PERCENT (BEAKER) (test 4 % wqpw=947) BASOPHILS RELATIVE PERCENT (BEAKER) (test 1 % lolj=103) NEUTROPHILS ABSOLUTE COUNT (BEAKER) (test 11.68 K/ L 1.78-5.38 sbvy=230) LYMPHOCYTES ABSOLUTE COUNT (BEAKER) (test 1.21 K/ L 1.32-3.57 xlvj=028) MONOCYTES ABSOLUTE COUNT (BEAKER) (test 0.89 K/ L 0.30-0.82 kwdx=042) EOSINOPHILS ABSOLUTE COUNT (BEAKER) (test 0.61 K/ L 0.04-0.54 hjsc=757) BASOPHILS ABSOLUTE COUNT (BEAKER) (test 0.09 K/ L 0.01-0.08 muhc=908) IMMATURE GRANULOCYTES-RELATIVE PERCENT (BEAKER) 2 % 0-1 (test oprq=3648) POCT-GLUCOSE [id number] 21:17:00 Test Item Value Reference Range Comments POC-GLUCOSE METER (BEAKER) 260 mg/dL 70-110 TESTED AT [address] (test gfql=4336) [place] [address] POCT-GLUCOSE [id number] 17:10:00 Test Item Value Reference Range Comments POC-GLUCOSE METER (BEAKER) 190 mg/dL 70-110 TESTED AT [address] (test dlwz=6208) [place] [id number] POCT-GLUCOSE [id number] 12:17:00 Test Item Value Reference Range Comments POC-GLUCOSE METER (BEAKER) 241 mg/dL 70-110 TESTED AT [address] (test fdyj=9546) [place] [address] CBC W/PLT COUNT & AUTO [id number] 08:29:00 Test Item Value Reference Range Comments WHITE BLOOD CELL COUNT (BEAKER) (test gtea=752) 16.5 K/ L 3.5-10.5 RED BLOOD CELL COUNT (BEAKER) (test ceao=101) 2.83 M/ L 4.63-6.08 HEMOGLOBIN (BEAKER) (test ioso=418) 8.8 GM/DL 13.7-17.5 HEMATOCRIT (BEAKER) (test vjqf=451) 28.8 % 40.1-51.0 MEAN CORPUSCULAR VOLUME (BEAKER) (test vqoo=467) 101.8 fL 79.0-92.2 MEAN CORPUSCULAR HEMOGLOBIN (BEAKER) (test 31.1 pg 25.7-32.2 oyno=039) MEAN CORPUSCULAR HEMOGLOBIN CONC (BEAKER) (test 30.6 GM/DL 32.3-36.5 tbvo=357) RED CELL DISTRIBUTION WIDTH (BEAKER) (test 15.4 % 11.6-14.4 uczi=191) PLATELET COUNT (BEAKER) (test wpmw=852) 535 K/CU MM 150-450 MEAN PLATELET VOLUME (BEAKER) (test pczt=424) 10.7 fL 9.4-12.4 NUCLEATED RED BLOOD CELLS (BEAKER) (test 1 /100 WBC 0-0 mshw=565) NEUTROPHILS RELATIVE PERCENT (BEAKER) (test 78 % wrhz=647) LYMPHOCYTES RELATIVE PERCENT (BEAKER) (test 9 % blph=841) MONOCYTES RELATIVE PERCENT (BEAKER) (test 7 % rcxl=214) EOSINOPHILS RELATIVE PERCENT (BEAKER) (test 3 % oyau=903) BASOPHILS RELATIVE PERCENT (BEAKER) (test 0 % agmu=193) NEUTROPHILS ABSOLUTE COUNT (BEAKER) (test 12.77 K/ L 1.78-5.38 jfrx=136) LYMPHOCYTES ABSOLUTE COUNT (BEAKER) (test 1.45 K/ L 1.32-3.57 gxhu=091) MONOCYTES ABSOLUTE COUNT (BEAKER) (test 1.12 K/ L 0.30-0.82 xtea=390) EOSINOPHILS ABSOLUTE COUNT (BEAKER) (test 0.55 K/ L 0.04-0.54 mouc=479) BASOPHILS ABSOLUTE COUNT (BEAKER) (test 0.07 K/ L 0.01-0.08 fpfj=761) IMMATURE GRANULOCYTES-RELATIVE PERCENT (BEAKER) 3 % 0-1 (test oemz=6697) (MANUAL DIFFERENTIAL)2017-08-06 08:29:00 Test Item Value Reference Range Comments TOTAL COUNTED (BEAKER) (test omds=7406) POCT-GLUCOSE [id number] 07:22:00 Test Item Value Reference Range Comments POC-GLUCOSE METER (BEAKER) 183 mg/dL 70-110 TESTED AT [address] (test wbjv=4508) [facility] [address] [id number] 06:21:00 Test Item Value Reference Range Comments MAGNESIUM (BEAKER) (test ywki=493) 1.9 mg/dL 1.6-2.6 BASIC METABOLIC [id number] 06:21:00 Test Item Value Reference Range Comments SODIUM (BEAKER) (test 134 meq/L 136-145 almz=986) POTASSIUM (BEAKER) (test 3.8 meq/L 3.5-5.1 mzzf=303) CHLORIDE (BEAKER) (test 101 meq/L 98-107 vlum=684) CO2 (BEAKER) (test 23 meq/L 22-29 gvia=138) BLOOD UREA NITROGEN 36 mg/dL 7-21 (BEAKER) (test bvay=772) CREATININE (BEAKER) (test 1.49 mg/dL 0.57-1.25 kfpv=715) GLUCOSE RANDOM (BEAKER) 139 mg/dL 70-105 (test gjtv=541) CALCIUM (BEAKER) (test 8.0 mg/dL 8.4-10.2 kugz=672) EGFR (BEAKER) (test 46 mL/min/1.73 sq m ESTIMATED GFR IS NOT usgh=1179) ACCURATE CREATININE CLEARANCE IN PREDICTING GLOMERULAR FILTRATION RATE. ESTIMATED GFR IS NOT APPLICABLE FOR DIALYSIS PATIENTS. BLOOD [id number] 02:41:00 Test Item Value Reference Range Comments CULTURE (BEAKER) From Aerobic Bottle Only (test ayej=4979) Same organism has been isolated from cultures(s) of the same body site and collection date. Repeat identification and susceptibility testing performed only after consultation with the clinical microbiology laboratory.Refer to previous culture ofEnterobacter cloacae GRAM STAIN RESULT From aerobic bottle (BEAKER) (test only: gram negative gzuy=6712) rods ANAEROBIC [id number] 23:46:00 Test Item Value Reference Range Comments CULTURE (BEAKER) (test dwbg=8178) No anaerobes isolated POCT-GLUCOSE [id number] 20:54:00 Test Item Value Reference Range Comments POC-GLUCOSE METER (BEAKER) 241 mg/dL 70-110 TESTED AT [address] (test vlkz=0391) [facility] [address] RAD, CHEST, 1 VIEW, NON [id number] 19:11:00Reason for exam:-> leukocytosisShould this be performed [...] MDReport Verified Date/Time: 08/05/2017 19:11:15 Reading Location: [address] Reading Room POCT-GLUCOSE [id number] 18:02:00 Test Item Value Reference Range Comments POC-GLUCOSE METER (BEAKER) 169 mg/dL 70-110 TESTED AT [address] (test uctu=5618) [facility] [address] CT, BRAIN, WITHOUT [id number] 17:19:00Reason for exam:->evaluate for bleedingWhat is the [...] Location: [facility] Reading Room POCT-GLUCOSE [id number] 11:59: 00 Test Item Value Reference Range Comments POC-GLUCOSE METER (BEAKER) 220 mg/dL 70-110 TESTED AT [address] (test ygsd=8792) [place] [address] URINALYSIS W/ [id number] 10:10:00 Test Item Value Reference Range Comments COLOR (BEAKER) (test evxd=656) Yellow CLARITY (BEAKER) (test ywna=703) Clear SPECIFIC GRAVITY UA (BEAKER) (test dbgf=423) 1.015 1.001-1.035 PH UA (BEAKER) (test hozi=935) 5.5 5.0-8.0 PROTEIN UA (BEAKER) (test mgtm=920) 10 mg/dL Negative GLUCOSE UA (BEAKER) (test npvi=079) Negative Negative KETONES UA (BEAKER) (test svjv=270) Negative Negative BILIRUBIN UA (BEAKER) (test fvlu=068) Negative Negative BLOOD UA (BEAKER) (test blqy=517) Trace Negative NITRITE UA (BEAKER) (test uuex=204) Negative Negative LEUKOCYTE ESTERASE UA (BEAKER) (test pbwb=074) Large Negative UROBILINOGEN UA (BEAKER) (test qaoe=384) 3.0 mg/dL 0.2-1.0 RBC UA (BEAKER) (test clqd=657) 1 /HPF WBC UA (BEAKER) (test irea=625) 29 /HPF BACTERIA (BEAKER) (test ddnv=401) Rare MUCUS (BEAKER) (test ngsz=4950) Rare SQUAMOUS EPITHELIAL (BEAKER) (test ifnj=488) < /HPF SOURCE(BEAKER) (test smhe=7801) Urine, Frances POCT-GLUCOSE [id number] 08:49:00 Test Item Value Reference Range Comments POC-GLUCOSE METER (BEAKER) 203 mg/dL 70-110 TESTED AT [address] (test bqdt=4204) [place] [id number] CBC W/PLT COUNT & AUTO [id number] 08:10:00 Test Item Value Reference Range Comments WHITE BLOOD CELL COUNT (BEAKER) (test chzt=924) 17.3 K/ L 3.5-10.5 RED BLOOD CELL COUNT (BEAKER) (test pchy=804) 2.80 M/ L 4.63-6.08 HEMOGLOBIN (BEAKER) (test zoyd=395) 9.0 GM/DL 13.7-17.5 HEMATOCRIT (BEAKER) (test docm=100) 28.9 % 40.1-51.0 MEAN CORPUSCULAR VOLUME (BEAKER) (test qjxk=808) 103.2 fL 79.0-92.2 MEAN CORPUSCULAR HEMOGLOBIN (BEAKER) (test 32.1 pg 25.7-32.2 matp=168) MEAN CORPUSCULAR HEMOGLOBIN CONC (BEAKER) (test 31.1 GM/DL 32.3-36.5 hbhf=255) RED CELL DISTRIBUTION WIDTH (BEAKER) (test 15.8 % 11.6-14.4 ksln=834) PLATELET COUNT (BEAKER) (test ydro=342) 500 K/CU MM 150-450 MEAN PLATELET VOLUME (BEAKER) (test lkco=164) 10.7 fL 9.4-12.4 NUCLEATED RED BLOOD CELLS (BEAKER) (test 1 /100 WBC 0-0 zdai=937) NEUTROPHILS RELATIVE PERCENT (BEAKER) (test 80 % vwap=921) LYMPHOCYTES RELATIVE PERCENT (BEAKER) (test 8 % cdlc=887) MONOCYTES RELATIVE PERCENT (BEAKER) (test 7 % rmic=314) EOSINOPHILS RELATIVE PERCENT (BEAKER) (test 3 % wxfi=335) BASOPHILS RELATIVE PERCENT (BEAKER) (test 1 % hzfr=180) NEUTROPHILS ABSOLUTE COUNT (BEAKER) (test 13.74 K/ L 1.78-5.38 rnvi=383) LYMPHOCYTES ABSOLUTE COUNT (BEAKER) (test 1.43 K/ L 1.32-3.57 lwho=263) MONOCYTES ABSOLUTE COUNT (BEAKER) (test 1.14 K/ L 0.30-0.82 nmjz=495) EOSINOPHILS ABSOLUTE COUNT (BEAKER) (test 0.47 K/ L 0.04-0.54 hlbp=936) BASOPHILS ABSOLUTE COUNT (BEAKER) (test 0.09 K/ L 0.01-0.08 ombc=221) IMMATURE GRANULOCYTES-RELATIVE PERCENT (BEAKER) 2 % 0-1 (test pdai=3307) BASIC METABOLIC [id number] 05:29:00 Test Item Value Reference Range Comments SODIUM (BEAKER) (test 138 meq/L 136-145 kcqp=112) POTASSIUM (BEAKER) (test 4.0 meq/L 3.5-5.1 tizs=370) CHLORIDE (BEAKER) (test 106 meq/L 98-107 unkd=825) CO2 (BEAKER) (test 22 meq/L 22-29 joti=271) BLOOD UREA NITROGEN 46 mg/dL 7-21 (BEAKER) (test shbp=248) CREATININE (BEAKER) (test 1.77 mg/dL 0.57-1.25 ihpu=969) GLUCOSE RANDOM (BEAKER) 162 mg/dL 70-105 (test udrd=869) CALCIUM (BEAKER) (test 7.9 mg/dL 8.4-10.2 rifb=241) EGFR (BEAKER) (test 38 mL/min/1.73 sq m ESTIMATED GFR IS NOT lrdu=7536) ACCURATE CREATININE CLEARANCE IN PREDICTING GLOMERULAR FILTRATION RATE. ESTIMATED GFR IS NOT APPLICABLE FOR DIALYSIS PATIENTS. [id number] 05:28:00 Test Item Value Reference Range Comments MAGNESIUM (BEAKER) (test dfvm=414) 2.1 mg/dL 1.6-2.6 POCT-GLUCOSE [id number] 21:28:00 Test Item Value Reference Range Comments POC-GLUCOSE METER (BEAKER) 240 mg/dL 70-110 TESTED AT [address] (test eytb=4028) [place] [id number] POCT-GLUCOSE [id number] 18:29:00 Test Item Value Reference Range Comments POC-GLUCOSE METER (BEAKER) 255 mg/dL 70-110 TESTED AT [address] (test fgqa=9118) [place] [address] POCT-GLUCOSE [id number] 16:59:00 Test Item Value Reference Range Comments POC-GLUCOSE METER (BEAKER) 207 mg/dL 70-110 TESTED AT [address] (test ydtf=9840) [place] [address] SURGICALLY OBTAINED CULTURE + GRAM [id number] 16:19:00 Test Item Value Reference Range Comments CULTURE (BEAKER) (test pqug=5101) Amikacin (test code=1) Aztreonam (test code=32) Cefepime (test code=51) Cefoxitin (test code=68) Ceftazidime (test code=27) Ceftriaxone (test code=52) Gentamicin (test code=18) Levofloxacin (test code=22) Meropenem (test code=34) Nitrofurantoin (test code=23) Piperacillin + Tazobactam (test code=29) Tetracycline (test code=2) Tobramycin (test code=25) Trimethoprim + Sulfamethoxazole (test code=47) CULTURE (BEAKER) (test 1+ Enterobacter cloacae kjce=3963) complexAmpC Positive GRAM STAIN RESULT (BEAKER) 1+ WBCs (test kszn=5669) GRAM STAIN RESULT (BEAKER) No organisms seen (test nmrw=455744) POCT-GLUCOSE [id number] 08:47:00 Test Item Value Reference Range Comments POC-GLUCOSE METER (BEAKER) 167 mg/dL 70-110 TESTED AT [facility] [address] [place] [address] (test uppm=2177) [facility] [address] BASIC METABOLIC [id number] 08:10:00 Test Item Value Reference Range Comments SODIUM (BEAKER) (test 137 meq/L 136-145 yzgz=638) POTASSIUM (BEAKER) (test 3.7 meq/L 3.5-5.1 ruff=703) CHLORIDE (BEAKER) (test 106 meq/L 98-107 ldpu=804) CO2 (BEAKER) (test 21 meq/L 22-29 rnth=061) BLOOD UREA NITROGEN 55 mg/dL 7-21 (BEAKER) (test qvci=326) CREATININE (BEAKER) (test 2.06 mg/dL 0.57-1.25 xcfr=320) GLUCOSE RANDOM (BEAKER) 168 mg/dL 70-105 (test gmdo=127) CALCIUM (BEAKER) (test 7.5 mg/dL 8.4-10.2 uljy=409) EGFR (BEAKER) (test 32 mL/min/1.73 sq m ESTIMATED GFR IS NOT axfp=4399) ACCURATE CREATININE CLEARANCE IN PREDICTING GLOMERULAR FILTRATION RATE. ESTIMATED GFR IS NOT APPLICABLE FOR DIALYSIS PATIENTS. POCT-GLUCOSE [id number] 20:37:00 Test Item Value Reference Range Comments POC-GLUCOSE METER (BEAKER) 232 mg/dL 70-110 TESTED AT [address] (test euwz=0639) [place] [id number] POCT-GLUCOSE [id number] 17:10:00 Test Item Value Reference Range Comments POC-GLUCOSE METER (BEAKER) 256 mg/dL 70-110 TESTED AT [address] (test fxzu=6710) [place] [address] RAD, ABDOMEN/KUB, 1 VIEW [id number] 13:37:00Reason for exam:->abdominal pain,FINAL REPORT Comparison: None Discussion: Abdomen: Bowel gas pattern is nonobstructed. Evaluation for free intraperitoneal air is limited due to technique and positioning. Stentprojects over the lower abdomen and pelvis. No acute skeletal abnormality. Impression: 1. Nonspecific bowel gas pattern. Signed: Emerson Palaciosort Verified Date/Time: 08/03/2017 13:37:00 Reading Location: [address] Transitional Reading Room POCT-GLUCOSE [id number] 12:03:00 Test Item Value Reference Range Comments POC-GLUCOSE METER (BEAKER) 233 mg/dL 70-110 TESTED AT [address] (test mprl=2655) [place] [address] RAD, CHEST, 1 VIEW, NON [id number] 08:43:00Reason for exam:->chest tubeShould this be performed [...] Pyleort Verified Date/Time: 2017 08:43:25 Reading Location: [facility] C013V Neuro Reading Room POCT- GLUCOSE [id number] 07:32:00 Test Item Value Reference Range Comments POC-GLUCOSE METER (BEAKER) 182 mg/dL 70-110 TESTED AT [facility] [address] (test hjhc=9514) [facility] [address] BASIC METABOLIC [id number] 06:44:00 Test Item Value Reference Range Comments SODIUM (BEAKER) (test 135 meq/L 136-145 edir=871) POTASSIUM (BEAKER) (test 3.5 meq/L 3.5-5.1 iyia=860) CHLORIDE (BEAKER) (test 100 meq/L 98-107 afjg=048) CO2 (BEAKER) (test 23 meq/L 22-29 uasg=653) BLOOD UREA NITROGEN 56 mg/dL 7-21 (BEAKER) (test xfzv=454) CREATININE (BEAKER) (test 2.47 mg/dL 0.57-1.25 hczd=479) GLUCOSE RANDOM (BEAKER) 160 mg/dL 70-105 (test hkww=380) CALCIUM (BEAKER) (test 7.6 mg/dL 8.4-10.2 vlqy=784) EGFR (BEAKER) (test 26 mL/min/1.73 sq m ESTIMATED GFR IS NOT glcq=9152) ACCURATE CREATININE CLEARANCE IN PREDICTING GLOMERULAR FILTRATION RATE. ESTIMATED GFR IS NOT APPLICABLE FOR DIALYSIS PATIENTS. BLOOD [id number] 06:14:00 Test Item Value Reference Range Comments CULTURE (BEAKER) (test bsii=4711) Amikacin (test code=1) Aztreonam (test code=32) Cefepime (test code=51) Cefoxitin (test code=68) Ceftazidime (test code=27) Ceftriaxone (test code=52) Ertapenem (test code=38) Gentamicin (test code=18) Levofloxacin (test code=22) Meropenem (test code=34) Nitrofurantoin (test code=23) Piperacillin + Tazobactam (test code=29) Tetracycline (test code=2) Tobramycin (test code=25) Trimethoprim + Sulfamethoxazole (test code=47) CULTURE (BEAKER) (test From Aerobic And vctd=5602) Anaerobic Bottles Enterobacter cloacae GRAM STAIN RESULT (BEAKER) From aerobic and (test rzsj=8229) anaerobic bottles: gram negative rods ENTEROBACTER CLOACAE COMPLEX DETECTEDKPC (a carbapenamase gene) not detectedFirst line therapy: cefepime or meropenemOther organisms and resistance markers not contained in this PCR panel cannot be excluded and follow-up of traditional culture results is required. This sample was tested at the [facility] Clinical Microbiology Laboratory using the [employer] Blood Culture ID Panel. This test is FDAcleared for in vitro diagnostic use and has been verified and approved by the [facility] Clinical Microbiology laboratory for clinical use. Reference Range: Not DetectedSPIN/CONCENTRATION [id number] 05:57:00 Test Item Value Reference Range Comments CONCENTRATION CHARGED (BEAKER) (test dtau=8627) Done CBC W/PLT COUNT & AUTO [id number] 05:37:00 Test Item Value Reference Range Comments WHITE BLOOD CELL COUNT (BEAKER) (test mfms=287) 17.8 K/ L 3.5-10.5 RED BLOOD CELL COUNT (BEAKER) (test vwqx=857) 2.71 M/ L 4.63-6.08 HEMOGLOBIN (BEAKER) (test zfmy=992) 8.8 GM/DL 13.7-17.5 HEMATOCRIT (BEAKER) (test mjjj=251) 27.5 % 40.1-51.0 MEAN CORPUSCULAR VOLUME (BEAKER) (test cdeo=741) 101.5 fL 79.0-92.2 MEAN CORPUSCULAR HEMOGLOBIN (BEAKER) (test 32.5 pg 25.7-32.2 uixb=971) MEAN CORPUSCULAR HEMOGLOBIN CONC (BEAKER) (test 32.0 GM/DL 32.3-36.5 rflg=077) RED CELL DISTRIBUTION WIDTH (BEAKER) (test 15.5 % 11.6-14.4 zxdx=919) PLATELET COUNT (BEAKER) (test kgpi=186) 370 K/CU MM 150-450 MEAN PLATELET VOLUME (BEAKER) (test yfrt=026) 10.8 fL 9.4-12.4 NUCLEATED RED BLOOD CELLS (BEAKER) (test 0 /100 WBC 0-0 njfy=607) NEUTROPHILS RELATIVE PERCENT (BEAKER) (test 84 % sdnp=223) LYMPHOCYTES RELATIVE PERCENT (BEAKER) (test 7 % azii=662) MONOCYTES RELATIVE PERCENT (BEAKER) (test 6 % dnar=697) EOSINOPHILS RELATIVE PERCENT (BEAKER) (test 1 % vxbh=085) BASOPHILS RELATIVE PERCENT (BEAKER) (test 0 % afbl=458) NEUTROPHILS ABSOLUTE COUNT (BEAKER) (test 14.95 K/ L 1.78-5.38 qwxl=888) LYMPHOCYTES ABSOLUTE COUNT (BEAKER) (test 1.17 K/ L 1.32-3.57 ztky=259) MONOCYTES ABSOLUTE COUNT (BEAKER) (test 1.12 K/ L 0.30-0.82 qjgn=779) EOSINOPHILS ABSOLUTE COUNT (BEAKER) (test 0.22 K/ L 0.04-0.54 cqog=765) BASOPHILS ABSOLUTE COUNT (BEAKER) (test 0.04 K/ L 0.01-0.08 qpba=320) IMMATURE GRANULOCYTES-RELATIVE PERCENT (BEAKER) 1 % 0-1 (test ovny=2396) POCT-GLUCOSE [id number] 20:08:00 Test Item Value Reference Range Comments POC-GLUCOSE METER (BEAKER) 188 mg/dL 70-110 TESTED AT [address] (test gfbf=0963) [facility] [address] RAD, CHEST, 1 VIEW, NON [id number] 18:24:00Reason for exam:->chest tubeShould this be performed [...] MDReport Verified Date/Time: 08/02/2017 18:24:48 Reading Location: [address] Reading Room Electronically signed by: CJ SPENCER on 06:24 PMPOCT-GLUCOSE [id number] 17:07:00 Test Item Value Reference Range Comments POC-GLUCOSE METER (BEAKER) 183 mg/dL 70-110 TESTED AT [address] (test enpq=1856) [facility] [address] MISCELLANEOUS LAB [id number] 16:20:00 Test Item Value Reference Range Comments SCAN RESULT (test jyvp=[id number]) Result comments: ENTEROBACTER CLOACAE COMPLEX DETECTED KPC (a carbapenamase gene ) not detected Firstline therapy: cefepime or meropenem Other organisms and resistance markers not contained in this PCRpanel cannot be excluded and follow- up of traditional culture results is required. This sample wastested at the [facility] Clinical Microbiology Laboratory using the [employer] Blood Culture ID Panel. This test is FDA cleared for in vitro diagnostic use and has been verified and approved by the [facility] Clinical Microbiology laboratory for clinical use. Reference Range: Not DetectedPOCT-GLUCOSE [id number] 12:45:00 Test Item Value Reference Range Comments POC-GLUCOSE METER (BEAKER) 262 mg/dL 70-110 TESTED AT [facility] [address] (test ldwg=8080) [facility] [address] CBC W/PLT COUNT & AUTO [id number] 11:23:00 Test Item Value Reference Range Comments WHITE BLOOD CELL COUNT (BEAKER) (test rlqe=973) 11.9 K/ L 3.5-10.5 RED BLOOD CELL COUNT (BEAKER) (test brem=929) 2.77 M/ L 4.63-6.08 HEMOGLOBIN (BEAKER) (test oesz=362) 8.9 GM/DL 13.7-17.5 HEMATOCRIT (BEAKER) (test ewis=775) 28.1 % 40.1-51.0 MEAN CORPUSCULAR VOLUME (BEAKER) (test pmsl=052) 101.4 fL 79.0-92.2 MEAN CORPUSCULAR HEMOGLOBIN (BEAKER) (test 32.1 pg 25.7-32.2 zork=416) MEAN CORPUSCULAR HEMOGLOBIN CONC (BEAKER) (test 31.7 GM/DL 32.3-36.5 mzwm=539) RED CELL DISTRIBUTION WIDTH (BEAKER) (test 15.4 % 11.6-14.4 jmyy=613) PLATELET COUNT (BEAKER) (test hyjj=586) 343 K/CU MM 150-450 MEAN PLATELET VOLUME (BEAKER) (test vsmo=134) 11.3 fL 9.4-12.4 NUCLEATED RED BLOOD CELLS (BEAKER) (test 1 /100 WBC 0-0 sdnc=444) NEUTROPHILS RELATIVE PERCENT (BEAKER) (test 83 % crgb=529) LYMPHOCYTES RELATIVE PERCENT (BEAKER) (test 6 % desw=204) MONOCYTES RELATIVE PERCENT (BEAKER) (test 8 % mudm=058) EOSINOPHILS RELATIVE PERCENT (BEAKER) (test 1 % kkfr=829) BASOPHILS RELATIVE PERCENT (BEAKER) (test 0 % cdft=374) NEUTROPHILS ABSOLUTE COUNT (BEAKER) (test 9.84 K/ L 1.78-5.38 dtuh=608) LYMPHOCYTES ABSOLUTE COUNT (BEAKER) (test 0.73 K/ L 1.32-3.57 sjjt=052) MONOCYTES ABSOLUTE COUNT (BEAKER) (test 0.93 K/ L 0.30-0.82 xhxh=142) EOSINOPHILS ABSOLUTE COUNT (BEAKER) (test 0.13 K/ L 0.04-0.54 gsma=672) BASOPHILS ABSOLUTE COUNT (BEAKER) (test 0.04 K/ L 0.01-0.08 xkpp=286) IMMATURE GRANULOCYTES-RELATIVE PERCENT (BEAKER) 2 % 0-1 (test zhzy=5482) (MANUAL DIFFERENTIAL)2017-08-02 11:23:00 Test Item Value Reference Range Comments TOTAL COUNTED (BEAKER) (test kzzu=4604) WBC MORPHOLOGY (BEAKER) (test oxue=243) Normal LARGE PLT(BEAKER) (test yrow=1258) Present ACANTHOCYTES (BEAKER) (test dbhz=444) 1+ few ANISOCYTOSIS (BEAKER) (test tnaw=183) 1+ few HYPOCHROMIA (BEAKER) (test spph=084) 1+ few MACROCYTES (BEAKER) (test btcz=698) 1+ few POIKILOCYTES (BEAKER) (test rcfl=355) 1+ few POLYCHROMATOPHILLIC RBCS(BEAKER) (test hmgh=524) 2+ moderate POCT-GLUCOSE [id number] 07:15:00 Test Item Value Reference Range Comments POC-GLUCOSE METER (BEAKER) 218 mg/dL 70-110 TESTED AT [facility] [address] [facility] (test kdmv=2776) [facility] [address] BASIC METABOLIC [id number] 06:37:00 Test Item Value Reference Range Comments SODIUM (BEAKER) (test 137 meq/L 136-145 hcdx=107) POTASSIUM (BEAKER) (test 3.6 meq/L 3.5-5.1 hggr=665) CHLORIDE (BEAKER) (test 104 meq/L 98-107 rtrq=600) CO2 (BEAKER) (test 23 meq/L 22-29 euoh=942) BLOOD UREA NITROGEN 51 mg/dL 7-21 (BEAKER) (test hhdk=617) CREATININE (BEAKER) (test 2.37 mg/dL 0.57-1.25 dklb=223) GLUCOSE RANDOM (BEAKER) 242 mg/dL 70-105 (test kfel=321) CALCIUM (BEAKER) (test 7.4 mg/dL 8.4-10.2 wepm=001) EGFR (BEAKER) (test 27 mL/min/1.73 sq m ESTIMATED GFR IS NOT oqgb=3903) ACCURATE CREATININE CLEARANCE IN PREDICTING GLOMERULAR FILTRATION RATE. ESTIMATED GFR IS NOT APPLICABLE FOR DIALYSIS PATIENTS. POCT-GLUCOSE [id number] 21:51:00 Test Item Value Reference Range Comments POC-GLUCOSE METER (BEAKER) 237 mg/dL 70-110 TESTED AT [address] (test bija=4332) [place] [address] POCT-GLUCOSE [id number] 17:18:00 Test Item Value Reference Range Comments POC-GLUCOSE METER (BEAKER) 175 mg/dL 70-110 TESTED AT [address] (test gngi=1349) [place] [address] POCT-GLUCOSE [id number] 16:29:00 Test Item Value Reference Range Comments POC-GLUCOSE METER (BEAKER) 182 mg/dL 70-110 TESTED AT [address] (test uhpq=9718) [place] [address] RAD, CHEST, 1 VIEW, NON [id number] 16:22:00Reason for exam:->Post opShould this be performed [...] MDReport Verified Date/Time: 08/01/2017 16:22:20 Reading Location: [facility] [id number] Consult Reading Room [facility] W/PLT COUNT & AUTO [id number] 09:03:00 Test Item Value Reference Range Comments WHITE BLOOD CELL COUNT (BEAKER) (test negh=034) 12.3 K/ L 3.5-10.5 RED BLOOD CELL COUNT (BEAKER) (test unqw=550) 3.13 M/ L 4.63-6.08 HEMOGLOBIN (BEAKER) (test irnj=772) 9.9 GM/DL 13.7-17.5 HEMATOCRIT (BEAKER) (test fubt=612) 31.9 % 40.1-51.0 MEAN CORPUSCULAR VOLUME (BEAKER) (test ccbo=985) 101.9 fL 79.0-92.2 MEAN CORPUSCULAR HEMOGLOBIN (BEAKER) (test 31.6 pg 25.7-32.2 tqpb=692) MEAN CORPUSCULAR HEMOGLOBIN CONC (BEAKER) (test 31.0 GM/DL 32.3-36.5 fabo=859) RED CELL DISTRIBUTION WIDTH (BEAKER) (test 15.2 % 11.6-14.4 xcjp=708) PLATELET COUNT (BEAKER) (test fvhs=416) 317 K/CU MM 150-450 MEAN PLATELET VOLUME (BEAKER) (test wbzk=899) 10.8 fL 9.4-12.4 NUCLEATED RED BLOOD CELLS (BEAKER) (test 1 /100 WBC 0-0 bbce=657) NEUTROPHILS RELATIVE PERCENT (BEAKER) (test 81 % nebt=287) LYMPHOCYTES RELATIVE PERCENT (BEAKER) (test 8 % ooqk=971) MONOCYTES RELATIVE PERCENT (BEAKER) (test 7 % rvtk=309) EOSINOPHILS RELATIVE PERCENT (BEAKER) (test 1 % vgua=210) BASOPHILS RELATIVE PERCENT (BEAKER) (test 0 % gcar=219) NEUTROPHILS ABSOLUTE COUNT (BEAKER) (test 9.99 K/ L 1.78-5.38 piul=781) LYMPHOCYTES ABSOLUTE COUNT (BEAKER) (test 0.94 K/ L 1.32-3.57 exgr=479) MONOCYTES ABSOLUTE COUNT (BEAKER) (test 0.88 K/ L 0.30-0.82 lqgk=717) EOSINOPHILS ABSOLUTE COUNT (BEAKER) (test 0.17 K/ L 0.04-0.54 fymy=808) BASOPHILS ABSOLUTE COUNT (BEAKER) (test 0.05 K/ L 0.01-0.08 sppt=567) IMMATURE GRANULOCYTES-RELATIVE PERCENT (BEAKER) 2 % 0-1 (test ries=6525) (MANUAL DIFFERENTIAL)2017-08-01 09:03:00 Test Item Value Reference Range Comments TOTAL COUNTED (BEAKER) (test oqdt=4482) POCT-GLUCOSE [id number] 07:50:00 Test Item Value Reference Range Comments POC-GLUCOSE METER (BEAKER) 181 mg/dL 70-110 TESTED AT [facility] [address] [facility] [address] (test dyzt=2497) [facility] [address] CALCIUM, [id number] 06:10:00 Test Item Value Reference Range Comments CALCIUM IONIZED (BEAKER) (test nomo=704) 0.96 mmol/L 1.12-1.27 PH, BLOOD (BEAKER) (test mgnf=7508) 7.38 BASIC METABOLIC [id number] 04:43:00 Test Item Value Reference Range Comments SODIUM (BEAKER) (test 140 meq/L 136-145 xnli=139) POTASSIUM (BEAKER) (test 3.6 meq/L 3.5-5.1 pckh=645) CHLORIDE (BEAKER) (test 104 meq/L 98-107 eaxt=682) CO2 (BEAKER) (test 26 meq/L 22-29 kcqa=716) BLOOD UREA NITROGEN 42 mg/dL 7-21 (BEAKER) (test jrgw=087) CREATININE (BEAKER) (test 1.91 mg/dL 0.57-1.25 zdwk=250) GLUCOSE RANDOM (BEAKER) 172 mg/dL 70-105 (test fakg=675) CALCIUM (BEAKER) (test 8.0 mg/dL 8.4-10.2 bdbh=159) EGFR (BEAKER) (test 35 mL/min/1.73 sq m ESTIMATED GFR IS NOT rwgn=3666) ACCURATE CREATININE CLEARANCE IN PREDICTING GLOMERULAR FILTRATION RATE. ESTIMATED GFR IS NOT APPLICABLE FOR DIALYSIS PATIENTS. POCT-GLUCOSE [id number] 21:15:00 Test Item Value Reference Range Comments POC-GLUCOSE METER (BEAKER) 233 mg/dL 70-110 TESTED AT [facility] [address] [facility] [address] (test mydv=4721) [facility] [address] POCT-GLUCOSE [id number] 17:44:00 Test Item Value Reference Range Comments POC-GLUCOSE METER (BEAKER) 161 mg/dL 70-110 TESTED AT [facility] [address] [facility] (test ngsb=0182) [place] [id number] WOUND CULTURE + GRAM [id number] 13:50:00 Test Item Value Reference Range Comments CULTURE (BEAKER) (test ubcv=9279) Amikacin (test code=1) Susceptible 0-16 , Resistant [...] >40 code=47) CULTURE (BEAKER) (test 2+ Enterobacter coio=9145) cloacae GRAM STAIN RESULT (BEAKER) 2+ WBCs (test lfdr=6664) GRAM STAIN RESULT (BEAKER) <1+ gram positive (test hnse=725918) rods POCT-GLUCOSE [id number] 12:36:00 Test Item Value Reference Range Comments POC-GLUCOSE METER (BEAKER) 189 mg/dL 70-110 TESTED AT [facility] [address] [facility] (test hmdf=3914) [facility] [address] CBC W/PLT COUNT & AUTO [id number] 08:34:00 Test Item Value Reference Range Comments WHITE BLOOD CELL COUNT (BEAKER) (test wnfy=879) 12.2 K/ L 3.5-10.5 RED BLOOD CELL COUNT (BEAKER) (test lwow=595) 2.94 M/ L 4.63-6.08 HEMOGLOBIN (BEAKER) (test pgij=805) 9.5 GM/DL 13.7-17.5 HEMATOCRIT (BEAKER) (test ybmu=387) 30.4 % 40.1-51.0 MEAN CORPUSCULAR VOLUME (BEAKER) (test bigb=599) 103.4 fL 79.0-92.2 MEAN CORPUSCULAR HEMOGLOBIN (BEAKER) (test 32.3 pg 25.7-32.2 qrsd=285) MEAN CORPUSCULAR HEMOGLOBIN CONC (BEAKER) (test 31.3 GM/DL 32.3-36.5 ogxu=758) RED CELL DISTRIBUTION WIDTH (BEAKER) (test 15.4 % 11.6-14.4 fygb=758) PLATELET COUNT (BEAKER) (test vdon=092) 247 K/CU MM 150-450 MEAN PLATELET VOLUME (BEAKER) (test irlw=601) 10.5 fL 9.4-12.4 NUCLEATED RED BLOOD CELLS (BEAKER) (test 1 /100 WBC 0-0 dkza=407) NEUTROPHILS RELATIVE PERCENT (BEAKER) (test 75 % foxl=750) LYMPHOCYTES RELATIVE PERCENT (BEAKER) (test 10 % ucdn=356) MONOCYTES RELATIVE PERCENT (BEAKER) (test 9 % zrqe=874) EOSINOPHILS RELATIVE PERCENT (BEAKER) (test 3 % gwke=705) BASOPHILS RELATIVE PERCENT (BEAKER) (test 0 % ubgp=075) NEUTROPHILS ABSOLUTE COUNT (BEAKER) (test 9.16 K/ L 1.78-5.38 ibcf=248) LYMPHOCYTES ABSOLUTE COUNT (BEAKER) (test 1.18 K/ L 1.32-3.57 plwm=022) MONOCYTES ABSOLUTE COUNT (BEAKER) (test 1.08 K/ L 0.30-0.82 xhys=801) EOSINOPHILS ABSOLUTE COUNT (BEAKER) (test 0.35 K/ L 0.04-0.54 ctnr=489) BASOPHILS ABSOLUTE COUNT (BEAKER) (test 0.04 K/ L 0.01-0.08 kffe=511) IMMATURE GRANULOCYTES-RELATIVE PERCENT (BEAKER) 3 % 0-1 (test eces=2150) (MANUAL DIFFERENTIAL)2017-07-31 08:34:00 Test Item Value Reference Range Comments TOTAL COUNTED (BEAKER) (test hpks=4676) POCT-GLUCOSE [id number] 07:54:00 Test Item Value Reference Range Comments POC-GLUCOSE METER (BEAKER) 252 mg/dL 70-110 TESTED AT [facility] [address] (test aagt=4290) [facility] [address] BASIC METABOLIC [id number] 05:51:00 Test Item Value Reference Range Comments SODIUM (BEAKER) (test 141 meq/L 136-145 esoh=535) POTASSIUM (BEAKER) (test 3.8 meq/L 3.5-5.1 tyen=662) CHLORIDE (BEAKER) (test 106 meq/L 98-107 aivp=814) CO2 (BEAKER) (test 26 meq/L 22-29 iush=297) BLOOD UREA NITROGEN 46 mg/dL 7-21 (BEAKER) (test repm=909) CREATININE (BEAKER) (test 2.01 mg/dL 0.57-1.25 yndv=054) GLUCOSE RANDOM (BEAKER) 165 mg/dL 70-105 (test qogs=034) CALCIUM (BEAKER) (test 7.7 mg/dL 8.4-10.2 mntl=886) EGFR (BEAKER) (test 33 mL/min/1.73 sq m ESTIMATED GFR IS NOT dztg=5264) ACCURATE CREATININE CLEARANCE IN PREDICTING GLOMERULAR FILTRATION RATE. ESTIMATED GFR IS NOT APPLICABLE FOR DIALYSIS PATIENTS. LIPID [id number] 05:48:00 Test Item Value Reference Range Comments TRIGLYCERIDES (BEAKER) (test vaiy=564) 140 mg/dL CHOLESTEROL (BEAKER) (test ecxg=835) 106 mg/dL HDL CHOLESTEROL (BEAKER) (test zgzd=796) 19 mg/dL LDL CHOLESTEROL CALCULATED (BEAKER) (test 59 mg/dL gpfs=539) Triglyceride Reference Range: Low Risk <150 Borderline 150- 199 High Risk 200-499 Very High Risk >=500Cholesterol Reference Range: Low Risk <200 Borderline 200-239 High Risk > 240HDL Cholesterol Reference Range: Low Risk >=60 High Risk <40LDL Cholesterol Reference Range: Optimal <100 Near Optimal 100-129 Borderline 130-159 High 160-189 Very High >=190POCT-GLUCOSE [id number] 21:13:00 Test Item Value Reference Range Comments POC-GLUCOSE METER (BEAKER) 193 mg/dL 70-110 TESTED AT [address] (test aqmp=5235) [place] [address] POCT-GLUCOSE [id number] 17:46:00 Test Item Value Reference Range Comments POC-GLUCOSE METER (BEAKER) 214 mg/dL 70-110 TESTED AT [address] (test wgss=6098) [place] [address] [id number] 16:18:00 Test Item Value Reference Range Comments POTASSIUM (BEAKER) (test bert=731) 3.6 meq/L 3.5-5.1 POCT-GLUCOSE [id number] 13:06:00 Test Item Value Reference Range Comments POC-GLUCOSE METER (BEAKER) 230 mg/dL 70-110 TESTED AT [address] (test mmed=5549) [place] [address] BASIC METABOLIC [id number] 08:41:00 Test Item Value Reference Range Comments SODIUM (BEAKER) (test 145 meq/L 136-145 utfa=038) POTASSIUM (BEAKER) (test 3.9 meq/L 3.5-5.1 Specimen slightly skgk=419) hemolyzed CHLORIDE (BEAKER) (test 107 meq/L 98-107 rmlq=089) CO2 (BEAKER) (test 25 meq/L 22-29 csrh=907) BLOOD UREA NITROGEN 52 mg/dL 7-21 (BEAKER) (test jlxh=849) CREATININE (BEAKER) (test 2.09 mg/dL 0.57-1.25 Specimen slightly zutt=273) hemolyzed GLUCOSE RANDOM (BEAKER) 170 mg/dL 70-105 (test mscm=187) CALCIUM (BEAKER) (test 8.2 mg/dL 8.4-10.2 fmwg=373) EGFR (BEAKER) (test 31 mL/min/1.73 sq m ESTIMATED GFR IS NOT fwha=0187) ACCURATE CREATININE CLEARANCE IN PREDICTING GLOMERULAR FILTRATION RATE. ESTIMATED GFR IS NOT APPLICABLE FOR DIALYSIS PATIENTS. RAD, CHEST, 1 VIEW, NON [id number] 08:23:00Reason for exam:->pulmonary congestionShould this be performed [...] MDReport Verified Date/Time: 07/30/2017 08:23:04 Reading Location: [facility] Radiology Reading Room POCT- GLUCOSE [id number] 07:52:00 Test Item Value Reference Range Comments POC-GLUCOSE METER (BEAKER) 211 mg/dL 70-110 TESTED AT [facility] [address] [place] [address] (test evnr=8808) [facility] [address] CBC W/PLT COUNT & AUTO [id number] 04:32:00 Test Item Value Reference Range Comments WHITE BLOOD CELL COUNT (BEAKER) (test fbis=009) 12.3 K/ L 3.5-10.5 RED BLOOD CELL COUNT (BEAKER) (test rjtc=422) 2.96 M/ L 4.63-6.08 HEMOGLOBIN (BEAKER) (test kivo=585) 9.4 GM/DL 13.7-17.5 HEMATOCRIT (BEAKER) (test bjkc=678) 30.1 % 40.1-51.0 MEAN CORPUSCULAR VOLUME (BEAKER) (test ieqb=418) 101.7 fL 79.0-92.2 MEAN CORPUSCULAR HEMOGLOBIN (BEAKER) (test 31.8 pg 25.7-32.2 plkm=798) MEAN CORPUSCULAR HEMOGLOBIN CONC (BEAKER) (test 31.2 GM/DL 32.3-36.5 lovx=877) RED CELL DISTRIBUTION WIDTH (BEAKER) (test 15.2 % 11.6-14.4 vmil=842) PLATELET COUNT (BEAKER) (test liqj=557) 219 K/CU MM 150-450 MEAN PLATELET VOLUME (BEAKER) (test pzhu=913) 11.3 fL 9.4-12.4 NUCLEATED RED BLOOD CELLS (BEAKER) (test 2 /100 WBC 0-0 kuix=155) NEUTROPHILS RELATIVE PERCENT (BEAKER) (test 76 % dgmt=261) LYMPHOCYTES RELATIVE PERCENT (BEAKER) (test 8 % lpbc=100) MONOCYTES RELATIVE PERCENT (BEAKER) (test 10 % fsnc=518) EOSINOPHILS RELATIVE PERCENT (BEAKER) (test 3 % xxja=553) BASOPHILS RELATIVE PERCENT (BEAKER) (test 0 % hhmi=349) NEUTROPHILS ABSOLUTE COUNT (BEAKER) (test 9.35 K/ L 1.78-5.38 ohdn=829) LYMPHOCYTES ABSOLUTE COUNT (BEAKER) (test 0.97 K/ L 1.32-3.57 hwwl=208) MONOCYTES ABSOLUTE COUNT (BEAKER) (test 1.25 K/ L 0.30-0.82 rlbe=769) EOSINOPHILS ABSOLUTE COUNT (BEAKER) (test 0.41 K/ L 0.04-0.54 mmnj=741) BASOPHILS ABSOLUTE COUNT (BEAKER) (test 0.04 K/ L 0.01-0.08 tqoi=775) IMMATURE GRANULOCYTES-RELATIVE PERCENT (BEAKER) 2 % 0-1 (test lslq=9102) POCT-GLUCOSE [id number] 18:50:00 Test Item Value Reference Range Comments POC-GLUCOSE METER (BEAKER) 139 mg/dL 70-110 TESTED AT [facility] [address] (test qnfi=0522) [facility] [address] [id number] 13:28:00 Test Item Value Reference Range Comments POTASSIUM (BEAKER) (test nslv=176) 3.7 meq/L 3.5-5.1 CBC W/PLT COUNT & AUTO [id number] 13:25:00 Test Item Value Reference Range Comments WHITE BLOOD CELL COUNT (BEAKER) (test qsez=555) 11.2 K/ L 3.5-10.5 RED BLOOD CELL COUNT (BEAKER) (test kgnr=845) 2.67 M/ L 4.63-6.08 HEMOGLOBIN (BEAKER) (test udgz=029) 8.8 GM/DL 13.7-17.5 HEMATOCRIT (BEAKER) (test podb=046) 27.3 % 40.1-51.0 MEAN CORPUSCULAR VOLUME (BEAKER) (test lmhg=646) 102.2 fL 79.0-92.2 MEAN CORPUSCULAR HEMOGLOBIN (BEAKER) (test 33.0 pg 25.7-32.2 lbyl=411) MEAN CORPUSCULAR HEMOGLOBIN CONC (BEAKER) (test 32.2 GM/DL 32.3-36.5 mvxo=520) RED CELL DISTRIBUTION WIDTH (BEAKER) (test 15.3 % 11.6-14.4 poyh=175) PLATELET COUNT (BEAKER) (test ghik=366) 202 K/CU MM 150-450 MEAN PLATELET VOLUME (BEAKER) (test nzcz=845) 11.4 fL 9.4-12.4 NUCLEATED RED BLOOD CELLS (BEAKER) (test 3 /100 WBC 0-0 efin=308) NEUTROPHILS RELATIVE PERCENT (BEAKER) (test 79 % hbgk=853) LYMPHOCYTES RELATIVE PERCENT (BEAKER) (test 8 % neze=821) MONOCYTES RELATIVE PERCENT (BEAKER) (test 9 % ogsw=338) EOSINOPHILS RELATIVE PERCENT (BEAKER) (test 2 % plud=743) BASOPHILS RELATIVE PERCENT (BEAKER) (test 0 % grsh=332) NEUTROPHILS ABSOLUTE COUNT (BEAKER) (test 8.88 K/ L 1.78-5.38 ueem=919) LYMPHOCYTES ABSOLUTE COUNT (BEAKER) (test 0.89 K/ L 1.32-3.57 ybfo=094) MONOCYTES ABSOLUTE COUNT (BEAKER) (test 1.00 K/ L 0.30-0.82 zooe=006) EOSINOPHILS ABSOLUTE COUNT (BEAKER) (test 0.18 K/ L 0.04-0.54 ehcr=762) BASOPHILS ABSOLUTE COUNT (BEAKER) (test 0.03 K/ L 0.01-0.08 adth=338) IMMATURE GRANULOCYTES-RELATIVE PERCENT (BEAKER) 2 % 0-1 (test bofz=5053) (MANUAL DIFFERENTIAL)2017-07-29 13:25:00 Test Item Value Reference Range Comments TOTAL COUNTED (BEAKER) (test vgpi=6559) POCT-GLUCOSE [id number] 12:44:00 Test Item Value Reference Range Comments POC-GLUCOSE METER (BEAKER) 251 mg/dL 70-110 TESTED AT [place] [id number] [facility] (test uofw=9792) [facility] [address] RAD, CHEST, 1 VIEW, NON [id number] 09:58:00Reason for exam:->pulmonary congestionShould this be performed [...] MDReport Verified Date/Time: 07/29/2017 09:58:36 Reading Location: [facility] Radiology Reading Room POCT-GLUCOSE [id number] 08:36:00 Test Item Value Reference Range Comments POC-GLUCOSE METER (BEAKER) 198 mg/dL 70-110 TESTED AT [address] (test ihvb=3568) [facility] [address] CALCIUM, [id number] 06:14:00 Test Item Value Reference Range Comments CALCIUM IONIZED (BEAKER) (test jshx=473) 0.98 mmol/L 1.12-1.27 PH, BLOOD (BEAKER) (test frrx=4367) 7.43 BASIC METABOLIC [id number] 05:40:00 Test Item Value Reference Range Comments SODIUM (BEAKER) (test 146 meq/L 136-145 jbkn=323) POTASSIUM (BEAKER) (test 3.3 meq/L 3.5-5.1 uaod=594) CHLORIDE (BEAKER) (test 108 meq/L 98-107 ttds=996) CO2 (BEAKER) (test 26 meq/L 22-29 dblh=673) BLOOD UREA NITROGEN 63 mg/dL 7-21 (BEAKER) (test qjce=036) CREATININE (BEAKER) (test 2.25 mg/dL 0.57-1.25 zpmz=400) GLUCOSE RANDOM (BEAKER) 165 mg/dL 70-105 (test qzlp=991) CALCIUM (BEAKER) (test 8.2 mg/dL 8.4-10.2 xyum=838) EGFR (BEAKER) (test 29 mL/min/1.73 sq m ESTIMATED GFR IS NOT wjbf=0996) ACCURATE CREATININE CLEARANCE IN PREDICTING GLOMERULAR FILTRATION RATE. ESTIMATED GFR IS NOT APPLICABLE FOR DIALYSIS PATIENTS. [id number] 05:36:00 Test Item Value Reference Range Comments POTASSIUM (BEAKER) (test vraw=863) 3.3 meq/L 3.5-5.1 [id number] 05:36:00 Test Item Value Reference Range Comments MAGNESIUM (BEAKER) (test xkte=041) 2.1 mg/dL 1.6-2.6 [id number] 01:31:00 Test Item Value Reference Range Comments POTASSIUM (BEAKER) (test lkxj=003) 3.5 meq/L 3.5-5.1 [id number] 01:31:00 Test Item Value Reference Range Comments MAGNESIUM (BEAKER) (test guel=645) 2.0 mg/dL 1.6-2.6 CALCIUM, [id number] 01:14:00 Test Item Value Reference Range Comments CALCIUM IONIZED (BEAKER) (test thmy=643) 0.96 mmol/L 1.12-1.27 PH, BLOOD (BEAKER) (test nien=0476) 7.46 POCT-GLUCOSE [id number] 21:48:00 Test Item Value Reference Range Comments POC-GLUCOSE METER (BEAKER) 200 mg/dL 70-110 TESTED AT [address] (test eseb=7671) [facility] [address] BASIC METABOLIC [id number] 20:08:00 Test Item Value Reference Range Comments SODIUM (BEAKER) (test 147 meq/L 136-145 zzte=318) POTASSIUM (BEAKER) (test 3.8 meq/L 3.5-5.1 zxlz=964) CHLORIDE (BEAKER) (test 109 meq/L 98-107 sovj=220) CO2 (BEAKER) (test 26 meq/L 22-29 ksct=206) BLOOD UREA NITROGEN 66 mg/dL 7-21 (BEAKER) (test qbgf=570) CREATININE (BEAKER) (test 2.32 mg/dL 0.57-1.25 aulk=760) GLUCOSE RANDOM (BEAKER) 140 mg/dL 70-105 (test inmp=115) CALCIUM (BEAKER) (test 8.8 mg/dL 8.4-10.2 oizg=014) EGFR (BEAKER) (test 28 mL/min/1.73 sq m ESTIMATED GFR IS NOT jwwg=1566) ACCURATE CREATININE CLEARANCE IN PREDICTING GLOMERULAR FILTRATION RATE. ESTIMATED GFR IS NOT APPLICABLE FOR DIALYSIS PATIENTS. [id number] 19:29:00 Test Item Value Reference Range Comments POTASSIUM (BEAKER) (test xofn=592) 3.8 meq/L 3.5-5.1 [id number] 19:29:00 Test Item Value Reference Range Comments MAGNESIUM (BEAKER) (test gmzg=210) 2.2 mg/dL 1.6-2.6 CALCIUM, [id number] 19:16:00 Test Item Value Reference Range Comments CALCIUM IONIZED (BEAKER) (test mjhm=615) 1.04 mmol/L 1.12-1.27 PH, BLOOD (BEAKER) (test qvpp=0471) 7.48 POCT-GLUCOSE [id number] 18:17:00 Test Item Value Reference Range Comments POC-GLUCOSE METER (BEAKER) 145 mg/dL 70-110 TESTED AT [address] (test gbnk=0998) [place] [id number] POCT-GLUCOSE [id number] 18:17:00 Test Item Value Reference Range Comments POC-GLUCOSE METER (BEAKER) 99 mg/dL 70-110 TESTED AT [address] (test cwnl=3371) [place] [address] POCT-GLUCOSE [id number] 18:17:00 Test Item Value Reference Range Comments POC-GLUCOSE METER (BEAKER) 132 mg/dL 70-110 TESTED AT [address] (test xvqo=1117) [place] [address] POCT-GLUCOSE [id number] 18:17:00 Test Item Value Reference Range Comments POC-GLUCOSE METER (BEAKER) 132 mg/dL 70-110 TESTED AT [address] (test ysxv=5481) [place] [address] CT, BRAIN, WITHOUT [id number] 18:16:00FINAL REPORT CT head without contrast. Comparisons: [...] Taty Osborne Verified Date/Time: 07/28/2017 18:16:35 POCT-GLUCOSE [id number] 16:20: 00 Test Item Value Reference Range Comments POC-GLUCOSE METER (BEAKER) 183 mg/dL 70-110 TESTED AT [facility] [address] [place] [address] (test gsla=2345) [facility] [address] [id number] 15:02:00 Test Item Value Reference Range Comments POTASSIUM (BEAKER) (test spim=056) 3.7 meq/L 3.5-5.1 [id number] 15:02:00 Test Item Value Reference Range Comments MAGNESIUM (BEAKER) (test depf=829) 2.2 mg/dL 1.6-2.6 CALCIUM, [id number] 14:46:00 Test Item Value Reference Range Comments CALCIUM IONIZED (BEAKER) (test ucyd=048) 1.09 mmol/L 1.12-1.27 PH, BLOOD (BEAKER) (test ndqb=1424) 7.45 BASIC METABOLIC [id number] 11:18:00 Test Item Value Reference Range Comments SODIUM (BEAKER) (test 150 meq/L 136-145 rtfc=892) POTASSIUM (BEAKER) (test 3.7 meq/L 3.5-5.1 wldl=559) CHLORIDE (BEAKER) (test 112 meq/L 98-107 biwf=429) CO2 (BEAKER) (test 27 meq/L 22-29 tsds=419) BLOOD UREA NITROGEN 64 mg/dL 7-21 (BEAKER) (test mbib=195) CREATININE (BEAKER) (test 2.30 mg/dL 0.57-1.25 eatr=092) GLUCOSE RANDOM (BEAKER) 135 mg/dL 70-105 (test lbyl=619) CALCIUM (BEAKER) (test 8.8 mg/dL 8.4-10.2 rmvu=894) EGFR (BEAKER) (test 28 mL/min/1.73 sq m ESTIMATED GFR IS NOT jrwd=5760) ACCURATE CREATININE CLEARANCE IN PREDICTING GLOMERULAR FILTRATION RATE. ESTIMATED GFR IS NOT APPLICABLE FOR DIALYSIS PATIENTS. RAD, CHEST, 1 VIEW, NON [id number] 08:31:00Reason for exam:->pulmonary congestionShould this be performed [...] MDReport Verified Date/Time: 07/28/2017 08:31:10 Reading Location: [facility] Radiology Reading Room BASIC METABOLIC [id number] 06:16 :00 Test Item Value Reference Range Comments SODIUM (BEAKER) (test 149 meq/L 136-145 boob=624) POTASSIUM (BEAKER) (test 4.0 meq/L 3.5-5.1 Specimen slightly qjrz=234) hemolyzed CHLORIDE (BEAKER) (test 112 meq/L 98-107 fzfy=804) CO2 (BEAKER) (test 25 meq/L 22-29 kqla=365) BLOOD UREA NITROGEN 61 mg/dL 7-21 (BEAKER) (test hyit=968) CREATININE (BEAKER) (test 2.28 mg/dL 0.57-1.25 Specimen slightly qvhh=154) hemolyzed GLUCOSE RANDOM (BEAKER) 127 mg/dL 70-105 (test qnct=509) CALCIUM (BEAKER) (test 8.6 mg/dL 8.4-10.2 cula=632) EGFR (BEAKER) (test 28 mL/min/1.73 sq m ESTIMATED GFR IS NOT mgaf=6601) ACCURATE CREATININE CLEARANCE IN PREDICTING GLOMERULAR FILTRATION RATE. ESTIMATED GFR IS NOT APPLICABLE FOR DIALYSIS PATIENTS. [id number] 06:07:00 Test Item Value Reference Range Comments MAGNESIUM (BEAKER) (test 2.3 mg/dL 1.6-2.6 Specimen slightly hemolyzed rbkc=097) [id number] 06:07:00 Test Item Value Reference Range Comments PHOSPHORUS (BEAKER) (test 3.5 mg/dL 2.3-4.7 Specimen slightly hemolyzed pned=739) [id number] 06:07:00 Test Item Value Reference Range Comments POTASSIUM (BEAKER) (test 4.0 meq/L 3.5-5.1 Specimen slightly hemolyzed opho=867) CBC W/PLT COUNT & AUTO [id number] 05:51:00 Test Item Value Reference Range Comments WHITE BLOOD CELL COUNT (BEAKER) (test ikro=297) 9.2 K/ L 3.5-10.5 RED BLOOD CELL COUNT (BEAKER) (test lwkv=209) 2.77 M/ L 4.63-6.08 HEMOGLOBIN (BEAKER) (test kdpz=609) 9.0 GM/DL 13.7-17.5 HEMATOCRIT (BEAKER) (test xptn=116) 28.0 % 40.1-51.0 MEAN CORPUSCULAR VOLUME (BEAKER) (test xrlc=107) 101.1 fL 79.0-92.2 MEAN CORPUSCULAR HEMOGLOBIN (BEAKER) (test 32.5 pg 25.7-32.2 dnim=743) MEAN CORPUSCULAR HEMOGLOBIN CONC (BEAKER) (test 32.1 GM/DL 32.3-36.5 owhm=850) RED CELL DISTRIBUTION WIDTH (BEAKER) (test 14.9 % 11.6-14.4 omdu=366) PLATELET COUNT (BEAKER) (test gucj=870) 157 K/CU MM 150-450 MEAN PLATELET VOLUME (BEAKER) (test kocf=856) 12.4 fL 9.4-12.4 NUCLEATED RED BLOOD CELLS (BEAKER) (test 1 /100 WBC 0-0 faaj=340) IMMATURE GRANULOCYTES-RELATIVE PERCENT (BEAKER) 1 % 0-1 (test wmvy=3088) CALCIUM, [id number] 05:13:00 Test Item Value Reference Range Comments CALCIUM IONIZED (BEAKER) (test xdik=633) 1.09 mmol/L 1.12-1.27 PH, BLOOD (BEAKER) (test ximb=8152) 7.45 [id number] 00:51:00 Test Item Value Reference Range Comments POTASSIUM (BEAKER) (test ogze=785) 4.1 meq/L 3.5-5.1 [id number] 00:51:00 Test Item Value Reference Range Comments MAGNESIUM (BEAKER) (test mwer=781) 2.2 mg/dL 1.6-2.6 CALCIUM, [id number] 00:46:00 Test Item Value Reference Range Comments CALCIUM IONIZED (BEAKER) (test eoeb=235) 1.11 mmol/L 1.12-1.27 PH, BLOOD (BEAKER) (test qzgq=9678) 7.47 POCT-GLUCOSE [id number] 22:39:00 Test Item Value Reference Range Comments POC-GLUCOSE METER (BEAKER) 167 mg/dL 70-110 TESTED AT [facility] [address] [facility] (test yrsc=0991) [facility] [address] BASIC METABOLIC [id number] 21:20:00 Test Item Value Reference Range Comments SODIUM (BEAKER) (test 148 meq/L 136-145 epqm=648) POTASSIUM (BEAKER) (test 3.9 meq/L 3.5-5.1 kmor=719) CHLORIDE (BEAKER) (test 111 meq/L 98-107 bhyz=129) CO2 (BEAKER) (test 28 meq/L 22-29 beex=283) BLOOD UREA NITROGEN 53 mg/dL 7-21 (BEAKER) (test axlu=948) CREATININE (BEAKER) (test 2.26 mg/dL 0.57-1.25 wuxa=479) GLUCOSE RANDOM (BEAKER) 138 mg/dL 70-105 (test eext=993) CALCIUM (BEAKER) (test 9.2 mg/dL 8.4-10.2 fxhr=421) EGFR (BEAKER) (test 29 mL/min/1.73 sq m ESTIMATED GFR IS NOT acgd=7825) ACCURATE CREATININE CLEARANCE IN PREDICTING GLOMERULAR FILTRATION RATE. ESTIMATED GFR IS NOT APPLICABLE FOR DIALYSIS PATIENTS. [id number] 18:54:00 Test Item Value Reference Range Comments POTASSIUM (BEAKER) (test fhra=414) 4.0 meq/L 3.5-5.1 [id number] 18:54:00 Test Item Value Reference Range Comments MAGNESIUM (BEAKER) (test srwe=832) 2.3 mg/dL 1.6-2.6 CALCIUM, [id number] 18:10:00 Test Item Value Reference Range Comments CALCIUM IONIZED (BEAKER) (test utzv=417) 1.13 mmol/L 1.12-1.27 PH, BLOOD (BEAKER) (test zbxk=3753) 7.46 BASIC METABOLIC [id number] 09:04:00 Test Item Value Reference Range Comments SODIUM (BEAKER) (test 146 meq/L 136-145 nrzd=741) POTASSIUM (BEAKER) (test 4.0 meq/L 3.5-5.1 gfak=492) CHLORIDE (BEAKER) (test 111 meq/L 98-107 ijgr=018) CO2 (BEAKER) (test 26 meq/L 22-29 bcbs=203) BLOOD UREA NITROGEN 46 mg/dL 7-21 (BEAKER) (test sabl=575) CREATININE (BEAKER) (test 2.35 mg/dL 0.57-1.25 gooo=023) GLUCOSE RANDOM (BEAKER) 152 mg/dL 70-105 (test yiph=973) CALCIUM (BEAKER) (test 9.0 mg/dL 8.4-10.2 nnsa=549) EGFR (BEAKER) (test 27 mL/min/1.73 sq m ESTIMATED GFR IS NOT tzrd=7954) ACCURATE CREATININE CLEARANCE IN PREDICTING GLOMERULAR FILTRATION RATE. ESTIMATED GFR IS NOT APPLICABLE FOR DIALYSIS PATIENTS. RAD, CHEST, 1 VIEW, NON [id number] 05:14:00Reason for exam:->chest tubesFINAL REPORT Chest one [...] MDReport Verified Date/Time: 2017 05:14:18 Reading Location: [address] Transitional Reading Room Electronically signed by: TAYLOR ALVARADO MD on07/27/2017 05:14 AMCALCIUM , [id number] 04:52:00 Test Item Value Reference Range Comments CALCIUM IONIZED (BEAKER) (test aklr=270) 1.13 mmol/L 1.12-1.27 PH, BLOOD (BEAKER) (test ryeo=4683) 7.40 BASIC METABOLIC [id number] 04:49:00 Test Item Value Reference Range Comments SODIUM (BEAKER) (test 146 meq/L 136-145 gqlr=519) POTASSIUM (BEAKER) (test 4.1 meq/L 3.5-5.1 mxci=772) CHLORIDE (BEAKER) (test 111 meq/L 98-107 agqm=467) CO2 (BEAKER) (test 24 meq/L 22-29 lhhp=884) BLOOD UREA NITROGEN 42 mg/dL 7-21 (BEAKER) (test epxc=243) CREATININE (BEAKER) (test 2.41 mg/dL 0.57-1.25 vqqu=167) GLUCOSE RANDOM (BEAKER) 149 mg/dL 70-105 (test mpql=278) CALCIUM (BEAKER) (test 9.5 mg/dL 8.4-10.2 nshm=325) EGFR (BEAKER) (test 26 mL/min/1.73 sq m ESTIMATED GFR IS NOT ydjr=8228) ACCURATE CREATININE CLEARANCE IN PREDICTING GLOMERULAR FILTRATION RATE. ESTIMATED GFR IS NOT APPLICABLE FOR DIALYSIS PATIENTS. OXYGEN SATURATION, [id number] 04:36:00 Test Item Value Reference Range Comments O2 SATURATION (MEASURED) (BEAKER) (test qwie=6804) 59.2 % [id number] 04:35:00 Test Item Value Reference Range Comments POTASSIUM (BEAKER) (test ieza=099) 4.1 meq/L 3.5-5.1 [id number] 04:35:00 Test Item Value Reference Range Comments MAGNESIUM (BEAKER) (test mcoy=332) 2.0 mg/dL 1.6-2.6 [id number] 04:35:00 Test Item Value Reference Range Comments PHOSPHORUS (BEAKER) (test bumq=759) 4.5 mg/dL 2.3-4.7 LACTIC ACID, ARTERIAL, WHOLE [id number] 04:16:00 Test Item Value Reference Range Comments LACTATE BLOOD ARTERIAL (2) (BEAKER) (test 1.3 mmol/L 0.5-2.2 isaf=1879) Effective 09/27/2015: Units/Reference Range ChangeNew: 0.5-2.2 mmol/L Previous: 5 -20 mg/dLCBC W/PLT COUNT & AUTO [id number] 04:07:00 Test Item Value Reference Range Comments WHITE BLOOD CELL COUNT (BEAKER) (test xplr=632) 11.9 K/ L 3.5-10.5 RED BLOOD CELL COUNT (BEAKER) (test eaop=246) 2.67 M/ L 4.63-6.08 HEMOGLOBIN (BEAKER) (test mtpi=065) 9.0 GM/DL 13.7-17.5 HEMATOCRIT (BEAKER) (test zajo=030) 26.9 % 40.1-51.0 MEAN CORPUSCULAR VOLUME (BEAKER) (test blij=620) 100.7 fL 79.0-92.2 MEAN CORPUSCULAR HEMOGLOBIN (BEAKER) (test 33.7 pg 25.7-32.2 fqay=684) MEAN CORPUSCULAR HEMOGLOBIN CONC (BEAKER) (test 33.5 GM/DL 32.3-36.5 oflv=980) RED CELL DISTRIBUTION WIDTH (BEAKER) (test 14.9 % 11.6-14.4 bcxf=690) PLATELET COUNT (BEAKER) (test ioxf=122) 137 K/CU MM 150-450 MEAN PLATELET VOLUME (BEAKER) (test wbjd=745) 11.3 fL 9.4-12.4 NUCLEATED RED BLOOD CELLS (BEAKER) (test 0 /100 WBC 0-0 kcyt=512) NEUTROPHILS RELATIVE PERCENT (BEAKER) (test 84 % anpm=805) LYMPHOCYTES RELATIVE PERCENT (BEAKER) (test 7 % qjut=443) MONOCYTES RELATIVE PERCENT (BEAKER) (test 6 % fyru=788) EOSINOPHILS RELATIVE PERCENT (BEAKER) (test 2 % pwib=075) BASOPHILS RELATIVE PERCENT (BEAKER) (test 0 % kexa=996) NEUTROPHILS ABSOLUTE COUNT (BEAKER) (test 10.05 K/ L 1.78-5.38 xyin=989) LYMPHOCYTES ABSOLUTE COUNT (BEAKER) (test 0.78 K/ L 1.32-3.57 plne=496) MONOCYTES ABSOLUTE COUNT (BEAKER) (test 0.70 K/ L 0.30-0.82 hihm=201) EOSINOPHILS ABSOLUTE COUNT (BEAKER) (test 0.26 K/ L 0.04-0.54 ohbu=501) BASOPHILS ABSOLUTE COUNT (BEAKER) (test 0.02 K/ L 0.01-0.08 pisj=010) IMMATURE GRANULOCYTES-RELATIVE PERCENT (BEAKER) 1 % 0-1 (test xhqy=4165) BASIC METABOLIC [id number] 20:45:00 Test Item Value Reference Range Comments SODIUM (BEAKER) (test 146 meq/L 136-145 vbqr=453) POTASSIUM (BEAKER) (test 4.1 meq/L 3.5-5.1 otpt=745) CHLORIDE (BEAKER) (test 111 meq/L 98-107 jbax=841) CO2 (BEAKER) (test 24 meq/L 22-29 ufdl=302) BLOOD UREA NITROGEN 38 mg/dL 7-21 (BEAKER) (test endv=122) CREATININE (BEAKER) (test 2.48 mg/dL 0.57-1.25 ahqr=998) GLUCOSE RANDOM (BEAKER) 109 mg/dL 70-105 (test dcnm=124) CALCIUM (BEAKER) (test 9.4 mg/dL 8.4-10.2 upev=961) EGFR (BEAKER) (test 26 mL/min/1.73 sq m ESTIMATED GFR IS NOT cjkb=2022) ACCURATE CREATININE CLEARANCE IN PREDICTING GLOMERULAR FILTRATION RATE. ESTIMATED GFR IS NOT APPLICABLE FOR DIALYSIS PATIENTS. BLOOD GAS, [id number] 20:35:00 Test Item Value Reference Range Comments PH ARTERIAL (BEAKER) (test efgf=704) 7.48 7.35-7.45 PCO2 ARTERIAL (BEAKER) (test bjrd=286) 34 mmHg 35-45 PO2 ARTERIAL (BEAKER) (test bpdp=113) 114 mmHg 80-90 O2 SATURATION ARTERIAL (BEAKER) (test uqit=465) 98.4 % 96.0-97.0 HCO3 ARTERIAL (BEAKER) (test jsae=576) 25 mmol/L 21-29 BASE EXCESS ARTERIAL (BEAKER) (test oyrj=012) 1.6 mmol/L -2.0-3.0 PATIENT TEMPERATURE (BEAKER) (test gjxg=3722) 37.3 C FIO2 (BEAKER) (test gcgc=5347) 52.0 % BLOOD GAS, [id number] 19:21:00 Test Item Value Reference Range Comments PH ARTERIAL (BEAKER) (test vomk=873) 7.47 7.35-7.45 PCO2 ARTERIAL (BEAKER) (test hsce=622) 36 mmHg 35-45 PO2 ARTERIAL (BEAKER) (test djzl=430) 141 mmHg 80-90 O2 SATURATION ARTERIAL (BEAKER) (test oagm=049) 98.9 % 96.0-97.0 HCO3 ARTERIAL (BEAKER) (test fkrj=246) 26 mmol/L 21-29 BASE EXCESS ARTERIAL (BEAKER) (test atiq=012) 2.3 mmol/L -2.0-3.0 PATIENT TEMPERATURE (BEAKER) (test skbe=7951) 37.1 C FIO2 (BEAKER) (test tqar=9551) 100.0 % BASIC METABOLIC [id number] 17:33:00 Test Item Value Reference Range Comments SODIUM (BEAKER) (test 146 meq/L 136-145 selq=567) POTASSIUM (BEAKER) (test 4.2 meq/L 3.5-5.1 yjnw=479) CHLORIDE (BEAKER) (test 111 meq/L 98-107 mxuh=592) CO2 (BEAKER) (test 27 meq/L 22-29 iukg=279) BLOOD UREA NITROGEN 34 mg/dL 7-21 (BEAKER) (test wvts=356) CREATININE (BEAKER) (test 2.54 mg/dL 0.57-1.25 janh=584) GLUCOSE RANDOM (BEAKER) 112 mg/dL 70-105 (test lvvm=047) CALCIUM (BEAKER) (test 9.6 mg/dL 8.4-10.2 ysqx=765) EGFR (BEAKER) (test 25 mL/min/1.73 sq m ESTIMATED GFR IS NOT penz=5407) ACCURATE CREATININE CLEARANCE IN PREDICTING GLOMERULAR FILTRATION RATE. ESTIMATED GFR IS NOT APPLICABLE FOR DIALYSIS PATIENTS. [id number] 17:29:00 Test Item Value Reference Range Comments POTASSIUM (BEAKER) (test avsx=451) 4.2 meq/L 3.5-5.1 [id number] 17:29:00 Test Item Value Reference Range Comments MAGNESIUM (BEAKER) (test jkqj=811) 2.1 mg/dL 1.6-2.6 CBC W/PLT COUNT & AUTO [id number] 17:14:00 Test Item Value Reference Range Comments WHITE BLOOD CELL COUNT (BEAKER) (test wamg=255) 13.2 K/ L 3.5-10.5 RED BLOOD CELL COUNT (BEAKER) (test aebt=807) 2.95 M/ L 4.63-6.08 HEMOGLOBIN (BEAKER) (test inxa=942) 9.6 GM/DL 13.7-17.5 HEMATOCRIT (BEAKER) (test mqnm=394) 29.2 % 40.1-51.0 MEAN CORPUSCULAR VOLUME (BEAKER) (test ijne=444) 99.0 fL 79.0-92.2 MEAN CORPUSCULAR HEMOGLOBIN (BEAKER) (test 32.5 pg 25.7-32.2 xkuj=162) MEAN CORPUSCULAR HEMOGLOBIN CONC (BEAKER) (test 32.9 GM/DL 32.3-36.5 kecc=717) RED CELL DISTRIBUTION WIDTH (BEAKER) (test 14.9 % 11.6-14.4 hght=425) PLATELET COUNT (BEAKER) (test kybp=907) 139 K/CU MM 150-450 MEAN PLATELET VOLUME (BEAKER) (test snqd=129) 12.0 fL 9.4-12.4 NUCLEATED RED BLOOD CELLS (BEAKER) (test 0 /100 WBC 0-0 jtci=094) NEUTROPHILS RELATIVE PERCENT (BEAKER) (test 83 % tboo=518) LYMPHOCYTES RELATIVE PERCENT (BEAKER) (test 7 % trsl=209) MONOCYTES RELATIVE PERCENT (BEAKER) (test 7 % lspf=744) EOSINOPHILS RELATIVE PERCENT (BEAKER) (test 2 % euqa=258) BASOPHILS RELATIVE PERCENT (BEAKER) (test 0 % yxdc=409) NEUTROPHILS ABSOLUTE COUNT (BEAKER) (test 10.94 K/ L 1.78-5.38 yxnm=908) LYMPHOCYTES ABSOLUTE COUNT (BEAKER) (test 0.91 K/ L 1.32-3.57 gsue=582) MONOCYTES ABSOLUTE COUNT (BEAKER) (test 0.98 K/ L 0.30-0.82 tblg=014) EOSINOPHILS ABSOLUTE COUNT (BEAKER) (test 0.22 K/ L 0.04-0.54 acex=545) BASOPHILS ABSOLUTE COUNT (BEAKER) (test 0.04 K/ L 0.01-0.08 sucn=363) IMMATURE GRANULOCYTES-RELATIVE PERCENT (BEAKER) 1 % 0-1 (test rrwe=8517) CALCIUM, [id number] 16:53:00 Test Item Value Reference Range Comments CALCIUM IONIZED (BEAKER) (test cqzu=963) 1.16 mmol/L 1.12-1.27 PH, BLOOD (BEAKER) (test zeyd=3697) 7.47 BLOOD GAS, [id number] 14:56:00 Test Item Value Reference Range Comments PH ARTERIAL (BEAKER) (test eatw=488) 7.48 7.35-7.45 PCO2 ARTERIAL (BEAKER) (test oddt=556) 36 mmHg 35-45 PO2 ARTERIAL (BEAKER) (test tumj=054) 150 mmHg 80-90 O2 SATURATION ARTERIAL (BEAKER) (test idoo=693) 99.1 % 96.0-97.0 HCO3 ARTERIAL (BEAKER) (test ugbr=841) 27 mmol/L 21-29 BASE EXCESS ARTERIAL (BEAKER) (test qndu=658) 2.9 mmol/L -2.0-3.0 PATIENT TEMPERATURE (BEAKER) (test aagv=3822) 36.7 C FIO2 (BEAKER) (test elnz=5867) 40.0 % [id number] 13:15:00 Test Item Value Reference Range Comments POTASSIUM (BEAKER) (test tfve=113) 4.2 meq/L 3.5-5.1 [id number] 13:15:00 Test Item Value Reference Range Comments MAGNESIUM (BEAKER) (test fmny=208) 2.2 mg/dL 1.6-2.6 CALCIUM, [id number] 12:44:00 Test Item Value Reference Range Comments CALCIUM IONIZED (BEAKER) (test ylek=168) 1.18 mmol/L 1.12-1.27 PH, BLOOD (BEAKER) (test iffz=3781) 7.47 BASIC METABOLIC [id number] 10:34:00 Test Item Value Reference Range Comments SODIUM (BEAKER) (test 145 meq/L 136-145 jeel=330) POTASSIUM (BEAKER) (test 4.0 meq/L 3.5-5.1 craq=966) CHLORIDE (BEAKER) (test 112 meq/L 98-107 iwbk=709) CO2 (BEAKER) (test 23 meq/L 22-29 nysa=929) BLOOD UREA NITROGEN 31 mg/dL 7-21 (BEAKER) (test yaxs=235) CREATININE (BEAKER) (test 2.49 mg/dL 0.57-1.25 wzsl=500) GLUCOSE RANDOM (BEAKER) 127 mg/dL 70-105 (test nkwe=332) CALCIUM (BEAKER) (test 10.1 mg/dL 8.4-10.2 hzco=801) EGFR (BEAKER) (test 25 mL/min/1.73 sq m ESTIMATED GFR IS NOT atjh=0671) ACCURATE CREATININE CLEARANCE IN PREDICTING GLOMERULAR FILTRATION RATE. ESTIMATED GFR IS NOT APPLICABLE FOR DIALYSIS PATIENTS. BLOOD GAS, [id number] 09:31:00 Test Item Value Reference Range Comments PH ARTERIAL (BEAKER) (test zgxk=579) 7.48 7.35-7.45 PCO2 ARTERIAL (BEAKER) (test gaoe=851) 33 mmHg 35-45 PO2 ARTERIAL (BEAKER) (test usjw=343) 112 mmHg 80-90 O2 SATURATION ARTERIAL (BEAKER) (test oufh=452) 98.4 % 96.0-97.0 HCO3 ARTERIAL (BEAKER) (test hcwe=321) 24 mmol/L 21-29 BASE EXCESS ARTERIAL (BEAKER) (test idsp=436) 1.0 mmol/L -2.0-3.0 PATIENT TEMPERATURE (BEAKER) (test npzu=1595) 36.7 C FIO2 (BEAKER) (test qwyd=1163) 40.0 % RAD, CHEST, 1 VIEW, NON [id number] 08:44:00Reason for exam:->chest tubesFINAL REPORT CHEST ONE [...] DelatorreMDReport Verified Date/Time: 07/26/2017 08:44:33 Reading Location: [facility] [id number] Ortho Consult Reading Room Electronically signed by: KERI DELATORRE MD on 2017 08:44 AMPOCT-GLUCOSE [id number] 07:25:00 Test Item Value Reference Range Comments POC-GLUCOSE METER (BEAKER) 120 mg/dL 70-110 TESTED AT [address] (test xryg=8656) [facility] [address] BASIC METABOLIC [id number] 05:41:00 Test Item Value Reference Range Comments SODIUM (BEAKER) (test 145 meq/L 136-145 kxwp=275) POTASSIUM (BEAKER) (test 4.1 meq/L 3.5-5.1 nzmg=052) CHLORIDE (BEAKER) (test 112 meq/L 98-107 cgmc=221) CO2 (BEAKER) (test 21 meq/L 22-29 qtqi=330) BLOOD UREA NITROGEN 29 mg/dL 7-21 (BEAKER) (test keck=410) CREATININE (BEAKER) (test 2.50 mg/dL 0.57-1.25 eabn=703) GLUCOSE RANDOM (BEAKER) 126 mg/dL 70-105 (test cnig=673) CALCIUM (BEAKER) (test 8.3 mg/dL 8.4-10.2 xjmf=822) EGFR (BEAKER) (test 25 mL/min/1.73 sq m ESTIMATED GFR IS NOT cqcp=8288) ACCURATE CREATININE CLEARANCE IN PREDICTING GLOMERULAR FILTRATION RATE. ESTIMATED GFR IS NOT APPLICABLE FOR DIALYSIS PATIENTS. OXYGEN SATURATION, [id number] 05:34:00 Test Item Value Reference Range Comments O2 SATURATION (MEASURED) (BEAKER) (test wxxg=3964) 59.2 % [id number] 05:33:00 Test Item Value Reference Range Comments PHOSPHORUS (BEAKER) (test qnnp=458) 4.7 mg/dL 2.3-4.7 [id number] 05:33:00 Test Item Value Reference Range Comments MAGNESIUM (BEAKER) (test whvb=149) 2.2 mg/dL 1.6-2.6 CALCIUM, [id number] 05:31:00 Test Item Value Reference Range Comments CALCIUM IONIZED (BEAKER) (test zmhk=404) 0.98 mmol/L 1.12-1.27 PH, BLOOD (BEAKER) (test dlis=5344) 7.39 CBC W/PLT COUNT & AUTO [id number] 05:00:00 Test Item Value Reference Range Comments WHITE BLOOD CELL COUNT (BEAKER) (test gaij=872) 12.8 K/ L 3.5-10.5 RED BLOOD CELL COUNT (BEAKER) (test nsbn=953) 2.87 M/ L 4.63-6.08 HEMOGLOBIN (BEAKER) (test yltj=743) 9.4 GM/DL 13.7-17.5 HEMATOCRIT (BEAKER) (test rmha=163) 28.5 % 40.1-51.0 MEAN CORPUSCULAR VOLUME (BEAKER) (test kwyq=751) 99.3 fL 79.0-92.2 MEAN CORPUSCULAR HEMOGLOBIN (BEAKER) (test 32.8 pg 25.7-32.2 lqtm=311) MEAN CORPUSCULAR HEMOGLOBIN CONC (BEAKER) (test 33.0 GM/DL 32.3-36.5 sipp=800) RED CELL DISTRIBUTION WIDTH (BEAKER) (test 14.9 % 11.6-14.4 jtim=792) PLATELET COUNT (BEAKER) (test tqlo=246) 134 K/CU MM 150-450 MEAN PLATELET VOLUME (BEAKER) (test waor=696) 12.5 fL 9.4-12.4 NUCLEATED RED BLOOD CELLS (BEAKER) (test 0 /100 WBC 0-0 nwxm=422) NEUTROPHILS RELATIVE PERCENT (BEAKER) (test 86 % fwza=117) LYMPHOCYTES RELATIVE PERCENT (BEAKER) (test 5 % hvje=340) MONOCYTES RELATIVE PERCENT (BEAKER) (test 7 % ptqh=900) EOSINOPHILS RELATIVE PERCENT (BEAKER) (test 2 % uyaa=480) BASOPHILS RELATIVE PERCENT (BEAKER) (test 0 % tixc=603) NEUTROPHILS ABSOLUTE COUNT (BEAKER) (test 10.99 K/ L 1.78-5.38 yzuq=061) LYMPHOCYTES ABSOLUTE COUNT (BEAKER) (test 0.60 K/ L 1.32-3.57 vobc=617) MONOCYTES ABSOLUTE COUNT (BEAKER) (test 0.84 K/ L 0.30-0.82 ssgc=850) EOSINOPHILS ABSOLUTE COUNT (BEAKER) (test 0.21 K/ L 0.04-0.54 ebio=229) BASOPHILS ABSOLUTE COUNT (BEAKER) (test 0.03 K/ L 0.01-0.08 tqyw=969) IMMATURE GRANULOCYTES-RELATIVE PERCENT (BEAKER) 1 % 0-1 (test lipw=8425) LACTIC ACID, ARTERIAL, WHOLE [id number] 04:58:00 Test Item Value Reference Range Comments LACTATE BLOOD ARTERIAL (2) (BEAKER) (test 1.2 mmol/L 0.5-2.2 echm=6991) Effective 09/27/2015: Units/Reference Range ChangeNew: 0.5-2.2 mmol/L Previous: 5 -20 mg/dLPOCT-GLUCOSE [id number] 04:19:00 Test Item Value Reference Range Comments POC-GLUCOSE METER (BEAKER) 136 mg/dL 70-110 TESTED AT [address] (test dsws=5070) [facility] [address] POCT-GLUCOSE [id number] 00:39:00 Test Item Value Reference Range Comments POC-GLUCOSE METER (BEAKER) 142 mg/dL 70-110 TESTED AT [address] (test xnps=5510) [facility] [address] POCT-GLUCOSE [id number] 23:06:00 Test Item Value Reference Range Comments POC-GLUCOSE METER (BEAKER) 128 mg/dL 70-110 TESTED AT [address] (test sgfe=7014) [place] [address] BASIC METABOLIC [id number] 21:24:00 Test Item Value Reference Range Comments SODIUM (BEAKER) (test 143 meq/L 136-145 grgc=369) POTASSIUM (BEAKER) (test 4.3 meq/L 3.5-5.1 wzje=438) CHLORIDE (BEAKER) (test 111 meq/L 98-107 htxl=996) CO2 (BEAKER) (test 24 meq/L 22-29 bixu=748) BLOOD UREA NITROGEN 27 mg/dL 7-21 (BEAKER) (test jetv=205) CREATININE (BEAKER) (test 2.57 mg/dL 0.57-1.25 gqrm=193) GLUCOSE RANDOM (BEAKER) 125 mg/dL 70-105 (test zpna=861) CALCIUM (BEAKER) (test 8.3 mg/dL 8.4-10.2 ycjq=195) EGFR (BEAKER) (test 25 mL/min/1.73 sq m ESTIMATED GFR IS NOT cseh=0732) ACCURATE CREATININE CLEARANCE IN PREDICTING GLOMERULAR FILTRATION RATE. ESTIMATED GFR IS NOT APPLICABLE FOR DIALYSIS PATIENTS. POCT-GLUCOSE [id number] 20:14:00 Test Item Value Reference Range Comments POC-GLUCOSE METER (BEAKER) 126 mg/dL 70-110 TESTED AT [address] (test xhzl=2121) [place] [address] BASIC METABOLIC [id number] 18:38:00 Test Item Value Reference Range Comments SODIUM (BEAKER) (test 143 meq/L 136-145 mtip=972) POTASSIUM (BEAKER) (test 4.3 meq/L 3.5-5.1 lwwk=550) CHLORIDE (BEAKER) (test 112 meq/L 98-107 dbvf=301) CO2 (BEAKER) (test 23 meq/L 22-29 qfni=993) BLOOD UREA NITROGEN 27 mg/dL 7-21 (BEAKER) (test odfh=616) CREATININE (BEAKER) (test 2.58 mg/dL 0.57-1.25 cdaq=850) GLUCOSE RANDOM (BEAKER) 128 mg/dL 70-105 (test ogtn=741) CALCIUM (BEAKER) (test 8.2 mg/dL 8.4-10.2 hezd=083) EGFR (BEAKER) (test 24 mL/min/1.73 sq m ESTIMATED GFR IS NOT mqlw=4677) ACCURATE CREATININE CLEARANCE IN PREDICTING GLOMERULAR FILTRATION RATE. ESTIMATED GFR IS NOT APPLICABLE FOR DIALYSIS PATIENTS. [id number] 18:37:00 Test Item Value Reference Range Comments POTASSIUM (BEAKER) (test vyat=680) 4.3 meq/L 3.5-5.1 [id number] 18:37:00 Test Item Value Reference Range Comments MAGNESIUM (BEAKER) (test xlak=986) 2.3 mg/dL 1.6-2.6 POCT-GLUCOSE [id number] 18:21:00 Test Item Value Reference Range Comments POC-GLUCOSE METER (BEAKER) 135 mg/dL 70-110 TESTED AT [address] (test qwlt=1430) [place] [id number] POCT-GLUCOSE [id number] 18:21:00 Test Item Value Reference Range Comments POC-GLUCOSE METER (BEAKER) 140 mg/dL 70-110 TESTED AT [address] (test bixs=6777) [place] [id number] POCT-GLUCOSE [id number] 18:21:00 Test Item Value Reference Range Comments POC-GLUCOSE METER (BEAKER) 132 mg/dL 70-110 TESTED AT [address] (test pymj=9051) [place] [id number] CALCIUM, [id number] 18:06:00 Test Item Value Reference Range Comments CALCIUM IONIZED (BEAKER) (test hhbm=710) 1.06 mmol/L 1.12-1.27 PH, BLOOD (BEAKER) (test trdf=3481) 7.44 BLOOD GAS, [id number] 18:06:00 Test Item Value Reference Range Comments PH ARTERIAL (BEAKER) (test xhzd=427) 7.44 7.35-7.45 PCO2 ARTERIAL (BEAKER) (test mtzl=907) 32 mmHg 35-45 PO2 ARTERIAL (BEAKER) (test hbrl=997) 99 mmHg 80-90 O2 SATURATION ARTERIAL (BEAKER) (test hbpy=928) 97.7 % 96.0-97.0 HCO3 ARTERIAL (BEAKER) (test ypvp=420) 21 mmol/L 21-29 BASE EXCESS ARTERIAL (BEAKER) (test yrib=217) -2.3 mmol/L -2.0-3.0 PATIENT TEMPERATURE (BEAKER) (test ibbs=6673) 37.0 C FIO2 (BEAKER) (test hjav=5158) 40.0 % LACTIC ACID, ARTERIAL, WHOLE [id number] 13:20:00 Test Item Value Reference Range Comments LACTATE BLOOD ARTERIAL (2) (BEAKER) (test 1.4 mmol/L 0.5-2.2 lrki=8136) Effective 09/27/2015: Units/Reference Range ChangeNew: 0.5-2.2 mmol/L Previous: 5 -20 mg/dLHEMOGLOBIN AND [id number] 13:01:00 Test Item Value Reference Range Comments HEMOGLOBIN (BEAKER) (test aadt=659) 9.7 GM/DL 13.7-17.5 HEMATOCRIT (BEAKER) (test bsly=442) 29.2 % 40.1-51.0 POCT-GLUCOSE [id number] 12:24:00 Test Item Value Reference Range Comments POC-GLUCOSE METER (BEAKER) 113 mg/dL 70-110 TESTED AT [address] (test lhoo=0353) [facility] [address] POCT-GLUCOSE [id number] 12:24:00 Test Item Value Reference Range Comments POC-GLUCOSE METER (BEAKER) 147 mg/dL 70-110 TESTED AT [address] (test utul=0753) [facility] [address] POCT-GLUCOSE [id number] 12:24:00 Test Item Value Reference Range Comments POC-GLUCOSE METER (BEAKER) 160 mg/dL 70-110 TESTED AT [address] (test ucim=6837) [facility] [address] POCT-GLUCOSE [id number] 12:24:00 Test Item Value Reference Range Comments POC-GLUCOSE METER (BEAKER) 145 mg/dL 70-110 TESTED AT [address] (test cubf=2147) [facility] [address] POCT-GLUCOSE [id number] 12:24:00 Test Item Value Reference Range Comments POC-GLUCOSE METER (BEAKER) 145 mg/dL 70-110 TESTED AT [address] (test ppcy=0901) [facility] [address] POCT-GLUCOSE [id number] 12:24:00 Test Item Value Reference Range Comments POC-GLUCOSE METER (BEAKER) 159 mg/dL 70-110 TESTED AT [facility] [address] [facility] (test kzht=9518) [facility] [address] POCT-GLUCOSE [id number] 12:24:00 Test Item Value Reference Range Comments POC-GLUCOSE METER (BEAKER) 170 mg/dL 70-110 TESTED AT [facility] [address] [facility] (test tkdt=1869) [facility] [address] [id number] 10:59:00 Test Item Value Reference Range Comments PHOSPHORUS (BEAKER) (test ekur=642) 3.1 mg/dL 2.3-4.7 [id number] 10:59:00 Test Item Value Reference Range Comments MAGNESIUM (BEAKER) (test gdeh=987) 2.3 mg/dL 1.6-2.6 BASIC METABOLIC [id number] 10:59:00 Test Item Value Reference Range Comments SODIUM (BEAKER) (test 143 meq/L 136-145 yokm=816) POTASSIUM (BEAKER) (test 4.6 meq/L 3.5-5.1 dpmt=892) CHLORIDE (BEAKER) (test 112 meq/L 98-107 uxqq=194) CO2 (BEAKER) (test 20 meq/L 22-29 ribv=820) BLOOD UREA NITROGEN 23 mg/dL 7-21 (BEAKER) (test afgk=020) CREATININE (BEAKER) (test 2.18 mg/dL 0.57-1.25 dakp=927) GLUCOSE RANDOM (BEAKER) 147 mg/dL 70-105 (test dzim=970) CALCIUM (BEAKER) (test 8.1 mg/dL 8.4-10.2 orbm=039) EGFR (BEAKER) (test 30 mL/min/1.73 sq m ESTIMATED GFR IS NOT uzkf=3202) ACCURATE CREATININE CLEARANCE IN PREDICTING GLOMERULAR FILTRATION RATE. ESTIMATED GFR IS NOT APPLICABLE FOR DIALYSIS PATIENTS. CBC W/PLT COUNT & AUTO [id number] 10:26:00 Test Item Value Reference Range Comments WHITE BLOOD CELL COUNT (BEAKER) (test eynj=733) 14.9 K/ L 3.5-10.5 RED BLOOD CELL COUNT (BEAKER) (test evfy=931) 3.03 M/ L 4.63-6.08 HEMOGLOBIN (BEAKER) (test ovxa=489) 10.0 GM/DL 13.7-17.5 HEMATOCRIT (BEAKER) (test mvqx=623) 30.9 % 40.1-51.0 MEAN CORPUSCULAR VOLUME (BEAKER) (test gqye=710) 102.0 fL 79.0-92.2 MEAN CORPUSCULAR HEMOGLOBIN (BEAKER) (test 33.0 pg 25.7-32.2 rzsm=882) MEAN CORPUSCULAR HEMOGLOBIN CONC (BEAKER) (test 32.4 GM/DL 32.3-36.5 xcqw=006) RED CELL DISTRIBUTION WIDTH (BEAKER) (test 14.8 % 11.6-14.4 jxtv=889) PLATELET COUNT (BEAKER) (test ktdx=984) 155 K/CU MM 150-450 MEAN PLATELET VOLUME (BEAKER) (test ftcf=724) 12.6 fL 9.4-12.4 NUCLEATED RED BLOOD CELLS (BEAKER) (test 0 /100 WBC 0-0 aany=657) NEUTROPHILS RELATIVE PERCENT (BEAKER) (test 84 % khpa=870) LYMPHOCYTES RELATIVE PERCENT (BEAKER) (test 4 % hmzw=519) MONOCYTES RELATIVE PERCENT (BEAKER) (test 11 % vggk=861) EOSINOPHILS RELATIVE PERCENT (BEAKER) (test 1 % rulv=633) BASOPHILS RELATIVE PERCENT (BEAKER) (test 0 % avps=101) NEUTROPHILS ABSOLUTE COUNT (BEAKER) (test 12.43 K/ L 1.78-5.38 ohdt=521) LYMPHOCYTES ABSOLUTE COUNT (BEAKER) (test 0.56 K/ L 1.32-3.57 jowh=633) MONOCYTES ABSOLUTE COUNT (BEAKER) (test 1.62 K/ L 0.30-0.82 okeg=913) EOSINOPHILS ABSOLUTE COUNT (BEAKER) (test 0.14 K/ L 0.04-0.54 fase=233) BASOPHILS ABSOLUTE COUNT (BEAKER) (test 0.04 K/ L 0.01-0.08 xjxm=994) IMMATURE GRANULOCYTES-RELATIVE PERCENT (BEAKER) 1 % 0-1 (test kzhk=1063) BLOOD GAS, [id number] 09:05:00 Test Item Value Reference Range Comments PH ARTERIAL (BEAKER) (test yblk=338) 7.40 7.35-7.45 PCO2 ARTERIAL (BEAKER) (test dehy=899) 35 mmHg 35-45 PO2 ARTERIAL (BEAKER) (test eqrr=324) 212 mmHg 80-90 O2 SATURATION ARTERIAL (BEAKER) (test zuso=718) 99.4 % 96.0-97.0 HCO3 ARTERIAL (BEAKER) (test hkcw=966) 22 mmol/L 21-29 BASE EXCESS ARTERIAL (BEAKER) (test otwu=960) -2.7 mmol/L -2.0-3.0 PATIENT TEMPERATURE (BEAKER) (test xdvu=9667) 37.0 C FIO2 (BEAKER) (test fulx=7322) 100.0 % POCT-GLUCOSE [id number] 07:07:00 Test Item Value Reference Range Comments POC-GLUCOSE METER (BEAKER) 160 mg/dL 70-110 TESTED AT [address] (test gmfx=2713) [place] [address] POCT-GLUCOSE [id number] 07:07:00 Test Item Value Reference Range Comments POC-GLUCOSE METER (BEAKER) 200 mg/dL 70-110 TESTED AT [address] (test deoi=5680) [place] [id number] POCT-GLUCOSE [id number] 07:07:00 Test Item Value Reference Range Comments POC-GLUCOSE METER (BEAKER) 213 mg/dL 70-110 TESTED AT [address] (test kgoh=4319) [place] [id number] BLOOD GAS, [id number] 01:53:00 Test Item Value Reference Range Comments PH ARTERIAL (BEAKER) (test uvnb=552) 7.45 7.35-7.45 PCO2 ARTERIAL (BEAKER) (test iydn=703) 28 mmHg 35-45 PO2 ARTERIAL (BEAKER) (test gddf=332) 81 mmHg 80-90 O2 SATURATION ARTERIAL (BEAKER) (test zbjy=656) 96.8 % 96.0-97.0 HCO3 ARTERIAL (BEAKER) (test oxgk=829) 19 mmol/L 21-29 BASE EXCESS ARTERIAL (BEAKER) (test scro=379) -4.1 mmol/L -2.0-3.0 PATIENT TEMPERATURE (BEAKER) (test bqqj=7045) 36.2 C FIO2 (BEAKER) (test anmv=0984) 36.0 % RAD, CHEST, 1 VIEW, NON [id number] 01:46:00while patient is intubated or has chest [...] MDReport Verified Date/Time: 07/25/2017 01:46:51 Reading Location: [address] Reading Room Electronicallysigned by: DAYSI TORRES M.D. on 07/25/2017 01:46 AMPOCT-GLUCOSE [id number] 00:23:00 Test Item Value Reference Range Comments POC-GLUCOSE METER (BEAKER) 229 mg/dL 70-110 TESTED AT [address] (test zeiu=7697) [place] [id number] POCT-GLUCOSE [id number] 00:23:00 Test Item Value Reference Range Comments POC-GLUCOSE METER (BEAKER) 220 mg/dL 70-110 TESTED AT [address] (test bugd=0725) [place] [id number] POCT-GLUCOSE [id number] 22:34:00 Test Item Value Reference Range Comments POC-GLUCOSE METER (BEAKER) 247 mg/dL 70-110 TESTED AT [address] (test xfpk=7647) [place] [address] POCT-GLUCOSE [id number] 22:34:00 Test Item Value Reference Range Comments POC-GLUCOSE METER (BEAKER) 254 mg/dL 70-110 TESTED AT [address] (test yjyj=0943) [place] [address] BLOOD GAS, [id number] 22:08:00 Test Item Value Reference Range Comments PH ARTERIAL (BEAKER) (test kvtj=278) 7.35 7.35-7.45 PCO2 ARTERIAL (BEAKER) (test awqf=303) 36 mmHg 35-45 PO2 ARTERIAL (BEAKER) (test wawi=691) 68 mmHg 80-90 O2 SATURATION ARTERIAL (BEAKER) (test wtso=712) 92.8 % 96.0-97.0 HCO3 ARTERIAL (BEAKER) (test yydk=431) 19 mmol/L 21-29 BASE EXCESS ARTERIAL (BEAKER) (test hoqe=754) -5.7 mmol/L -2.0-3.0 PATIENT TEMPERATURE (BEAKER) (test ggso=0975) 37.0 C FIO2 (BEAKER) (test ppia=8918) 40.0 % POTASSIUM-STAT [id number] 22:08:00 Test Item Value Reference Range Comments POTASSIUM (BEAKER) (test zrfu=645) 3.9 meq/L 3.6-5.5 [id number] 21:24:00 Test Item Value Reference Range Comments GLUCOSE RANDOM (BEAKER) (test xdpg=723) 232 mg/dL 70-105 [id number] 21:24:00 Test Item Value Reference Range Comments POTASSIUM (BEAKER) (test qkpc=519) 3.8 meq/L 3.5-5.1 POCT-GLUCOSE [id number] 19:12:00 Test Item Value Reference Range Comments POC-GLUCOSE METER (BEAKER) 207 mg/dL 70-110 TESTED AT [facility] [address] [facility] (test trog=1658) [facility] [address] URINALYSIS W/ [id number] 17:20:00 Test Item Value Reference Range Comments COLOR (BEAKER) (test ctkj=212) Yellow CLARITY (BEAKER) (test lbzm=145) Hazy SPECIFIC GRAVITY UA (BEAKER) (test quzn=210) 1.018 1.001-1.035 PH UA (BEAKER) (test pybq=825) 5.0 5.0-8.0 PROTEIN UA (BEAKER) (test mbzg=844) 20 mg/dL Negative GLUCOSE UA (BEAKER) (test fscg=529) Negative Negative KETONES UA (BEAKER) (test pjtu=170) Negative Negative BILIRUBIN UA (BEAKER) (test rfjb=703) Negative Negative BLOOD UA (BEAKER) (test tbod=563) Moderate Negative NITRITE UA (BEAKER) (test zdch=670) Negative Negative LEUKOCYTE ESTERASE UA (BEAKER) (test wlah=539) Negative Negative UROBILINOGEN UA (BEAKER) (test irqf=034) 0.2 mg/dL 0.2-1.0 RBC UA (BEAKER) (test supe=622) 114 /HPF WBC UA (BEAKER) (test xbmj=914) 17 /HPF BACTERIA (BEAKER) (test edmz=297) Few MUCUS (BEAKER) (test oduf=6660) Occasional SQUAMOUS EPITHELIAL (BEAKER) (test oqrb=521) 2 /HPF HYALINE CASTS (BEAKER) (test vlfe=592) 9 /LPF SOURCE(BEAKER) (test memw=0650) Urine, Frances BLOOD GAS, [id number] 17:02:00 Test Item Value Reference Range Comments PH ARTERIAL (BEAKER) (test mbdl=797) 7.32 7.35-7.45 PCO2 ARTERIAL (BEAKER) (test rctk=721) 43 mmHg 35-45 PO2 ARTERIAL (BEAKER) (test yvmh=909) 175 mmHg 80-90 O2 SATURATION ARTERIAL (BEAKER) (test ydhj=230) 99.1 % 96.0-97.0 HCO3 ARTERIAL (BEAKER) (test hwhh=844) 22 mmol/L 21-29 BASE EXCESS ARTERIAL (BEAKER) (test yafk=552) -4.5 mmol/L -2.0-3.0 PATIENT TEMPERATURE (BEAKER) (test ejyi=3781) 36.7 C FIO2 (BEAKER) (test mlbp=5485) 60.0 % RAD, CHEST, 1 VIEW, NON [id number] 15:57:00Reason for exam:->s./p OHSShould this be performed at the bedside?->YesFINAL REPORT Chest one view compared to July 15, 2016 Discussion: Cardiacprominence, drainage tubes, right IJ line in place. There is pulmonary congestion and atelectasis. There may be small effusions but no pneumothorax. Signed: Taty Osborne Verified Date/Time: 07/24/2017 15:57:34 Reading Location: [place] [id number] Consult Reading Room [id number] 15:25:00 Test Item Value Reference Range Comments MAGNESIUM (BEAKER) (test 2.5 mg/dL 1.6-2.6 Specimen slightly hemolyzed tmbf=564) [id number] 15:25:00 Test Item Value Reference Range Comments PHOSPHORUS (BEAKER) (test 3.5 mg/dL 2.3-4.7 Specimen slightly hemolyzed prsf=753) BASIC METABOLIC [id number] 15:25:00 Test Item Value Reference Range Comments SODIUM (BEAKER) (test 142 meq/L 136-145 ylft=119) POTASSIUM (BEAKER) (test 4.0 meq/L 3.5-5.1 Specimen slightly hgqj=332) hemolyzed CHLORIDE (BEAKER) (test 112 meq/L 98-107 ztib=390) CO2 (BEAKER) (test 19 meq/L 22-29 obri=226) BLOOD UREA NITROGEN 17 mg/dL 7-21 (BEAKER) (test yuat=040) CREATININE (BEAKER) (test 1.35 mg/dL 0.57-1.25 Specimen slightly fdgp=379) hemolyzed GLUCOSE RANDOM (BEAKER) 158 mg/dL 70-105 (test vcqs=786) CALCIUM (BEAKER) (test 8.5 mg/dL 8.4-10.2 ldiy=176) EGFR (BEAKER) (test 52 mL/min/1.73 sq m ESTIMATED GFR IS NOT weys=4528) ACCURATE CREATININE CLEARANCE IN PREDICTING GLOMERULAR FILTRATION RATE. ESTIMATED GFR IS NOT APPLICABLE FOR DIALYSIS PATIENTS. CBC W/PLT COUNT & AUTO [id number] 15:17:00 Test Item Value Reference Range Comments WHITE BLOOD CELL COUNT (BEAKER) (test ofow=256) 17.9 K/ L 3.5-10.5 RED BLOOD CELL COUNT (BEAKER) (test pqog=318) 3.27 M/ L 4.63-6.08 HEMOGLOBIN (BEAKER) (test jyxq=668) 10.8 GM/DL 13.7-17.5 HEMATOCRIT (BEAKER) (test jhlx=931) 32.9 % 40.1-51.0 MEAN CORPUSCULAR VOLUME (BEAKER) (test ijgp=653) 100.6 fL 79.0-92.2 MEAN CORPUSCULAR HEMOGLOBIN (BEAKER) (test 33.0 pg 25.7-32.2 esto=276) MEAN CORPUSCULAR HEMOGLOBIN CONC (BEAKER) (test 32.8 GM/DL 32.3-36.5 vgxv=924) RED CELL DISTRIBUTION WIDTH (BEAKER) (test 14.2 % 11.6-14.4 nfad=432) PLATELET COUNT (BEAKER) (test tkog=854) 126 K/CU MM 150-450 MEAN PLATELET VOLUME (BEAKER) (test rjez=583) 11.1 fL 9.4-12.4 NUCLEATED RED BLOOD CELLS (BEAKER) (test 0 /100 WBC 0-0 yhwi=148) NEUTROPHILS RELATIVE PERCENT (BEAKER) (test 82 % ozou=090) LYMPHOCYTES RELATIVE PERCENT (BEAKER) (test 12 % ldvd=853) MONOCYTES RELATIVE PERCENT (BEAKER) (test 5 % lvmc=681) EOSINOPHILS RELATIVE PERCENT (BEAKER) (test 0 % phkv=708) BASOPHILS RELATIVE PERCENT (BEAKER) (test 0 % wzne=079) NEUTROPHILS ABSOLUTE COUNT (BEAKER) (test 14.59 K/ L 1.78-5.38 jgxq=235) LYMPHOCYTES ABSOLUTE COUNT (BEAKER) (test 2.18 K/ L 1.32-3.57 tfpx=469) MONOCYTES ABSOLUTE COUNT (BEAKER) (test 0.84 K/ L 0.30-0.82 widt=843) EOSINOPHILS ABSOLUTE COUNT (BEAKER) (test 0.04 K/ L 0.04-0.54 krsb=893) BASOPHILS ABSOLUTE COUNT (BEAKER) (test 0.02 K/ L 0.01-0.08 eoia=557) IMMATURE GRANULOCYTES-RELATIVE PERCENT (BEAKER) 1 % 0-1 (test hxef=9840) LACTIC ACID, ARTERIAL, WHOLE [id number] 15:12:00 Test Item Value Reference Range Comments LACTATE BLOOD ARTERIAL (2) 2.7 mmol/L 0.5-2.2 Specimen slightly hemolyzed (BEAKER) (test miub=0600) Effective 09/27/2015: Units/Reference Range ChangeNew: 0.5-2.2 mmol/L Previous: 5 -20 mg/dLOXYGEN SATURATION, [id number] 15:10:00 Test Item Value Reference Range Comments O2 SATURATION (MEASURED) (BEAKER) (test jqrl=9015) 78.9 % From distal port of IJ central venous catheterCALCIUM, [id number] 15:07: 00 Test Item Value Reference Range Comments CALCIUM IONIZED (BEAKER) (test adxb=099) 1.11 mmol/L 1.12-1.27 PH, BLOOD (BEAKER) (test ihbs=1135) 7.28 BLOOD GAS, [id number] 15:07:00 Test Item Value Reference Range Comments PH ARTERIAL (BEAKER) (test rdei=720) 7.28 7.35-7.45 PCO2 ARTERIAL (BEAKER) (test xfyo=464) 45 mmHg 35-45 PO2 ARTERIAL (BEAKER) (test nmhp=901) 119 mmHg 80-90 O2 SATURATION ARTERIAL (BEAKER) (test abgw=273) 97.9 % 96.0-97.0 HCO3 ARTERIAL (BEAKER) (test zddj=812) 21 mmol/L 21-29 BASE EXCESS ARTERIAL (BEAKER) (test mskm=725) -6.2 mmol/L -2.0-3.0 PATIENT TEMPERATURE (BEAKER) (test hkbj=8109) 36.3 C FIO2 (BEAKER) (test dier=8875) 60.0 % [id number] 14:18:00 Test Item Value Reference Range Comments ACTIVATED CLOTTING TIME 114 sec TESTED AT [place] [id number] [facility] (BEAKER) (test lkdl=911) [place] [address] [id number] 14:18:00 Test Item Value Reference Range Comments ACTIVATED CLOTTING TIME 131 sec TESTED AT [place] [id number] [facility] (BEAKER) (test fgow=678) [place] [address] [id number] 14:18:00 Test Item Value Reference Range Comments ACTIVATED CLOTTING TIME 532 sec TESTED AT [place] [id number] [facility] (BEAKER) (test bpuv=095) [place] [address] [id number] 14:18:00 Test Item Value Reference Range Comments ACTIVATED CLOTTING TIME 598 sec TESTED AT [place] [address] [facility] (BEAKER) (test uaxu=772) [place] [address] [id number] 14:18:00 Test Item Value Reference Range Comments ACTIVATED CLOTTING TIME 786 sec TESTED AT [facility] [address] [facility] (BEAKER) (test ooul=907) [facility] [address] [id number] 14:18:00 Test Item Value Reference Range Comments ACTIVATED CLOTTING TIME 786 sec TESTED AT [facility] [address] (BEAKER) (test fhkp=488) [facility] [address] PLATELET [id number] 13:19:00 Test Item Value Reference Range Comments PLATELET COUNT (BEAKER) (test ytol=111) 77 K/CU MM 150-450 CALCIUM, [id number] 13:01:00 Test Item Value Reference Range Comments CALCIUM IONIZED (BEAKER) (test fbtd=380) 1.22 mmol/L 1.12-1.27 PH, BLOOD (BEAKER) (test zmjj=1424) 7.32 BLOOD GAS, [id number] 13:01:00 Test Item Value Reference Range Comments PH ARTERIAL (BEAKER) (test nwfc=858) 7.34 7.35-7.45 PCO2 ARTERIAL (BEAKER) (test rhop=996) 39 mmHg 35-45 PO2 ARTERIAL (BEAKER) (test nbmx=236) 192 mmHg 80-90 O2 SATURATION ARTERIAL (BEAKER) (test sawo=028) 99.3 % 96.0-97.0 HCO3 ARTERIAL (BEAKER) (test puwo=494) 20 mmol/L 21-29 BASE EXCESS ARTERIAL (BEAKER) (test bgaj=346) -5.3 mmol/L -2.0-3.0 PATIENT TEMPERATURE (BEAKER) (test zptv=1772) 35.9 C FIO2 (BEAKER) (test ozgs=9040) 90.0 % GLUCOSE-STAT [id number] 13:01:00 Test Item Value Reference Range Comments GLUCOSE RANDOM (BEAKER) (test zveo=602) 164 mg/dL 70-110 HGB/HCT (H&H) - STAT [id number] 13:01:00 Test Item Value Reference Range Comments HEMOGLOBIN (BEAKER) (test ldsz=991) 11.9 g/dL 13.0-16.8 HEMATOCRIT (BEAKER) (test ifia=869) 35.0 % 40.0-50.0 SODIUM NA-STAT [id number] 13:00:00 Test Item Value Reference Range Comments SODIUM (BEAKER) (test filw=599) 136 meq/L 135-148 POTASSIUM-STAT [id number] 13:00:00 Test Item Value Reference Range Comments POTASSIUM (BEAKER) (test attf=913) 4.3 meq/L 3.6-5.5 PROTHROMBIN [id number] 12:44:00 Test Item Value Reference Range Comments PROTIME (BEAKER) (test uvbr=040) 22.5 seconds 11.7-14.7 INR (BEAKER) (test chpk=846) 2.0 <=5.9 RECOMMENDED COUMADIN/WARFARIN INR THERAPY RANGESSTANDARD DOSE: 2.0 - 3.0 Includes: PROPHYLAXIS forvenous thrombosis, systemic embolization; TREATMENT for venous thrombosis and/or pulmonary embolus.HIGH RISK: Target INR is 2.5-3.5 for patients with mechanical heart valves.[id number] 12:44:00 Test Item Value Reference Range Comments PARTIAL THROMBOPLASTIN TIME (BEAKER) (test 33.1 seconds 22.5-36.0 wvoo=482) [id number] 12:44:00 Test Item Value Reference Range Comments FIBRINOGEN LEVEL (BEAKER) (test hnav=603) 287 mg/dl 225-434 BLOOD GAS, [id number] 12:25:00 Test Item Value Reference Range Comments PH ARTERIAL (BEAKER) (test vwvm=195) 7.30 7.35-7.45 PCO2 ARTERIAL (BEAKER) (test uyvm=220) 41 mmHg 35-45 PO2 ARTERIAL (BEAKER) (test wasz=386) 175 mmHg 80-90 O2 SATURATION ARTERIAL (BEAKER) (test fbdo=782) 99.1 % 96.0-97.0 HCO3 ARTERIAL (BEAKER) (test thch=850) 20 mmol/L 21-29 BASE EXCESS ARTERIAL (BEAKER) (test ndyk=057) -6.5 mmol/L -2.0-3.0 PATIENT TEMPERATURE (BEAKER) (test yarg=3233) 35.7 C FIO2 (BEAKER) (test fgdt=3649) 90.0 % GLUCOSE-STAT [id number] 12:25:00 Test Item Value Reference Range Comments GLUCOSE RANDOM (BEAKER) (test cikk=540) 162 mg/dL 70-110 HGB/HCT (H&H) - STAT [id number] 12:25:00 Test Item Value Reference Range Comments HEMOGLOBIN (BEAKER) (test qjhi=744) 11.1 g/dL 13.0-16.8 HEMATOCRIT (BEAKER) (test lpzx=496) 33.0 % 40.0-50.0 CALCIUM, [id number] 12:25:00 Test Item Value Reference Range Comments CALCIUM IONIZED (BEAKER) (test zxhx=466) 1.08 mmol/L 1.12-1.27 PH, BLOOD (BEAKER) (test mcmj=2971) 7.28 SODIUM NA-STAT [id number] 12:24:00 Test Item Value Reference Range Comments SODIUM (BEAKER) (test ipgs=505) 136 meq/L 135-148 POTASSIUM-STAT [id number] 12:24:00 Test Item Value Reference Range Comments POTASSIUM (BEAKER) (test vnse=662) 4.7 meq/L 3.6-5.5 PROTHROMBIN [id number] 11:44:00 Test Item Value Reference Range Comments PROTIME (BEAKER) (test tcya=933) 31.1 seconds 11.7-14.7 INR (BEAKER) (test onhk=348) 3.0 <=5.9 RECOMMENDED COUMADIN/WARFARIN INR THERAPY RANGESSTANDARD DOSE: 2.0 - 3.0 Includes: PROPHYLAXIS forvenous thrombosis, systemic embolization; TREATMENT for venous thrombosis and/or pulmonary embolus.HIGH RISK: Target INR is 2.5-3.5 for patients with mechanical heart valves.[id number] 11:44:00 Test Item Value Reference Range Comments FIBRINOGEN LEVEL (BEAKER) (test fefr=312) 335 mg/dl 225-434 PLATELET [id number] 11:32:00 Test Item Value Reference Range Comments PLATELET COUNT (BEAKER) (test rwcz=065) 109 K/CU MM 150-450 SODIUM NA-STAT [id number] 11:28:00 Test Item Value Reference Range Comments SODIUM (BEAKER) (test snaw=292) 136 meq/L 135-148 BLOOD GAS, [id number] 11:28:00 Test Item Value Reference Range Comments PH ARTERIAL (BEAKER) (test hlgo=377) 7.38 7.35-7.45 PCO2 ARTERIAL (BEAKER) (test ipbv=743) 39 mmHg 35-45 PO2 ARTERIAL (BEAKER) (test ylrc=653) 402 mmHg 80-90 O2 SATURATION ARTERIAL (BEAKER) (test gnry=955) 99.8 % 96.0-97.0 HCO3 ARTERIAL (BEAKER) (test qkss=265) 23 mmol/L 21-29 BASE EXCESS ARTERIAL (BEAKER) (test kout=241) -2.6 mmol/L -2.0-3.0 PATIENT TEMPERATURE (BEAKER) (test dcvu=6091) 35.6 C FIO2 (BEAKER) (test cxgv=3086) 80.0 % POTASSIUM-STAT [id number] 11:28:00 Test Item Value Reference Range Comments POTASSIUM (BEAKER) (test koat=739) 5.6 meq/L 3.6-5.5 GLUCOSE-STAT [id number] 11:28:00 Test Item Value Reference Range Comments GLUCOSE RANDOM (BEAKER) (test tvrl=538) 168 mg/dL 70-110 HGB/HCT (H&H) - STAT [id number] 11:28:00 Test Item Value Reference Range Comments HEMOGLOBIN (BEAKER) (test nruc=085) 11.2 g/dL 13.0-16.8 HEMATOCRIT (BEAKER) (test tgpt=462) 33.0 % 40.0-50.0 POTASSIUM-STAT [id number] 11:03:00 Test Item Value Reference Range Comments POTASSIUM (BEAKER) (test msys=665) 4.6 meq/L 3.6-5.5 BLOOD GAS, [id number] 11:03:00 Test Item Value Reference Range Comments PH ARTERIAL (BEAKER) (test xegj=767) 7.28 7.35-7.45 PCO2 ARTERIAL (BEAKER) (test ogsz=552) 43 mmHg 35-45 PO2 ARTERIAL (BEAKER) (test jrfz=378) 332 mmHg 80-90 O2 SATURATION ARTERIAL (BEAKER) (test ytcf=840) 99.7 % 96.0-97.0 HCO3 ARTERIAL (BEAKER) (test lork=564) 21 mmol/L 21-29 BASE EXCESS ARTERIAL (BEAKER) (test ujew=272) -6.7 mmol/L -2.0-3.0 PATIENT TEMPERATURE (BEAKER) (test tyus=3713) 33.1 C FIO2 (BEAKER) (test hlym=2632) 80.0 % SODIUM NA-STAT [id number] 11:03:00 Test Item Value Reference Range Comments SODIUM (BEAKER) (test vkgu=765) 134 meq/L 135-148 GLUCOSE-STAT [id number] 11:03:00 Test Item Value Reference Range Comments GLUCOSE RANDOM (BEAKER) (test ugzz=712) 157 mg/dL 70-110 HGB/HCT (H&H) - STAT [id number] 11:03:00 Test Item Value Reference Range Comments HEMOGLOBIN (BEAKER) (test nonr=156) 11.8 g/dL 13.0-16.8 HEMATOCRIT (BEAKER) (test egwc=167) 35.0 % 40.0-50.0 BLOOD GAS, [id number] 11:01:00 Test Item Value Reference Range Comments PH VENOUS (BEAKER) (test fbbs=156) 7.27 7.32-7.42 PCO2 VENOUS (BEAKER) (test qgvc=609) 45 mmHg 41-51 PO2 VENOUS (BEAKER) (test yhia=946) 46 mmHg 25-40 O2 SATURATION VENOUS (BEAKER) (test nysw=879) 85.7 % 40.0-70.0 HCO3 VENOUS (BEAKER) (test iqug=181) 22 mmol/L 21-29 BASE EXCESS VENOUS (BEAKER) (test gcmh=640) -6.5 mmol/L -2.0-3.0 PATIENT TEMPERATURE (BEAKER) (test wais=2576) 33.1 C FIO2 (BEAKER) (test awzc=6366) 80.0 % BLOOD GAS, [id number] 09:32:00 Test Item Value Reference Range Comments PH ARTERIAL (BEAKER) (test fkmy=644) 7.38 7.35-7.45 PCO2 ARTERIAL (BEAKER) (test wnws=666) 36 mmHg 35-45 PO2 ARTERIAL (BEAKER) (test wngy=175) 341 mmHg 80-90 O2 SATURATION ARTERIAL (BEAKER) (test bnvy=671) 99.7 % 96.0-97.0 HCO3 ARTERIAL (BEAKER) (test skjc=660) 21 mmol/L 21-29 BASE EXCESS ARTERIAL (BEAKER) (test cnxd=744) -4.0 mmol/L -2.0-3.0 PATIENT TEMPERATURE (BEAKER) (test mwyn=3982) 35.9 C FIO2 (BEAKER) (test gvnp=2989) 90.0 % GLUCOSE-STAT [id number] 09:32:00 Test Item Value Reference Range Comments GLUCOSE RANDOM (BEAKER) (test qqbr=896) 151 mg/dL 70-110 SODIUM NA-STAT [id number] 09:31:00 Test Item Value Reference Range Comments SODIUM (BEAKER) (test arkt=460) 136 meq/L 135-148 POTASSIUM-STAT [id number] 09:31:00 Test Item Value Reference Range Comments POTASSIUM (BEAKER) (test kqaz=801) 4.2 meq/L 3.6-5.5 HGB/HCT (H&H) - STAT [id number] 09:31:00 Test Item Value Reference Range Comments HEMOGLOBIN (BEAKER) (test jhnm=509) 16.5 g/dL 13.0-16.8 HEMATOCRIT (BEAKER) (test ffvi=104) 49.0 % 40.0-50.0 RAD, CHEST, 2 [id number] 12:00:00Reason for Exam:->Pre-OpFINAL REPORT TECHNIQUE: Frontal and [...] Location: [facility] Radiology Reading Room HEMOGLOBIN [id number] 11:51:00 Test Item Value Reference Range Comments HEMOGLOBIN A1C (BEAKER) (test vbhf=985) 7.6 % 4.3-6.1 BASIC METABOLIC [id number] 10:24:00 Test Item Value Reference Range Comments SODIUM (BEAKER) (test 139 meq/L 136-145 ycvf=949) POTASSIUM (BEAKER) (test 4.3 meq/L 3.5-5.1 vzvk=790) CHLORIDE (BEAKER) (test 110 meq/L 98-107 elhu=191) CO2 (BEAKER) (test 21 meq/L 22-29 dwop=347) BLOOD UREA NITROGEN 21 mg/dL 7-21 (BEAKER) (test nwcz=901) CREATININE (BEAKER) (test 1.38 mg/dL 0.57-1.25 ipon=765) GLUCOSE RANDOM (BEAKER) 147 mg/dL 70-105 (test ssop=267) CALCIUM (BEAKER) (test 8.6 mg/dL 8.4-10.2 obca=178) EGFR (BEAKER) (test 50 mL/min/1.73 sq m ESTIMATED GFR IS NOT jzgb=0788) ACCURATE CREATININE CLEARANCE IN PREDICTING GLOMERULAR FILTRATION RATE. ESTIMATED GFR IS NOT APPLICABLE FOR DIALYSIS PATIENTS. PROTHROMBIN [id number] 10:21:00 Test Item Value Reference Range Comments PROTIME (BEAKER) (test fbiw=095) 14.9 seconds 11.7-14.7 INR (BEAKER) (test hpyz=283) 1.2 <=5.9 RECOMMENDED COUMADIN/WARFARIN INR THERAPY RANGESSTANDARD DOSE: 2.0 - 3.0 Includes: PROPHYLAXIS forvenous thrombosis, systemic embolization; TREATMENT for venous thrombosis and/or pulmonary embolus.HIGH RISK: Target INR is 2.5-3.5 for patients with mechanical heart valves.CBC W/PLT COUNT & AUTO [id number] 10:11:00 Test Item Value Reference Range Comments WHITE BLOOD CELL COUNT (BEAKER) (test xgru=481) 6.3 K/ L 3.5-10.5 RED BLOOD CELL COUNT (BEAKER) (test qdxu=775) 4.77 M/ L 4.63-6.08 HEMOGLOBIN (BEAKER) (test zpor=969) 15.8 GM/DL 13.7-17.5 HEMATOCRIT (BEAKER) (test izxd=579) 47.0 % 40.1-51.0 MEAN CORPUSCULAR VOLUME (BEAKER) (test olgu=390) 98.5 fL 79.0-92.2 MEAN CORPUSCULAR HEMOGLOBIN (BEAKER) (test 33.1 pg 25.7-32.2 rxta=764) MEAN CORPUSCULAR HEMOGLOBIN CONC (BEAKER) (test 33.6 GM/DL 32.3-36.5 xmpr=915) RED CELL DISTRIBUTION WIDTH (BEAKER) (test 14.3 % 11.6-14.4 gmoj=004) PLATELET COUNT (BEAKER) (test zdce=355) 161 K/CU MM 150-450 MEAN PLATELET VOLUME (BEAKER) (test dtvb=337) 11.2 fL 9.4-12.4 NUCLEATED RED BLOOD CELLS (BEAKER) (test 0 /100 WBC 0-0 azcy=809) NEUTROPHILS RELATIVE PERCENT (BEAKER) (test 72 % jqnj=662) LYMPHOCYTES RELATIVE PERCENT (BEAKER) (test 18 % uekk=145) MONOCYTES RELATIVE PERCENT (BEAKER) (test 8 % wobn=654) EOSINOPHILS RELATIVE PERCENT (BEAKER) (test 1 % yexy=228) BASOPHILS RELATIVE PERCENT (BEAKER) (test 1 % ybbi=056) NEUTROPHILS ABSOLUTE COUNT (BEAKER) (test 4.47 K/ L 1.78-5.38 wjlo=885) LYMPHOCYTES ABSOLUTE COUNT (BEAKER) (test 1.15 K/ L 1.32-3.57 hvmr=308) MONOCYTES ABSOLUTE COUNT (BEAKER) (test 0.48 K/ L 0.30-0.82 ewxh=761) EOSINOPHILS ABSOLUTE COUNT (BEAKER) (test 0.07 K/ L 0.04-0.54 moht=095) BASOPHILS ABSOLUTE COUNT (BEAKER) (test 0.04 K/ L 0.01-0.08 wrkh=172) IMMATURE GRANULOCYTES-RELATIVE PERCENT (BEAKER) 1 % 0-1 (test gmtm=6024)
--- NOTE | 2018-05-25 19:50 | ER ---
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 gail Peterson is managing; was told by home health nurse to come to the ER; BP was low at 99/43; denies fever and chills;. Transition of care: patient was not received from another setting of care. Onset of symptoms was May 25, 2018. Risk Assessment: Do you want to hurt yourself or someone else? Patient reports no desire to harm self or others. Initial Sepsis Screen: Does the patient meet any 2 criteria? Yes Does the patient have a suspected source of infection? Yes: Skin breakdown/wound. Care prior to arrival: None. 17:31 Method Of Arrival: Ambulatory 17:31 Acuity: ESTELLE 3 hj Triage Assessment: 17:34 General: Appears in no apparent distress. uncomfortable, Behavior is calm, cooperative, hj appropriate for age. Pain: Complains of pain in right gluteus hunter. Historical: - Allergies: 17:34 No Known Drug Allergies; hj - PMHx: 17:34 "fluid on the lungs"; Atrial Fib; CHF; CVA; Diabetes - NIDDM; Gout; Hyperlipidemia; hj - PSHx: 17:34 Triple ByPass; Colostomy; hj - Immunization history:: Adult Immunizations up to date. - Social history:: Smoking status: Patient/guardian denies using tobacco, Patient/guardian denies using alcohol. - Ebola Screening: : Patient negative for fever greater than or equal to 101.5 degrees Fahrenheit, and additional compatible Ebola Virus Disease symptoms Patient denies exposure to infectious person Patient denies travel to an Ebola-affected area in the 21 days before illness onset. Screenin:34 Abuse screen: Denies threats or abuse. Denies injuries from another. Nutritional hj screening: No deficits noted. Tuberculosis screening: No symptoms or risk factors identified. Fall Risk None identified. Assessment: 18:00 General: Appears uncomfortable, well groomed, well developed, well nourished, Behavior tl3 is calm, cooperative, appropriate for age. Pain: Complains of pain in buttocks and right gluteus hunter. Neuro: Level of Consciousness is awake, alert, obeys commands. Cardiovascular: Patient's skin is warm and dry. Respiratory: Airway is patent Respiratory effort is even, unlabored, Respiratory pattern is regular, symmetrical. GI: No signs and/or symptoms were reported involving the gastrointestinal system. : No signs and/or symptoms were reported regarding the genitourinary system. EENT: No signs and/or symptoms were reported regarding the EENT system. Derm: Decubitus located on right buttock Reports home health nurse thought the wound needed to be looked at. Musculoskeletal: No signs and/or symptoms reported regarding the musculoskeletal system. 19:20 Reassessment: Patient appears in no apparent distress at this time. No changes from tl3 previously documented assessment. Patient and/or family updated on plan of care and expected duration. Pain level reassessed. Patient is alert, oriented x 3, equal unlabored respirations, skin warm/dry/pink. no needs at this time. Vital Signs: 17:35 BP 134 / 100; Pulse 63; Resp 18; Temp 97.7(O); Pulse Ox 96% on R/A; Weight 103.87 kg; hj Height 6 ft. 0 in. (182.88 cm); Pain 9/10; 18:00 BP 128 / 98; Pulse 65; Resp 18; Pulse Ox 97% on R/A; tl3 19:20 BP 132 / 84; Pulse 64; Resp 18; Pulse Ox 87% on R/A; tl3 17:35 Body Mass Index 31.06 (103.87 kg, 182.88 cm) ED Course: 17:25 Patient arrived in ED. mr 17:27 Dylon Omer MD is Private Physician. mr 17:33 Triage completed. hj 17:34 Arm band placed on right wrist. hj 17:35 Patient has correct armband on for positive identification. Placed in gown. Bed in low hj position. Call light in reach. Side rails up X 1. Adult w/ patient. 18:00 wound inspection and dressing, wet to dry. IV discontinued, intact, bleeding tl3 controlled, No redness/swelling at site. Pressure dressing applied. 18:21 Ronal James PA is PHCP. jr8 18:21 Dickson Israel MD is Attending Physician. jr8 18:48 Gayatri Espinoza, ZO is Primary Nurse. tl3 19:49 Sabas Peterson MD is Referral Physician. jr8 Administered Medications: 19:40 Drug: Bactrim (160 mg-800 mg (DS) 1 tablet Route: PO; tl3 20:44 Follow up: Response: Medication administered at discharge. tl3 Outcome: 19:50 Discharge ordered by . jr8 20:35 Discharged to home via wheelchair. tl3 20:35 Condition: stable 20:35 Discharge instructions given to patient, family, Instructed on discharge instructions, follow up and referral plans. medication usage, Demonstrated understanding of instructions, follow-up care, medications, Prescriptions given X 1. 20:44 Patient left the ED. tl3 Signatures: Mei Valdez Ronal James PA PA jr8 Sabas Abernathy RN RN Gayatri Espinoza, ZO RN tl3 Corrections: (The following items were deleted from the chart) 17:38 17:35 Pulse 63bpm; Resp 18bpm; Pulse Ox 96% RA; Temp 97.7F Oral; 103.87 kg; Height 6 hj ft. 0 in.; BMI: 31.0; Pain 9/10; hj 20:46 20:00 Discharge instructions given to patient, family, Instructed on discharge tl3 instructions, follow up and referral plans. medication usage, Demonstrated understanding of instructions, follow-up care, medications, Prescriptions given X 1, tl3 20:46 20:00 Discharged to home via wheelchair, tl3 tl3 20:46 20:00 Condition: stable tl3 tl3
--- NOTE | 2018-05-25 19:50 | EDPHYS ---
Physician Documentation [facility] Name: Hudson Pacheco Age: 73 yrs Sex: Male : 1945 Arrival Date: 05/25/2018 Time: 17:25 Bed 27 Private MD: Dylon Omer V ED Physician Dickson Israel HPI: 05/25 19:52 This 73 yrs old Male presents to ER via Ambulatory with complaints of Wound jr8 Infection. 19:52 Patient has been undergoing wound therapy and wound vac treatment for pressure ulcer to jr8 left buttock. Home health sent him to hospital for increased redness around wound. Concern that he may be getting cellulitis . Historical: - Allergies: 17:34 No Known Drug Allergies; hj - PMHx: 17:34 "fluid on the lungs"; Atrial Fib; CHF; CVA; Diabetes - NIDDM; Gout; Hyperlipidemia; hj - PSHx: 17:34 Triple ByPass; Colostomy; hj - Immunization history:: Adult Immunizations up to date. - Social history:: Smoking status: Patient/guardian denies using tobacco, Patient/guardian denies using alcohol. - Ebola Screening: : Patient negative for fever greater than or equal to 101.5 degrees Fahrenheit, and additional compatible Ebola Virus Disease symptoms Patient denies exposure to infectious person Patient denies travel to an Ebola-affected area in the 21 days before illness onset. ROS: 19:52 Eyes: Negative for injury, pain, redness, and discharge, ENT: Negative for injury, jr8 pain, and discharge, Neck: Negative for injury, pain, and swelling, Cardiovascular: Negative for chest pain, palpitations, and edema, Respiratory: Negative for shortness of breath, cough, wheezing, and pleuritic chest pain, Abdomen/GI: Negative for abdominal pain, nausea, vomiting, diarrhea, and constipation, Back: Negative for injury and pain, MS/Extremity: Negative for injury and deformity, Neuro: Negative for headache, weakness, numbness, tingling, and seizure. 19:52 Skin: Positive for open wound left buttock . Exam: 19:52 Eyes: Pupils equal round and reactive to light, extra-ocular motions intact. Lids and jr8 lashes normal. Conjunctiva and sclera are non-icteric and not injected. Cornea within normal limits. Periorbital areas with no swelling, redness, or edema. ENT: Nares patent. No nasal discharge, no septal abnormalities noted. Tympanic membranes are normal and external auditory canals are clear. Oropharynx with no redness, swelling, or masses, exudates, or evidence of obstruction, uvula midline. Mucous membranes moist. Neck: Trachea midline, no thyromegaly or masses palpated, and no cervical lymphadenopathy. Supple, full range of motion without nuchal rigidity, or vertebral point tenderness. No Meningismus. Cardiovascular: Regular rate and rhythm with a normal S1 and S2. No gallops, murmurs, or rubs. Normal PMI, no JVD. No pulse deficits. Respiratory: Lungs have equal breath sounds bilaterally, clear to auscultation and percussion. No rales, rhonchi or wheezes noted. No increased work of breathing, no retractions or nasal flaring. Abdomen/GI: Soft, non-tender, with normal bowel sounds. No distension or tympany. No guarding or rebound. No evidence of tenderness throughout. Back: No spinal tenderness. No costovertebral tenderness. Full range of motion. MS/ Extremity: Pulses equal, no cyanosis. Neurovascular intact. Full, normal range of motion. Neuro: Awake and alert, GCS 15, oriented to person, place, time, and situation. Cranial nerves II-XII grossly intact. Motor strength 5/5 in all extremities. Sensory grossly intact. Cerebellar exam normal. Normal gait. 19:52 Skin: Patient has approximately 5 cm open wound noted to left buttock. Clean margins with no discharge or eschar noted to wound. No bleeding inside wound. Erythema noted around wound but without induration. Vital Signs: 17:35 BP 134 / 100; Pulse 63; Resp 18; Temp 97.7(O); Pulse Ox 96% on R/A; Weight 103.87 kg; hj Height 6 ft. 0 in. (182.88 cm); Pain 9/10; 18:00 BP 128 / 98; Pulse 65; Resp 18; Pulse Ox 97% on R/A; tl3 19:20 BP 132 / 84; Pulse 64; Resp 18; Pulse Ox 87% on R/A; tl3 17:35 Body Mass Index 31.06 (103.87 kg, 182.88 cm) MDM: 18:21 Patient medically screened. jr8 19:49 Data reviewed: vital signs, nurses notes, and as a result, I will discharge patient. jr8 Data interpreted: Pulse oximetry: on room air is 96 %. Interpretation: normal. Counseling: I had a detailed discussion with the patient and/or guardian regarding: the historical points, exam findings, and any diagnostic results supporting the discharge/admit diagnosis, the need for outpatient follow up, a general surgeon. Administered Medications: 19:40 Drug: Bactrim (160 mg-800 mg (DS) 1 tablet Route: PO; tl3 20:44 Follow up: Response: Medication administered at discharge. tl3 Disposition: 05/26 15:59 Co-signature as Attending Physician, Dickson Israel MD I agree with the assessment and kdr plan of care. Disposition: 05/25/18 19:50 Discharged to Home. Impression: Open wound of left buttock. - Condition is Stable. - Discharge Instructions: Preventing Pressure Injuries. - Prescriptions for Bactrim DS 800- 160 mg Oral Tablet - take 1 tablet by ORAL route every 12 hours for 10 days; 20 tablet. - Medication Reconciliation Form, Thank You Letter, Antibiotic Education, Prescription Opioid Use form. - Follow up: Sabas Peterson MD; When: 2 - 3 days; Reason: Recheck today's complaints, Continuance of care, Re-evaluation by your physician. - Problem is new. - Symptoms have improved. Signatures: Dickson Israel MD MD [facility] Ronal James PA PA jr8 Sabas Abernathy RN ZO Gayatri Espinoza RN RN tl3 Corrections: (The following items were deleted from the chart) 05/25 20:44 19:50 05/25/2018 19:50 Discharged to Home. Impression: Open wound of left buttock. tl3 Condition is Stable. Forms are Medication Reconciliation Form, Thank You Letter, Antibiotic Education, Prescription Opioid Use. Follow up: Sabas Peterson; When: 2 - 3 days; Reason: Recheck today's complaints, Continuance of care, Re-evaluation by your physician. Problem is new. Symptoms have improved. jr8
[2018-05-25] MEDS ORDERED: SMZ./TMP. 800/160 MG TABLET ONE (20:08)
[2018-05-25 21:15] VITALS: TEMP 97.7
[2018-05-25 21:17] VITALS: BP 132/84; O2SAT 87
== END 2018-05-25 20:44 | disposition home or self-care (01) ==
LOC: ER 17:23
DX: L89.324 Pressure ulcer of left buttock, stage 4 (principal); L89.329 Pressure ulcer of left buttock, unspecified stage
CPT/HCPCS: 99283

== ENCOUNTER 2018-05-29 17:31 | Inpatient (IN) | payer OTHER ==
--- OUTSIDE RECORDS SUMMARY | 2018-05-29 17:44 | XMS REPORT ---
:1945 [facility] Address [address] [place] [address] [address] [place] [address] Care Team Providers Name Role Phone JOSE DE LA CRUZ Unavailable Unavailable LISA NAVARRO Unavailable Unavailable DENEEN, ENMANUEL JONES Unavailable Unavailable KREI TORO Unavailable Unavailable Problems This patient has no known problems. Allergies, Adverse Reactions, Alerts This patient has no known allergies or adverse reactions. Medications This patient has no known medications. Results Test Description Test Time Test Comments Text Results Atomic Results Result Comments POCT-GLUCOSE METER 2017-12-04 12:19:00 Test Item Value Reference Range Comments POC-GLUCOSE METER (BEAKER) (test 128 mg/dL 70-110 TESTED AT [address] zrsf=0152) [facility] [address] POCT-GLUCOSE [id number] 08:45:00 Test Item Value Reference Range Comments POC-GLUCOSE METER (BEAKER) 116 mg/dL 70-110 TESTED AT [address] (test ecjf=1714) [facility] [address] BLOOD [id number] 08:27:00 Test Item Value Reference Range Comments CULTURE (BEAKER) From Aerobic Bottle Only (test jswe=8754) Coagulase negative Staphylococcus GRAM STAIN RESULT From aerobic bottle (BEAKER) (test only: gram positive hoki=4981) cocci in clusters Coagulase Negative Staphylococcus Species [...] [facility] Clinical Microbiology Laboratory using the Trello Blood Culture ID Panel.This test is FDA cleared for in vitro diagnostic use and has been verified and approved by the [facility] Microbiology laboratory for clinical use. Reference Range: Not DetectedPOCT-GLUCOSE [id number] 20:41:00 Test Item Value Reference Range Comments POC-GLUCOSE METER (BEAKER) 153 mg/dL 70-110 TESTED AT [address] (test qlcb=2760) [place] [id number] POCT-GLUCOSE [id number] 18:53:00 Test Item Value Reference Range Comments POC-GLUCOSE METER (BEAKER) 138 mg/dL 70-110 TESTED AT [address] (test dniq=5365) [place] [address] POCT-GLUCOSE [id number] 12:27:00 Test Item Value Reference Range Comments POC-GLUCOSE METER (BEAKER) 147 mg/dL 70-110 TESTED AT [address] (test aieu=3728) [place] [address] POCT-GLUCOSE [id number] 08:21:00 Test Item Value Reference Range Comments POC-GLUCOSE METER (BEAKER) 106 mg/dL 70-110 TESTED AT [address] (test bapy=8741) [facility] [address] POCT-GLUCOSE [id number] 22:43:00 Test Item Value Reference Range Comments POC-GLUCOSE METER (BEAKER) 160 mg/dL 70-110 TESTED AT [address] (test cmuc=1251) [facility] [address] POCT-GLUCOSE [id number] 17:22:00 Test Item Value Reference Range Comments POC-GLUCOSE METER (BEAKER) 139 mg/dL 70-110 TESTED AT [address] (test pjbx=3005) [facility] [address] POCT-GLUCOSE [id number] 16:09:00 Test Item Value Reference Range Comments POC-GLUCOSE METER (BEAKER) 123 mg/dL 70-110 TESTED AT [address] (test ftqa=6727) [facility] [address] POCT-GLUCOSE [id number] 21:33:00 Test Item Value Reference Range Comments POC-GLUCOSE METER (BEAKER) 144 mg/dL 70-110 TESTED AT [address] (test tveq=9870) [facility] [address] POCT-GLUCOSE [id number] 17:38:00 Test Item Value Reference Range Comments POC-GLUCOSE METER (BEAKER) 126 mg/dL 70-110 TESTED AT [address] (test jsdz=2450) [place] [address] POCT-GLUCOSE [id number] 11:59:00 Test Item Value Reference Range Comments POC-GLUCOSE METER (BEAKER) 112 mg/dL 70-110 TESTED AT [address] (test wglb=5773) [place] [address] WOUND CULTURE + GRAM [id number] 08:12:00 Test Item Value Reference Range Comments CULTURE (BEAKER) (test STAPHYLOCOCCUS AUREUS 2+ Staphylococcus vpyi=7543) aureus Clindamycin (test code=10) Erythromycin (test code=4) Linezolid (test code=40) Nitrofurantoin (test code=23) Oxacillin (test code=14) Rifampin (test code=43) Tetracycline (test code=2) Trimethoprim + Sulfamethoxazole (test code=47) Vancomycin (test code=13) GRAM STAIN RESULT <1+ WBCs (BEAKER) (test muxy=2160) GRAM STAIN RESULT <1+ gram positive (BEAKER) (test cocci in chains and prst=078004) pairs 3+ Skin floraMISCELLANEOUS LAB [id number] 07:32:00 Test Item Value Reference Range Comments SCAN RESULT (test wfns=[id number]) Result comments: Coagulase Negative Staphylococcus Species (CoNS) [...] [facility] Clinical Microbiology Laboratory using the Trello Blood Culture ID Panel. This test is FDA cleared for in vitro diagnostic use and has been verified and approved by the [facility] Clinical Microbiology laboratory for clinical use. Reference Range: Not DetectedPOCT-GLUCOSE [id number] 07:31:00 Test Item Value Reference Range Comments POC-GLUCOSE METER (BEAKER) 107 mg/dL 70-110 TESTED AT [address] (test bzat=8866) [place] [address] POCT-GLUCOSE [id number] 23:08:00 Test Item Value Reference Range Comments POC-GLUCOSE METER (BEAKER) 106 mg/dL 70-110 TESTED AT [address] (test hotl=6701) [facility] [address] POCT-GLUCOSE [id number] 16:57:00 Test Item Value Reference Range Comments POC-GLUCOSE METER (BEAKER) 140 mg/dL 70-110 TESTED AT [address] (test svtm=3469) [place] [address] POCT-GLUCOSE [id number] 12:19:00 Test Item Value Reference Range Comments POC-GLUCOSE METER (BEAKER) 114 mg/dL 70-110 TESTED AT [address] (test qdqd=6196) [place] [address] POCT-GLUCOSE [id number] 08:40:00 Test Item Value Reference Range Comments POC-GLUCOSE METER (BEAKER) 117 mg/dL 70-110 TESTED AT [address] (test azui=5778) [place] [address] MR, PELVIS, [id number] 07:23:00FINAL REPORT MRI pelvis without and with [...] No evidence of osteomyelitis. Signed: Robert Laughlin [facility] Verified Date/Time: 11/30/2017 07:23 :22 Reading Location: [facility] B1 [id number] Ortho Consult Reading Room POCT-GLUCOSE [id number] 22:33:00 Test Item Value Reference Range Comments POC-GLUCOSE METER (BEAKER) 137 mg/dL 70-110 TESTED AT [address] (test cbsr=8122) [place] [address] POCT-GLUCOSE [id number] 16:49:00 Test Item Value Reference Range Comments POC-GLUCOSE METER (BEAKER) 118 mg/dL 70-110 TESTED AT [address] (test uult=1629) [place] [address] POCT-GLUCOSE [id number] 12:37:00 Test Item Value Reference Range Comments POC-GLUCOSE METER (BEAKER) 146 mg/dL 70-110 TESTED AT [address] (test deeq=3643) [place] [address] POCT-GLUCOSE [id number] 08:46:00 Test Item Value Reference Range Comments POC-GLUCOSE METER (BEAKER) 109 mg/dL 70-110 TESTED AT [address] (test suqk=6102) [place] [address] [id number] 05:26:00 Test Item Value Reference Range Comments PREALBUMIN (BEAKER) (test srml=927) 15 mg/dL 14-45 POCT-GLUCOSE [id number] 22:08:00 Test Item Value Reference Range Comments POC-GLUCOSE METER (BEAKER) 120 mg/dL 70-110 TESTED AT [address] (test ufom=8596) [place] [address] RAD, CHEST, 1 VIEW, NON [id number] 22:05:00Reason for exam:->Post PICC line insertion RUE [...] MDReport Verified Date/Time: 11/28/2017 22:05:39 Reading Location: [address] Reading Room POCT- GLUCOSE [id number] 17:58:00 Test Item Value Reference Range Comments POC-GLUCOSE METER (BEAKER) 181 mg/dL 70-110 TESTED AT [facility] [address] [facility] (test aypu=9390) [facility] [address] BASIC METABOLIC [id number] 14:55:00 Test Item Value Reference Range Comments SODIUM (BEAKER) (test 138 meq/L 136-145 fsaa=065) POTASSIUM (BEAKER) (test 4.2 meq/L 3.5-5.1 bndk=513) CHLORIDE (BEAKER) (test 106 meq/L 98-107 whba=225) CO2 (BEAKER) (test 26 meq/L 22-29 iqer=105) BLOOD UREA NITROGEN 21 mg/dL 7-21 (BEAKER) (test nknt=880) CREATININE (BEAKER) (test 1.18 mg/dL 0.57-1.25 bsqi=657) GLUCOSE RANDOM (BEAKER) 108 mg/dL 70-105 (test wlnl=331) CALCIUM (BEAKER) (test 9.3 mg/dL 8.4-10.2 lbfg=190) EGFR (BEAKER) (test 60 mL/min/1.73 sq m ESTIMATED GFR IS NOT isrz=5801) ACCURATE CREATININE CLEARANCE IN PREDICTING GLOMERULAR FILTRATION RATE. ESTIMATED GFR IS NOT APPLICABLE FOR DIALYSIS PATIENTS. CBC W/PLT COUNT & AUTO [id number] 14:29:00 Test Item Value Reference Range Comments WHITE BLOOD CELL COUNT (BEAKER) (test dyof=300) 8.5 K/ L 3.5-10.5 RED BLOOD CELL COUNT (BEAKER) (test myhi=192) 4.49 M/ L 4.63-6.08 HEMOGLOBIN (BEAKER) (test grwm=763) 11.6 GM/DL 13.7-17.5 HEMATOCRIT (BEAKER) (test meje=018) 38.7 % 40.1-51.0 MEAN CORPUSCULAR VOLUME (BEAKER) (test lpif=970) 86.2 fL 79.0-92.2 MEAN CORPUSCULAR HEMOGLOBIN (BEAKER) (test 25.8 pg 25.7-32.2 vvmz=084) MEAN CORPUSCULAR HEMOGLOBIN CONC (BEAKER) (test 30.0 GM/DL 32.3-36.5 npgf=847) RED CELL DISTRIBUTION WIDTH (BEAKER) (test 19.9 % 11.6-14.4 kwmu=498) PLATELET COUNT (BEAKER) (test oiee=479) 395 K/CU MM 150-450 MEAN PLATELET VOLUME (BEAKER) (test ktxd=591) 11.0 fL 9.4-12.4 NUCLEATED RED BLOOD CELLS (BEAKER) (test 0 /100 WBC 0-0 hlzl=456) NEUTROPHILS RELATIVE PERCENT (BEAKER) (test 71 % sqmf=712) LYMPHOCYTES RELATIVE PERCENT (BEAKER) (test 20 % jokp=245) MONOCYTES RELATIVE PERCENT (BEAKER) (test 6 % nnwf=101) EOSINOPHILS RELATIVE PERCENT (BEAKER) (test 1 % iczr=354) BASOPHILS RELATIVE PERCENT (BEAKER) (test 1 % ploc=513) NEUTROPHILS ABSOLUTE COUNT (BEAKER) (test 6.05 K/ L 1.78-5.38 zbix=656) LYMPHOCYTES ABSOLUTE COUNT (BEAKER) (test 1.73 K/ L 1.32-3.57 wjjd=611) MONOCYTES ABSOLUTE COUNT (BEAKER) (test 0.52 K/ L 0.30-0.82 frly=295) EOSINOPHILS ABSOLUTE COUNT (BEAKER) (test 0.12 K/ L 0.04-0.54 ceqf=843) BASOPHILS ABSOLUTE COUNT (BEAKER) (test 0.05 K/ L 0.01-0.08 oghp=320) IMMATURE GRANULOCYTES-RELATIVE PERCENT (BEAKER) 0 % 0-1 (test ronb=0891) AFB CULTURE + [id number] 09:43:00 Test Item Value Reference Range Comments CULTURE (BEAKER) (test No acid-fast bacilli isolated imsl=6773) in 42 days AFB SMEAR (BEAKER) (test No acid fast bacilli seen arbn=648) AFB CULTURE + [id number] 09:43:00 Test Item Value Reference Range Comments CULTURE (BEAKER) (test No acid-fast bacilli isolated ichz=9014) in 42 days AFB SMEAR (BEAKER) (test No acid fast bacilli seen hqpw=571) POCT-GLUCOSE [id number] 12:56:00 Test Item Value Reference Range Comments POC-GLUCOSE METER (BEAKER) 119 mg/dL 70-110 TESTED AT [address] (test uppm=3465) [facility] [address] POCT-GLUCOSE [id number] 08:17:00 Test Item Value Reference Range Comments POC-GLUCOSE METER (BEAKER) 111 mg/dL 70-110 TESTED AT [address] (test dsdr=0355) [place] [address] POCT-GLUCOSE [id number] 21:59:00 Test Item Value Reference Range Comments POC-GLUCOSE METER (BEAKER) 130 mg/dL 70-110 TESTED AT [address] (test obdx=8420) [place] [address] POCT-GLUCOSE [id number] 16:59:00 Test Item Value Reference Range Comments POC-GLUCOSE METER (BEAKER) 120 mg/dL 70-110 TESTED AT [address] (test ypmi=2241) [place] [address] POCT-GLUCOSE [id number] 11:30:00 Test Item Value Reference Range Comments POC-GLUCOSE METER (BEAKER) 125 mg/dL 70-110 TESTED AT [address] (test zhzy=3156) [place] [address] POCT-GLUCOSE [id number] 07:44:00 Test Item Value Reference Range Comments POC-GLUCOSE METER (BEAKER) 104 mg/dL 70-110 TESTED AT [address] (test rgyy=0040) [facility] [address] BASIC METABOLIC [id number] 06:15:00 Test Item Value Reference Range Comments SODIUM (BEAKER) (test 140 meq/L 136-145 wrab=768) POTASSIUM (BEAKER) (test 3.7 meq/L 3.5-5.1 osyr=990) CHLORIDE (BEAKER) (test 114 meq/L 98-107 trhc=976) CO2 (BEAKER) (test 16 meq/L 22-29 mdgd=265) BLOOD UREA NITROGEN 14 mg/dL 7-21 (BEAKER) (test tqya=042) CREATININE (BEAKER) (test 0.85 mg/dL 0.57-1.25 yvzk=760) GLUCOSE RANDOM (BEAKER) 83 mg/dL 70-105 (test rqaf=804) CALCIUM (BEAKER) (test 7.9 mg/dL 8.4-10.2 vmll=959) EGFR (BEAKER) (test 88 mL/min/1.73 sq m ESTIMATED GFR IS NOT yvra=2978) ACCURATE CREATININE CLEARANCE IN PREDICTING GLOMERULAR FILTRATION RATE. ESTIMATED GFR IS NOT APPLICABLE FOR DIALYSIS PATIENTS. [id number] 06:05:00 Test Item Value Reference Range Comments MAGNESIUM (BEAKER) (test ngyf=703) 1.9 mg/dL 1.6-2.6 CBC W/PLT COUNT & AUTO [id number] 05:32:00 Test Item Value Reference Range Comments WHITE BLOOD CELL COUNT (BEAKER) (test eogo=579) 8.9 K/ L 3.5-10.5 RED BLOOD CELL COUNT (BEAKER) (test eppy=529) 4.06 M/ L 4.63-6.08 HEMOGLOBIN (BEAKER) (test jski=664) 10.9 GM/DL 13.7-17.5 HEMATOCRIT (BEAKER) (test wygw=280) 37.1 % 40.1-51.0 MEAN CORPUSCULAR VOLUME (BEAKER) (test jpos=888) 91.4 fL 79.0-92.2 MEAN CORPUSCULAR HEMOGLOBIN (BEAKER) (test 26.8 pg 25.7-32.2 hevz=688) MEAN CORPUSCULAR HEMOGLOBIN CONC (BEAKER) (test 29.4 GM/DL 32.3-36.5 qmsa=866) RED CELL DISTRIBUTION WIDTH (BEAKER) (test 19.6 % 11.6-14.4 kasv=134) PLATELET COUNT (BEAKER) (test ouut=478) 392 K/CU MM 150-450 MEAN PLATELET VOLUME (BEAKER) (test fmok=042) 10.1 fL 9.4-12.4 NUCLEATED RED BLOOD CELLS (BEAKER) (test 0 /100 WBC 0-0 pcxy=588) NEUTROPHILS RELATIVE PERCENT (BEAKER) (test 70 % qtcq=633) LYMPHOCYTES RELATIVE PERCENT (BEAKER) (test 18 % bhjg=347) MONOCYTES RELATIVE PERCENT (BEAKER) (test 8 % bpmc=391) EOSINOPHILS RELATIVE PERCENT (BEAKER) (test 4 % mzps=693) BASOPHILS RELATIVE PERCENT (BEAKER) (test 1 % sgtl=281) NEUTROPHILS ABSOLUTE COUNT (BEAKER) (test 6.20 K/ L 1.78-5.38 tiad=003) LYMPHOCYTES ABSOLUTE COUNT (BEAKER) (test 1.62 K/ L 1.32-3.57 bqvv=156) MONOCYTES ABSOLUTE COUNT (BEAKER) (test 0.70 K/ L 0.30-0.82 ogwn=289) EOSINOPHILS ABSOLUTE COUNT (BEAKER) (test 0.31 K/ L 0.04-0.54 vdcj=292) BASOPHILS ABSOLUTE COUNT (BEAKER) (test 0.06 K/ L 0.01-0.08 ezet=816) IMMATURE GRANULOCYTES-RELATIVE PERCENT (BEAKER) 0 % 0-1 (test brkw=7106) POCT-GLUCOSE [id number] 20:45:00 Test Item Value Reference Range Comments POC-GLUCOSE METER (BEAKER) 158 mg/dL 70-110 TESTED AT [address] (test lxch=8186) [place] [address] POCT-GLUCOSE [id number] 17:10:00 Test Item Value Reference Range Comments POC-GLUCOSE METER (BEAKER) 149 mg/dL 70-110 TESTED AT [address] (test ooem=9141) [place] [address] FUNGUS CULTURE + [id number] 16:32:00 Test Item Value Reference Range Comments CULTURE (BEAKER) (test No fungus isolated in 28 days abtr=8560) FUNGUS SMEAR (BEAKER) (test No fungi seen iufw=2810) FUNGUS CULTURE + [id number] 16:32:00 Test Item Value Reference Range Comments CULTURE (BEAKER) (test No fungus isolated in 28 days ulcl=9968) FUNGUS SMEAR (BEAKER) (test No fungi seen wbso=6248) POCT-GLUCOSE [id number] 11:59:00 Test Item Value Reference Range Comments POC-GLUCOSE METER (BEAKER) 135 mg/dL 70-110 TESTED AT [address] (test gmvk=4358) [place] [address] POCT-GLUCOSE [id number] 08:05:00 Test Item Value Reference Range Comments POC-GLUCOSE METER (BEAKER) 167 mg/dL 70-110 TESTED AT [address] (test kksp=5527) [place] [address] BASIC METABOLIC [id number] 07:11:00 Test Item Value Reference Range Comments SODIUM (BEAKER) (test 139 meq/L 136-145 aooa=343) POTASSIUM (BEAKER) (test 3.7 meq/L 3.5-5.1 hozp=649) CHLORIDE (BEAKER) (test 116 meq/L 98-107 ugma=230) CO2 (BEAKER) (test 18 meq/L 22-29 dtru=236) BLOOD UREA NITROGEN 14 mg/dL 7-21 (BEAKER) (test tmyx=408) CREATININE (BEAKER) (test 0.84 mg/dL 0.57-1.25 iplx=123) GLUCOSE RANDOM (BEAKER) 95 mg/dL 70-105 (test uaru=266) CALCIUM (BEAKER) (test 7.7 mg/dL 8.4-10.2 lsgo=541) EGFR (BEAKER) (test 89 mL/min/1.73 sq m ESTIMATED GFR IS NOT dimj=7594) ACCURATE CREATININE CLEARANCE IN PREDICTING GLOMERULAR FILTRATION RATE. ESTIMATED GFR IS NOT APPLICABLE FOR DIALYSIS PATIENTS. [id number] 07:08:00 Test Item Value Reference Range Comments MAGNESIUM (BEAKER) (test gbsr=522) 1.6 mg/dL 1.6-2.6 POCT-GLUCOSE [id number] 21:06:00 Test Item Value Reference Range Comments POC-GLUCOSE METER (BEAKER) 166 mg/dL 70-110 TESTED AT [address] (test qvod=3629) [facility] [address] POCT-GLUCOSE [id number] 17:25:00 Test Item Value Reference Range Comments POC-GLUCOSE METER (BEAKER) 149 mg/dL 70-110 TESTED AT [address] (test ohcm=9540) [place] [address] POCT-GLUCOSE [id number] 12:40:00 Test Item Value Reference Range Comments POC-GLUCOSE METER (BEAKER) 143 mg/dL 70-110 TESTED AT [address] (test cari=2604) [place] [address] POCT-GLUCOSE [id number] 08:32:00 Test Item Value Reference Range Comments POC-GLUCOSE METER (BEAKER) 99 mg/dL 70-110 TESTED AT [address] (test cmwa=4784) [place] [address] [id number] 07:01:00 Test Item Value Reference Range Comments MAGNESIUM (BEAKER) (test 1.5 mg/dL 1.6-2.6 Specimen slightly hemolyzed ajax=071) BASIC METABOLIC [id number] 05:59:00 Test Item Value Reference Range Comments SODIUM (BEAKER) (test 140 meq/L 136-145 ogie=988) POTASSIUM (BEAKER) (test 3.9 meq/L 3.5-5.1 Specimen slightly vked=145) hemolyzed CHLORIDE (BEAKER) (test 117 meq/L 98-107 wcrd=500) CO2 (BEAKER) (test 15 meq/L 22-29 qmky=994) BLOOD UREA NITROGEN 15 mg/dL 7-21 (BEAKER) (test ecpr=663) CREATININE (BEAKER) (test 0.81 mg/dL 0.57-1.25 Specimen slightly afxq=175) hemolyzed GLUCOSE RANDOM (BEAKER) 95 mg/dL 70-105 (test xarn=754) CALCIUM (BEAKER) (test 7.6 mg/dL 8.4-10.2 vyoc=963) EGFR (BEAKER) (test 93 mL/min/1.73 sq m ESTIMATED GFR IS NOT zezk=0349) ACCURATE CREATININE CLEARANCE IN PREDICTING GLOMERULAR FILTRATION RATE. ESTIMATED GFR IS NOT APPLICABLE FOR DIALYSIS PATIENTS. CBC W/PLT COUNT & AUTO [id number] 05:12:00 Test Item Value Reference Range Comments WHITE BLOOD CELL COUNT (BEAKER) (test qdfz=929) 8.1 K/ L 3.5-10.5 RED BLOOD CELL COUNT (BEAKER) (test zouv=201) 3.27 M/ L 4.63-6.08 HEMOGLOBIN (BEAKER) (test htuz=708) 8.8 GM/DL 13.7-17.5 HEMATOCRIT (BEAKER) (test czqy=078) 30.6 % 40.1-51.0 MEAN CORPUSCULAR VOLUME (BEAKER) (test xwfr=021) 93.6 fL 79.0-92.2 MEAN CORPUSCULAR HEMOGLOBIN (BEAKER) (test 26.9 pg 25.7-32.2 utme=957) MEAN CORPUSCULAR HEMOGLOBIN CONC (BEAKER) (test 28.8 GM/DL 32.3-36.5 wctl=148) RED CELL DISTRIBUTION WIDTH (BEAKER) (test 19.8 % 11.6-14.4 lhni=217) PLATELET COUNT (BEAKER) (test kjit=396) 370 K/CU MM 150-450 MEAN PLATELET VOLUME (BEAKER) (test xttn=538) 10.5 fL 9.4-12.4 NUCLEATED RED BLOOD CELLS (BEAKER) (test 0 /100 WBC 0-0 ehsf=558) NEUTROPHILS RELATIVE PERCENT (BEAKER) (test 67 % vokg=484) LYMPHOCYTES RELATIVE PERCENT (BEAKER) (test 19 % kbwy=199) MONOCYTES RELATIVE PERCENT (BEAKER) (test 9 % bgvr=091) EOSINOPHILS RELATIVE PERCENT (BEAKER) (test 4 % mqct=148) BASOPHILS RELATIVE PERCENT (BEAKER) (test 1 % ruql=310) NEUTROPHILS ABSOLUTE COUNT (BEAKER) (test 5.46 K/ L 1.78-5.38 sbds=657) LYMPHOCYTES ABSOLUTE COUNT (BEAKER) (test 1.51 K/ L 1.32-3.57 wnon=032) MONOCYTES ABSOLUTE COUNT (BEAKER) (test 0.72 K/ L 0.30-0.82 sygl=498) EOSINOPHILS ABSOLUTE COUNT (BEAKER) (test 0.32 K/ L 0.04-0.54 fhad=607) BASOPHILS ABSOLUTE COUNT (BEAKER) (test 0.07 K/ L 0.01-0.08 mgyh=719) IMMATURE GRANULOCYTES-RELATIVE PERCENT (BEAKER) 1 % 0-1 (test jrpz=3312) POCT-GLUCOSE [id number] 21:38:00 Test Item Value Reference Range Comments POC-GLUCOSE METER (BEAKER) 119 mg/dL 70-110 TESTED AT [address] (test avgo=7913) [facility] [address] POCT-GLUCOSE [id number] 17:02:00 Test Item Value Reference Range Comments POC-GLUCOSE METER (BEAKER) 150 mg/dL 70-110 TESTED AT [address] (test kgiw=2130) [place] [address] POCT-GLUCOSE [id number] 12:18:00 Test Item Value Reference Range Comments POC-GLUCOSE METER (BEAKER) 143 mg/dL 70-110 TESTED AT [address] (test iclf=2071) [facility] [address] POCT-GLUCOSE [id number] 10:33:00 Test Item Value Reference Range Comments POC-GLUCOSE METER (BEAKER) 184 mg/dL 70-110 TESTED AT [address] (test hngh=0098) [facility] [address] POCT-GLUCOSE [id number] 21:23:00 Test Item Value Reference Range Comments POC-GLUCOSE METER (BEAKER) 130 mg/dL 70-110 TESTED AT [address] (test mxfc=3215) [facility] [id number] POCT-GLUCOSE [id number] 17:48:00 Test Item Value Reference Range Comments POC-GLUCOSE METER (BEAKER) 117 mg/dL 70-110 TESTED AT [address] (test oyll=8303) [facility] [address] POCT-GLUCOSE [id number] 13:20:00 Test Item Value Reference Range Comments POC-GLUCOSE METER (BEAKER) 118 mg/dL 70-110 TESTED AT [address] (test atlb=5218) [facility] [address] POCT-GLUCOSE [id number] 08:15:00 Test Item Value Reference Range Comments POC-GLUCOSE METER (BEAKER) 102 mg/dL 70-110 TESTED AT [address] (test wksu=5053) [facility] [address] BASIC METABOLIC [id number] 05:42:00 Test Item Value Reference Range Comments SODIUM (BEAKER) (test 139 meq/L 136-145 tsyv=666) POTASSIUM (BEAKER) (test 4.2 meq/L 3.5-5.1 qnxu=999) CHLORIDE (BEAKER) (test 114 meq/L 98-107 wzww=088) CO2 (BEAKER) (test 17 meq/L 22-29 abvw=644) BLOOD UREA NITROGEN 17 mg/dL 7-21 (BEAKER) (test bgqr=464) CREATININE (BEAKER) (test 0.90 mg/dL 0.57-1.25 xxbu=338) GLUCOSE RANDOM (BEAKER) 91 mg/dL 70-105 (test yagy=978) CALCIUM (BEAKER) (test 7.9 mg/dL 8.4-10.2 nnyr=220) EGFR (BEAKER) (test 82 mL/min/1.73 sq m ESTIMATED GFR IS NOT ngpj=2567) ACCURATE CREATININE CLEARANCE IN PREDICTING GLOMERULAR FILTRATION RATE. ESTIMATED GFR IS NOT APPLICABLE FOR DIALYSIS PATIENTS. CBC W/PLT COUNT & AUTO [id number] 04:58:00 Test Item Value Reference Range Comments WHITE BLOOD CELL COUNT (BEAKER) (test mdda=518) 8.2 K/ L 3.5-10.5 RED BLOOD CELL COUNT (BEAKER) (test xqjy=100) 3.31 M/ L 4.63-6.08 HEMOGLOBIN (BEAKER) (test ejvu=935) 9.1 GM/DL 13.7-17.5 HEMATOCRIT (BEAKER) (test arip=911) 30.7 % 40.1-51.0 MEAN CORPUSCULAR VOLUME (BEAKER) (test gbme=185) 92.7 fL 79.0-92.2 MEAN CORPUSCULAR HEMOGLOBIN (BEAKER) (test 27.5 pg 25.7-32.2 qans=586) MEAN CORPUSCULAR HEMOGLOBIN CONC (BEAKER) (test 29.6 GM/DL 32.3-36.5 hxjq=581) RED CELL DISTRIBUTION WIDTH (BEAKER) (test 19.5 % 11.6-14.4 bktt=569) PLATELET COUNT (BEAKER) (test sqfo=419) 384 K/CU MM 150-450 MEAN PLATELET VOLUME (BEAKER) (test kwrl=425) 10.2 fL 9.4-12.4 NUCLEATED RED BLOOD CELLS (BEAKER) (test 0 /100 WBC 0-0 phwy=317) NEUTROPHILS RELATIVE PERCENT (BEAKER) (test 69 % izwi=188) LYMPHOCYTES RELATIVE PERCENT (BEAKER) (test 19 % fnjw=132) MONOCYTES RELATIVE PERCENT (BEAKER) (test 8 % twnv=155) EOSINOPHILS RELATIVE PERCENT (BEAKER) (test 4 % cyaz=976) BASOPHILS RELATIVE PERCENT (BEAKER) (test 1 % shol=182) NEUTROPHILS ABSOLUTE COUNT (BEAKER) (test 5.61 K/ L 1.78-5.38 xbny=063) LYMPHOCYTES ABSOLUTE COUNT (BEAKER) (test 1.52 K/ L 1.32-3.57 cqkw=854) MONOCYTES ABSOLUTE COUNT (BEAKER) (test 0.62 K/ L 0.30-0.82 ymli=269) EOSINOPHILS ABSOLUTE COUNT (BEAKER) (test 0.31 K/ L 0.04-0.54 syyl=316) BASOPHILS ABSOLUTE COUNT (BEAKER) (test 0.04 K/ L 0.01-0.08 igtq=008) IMMATURE GRANULOCYTES-RELATIVE PERCENT (BEAKER) 1 % 0-1 (test gkxm=5692) POCT-GLUCOSE [id number] 20:56:00 Test Item Value Reference Range Comments POC-GLUCOSE METER (BEAKER) 106 mg/dL 70-110 TESTED AT [address] (test rwph=1265) [facility] [address] POCT-GLUCOSE [id number] 16:55:00 Test Item Value Reference Range Comments POC-GLUCOSE METER (BEAKER) 106 mg/dL 70-110 TESTED AT [address] (test xziy=5706) [place] [id number] POCT-GLUCOSE [id number] 12:19:00 Test Item Value Reference Range Comments POC-GLUCOSE METER (BEAKER) 121 mg/dL 70-110 TESTED AT [address] (test gljh=1768) [place] [id number] POCT-GLUCOSE [id number] 07:51:00 Test Item Value Reference Range Comments POC-GLUCOSE METER (BEAKER) 190 mg/dL 70-110 TESTED AT [address] (test gkfk=9684) [place] [id number] POCT-GLUCOSE [id number] 21:29:00 Test Item Value Reference Range Comments POC-GLUCOSE METER (BEAKER) 117 mg/dL 70-110 TESTED AT [address] (test flgq=5987) [facility] [address] POCT-GLUCOSE [id number] 17:29:00 Test Item Value Reference Range Comments POC-GLUCOSE METER (BEAKER) 123 mg/dL 70-110 TESTED AT [address] (test zlkh=0734) [place] [id number] POCT-GLUCOSE [id number] 07:09:00 Test Item Value Reference Range Comments POC-GLUCOSE METER (BEAKER) 96 mg/dL 70-110 TESTED AT [address] (test ivkv=2470) [facility] [address] BASIC METABOLIC [id number] 06:48:00 Test Item Value Reference Range Comments SODIUM (BEAKER) (test 139 meq/L 136-145 tpvr=044) POTASSIUM (BEAKER) (test 4.2 meq/L 3.5-5.1 dhwq=145) CHLORIDE (BEAKER) (test 114 meq/L 98-107 mmaq=555) CO2 (BEAKER) (test 17 meq/L 22-29 vrnm=389) BLOOD UREA NITROGEN 18 mg/dL 7-21 (BEAKER) (test ndku=577) CREATININE (BEAKER) (test 0.97 mg/dL 0.57-1.25 aliz=696) GLUCOSE RANDOM (BEAKER) 94 mg/dL 70-105 (test bxcr=618) CALCIUM (BEAKER) (test 8.3 mg/dL 8.4-10.2 ljat=013) EGFR (BEAKER) (test 76 mL/min/1.73 sq m ESTIMATED GFR IS NOT yezl=9741) ACCURATE CREATININE CLEARANCE IN PREDICTING GLOMERULAR FILTRATION RATE. ESTIMATED GFR IS NOT APPLICABLE FOR DIALYSIS PATIENTS. CBC W/PLT COUNT & AUTO [id number] 05:36:00 Test Item Value Reference Range Comments WHITE BLOOD CELL COUNT (BEAKER) (test ymjq=023) 8.0 K/ L 3.5-10.5 RED BLOOD CELL COUNT (BEAKER) (test ajjw=396) 3.32 M/ L 4.63-6.08 HEMOGLOBIN (BEAKER) (test fpmk=108) 9.1 GM/DL 13.7-17.5 HEMATOCRIT (BEAKER) (test vbpw=693) 31.1 % 40.1-51.0 MEAN CORPUSCULAR VOLUME (BEAKER) (test fevz=036) 93.7 fL 79.0-92.2 MEAN CORPUSCULAR HEMOGLOBIN (BEAKER) (test 27.4 pg 25.7-32.2 otps=743) MEAN CORPUSCULAR HEMOGLOBIN CONC (BEAKER) (test 29.3 GM/DL 32.3-36.5 abud=786) RED CELL DISTRIBUTION WIDTH (BEAKER) (test 19.7 % 11.6-14.4 fovc=135) PLATELET COUNT (BEAKER) (test kdwu=705) 361 K/CU MM 150-450 MEAN PLATELET VOLUME (BEAKER) (test fjhy=137) 10.1 fL 9.4-12.4 NUCLEATED RED BLOOD CELLS (BEAKER) (test 0 /100 WBC 0-0 cmoi=027) NEUTROPHILS RELATIVE PERCENT (BEAKER) (test 66 % lwbf=545) LYMPHOCYTES RELATIVE PERCENT (BEAKER) (test 20 % keeb=731) MONOCYTES RELATIVE PERCENT (BEAKER) (test 8 % asjf=060) EOSINOPHILS RELATIVE PERCENT (BEAKER) (test 5 % nogj=935) BASOPHILS RELATIVE PERCENT (BEAKER) (test 1 % gmmz=262) NEUTROPHILS ABSOLUTE COUNT (BEAKER) (test 5.27 K/ L 1.78-5.38 bina=360) LYMPHOCYTES ABSOLUTE COUNT (BEAKER) (test 1.62 K/ L 1.32-3.57 dmap=771) MONOCYTES ABSOLUTE COUNT (BEAKER) (test 0.61 K/ L 0.30-0.82 wsci=910) EOSINOPHILS ABSOLUTE COUNT (BEAKER) (test 0.42 K/ L 0.04-0.54 olcn=098) BASOPHILS ABSOLUTE COUNT (BEAKER) (test 0.05 K/ L 0.01-0.08 rmfu=670) IMMATURE GRANULOCYTES-RELATIVE PERCENT (BEAKER) 1 % 0-1 (test puju=6815) POCT-GLUCOSE [id number] 21:28:00 Test Item Value Reference Range Comments POC-GLUCOSE METER (BEAKER) 119 mg/dL 70-110 TESTED AT [address] (test zcdk=4784) [facility] [address] POCT-GLUCOSE [id number] 17:30:00 Test Item Value Reference Range Comments POC-GLUCOSE METER (BEAKER) 119 mg/dL 70-110 TESTED AT [address] (test ujgs=9485) [facility] [address] POCT-GLUCOSE [id number] 12:16:00 Test Item Value Reference Range Comments POC-GLUCOSE METER (BEAKER) 172 mg/dL 70-110 TESTED AT [address] (test ccck=9584) [facility] [address] POCT-GLUCOSE [id number] 08:15:00 Test Item Value Reference Range Comments POC-GLUCOSE METER (BEAKER) 118 mg/dL 70-110 TESTED AT [address] (test mhaa=3593) [place] [id number] POCT-GLUCOSE [id number] 20:56:00 Test Item Value Reference Range Comments POC-GLUCOSE METER (BEAKER) 171 mg/dL 70-110 TESTED AT [address] (test chca=2405) [place] [id number] POCT-GLUCOSE [id number] 16:52:00 Test Item Value Reference Range Comments POC-GLUCOSE METER (BEAKER) 130 mg/dL 70-110 TESTED AT [facility] [address] [facility] (test fdgh=5161) [facility] [address] POCT-GLUCOSE [id number] 12:59:00 Test Item Value Reference Range Comments POC-GLUCOSE METER (BEAKER) 124 mg/dL 70-110 TESTED AT [address] (test spoy=5116) [facility] [address] POCT-GLUCOSE [id number] 07:37:00 Test Item Value Reference Range Comments POC-GLUCOSE METER (BEAKER) 95 mg/dL 70-110 TESTED AT [address] (test amgu=8540) [facility] [address] BASIC METABOLIC [id number] 05:54:00 Test Item Value Reference Range Comments SODIUM (BEAKER) (test 140 meq/L 136-145 ieyv=609) POTASSIUM (BEAKER) (test 4.4 meq/L 3.5-5.1 wcwr=770) CHLORIDE (BEAKER) (test 116 meq/L 98-107 hyiq=484) CO2 (BEAKER) (test 17 meq/L 22-29 jvxr=059) BLOOD UREA NITROGEN 16 mg/dL 7-21 (BEAKER) (test oesk=280) CREATININE (BEAKER) (test 1.01 mg/dL 0.57-1.25 xvff=286) GLUCOSE RANDOM (BEAKER) 98 mg/dL 70-105 (test idkl=827) CALCIUM (BEAKER) (test 8.3 mg/dL 8.4-10.2 hzyl=690) EGFR (BEAKER) (test 72 mL/min/1.73 sq m ESTIMATED GFR IS NOT ecum=6133) ACCURATE CREATININE CLEARANCE IN PREDICTING GLOMERULAR FILTRATION RATE. ESTIMATED GFR IS NOT APPLICABLE FOR DIALYSIS PATIENTS. CBC W/PLT COUNT & AUTO [id number] 05:33:00 Test Item Value Reference Range Comments WHITE BLOOD CELL COUNT (BEAKER) (test euga=883) 8.8 K/ L 3.5-10.5 RED BLOOD CELL COUNT (BEAKER) (test cyfj=389) 3.34 M/ L 4.63-6.08 HEMOGLOBIN (BEAKER) (test woen=154) 9.2 GM/DL 13.7-17.5 HEMATOCRIT (BEAKER) (test zcam=538) 31.9 % 40.1-51.0 MEAN CORPUSCULAR VOLUME (BEAKER) (test tbmu=788) 95.5 fL 79.0-92.2 MEAN CORPUSCULAR HEMOGLOBIN (BEAKER) (test 27.5 pg 25.7-32.2 bpxg=461) MEAN CORPUSCULAR HEMOGLOBIN CONC (BEAKER) (test 28.8 GM/DL 32.3-36.5 zbsc=015) RED CELL DISTRIBUTION WIDTH (BEAKER) (test 19.8 % 11.6-14.4 ncun=098) PLATELET COUNT (BEAKER) (test bmru=639) 375 K/CU MM 150-450 MEAN PLATELET VOLUME (BEAKER) (test nkml=070) 9.9 fL 9.4-12.4 NUCLEATED RED BLOOD CELLS (BEAKER) (test 0 /100 WBC 0-0 bxtl=197) NEUTROPHILS RELATIVE PERCENT (BEAKER) (test 69 % knol=444) LYMPHOCYTES RELATIVE PERCENT (BEAKER) (test 17 % jlht=585) MONOCYTES RELATIVE PERCENT (BEAKER) (test 8 % mwzf=576) EOSINOPHILS RELATIVE PERCENT (BEAKER) (test 5 % mzkt=795) BASOPHILS RELATIVE PERCENT (BEAKER) (test 1 % spai=643) NEUTROPHILS ABSOLUTE COUNT (BEAKER) (test 6.05 K/ L 1.78-5.38 ndtm=398) LYMPHOCYTES ABSOLUTE COUNT (BEAKER) (test 1.53 K/ L 1.32-3.57 lqxu=264) MONOCYTES ABSOLUTE COUNT (BEAKER) (test 0.73 K/ L 0.30-0.82 gkrv=713) EOSINOPHILS ABSOLUTE COUNT (BEAKER) (test 0.40 K/ L 0.04-0.54 iecw=100) BASOPHILS ABSOLUTE COUNT (BEAKER) (test 0.05 K/ L 0.01-0.08 reoc=546) IMMATURE GRANULOCYTES-RELATIVE PERCENT (BEAKER) 1 % 0-1 (test ruif=9579) POCT-GLUCOSE [id number] 21:13:00 Test Item Value Reference Range Comments POC-GLUCOSE METER (BEAKER) 159 mg/dL 70-110 TESTED AT [facility] [address] [facility] (test pwlv=2097) [facility] [address] POCT-GLUCOSE [id number] 17:08:00 Test Item Value Reference Range Comments POC-GLUCOSE METER (BEAKER) 150 mg/dL 70-110 TESTED AT [address] (test vwdq=7545) [facility] [address] POCT-GLUCOSE [id number] 12:03:00 Test Item Value Reference Range Comments POC-GLUCOSE METER (BEAKER) 163 mg/dL 70-110 TESTED AT [address] (test zojz=5131) [facility] [address] POCT-GLUCOSE [id number] 08:07:00 Test Item Value Reference Range Comments POC-GLUCOSE METER (BEAKER) 114 mg/dL 70-110 TESTED AT [address] (test fuli=5437) [place] [id number] POCT-GLUCOSE [id number] 01:27:00 Test Item Value Reference Range Comments POC-GLUCOSE METER (BEAKER) 116 mg/dL 70-110 TESTED AT [address] (test ugib=1991) [place] [address] POCT-GLUCOSE [id number] 19:42:00 Test Item Value Reference Range Comments POC-GLUCOSE METER (BEAKER) 119 mg/dL 70-110 TESTED AT [address] (test csng=7696) [place] [address] POCT-GLUCOSE [id number] 12:22:00 Test Item Value Reference Range Comments POC-GLUCOSE METER (BEAKER) 130 mg/dL 70-110 TESTED AT [address] (test unth=9088) [place] [id number] POCT-GLUCOSE [id number] 07:40:00 Test Item Value Reference Range Comments POC-GLUCOSE METER (BEAKER) 132 mg/dL 70-110 TESTED AT [address] (test cbzd=7320) [facility] [address] BASIC METABOLIC [id number] 05:37:00 Test Item Value Reference Range Comments SODIUM (BEAKER) (test 136 meq/L 136-145 tbpc=714) POTASSIUM (BEAKER) (test 4.2 meq/L 3.5-5.1 fqsj=584) CHLORIDE (BEAKER) (test 111 meq/L 98-107 riqg=844) CO2 (BEAKER) (test 18 meq/L 22-29 fvcm=387) BLOOD UREA NITROGEN 21 mg/dL 7-21 (BEAKER) (test ghxu=438) CREATININE (BEAKER) (test 0.90 mg/dL 0.57-1.25 urlm=232) GLUCOSE RANDOM (BEAKER) 102 mg/dL 70-105 (test kkng=703) CALCIUM (BEAKER) (test 7.8 mg/dL 8.4-10.2 ienp=737) EGFR (BEAKER) (test 82 mL/min/1.73 sq m ESTIMATED GFR IS NOT hnly=2954) ACCURATE CREATININE CLEARANCE IN PREDICTING GLOMERULAR FILTRATION RATE. ESTIMATED GFR IS NOT APPLICABLE FOR DIALYSIS PATIENTS. CBC W/PLT COUNT & AUTO [id number] 05:03:00 Test Item Value Reference Range Comments WHITE BLOOD CELL COUNT (BEAKER) (test amex=198) 9.7 K/ L 3.5-10.5 RED BLOOD CELL COUNT (BEAKER) (test szff=554) 3.04 M/ L 4.63-6.08 HEMOGLOBIN (BEAKER) (test dcvy=311) 8.3 GM/DL 13.7-17.5 HEMATOCRIT (BEAKER) (test vrmb=557) 28.9 % 40.1-51.0 MEAN CORPUSCULAR VOLUME (BEAKER) (test hrox=417) 95.1 fL 79.0-92.2 MEAN CORPUSCULAR HEMOGLOBIN (BEAKER) (test 27.3 pg 25.7-32.2 mqvt=424) MEAN CORPUSCULAR HEMOGLOBIN CONC (BEAKER) (test 28.7 GM/DL 32.3-36.5 yomr=121) RED CELL DISTRIBUTION WIDTH (BEAKER) (test 19.7 % 11.6-14.4 sbxg=847) PLATELET COUNT (BEAKER) (test bacq=716) 356 K/CU MM 150-450 MEAN PLATELET VOLUME (BEAKER) (test hfre=139) 10.4 fL 9.4-12.4 NUCLEATED RED BLOOD CELLS (BEAKER) (test 0 /100 WBC 0-0 zaet=647) NEUTROPHILS RELATIVE PERCENT (BEAKER) (test 72 % waii=092) LYMPHOCYTES RELATIVE PERCENT (BEAKER) (test 15 % cxak=446) MONOCYTES RELATIVE PERCENT (BEAKER) (test 7 % aucl=772) EOSINOPHILS RELATIVE PERCENT (BEAKER) (test 5 % tslh=916) BASOPHILS RELATIVE PERCENT (BEAKER) (test 1 % kafv=417) NEUTROPHILS ABSOLUTE COUNT (BEAKER) (test 6.97 K/ L 1.78-5.38 ngwu=342) LYMPHOCYTES ABSOLUTE COUNT (BEAKER) (test 1.48 K/ L 1.32-3.57 irnp=847) MONOCYTES ABSOLUTE COUNT (BEAKER) (test 0.69 K/ L 0.30-0.82 hari=986) EOSINOPHILS ABSOLUTE COUNT (BEAKER) (test 0.44 K/ L 0.04-0.54 eusu=129) BASOPHILS ABSOLUTE COUNT (BEAKER) (test 0.05 K/ L 0.01-0.08 rdfo=695) IMMATURE GRANULOCYTES-RELATIVE PERCENT (BEAKER) 1 % 0-1 (test pdet=9721) POCT-GLUCOSE [id number] 21:34:00 Test Item Value Reference Range Comments POC-GLUCOSE METER (BEAKER) 141 mg/dL 70-110 TESTED AT [address] (test nmds=5977) [place] [address] POCT-GLUCOSE [id number] 18:21:00 Test Item Value Reference Range Comments POC-GLUCOSE METER (BEAKER) 131 mg/dL 70-110 TESTED AT [address] (test week=7007) [place] [id number] POCT-GLUCOSE [id number] 12:54:00 Test Item Value Reference Range Comments POC-GLUCOSE METER (BEAKER) 139 mg/dL 70-110 TESTED AT [address] (test bywv=3634) [place] [address] POCT-GLUCOSE [id number] 08:41:00 Test Item Value Reference Range Comments POC-GLUCOSE METER (BEAKER) 132 mg/dL 70-110 TESTED AT [address] (test eice=6901) [place] [address] BASIC METABOLIC [id number] 05:44:00 Test Item Value Reference Range Comments SODIUM (BEAKER) (test 137 meq/L 136-145 vftl=673) POTASSIUM (BEAKER) (test 3.9 meq/L 3.5-5.1 tagf=312) CHLORIDE (BEAKER) (test 111 meq/L 98-107 vdnz=732) CO2 (BEAKER) (test 17 meq/L 22-29 zhcd=223) BLOOD UREA NITROGEN 21 mg/dL 7-21 (BEAKER) (test pzic=247) CREATININE (BEAKER) (test 1.01 mg/dL 0.57-1.25 ukvf=135) GLUCOSE RANDOM (BEAKER) 136 mg/dL 70-105 (test vtez=062) CALCIUM (BEAKER) (test 7.6 mg/dL 8.4-10.2 gbgz=054) EGFR (BEAKER) (test 72 mL/min/1.73 sq m ESTIMATED GFR IS NOT ymvz=4396) ACCURATE CREATININE CLEARANCE IN PREDICTING GLOMERULAR FILTRATION RATE. ESTIMATED GFR IS NOT APPLICABLE FOR DIALYSIS PATIENTS. CBC W/PLT COUNT & AUTO [id number] 04:59:00 Test Item Value Reference Range Comments WHITE BLOOD CELL COUNT (BEAKER) (test kpar=327) 9.8 K/ L 3.5-10.5 RED BLOOD CELL COUNT (BEAKER) (test fguy=501) 3.06 M/ L 4.63-6.08 HEMOGLOBIN (BEAKER) (test liac=730) 8.5 GM/DL 13.7-17.5 HEMATOCRIT (BEAKER) (test mkft=783) 29.4 % 40.1-51.0 MEAN CORPUSCULAR VOLUME (BEAKER) (test egpl=507) 96.1 fL 79.0-92.2 MEAN CORPUSCULAR HEMOGLOBIN (BEAKER) (test 27.8 pg 25.7-32.2 xezj=819) MEAN CORPUSCULAR HEMOGLOBIN CONC (BEAKER) (test 28.9 GM/DL 32.3-36.5 osms=952) RED CELL DISTRIBUTION WIDTH (BEAKER) (test 19.9 % 11.6-14.4 sqgh=676) PLATELET COUNT (BEAKER) (test cgdy=653) 357 K/CU MM 150-450 MEAN PLATELET VOLUME (BEAKER) (test mpuk=133) 10.1 fL 9.4-12.4 NUCLEATED RED BLOOD CELLS (BEAKER) (test 0 /100 WBC 0-0 hzxs=255) NEUTROPHILS RELATIVE PERCENT (BEAKER) (test 73 % muos=758) LYMPHOCYTES RELATIVE PERCENT (BEAKER) (test 13 % ewzf=737) MONOCYTES RELATIVE PERCENT (BEAKER) (test 7 % urdv=114) EOSINOPHILS RELATIVE PERCENT (BEAKER) (test 5 % pzsf=937) BASOPHILS RELATIVE PERCENT (BEAKER) (test 1 % hrew=603) NEUTROPHILS ABSOLUTE COUNT (BEAKER) (test 7.20 K/ L 1.78-5.38 nkve=078) LYMPHOCYTES ABSOLUTE COUNT (BEAKER) (test 1.28 K/ L 1.32-3.57 silm=034) MONOCYTES ABSOLUTE COUNT (BEAKER) (test 0.72 K/ L 0.30-0.82 avqg=760) EOSINOPHILS ABSOLUTE COUNT (BEAKER) (test 0.47 K/ L 0.04-0.54 dudf=668) BASOPHILS ABSOLUTE COUNT (BEAKER) (test 0.05 K/ L 0.01-0.08 rnjw=944) IMMATURE GRANULOCYTES-RELATIVE PERCENT (BEAKER) 1 % 0-1 (test sezt=2877) POCT-GLUCOSE [id number] 21:21:00 Test Item Value Reference Range Comments POC-GLUCOSE METER (BEAKER) 141 mg/dL 70-110 TESTED AT [address] (test oail=3284) [place] [id number] POCT-GLUCOSE [id number] 17:50:00 Test Item Value Reference Range Comments POC-GLUCOSE METER (BEAKER) 142 mg/dL 70-110 TESTED AT [address] (test xhzi=6151) [facility] [address] POCT-GLUCOSE [id number] 12:12:00 Test Item Value Reference Range Comments POC-GLUCOSE METER (BEAKER) 148 mg/dL 70-110 TESTED AT [address] (test idhl=7095) [facility] [address] HEPATIC FUNCTION [id number] 09:57:00 Test Item Value Reference Range Comments TOTAL PROTEIN (BEAKER) (test csbn=590) 5.7 gm/dL 6.0-8.3 ALBUMIN (BEAKER) (test ritb=7796) 2.5 g/dL 3.5-5.0 BILIRUBIN TOTAL (BEAKER) (test wqrg=127) 0.4 mg/dL 0.2-1.2 BILIRUBIN DIRECT (BEAKER) (test zrdq=728) 0.2 mg/dL 0.1-0.5 ALKALINE PHOSPHATASE (BEAKER) (test smpq=203) 65 U/L 40-150 AST (SGOT) (BEAKER) (test xcrv=089) 18 U/L 5-34 ALT (SGPT) (BEAKER) (test cpvt=160) 11 U/L 6-55 BASIC METABOLIC [id number] 08:36:00 Test Item Value Reference Range Comments SODIUM (BEAKER) (test 139 meq/L 136-145 jafu=571) POTASSIUM (BEAKER) (test 4.1 meq/L 3.5-5.1 blci=103) CHLORIDE (BEAKER) (test 111 meq/L 98-107 hwgu=149) CO2 (BEAKER) (test 19 meq/L 22-29 hxbt=341) BLOOD UREA NITROGEN 31 mg/dL 7-21 (BEAKER) (test xtlf=728) CREATININE (BEAKER) (test 1.29 mg/dL 0.57-1.25 hwtk=926) GLUCOSE RANDOM (BEAKER) 138 mg/dL 70-105 (test agsp=568) CALCIUM (BEAKER) (test 7.7 mg/dL 8.4-10.2 fdqa=554) EGFR (BEAKER) (test 54 mL/min/1.73 sq m ESTIMATED GFR IS NOT lylt=4408) ACCURATE CREATININE CLEARANCE IN PREDICTING GLOMERULAR FILTRATION RATE. ESTIMATED GFR IS NOT APPLICABLE FOR DIALYSIS PATIENTS. POCT-GLUCOSE [id number] 08:14:00 Test Item Value Reference Range Comments POC-GLUCOSE METER (BEAKER) 156 mg/dL 70-110 TESTED AT [facility] [address] [facility] (test iuna=1581) [facility] [address] CBC W/PLT COUNT & AUTO [id number] 08:14:00 Test Item Value Reference Range Comments WHITE BLOOD CELL COUNT (BEAKER) (test spjn=803) 9.2 K/ L 3.5-10.5 RED BLOOD CELL COUNT (BEAKER) (test kjgu=776) 3.41 M/ L 4.63-6.08 HEMOGLOBIN (BEAKER) (test uuwi=447) 9.3 GM/DL 13.7-17.5 HEMATOCRIT (BEAKER) (test yfws=048) 32.5 % 40.1-51.0 MEAN CORPUSCULAR VOLUME (BEAKER) (test qimn=420) 95.3 fL 79.0-92.2 MEAN CORPUSCULAR HEMOGLOBIN (BEAKER) (test 27.3 pg 25.7-32.2 vpax=488) MEAN CORPUSCULAR HEMOGLOBIN CONC (BEAKER) (test 28.6 GM/DL 32.3-36.5 wqud=197) RED CELL DISTRIBUTION WIDTH (BEAKER) (test 20.0 % 11.6-14.4 eiwr=277) PLATELET COUNT (BEAKER) (test qisa=942) 387 K/CU MM 150-450 MEAN PLATELET VOLUME (BEAKER) (test riur=883) 10.2 fL 9.4-12.4 NUCLEATED RED BLOOD CELLS (BEAKER) (test 0 /100 WBC 0-0 phdm=415) NEUTROPHILS RELATIVE PERCENT (BEAKER) (test 76 % sstu=581) LYMPHOCYTES RELATIVE PERCENT (BEAKER) (test 12 % sxnf=005) MONOCYTES RELATIVE PERCENT (BEAKER) (test 9 % mlip=289) EOSINOPHILS RELATIVE PERCENT (BEAKER) (test 2 % nkju=251) BASOPHILS RELATIVE PERCENT (BEAKER) (test 1 % ewsm=856) NEUTROPHILS ABSOLUTE COUNT (BEAKER) (test 6.98 K/ L 1.78-5.38 bfme=201) LYMPHOCYTES ABSOLUTE COUNT (BEAKER) (test 1.10 K/ L 1.32-3.57 izkf=601) MONOCYTES ABSOLUTE COUNT (BEAKER) (test 0.79 K/ L 0.30-0.82 wrau=294) EOSINOPHILS ABSOLUTE COUNT (BEAKER) (test 0.17 K/ L 0.04-0.54 cnhw=053) BASOPHILS ABSOLUTE COUNT (BEAKER) (test 0.06 K/ L 0.01-0.08 vasj=399) IMMATURE GRANULOCYTES-RELATIVE PERCENT (BEAKER) 1 % 0-1 (test wkcc=7745) POCT-GLUCOSE [id number] 21:25:00 Test Item Value Reference Range Comments POC-GLUCOSE METER (BEAKER) 144 mg/dL 70-110 TESTED AT [address] (test pzlo=6866) [facility] [address] POCT-GLUCOSE [id number] 17:34:00 Test Item Value Reference Range Comments POC-GLUCOSE METER (BEAKER) 155 mg/dL 70-110 TESTED AT [address] (test prws=0474) [place] [id number] POCT-GLUCOSE [id number] 11:45:00 Test Item Value Reference Range Comments POC-GLUCOSE METER (BEAKER) 114 mg/dL 70-110 TESTED AT [address] (test wdff=7576) [place] [id number] POCT-GLUCOSE [id number] 07:56:00 Test Item Value Reference Range Comments POC-GLUCOSE METER (BEAKER) 106 mg/dL 70-110 TESTED AT [facility] [address] [facility] (test pvvw=8224) [facility] [address] BASIC METABOLIC [id number] 05:58:00 Test Item Value Reference Range Comments SODIUM (BEAKER) (test 137 meq/L 136-145 pjfo=667) POTASSIUM (BEAKER) (test 4.6 meq/L 3.5-5.1 wzdf=144) CHLORIDE (BEAKER) (test 110 meq/L 98-107 zdym=517) CO2 (BEAKER) (test 18 meq/L 22-29 dtgo=935) BLOOD UREA NITROGEN 38 mg/dL 7-21 (BEAKER) (test fvst=931) CREATININE (BEAKER) (test 1.32 mg/dL 0.57-1.25 olub=791) GLUCOSE RANDOM (BEAKER) 105 mg/dL 70-105 (test jfbg=664) CALCIUM (BEAKER) (test 8.0 mg/dL 8.4-10.2 mddf=040) EGFR (BEAKER) (test 53 mL/min/1.73 sq m ESTIMATED GFR IS NOT znmk=5577) ACCURATE CREATININE CLEARANCE IN PREDICTING GLOMERULAR FILTRATION RATE. ESTIMATED GFR IS NOT APPLICABLE FOR DIALYSIS PATIENTS. CBC W/PLT COUNT & AUTO [id number] 05:42:00 Test Item Value Reference Range Comments WHITE BLOOD CELL COUNT (BEAKER) (test kvpv=864) 9.1 K/ L 3.5-10.5 RED BLOOD CELL COUNT (BEAKER) (test lilc=861) 3.38 M/ L 4.63-6.08 HEMOGLOBIN (BEAKER) (test pdaf=766) 9.2 GM/DL 13.7-17.5 HEMATOCRIT (BEAKER) (test jfgi=893) 31.5 % 40.1-51.0 MEAN CORPUSCULAR VOLUME (BEAKER) (test mcyo=621) 93.2 fL 79.0-92.2 MEAN CORPUSCULAR HEMOGLOBIN (BEAKER) (test 27.2 pg 25.7-32.2 nikz=180) MEAN CORPUSCULAR HEMOGLOBIN CONC (BEAKER) (test 29.2 GM/DL 32.3-36.5 wulv=613) RED CELL DISTRIBUTION WIDTH (BEAKER) (test 19.4 % 11.6-14.4 rebx=171) PLATELET COUNT (BEAKER) (test txrc=054) 379 K/CU MM 150-450 MEAN PLATELET VOLUME (BEAKER) (test cqob=323) 9.9 fL 9.4-12.4 NUCLEATED RED BLOOD CELLS (BEAKER) (test 0 /100 WBC 0-0 lzhr=952) NEUTROPHILS RELATIVE PERCENT (BEAKER) (test 70 % dsnf=562) LYMPHOCYTES RELATIVE PERCENT (BEAKER) (test 18 % devo=234) MONOCYTES RELATIVE PERCENT (BEAKER) (test 7 % jdlt=551) EOSINOPHILS RELATIVE PERCENT (BEAKER) (test 3 % wyqx=246) BASOPHILS RELATIVE PERCENT (BEAKER) (test 1 % enpy=190) NEUTROPHILS ABSOLUTE COUNT (BEAKER) (test 6.33 K/ L 1.78-5.38 akqv=588) LYMPHOCYTES ABSOLUTE COUNT (BEAKER) (test 1.65 K/ L 1.32-3.57 voge=768) MONOCYTES ABSOLUTE COUNT (BEAKER) (test 0.66 K/ L 0.30-0.82 uyfu=893) EOSINOPHILS ABSOLUTE COUNT (BEAKER) (test 0.28 K/ L 0.04-0.54 hoxb=906) BASOPHILS ABSOLUTE COUNT (BEAKER) (test 0.07 K/ L 0.01-0.08 hoag=828) IMMATURE GRANULOCYTES-RELATIVE PERCENT (BEAKER) 1 % 0-1 (test xmei=0097) POCT-GLUCOSE [id number] 21:38:00 Test Item Value Reference Range Comments POC-GLUCOSE METER (BEAKER) 124 mg/dL 70-110 TESTED AT [address] (test ofaa=4179) [facility] [id number] POCT-GLUCOSE [id number] 18:26:00 Test Item Value Reference Range Comments POC-GLUCOSE METER (BEAKER) 115 mg/dL 70-110 TESTED AT [address] (test qusq=3547) [facility] [address] POCT-GLUCOSE [id number] 11:51:00 Test Item Value Reference Range Comments POC-GLUCOSE METER (BEAKER) 148 mg/dL 70-110 TESTED AT [address] (test nbuq=9977) [facility] [address] POCT-GLUCOSE [id number] 08:28:00 Test Item Value Reference Range Comments POC-GLUCOSE METER (BEAKER) 124 mg/dL 70-110 TESTED AT [facility] [address] (test cxtt=5023) [facility] [address] BASIC METABOLIC [id number] 06:52:00 Test Item Value Reference Range Comments SODIUM (BEAKER) (test 138 meq/L 136-145 dpos=634) POTASSIUM (BEAKER) (test 4.4 meq/L 3.5-5.1 eywq=522) CHLORIDE (BEAKER) (test 109 meq/L 98-107 vcmm=013) CO2 (BEAKER) (test 21 meq/L 22-29 zvgj=608) BLOOD UREA NITROGEN 48 mg/dL 7-21 (BEAKER) (test avrx=484) CREATININE (BEAKER) (test 1.40 mg/dL 0.57-1.25 ixzw=672) GLUCOSE RANDOM (BEAKER) 112 mg/dL 70-105 (test puaj=143) CALCIUM (BEAKER) (test 8.2 mg/dL 8.4-10.2 shac=373) EGFR (BEAKER) (test 50 mL/min/1.73 sq m ESTIMATED GFR IS NOT ngpn=1408) ACCURATE CREATININE CLEARANCE IN PREDICTING GLOMERULAR FILTRATION RATE. ESTIMATED GFR IS NOT APPLICABLE FOR DIALYSIS PATIENTS. CBC W/PLT COUNT & AUTO [id number] 06:19:00 Test Item Value Reference Range Comments WHITE BLOOD CELL COUNT (BEAKER) (test copw=899) 9.2 K/ L 3.5-10.5 RED BLOOD CELL COUNT (BEAKER) (test ifyh=130) 3.32 M/ L 4.63-6.08 HEMOGLOBIN (BEAKER) (test tnim=823) 9.2 GM/DL 13.7-17.5 HEMATOCRIT (BEAKER) (test pbxi=451) 31.3 % 40.1-51.0 MEAN CORPUSCULAR VOLUME (BEAKER) (test qxdd=158) 94.3 fL 79.0-92.2 MEAN CORPUSCULAR HEMOGLOBIN (BEAKER) (test 27.7 pg 25.7-32.2 wdyb=989) MEAN CORPUSCULAR HEMOGLOBIN CONC (BEAKER) (test 29.4 GM/DL 32.3-36.5 uoee=158) RED CELL DISTRIBUTION WIDTH (BEAKER) (test 19.5 % 11.6-14.4 zmhm=914) PLATELET COUNT (BEAKER) (test ssej=232) 420 K/CU MM 150-450 MEAN PLATELET VOLUME (BEAKER) (test qydw=797) 10.1 fL 9.4-12.4 NUCLEATED RED BLOOD CELLS (BEAKER) (test 0 /100 WBC 0-0 cipo=356) NEUTROPHILS RELATIVE PERCENT (BEAKER) (test 68 % qheg=330) LYMPHOCYTES RELATIVE PERCENT (BEAKER) (test 19 % hnjo=746) MONOCYTES RELATIVE PERCENT (BEAKER) (test 9 % deto=069) EOSINOPHILS RELATIVE PERCENT (BEAKER) (test 3 % jyzd=992) BASOPHILS RELATIVE PERCENT (BEAKER) (test 1 % fkbo=104) NEUTROPHILS ABSOLUTE COUNT (BEAKER) (test 6.25 K/ L 1.78-5.38 xede=900) LYMPHOCYTES ABSOLUTE COUNT (BEAKER) (test 1.72 K/ L 1.32-3.57 upyd=346) MONOCYTES ABSOLUTE COUNT (BEAKER) (test 0.80 K/ L 0.30-0.82 zpqf=370) EOSINOPHILS ABSOLUTE COUNT (BEAKER) (test 0.29 K/ L 0.04-0.54 pucu=806) BASOPHILS ABSOLUTE COUNT (BEAKER) (test 0.07 K/ L 0.01-0.08 acqo=118) IMMATURE GRANULOCYTES-RELATIVE PERCENT (BEAKER) 1 % 0-1 (test hyga=8851) POCT-GLUCOSE [id number] 21:24:00 Test Item Value Reference Range Comments POC-GLUCOSE METER (BEAKER) 153 mg/dL 70-110 TESTED AT [address] (test vpsg=3059) [place] [id number] POCT-GLUCOSE [id number] 16:21:00 Test Item Value Reference Range Comments POC-GLUCOSE METER (BEAKER) 177 mg/dL 70-110 TESTED AT [place] [id number] [facility] (test vjao=0415) [place] [id number] [employer] CULTURE + [id number] 12:45:00 Test Item Value Reference Range Comments CULTURE (BEAKER) (test No acid-fast bacilli isolated uypn=8624) in 42 days AFB SMEAR (BEAKER) (test No acid fast bacilli seen pgmn=591) POCT-GLUCOSE [id number] 12:07:00 Test Item Value Reference Range Comments POC-GLUCOSE METER (BEAKER) 141 mg/dL 70-110 TESTED AT [facility] [address] [facility] (test gbwv=7684) [facility] [address] POCT-GLUCOSE [id number] 07:48:00 Test Item Value Reference Range Comments POC-GLUCOSE METER (BEAKER) 141 mg/dL 70-110 TESTED AT [facility] [address] [facility] (test tvja=1023) [facility] [address] BASIC METABOLIC [id number] 04:55:00 Test Item Value Reference Range Comments SODIUM (BEAKER) (test 137 meq/L 136-145 jhfm=985) POTASSIUM (BEAKER) (test 4.5 meq/L 3.5-5.1 mxco=998) CHLORIDE (BEAKER) (test 107 meq/L 98-107 okgd=514) CO2 (BEAKER) (test 21 meq/L 22-29 hfui=373) BLOOD UREA NITROGEN 47 mg/dL 7-21 (BEAKER) (test sjcd=207) CREATININE (BEAKER) (test 1.32 mg/dL 0.57-1.25 ruic=679) GLUCOSE RANDOM (BEAKER) 111 mg/dL 70-105 (test cvad=970) CALCIUM (BEAKER) (test 8.2 mg/dL 8.4-10.2 weic=797) EGFR (BEAKER) (test 53 mL/min/1.73 sq m ESTIMATED GFR IS NOT povh=1560) ACCURATE CREATININE CLEARANCE IN PREDICTING GLOMERULAR FILTRATION RATE. ESTIMATED GFR IS NOT APPLICABLE FOR DIALYSIS PATIENTS. CBC W/PLT COUNT & AUTO [id number] 04:44:00 Test Item Value Reference Range Comments WHITE BLOOD CELL COUNT (BEAKER) (test cndg=315) 9.4 K/ L 3.5-10.5 RED BLOOD CELL COUNT (BEAKER) (test nnth=875) 3.36 M/ L 4.63-6.08 HEMOGLOBIN (BEAKER) (test cmby=158) 9.2 GM/DL 13.7-17.5 HEMATOCRIT (BEAKER) (test hyhd=421) 31.4 % 40.1-51.0 MEAN CORPUSCULAR VOLUME (BEAKER) (test vwwq=236) 93.5 fL 79.0-92.2 MEAN CORPUSCULAR HEMOGLOBIN (BEAKER) (test 27.4 pg 25.7-32.2 kuul=993) MEAN CORPUSCULAR HEMOGLOBIN CONC (BEAKER) (test 29.3 GM/DL 32.3-36.5 yrsv=353) RED CELL DISTRIBUTION WIDTH (BEAKER) (test 19.6 % 11.6-14.4 ucny=897) PLATELET COUNT (BEAKER) (test hqhr=787) 432 K/CU MM 150-450 MEAN PLATELET VOLUME (BEAKER) (test ywjt=127) 10.0 fL 9.4-12.4 NUCLEATED RED BLOOD CELLS (BEAKER) (test 0 /100 WBC 0-0 gmrh=713) NEUTROPHILS RELATIVE PERCENT (BEAKER) (test 69 % brqx=810) LYMPHOCYTES RELATIVE PERCENT (BEAKER) (test 18 % hdla=289) MONOCYTES RELATIVE PERCENT (BEAKER) (test 8 % yozp=373) EOSINOPHILS RELATIVE PERCENT (BEAKER) (test 3 % sjfs=739) BASOPHILS RELATIVE PERCENT (BEAKER) (test 1 % myca=659) NEUTROPHILS ABSOLUTE COUNT (BEAKER) (test 6.48 K/ L 1.78-5.38 xuvp=719) LYMPHOCYTES ABSOLUTE COUNT (BEAKER) (test 1.68 K/ L 1.32-3.57 asdz=080) MONOCYTES ABSOLUTE COUNT (BEAKER) (test 0.76 K/ L 0.30-0.82 dspa=425) EOSINOPHILS ABSOLUTE COUNT (BEAKER) (test 0.29 K/ L 0.04-0.54 gygf=564) BASOPHILS ABSOLUTE COUNT (BEAKER) (test 0.07 K/ L 0.01-0.08 jttp=655) IMMATURE GRANULOCYTES-RELATIVE PERCENT (BEAKER) 1 % 0-1 (test xdrw=7380) POCT-GLUCOSE [id number] 21:14:00 Test Item Value Reference Range Comments POC-GLUCOSE METER (BEAKER) 151 mg/dL 70-110 TESTED AT [address] (test vufs=1153) [facility] [address] POCT-GLUCOSE [id number] 17:35:00 Test Item Value Reference Range Comments POC-GLUCOSE METER (BEAKER) 111 mg/dL 70-110 TESTED AT [address] (test myre=4393) [facility] [address] POCT-GLUCOSE [id number] 13:31:00 Test Item Value Reference Range Comments POC-GLUCOSE METER (BEAKER) 141 mg/dL 70-110 TESTED AT [facility] [address] [facility] (test eyft=5894) [facility] [address] POCT-GLUCOSE [id number] 08:31:00 Test Item Value Reference Range Comments POC-GLUCOSE METER (BEAKER) 112 mg/dL 70-110 TESTED AT [facility] [address] [facility] (test yooy=9400) [facility] [address] BASIC METABOLIC [id number] 06:01:00 Test Item Value Reference Range Comments SODIUM (BEAKER) (test 138 meq/L 136-145 lpaw=787) POTASSIUM (BEAKER) (test 4.6 meq/L 3.5-5.1 monl=578) CHLORIDE (BEAKER) (test 109 meq/L 98-107 gobz=003) CO2 (BEAKER) (test 21 meq/L 22-29 fjzn=591) BLOOD UREA NITROGEN 41 mg/dL 7-21 (BEAKER) (test casr=993) CREATININE (BEAKER) (test 1.35 mg/dL 0.57-1.25 ffns=989) GLUCOSE RANDOM (BEAKER) 111 mg/dL 70-105 (test tlhj=084) CALCIUM (BEAKER) (test 8.3 mg/dL 8.4-10.2 gwdd=596) EGFR (BEAKER) (test 52 mL/min/1.73 sq m ESTIMATED GFR IS NOT lynr=9955) ACCURATE CREATININE CLEARANCE IN PREDICTING GLOMERULAR FILTRATION RATE. ESTIMATED GFR IS NOT APPLICABLE FOR DIALYSIS PATIENTS. CBC W/PLT COUNT & AUTO [id number] 05:43:00 Test Item Value Reference Range Comments WHITE BLOOD CELL COUNT (BEAKER) (test uxin=789) 8.9 K/ L 3.5-10.5 RED BLOOD CELL COUNT (BEAKER) (test ouix=315) 3.42 M/ L 4.63-6.08 HEMOGLOBIN (BEAKER) (test ygca=730) 9.4 GM/DL 13.7-17.5 HEMATOCRIT (BEAKER) (test ifko=858) 33.0 % 40.1-51.0 MEAN CORPUSCULAR VOLUME (BEAKER) (test lxqy=344) 96.5 fL 79.0-92.2 MEAN CORPUSCULAR HEMOGLOBIN (BEAKER) (test 27.5 pg 25.7-32.2 zwwi=497) MEAN CORPUSCULAR HEMOGLOBIN CONC (BEAKER) (test 28.5 GM/DL 32.3-36.5 txcc=979) RED CELL DISTRIBUTION WIDTH (BEAKER) (test 19.4 % 11.6-14.4 wwvq=572) PLATELET COUNT (BEAKER) (test odxy=447) 420 K/CU MM 150-450 MEAN PLATELET VOLUME (BEAKER) (test thbz=040) 10.0 fL 9.4-12.4 NUCLEATED RED BLOOD CELLS (BEAKER) (test 0 /100 WBC 0-0 bsta=452) NEUTROPHILS RELATIVE PERCENT (BEAKER) (test 69 % gqwl=323) LYMPHOCYTES RELATIVE PERCENT (BEAKER) (test 18 % sqxc=653) MONOCYTES RELATIVE PERCENT (BEAKER) (test 9 % rlgo=003) EOSINOPHILS RELATIVE PERCENT (BEAKER) (test 3 % audw=202) BASOPHILS RELATIVE PERCENT (BEAKER) (test 1 % oftb=953) NEUTROPHILS ABSOLUTE COUNT (BEAKER) (test 6.09 K/ L 1.78-5.38 ougc=857) LYMPHOCYTES ABSOLUTE COUNT (BEAKER) (test 1.57 K/ L 1.32-3.57 zdro=715) MONOCYTES ABSOLUTE COUNT (BEAKER) (test 0.77 K/ L 0.30-0.82 vcry=413) EOSINOPHILS ABSOLUTE COUNT (BEAKER) (test 0.26 K/ L 0.04-0.54 lwdz=538) BASOPHILS ABSOLUTE COUNT (BEAKER) (test 0.07 K/ L 0.01-0.08 sumf=671) IMMATURE GRANULOCYTES-RELATIVE PERCENT (BEAKER) 1 % 0-1 (test lefu=3067) POCT-GLUCOSE [id number] 22:00:00 Test Item Value Reference Range Comments POC-GLUCOSE METER (BEAKER) 126 mg/dL 70-110 TESTED AT [address] (test uklg=6989) [facility] [address] POCT-GLUCOSE [id number] 17:08:00 Test Item Value Reference Range Comments POC-GLUCOSE METER (BEAKER) 179 mg/dL 70-110 TESTED AT [address] (test ylvh=5340) [facility] [address] POCT-GLUCOSE [id number] 12:10:00 Test Item Value Reference Range Comments POC-GLUCOSE METER (BEAKER) 128 mg/dL 70-110 TESTED AT [facility] [address] [facility] (test cfqw=1676) [facility] [address] POCT-GLUCOSE [id number] 07:38:00 Test Item Value Reference Range Comments POC-GLUCOSE METER (BEAKER) 127 mg/dL 70-110 TESTED AT [facility] [address] [facility] (test fuec=6615) [facility] [address] BASIC METABOLIC [id number] 04:23:00 Test Item Value Reference Range Comments SODIUM (BEAKER) (test 137 meq/L 136-145 wplt=234) POTASSIUM (BEAKER) (test 4.4 meq/L 3.5-5.1 gcbj=905) CHLORIDE (BEAKER) (test 106 meq/L 98-107 fpzo=383) CO2 (BEAKER) (test 22 meq/L 22-29 vqfr=460) BLOOD UREA NITROGEN 39 mg/dL 7-21 (BEAKER) (test pumq=211) CREATININE (BEAKER) (test 1.45 mg/dL 0.57-1.25 qtxi=941) GLUCOSE RANDOM (BEAKER) 122 mg/dL 70-105 (test ewac=792) CALCIUM (BEAKER) (test 8.2 mg/dL 8.4-10.2 lyge=792) EGFR (BEAKER) (test 48 mL/min/1.73 sq m ESTIMATED GFR IS NOT afja=3124) ACCURATE CREATININE CLEARANCE IN PREDICTING GLOMERULAR FILTRATION RATE. ESTIMATED GFR IS NOT APPLICABLE FOR DIALYSIS PATIENTS. CBC W/PLT COUNT & AUTO [id number] 04:06:00 Test Item Value Reference Range Comments WHITE BLOOD CELL COUNT (BEAKER) (test vxmr=827) 10.4 K/ L 3.5-10.5 RED BLOOD CELL COUNT (BEAKER) (test yvjs=685) 3.33 M/ L 4.63-6.08 HEMOGLOBIN (BEAKER) (test vman=064) 9.3 GM/DL 13.7-17.5 HEMATOCRIT (BEAKER) (test bnwa=378) 31.3 % 40.1-51.0 MEAN CORPUSCULAR VOLUME (BEAKER) (test nslu=538) 94.0 fL 79.0-92.2 MEAN CORPUSCULAR HEMOGLOBIN (BEAKER) (test 27.9 pg 25.7-32.2 gmuy=364) MEAN CORPUSCULAR HEMOGLOBIN CONC (BEAKER) (test 29.7 GM/DL 32.3-36.5 nywk=431) RED CELL DISTRIBUTION WIDTH (BEAKER) (test 19.0 % 11.6-14.4 tmqx=029) PLATELET COUNT (BEAKER) (test yheo=836) 427 K/CU MM 150-450 MEAN PLATELET VOLUME (BEAKER) (test wyoz=271) 9.4 fL 9.4-12.4 NUCLEATED RED BLOOD CELLS (BEAKER) (test 0 /100 WBC 0-0 yuiw=022) NEUTROPHILS RELATIVE PERCENT (BEAKER) (test 72 % fqvy=541) LYMPHOCYTES RELATIVE PERCENT (BEAKER) (test 15 % cfkq=436) MONOCYTES RELATIVE PERCENT (BEAKER) (test 10 % sjvd=726) EOSINOPHILS RELATIVE PERCENT (BEAKER) (test 2 % ctku=732) BASOPHILS RELATIVE PERCENT (BEAKER) (test 1 % iqtf=138) NEUTROPHILS ABSOLUTE COUNT (BEAKER) (test 7.44 K/ L 1.78-5.38 ngqj=922) LYMPHOCYTES ABSOLUTE COUNT (BEAKER) (test 1.55 K/ L 1.32-3.57 emnn=687) MONOCYTES ABSOLUTE COUNT (BEAKER) (test 0.99 K/ L 0.30-0.82 apez=973) EOSINOPHILS ABSOLUTE COUNT (BEAKER) (test 0.24 K/ L 0.04-0.54 ybob=495) BASOPHILS ABSOLUTE COUNT (BEAKER) (test 0.05 K/ L 0.01-0.08 ztiw=458) IMMATURE GRANULOCYTES-RELATIVE PERCENT (BEAKER) 1 % 0-1 (test folk=8341) POCT-GLUCOSE [id number] 21:40:00 Test Item Value Reference Range Comments POC-GLUCOSE METER (BEAKER) 139 mg/dL 70-110 TESTED AT [address] (test pvhz=2454) [facility] [address] POCT-GLUCOSE [id number] 17:42:00 Test Item Value Reference Range Comments POC-GLUCOSE METER (BEAKER) 131 mg/dL 70-110 TESTED AT [address] (test jzps=3387) [facility] [address] POCT-GLUCOSE [id number] 11:35:00 Test Item Value Reference Range Comments POC-GLUCOSE METER (BEAKER) 141 mg/dL 70-110 TESTED AT [facility] [address] [facility] (test vxwd=8261) [facility] [address] POCT-GLUCOSE [id number] 08:03:00 Test Item Value Reference Range Comments POC-GLUCOSE METER (BEAKER) 125 mg/dL 70-110 TESTED AT [facility] [address] [facility] (test brev=5546) [facility] [address] BASIC METABOLIC [id number] 05:36:00 Test Item Value Reference Range Comments SODIUM (BEAKER) (test 138 meq/L 136-145 dsva=488) POTASSIUM (BEAKER) (test 4.5 meq/L 3.5-5.1 hoij=129) CHLORIDE (BEAKER) (test 106 meq/L 98-107 hznr=859) CO2 (BEAKER) (test 23 meq/L 22-29 yira=837) BLOOD UREA NITROGEN 41 mg/dL 7-21 (BEAKER) (test ferw=209) CREATININE (BEAKER) (test 1.55 mg/dL 0.57-1.25 uekr=815) GLUCOSE RANDOM (BEAKER) 115 mg/dL 70-105 (test fjxz=077) CALCIUM (BEAKER) (test 8.5 mg/dL 8.4-10.2 hqdy=479) EGFR (BEAKER) (test 44 mL/min/1.73 sq m ESTIMATED GFR IS NOT bpjm=9290) ACCURATE CREATININE CLEARANCE IN PREDICTING GLOMERULAR FILTRATION RATE. ESTIMATED GFR IS NOT APPLICABLE FOR DIALYSIS PATIENTS. CBC W/PLT COUNT & AUTO [id number] 03:42:00 Test Item Value Reference Range Comments WHITE BLOOD CELL COUNT (BEAKER) (test eqxl=925) 10.2 K/ L 3.5-10.5 RED BLOOD CELL COUNT (BEAKER) (test pwds=859) 3.57 M/ L 4.63-6.08 HEMOGLOBIN (BEAKER) (test oiuz=163) 10.0 GM/DL 13.7-17.5 HEMATOCRIT (BEAKER) (test yctz=500) 33.2 % 40.1-51.0 MEAN CORPUSCULAR VOLUME (BEAKER) (test cqbh=260) 93.0 fL 79.0-92.2 MEAN CORPUSCULAR HEMOGLOBIN (BEAKER) (test 28.0 pg 25.7-32.2 zmio=085) MEAN CORPUSCULAR HEMOGLOBIN CONC (BEAKER) (test 30.1 GM/DL 32.3-36.5 utpd=228) RED CELL DISTRIBUTION WIDTH (BEAKER) (test 18.9 % 11.6-14.4 wlqp=226) PLATELET COUNT (BEAKER) (test idhi=434) 479 K/CU MM 150-450 MEAN PLATELET VOLUME (BEAKER) (test efau=933) 10.2 fL 9.4-12.4 NUCLEATED RED BLOOD CELLS (BEAKER) (test 0 /100 WBC 0-0 hcfx=656) NEUTROPHILS RELATIVE PERCENT (BEAKER) (test 70 % amyn=039) LYMPHOCYTES RELATIVE PERCENT (BEAKER) (test 17 % sdld=199) MONOCYTES RELATIVE PERCENT (BEAKER) (test 8 % ibdq=508) EOSINOPHILS RELATIVE PERCENT (BEAKER) (test 3 % mhfm=975) BASOPHILS RELATIVE PERCENT (BEAKER) (test 1 % lzjj=012) NEUTROPHILS ABSOLUTE COUNT (BEAKER) (test 7.12 K/ L 1.78-5.38 kuqm=782) LYMPHOCYTES ABSOLUTE COUNT (BEAKER) (test 1.74 K/ L 1.32-3.57 iqvn=180) MONOCYTES ABSOLUTE COUNT (BEAKER) (test 0.82 K/ L 0.30-0.82 vouz=393) EOSINOPHILS ABSOLUTE COUNT (BEAKER) (test 0.30 K/ L 0.04-0.54 dyfu=153) BASOPHILS ABSOLUTE COUNT (BEAKER) (test 0.08 K/ L 0.01-0.08 cikn=642) IMMATURE GRANULOCYTES-RELATIVE PERCENT (BEAKER) 1 % 0-1 (test qcfh=7613) POCT-GLUCOSE [id number] 21:24:00 Test Item Value Reference Range Comments POC-GLUCOSE METER (BEAKER) 137 mg/dL 70-110 TESTED AT [address] (test lvhn=8362) [facility] [address] POCT-GLUCOSE [id number] 17:12:00 Test Item Value Reference Range Comments POC-GLUCOSE METER (BEAKER) 152 mg/dL 70-110 TESTED AT [address] (test fsml=9909) [facility] [address] POCT-GLUCOSE [id number] 11:57:00 Test Item Value Reference Range Comments POC-GLUCOSE METER (BEAKER) 151 mg/dL 70-110 TESTED AT [address] (test yvdg=1145) [facility] [address] BASIC METABOLIC [id number] 07:24:00 Test Item Value Reference Range Comments SODIUM (BEAKER) (test 136 meq/L 136-145 jdic=587) POTASSIUM (BEAKER) (test 4.8 meq/L 3.5-5.1 Specimen slightly egww=618) hemolyzed CHLORIDE (BEAKER) (test 105 meq/L 98-107 nfak=584) CO2 (BEAKER) (test 20 meq/L 22-29 vhwk=696) BLOOD UREA NITROGEN 44 mg/dL 7-21 (BEAKER) (test bxya=816) CREATININE (BEAKER) (test 1.65 mg/dL 0.57-1.25 Specimen slightly beye=291) hemolyzed GLUCOSE RANDOM (BEAKER) 105 mg/dL 70-105 (test iecj=732) CALCIUM (BEAKER) (test 8.7 mg/dL 8.4-10.2 xbxn=952) EGFR (BEAKER) (test 41 mL/min/1.73 sq m ESTIMATED GFR IS NOT cvph=0644) ACCURATE CREATININE CLEARANCE IN PREDICTING GLOMERULAR FILTRATION RATE. ESTIMATED GFR IS NOT APPLICABLE FOR DIALYSIS PATIENTS. POCT-GLUCOSE [id number] 06:53:00 Test Item Value Reference Range Comments POC-GLUCOSE METER (BEAKER) 184 mg/dL 70-110 TESTED AT [address] (test jmhy=0696) [place] [id number] CBC W/PLT COUNT & AUTO [id number] 06:01:00 Test Item Value Reference Range Comments WHITE BLOOD CELL COUNT (BEAKER) (test tcas=357) 9.2 K/ L 3.5-10.5 RED BLOOD CELL COUNT (BEAKER) (test hkie=991) 3.58 M/ L 4.63-6.08 HEMOGLOBIN (BEAKER) (test lley=502) 9.8 GM/DL 13.7-17.5 HEMATOCRIT (BEAKER) (test oeyu=254) 33.5 % 40.1-51.0 MEAN CORPUSCULAR VOLUME (BEAKER) (test eyec=556) 93.6 fL 79.0-92.2 MEAN CORPUSCULAR HEMOGLOBIN (BEAKER) (test 27.4 pg 25.7-32.2 wuhh=381) MEAN CORPUSCULAR HEMOGLOBIN CONC (BEAKER) (test 29.3 GM/DL 32.3-36.5 aoxg=287) RED CELL DISTRIBUTION WIDTH (BEAKER) (test 18.6 % 11.6-14.4 gfhx=679) PLATELET COUNT (BEAKER) (test uowc=607) 466 K/CU MM 150-450 MEAN PLATELET VOLUME (BEAKER) (test glva=103) 10.2 fL 9.4-12.4 NUCLEATED RED BLOOD CELLS (BEAKER) (test 0 /100 WBC 0-0 cclq=788) NEUTROPHILS RELATIVE PERCENT (BEAKER) (test 71 % zrns=076) LYMPHOCYTES RELATIVE PERCENT (BEAKER) (test 16 % ccqd=395) MONOCYTES RELATIVE PERCENT (BEAKER) (test 9 % aelg=756) EOSINOPHILS RELATIVE PERCENT (BEAKER) (test 2 % wphp=201) BASOPHILS RELATIVE PERCENT (BEAKER) (test 1 % szyq=005) NEUTROPHILS ABSOLUTE COUNT (BEAKER) (test 6.47 K/ L 1.78-5.38 qdjx=539) LYMPHOCYTES ABSOLUTE COUNT (BEAKER) (test 1.46 K/ L 1.32-3.57 srqo=539) MONOCYTES ABSOLUTE COUNT (BEAKER) (test 0.85 K/ L 0.30-0.82 merb=155) EOSINOPHILS ABSOLUTE COUNT (BEAKER) (test 0.22 K/ L 0.04-0.54 baie=063) BASOPHILS ABSOLUTE COUNT (BEAKER) (test 0.08 K/ L 0.01-0.08 qwlw=576) IMMATURE GRANULOCYTES-RELATIVE PERCENT (BEAKER) 1 % 0-1 (test fifs=1033) POCT-GLUCOSE [id number] 21:15:00 Test Item Value Reference Range Comments POC-GLUCOSE METER (BEAKER) 133 mg/dL 70-110 TESTED AT [address] (test zkgc=7275) [facility] [address] POCT-GLUCOSE [id number] 17:01:00 Test Item Value Reference Range Comments POC-GLUCOSE METER (BEAKER) 136 mg/dL 70-110 TESTED AT [address] (test xoqx=8514) [facility] [address] POCT-GLUCOSE [id number] 12:12:00 Test Item Value Reference Range Comments POC-GLUCOSE METER (BEAKER) 158 mg/dL 70-110 TESTED AT [facility] [address] [facility] (test shsb=2762) [facility] [address] POCT-GLUCOSE [id number] 07:35:00 Test Item Value Reference Range Comments POC-GLUCOSE METER (BEAKER) 132 mg/dL 70-110 TESTED AT [facility] [address] [facility] (test ylhh=5603) [facility] [address] BASIC METABOLIC [id number] 05:58:00 Test Item Value Reference Range Comments SODIUM (BEAKER) (test 135 meq/L 136-145 ssjq=453) POTASSIUM (BEAKER) (test 4.1 meq/L 3.5-5.1 oaas=413) CHLORIDE (BEAKER) (test 104 meq/L 98-107 oenc=243) CO2 (BEAKER) (test 22 meq/L 22-29 dgdg=254) BLOOD UREA NITROGEN 41 mg/dL 7-21 (BEAKER) (test hizi=022) CREATININE (BEAKER) (test 1.60 mg/dL 0.57-1.25 kczg=765) GLUCOSE RANDOM (BEAKER) 119 mg/dL 70-105 (test wobs=838) CALCIUM (BEAKER) (test 8.3 mg/dL 8.4-10.2 kyag=609) EGFR (BEAKER) (test 42 mL/min/1.73 sq m ESTIMATED GFR IS NOT pape=2311) ACCURATE CREATININE CLEARANCE IN PREDICTING GLOMERULAR FILTRATION RATE. ESTIMATED GFR IS NOT APPLICABLE FOR DIALYSIS PATIENTS. CBC W/PLT COUNT & AUTO [id number] 05:13:00 Test Item Value Reference Range Comments WHITE BLOOD CELL COUNT (BEAKER) (test otuk=250) 9.2 K/ L 3.5-10.5 RED BLOOD CELL COUNT (BEAKER) (test aili=858) 3.50 M/ L 4.63-6.08 HEMOGLOBIN (BEAKER) (test mzfm=581) 9.6 GM/DL 13.7-17.5 HEMATOCRIT (BEAKER) (test qsle=024) 32.3 % 40.1-51.0 MEAN CORPUSCULAR VOLUME (BEAKER) (test txdo=793) 92.3 fL 79.0-92.2 MEAN CORPUSCULAR HEMOGLOBIN (BEAKER) (test 27.4 pg 25.7-32.2 stol=900) MEAN CORPUSCULAR HEMOGLOBIN CONC (BEAKER) (test 29.7 GM/DL 32.3-36.5 tzkx=621) RED CELL DISTRIBUTION WIDTH (BEAKER) (test 18.5 % 11.6-14.4 nipt=454) PLATELET COUNT (BEAKER) (test rgtu=416) 447 K/CU MM 150-450 MEAN PLATELET VOLUME (BEAKER) (test djmv=397) 10.0 fL 9.4-12.4 NUCLEATED RED BLOOD CELLS (BEAKER) (test 0 /100 WBC 0-0 mekq=060) NEUTROPHILS RELATIVE PERCENT (BEAKER) (test 72 % ddzd=977) LYMPHOCYTES RELATIVE PERCENT (BEAKER) (test 14 % ccnc=624) MONOCYTES RELATIVE PERCENT (BEAKER) (test 10 % wwbq=365) EOSINOPHILS RELATIVE PERCENT (BEAKER) (test 3 % rcri=576) BASOPHILS RELATIVE PERCENT (BEAKER) (test 1 % vlcw=492) NEUTROPHILS ABSOLUTE COUNT (BEAKER) (test 6.64 K/ L 1.78-5.38 hkss=766) LYMPHOCYTES ABSOLUTE COUNT (BEAKER) (test 1.31 K/ L 1.32-3.57 iwrr=274) MONOCYTES ABSOLUTE COUNT (BEAKER) (test 0.88 K/ L 0.30-0.82 ploi=723) EOSINOPHILS ABSOLUTE COUNT (BEAKER) (test 0.26 K/ L 0.04-0.54 yttr=672) BASOPHILS ABSOLUTE COUNT (BEAKER) (test 0.05 K/ L 0.01-0.08 gnne=196) IMMATURE GRANULOCYTES-RELATIVE PERCENT (BEAKER) 1 % 0-1 (test djsf=2272) POCT-GLUCOSE [id number] 21:04:00 Test Item Value Reference Range Comments POC-GLUCOSE METER (BEAKER) 146 mg/dL 70-110 TESTED AT [address] (test ewlf=2334) [facility] [id number] POCT-GLUCOSE [id number] 17:46:00 Test Item Value Reference Range Comments POC-GLUCOSE METER (BEAKER) 131 mg/dL 70-110 TESTED AT [address] (test cnho=2662) [facility] [address] POCT-GLUCOSE [id number] 12:39:00 Test Item Value Reference Range Comments POC-GLUCOSE METER (BEAKER) 148 mg/dL 70-110 TESTED AT [facility] [address] [facility] (test eapn=7126) [facility] [address] POCT-GLUCOSE [id number] 07:56:00 Test Item Value Reference Range Comments POC-GLUCOSE METER (BEAKER) 128 mg/dL 70-110 TESTED AT [facility] [address] [facility] (test xxan=7998) [facility] [id number] BASIC METABOLIC [id number] 05:23:00 Test Item Value Reference Range Comments SODIUM (BEAKER) (test 136 meq/L 136-145 umik=148) POTASSIUM (BEAKER) (test 4.1 meq/L 3.5-5.1 yekd=097) CHLORIDE (BEAKER) (test 104 meq/L 98-107 cfed=206) CO2 (BEAKER) (test 22 meq/L 22-29 mqtr=520) BLOOD UREA NITROGEN 38 mg/dL 7-21 (BEAKER) (test giby=084) CREATININE (BEAKER) (test 1.66 mg/dL 0.57-1.25 iqia=798) GLUCOSE RANDOM (BEAKER) 114 mg/dL 70-105 (test cmdu=487) CALCIUM (BEAKER) (test 8.3 mg/dL 8.4-10.2 dqtl=622) EGFR (BEAKER) (test 41 mL/min/1.73 sq m ESTIMATED GFR IS NOT uzrg=6270) ACCURATE CREATININE CLEARANCE IN PREDICTING GLOMERULAR FILTRATION RATE. ESTIMATED GFR IS NOT APPLICABLE FOR DIALYSIS PATIENTS. CBC W/PLT COUNT & AUTO [id number] 05:05:00 Test Item Value Reference Range Comments WHITE BLOOD CELL COUNT (BEAKER) (test jgwl=941) 9.7 K/ L 3.5-10.5 RED BLOOD CELL COUNT (BEAKER) (test nvmx=221) 3.44 M/ L 4.63-6.08 HEMOGLOBIN (BEAKER) (test nzil=487) 9.6 GM/DL 13.7-17.5 HEMATOCRIT (BEAKER) (test xbnd=065) 32.2 % 40.1-51.0 MEAN CORPUSCULAR VOLUME (BEAKER) (test whfc=534) 93.6 fL 79.0-92.2 MEAN CORPUSCULAR HEMOGLOBIN (BEAKER) (test 27.9 pg 25.7-32.2 eqld=341) MEAN CORPUSCULAR HEMOGLOBIN CONC (BEAKER) (test 29.8 GM/DL 32.3-36.5 kzgs=928) RED CELL DISTRIBUTION WIDTH (BEAKER) (test 18.3 % 11.6-14.4 jgzx=279) PLATELET COUNT (BEAKER) (test cxla=560) 429 K/CU MM 150-450 MEAN PLATELET VOLUME (BEAKER) (test ceft=148) 9.9 fL 9.4-12.4 NUCLEATED RED BLOOD CELLS (BEAKER) (test 0 /100 WBC 0-0 kzra=215) NEUTROPHILS RELATIVE PERCENT (BEAKER) (test 73 % fkmz=351) LYMPHOCYTES RELATIVE PERCENT (BEAKER) (test 14 % tgtd=301) MONOCYTES RELATIVE PERCENT (BEAKER) (test 10 % mkop=657) EOSINOPHILS RELATIVE PERCENT (BEAKER) (test 3 % rxje=018) BASOPHILS RELATIVE PERCENT (BEAKER) (test 1 % tyqj=423) NEUTROPHILS ABSOLUTE COUNT (BEAKER) (test 7.02 K/ L 1.78-5.38 kylw=860) LYMPHOCYTES ABSOLUTE COUNT (BEAKER) (test 1.33 K/ L 1.32-3.57 optx=945) MONOCYTES ABSOLUTE COUNT (BEAKER) (test 0.92 K/ L 0.30-0.82 wplt=930) EOSINOPHILS ABSOLUTE COUNT (BEAKER) (test 0.25 K/ L 0.04-0.54 ajlb=153) BASOPHILS ABSOLUTE COUNT (BEAKER) (test 0.06 K/ L 0.01-0.08 qabu=886) IMMATURE GRANULOCYTES-RELATIVE PERCENT (BEAKER) 1 % 0-1 (test ikbv=1006) POCT-GLUCOSE [id number] 21:28:00 Test Item Value Reference Range Comments POC-GLUCOSE METER (BEAKER) 125 mg/dL 70-110 TESTED AT [address] (test pkac=5442) [facility] [address] POCT-GLUCOSE [id number] 19:02:00 Test Item Value Reference Range Comments POC-GLUCOSE METER (BEAKER) 129 mg/dL 70-110 TESTED AT [address] (test vrmr=0292) [facility] [address] POCT-GLUCOSE [id number] 14:06:00 Test Item Value Reference Range Comments POC-GLUCOSE METER (BEAKER) 162 mg/dL 70-110 TESTED AT [facility] [address] [facility] (test rwat=8377) [facility] [address] POCT-GLUCOSE [id number] 08:16:00 Test Item Value Reference Range Comments POC-GLUCOSE METER (BEAKER) 140 mg/dL 70-110 TESTED AT [facility] [address] [facility] (test isid=6411) [facility] [address] BASIC METABOLIC [id number] 05:17:00 Test Item Value Reference Range Comments SODIUM (BEAKER) (test 137 meq/L 136-145 pxvy=241) POTASSIUM (BEAKER) (test 3.8 meq/L 3.5-5.1 yygc=474) CHLORIDE (BEAKER) (test 104 meq/L 98-107 udcx=346) CO2 (BEAKER) (test 22 meq/L 22-29 bxrh=129) BLOOD UREA NITROGEN 37 mg/dL 7-21 (BEAKER) (test pgvz=476) CREATININE (BEAKER) (test 1.81 mg/dL 0.57-1.25 fmzo=213) GLUCOSE RANDOM (BEAKER) 118 mg/dL 70-105 (test pzts=044) CALCIUM (BEAKER) (test 8.5 mg/dL 8.4-10.2 nsba=539) EGFR (BEAKER) (test 37 mL/min/1.73 sq m ESTIMATED GFR IS NOT slaw=5959) ACCURATE CREATININE CLEARANCE IN PREDICTING GLOMERULAR FILTRATION RATE. ESTIMATED GFR IS NOT APPLICABLE FOR DIALYSIS PATIENTS. CBC W/PLT COUNT & AUTO [id number] 04:55:00 Test Item Value Reference Range Comments WHITE BLOOD CELL COUNT (BEAKER) (test sjua=380) 10.4 K/ L 3.5-10.5 RED BLOOD CELL COUNT (BEAKER) (test prnd=952) 3.42 M/ L 4.63-6.08 HEMOGLOBIN (BEAKER) (test uzra=099) 9.6 GM/DL 13.7-17.5 HEMATOCRIT (BEAKER) (test ftfc=746) 31.9 % 40.1-51.0 MEAN CORPUSCULAR VOLUME (BEAKER) (test oxqy=197) 93.3 fL 79.0-92.2 MEAN CORPUSCULAR HEMOGLOBIN (BEAKER) (test 28.1 pg 25.7-32.2 frsl=831) MEAN CORPUSCULAR HEMOGLOBIN CONC (BEAKER) (test 30.1 GM/DL 32.3-36.5 ewlw=784) RED CELL DISTRIBUTION WIDTH (BEAKER) (test 18.4 % 11.6-14.4 bwod=967) PLATELET COUNT (BEAKER) (test hhaa=109) 453 K/CU MM 150-450 MEAN PLATELET VOLUME (BEAKER) (test klyv=023) 10.0 fL 9.4-12.4 NUCLEATED RED BLOOD CELLS (BEAKER) (test 0 /100 WBC 0-0 xsjg=027) NEUTROPHILS RELATIVE PERCENT (BEAKER) (test 74 % rcav=273) LYMPHOCYTES RELATIVE PERCENT (BEAKER) (test 13 % vseq=675) MONOCYTES RELATIVE PERCENT (BEAKER) (test 9 % baqc=688) EOSINOPHILS RELATIVE PERCENT (BEAKER) (test 3 % tlwx=015) BASOPHILS RELATIVE PERCENT (BEAKER) (test 0 % wqac=649) NEUTROPHILS ABSOLUTE COUNT (BEAKER) (test 7.63 K/ L 1.78-5.38 qbmt=455) LYMPHOCYTES ABSOLUTE COUNT (BEAKER) (test 1.35 K/ L 1.32-3.57 puwo=245) MONOCYTES ABSOLUTE COUNT (BEAKER) (test 0.97 K/ L 0.30-0.82 qnvj=239) EOSINOPHILS ABSOLUTE COUNT (BEAKER) (test 0.27 K/ L 0.04-0.54 uvdr=621) BASOPHILS ABSOLUTE COUNT (BEAKER) (test 0.04 K/ L 0.01-0.08 jihs=261) IMMATURE GRANULOCYTES-RELATIVE PERCENT (BEAKER) 1 % 0-1 (test jcye=9764) POCT-GLUCOSE [id number] 22:33:00 Test Item Value Reference Range Comments POC-GLUCOSE METER (BEAKER) 165 mg/dL 70-110 TESTED AT [address] (test dksr=6771) [facility] [address] POCT-GLUCOSE [id number] 16:58:00 Test Item Value Reference Range Comments POC-GLUCOSE METER (BEAKER) 126 mg/dL 70-110 TESTED AT [address] (test aylq=5171) [facility] [address] POCT-GLUCOSE [id number] 11:51:00 Test Item Value Reference Range Comments POC-GLUCOSE METER (BEAKER) 209 mg/dL 70-110 TESTED AT [place] [id number] [facility] (test jgzt=7414) [facility] [address] POCT-GLUCOSE [id number] 08:03:00 Test Item Value Reference Range Comments POC-GLUCOSE METER (BEAKER) 150 mg/dL 70-110 TESTED AT [facility] [address] [facility] (test arlm=7430) [facility] [address] [id number] 07:03:00 Test Item Value Reference Range Comments MAGNESIUM (BEAKER) (test 2.1 mg/dL 1.6-2.6 Specimen slightly hemolyzed vhsj=214) BASIC METABOLIC [id number] 07:03:00 Test Item Value Reference Range Comments SODIUM (BEAKER) (test 135 meq/L 136-145 ynih=190) POTASSIUM (BEAKER) (test 4.2 meq/L 3.5-5.1 Specimen slightly zcst=817) hemolyzed CHLORIDE (BEAKER) (test 101 meq/L 98-107 azhb=900) CO2 (BEAKER) (test 24 meq/L 22-29 lptr=264) BLOOD UREA NITROGEN 35 mg/dL 7-21 (BEAKER) (test gbdf=508) CREATININE (BEAKER) (test 1.71 mg/dL 0.57-1.25 Specimen slightly hbps=708) hemolyzed GLUCOSE RANDOM (BEAKER) 125 mg/dL 70-105 (test qahn=600) CALCIUM (BEAKER) (test 8.4 mg/dL 8.4-10.2 lcnk=217) EGFR (BEAKER) (test 39 mL/min/1.73 sq m ESTIMATED GFR IS NOT twjn=0548) ACCURATE CREATININE CLEARANCE IN PREDICTING GLOMERULAR FILTRATION RATE. ESTIMATED GFR IS NOT APPLICABLE FOR DIALYSIS PATIENTS. CBC W/PLT COUNT & AUTO [id number] 06:22:00 Test Item Value Reference Range Comments WHITE BLOOD CELL COUNT (BEAKER) (test sohu=975) 9.8 K/ L 3.5-10.5 RED BLOOD CELL COUNT (BEAKER) (test nwto=999) 3.53 M/ L 4.63-6.08 HEMOGLOBIN (BEAKER) (test dcnc=867) 9.6 GM/DL 13.7-17.5 HEMATOCRIT (BEAKER) (test sujm=388) 32.8 % 40.1-51.0 MEAN CORPUSCULAR VOLUME (BEAKER) (test gkim=043) 92.9 fL 79.0-92.2 MEAN CORPUSCULAR HEMOGLOBIN (BEAKER) (test 27.2 pg 25.7-32.2 ucgm=532) MEAN CORPUSCULAR HEMOGLOBIN CONC (BEAKER) (test 29.3 GM/DL 32.3-36.5 skor=485) RED CELL DISTRIBUTION WIDTH (BEAKER) (test 18.3 % 11.6-14.4 yirn=974) PLATELET COUNT (BEAKER) (test utxl=772) 482 K/CU MM 150-450 MEAN PLATELET VOLUME (BEAKER) (test aygh=784) 9.9 fL 9.4-12.4 NUCLEATED RED BLOOD CELLS (BEAKER) (test 0 /100 WBC 0-0 obqu=692) NEUTROPHILS RELATIVE PERCENT (BEAKER) (test 72 % rvsc=147) LYMPHOCYTES RELATIVE PERCENT (BEAKER) (test 13 % zuxt=014) MONOCYTES RELATIVE PERCENT (BEAKER) (test 10 % zgba=054) EOSINOPHILS RELATIVE PERCENT (BEAKER) (test 3 % likd=625) BASOPHILS RELATIVE PERCENT (BEAKER) (test 1 % jbru=860) NEUTROPHILS ABSOLUTE COUNT (BEAKER) (test 6.97 K/ L 1.78-5.38 hdza=542) LYMPHOCYTES ABSOLUTE COUNT (BEAKER) (test 1.31 K/ L 1.32-3.57 hwej=864) MONOCYTES ABSOLUTE COUNT (BEAKER) (test 0.97 K/ L 0.30-0.82 mnjb=143) EOSINOPHILS ABSOLUTE COUNT (BEAKER) (test 0.31 K/ L 0.04-0.54 jvoc=778) BASOPHILS ABSOLUTE COUNT (BEAKER) (test 0.06 K/ L 0.01-0.08 tcqb=438) IMMATURE GRANULOCYTES-RELATIVE PERCENT (BEAKER) 1 % 0-1 (test ghvf=1842) ANAEROBIC [id number] 03:41:00 Test Item Value Reference Range Comments CULTURE (BEAKER) (test <1+ Anaerobic gram positive agps=4338) bacilliNon-viable for identification ANAEROBIC [id number] 03:38:00 Test Item Value Reference Range Comments CULTURE (BEAKER) (test yzba=3641) 2+ Bacteroides fragilis group POCT-GLUCOSE [id number] 22:50:00 Test Item Value Reference Range Comments POC-GLUCOSE METER (BEAKER) 151 mg/dL 70-110 TESTED AT [address] (test jmvg=7668) [facility] [address] POCT-GLUCOSE [id number] 17:47:00 Test Item Value Reference Range Comments POC-GLUCOSE METER (BEAKER) 165 mg/dL 70-110 TESTED AT [address] (test ifrf=3375) [facility] [address] POCT-GLUCOSE [id number] 12:57:00 Test Item Value Reference Range Comments POC-GLUCOSE METER (BEAKER) 122 mg/dL 70-110 TESTED AT [address] (test iacd=6395) [facility] [address] POCT-GLUCOSE [id number] 09:14:00 Test Item Value Reference Range Comments POC-GLUCOSE METER (BEAKER) 164 mg/dL 70-110 TESTED AT [address] (test gvba=8491) [facility] [address] BASIC METABOLIC [id number] 04:07:00 Test Item Value Reference Range Comments SODIUM (BEAKER) (test 135 meq/L 136-145 rqxv=348) POTASSIUM (BEAKER) (test 3.7 meq/L 3.5-5.1 nnma=417) CHLORIDE (BEAKER) (test 101 meq/L 98-107 asje=667) CO2 (BEAKER) (test 24 meq/L 22-29 mwhy=293) BLOOD UREA NITROGEN 36 mg/dL 7-21 (BEAKER) (test ehyy=996) CREATININE (BEAKER) (test 1.68 mg/dL 0.57-1.25 vqhd=904) GLUCOSE RANDOM (BEAKER) 112 mg/dL 70-105 (test twrg=675) CALCIUM (BEAKER) (test 8.2 mg/dL 8.4-10.2 mahe=109) EGFR (BEAKER) (test 40 mL/min/1.73 sq m ESTIMATED GFR IS NOT vkfp=3554) ACCURATE CREATININE CLEARANCE IN PREDICTING GLOMERULAR FILTRATION RATE. ESTIMATED GFR IS NOT APPLICABLE FOR DIALYSIS PATIENTS. CBC W/PLT COUNT & AUTO [id number] 03:48:00 Test Item Value Reference Range Comments WHITE BLOOD CELL COUNT (BEAKER) (test vdzv=937) 10.4 K/ L 3.5-10.5 RED BLOOD CELL COUNT (BEAKER) (test mtbz=567) 3.37 M/ L 4.63-6.08 HEMOGLOBIN (BEAKER) (test lxua=666) 9.4 GM/DL 13.7-17.5 HEMATOCRIT (BEAKER) (test dijx=175) 31.1 % 40.1-51.0 MEAN CORPUSCULAR VOLUME (BEAKER) (test hrgm=124) 92.3 fL 79.0-92.2 MEAN CORPUSCULAR HEMOGLOBIN (BEAKER) (test 27.9 pg 25.7-32.2 monl=739) MEAN CORPUSCULAR HEMOGLOBIN CONC (BEAKER) (test 30.2 GM/DL 32.3-36.5 kvjq=676) RED CELL DISTRIBUTION WIDTH (BEAKER) (test 17.9 % 11.6-14.4 gowp=782) PLATELET COUNT (BEAKER) (test lyot=243) 461 K/CU MM 150-450 MEAN PLATELET VOLUME (BEAKER) (test ewoi=814) 9.5 fL 9.4-12.4 NUCLEATED RED BLOOD CELLS (BEAKER) (test 0 /100 WBC 0-0 yztd=381) NEUTROPHILS RELATIVE PERCENT (BEAKER) (test 72 % mymh=709) LYMPHOCYTES RELATIVE PERCENT (BEAKER) (test 13 % rzvf=922) MONOCYTES RELATIVE PERCENT (BEAKER) (test 10 % tdkf=033) EOSINOPHILS RELATIVE PERCENT (BEAKER) (test 3 % gwed=567) BASOPHILS RELATIVE PERCENT (BEAKER) (test 1 % nkch=882) NEUTROPHILS ABSOLUTE COUNT (BEAKER) (test 7.51 K/ L 1.78-5.38 zvfr=646) LYMPHOCYTES ABSOLUTE COUNT (BEAKER) (test 1.35 K/ L 1.32-3.57 jfhw=801) MONOCYTES ABSOLUTE COUNT (BEAKER) (test 1.03 K/ L 0.30-0.82 dfgz=542) EOSINOPHILS ABSOLUTE COUNT (BEAKER) (test 0.32 K/ L 0.04-0.54 dzdq=604) BASOPHILS ABSOLUTE COUNT (BEAKER) (test 0.05 K/ L 0.01-0.08 mcyb=036) IMMATURE GRANULOCYTES-RELATIVE PERCENT (BEAKER) 1 % 0-1 (test opqd=7228) BLOOD [id number] 00:00:00 Test Item Value Reference Range Comments CULTURE (BEAKER) (test utgl=2428) No growth in 5 days BLOOD [id number] 00:00:00 Test Item Value Reference Range Comments CULTURE (BEAKER) (test jwgg=8628) No growth in 5 days POCT-GLUCOSE [id number] 21:35:00 Test Item Value Reference Range Comments POC-GLUCOSE METER (BEAKER) 135 mg/dL 70-110 TESTED AT [address] (test aoni=8358) [facility] [address] POCT-GLUCOSE [id number] 17:27:00 Test Item Value Reference Range Comments POC-GLUCOSE METER (BEAKER) 192 mg/dL 70-110 TESTED AT [address] (test zahe=8065) [place] [id number] POCT-GLUCOSE [id number] 12:19:00 Test Item Value Reference Range Comments POC-GLUCOSE METER (BEAKER) 200 mg/dL 70-110 TESTED AT [address] (test cdqu=8464) [place] [address] RAD, CHEST, 1 VIEW, NON [id number] 11:22:00Reason for exam:->shortness of breathFINAL REPORT Comparison: 09/06/2017 TECHNIQUE: Single view of the chest FINDINGS: Scattered atelectasis and/or scarring. There may be small left pleural effusion with adjacent airspace disease. Cardiac silhouette is prominent. IMPRESSION:. No significant interval change. Signed: Emerson Palacios MDReport Verified Date/Time: 09/07/2017 11:22:01 Reading Location: [address] Transitional Reading Room CBC W/PLT COUNT & AUTO [id number] 10:35:00 Test Item Value Reference Range Comments WHITE BLOOD CELL COUNT (BEAKER) (test ovke=703) 12.5 K/ L 3.5-10.5 RED BLOOD CELL COUNT (BEAKER) (test saui=545) 3.71 M/ L 4.63-6.08 HEMOGLOBIN (BEAKER) (test dufa=037) 10.5 GM/DL 13.7-17.5 HEMATOCRIT (BEAKER) (test sxtm=438) 34.8 % 40.1-51.0 MEAN CORPUSCULAR VOLUME (BEAKER) (test zeyz=389) 93.8 fL 79.0-92.2 MEAN CORPUSCULAR HEMOGLOBIN (BEAKER) (test 28.3 pg 25.7-32.2 aqgv=342) MEAN CORPUSCULAR HEMOGLOBIN CONC (BEAKER) (test 30.2 GM/DL 32.3-36.5 zznw=368) RED CELL DISTRIBUTION WIDTH (BEAKER) (test 18.2 % 11.6-14.4 kdqp=788) PLATELET COUNT (BEAKER) (test ierg=661) 497 K/CU MM 150-450 MEAN PLATELET VOLUME (BEAKER) (test vuit=489) 9.6 fL 9.4-12.4 NUCLEATED RED BLOOD CELLS (BEAKER) (test 0 /100 WBC 0-0 yfmb=856) NEUTROPHILS RELATIVE PERCENT (BEAKER) (test 79 % dxoq=915) LYMPHOCYTES RELATIVE PERCENT (BEAKER) (test 9 % njdz=231) MONOCYTES RELATIVE PERCENT (BEAKER) (test 7 % tjyl=238) EOSINOPHILS RELATIVE PERCENT (BEAKER) (test 2 % noho=395) BASOPHILS RELATIVE PERCENT (BEAKER) (test 0 % vefd=525) NEUTROPHILS ABSOLUTE COUNT (BEAKER) (test 9.94 K/ L 1.78-5.38 tskh=305) LYMPHOCYTES ABSOLUTE COUNT (BEAKER) (test 1.16 K/ L 1.32-3.57 zizb=986) MONOCYTES ABSOLUTE COUNT (BEAKER) (test 0.93 K/ L 0.30-0.82 dwee=005) EOSINOPHILS ABSOLUTE COUNT (BEAKER) (test 0.26 K/ L 0.04-0.54 yabs=191) BASOPHILS ABSOLUTE COUNT (BEAKER) (test 0.05 K/ L 0.01-0.08 ipub=599) IMMATURE GRANULOCYTES-RELATIVE PERCENT (BEAKER) 1 % 0-1 (test mall=8907) POCT-GLUCOSE [id number] 07:25:00 Test Item Value Reference Range Comments POC-GLUCOSE METER (BEAKER) 139 mg/dL 70-110 TESTED AT [facility] [address] [facility] (test ensl=9991) [facility] [address] [id number] 04:19:00 Test Item Value Reference Range Comments MAGNESIUM (BEAKER) (test 2.0 mg/dL 1.6-2.6 Specimen slightly hemolyzed znuq=985) [id number] 04:19:00 Test Item Value Reference Range Comments PHOSPHORUS (BEAKER) (test 3.7 mg/dL 2.3-4.7 Specimen slightly hemolyzed jkfk=872) BASIC METABOLIC [id number] 04:19:00 Test Item Value Reference Range Comments SODIUM (BEAKER) (test 134 meq/L 136-145 gvfv=470) POTASSIUM (BEAKER) (test 4.5 meq/L 3.5-5.1 Specimen slightly owmu=962) hemolyzed CHLORIDE (BEAKER) (test 102 meq/L 98-107 gkfw=339) CO2 (BEAKER) (test 16 meq/L 22-29 dmzm=027) BLOOD UREA NITROGEN 40 mg/dL 7-21 (BEAKER) (test zuhf=809) CREATININE (BEAKER) (test 1.94 mg/dL 0.57-1.25 Specimen slightly vxfn=288) hemolyzed GLUCOSE RANDOM (BEAKER) 107 mg/dL 70-105 (test urwz=714) CALCIUM (BEAKER) (test 8.5 mg/dL 8.4-10.2 jkvl=748) EGFR (BEAKER) (test 34 mL/min/1.73 sq m ESTIMATED GFR IS NOT ptjr=8335) ACCURATE CREATININE CLEARANCE IN PREDICTING GLOMERULAR FILTRATION RATE. ESTIMATED GFR IS NOT APPLICABLE FOR DIALYSIS PATIENTS. POCT-GLUCOSE [id number] 21:41:00 Test Item Value Reference Range Comments POC-GLUCOSE METER (BEAKER) 148 mg/dL 70-110 TESTED AT [address] (test ejvp=4595) [place] [id number] VANCOMYCIN LEVEL, [id number] 13:28:00 Test Item Value Reference Range Comments VANCOMYCIN RANDOM (BEAKER) (test lylu=234) 19.2 ug/mL Reference Range: No NormalsPOCT-GLUCOSE [id number] 12:59:00 Test Item Value Reference Range Comments POC-GLUCOSE METER (BEAKER) 129 mg/dL 70-110 TESTED AT [place] [id number] [facility] (test hlol=9984) [place] [id number] RAD, CHEST, 1 VIEW, NON [id number] 08:26:00Reason for exam:->shortness of breathFINAL REPORT HISTORY [...] Verified Date/Time : 09/06/2017 08:26:23 Reading Location: [facility] [id number] Transitional Reading Room POCT- GLUCOSE [id number] 08:17:00 Test Item Value Reference Range Comments POC-GLUCOSE METER (BEAKER) 124 mg/dL 70-110 TESTED AT [facility] [address] [facility] (test aong=1962) [facility] [address] CBC W/PLT COUNT & AUTO [id number] 05:36:00 Test Item Value Reference Range Comments WHITE BLOOD CELL COUNT (BEAKER) (test rdtf=940) 10.3 K/ L 3.5-10.5 RED BLOOD CELL COUNT (BEAKER) (test bpqa=593) 3.41 M/ L 4.63-6.08 HEMOGLOBIN (BEAKER) (test fqwn=627) 9.4 GM/DL 13.7-17.5 HEMATOCRIT (BEAKER) (test exdb=973) 31.5 % 40.1-51.0 MEAN CORPUSCULAR VOLUME (BEAKER) (test vuik=452) 92.4 fL 79.0-92.2 MEAN CORPUSCULAR HEMOGLOBIN (BEAKER) (test 27.6 pg 25.7-32.2 said=466) MEAN CORPUSCULAR HEMOGLOBIN CONC (BEAKER) (test 29.8 GM/DL 32.3-36.5 qlwl=272) RED CELL DISTRIBUTION WIDTH (BEAKER) (test 18.5 % 11.6-14.4 tsyw=176) PLATELET COUNT (BEAKER) (test trbu=714) 511 K/CU MM 150-450 MEAN PLATELET VOLUME (BEAKER) (test ppug=436) 9.9 fL 9.4-12.4 NUCLEATED RED BLOOD CELLS (BEAKER) (test 0 /100 WBC 0-0 rkpb=724) NEUTROPHILS RELATIVE PERCENT (BEAKER) (test 73 % poej=765) LYMPHOCYTES RELATIVE PERCENT (BEAKER) (test 12 % dhji=107) MONOCYTES RELATIVE PERCENT (BEAKER) (test 10 % ybcx=392) EOSINOPHILS RELATIVE PERCENT (BEAKER) (test 2 % swft=187) BASOPHILS RELATIVE PERCENT (BEAKER) (test 1 % cuxe=475) NEUTROPHILS ABSOLUTE COUNT (BEAKER) (test 7.50 K/ L 1.78-5.38 fhpx=653) LYMPHOCYTES ABSOLUTE COUNT (BEAKER) (test 1.20 K/ L 1.32-3.57 iqog=976) MONOCYTES ABSOLUTE COUNT (BEAKER) (test 1.04 K/ L 0.30-0.82 kkwq=869) EOSINOPHILS ABSOLUTE COUNT (BEAKER) (test 0.24 K/ L 0.04-0.54 ksfu=284) BASOPHILS ABSOLUTE COUNT (BEAKER) (test 0.05 K/ L 0.01-0.08 zmbr=996) IMMATURE GRANULOCYTES-RELATIVE PERCENT (BEAKER) 3 % 0-1 (test wqni=3762) [id number] 05:28:00 Test Item Value Reference Range Comments PHOSPHORUS (BEAKER) (test abwm=677) 3.4 mg/dL 2.3-4.7 [id number] 05:28:00 Test Item Value Reference Range Comments MAGNESIUM (BEAKER) (test gdcv=650) 2.0 mg/dL 1.6-2.6 BASIC METABOLIC [id number] 05:28:00 Test Item Value Reference Range Comments SODIUM (BEAKER) (test 137 meq/L 136-145 sdfj=717) POTASSIUM (BEAKER) (test 4.0 meq/L 3.5-5.1 bubb=872) CHLORIDE (BEAKER) (test 97 meq/L 98-107 symr=507) CO2 (BEAKER) (test 28 meq/L 22-29 ftox=525) BLOOD UREA NITROGEN 37 mg/dL 7-21 (BEAKER) (test lzuv=333) CREATININE (BEAKER) (test 2.02 mg/dL 0.57-1.25 rtul=768) GLUCOSE RANDOM (BEAKER) 117 mg/dL 70-105 (test qtfl=779) CALCIUM (BEAKER) (test 8.4 mg/dL 8.4-10.2 aojo=272) EGFR (BEAKER) (test 32 mL/min/1.73 sq m ESTIMATED GFR IS NOT vqen=9008) ACCURATE CREATININE CLEARANCE IN PREDICTING GLOMERULAR FILTRATION RATE. ESTIMATED GFR IS NOT APPLICABLE FOR DIALYSIS PATIENTS. [id number] 22:02:00 Test Item Value Reference Range Comments MAGNESIUM (BEAKER) (test drao=329) 2.1 mg/dL 1.6-2.6 BASIC METABOLIC [id number] 22:02:00 Test Item Value Reference Range Comments SODIUM (BEAKER) (test 136 meq/L 136-145 riwt=141) POTASSIUM (BEAKER) (test 4.3 meq/L 3.5-5.1 mmyg=572) CHLORIDE (BEAKER) (test 99 meq/L 98-107 zusf=729) CO2 (BEAKER) (test 25 meq/L 22-29 gqsl=356) BLOOD UREA NITROGEN 36 mg/dL 7-21 (BEAKER) (test tfsl=575) CREATININE (BEAKER) (test 1.95 mg/dL 0.57-1.25 ychu=501) GLUCOSE RANDOM (BEAKER) 133 mg/dL 70-105 (test aaft=140) CALCIUM (BEAKER) (test 8.3 mg/dL 8.4-10.2 gobt=059) EGFR (BEAKER) (test 34 mL/min/1.73 sq m ESTIMATED GFR IS NOT igbk=1626) ACCURATE CREATININE CLEARANCE IN PREDICTING GLOMERULAR FILTRATION RATE. ESTIMATED GFR IS NOT APPLICABLE FOR DIALYSIS PATIENTS. POCT-GLUCOSE [id number] 21:42:00 Test Item Value Reference Range Comments POC-GLUCOSE METER (BEAKER) 125 mg/dL 70-110 TESTED AT [address] (test mybb=5151) [facility] [address] POCT-GLUCOSE [id number] 18:41:00 Test Item Value Reference Range Comments POC-GLUCOSE METER (BEAKER) 150 mg/dL 70-110 TESTED AT [address] (test hjso=4000) [facility] [address] POCT-GLUCOSE [id number] 17:53:00 Test Item Value Reference Range Comments POC-GLUCOSE METER (BEAKER) 127 mg/dL 70-110 TESTED AT [place] [address] [facility] (test zsog=1376) [facility] [address] VANCOMYCIN LEVEL, [id number] 15:24:00 Test Item Value Reference Range Comments VANCOMYCIN TROUGH (BEAKER) (test inim=324) 27.4 ug/mL 10.0-20.0 Please draw trough 30 minutes prior to vancomycin dose on 09/05.BASIC METABOLIC [id number] 12:57:00 Test Item Value Reference Range Comments SODIUM (BEAKER) (test 136 meq/L 136-145 mmeg=270) POTASSIUM (BEAKER) (test 3.9 meq/L 3.5-5.1 msus=786) CHLORIDE (BEAKER) (test 100 meq/L 98-107 rinb=772) CO2 (BEAKER) (test 24 meq/L 22-29 voty=385) BLOOD UREA NITROGEN 34 mg/dL 7-21 (BEAKER) (test zvpe=026) CREATININE (BEAKER) (test 2.22 mg/dL 0.57-1.25 lvom=871) GLUCOSE RANDOM (BEAKER) 123 mg/dL 70-105 (test clgv=978) CALCIUM (BEAKER) (test 8.4 mg/dL 8.4-10.2 rnkq=438) EGFR (BEAKER) (test 29 mL/min/1.73 sq m ESTIMATED GFR IS NOT etsj=7878) ACCURATE CREATININE CLEARANCE IN PREDICTING GLOMERULAR FILTRATION RATE. ESTIMATED GFR IS NOT APPLICABLE FOR DIALYSIS PATIENTS. [id number] 12:46:00 Test Item Value Reference Range Comments MAGNESIUM (BEAKER) (test qrpx=271) 2.1 mg/dL 1.6-2.6 POCT-GLUCOSE [id number] 09:45:00 Test Item Value Reference Range Comments POC-GLUCOSE METER (BEAKER) 134 mg/dL 70-110 TESTED AT [address] (test jisg=3537) [facility] [address] RAD, CHEST, 1 VIEW, NON [id number] 08:44:00Reason for exam:->shortness of breathFINAL REPORT Chest [...] MDReport Verified Date/Time: 09/05/2017 08:44:03 Reading Location: [facility] Radiology Reading Room URINE [id number] 08:13:00 Test Item Value Reference Range Comments CULTURE (BEAKER) (test lflx=5320) No growth GRAM STAIN RESULT (BEAKER) (test 1+ WBCs gajg=3408) GRAM STAIN RESULT (BEAKER) (test No organisms seen erfq=56661) SURGICALLY OBTAINED CULTURE + GRAM [id number] 08:04:00 Test Item Value Reference Range Comments CULTURE (BEAKER) (test dnoy=0262) No growth GRAM STAIN RESULT (BEAKER) (test <1+ WBCs pmgd=2333) GRAM STAIN RESULT (BEAKER) (test No organisms seen wemg=12081) SURGICALLY OBTAINED CULTURE + GRAM [id number] 08:03:00 Test Item Value Reference Range Comments CULTURE (BEAKER) (test zggz=4546) No growth GRAM STAIN RESULT (BEAKER) (test No WBCs ouwe=6429) GRAM STAIN RESULT (BEAKER) (test No organisms seen aezu=48658) CBC WITH PLATELET COUNT + MANUAL [id number] 04:36:00 Test Item Value Reference Range Comments WHITE BLOOD CELL COUNT (BEAKER) (test ouvp=946) 10.1 K/ L 3.5-10.5 RED BLOOD CELL COUNT (BEAKER) (test xpaw=847) 3.10 M/ L 4.63-6.08 HEMOGLOBIN (BEAKER) (test nagl=491) 8.6 GM/DL 13.7-17.5 HEMATOCRIT (BEAKER) (test nywp=419) 27.8 % 40.1-51.0 MEAN CORPUSCULAR VOLUME (BEAKER) (test uatd=012) 89.7 fL 79.0-92.2 MEAN CORPUSCULAR HEMOGLOBIN (BEAKER) (test 27.7 pg 25.7-32.2 qgsh=845) MEAN CORPUSCULAR HEMOGLOBIN CONC (BEAKER) (test 30.9 GM/DL 32.3-36.5 xfhy=551) RED CELL DISTRIBUTION WIDTH (BEAKER) (test 17.8 % 11.6-14.4 wddl=641) PLATELET COUNT (BEAKER) (test qsgt=460) 439 K/CU MM 150-450 MEAN PLATELET VOLUME (BEAKER) (test aysc=987) 9.2 fL 9.4-12.4 NUCLEATED RED BLOOD CELLS (BEAKER) (test 1 /100 WBC 0-0 zrac=504) IMMATURE GRANULOCYTES-RELATIVE PERCENT (BEAKER) 3 % 0-1 (test gmpn=5049) BASIC METABOLIC [id number] 03:37:00 Test Item Value Reference Range Comments SODIUM (BEAKER) (test 136 meq/L 136-145 ngdb=516) POTASSIUM (BEAKER) (test 3.8 meq/L 3.5-5.1 ifjs=719) CHLORIDE (BEAKER) (test 100 meq/L 98-107 pbsy=092) CO2 (BEAKER) (test 24 meq/L 22-29 lzzx=948) BLOOD UREA NITROGEN 35 mg/dL 7-21 (BEAKER) (test pjcy=211) CREATININE (BEAKER) (test 2.30 mg/dL 0.57-1.25 uxlg=058) GLUCOSE RANDOM (BEAKER) 118 mg/dL 70-105 (test drbd=141) CALCIUM (BEAKER) (test 8.1 mg/dL 8.4-10.2 gjyr=211) EGFR (BEAKER) (test 28 mL/min/1.73 sq m ESTIMATED GFR IS NOT oxzs=5471) ACCURATE CREATININE CLEARANCE IN PREDICTING GLOMERULAR FILTRATION RATE. ESTIMATED GFR IS NOT APPLICABLE FOR DIALYSIS PATIENTS. [id number] 03:31:00 Test Item Value Reference Range Comments PHOSPHORUS (BEAKER) (test ulop=280) 3.6 mg/dL 2.3-4.7 [id number] 03:31:00 Test Item Value Reference Range Comments MAGNESIUM (BEAKER) (test ofsf=938) 2.3 mg/dL 1.6-2.6 CBC W/PLT COUNT & AUTO [id number] 03:20:00 Test Item Value Reference Range Comments WHITE BLOOD CELL COUNT (BEAKER) (test skrt=967) 10.1 K/ L 3.5-10.5 RED BLOOD CELL COUNT (BEAKER) (test ypcp=775) 3.10 M/ L 4.63-6.08 HEMOGLOBIN (BEAKER) (test nxkx=109) 8.6 GM/DL 13.7-17.5 HEMATOCRIT (BEAKER) (test lznq=526) 27.8 % 40.1-51.0 MEAN CORPUSCULAR VOLUME (BEAKER) (test xmrf=373) 89.7 fL 79.0-92.2 MEAN CORPUSCULAR HEMOGLOBIN (BEAKER) (test 27.7 pg 25.7-32.2 whwp=651) MEAN CORPUSCULAR HEMOGLOBIN CONC (BEAKER) (test 30.9 GM/DL 32.3-36.5 aeat=779) RED CELL DISTRIBUTION WIDTH (BEAKER) (test 17.8 % 11.6-14.4 jfdn=123) PLATELET COUNT (BEAKER) (test urve=136) 439 K/CU MM 150-450 MEAN PLATELET VOLUME (BEAKER) (test nbnn=420) 9.2 fL 9.4-12.4 NUCLEATED RED BLOOD CELLS (BEAKER) (test 1 /100 WBC 0-0 wyxy=292) IMMATURE GRANULOCYTES-RELATIVE PERCENT (BEAKER) 3 % 0-1 (test lbii=0600) BASIC METABOLIC [id number] 22:33:00 Test Item Value Reference Range Comments SODIUM (BEAKER) (test 135 meq/L 136-145 ildi=290) POTASSIUM (BEAKER) (test 3.8 meq/L 3.5-5.1 bsvi=623) CHLORIDE (BEAKER) (test 101 meq/L 98-107 kgzf=429) CO2 (BEAKER) (test 24 meq/L 22-29 iais=961) BLOOD UREA NITROGEN 36 mg/dL 7-21 (BEAKER) (test flhr=665) CREATININE (BEAKER) (test 2.26 mg/dL 0.57-1.25 jscs=175) GLUCOSE RANDOM (BEAKER) 119 mg/dL 70-105 (test hztt=956) CALCIUM (BEAKER) (test 7.9 mg/dL 8.4-10.2 qawm=154) EGFR (BEAKER) (test 29 mL/min/1.73 sq m ESTIMATED GFR IS NOT lzbj=0882) ACCURATE CREATININE CLEARANCE IN PREDICTING GLOMERULAR FILTRATION RATE. ESTIMATED GFR IS NOT APPLICABLE FOR DIALYSIS PATIENTS. [id number] 22:28:00 Test Item Value Reference Range Comments MAGNESIUM (BEAKER) (test worr=019) 1.8 mg/dL 1.6-2.6 POCT-GLUCOSE [id number] 21:08:00 Test Item Value Reference Range Comments POC-GLUCOSE METER (BEAKER) 111 mg/dL 70-110 TESTED AT [address] (test yzuo=1999) [facility] [id number] CBC (HEMOGRAM ONLY)2017-09-04 19:09:00 Test Item Value Reference Range Comments WHITE BLOOD CELL COUNT (BEAKER) (test lhrs=160) 9.3 K/ L 3.5-10.5 RED BLOOD CELL COUNT (BEAKER) (test fmyf=801) 3.02 M/ L 4.63-6.08 HEMOGLOBIN (BEAKER) (test depi=703) 8.5 GM/DL 13.7-17.5 HEMATOCRIT (BEAKER) (test uzhz=538) 27.2 % 40.1-51.0 MEAN CORPUSCULAR VOLUME (BEAKER) (test xerz=208) 90.1 fL 79.0-92.2 MEAN CORPUSCULAR HEMOGLOBIN (BEAKER) (test 28.1 pg 25.7-32.2 pghg=839) MEAN CORPUSCULAR HEMOGLOBIN CONC (BEAKER) (test 31.3 GM/DL 32.3-36.5 zmed=909) RED CELL DISTRIBUTION WIDTH (BEAKER) (test 17.8 % 11.6-14.4 xlli=600) PLATELET COUNT (BEAKER) (test oqzk=884) 463 K/CU MM 150-450 MEAN PLATELET VOLUME (BEAKER) (test bxxi=709) 9.3 fL 9.4-12.4 NUCLEATED RED BLOOD CELLS (BEAKER) (test 0 /100 WBC 0-0 rzsr=201) POCT-GLUCOSE [id number] 17:44:00 Test Item Value Reference Range Comments POC-GLUCOSE METER (BEAKER) 139 mg/dL 70-110 TESTED AT [address] (test amsf=8291) [place] [id number] POCT-GLUCOSE [id number] 11:39:00 Test Item Value Reference Range Comments POC-GLUCOSE METER (BEAKER) 142 mg/dL 70-110 TESTED AT [facility] [address] (test bboz=8688) [facility] [address] BASIC METABOLIC [id number] 10:56:00 Test Item Value Reference Range Comments SODIUM (BEAKER) (test 135 meq/L 136-145 iegg=271) POTASSIUM (BEAKER) (test 3.9 meq/L 3.5-5.1 jedq=993) CHLORIDE (BEAKER) (test 102 meq/L 98-107 uexv=464) CO2 (BEAKER) (test 24 meq/L 22-29 cqyq=818) BLOOD UREA NITROGEN 37 mg/dL 7-21 (BEAKER) (test dkxd=515) CREATININE (BEAKER) (test 2.53 mg/dL 0.57-1.25 zdps=327) GLUCOSE RANDOM (BEAKER) 127 mg/dL 70-105 (test pbbq=220) CALCIUM (BEAKER) (test 7.8 mg/dL 8.4-10.2 vhmo=487) EGFR (BEAKER) (test 25 mL/min/1.73 sq m ESTIMATED GFR IS NOT wxsk=6068) ACCURATE CREATININE CLEARANCE IN PREDICTING GLOMERULAR FILTRATION RATE. ESTIMATED GFR IS NOT APPLICABLE FOR DIALYSIS PATIENTS. B-TYPE NATRIURETIC FACTOR (BNP)2017-09-04 10:54:00 Test Item Value Reference Range Comments B-TYPE NATRIURETIC PEPTIDE (BEAKER) (test 360 pg/mL 0-100 jgef=113) [id number] 10:46:00 Test Item Value Reference Range Comments PHOSPHORUS (BEAKER) (test nnyc=351) 4.1 mg/dL 2.3-4.7 [id number] 10:46:00 Test Item Value Reference Range Comments MAGNESIUM (BEAKER) (test ywhd=542) 2.1 mg/dL 1.6-2.6 RAD, CHEST, 1 VIEW, NON [id number] 08:32:00Reason for exam:->shortness of breathShould this be [...] MDReport Verified Date/Time: 09/04/2017 08:32:13 Reading Location: [facility] Radiology Reading Room POCT-GLUCOSE [id number] 08: 02:00 Test Item Value Reference Range Comments POC-GLUCOSE METER (BEAKER) 144 mg/dL 70-110 TESTED AT [facility] [address] [facility] (test oeav=9336) [facility] [address] BASIC METABOLIC [id number] 04:29:00 Test Item Value Reference Range Comments SODIUM (BEAKER) (test 133 meq/L 136-145 itkf=160) POTASSIUM (BEAKER) (test 3.7 meq/L 3.5-5.1 tswm=601) CHLORIDE (BEAKER) (test 101 meq/L 98-107 gxaq=311) CO2 (BEAKER) (test 22 meq/L 22-29 wkne=183) BLOOD UREA NITROGEN 37 mg/dL 7-21 (BEAKER) (test zgaa=094) CREATININE (BEAKER) (test 2.65 mg/dL 0.57-1.25 imit=203) GLUCOSE RANDOM (BEAKER) 136 mg/dL 70-105 (test ltiw=034) CALCIUM (BEAKER) (test 7.6 mg/dL 8.4-10.2 ymep=948) EGFR (BEAKER) (test 24 mL/min/1.73 sq m ESTIMATED GFR IS NOT mptl=7541) ACCURATE CREATININE CLEARANCE IN PREDICTING GLOMERULAR FILTRATION RATE. ESTIMATED GFR IS NOT APPLICABLE FOR DIALYSIS PATIENTS. [id number] 04:25:00 Test Item Value Reference Range Comments PHOSPHORUS (BEAKER) (test hrun=693) 4.2 mg/dL 2.3-4.7 [id number] 04:25:00 Test Item Value Reference Range Comments MAGNESIUM (BEAKER) (test nfsz=258) 2.0 mg/dL 1.6-2.6 CBC W/PLT COUNT & AUTO [id number] 03:30:00 Test Item Value Reference Range Comments WHITE BLOOD CELL COUNT (BEAKER) (test irfw=772) 9.1 K/ L 3.5-10.5 RED BLOOD CELL COUNT (BEAKER) (test lsyu=825) 2.54 M/ L 4.63-6.08 HEMOGLOBIN (BEAKER) (test axdq=461) 7.0 GM/DL 13.7-17.5 HEMATOCRIT (BEAKER) (test izes=996) 23.4 % 40.1-51.0 MEAN CORPUSCULAR VOLUME (BEAKER) (test spnq=919) 92.1 fL 79.0-92.2 MEAN CORPUSCULAR HEMOGLOBIN (BEAKER) (test 27.6 pg 25.7-32.2 cmad=193) MEAN CORPUSCULAR HEMOGLOBIN CONC (BEAKER) (test 29.9 GM/DL 32.3-36.5 bcqa=426) RED CELL DISTRIBUTION WIDTH (BEAKER) (test 17.2 % 11.6-14.4 ffhd=071) PLATELET COUNT (BEAKER) (test jmnn=034) 407 K/CU MM 150-450 MEAN PLATELET VOLUME (BEAKER) (test vkzi=937) 9.2 fL 9.4-12.4 NUCLEATED RED BLOOD CELLS (BEAKER) (test 0 /100 WBC 0-0 yzfa=773) NEUTROPHILS RELATIVE PERCENT (BEAKER) (test 75 % rfdt=549) LYMPHOCYTES RELATIVE PERCENT (BEAKER) (test 10 % ydkb=464) MONOCYTES RELATIVE PERCENT (BEAKER) (test 10 % ryfb=172) EOSINOPHILS RELATIVE PERCENT (BEAKER) (test 1 % dcqf=673) BASOPHILS RELATIVE PERCENT (BEAKER) (test 0 % iowb=731) NEUTROPHILS ABSOLUTE COUNT (BEAKER) (test 6.78 K/ L 1.78-5.38 otzt=174) LYMPHOCYTES ABSOLUTE COUNT (BEAKER) (test 0.92 K/ L 1.32-3.57 ndnx=432) MONOCYTES ABSOLUTE COUNT (BEAKER) (test 0.89 K/ L 0.30-0.82 bqvt=227) EOSINOPHILS ABSOLUTE COUNT (BEAKER) (test 0.13 K/ L 0.04-0.54 eqvv=478) BASOPHILS ABSOLUTE COUNT (BEAKER) (test 0.03 K/ L 0.01-0.08 ecco=807) IMMATURE GRANULOCYTES-RELATIVE PERCENT (BEAKER) 3 % 0-1 (test ygcs=2864) POCT-GLUCOSE [id number] 23:06:00 Test Item Value Reference Range Comments POC-GLUCOSE METER (BEAKER) 155 mg/dL 70-110 TESTED AT [address] (test ftjd=6906) [place] [address] POCT-GLUCOSE [id number] 17:12:00 Test Item Value Reference Range Comments POC-GLUCOSE METER (BEAKER) 157 mg/dL 70-110 TESTED AT [address] (test kouc=7451) [place] [address] SPIN/CONCENTRATION [id number] 16:25:00 Test Item Value Reference Range Comments CONCENTRATION CHARGED (BEAKER) (test vsbl=1264) Done POCT-GLUCOSE [id number] 12:16:00 Test Item Value Reference Range Comments POC-GLUCOSE METER (BEAKER) 163 mg/dL 70-110 TESTED AT [address] (test xprs=9964) [place] [address] [id number] 11:44:00 Test Item Value Reference Range Comments FERRITIN (BEAKER) (test qcto=413) 400 ng/mL 5-275 IRON, TIBC, % SAT. (WITHOUT FERRITIN)2017-09-03 11:24:00 Test Item Value Reference Range Comments IRON (BEAKER) (test zxtc=770) 38 ug/dL 40-160 TOTAL IRON BINDING CAPACITY (BEAKER) (test 168 ug/dL 250-450 yalv=776) IRON % SATURATION (2) (BEAKER) (test nfhh=9328) 23 % 20-55 RETICULOCYTE [id number] 11:10:00 Test Item Value Reference Range Comments RETICULOCYTE COUNT PCT (BEAKER) (test synt=926) 3.2 % 0.5-1.8 RAD, CHEST, 1 VIEW, NON [id number] 11:05:00Reason for exam:->shortness of breathFINAL REPORT Chest [...] MDReport Verified Date/Time: 09/03/2017 11:05:13 Reading Location: [facility] Radiology Reading Room [facility] (HEMOGRAM ONLY)2017-09-03 10:57:00 Test Item Value Reference Range Comments WHITE BLOOD CELL COUNT (BEAKER) (test acmh=817) 9.9 K/ L 3.5-10.5 RED BLOOD CELL COUNT (BEAKER) (test errk=659) 2.71 M/ L 4.63-6.08 HEMOGLOBIN (BEAKER) (test xfvg=538) 7.6 GM/DL 13.7-17.5 HEMATOCRIT (BEAKER) (test eevw=011) 25.6 % 40.1-51.0 MEAN CORPUSCULAR VOLUME (BEAKER) (test vyxp=693) 94.5 fL 79.0-92.2 MEAN CORPUSCULAR HEMOGLOBIN (BEAKER) (test 28.0 pg 25.7-32.2 wxia=162) MEAN CORPUSCULAR HEMOGLOBIN CONC (BEAKER) (test 29.7 GM/DL 32.3-36.5 vmvp=162) RED CELL DISTRIBUTION WIDTH (BEAKER) (test 16.9 % 11.6-14.4 mkby=057) PLATELET COUNT (BEAKER) (test vxeg=831) 438 K/CU MM 150-450 MEAN PLATELET VOLUME (BEAKER) (test bcjw=108) 9.9 fL 9.4-12.4 NUCLEATED RED BLOOD CELLS (BEAKER) (test 0 /100 WBC 0-0 rnzy=361) HEMOGLOBIN AND [id number] 06:14:00 Test Item Value Reference Range Comments HEMOGLOBIN (BEAKER) (test znou=517) 6.7 GM/DL 13.7-17.5 HEMATOCRIT (BEAKER) (test kqik=861) 23.0 % 40.1-51.0 POCT-GLUCOSE [id number] 06:08:00 Test Item Value Reference Range Comments POC-GLUCOSE METER (BEAKER) 155 mg/dL 70-110 TESTED AT [facility] [address] (test apef=8121) [facility] [address] BASIC METABOLIC [id number] 03:44:00 Test Item Value Reference Range Comments SODIUM (BEAKER) (test 136 meq/L 136-145 kwbu=253) POTASSIUM (BEAKER) (test 4.4 meq/L 3.5-5.1 gecc=662) CHLORIDE (BEAKER) (test 104 meq/L 98-107 xnty=612) CO2 (BEAKER) (test 21 meq/L 22-29 lroq=655) BLOOD UREA NITROGEN 31 mg/dL 7-21 (BEAKER) (test urlq=200) CREATININE (BEAKER) (test 2.73 mg/dL 0.57-1.25 fvfv=415) GLUCOSE RANDOM (BEAKER) 156 mg/dL 70-105 (test dhwd=387) CALCIUM (BEAKER) (test 7.7 mg/dL 8.4-10.2 mmzn=103) EGFR (BEAKER) (test 23 mL/min/1.73 sq m ESTIMATED GFR IS NOT uvnu=9440) ACCURATE CREATININE CLEARANCE IN PREDICTING GLOMERULAR FILTRATION RATE. ESTIMATED GFR IS NOT APPLICABLE FOR DIALYSIS PATIENTS. VANCOMYCIN LEVEL, [id number] 03:41:00 Test Item Value Reference Range Comments VANCOMYCIN RANDOM (BEAKER) (test zwqb=858) 16.7 ug/mL Reference Range: No [id number] 03:40:00 Test Item Value Reference Range Comments PHOSPHORUS (BEAKER) (test dobh=100) 5.2 mg/dL 2.3-4.7 [id number] 03:40:00 Test Item Value Reference Range Comments MAGNESIUM (BEAKER) (test cqdo=366) 1.7 mg/dL 1.6-2.6 CBC W/PLT COUNT & AUTO [id number] 03:39:00 Test Item Value Reference Range Comments WHITE BLOOD CELL COUNT (BEAKER) (test cxfn=483) 8.6 K/ L 3.5-10.5 RED BLOOD CELL COUNT (BEAKER) (test xukx=730) 2.50 M/ L 4.63-6.08 HEMOGLOBIN (BEAKER) (test jsaz=308) 6.9 GM/DL 13.7-17.5 HEMATOCRIT (BEAKER) (test hbzs=176) 23.6 % 40.1-51.0 MEAN CORPUSCULAR VOLUME (BEAKER) (test kdcl=684) 94.4 fL 79.0-92.2 MEAN CORPUSCULAR HEMOGLOBIN (BEAKER) (test 27.6 pg 25.7-32.2 sekb=630) MEAN CORPUSCULAR HEMOGLOBIN CONC (BEAKER) (test 29.2 GM/DL 32.3-36.5 ykhj=240) RED CELL DISTRIBUTION WIDTH (BEAKER) (test 17.2 % 11.6-14.4 hrti=385) PLATELET COUNT (BEAKER) (test xqdf=396) 454 K/CU MM 150-450 MEAN PLATELET VOLUME (BEAKER) (test mprs=006) 10.0 fL 9.4-12.4 NUCLEATED RED BLOOD CELLS (BEAKER) (test 0 /100 WBC 0-0 wrtg=862) NEUTROPHILS RELATIVE PERCENT (BEAKER) (test 78 % mekx=007) LYMPHOCYTES RELATIVE PERCENT (BEAKER) (test 11 % dhel=369) MONOCYTES RELATIVE PERCENT (BEAKER) (test 10 % dvwr=258) EOSINOPHILS RELATIVE PERCENT (BEAKER) (test 0 % pqyo=830) BASOPHILS RELATIVE PERCENT (BEAKER) (test 0 % gmde=244) NEUTROPHILS ABSOLUTE COUNT (BEAKER) (test 6.71 K/ L 1.78-5.38 zcuy=784) LYMPHOCYTES ABSOLUTE COUNT (BEAKER) (test 0.93 K/ L 1.32-3.57 lfgu=409) MONOCYTES ABSOLUTE COUNT (BEAKER) (test 0.83 K/ L 0.30-0.82 fkrr=952) EOSINOPHILS ABSOLUTE COUNT (BEAKER) (test 0.02 K/ L 0.04-0.54 hwol=769) BASOPHILS ABSOLUTE COUNT (BEAKER) (test 0.01 K/ L 0.01-0.08 lsgo=820) IMMATURE GRANULOCYTES-RELATIVE PERCENT (BEAKER) 1 % 0-1 (test eebk=8789) POCT-GLUCOSE [id number] 23:21:00 Test Item Value Reference Range Comments POC-GLUCOSE METER (BEAKER) 168 mg/dL 70-110 TESTED AT [facility] [address] [facility] (test zdul=0678) [facility] [address] URINALYSIS W/ [id number] 22:42:00 Test Item Value Reference Range Comments COLOR (BEAKER) (test ysba=363) Yellow CLARITY (BEAKER) (test scru=036) Hazy SPECIFIC GRAVITY UA (BEAKER) (test dawm=130) 1.018 1.001-1.035 PH UA (BEAKER) (test zwvr=485) 5.0 5.0-8.0 PROTEIN UA (BEAKER) (test goxv=713) 50 mg/dL Negative GLUCOSE UA (BEAKER) (test miik=686) Negative Negative KETONES UA (BEAKER) (test mtdu=394) Negative Negative BILIRUBIN UA (BEAKER) (test dsdc=621) Negative Negative BLOOD UA (BEAKER) (test vyjc=747) Negative Negative NITRITE UA (BEAKER) (test ajhl=916) Negative Negative LEUKOCYTE ESTERASE UA (BEAKER) (test iwdk=117) Large Negative UROBILINOGEN UA (BEAKER) (test mmdw=627) 2.0 mg/dL 0.2-1.0 RBC UA (BEAKER) (test ohhb=182) 0 /HPF WBC UA (BEAKER) (test naub=589) 45 /HPF MUCUS (BEAKER) (test qazt=3095) Occasional SQUAMOUS EPITHELIAL (BEAKER) (test vajm=707) 1 /HPF SOURCE(BEAKER) (test kznf=9958) BASIC METABOLIC [id number] 22:37:00 Test Item Value Reference Range Comments SODIUM (BEAKER) (test 135 meq/L 136-145 xshn=723) POTASSIUM (BEAKER) (test 4.6 meq/L 3.5-5.1 oclk=018) CHLORIDE (BEAKER) (test 105 meq/L 98-107 gryc=991) CO2 (BEAKER) (test 21 meq/L 22-29 ixcy=983) BLOOD UREA NITROGEN 30 mg/dL 7-21 (BEAKER) (test orpa=925) CREATININE (BEAKER) (test 2.40 mg/dL 0.57-1.25 yzgc=857) GLUCOSE RANDOM (BEAKER) 158 mg/dL 70-105 (test humw=074) CALCIUM (BEAKER) (test 7.8 mg/dL 8.4-10.2 tpco=995) EGFR (BEAKER) (test 27 mL/min/1.73 sq m ESTIMATED GFR IS NOT otcl=6051) ACCURATE CREATININE CLEARANCE IN PREDICTING GLOMERULAR FILTRATION RATE. ESTIMATED GFR IS NOT APPLICABLE FOR DIALYSIS PATIENTS. [id number] 22:34:00 Test Item Value Reference Range Comments MAGNESIUM (BEAKER) (test hien=699) 1.3 mg/dL 1.6-2.6 LACTIC ACID, ARTERIAL, WHOLE [id number] 22:30:00 Test Item Value Reference Range Comments LACTATE BLOOD ARTERIAL (2) (BEAKER) (test 1.9 mmol/L 0.5-2.2 eumr=1166) Effective 09/27/2015: Units/Reference Range ChangeNew: 0.5-2.2 mmol/L Previous: 5 -20 mg/dLHEPATIC FUNCTION [id number] 20:18:00 Test Item Value Reference Range Comments TOTAL PROTEIN (BEAKER) (test nabe=817) 6.2 gm/dL 6.0-8.3 ALBUMIN (BEAKER) (test zomd=2054) 2.4 g/dL 3.5-5.0 BILIRUBIN TOTAL (BEAKER) (test bncc=180) 0.5 mg/dL 0.2-1.2 BILIRUBIN DIRECT (BEAKER) (test wjep=987) 0.3 mg/dL 0.1-0.5 ALKALINE PHOSPHATASE (BEAKER) (test akxh=502) 82 U/L 40-150 AST (SGOT) (BEAKER) (test fotf=784) 36 U/L 5-34 ALT (SGPT) (BEAKER) (test ofee=539) 29 U/L 6-55 LACTIC ACID, VENOUS, WHOLE [id number] 20:13:00 Test Item Value Reference Range Comments LACTATE BLOOD VENOUS (2) (BEAKER) (test 2.0 mmol/L 0.5-2.2 hrso=3646) Effective 09/27/2015: Units/Reference Range ChangeNew: 0.5-2.2 mmol/L Previous: 5 -20 mg/dLBASIC METABOLIC [id number] 15:01:00 Test Item Value Reference Range Comments SODIUM (BEAKER) (test 135 meq/L 136-145 lilo=402) POTASSIUM (BEAKER) (test 4.3 meq/L 3.5-5.1 dvhe=299) CHLORIDE (BEAKER) (test 102 meq/L 98-107 hiyi=214) CO2 (BEAKER) (test 22 meq/L 22-29 ftaz=777) BLOOD UREA NITROGEN 27 mg/dL 7-21 (BEAKER) (test jokw=382) CREATININE (BEAKER) (test 1.97 mg/dL 0.57-1.25 tkrd=463) GLUCOSE RANDOM (BEAKER) 185 mg/dL 70-105 (test vjva=543) CALCIUM (BEAKER) (test 7.9 mg/dL 8.4-10.2 qmbz=982) EGFR (BEAKER) (test 33 mL/min/1.73 sq m ESTIMATED GFR IS NOT wyqo=7904) ACCURATE CREATININE CLEARANCE IN PREDICTING GLOMERULAR FILTRATION RATE. ESTIMATED GFR IS NOT APPLICABLE FOR DIALYSIS PATIENTS. [id number] 14:58:00 Test Item Value Reference Range Comments PHOSPHORUS (BEAKER) (test qjcd=221) 5.2 mg/dL 2.3-4.7 [id number] 14:58:00 Test Item Value Reference Range Comments MAGNESIUM (BEAKER) (test ikty=870) 1.4 mg/dL 1.6-2.6 BASIC METABOLIC [id number] 14:49:00 Test Item Value Reference Range Comments SODIUM (BEAKER) (test 134 meq/L 136-145 iseq=807) POTASSIUM (BEAKER) (test 4.4 meq/L 3.5-5.1 mvbw=968) CHLORIDE (BEAKER) (test 102 meq/L 98-107 vepq=043) CO2 (BEAKER) (test 22 meq/L 22-29 wwzu=886) BLOOD UREA NITROGEN 27 mg/dL 7-21 (BEAKER) (test wsna=943) CREATININE (BEAKER) (test 1.96 mg/dL 0.57-1.25 dabn=943) GLUCOSE RANDOM (BEAKER) 184 mg/dL 70-105 (test xkox=658) CALCIUM (BEAKER) (test 7.9 mg/dL 8.4-10.2 sicy=716) EGFR (BEAKER) (test 34 mL/min/1.73 sq m ESTIMATED GFR IS NOT tmtg=6055) ACCURATE CREATININE CLEARANCE IN PREDICTING GLOMERULAR FILTRATION RATE. ESTIMATED GFR IS NOT APPLICABLE FOR DIALYSIS PATIENTS. LACTIC ACID, ARTERIAL, WHOLE [id number] 14:35:00 Test Item Value Reference Range Comments LACTATE BLOOD ARTERIAL (2) (BEAKER) (test 2.6 mmol/L 0.5-2.2 oenq=4105) Effective 09/27/2015: Units/Reference Range ChangeNew: 0.5-2.2 mmol/L Previous: 5 -20 mg/dLPROTHROMBIN [id number] 14:27:00 Test Item Value Reference Range Comments PROTIME (BEAKER) (test urwb=258) 21.3 seconds 11.7-14.7 INR (BEAKER) (test ylyg=714) 1.8 <=5.9 RECOMMENDED COUMADIN/WARFARIN INR THERAPY RANGESSTANDARD DOSE: 2.0 - 3.0 Includes: PROPHYLAXIS forvenous thrombosis, systemic embolization; TREATMENT for venous thrombosis and/or pulmonary embolus.HIGH RISK: Target INR is 2.5-3.5 for patients with mechanical heart valves.[id number] 14:27:00 Test Item Value Reference Range Comments PARTIAL THROMBOPLASTIN TIME (BEAKER) (test 37.6 seconds 22.5-36.0 ejqg=474) CBC W/PLT COUNT & AUTO [id number] 14:20:00 Test Item Value Reference Range Comments WHITE BLOOD CELL COUNT (BEAKER) (test cgqo=544) 13.7 K/ L 3.5-10.5 RED BLOOD CELL COUNT (BEAKER) (test byai=081) 3.16 M/ L 4.63-6.08 HEMOGLOBIN (BEAKER) (test uxnn=208) 8.8 GM/DL 13.7-17.5 HEMATOCRIT (BEAKER) (test fopq=862) 29.9 % 40.1-51.0 MEAN CORPUSCULAR VOLUME (BEAKER) (test ckkh=921) 94.6 fL 79.0-92.2 MEAN CORPUSCULAR HEMOGLOBIN (BEAKER) (test 27.8 pg 25.7-32.2 hnxj=468) MEAN CORPUSCULAR HEMOGLOBIN CONC (BEAKER) (test 29.4 GM/DL 32.3-36.5 nfex=865) RED CELL DISTRIBUTION WIDTH (BEAKER) (test 16.8 % 11.6-14.4 cgsu=233) PLATELET COUNT (BEAKER) (test hjlp=372) 583 K/CU MM 150-450 MEAN PLATELET VOLUME (BEAKER) (test zsgk=181) 10.0 fL 9.4-12.4 NUCLEATED RED BLOOD CELLS (BEAKER) (test 0 /100 WBC 0-0 wdea=740) NEUTROPHILS RELATIVE PERCENT (BEAKER) (test 80 % irqu=354) LYMPHOCYTES RELATIVE PERCENT (BEAKER) (test 7 % qyto=522) MONOCYTES RELATIVE PERCENT (BEAKER) (test 11 % rlbr=890) EOSINOPHILS RELATIVE PERCENT (BEAKER) (test 0 % bjat=546) BASOPHILS RELATIVE PERCENT (BEAKER) (test 0 % qqnx=422) NEUTROPHILS ABSOLUTE COUNT (BEAKER) (test 11.04 K/ L 1.78-5.38 kxbh=242) LYMPHOCYTES ABSOLUTE COUNT (BEAKER) (test 0.93 K/ L 1.32-3.57 bbzx=246) MONOCYTES ABSOLUTE COUNT (BEAKER) (test 1.55 K/ L 0.30-0.82 mmro=028) EOSINOPHILS ABSOLUTE COUNT (BEAKER) (test 0.01 K/ L 0.04-0.54 gqmb=247) BASOPHILS ABSOLUTE COUNT (BEAKER) (test 0.01 K/ L 0.01-0.08 exdw=332) IMMATURE GRANULOCYTES-RELATIVE PERCENT (BEAKER) 1 % 0-1 (test xhxw=3574) CBC W/PLT COUNT & AUTO [id number] 14:15:00 Test Item Value Reference Range Comments WHITE BLOOD CELL COUNT (BEAKER) (test abwu=327) 13.8 K/ L 3.5-10.5 RED BLOOD CELL COUNT (BEAKER) (test bdeh=837) 3.22 M/ L 4.63-6.08 HEMOGLOBIN (BEAKER) (test atyn=354) 8.9 GM/DL 13.7-17.5 HEMATOCRIT (BEAKER) (test dfwk=917) 30.5 % 40.1-51.0 MEAN CORPUSCULAR VOLUME (BEAKER) (test eweu=568) 94.7 fL 79.0-92.2 MEAN CORPUSCULAR HEMOGLOBIN (BEAKER) (test 27.6 pg 25.7-32.2 hxog=236) MEAN CORPUSCULAR HEMOGLOBIN CONC (BEAKER) (test 29.2 GM/DL 32.3-36.5 irpp=433) RED CELL DISTRIBUTION WIDTH (BEAKER) (test 16.9 % 11.6-14.4 zbhs=256) PLATELET COUNT (BEAKER) (test rkiv=762) 578 K/CU MM 150-450 MEAN PLATELET VOLUME (BEAKER) (test refe=717) 9.9 fL 9.4-12.4 NUCLEATED RED BLOOD CELLS (BEAKER) (test 0 /100 WBC 0-0 owjp=933) NEUTROPHILS RELATIVE PERCENT (BEAKER) (test 82 % oonu=662) LYMPHOCYTES RELATIVE PERCENT (BEAKER) (test 6 % xrib=390) MONOCYTES RELATIVE PERCENT (BEAKER) (test 11 % sekf=058) EOSINOPHILS RELATIVE PERCENT (BEAKER) (test 0 % tguu=464) BASOPHILS RELATIVE PERCENT (BEAKER) (test 0 % nucu=890) NEUTROPHILS ABSOLUTE COUNT (BEAKER) (test 11.24 K/ L 1.78-5.38 qzgo=130) LYMPHOCYTES ABSOLUTE COUNT (BEAKER) (test 0.86 K/ L 1.32-3.57 ytxx=086) MONOCYTES ABSOLUTE COUNT (BEAKER) (test 1.49 K/ L 0.30-0.82 xuvt=017) EOSINOPHILS ABSOLUTE COUNT (BEAKER) (test 0.01 K/ L 0.04-0.54 owgn=007) BASOPHILS ABSOLUTE COUNT (BEAKER) (test 0.02 K/ L 0.01-0.08 tehe=179) IMMATURE GRANULOCYTES-RELATIVE PERCENT (BEAKER) 1 % 0-1 (test nkjw=3695) POCT-GLUCOSE [id number] 13:21:00 Test Item Value Reference Range Comments POC-GLUCOSE METER (BEAKER) 208 mg/dL 70-110 TESTED AT [facility] [address] [facility] (test eqid=0157) [facility] [address] RAD, CHEST, 1 VIEW, NON [id number] 11:57:00Reason for exam:->SOB, CHFFINAL REPORT Chest one [...] Location: [facility] Reading Room POCT-GLUCOSE [id number] 06:05:00 Test Item Value Reference Range Comments POC-GLUCOSE METER (BEAKER) 141 mg/dL 70-110 TESTED AT [address] (test ywkt=0898) [facility] [address] [id number] 06:04:00 Test Item Value Reference Range Comments PREALBUMIN (BEAKER) (test plby=867) 13 mg/dL 14-45 POCT-GLUCOSE [id number] 20:43:00 Test Item Value Reference Range Comments POC-GLUCOSE METER (BEAKER) 179 mg/dL 70-110 TESTED AT [address] (test jahv=9176) [facility] [address] POCT-GLUCOSE [id number] 16:57:00 Test Item Value Reference Range Comments POC-GLUCOSE METER (BEAKER) 215 mg/dL 70-110 TESTED AT [address] (test duqi=4501) [facility] [address] POCT-GLUCOSE [id number] 11:18:00 Test Item Value Reference Range Comments POC-GLUCOSE METER (BEAKER) 159 mg/dL 70-110 TESTED AT [address] (test auzg=0182) [facility] [address] BASIC METABOLIC [id number] 07:33:00 Test Item Value Reference Range Comments SODIUM (BEAKER) (test 139 meq/L 136-145 xarm=717) POTASSIUM (BEAKER) (test 4.1 meq/L 3.5-5.1 bclq=080) CHLORIDE (BEAKER) (test 104 meq/L 98-107 uecb=888) CO2 (BEAKER) (test 25 meq/L 22-29 jobo=793) BLOOD UREA NITROGEN 20 mg/dL 7-21 (BEAKER) (test fdns=369) CREATININE (BEAKER) (test 1.26 mg/dL 0.57-1.25 erxy=548) GLUCOSE RANDOM (BEAKER) 99 mg/dL 70-105 (test cjzq=711) CALCIUM (BEAKER) (test 8.5 mg/dL 8.4-10.2 eppt=314) EGFR (BEAKER) (test 56 mL/min/1.73 sq m ESTIMATED GFR IS NOT cgoq=6252) ACCURATE CREATININE CLEARANCE IN PREDICTING GLOMERULAR FILTRATION RATE. ESTIMATED GFR IS NOT APPLICABLE FOR DIALYSIS PATIENTS. CBC (HEMOGRAM ONLY)2017-09-01 06:13:00 Test Item Value Reference Range Comments WHITE BLOOD CELL COUNT (BEAKER) (test cpnr=707) 6.4 K/ L 3.5-10.5 RED BLOOD CELL COUNT (BEAKER) (test tfhp=161) 3.42 M/ L 4.63-6.08 HEMOGLOBIN (BEAKER) (test mbsc=871) 9.8 GM/DL 13.7-17.5 HEMATOCRIT (BEAKER) (test exkf=455) 32.8 % 40.1-51.0 MEAN CORPUSCULAR VOLUME (BEAKER) (test vjhv=576) 95.9 fL 79.0-92.2 MEAN CORPUSCULAR HEMOGLOBIN (BEAKER) (test 28.7 pg 25.7-32.2 pmjh=660) MEAN CORPUSCULAR HEMOGLOBIN CONC (BEAKER) (test 29.9 GM/DL 32.3-36.5 htva=741) RED CELL DISTRIBUTION WIDTH (BEAKER) (test 16.7 % 11.6-14.4 odtp=467) PLATELET COUNT (BEAKER) (test oomp=366) 391 K/CU MM 150-450 MEAN PLATELET VOLUME (BEAKER) (test vuqy=638) 9.9 fL 9.4-12.4 NUCLEATED RED BLOOD CELLS (BEAKER) (test 0 /100 WBC 0-0 rzms=030) POCT-GLUCOSE [id number] 05:51:00 Test Item Value Reference Range Comments POC-GLUCOSE METER (BEAKER) 122 mg/dL 70-110 TESTED AT [address] (test lwxi=6876) [facility] [address] POCT-GLUCOSE [id number] 20:13:00 Test Item Value Reference Range Comments POC-GLUCOSE METER (BEAKER) 212 mg/dL 70-110 TESTED AT [address] (test ougw=3976) [facility] [address] POCT-GLUCOSE [id number] 16:30:00 Test Item Value Reference Range Comments POC-GLUCOSE METER (BEAKER) 181 mg/dL 70-110 TESTED AT [address] (test zpzx=4117) [facility] [address] POCT-GLUCOSE [id number] 11:36:00 Test Item Value Reference Range Comments POC-GLUCOSE METER (BEAKER) 139 mg/dL 70-110 TESTED AT [address] (test zjdm=9575) [facility] [address] BASIC METABOLIC [id number] 06:56:00 Test Item Value Reference Range Comments SODIUM (BEAKER) (test 138 meq/L 136-145 oejb=237) POTASSIUM (BEAKER) (test 3.6 meq/L 3.5-5.1 miss=326) CHLORIDE (BEAKER) (test 103 meq/L 98-107 trhq=290) CO2 (BEAKER) (test 26 meq/L 22-29 olbe=466) BLOOD UREA NITROGEN 19 mg/dL 7-21 (BEAKER) (test zzxy=471) CREATININE (BEAKER) (test 1.10 mg/dL 0.57-1.25 tpyz=240) GLUCOSE RANDOM (BEAKER) 97 mg/dL 70-105 (test nwhc=313) CALCIUM (BEAKER) (test 8.1 mg/dL 8.4-10.2 drfg=053) EGFR (BEAKER) (test 65 mL/min/1.73 sq m ESTIMATED GFR IS NOT zbyf=4802) ACCURATE CREATININE CLEARANCE IN PREDICTING GLOMERULAR FILTRATION RATE. ESTIMATED GFR IS NOT APPLICABLE FOR DIALYSIS PATIENTS. POCT-GLUCOSE [id number] 06:00:00 Test Item Value Reference Range Comments POC-GLUCOSE METER (BEAKER) 119 mg/dL 70-110 TESTED AT [address] (test dhvk=5961) [facility] [address] POCT-GLUCOSE [id number] 20:05:00 Test Item Value Reference Range Comments POC-GLUCOSE METER (BEAKER) 167 mg/dL 70-110 TESTED AT [address] (test baeg=3212) [facility] [address] POCT-GLUCOSE [id number] 17:01:00 Test Item Value Reference Range Comments POC-GLUCOSE METER (BEAKER) 138 mg/dL 70-110 TESTED AT [address] (test mgbr=9602) [facility] [address] POCT-GLUCOSE [id number] 12:07:00 Test Item Value Reference Range Comments POC-GLUCOSE METER (BEAKER) 201 mg/dL 70-110 TESTED AT [address] (test cpzs=2027) [place] [id number] POCT-GLUCOSE [id number] 06:11:00 Test Item Value Reference Range Comments POC-GLUCOSE METER (BEAKER) 147 mg/dL 70-110 TESTED AT [address] (test rxxz=6501) [place] [address] RAD, CHEST, 1 VIEW, NON [id number] 22:11:00Reason for exam:->sobShould this be performed at [...] MDReport Verified Date/Time: 08/29/2017 22:11:44 Reading Location: [facility] [id number] CT Body Reading Room POCT-GLUCOSE [id number] 20:49:00 Test Item Value Reference Range Comments POC-GLUCOSE METER (BEAKER) 144 mg/dL 70-110 TESTED AT [address] (test eine=2292) [place] [id number] POCT-GLUCOSE [id number] 16:39:00 Test Item Value Reference Range Comments POC-GLUCOSE METER (BEAKER) 151 mg/dL 70-110 TESTED AT [address] (test dqyz=4660) [place] [id number] FUNGUS CULTURE + [id number] 15:05:00 Test Item Value Reference Range Comments CULTURE (BEAKER) (test No fungus isolated in 28 days podl=7308) FUNGUS SMEAR (BEAKER) (test No fungi seen aahh=4168) POCT-GLUCOSE [id number] 11:50:00 Test Item Value Reference Range Comments POC-GLUCOSE METER (BEAKER) 166 mg/dL 70-110 TESTED AT [facility] [address] [facility] (test fobm=9284) [facility] [address] POCT-GLUCOSE [id number] 21:39:00 Test Item Value Reference Range Comments POC-GLUCOSE METER (BEAKER) 136 mg/dL 70-110 TESTED AT [facility] [address] [facility] (test kufy=3241) [facility] [address] COMPREHENSIVE METABOLIC [id number] 16:58:00 Test Item Value Reference Range Comments TOTAL PROTEIN (BEAKER) 6.6 gm/dL 6.0-8.3 (test mscf=764) ALBUMIN (BEAKER) (test 2.6 g/dL 3.5-5.0 onof=4237) ALKALINE PHOSPHATASE 93 U/L 40-150 (BEAKER) (test ehym=825) BILIRUBIN TOTAL (BEAKER) 0.4 mg/dL 0.2-1.2 (test wlls=041) SODIUM (BEAKER) (test 134 meq/L 136-145 ybfi=919) POTASSIUM (BEAKER) (test 3.5 meq/L 3.5-5.1 cvre=977) CHLORIDE (BEAKER) (test 98 meq/L 98-107 nklp=873) CO2 (BEAKER) (test 25 meq/L 22-29 dqbu=684) BLOOD UREA NITROGEN 28 mg/dL 7-21 (BEAKER) (test qkxz=289) CREATININE (BEAKER) (test 1.36 mg/dL 0.57-1.25 dnbw=497) GLUCOSE RANDOM (BEAKER) 117 mg/dL 70-105 (test pyrj=821) CALCIUM (BEAKER) (test 8.1 mg/dL 8.4-10.2 cbmw=127) AST (SGOT) (BEAKER) (test 37 U/L 5-34 tuvm=521) ALT (SGPT) (BEAKER) (test 29 U/L 6-55 ngdu=672) EGFR (BEAKER) (test 51 mL/min/1.73 sq m ESTIMATED GFR IS NOT xzny=3518) ACCURATE CREATININE CLEARANCE IN PREDICTING GLOMERULAR FILTRATION RATE. ESTIMATED GFR IS NOT APPLICABLE FOR DIALYSIS PATIENTS. LACTIC ACID, VENOUS, WHOLE [id number] 16:52:00 Test Item Value Reference Range Comments LACTATE BLOOD VENOUS (2) (BEAKER) (test 1.2 mmol/L 0.5-2.2 czba=7269) Effective 09/27/2015: Units/Reference Range ChangeNew: 0.5-2.2 mmol/L Previous: 5 -20 mg/dLCBC W/PLT COUNT & AUTO [id number] 16:39:00 Test Item Value Reference Range Comments WHITE BLOOD CELL COUNT (BEAKER) (test tsgm=308) 6.6 K/ L 3.5-10.5 RED BLOOD CELL COUNT (BEAKER) (test zmsg=955) 3.11 M/ L 4.63-6.08 HEMOGLOBIN (BEAKER) (test htmr=473) 9.0 GM/DL 13.7-17.5 HEMATOCRIT (BEAKER) (test mqjg=225) 30.1 % 40.1-51.0 MEAN CORPUSCULAR VOLUME (BEAKER) (test xopd=569) 96.8 fL 79.0-92.2 MEAN CORPUSCULAR HEMOGLOBIN (BEAKER) (test 28.9 pg 25.7-32.2 kopy=459) MEAN CORPUSCULAR HEMOGLOBIN CONC (BEAKER) (test 29.9 GM/DL 32.3-36.5 wtpa=978) RED CELL DISTRIBUTION WIDTH (BEAKER) (test 16.1 % 11.6-14.4 gpze=219) PLATELET COUNT (BEAKER) (test swvn=662) 367 K/CU MM 150-450 MEAN PLATELET VOLUME (BEAKER) (test stca=439) 9.4 fL 9.4-12.4 NUCLEATED RED BLOOD CELLS (BEAKER) (test 0 /100 WBC 0-0 dbao=851) NEUTROPHILS RELATIVE PERCENT (BEAKER) (test 78 % kfoq=123) LYMPHOCYTES RELATIVE PERCENT (BEAKER) (test 12 % ilsu=951) MONOCYTES RELATIVE PERCENT (BEAKER) (test 9 % bevm=480) EOSINOPHILS RELATIVE PERCENT (BEAKER) (test 1 % emfy=943) BASOPHILS RELATIVE PERCENT (BEAKER) (test 0 % xdzw=513) NEUTROPHILS ABSOLUTE COUNT (BEAKER) (test 5.18 K/ L 1.78-5.38 aqce=131) LYMPHOCYTES ABSOLUTE COUNT (BEAKER) (test 0.79 K/ L 1.32-3.57 hcho=020) MONOCYTES ABSOLUTE COUNT (BEAKER) (test 0.60 K/ L 0.30-0.82 auhw=643) EOSINOPHILS ABSOLUTE COUNT (BEAKER) (test 0.03 K/ L 0.04-0.54 kzor=873) BASOPHILS ABSOLUTE COUNT (BEAKER) (test 0.01 K/ L 0.01-0.08 tabs=480) IMMATURE GRANULOCYTES-RELATIVE PERCENT (BEAKER) 1 % 0-1 (test yeqf=7341) POCT-GLUCOSE [id number] 16:20:00 Test Item Value Reference Range Comments POC-GLUCOSE METER (BEAKER) 136 mg/dL 70-110 TESTED AT [address] (test anyz=0591) [place] [id number] POCT-GLUCOSE [id number] 11:45:00 Test Item Value Reference Range Comments POC-GLUCOSE METER (BEAKER) 157 mg/dL 70-110 TESTED AT [address] (test honl=6353) [place] [address] POCT-GLUCOSE [id number] 06:31:00 Test Item Value Reference Range Comments POC-GLUCOSE METER (BEAKER) 131 mg/dL 70-110 TESTED AT [address] (test inhf=4634) [place] [address] POCT-GLUCOSE [id number] 20:28:00 Test Item Value Reference Range Comments POC-GLUCOSE METER (BEAKER) 173 mg/dL 70-110 TESTED AT [address] (test ccny=4629) [place] [address] POCT-GLUCOSE [id number] 16:43:00 Test Item Value Reference Range Comments POC-GLUCOSE METER (BEAKER) 191 mg/dL 70-110 TESTED AT [address] (test hmxg=6645) [place] [address] POCT-GLUCOSE [id number] 11:59:00 Test Item Value Reference Range Comments POC-GLUCOSE METER (BEAKER) 152 mg/dL 70-110 TESTED AT [address] (test apgq=3953) [place] [address] RAD, CHEST, 1 VIEW, NON [id number] 11:08:00Reason for exam:-> dyspneaShould this be performed at the bedside?->YesFINAL REPORT Two frontal chest images compared to August 20 Discussion: There is cardiac prominence and pulmonary congestion with probable small left effusion. No pneumothorax. IMPRESSIONS: No change Signed: Taty Osborne MDReport Verified Date/Time: 08/27/2017 11:08:36 Reading Location: [facility] Radiology Reading Room 11 :08 AMPOCT-GLUCOSE [id number] 06:00:00 Test Item Value Reference Range Comments POC-GLUCOSE METER (BEAKER) 129 mg/dL 70-110 TESTED AT [address] (test qnlr=7259) [facility] [address] [id number] 05:12:00 Test Item Value Reference Range Comments PREALBUMIN (BEAKER) (test bmjv=187) 10 mg/dL 14-45 POCT-GLUCOSE [id number] 20:50:00 Test Item Value Reference Range Comments POC-GLUCOSE METER (BEAKER) 177 mg/dL 70-110 TESTED AT [address] (test skxh=2203) [facility] [address] POCT-GLUCOSE [id number] 16:19:00 Test Item Value Reference Range Comments POC-GLUCOSE METER (BEAKER) 162 mg/dL 70-110 TESTED AT [address] (test zzzw=3274) [facility] [address] POCT-GLUCOSE [id number] 11:44:00 Test Item Value Reference Range Comments POC-GLUCOSE METER (BEAKER) 182 mg/dL 70-110 TESTED AT [address] (test sgjq=5508) [facility] [address] POCT-GLUCOSE [id number] 06:07:00 Test Item Value Reference Range Comments POC-GLUCOSE METER (BEAKER) 120 mg/dL 70-110 TESTED AT [address] (test bccc=1381) [facility] [address] POCT-GLUCOSE [id number] 20:48:00 Test Item Value Reference Range Comments POC-GLUCOSE METER (BEAKER) 172 mg/dL 70-110 TESTED AT [address] (test tgbq=4090) [facility] [address] POCT-GLUCOSE [id number] 16:17:00 Test Item Value Reference Range Comments POC-GLUCOSE METER (BEAKER) 156 mg/dL 70-110 TESTED AT [address] (test szar=2492) [facility] [address] POCT-GLUCOSE [id number] 11:33:00 Test Item Value Reference Range Comments POC-GLUCOSE METER (BEAKER) 203 mg/dL 70-110 [facility]ED AT [facility] [address] [facility] (test lkgt=9226) [facility] [address] HEPATIC FUNCTION [id number] 11:30:00 Test Item Value Reference Range Comments TOTAL PROTEIN (BEAKER) (test xlic=428) 6.5 gm/dL 6.0-8.3 ALBUMIN (BEAKER) (test eods=5741) 2.6 g/dL 3.5-5.0 BILIRUBIN TOTAL (BEAKER) (test ipcn=600) 0.4 mg/dL 0.2-1.2 BILIRUBIN DIRECT (BEAKER) (test qpxn=455) 0.3 mg/dL 0.1-0.5 ALKALINE PHOSPHATASE (BEAKER) (test wfjm=229) 105 U/L 40-150 AST (SGOT) (BEAKER) (test ufxy=116) 26 U/L 5-34 ALT (SGPT) (BEAKER) (test eaib=601) 21 U/L 6-55 BASIC METABOLIC [id number] 07:01:00 Test Item Value Reference Range Comments SODIUM (BEAKER) (test 136 meq/L 136-145 qkdw=274) POTASSIUM (BEAKER) (test 3.7 meq/L 3.5-5.1 kddy=280) CHLORIDE (BEAKER) (test 102 meq/L 98-107 kmdq=362) CO2 (BEAKER) (test 25 meq/L 22-29 jqkq=901) BLOOD UREA NITROGEN 23 mg/dL 7-21 (BEAKER) (test zfxs=060) CREATININE (BEAKER) (test 1.22 mg/dL 0.57-1.25 ihzv=140) GLUCOSE RANDOM (BEAKER) 120 mg/dL 70-105 (test btyb=617) CALCIUM (BEAKER) (test 8.4 mg/dL 8.4-10.2 lxko=808) EGFR (BEAKER) (test 58 mL/min/1.73 sq m ESTIMATED GFR IS NOT efku=4725) ACCURATE CREATININE CLEARANCE IN PREDICTING GLOMERULAR FILTRATION RATE. ESTIMATED GFR IS NOT APPLICABLE FOR DIALYSIS PATIENTS. CBC (HEMOGRAM ONLY)2017-08-25 06:32:00 Test Item Value Reference Range Comments WHITE BLOOD CELL COUNT (BEAKER) (test ypjq=812) 7.0 K/ L 3.5-10.5 RED BLOOD CELL COUNT (BEAKER) (test jvfj=306) 3.14 M/ L 4.63-6.08 HEMOGLOBIN (BEAKER) (test rzbm=724) 9.2 GM/DL 13.7-17.5 HEMATOCRIT (BEAKER) (test msrn=376) 31.3 % 40.1-51.0 MEAN CORPUSCULAR VOLUME (BEAKER) (test dxuu=855) 99.7 fL 79.0-92.2 MEAN CORPUSCULAR HEMOGLOBIN (BEAKER) (test 29.3 pg 25.7-32.2 zxds=017) MEAN CORPUSCULAR HEMOGLOBIN CONC (BEAKER) (test 29.4 GM/DL 32.3-36.5 wsal=935) RED CELL DISTRIBUTION WIDTH (BEAKER) (test 16.1 % 11.6-14.4 frhi=522) PLATELET COUNT (BEAKER) (test fgwg=226) 362 K/CU MM 150-450 MEAN PLATELET VOLUME (BEAKER) (test rydo=861) 9.8 fL 9.4-12.4 NUCLEATED RED BLOOD CELLS (BEAKER) (test 0 /100 WBC 0-0 bpoo=805) POCT-GLUCOSE [id number] 06:17:00 Test Item Value Reference Range Comments POC-GLUCOSE METER (BEAKER) 152 mg/dL 70-110 TESTED AT [address] (test xaep=5010) [facility] [address] POCT-GLUCOSE [id number] 20:39:00 Test Item Value Reference Range Comments POC-GLUCOSE METER (BEAKER) 249 mg/dL 70-110 TESTED AT [address] (test awhe=1980) [facility] [address] POCT-GLUCOSE [id number] 17:12:00 Test Item Value Reference Range Comments POC-GLUCOSE METER (BEAKER) 163 mg/dL 70-110 TESTED AT [address] (test yhpa=6686) [facility] [address] POCT-GLUCOSE [id number] 11:20:00 Test Item Value Reference Range Comments POC-GLUCOSE METER (BEAKER) 190 mg/dL 70-110 TESTED AT [address] (test zaom=2681) [facility] [address] POCT-GLUCOSE [id number] 06:16:00 Test Item Value Reference Range Comments POC-GLUCOSE METER (BEAKER) 126 mg/dL 70-110 TESTED AT [address] (test njpi=7435) [place] [address] POCT-GLUCOSE [id number] 20:49:00 Test Item Value Reference Range Comments POC-GLUCOSE METER (BEAKER) 139 mg/dL 70-110 TESTED AT [address] (test ilee=4734) [place] [address] POCT-GLUCOSE [id number] 16:32:00 Test Item Value Reference Range Comments POC-GLUCOSE METER (BEAKER) 161 mg/dL 70-110 TESTED AT [address] (test ngrx=6603) [place] [address] POCT-GLUCOSE [id number] 12:02:00 Test Item Value Reference Range Comments POC-GLUCOSE METER (BEAKER) 149 mg/dL 70-110 TESTED AT [address] (test oilt=0449) [place] [address] CBC W/PLT COUNT & AUTO [id number] 07:02:00 Test Item Value Reference Range Comments WHITE BLOOD CELL COUNT (BEAKER) (test tbpe=425) 8.4 K/ L 3.5-10.5 RED BLOOD CELL COUNT (BEAKER) (test qjpy=026) 3.07 M/ L 4.63-6.08 HEMOGLOBIN (BEAKER) (test ewkx=784) 9.1 GM/DL 13.7-17.5 HEMATOCRIT (BEAKER) (test ddwl=358) 30.9 % 40.1-51.0 MEAN CORPUSCULAR VOLUME (BEAKER) (test vqfr=074) 100.7 fL 79.0-92.2 MEAN CORPUSCULAR HEMOGLOBIN (BEAKER) (test 29.6 pg 25.7-32.2 hlgg=628) MEAN CORPUSCULAR HEMOGLOBIN CONC (BEAKER) (test 29.4 GM/DL 32.3-36.5 tbea=570) RED CELL DISTRIBUTION WIDTH (BEAKER) (test 16.1 % 11.6-14.4 rlyk=559) PLATELET COUNT (BEAKER) (test ftif=499) 374 K/CU MM 150-450 MEAN PLATELET VOLUME (BEAKER) (test otht=047) 9.8 fL 9.4-12.4 NUCLEATED RED BLOOD CELLS (BEAKER) (test 0 /100 WBC 0-0 wqkl=397) NEUTROPHILS RELATIVE PERCENT (BEAKER) (test 78 % qfxs=503) LYMPHOCYTES RELATIVE PERCENT (BEAKER) (test 9 % viwr=215) MONOCYTES RELATIVE PERCENT (BEAKER) (test 10 % nbqy=384) EOSINOPHILS RELATIVE PERCENT (BEAKER) (test 3 % civl=338) BASOPHILS RELATIVE PERCENT (BEAKER) (test 1 % byck=213) NEUTROPHILS ABSOLUTE COUNT (BEAKER) (test 6.53 K/ L 1.78-5.38 khqu=769) LYMPHOCYTES ABSOLUTE COUNT (BEAKER) (test 0.75 K/ L 1.32-3.57 tqej=167) MONOCYTES ABSOLUTE COUNT (BEAKER) (test 0.81 K/ L 0.30-0.82 lmxq=162) EOSINOPHILS ABSOLUTE COUNT (BEAKER) (test 0.22 K/ L 0.04-0.54 uhlm=154) BASOPHILS ABSOLUTE COUNT (BEAKER) (test 0.04 K/ L 0.01-0.08 nswi=670) IMMATURE GRANULOCYTES-RELATIVE PERCENT (BEAKER) 1 % 0-1 (test ykhm=1802) BASIC METABOLIC [id number] 06:59:00 Test Item Value Reference Range Comments SODIUM (BEAKER) (test 136 meq/L 136-145 hmps=094) POTASSIUM (BEAKER) (test 3.8 meq/L 3.5-5.1 svqs=833) CHLORIDE (BEAKER) (test 104 meq/L 98-107 ywac=223) CO2 (BEAKER) (test 23 meq/L 22-29 oexw=077) BLOOD UREA NITROGEN 26 mg/dL 7-21 (BEAKER) (test itdh=219) CREATININE (BEAKER) (test 1.30 mg/dL 0.57-1.25 kzft=856) GLUCOSE RANDOM (BEAKER) 124 mg/dL 70-105 (test zkrk=687) CALCIUM (BEAKER) (test 8.6 mg/dL 8.4-10.2 jzep=933) EGFR (BEAKER) (test 54 mL/min/1.73 sq m ESTIMATED GFR IS NOT tkup=5141) ACCURATE CREATININE CLEARANCE IN PREDICTING GLOMERULAR FILTRATION RATE. ESTIMATED GFR IS NOT APPLICABLE FOR DIALYSIS PATIENTS. POCT-GLUCOSE [id number] 06:40:00 Test Item Value Reference Range Comments POC-GLUCOSE METER (BEAKER) 158 mg/dL 70-110 TESTED AT [address] (test kzzv=8367) [facility] [address] POCT-GLUCOSE [id number] 20:50:00 Test Item Value Reference Range Comments POC-GLUCOSE METER (BEAKER) 174 mg/dL 70-110 TESTED AT [address] (test gmbg=4315) [facility] [address] POCT-GLUCOSE [id number] 17:01:00 Test Item Value Reference Range Comments POC-GLUCOSE METER (BEAKER) 130 mg/dL 70-110 TESTED AT [address] (test rmsr=1996) [facility] [address] POCT-GLUCOSE [id number] 12:02:00 Test Item Value Reference Range Comments POC-GLUCOSE METER (BEAKER) 194 mg/dL 70-110 TESTED AT [address] (test kilt=3240) [facility] [address] POCT-GLUCOSE [id number] 06:25:00 Test Item Value Reference Range Comments POC-GLUCOSE METER (BEAKER) 130 mg/dL 70-110 TESTED AT [address] (test kxju=5713) [place] [address] POCT-GLUCOSE [id number] 19:53:00 Test Item Value Reference Range Comments POC-GLUCOSE METER (BEAKER) 188 mg/dL 70-110 TESTED AT [address] (test udog=2804) [facility] [address] POCT-GLUCOSE [id number] 16:24:00 Test Item Value Reference Range Comments POC-GLUCOSE METER (BEAKER) 210 mg/dL 70-110 TESTED AT [address] (test pczq=2763) [facility] [address] POCT-GLUCOSE [id number] 11:20:00 Test Item Value Reference Range Comments POC-GLUCOSE METER (BEAKER) 186 mg/dL 70-110 TESTED AT [address] (test dhvm=5230) [facility] [address] POCT-GLUCOSE [id number] 06:18:00 Test Item Value Reference Range Comments POC-GLUCOSE METER (BEAKER) 127 mg/dL 70-110 TESTED AT [address] (test etfv=0114) [place] [address] POCT-GLUCOSE [id number] 20:48:00 Test Item Value Reference Range Comments POC-GLUCOSE METER (BEAKER) 166 mg/dL 70-110 TESTED AT [address] (test svao=5519) [place] [address] POCT-GLUCOSE [id number] 16:51:00 Test Item Value Reference Range Comments POC-GLUCOSE METER (BEAKER) 153 mg/dL 70-110 TESTED AT [address] (test loju=7889) [place] [address] B-TYPE NATRIURETIC FACTOR (BNP)2017-08-20 14:00:00 Test Item Value Reference Range Comments B-TYPE NATRIURETIC PEPTIDE (BEAKER) (test 422 pg/mL 0-100 puar=748) POCT-GLUCOSE [id number] 12:02:00 Test Item Value Reference Range Comments POC-GLUCOSE METER (BEAKER) 203 mg/dL 70-110 TESTED AT [address] (test dryy=8465) [place] [address] RAD, CHEST, 1 VIEW, NON [id number] 08:19:00Reason for exam:->pulm edema fupShould this be [...] Garnica Verified Date/Time: 08/20/2017 08:19:33 Reading Location: [facility] Radiology Reading Room POCT-GLUCOSE [id number] 05:10:00 Test Item Value Reference Range Comments POC-GLUCOSE METER (BEAKER) 138 mg/dL 70-110 TESTED AT [address] (test ehen=8733) [place] [address] POCT-GLUCOSE [id number] 21:20:00 Test Item Value Reference Range Comments POC-GLUCOSE METER (BEAKER) 151 mg/dL 70-110 TESTED AT [address] (test epgv=1943) [place] [address] POCT-GLUCOSE [id number] 18:02:00 Test Item Value Reference Range Comments POC-GLUCOSE METER (BEAKER) 227 mg/dL 70-110 TESTED AT [address] (test vujo=4529) [place] [address] POCT-GLUCOSE [id number] 11:42:00 Test Item Value Reference Range Comments POC-GLUCOSE METER (BEAKER) 212 mg/dL 70-110 TESTED AT [address] (test pxqn=6381) [place] [address] VITAMIN B12 AND [id number] 07:11:00 Test Item Value Reference Range Comments VITAMIN B12 (BEAKER) (test soda=364) 654 pg/mL 213-816 FOLATE (BEAKER) (test ttyy=479) 4.4 ng/mL >=7.0 POCT-GLUCOSE [id number] 06:14:00 Test Item Value Reference Range Comments POC-GLUCOSE METER (BEAKER) 144 mg/dL 70-110 TESTED AT [address] (test ftxv=5725) [place] [address] CT, CHEST, WITHOUT [id number] 22:14:00FINAL REPORT CT, CHEST, WITHOUT CONTRAST INDICATION: [...] MDReport Verified Date/Time: 08/18/2017 22:14:14 Reading Location: [facility] B1 C013Y CT Body Reading Room POCT-GLUCOSE [id number] 21: 03:00 Test Item Value Reference Range Comments POC-GLUCOSE METER (BEAKER) 179 mg/dL 70-110 TESTED AT [address] (test nilk=7677) [place] [address] POCT-GLUCOSE [id number] 16:32:00 Test Item Value Reference Range Comments POC-GLUCOSE METER (BEAKER) 147 mg/dL 70-110 TESTED AT [address] (test hzpt=5460) [place] [address] POCT-GLUCOSE [id number] 12:07:00 Test Item Value Reference Range Comments POC-GLUCOSE METER (BEAKER) 171 mg/dL 70-110 TESTED AT [address] (test xark=3016) [facility] [address] BASIC METABOLIC [id number] 06:31:00 Test Item Value Reference Range Comments SODIUM (BEAKER) (test 136 meq/L 136-145 inrc=789) POTASSIUM (BEAKER) (test 4.2 meq/L 3.5-5.1 iice=650) CHLORIDE (BEAKER) (test 104 meq/L 98-107 yrrn=691) CO2 (BEAKER) (test 23 meq/L 22-29 wkkt=069) BLOOD UREA NITROGEN 27 mg/dL 7-21 (BEAKER) (test dfvp=027) CREATININE (BEAKER) (test 1.28 mg/dL 0.57-1.25 fxxi=811) GLUCOSE RANDOM (BEAKER) 123 mg/dL 70-105 (test fuep=090) CALCIUM (BEAKER) (test 8.4 mg/dL 8.4-10.2 akrm=540) EGFR (BEAKER) (test 55 mL/min/1.73 sq m ESTIMATED GFR IS NOT zldc=4003) ACCURATE CREATININE CLEARANCE IN PREDICTING GLOMERULAR FILTRATION RATE. ESTIMATED GFR IS NOT APPLICABLE FOR DIALYSIS PATIENTS. POCT-GLUCOSE [id number] 05:42:00 Test Item Value Reference Range Comments POC-GLUCOSE METER (BEAKER) 132 mg/dL 70-110 TESTED AT [facility] [address] [facility] (test gfhq=2545) [facility] [address] CBC W/PLT COUNT & AUTO [id number] 05:39:00 Test Item Value Reference Range Comments WHITE BLOOD CELL COUNT (BEAKER) (test sjya=454) 8.6 K/ L 3.5-10.5 RED BLOOD CELL COUNT (BEAKER) (test opho=693) 2.69 M/ L 4.63-6.08 HEMOGLOBIN (BEAKER) (test frdc=704) 8.3 GM/DL 13.7-17.5 HEMATOCRIT (BEAKER) (test ezgm=358) 27.6 % 40.1-51.0 MEAN CORPUSCULAR VOLUME (BEAKER) (test duex=965) 102.6 fL 79.0-92.2 MEAN CORPUSCULAR HEMOGLOBIN (BEAKER) (test 30.9 pg 25.7-32.2 ubnl=483) MEAN CORPUSCULAR HEMOGLOBIN CONC (BEAKER) (test 30.1 GM/DL 32.3-36.5 jkzc=614) RED CELL DISTRIBUTION WIDTH (BEAKER) (test 16.6 % 11.6-14.4 wcml=089) PLATELET COUNT (BEAKER) (test jjzx=049) 407 K/CU MM 150-450 MEAN PLATELET VOLUME (BEAKER) (test zygh=111) 9.4 fL 9.4-12.4 NUCLEATED RED BLOOD CELLS (BEAKER) (test 0 /100 WBC 0-0 jsgg=777) NEUTROPHILS RELATIVE PERCENT (BEAKER) (test 76 % zgvl=562) LYMPHOCYTES RELATIVE PERCENT (BEAKER) (test 11 % ifpe=930) MONOCYTES RELATIVE PERCENT (BEAKER) (test 7 % mdoh=796) EOSINOPHILS RELATIVE PERCENT (BEAKER) (test 6 % beqk=289) BASOPHILS RELATIVE PERCENT (BEAKER) (test 1 % zzxg=157) NEUTROPHILS ABSOLUTE COUNT (BEAKER) (test 6.51 K/ L 1.78-5.38 qhec=483) LYMPHOCYTES ABSOLUTE COUNT (BEAKER) (test 0.90 K/ L 1.32-3.57 mlxq=248) MONOCYTES ABSOLUTE COUNT (BEAKER) (test 0.58 K/ L 0.30-0.82 gixn=037) EOSINOPHILS ABSOLUTE COUNT (BEAKER) (test 0.51 K/ L 0.04-0.54 hggz=992) BASOPHILS ABSOLUTE COUNT (BEAKER) (test 0.04 K/ L 0.01-0.08 eweq=844) IMMATURE GRANULOCYTES-RELATIVE PERCENT (BEAKER) 1 % 0-1 (test avat=7486) POCT-GLUCOSE [id number] 20:21:00 Test Item Value Reference Range Comments POC-GLUCOSE METER (BEAKER) 168 mg/dL 70-110 TESTED AT [address] (test svhy=3938) [place] [id number] POCT-GLUCOSE [id number] 17:12:00 Test Item Value Reference Range Comments POC-GLUCOSE METER (BEAKER) 149 mg/dL 70-110 TESTED AT [address] (test zuyx=2425) [facility] [address] POCT-GLUCOSE [id number] 11:46:00 Test Item Value Reference Range Comments POC-GLUCOSE METER (BEAKER) 138 mg/dL 70-110 TESTED AT [address] (test dlpl=2394) [facility] [address] BASIC METABOLIC [id number] 08:56:00 Test Item Value Reference Range Comments SODIUM (BEAKER) (test 137 meq/L 136-145 swqf=114) POTASSIUM (BEAKER) (test 4.0 meq/L 3.5-5.1 chcw=169) CHLORIDE (BEAKER) (test 106 meq/L 98-107 ihhf=204) CO2 (BEAKER) (test 22 meq/L 22-29 xnih=256) BLOOD UREA NITROGEN 28 mg/dL 7-21 (BEAKER) (test hani=858) CREATININE (BEAKER) (test 1.34 mg/dL 0.57-1.25 psrs=162) GLUCOSE RANDOM (BEAKER) 124 mg/dL 70-105 (test mkgk=826) CALCIUM (BEAKER) (test 8.2 mg/dL 8.4-10.2 cekg=621) EGFR (BEAKER) (test 52 mL/min/1.73 sq m ESTIMATED GFR IS NOT iqnl=6821) ACCURATE CREATININE CLEARANCE IN PREDICTING GLOMERULAR FILTRATION RATE. ESTIMATED GFR IS NOT APPLICABLE FOR DIALYSIS PATIENTS. POCT-GLUCOSE [id number] 05:44:00 Test Item Value Reference Range Comments POC-GLUCOSE METER (BEAKER) 139 mg/dL 70-110 TESTED AT [address] (test msyl=2527) [facility] [address] POCT-GLUCOSE [id number] 20:33:00 Test Item Value Reference Range Comments POC-GLUCOSE METER (BEAKER) 145 mg/dL 70-110 TESTED AT [address] (test jjet=9095) [facility] [address] POCT-GLUCOSE [id number] 16:39:00 Test Item Value Reference Range Comments POC-GLUCOSE METER (BEAKER) 177 mg/dL 70-110 TESTED AT [address] (test lmwz=0752) [facility] [address] POCT-GLUCOSE [id number] 12:01:00 Test Item Value Reference Range Comments POC-GLUCOSE METER (BEAKER) 200 mg/dL 70-110 TESTED AT [address] (test xbcf=1986) [facility] [address] POCT-GLUCOSE [id number] 05:56:00 Test Item Value Reference Range Comments POC-GLUCOSE METER (BEAKER) 167 mg/dL 70-110 TESTED AT [address] (test arrj=4484) [facility] [address] POCT-GLUCOSE [id number] 20:34:00 Test Item Value Reference Range Comments POC-GLUCOSE METER (BEAKER) 217 mg/dL 70-110 TESTED AT [address] (test fdqr=3180) [facility] [address] POCT-GLUCOSE [id number] 18:24:00 Test Item Value Reference Range Comments POC-GLUCOSE METER (BEAKER) 190 mg/dL 70-110 TESTED AT [address] (test fhkq=6354) [facility] [address] POCT-GLUCOSE [id number] 16:22:00 Test Item Value Reference Range Comments POC-GLUCOSE METER (BEAKER) 233 mg/dL 70-110 TESTED AT [address] (test mnnr=6079) [facility] [address] POCT-GLUCOSE [id number] 12:13:00 Test Item Value Reference Range Comments POC-GLUCOSE METER (BEAKER) 235 mg/dL 70-110 TESTED AT [facility] [address] [facility] (test qron=5521) [facility] [address] RAD, CHEST, 2 [id number] 09:16:00Reason for exam:->sobFINAL REPORT Two frontal and one lateral chest images compared to August 14 Discussion: Cardiomegaly and pulmonary congestion are present. I could not exclude a small right effusion although pleural thickening would have a similar appearance. No pneumothorax. IMPRESSIONS: No change Signed: Taty Osborne Verified Date/Time: 08/15/2017 09:16:20 Reading Location: [facility] Radiology Reading Room BASIC METABOLIC [id number] 06:45:00 Test Item Value Reference Range Comments SODIUM (BEAKER) (test 136 meq/L 136-145 gdtj=679) POTASSIUM (BEAKER) (test 4.3 meq/L 3.5-5.1 voor=645) CHLORIDE (BEAKER) (test 106 meq/L 98-107 hzjf=818) CO2 (BEAKER) (test 21 meq/L 22-29 adhf=707) BLOOD UREA NITROGEN 32 mg/dL 7-21 (BEAKER) (test upyx=329) CREATININE (BEAKER) (test 1.41 mg/dL 0.57-1.25 tlhm=140) GLUCOSE RANDOM (BEAKER) 127 mg/dL 70-105 (test lfbj=043) CALCIUM (BEAKER) (test 8.3 mg/dL 8.4-10.2 iwkt=621) EGFR (BEAKER) (test 49 mL/min/1.73 sq m ESTIMATED GFR IS NOT pkxr=1084) ACCURATE CREATININE CLEARANCE IN PREDICTING GLOMERULAR FILTRATION RATE. ESTIMATED GFR IS NOT APPLICABLE FOR DIALYSIS PATIENTS. CBC W/PLT COUNT & AUTO [id number] 05:31:00 Test Item Value Reference Range Comments WHITE BLOOD CELL COUNT (BEAKER) (test syhd=475) 11.0 K/ L 3.5-10.5 RED BLOOD CELL COUNT (BEAKER) (test vqqh=662) 2.56 M/ L 4.63-6.08 HEMOGLOBIN (BEAKER) (test xuor=814) 7.9 GM/DL 13.7-17.5 HEMATOCRIT (BEAKER) (test jrgv=664) 26.4 % 40.1-51.0 MEAN CORPUSCULAR VOLUME (BEAKER) (test ihig=011) 103.1 fL 79.0-92.2 MEAN CORPUSCULAR HEMOGLOBIN (BEAKER) (test 30.9 pg 25.7-32.2 ykte=031) MEAN CORPUSCULAR HEMOGLOBIN CONC (BEAKER) (test 29.9 GM/DL 32.3-36.5 upav=056) RED CELL DISTRIBUTION WIDTH (BEAKER) (test 16.3 % 11.6-14.4 mssw=528) PLATELET COUNT (BEAKER) (test ecnq=275) 470 K/CU MM 150-450 MEAN PLATELET VOLUME (BEAKER) (test fjve=168) 9.7 fL 9.4-12.4 NUCLEATED RED BLOOD CELLS (BEAKER) (test 0 /100 WBC 0-0 zucy=033) NEUTROPHILS RELATIVE PERCENT (BEAKER) (test 79 % ybtp=697) LYMPHOCYTES RELATIVE PERCENT (BEAKER) (test 9 % sott=363) MONOCYTES RELATIVE PERCENT (BEAKER) (test 7 % acsu=583) EOSINOPHILS RELATIVE PERCENT (BEAKER) (test 5 % fzot=634) BASOPHILS RELATIVE PERCENT (BEAKER) (test 1 % nlyp=496) NEUTROPHILS ABSOLUTE COUNT (BEAKER) (test 8.65 K/ L 1.78-5.38 qmux=503) LYMPHOCYTES ABSOLUTE COUNT (BEAKER) (test 0.99 K/ L 1.32-3.57 wara=847) MONOCYTES ABSOLUTE COUNT (BEAKER) (test 0.76 K/ L 0.30-0.82 rtjw=663) EOSINOPHILS ABSOLUTE COUNT (BEAKER) (test 0.51 K/ L 0.04-0.54 pdjj=098) BASOPHILS ABSOLUTE COUNT (BEAKER) (test 0.06 K/ L 0.01-0.08 okgs=746) IMMATURE GRANULOCYTES-RELATIVE PERCENT (BEAKER) 1 % 0-1 (test clpo=5272) POCT-GLUCOSE [id number] 03:46:00 Test Item Value Reference Range Comments POC-GLUCOSE METER (BEAKER) 235 mg/dL 70-110 TESTED AT [address] (test pohn=2758) [facility] [address] POCT-GLUCOSE [id number] 20:54:00 Test Item Value Reference Range Comments POC-GLUCOSE METER (BEAKER) 205 mg/dL 70-110 TESTED AT [address] (test esev=6670) [place] [id number] RAD, CHEST, 1 VIEW, NON [id number] 15:21:00Reason for exam:->sobShould this be performed at [...] Mcdanielseport Verified Date/Time: 08/14/2017 15:21:32 Reading Location: [facility] Radiology Reading Room POCT- GLUCOSE [id number] 13:31:00 Test Item Value Reference Range Comments POC-GLUCOSE METER (BEAKER) 229 mg/dL 70-110 TESTED AT [address] (test icyu=2881) [facility] [address] POCT-GLUCOSE [id number] 10:21:00 Test Item Value Reference Range Comments POC-GLUCOSE METER (BEAKER) 189 mg/dL 70-110 TESTED AT [address] (test jmib=7397) [facility] [address] [id number] 04:50:00 Test Item Value Reference Range Comments MAGNESIUM (BEAKER) (test kuud=996) 1.6 mg/dL 1.6-2.6 BASIC METABOLIC [id number] 04:50:00 Test Item Value Reference Range Comments SODIUM (BEAKER) (test 132 meq/L 136-145 fzgc=904) POTASSIUM (BEAKER) (test 4.2 meq/L 3.5-5.1 ejzf=737) CHLORIDE (BEAKER) (test 105 meq/L 98-107 caqw=229) CO2 (BEAKER) (test 20 meq/L 22-29 xmta=765) BLOOD UREA NITROGEN 36 mg/dL 7-21 (BEAKER) (test gifb=598) CREATININE (BEAKER) (test 1.28 mg/dL 0.57-1.25 nqaj=255) GLUCOSE RANDOM (BEAKER) 136 mg/dL 70-105 (test mpld=735) CALCIUM (BEAKER) (test 8.0 mg/dL 8.4-10.2 veip=889) EGFR (BEAKER) (test 55 mL/min/1.73 sq m ESTIMATED GFR IS NOT ayqt=6251) ACCURATE CREATININE CLEARANCE IN PREDICTING GLOMERULAR FILTRATION RATE. ESTIMATED GFR IS NOT APPLICABLE FOR DIALYSIS PATIENTS. CBC W/PLT COUNT & AUTO [id number] 04:34:00 Test Item Value Reference Range Comments WHITE BLOOD CELL COUNT (BEAKER) (test typu=230) 10.4 K/ L 3.5-10.5 RED BLOOD CELL COUNT (BEAKER) (test ovdk=681) 2.53 M/ L 4.63-6.08 HEMOGLOBIN (BEAKER) (test raci=437) 7.8 GM/DL 13.7-17.5 HEMATOCRIT (BEAKER) (test gqjx=145) 25.9 % 40.1-51.0 MEAN CORPUSCULAR VOLUME (BEAKER) (test atwy=502) 102.4 fL 79.0-92.2 MEAN CORPUSCULAR HEMOGLOBIN (BEAKER) (test 30.8 pg 25.7-32.2 vatj=755) MEAN CORPUSCULAR HEMOGLOBIN CONC (BEAKER) (test 30.1 GM/DL 32.3-36.5 kjkw=283) RED CELL DISTRIBUTION WIDTH (BEAKER) (test 15.9 % 11.6-14.4 lvkp=006) PLATELET COUNT (BEAKER) (test wacc=925) 479 K/CU MM 150-450 MEAN PLATELET VOLUME (BEAKER) (test lakc=624) 9.7 fL 9.4-12.4 NUCLEATED RED BLOOD CELLS (BEAKER) (test 0 /100 WBC 0-0 xhkc=267) NEUTROPHILS RELATIVE PERCENT (BEAKER) (test 78 % wgot=024) LYMPHOCYTES RELATIVE PERCENT (BEAKER) (test 9 % qgbl=372) MONOCYTES RELATIVE PERCENT (BEAKER) (test 7 % rzsv=744) EOSINOPHILS RELATIVE PERCENT (BEAKER) (test 5 % canx=574) BASOPHILS RELATIVE PERCENT (BEAKER) (test 1 % mplx=680) NEUTROPHILS ABSOLUTE COUNT (BEAKER) (test 8.06 K/ L 1.78-5.38 hgej=008) LYMPHOCYTES ABSOLUTE COUNT (BEAKER) (test 0.93 K/ L 1.32-3.57 gvwf=289) MONOCYTES ABSOLUTE COUNT (BEAKER) (test 0.68 K/ L 0.30-0.82 ysjx=487) EOSINOPHILS ABSOLUTE COUNT (BEAKER) (test 0.52 K/ L 0.04-0.54 qgjv=642) BASOPHILS ABSOLUTE COUNT (BEAKER) (test 0.07 K/ L 0.01-0.08 dydo=623) IMMATURE GRANULOCYTES-RELATIVE PERCENT (BEAKER) 1 % 0-1 (test kkay=1512) POCT-GLUCOSE [id number] 21:22:00 Test Item Value Reference Range Comments POC-GLUCOSE METER (BEAKER) 232 mg/dL 70-110 TESTED AT [address] (test ukhj=6876) [place] [address] POCT-GLUCOSE [id number] 17:34:00 Test Item Value Reference Range Comments POC-GLUCOSE METER (BEAKER) 205 mg/dL 70-110 TESTED AT [address] (test lzzp=4003) [place] [address] POCT-GLUCOSE [id number] 08:22:00 Test Item Value Reference Range Comments POC-GLUCOSE METER (BEAKER) 163 mg/dL 70-110 TESTED AT [address] (test yqxf=9945) [place] [address] CBC W/PLT COUNT & AUTO [id number] 05:45:00 Test Item Value Reference Range Comments WHITE BLOOD CELL COUNT (BEAKER) (test inds=689) 9.6 K/ L 3.5-10.5 RED BLOOD CELL COUNT (BEAKER) (test dwvf=180) 2.63 M/ L 4.63-6.08 HEMOGLOBIN (BEAKER) (test rxle=154) 8.2 GM/DL 13.7-17.5 HEMATOCRIT (BEAKER) (test ocby=683) 27.0 % 40.1-51.0 MEAN CORPUSCULAR VOLUME (BEAKER) (test pmhk=409) 102.7 fL 79.0-92.2 MEAN CORPUSCULAR HEMOGLOBIN (BEAKER) (test 31.2 pg 25.7-32.2 dqlp=002) MEAN CORPUSCULAR HEMOGLOBIN CONC (BEAKER) (test 30.4 GM/DL 32.3-36.5 yuth=382) RED CELL DISTRIBUTION WIDTH (BEAKER) (test 15.8 % 11.6-14.4 awyg=894) PLATELET COUNT (BEAKER) (test xosq=744) 469 K/CU MM 150-450 MEAN PLATELET VOLUME (BEAKER) (test ycex=227) 9.4 fL 9.4-12.4 NUCLEATED RED BLOOD CELLS (BEAKER) (test 0 /100 WBC 0-0 zxlz=490) NEUTROPHILS RELATIVE PERCENT (BEAKER) (test 75 % mcve=513) LYMPHOCYTES RELATIVE PERCENT (BEAKER) (test 11 % eycl=172) MONOCYTES RELATIVE PERCENT (BEAKER) (test 7 % bxjd=889) EOSINOPHILS RELATIVE PERCENT (BEAKER) (test 6 % kzjw=135) BASOPHILS RELATIVE PERCENT (BEAKER) (test 1 % dvzb=694) NEUTROPHILS ABSOLUTE COUNT (BEAKER) (test 7.13 K/ L 1.78-5.38 vzif=118) LYMPHOCYTES ABSOLUTE COUNT (BEAKER) (test 1.03 K/ L 1.32-3.57 ucha=056) MONOCYTES ABSOLUTE COUNT (BEAKER) (test 0.71 K/ L 0.30-0.82 sjse=485) EOSINOPHILS ABSOLUTE COUNT (BEAKER) (test 0.57 K/ L 0.04-0.54 fgvr=438) BASOPHILS ABSOLUTE COUNT (BEAKER) (test 0.06 K/ L 0.01-0.08 rteg=169) IMMATURE GRANULOCYTES-RELATIVE PERCENT (BEAKER) 1 % 0-1 (test ndzm=4413) BASIC METABOLIC [id number] 05:43:00 Test Item Value Reference Range Comments SODIUM (BEAKER) (test 131 meq/L 136-145 rfjy=221) POTASSIUM (BEAKER) (test 4.2 meq/L 3.5-5.1 fsnn=711) CHLORIDE (BEAKER) (test 105 meq/L 98-107 ozta=326) CO2 (BEAKER) (test 21 meq/L 22-29 owau=222) BLOOD UREA NITROGEN 31 mg/dL 7-21 (BEAKER) (test ldrk=941) CREATININE (BEAKER) (test 1.32 mg/dL 0.57-1.25 xhpp=416) GLUCOSE RANDOM (BEAKER) 138 mg/dL 70-105 (test maki=230) CALCIUM (BEAKER) (test 8.0 mg/dL 8.4-10.2 tchj=540) EGFR (BEAKER) (test 53 mL/min/1.73 sq m ESTIMATED GFR IS NOT qqxr=2429) ACCURATE CREATININE CLEARANCE IN PREDICTING GLOMERULAR FILTRATION RATE. ESTIMATED GFR IS NOT APPLICABLE FOR DIALYSIS PATIENTS. POCT-GLUCOSE [id number] 21:11:00 Test Item Value Reference Range Comments POC-GLUCOSE METER (BEAKER) 201 mg/dL 70-110 TESTED AT [address] (test ywhz=6994) [place] [address] POCT-GLUCOSE [id number] 18:21:00 Test Item Value Reference Range Comments POC-GLUCOSE METER (BEAKER) 187 mg/dL 70-110 TESTED AT [address] (test hwhb=7790) [place] [address] POCT-GLUCOSE [id number] 13:12:00 Test Item Value Reference Range Comments POC-GLUCOSE METER (BEAKER) 162 mg/dL 70-110 TESTED AT [address] (test juzb=2301) [place] [address] POCT-GLUCOSE [id number] 08:08:00 Test Item Value Reference Range Comments POC-GLUCOSE METER (BEAKER) 138 mg/dL 70-110 TESTED AT [address] (test tyvs=5279) [place] [address] BASIC METABOLIC [id number] 06:47:00 Test Item Value Reference Range Comments SODIUM (BEAKER) (test 133 meq/L 136-145 atos=290) POTASSIUM (BEAKER) (test 4.8 meq/L 3.5-5.1 faye=557) CHLORIDE (BEAKER) (test 105 meq/L 98-107 oazv=055) CO2 (BEAKER) (test 20 meq/L 22-29 zafx=079) BLOOD UREA NITROGEN 31 mg/dL 7-21 (BEAKER) (test gvou=763) CREATININE (BEAKER) (test 1.35 mg/dL 0.57-1.25 uaqc=077) GLUCOSE RANDOM (BEAKER) 129 mg/dL 70-105 (test ltxk=514) CALCIUM (BEAKER) (test 7.9 mg/dL 8.4-10.2 haug=705) EGFR (BEAKER) (test 52 mL/min/1.73 sq m ESTIMATED GFR IS NOT bhgv=6782) ACCURATE CREATININE CLEARANCE IN PREDICTING GLOMERULAR FILTRATION RATE. ESTIMATED GFR IS NOT APPLICABLE FOR DIALYSIS PATIENTS. CBC W/PLT COUNT & AUTO [id number] 05:08:00 Test Item Value Reference Range Comments WHITE BLOOD CELL COUNT (BEAKER) (test dwyg=228) 10.4 K/ L 3.5-10.5 RED BLOOD CELL COUNT (BEAKER) (test ejic=866) 2.92 M/ L 4.63-6.08 HEMOGLOBIN (BEAKER) (test ztwi=131) 9.0 GM/DL 13.7-17.5 HEMATOCRIT (BEAKER) (test apwv=326) 29.7 % 40.1-51.0 MEAN CORPUSCULAR VOLUME (BEAKER) (test qfns=386) 101.7 fL 79.0-92.2 MEAN CORPUSCULAR HEMOGLOBIN (BEAKER) (test 30.8 pg 25.7-32.2 jadg=493) MEAN CORPUSCULAR HEMOGLOBIN CONC (BEAKER) (test 30.3 GM/DL 32.3-36.5 fhnk=044) RED CELL DISTRIBUTION WIDTH (BEAKER) (test 15.9 % 11.6-14.4 late=283) PLATELET COUNT (BEAKER) (test igqu=449) 537 K/CU MM 150-450 MEAN PLATELET VOLUME (BEAKER) (test jqxe=993) 9.7 fL 9.4-12.4 NUCLEATED RED BLOOD CELLS (BEAKER) (test 0 /100 WBC 0-0 oqrq=055) NEUTROPHILS RELATIVE PERCENT (BEAKER) (test 78 % szco=597) LYMPHOCYTES RELATIVE PERCENT (BEAKER) (test 9 % lwtw=028) MONOCYTES RELATIVE PERCENT (BEAKER) (test 7 % expf=894) EOSINOPHILS RELATIVE PERCENT (BEAKER) (test 5 % zxxn=754) BASOPHILS RELATIVE PERCENT (BEAKER) (test 1 % xtum=365) NEUTROPHILS ABSOLUTE COUNT (BEAKER) (test 8.09 K/ L 1.78-5.38 ffub=252) LYMPHOCYTES ABSOLUTE COUNT (BEAKER) (test 0.96 K/ L 1.32-3.57 fhry=554) MONOCYTES ABSOLUTE COUNT (BEAKER) (test 0.68 K/ L 0.30-0.82 vqmm=506) EOSINOPHILS ABSOLUTE COUNT (BEAKER) (test 0.52 K/ L 0.04-0.54 mzvj=577) BASOPHILS ABSOLUTE COUNT (BEAKER) (test 0.05 K/ L 0.01-0.08 snru=649) IMMATURE GRANULOCYTES-RELATIVE PERCENT (BEAKER) 1 % 0-1 (test troj=8237) POCT-GLUCOSE [id number] 21:13:00 Test Item Value Reference Range Comments POC-GLUCOSE METER (BEAKER) 169 mg/dL 70-110 TESTED AT [address] (test ythk=3151) [place] [id number] RAD, CHEST, 1 VIEW, NON [id number] 17:14:00Reason for exam:->Chest Tube RemovalShould this be [...] MDReport Verified Date/Time: 08/11/2017 17:14:23 Reading Location: [address] Radiology Reading Room POCT-GLUCOSE [id number] 17:09:00 Test Item Value Reference Range Comments POC-GLUCOSE METER (BEAKER) 238 mg/dL 70-110 TESTED AT [address] (test gdry=3139) [facility] [address] RAD, CHEST, 1 VIEW, NON [id number] 13:25:00Reason for exam:->pl effusionShould this be performed at the bedside?->YesFINAL REPORT AP chest HISTORY: Pleural effusion COMPARISON: 08/05/2017 IMPRESSION :Stable cardiac silhouette enlargement. Layering left effusion unchanged. Possible small right effusion. No pneumothorax. Mild vascular congestion. Signed : Manuel Fraser MDReport Verified Date/Time: 08/11/2017 13:25:17 Reading Location: [facility] Reading Room POCT-GLUCOSE [id number] 12:07:00 Test Item Value Reference Range Comments POC-GLUCOSE METER (BEAKER) 244 mg/dL 70-110 TESTED AT [address] (test qrup=6180) [facility] [address] POCT-GLUCOSE [id number] 08:49:00 Test Item Value Reference Range Comments POC-GLUCOSE METER (BEAKER) 199 mg/dL 70-110 TESTED AT [address] (test aktr=6054) [facility] [address] BASIC METABOLIC [id number] 07:01:00 Test Item Value Reference Range Comments SODIUM (BEAKER) (test 133 meq/L 136-145 auqg=718) POTASSIUM (BEAKER) (test 4.6 meq/L 3.5-5.1 uhnt=015) CHLORIDE (BEAKER) (test 105 meq/L 98-107 rkez=050) CO2 (BEAKER) (test 20 meq/L 22-29 akqo=511) BLOOD UREA NITROGEN 33 mg/dL 7-21 (BEAKER) (test mdiu=201) CREATININE (BEAKER) (test 1.44 mg/dL 0.57-1.25 yloq=265) GLUCOSE RANDOM (BEAKER) 132 mg/dL 70-105 (test wgjf=888) CALCIUM (BEAKER) (test 8.1 mg/dL 8.4-10.2 dkzx=317) EGFR (BEAKER) (test 48 mL/min/1.73 sq m ESTIMATED GFR IS NOT byev=0799) ACCURATE CREATININE CLEARANCE IN PREDICTING GLOMERULAR FILTRATION RATE. ESTIMATED GFR IS NOT APPLICABLE FOR DIALYSIS PATIENTS. CBC W/PLT COUNT & AUTO [id number] 05:42:00 Test Item Value Reference Range Comments WHITE BLOOD CELL COUNT (BEAKER) (test yutw=604) 10.9 K/ L 3.5-10.5 RED BLOOD CELL COUNT (BEAKER) (test ttjj=306) 2.84 M/ L 4.63-6.08 HEMOGLOBIN (BEAKER) (test ujaa=923) 8.9 GM/DL 13.7-17.5 HEMATOCRIT (BEAKER) (test ufhr=321) 30.0 % 40.1-51.0 MEAN CORPUSCULAR VOLUME (BEAKER) (test hffh=703) 105.6 fL 79.0-92.2 MEAN CORPUSCULAR HEMOGLOBIN (BEAKER) (test 31.3 pg 25.7-32.2 ceqs=405) MEAN CORPUSCULAR HEMOGLOBIN CONC (BEAKER) (test 29.7 GM/DL 32.3-36.5 grgq=794) RED CELL DISTRIBUTION WIDTH (BEAKER) (test 15.8 % 11.6-14.4 rzao=201) PLATELET COUNT (BEAKER) (test oloe=293) 528 K/CU MM 150-450 MEAN PLATELET VOLUME (BEAKER) (test ntic=666) 10.1 fL 9.4-12.4 NUCLEATED RED BLOOD CELLS (BEAKER) (test 0 /100 WBC 0-0 pgtm=314) NEUTROPHILS RELATIVE PERCENT (BEAKER) (test 77 % fjnq=443) LYMPHOCYTES RELATIVE PERCENT (BEAKER) (test 9 % kfvk=592) MONOCYTES RELATIVE PERCENT (BEAKER) (test 7 % msja=424) EOSINOPHILS RELATIVE PERCENT (BEAKER) (test 5 % ebqk=818) BASOPHILS RELATIVE PERCENT (BEAKER) (test 1 % ssqa=862) NEUTROPHILS ABSOLUTE COUNT (BEAKER) (test 8.44 K/ L 1.78-5.38 bwns=212) LYMPHOCYTES ABSOLUTE COUNT (BEAKER) (test 1.01 K/ L 1.32-3.57 dabk=340) MONOCYTES ABSOLUTE COUNT (BEAKER) (test 0.75 K/ L 0.30-0.82 obck=037) EOSINOPHILS ABSOLUTE COUNT (BEAKER) (test 0.53 K/ L 0.04-0.54 dojs=331) BASOPHILS ABSOLUTE COUNT (BEAKER) (test 0.08 K/ L 0.01-0.08 upbv=712) IMMATURE GRANULOCYTES-RELATIVE PERCENT (BEAKER) 1 % 0-1 (test dfnq=9536) POCT-GLUCOSE [id number] 21:27:00 Test Item Value Reference Range Comments POC-GLUCOSE METER (BEAKER) 193 mg/dL 70-110 TESTED AT [address] (test ylbs=4078) [facility] [address] POCT-GLUCOSE [id number] 17:12:00 Test Item Value Reference Range Comments POC-GLUCOSE METER (BEAKER) 195 mg/dL 70-110 TESTED AT [address] (test uqzx=7025) [facility] [address] POCT-GLUCOSE [id number] 12:43:00 Test Item Value Reference Range Comments POC-GLUCOSE METER (BEAKER) 215 mg/dL 70-110 TESTED AT [address] (test jwyl=5394) [facility] [address] POCT-GLUCOSE [id number] 07:30:00 Test Item Value Reference Range Comments POC-GLUCOSE METER (BEAKER) 160 mg/dL 70-110 TESTED AT [address] (test zoal=4742) [facility] [address] CBC W/PLT COUNT & AUTO [id number] 05:56:00 Test Item Value Reference Range Comments WHITE BLOOD CELL COUNT 10.0 K/ L 3.5-10.5 (BEAKER) (test kjfa=751) RED BLOOD CELL COUNT (BEAKER) 2.96 M/ L 4.63-6.08 (test onra=654) HEMOGLOBIN (BEAKER) (test 9.1 GM/DL 13.7-17.5 uygi=896) HEMATOCRIT (BEAKER) (test 30.1 % 40.1-51.0 jywm=338) MEAN CORPUSCULAR VOLUME 101.7 fL 79.0-92.2 (BEAKER) (test cfun=020) MEAN CORPUSCULAR HEMOGLOBIN 30.7 pg 25.7-32.2 (BEAKER) (test vtxa=005) MEAN CORPUSCULAR HEMOGLOBIN 30.2 GM/DL 32.3-36.5 CONC (BEAKER) (test mbfv=614) RED CELL DISTRIBUTION WIDTH 15.7 % 11.6-14.4 (BEAKER) (test halg=609) PLATELET COUNT (BEAKER) (test 510 K/CU MM 150-450 Discordant PLT result anxp=449) Compared to previous one, Clinical correlation required. MEAN PLATELET VOLUME (BEAKER) 10.0 fL 9.4-12.4 (test fxax=505) NUCLEATED RED BLOOD CELLS 0 /100 WBC 0-0 (BEAKER) (test heuv=644) NEUTROPHILS RELATIVE PERCENT 76 % (BEAKER) (test rbku=313) LYMPHOCYTES RELATIVE PERCENT 10 % (BEAKER) (test hetl=515) MONOCYTES RELATIVE PERCENT 8 % (BEAKER) (test szwp=113) EOSINOPHILS RELATIVE PERCENT 5 % (BEAKER) (test jwdc=894) BASOPHILS RELATIVE PERCENT 1 % (BEAKER) (test zjkp=089) NEUTROPHILS ABSOLUTE COUNT 7.55 K/ L 1.78-5.38 (BEAKER) (test cycz=281) LYMPHOCYTES ABSOLUTE COUNT 1.01 K/ L 1.32-3.57 (BEAKER) (test wyys=616) MONOCYTES ABSOLUTE COUNT 0.78 K/ L 0.30-0.82 (BEAKER) (test fzrf=611) EOSINOPHILS ABSOLUTE COUNT 0.48 K/ L 0.04-0.54 (BEAKER) (test qwxm=197) BASOPHILS ABSOLUTE COUNT 0.06 K/ L 0.01-0.08 (BEAKER) (test qpta=977) IMMATURE 1 % 0-1 GRANULOCYTES-RELATIVE PERCENT (BEAKER) (test mzrg=7859) BASIC METABOLIC [id number] 05:42:00 Test Item Value Reference Range Comments SODIUM (BEAKER) (test 132 meq/L 136-145 fvor=636) POTASSIUM (BEAKER) (test 4.5 meq/L 3.5-5.1 ejde=219) CHLORIDE (BEAKER) (test 104 meq/L 98-107 brlb=546) CO2 (BEAKER) (test 19 meq/L 22-29 woko=067) BLOOD UREA NITROGEN 30 mg/dL 7-21 (BEAKER) (test wkud=238) CREATININE (BEAKER) (test 1.32 mg/dL 0.57-1.25 jpyk=673) GLUCOSE RANDOM (BEAKER) 131 mg/dL 70-105 (test skhx=696) CALCIUM (BEAKER) (test 7.9 mg/dL 8.4-10.2 jgwg=703) EGFR (BEAKER) (test 53 mL/min/1.73 sq m ESTIMATED GFR IS NOT ojso=5237) ACCURATE CREATININE CLEARANCE IN PREDICTING GLOMERULAR FILTRATION RATE. ESTIMATED GFR IS NOT APPLICABLE FOR DIALYSIS PATIENTS. POCT-GLUCOSE [id number] 21:16:00 Test Item Value Reference Range Comments POC-GLUCOSE METER (BEAKER) 230 mg/dL 70-110 TESTED AT [address] (test mdnk=0463) [place] [address] POCT-GLUCOSE [id number] 19:38:00 Test Item Value Reference Range Comments POC-GLUCOSE METER (BEAKER) 239 mg/dL 70-110 TESTED AT [address] (test wqtm=9278) [place] [address] BLOOD [id number] 18:00:00 Test Item Value Reference Range Comments CULTURE (BEAKER) (test hxmy=6517) No growth in 5 days BLOOD [id number] 18:00:00 Test Item Value Reference Range Comments CULTURE (BEAKER) (test oduo=2440) No growth in 5 days POCT-GLUCOSE [id number] 11:57:00 Test Item Value Reference Range Comments POC-GLUCOSE METER (BEAKER) 203 mg/dL 70-110 TESTED AT [address] (test giru=2896) [place] [address] POCT-GLUCOSE [id number] 08:50:00 Test Item Value Reference Range Comments POC-GLUCOSE METER (BEAKER) 140 mg/dL 70-110 TESTED AT [address] (test vwxg=5527) [place] [address] BASIC METABOLIC [id number] 05:31:00 Test Item Value Reference Range Comments SODIUM (BEAKER) (test 134 meq/L 136-145 ltup=778) POTASSIUM (BEAKER) (test 4.7 meq/L 3.5-5.1 shrx=176) CHLORIDE (BEAKER) (test 104 meq/L 98-107 pvuv=207) CO2 (BEAKER) (test 24 meq/L 22-29 dwkj=057) BLOOD UREA NITROGEN 29 mg/dL 7-21 (BEAKER) (test hjdj=362) CREATININE (BEAKER) (test 1.38 mg/dL 0.57-1.25 qdej=025) GLUCOSE RANDOM (BEAKER) 139 mg/dL 70-105 (test izac=433) CALCIUM (BEAKER) (test 8.1 mg/dL 8.4-10.2 oeqx=944) EGFR (BEAKER) (test 50 mL/min/1.73 sq m ESTIMATED GFR IS NOT oqll=7398) ACCURATE CREATININE CLEARANCE IN PREDICTING GLOMERULAR FILTRATION RATE. ESTIMATED GFR IS NOT APPLICABLE FOR DIALYSIS PATIENTS. CBC W/PLT COUNT & AUTO [id number] 05:08:00 Test Item Value Reference Range Comments WHITE BLOOD CELL COUNT (BEAKER) (test przz=807) 11.7 K/ L 3.5-10.5 RED BLOOD CELL COUNT (BEAKER) (test jbys=033) 3.06 M/ L 4.63-6.08 HEMOGLOBIN (BEAKER) (test uvsi=013) 9.8 GM/DL 13.7-17.5 HEMATOCRIT (BEAKER) (test jeih=661) 31.3 % 40.1-51.0 MEAN CORPUSCULAR VOLUME (BEAKER) (test kiyx=898) 102.3 fL 79.0-92.2 MEAN CORPUSCULAR HEMOGLOBIN (BEAKER) (test 32.0 pg 25.7-32.2 pfbd=441) MEAN CORPUSCULAR HEMOGLOBIN CONC (BEAKER) (test 31.3 GM/DL 32.3-36.5 fqhk=920) RED CELL DISTRIBUTION WIDTH (BEAKER) (test 15.5 % 11.6-14.4 ntka=493) PLATELET COUNT (BEAKER) (test xwlg=218) 576 K/CU MM 150-450 MEAN PLATELET VOLUME (BEAKER) (test vqxm=520) 9.8 fL 9.4-12.4 NUCLEATED RED BLOOD CELLS (BEAKER) (test 0 /100 WBC 0-0 ccfn=278) NEUTROPHILS RELATIVE PERCENT (BEAKER) (test 78 % ksgg=439) LYMPHOCYTES RELATIVE PERCENT (BEAKER) (test 8 % gzzn=167) MONOCYTES RELATIVE PERCENT (BEAKER) (test 6 % puhz=435) EOSINOPHILS RELATIVE PERCENT (BEAKER) (test 5 % uzcl=933) BASOPHILS RELATIVE PERCENT (BEAKER) (test 1 % djwh=992) NEUTROPHILS ABSOLUTE COUNT (BEAKER) (test 9.20 K/ L 1.78-5.38 qxiu=826) LYMPHOCYTES ABSOLUTE COUNT (BEAKER) (test 0.98 K/ L 1.32-3.57 bulf=689) MONOCYTES ABSOLUTE COUNT (BEAKER) (test 0.71 K/ L 0.30-0.82 mmqc=007) EOSINOPHILS ABSOLUTE COUNT (BEAKER) (test 0.60 K/ L 0.04-0.54 pebt=481) BASOPHILS ABSOLUTE COUNT (BEAKER) (test 0.06 K/ L 0.01-0.08 xfku=238) IMMATURE GRANULOCYTES-RELATIVE PERCENT (BEAKER) 2 % 0-1 (test dwom=7714) POCT-GLUCOSE [id number] 21:11:00 Test Item Value Reference Range Comments POC-GLUCOSE METER (BEAKER) 195 mg/dL 70-110 TESTED AT [address] (test yqpf=0276) [facility] [address] POCT-GLUCOSE [id number] 17:47:00 Test Item Value Reference Range Comments POC-GLUCOSE METER (BEAKER) 175 mg/dL 70-110 TESTED AT [address] (test caez=5911) [facility] [address] POCT-GLUCOSE [id number] 12:31:00 Test Item Value Reference Range Comments POC-GLUCOSE METER (BEAKER) 219 mg/dL 70-110 TESTED AT [address] (test lqcb=4474) [facility] [address] [id number] 10:59:00 Test Item Value Reference Range Comments MAGNESIUM (BEAKER) (test tizc=046) 1.9 mg/dL 1.6-2.6 BASIC METABOLIC [id number] 10:59:00 Test Item Value Reference Range Comments SODIUM (BEAKER) (test 134 meq/L 136-145 vphv=046) POTASSIUM (BEAKER) (test 4.4 meq/L 3.5-5.1 icgj=968) CHLORIDE (BEAKER) (test 104 meq/L 98-107 oefi=018) CO2 (BEAKER) (test 23 meq/L 22-29 vbxi=219) BLOOD UREA NITROGEN 29 mg/dL 7-21 (BEAKER) (test irec=935) CREATININE (BEAKER) (test 1.54 mg/dL 0.57-1.25 yaks=208) GLUCOSE RANDOM (BEAKER) 156 mg/dL 70-105 (test kqzm=282) CALCIUM (BEAKER) (test 8.1 mg/dL 8.4-10.2 vhpa=191) EGFR (BEAKER) (test 44 mL/min/1.73 sq m ESTIMATED GFR IS NOT knro=1407) ACCURATE CREATININE CLEARANCE IN PREDICTING GLOMERULAR FILTRATION RATE. ESTIMATED GFR IS NOT APPLICABLE FOR DIALYSIS PATIENTS. POCT-GLUCOSE [id number] 08:13:00 Test Item Value Reference Range Comments POC-GLUCOSE METER (BEAKER) 159 mg/dL 70-110 TESTED AT [facility] [address] [facility] (test ovvo=9244) [facility] [id number] CBC W/PLT COUNT & AUTO [id number] 05:28:00 Test Item Value Reference Range Comments WHITE BLOOD CELL COUNT (BEAKER) (test ztuf=811) 13.8 K/ L 3.5-10.5 RED BLOOD CELL COUNT (BEAKER) (test gunj=180) 2.68 M/ L 4.63-6.08 HEMOGLOBIN (BEAKER) (test bdaa=023) 8.3 GM/DL 13.7-17.5 HEMATOCRIT (BEAKER) (test widy=014) 27.7 % 40.1-51.0 MEAN CORPUSCULAR VOLUME (BEAKER) (test styf=934) 103.4 fL 79.0-92.2 MEAN CORPUSCULAR HEMOGLOBIN (BEAKER) (test 31.0 pg 25.7-32.2 zybd=367) MEAN CORPUSCULAR HEMOGLOBIN CONC (BEAKER) (test 30.0 GM/DL 32.3-36.5 kunk=193) RED CELL DISTRIBUTION WIDTH (BEAKER) (test 15.6 % 11.6-14.4 bczq=449) PLATELET COUNT (BEAKER) (test ikey=459) 541 K/CU MM 150-450 MEAN PLATELET VOLUME (BEAKER) (test uxok=543) 11.0 fL 9.4-12.4 NUCLEATED RED BLOOD CELLS (BEAKER) (test 0 /100 WBC 0-0 tmur=855) NEUTROPHILS RELATIVE PERCENT (BEAKER) (test 79 % sbcj=752) LYMPHOCYTES RELATIVE PERCENT (BEAKER) (test 8 % xkrp=485) MONOCYTES RELATIVE PERCENT (BEAKER) (test 7 % nfdi=511) EOSINOPHILS RELATIVE PERCENT (BEAKER) (test 4 % wtez=395) BASOPHILS RELATIVE PERCENT (BEAKER) (test 1 % zhqv=166) NEUTROPHILS ABSOLUTE COUNT (BEAKER) (test 10.87 K/ L 1.78-5.38 xnvw=856) LYMPHOCYTES ABSOLUTE COUNT (BEAKER) (test 1.05 K/ L 1.32-3.57 kpug=881) MONOCYTES ABSOLUTE COUNT (BEAKER) (test 0.91 K/ L 0.30-0.82 njdi=748) EOSINOPHILS ABSOLUTE COUNT (BEAKER) (test 0.61 K/ L 0.04-0.54 txhq=922) BASOPHILS ABSOLUTE COUNT (BEAKER) (test 0.09 K/ L 0.01-0.08 nhin=376) IMMATURE GRANULOCYTES-RELATIVE PERCENT (BEAKER) 2 % 0-1 (test zyge=0756) POCT-GLUCOSE [id number] 21:07:00 Test Item Value Reference Range Comments POC-GLUCOSE METER (BEAKER) 201 mg/dL 70-110 TESTED AT [address] (test wped=8807) [place] [address] POCT-GLUCOSE [id number] 17:02:00 Test Item Value Reference Range Comments POC-GLUCOSE METER (BEAKER) 229 mg/dL 70-110 TESTED AT [address] (test rbhs=8726) [place] [id number] POCT-GLUCOSE [id number] 12:10:00 Test Item Value Reference Range Comments POC-GLUCOSE METER (BEAKER) 225 mg/dL 70-110 TESTED AT [address] (test vqkj=5970) [place] [id number] URINE [id number] 08:57:00 Test Item Value Reference Range Comments CULTURE (BEAKER) (test bakv=4317) No growth GRAM STAIN RESULT (BEAKER) (test No WBCs lloy=3710) GRAM STAIN RESULT (BEAKER) (test No organisms seen dbvs=14589) POCT-GLUCOSE [id number] 07:40:00 Test Item Value Reference Range Comments POC-GLUCOSE METER (BEAKER) 207 mg/dL 70-110 TESTED [address] [address] (test ilyl=6913) [place] [address] [id number] 05:58:00 Test Item Value Reference Range Comments MAGNESIUM (BEAKER) (test omtv=704) 1.7 mg/dL 1.6-2.6 BASIC METABOLIC [id number] 05:58:00 Test Item Value Reference Range Comments SODIUM (BEAKER) (test 134 meq/L 136-145 tvxw=232) POTASSIUM (BEAKER) (test 4.3 meq/L 3.5-5.1 kozm=754) CHLORIDE (BEAKER) (test 104 meq/L 98-107 liny=293) CO2 (BEAKER) (test 22 meq/L 22-29 hszw=981) BLOOD UREA NITROGEN 29 mg/dL 7-21 (BEAKER) (test srlm=149) CREATININE (BEAKER) (test 1.39 mg/dL 0.57-1.25 melb=498) GLUCOSE RANDOM (BEAKER) 135 mg/dL 70-105 (test garv=714) CALCIUM (BEAKER) (test 8.2 mg/dL 8.4-10.2 juis=575) EGFR (BEAKER) (test 50 mL/min/1.73 sq m ESTIMATED GFR IS NOT ixrx=3640) ACCURATE CREATININE CLEARANCE IN PREDICTING GLOMERULAR FILTRATION RATE. ESTIMATED GFR IS NOT APPLICABLE FOR DIALYSIS PATIENTS. CBC W/PLT COUNT & AUTO [id number] 05:08:00 Test Item Value Reference Range Comments WHITE BLOOD CELL COUNT (BEAKER) (test qyca=230) 14.8 K/ L 3.5-10.5 RED BLOOD CELL COUNT (BEAKER) (test cldk=048) 3.11 M/ L 4.63-6.08 HEMOGLOBIN (BEAKER) (test gahc=270) 9.9 GM/DL 13.7-17.5 HEMATOCRIT (BEAKER) (test jlmo=160) 32.0 % 40.1-51.0 MEAN CORPUSCULAR VOLUME (BEAKER) (test vdws=805) 102.9 fL 79.0-92.2 MEAN CORPUSCULAR HEMOGLOBIN (BEAKER) (test 31.8 pg 25.7-32.2 ufkw=138) MEAN CORPUSCULAR HEMOGLOBIN CONC (BEAKER) (test 30.9 GM/DL 32.3-36.5 nhhi=803) RED CELL DISTRIBUTION WIDTH (BEAKER) (test 15.6 % 11.6-14.4 jxdw=824) PLATELET COUNT (BEAKER) (test mecj=693) 580 K/CU MM 150-450 MEAN PLATELET VOLUME (BEAKER) (test hkft=214) 10.3 fL 9.4-12.4 NUCLEATED RED BLOOD CELLS (BEAKER) (test 0 /100 WBC 0-0 vfpo=038) NEUTROPHILS RELATIVE PERCENT (BEAKER) (test 79 % nxvw=473) LYMPHOCYTES RELATIVE PERCENT (BEAKER) (test 8 % gqoj=592) MONOCYTES RELATIVE PERCENT (BEAKER) (test 6 % ltwn=296) EOSINOPHILS RELATIVE PERCENT (BEAKER) (test 4 % suat=876) BASOPHILS RELATIVE PERCENT (BEAKER) (test 1 % cacu=969) NEUTROPHILS ABSOLUTE COUNT (BEAKER) (test 11.68 K/ L 1.78-5.38 xalv=886) LYMPHOCYTES ABSOLUTE COUNT (BEAKER) (test 1.21 K/ L 1.32-3.57 hqex=988) MONOCYTES ABSOLUTE COUNT (BEAKER) (test 0.89 K/ L 0.30-0.82 lnbq=062) EOSINOPHILS ABSOLUTE COUNT (BEAKER) (test 0.61 K/ L 0.04-0.54 cdgg=779) BASOPHILS ABSOLUTE COUNT (BEAKER) (test 0.09 K/ L 0.01-0.08 pusk=322) IMMATURE GRANULOCYTES-RELATIVE PERCENT (BEAKER) 2 % 0-1 (test fnjs=0401) POCT-GLUCOSE [id number] 21:17:00 Test Item Value Reference Range Comments POC-GLUCOSE METER (BEAKER) 260 mg/dL 70-110 TESTED AT [address] (test dnmq=9438) [place] [address] POCT-GLUCOSE [id number] 17:10:00 Test Item Value Reference Range Comments POC-GLUCOSE METER (BEAKER) 190 mg/dL 70-110 TESTED AT [address] (test iusd=5608) [place] [address] POCT-GLUCOSE [id number] 12:17:00 Test Item Value Reference Range Comments POC-GLUCOSE METER (BEAKER) 241 mg/dL 70-110 TESTED AT [address] (test iybq=8088) [place] [address] CBC W/PLT COUNT & AUTO [id number] 08:29:00 Test Item Value Reference Range Comments WHITE BLOOD CELL COUNT (BEAKER) (test jhmw=040) 16.5 K/ L 3.5-10.5 RED BLOOD CELL COUNT (BEAKER) (test lwlx=907) 2.83 M/ L 4.63-6.08 HEMOGLOBIN (BEAKER) (test krru=469) 8.8 GM/DL 13.7-17.5 HEMATOCRIT (BEAKER) (test uimy=907) 28.8 % 40.1-51.0 MEAN CORPUSCULAR VOLUME (BEAKER) (test blpn=729) 101.8 fL 79.0-92.2 MEAN CORPUSCULAR HEMOGLOBIN (BEAKER) (test 31.1 pg 25.7-32.2 qlhv=339) MEAN CORPUSCULAR HEMOGLOBIN CONC (BEAKER) (test 30.6 GM/DL 32.3-36.5 hqvz=685) RED CELL DISTRIBUTION WIDTH (BEAKER) (test 15.4 % 11.6-14.4 ocxu=961) PLATELET COUNT (BEAKER) (test xnkv=549) 535 K/CU MM 150-450 MEAN PLATELET VOLUME (BEAKER) (test ndwp=905) 10.7 fL 9.4-12.4 NUCLEATED RED BLOOD CELLS (BEAKER) (test 1 /100 WBC 0-0 imps=623) NEUTROPHILS RELATIVE PERCENT (BEAKER) (test 78 % rwwm=623) LYMPHOCYTES RELATIVE PERCENT (BEAKER) (test 9 % enxm=238) MONOCYTES RELATIVE PERCENT (BEAKER) (test 7 % ocuu=113) EOSINOPHILS RELATIVE PERCENT (BEAKER) (test 3 % vjmt=193) BASOPHILS RELATIVE PERCENT (BEAKER) (test 0 % idaq=996) NEUTROPHILS ABSOLUTE COUNT (BEAKER) (test 12.77 K/ L 1.78-5.38 ttna=838) LYMPHOCYTES ABSOLUTE COUNT (BEAKER) (test 1.45 K/ L 1.32-3.57 tjyi=956) MONOCYTES ABSOLUTE COUNT (BEAKER) (test 1.12 K/ L 0.30-0.82 hgpw=833) EOSINOPHILS ABSOLUTE COUNT (BEAKER) (test 0.55 K/ L 0.04-0.54 liak=343) BASOPHILS ABSOLUTE COUNT (BEAKER) (test 0.07 K/ L 0.01-0.08 qobd=409) IMMATURE GRANULOCYTES-RELATIVE PERCENT (BEAKER) 3 % 0-1 (test kbiu=2577) (MANUAL DIFFERENTIAL)2017-08-06 08:29:00 Test Item Value Reference Range Comments TOTAL COUNTED (BEAKER) (test yjfm=7065) POCT-GLUCOSE [id number] 07:22:00 Test Item Value Reference Range Comments POC-GLUCOSE METER (BEAKER) 183 mg/dL 70-110 TESTED AT [address] (test ilfl=6036) [facility] [address] [id number] 06:21:00 Test Item Value Reference Range Comments MAGNESIUM (BEAKER) (test oelu=410) 1.9 mg/dL 1.6-2.6 BASIC METABOLIC [id number] 06:21:00 Test Item Value Reference Range Comments SODIUM (BEAKER) (test 134 meq/L 136-145 bduz=897) POTASSIUM (BEAKER) (test 3.8 meq/L 3.5-5.1 zqcg=133) CHLORIDE (BEAKER) (test 101 meq/L 98-107 hpvl=863) CO2 (BEAKER) (test 23 meq/L 22-29 hojr=623) BLOOD UREA NITROGEN 36 mg/dL 7-21 (BEAKER) (test qawf=934) CREATININE (BEAKER) (test 1.49 mg/dL 0.57-1.25 onxz=661) GLUCOSE RANDOM (BEAKER) 139 mg/dL 70-105 (test snhr=767) CALCIUM (BEAKER) (test 8.0 mg/dL 8.4-10.2 sszv=618) EGFR (BEAKER) (test 46 mL/min/1.73 sq m ESTIMATED GFR IS NOT stoo=7355) ACCURATE CREATININE CLEARANCE IN PREDICTING GLOMERULAR FILTRATION RATE. ESTIMATED GFR IS NOT APPLICABLE FOR DIALYSIS PATIENTS. BLOOD [id number] 02:41:00 Test Item Value Reference Range Comments CULTURE (BEAKER) From Aerobic Bottle Only (test aecg=7989) Same organism has been isolated from cultures(s) of the same body site and collection date. Repeat identification and susceptibility testing performed only after consultation with the clinical microbiology laboratory.Refer to previous culture ofEnterobacter cloacae GRAM STAIN RESULT From aerobic bottle (BEAKER) (test only: gram negative awlx=7854) rods ANAEROBIC [id number] 23:46:00 Test Item Value Reference Range Comments CULTURE (BEAKER) (test vsmf=4019) No anaerobes isolated POCT-GLUCOSE [id number] 20:54:00 Test Item Value Reference Range Comments POC-GLUCOSE METER (BEAKER) 241 mg/dL 70-110 [place]ED [place] [address] [facility] (test wjcl=7455) [facility] [address] RAD, CHEST, 1 VIEW, NON [id number] 19:11:00Reason for exam:-> leukocytosisShould this be performed [...] MDReport Verified Date/Time: 08/05/2017 19:11:15 Reading Location: [address] Reading Room POCT-GLUCOSE [id number] 18:02:00 Test Item Value Reference Range Comments POC-GLUCOSE METER (BEAKER) 169 mg/dL 70-110 TESTED AT [address] (test ambc=5512) [facility] [address] CT, BRAIN, WITHOUT [id number] 17:19:00Reason for exam:->evaluate for bleedingWhat is the [...] MDReport Verified Date/Time: 08/05/2017 17:19:56 [facility] POCT-GLUCOSE [id number] 11:59: 00 Test Item Value Reference Range Comments POC-GLUCOSE METER (BEAKER) 220 mg/dL 70-110 TESTED AT [address] (test qzlu=0017) [place] [address] URINALYSIS W/ [id number] 10:10:00 Test Item Value Reference Range Comments COLOR (BEAKER) (test aazj=569) Yellow CLARITY (BEAKER) (test gyeg=662) Clear SPECIFIC GRAVITY UA (BEAKER) (test qrvl=812) 1.015 1.001-1.035 PH UA (BEAKER) (test whhq=702) 5.5 5.0-8.0 PROTEIN UA (BEAKER) (test vsro=221) 10 mg/dL Negative GLUCOSE UA (BEAKER) (test wpkn=324) Negative Negative KETONES UA (BEAKER) (test vshe=587) Negative Negative BILIRUBIN UA (BEAKER) (test jkdn=617) Negative Negative BLOOD UA (BEAKER) (test qvbj=216) Trace Negative NITRITE UA (BEAKER) (test dyfl=703) Negative Negative LEUKOCYTE ESTERASE UA (BEAKER) (test nwkn=658) Large Negative UROBILINOGEN UA (BEAKER) (test lzbl=607) 3.0 mg/dL 0.2-1.0 RBC UA (BEAKER) (test qslp=266) 1 /HPF WBC UA (BEAKER) (test uvxa=448) 29 /HPF BACTERIA (BEAKER) (test ywuj=788) Rare MUCUS (BEAKER) (test tqgu=1820) Rare SQUAMOUS EPITHELIAL (BEAKER) (test bxyr=836) < /HPF SOURCE(BEAKER) (test mmer=1453) Urine, Frances POCT-GLUCOSE [id number] 08:49:00 Test Item Value Reference Range Comments POC-GLUCOSE METER (BEAKER) 203 mg/dL 70-110 TESTED AT [address] (test rpts=1714) [place] [address] CBC W/PLT COUNT & AUTO [id number] 08:10:00 Test Item Value Reference Range Comments WHITE BLOOD CELL COUNT (BEAKER) (test zscm=797) 17.3 K/ L 3.5-10.5 RED BLOOD CELL COUNT (BEAKER) (test sdrx=343) 2.80 M/ L 4.63-6.08 HEMOGLOBIN (BEAKER) (test wsxr=709) 9.0 GM/DL 13.7-17.5 HEMATOCRIT (BEAKER) (test qyqn=513) 28.9 % 40.1-51.0 MEAN CORPUSCULAR VOLUME (BEAKER) (test gljx=320) 103.2 fL 79.0-92.2 MEAN CORPUSCULAR HEMOGLOBIN (BEAKER) (test 32.1 pg 25.7-32.2 mrmq=610) MEAN CORPUSCULAR HEMOGLOBIN CONC (BEAKER) (test 31.1 GM/DL 32.3-36.5 suoz=210) RED CELL DISTRIBUTION WIDTH (BEAKER) (test 15.8 % 11.6-14.4 jddy=716) PLATELET COUNT (BEAKER) (test jrmc=487) 500 K/CU MM 150-450 MEAN PLATELET VOLUME (BEAKER) (test ifaj=641) 10.7 fL 9.4-12.4 NUCLEATED RED BLOOD CELLS (BEAKER) (test 1 /100 WBC 0-0 moxh=298) NEUTROPHILS RELATIVE PERCENT (BEAKER) (test 80 % qunt=825) LYMPHOCYTES RELATIVE PERCENT (BEAKER) (test 8 % zbse=177) MONOCYTES RELATIVE PERCENT (BEAKER) (test 7 % lfmn=271) EOSINOPHILS RELATIVE PERCENT (BEAKER) (test 3 % yjfx=423) BASOPHILS RELATIVE PERCENT (BEAKER) (test 1 % nuiu=641) NEUTROPHILS ABSOLUTE COUNT (BEAKER) (test 13.74 K/ L 1.78-5.38 tzyj=050) LYMPHOCYTES ABSOLUTE COUNT (BEAKER) (test 1.43 K/ L 1.32-3.57 fmpp=004) MONOCYTES ABSOLUTE COUNT (BEAKER) (test 1.14 K/ L 0.30-0.82 zeqp=735) EOSINOPHILS ABSOLUTE COUNT (BEAKER) (test 0.47 K/ L 0.04-0.54 sjit=028) BASOPHILS ABSOLUTE COUNT (BEAKER) (test 0.09 K/ L 0.01-0.08 wuzj=388) IMMATURE GRANULOCYTES-RELATIVE PERCENT (BEAKER) 2 % 0-1 (test ozlx=1870) BASIC METABOLIC [id number] 05:29:00 Test Item Value Reference Range Comments SODIUM (BEAKER) (test 138 meq/L 136-145 jqwb=328) POTASSIUM (BEAKER) (test 4.0 meq/L 3.5-5.1 cbvo=215) CHLORIDE (BEAKER) (test 106 meq/L 98-107 nmwi=668) CO2 (BEAKER) (test 22 meq/L 22-29 fyeh=285) BLOOD UREA NITROGEN 46 mg/dL 7-21 (BEAKER) (test iqmo=039) CREATININE (BEAKER) (test 1.77 mg/dL 0.57-1.25 dacd=107) GLUCOSE RANDOM (BEAKER) 162 mg/dL 70-105 (test bqfx=862) CALCIUM (BEAKER) (test 7.9 mg/dL 8.4-10.2 rngs=195) EGFR (BEAKER) (test 38 mL/min/1.73 sq m ESTIMATED GFR IS NOT uill=2853) ACCURATE CREATININE CLEARANCE IN PREDICTING GLOMERULAR FILTRATION RATE. ESTIMATED GFR IS NOT APPLICABLE FOR DIALYSIS PATIENTS. [id number] 05:28:00 Test Item Value Reference Range Comments MAGNESIUM (BEAKER) (test yzim=968) 2.1 mg/dL 1.6-2.6 POCT-GLUCOSE [id number] 21:28:00 Test Item Value Reference Range Comments POC-GLUCOSE METER (BEAKER) 240 mg/dL 70-110 TESTED AT [address] (test rurh=6215) [facility] [address] POCT-GLUCOSE [id number] 18:29:00 Test Item Value Reference Range Comments POC-GLUCOSE METER (BEAKER) 255 mg/dL 70-110 TESTED AT [address] (test zrwh=1628) [facility] [address] POCT-GLUCOSE [id number] 16:59:00 Test Item Value Reference Range Comments POC-GLUCOSE METER (BEAKER) 207 mg/dL 70-110 TESTED AT [address] (test ghcu=5428) [place] [id number] SURGICALLY OBTAINED CULTURE + GRAM [id number] 16:19:00 Test Item Value Reference Range Comments CULTURE (BEAKER) (test znfg=6350) Amikacin (test code=1) Aztreonam (test code=32) Cefepime (test code=51) Cefoxitin (test code=68) Ceftazidime (test code=27) Ceftriaxone (test code=52) Gentamicin (test code=18) Levofloxacin (test code=22) Meropenem (test code=34) Nitrofurantoin (test code=23) Piperacillin + Tazobactam (test code=29) Tetracycline (test code=2) Tobramycin (test code=25) Trimethoprim + Sulfamethoxazole (test code=47) CULTURE (BEAKER) (test 1+ Enterobacter cloacae kwhk=8758) complexAmpC Positive GRAM STAIN RESULT (BEAKER) 1+ WBCs (test junm=9445) GRAM STAIN RESULT (BEAKER) No organisms seen (test mqrb=425048) POCT-GLUCOSE [id number] 08:47:00 Test Item Value Reference Range Comments POC-GLUCOSE METER (BEAKER) 167 mg/dL 70-110 TESTED AT [address] (test alis=9706) [facility] [address] BASIC METABOLIC [id number] 08:10:00 Test Item Value Reference Range Comments SODIUM (BEAKER) (test 137 meq/L 136-145 clwh=880) POTASSIUM (BEAKER) (test 3.7 meq/L 3.5-5.1 zzqk=226) CHLORIDE (BEAKER) (test 106 meq/L 98-107 vmsi=489) CO2 (BEAKER) (test 21 meq/L 22-29 ikrr=573) BLOOD UREA NITROGEN 55 mg/dL 7-21 (BEAKER) (test fjqo=176) CREATININE (BEAKER) (test 2.06 mg/dL 0.57-1.25 dham=901) GLUCOSE RANDOM (BEAKER) 168 mg/dL 70-105 (test lhkv=581) CALCIUM (BEAKER) (test 7.5 mg/dL 8.4-10.2 ccyk=876) EGFR (BEAKER) (test 32 mL/min/1.73 sq m ESTIMATED GFR IS NOT vmey=1795) ACCURATE CREATININE CLEARANCE IN PREDICTING GLOMERULAR FILTRATION RATE. ESTIMATED GFR IS NOT APPLICABLE FOR DIALYSIS PATIENTS. POCT-GLUCOSE [id number] 20:37:00 Test Item Value Reference Range Comments POC-GLUCOSE METER (BEAKER) 232 mg/dL 70-110 TESTED AT [address] (test kqjt=0190) [place] [address] POCT-GLUCOSE [id number] 17:10:00 Test Item Value Reference Range Comments POC-GLUCOSE METER (BEAKER) 256 mg/dL 70-110 TESTED AT [address] (test ltay=1403) [place] [address] RAD, ABDOMEN/KUB, 1 VIEW [id number] 13:37:00Reason for exam:->abdominal pain,FINAL REPORT Comparison: None Discussion: Abdomen: Bowel gas pattern is nonobstructed. Evaluation for free intraperitoneal air is limited due to technique and positioning. Stentprojects over the lower abdomen and pelvis. No acute skeletal abnormality. Impression: 1. Nonspecific bowel gas pattern. Signed: Emerson Palaciosort Verified Date/Time: 08/03/2017 13:37:00 Reading Location: [facility] C0T Transitional Reading Room POCT-GLUCOSE [id number] 12:03:00 Test Item Value Reference Range Comments POC-GLUCOSE METER (BEAKER) 233 mg/dL 70-110 TESTED AT [address] (test okxe=3456) [place] [address] RAD, CHEST, 1 VIEW, NON [id number] 08:43:00Reason for exam:->chest tubeShould this be performed [...] MDRjenniferort Verified Date/Time: 2017 08:43:25 Reading Location: [facility] C013V Neuro Reading Room POCT- GLUCOSE [id number] 07:32:00 Test Item Value Reference Range Comments POC-GLUCOSE METER (BEAKER) 182 mg/dL 70-110 TESTED AT [facility] [address] (test ghae=9286) [facility] [address] BASIC METABOLIC [id number] 06:44:00 Test Item Value Reference Range Comments SODIUM (BEAKER) (test 135 meq/L 136-145 iezi=060) POTASSIUM (BEAKER) (test 3.5 meq/L 3.5-5.1 zxmi=179) CHLORIDE (BEAKER) (test 100 meq/L 98-107 qprc=243) CO2 (BEAKER) (test 23 meq/L 22-29 yueu=345) BLOOD UREA NITROGEN 56 mg/dL 7-21 (BEAKER) (test gxzb=250) CREATININE (BEAKER) (test 2.47 mg/dL 0.57-1.25 jddx=478) GLUCOSE RANDOM (BEAKER) 160 mg/dL 70-105 (test gdng=769) CALCIUM (BEAKER) (test 7.6 mg/dL 8.4-10.2 fjlc=989) EGFR (BEAKER) (test 26 mL/min/1.73 sq m ESTIMATED GFR IS NOT udqg=0315) ACCURATE CREATININE CLEARANCE IN PREDICTING GLOMERULAR FILTRATION RATE. ESTIMATED GFR IS NOT APPLICABLE FOR DIALYSIS PATIENTS. BLOOD [id number] 06:14:00 Test Item Value Reference Range Comments CULTURE (BEAKER) (test alyj=2677) Amikacin (test code=1) Aztreonam (test code=32) Cefepime (test code=51) Cefoxitin (test code=68) Ceftazidime (test code=27) Ceftriaxone (test code=52) Ertapenem (test code=38) Gentamicin (test code=18) Levofloxacin (test code=22) Meropenem (test code=34) Nitrofurantoin (test code=23) Piperacillin + Tazobactam (test code=29) Tetracycline (test code=2) Tobramycin (test code=25) Trimethoprim + Sulfamethoxazole (test code=47) CULTURE (BEAKER) (test From Aerobic And egue=6078) Anaerobic Bottles Enterobacter cloacae GRAM STAIN RESULT (BEAKER) From aerobic and (test qnwr=6304) anaerobic bottles: gram negative rods ENTEROBACTER CLOACAE COMPLEX DETECTEDKPC (a carbapenamase gene) not detectedFirst line therapy: cefepime or meropenemOther organisms and resistance markers not contained in this PCR panel cannot be excluded and follow-up of traditional culture results is required. This sample was tested at the [facility] Clinical Microbiology Laboratory using the [employer] Blood Culture ID Panel. This test is FDAcleared for in vitro diagnostic use and has been verified and approved by the [facility] Clinical Microbiology laboratory for clinical use. Reference Range: Not DetectedSPIN/CONCENTRATION [id number] 05:57:00 Test Item Value Reference Range Comments CONCENTRATION CHARGED (BEAKER) (test shsn=5557) Done CBC W/PLT COUNT & AUTO [id number] 05:37:00 Test Item Value Reference Range Comments WHITE BLOOD CELL COUNT (BEAKER) (test vawa=337) 17.8 K/ L 3.5-10.5 RED BLOOD CELL COUNT (BEAKER) (test vatv=713) 2.71 M/ L 4.63-6.08 HEMOGLOBIN (BEAKER) (test ttvg=011) 8.8 GM/DL 13.7-17.5 HEMATOCRIT (BEAKER) (test cbnn=239) 27.5 % 40.1-51.0 MEAN CORPUSCULAR VOLUME (BEAKER) (test rvff=474) 101.5 fL 79.0-92.2 MEAN CORPUSCULAR HEMOGLOBIN (BEAKER) (test 32.5 pg 25.7-32.2 ytin=697) MEAN CORPUSCULAR HEMOGLOBIN CONC (BEAKER) (test 32.0 GM/DL 32.3-36.5 yial=424) RED CELL DISTRIBUTION WIDTH (BEAKER) (test 15.5 % 11.6-14.4 nnah=333) PLATELET COUNT (BEAKER) (test bzqj=612) 370 K/CU MM 150-450 MEAN PLATELET VOLUME (BEAKER) (test aaif=935) 10.8 fL 9.4-12.4 NUCLEATED RED BLOOD CELLS (BEAKER) (test 0 /100 WBC 0-0 oibs=587) NEUTROPHILS RELATIVE PERCENT (BEAKER) (test 84 % gopc=333) LYMPHOCYTES RELATIVE PERCENT (BEAKER) (test 7 % bjtj=662) MONOCYTES RELATIVE PERCENT (BEAKER) (test 6 % isot=433) EOSINOPHILS RELATIVE PERCENT (BEAKER) (test 1 % atze=588) BASOPHILS RELATIVE PERCENT (BEAKER) (test 0 % deme=575) NEUTROPHILS ABSOLUTE COUNT (BEAKER) (test 14.95 K/ L 1.78-5.38 htqw=070) LYMPHOCYTES ABSOLUTE COUNT (BEAKER) (test 1.17 K/ L 1.32-3.57 nzhw=029) MONOCYTES ABSOLUTE COUNT (BEAKER) (test 1.12 K/ L 0.30-0.82 goce=016) EOSINOPHILS ABSOLUTE COUNT (BEAKER) (test 0.22 K/ L 0.04-0.54 swot=209) BASOPHILS ABSOLUTE COUNT (BEAKER) (test 0.04 K/ L 0.01-0.08 mxxo=465) IMMATURE GRANULOCYTES-RELATIVE PERCENT (BEAKER) 1 % 0-1 (test qspk=0026) POCT-GLUCOSE [id number] 20:08:00 Test Item Value Reference Range Comments POC-GLUCOSE METER (BEAKER) 188 mg/dL 70-110 TESTED AT [address] (test yhbg=3799) [place] [address] RAD, CHEST, 1 VIEW, NON [id number] 18:24:00Reason for exam:->chest tubeShould this be performed [...] MDReport Verified Date/Time: 08/02/2017 18:24:48 Reading Location: [address] Reading Room Electronically signed by: CJ SPENCER on 06:24 PMPOCT-GLUCOSE [id number] 17:07:00 Test Item Value Reference Range Comments POC-GLUCOSE METER (BEAKER) 183 mg/dL 70-110 TESTED AT [address] (test lhop=7090) [place] [address] MISCELLANEOUS LAB [id number] 16:20:00 Test Item Value Reference Range Comments SCAN RESULT (test amxk=[id number]) Result comments: ENTEROBACTER CLOACAE COMPLEX DETECTED KPC (a carbapenamase gene ) not detected Firstline therapy: cefepime or meropenem Other organisms and resistance markers not contained in this PCRpanel cannot be excluded and follow- up of traditional culture results is required. This sample wastested at the [facility] Clinical Microbiology Laboratory using the [employer]llo Blood Culture ID Panel. This test is FDA cleared for in vitro diagnostic use and has been verified and approved by the [facility] Clinical Microbiology laboratory for clinical use. Reference Range: Not DetectedPOCT-GLUCOSE [id number] 12:45:00 Test Item Value Reference Range Comments POC-GLUCOSE METER (BEAKER) 262 mg/dL 70-110 TESTED AT [facility] [address] (test zqqp=3076) [place] [id number] CBC W/PLT COUNT & AUTO [id number] 11:23:00 Test Item Value Reference Range Comments WHITE BLOOD CELL COUNT (BEAKER) (test zmtm=395) 11.9 K/ L 3.5-10.5 RED BLOOD CELL COUNT (BEAKER) (test utdo=029) 2.77 M/ L 4.63-6.08 HEMOGLOBIN (BEAKER) (test jpew=053) 8.9 GM/DL 13.7-17.5 HEMATOCRIT (BEAKER) (test zdje=867) 28.1 % 40.1-51.0 MEAN CORPUSCULAR VOLUME (BEAKER) (test zhqw=612) 101.4 fL 79.0-92.2 MEAN CORPUSCULAR HEMOGLOBIN (BEAKER) (test 32.1 pg 25.7-32.2 qxmh=484) MEAN CORPUSCULAR HEMOGLOBIN CONC (BEAKER) (test 31.7 GM/DL 32.3-36.5 fhge=421) RED CELL DISTRIBUTION WIDTH (BEAKER) (test 15.4 % 11.6-14.4 yspt=020) PLATELET COUNT (BEAKER) (test dlvr=216) 343 K/CU MM 150-450 MEAN PLATELET VOLUME (BEAKER) (test xftc=283) 11.3 fL 9.4-12.4 NUCLEATED RED BLOOD CELLS (BEAKER) (test 1 /100 WBC 0-0 lrwy=673) NEUTROPHILS RELATIVE PERCENT (BEAKER) (test 83 % sefd=629) LYMPHOCYTES RELATIVE PERCENT (BEAKER) (test 6 % hxun=064) MONOCYTES RELATIVE PERCENT (BEAKER) (test 8 % owrj=650) EOSINOPHILS RELATIVE PERCENT (BEAKER) (test 1 % iwhp=012) BASOPHILS RELATIVE PERCENT (BEAKER) (test 0 % bmtp=474) NEUTROPHILS ABSOLUTE COUNT (BEAKER) (test 9.84 K/ L 1.78-5.38 yccs=040) LYMPHOCYTES ABSOLUTE COUNT (BEAKER) (test 0.73 K/ L 1.32-3.57 qmew=885) MONOCYTES ABSOLUTE COUNT (BEAKER) (test 0.93 K/ L 0.30-0.82 fpml=783) EOSINOPHILS ABSOLUTE COUNT (BEAKER) (test 0.13 K/ L 0.04-0.54 vfxf=848) BASOPHILS ABSOLUTE COUNT (BEAKER) (test 0.04 K/ L 0.01-0.08 rcbi=869) IMMATURE GRANULOCYTES-RELATIVE PERCENT (BEAKER) 2 % 0-1 (test ebbm=1699) (MANUAL DIFFERENTIAL)2017-08-02 11:23:00 Test Item Value Reference Range Comments TOTAL COUNTED (BEAKER) (test fjxh=5631) WBC MORPHOLOGY (BEAKER) (test uiqt=717) Normal LARGE PLT(BEAKER) (test mhke=0731) Present ACANTHOCYTES (BEAKER) (test cmav=215) 1+ few ANISOCYTOSIS (BEAKER) (test foor=809) 1+ few HYPOCHROMIA (BEAKER) (test zmue=963) 1+ few MACROCYTES (BEAKER) (test rryj=595) 1+ few POIKILOCYTES (BEAKER) (test bmok=681) 1+ few POLYCHROMATOPHILLIC RBCS(BEAKER) (test nxck=855) 2+ moderate POCT-GLUCOSE [id number] 07:15:00 Test Item Value Reference Range Comments POC-GLUCOSE METER (BEAKER) 218 mg/dL 70-110 TESTED AT [facility] [address] [facility] (test idwn=3961) [facility] [address] BASIC METABOLIC [id number] 06:37:00 Test Item Value Reference Range Comments SODIUM (BEAKER) (test 137 meq/L 136-145 evjr=480) POTASSIUM (BEAKER) (test 3.6 meq/L 3.5-5.1 iurt=601) CHLORIDE (BEAKER) (test 104 meq/L 98-107 mmbw=095) CO2 (BEAKER) (test 23 meq/L 22-29 lrwb=917) BLOOD UREA NITROGEN 51 mg/dL 7-21 (BEAKER) (test zwmg=503) CREATININE (BEAKER) (test 2.37 mg/dL 0.57-1.25 umlv=564) GLUCOSE RANDOM (BEAKER) 242 mg/dL 70-105 (test kcon=622) CALCIUM (BEAKER) (test 7.4 mg/dL 8.4-10.2 wxfe=388) EGFR (BEAKER) (test 27 mL/min/1.73 sq m ESTIMATED GFR IS NOT fdoj=7612) ACCURATE CREATININE CLEARANCE IN PREDICTING GLOMERULAR FILTRATION RATE. ESTIMATED GFR IS NOT APPLICABLE FOR DIALYSIS PATIENTS. POCT-GLUCOSE [id number] 21:51:00 Test Item Value Reference Range Comments POC-GLUCOSE METER (BEAKER) 237 mg/dL 70-110 TESTED AT [address] (test evmm=7383) [place] [id number] POCT-GLUCOSE [id number] 17:18:00 Test Item Value Reference Range Comments POC-GLUCOSE METER (BEAKER) 175 mg/dL 70-110 TESTED AT [address] (test udig=9764) [place] [id number] POCT-GLUCOSE [id number] 16:29:00 Test Item Value Reference Range Comments POC-GLUCOSE METER (BEAKER) 182 mg/dL 70-110 TESTED AT [address] (test fvhk=5921) [place] [address] RAD, CHEST, 1 VIEW, NON [id number] 16:22:00Reason for exam:->Post opShould this be performed [...] MDReport Verified Date/Time: 08/01/2017 16:22:20 Reading Location: [facility] [id number] Consult Reading Room CB W/PLT COUNT & AUTO [id number] 09:03:00 Test Item Value Reference Range Comments WHITE BLOOD CELL COUNT (BEAKER) (test lqsc=963) 12.3 K/ L 3.5-10.5 RED BLOOD CELL COUNT (BEAKER) (test aler=132) 3.13 M/ L 4.63-6.08 HEMOGLOBIN (BEAKER) (test zohq=594) 9.9 GM/DL 13.7-17.5 HEMATOCRIT (BEAKER) (test plzo=970) 31.9 % 40.1-51.0 MEAN CORPUSCULAR VOLUME (BEAKER) (test lzvx=055) 101.9 fL 79.0-92.2 MEAN CORPUSCULAR HEMOGLOBIN (BEAKER) (test 31.6 pg 25.7-32.2 kzfa=404) MEAN CORPUSCULAR HEMOGLOBIN CONC (BEAKER) (test 31.0 GM/DL 32.3-36.5 fkut=845) RED CELL DISTRIBUTION WIDTH (BEAKER) (test 15.2 % 11.6-14.4 ixsq=581) PLATELET COUNT (BEAKER) (test yzor=966) 317 K/CU MM 150-450 MEAN PLATELET VOLUME (BEAKER) (test igla=097) 10.8 fL 9.4-12.4 NUCLEATED RED BLOOD CELLS (BEAKER) (test 1 /100 WBC 0-0 xbbo=642) NEUTROPHILS RELATIVE PERCENT (BEAKER) (test 81 % wjhq=339) LYMPHOCYTES RELATIVE PERCENT (BEAKER) (test 8 % ovuz=733) MONOCYTES RELATIVE PERCENT (BEAKER) (test 7 % xmra=373) EOSINOPHILS RELATIVE PERCENT (BEAKER) (test 1 % lgxm=916) BASOPHILS RELATIVE PERCENT (BEAKER) (test 0 % yebe=248) NEUTROPHILS ABSOLUTE COUNT (BEAKER) (test 9.99 K/ L 1.78-5.38 julb=544) LYMPHOCYTES ABSOLUTE COUNT (BEAKER) (test 0.94 K/ L 1.32-3.57 vvwh=121) MONOCYTES ABSOLUTE COUNT (BEAKER) (test 0.88 K/ L 0.30-0.82 yuep=611) EOSINOPHILS ABSOLUTE COUNT (BEAKER) (test 0.17 K/ L 0.04-0.54 kcaz=479) BASOPHILS ABSOLUTE COUNT (BEAKER) (test 0.05 K/ L 0.01-0.08 fqwx=662) IMMATURE GRANULOCYTES-RELATIVE PERCENT (BEAKER) 2 % 0-1 (test kana=1290) (MANUAL DIFFERENTIAL)2017-08-01 09:03:00 Test Item Value Reference Range Comments TOTAL COUNTED (BEAKER) (test myie=3152) POCT-GLUCOSE [id number] 07:50:00 Test Item Value Reference Range Comments POC-GLUCOSE METER (BEAKER) 181 mg/dL 70-110 TESTED AT [facility] [address] [facility] (test uiph=2468) [facility] [address] CALCIUM, [id number] 06:10:00 Test Item Value Reference Range Comments CALCIUM IONIZED (BEAKER) (test uqsh=726) 0.96 mmol/L 1.12-1.27 PH, BLOOD (BEAKER) (test hjpl=2663) 7.38 BASIC METABOLIC [id number] 04:43:00 Test Item Value Reference Range Comments SODIUM (BEAKER) (test 140 meq/L 136-145 udwq=899) POTASSIUM (BEAKER) (test 3.6 meq/L 3.5-5.1 uuap=332) CHLORIDE (BEAKER) (test 104 meq/L 98-107 qvlp=097) CO2 (BEAKER) (test 26 meq/L 22-29 ubmp=726) BLOOD UREA NITROGEN 42 mg/dL 7-21 (BEAKER) (test lvre=690) CREATININE (BEAKER) (test 1.91 mg/dL 0.57-1.25 jlil=627) GLUCOSE RANDOM (BEAKER) 172 mg/dL 70-105 (test sjid=659) CALCIUM (BEAKER) (test 8.0 mg/dL 8.4-10.2 lauz=570) EGFR (BEAKER) (test 35 mL/min/1.73 sq m ESTIMATED GFR IS NOT lwqt=2106) ACCURATE CREATININE CLEARANCE IN PREDICTING GLOMERULAR FILTRATION RATE. ESTIMATED GFR IS NOT APPLICABLE FOR DIALYSIS PATIENTS. POCT-GLUCOSE [id number] 21:15:00 Test Item Value Reference Range Comments POC-GLUCOSE METER (BEAKER) 233 mg/dL 70-110 TESTED AT [facility] [address] [facility] (test wzib=9375) [facility] [address] POCT-GLUCOSE [id number] 17:44:00 Test Item Value Reference Range Comments POC-GLUCOSE METER (BEAKER) 161 mg/dL 70-110 TESTED AT [facility] [address] [facility] (test hxcr=9714) [place] [id number] WOUND CULTURE + GRAM [id number] 13:50:00 Test Item Value Reference Range Comments CULTURE (BEAKER) (test geyu=6210) Amikacin (test code=1) Susceptible 0-16 , Resistant [...] >40 code=47) CULTURE (BEAKER) (test 2+ Enterobacter tztb=4142) cloacae GRAM STAIN RESULT (BEAKER) 2+ WBCs (test ltsy=5832) GRAM STAIN RESULT (BEAKER) <1+ gram positive (test jkat=511660) rods POCT-GLUCOSE [id number] 12:36:00 Test Item Value Reference Range Comments POC-GLUCOSE METER (BEAKER) 189 mg/dL 70-110 TESTED AT [facility] [address] [facility] (test befy=5620) [facility] [address] CBC W/PLT COUNT & AUTO [id number] 08:34:00 Test Item Value Reference Range Comments WHITE BLOOD CELL COUNT (BEAKER) (test akqf=619) 12.2 K/ L 3.5-10.5 RED BLOOD CELL COUNT (BEAKER) (test ropb=857) 2.94 M/ L 4.63-6.08 HEMOGLOBIN (BEAKER) (test qvgc=184) 9.5 GM/DL 13.7-17.5 HEMATOCRIT (BEAKER) (test xdju=497) 30.4 % 40.1-51.0 MEAN CORPUSCULAR VOLUME (BEAKER) (test vmot=597) 103.4 fL 79.0-92.2 MEAN CORPUSCULAR HEMOGLOBIN (BEAKER) (test 32.3 pg 25.7-32.2 ipnc=451) MEAN CORPUSCULAR HEMOGLOBIN CONC (BEAKER) (test 31.3 GM/DL 32.3-36.5 eide=150) RED CELL DISTRIBUTION WIDTH (BEAKER) (test 15.4 % 11.6-14.4 nqrz=113) PLATELET COUNT (BEAKER) (test zzil=281) 247 K/CU MM 150-450 MEAN PLATELET VOLUME (BEAKER) (test yxvx=581) 10.5 fL 9.4-12.4 NUCLEATED RED BLOOD CELLS (BEAKER) (test 1 /100 WBC 0-0 kjcq=704) NEUTROPHILS RELATIVE PERCENT (BEAKER) (test 75 % gtqm=830) LYMPHOCYTES RELATIVE PERCENT (BEAKER) (test 10 % feqj=588) MONOCYTES RELATIVE PERCENT (BEAKER) (test 9 % gjhu=183) EOSINOPHILS RELATIVE PERCENT (BEAKER) (test 3 % tgdr=288) BASOPHILS RELATIVE PERCENT (BEAKER) (test 0 % kfbq=501) NEUTROPHILS ABSOLUTE COUNT (BEAKER) (test 9.16 K/ L 1.78-5.38 dpfy=228) LYMPHOCYTES ABSOLUTE COUNT (BEAKER) (test 1.18 K/ L 1.32-3.57 mgab=708) MONOCYTES ABSOLUTE COUNT (BEAKER) (test 1.08 K/ L 0.30-0.82 msch=815) EOSINOPHILS ABSOLUTE COUNT (BEAKER) (test 0.35 K/ L 0.04-0.54 swpb=807) BASOPHILS ABSOLUTE COUNT (BEAKER) (test 0.04 K/ L 0.01-0.08 vevv=884) IMMATURE GRANULOCYTES-RELATIVE PERCENT (BEAKER) 3 % 0-1 (test kqtz=9373) (MANUAL DIFFERENTIAL)2017-07-31 08:34:00 Test Item Value Reference Range Comments TOTAL COUNTED (BEAKER) (test inxs=4712) POCT-GLUCOSE [id number] 07:54:00 Test Item Value Reference Range Comments POC-GLUCOSE METER (BEAKER) 252 mg/dL 70-110 TESTED AT [facility] [address] [facility] (test aovr=3411) [facility] [address] BASIC METABOLIC [id number] 05:51:00 Test Item Value Reference Range Comments SODIUM (BEAKER) (test 141 meq/L 136-145 iyai=026) POTASSIUM (BEAKER) (test 3.8 meq/L 3.5-5.1 jxve=205) CHLORIDE (BEAKER) (test 106 meq/L 98-107 lwtk=195) CO2 (BEAKER) (test 26 meq/L 22-29 wyzw=867) BLOOD UREA NITROGEN 46 mg/dL 7-21 (BEAKER) (test ufwx=050) CREATININE (BEAKER) (test 2.01 mg/dL 0.57-1.25 urfm=013) GLUCOSE RANDOM (BEAKER) 165 mg/dL 70-105 (test qogt=183) CALCIUM (BEAKER) (test 7.7 mg/dL 8.4-10.2 hxkz=783) EGFR (BEAKER) (test 33 mL/min/1.73 sq m ESTIMATED GFR IS NOT fcwh=7564) ACCURATE CREATININE CLEARANCE IN PREDICTING GLOMERULAR FILTRATION RATE. ESTIMATED GFR IS NOT APPLICABLE FOR DIALYSIS PATIENTS. LIPID [id number] 05:48:00 Test Item Value Reference Range Comments TRIGLYCERIDES (BEAKER) (test xpxe=186) 140 mg/dL CHOLESTEROL (BEAKER) (test jzte=325) 106 mg/dL HDL CHOLESTEROL (BEAKER) (test cbil=321) 19 mg/dL LDL CHOLESTEROL CALCULATED (BEAKER) (test 59 mg/dL uwtf=262) Triglyceride Reference Range: Low Risk <150 Borderline 150- 199 High Risk 200-499 Very High Risk >=500Cholesterol Reference Range: Low Risk <200 Borderline 200-239 High Risk > 240HDL Cholesterol Reference Range: Low Risk >=60 High Risk <40LDL Cholesterol Reference Range: Optimal <100 Near Optimal 100-129 Borderline 130-159 High 160-189 Very High >=190POCT-GLUCOSE [id number] 21:13:00 Test Item Value Reference Range Comments POC-GLUCOSE METER (BEAKER) 193 mg/dL 70-110 TESTED AT [address] (test axit=0318) [place] [address] POCT-GLUCOSE [id number] 17:46:00 Test Item Value Reference Range Comments POC-GLUCOSE METER (BEAKER) 214 mg/dL 70-110 TESTED AT [address] (test vlnf=0578) [place] [address] [id number] 16:18:00 Test Item Value Reference Range Comments POTASSIUM (BEAKER) (test sdrh=116) 3.6 meq/L 3.5-5.1 POCT-GLUCOSE [id number] 13:06:00 Test Item Value Reference Range Comments POC-GLUCOSE METER (BEAKER) 230 mg/dL 70-110 TESTED AT [address] (test cysi=8307) [place] [address] BASIC METABOLIC [id number] 08:41:00 Test Item Value Reference Range Comments SODIUM (BEAKER) (test 145 meq/L 136-145 rdkh=961) POTASSIUM (BEAKER) (test 3.9 meq/L 3.5-5.1 Specimen slightly blfc=234) hemolyzed CHLORIDE (BEAKER) (test 107 meq/L 98-107 texe=746) CO2 (BEAKER) (test 25 meq/L 22-29 edyw=699) BLOOD UREA NITROGEN 52 mg/dL 7-21 (BEAKER) (test rzto=726) CREATININE (BEAKER) (test 2.09 mg/dL 0.57-1.25 Specimen slightly uehh=395) hemolyzed GLUCOSE RANDOM (BEAKER) 170 mg/dL 70-105 (test hhab=856) CALCIUM (BEAKER) (test 8.2 mg/dL 8.4-10.2 ikom=163) EGFR (BEAKER) (test 31 mL/min/1.73 sq m ESTIMATED GFR IS NOT vpwj=7947) ACCURATE CREATININE CLEARANCE IN PREDICTING GLOMERULAR FILTRATION RATE. ESTIMATED GFR IS NOT APPLICABLE FOR DIALYSIS PATIENTS. RAD, CHEST, 1 VIEW, NON [id number] 08:23:00Reason for exam:->pulmonary congestionShould this be performed [...] MDReport Verified Date/Time: 07/30/2017 08:23:04 Reading Location: [facility] Radiology Reading Room POCT- GLUCOSE [id number] 07:52:00 Test Item Value Reference Range Comments POC-GLUCOSE METER (BEAKER) 211 mg/dL 70-110 TESTED AT [address] (test tmld=6886) [facility] [address] CBC W/PLT COUNT & AUTO [id number] 04:32:00 Test Item Value Reference Range Comments WHITE BLOOD CELL COUNT (BEAKER) (test umin=711) 12.3 K/ L 3.5-10.5 RED BLOOD CELL COUNT (BEAKER) (test naat=652) 2.96 M/ L 4.63-6.08 HEMOGLOBIN (BEAKER) (test ypck=783) 9.4 GM/DL 13.7-17.5 HEMATOCRIT (BEAKER) (test sgky=727) 30.1 % 40.1-51.0 MEAN CORPUSCULAR VOLUME (BEAKER) (test rhrr=316) 101.7 fL 79.0-92.2 MEAN CORPUSCULAR HEMOGLOBIN (BEAKER) (test 31.8 pg 25.7-32.2 ekqm=924) MEAN CORPUSCULAR HEMOGLOBIN CONC (BEAKER) (test 31.2 GM/DL 32.3-36.5 lhcl=331) RED CELL DISTRIBUTION WIDTH (BEAKER) (test 15.2 % 11.6-14.4 gmnp=515) PLATELET COUNT (BEAKER) (test sipx=343) 219 K/CU MM 150-450 MEAN PLATELET VOLUME (BEAKER) (test gtct=309) 11.3 fL 9.4-12.4 NUCLEATED RED BLOOD CELLS (BEAKER) (test 2 /100 WBC 0-0 mrmq=253) NEUTROPHILS RELATIVE PERCENT (BEAKER) (test 76 % bljw=620) LYMPHOCYTES RELATIVE PERCENT (BEAKER) (test 8 % ohqw=911) MONOCYTES RELATIVE PERCENT (BEAKER) (test 10 % tydg=247) EOSINOPHILS RELATIVE PERCENT (BEAKER) (test 3 % vech=890) BASOPHILS RELATIVE PERCENT (BEAKER) (test 0 % rhis=082) NEUTROPHILS ABSOLUTE COUNT (BEAKER) (test 9.35 K/ L 1.78-5.38 znsa=004) LYMPHOCYTES ABSOLUTE COUNT (BEAKER) (test 0.97 K/ L 1.32-3.57 qkld=935) MONOCYTES ABSOLUTE COUNT (BEAKER) (test 1.25 K/ L 0.30-0.82 orwm=110) EOSINOPHILS ABSOLUTE COUNT (BEAKER) (test 0.41 K/ L 0.04-0.54 blpm=827) BASOPHILS ABSOLUTE COUNT (BEAKER) (test 0.04 K/ L 0.01-0.08 fmeb=362) IMMATURE GRANULOCYTES-RELATIVE PERCENT (BEAKER) 2 % 0-1 (test naoy=1209) POCT-GLUCOSE [id number] 18:50:00 Test Item Value Reference Range Comments POC-GLUCOSE METER (BEAKER) 139 mg/dL 70-110 TESTED AT [facility] [address] [facility] (test ckmu=4877) [facility] [address] [id number] 13:28:00 Test Item Value Reference Range Comments POTASSIUM (BEAKER) (test alys=860) 3.7 meq/L 3.5-5.1 CBC W/PLT COUNT & AUTO [id number] 13:25:00 Test Item Value Reference Range Comments WHITE BLOOD CELL COUNT (BEAKER) (test yeme=488) 11.2 K/ L 3.5-10.5 RED BLOOD CELL COUNT (BEAKER) (test dxyc=606) 2.67 M/ L 4.63-6.08 HEMOGLOBIN (BEAKER) (test veqr=843) 8.8 GM/DL 13.7-17.5 HEMATOCRIT (BEAKER) (test pckc=951) 27.3 % 40.1-51.0 MEAN CORPUSCULAR VOLUME (BEAKER) (test lfdz=033) 102.2 fL 79.0-92.2 MEAN CORPUSCULAR HEMOGLOBIN (BEAKER) (test 33.0 pg 25.7-32.2 vtps=943) MEAN CORPUSCULAR HEMOGLOBIN CONC (BEAKER) (test 32.2 GM/DL 32.3-36.5 qvcs=505) RED CELL DISTRIBUTION WIDTH (BEAKER) (test 15.3 % 11.6-14.4 kdod=982) PLATELET COUNT (BEAKER) (test wmva=437) 202 K/CU MM 150-450 MEAN PLATELET VOLUME (BEAKER) (test xeye=895) 11.4 fL 9.4-12.4 NUCLEATED RED BLOOD CELLS (BEAKER) (test 3 /100 WBC 0-0 kzqg=863) NEUTROPHILS RELATIVE PERCENT (BEAKER) (test 79 % cshd=286) LYMPHOCYTES RELATIVE PERCENT (BEAKER) (test 8 % zsmx=087) MONOCYTES RELATIVE PERCENT (BEAKER) (test 9 % lhut=129) EOSINOPHILS RELATIVE PERCENT (BEAKER) (test 2 % vuva=083) BASOPHILS RELATIVE PERCENT (BEAKER) (test 0 % nulv=843) NEUTROPHILS ABSOLUTE COUNT (BEAKER) (test 8.88 K/ L 1.78-5.38 cpju=567) LYMPHOCYTES ABSOLUTE COUNT (BEAKER) (test 0.89 K/ L 1.32-3.57 agir=902) MONOCYTES ABSOLUTE COUNT (BEAKER) (test 1.00 K/ L 0.30-0.82 nxby=496) EOSINOPHILS ABSOLUTE COUNT (BEAKER) (test 0.18 K/ L 0.04-0.54 elcd=944) BASOPHILS ABSOLUTE COUNT (BEAKER) (test 0.03 K/ L 0.01-0.08 uiyk=941) IMMATURE GRANULOCYTES-RELATIVE PERCENT (BEAKER) 2 % 0-1 (test rlck=1125) (MANUAL DIFFERENTIAL)2017-07-29 13:25:00 Test Item Value Reference Range Comments TOTAL COUNTED (BEAKER) (test ninv=8409) POCT-GLUCOSE [id number] 12:44:00 Test Item Value Reference Range Comments POC-GLUCOSE METER (BEAKER) 251 mg/dL 70-110 TESTED AT [facility] [address] [place] [address] (test rquk=6770) [facility] [address] RAD, CHEST, 1 VIEW, NON [id number] 09:58:00Reason for exam:->pulmonary congestionShould this be performed [...] Pyle Verified Date/Time: 07/29/2017 09:58:36 Reading Location: [facility] Radiology Reading Room POCT-GLUCOSE [id number] 08:36:00 Test Item Value Reference Range Comments POC-GLUCOSE METER (BEAKER) 198 mg/dL 70-110 TESTED AT [address] (test bvnw=9908) [facility] [address] CALCIUM, [id number] 06:14:00 Test Item Value Reference Range Comments CALCIUM IONIZED (BEAKER) (test zhot=339) 0.98 mmol/L 1.12-1.27 PH, BLOOD (BEAKER) (test cfew=1888) 7.43 BASIC METABOLIC [id number] 05:40:00 Test Item Value Reference Range Comments SODIUM (BEAKER) (test 146 meq/L 136-145 hogj=768) POTASSIUM (BEAKER) (test 3.3 meq/L 3.5-5.1 whul=886) CHLORIDE (BEAKER) (test 108 meq/L 98-107 ycxu=750) CO2 (BEAKER) (test 26 meq/L 22-29 tvot=252) BLOOD UREA NITROGEN 63 mg/dL 7-21 (BEAKER) (test grzx=313) CREATININE (BEAKER) (test 2.25 mg/dL 0.57-1.25 hqkc=676) GLUCOSE RANDOM (BEAKER) 165 mg/dL 70-105 (test gwnr=493) CALCIUM (BEAKER) (test 8.2 mg/dL 8.4-10.2 grjy=592) EGFR (BEAKER) (test 29 mL/min/1.73 sq m ESTIMATED GFR IS NOT bekz=6846) ACCURATE CREATININE CLEARANCE IN PREDICTING GLOMERULAR FILTRATION RATE. ESTIMATED GFR IS NOT APPLICABLE FOR DIALYSIS PATIENTS. [id number] 05:36:00 Test Item Value Reference Range Comments POTASSIUM (BEAKER) (test jrdp=375) 3.3 meq/L 3.5-5.1 [id number] 05:36:00 Test Item Value Reference Range Comments MAGNESIUM (BEAKER) (test hzdh=680) 2.1 mg/dL 1.6-2.6 [id number] 01:31:00 Test Item Value Reference Range Comments POTASSIUM (BEAKER) (test qhow=139) 3.5 meq/L 3.5-5.1 [id number] 01:31:00 Test Item Value Reference Range Comments MAGNESIUM (BEAKER) (test lscc=730) 2.0 mg/dL 1.6-2.6 CALCIUM, [id number] 01:14:00 Test Item Value Reference Range Comments CALCIUM IONIZED (BEAKER) (test acni=996) 0.96 mmol/L 1.12-1.27 PH, BLOOD (BEAKER) (test rirn=2348) 7.46 POCT-GLUCOSE [id number] 21:48:00 Test Item Value Reference Range Comments POC-GLUCOSE METER (BEAKER) 200 mg/dL 70-110 TESTED AT [address] (test flmn=1628) [facility] [address] BASIC METABOLIC [id number] 20:08:00 Test Item Value Reference Range Comments SODIUM (BEAKER) (test 147 meq/L 136-145 enrl=860) POTASSIUM (BEAKER) (test 3.8 meq/L 3.5-5.1 xqhx=966) CHLORIDE (BEAKER) (test 109 meq/L 98-107 cfcs=882) CO2 (BEAKER) (test 26 meq/L 22-29 sooh=733) BLOOD UREA NITROGEN 66 mg/dL 7-21 (BEAKER) (test xudg=501) CREATININE (BEAKER) (test 2.32 mg/dL 0.57-1.25 mjll=219) GLUCOSE RANDOM (BEAKER) 140 mg/dL 70-105 (test ihbz=367) CALCIUM (BEAKER) (test 8.8 mg/dL 8.4-10.2 yyly=004) EGFR (BEAKER) (test 28 mL/min/1.73 sq m ESTIMATED GFR IS NOT rjjs=9236) ACCURATE CREATININE CLEARANCE IN PREDICTING GLOMERULAR FILTRATION RATE. ESTIMATED GFR IS NOT APPLICABLE FOR DIALYSIS PATIENTS. [id number] 19:29:00 Test Item Value Reference Range Comments POTASSIUM (BEAKER) (test wzpm=916) 3.8 meq/L 3.5-5.1 [id number] 19:29:00 Test Item Value Reference Range Comments MAGNESIUM (BEAKER) (test bweo=078) 2.2 mg/dL 1.6-2.6 CALCIUM, [id number] 19:16:00 Test Item Value Reference Range Comments CALCIUM IONIZED (BEAKER) (test racd=396) 1.04 mmol/L 1.12-1.27 PH, BLOOD (BEAKER) (test vjkg=5727) 7.48 POCT-GLUCOSE [id number] 18:17:00 Test Item Value Reference Range Comments POC-GLUCOSE METER (BEAKER) 145 mg/dL 70-110 TESTED AT [address] (test xcyk=4059) [place] [address] POCT-GLUCOSE [id number] 18:17:00 Test Item Value Reference Range Comments POC-GLUCOSE METER (BEAKER) 99 mg/dL 70-110 TESTED AT [address] (test sgue=9777) [place] [id number] POCT-GLUCOSE [id number] 18:17:00 Test Item Value Reference Range Comments POC-GLUCOSE METER (BEAKER) 132 mg/dL 70-110 TESTED AT [address] (test clry=8172) [place] [address] POCT-GLUCOSE [id number] 18:17:00 Test Item Value Reference Range Comments POC-GLUCOSE METER (BEAKER) 132 mg/dL 70-110 TESTED AT [address] (test kxlt=1836) [place] [address] CT, BRAIN, WITHOUT [id number] 18:16:00FINAL REPORT CT head without contrast. Comparisons: [...] Taty Osborne Verified Date/Time: 07/28/2017 18:16:35 POCT-GLUCOSE [id number] 16:20: 00 Test Item Value Reference Range Comments POC-GLUCOSE METER (BEAKER) 183 mg/dL 70-110 TESTED AT [facility] [address] [facility] (test xkme=1122) [facility] [address] [id number] 15:02:00 Test Item Value Reference Range Comments POTASSIUM (BEAKER) (test jhdz=061) 3.7 meq/L 3.5-5.1 [id number] 15:02:00 Test Item Value Reference Range Comments MAGNESIUM (BEAKER) (test cjht=526) 2.2 mg/dL 1.6-2.6 CALCIUM, [id number] 14:46:00 Test Item Value Reference Range Comments CALCIUM IONIZED (BEAKER) (test zgbz=623) 1.09 mmol/L 1.12-1.27 PH, BLOOD (BEAKER) (test hscu=3426) 7.45 BASIC METABOLIC [id number] 11:18:00 Test Item Value Reference Range Comments SODIUM (BEAKER) (test 150 meq/L 136-145 axbw=548) POTASSIUM (BEAKER) (test 3.7 meq/L 3.5-5.1 iikg=888) CHLORIDE (BEAKER) (test 112 meq/L 98-107 tudh=376) CO2 (BEAKER) (test 27 meq/L 22-29 drba=673) BLOOD UREA NITROGEN 64 mg/dL 7-21 (BEAKER) (test nekk=256) CREATININE (BEAKER) (test 2.30 mg/dL 0.57-1.25 mkns=211) GLUCOSE RANDOM (BEAKER) 135 mg/dL 70-105 (test qkgf=555) CALCIUM (BEAKER) (test 8.8 mg/dL 8.4-10.2 zhbr=950) EGFR (BEAKER) (test 28 mL/min/1.73 sq m ESTIMATED GFR IS NOT nbau=6886) ACCURATE CREATININE CLEARANCE IN PREDICTING GLOMERULAR FILTRATION RATE. ESTIMATED GFR IS NOT APPLICABLE FOR DIALYSIS PATIENTS. RAD, CHEST, 1 VIEW, NON [id number] 08:31:00Reason for exam:->pulmonary congestionShould this be performed [...] MDReport Verified Date/Time: 07/28/2017 08:31:10 Reading Location: [facility] Radiology Reading Room BASIC METABOLIC [id number] 06:16 :00 Test Item Value Reference Range Comments SODIUM (BEAKER) (test 149 meq/L 136-145 lcaa=839) POTASSIUM (BEAKER) (test 4.0 meq/L 3.5-5.1 Specimen slightly nmqp=904) hemolyzed CHLORIDE (BEAKER) (test 112 meq/L 98-107 arzp=733) CO2 (BEAKER) (test 25 meq/L 22-29 yope=954) BLOOD UREA NITROGEN 61 mg/dL 7-21 (BEAKER) (test oeoe=692) CREATININE (BEAKER) (test 2.28 mg/dL 0.57-1.25 Specimen slightly eipa=562) hemolyzed GLUCOSE RANDOM (BEAKER) 127 mg/dL 70-105 (test xhgn=147) CALCIUM (BEAKER) (test 8.6 mg/dL 8.4-10.2 wnvc=417) EGFR (BEAKER) (test 28 mL/min/1.73 sq m ESTIMATED GFR IS NOT icxe=8646) ACCURATE CREATININE CLEARANCE IN PREDICTING GLOMERULAR FILTRATION RATE. ESTIMATED GFR IS NOT APPLICABLE FOR DIALYSIS PATIENTS. [id number] 06:07:00 Test Item Value Reference Range Comments MAGNESIUM (BEAKER) (test 2.3 mg/dL 1.6-2.6 Specimen slightly hemolyzed ijsq=373) [id number] 06:07:00 Test Item Value Reference Range Comments PHOSPHORUS (BEAKER) (test 3.5 mg/dL 2.3-4.7 Specimen slightly hemolyzed mjvp=710) [id number] 06:07:00 Test Item Value Reference Range Comments POTASSIUM (BEAKER) (test 4.0 meq/L 3.5-5.1 Specimen slightly hemolyzed zqkn=592) CBC W/PLT COUNT & AUTO [id number] 05:51:00 Test Item Value Reference Range Comments WHITE BLOOD CELL COUNT (BEAKER) (test lgik=437) 9.2 K/ L 3.5-10.5 RED BLOOD CELL COUNT (BEAKER) (test zlrz=399) 2.77 M/ L 4.63-6.08 HEMOGLOBIN (BEAKER) (test vzfl=783) 9.0 GM/DL 13.7-17.5 HEMATOCRIT (BEAKER) (test nbdu=140) 28.0 % 40.1-51.0 MEAN CORPUSCULAR VOLUME (BEAKER) (test jzen=690) 101.1 fL 79.0-92.2 MEAN CORPUSCULAR HEMOGLOBIN (BEAKER) (test 32.5 pg 25.7-32.2 txzk=634) MEAN CORPUSCULAR HEMOGLOBIN CONC (BEAKER) (test 32.1 GM/DL 32.3-36.5 bmxb=721) RED CELL DISTRIBUTION WIDTH (BEAKER) (test 14.9 % 11.6-14.4 vqah=642) PLATELET COUNT (BEAKER) (test rrmy=153) 157 K/CU MM 150-450 MEAN PLATELET VOLUME (BEAKER) (test owan=684) 12.4 fL 9.4-12.4 NUCLEATED RED BLOOD CELLS (BEAKER) (test 1 /100 WBC 0-0 hnco=866) IMMATURE GRANULOCYTES-RELATIVE PERCENT (BEAKER) 1 % 0-1 (test yymo=4177) CALCIUM, [id number] 05:13:00 Test Item Value Reference Range Comments CALCIUM IONIZED (BEAKER) (test lbtf=989) 1.09 mmol/L 1.12-1.27 PH, BLOOD (BEAKER) (test jbkv=6600) 7.45 [id number] 00:51:00 Test Item Value Reference Range Comments POTASSIUM (BEAKER) (test leda=219) 4.1 meq/L 3.5-5.1 [id number] 00:51:00 Test Item Value Reference Range Comments MAGNESIUM (BEAKER) (test tnbi=434) 2.2 mg/dL 1.6-2.6 CALCIUM, [id number] 00:46:00 Test Item Value Reference Range Comments CALCIUM IONIZED (BEAKER) (test ncdd=054) 1.11 mmol/L 1.12-1.27 PH, BLOOD (BEAKER) (test dcnq=2691) 7.47 POCT-GLUCOSE [id number] 22:39:00 Test Item Value Reference Range Comments POC-GLUCOSE METER (BEAKER) 167 mg/dL 70-110 TESTED AT [address] (test jlyl=8306) [facility] [address] BASIC METABOLIC [id number] 21:20:00 Test Item Value Reference Range Comments SODIUM (BEAKER) (test 148 meq/L 136-145 ogbt=574) POTASSIUM (BEAKER) (test 3.9 meq/L 3.5-5.1 phhf=347) CHLORIDE (BEAKER) (test 111 meq/L 98-107 hltv=859) CO2 (BEAKER) (test 28 meq/L 22-29 phaf=429) BLOOD UREA NITROGEN 53 mg/dL 7-21 (BEAKER) (test kawn=234) CREATININE (BEAKER) (test 2.26 mg/dL 0.57-1.25 mrjn=467) GLUCOSE RANDOM (BEAKER) 138 mg/dL 70-105 (test rbry=266) CALCIUM (BEAKER) (test 9.2 mg/dL 8.4-10.2 wftu=124) EGFR (BEAKER) (test 29 mL/min/1.73 sq m ESTIMATED GFR IS NOT eqcj=2300) ACCURATE CREATININE CLEARANCE IN PREDICTING GLOMERULAR FILTRATION RATE. ESTIMATED GFR IS NOT APPLICABLE FOR DIALYSIS PATIENTS. [id number] 18:54:00 Test Item Value Reference Range Comments POTASSIUM (BEAKER) (test rhtc=027) 4.0 meq/L 3.5-5.1 [id number] 18:54:00 Test Item Value Reference Range Comments MAGNESIUM (BEAKER) (test bdwq=659) 2.3 mg/dL 1.6-2.6 CALCIUM, [id number] 18:10:00 Test Item Value Reference Range Comments CALCIUM IONIZED (BEAKER) (test xevg=346) 1.13 mmol/L 1.12-1.27 PH, BLOOD (BEAKER) (test xgks=6347) 7.46 BASIC METABOLIC [id number] 09:04:00 Test Item Value Reference Range Comments SODIUM (BEAKER) (test 146 meq/L 136-145 tnol=666) POTASSIUM (BEAKER) (test 4.0 meq/L 3.5-5.1 ovkd=148) CHLORIDE (BEAKER) (test 111 meq/L 98-107 telg=946) CO2 (BEAKER) (test 26 meq/L 22-29 zhij=968) BLOOD UREA NITROGEN 46 mg/dL 7-21 (BEAKER) (test htbh=416) CREATININE (BEAKER) (test 2.35 mg/dL 0.57-1.25 lmlf=524) GLUCOSE RANDOM (BEAKER) 152 mg/dL 70-105 (test xjto=095) CALCIUM (BEAKER) (test 9.0 mg/dL 8.4-10.2 cqjt=491) EGFR (BEAKER) (test 27 mL/min/1.73 sq m ESTIMATED GFR IS NOT uxny=3988) ACCURATE CREATININE CLEARANCE IN PREDICTING GLOMERULAR FILTRATION RATE. ESTIMATED GFR IS NOT APPLICABLE FOR DIALYSIS PATIENTS. RAD, CHEST, 1 VIEW, NON [id number] 05:14:00Reason for exam:->chest tubesFINAL REPORT Chest one [...] MDReport Verified Date/Time: 2017 05:14:18 Reading Location: [address] Transitional Reading Room Electronically signed by: TAYLOR ALVARADO MD on07/27/2017 05:14 AMCALCIUM , [id number] 04:52:00 Test Item Value Reference Range Comments CALCIUM IONIZED (BEAKER) (test bkyp=539) 1.13 mmol/L 1.12-1.27 PH, BLOOD (BEAKER) (test erzs=0977) 7.40 BASIC METABOLIC [id number] 04:49:00 Test Item Value Reference Range Comments SODIUM (BEAKER) (test 146 meq/L 136-145 iyhm=617) POTASSIUM (BEAKER) (test 4.1 meq/L 3.5-5.1 qizp=538) CHLORIDE (BEAKER) (test 111 meq/L 98-107 govs=755) CO2 (BEAKER) (test 24 meq/L 22-29 vfgx=410) BLOOD UREA NITROGEN 42 mg/dL 7-21 (BEAKER) (test xpab=331) CREATININE (BEAKER) (test 2.41 mg/dL 0.57-1.25 hlqy=237) GLUCOSE RANDOM (BEAKER) 149 mg/dL 70-105 (test eest=560) CALCIUM (BEAKER) (test 9.5 mg/dL 8.4-10.2 lspb=275) EGFR (BEAKER) (test 26 mL/min/1.73 sq m ESTIMATED GFR IS NOT jymx=7722) ACCURATE CREATININE CLEARANCE IN PREDICTING GLOMERULAR FILTRATION RATE. ESTIMATED GFR IS NOT APPLICABLE FOR DIALYSIS PATIENTS. OXYGEN SATURATION, [id number] 04:36:00 Test Item Value Reference Range Comments O2 SATURATION (MEASURED) (BEAKER) (test wjic=2794) 59.2 % [id number] 04:35:00 Test Item Value Reference Range Comments POTASSIUM (BEAKER) (test wkil=412) 4.1 meq/L 3.5-5.1 [id number] 04:35:00 Test Item Value Reference Range Comments MAGNESIUM (BEAKER) (test jdqu=540) 2.0 mg/dL 1.6-2.6 [id number] 04:35:00 Test Item Value Reference Range Comments PHOSPHORUS (BEAKER) (test uvrg=310) 4.5 mg/dL 2.3-4.7 LACTIC ACID, ARTERIAL, WHOLE [id number] 04:16:00 Test Item Value Reference Range Comments LACTATE BLOOD ARTERIAL (2) (BEAKER) (test 1.3 mmol/L 0.5-2.2 pxuu=3756) Effective 09/27/2015: Units/Reference Range ChangeNew: 0.5-2.2 mmol/L Previous: 5 -20 mg/dLCBC W/PLT COUNT & AUTO [id number] 04:07:00 Test Item Value Reference Range Comments WHITE BLOOD CELL COUNT (BEAKER) (test utbn=299) 11.9 K/ L 3.5-10.5 RED BLOOD CELL COUNT (BEAKER) (test giiu=887) 2.67 M/ L 4.63-6.08 HEMOGLOBIN (BEAKER) (test atna=538) 9.0 GM/DL 13.7-17.5 HEMATOCRIT (BEAKER) (test vowc=596) 26.9 % 40.1-51.0 MEAN CORPUSCULAR VOLUME (BEAKER) (test kfal=365) 100.7 fL 79.0-92.2 MEAN CORPUSCULAR HEMOGLOBIN (BEAKER) (test 33.7 pg 25.7-32.2 synh=006) MEAN CORPUSCULAR HEMOGLOBIN CONC (BEAKER) (test 33.5 GM/DL 32.3-36.5 bnez=507) RED CELL DISTRIBUTION WIDTH (BEAKER) (test 14.9 % 11.6-14.4 upac=409) PLATELET COUNT (BEAKER) (test oeak=847) 137 K/CU MM 150-450 MEAN PLATELET VOLUME (BEAKER) (test qogu=633) 11.3 fL 9.4-12.4 NUCLEATED RED BLOOD CELLS (BEAKER) (test 0 /100 WBC 0-0 wqfi=180) NEUTROPHILS RELATIVE PERCENT (BEAKER) (test 84 % mkrj=175) LYMPHOCYTES RELATIVE PERCENT (BEAKER) (test 7 % qlqx=346) MONOCYTES RELATIVE PERCENT (BEAKER) (test 6 % tmgm=818) EOSINOPHILS RELATIVE PERCENT (BEAKER) (test 2 % fncb=711) BASOPHILS RELATIVE PERCENT (BEAKER) (test 0 % qsux=192) NEUTROPHILS ABSOLUTE COUNT (BEAKER) (test 10.05 K/ L 1.78-5.38 hkpk=463) LYMPHOCYTES ABSOLUTE COUNT (BEAKER) (test 0.78 K/ L 1.32-3.57 zhck=853) MONOCYTES ABSOLUTE COUNT (BEAKER) (test 0.70 K/ L 0.30-0.82 dpla=436) EOSINOPHILS ABSOLUTE COUNT (BEAKER) (test 0.26 K/ L 0.04-0.54 lhcl=823) BASOPHILS ABSOLUTE COUNT (BEAKER) (test 0.02 K/ L 0.01-0.08 naoq=885) IMMATURE GRANULOCYTES-RELATIVE PERCENT (BEAKER) 1 % 0-1 (test zlcp=6430) BASIC METABOLIC [id number] 20:45:00 Test Item Value Reference Range Comments SODIUM (BEAKER) (test 146 meq/L 136-145 qyzz=940) POTASSIUM (BEAKER) (test 4.1 meq/L 3.5-5.1 irmn=843) CHLORIDE (BEAKER) (test 111 meq/L 98-107 mdvu=695) CO2 (BEAKER) (test 24 meq/L 22-29 nrpd=951) BLOOD UREA NITROGEN 38 mg/dL 7-21 (BEAKER) (test hneb=892) CREATININE (BEAKER) (test 2.48 mg/dL 0.57-1.25 dpqj=844) GLUCOSE RANDOM (BEAKER) 109 mg/dL 70-105 (test heng=993) CALCIUM (BEAKER) (test 9.4 mg/dL 8.4-10.2 scfl=367) EGFR (BEAKER) (test 26 mL/min/1.73 sq m ESTIMATED GFR IS NOT khny=5517) ACCURATE CREATININE CLEARANCE IN PREDICTING GLOMERULAR FILTRATION RATE. ESTIMATED GFR IS NOT APPLICABLE FOR DIALYSIS PATIENTS. BLOOD GAS, [id number] 20:35:00 Test Item Value Reference Range Comments PH ARTERIAL (BEAKER) (test zche=620) 7.48 7.35-7.45 PCO2 ARTERIAL (BEAKER) (test lbki=689) 34 mmHg 35-45 PO2 ARTERIAL (BEAKER) (test pvjw=063) 114 mmHg 80-90 O2 SATURATION ARTERIAL (BEAKER) (test cmle=862) 98.4 % 96.0-97.0 HCO3 ARTERIAL (BEAKER) (test bxqa=499) 25 mmol/L 21-29 BASE EXCESS ARTERIAL (BEAKER) (test bmdg=397) 1.6 mmol/L -2.0-3.0 PATIENT TEMPERATURE (BEAKER) (test rwar=5349) 37.3 C FIO2 (BEAKER) (test qqnx=2377) 52.0 % BLOOD GAS, [id number] 19:21:00 Test Item Value Reference Range Comments PH ARTERIAL (BEAKER) (test ntvs=551) 7.47 7.35-7.45 PCO2 ARTERIAL (BEAKER) (test ndjb=398) 36 mmHg 35-45 PO2 ARTERIAL (BEAKER) (test srha=426) 141 mmHg 80-90 O2 SATURATION ARTERIAL (BEAKER) (test aokx=863) 98.9 % 96.0-97.0 HCO3 ARTERIAL (BEAKER) (test ikee=952) 26 mmol/L 21-29 BASE EXCESS ARTERIAL (BEAKER) (test mdcn=115) 2.3 mmol/L -2.0-3.0 PATIENT TEMPERATURE (BEAKER) (test izdv=6113) 37.1 C FIO2 (BEAKER) (test jndl=7510) 100.0 % BASIC METABOLIC [id number] 17:33:00 Test Item Value Reference Range Comments SODIUM (BEAKER) (test 146 meq/L 136-145 pckf=098) POTASSIUM (BEAKER) (test 4.2 meq/L 3.5-5.1 nkrl=424) CHLORIDE (BEAKER) (test 111 meq/L 98-107 lvsm=950) CO2 (BEAKER) (test 27 meq/L 22-29 hwcn=086) BLOOD UREA NITROGEN 34 mg/dL 7-21 (BEAKER) (test upip=382) CREATININE (BEAKER) (test 2.54 mg/dL 0.57-1.25 otdr=956) GLUCOSE RANDOM (BEAKER) 112 mg/dL 70-105 (test cknj=814) CALCIUM (BEAKER) (test 9.6 mg/dL 8.4-10.2 lodx=575) EGFR (BEAKER) (test 25 mL/min/1.73 sq m ESTIMATED GFR IS NOT vofv=0329) ACCURATE CREATININE CLEARANCE IN PREDICTING GLOMERULAR FILTRATION RATE. ESTIMATED GFR IS NOT APPLICABLE FOR DIALYSIS PATIENTS. [id number] 17:29:00 Test Item Value Reference Range Comments POTASSIUM (BEAKER) (test djwr=381) 4.2 meq/L 3.5-5.1 [id number] 17:29:00 Test Item Value Reference Range Comments MAGNESIUM (BEAKER) (test xnrn=196) 2.1 mg/dL 1.6-2.6 CBC W/PLT COUNT & AUTO [id number] 17:14:00 Test Item Value Reference Range Comments WHITE BLOOD CELL COUNT (BEAKER) (test ijls=549) 13.2 K/ L 3.5-10.5 RED BLOOD CELL COUNT (BEAKER) (test hzmb=654) 2.95 M/ L 4.63-6.08 HEMOGLOBIN (BEAKER) (test ywav=502) 9.6 GM/DL 13.7-17.5 HEMATOCRIT (BEAKER) (test izgo=427) 29.2 % 40.1-51.0 MEAN CORPUSCULAR VOLUME (BEAKER) (test zwmz=416) 99.0 fL 79.0-92.2 MEAN CORPUSCULAR HEMOGLOBIN (BEAKER) (test 32.5 pg 25.7-32.2 woqk=225) MEAN CORPUSCULAR HEMOGLOBIN CONC (BEAKER) (test 32.9 GM/DL 32.3-36.5 mwzf=986) RED CELL DISTRIBUTION WIDTH (BEAKER) (test 14.9 % 11.6-14.4 fplg=597) PLATELET COUNT (BEAKER) (test iwcq=942) 139 K/CU MM 150-450 MEAN PLATELET VOLUME (BEAKER) (test amou=779) 12.0 fL 9.4-12.4 NUCLEATED RED BLOOD CELLS (BEAKER) (test 0 /100 WBC 0-0 dhhu=226) NEUTROPHILS RELATIVE PERCENT (BEAKER) (test 83 % sxpg=702) LYMPHOCYTES RELATIVE PERCENT (BEAKER) (test 7 % uqan=454) MONOCYTES RELATIVE PERCENT (BEAKER) (test 7 % znzu=114) EOSINOPHILS RELATIVE PERCENT (BEAKER) (test 2 % gdlu=128) BASOPHILS RELATIVE PERCENT (BEAKER) (test 0 % tlme=965) NEUTROPHILS ABSOLUTE COUNT (BEAKER) (test 10.94 K/ L 1.78-5.38 wnry=360) LYMPHOCYTES ABSOLUTE COUNT (BEAKER) (test 0.91 K/ L 1.32-3.57 fwob=493) MONOCYTES ABSOLUTE COUNT (BEAKER) (test 0.98 K/ L 0.30-0.82 jekh=024) EOSINOPHILS ABSOLUTE COUNT (BEAKER) (test 0.22 K/ L 0.04-0.54 orht=048) BASOPHILS ABSOLUTE COUNT (BEAKER) (test 0.04 K/ L 0.01-0.08 lgmr=070) IMMATURE GRANULOCYTES-RELATIVE PERCENT (BEAKER) 1 % 0-1 (test tjij=0015) CALCIUM, [id number] 16:53:00 Test Item Value Reference Range Comments CALCIUM IONIZED (BEAKER) (test pfer=710) 1.16 mmol/L 1.12-1.27 PH, BLOOD (BEAKER) (test bscn=7272) 7.47 BLOOD GAS, [id number] 14:56:00 Test Item Value Reference Range Comments PH ARTERIAL (BEAKER) (test ncru=927) 7.48 7.35-7.45 PCO2 ARTERIAL (BEAKER) (test bner=794) 36 mmHg 35-45 PO2 ARTERIAL (BEAKER) (test wkyx=059) 150 mmHg 80-90 O2 SATURATION ARTERIAL (BEAKER) (test kydi=378) 99.1 % 96.0-97.0 HCO3 ARTERIAL (BEAKER) (test ftsh=870) 27 mmol/L 21-29 BASE EXCESS ARTERIAL (BEAKER) (test ilip=154) 2.9 mmol/L -2.0-3.0 PATIENT TEMPERATURE (BEAKER) (test thqv=9087) 36.7 C FIO2 (BEAKER) (test frvg=8007) 40.0 % [id number] 13:15:00 Test Item Value Reference Range Comments POTASSIUM (BEAKER) (test hlqt=566) 4.2 meq/L 3.5-5.1 [id number] 13:15:00 Test Item Value Reference Range Comments MAGNESIUM (BEAKER) (test hupl=229) 2.2 mg/dL 1.6-2.6 CALCIUM, [id number] 12:44:00 Test Item Value Reference Range Comments CALCIUM IONIZED (BEAKER) (test sgtt=663) 1.18 mmol/L 1.12-1.27 PH, BLOOD (BEAKER) (test hsgb=3494) 7.47 BASIC METABOLIC [id number] 10:34:00 Test Item Value Reference Range Comments SODIUM (BEAKER) (test 145 meq/L 136-145 rqpv=727) POTASSIUM (BEAKER) (test 4.0 meq/L 3.5-5.1 fzjk=375) CHLORIDE (BEAKER) (test 112 meq/L 98-107 sajs=081) CO2 (BEAKER) (test 23 meq/L 22-29 ovtb=153) BLOOD UREA NITROGEN 31 mg/dL 7-21 (BEAKER) (test bhje=381) CREATININE (BEAKER) (test 2.49 mg/dL 0.57-1.25 sdnu=240) GLUCOSE RANDOM (BEAKER) 127 mg/dL 70-105 (test eiti=274) CALCIUM (BEAKER) (test 10.1 mg/dL 8.4-10.2 bjuf=683) EGFR (BEAKER) (test 25 mL/min/1.73 sq m ESTIMATED GFR IS NOT klvx=2662) ACCURATE CREATININE CLEARANCE IN PREDICTING GLOMERULAR FILTRATION RATE. ESTIMATED GFR IS NOT APPLICABLE FOR DIALYSIS PATIENTS. BLOOD GAS, [id number] 09:31:00 Test Item Value Reference Range Comments PH ARTERIAL (BEAKER) (test lyyg=882) 7.48 7.35-7.45 PCO2 ARTERIAL (BEAKER) (test kkyz=123) 33 mmHg 35-45 PO2 ARTERIAL (BEAKER) (test qjlk=285) 112 mmHg 80-90 O2 SATURATION ARTERIAL (BEAKER) (test qxvv=777) 98.4 % 96.0-97.0 HCO3 ARTERIAL (BEAKER) (test puoo=633) 24 mmol/L 21-29 BASE EXCESS ARTERIAL (BEAKER) (test jbjr=874) 1.0 mmol/L -2.0-3.0 PATIENT TEMPERATURE (BEAKER) (test fjzw=4228) 36.7 C FIO2 (BEAKER) (test csrm=5179) 40.0 % RAD, CHEST, 1 VIEW, NON [id number] 08:44:00Reason for exam:->chest tubesFINAL REPORT CHEST ONE [...] DelatorreMDReport Verified Date/Time: 07/26/2017 08:44:33 Reading Location: [facility] [id number] Ortho Consult Reading Room Electronically signed by: KERI DELATORRE MD on 2017 08:44 AMPOCT-GLUCOSE [id number] 07:25:00 Test Item Value Reference Range Comments POC-GLUCOSE METER (BEAKER) 120 mg/dL 70-110 TESTED AT [address] (test xvba=6591) [facility] [address] BASIC METABOLIC [id number] 05:41:00 Test Item Value Reference Range Comments SODIUM (BEAKER) (test 145 meq/L 136-145 qjko=091) POTASSIUM (BEAKER) (test 4.1 meq/L 3.5-5.1 jevk=335) CHLORIDE (BEAKER) (test 112 meq/L 98-107 crfc=806) CO2 (BEAKER) (test 21 meq/L 22-29 lvbp=411) BLOOD UREA NITROGEN 29 mg/dL 7-21 (BEAKER) (test dmjq=229) CREATININE (BEAKER) (test 2.50 mg/dL 0.57-1.25 vcrl=193) GLUCOSE RANDOM (BEAKER) 126 mg/dL 70-105 (test klnr=764) CALCIUM (BEAKER) (test 8.3 mg/dL 8.4-10.2 odsg=525) EGFR (BEAKER) (test 25 mL/min/1.73 sq m ESTIMATED GFR IS NOT uuwi=7311) ACCURATE CREATININE CLEARANCE IN PREDICTING GLOMERULAR FILTRATION RATE. ESTIMATED GFR IS NOT APPLICABLE FOR DIALYSIS PATIENTS. OXYGEN SATURATION, [id number] 05:34:00 Test Item Value Reference Range Comments O2 SATURATION (MEASURED) (BEAKER) (test gpzz=3627) 59.2 % [id number] 05:33:00 Test Item Value Reference Range Comments PHOSPHORUS (BEAKER) (test yzpt=149) 4.7 mg/dL 2.3-4.7 [id number] 05:33:00 Test Item Value Reference Range Comments MAGNESIUM (BEAKER) (test axlp=303) 2.2 mg/dL 1.6-2.6 CALCIUM, [id number] 05:31:00 Test Item Value Reference Range Comments CALCIUM IONIZED (BEAKER) (test hqpv=509) 0.98 mmol/L 1.12-1.27 PH, BLOOD (BEAKER) (test ubyp=4506) 7.39 CBC W/PLT COUNT & AUTO [id number] 05:00:00 Test Item Value Reference Range Comments WHITE BLOOD CELL COUNT (BEAKER) (test rugc=030) 12.8 K/ L 3.5-10.5 RED BLOOD CELL COUNT (BEAKER) (test maqp=110) 2.87 M/ L 4.63-6.08 HEMOGLOBIN (BEAKER) (test lwje=683) 9.4 GM/DL 13.7-17.5 HEMATOCRIT (BEAKER) (test gqhv=120) 28.5 % 40.1-51.0 MEAN CORPUSCULAR VOLUME (BEAKER) (test qint=818) 99.3 fL 79.0-92.2 MEAN CORPUSCULAR HEMOGLOBIN (BEAKER) (test 32.8 pg 25.7-32.2 xssb=150) MEAN CORPUSCULAR HEMOGLOBIN CONC (BEAKER) (test 33.0 GM/DL 32.3-36.5 ezpo=911) RED CELL DISTRIBUTION WIDTH (BEAKER) (test 14.9 % 11.6-14.4 fozo=725) PLATELET COUNT (BEAKER) (test cgut=739) 134 K/CU MM 150-450 MEAN PLATELET VOLUME (BEAKER) (test fand=001) 12.5 fL 9.4-12.4 NUCLEATED RED BLOOD CELLS (BEAKER) (test 0 /100 WBC 0-0 yoxt=316) NEUTROPHILS RELATIVE PERCENT (BEAKER) (test 86 % tppt=226) LYMPHOCYTES RELATIVE PERCENT (BEAKER) (test 5 % tspl=593) MONOCYTES RELATIVE PERCENT (BEAKER) (test 7 % mpld=037) EOSINOPHILS RELATIVE PERCENT (BEAKER) (test 2 % qvmy=596) BASOPHILS RELATIVE PERCENT (BEAKER) (test 0 % vtvg=124) NEUTROPHILS ABSOLUTE COUNT (BEAKER) (test 10.99 K/ L 1.78-5.38 bfvb=507) LYMPHOCYTES ABSOLUTE COUNT (BEAKER) (test 0.60 K/ L 1.32-3.57 nhkd=279) MONOCYTES ABSOLUTE COUNT (BEAKER) (test 0.84 K/ L 0.30-0.82 qadt=172) EOSINOPHILS ABSOLUTE COUNT (BEAKER) (test 0.21 K/ L 0.04-0.54 pwfx=615) BASOPHILS ABSOLUTE COUNT (BEAKER) (test 0.03 K/ L 0.01-0.08 zcfo=362) IMMATURE GRANULOCYTES-RELATIVE PERCENT (BEAKER) 1 % 0-1 (test chkr=5180) LACTIC ACID, ARTERIAL, WHOLE [id number] 04:58:00 Test Item Value Reference Range Comments LACTATE BLOOD ARTERIAL (2) (BEAKER) (test 1.2 mmol/L 0.5-2.2 axyp=8762) Effective 09/27/2015: Units/Reference Range ChangeNew: 0.5-2.2 mmol/L Previous: 5 -20 mg/dLPOCT-GLUCOSE [id number] 04:19:00 Test Item Value Reference Range Comments POC-GLUCOSE METER (BEAKER) 136 mg/dL 70-110 TESTED AT [address] (test vdrz=9330) [facility] [address] POCT-GLUCOSE [id number] 00:39:00 Test Item Value Reference Range Comments POC-GLUCOSE METER (BEAKER) 142 mg/dL 70-110 TESTED AT [address] (test sqkf=6604) [facility] [address] POCT-GLUCOSE [id number] 23:06:00 Test Item Value Reference Range Comments POC-GLUCOSE METER (BEAKER) 128 mg/dL 70-110 TESTED AT [address] (test sngl=1545) [place] [address] BASIC METABOLIC [id number] 21:24:00 Test Item Value Reference Range Comments SODIUM (BEAKER) (test 143 meq/L 136-145 beao=023) POTASSIUM (BEAKER) (test 4.3 meq/L 3.5-5.1 shvy=457) CHLORIDE (BEAKER) (test 111 meq/L 98-107 moed=210) CO2 (BEAKER) (test 24 meq/L 22-29 wnuw=200) BLOOD UREA NITROGEN 27 mg/dL 7-21 (BEAKER) (test quur=628) CREATININE (BEAKER) (test 2.57 mg/dL 0.57-1.25 aklq=608) GLUCOSE RANDOM (BEAKER) 125 mg/dL 70-105 (test sukn=766) CALCIUM (BEAKER) (test 8.3 mg/dL 8.4-10.2 yopg=840) EGFR (BEAKER) (test 25 mL/min/1.73 sq m ESTIMATED GFR IS NOT iqqq=5385) ACCURATE CREATININE CLEARANCE IN PREDICTING GLOMERULAR FILTRATION RATE. ESTIMATED GFR IS NOT APPLICABLE FOR DIALYSIS PATIENTS. POCT-GLUCOSE [id number] 20:14:00 Test Item Value Reference Range Comments POC-GLUCOSE METER (BEAKER) 126 mg/dL 70-110 TESTED AT [address] (test vrqp=5338) [place] [address] BASIC METABOLIC [id number] 18:38:00 Test Item Value Reference Range Comments SODIUM (BEAKER) (test 143 meq/L 136-145 pjta=303) POTASSIUM (BEAKER) (test 4.3 meq/L 3.5-5.1 dfvg=322) CHLORIDE (BEAKER) (test 112 meq/L 98-107 zzpi=702) CO2 (BEAKER) (test 23 meq/L 22-29 sxlm=399) BLOOD UREA NITROGEN 27 mg/dL 7-21 (BEAKER) (test hwwy=578) CREATININE (BEAKER) (test 2.58 mg/dL 0.57-1.25 pvyt=619) GLUCOSE RANDOM (BEAKER) 128 mg/dL 70-105 (test iyri=079) CALCIUM (BEAKER) (test 8.2 mg/dL 8.4-10.2 jhog=499) EGFR (BEAKER) (test 24 mL/min/1.73 sq m ESTIMATED GFR IS NOT kpvq=0874) ACCURATE CREATININE CLEARANCE IN PREDICTING GLOMERULAR FILTRATION RATE. ESTIMATED GFR IS NOT APPLICABLE FOR DIALYSIS PATIENTS. [id number] 18:37:00 Test Item Value Reference Range Comments POTASSIUM (BEAKER) (test ektm=506) 4.3 meq/L 3.5-5.1 [id number] 18:37:00 Test Item Value Reference Range Comments MAGNESIUM (BEAKER) (test cvgf=752) 2.3 mg/dL 1.6-2.6 POCT-GLUCOSE [id number] 18:21:00 Test Item Value Reference Range Comments POC-GLUCOSE METER (BEAKER) 135 mg/dL 70-110 TESTED AT [address] (test cbeq=0272) [place] [address] POCT-GLUCOSE [id number] 18:21:00 Test Item Value Reference Range Comments POC-GLUCOSE METER (BEAKER) 140 mg/dL 70-110 TESTED AT [address] (test tkxu=8111) [place] [id number] POCT-GLUCOSE [id number] 18:21:00 Test Item Value Reference Range Comments POC-GLUCOSE METER (BEAKER) 132 mg/dL 70-110 TESTED AT [address] (test xnuq=8483) [place] [id number] CALCIUM, [id number] 18:06:00 Test Item Value Reference Range Comments CALCIUM IONIZED (BEAKER) (test sujn=689) 1.06 mmol/L 1.12-1.27 PH, BLOOD (BEAKER) (test jusj=8782) 7.44 BLOOD GAS, [id number] 18:06:00 Test Item Value Reference Range Comments PH ARTERIAL (BEAKER) (test mita=096) 7.44 7.35-7.45 PCO2 ARTERIAL (BEAKER) (test xpld=568) 32 mmHg 35-45 PO2 ARTERIAL (BEAKER) (test qgvg=711) 99 mmHg 80-90 O2 SATURATION ARTERIAL (BEAKER) (test daww=655) 97.7 % 96.0-97.0 HCO3 ARTERIAL (BEAKER) (test wycp=309) 21 mmol/L 21-29 BASE EXCESS ARTERIAL (BEAKER) (test qhlm=341) -2.3 mmol/L -2.0-3.0 PATIENT TEMPERATURE (BEAKER) (test adns=0723) 37.0 C FIO2 (BEAKER) (test tiro=8766) 40.0 % LACTIC ACID, ARTERIAL, WHOLE [id number] 13:20:00 Test Item Value Reference Range Comments LACTATE BLOOD ARTERIAL (2) (BEAKER) (test 1.4 mmol/L 0.5-2.2 exet=7522) Effective 09/27/2015: Units/Reference Range ChangeNew: 0.5-2.2 mmol/L Previous: 5 -20 mg/dLHEMOGLOBIN AND [id number] 13:01:00 Test Item Value Reference Range Comments HEMOGLOBIN (BEAKER) (test ilma=012) 9.7 GM/DL 13.7-17.5 HEMATOCRIT (BEAKER) (test zhoe=027) 29.2 % 40.1-51.0 POCT-GLUCOSE [id number] 12:24:00 Test Item Value Reference Range Comments POC-GLUCOSE METER (BEAKER) 113 mg/dL 70-110 TESTED AT [address] (test vlva=3921) [facility] [address] POCT-GLUCOSE [id number] 12:24:00 Test Item Value Reference Range Comments POC-GLUCOSE METER (BEAKER) 147 mg/dL 70-110 TESTED AT [address] (test coof=1879) [facility] [address] POCT-GLUCOSE [id number] 12:24:00 Test Item Value Reference Range Comments POC-GLUCOSE METER (BEAKER) 160 mg/dL 70-110 TESTED AT [address] (test qypp=5752) [facility] [address] POCT-GLUCOSE [id number] 12:24:00 Test Item Value Reference Range Comments POC-GLUCOSE METER (BEAKER) 145 mg/dL 70-110 TESTED AT [address] (test agie=9692) [facility] [address] POCT-GLUCOSE [id number] 12:24:00 Test Item Value Reference Range Comments POC-GLUCOSE METER (BEAKER) 145 mg/dL 70-110 TESTED AT [address] (test ufdr=1274) [facility] [address] POCT-GLUCOSE [id number] 12:24:00 Test Item Value Reference Range Comments POC-GLUCOSE METER (BEAKER) 159 mg/dL 70-110 TESTED AT [facility] [address] [facility] (test wcls=9189) [facility] [address] POCT-GLUCOSE [id number] 12:24:00 Test Item Value Reference Range Comments POC-GLUCOSE METER (BEAKER) 170 mg/dL 70-110 TESTED AT [facility] [address] [facility] (test cbxc=1102) [facility] [address] [id number] 10:59:00 Test Item Value Reference Range Comments PHOSPHORUS (BEAKER) (test ered=973) 3.1 mg/dL 2.3-4.7 [id number] 10:59:00 Test Item Value Reference Range Comments MAGNESIUM (BEAKER) (test fjlo=906) 2.3 mg/dL 1.6-2.6 BASIC METABOLIC [id number] 10:59:00 Test Item Value Reference Range Comments SODIUM (BEAKER) (test 143 meq/L 136-145 udof=165) POTASSIUM (BEAKER) (test 4.6 meq/L 3.5-5.1 qnpo=491) CHLORIDE (BEAKER) (test 112 meq/L 98-107 eunz=679) CO2 (BEAKER) (test 20 meq/L 22-29 wtbg=041) BLOOD UREA NITROGEN 23 mg/dL 7-21 (BEAKER) (test rptb=243) CREATININE (BEAKER) (test 2.18 mg/dL 0.57-1.25 sidt=233) GLUCOSE RANDOM (BEAKER) 147 mg/dL 70-105 (test ccbl=009) CALCIUM (BEAKER) (test 8.1 mg/dL 8.4-10.2 xbsd=924) EGFR (BEAKER) (test 30 mL/min/1.73 sq m ESTIMATED GFR IS NOT aiuo=7412) ACCURATE CREATININE CLEARANCE IN PREDICTING GLOMERULAR FILTRATION RATE. ESTIMATED GFR IS NOT APPLICABLE FOR DIALYSIS PATIENTS. CBC W/PLT COUNT & AUTO [id number] 10:26:00 Test Item Value Reference Range Comments WHITE BLOOD CELL COUNT (BEAKER) (test isog=207) 14.9 K/ L 3.5-10.5 RED BLOOD CELL COUNT (BEAKER) (test ajsg=382) 3.03 M/ L 4.63-6.08 HEMOGLOBIN (BEAKER) (test ytbm=530) 10.0 GM/DL 13.7-17.5 HEMATOCRIT (BEAKER) (test fypd=962) 30.9 % 40.1-51.0 MEAN CORPUSCULAR VOLUME (BEAKER) (test ilap=954) 102.0 fL 79.0-92.2 MEAN CORPUSCULAR HEMOGLOBIN (BEAKER) (test 33.0 pg 25.7-32.2 pxxk=927) MEAN CORPUSCULAR HEMOGLOBIN CONC (BEAKER) (test 32.4 GM/DL 32.3-36.5 akmb=150) RED CELL DISTRIBUTION WIDTH (BEAKER) (test 14.8 % 11.6-14.4 yxco=572) PLATELET COUNT (BEAKER) (test leap=504) 155 K/CU MM 150-450 MEAN PLATELET VOLUME (BEAKER) (test hdmv=993) 12.6 fL 9.4-12.4 NUCLEATED RED BLOOD CELLS (BEAKER) (test 0 /100 WBC 0-0 hsgu=319) NEUTROPHILS RELATIVE PERCENT (BEAKER) (test 84 % qmcj=802) LYMPHOCYTES RELATIVE PERCENT (BEAKER) (test 4 % ahjt=156) MONOCYTES RELATIVE PERCENT (BEAKER) (test 11 % txlh=306) EOSINOPHILS RELATIVE PERCENT (BEAKER) (test 1 % szao=424) BASOPHILS RELATIVE PERCENT (BEAKER) (test 0 % mkdi=523) NEUTROPHILS ABSOLUTE COUNT (BEAKER) (test 12.43 K/ L 1.78-5.38 ttbk=010) LYMPHOCYTES ABSOLUTE COUNT (BEAKER) (test 0.56 K/ L 1.32-3.57 mjqy=096) MONOCYTES ABSOLUTE COUNT (BEAKER) (test 1.62 K/ L 0.30-0.82 eoko=635) EOSINOPHILS ABSOLUTE COUNT (BEAKER) (test 0.14 K/ L 0.04-0.54 unve=752) BASOPHILS ABSOLUTE COUNT (BEAKER) (test 0.04 K/ L 0.01-0.08 oymt=673) IMMATURE GRANULOCYTES-RELATIVE PERCENT (BEAKER) 1 % 0-1 (test yltc=8263) BLOOD GAS, [id number] 09:05:00 Test Item Value Reference Range Comments PH ARTERIAL (BEAKER) (test pztm=641) 7.40 7.35-7.45 PCO2 ARTERIAL (BEAKER) (test legh=006) 35 mmHg 35-45 PO2 ARTERIAL (BEAKER) (test tlzu=721) 212 mmHg 80-90 O2 SATURATION ARTERIAL (BEAKER) (test gffr=098) 99.4 % 96.0-97.0 HCO3 ARTERIAL (BEAKER) (test xtas=889) 22 mmol/L 21-29 BASE EXCESS ARTERIAL (BEAKER) (test fuwv=475) -2.7 mmol/L -2.0-3.0 PATIENT TEMPERATURE (BEAKER) (test libm=8508) 37.0 C FIO2 (BEAKER) (test nqbv=7300) 100.0 % POCT-GLUCOSE [id number] 07:07:00 Test Item Value Reference Range Comments POC-GLUCOSE METER (BEAKER) 160 mg/dL 70-110 TESTED AT [address] (test ferk=5213) [place] [address] POCT-GLUCOSE [id number] 07:07:00 Test Item Value Reference Range Comments POC-GLUCOSE METER (BEAKER) 200 mg/dL 70-110 TESTED AT [address] (test enuc=9985) [place] [id number] POCT-GLUCOSE [id number] 07:07:00 Test Item Value Reference Range Comments POC-GLUCOSE METER (BEAKER) 213 mg/dL 70-110 TESTED AT [address] (test vhki=6321) [place] [id number] BLOOD GAS, [id number] 01:53:00 Test Item Value Reference Range Comments PH ARTERIAL (BEAKER) (test tokz=711) 7.45 7.35-7.45 PCO2 ARTERIAL (BEAKER) (test gtrk=965) 28 mmHg 35-45 PO2 ARTERIAL (BEAKER) (test jbdu=054) 81 mmHg 80-90 O2 SATURATION ARTERIAL (BEAKER) (test eyjs=632) 96.8 % 96.0-97.0 HCO3 ARTERIAL (BEAKER) (test fabv=850) 19 mmol/L 21-29 BASE EXCESS ARTERIAL (BEAKER) (test wbpb=163) -4.1 mmol/L -2.0-3.0 PATIENT TEMPERATURE (BEAKER) (test wfli=0077) 36.2 C FIO2 (BEAKER) (test gklp=1885) 36.0 % RAD, CHEST, 1 VIEW, NON [id number] 01:46:00while patient is intubated or has chest [...] MDReport Verified Date/Time: 07/25/2017 01:46:51 Reading Location: [address] Reading Room Electronicallysigned by: DAYSI TORRES M.D. on 07/25/2017 01:46 AMPOCT-GLUCOSE [id number] 00:23:00 Test Item Value Reference Range Comments POC-GLUCOSE METER (BEAKER) 229 mg/dL 70-110 TESTED AT [address] (test lxsc=7720) [place] [id number] POCT-GLUCOSE [id number] 00:23:00 Test Item Value Reference Range Comments POC-GLUCOSE METER (BEAKER) 220 mg/dL 70-110 TESTED AT [address] (test lfiz=1673) [place] [id number] POCT-GLUCOSE [id number] 22:34:00 Test Item Value Reference Range Comments POC-GLUCOSE METER (BEAKER) 247 mg/dL 70-110 TESTED AT [address] (test xswa=8421) [place] [id number] POCT-GLUCOSE [id number] 22:34:00 Test Item Value Reference Range Comments POC-GLUCOSE METER (BEAKER) 254 mg/dL 70-110 TESTED AT [address] (test ruae=7110) [place] [id number] BLOOD GAS, [id number] 22:08:00 Test Item Value Reference Range Comments PH ARTERIAL (BEAKER) (test ednu=496) 7.35 7.35-7.45 PCO2 ARTERIAL (BEAKER) (test exrl=488) 36 mmHg 35-45 PO2 ARTERIAL (BEAKER) (test arvh=764) 68 mmHg 80-90 O2 SATURATION ARTERIAL (BEAKER) (test trgv=299) 92.8 % 96.0-97.0 HCO3 ARTERIAL (BEAKER) (test ovdi=353) 19 mmol/L 21-29 BASE EXCESS ARTERIAL (BEAKER) (test ansx=840) -5.7 mmol/L -2.0-3.0 PATIENT TEMPERATURE (BEAKER) (test vwxd=8690) 37.0 C FIO2 (BEAKER) (test winn=8193) 40.0 % POTASSIUM-STAT [id number] 22:08:00 Test Item Value Reference Range Comments POTASSIUM (BEAKER) (test udaj=936) 3.9 meq/L 3.6-5.5 [id number] 21:24:00 Test Item Value Reference Range Comments GLUCOSE RANDOM (BEAKER) (test qlan=820) 232 mg/dL 70-105 [id number] 21:24:00 Test Item Value Reference Range Comments POTASSIUM (BEAKER) (test vasv=289) 3.8 meq/L 3.5-5.1 POCT-GLUCOSE [id number] 19:12:00 Test Item Value Reference Range Comments POC-GLUCOSE METER (BEAKER) 207 mg/dL 70-110 TESTED AT [facility] [address] [facility] (test vscl=5073) [facility] [address] URINALYSIS W/ [id number] 17:20:00 Test Item Value Reference Range Comments COLOR (BEAKER) (test ovlj=000) Yellow CLARITY (BEAKER) (test zkwn=187) Hazy SPECIFIC GRAVITY UA (BEAKER) (test jsrt=113) 1.018 1.001-1.035 PH UA (BEAKER) (test kfse=339) 5.0 5.0-8.0 PROTEIN UA (BEAKER) (test tcwl=591) 20 mg/dL Negative GLUCOSE UA (BEAKER) (test ctbb=323) Negative Negative KETONES UA (BEAKER) (test upfe=564) Negative Negative BILIRUBIN UA (BEAKER) (test olew=226) Negative Negative BLOOD UA (BEAKER) (test fhdx=422) Moderate Negative NITRITE UA (BEAKER) (test nzup=195) Negative Negative LEUKOCYTE ESTERASE UA (BEAKER) (test ezll=494) Negative Negative UROBILINOGEN UA (BEAKER) (test jybs=999) 0.2 mg/dL 0.2-1.0 RBC UA (BEAKER) (test gpjt=175) 114 /HPF WBC UA (BEAKER) (test mkrc=482) 17 /HPF BACTERIA (BEAKER) (test ivih=940) Few MUCUS (BEAKER) (test hjjk=4761) Occasional SQUAMOUS EPITHELIAL (BEAKER) (test osfl=811) 2 /HPF HYALINE CASTS (BEAKER) (test xvwx=304) 9 /LPF SOURCE(BEAKER) (test wyre=7956) Urine, Frances BLOOD GAS, [id number] 17:02:00 Test Item Value Reference Range Comments PH ARTERIAL (BEAKER) (test byqe=135) 7.32 7.35-7.45 PCO2 ARTERIAL (BEAKER) (test egwm=817) 43 mmHg 35-45 PO2 ARTERIAL (BEAKER) (test jtyo=116) 175 mmHg 80-90 O2 SATURATION ARTERIAL (BEAKER) (test rypq=221) 99.1 % 96.0-97.0 HCO3 ARTERIAL (BEAKER) (test vjby=719) 22 mmol/L 21-29 BASE EXCESS ARTERIAL (BEAKER) (test kzzz=587) -4.5 mmol/L -2.0-3.0 PATIENT TEMPERATURE (BEAKER) (test ashf=3185) 36.7 C FIO2 (BEAKER) (test tllu=6730) 60.0 % RAD, CHEST, 1 VIEW, NON [id number] 15:57:00Reason for exam:->s./p OHSShould this be performed at the bedside?->YesFINAL REPORT Chest one view compared to July 15, 2016 Discussion: Cardiacprominence, drainage tubes, right IJ line in place. There is pulmonary congestion and atelectasis. There may be small effusions but no pneumothorax. Signed: Taty Osborne Verified Date/Time: 07/24/2017 15:57:34 Reading Location: [facility] B1 [id number] Consult Reading Room [id number] 15:25:00 Test Item Value Reference Range Comments MAGNESIUM (BEAKER) (test 2.5 mg/dL 1.6-2.6 Specimen slightly hemolyzed yfeo=628) [id number] 15:25:00 Test Item Value Reference Range Comments PHOSPHORUS (BEAKER) (test 3.5 mg/dL 2.3-4.7 Specimen slightly hemolyzed gwvc=446) BASIC METABOLIC [id number] 15:25:00 Test Item Value Reference Range Comments SODIUM (BEAKER) (test 142 meq/L 136-145 nwqi=800) POTASSIUM (BEAKER) (test 4.0 meq/L 3.5-5.1 Specimen slightly waaw=129) hemolyzed CHLORIDE (BEAKER) (test 112 meq/L 98-107 qkdz=127) CO2 (BEAKER) (test 19 meq/L 22-29 tvuo=949) BLOOD UREA NITROGEN 17 mg/dL 7-21 (BEAKER) (test iexw=865) CREATININE (BEAKER) (test 1.35 mg/dL 0.57-1.25 Specimen slightly yolj=503) hemolyzed GLUCOSE RANDOM (BEAKER) 158 mg/dL 70-105 (test sfsn=032) CALCIUM (BEAKER) (test 8.5 mg/dL 8.4-10.2 cvut=758) EGFR (BEAKER) (test 52 mL/min/1.73 sq m ESTIMATED GFR IS NOT dfxe=1237) ACCURATE CREATININE CLEARANCE IN PREDICTING GLOMERULAR FILTRATION RATE. ESTIMATED GFR IS NOT APPLICABLE FOR DIALYSIS PATIENTS. CBC W/PLT COUNT & AUTO [id number] 15:17:00 Test Item Value Reference Range Comments WHITE BLOOD CELL COUNT (BEAKER) (test yhft=046) 17.9 K/ L 3.5-10.5 RED BLOOD CELL COUNT (BEAKER) (test qile=357) 3.27 M/ L 4.63-6.08 HEMOGLOBIN (BEAKER) (test bhhv=530) 10.8 GM/DL 13.7-17.5 HEMATOCRIT (BEAKER) (test lwjp=544) 32.9 % 40.1-51.0 MEAN CORPUSCULAR VOLUME (BEAKER) (test ijxg=365) 100.6 fL 79.0-92.2 MEAN CORPUSCULAR HEMOGLOBIN (BEAKER) (test 33.0 pg 25.7-32.2 styn=865) MEAN CORPUSCULAR HEMOGLOBIN CONC (BEAKER) (test 32.8 GM/DL 32.3-36.5 zric=093) RED CELL DISTRIBUTION WIDTH (BEAKER) (test 14.2 % 11.6-14.4 vpkk=332) PLATELET COUNT (BEAKER) (test kmtg=575) 126 K/CU MM 150-450 MEAN PLATELET VOLUME (BEAKER) (test flkb=322) 11.1 fL 9.4-12.4 NUCLEATED RED BLOOD CELLS (BEAKER) (test 0 /100 WBC 0-0 lgqj=408) NEUTROPHILS RELATIVE PERCENT (BEAKER) (test 82 % rizd=071) LYMPHOCYTES RELATIVE PERCENT (BEAKER) (test 12 % tsam=659) MONOCYTES RELATIVE PERCENT (BEAKER) (test 5 % aeop=467) EOSINOPHILS RELATIVE PERCENT (BEAKER) (test 0 % tssm=245) BASOPHILS RELATIVE PERCENT (BEAKER) (test 0 % eitt=985) NEUTROPHILS ABSOLUTE COUNT (BEAKER) (test 14.59 K/ L 1.78-5.38 wlhz=596) LYMPHOCYTES ABSOLUTE COUNT (BEAKER) (test 2.18 K/ L 1.32-3.57 feih=464) MONOCYTES ABSOLUTE COUNT (BEAKER) (test 0.84 K/ L 0.30-0.82 ovgu=196) EOSINOPHILS ABSOLUTE COUNT (BEAKER) (test 0.04 K/ L 0.04-0.54 iiql=268) BASOPHILS ABSOLUTE COUNT (BEAKER) (test 0.02 K/ L 0.01-0.08 mxqg=183) IMMATURE GRANULOCYTES-RELATIVE PERCENT (BEAKER) 1 % 0-1 (test vaib=0743) LACTIC ACID, ARTERIAL, WHOLE [id number] 15:12:00 Test Item Value Reference Range Comments LACTATE BLOOD ARTERIAL (2) 2.7 mmol/L 0.5-2.2 Specimen slightly hemolyzed (BEAKER) (test jtjb=5279) Effective 09/27/2015: Units/Reference Range ChangeNew: 0.5-2.2 mmol/L Previous: 5 -20 mg/dLOXYGEN SATURATION, [id number] 15:10:00 Test Item Value Reference Range Comments O2 SATURATION (MEASURED) (BEAKER) (test ircz=8960) 78.9 % From distal port of IJ central venous catheterCALCIUM, [id number] 15:07: 00 Test Item Value Reference Range Comments CALCIUM IONIZED (BEAKER) (test rxkl=480) 1.11 mmol/L 1.12-1.27 PH, BLOOD (BEAKER) (test xtmb=4550) 7.28 BLOOD GAS, [id number] 15:07:00 Test Item Value Reference Range Comments PH ARTERIAL (BEAKER) (test bsev=599) 7.28 7.35-7.45 PCO2 ARTERIAL (BEAKER) (test cokh=656) 45 mmHg 35-45 PO2 ARTERIAL (BEAKER) (test wpwi=238) 119 mmHg 80-90 O2 SATURATION ARTERIAL (BEAKER) (test zcmj=724) 97.9 % 96.0-97.0 HCO3 ARTERIAL (BEAKER) (test bjrw=991) 21 mmol/L 21-29 BASE EXCESS ARTERIAL (BEAKER) (test abnr=452) -6.2 mmol/L -2.0-3.0 PATIENT TEMPERATURE (BEAKER) (test rhin=2335) 36.3 C FIO2 (BEAKER) (test fgwy=3421) 60.0 % [id number] 14:18:00 Test Item Value Reference Range Comments ACTIVATED CLOTTING TIME 114 sec TESTED AT [place] [id number] (BEAKER) (test gpiy=530) [place] [address] [id number] 14:18:00 Test Item Value Reference Range Comments ACTIVATED CLOTTING TIME 131 sec TESTED AT [place] [id number] [address] (BEAKER) (test bnub=669) [place] [address] [id number] 14:18:00 Test Item Value Reference Range Comments ACTIVATED CLOTTING TIME 532 sec TESTED AT [place] [id number] [address] (BEAKER) (test uyoj=257) [place] [address] [id number] 14:18:00 Test Item Value Reference Range Comments ACTIVATED CLOTTING TIME 598 sec TESTED AT [place] [id number] [address] (BEAKER) (test srug=032) [place] [address] [id number] 14:18:00 Test Item Value Reference Range Comments ACTIVATED CLOTTING TIME 786 sec TESTED AT [facility] [address] [facility] (BEAKER) (test kyax=540) [facility] [address] [id number] 14:18:00 Test Item Value Reference Range Comments ACTIVATED CLOTTING TIME 786 sec TESTED AT [facility] [address] [facility] (BEAKER) (test fabz=454) [facility] [address] PLATELET [id number] 13:19:00 Test Item Value Reference Range Comments PLATELET COUNT (BEAKER) (test tjpj=359) 77 K/CU MM 150-450 CALCIUM, [id number] 13:01:00 Test Item Value Reference Range Comments CALCIUM IONIZED (BEAKER) (test ohhc=667) 1.22 mmol/L 1.12-1.27 PH, BLOOD (BEAKER) (test xeho=8794) 7.32 BLOOD GAS, [id number] 13:01:00 Test Item Value Reference Range Comments PH ARTERIAL (BEAKER) (test kufk=690) 7.34 7.35-7.45 PCO2 ARTERIAL (BEAKER) (test waki=799) 39 mmHg 35-45 PO2 ARTERIAL (BEAKER) (test dpvn=409) 192 mmHg 80-90 O2 SATURATION ARTERIAL (BEAKER) (test pjwx=645) 99.3 % 96.0-97.0 HCO3 ARTERIAL (BEAKER) (test dilv=709) 20 mmol/L 21-29 BASE EXCESS ARTERIAL (BEAKER) (test iebi=609) -5.3 mmol/L -2.0-3.0 PATIENT TEMPERATURE (BEAKER) (test guhm=8867) 35.9 C FIO2 (BEAKER) (test csij=0025) 90.0 % GLUCOSE-STAT [id number] 13:01:00 Test Item Value Reference Range Comments GLUCOSE RANDOM (BEAKER) (test fyjr=389) 164 mg/dL 70-110 HGB/HCT (H&H) - STAT [id number] 13:01:00 Test Item Value Reference Range Comments HEMOGLOBIN (BEAKER) (test ooei=369) 11.9 g/dL 13.0-16.8 HEMATOCRIT (BEAKER) (test rhsm=313) 35.0 % 40.0-50.0 SODIUM NA-STAT [id number] 13:00:00 Test Item Value Reference Range Comments SODIUM (BEAKER) (test kkqt=654) 136 meq/L 135-148 POTASSIUM-STAT [id number] 13:00:00 Test Item Value Reference Range Comments POTASSIUM (BEAKER) (test xyds=516) 4.3 meq/L 3.6-5.5 PROTHROMBIN [id number] 12:44:00 Test Item Value Reference Range Comments PROTIME (BEAKER) (test aaib=526) 22.5 seconds 11.7-14.7 INR (BEAKER) (test clyd=121) 2.0 <=5.9 RECOMMENDED COUMADIN/WARFARIN INR THERAPY RANGESSTANDARD DOSE: 2.0 - 3.0 Includes: PROPHYLAXIS forvenous thrombosis, systemic embolization; TREATMENT for venous thrombosis and/or pulmonary embolus.HIGH RISK: Target INR is 2.5-3.5 for patients with mechanical heart valves.[id number] 12:44:00 Test Item Value Reference Range Comments PARTIAL THROMBOPLASTIN TIME (BEAKER) (test 33.1 seconds 22.5-36.0 iavg=751) [id number] 12:44:00 Test Item Value Reference Range Comments FIBRINOGEN LEVEL (BEAKER) (test vnhe=604) 287 mg/dl 225-434 BLOOD GAS, [id number] 12:25:00 Test Item Value Reference Range Comments PH ARTERIAL (BEAKER) (test kqjr=472) 7.30 7.35-7.45 PCO2 ARTERIAL (BEAKER) (test tbxn=606) 41 mmHg 35-45 PO2 ARTERIAL (BEAKER) (test hupk=441) 175 mmHg 80-90 O2 SATURATION ARTERIAL (BEAKER) (test nvtm=689) 99.1 % 96.0-97.0 HCO3 ARTERIAL (BEAKER) (test bejc=683) 20 mmol/L 21-29 BASE EXCESS ARTERIAL (BEAKER) (test xkak=030) -6.5 mmol/L -2.0-3.0 PATIENT TEMPERATURE (BEAKER) (test zsuf=9850) 35.7 C FIO2 (BEAKER) (test onqe=6597) 90.0 % GLUCOSE-STAT [id number] 12:25:00 Test Item Value Reference Range Comments GLUCOSE RANDOM (BEAKER) (test epsf=726) 162 mg/dL 70-110 HGB/HCT (H&H) - STAT [id number] 12:25:00 Test Item Value Reference Range Comments HEMOGLOBIN (BEAKER) (test eldh=471) 11.1 g/dL 13.0-16.8 HEMATOCRIT (BEAKER) (test hjyy=766) 33.0 % 40.0-50.0 CALCIUM, [id number] 12:25:00 Test Item Value Reference Range Comments CALCIUM IONIZED (BEAKER) (test ljrp=369) 1.08 mmol/L 1.12-1.27 PH, BLOOD (BEAKER) (test dzaz=5872) 7.28 SODIUM NA-STAT [id number] 12:24:00 Test Item Value Reference Range Comments SODIUM (BEAKER) (test pzpx=139) 136 meq/L 135-148 POTASSIUM-STAT [id number] 12:24:00 Test Item Value Reference Range Comments POTASSIUM (BEAKER) (test bxkl=034) 4.7 meq/L 3.6-5.5 PROTHROMBIN [id number] 11:44:00 Test Item Value Reference Range Comments PROTIME (BEAKER) (test zcja=240) 31.1 seconds 11.7-14.7 INR (BEAKER) (test epey=098) 3.0 <=5.9 RECOMMENDED COUMADIN/WARFARIN INR THERAPY RANGESSTANDARD DOSE: 2.0 - 3.0 Includes: PROPHYLAXIS forvenous thrombosis, systemic embolization; TREATMENT for venous thrombosis and/or pulmonary embolus.HIGH RISK: Target INR is 2.5-3.5 for patients with mechanical heart valves.[id number] 11:44:00 Test Item Value Reference Range Comments FIBRINOGEN LEVEL (BEAKER) (test ftgh=805) 335 mg/dl 225-434 PLATELET [id number] 11:32:00 Test Item Value Reference Range Comments PLATELET COUNT (BEAKER) (test avau=059) 109 K/CU MM 150-450 SODIUM NA-STAT [id number] 11:28:00 Test Item Value Reference Range Comments SODIUM (BEAKER) (test klrt=946) 136 meq/L 135-148 BLOOD GAS, [id number] 11:28:00 Test Item Value Reference Range Comments PH ARTERIAL (BEAKER) (test utcm=712) 7.38 7.35-7.45 PCO2 ARTERIAL (BEAKER) (test zlre=766) 39 mmHg 35-45 PO2 ARTERIAL (BEAKER) (test zevo=045) 402 mmHg 80-90 O2 SATURATION ARTERIAL (BEAKER) (test bwhg=314) 99.8 % 96.0-97.0 HCO3 ARTERIAL (BEAKER) (test kabk=945) 23 mmol/L 21-29 BASE EXCESS ARTERIAL (BEAKER) (test xonv=902) -2.6 mmol/L -2.0-3.0 PATIENT TEMPERATURE (BEAKER) (test vbeo=2440) 35.6 C FIO2 (BEAKER) (test yfxa=9525) 80.0 % POTASSIUM-STAT [id number] 11:28:00 Test Item Value Reference Range Comments POTASSIUM (BEAKER) (test btws=470) 5.6 meq/L 3.6-5.5 GLUCOSE-STAT [id number] 11:28:00 Test Item Value Reference Range Comments GLUCOSE RANDOM (BEAKER) (test qfov=263) 168 mg/dL 70-110 HGB/HCT (H&H) - STAT [id number] 11:28:00 Test Item Value Reference Range Comments HEMOGLOBIN (BEAKER) (test ofvf=011) 11.2 g/dL 13.0-16.8 HEMATOCRIT (BEAKER) (test ldjo=742) 33.0 % 40.0-50.0 POTASSIUM-STAT [id number] 11:03:00 Test Item Value Reference Range Comments POTASSIUM (BEAKER) (test yfiu=573) 4.6 meq/L 3.6-5.5 BLOOD GAS, [id number] 11:03:00 Test Item Value Reference Range Comments PH ARTERIAL (BEAKER) (test finy=166) 7.28 7.35-7.45 PCO2 ARTERIAL (BEAKER) (test jmup=132) 43 mmHg 35-45 PO2 ARTERIAL (BEAKER) (test glqf=175) 332 mmHg 80-90 O2 SATURATION ARTERIAL (BEAKER) (test unzv=643) 99.7 % 96.0-97.0 HCO3 ARTERIAL (BEAKER) (test pknl=748) 21 mmol/L 21-29 BASE EXCESS ARTERIAL (BEAKER) (test ikoz=288) -6.7 mmol/L -2.0-3.0 PATIENT TEMPERATURE (BEAKER) (test tenb=1537) 33.1 C FIO2 (BEAKER) (test pbnx=2240) 80.0 % SODIUM NA-STAT [id number] 11:03:00 Test Item Value Reference Range Comments SODIUM (BEAKER) (test qtne=745) 134 meq/L 135-148 GLUCOSE-STAT [id number] 11:03:00 Test Item Value Reference Range Comments GLUCOSE RANDOM (BEAKER) (test dnoq=468) 157 mg/dL 70-110 HGB/HCT (H&H) - STAT [id number] 11:03:00 Test Item Value Reference Range Comments HEMOGLOBIN (BEAKER) (test yile=239) 11.8 g/dL 13.0-16.8 HEMATOCRIT (BEAKER) (test xpmn=827) 35.0 % 40.0-50.0 BLOOD GAS, [id number] 11:01:00 Test Item Value Reference Range Comments PH VENOUS (BEAKER) (test qrgw=693) 7.27 7.32-7.42 PCO2 VENOUS (BEAKER) (test dzuj=321) 45 mmHg 41-51 PO2 VENOUS (BEAKER) (test rhyx=353) 46 mmHg 25-40 O2 SATURATION VENOUS (BEAKER) (test gxtd=663) 85.7 % 40.0-70.0 HCO3 VENOUS (BEAKER) (test hcrb=895) 22 mmol/L 21-29 BASE EXCESS VENOUS (BEAKER) (test bpzc=143) -6.5 mmol/L -2.0-3.0 PATIENT TEMPERATURE (BEAKER) (test dain=0729) 33.1 C FIO2 (BEAKER) (test xfkr=4707) 80.0 % BLOOD GAS, [id number] 09:32:00 Test Item Value Reference Range Comments PH ARTERIAL (BEAKER) (test ifag=881) 7.38 7.35-7.45 PCO2 ARTERIAL (BEAKER) (test nfgb=776) 36 mmHg 35-45 PO2 ARTERIAL (BEAKER) (test asoc=440) 341 mmHg 80-90 O2 SATURATION ARTERIAL (BEAKER) (test iywl=683) 99.7 % 96.0-97.0 HCO3 ARTERIAL (BEAKER) (test pnxc=185) 21 mmol/L 21-29 BASE EXCESS ARTERIAL (BEAKER) (test hshk=583) -4.0 mmol/L -2.0-3.0 PATIENT TEMPERATURE (BEAKER) (test oieg=5504) 35.9 C FIO2 (BEAKER) (test eiat=6972) 90.0 % GLUCOSE-STAT [id number] 09:32:00 Test Item Value Reference Range Comments GLUCOSE RANDOM (BEAKER) (test ffcm=168) 151 mg/dL 70-110 SODIUM NA-STAT [id number] 09:31:00 Test Item Value Reference Range Comments SODIUM (BEAKER) (test avdb=188) 136 meq/L 135-148 POTASSIUM-STAT [id number] 09:31:00 Test Item Value Reference Range Comments POTASSIUM (BEAKER) (test qbdw=069) 4.2 meq/L 3.6-5.5 HGB/HCT (H&H) - STAT [id number] 09:31:00 Test Item Value Reference Range Comments HEMOGLOBIN (BEAKER) (test xkoz=387) 16.5 g/dL 13.0-16.8 HEMATOCRIT (BEAKER) (test nbnp=527) 49.0 % 40.0-50.0 RAD, CHEST, 2 [id number] 12:00:00Reason for Exam:->Pre-OpFINAL REPORT TECHNIQUE: Frontal and [...] Mcdaniels Verified Date/Time: 07/22/2017 12:00:46 Reading Location: [facility] Radiology Reading Room HEMOGLOBIN [id number] 11:51:00 Test Item Value Reference Range Comments HEMOGLOBIN A1C (BEAKER) (test bfpf=720) 7.6 % 4.3-6.1 BASIC METABOLIC [id number] 10:24:00 Test Item Value Reference Range Comments SODIUM (BEAKER) (test 139 meq/L 136-145 xboa=930) POTASSIUM (BEAKER) (test 4.3 meq/L 3.5-5.1 jpeb=021) CHLORIDE (BEAKER) (test 110 meq/L 98-107 bgrc=200) CO2 (BEAKER) (test 21 meq/L 22-29 mkol=140) BLOOD UREA NITROGEN 21 mg/dL 7-21 (BEAKER) (test kzir=495) CREATININE (BEAKER) (test 1.38 mg/dL 0.57-1.25 lkbf=002) GLUCOSE RANDOM (BEAKER) 147 mg/dL 70-105 (test uhtm=494) CALCIUM (BEAKER) (test 8.6 mg/dL 8.4-10.2 fiio=859) EGFR (BEAKER) (test 50 mL/min/1.73 sq m ESTIMATED GFR IS NOT aibn=8789) ACCURATE CREATININE CLEARANCE IN PREDICTING GLOMERULAR FILTRATION RATE. ESTIMATED GFR IS NOT APPLICABLE FOR DIALYSIS PATIENTS. PROTHROMBIN [id number] 10:21:00 Test Item Value Reference Range Comments PROTIME (BEAKER) (test lukd=887) 14.9 seconds 11.7-14.7 INR (BEAKER) (test durg=318) 1.2 <=5.9 RECOMMENDED COUMADIN/WARFARIN INR THERAPY RANGESSTANDARD DOSE: 2.0 - 3.0 Includes: PROPHYLAXIS forvenous thrombosis, systemic embolization; TREATMENT for venous thrombosis and/or pulmonary embolus.HIGH RISK: Target INR is 2.5-3.5 for patients with mechanical heart valves.CBC W/PLT COUNT & AUTO [id number] 10:11:00 Test Item Value Reference Range Comments WHITE BLOOD CELL COUNT (BEAKER) (test mdsk=429) 6.3 K/ L 3.5-10.5 RED BLOOD CELL COUNT (BEAKER) (test fowu=879) 4.77 M/ L 4.63-6.08 HEMOGLOBIN (BEAKER) (test viji=919) 15.8 GM/DL 13.7-17.5 HEMATOCRIT (BEAKER) (test fbkz=188) 47.0 % 40.1-51.0 MEAN CORPUSCULAR VOLUME (BEAKER) (test pyhs=125) 98.5 fL 79.0-92.2 MEAN CORPUSCULAR HEMOGLOBIN (BEAKER) (test 33.1 pg 25.7-32.2 jnka=073) MEAN CORPUSCULAR HEMOGLOBIN CONC (BEAKER) (test 33.6 GM/DL 32.3-36.5 gnwi=111) RED CELL DISTRIBUTION WIDTH (BEAKER) (test 14.3 % 11.6-14.4 ihep=455) PLATELET COUNT (BEAKER) (test acaq=050) 161 K/CU MM 150-450 MEAN PLATELET VOLUME (BEAKER) (test fwqd=430) 11.2 fL 9.4-12.4 NUCLEATED RED BLOOD CELLS (BEAKER) (test 0 /100 WBC 0-0 xozv=284) NEUTROPHILS RELATIVE PERCENT (BEAKER) (test 72 % lilv=516) LYMPHOCYTES RELATIVE PERCENT (BEAKER) (test 18 % cfex=992) MONOCYTES RELATIVE PERCENT (BEAKER) (test 8 % mkdf=617) EOSINOPHILS RELATIVE PERCENT (BEAKER) (test 1 % wsfh=274) BASOPHILS RELATIVE PERCENT (BEAKER) (test 1 % hwbu=118) NEUTROPHILS ABSOLUTE COUNT (BEAKER) (test 4.47 K/ L 1.78-5.38 lnsl=807) LYMPHOCYTES ABSOLUTE COUNT (BEAKER) (test 1.15 K/ L 1.32-3.57 vlfz=102) MONOCYTES ABSOLUTE COUNT (BEAKER) (test 0.48 K/ L 0.30-0.82 lnqb=849) EOSINOPHILS ABSOLUTE COUNT (BEAKER) (test 0.07 K/ L 0.04-0.54 pimo=987) BASOPHILS ABSOLUTE COUNT (BEAKER) (test 0.04 K/ L 0.01-0.08 aflw=474) IMMATURE GRANULOCYTES-RELATIVE PERCENT (BEAKER) 1 % 0-1 (test nrnp=9914)
[2018-05-29 21:04] LABS: Protime INR 1.71
[2018-05-29 21:16] LABS: Absolute Lymphocytes (CBC) 1.3 K/uL (0.7-4.9); Absolute Monocytes 0.8 K/uL (0.1-1.3); Absolute Neutrophil 9.2 K/uL (1.8-8.0); Basophils % 0.5 % (0-1.3); Eosinophils % 1.3 % (0-4.4); Hematocrit 42.8 % (39.6-49.0); Lymphocytes % 11.1 % (15.3-44.8); MPV 9.2 fL (7.6-11.3); Monocytes % 7.4 % (3.3-12.3); RBC Red Blood Cell Count 4.87 M/uL (4.33-5.43)
[2018-05-29 21:19] LABS: ALT/SGPT 27 U/L (12-78); AST/SGOT 20 U/L (15-37); Alkaline Phosphatase 94 U/L (45-117); BUN Blood Urea Nitrogen 38 mg/dL (7-18); Bicarbonate 26 mmol/L (21-32); Bilirubin Direct < 0.1 mg/dL (0-0.2); Bilirubin Total 0.3 mg/dL (0.2-1.0); Glucose Level 117 mg/dL (74-106); Magnesium 2.4 mg/dL (1.8-2.4); Potassium 4.9 mmol/L (3.5-5.1); Protein, Total 9.2 g/dL (6.4-8.2); Sodium Level 136 mmol/L (136-145)
[2018-05-29 21:27] LABS: Anisocytosis 2+; Blood Morphology Comment NOTED (NOT SEEN); Platelet Estimate INCR; Platelets, Giant NOTED; Urine White Blood Cell Casts OK
[2018-05-29 21:28] LABS: Rouleau NOTED
[2018-05-29 22:45] LABS: Urine Bacteria <20 /HPF (NONE SEEN); Urine Culture Reflex Order NOT NEEDED; Urine RBC NONE SEEN /HPF (NONE SEEN)
[2018-05-29 22:47] LABS: Urine Blood NEGATIVE (NEG); Urine Glucose NEGATIVE (NEG); Urine Protein NEGATIVE (NEG)
--- NOTE | 2018-05-29 23:19 | ER ---
Nurse's Notes [facility] Name: Hudson Pacheco Age: 73 yrs Sex: Male : 1945 Arrival Date: 05/29/2018 Time: 17:34 Bed 28 Private MD: Dylon Omer V Diagnosis: Cellulitis of buttock;Pressure ulcer of buttock Presentation: 05/29 17:48 Presenting complaint: Child states: my dad was here Friday, with wound on butt; wears a hj wound back; was sent home with antibiotics; today, the home health nurse, came and told us, the wound is worse; denies fever and chills, BP was low, 99/56 at home;. Transition of care: patient was not received from another setting of care. Onset of symptoms was May 29, 2018. Risk Assessment: Do you want to hurt yourself or someone else? Patient reports no desire to harm self or others. Initial Sepsis Screen: Does the patient meet any 2 criteria? Yes Does the patient have a suspected source of infection? Yes: Skin breakdown/wound. Care prior to arrival: None. 17:48 Method Of Arrival: Ambulatory 17:48 Acuity: ESTELLE 3 hj Triage Assessment: 17:53 General: Appears in no apparent distress. uncomfortable, Behavior is calm, cooperative, hj appropriate for age. Pain: Complains of pain in left gluteus hunter. Historical: - Allergies: 17:53 No Known Drug Allergies; hj - Home Meds: 05/30 00:14 allopurinol 100 mg Oral tab 1 tab once daily [Active]; amiodarone 200 mg Oral tab 1 tab tl3 once daily [Active]; atorvastatin 40 mg Oral tab 1 tab once daily [Active]; Centrum Silver Oral daily [Active]; escitalopram oxalate 10 mg Oral tab 1 tab once daily [Active]; Lasix 40 mg oral tab 1 tab once daily [Active]; pantoprazole 40 mg Oral TbEC 1 tab once daily [Active]; Xarelto 20 mg Oral tab 1 tab once daily [Active]; 00:22 Zinc Sulfate Oral daily [Active]; magnesium oral oral [Active]; carvedilol 3.125 mg tl3 oral tab 1 tab daily [Active]; - PMHx: 05/29 17:53 "fluid on the lungs"; Atrial Fib; CHF; CVA; Diabetes - NIDDM; Gout; Hyperlipidemia; hj - PSHx: 17:53 Triple ByPass; Colostomy; hj - Immunization history:: Adult Immunizations up to date. - Social history:: Smoking status: Patient/guardian denies using tobacco, Patient/guardian denies using alcohol. - Ebola Screening: : Patient negative for fever greater than or equal to 101.5 degrees Fahrenheit, and additional compatible Ebola Virus Disease symptoms Patient denies exposure to infectious person Patient denies travel to an Ebola-affected area in the 21 days before illness onset. Screenin:53 Abuse screen: Denies threats or abuse. Denies injuries from another. Nutritional hj screening: No deficits noted. Tuberculosis screening: No symptoms or risk factors identified. Fall Risk None identified. Assessment: 19:47 General: Appears uncomfortable, well groomed, well developed, well nourished, Behavior tl3 is calm, cooperative, appropriate for age. Pain: Complains of pain in buttocks and left gluteus hunter. Neuro: Level of Consciousness is awake, alert, obeys commands, Oriented to person, place, time, situation, Appropriate for age. Cardiovascular: Patient's skin is warm and dry. Respiratory: Airway is patent Respiratory effort is even, unlabored, Respiratory pattern is regular, symmetrical. GI: No signs and/or symptoms were reported involving the gastrointestinal system. : No signs and/or symptoms were reported regarding the genitourinary system. EENT: No signs and/or symptoms were reported regarding the EENT system. Derm: No signs and/or symptoms reported regarding the dermatologic system. 19:49 General: pt was seen here three days ago, put on ABX for his decubitus located on the tl3 left buttock, wound is getting worse, home health sent pt here for additional follow up. 21:00 Reassessment: Patient appears in no apparent distress at this time. No changes from tl3 previously documented assessment. Patient and/or family updated on plan of care and expected duration. Pain level reassessed. Patient is alert, oriented x 3, equal unlabored respirations, skin warm/dry/pink. wound cleaned and redressed, Ole Page assessed wound and obtained a wound culture sample. 22:19 Reassessment: Patient appears in no apparent distress at this time. No changes from tl3 previously documented assessment. Patient and/or family updated on plan of care and expected duration. Pain level reassessed. Patient is alert, oriented x 3, equal unlabored respirations, skin warm/dry/pink. pt attempting to provide urine specimen, juice provided. 23:58 Reassessment: Patient appears in no apparent distress at this time. No changes from tl3 previously documented assessment. Patient and/or family updated on plan of care and expected duration. Pain level reassessed. Patient is alert, oriented x 3, equal unlabored respirations, skin warm/dry/pink. Abx started, pt eating in no acute distress. 05/30 00:35 Reassessment: Patient appears in no apparent distress at this time. No changes from tl3 previously documented assessment. Patient and/or family updated on plan of care and expected duration. Pain level reassessed. Patient is alert, oriented x 3, equal unlabored respirations, skin warm/dry/pink. Vital Signs: 05/29 17:54 BP 129 / 74; Pulse 70; Resp 18; Temp 96.7(O); Pulse Ox 97% on R/A; Weight 103.42 kg; hj Height 6 ft. 0 in. (182.88 cm); Pain 10/10; 21:00 BP 151 / 73; Pulse 60; Resp 18; Pulse Ox 99% on R/A; tl3 22:19 BP 154 / 75; Pulse 61; Resp 18; Pulse Ox 97% on R/A; tl3 23:58 BP 125 / 68; Pulse 56; Resp 18; Pulse Ox 96% on R/A; tl3 17:54 Body Mass Index 30.92 (103.42 kg, 182.88 cm) ED Course: 17:34 Patient arrived in ED. mr 17:35 Dylon Omer MD is Private Physician. mr 17:52 Triage completed. hj 17:53 Arm band placed on left wrist. hj 17:54 Patient has correct armband on for positive identification. Placed in gown. Bed in low hj position. Call light in reach. Side rails up X 1. 19:41 Gayatri Espinoza, ZO is Primary Nurse. tl3 19:46 Ole Wick PA is PHCP. cp 19:46 Hari Mendes MD is Attending Physician. cp 19:47 No provider procedures requiring assistance completed. tl3 20:59 Initial lab(s) drawn, by me, sent to lab. Wound culture swab sent to lab. Inserted tl3 saline lock: 20 gauge in left wrist, using aseptic technique. Blood collected. 23:18 Dylon Omer MD is Hospitalizing Provider. cp 05/30 00:35 Patient admitted, IV remains in place. tl3 Administered Medications: 05/29 23:58 Drug: Zosyn 3.375 grams Route: IVPB; Infused Over: 60 mins; Site: left forearm; tl3 Delivery: Primary tubing; 05/30 00:36 Follow up: IV Status: Infusion continued upon transfer tl3 00:36 Drug: fentaNYL (PF) 50 mcg Route: IVP; Infused Over: 2 mins; Site: left forearm; tl3 00:36 Follow up: Response: No adverse reaction tl3 Outcome: 05/29 23:19 Decision to Hospitalize by Provider. cp 05/30 00:35 Admitted to Tele accompanied by tech, via stretcher, with chart, Report called to tl3 ZO Allan Condition: stable Instructed on the need for admit, Demonstrated understanding of instructions. 00:47 Patient left the ED. tl3 Signatures: Mei Valdez Sabas Abernathy, RN RN Ole Camargo PA PA cp Lowrey, Tammy, ZO RN tl3 Corrections: (The following items were deleted from the chart) 05/29 17:56 17:48 Initial Sepsis Screen: Does the patient meet any 2 criteria? No. Patient's initial sepsis screen is negative. Does the patient have a suspected source of infection? No. Patient's initial sepsis screen is negative. 17:57 17:54 Pulse 70bpm; Resp 18bpm; Pulse Ox 97% RA; Temp 96.7F Oral; 103.42 kg; Height 6 hj ft. 0 in.; BMI: 30.9; Pain 10/10; hj
--- NOTE | 2018-05-29 23:19 | EDPHYS ---
Physician Documentation [facility] Name: Hudson Pacheco Age: 73 yrs Sex: Male : 1945 Arrival Date: 05/29/2018 Time: 17:34 Bed 28 Private MD: Dylon Omer V ED Physician Hari Mendes HPI: 05/29 20:35 This 73 yrs old Male presents to ER via Ambulatory with complaints of cp Infected Wound. 20:35 The patient presents with cellulitis of the coccyx area. cp 20:35 Description: draining, erythematous, swollen. Onset: The symptoms/episode cp began/occurred gradually, and became worse today. Associated signs and symptoms: Pertinent negatives: fever. 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 reports home health nurse observed area to with increased redness and to be draining today and requested patient be evaluated in ED. Historical: - Allergies: 17:53 No Known Drug Allergies; hj - Home Meds: 05/30 00:14 allopurinol 100 mg Oral tab 1 tab once daily [Active]; amiodarone 200 mg Oral tab 1 tab tl3 once daily [Active]; atorvastatin 40 mg Oral tab 1 tab once daily [Active]; Centrum Silver Oral daily [Active]; escitalopram oxalate 10 mg Oral tab 1 tab once daily [Active]; Lasix 40 mg oral tab 1 tab once daily [Active]; pantoprazole 40 mg Oral TbEC 1 tab once daily [Active]; Xarelto 20 mg Oral tab 1 tab once daily [Active]; 00:22 Zinc Sulfate Oral daily [Active]; magnesium oral oral [Active]; carvedilol 3.125 mg tl3 oral tab 1 tab daily [Active]; - PMHx: 05/29 17:53 "fluid on the lungs"; Atrial Fib; CHF; CVA; Diabetes - NIDDM; Gout; Hyperlipidemia; hj - PSHx: 17:53 Triple ByPass; Colostomy; hj - Immunization history:: Adult Immunizations up to date. - Social history:: Smoking status: Patient/guardian denies using tobacco, Patient/guardian denies using alcohol. - Ebola Screening: : Patient negative for fever greater than or equal to 101.5 degrees Fahrenheit, and additional compatible Ebola Virus Disease symptoms Patient denies exposure to infectious person Patient denies travel to an Ebola-affected area in the 21 days before illness onset. ROS: 20:40 Constitutional: Negative for body aches, chills, fever, poor PO intake. cp 20:40 Eyes: Negative for injury, pain, redness, and discharge. cp 20:40 Cardiovascular: Negative for chest pain, edema, palpitations. 20:40 Respiratory: Negative for cough, shortness of breath, wheezing. 20:40 Abdomen/GI: Negative for abdominal pain, nausea, vomiting, and diarrhea. 20:40 Skin: Positive for cellulitis, of the coccyx area. 20:40 Neuro: Negative for altered mental status. 20:40 All other systems are negative. Exam: 20:45 Constitutional: The patient appears in no acute distress, alert, awake, cp non-diaphoretic, non-toxic, well developed, well nourished. 20:45 Head/Face: Normocephalic, atraumatic. cp 20:45 Eyes: Periorbital structures: appear normal, Conjunctiva: normal, no exudate, no injection, Sclera: no appreciated abnormality, Lids and lashes: appear normal, bilaterally. 20:45 ENT: External ear(s): are unremarkable, Nose: is normal, Mouth: Lips: moist, Oral mucosa: moist, Posterior pharynx: Airway: no evidence of obstruction, patent. 20:45 Chest/axilla: Inspection: normal, Palpation: is normal, no crepitus, no tenderness. 20:45 Cardiovascular: Rate: normal, Rhythm: irregularly irregular, Pulses: Pulses are 2+ in right radial artery and left radial artery. JVD: is not appreciated. 20:45 Respiratory: the patient does not display signs of respiratory distress, Respirations: normal, no use of accessory muscles, no retractions, no splinting, no tachypnea, labored breathing, is not present, Breath sounds: are clear throughout, no decreased breath sounds, no stridor, no wheezing. 20:45 Abdomen/GI: Inspection: abdomen appears normal, Bowel sounds: active, all quadrants, Palpation: abdomen is soft and non-tender, in all quadrants. 20:45 Skin: cellulitis, that is moderate, irregular, on the coccyx area and buttocks, noted large open wound coccyx area w/o drainage expressed. 20:45 Neuro: Orientation: to person, place \\T\\ time. Mentation: is normal. cp 21:43 ECG was reviewed by the Attending Physician. Vital Signs: 17:54 BP 129 / 74; Pulse 70; Resp 18; Temp 96.7(O); Pulse Ox 97% on R/A; Weight 103.42 kg; hj Height 6 ft. 0 in. (182.88 cm); Pain 10/10; 21:00 BP 151 / 73; Pulse 60; Resp 18; Pulse Ox 99% on R/A; tl3 22:19 BP 154 / 75; Pulse 61; Resp 18; Pulse Ox 97% on R/A; tl3 23:58 BP 125 / 68; Pulse 56; Resp 18; Pulse Ox 96% on R/A; tl3 17:54 Body Mass Index 30.92 (103.42 kg, 182.88 cm) hj MDM: 19:48 Patient medically screened. cp 21:00 Differential diagnosis: abscess, cellulitis, sepsis, osteomyelitis. cp 23:10 Data reviewed: vital signs, nurses notes, lab test result(s). cp 23:15 Physician consultation: Vicente Elaine MD was called at 23:15, was contacted at 23:15, regarding admission, to the medical/surgical unit. patient's condition. 05/29 20:32 Order name: Basic Metabolic Panel; Complete Time: 23:01 cp 05/29 23:01 Interpretation: Normal except: GLUC 117; BUN 38; CRE 2.27; GFR 28. cp 05/29 20:32 Order name: CBC with Diff; Complete Time: 23:01 cp 05/29 23:01 Interpretation: Normal except: WBC 11.5; RDW 22.3; ELIGIO% 79.7; LYM% 11.1; NEUT A 9.2. cp 05/29 20:32 Order name: LFT's; Complete Time: 23:01 cp 05/29 23:01 Interpretation: Normal except: TP 9.2; ALB 3.0; GLOB 6.2; A/G 0.5. cp 05/29 20:32 Order name: Magnesium; Complete Time: 23:01 cp 05/29 20:32 Order name: PT-INR; Complete Time: 23:01 cp 05/29 20:32 Order name: Urine Microscopic Only; Complete Time: 23:01 cp 05/29 20:32 Order name: Procalcitonin; Complete Time: 23:01 cp 05/29 20:32 Order name: Lactate; Complete Time: 23:01 cp 05/29 20:57 Order name: Wound Culture cp 05/29 21:23 Order name: CBC Smear Scan; Complete Time: 23:01 EDMS 05/29 22:33 Order name: Urine Dipstick--Ancillary (enter results); Complete Time: 23:01 em1 05/30 00:13 Order name: Basic Metabolic Panel EDMS 05/30 00:13 Order name: CBC with Automated Diff EDMS 05/29 20:32 Order name: EKG; Complete Time: 20:33 cp 05/29 20:32 Order name: Cardiac monitoring; Complete Time: 20:58 cp 05/29 20:32 Order name: EKG - Nurse/Tech; Complete Time: 20:58 cp 05/29 20:32 Order name: IV Saline Lock; Complete Time: 20:58 cp 05/29 20:32 Order name: Labs collected and sent; Complete Time: 20:58 cp 05/29 20:32 Order name: O2 Per Protocol; Complete Time: 20:58 cp 05/29 20:32 Order name: O2 Sat Monitoring; Complete Time: 20:58 cp 05/29 20:32 Order name: Urine Dipstick-Ancillary (obtain specimen); Complete Time: 22:32 cp 05/30 00:13 Order name: CONS Physician Consult EDMS 05/30 00:13 Order name: Regular EDMS EC:43 Rate is 56 beats/min. Rhythm is irregularly irregular. QRS interval is normal. QT cp interval is normal. Interpreted by me. Reviewed by me. Administered Medications: 23:58 Drug: Zosyn 3.375 grams Route: IVPB; Infused Over: 60 mins; Site: left forearm; tl3 Delivery: Primary tubing; 05/30 00:36 Follow up: IV Status: Infusion continued upon transfer tl3 00:36 Drug: fentaNYL (PF) 50 mcg Route: IVP; Infused Over: 2 mins; Site: left forearm; tl3 00:36 Follow up: Response: No adverse reaction tl3 Disposition: 03:08 Co-signature as Attending Physician, Hari Mendes MD. pkl Disposition: 05/29/18 23:19 Hospitalization ordered by Dylon Omer for Inpatient Admission. Preliminary diagnosis are Cellulitis of buttock, Pressure ulcer of buttock. - Bed requested for Telemetry/MedSurg (Inpatient). - Status is Inpatient Admission. tl3 - Condition is Stable. - Problem is an ongoing problem. - Symptoms have improved. UTI on Admission? No Signatures: Dispatcher [employer] [facility] Hari Mendes MD MD pkl Joaquin, Henry RN RN Ole Wick PA PA Marielena David, ZO RN Gayatri Espinoza RN RN tl3 Corrections: (The following items were deleted from the chart) 05/29 22:10 20:58 Wound Culture+BA.LAB.BRZ ordered. [facility] 05/30 00:11 05/29 23:19 Hospitalization Ordered by Dylon Omer MD for Inpatient Admission. cg Preliminary diagnosis is Cellulitis of buttock; Pressure ulcer of buttock. Bed requested for Telemetry/MedSurg (Inpatient). Status is Inpatient Admission. Condition is Stable. Problem is an ongoing problem. Symptoms have improved. UTI on Admission? No. cp 05/30 00:47 00:11 05/29/2018 23:19 Hospitalization Ordered by Dylon Omer MD for Inpatient tl3 Admission. Preliminary diagnosis is Cellulitis of buttock; Pressure ulcer of buttock. Bed requested for Telemetry/MedSurg (Inpatient). Status is Inpatient Admission. Condition is Stable. Problem is an ongoing problem. Symptoms have improved. UTI on Admission? No. cg
[2018-05-29] MEDS ORDERED: FENTANYL CITR 100 MCG/2 ML ONE (23:54)
[2018-05-29] MEDS ORDERED: PIPER/TAZO/NS 3.375gm 3.375 GM/100 ML BAG ONE (23:55)
[2018-05-29] MEDS ORDERED: VANCOMYCIN 1 GM/250 ML BAG ONE (23:55)
[2018-05-29] MEDS ORDERED: MORPHINE 2 MG/ML SYR IV PRN (23:57)
[2018-05-29] MEDS ORDERED: Pharmacy Consult 1 EA IV PRN (23:57)
[2018-05-29] MEDS ORDERED: ONDANSETRON 4 MG/2 ML VIAL IV PRN (23:57)
[2018-05-30] MEDS ORDERED: VANCOMYCIN 1 GM in NA CHLORIDE 0.9% 250 ML IVPB ONE (02:29)
[2018-05-30] MEDS: ACETAMINOPHEN 500 MG TAB PO PRN (03:50)
[2018-05-30] MEDS ORDERED: PIPER/TAZO/NS 3.375gm 3.375 GM/100 ML BAG IVPB SCH (06:00)
[2018-05-30] MEDS ORDERED: CARVEDILOL 3.125 MG TAB PO SCH (06:00)
[2018-05-30 06:03] LABS: Potassium 4.3 mmol/L (3.5-5.1)
[2018-05-30] MEDS ORDERED: PIPERACIL/TAZO 3.375 GM VIAL IV ONE (06:03)
[2018-05-30 06:04] LABS: Absolute Lymphocytes (CBC) 1.6 K/uL (0.7-4.9); Absolute Monocytes 0.8 K/uL (0.1-1.3); Absolute Neutrophil 5.8 K/uL (1.8-8.0); Basophils % 0.8 % (0-1.3); Eosinophils % 2.8 % (0-4.4); Hematocrit 37.4 % (39.6-49.0); Lymphocytes % 18.6 % (15.3-44.8); MPV 9.3 fL (7.6-11.3); Monocytes % 9.4 % (3.3-12.3); RBC Red Blood Cell Count 4.34 M/uL (4.33-5.43)
[2018-05-30] MEDS ORDERED: NA CHLORIDE 0.9% 100 ML IV ONE (06:06)
[2018-05-30] MEDS ORDERED: MORPHINE 4 MG/ML SYR IV PRN (07:08)
[2018-05-30 08:31] VITALS: BMI 30.9
[2018-05-30] MEDS: AMIODARONE HCL 200 MG TAB PO SCH (09:00)
[2018-05-30] MEDS ORDERED: AMIODARONE HCL 200 MG TAB PO SCH (09:00)
[2018-05-30] MEDS ORDERED: RIVAROXABAN 10 MG TABLET PO SCH (09:00)
[2018-05-30] MEDS: ALLOPURINOL 100 MG TAB PO SCH (09:23)
[2018-05-30] MEDS: ASCORBIC ACID 500 MG TABLET PO SCH ×2 (09:23→21:34)
[2018-05-30] MEDS: MAGNESIUM OXIDE 400 MG TAB PO SCH (09:23)
[2018-05-30] MEDS: PANTOPRAZOLE 40MG TABLET PO SCH (09:23)
[2018-05-30] MEDS: ZINC SULFATE 220 MG CAP PO SCH (09:23)
[2018-05-30] MEDS: ESCITALOPRAM 20 MG TAB PO SCH (09:24)
[2018-05-30] MEDS: SPIRONOLACTONE 25 MG TABLET PO SCH (09:24)
[2018-05-30] MEDS: FUROSEMIDE 40 MG TABLET PO SCH (09:25)
[2018-05-30] MEDS: CARVEDILOL 3.125 MG TAB PO SCH ×2 (09:25→21:35)
--- NOTE | 2018-05-30 09:52 | P.HP ---
Certification for Inpatient Patient admitted to: Inpatient With expected LOS: >2 Midnights Practitioner: I am a practitioner with admitting privileges, knowledge of patient current condition, hospital course, and medical plan of care. Services: Services provided to patient in accordance with Admission requirements found in Title 42 Section 412.3 of the Code of Federal Regulations Patient History Date of Service: 05/30/18 Reason for admission: WOULD FOLLOW UP. History of Present Illness: MR. ELAINE HAS DEEP SACRAL WOUND THAT IS TAKEN CARE BY DR. HERRERA AT WOUND [facility]ENTER. HE SAW DR. HERRERA ABOUT 10 DAYS AGO. PER HE WAS STABLE BUT A FEW DAYS LATER GOT SOME BROWN LIQUID FROM AROUND THE WOUND R LATERAL TO IT. I HAD ASKED NURSE TO CONTACT DR. HERRERA I AM NOT HIS WOUND DOCTOR. HE COMES TO ER AND WAS SENT HOME ON ABX. LATER NOW COMES TO ER AGAIN SOME MORE BLOODY DISCHARGE CAME OUT FROM THE RIGHT LATERAL EDGE OF THE ULCER. Allergies No Known Drug Allergies Allergy (Verified 05/30/18 07:54) Unknown No Known Allergies Allergy (Uncoded 05/30/18 07:54) Unknown Home Medications: Allopurinol 100 mg PO DAILY 04/14/18 Amiodarone HCl [Cordarone*] 200 mg PO DAILY 04/14/18 Ascorbic Acid [Vitamin C] 500 mg PO BID 04/14/18 Atorvastatin Calcium [Lipitor] 40 mg PO BEDTIME 04/14/18 Escitalopram Oxalate 10 mg PO DAILY 04/14/18 Furosemide [Lasix] 40 mg PO DAILY 04/14/18 Magnesium Oxide 400 mg PO DAILY 04/14/18 Pantoprazole [Protonix Tab*] 40 mg PO DAILY 04/14/18 Rivaroxaban [Xarelto*] 20 mg PO DAILY 04/14/18 Spironolactone [Aldactone*] 25 mg PO DAILY 04/14/18 Zinc Sulfate [Zinc Sulfate*] 220 mg PO DAILY 04/14/18 Carvedilol [Coreg] 3.125 mg PO BID 05/30/18 - Past Medical/Surgical History Has patient received pneumonia vaccine in the past: Yes Diabetic: No -: Prior elboW pain -: LYMPHEDEMA -: GOUT -: HYPERTENSION -: HIGH CHOLESTEROL -: OBESITY -: Afib -: VA -: sacrum wound with wound vac -: diverticulitis -: sebaceous cyst July 2012 -: two back sx 1969 & 1982 -: bladder sx 2006 -: triple bypass july 2017 -: colostomy -: sacrum wound debridement - Family History Father -: Heart disease, Diabetes Mother -: Cancer - Social History Smoking Status: Former smoker Alcohol use: No CD- Drugs: No Caffeine use: No Place of Residence: Home Review of Systems 10-point ROS is otherwise unremarkable General: As per HPI Integumentary: As per HPI Physical Examination - Vital Signs Temperature: 97.5 F Blood Pressure: 132/68 Pulse: 56 Respirations: 16 Pulse Ox (%): 97 - Physical Exam General: Alert, In no apparent distress, Obese (DEBILITATED FOR LONG DURATION. ) HEENT: Atraumatic, PERRLA, Mucous membr. moist/pink, EOMI, Sclerae nonicteric Neck: Supple, 2+ carotid pulse no bruit, No LAD, Without JVD or thyroid abnormality Respiratory: Clear to auscultation bilaterally, Normal air movement Cardiovascular: Regular rate/rhythm, Normal S1 S2 Gastrointestinal: Normal bowel sounds, No tenderness Musculoskeletal: No tenderness Integumentary: Pressure ulcer Neurological: Abnormal gait, Abnormal strength (LIMITED AMBULATION.) Lymphatics: No axilla or inguinal lymphadenopathy - Studies Laboratory Data (last 24 hrs) 05/29/18 20:40: PT 20.3 H, INR 1.71 05/29/18 20:40: WBC 11.5 H, Hgb 14.0, Hct 42.8, Plt Count 358 05/29/18 20:40: Sodium 136, Potassium 4.9, BUN 38 H, Creatinine 2.27 H, Glucose 117 H, Magnesium 2.4, Total Bilirubin 0.3, AST 20, ALT 27, Alkaline Phosphatase 94 Assessment and Plan - Problems (Diagnosis) (1) Atrial fibrillation Onset Date: 03/04/14 Current Visit: No Status: Chronic Plan: STABLE FOR NOW. HIS A FIB AND CHF ARE CONTROLLED. Qualifiers: (2) Stage 4 decubitus ulcer Onset Date: 03/02/18 Current Visit: No Status: Chronic Plan: DR. HERRERA IS CONSULTED. I SEE NO PUS FROM THE ULCER BUT R LATERAL EDGE HAS HEMATOMA AND TENDERNESS. I TOLD THAT I SEE NO NEW INFECTION HERE BUT DR. HERRERA WILL HAVE TO CONSULT AND COME SEE HIM. RESUME ABX UNTIL THEN. 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 AND STAYED THERE FOR MONTHS, HE DEVELOPED LARGE ULCER THAT IS NOT HEALING WELL. HE HAS AN AIR MATTRESS AND [employer] PUMP. Qualifiers: - Advance Directives Does patient have a Living Will: No Does patient have a Durable POA for Healthcare: No
--- NOTE | 2018-05-30 13:55 | EKG ---
Test Date: 2018-05-29 Test Time: 21:26:55 Senior Infrastructure Architect: SPENCER MEASUREMENT RESULTS: Intervals: Rate: 56 RI: QRSD: 82 QT: 438 QTc: 422 [place]: P: RI: QRS: 50 T: 11 INTERPRETIVE STATEMENTS: Atrial fibrillation with slow ventricular response Anteroseptal infarct, age undetermined Abnormal ECG Compared to ECG 04/15/2018 09:02:33 No significant changes Electronically Signed On 05-30-18 13:53:52 DONKEY ENGINE FIRER/FIREMAN by Vazquez Santos
[2018-05-30] MEDS: PIPER/TAZO/NS 3.375gm 3.375 GM/100 ML BAG IVPB SCH ×2 (14:32→21:36)
--- NOTE | 2018-05-30 14:40 | CON ---
Date of Consultation: 05/30/2018 Brief History Of Present Illness: The patient is a 73-year-old male with multiple medical conditions after having surgery for heart condition earlier about a year ago at [facility]. He deve loped a sacral wound, which Dr. Peterson has been managing [facility]. He was seen [place] ro[place] 10 days ago, but since then, he has noted that he has had some brown/bloody fluid drained from the lateral aspect of his wound and as such they bring him to the emergency room concerned about this. He has not had any other systemic complaints or other complaints with the exception of some p ain to the area as well. Past Medical History: Significant for lymphedema, gout, hypertension, high cholesterol, obesity, atr ial fibrillation, myocardial infarction, sacral wound, diverticulitis, sebaceous cysts, coronary kori ry disease, bladder cancer. Past Surgical History: Includes a sacral wound debridement, 2 back surgeries in 1969 and 1981, bladd er surgery in 2006 for bladder cancer, CABG in July 2017, colostomy creation, and sacral wound debri vita. Allergies: NO KNOWN DRUG ALLERGIES. Medications: At home include allopurinol, Cordarone, vitamin C, Lipitor, escitalopram, Lasix, Mag-Ox , Protonix, Xarelto, Aldactone, zinc sulfate, and Coreg. Family History: Father had heart disease. Mother had cancer. Social History: He has a former smoking history, heavy use in the past. Denies alcohol or recreatio nal drug use. Lives at home with his . Review of Systems: A 10-point review of systems other than HPI, denies. Physical Examination: Vital Signs: At the time of my examination, his BMI is 30.9. His blood pressure 132/68, pulse is 56 , respiratory rate 16, temperature 97.5. General: He is awake, alert, and oriented. Psychiatric: He is appropriate and answers questions appropriately. He is accompanied by his vasiliy ho also speaks on his behalf. HEENT: Normocephalic. His sclerae are anicteric. His mucus membranes are moist. His oropharynx is clear. Neck: Supple with no JVD. Respiratory: Clear to auscultation bilaterally. Cardiovascular: Regular rate and rhythm. Abdomen: Nontender. Ostomy present. Musculoskeletal: No edema at this time. Focused examination of his sacral area shows a large grade 3 sacral decubitus ulcer of approximately 8 cm x 7 cm x 3 cm depth. There is a small hematoma on the left lateral aspect of this, which has mostly drained with minimal tenderness in this area. There w as no obvious purulence to this area and no feculent odors associated. Laboratory Data: Reveals a white blood cell count of 8.4, hemoglobin 12.4, hematocrit 37.4, platelet count is 317. His neutrophils are normal at 68%. PT was 20.3, INR 1.71, sodium 138, potassium 4.3, chloride 105, carbon dioxide 23, BUN 37, creatinine 2.17, glucose is 118, calcium is 8.6. Assessment And Plan: This is a 73-year-old male who comes in with a stage III sacral decubitus ulcer wound. 1.Continue medical management per Dr. Omer. 2.Pressure reduction strategy with rolling of the patient q.2 hours with minimal to no sacral pressu re recommended. 3.I have recommended an air/sand bed to reduce pressure on this area. Additionally to program the b ed to rotated the patient automatically every 2 hours in addition to the nursing staff rotating the p atient every 2 hours. 4.With respect to wound care, I recommend Santyl soaked Kerlix in this area with cleansing daily wit h Hibiclens and serial examinations. Change dressings daily. Put bulky fluffy dressings in the area also to help with pressure reduction by building up the surrounding area noninvolved in the wound. 5.Continue nutritional monitoring to ensure the patient has adequate nutrition to meet nutritional g oals such that he can heal this wound. I have explained the risks, benefits, and alternatives of the above stated plan the patient agrees to proceed as indicated. Thanks for this interesting consult. ANNA/GERMÁN Voice ID: [id number] Report ID: [id number]
[2018-05-30] MEDS: COLLAGENASE 30 GM OINTMENT TOP SCH (14:45)
[2018-05-30] MEDS: RIVAROXABAN 10 MG TABLET PO SCH (16:21)
[2018-05-30] MEDS: ATORVASTATIN 40 MG TAB PO SCH (21:34)
[2018-05-30] MEDS ORDERED: VANCOMYCIN 1 GM in NA CHLORIDE 0.9% 250 ML IVPB SCH (23:00)
[2018-05-31] MEDS: VANCOMYCIN 1.75 GM in NA CHLORIDE 0.9% 500 ML IVPB SCH (00:02)
[2018-05-31] MEDS: ACETAMINOPHEN 500 MG TAB PO PRN ×3 (00:08→22:43)
[2018-05-31] MEDS: PIPER/TAZO/NS 3.375gm 3.375 GM/100 ML BAG IVPB SCH ×3 (05:37→21:33)
[2018-05-31] MEDS: PANTOPRAZOLE 40MG TABLET PO SCH (08:08)
[2018-05-31] MEDS: ZINC SULFATE 220 MG CAP PO SCH (08:08)
[2018-05-31] MEDS: ESCITALOPRAM 20 MG TAB PO SCH (08:08)
[2018-05-31] MEDS: AMIODARONE HCL 200 MG TAB PO SCH (08:08)
[2018-05-31] MEDS: ALLOPURINOL 100 MG TAB PO SCH (08:09)
[2018-05-31] MEDS: MAGNESIUM OXIDE 400 MG TAB PO SCH (08:09)
[2018-05-31] MEDS: ASCORBIC ACID 500 MG TABLET PO SCH ×2 (08:09→21:32)
[2018-05-31] MEDS: SPIRONOLACTONE 25 MG TABLET PO SCH (08:09)
[2018-05-31] MEDS: CARVEDILOL 3.125 MG TAB PO SCH ×2 (08:10→21:32)
[2018-05-31] MEDS: FUROSEMIDE 40 MG TABLET PO SCH (08:11)
[2018-05-31] MEDS: COLLAGENASE 30 GM OINTMENT TOP SCH (08:12)
[2018-05-31] MEDS ORDERED: LIDOCAINE JELLY 2%- 5 ML TUBE TOP ONE (09:41)
--- NOTE | 2018-05-31 09:51 | P.PN ---
Subjective Date of Service: 05/31/18 Chief Complaint: WOULD FOLLOW UP. Subjective: Improving (Patient continues to have some pain in sacrum) Physical Examination - Vital Signs Temperature: 97.1 F Blood Pressure: 110/52 Pulse: 55 Respirations: 20 Pulse Ox (%): 97 - Physical Exam General: Alert, In no apparent distress, Cooperative Integumentary: Other (wound appears stable, hematoma drained, and flat, no drainage, wound appears clean) - Studies Microbiology Data (last 24 hrs): 05/29/18 20:05 Wound - Coccyx Gram Stain - Final Assessment And Plan - Current Problems (Diagnosis) (1) Sacral decubitus ulcer, stage III Current Visit: Yes Status: Acute Plan: - continue current wound care and medical management - lidocaine topically to skin around sacrum, do not place in open wound
--- NOTE | 2018-05-31 11:14 | P.PN ---
Subjective Date of Service: 05/31/18 Chief Complaint: WOUND Subjective: No C/O voiced PATIENT WAS BROUGHT HOME HEALTH NURSE FOUND SEROSANGUINOUS DISCHARGE LATERAL TO THE WOUND. HE HAS SOME PAIN AND HE SITS ON THIS WOUND ALL DAY. Review of Systems 10-point ROS is otherwise unremarkable Physical Examination - Vital Signs Temperature: 97.1 F Blood Pressure: 110/52 Pulse: 55 Respirations: 20 Pulse Ox (%): 97 - Physical Exam General: Alert, Mild distress, Obese HEENT: Atraumatic, PERRLA, EOMI Neck: Supple, JVD not distended Respiratory: Clear to auscultation bilaterally, Normal air movement Cardiovascular: Regular rate/rhythm, Normal S1 S2 Gastrointestinal: Normal bowel sounds, No tenderness Musculoskeletal: No tenderness Integumentary: No rashes, Pressure ulcer (DEEP TO THE BONE, UNDERMINED , MACERATED R LATERAL EDGE WITH TENDERNESS. NO PUS SEEN. ) Neurological: Normal speech, Normal tone, Normal affect Lymphatics: No axilla or inguinal lymphadenopathy - Studies Microbiology Data (last 24 hrs): 05/29/18 20:05 Wound - Coccyx Gram Stain - Final Medications List Reviewed: Yes Assessment And Plan - Current Problems (Diagnosis) (1) Atrial fibrillation Onset Date: 03/04/14 Current Visit: No Status: Chronic Plan: STABLE FOR NOW. HIS A FIB AND CHF ARE CONTROLLED. Qualifiers: (2) Stage 4 decubitus ulcer Onset Date: 03/02/18 Current Visit: No Status: Chronic Plan: DR. HERRERA IS CONSULTED. I SEE NO PUS FROM THE ULCER BUT R LATERAL EDGE HAS HEMATOMA AND TENDERNESS. I TOLD THAT I SEE NO NEW INFECTION HERE BUT DR. HERRERA WILL HAVE TO CONSULT AND COME SEE HIM. RESUME ABX UNTIL THEN. 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 HE HAS AN AIR MATTRESS AND [employer] PUMP. DR KRUEGER HAS SEEN THE PATIENT. DR. HERRERA IS OUT OF TOWN. I SUSECT WE DON'T NEED IV ABX FOR THIS WOUND I SEE MACERATION AND NOT INFECTION. I WILL LET DR. HERRERA DECIDE. HE HAS BEEN THROUGH HOSPITALS, LTAC AND SNF FOR MONTHS LAST YEAR. HIS IS NOT ABLE TO TAKE CARE OF HIM. I SUSPECT HE WILL NEED SNF AGAIN. Qualifiers:
[2018-05-31] MEDS: RIVAROXABAN 10 MG TABLET PO SCH (16:08)
[2018-05-31] MEDS: JUVEN PACKET PO SCH (21:31)
[2018-05-31] MEDS: ATORVASTATIN 40 MG TAB PO SCH (21:32)
[2018-06-01] MEDS: PIPER/TAZO/NS 3.375gm 3.375 GM/100 ML BAG IVPB SCH ×3 (05:49→23:00)
[2018-06-01] MEDS: ACETAMINOPHEN 500 MG TAB PO PRN (05:49)
[2018-06-01] MEDS: CARVEDILOL 3.125 MG TAB PO SCH ×2 (09:00→22:26)
[2018-06-01] MEDS: JUVEN PACKET PO SCH ×2 (09:00→22:25)
[2018-06-01] MEDS: ESCITALOPRAM 20 MG TAB PO SCH (09:15)
[2018-06-01] MEDS: MAGNESIUM OXIDE 400 MG TAB PO SCH (09:16)
[2018-06-01] MEDS: FUROSEMIDE 40 MG TABLET PO SCH (09:17)
[2018-06-01] MEDS: ASCORBIC ACID 500 MG TABLET PO SCH ×2 (09:17→22:26)
[2018-06-01] MEDS: PANTOPRAZOLE 40MG TABLET PO SCH (09:18)
[2018-06-01] MEDS: ZINC SULFATE 220 MG CAP PO SCH (09:18)
[2018-06-01] MEDS: SPIRONOLACTONE 25 MG TABLET PO SCH (09:18)
[2018-06-01] MEDS: ALLOPURINOL 100 MG TAB PO SCH (09:18)
[2018-06-01] MEDS: COLLAGENASE 30 GM OINTMENT TOP SCH (09:23)
[2018-06-01] MEDS ORDERED: TRAMADOL HCL 50 MG TAB PO PRN (09:34)
[2018-06-01] MEDS: AMIODARONE HCL 200 MG TAB PO SCH (09:51)
[2018-06-01] MEDS: VANCOMYCIN 1.75 GM in NA CHLORIDE 0.9% 500 ML IVPB SCH (12:16)
[2018-06-01] MEDS: RIVAROXABAN 10 MG TABLET PO SCH (16:56)
--- NOTE | 2018-06-01 18:00 | P.PN ---
Subjective Date of Service: 06/01/18 Chief Complaint: WOUND Subjective: Improving PATIENT WAS BROUGHT HOME HEALTH NURSE FOUND SEROSANGUINOUS DISCHARGE LATERAL TO THE WOUND. HE HAS SOME PAIN AND HE SITS ON THIS WOUND ALL DAY. NO CHANGES FROM BEFORE. HE IS BEDBOUND MOST OF THE TIME SO ULCER IS NOT HEALING. Review of Systems 10-point ROS is otherwise unremarkable General: Malaise Physical Examination - Vital Signs Temperature: 97.4 F Blood Pressure: 143/66 Pulse: 51 Respirations: 22 Pulse Ox (%): 98 - Physical Exam General: Alert, Obese HEENT: Atraumatic, PERRLA, EOMI Neck: Supple, JVD not distended Respiratory: Clear to auscultation bilaterally, Normal air movement Cardiovascular: Regular rate/rhythm, Normal S1 S2 Gastrointestinal: Normal bowel sounds, No tenderness Musculoskeletal: No tenderness Neurological: Normal speech, Normal tone, Normal affect Lymphatics: No axilla or inguinal lymphadenopathy - Studies Microbiology Data (last 24 hrs): 05/29/18 20:05 Wound - Coccyx Gram Stain - Final Medications List Reviewed: Yes Assessment And Plan - Current Problems (Diagnosis) (1) Atrial fibrillation Onset Date: 03/04/14 Current Visit: No Status: Chronic Plan: STABLE FOR NOW. HIS A FIB AND CHF ARE CONTROLLED. Qualifiers: (2) Stage 4 decubitus ulcer Onset Date: 03/02/18 Current Visit: No Status: Chronic Plan: DR. HERRERA IS CONSULTED. I SEE NO PUS FROM THE ULCER BUT R LATERAL EDGE HAS HEMATOMA AND TENDERNESS. I TOLD THAT I SEE NO NEW INFECTION HERE BUT DR. HERRERA WILL HAVE TO CONSULT AND COME SEE HIM. RESUME ABX UNTIL THEN. 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 HE HAS AN AIR MATTRESS AND [employer] PUMP. DR KRUEGER HAS SEEN THE PATIENT. DR. HERRERA IS OUT OF TOWN. I SUSECT WE DON'T NEED IV ABX FOR THIS WOUND I SEE MACERATION AND NOT INFECTION. I WILL LET DR. HERRERA DECIDE. HE HAS BEEN THROUGH HOSPITALS, LTAC AND SNF FOR MONTHS LAST YEAR. HIS IS NOT ABLE TO TAKE CARE OF HIM. I SUSPECT HE WILL NEED SNF AGAIN. SNF OR LTAC. Qualifiers:
--- NOTE | 2018-06-01 18:52 | CON ---
Date of Consultation: 06/01/2018 Reason For Consult: Sacral decubitus ulcer on the sacrum with cellulitis. History Of Present Illness: This is a case of a 73-year-old patient, known by us since the patient i s [facility] with a chronic sacral ulcer improving on wound VAC treatment come s to us with cellulitis over the right side of the buttock region. The patient initially was seen by the surgeon Dr. Gamboa and the family asked me today to see this patient and the primary doctor for evaluation. I discussed the case with Dr. Gamboa, he did agree, so I proceeded to do the consult. Past Medical History: Hypertension, high cholesterol, atrial fibrillation, MIs, sacral decubitus ulc er. Past Surgical History: Includes multiple debridement from sacral decubitus ulcer, also a surgery for bladder cancer, and CABG. Allergies: NONE. Medications: Reviewed including Xarelto. Family History: Heart disease. Social History: He does not smoke. He does not drink alcohol. Review of Systems: Ten points, otherwise unremarkable. Physical Examination: General: The patient is awake and alert. HEENT: Pupils anicteric. Neck: Supple. No JVD. Abdomen: Soft and depressible. Benign. Back: The patient has a grade III sacral decubitus ulcer. It is about 7 x 8 cm. There is a good co loration tissue present. There is a blister hematoma on the lateral side of this wound right now. N o active bleeding. No fluctuance is present. Mild erythema. Good coloration tissue. Diagnostic Data: Blood work shows WBC count of 8.4 with hemoglobin of 12.4. INR is 1.71. Potassium is 4.3. Assessment: It is a 73-year-old patient with history of the sacral decubitus ulcer. Looks better to day. He was admitted 2 days ago for IV antibiotics. From surgical standpoint, he can be discharged and follow up in the [facility] next [facility]. We are going to hold the wound VAC treatment. We going to continue with the Santyl, off-loading, nutrition, was fully explained to the patient akshat AGUILERA/GERMÁN Voice ID: [id number] Report ID: [id number]
[2018-06-01] MEDS: ATORVASTATIN 40 MG TAB PO SCH (22:27)
[2018-06-02] MEDS: PIPER/TAZO/NS 3.375gm 3.375 GM/100 ML BAG IVPB SCH (06:07)
[2018-06-02] MEDS: COLLAGENASE 30 GM OINTMENT TOP SCH (09:00)
[2018-06-02] MEDS: CARVEDILOL 3.125 MG TAB PO SCH (09:00)
[2018-06-02] MEDS: JUVEN PACKET PO SCH (09:00)
[2018-06-02] MEDS: SPIRONOLACTONE 25 MG TABLET PO SCH (09:08)
[2018-06-02] MEDS: FUROSEMIDE 40 MG TABLET PO SCH (09:09)
[2018-06-02] MEDS: MAGNESIUM OXIDE 400 MG TAB PO SCH (09:09)
[2018-06-02] MEDS: ASCORBIC ACID 500 MG TABLET PO SCH (09:09)
[2018-06-02] MEDS: PANTOPRAZOLE 40MG TABLET PO SCH (09:09)
[2018-06-02] MEDS: ALLOPURINOL 100 MG TAB PO SCH (09:09)
[2018-06-02] MEDS: ZINC SULFATE 220 MG CAP PO SCH (09:09)
[2018-06-02] MEDS: ESCITALOPRAM 20 MG TAB PO SCH (09:09)
[2018-06-02] MEDS: AMIODARONE HCL 200 MG TAB PO SCH (09:10)
[2018-06-02 09:31] VITALS: O2SAT 97
[2018-06-02] MEDS ORDERED: Meropenem 500 MG in NA CHLORIDE 0.9% 100 ML IV SCH (13:00)
[2018-06-02] MEDS ORDERED: Meropenem 500 MG VIAL IV SCH (17:00)
--- NOTE | 2018-06-02 17:22 | CON ---
INFECTIOUS DISEASES AND WOUND CARE CONSULT History Of Present Illness: This is a 73-year-old male; I was consulted for evaluation of his sacroc occyx wound, which is stage IV. The patient is growing Pseudomonas, has multiple medical problems, a nd currently being treated with IV antibiotics including Zosyn and vancomycin. Patient denies any he adache, nausea, vomiting, chest pain, abdominal pain, constipation, diarrhea. is by the bedside . Past Medical History: Gout, hypertension, high cholesterol, obesity, atrial fibrillation, myocardial infarction, status post stent placement, triple bypass surgery, diverticulitis, sebaceous cyst opera devon in July 2012, back surgery in 1969 and 1981, bladder surgery in 2006, triple bypass in July, colostomy, and sacral wound debridement. [facility]. Social History: Tobacco, positive. Alcohol, negative. Family History: Noncontributory. Medications: Vancomycin and Zosyn. See MARs for other medications. Allergies: NO KNOWN DRUG ALLERGIES. Review of Systems: A 10-point review was performed. Physical Examination: General: This is a 73-year-old male, lying in bed, not in any acute cardiopulmonary distress. Vital Signs: Temperature 98.4, pulse 56, respirations 16, blood pressure 124/70. HEENT: Unremarkable. Neck: Supple. Lungs: Basal crackles. Heart: S1, S2. Regular. Abdomen: Soft, nontender. Bowel sounds present. Extremities: No edema. Hyperpigmentation noted in both the lower extremities. Sacral and coccyx ar ea with a large wound with undermining granulation tissue of 80% and 20% slough. Laboratory Data: Shows WBC 8.4, hemoglobin 12.4, platelets are 317. Initial WBC was 11.7, ESR is 80 . Chemistry shows sodium 138, potassium 4.3, chloride 105, bicarb 23, BUN 37, creatinine 2.17, gluco se is 118. Micro data is growing Pseudomonas aeruginosa from the sacrococcyx wound resistant to Zosy n, cefepime, ceftazidime, aztreonam. Assessment And Plan: This is a 73-year-old male coming in with a sacrococcyx stage IV wound, Pseudom onas aeruginosa infection. We will recommend to switch the patient to meropenem 500 mg IV q.8 hours as Pseudomonas is resistant to Zosyn. Consider long-term acute care for further management of this w ound and infection. We will follow patient closely. Thank you, Dr. Omer, for consult and Dr. Peterson for consult. DMITRIY/GERMÁN Voice ID: [id number] Report ID: [id number]
[2018-06-02] MEDS: RIVAROXABAN 10 MG TABLET PO SCH (17:28)
[2018-06-02 18:02] VITALS: BP 136/69; TEMP 98
--- NOTE | 2018-06-02 22:02 | P.DS ---
Admission Date: 05/30/18 Discharge Date: 06/02/18 Disposition: ROUTINE DISCHARGE Reason for Admission: WOUND - Problems (1) Atrial fibrillation Onset Date: 03/04/14 Status: Chronic Qualifiers: (2) Stage 4 decubitus ulcer Onset Date: 03/02/18 Status: Chronic Qualifiers: Brief History of Present Illness: MR. ELAINE HAS DEEP SACRAL WOUND THAT IS TAKEN CARE BY DR. HERRERA [facility]. HE SAW DR. HERRERA ABOUT 10 DAYS AGO. PER HE WAS STABLE BUT A FEW DAYS LATER GOT SOME BROWN LIQUID FROM AROUND THE WOUND R LATERAL TO IT. I HAD ASKED NURSE TO CONTACT DR. HERRERA I AM NOT HIS WOUND DOCTOR. HE COMES TO ER AND WAS SENT HOME ON ABX. LATER NOW COMES TO ER AGAIN SOME MORE BLOODY DISCHARGE CAME OUT FROM THE RIGHT LATERAL EDGE OF THE ULCER. MR ELAINE WAS SENT TO ER BY NURSE WHO SAW SOME SEROSANGUINOUS DISCHARGE. I NEVER SUSPECTED INFECTION FROM DAY ONE THERE WAS NO PUS, NO FOUL SMELL FROM THIS CHRONIC ULCER. DR HERRERA AGREED AND SO DID DR PUGH AFTER I CALLED HIM TO LET HIM KNOW ABOUT THE WHOLE HISTORY. WE DECIDED NO ABX FOR NOW AT HOME. HE WILL GO TO DR. HERRERA WEEKLY AND HE WILL DECIDE IF THERE IS CHANGE IN CURRENT PLAN. HE IS STABLE AND WALKED ALL AROUND NURSES STATION WITH WALKER. Vital Signs/Physical Exam: Temp Pulse Resp BP Pulse Ox 98.0 F 58 16 136/69 97 06/02/18 16:00 06/02/18 16:00 06/02/18 16:00 06/02/18 16:00 06/02/18 16:00 Laboratory Data at Discharge: WBC 8.4 K/uL (4.3-10.9) D 05/30/18 05:15 Hgb 12.4 g/dL (13.6-17.9) L 05/30/18 05:15 Hct 37.4 % (39.6-49.0) L 05/30/18 05:15 Plt Count 317 K/uL (152-406) 05/30/18 05:15 PT 20.3 SECONDS (9.5-12.5) H 05/29/18 20:40 INR 1.71 05/29/18 20:40 Sodium 138 mmol/L (136-145) 05/30/18 05:15 Potassium 4.3 mmol/L (3.5-5.1) 05/30/18 05:15 BUN 37 mg/dL (7-18) H 05/30/18 05:15 Creatinine 2.17 mg/dL (0.55-1.3) H 05/30/18 05:15 Glucose 118 mg/dL (74-106) H 05/30/18 05:15 Magnesium 2.4 mg/dL (1.8-2.4) 05/29/18 20:40 Total Bilirubin 0.3 mg/dL (0.2-1.0) 05/29/18 20:40 AST 20 U/L (15-37) 05/29/18 20:40 ALT 27 U/L (12-78) 05/29/18 20:40 Alkaline Phosphatase 94 U/L (45-117) 05/29/18 20:40 Home Medications: Allopurinol 100 mg PO DAILY 04/14/18 Amiodarone HCl [Cordarone*] 200 mg PO DAILY 04/14/18 Ascorbic Acid [Vitamin C*] 500 mg PO BID 04/14/18 Atorvastatin Calcium [Lipitor] 40 mg PO BEDTIME 04/14/18 Escitalopram Oxalate 10 mg PO DAILY 04/14/18 Furosemide [Lasix*] 40 mg PO DAILY 04/14/18 Magnesium Oxide 400 mg PO DAILY 04/14/18 Pantoprazole [Protonix Tab*] 40 mg PO DAILY 04/14/18 Rivaroxaban [Xarelto*] 20 mg PO DAILY 04/14/18 Spironolactone [Aldactone*] 25 mg PO DAILY 04/14/18 Zinc Sulfate [Zinc Sulfate*] 220 mg PO DAILY 04/14/18 Carvedilol [Coreg*] 3.125 mg PO BID 05/30/18
== END 2018-06-02 18:20 | disposition home health service (06) | DRG 594 ==
LOC: ER 17:31 → 4TH 05-30 00:28
PROVIDERS: ADMIT Internal Medicine; ATTEND Internal Medicine
DX: L89.154 Pressure ulcer of sacral region, stage 4 (principal); I48.2 Chronic atrial fibrillation; M10.9 Gout, unspecified; I10 Essential (primary) hypertension; E78.00 Pure hypercholesterolemia, unspecified; E66.9 Obesity, unspecified; Z87.891 Personal history of nicotine dependence
CPT/HCPCS: 36415; 80048; 80076; 80202; 81003; 81015; 83605; 83735; 84145; 85025; 85610; 85652; 86140; 87070; 87077; 87186; 87205; 93005; 96365; 96375; 97116; 97163; 97530; 99285; J2543; J3010; J3370; J3590

== ENCOUNTER 2020-02-18 16:21 | Observation (INO) | payer OTHER ==
--- OUTSIDE RECORDS SUMMARY | 2020-02-18 16:22 | XMS REPORT | Continuity of Care Document ---
:1945 Author Organization [facility] Care Team Providers Name Role Phone [facility] Unavailable Un available Problems Problem Status Onset Classification Date Comments Sourc e Date Reported M54.2 - Active [facility] Medications No Data Provided for This Section Allergies, Adverse Reactions, Alerts No Known Medication Allergies Immunizations No Data Provided for This Section Results No Data Provided for This Section Pathology Reports No Data Provided for This Section Diagnostic Reports Report Value Date Source Spine Thoracic wo MRI of Thoracic Spine 03/27/2016 [facility] MRI History: back pain Joint Technique: The study was per formed on a high-field magnet without intravenous contrast. Findings: The thoracic discs are desic cated throughout. There is moderate kyphotic deformity of the midthoracic spine centered at approximately T8. There is evidence of mild po sterior spondylosis at T7-T8 and T8-T9 with right- sided annular tears. No focal disc protrusion. Mild effacement of the ventral aspect of the thoracic cord due to the kyphotic deformity without compression. There is moderate left-sided spondylosis at T11-T12 abutting the conus without compression. There is no central or foraminal narrowing. Bone marrow signal intensity within the thoracic vertebral body is normal. Thoracic cord is normal in signal intensity and caliber. Impression: Multilevel disc desiccation throughout the thoracic spine with moderate kyphotic deformity. Mild posterior spondylosis at T7-T8, T8-T9 with right paracentral annular tears without focal protrusion. Mode rate left-sided spondylosis at T11-T12 a butting the conus without compression. No evidence of acute fracture. Dictation Code: 100 Consultation Notes No Data Provided for This Section Discharge Summaries No Data Provided for This Section History and Physicals No Data Provided for This Section Vital Signs No Data Provided for This Section Encounters Location Location Encounter Encounter Reason Attending ADM [place] Stat us Source Details Type Number For Provider Date Date Visit [facility] Outpt Diag [id number] Scooter 03/27 03/28 [facility] [place] Procedures No Data Provided for This Section Assessment and Plan No Data Provided for This Section Plan of Care No Data Provided for This Section Social History Social History Date Source No data available for this 03/28/2016 [facility] section Family History No Data Provided for This Section Advance Directives No Data Provided for This Section Functional Status No Data Provided for This Section
--- OUTSIDE RECORDS SUMMARY | 2020-02-18 16:22 | XMS REPORT | Clinical Summary ---
:1945 Author Organization [facility] Address [address] [place] [address] Care Team Providers Name Role Phone Alicia Primary Care Provider Joe Unavailable Allergies No Known Allergies Medications Medication Sig Dispensed Refills Start Date End Date Status colchicine (COLCRYS) Take 0.6 mg by 0 11/30/2015 Active 0.6 mg tablet mouth. rivaroxaban Take 20 mg by mouth. 0 11/20/2015 Active (XARELTO) 20 mg Tab tablet formoterol Take 2 mLs (20 mcg 0 10/01/2017 Active (PERFOROMIST) 20 total) by mcg/2 mL nebulizer nebulization 2 (two) solution times daily. pantoprazole Take 1 tablet (40 mg 0 10/02/2017 Active (PROTONIX) 40 MG total) by mouth tablet daily. Active Problems Problem Noted Date Sacral wound 11/30/2017 Decubitus ulcer 11/28/2017 Acute on chronic diastolic CHF (congestive heart failu re), NYHA class 4 09/04/2017 Moderate protein-calorie malnutrition 09/03/2017 Acute renal failure with tubular necrosis 09/03/2017 Acute pulmonary edema 09/03/2017 Severe sepsis 09/02/2017 Sacral decubitus ulcer, stage IV 09/01/2017 Overview: Added automatically from request for gianluca billy [id number] Cardioembolic stroke 08/15/2017 Superficial postoperative wound infection 08/13/2017 CKD (chronic kidney disease) 08/13/2017 Type 2 diabetes mellitus 08/13/2017 Physical deconditioning 08/13/2017 Anemia 08/13/2017 Hyponatremia 08/13/2017 Urinary retention 08/13/2017 Obstructive sleep apnea 07/25/2017 Overview: Untreated Acute pulmonary edema 07/25/2017 CAD (coronary artery disease) 07/24/2017 Acute pulmonary insufficiency 07/24/2017 Overview: After cardiac surgery secondary to ERICKSON Angina of effort Hyperlipidemia Atrial fibrillation with RVR Coronary artery disease Obesity Family History Medical History Relation Name Comments Diabetes Brother Heart disease Father Stroke Father Cancer Mother Diabetes Sister Relation Name Status Comments Brother Father Mother Sister Social History Tobacco Use Types Packs/Day Years Used Date Former Smoker Smokeless Tobacco: Never Used Comments: quit in 1981 Alcohol Use Drinks/Week oz/Week Comments Yes Sex Assigned at Date Recorded Not on file Job Start Date Occupation Industry Not on file Not on file Not on file Travel History Travel Start Travel End No recent travel history available. 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 Plastic Zipper Device Shelf Model / Identifier Expiration Serial / Date Lot Sternal Zipfix Ndl Strl [id number] - [id number] Cardiovascula r N/A: SYNTHES:SYNTHES 02/22/2022 [id number] / Implanted: Qty: 3 on 07/24/2017 by Wily Lincoln MD [facility] / [id number] Results Not on fileafter 02/17/2019 Insurance Payer Benefit Plan / Subscriber ID Type Phone Address Group [employer] - MEDICARE A[employer]NA MEDICARE HMO xxxxxxxx [address] [place] [address] Advance Directives For more information, please contact:[address] [phone] Code Status Date Activated Date Inactivated Comments Full Code 09/04/2017 7:14 AM 10/03/2017 8:23 PM This code status was determined by: Patient Full Code 08/15/2017 4:46 PM 09/02/2017 9:00 AM This code status was determined by: Patient Full Code 07/31/2017 6:07 PM 08/15/2017 4:46 PM This code status was determined by: Patient Full Code 07/24/2017 2:30 PM 07/31/2017 6:07 PM This code status was determined by: Patient Full Code 07/24/2017 5:36 AM 07/24/2017 2:30 PM This code status was determined by: Patient
--- OUTSIDE RECORDS SUMMARY | 2020-02-18 16:22 | XMS REPORT | Clinical Summary ---
:1945 Author Organization [employer] [facility] [employer] Address [address] [place] [address] Care Team Providers Name Role Phone MD Negra Primary Care Provider Allergies No Known Active Allergies Medications Medication Sig Dispensed Refills Start Date End Date Status allopurinol (ZYLOPRIM) 300 mg daily. 5 09/28/2015 Active 300 MG tablet colchicine 0.6 mg Take 0.6 mg by 2 11/30/2015 Active tablet mouth daily. furosemide (LASIX) 20 Take 20 mg by 1 10/08/2015 Active MG tablet mouth daily. metFORMIN (GLUCOPHAGE) Take 500 mg by 1 09/18/2015 Active 500 MG tablet mouth 2 (two) times a day. metoprolol succinate XL Take 10 mg by 0 12/08/2015 Active (TOPROL-XL) 100 MG 24 mouth daily. hr tablet XARELTO tablet Take 20 mg by 3 11/20/2015 Active mouth daily. simvastatin (ZOCOR) 40 Take 40 mg by 0 12/15/2015 Active MG tablet mouth daily. Active Problems Problem Noted Date ARF (acute renal failure) 12/19/2015 Chest pain 12/18/2015 Vascular disorder Hypertension Diabetes mellitus A-fib Social History Tobacco Use Types Packs/Day Years Used Date Never Assessed Alcohol Use Drinks/Week oz/Week Comments Not Asked Sex Assigned at Date Recorded Not on file Last Filed Vital Signs Not on file Plan of Treatment Health Maintenance Due Date Last Done Comments COLONOSCOPY SCREENING 1993 SHINGLES VACCINES (#1) 1993 65+ PNEUMOCOCCAL VACCINE (1 of 1 - PPSV23) 2008 INFLUENZA VACCINE 12/25/2019 Results Not on fileafter 02/17/2019 (Work) Advance Directives For more information, please contact: [phone] Type Date Recorded 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
--- OUTSIDE RECORDS SUMMARY | 2020-02-18 16:31 | XMS REPORT | Continuity of Care Document ---
:1945 Author Organization [facility] t Address [address] [place] [address] Dr. Singh. [address] [place] [address] Care Team Providers Name Role Phone NONSTAFF Primary Care Physician Unavailable Walter VIVAR, [place] Attending Clinician Marilyn DE LA CRUZ Attending Clinician Unavailable LUCAS NAVARRO Attending Clinician Unavailable ROBERT BROTHERS Attending Clinician Unavailable ALEXANDRIA TORO Attending Clinician Unavailable Lamine Attending Clinician NELLIE FONG Admitting Clinician Unavailable MILTON Admitting Clinician Unavailable ROBERT BROTHERS Admitting Clinician Unavailable ALEXANDRIA TORO Admitting Clinician Unavailable Payers Payer Name Policy Type Policy Effective Date Expiration Date Sour ce Number [employer] Medicare [id number] [facility] Replacement [facility] Problems Condition Condition Condition Status Onset Resolution Last Treating Co mments Source Name Details Category Date Date Treatment Clinician Date Sacral Sacral Disease Active [facility] wound wound 11-30 [facility] - 00:[facility]: Medical 00 [place] Decubitus Decubitus Disease Active [facility] ulcer ulcer 11-28 [facility] - 00:[facility]: Medical 00 Center Acute on Acute on Disease Active [facility] chronic chronic 4-12 [facility] - diastolic diastolic 00:00: [facility] sofiya CHF CHF 00 Center (congestiv (congestiv e heart e heart failure), failure), NYHA class NYHA class 4 4 Moderate Moderate Disease Active [facility] protein-ca protein-ca 4-11 Henny kes - paulino askewie 00:00: Medical malnutriti malnutriti 00 Ce nter on on Acute Acute Disease Active [facility] renal renal 4-11 [facility] - failure failure 00:00: Medical with with 00 Center tubular tubular necrosis necrosis Acute Acute Disease Active [facility] pulmonary pulmonary 4-11 [facility] - edema edema 00:00: Medical 00 [place] Severe Severe Disease Active [facility] sepsis sepsis 4 [facility] - 00:[facility]: Medical 00 Center Sacral Sacral Disease Active Overview: [facility] decubitus decubitus 4- Added [facility] - ulcer, ulcer, 00:00: automatic Medical stage IV stage IV 00 ally from [facility] request for surgery [id number] Cardioembo Cardioembo Disease Active [facility] lic stroke lic stroke 08-15 Henny kes - 00:00: Medical 00 Center Superficia Superficia Disease Active [facility] l l 08-13 [facility] - postoperat postoperat 00:00: Me dical ellen wound ellen wound 00 Cent er infection infection CKD CKD Disease Active [facility] (chronic (chronic 08-13 [facility] - kidney kidney 00:00: Medical disease) disease) 00 Center 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 08-13 [facility] - mellitus mellitus 00:00: Medica l 00 Center Physical Physical Disease Active [facility] deconditio deconditio 08-13 Henny kes - [place] 00:00: Medical 00 Center Anemia Anemia Disease Active [facility] 08-13 [facility] - 00:00: Medical 00 [place] Hyponatrem Hyponatrem Disease Active [facility] ia ia 08-13 [facility] - 00:00: Medical 00 Center Urinary Urinary Disease Active [facility] retention retention - Luke s - 00:00: Medical 00 Center Obstructiv Obstructiv Disease Active Overview : [facility] e sleep e sleep 3- Untreated [facility] - apnea apnea 00:00: Medical 00 Center Acute Acute Disease Active [facility] pulmonary pulmonary 3- [facility] - edema edema 00:00: Medical 00 Center Acute Acute Disease Active 2018-0 Overview: [facility] pulmonary pulmonary 3- After [place] s - insufficie insufficie 00:00: cardiac M edical ncy ncy 00 surgery Center secondary to ERICKSON M54.2 - Diagnosis Active 2015-052016-03-27 Me moria CERVICALGI 0 13:39:00 l A M54.2 - 00:01: [place] CERVICALGI 00 A Active 03/25/2016 [facility] OP[facility] ARF (acute ARF (acute Disease Active [facility] renal renal 12-18 Methodi failure) failure) 00:00: st 00 Chest pain Chest pain Disease Active [place] 12-17 Methodi 00:00: st 00 Vascular Vascular Disease Active [place] on disorder disorder Method i [facility] Hypertens[facility] Diabetes Diabetes Disease Active [place] on mellitus mellitus Method i st A-fib A-fib Disease Active [place] Method st Angina of Angina of Disease Active [facility] effort effort [facility] Hyperlipid Hyperlipid Disease Active [facility] emia emia [facility] Atrial Atrial Disease Active [facility] fibrillati fibrillati [facility] on with on with Medical RVR RVR Center Coronary Coronary Disease Active [facility] S t artery artery [facility] - disease [facility] Obesity Obesity Disease Active [facility] Allergies, Adverse Reactions, Alerts This patient has no known allergies or adverse reactions. Family History Family Member Diagnosis Comments Start Date Stop Date Source Natural brother Diabetes [facility] Natural father Heart disease [facility] Natural father Stroke [facility] Natural mother Cancer [facility] Natural sister Diabetes [facility] Social History Social Habit Start Date Stop Date Quantity Comments Source Sex Assigned At [facility] Tobacco Comment 2017-07-22 2017-07-22 quit in 1982 [facility] - 00:00:00 00:00:00 Medical Center Social History 2016-03-28 2016-03-28 [facility] tianna 04:59:00 04:59:00 Alcohol intake 2015-12-18 2015-12-18 [facility] thodist 00:00:00 00:00:00 Smoking Status Start Date Stop Date Source Former smoker 2018-01-02 00:00:00 2018-01-02 00:00:[address] [facility] [facility] Medications Ordered Filled Start Stop Current Ordering Indication Dosage Frequency Signature Comments Components Source Medication Medication Date Date Medication? Clinician (SIG) Name Name pantoprazol Yes 40mg QD Take [address] e 5-10 tablet (40 [facility] - (PROTONIX) 00:00: mg total) Me dical 40 MG 00 by mouth Center tablet daily. formoterol Yes 20ug Q.5D Take [address] (PERFOROMIS 5-09 (20 mcg [facility] - T) 20 mcg/2 00:00: total) by M roical mL 00 nebulizati [place] nebulizer on 2 (two) solution times daily. simvastatin Yes 40mg QD Take 40 mg [place] (ZOCOR) 40 7-22 by mouth Metho di MG tablet 00:00: daily. st 00 metoprolol Yes 10mg QD Take 10 mg [place] succinate 7-15 by mouth Method i XL 00:00: daily. st (TOPROL-XL) 00 100 MG 24 hr tablet colchicine Yes .6mg Take 0.6 [place] st[place] 0.6 mg 7-07 mg by Methodi tablet 00:00: mouth st 00 daily. colchicine Yes .6mg Take 0.[address] (COLCRYS) 7-07 mg by [facility] - 0.6 mg 00:00: mouth. Medical tablet 00 [place] XARELTO Yes 20mg QD Take 20 mg [place] tablet 6-27 by mouth Methodi 00:00: daily. st 00 rivaroxaban Yes 20mg Take [address] (XARELTO) 6-27 by mouth. [facility] - 20 mg Tab 00:00: Medical tablet 00 [place] furosemide Yes 20mg Take 20 mg [place] (LASIX) 20 5-15 by mouth Metho di MG tablet 00:00: daily. st 00 allopurinol Yes 300mg 300 mg [place] ston (ZYLOPRIM) 5-05 daily. Methodi 300 MG 00:00: st tablet 00 metFORMIN Yes 500mg Q.5D Take 500 [place] [facility] (GLUCOPHAGE 4-25 mg by Methodi ) 500 MG 00:00: mouth 2 st tablet 00 (two) times a day. Procedures This patient has no known procedures. Plan of Care Planned Activity Planned Date Details Comments Source Future Scheduled 2020-01-25 INFLUENZA VACCINE (#1) [facility] Test 00:00:00 [code = INFLUENZA Medical Ce nter VACCINE (#1)] Future Scheduled 2019-12-25 INFLUENZA VACCINE [place] [facility] Test 00:00:00 [code = INFLUENZA VACCINE] Future Scheduled 2018-01-[address] [facility] kes - Test 00:00:00 measurement Medical Center (procedure) [code = 69338476] Future Scheduled 2017-05-[address] [facility] - Test 00:00:00 WELLNESS (YEAR 2 or Medical Center FIRST YEAR if no IPPE) [code = MEDICARE ANNUAL WELLNESS (YEAR 2 or FIRST YEAR if no IPPE)] Future Scheduled 2008 65+ PNEUMOCOCCAL [facility] Test 00:00:00 VACCINE (1 of 1 - PPSV23) [code = 65+ PNEUMOCOCCAL VACCINE (1 of 1 - PPSV23)] Future Scheduled 2008 PNEUMOCOCCAL [address] - Test 00:00:00 LOW/MEDIUM RISK (1 of Medica l Center 2 - PCV13) [code = PNEUMOCOCCAL 65+ LOW/MEDIUM RISK (1 of 2 - PCV13)] Future Scheduled 1993 COLONOSCOPY SCREENING [place] [facility] Test 00:00:00 [code = COLONOSCOPY SCREENING] Future Scheduled 1993 SHINGLES VACCINES (#1) [place] [facility] Test 00:00:00 [code = SHINGLES VACCINES (#1)] Future Scheduled 1953 DIABETIC EYE EXAM [facility] - Test 00:00:00 [code = DIABETIC EYE Medical Center EXAM] Future Scheduled [address] [facility] es - Test 00:00:00 examination Medical Center (regime/therapy) [code = 804850618] Future Scheduled 1953 Urine screening for [facility] - Test 00:00:00 protein (procedure) Medical Center [code = 889879851] Encounters Start End Encounter Admission Attending Care Care Encounter Source Date/Time Date/Time Type Type Clinicians Facility Department ID 2019-06-14 2019-06-25 Discharged [facility] [id number] 13:50:00 23:59:00 Recurring 11 [facility] 2018-12-29 2018-12-29 Office Walter [facility] [id number] 15:40:25 16:36:13 Visit Edmundo Montgomery [id number] Christine [id number] Willa [id number] nal 092 [facility] 2016-03-27 2016-03-27 Outpatient Lamine [id number] 13:24:00 23:59:00 Scooter [id number]. [id number] 00 [id number] 5.67 Results Test Description Test Time Test Comments Results Result Comments Source POCT-GLUCOSE METER 2017-12-04 12:19:00 Test Item Value Reference Range Interpretation Comme nts POC-GLUCOSE METER (BEAKER) (test 128 mg/dL 70-[address] [facility] [address] code = 1538) [facility] 7703 0 POCT-GLUCOSE [id number] 08:45:00 Test Item Value Reference Range Interpretation Comments POC-GLUCOSE METER 116 mg/dL 70-[address] 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 Other organisms and resistance markers not contained in this PCR panel cannot be excluded and follow-up of traditional culture results is required. This sample was tested at the [facility] Clinical Microbiology Laboratory using the Black Raven and Stag Blood Culture ID Panel.This test is FDA cleared for in vitro diagnostic use and has been verified and approved by the [facility] for clinical use. Reference Range: Not DetectedPOCT-GLUCOSE [id number] 20:41:00 Test Item Value Reference Range Interpretation Comments POC-GLUCOSE METER 153 mg/dL 70-110 H TESTED AT [place] [address] ([facility]) (test code = MARIA ESTHER Cash [place] 1538) [id number] POCT-GLUCOSE [id number] 18:53:00 Test Item Value Reference Range Interpretation Comments POC-GLUCOSE METER 138 mg/dL 70-110 H TESTED AT [place] [address] ([facility]) (test code = MARIA ESTHER [place] 1538) 9[address] POCT-GLUCOSE [id number] 12:27:00 Test Item Value Reference Range Interpretation Comments POC-GLUCOSE METER 147 mg/dL 70-110 H TESTED AT [place] [address] ([facility]) (test code = MARIA ESTHER [place] 1538) [id number] POCT-GLUCOSE [id number] 08:21:00 Test Item Value Reference Range Interpretation Comments POC-GLUCOSE METER 106 mg/dL 70-110 TESTED AT [place] [address] ([facility]) (test code = MARIA ESTHER [place] 1538) [id number] POCT-GLUCOSE [id number] 22:43:00 Test Item Value Reference Range Interpretation Comments POC-GLUCOSE METER 160 mg/dL 70-110 H TESTED AT [place] [address] ([facility]) (test code = MARIA ESTHER Cash [place] 1538) [address]373 POCT-GLUCOSE [id number] 17:22:00 Test Item Value Reference Range Interpretation Comments POC-GLUCOSE METER 139 mg/dL 70-110 H TESTED AT [place] [address] ([facility]) (test code = MARIA ESTHER Cash [place] 1538) [id number] POCT-GLUCOSE [id number] 16:09:00 Test Item Value Reference Range Interpretation Comments POC-GLUCOSE METER 123 mg/dL 70-110 H TESTED AT [place] [address] ([facility]) (test code = MARIA ESTHER Cash [place] 1538) [id number] POCT-GLUCOSE [id number] 21:33:00 Test Item Value Reference Range Interpretation Comments POC-GLUCOSE METER 144 mg/dL 70-110 H TESTED AT [place] [address] ([facility]) (test code = MARIA ESTHER [place] 1538) [id number] POCT-GLUCOSE [id number] 17:38:00 Test Item Value Reference Range Interpretation Comments POC-GLUCOSE METER 126 mg/dL 70-110 H TESTED AT [place] [address] ([facility]) (test code = MARIA ESTHER Cash [facility] 1538) [id number] POCT-GLUCOSE [id number] 11:59:00 Test Item Value Reference Range Interpretation Comments POC-GLUCOSE METER 112 mg/dL 70-[address] [facility] 67 ([facility]) (test code = MARIA ESTHER Cash [facility] 1538) 70798 WOUND CULTURE + GRAM [id number] 08:12:00 Test Item Value Reference Interpretation Comments Range CULTURE ([facility]) STAPHYLOCOCCUS A 2+ Staphy lococcus (test code = 1095) AUREUS aureus Clindamycin (test S code = 10) Erythromycin (test S code = 4) Linezolid (test code S = 40) Nitrofurantoin (test S code = 23) Oxacillin (test code S = 14) Rifampin (test code = S 43) Tetracycline (test S code = 2) Trimethoprim + S Sulfamethoxazole (test code = 47) Vancomycin (test code S = 13) GRAM STAIN RESULT <1+ WBCs ([facility]) (test code = 1123) GRAM STAIN RESULT <1+ gram positive ([facility]) (test code = cocci in chains 289668) and pairs 3+ Skin floraMISCELLANEOUS LAB [id number] 07:32:00 Test Item Value Reference Range Interpretation Comments SCAN RESULT (test code = 1512539) Result comments: Coagulase Negative Staphylococcus Species (CoNS) [...] MEDICAL CENTER Clinical Microbiology Laboratory using the Black Raven and Stag Blood Culture ID Panel. This test is FDA cleared for in vitro diagnostic use and has been verified and approved by the [facility] Clinical Microbiology laboratory for clinical use. Reference Range: Not DetectedPOCT-GLUCOSE [id number] 07:31:00 Test Item Value Reference Range Interpretation Comments POC-GLUCOSE METER 107 mg/dL 70-110 TESTED AT [place] [address] ([facility]) (test code = MARIA ESTHER Cash [facility] 1538) [id number] POCT-GLUCOSE [id number] 23:08:00 Test Item Value Reference Range Interpretation Comments POC-GLUCOSE METER 106 mg/dL 70-110 TESTED AT [place] [address] ([facility]) (test code = MARIA ESTHER [place] 1538) [address]181 POCT-GLUCOSE [id number] 16:57:00 Test Item Value Reference Range Interpretation Comments POC-GLUCOSE METER 140 mg/dL 70-110 H TESTED AT [place] [address] ([facility]) (test code = MARIA ESTHER Cash [facility] 1538) 84151 POCT-GLUCOSE [id number] 12:19:00 Test Item Value Reference Range Interpretation Comments POC-GLUCOSE METER 114 mg/dL 70-110 H TESTED AT [place] [address] ([facility]) (test code = MARIA ESTHER [place] 1538) [id number] POCT-GLUCOSE [id number] 08:40:00 Test Item Value Reference Range Interpretation Comments POC-GLUCOSE METER 117 mg/dL 70-110 H TESTED AT [place] [address] ([facility]) (test code = MARIA ESTHER Cash [facility] 1538) [address] MR, PELVIS, [id number] 07:23:00FINAL REPORT MRI pelvis without and with [...] abscess.2. No evidence of osteomyelitis. Signed: Robert Laughlinort Verified Date/Time: 11/30/2017 07:23:22 Reading Location: [facility] B1 C013X Ortho Consult Reading Room POCT-GLUCOSE [id number] 22:33:00 Test Item Value Reference Range Interpretation Comments POC-GLUCOSE METER 137 mg/dL 70-110 H TESTED AT [place] [address] ([facility]) (test code = MARIA ESTHER [place] 1538) [id number] POCT-GLUCOSE [id number] 16:49:00 Test Item Value Reference Range Interpretation Comments POC-GLUCOSE METER 118 mg/dL 70-110 H TESTED AT [place] [address] ([facility]) (test code = MARIA ESTHER [place] 1538) [address] POCT-GLUCOSE [id number] 12:37:00 Test Item Value Reference Range Interpretation Comments POC-GLUCOSE METER 146 mg/dL 70-110 H TESTED AT [place] [address] ([facility]) (test code = MARIA ESTHER Cash [facility] 1538) [id number] POCT-GLUCOSE [id number] 08:46:00 Test Item Value Reference Range Interpretation Comments POC-GLUCOSE METER 109 mg/dL 70-110 TESTED AT [place] [address] ([facility]) (test code = MARIA ESTHER Cash [facility] 1538) [id number] 05:26:00 Test Item Value Reference Range Interpretation Comments PREALBUMIN ([facility]) (test code = 15 mg/dL 14-45 586) POCT-GLUCOSE [id number] 22:08:00 Test Item Value Reference Range Interpretation Comments POC-GLUCOSE METER 120 mg/dL 70-110 H TESTED AT [place] [address] ([facility]) (test code = MARIA ESTHER Cash [facility] 1538) 67853 RAD, CHEST, 1 VIEW, NON [id number] 22:05:00Reason for exam:->Post PICC line insertion RUE for tip verification.Should this be performed at the bedside?->YesFINAL REPORT [...] MDReport Verified Date/Time: 11/28/2017 22:05:39 Reading Location: [address] Reading Room POCT-GLUCOSE [id number] 17:58:00 Test Item Value Reference Range Interpretation Comments POC-GLUCOSE METER 181 mg/dL 70-[address] [facility] 6720 (BEAKER) (test code = MARIA ESTHER Cash [facility] 1538) 36693 BASIC METABOLIC [id number] 14:55:00 Test Item Value Reference Range Interpretation Comments SODIUM (BEAKER) 138 meq/L 136-145 (test code = 381) POTASSIUM (BEAKER) 4.2 meq/L 3.5-5.1 (test code = 379) CHLORIDE (BEAKER) 106 meq/L 98-107 (test code = 382) CO2 (BEAKER) (test 26 meq/L 22-29 code = 355) BLOOD UREA NITROGEN 21 mg/dL 7-21 (BEAKER) (test code = 354) CREATININE (BEAKER) 1.18 mg/dL 0.57-1.25 (test code = 358) GLUCOSE RANDOM 108 mg/dL 70-105 H (BEAKER) (test code = 652) CALCIUM (BEAKER) 9.3 mg/dL 8.4-10.2 (test code = 697) EGFR (BEAKER) (test 60 mL/min/1.73 ESTIMA RENUKA GFR IS code = 1092) sq m NOT ACCURATE CREATININE CLEARANCE IN PREDICTING GLOMERULAR FILTRATION RATE . ESTIMATED GFR I S NOT APPLICABLE FOR DIALYSIS PATIEN TS. CBC W/PLT COUNT & AUTO [id number] 14:29:00 Test Item Value Reference Range Interpretation Comments WHITE BLOOD CELL COUNT (BEAKER) 8.5 K/ L 3.5-10.5 (test code = 775) RED BLOOD CELL COUNT (BEAKER) 4.49 M/ L 4.63-6.08 L (test code = 761) HEMOGLOBIN (BEAKER) (test code = 11.6 GM/DL 13.7-17.5 L 410) HEMATOCRIT (BEAKER) (test code = 38.7 % 40.1-51.0 L 411) MEAN CORPUSCULAR VOLUME (BEAKER) 86.2 fL 79.0-92.2 (test code = 753) MEAN CORPUSCULAR HEMOGLOBIN 25.8 pg 25.7-32.2 (BEAKER) (test code = 751) MEAN CORPUSCULAR HEMOGLOBIN CONC 30.0 GM/DL 32.3-36.5 L (BEAKER) (test code = 752) RED CELL DISTRIBUTION WIDTH 19.9 % 11.6-14.4 H (BEAKER) (test code = 412) PLATELET COUNT (BEAKER) (test 395 K/CU MM 150-450 code = 756) MEAN PLATELET VOLUME (BEAKER) 11.0 fL 9.4-12.4 (test code = 754) NUCLEATED RED BLOOD CELLS 0 /100 WBC 0-0 (BEAKER) (test code = 413) NEUTROPHILS RELATIVE PERCENT 71 % (BEAKER) (test code = 429) LYMPHOCYTES RELATIVE PERCENT 20 % (BEAKER) (test code = 430) MONOCYTES RELATIVE PERCENT 6 % (BEAKER) (test code = 431) EOSINOPHILS RELATIVE PERCENT 1 % (BEAKER) (test code = 432) BASOPHILS RELATIVE PERCENT 1 % (BEAKER) (test code = 437) NEUTROPHILS ABSOLUTE COUNT 6.05 K/ L 1.78-5.38 H (BEAKER) (test code = 670) LYMPHOCYTES ABSOLUTE COUNT 1.73 K/ L 1.32-3.57 (BEAKER) (test code = 414) MONOCYTES ABSOLUTE COUNT (BEAKER) 0.52 K/ L 0.30-0.82 (test code = 415) EOSINOPHILS ABSOLUTE COUNT 0.12 K/ L 0.04-0.54 (BEAKER) (test code = 416) BASOPHILS ABSOLUTE COUNT (BEAKER) 0.05 K/ L 0.01-0.08 (test code = 417) IMMATURE GRANULOCYTES-RELATIVE 0 % 0-1 PERCENT (BEAKER) (test code = 2801) AFB CULTURE + [id number] 09:43:00 Test Item Value Reference Range Interpretation Comments CULTURE (BEAKER) (test No acid-fast bacilli code = 1095) isolated in 42 days AFB SMEAR (BEAKER) No acid fast bacilli (test code = 994) seen AFB CULTURE + [id number] 09:43:00 Test Item Value Reference Range Interpretation Comments CULTURE ([facility]) (test No acid-fast bacilli code = 1095) isolated in 42 days AFB SMEAR ([facility]) No acid fast bacilli (test code = 994) seen POCT-GLUCOSE [id number] 12:56:00 Test Item Value Reference Range Interpretation Comments POC-GLUCOSE METER 119 mg/dL 70-110 H TESTED AT [place] [address] ([facility]) (test code = MARIA ESTHER [place] 1538) [id number] POCT-GLUCOSE [id number] 08:17:00 Test Item Value Reference Range Interpretation Comments POC-GLUCOSE METER 111 mg/dL 70-110 H TESTED AT [place] [address] ([facility]) (test code = MARGARETMAYA [place] 1538) [id number] POCT-GLUCOSE [id number] 21:59:00 Test Item Value Reference Range Interpretation Comments POC-GLUCOSE METER 130 mg/dL 70-110 H TESTED AT [place] [address] ([facility]) (test code = MARIA ESTHER Cash [place] 1538) [address]90 POCT-GLUCOSE [id number] 16:59:00 Test Item Value Reference Range Interpretation Comments POC-GLUCOSE METER 120 mg/dL 70-110 H TESTED AT [place] [address] ([facility]) (test code = MARGARETMAYA Cash [place] 1538) [id number] POCT-GLUCOSE [id number] 11:30:00 Test Item Value Reference Range Interpretation Comments POC-GLUCOSE METER 125 mg/dL 70-110 H TESTED AT [place] [address] ([facility]) (test code = MARIA ESTHER Cash [place] 1538) [id number] POCT-GLUCOSE [id number] 07:44:00 Test Item Value Reference Range Interpretation Comments POC-GLUCOSE METER 104 mg/dL 70-110 TESTED AT [place] [address] ([facility]) (test code = MARIA ESTHER Cash [place] 1538) [id number] BASIC METABOLIC [id number] 06:15:00 Test Item Value Reference Range Interpretation Comments SODIUM (BEAKER) 140 meq/L 136-145 (test code = 381) POTASSIUM (BEAKER) 3.7 meq/L 3.5-5.1 (test code = 379) CHLORIDE (BEAKER) 114 meq/L 98-107 H (test code = 382) CO2 (BEAKER) (test 16 meq/L 22-29 L code = 355) BLOOD UREA NITROGEN 14 mg/dL 7-21 (BEAKER) (test code = 354) CREATININE (BEAKER) 0.85 mg/dL 0.57-1.25 (test code = 358) GLUCOSE RANDOM 83 mg/dL 70-105 (BEAKER) (test code = 652) CALCIUM (BEAKER) 7.9 mg/dL 8.4-10.2 L (test code = 697) EGFR (BEAKER) (test 88 mL/min/1.73 ESTIMA RENUKA GFR IS code = 1092) sq m NOT ACCURATE CREATININE CLEARANCE IN PREDICTING GLOMERULAR FILTRATION RATE . ESTIMATED GFR I S NOT APPLICABLE FOR DIALYSIS PATIEN TS. [id number] 06:05:00 Test Item Value Reference Range Interpretation Comments MAGNESIUM (BEAKER) (test code = 1.9 mg/dL 1.6-2.6 627) CBC W/PLT COUNT & AUTO [id number] 05:32:00 Test Item Value Reference Range Interpretation Comments WHITE BLOOD CELL COUNT (BEAKER) 8.9 K/ L 3.5-10.5 (test code = 775) RED BLOOD CELL COUNT (BEAKER) 4.06 M/ L 4.63-6.08 L (test code = 761) HEMOGLOBIN (BEAKER) (test code = 10.9 GM/DL 13.7-17.5 L 410) HEMATOCRIT (BEAKER) (test code = 37.1 % 40.1-51.0 L 411) MEAN CORPUSCULAR VOLUME (BEAKER) 91.4 fL 79.0-92.2 (test code = 753) MEAN CORPUSCULAR HEMOGLOBIN 26.8 pg 25.7-32.2 (BEAKER) (test code = 751) MEAN CORPUSCULAR HEMOGLOBIN CONC 29.4 GM/DL 32.3-36.5 L (BEAKER) (test code = 752) RED CELL DISTRIBUTION WIDTH 19.6 % 11.6-14.4 H (BEAKER) (test code = 412) PLATELET COUNT (BEAKER) (test 392 K/CU MM 150-450 code = 756) MEAN PLATELET VOLUME (BEAKER) 10.1 fL 9.4-12.4 (test code = 754) NUCLEATED RED BLOOD CELLS 0 /100 WBC 0-0 (BEAKER) (test code = 413) NEUTROPHILS RELATIVE PERCENT 70 % (BEAKER) (test code = 429) LYMPHOCYTES RELATIVE PERCENT 18 % (BEAKER) (test code = 430) MONOCYTES RELATIVE PERCENT 8 % (BEAKER) (test code = 431) EOSINOPHILS RELATIVE PERCENT 4 % (BEAKER) (test code = 432) BASOPHILS RELATIVE PERCENT 1 % (BEAKER) (test code = 437) NEUTROPHILS ABSOLUTE COUNT 6.20 K/ L 1.78-5.38 H (BEAKER) (test code = 670) LYMPHOCYTES ABSOLUTE COUNT 1.62 K/ L 1.32-3.57 (BEAKER) (test code = 414) MONOCYTES ABSOLUTE COUNT (BEAKER) 0.70 K/ L 0.30-0.82 (test code = 415) EOSINOPHILS ABSOLUTE COUNT 0.31 K/ L 0.04-0.54 (BEAKER) (test code = 416) BASOPHILS ABSOLUTE COUNT (BEAKER) 0.06 K/ L 0.01-0.08 (test code = 417) IMMATURE GRANULOCYTES-RELATIVE 0 % 0-1 PERCENT (BEAKER) (test code = 2801) POCT-GLUCOSE [id number] 20:45:00 Test Item Value Reference Range Interpretation Comments POC-GLUCOSE METER 158 mg/dL 70-[address] [facility] 6720 (BEAKER) (test code = MARIA ESTHER [place]ERR[place] 1538) [id number] POCT-GLUCOSE [id number] 17:10:00 Test Item Value Reference Range Interpretation Comments POC-GLUCOSE METER 149 mg/dL 70-[address] [facility] 67 (BEAKER) (test code = MARIA ESTHER [place] 1538) [address] FUNGUS CULTURE + [id number] 16:32:00 Test Item Value Reference Range Interpretation Comments CULTURE (BEAKER) (test No fungus isolated in code = 1095) 28 days FUNGUS SMEAR (BEAKER) No fungi seen (test code = 1406) FUNGUS CULTURE + [id number] 16:32:00 Test Item Value Reference Range Interpretation Comments CULTURE (BEAKER) (test No fungus isolated in code = 1095) 28 days FUNGUS SMEAR (BEAKER) No fungi seen (test code = 1406) POCT-GLUCOSE [id number] 11:59:00 Test Item Value Reference Range Interpretation Comments POC-GLUCOSE METER 135 mg/dL 70-[address] [facility] 6720 (BEAKER) (test code = MARIA ESTHER Cash [place] 1538) [id number] POCT-GLUCOSE [id number] 08:05:00 Test Item Value Reference Range Interpretation Comments POC-GLUCOSE METER 167 mg/dL 70-[address] [facility] 6720 (BEAKER) (test code = MARIA ESTHER Cash [place] 1538) [id number] BASIC METABOLIC [id number] 07:11:00 Test Item Value Reference Range Interpretation Comments SODIUM (BEAKER) 139 meq/L 136-145 (test code = 381) POTASSIUM (BEAKER) 3.7 meq/L 3.5-5.1 (test code = 379) CHLORIDE (BEAKER) 116 meq/L 98-107 H (test code = 382) CO2 (BEAKER) (test 18 meq/L 22-29 L code = 355) BLOOD UREA NITROGEN 14 mg/dL 7-21 (BEAKER) (test code = 354) CREATININE (BEAKER) 0.84 mg/dL 0.57-1.25 (test code = 358) GLUCOSE RANDOM 95 mg/dL 70-105 (BEAKER) (test code = 652) CALCIUM (BEAKER) 7.7 mg/dL 8.4-10.2 L (test code = 697) EGFR (BEAKER) (test 89 mL/min/1.73 ESTIMA RENUKA GFR IS code = 1092) sq m NOT ACCURATE CREATININE CLEARANCE IN PREDICTING GLOMERULAR FILTRATION RATE . ESTIMATED GFR I S NOT APPLICABLE FOR DIALYSIS PATIEN TS. [id number] 07:08:00 Test Item Value Reference Range Interpretation Comments MAGNESIUM (BEAKER) (test code = 1.6 mg/dL 1.6-2.6 627) POCT-GLUCOSE [id number] 21:06:00 Test Item Value Reference Range Interpretation Comments POC-GLUCOSE METER 166 mg/dL 70-[address] [facility] 6720 (BEAKER) (test code = BAN[facility] Shreya [facility] 1538) [id number] POCT-GLUCOSE [id number] 17:25:00 Test Item Value Reference Range Interpretation Comments POC-GLUCOSE METER 149 mg/dL 70-110 H TESTED AT [place] [address] (BEAKER) (test code = [facility] [place] 1538) [id number] POCT-GLUCOSE [id number] 12:40:00 Test Item Value Reference Range Interpretation Comments POC-GLUCOSE METER 143 mg/dL 70-[address] [facility] 6720 (BEAKER) (test code = MARIA ESTHER Cash [facility] 1538) [id number] POCT-GLUCOSE [id number] 08:32:00 Test Item Value Reference Range Interpretation Comments POC-GLUCOSE METER 99 mg/dL 70-[address] [facility] 6720 (BEAKER) (test code = MARIA ESTHER Cash [facility] [id number] 1538) [id number] 07:01:00 Test Item Value Reference Range Interpretation Comments MAGNESIUM (BEAKER) 1.5 mg/dL 1.6-2.6 L Specimen slightly (test code = 627) hemolyzed BASIC METABOLIC [id number] 05:59:00 Test Item Value Reference Range Interpretation Comments SODIUM (BEAKER) 140 meq/L 136-145 (test code = 381) POTASSIUM (BEAKER) 3.9 meq/L 3.5-5.1 Specimen slightly (test code = 379) hemolyzed CHLORIDE (BEAKER) 117 meq/L 98-107 H (test code = 382) CO2 (BEAKER) (test 15 meq/L 22-29 L code = 355) BLOOD UREA NITROGEN 15 mg/dL 7-21 (BEAKER) (test code = 354) CREATININE (BEAKER) 0.81 mg/dL 0.57-1.25 Specimen slightly (test code = 358) hemolyzed GLUCOSE RANDOM 95 mg/dL 70-105 (BEAKER) (test code = 652) CALCIUM (BEAKER) 7.6 mg/dL 8.4-10.2 L (test code = 697) EGFR (BEAKER) (test 93 mL/min/1.73 ESTIMA RENUKA GFR IS code = 1092) sq m NOT ACCURATE CREATININE CLEARANCE IN PREDICTING GLOMERULAR FILTRATION RATE . ESTIMATED GFR I S NOT APPLICABLE FOR DIALYSIS PATIEN TS. CBC W/PLT COUNT & AUTO [id number] 05:12:00 Test Item Value Reference Range Interpretation Comments WHITE BLOOD CELL COUNT (BEAKER) 8.1 K/ L 3.5-10.5 (test code = 775) RED BLOOD CELL COUNT (BEAKER) 3.27 M/ L 4.63-6.08 L (test code = 761) HEMOGLOBIN (BEAKER) (test code = 8.8 GM/DL 13.7-17.5 L 410) HEMATOCRIT (BEAKER) (test code = 30.6 % 40.1-51.0 L 411) MEAN CORPUSCULAR VOLUME (BEAKER) 93.6 fL 79.0-92.2 H (test code = 753) MEAN CORPUSCULAR HEMOGLOBIN 26.9 pg 25.7-32.2 (BEAKER) (test code = 751) MEAN CORPUSCULAR HEMOGLOBIN CONC 28.8 GM/DL 32.3-36.5 L (BEAKER) (test code = 752) RED CELL DISTRIBUTION WIDTH 19.8 % 11.6-14.4 H (BEAKER) (test code = 412) PLATELET COUNT (BEAKER) (test 370 K/CU MM 150-450 code = 756) MEAN PLATELET VOLUME (BEAKER) 10.5 fL 9.4-12.4 (test code = 754) NUCLEATED RED BLOOD CELLS 0 /100 WBC 0-0 (BEAKER) (test code = 413) NEUTROPHILS RELATIVE PERCENT 67 % (BEAKER) (test code = 429) LYMPHOCYTES RELATIVE PERCENT 19 % (BEAKER) (test code = 430) MONOCYTES RELATIVE PERCENT 9 % (BEAKER) (test code = 431) EOSINOPHILS RELATIVE PERCENT 4 % (BEAKER) (test code = 432) BASOPHILS RELATIVE PERCENT 1 % (BEAKER) (test code = 437) NEUTROPHILS ABSOLUTE COUNT 5.46 K/ L 1.78-5.38 H (BEAKER) (test code = 670) LYMPHOCYTES ABSOLUTE COUNT 1.51 K/ L 1.32-3.57 (BEAKER) (test code = 414) MONOCYTES ABSOLUTE COUNT (BEAKER) 0.72 K/ L 0.30-0.82 (test code = 415) EOSINOPHILS ABSOLUTE COUNT 0.32 K/ L 0.04-0.54 (BEAKER) (test code = 416) BASOPHILS ABSOLUTE COUNT (BEAKER) 0.07 K/ L 0.01-0.08 (test code = 417) IMMATURE GRANULOCYTES-RELATIVE 1 % 0-1 PERCENT (BEAKER) (test code = 2801) POCT-GLUCOSE [id number] 21:38:00 Test Item Value Reference Range Interpretation Comments POC-GLUCOSE METER 119 mg/dL 70-[address] [facility] 6720 (BEAKER) (test code = BAN[facility] Shreya [facility] 1538) [address] POCT-GLUCOSE [id number] 17:02:00 Test Item Value Reference Range Interpretation Comments POC-GLUCOSE METER 150 mg/dL 70-110 H TESTED AT [place] [address] ([facility]) (test code = MARIA ESTHER Cash [facility] 1538) [id number] POCT-GLUCOSE [id number] 12:18:00 Test Item Value Reference Range Interpretation Comments POC-GLUCOSE METER 143 mg/dL 70-110 H TESTED AT [place] [address] ([facility]) (test code = BAN[facility] Shreya [facility] 1538) [address] POCT-GLUCOSE [id number] 10:33:00 Test Item Value Reference Range Interpretation Comments POC-GLUCOSE METER 184 mg/dL 70-110 H TESTED AT [place] [address] ([facility]) (test code = B[facility] Shreya [facility] 1538) [id number] POCT-GLUCOSE [id number] 21:23:00 Test Item Value Reference Range Interpretation Comments POC-GLUCOSE METER 130 mg/dL 70-110 H TESTED AT [place] [address] ([facility]) (test code = [facility] Shreya [facility] 1538) [address]48 POCT-GLUCOSE [id number] 17:48:00 Test Item Value Reference Range Interpretation Comments POC-GLUCOSE METER 117 mg/dL 70-110 H TESTED AT [place] [address] ([facility]) (test code = B[facility] Shreya [facility] 1538) [address] POCT-GLUCOSE [id number] 13:20:00 Test Item Value Reference Range Interpretation Comments POC-GLUCOSE METER 118 mg/dL 70-110 H TESTED AT [place] [address] ([facility]) (test code = [facility] 1538) [id number] POCT-GLUCOSE [id number] 08:15:00 Test Item Value Reference Range Interpretation Comments POC-GLUCOSE METER 102 mg/dL 70-110 TESTED AT [place] [address] ([facility]) (test code = [facility] 1538) [id number] BASIC METABOLIC [id number] 05:42:00 Test Item Value Reference Range Interpretation Comments SODIUM (AKER) 139 meq/L 136-145 (test code = 381) POTASSIUM (AKER) 4.2 meq/L 3.5-5.1 (test code = 379) CHLORIDE (BEAKER) 114 meq/L 98-107 H (test code = 382) CO2 (BEAKER) (test 17 meq/L 22-29 L code = 355) BLOOD UREA NITROGEN 17 mg/dL 7-21 (BEAKER) (test code = 354) CREATININE (BEAKER) 0.90 mg/dL 0.57-1.25 (test code = 358) GLUCOSE RANDOM 91 mg/dL 70-105 (BEAKER) (test code = 652) CALCIUM (BEAKER) 7.9 mg/dL 8.4-10.2 L (test code = 697) EGFR (BEAKER) (test 82 mL/min/1.73 ESTIMA RENUKA GFR IS code = 1092) sq m NOT ACCURATE CREATININE CLEARANCE IN PREDICTING GLOMERULAR FILTRATION RATE . ESTIMATED GFR I S NOT APPLICABLE FOR DIALYSIS PATIEN TS. CBC W/PLT COUNT & AUTO [id number] 04:58:00 Test Item Value Reference Range Interpretation Comments WHITE BLOOD CELL COUNT (BEAKER) 8.2 K/ L 3.5-10.5 (test code = 775) RED BLOOD CELL COUNT (BEAKER) 3.31 M/ L 4.63-6.08 L (test code = 761) HEMOGLOBIN (BEAKER) (test code = 9.1 GM/DL 13.7-17.5 L 410) HEMATOCRIT (BEAKER) (test code = 30.7 % 40.1-51.0 L 411) MEAN CORPUSCULAR VOLUME (BEAKER) 92.7 fL 79.0-92.2 H (test code = 753) MEAN CORPUSCULAR HEMOGLOBIN 27.5 pg 25.7-32.2 (BEAKER) (test code = 751) MEAN CORPUSCULAR HEMOGLOBIN CONC 29.6 GM/DL 32.3-36.5 L (BEAKER) (test code = 752) RED CELL DISTRIBUTION WIDTH 19.5 % 11.6-14.4 H (BEAKER) (test code = 412) PLATELET COUNT (BEAKER) (test 384 K/CU MM 150-450 code = 756) MEAN PLATELET VOLUME (BEAKER) 10.2 fL 9.4-12.4 (test code = 754) NUCLEATED RED BLOOD CELLS 0 /100 WBC 0-0 (BEAKER) (test code = 413) NEUTROPHILS RELATIVE PERCENT 69 % (BEAKER) (test code = 429) LYMPHOCYTES RELATIVE PERCENT 19 % (BEAKER) (test code = 430) MONOCYTES RELATIVE PERCENT 8 % (BEAKER) (test code = 431) EOSINOPHILS RELATIVE PERCENT 4 % (BEAKER) (test code = 432) BASOPHILS RELATIVE PERCENT 1 % (BEAKER) (test code = 437) NEUTROPHILS ABSOLUTE COUNT 5.61 K/ L 1.78-5.38 H (BEAKER) (test code = 670) LYMPHOCYTES ABSOLUTE COUNT 1.52 K/ L 1.32-3.57 (BEAKER) (test code = 414) MONOCYTES ABSOLUTE COUNT (BEAKER) 0.62 K/ L 0.30-0.82 (test code = 415) EOSINOPHILS ABSOLUTE COUNT 0.31 K/ L 0.04-0.54 (BEAKER) (test code = 416) BASOPHILS ABSOLUTE COUNT (BEAKER) 0.04 K/ L 0.01-0.08 (test code = 417) IMMATURE GRANULOCYTES-RELATIVE 1 % 0-1 PERCENT (BEAKER) (test code = 2801) POCT-GLUCOSE [id number] 20:56:00 Test Item Value Reference Range Interpretation Comments POC-GLUCOSE METER 106 mg/dL 70-110 TESTED AT [place] [address] ([facility]) (test code = BANNER Shreya [facility] 1538) [id number] POCT-GLUCOSE [id number] 16:55:00 Test Item Value Reference Range Interpretation Comments POC-GLUCOSE METER 106 mg/dL 70-110 TESTED AT [place] [address] ([facility]) ([facility] 1538) [id number] POCT-GLUCOSE [id number] 12:19:00 Test Item Value Reference Range Interpretation Comments POC-GLUCOSE METER 121 mg/dL 70-110 H TEST[facility] AT [place] [address] ([facility] (test code = BAN[facility] Shreya [facility] 1538) [address] POCT-GLUCOSE [id number] 07:51:00 Test Item Value Reference Range Interpretation Comments POC-GLUCOSE METER 190 mg/dL 70-110 H TESTED AT [place] [address] ([facility]) (test code = [facility] Shreya [facility] 1538) [address] POCT-GLUCOSE [id number] 21:29:00 Test Item Value Reference Range Interpretation Comments POC-GLUCOSE METER 117 mg/dL 70-110 H TESTED AT [facility] 6720 (BEAKER) (test code = [facility] 1538) [address] POCT-GLUCOSE [id number] 17:29:00 Test Item Value Reference Range Interpretation Comments POC-GLUCOSE METER 123 mg/dL 70-[address] [facility] 6720 (BEAKER) (test code = [facility] 1538) [id number] POCT-GLUCOSE [id number] 07:09:00 Test Item Value Reference Range Interpretation Comments POC-GLUCOSE METER 96 mg/dL 70-110 TESTED AT [place] [address] (BEAKER) (test code = [facility] [id number] 1538) BASIC METABOLIC [id number] 06:48:00 Test Item Value Reference Range Interpretation Comments SODIUM (BEAKER) 139 meq/L 136-145 (test code = 381) POTASSIUM (BEAKER) 4.2 meq/L 3.5-5.1 (test code = 379) CHLORIDE (BEAKER) 114 meq/L 98-107 H (test code = 382) CO2 (BEAKER) (test 17 meq/L 22-29 L code = 355) BLOOD UREA NITROGEN 18 mg/dL 7-21 (BEAKER) (test code = 354) CREATININE (BEAKER) 0.97 mg/dL 0.57-1.25 (test code = 358) GLUCOSE RANDOM 94 mg/dL 70-105 (BEAKER) (test code = 652) CALCIUM (BEAKER) 8.3 mg/dL 8.4-10.2 L (test code = 697) EGFR (BEAKER) (test 76 mL/min/1.73 ESTIMA RENUKA GFR IS code = 1092) sq m NOT ACCURATE CREATININE CLEARANCE IN PREDICTING GLOMERULAR FILTRATION RATE . ESTIMATED GFR I S NOT APPLICABLE FOR DIALYSIS PATIEN TS. CBC W/PLT COUNT & AUTO [id number] 05:36:00 Test Item Value Reference Range Interpretation Comments WHITE BLOOD CELL COUNT (BEAKER) 8.0 K/ L 3.5-10.5 (test code = 775) RED BLOOD CELL COUNT (BEAKER) 3.32 M/ L 4.63-6.08 L (test code = 761) HEMOGLOBIN (BEAKER) (test code = 9.1 GM/DL 13.7-17.5 L 410) HEMATOCRIT (BEAKER) (test code = 31.1 % 40.1-51.0 L 411) MEAN CORPUSCULAR VOLUME (BEAKER) 93.7 fL 79.0-92.2 H (test code = 753) MEAN CORPUSCULAR HEMOGLOBIN 27.4 pg 25.7-32.2 (BEAKER) (test code = 751) MEAN CORPUSCULAR HEMOGLOBIN CONC 29.3 GM/DL 32.3-36.5 L (BEAKER) (test code = 752) RED CELL DISTRIBUTION WIDTH 19.7 % 11.6-14.4 H (BEAKER) (test code = 412) PLATELET COUNT (BEAKER) (test 361 K/CU MM 150-450 code = 756) MEAN PLATELET VOLUME (BEAKER) 10.1 fL 9.4-12.4 (test code = 754) NUCLEATED RED BLOOD CELLS 0 /100 WBC 0-0 (BEAKER) (test code = 413) NEUTROPHILS RELATIVE PERCENT 66 % (BEAKER) (test code = 429) LYMPHOCYTES RELATIVE PERCENT 20 % (BEAKER) (test code = 430) MONOCYTES RELATIVE PERCENT 8 % (BEAKER) (test code = 431) EOSINOPHILS RELATIVE PERCENT 5 % (BEAKER) (test code = 432) BASOPHILS RELATIVE PERCENT 1 % (BEAKER) (test code = 437) NEUTROPHILS ABSOLUTE COUNT 5.27 K/ L 1.78-5.38 (BEAKER) (test code = 670) LYMPHOCYTES ABSOLUTE COUNT 1.62 K/ L 1.32-3.57 (BEAKER) (test code = 414) MONOCYTES ABSOLUTE COUNT (BEAKER) 0.61 K/ L 0.30-0.82 (test code = 415) EOSINOPHILS ABSOLUTE COUNT 0.42 K/ L 0.04-0.54 (BEAKER) (test code = 416) BASOPHILS ABSOLUTE COUNT (BEAKER) 0.05 K/ L 0.01-0.08 (test code = 417) IMMATURE GRANULOCYTES-RELATIVE 1 % 0-1 PERCENT (BEAKER) (test code = 2801) POCT-GLUCOSE [id number] 21:28:00 Test Item Value Reference Range Interpretation Comments POC-GLUCOSE METER 119 mg/dL 70-[address] [facility] 6720 (BEAKER) (test code = MARIA ESTHER [place] 1538) [id number] POCT-GLUCOSE [id number] 17:30:00 Test Item Value Reference Range Interpretation Comments POC-GLUCOSE METER 119 mg/dL 70-110 H TEST[facility] AT [place] [address] ([facility] (test code = MARIA ESTHER Cash [facility] 1538) [id number] POCT-GLUCOSE [id number] 12:16:00 Test Item Value Reference Range Interpretation Comments POC-GLUCOSE METER 172 mg/dL 70-110 H TESTED AT [place] [address] ([facility] (test [facility] = [facility] [place] 1538) [id number] POCT-GLUCOSE [id number] 08:15:00 Test Item Value Reference Range Interpretation Comments POC-GLUCOSE METER 118 mg/dL 70-110 H TESTED AT [place] [address] ([facility]) (test code = B[facility] Shreya [facility] 1538) [id number] POCT-GLUCOSE [id number] 20:56:00 Test Item Value Reference Range Interpretation Comments POC-GLUCOSE METER 171 mg/dL 70-110 H TESTED AT [place] [address] ([facility]) (test code = [facility] 1538) [id number] POCT-GLUCOSE [id number] 16:52:00 Test Item Value Reference Range Interpretation Comments POC-GLUCOSE METER 130 mg/dL 70-110 H TESTED AT [place] [address] ([facility]) (test code = [facility] Shreya [facility] 1538) [address]51 POCT-GLUCOSE [id number] 12:59:00 Test Item Value Reference Range Interpretation Comments POC-GLUCOSE METER 124 mg/dL 70-110 H TESTED AT [place] [address] ([facility] (test code = [facility] Shreya [facility] 1538) [id number] POCT-GLUCOSE [id number] 07:37:00 Test Item Value Reference Range Interpretation Comments POC-GLUCOSE METER 95 mg/dL 70-110 TESTED AT [place] [address] ([facility] (test code = B[facility] Shreya [facility] [address] 1538) BASIC METABOLIC [id number] 05:54:00 Test Item Value Reference Range Interpretation Comments SODIUM (BEAKER) 140 meq/L 136-145 (test code = 381) POTASSIUM (BEAKER) 4.4 meq/L 3.5-5.1 (test code = 379) CHLORIDE (BEAKER) 116 meq/L 98-107 H (test code = 382) CO2 (BEAKER) (test 17 meq/L 22-29 L code = 355) BLOOD UREA NITROGEN 16 mg/dL 7-21 (BEAKER) (test code = 354) CREATININE (BEAKER) 1.01 mg/dL 0.57-1.25 (test code = 358) GLUCOSE RANDOM 98 mg/dL 70-105 (BEAKER) (test code = 652) CALCIUM (BEAKER) 8.3 mg/dL 8.4-10.2 L (test code = 697) EGFR (BEAKER) (test 72 mL/min/1.73 ESTIMA RENUKA GFR IS code = 1092) sq m NOT ACCURATE CREATININE CLEARANCE IN PREDICTING GLOMERULAR FILTRATION RATE . ESTIMATED GFR I S NOT APPLICABLE FOR DIALYSIS PATIEN TS. CBC W/PLT COUNT & AUTO [id number] 05:33:00 Test Item Value Reference Range Interpretation Comments WHITE BLOOD CELL COUNT (BEAKER) 8.8 K/ L 3.5-10.5 (test code = 775) RED BLOOD CELL COUNT (BEAKER) 3.34 M/ L 4.63-6.08 L (test code = 761) HEMOGLOBIN (BEAKER) (test code = 9.2 GM/DL 13.7-17.5 L 410) HEMATOCRIT (BEAKER) (test code = 31.9 % 40.1-51.0 L 411) MEAN CORPUSCULAR VOLUME (BEAKER) 95.5 fL 79.0-92.2 H (test code = 753) MEAN CORPUSCULAR HEMOGLOBIN 27.5 pg 25.7-32.2 (BEAKER) (test code = 751) MEAN CORPUSCULAR HEMOGLOBIN CONC 28.8 GM/DL 32.3-36.5 L (BEAKER) (test code = 752) RED CELL DISTRIBUTION WIDTH 19.8 % 11.6-14.4 H (BEAKER) (test code = 412) PLATELET COUNT (BEAKER) (test 375 K/CU MM 150-450 code = 756) MEAN PLATELET VOLUME (BEAKER) 9.9 fL 9.4-12.4 (test code = 754) NUCLEATED RED BLOOD CELLS 0 /100 WBC 0-0 (BEAKER) (test code = 413) NEUTROPHILS RELATIVE PERCENT 69 % (BEAKER) (test code = 429) LYMPHOCYTES RELATIVE PERCENT 17 % (BEAKER) (test code = 430) MONOCYTES RELATIVE PERCENT 8 % (BEAKER) (test code = 431) EOSINOPHILS RELATIVE PERCENT 5 % (BEAKER) (test code = 432) BASOPHILS RELATIVE PERCENT 1 % (BEAKER) (test code = 437) NEUTROPHILS ABSOLUTE COUNT 6.05 K/ L 1.78-5.38 H (BEAKER) (test code = 670) LYMPHOCYTES ABSOLUTE COUNT 1.53 K/ L 1.32-3.57 (BEAKER) (test code = 414) MONOCYTES ABSOLUTE COUNT (BEAKER) 0.73 K/ L 0.30-0.82 (test code = 415) EOSINOPHILS ABSOLUTE COUNT 0.40 K/ L 0.04-0.54 (BEAKER) (test code = 416) BASOPHILS ABSOLUTE COUNT (BEAKER) 0.05 K/ L 0.01-0.08 (test code = 417) IMMATURE GRANULOCYTES-RELATIVE 1 % 0-1 PERCENT (BEAKER) (test code = 2801) POCT-GLUCOSE [id number] 21:13:00 Test Item Value Reference Range Interpretation Comments POC-GLUCOSE METER 159 mg/dL 70-110 H TESTED AT [place] [address] ([facility]) [facility] 1538) [id number] POCT-GLUCOSE [id number] 17:08:00 Test Item Value Reference Range Interpretation Comments POC-GLUCOSE METER 150 mg/dL 70-110 H TESTED AT [place] [address] ([facility]) (test [facility] = [facility] 1538) [id number] POCT-GLUCOSE [id number] 12:03:00 Test Item Value Reference Range Interpretation Comments POC-GLUCOSE METER 163 mg/dL 70-110 H TESTED AT [place] [address] ([facility]) (test code = [facility] Shreya [facility] 1538) [id number] POCT-GLUCOSE [id number] 08:07:00 Test Item Value Reference Range Interpretation Comments POC-GLUCOSE METER 114 mg/dL 70-[address] [facility] [address] ([facility]) (test code = [facility] Shreya [facility] 1538) [id number] POCT-GLUCOSE [id number] 01:27:00 Test Item Value Reference Range Interpretation Comments POC-GLUCOSE METER 116 mg/dL 70-[address] [facility] [address] ([facility]) (test code = [facility] 1538) [id number] POCT-GLUCOSE [id number] 19:42:00 Test Item Value Reference Range Interpretation Comments POC-GLUCOSE METER 119 mg/dL 70-[address] [facility] [address] (BEAKER) (test code = MARIA ESTHER Cash [place] 1538) [id number] POCT-GLUCOSE [id number] 12:22:00 Test Item Value Reference Range Interpretation Comments POC-GLUCOSE METER 130 mg/dL 70-[address] [facility] [address] (BEAKER) (test code = [facility] EST[facility] [place] 1538) [id number] POCT-GLUCOSE [id number] 07:40:00 Test Item Value Reference Range Interpretation Comments POC-GLUCOSE METER 132 mg/dL 70-[address] [facility] [address] (BEAKER) (test code = MARIA ESTHER Cash [place] 1538) [id number] BASIC METABOLIC [id number] 05:37:00 Test Item Value Reference Range Interpretation Comments SODIUM (BEAKER) 136 meq/L 136-145 (test code = 381) POTASSIUM (BEAKER) 4.2 meq/L 3.5-5.1 (test code = 379) CHLORIDE (BEAKER) 111 meq/L 98-107 H (test code = 382) CO2 (BEAKER) (test 18 meq/L 22-29 L code = 355) BLOOD UREA NITROGEN 21 mg/dL 7-21 (BEAKER) (test code = 354) CREATININE (BEAKER) 0.90 mg/dL 0.57-1.25 (test code = 358) GLUCOSE RANDOM 102 mg/dL 70-105 (BEAKER) (test code = 652) CALCIUM (BEAKER) 7.8 mg/dL 8.4-10.2 L (test code = 697) EGFR (BEAKER) (test 82 mL/min/1.73 ESTIMA RENUKA GFR IS code = 1092) sq m NOT ACCURATE CREATININE CLEARANCE IN PREDICTING GLOMERULAR FILTRATION RATE . ESTIMATED GFR I S NOT APPLICABLE FOR DIALYSIS PATIEN TS. CBC W/PLT COUNT & AUTO [id number] 05:03:00 Test Item Value Reference Range Interpretation Comments WHITE BLOOD CELL COUNT (BEAKER) 9.7 K/ L 3.5-10.5 (test code = 775) RED BLOOD CELL COUNT (BEAKER) 3.04 M/ L 4.63-6.08 L (test code = 761) HEMOGLOBIN (BEAKER) (test code = 8.3 GM/DL 13.7-17.5 L 410) HEMATOCRIT (BEAKER) (test code = 28.9 % 40.1-51.0 L 411) MEAN CORPUSCULAR VOLUME (BEAKER) 95.1 fL 79.0-92.2 H (test code = 753) MEAN CORPUSCULAR HEMOGLOBIN 27.3 pg 25.7-32.2 (BEAKER) (test code = 751) MEAN CORPUSCULAR HEMOGLOBIN CONC 28.7 GM/DL 32.3-36.5 L (BEAKER) (test code = 752) RED CELL DISTRIBUTION WIDTH 19.7 % 11.6-14.4 H (BEAKER) (test code = 412) PLATELET COUNT (BEAKER) (test 356 K/CU MM 150-450 code = 756) MEAN PLATELET VOLUME (BEAKER) 10.4 fL 9.4-12.4 (test code = 754) NUCLEATED RED BLOOD CELLS 0 /100 WBC 0-0 (BEAKER) (test code = 413) NEUTROPHILS RELATIVE PERCENT 72 % (BEAKER) (test code = 429) LYMPHOCYTES RELATIVE PERCENT 15 % (BEAKER) (test code = 430) MONOCYTES RELATIVE PERCENT 7 % (BEAKER) (test code = 431) EOSINOPHILS RELATIVE PERCENT 5 % (BEAKER) (test code = 432) BASOPHILS RELATIVE PERCENT 1 % (BEAKER) (test code = 437) NEUTROPHILS ABSOLUTE COUNT 6.97 K/ L 1.78-5.38 H (BEAKER) (test code = 670) LYMPHOCYTES ABSOLUTE COUNT 1.48 K/ L 1.32-3.57 (BEAKER) (test code = 414) MONOCYTES ABSOLUTE COUNT (BEAKER) 0.69 K/ L 0.30-0.82 (test code = 415) EOSINOPHILS ABSOLUTE COUNT 0.44 K/ L 0.04-0.54 (BEAKER) (test code = 416) BASOPHILS ABSOLUTE COUNT (BEAKER) 0.05 K/ L 0.01-0.08 (test code = 417) IMMATURE GRANULOCYTES-RELATIVE 1 % 0-1 PERCENT (BEAKER) (test code = 2801) POCT-GLUCOSE [id number] 21:34:00 Test Item Value Reference Range Interpretation Comments POC-GLUCOSE METER 141 mg/dL 70-[address] [facility] 6720 (BEAKER) (test code = MARIA ESTHER LLOYD 1538) [address] POCT-GLUCOSE [id number] 18:21:00 Test Item Value Reference Range Interpretation Comments POC-GLUCOSE METER 131 mg/dL 70-110 H TEST[facility] AT [place] [address] [facility] (test code = MARIA ESTHER Cash [facility] 1538) [address] POCT-GLUCOSE [id number] 12:54:00 Test Item Value Reference Range Interpretation Comments POC-GLUCOSE METER 139 mg/dL 70-110 H TEST[facility] AT [place] [address] ([facility] (test code = MARIA ESTHER Cash [facility] 1538) [address] POCT-GLUCOSE [id number] 08:41:00 Test Item Value Reference Range Interpretation Comments POC-GLUCOSE METER 132 mg/dL 70-110 H TESTED AT [place] [address] ([facility] (test code = MARIA ESTHER Cash [facility] 1538) [address] BASIC METABOLIC [id number] 05:44:00 Test Item Value Reference Range Interpretation Comments SODIUM (BEAKER) 137 meq/L 136-145 (test code = 381) POTASSIUM (BEAKER) 3.9 meq/L 3.5-5.1 (test code = 379) CHLORIDE (BEAKER) 111 meq/L 98-107 H (test code = 382) CO2 (BEAKER) (test 17 meq/L 22-29 L code = 355) BLOOD UREA NITROGEN 21 mg/dL 7-21 (BEAKER) (test code = 354) CREATININE (BEAKER) 1.01 mg/dL 0.57-1.25 (test code = 358) GLUCOSE RANDOM 136 mg/dL 70-105 H (BEAKER) (test code = 652) CALCIUM (BEAKER) 7.6 mg/dL 8.4-10.2 L (test code = 697) EGFR (BEAKER) (test 72 mL/min/1.73 ESTIMA RENUKA GFR IS code = 1092) sq m NOT ACCURATE CREATININE CLEARANCE IN PREDICTING GLOMERULAR FILTRATION RATE . ESTIMATED GFR I S NOT APPLICABLE FOR DIALYSIS PATIEN TS. CBC W/PLT COUNT & AUTO [id number] 04:59:00 Test Item Value Reference Range Interpretation Comments WHITE BLOOD CELL COUNT (BEAKER) 9.8 K/ L 3.5-10.5 (test code = 775) RED BLOOD CELL COUNT (BEAKER) 3.06 M/ L 4.63-6.08 L (test code = 761) HEMOGLOBIN (BEAKER) (test code = 8.5 GM/DL 13.7-17.5 L 410) HEMATOCRIT (BEAKER) (test code = 29.4 % 40.1-51.0 L 411) MEAN CORPUSCULAR VOLUME (BEAKER) 96.1 fL 79.0-92.2 H (test code = 753) MEAN CORPUSCULAR HEMOGLOBIN 27.8 pg 25.7-32.2 (BEAKER) (test code = 751) MEAN CORPUSCULAR HEMOGLOBIN CONC 28.9 GM/DL 32.3-36.5 L (BEAKER) (test code = 752) RED CELL DISTRIBUTION WIDTH 19.9 % 11.6-14.4 H (BEAKER) (test code = 412) PLATELET COUNT (BEAKER) (test 357 K/CU MM 150-450 code = 756) MEAN PLATELET VOLUME (BEAKER) 10.1 fL 9.4-12.4 (test code = 754) NUCLEATED RED BLOOD CELLS 0 /100 WBC 0-0 (BEAKER) (test code = 413) NEUTROPHILS RELATIVE PERCENT 73 % (BEAKER) (test code = 429) LYMPHOCYTES RELATIVE PERCENT 13 % (BEAKER) (test code = 430) MONOCYTES RELATIVE PERCENT 7 % (BEAKER) (test code = 431) EOSINOPHILS RELATIVE PERCENT 5 % (BEAKER) (test code = 432) BASOPHILS RELATIVE PERCENT 1 % (BEAKER) (test code = 437) NEUTROPHILS ABSOLUTE COUNT 7.20 K/ L 1.78-5.38 H (BEAKER) (test code = 670) LYMPHOCYTES ABSOLUTE COUNT 1.28 K/ L 1.32-3.57 L (BEAKER) (test code = 414) MONOCYTES ABSOLUTE COUNT (BEAKER) 0.72 K/ L 0.30-0.82 (test code = 415) EOSINOPHILS ABSOLUTE COUNT 0.47 K/ L 0.04-0.54 (BEAKER) (test code = 416) BASOPHILS ABSOLUTE COUNT (BEAKER) 0.05 K/ L 0.01-0.08 (test code = 417) IMMATURE GRANULOCYTES-RELATIVE 1 % 0-1 PERCENT (BEAKER) (test code = 2801) POCT-GLUCOSE [id number] 21:21:00 Test Item Value Reference Range Interpretation Comments POC-GLUCOSE METER 141 mg/dL 70-110 H TESTED AT [place] [address] (BEAKER) (test code = MARIA ESTHER Cash [facility] 1538) [address] POCT-GLUCOSE [id number] 17:50:00 Test Item Value Reference Range Interpretation Comments POC-GLUCOSE METER 142 mg/dL 70-110 H TESTED AT [place] [address] (BEAKER) (test code = MARIA ESTHER Cash [facility] 1538) [address] POCT-GLUCOSE [id number] 12:12:00 Test Item Value Reference Range Interpretation Comments POC-GLUCOSE METER 148 mg/dL 70-110 H TESTED AT [place] [address] (BEAKER) (test code = MARIA ESTHER Cash [facility] 1538) [address] HEPATIC FUNCTION [id number] 09:57:00 Test Item Value Reference Range Interpretation Comments TOTAL PROTEIN (BEAKER) (test code = 5.7 gm/dL 6.0-8.3 L 770) ALBUMIN (BEAKER) (test code = 1145) 2.5 g/dL 3.5-5.0 L BILIRUBIN TOTAL (BEAKER) (test code 0.4 mg/dL 0.2-1.2 = 377) BILIRUBIN DIRECT (BEAKER) (test 0.2 mg/dL 0.1-0.5 code = 706) ALKALINE PHOSPHATASE (BEAKER) (test 65 U/L 40-150 code = 346) AST (SGOT) (BEAKER) (test code = 18 U/L 5-34 353) ALT (SGPT) (BEAKER) (test code = 11 U/L 6-55 347) BASIC METABOLIC [id number] 08:36:00 Test Item Value Reference Range Interpretation Comments SODIUM (BEAKER) 139 meq/L 136-145 (test code = 381) POTASSIUM (BEAKER) 4.1 meq/L 3.5-5.1 (test code = 379) CHLORIDE (BEAKER) 111 meq/L 98-107 H (test code = 382) CO2 (BEAKER) (test 19 meq/L 22-29 L code = 355) BLOOD UREA NITROGEN 31 mg/dL 7-21 H (BEAKER) (test code = 354) CREATININE (BEAKER) 1.29 mg/dL 0.57-1.25 H (test code = 358) GLUCOSE RANDOM 138 mg/dL 70-105 H (BEAKER) (test code = 652) CALCIUM (BEAKER) 7.7 mg/dL 8.4-10.2 L (test code = 697) EGFR (BEAKER) (test 54 mL/min/1.73 ESTIMA RENUKA GFR IS code = 1092) sq m NOT ACCURATE CREATININE CLEARANCE IN PREDICTING GLOMERULAR FILTRATION RATE . ESTIMATED GFR I S NOT APPLICABLE FOR DIALYSIS PATIEN TS. POCT-GLUCOSE [id number] 08:14:00 Test Item Value Reference Range Interpretation Comments POC-GLUCOSE METER 156 mg/dL 70-[address] [facility] 6720 (BEAKER) (test code = MARIA ESTHER [place] 1538) [address] CBC W/PLT COUNT & AUTO [id number] 08:14:00 Test Item Value Reference Range Interpretation Comments WHITE BLOOD CELL COUNT (BEAKER) 9.2 K/ L 3.5-10.5 (test code = 775) RED BLOOD CELL COUNT (BEAKER) 3.41 M/ L 4.63-6.08 L (test code = 761) HEMOGLOBIN (BEAKER) (test code = 9.3 GM/DL 13.7-17.5 L 410) HEMATOCRIT (BEAKER) (test code = 32.5 % 40.1-51.0 L 411) MEAN CORPUSCULAR VOLUME (BEAKER) 95.3 fL 79.0-92.2 H (test code = 753) MEAN CORPUSCULAR HEMOGLOBIN 27.3 pg 25.7-32.2 (BEAKER) (test code = 751) MEAN CORPUSCULAR HEMOGLOBIN CONC 28.6 GM/DL 32.3-36.5 L (BEAKER) (test code = 752) RED CELL DISTRIBUTION WIDTH 20.0 % 11.6-14.4 H (BEAKER) (test code = 412) PLATELET COUNT (BEAKER) (test 387 K/CU MM 150-450 code = 756) MEAN PLATELET VOLUME (BEAKER) 10.2 fL 9.4-12.4 (test code = 754) NUCLEATED RED BLOOD CELLS 0 /100 WBC 0-0 (BEAKER) (test code = 413) NEUTROPHILS RELATIVE PERCENT 76 % (BEAKER) (test code = 429) LYMPHOCYTES RELATIVE PERCENT 12 % (BEAKER) (test code = 430) MONOCYTES RELATIVE PERCENT 9 % (BEAKER) (test code = 431) EOSINOPHILS RELATIVE PERCENT 2 % (BEAKER) (test code = 432) BASOPHILS RELATIVE PERCENT 1 % (BEAKER) (test code = 437) NEUTROPHILS ABSOLUTE COUNT 6.98 K/ L 1.78-5.38 H (BEAKER) (test code = 670) LYMPHOCYTES ABSOLUTE COUNT 1.10 K/ L 1.32-3.57 L (BEAKER) (test code = 414) MONOCYTES ABSOLUTE COUNT (BEAKER) 0.79 K/ L 0.30-0.82 (test code = 415) EOSINOPHILS ABSOLUTE COUNT 0.17 K/ L 0.04-0.54 (BEAKER) (test code = 416) BASOPHILS ABSOLUTE COUNT (BEAKER) 0.06 K/ L 0.01-0.08 (test code = 417) IMMATURE GRANULOCYTES-RELATIVE 1 % 0-1 PERCENT (BEAKER) (test code = 2801) POCT-GLUCOSE [id number] 21:25:00 Test Item Value Reference Range Interpretation Comments POC-GLUCOSE METER 144 mg/dL 70-110 H TESTED AT [place] [address] ([facility] (test code = MARIA ESTHER Cash [facility] 1538) [id number] POCT-GLUCOSE [id number] 17:34:00 Test Item Value Reference Range Interpretation Comments POC-GLUCOSE METER 155 mg/dL 70-110 H TESTED AT [place] [address] ([facility]) (test code = MARIA ESTHER Cash [facility] 1538) [address] POCT-GLUCOSE [id number] 11:45:00 Test Item Value Reference Range Interpretation Comments POC-GLUCOSE METER 114 mg/dL 70-110 H TESTED AT [place] [address] ([facility] (test code = MARIA ESTHER Cash [facility] 1538) [address] POCT-GLUCOSE [id number] 07:56:00 Test Item Value Reference Range Interpretation Comments POC-GLUCOSE METER 106 mg/dL 70-110 TESTED AT [place] [address] ([facility] ([facility] 1538) [address] BASIC METABOLIC [id number] 05:58:00 Test Item Value Reference Range Interpretation Comments SODIUM (BEAKER) 137 meq/L 136-145 (test code = 381) POTASSIUM (BEAKER) 4.6 meq/L 3.5-5.1 (test code = 379) CHLORIDE (BEAKER) 110 meq/L 98-107 H (test code = 382) CO2 (BEAKER) (test 18 meq/L 22-29 L code = 355) BLOOD UREA NITROGEN 38 mg/dL 7-21 H (BEAKER) (test code = 354) CREATININE (BEAKER) 1.32 mg/dL 0.57-1.25 H (test code = 358) GLUCOSE RANDOM 105 mg/dL 70-105 (BEAKER) (test code = 652) CALCIUM (BEAKER) 8.0 mg/dL 8.4-10.2 L (test code = 697) EGFR (BEAKER) (test 53 mL/min/1.73 ESTIMA RENUKA GFR IS code = 1092) sq m NOT ACCURATE CREATININE CLEARANCE IN PREDICTING GLOMERULAR FILTRATION RATE . ESTIMATED GFR I S NOT APPLICABLE FOR DIALYSIS PATIEN TS. CBC W/PLT COUNT & AUTO [id number] 05:42:00 Test Item Value Reference Range Interpretation Comments WHITE BLOOD CELL COUNT (BEAKER) 9.1 K/ L 3.5-10.5 (test code = 775) RED BLOOD CELL COUNT (BEAKER) 3.38 M/ L 4.63-6.08 L (test code = 761) HEMOGLOBIN (BEAKER) (test code = 9.2 GM/DL 13.7-17.5 L 410) HEMATOCRIT (BEAKER) (test code = 31.5 % 40.1-51.0 L 411) MEAN CORPUSCULAR VOLUME (BEAKER) 93.2 fL 79.0-92.2 H (test code = 753) MEAN CORPUSCULAR HEMOGLOBIN 27.2 pg 25.7-32.2 (BEAKER) (test code = 751) MEAN CORPUSCULAR HEMOGLOBIN CONC 29.2 GM/DL 32.3-36.5 L (BEAKER) (test code = 752) RED CELL DISTRIBUTION WIDTH 19.4 % 11.6-14.4 H (BEAKER) (test code = 412) PLATELET COUNT (BEAKER) (test 379 K/CU MM 150-450 code = 756) MEAN PLATELET VOLUME (BEAKER) 9.9 fL 9.4-12.4 (test code = 754) NUCLEATED RED BLOOD CELLS 0 /100 WBC 0-0 (BEAKER) (test code = 413) NEUTROPHILS RELATIVE PERCENT 70 % (BEAKER) (test code = 429) LYMPHOCYTES RELATIVE PERCENT 18 % (BEAKER) (test code = 430) MONOCYTES RELATIVE PERCENT 7 % (BEAKER) (test code = 431) EOSINOPHILS RELATIVE PERCENT 3 % (BEAKER) (test code = 432) BASOPHILS RELATIVE PERCENT 1 % (BEAKER) (test code = 437) NEUTROPHILS ABSOLUTE COUNT 6.33 K/ L 1.78-5.38 H (BEAKER) (test code = 670) LYMPHOCYTES ABSOLUTE COUNT 1.65 K/ L 1.32-3.57 (BEAKER) (test code = 414) MONOCYTES ABSOLUTE COUNT (BEAKER) 0.66 K/ L 0.30-0.82 (test code = 415) EOSINOPHILS ABSOLUTE COUNT 0.28 K/ L 0.04-0.54 (BEAKER) (test code = 416) BASOPHILS ABSOLUTE COUNT (BEAKER) 0.07 K/ L 0.01-0.08 (test code = 417) IMMATURE GRANULOCYTES-RELATIVE 1 % 0-1 PERCENT (BEAKER) (test code = 2801) POCT-GLUCOSE [id number] 21:38:00 Test Item Value Reference Range Interpretation Comments POC-GLUCOSE METER 124 mg/dL 70-110 H TESTED AT [place] [address] (BEAKER) (test code = BANNER Shreya [facility] 1538) [address] POCT-GLUCOSE [id number] 18:26:00 Test Item Value Reference Range Interpretation Comments POC-GLUCOSE METER 115 mg/dL 70-110 H TEST[facility] AT [place] [address] ([facility] (test code = BANNER Shreya [facility] 1538) [address] POCT-GLUCOSE [id number] 11:51:00 Test Item Value Reference Range Interpretation Comments POC-GLUCOSE METER 148 mg/dL 70-110 H TESTED AT [place] [address] (BEAKER) (test code = BANNER Shreya [facility] 1538) [address] POCT-GLUCOSE [id number] 08:28:00 Test Item Value Reference Range Interpretation Comments POC-GLUCOSE METER 124 mg/dL 70-110 H TESTED AT [place] [address] (BEAKER) (test code = BANNER Shreya [facility] 1538) [address] BASIC METABOLIC [id number] 06:52:00 Test Item Value Reference Range Interpretation Comments SODIUM (BEAKER) 138 meq/L 136-145 (test code = 381) POTASSIUM (BEAKER) 4.4 meq/L 3.5-5.1 (test code = 379) CHLORIDE (BEAKER) 109 meq/L 98-107 H (test code = 382) CO2 (BEAKER) (test 21 meq/L 22-29 L code = 355) BLOOD UREA NITROGEN 48 mg/dL 7-21 H (BEAKER) (test code = 354) CREATININE (BEAKER) 1.40 mg/dL 0.57-1.25 H (test code = 358) GLUCOSE RANDOM 112 mg/dL 70-105 H (BEAKER) (test code = 652) CALCIUM (BEAKER) 8.2 mg/dL 8.4-10.2 L (test code = 697) EGFR (BEAKER) (test 50 mL/min/1.73 ESTIMA RENUKA GFR IS code = 1092) sq m NOT ACCURATE CREATININE CLEARANCE IN PREDICTING GLOMERULAR FILTRATION RATE . ESTIMATED GFR I S NOT APPLICABLE FOR DIALYSIS PATIEN TS. CBC W/PLT COUNT & AUTO [id number] 06:19:00 Test Item Value Reference Range Interpretation Comments WHITE BLOOD CELL COUNT (BEAKER) 9.2 K/ L 3.5-10.5 (test code = 775) RED BLOOD CELL COUNT (BEAKER) 3.32 M/ L 4.63-6.08 L (test code = 761) HEMOGLOBIN (BEAKER) (test code = 9.2 GM/DL 13.7-17.5 L 410) HEMATOCRIT (BEAKER) (test code = 31.3 % 40.1-51.0 L 411) MEAN CORPUSCULAR VOLUME (BEAKER) 94.3 fL 79.0-92.2 H (test code = 753) MEAN CORPUSCULAR HEMOGLOBIN 27.7 pg 25.7-32.2 (BEAKER) (test code = 751) MEAN CORPUSCULAR HEMOGLOBIN CONC 29.4 GM/DL 32.3-36.5 L (BEAKER) (test code = 752) RED CELL DISTRIBUTION WIDTH 19.5 % 11.6-14.4 H (BEAKER) (test code = 412) PLATELET COUNT (BEAKER) (test 420 K/CU MM 150-450 code = 756) MEAN PLATELET VOLUME (BEAKER) 10.1 fL 9.4-12.4 (test code = 754) NUCLEATED RED BLOOD CELLS 0 /100 WBC 0-0 (BEAKER) (test code = 413) NEUTROPHILS RELATIVE PERCENT 68 % (BEAKER) (test code = 429) LYMPHOCYTES RELATIVE PERCENT 19 % (BEAKER) (test code = 430) MONOCYTES RELATIVE PERCENT 9 % (BEAKER) (test code = 431) EOSINOPHILS RELATIVE PERCENT 3 % (BEAKER) (test code = 432) BASOPHILS RELATIVE PERCENT 1 % (BEAKER) (test code = 437) NEUTROPHILS ABSOLUTE COUNT 6.25 K/ L 1.78-5.38 H (BEAKER) (test code = 670) LYMPHOCYTES ABSOLUTE COUNT 1.72 K/ L 1.32-3.57 (BEAKER) (test code = 414) MONOCYTES ABSOLUTE COUNT (BEAKER) 0.80 K/ L 0.30-0.82 (test code = 415) EOSINOPHILS ABSOLUTE COUNT 0.29 K/ L 0.04-0.54 (BEAKER) (test code = 416) BASOPHILS ABSOLUTE COUNT (BEAKER) 0.07 K/ L 0.01-0.08 (test code = 417) IMMATURE GRANULOCYTES-RELATIVE 1 % 0-1 PERCENT (BEAKER) (test code = 2801) POCT-GLUCOSE [id number] 21:24:00 Test Item Value Reference Range Interpretation Comments POC-GLUCOSE METER 153 mg/dL 70-110 H TESTED AT [place] [address] ([facility]) (test code = MARIA ESTHER Cash [facility] 1538) [address] POCT-GLUCOSE [id number] 16:21:00 Test Item Value Reference Range Interpretation Comments POC-GLUCOSE METER 177 mg/dL 70-110 H TESTED AT [place] [address] ([facility]) (test [facility] = [facility] 1538) [address] AFB CULTURE + [id number] 12:45:00 Test Item Value Reference Range Interpretation Comments CULTURE (BEAKER) (test No acid-fast bacilli code = 1095) isolated in 42 days AFB SMEAR ([facility]) No acid fast bacilli (test code = 994) seen POCT-GLUCOSE [id number] 12:07:00 Test Item Value Reference Range Interpretation Comments POC-GLUCOSE METER 141 mg/dL 70-[address] [facility] 6720 [facility] (test code = MARIA ESTHER Cash [facility] 1538) [address] POCT-GLUCOSE [id number] 07:48:00 Test Item Value Reference Range Interpretation Comments POC-GLUCOSE METER 141 mg/dL 70-[address] [facility] 6720 (BEAKER) (test code = MARIA ESTHER [place] 1534) [address] BASIC METABOLIC [id number] 04:55:00 Test Item Value Reference Range Interpretation Comments SODIUM (BEAKER) 137 meq/L 136-145 (test code = 381) POTASSIUM (BEAKER) 4.5 meq/L 3.5-5.1 (test code = 379) CHLORIDE (BEAKER) 107 meq/L 98-107 (test code = 382) CO2 (BEAKER) (test 21 meq/L 22-29 L code = 355) BLOOD UREA NITROGEN 47 mg/dL 7-21 H (BEAKER) (test code = 354) CREATININE (BEAKER) 1.32 mg/dL 0.57-1.25 H (test code = 358) GLUCOSE RANDOM 111 mg/dL 70-105 H (BEAKER) (test code = 652) CALCIUM (BEAKER) 8.2 mg/dL 8.4-10.2 L (test code = 697) EGFR (BEAKER) (test 53 mL/min/1.73 ESTIMA RENUKA GFR IS code = 1092) sq m NOT ACCURATE CREATININE CLEARANCE IN PREDICTING GLOMERULAR FILTRATION RATE . ESTIMATED GFR I S NOT APPLICABLE FOR DIALYSIS PATIEN TS. CBC W/PLT COUNT & AUTO [id number] 04:44:00 Test Item Value Reference Range Interpretation Comments WHITE BLOOD CELL COUNT (BEAKER) 9.4 K/ L 3.5-10.5 (test code = 775) RED BLOOD CELL COUNT (BEAKER) 3.36 M/ L 4.63-6.08 L (test code = 761) HEMOGLOBIN (BEAKER) (test code = 9.2 GM/DL 13.7-17.5 L 410) HEMATOCRIT (BEAKER) (test code = 31.4 % 40.1-51.0 L 411) MEAN CORPUSCULAR VOLUME (BEAKER) 93.5 fL 79.0-92.2 H (test code = 753) MEAN CORPUSCULAR HEMOGLOBIN 27.4 pg 25.7-32.2 (BEAKER) (test code = 751) MEAN CORPUSCULAR HEMOGLOBIN CONC 29.3 GM/DL 32.3-36.5 L (BEAKER) (test code = 752) RED CELL DISTRIBUTION WIDTH 19.6 % 11.6-14.4 H (BEAKER) (test code = 412) PLATELET COUNT (BEAKER) (test 432 K/CU MM 150-450 code = 756) MEAN PLATELET VOLUME (BEAKER) 10.0 fL 9.4-12.4 (test code = 754) NUCLEATED RED BLOOD CELLS 0 /100 WBC 0-0 (BEAKER) (test code = 413) NEUTROPHILS RELATIVE PERCENT 69 % (BEAKER) (test code = 429) LYMPHOCYTES RELATIVE PERCENT 18 % (BEAKER) (test code = 430) MONOCYTES RELATIVE PERCENT 8 % (BEAKER) (test code = 431) EOSINOPHILS RELATIVE PERCENT 3 % (BEAKER) (test code = 432) BASOPHILS RELATIVE PERCENT 1 % (BEAKER) (test code = 437) NEUTROPHILS ABSOLUTE COUNT 6.48 K/ L 1.78-5.38 H (BEAKER) (test code = 670) LYMPHOCYTES ABSOLUTE COUNT 1.68 K/ L 1.32-3.57 (BEAKER) (test code = 414) MONOCYTES ABSOLUTE COUNT (BEAKER) 0.76 K/ L 0.30-0.82 (test code = 415) EOSINOPHILS ABSOLUTE COUNT 0.29 K/ L 0.04-0.54 (BEAKER) (test code = 416) BASOPHILS ABSOLUTE COUNT (BEAKER) 0.07 K/ L 0.01-0.08 (test code = 417) IMMATURE GRANULOCYTES-RELATIVE 1 % 0-1 PERCENT (BEAKER) (test code = 2801) POCT-GLUCOSE [id number] 21:14:00 Test Item Value Reference Range Interpretation Comments POC-GLUCOSE METER 151 mg/dL 70-110 H TESTED AT [place] [address] ([facility] (test code = MARIA ESTHER [place] 1538) [address] POCT-GLUCOSE [id number] 17:35:00 Test Item Value Reference Range Interpretation Comments POC-GLUCOSE METER 111 mg/dL 70-110 H TESTED AT [place] [address] ([facility] (test code = MARIA ESTHER [place] 1538) [address] POCT-GLUCOSE [id number] 13:31:00 Test Item Value Reference Range Interpretation Comments POC-GLUCOSE METER 141 mg/dL 70-110 H TESTED AT [place] [address] ([facility]) (test code = MARIA ESTHER [place] 1538) [address] POCT-GLUCOSE [id number] 08:31:00 Test Item Value Reference Range Interpretation Comments POC-GLUCOSE METER 112 mg/dL 70-[address] [facility] 6720 (BEAKER) (test code = MARIA ESTHER [place] 1538) [address] BASIC METABOLIC [id number] 06:01:00 Test Item Value Reference Range Interpretation Comments SODIUM (BEAKER) 138 meq/L 136-145 (test code = 381) POTASSIUM (BEAKER) 4.6 meq/L 3.5-5.1 (test code = 379) CHLORIDE (BEAKER) 109 meq/L 98-107 H (test code = 382) CO2 (BEAKER) (test 21 meq/L 22-29 L code = 355) BLOOD UREA NITROGEN 41 mg/dL 7-21 H (BEAKER) (test code = 354) CREATININE (BEAKER) 1.35 mg/dL 0.57-1.25 H (test code = 358) GLUCOSE RANDOM 111 mg/dL 70-105 H (BEAKER) (test code = 652) CALCIUM (BEAKER) 8.3 mg/dL 8.4-10.2 L (test code = 697) EGFR (BEAKER) (test 52 mL/min/1.73 ESTIMA RENUKA GFR IS code = 1092) sq m NOT ACCURATE CREATININE CLEARANCE IN PREDICTING GLOMERULAR FILTRATION RATE . ESTIMATED GFR I S NOT APPLICABLE FOR DIALYSIS PATIEN TS. CBC W/PLT COUNT & AUTO [id number] 05:43:00 Test Item Value Reference Range Interpretation Comments WHITE BLOOD CELL COUNT (BEAKER) 8.9 K/ L 3.5-10.5 (test code = 775) RED BLOOD CELL COUNT (BEAKER) 3.42 M/ L 4.63-6.08 L (test code = 761) HEMOGLOBIN (BEAKER) (test code = 9.4 GM/DL 13.7-17.5 L 410) HEMATOCRIT (BEAKER) (test code = 33.0 % 40.1-51.0 L 411) MEAN CORPUSCULAR VOLUME (BEAKER) 96.5 fL 79.0-92.2 H (test code = 753) MEAN CORPUSCULAR HEMOGLOBIN 27.5 pg 25.7-32.2 (BEAKER) (test code = 751) MEAN CORPUSCULAR HEMOGLOBIN CONC 28.5 GM/DL 32.3-36.5 L (BEAKER) (test code = 752) RED CELL DISTRIBUTION WIDTH 19.4 % 11.6-14.4 H (BEAKER) (test code = 412) PLATELET COUNT (BEAKER) (test 420 K/CU MM 150-450 code = 756) MEAN PLATELET VOLUME (BEAKER) 10.0 fL 9.4-12.4 (test code = 754) NUCLEATED RED BLOOD CELLS 0 /100 WBC 0-0 (BEAKER) (test code = 413) NEUTROPHILS RELATIVE PERCENT 69 % (BEAKER) (test code = 429) LYMPHOCYTES RELATIVE PERCENT 18 % (BEAKER) (test code = 430) MONOCYTES RELATIVE PERCENT 9 % (BEAKER) (test code = 431) EOSINOPHILS RELATIVE PERCENT 3 % (BEAKER) (test code = 432) BASOPHILS RELATIVE PERCENT 1 % (BEAKER) (test code = 437) NEUTROPHILS ABSOLUTE COUNT 6.09 K/ L 1.78-5.38 H (BEAKER) (test code = 670) LYMPHOCYTES ABSOLUTE COUNT 1.57 K/ L 1.32-3.57 (BEAKER) (test code = 414) MONOCYTES ABSOLUTE COUNT (BEAKER) 0.77 K/ L 0.30-0.82 (test code = 415) EOSINOPHILS ABSOLUTE COUNT 0.26 K/ L 0.04-0.54 (BEAKER) (test code = 416) BASOPHILS ABSOLUTE COUNT (BEAKER) 0.07 K/ L 0.01-0.08 (test code = 417) IMMATURE GRANULOCYTES-RELATIVE 1 % 0-1 PERCENT (BEAKER) (test code = 2801) POCT-GLUCOSE [id number] 22:00:00 Test Item Value Reference Range Interpretation Comments POC-GLUCOSE METER 126 mg/dL 70-[address] [facility] [address] [facility] (test code = [place] ESTHER [place] 1538) [id number] POCT-GLUCOSE [id number] 17:08:00 Test Item Value Reference Range Interpretation Comments POC-GLUCOSE METER 179 mg/dL 70-[address] [facility] 67[address] (BEAKER) (test code = MARIA ESTHER [place] 1538) [id number] POCT-GLUCOSE [id number] 12:10:00 Test Item Value Reference Range Interpretation Comments POC-GLUCOSE METER 128 mg/dL 70-[address] [facility] 67[address] (BEAKER) (test code = MARIA ESTHER Cash [place] 1538) [id number] POCT-GLUCOSE [id number] 07:38:00 Test Item Value Reference Range Interpretation Comments POC-GLUCOSE METER 127 mg/dL 70-[address] [facility] 67[address] (BEAKER) (test code = MARIA ESTHER [place] 1538) [id number] BASIC METABOLIC [id number] 04:23:00 Test Item Value Reference Range Interpretation Comments SODIUM (BEAKER) 137 meq/L 136-145 (test code = 381) POTASSIUM (BEAKER) 4.4 meq/L 3.5-5.1 (test code = 379) CHLORIDE (BEAKER) 106 meq/L 98-107 (test code = 382) CO2 (BEAKER) (test 22 meq/L 22-29 code = 355) BLOOD UREA NITROGEN 39 mg/dL 7-21 H (BEAKER) (test code = 354) CREATININE (BEAKER) 1.45 mg/dL 0.57-1.25 H (test code = 358) GLUCOSE RANDOM 122 mg/dL 70-105 H (BEAKER) (test code = 652) CALCIUM (BEAKER) 8.2 mg/dL 8.4-10.2 L (test code = 697) EGFR (BEAKER) (test 48 mL/min/1.73 ESTIMA RENUKA GFR IS code = 1092) sq m NOT ACCURATE CREATININE CLEARANCE IN PREDICTING GLOMERULAR FILTRATION RATE . ESTIMATED GFR I S NOT APPLICABLE FOR DIALYSIS PATIEN TS. CBC W/PLT COUNT & AUTO [id number] 04:06:00 Test Item Value Reference Range Interpretation Comments WHITE BLOOD CELL COUNT (BEAKER) 10.4 K/ L 3.5-10.5 (test code = 775) RED BLOOD CELL COUNT (BEAKER) 3.33 M/ L 4.63-6.08 L (test code = 761) HEMOGLOBIN (BEAKER) (test code = 9.3 GM/DL 13.7-17.5 L 410) HEMATOCRIT (BEAKER) (test code = 31.3 % 40.1-51.0 L 411) MEAN CORPUSCULAR VOLUME (BEAKER) 94.0 fL 79.0-92.2 H (test code = 753) MEAN CORPUSCULAR HEMOGLOBIN 27.9 pg 25.7-32.2 (BEAKER) (test code = 751) MEAN CORPUSCULAR HEMOGLOBIN CONC 29.7 GM/DL 32.3-36.5 L (BEAKER) (test code = 752) RED CELL DISTRIBUTION WIDTH 19.0 % 11.6-14.4 H (BEAKER) (test code = 412) PLATELET COUNT (BEAKER) (test 427 K/CU MM 150-450 code = 756) MEAN PLATELET VOLUME (BEAKER) 9.4 fL 9.4-12.4 (test code = 754) NUCLEATED RED BLOOD CELLS 0 /100 WBC 0-0 (BEAKER) (test code = 413) NEUTROPHILS RELATIVE PERCENT 72 % (BEAKER) (test code = 429) LYMPHOCYTES RELATIVE PERCENT 15 % (BEAKER) (test code = 430) MONOCYTES RELATIVE PERCENT 10 % (BEAKER) (test code = 431) EOSINOPHILS RELATIVE PERCENT 2 % (BEAKER) (test code = 432) BASOPHILS RELATIVE PERCENT 1 % (BEAKER) (test code = 437) NEUTROPHILS ABSOLUTE COUNT 7.44 K/ L 1.78-5.38 H (BEAKER) (test code = 670) LYMPHOCYTES ABSOLUTE COUNT 1.55 K/ L 1.32-3.57 (BEAKER) (test code = 414) MONOCYTES ABSOLUTE COUNT (BEAKER) 0.99 K/ L 0.30-0.82 H (test code = 415) EOSINOPHILS ABSOLUTE COUNT 0.24 K/ L 0.04-0.54 (BEAKER) (test code = 416) BASOPHILS ABSOLUTE COUNT (BEAKER) 0.05 K/ L 0.01-0.08 (test code = 417) IMMATURE GRANULOCYTES-RELATIVE 1 % 0-1 PERCENT (BEAKER) (test code = 2801) POCT-GLUCOSE [id number] 21:40:00 Test Item Value Reference Range Interpretation Comments POC-GLUCOSE METER 139 mg/dL 70-[address] [facility] 6720 [facility] (test code = [facility] 1538) [id number] POCT-GLUCOSE [id number] 17:42:00 Test Item Value Reference Range Interpretation Comments POC-GLUCOSE METER 131 mg/dL 70-[address] [facility] 6720 (BEAKER) (test code = [facility] Shreya [facility] 1538) [address] POCT-GLUCOSE [id number] 11:35:00 Test Item Value Reference Range Interpretation Comments POC-GLUCOSE METER 141 mg/dL 70-[address] [facility] 6720 (BEAKER) (test code = MARIA ESTHER Cash [place] 1538) [id number] POCT-GLUCOSE [id number] 08:03:00 Test Item Value Reference Range Interpretation Comments POC-GLUCOSE METER 125 mg/dL 70-[address] [facility] 6720 (BEAKER) (test code = MARIA ESTHER Cash [place] 1538) [id number] BASIC METABOLIC [id number] 05:36:00 Test Item Value Reference Range Interpretation Comments SODIUM (BEAKER) 138 meq/L 136-145 (test code = 381) POTASSIUM (BEAKER) 4.5 meq/L 3.5-5.1 (test code = 379) CHLORIDE (BEAKER) 106 meq/L 98-107 (test code = 382) CO2 (BEAKER) (test 23 meq/L 22-29 code = 355) BLOOD UREA NITROGEN 41 mg/dL 7-21 H (BEAKER) (test code = 354) CREATININE (BEAKER) 1.55 mg/dL 0.57-1.25 H (test code = 358) GLUCOSE RANDOM 115 mg/dL 70-105 H (BEAKER) (test code = 652) CALCIUM (BEAKER) 8.5 mg/dL 8.4-10.2 (test code = 697) EGFR (BEAKER) (test 44 mL/min/1.73 ESTIMA RENUKA GFR IS code = 1092) sq m NOT ACCURATE CREATININE CLEARANCE IN PREDICTING GLOMERULAR FILTRATION RATE . ESTIMATED GFR I S NOT APPLICABLE FOR DIALYSIS PATIEN TS. CBC W/PLT COUNT & AUTO [id number] 03:42:00 Test Item Value Reference Range Interpretation Comments WHITE BLOOD CELL COUNT (BEAKER) 10.2 K/ L 3.5-10.5 (test code = 775) RED BLOOD CELL COUNT (BEAKER) 3.57 M/ L 4.63-6.08 L (test code = 761) HEMOGLOBIN (BEAKER) (test code = 10.0 GM/DL 13.7-17.5 L 410) HEMATOCRIT (BEAKER) (test code = 33.2 % 40.1-51.0 L 411) MEAN CORPUSCULAR VOLUME (BEAKER) 93.0 fL 79.0-92.2 H (test code = 753) MEAN CORPUSCULAR HEMOGLOBIN 28.0 pg 25.7-32.2 (BEAKER) (test code = 751) MEAN CORPUSCULAR HEMOGLOBIN CONC 30.1 GM/DL 32.3-36.5 L (BEAKER) (test code = 752) RED CELL DISTRIBUTION WIDTH 18.9 % 11.6-14.4 H (BEAKER) (test code = 412) PLATELET COUNT (BEAKER) (test 479 K/CU MM 150-450 H code = 756) MEAN PLATELET VOLUME (BEAKER) 10.2 fL 9.4-12.4 (test code = 754) NUCLEATED RED BLOOD CELLS 0 /100 WBC 0-0 (BEAKER) (test code = 413) NEUTROPHILS RELATIVE PERCENT 70 % (BEAKER) (test code = 429) LYMPHOCYTES RELATIVE PERCENT 17 % (BEAKER) (test code = 430) MONOCYTES RELATIVE PERCENT 8 % (BEAKER) (test code = 431) EOSINOPHILS RELATIVE PERCENT 3 % (BEAKER) (test code = 432) BASOPHILS RELATIVE PERCENT 1 % (BEAKER) (test code = 437) NEUTROPHILS ABSOLUTE COUNT 7.12 K/ L 1.78-5.38 H (BEAKER) (test code = 670) LYMPHOCYTES ABSOLUTE COUNT 1.74 K/ L 1.32-3.57 (BEAKER) (test code = 414) MONOCYTES ABSOLUTE COUNT (BEAKER) 0.82 K/ L 0.30-0.82 (test code = 415) EOSINOPHILS ABSOLUTE COUNT 0.30 K/ L 0.04-0.54 (BEAKER) (test code = 416) BASOPHILS ABSOLUTE COUNT (BEAKER) 0.08 K/ L 0.01-0.08 (test code = 417) IMMATURE GRANULOCYTES-RELATIVE 1 % 0-1 PERCENT (BEAKER) (test code = 2801) POCT-GLUCOSE [id number] 21:24:00 Test Item Value Reference Range Interpretation Comments POC-GLUCOSE METER 137 mg/dL 70-[address] [facility] 6720 (BEAKER) (test code = MARIA ESTHER [place] 1538) [id number] POCT-GLUCOSE [id number] 17:12:00 Test Item Value Reference Range Interpretation Comments POC-GLUCOSE METER 152 mg/dL 70-[address] [facility] 67 (BEAKER) (test code = MARIA ESTHER Cash [place] 1538) [address] POCT-GLUCOSE [id number] 11:57:00 Test Item Value Reference Range Interpretation Comments POC-GLUCOSE METER 151 mg/dL 70-[address] [facility] 6720 (BEAKER) (test code = MARIA ESTHER Cash [place] 1538) [address] BASIC METABOLIC [id number] 07:24:00 Test Item Value Reference Range Interpretation Comments SODIUM (BEAKER) 136 meq/L 136-145 (test code = 381) POTASSIUM (BEAKER) 4.8 meq/L 3.5-5.1 Specimen slightly (test code = 379) hemolyzed CHLORIDE (BEAKER) 105 meq/L 98-107 (test code = 382) CO2 (BEAKER) (test 20 meq/L 22-29 L code = 355) BLOOD UREA NITROGEN 44 mg/dL 7-21 H (BEAKER) (test code = 354) CREATININE (BEAKER) 1.65 mg/dL 0.57-1.25 H Specimen slightly (test code = 358) hemolyzed GLUCOSE RANDOM 105 mg/dL 70-105 (BEAKER) (test code = 652) CALCIUM (BEAKER) 8.7 mg/dL 8.4-10.2 (test code = 697) EGFR (BEAKER) (test 41 mL/min/1.73 ESTIMA RENUKA GFR IS code = 1092) sq m NOT ACCURATE CREATININE CLEARANCE IN PREDICTING GLOMERULAR FILTRATION RATE . ESTIMATED GFR I S NOT APPLICABLE FOR DIALYSIS PATIEN TS. POCT-GLUCOSE [id number] 06:53:00 Test Item Value Reference Range Interpretation Comments POC-GLUCOSE METER 184 mg/dL 70-110 H TESTED AT [place] [address] (BEAKER) ([facility] = [facility] 1538) [address] CBC W/PLT COUNT & AUTO [id number] 06:01:00 Test Item Value Reference Range Interpretation Comments WHITE BLOOD CELL COUNT (BEAKER) 9.2 K/ L 3.5-10.5 (test code = 775) RED BLOOD CELL COUNT (BEAKER) 3.58 M/ L 4.63-6.08 L (test code = 761) HEMOGLOBIN (BEAKER) (test code = 9.8 GM/DL 13.7-17.5 L 410) HEMATOCRIT (BEAKER) (test code = 33.5 % 40.1-51.0 L 411) MEAN CORPUSCULAR VOLUME (BEAKER) 93.6 fL 79.0-92.2 H (test code = 753) MEAN CORPUSCULAR HEMOGLOBIN 27.4 pg 25.7-32.2 (BEAKER) (test code = 751) MEAN CORPUSCULAR HEMOGLOBIN CONC 29.3 GM/DL 32.3-36.5 L (BEAKER) (test code = 752) RED CELL DISTRIBUTION WIDTH 18.6 % 11.6-14.4 H (BEAKER) (test code = 412) PLATELET COUNT (BEAKER) (test 466 K/CU MM 150-450 H code = 756) MEAN PLATELET VOLUME (BEAKER) 10.2 fL 9.4-12.4 (test code = 754) NUCLEATED RED BLOOD CELLS 0 /100 WBC 0-0 (BEAKER) (test code = 413) NEUTROPHILS RELATIVE PERCENT 71 % (BEAKER) (test code = 429) LYMPHOCYTES RELATIVE PERCENT 16 % (BEAKER) (test code = 430) MONOCYTES RELATIVE PERCENT 9 % (BEAKER) (test code = 431) EOSINOPHILS RELATIVE PERCENT 2 % (BEAKER) (test code = 432) BASOPHILS RELATIVE PERCENT 1 % (BEAKER) (test code = 437) NEUTROPHILS ABSOLUTE COUNT 6.47 K/ L 1.78-5.38 H (BEAKER) (test code = 670) LYMPHOCYTES ABSOLUTE COUNT 1.46 K/ L 1.32-3.57 (BEAKER) (test code = 414) MONOCYTES ABSOLUTE COUNT (BEAKER) 0.85 K/ L 0.30-0.82 H (test code = 415) EOSINOPHILS ABSOLUTE COUNT 0.22 K/ L 0.04-0.54 (BEAKER) (test code = 416) BASOPHILS ABSOLUTE COUNT (BEAKER) 0.08 K/ L 0.01-0.08 (test code = 417) IMMATURE GRANULOCYTES-RELATIVE 1 % 0-1 PERCENT (BEAKER) (test code = 2801) POCT-GLUCOSE [id number] 21:15:00 Test Item Value Reference Range Interpretation Comments POC-GLUCOSE METER 133 mg/dL 70-[address] [facility] 6720 (BEAKER) (test code = [facility] ESTHER [place] 1538) [address] POCT-GLUCOSE [id number] 17:01:00 Test Item Value Reference Range Interpretation Comments POC-GLUCOSE METER 136 mg/dL 70-[address] [facility] 6720 [facility] (test code = MARIA ESTHER Cash [facility] 1538) [address] POCT-GLUCOSE [id number] 12:12:00 Test Item Value Reference Range Interpretation Comments POC-GLUCOSE METER 158 mg/dL 70-110 H TESTED AT [place] [address] ([facility] (test code = MARIA ESTHER Cash [facility] 1538) [address] POCT-GLUCOSE [id number] 07:35:00 Test Item Value Reference Range Interpretation Comments POC-GLUCOSE METER 132 mg/dL 70-110 H TESTED AT [place] [address] ([facility]) (test code = MARIA ESTHER Cash [facility] 1538) [address] BASIC METABOLIC [id number] 05:58:00 Test Item Value Reference Range Interpretation Comments SODIUM (BEAKER) 135 meq/L 136-145 L (test code = 381) POTASSIUM (BEAKER) 4.1 meq/L 3.5-5.1 (test code = 379) CHLORIDE (BEAKER) 104 meq/L 98-107 (test code = 382) CO2 (BEAKER) (test 22 meq/L 22-29 code = 355) BLOOD UREA NITROGEN 41 mg/dL 7-21 H (BEAKER) (test code = 354) CREATININE (BEAKER) 1.60 mg/dL 0.57-1.25 H (test code = 358) GLUCOSE RANDOM 119 mg/dL 70-105 H (BEAKER) (test code = 652) CALCIUM (BEAKER) 8.3 mg/dL 8.4-10.2 L (test code = 697) EGFR (BEAKER) (test 42 mL/min/1.73 ESTIMA RENUKA GFR IS code = 1092) sq m NOT ACCURATE CREATININE CLEARANCE IN PREDICTING GLOMERULAR FILTRATION RATE . ESTIMATED GFR I S NOT APPLICABLE FOR DIALYSIS PATIEN TS. CBC W/PLT COUNT & AUTO [id number] 05:13:00 Test Item Value Reference Range Interpretation Comments WHITE BLOOD CELL COUNT (BEAKER) 9.2 K/ L 3.5-10.5 (test code = 775) RED BLOOD CELL COUNT (BEAKER) 3.50 M/ L 4.63-6.08 L (test code = 761) HEMOGLOBIN (BEAKER) (test code = 9.6 GM/DL 13.7-17.5 L 410) HEMATOCRIT (BEAKER) (test code = 32.3 % 40.1-51.0 L 411) MEAN CORPUSCULAR VOLUME (BEAKER) 92.3 fL 79.0-92.2 H (test code = 753) MEAN CORPUSCULAR HEMOGLOBIN 27.4 pg 25.7-32.2 (BEAKER) (test code = 751) MEAN CORPUSCULAR HEMOGLOBIN CONC 29.7 GM/DL 32.3-36.5 L (BEAKER) (test code = 752) RED CELL DISTRIBUTION WIDTH 18.5 % 11.6-14.4 H (BEAKER) (test code = 412) PLATELET COUNT (BEAKER) (test 447 K/CU MM 150-450 code = 756) MEAN PLATELET VOLUME (BEAKER) 10.0 fL 9.4-12.4 (test code = 754) NUCLEATED RED BLOOD CELLS 0 /100 WBC 0-0 (BEAKER) (test code = 413) NEUTROPHILS RELATIVE PERCENT 72 % (BEAKER) (test code = 429) LYMPHOCYTES RELATIVE PERCENT 14 % (BEAKER) (test code = 430) MONOCYTES RELATIVE PERCENT 10 % (BEAKER) (test code = 431) EOSINOPHILS RELATIVE PERCENT 3 % (BEAKER) (test code = 432) BASOPHILS RELATIVE PERCENT 1 % (BEAKER) (test code = 437) NEUTROPHILS ABSOLUTE COUNT 6.64 K/ L 1.78-5.38 H (BEAKER) (test code = 670) LYMPHOCYTES ABSOLUTE COUNT 1.31 K/ L 1.32-3.57 L (BEAKER) (test code = 414) MONOCYTES ABSOLUTE COUNT (BEAKER) 0.88 K/ L 0.30-0.82 H (test code = 415) EOSINOPHILS ABSOLUTE COUNT 0.26 K/ L 0.04-0.54 (BEAKER) (test code = 416) BASOPHILS ABSOLUTE COUNT (BEAKER) 0.05 K/ L 0.01-0.08 (test code = 417) IMMATURE GRANULOCYTES-RELATIVE 1 % 0-1 PERCENT (BEAKER) (test code = 2801) POCT-GLUCOSE [id number] 21:04:00 Test Item Value Reference Range Interpretation Comments POC-GLUCOSE METER 146 mg/dL 70-110 H TESTED AT [place] [address] (BEAKER) (test code = MARIA ESTHER Cash [facility] 1538) [address] POCT-GLUCOSE [id number] 17:46:00 Test Item Value Reference Range Interpretation Comments POC-GLUCOSE METER 131 mg/dL 70-110 H TESTED AT [place] [address] (BEAKER) (test code = MARIA ESTHER Cash [facility] 1538) [id number] POCT-GLUCOSE [id number] 12:39:00 Test Item Value Reference Range Interpretation Comments POC-GLUCOSE METER 148 mg/dL 70-110 H TESTED AT [place] [address] (BEAKER) (test code = MARGARET[facility] Shreya [facility] 1538) [address] POCT-GLUCOSE [id number] 07:56:00 Test Item Value Reference Range Interpretation Comments POC-GLUCOSE METER 128 mg/dL 70-110 H TESTED AT [place] [address] (BEAKER) (test code = MARGARETUT Shreya [facility] 1538) [address] BASIC METABOLIC [id number] 05:23:00 Test Item Value Reference Range Interpretation Comments SODIUM (BEAKER) 136 meq/L 136-145 (test code = 381) POTASSIUM (BEAKER) 4.1 meq/L 3.5-5.1 (test code = 379) CHLORIDE (BEAKER) 104 meq/L 98-107 (test code = 382) CO2 (BEAKER) (test 22 meq/L 22-29 code = 355) BLOOD UREA NITROGEN 38 mg/dL 7-21 H (BEAKER) (test code = 354) CREATININE (BEAKER) 1.66 mg/dL 0.57-1.25 H (test code = 358) GLUCOSE RANDOM 114 mg/dL 70-105 H (BEAKER) (test code = 652) CALCIUM (BEAKER) 8.3 mg/dL 8.4-10.2 L (test code = 697) EGFR (BEAKER) (test 41 mL/min/1.73 ESTIMA RENUKA GFR IS code = 1092) sq m NOT ACCURATE CREATININE CLEARANCE IN PREDICTING GLOMERULAR FILTRATION RATE . ESTIMATED GFR I S NOT APPLICABLE FOR DIALYSIS PATIEN TS. CBC W/PLT COUNT & AUTO [id number] 05:05:00 Test Item Value Reference Range Interpretation Comments WHITE BLOOD CELL COUNT (BEAKER) 9.7 K/ L 3.5-10.5 (test code = 775) RED BLOOD CELL COUNT (BEAKER) 3.44 M/ L 4.63-6.08 L (test code = 761) HEMOGLOBIN (BEAKER) (test code = 9.6 GM/DL 13.7-17.5 L 410) HEMATOCRIT (BEAKER) (test code = 32.2 % 40.1-51.0 L 411) MEAN CORPUSCULAR VOLUME (BEAKER) 93.6 fL 79.0-92.2 H (test code = 753) MEAN CORPUSCULAR HEMOGLOBIN 27.9 pg 25.7-32.2 (BEAKER) (test code = 751) MEAN CORPUSCULAR HEMOGLOBIN CONC 29.8 GM/DL 32.3-36.5 L (BEAKER) (test code = 752) RED CELL DISTRIBUTION WIDTH 18.3 % 11.6-14.4 H (BEAKER) (test code = 412) PLATELET COUNT (BEAKER) (test 429 K/CU MM 150-450 code = 756) MEAN PLATELET VOLUME (BEAKER) 9.9 fL 9.4-12.4 (test code = 754) NUCLEATED RED BLOOD CELLS 0 /100 WBC 0-0 (BEAKER) (test code = 413) NEUTROPHILS RELATIVE PERCENT 73 % (BEAKER) (test code = 429) LYMPHOCYTES RELATIVE PERCENT 14 % (BEAKER) (test code = 430) MONOCYTES RELATIVE PERCENT 10 % (BEAKER) (test code = 431) EOSINOPHILS RELATIVE PERCENT 3 % (BEAKER) (test code = 432) BASOPHILS RELATIVE PERCENT 1 % (BEAKER) (test code = 437) NEUTROPHILS ABSOLUTE COUNT 7.02 K/ L 1.78-5.38 H (BEAKER) (test code = 670) LYMPHOCYTES ABSOLUTE COUNT 1.33 K/ L 1.32-3.57 (BEAKER) (test code = 414) MONOCYTES ABSOLUTE COUNT (BEAKER) 0.92 K/ L 0.30-0.82 H (test code = 415) EOSINOPHILS ABSOLUTE COUNT 0.25 K/ L 0.04-0.54 (BEAKER) (test code = 416) BASOPHILS ABSOLUTE COUNT (BEAKER) 0.06 K/ L 0.01-0.08 (test code = 417) IMMATURE GRANULOCYTES-RELATIVE 1 % 0-1 PERCENT (BEAKER) (test code = 2801) POCT-GLUCOSE [id number] 21:28:00 Test Item Value Reference Range Interpretation Comments POC-GLUCOSE METER 125 mg/dL 70-[address] [facility] 6720 [facility] (test code = [facility] 1538) [id number] POCT-GLUCOSE [id number] 19:02:00 Test Item Value Reference Range Interpretation Comments POC-GLUCOSE METER 129 mg/dL 70-110 H TESTED AT [place] [address] ([facility]) (test code = [facility] 1538) [id number] POCT-GLUCOSE [id number] 14:06:00 Test Item Value Reference Range Interpretation Comments POC-GLUCOSE METER 162 mg/dL 70-110 H TESTED AT [place] [address] ([facility] (test code = [facility] 1538) [address] POCT-GLUCOSE [id number] 08:16:00 Test Item Value Reference Range Interpretation Comments POC-GLUCOSE METER 140 mg/dL 70-110 H TESTED AT [place] [address] ([facility]) (test code = [facility] 1538) [address] BASIC METABOLIC [id number] 05:17:00 Test Item Value Reference Range Interpretation Comments SODIUM (BEAKER) 137 meq/L 136-145 (test code = 381) POTASSIUM (BEAKER) 3.8 meq/L 3.5-5.1 (test code = 379) CHLORIDE (BEAKER) 104 meq/L 98-107 (test code = 382) CO2 (BEAKER) (test 22 meq/L 22-29 code = 355) BLOOD UREA NITROGEN 37 mg/dL 7-21 H (BEAKER) (test code = 354) CREATININE (BEAKER) 1.81 mg/dL 0.57-1.25 H (test code = 358) GLUCOSE RANDOM 118 mg/dL 70-105 H (BEAKER) (test code = 652) CALCIUM (BEAKER) 8.5 mg/dL 8.4-10.2 (test code = 697) EGFR (BEAKER) (test 37 mL/min/1.73 ESTIMA RENUKA GFR IS code = 1092) sq m NOT ACCURATE CREATININE CLEARANCE IN PREDICTING GLOMERULAR FILTRATION RATE . ESTIMATED GFR I S NOT APPLICABLE FOR DIALYSIS PATIEN TS. CBC W/PLT COUNT & AUTO [id number] 04:55:00 Test Item Value Reference Range Interpretation Comments WHITE BLOOD CELL COUNT (BEAKER) 10.4 K/ L 3.5-10.5 (test code = 775) RED BLOOD CELL COUNT (BEAKER) 3.42 M/ L 4.63-6.08 L (test code = 761) HEMOGLOBIN (BEAKER) (test code = 9.6 GM/DL 13.7-17.5 L 410) HEMATOCRIT (BEAKER) (test code = 31.9 % 40.1-51.0 L 411) MEAN CORPUSCULAR VOLUME (BEAKER) 93.3 fL 79.0-92.2 H (test code = 753) MEAN CORPUSCULAR HEMOGLOBIN 28.1 pg 25.7-32.2 (BEAKER) (test code = 751) MEAN CORPUSCULAR HEMOGLOBIN CONC 30.1 GM/DL 32.3-36.5 L (BEAKER) (test code = 752) RED CELL DISTRIBUTION WIDTH 18.4 % 11.6-14.4 H (BEAKER) (test code = 412) PLATELET COUNT (BEAKER) (test 453 K/CU MM 150-450 H code = 756) MEAN PLATELET VOLUME (BEAKER) 10.0 fL 9.4-12.4 (test code = 754) NUCLEATED RED BLOOD CELLS 0 /100 WBC 0-0 (BEAKER) (test code = 413) NEUTROPHILS RELATIVE PERCENT 74 % (BEAKER) (test code = 429) LYMPHOCYTES RELATIVE PERCENT 13 % (BEAKER) (test code = 430) MONOCYTES RELATIVE PERCENT 9 % (BEAKER) (test code = 431) EOSINOPHILS RELATIVE PERCENT 3 % (BEAKER) (test code = 432) BASOPHILS RELATIVE PERCENT 0 % (BEAKER) (test code = 437) NEUTROPHILS ABSOLUTE COUNT 7.63 K/ L 1.78-5.38 H (BEAKER) (test code = 670) LYMPHOCYTES ABSOLUTE COUNT 1.35 K/ L 1.32-3.57 (BEAKER) (test code = 414) MONOCYTES ABSOLUTE COUNT (BEAKER) 0.97 K/ L 0.30-0.82 H (test code = 415) EOSINOPHILS ABSOLUTE COUNT 0.27 K/ L 0.04-0.54 (BEAKER) (test code = 416) BASOPHILS ABSOLUTE COUNT (BEAKER) 0.04 K/ L 0.01-0.08 (test code = 417) IMMATURE GRANULOCYTES-RELATIVE 1 % 0-1 PERCENT (BEAKER) (test code = 2801) POCT-GLUCOSE [id number] 22:33:00 Test Item Value Reference Range Interpretation Comments POC-GLUCOSE METER 165 mg/dL 70-[address] [facility] 67 [facility] (test code = MARIA ESTHER Cash [facility] 1538) [id number] POCT-GLUCOSE [id number] 16:58:00 Test Item Value Reference Range Interpretation Comments POC-GLUCOSE METER 126 mg/dL 70-110 H TESTED AT [place] [address] ([facility]) (test code = [facility] 1538) [id number] POCT-GLUCOSE [id number] 11:51:00 Test Item Value Reference Range Interpretation Comments POC-GLUCOSE METER 209 mg/dL 70-110 H TESTED AT [place] [address] ([facility]) (test code = [facility] 1538) [id number] POCT-GLUCOSE [id number] 08:03:00 Test Item Value Reference Range Interpretation Comments POC-GLUCOSE METER 150 mg/dL 70-110 H TESTED AT [place] [address] ([facility]) (test code = [facility] 1538) [id number] 07:03:00 Test Item Value Reference Range Interpretation Comments MAGNESIUM (BEAKER) 2.1 mg/dL 1.6-2.6 Specimen slightly (test code = 627) hemolyzed BASIC METABOLIC [id number] 07:03:00 Test Item Value Reference Range Interpretation Comments SODIUM (BEAKER) 135 meq/L 136-145 L (test code = 381) POTASSIUM (BEAKER) 4.2 meq/L 3.5-5.1 Specimen slightly (test code = 379) hemolyzed CHLORIDE (BEAKER) 101 meq/L 98-107 (test code = 382) CO2 (BEAKER) (test 24 meq/L 22-29 code = 355) BLOOD UREA NITROGEN 35 mg/dL 7-21 H (BEAKER) (test code = 354) CREATININE (BEAKER) 1.71 mg/dL 0.57-1.25 H Specimen slightly (test code = 358) hemolyzed GLUCOSE RANDOM 125 mg/dL 70-105 H (BEAKER) (test code = 652) CALCIUM (BEAKER) 8.4 mg/dL 8.4-10.2 (test code = 697) EGFR (BEAKER) (test 39 mL/min/1.73 ESTIMA RENUKA GFR IS code = 1092) sq m NOT ACCURATE CREATININE CLEARANCE IN PREDICTING GLOMERULAR FILTRATION RATE . ESTIMATED GFR I S NOT APPLICABLE FOR DIALYSIS PATIEN TS. CBC W/PLT COUNT & AUTO [id number] 06:22:00 Test Item Value Reference Range Interpretation Comments WHITE BLOOD CELL COUNT (BEAKER) 9.8 K/ L 3.5-10.5 (test code = 775) RED BLOOD CELL COUNT (BEAKER) 3.53 M/ L 4.63-6.08 L (test code = 761) HEMOGLOBIN (BEAKER) (test code = 9.6 GM/DL 13.7-17.5 L 410) HEMATOCRIT (BEAKER) (test code = 32.8 % 40.1-51.0 L 411) MEAN CORPUSCULAR VOLUME (BEAKER) 92.9 fL 79.0-92.2 H (test code = 753) MEAN CORPUSCULAR HEMOGLOBIN 27.2 pg 25.7-32.2 (BEAKER) (test code = 751) MEAN CORPUSCULAR HEMOGLOBIN CONC 29.3 GM/DL 32.3-36.5 L (BEAKER) (test code = 752) RED CELL DISTRIBUTION WIDTH 18.3 % 11.6-14.4 H (BEAKER) (test code = 412) PLATELET COUNT (BEAKER) (test 482 K/CU MM 150-450 H code = 756) MEAN PLATELET VOLUME (BEAKER) 9.9 fL 9.4-12.4 (test code = 754) NUCLEATED RED BLOOD CELLS 0 /100 WBC 0-0 (BEAKER) (test code = 413) NEUTROPHILS RELATIVE PERCENT 72 % (BEAKER) (test code = 429) LYMPHOCYTES RELATIVE PERCENT 13 % (BEAKER) (test code = 430) MONOCYTES RELATIVE PERCENT 10 % (BEAKER) (test code = 431) EOSINOPHILS RELATIVE PERCENT 3 % (BEAKER) (test code = 432) BASOPHILS RELATIVE PERCENT 1 % (BEAKER) (test code = 437) NEUTROPHILS ABSOLUTE COUNT 6.97 K/ L 1.78-5.38 H (BEAKER) (test code = 670) LYMPHOCYTES ABSOLUTE COUNT 1.31 K/ L 1.32-3.57 L (BEAKER) (test code = 414) MONOCYTES ABSOLUTE COUNT (BEAKER) 0.97 K/ L 0.30-0.82 H (test code = 415) EOSINOPHILS ABSOLUTE COUNT 0.31 K/ L 0.04-0.54 (BEAKER) (test code = 416) BASOPHILS ABSOLUTE COUNT (BEAKER) 0.06 K/ L 0.01-0.08 (test code = 417) IMMATURE GRANULOCYTES-RELATIVE 1 % 0-1 PERCENT (BEAKER) (test code = 2801) ANAEROBIC [id number] 03:41:00 Test Item Value Reference Range Interpretation Comments CULTURE (BEAKER) A <1+ Anaerob ic gram positive (test code = 1095) bacilliNo n-viable for identification ANAEROBIC [id number] 03:38:00 Test Item Value Reference Range Interpretation Comments CULTURE (BEAKER) (test A 2+ Ba cteroides fragilis code = 1095) group POCT-GLUCOSE [id number] 22:50:00 Test Item Value Reference Range Interpretation Comments POC-GLUCOSE METER 151 mg/dL 70-[address] [facility] (test code = [facility] 1538) [id number] POCT-GLUCOSE [id number] 17:47:00 Test Item Value Reference Range Interpretation Comments POC-GLUCOSE METER 165 mg/dL 70-110 H [facility] AT [place] [address] [facility] (test code = [facility] 1538) [id number] POCT-GLUCOSE [id number] 12:57:00 Test Item Value Reference Range Interpretation Comments POC-GLUCOSE METER 122 mg/dL 70-110 H [facility] AT [place] [address] [facility] (test code = [facility] 1538) [id number] POCT-GLUCOSE [id number] 09:14:00 Test Item Value Reference Range Interpretation Comments POC-GLUCOSE METER 164 mg/dL 70-110 H [facility] AT [place] [address] [facility] (test code = [facility] 1538) [id number] BASIC METABOLIC [id number] 04:07:00 Test Item Value Reference Range Interpretation Comments SODIUM (BEAKER) 135 meq/L 136-145 L (test code = 381) POTASSIUM (BEAKER) 3.7 meq/L 3.5-5.1 (test code = 379) CHLORIDE (BEAKER) 101 meq/L 98-107 (test code = 382) CO2 (BEAKER) (test 24 meq/L 22-29 code = 355) BLOOD UREA NITROGEN 36 mg/dL 7-21 H (BEAKER) (test code = 354) CREATININE (BEAKER) 1.68 mg/dL 0.57-1.25 H (test code = 358) GLUCOSE RANDOM 112 mg/dL 70-105 H (BEAKER) (test code = 652) CALCIUM (BEAKER) 8.2 mg/dL 8.4-10.2 L (test code = 697) EGFR (BEAKER) (test 40 mL/min/1.73 ESTIMA RENUKA GFR IS code = 1092) sq m NOT ACCURATE CREATININE CLEARANCE IN PREDICTING GLOMERULAR FILTRATION RATE . ESTIMATED GFR I S NOT APPLICABLE FOR DIALYSIS PATIEN TS. CBC W/PLT COUNT & AUTO [id number] 03:48:00 Test Item Value Reference Range Interpretation Comments WHITE BLOOD CELL COUNT (BEAKER) 10.4 K/ L 3.5-10.5 (test code = 775) RED BLOOD CELL COUNT (BEAKER) 3.37 M/ L 4.63-6.08 L (test code = 761) HEMOGLOBIN (BEAKER) (test code = 9.4 GM/DL 13.7-17.5 L 410) HEMATOCRIT (BEAKER) (test code = 31.1 % 40.1-51.0 L 411) MEAN CORPUSCULAR VOLUME (BEAKER) 92.3 fL 79.0-92.2 H (test code = 753) MEAN CORPUSCULAR HEMOGLOBIN 27.9 pg 25.7-32.2 (BEAKER) (test code = 751) MEAN CORPUSCULAR HEMOGLOBIN CONC 30.2 GM/DL 32.3-36.5 L (BEAKER) (test code = 752) RED CELL DISTRIBUTION WIDTH 17.9 % 11.6-14.4 H (BEAKER) (test code = 412) PLATELET COUNT (BEAKER) (test 461 K/CU MM 150-450 H code = 756) MEAN PLATELET VOLUME (BEAKER) 9.5 fL 9.4-12.4 (test code = 754) NUCLEATED RED BLOOD CELLS 0 /100 WBC 0-0 (BEAKER) (test code = 413) NEUTROPHILS RELATIVE PERCENT 72 % (BEAKER) (test code = 429) LYMPHOCYTES RELATIVE PERCENT 13 % (BEAKER) (test code = 430) MONOCYTES RELATIVE PERCENT 10 % (BEAKER) (test code = 431) EOSINOPHILS RELATIVE PERCENT 3 % (BEAKER) (test code = 432) BASOPHILS RELATIVE PERCENT 1 % (BEAKER) (test code = 437) NEUTROPHILS ABSOLUTE COUNT 7.51 K/ L 1.78-5.38 H (BEAKER) (test code = 670) LYMPHOCYTES ABSOLUTE COUNT 1.35 K/ L 1.32-3.57 (BEAKER) (test code = 414) MONOCYTES ABSOLUTE COUNT (BEAKER) 1.03 K/ L 0.30-0.82 H (test code = 415) EOSINOPHILS ABSOLUTE COUNT 0.32 K/ L 0.04-0.54 (BEAKER) (test code = 416) BASOPHILS ABSOLUTE COUNT (BEAKER) 0.05 K/ L 0.01-0.08 (test code = 417) IMMATURE GRANULOCYTES-RELATIVE 1 % 0-1 PERCENT (BEAKER) (test code = 2801) BLOOD [id number] 00:00:00 Test Item Value Reference Range Interpretation Comments CULTURE (BEAKER) (test No growth in 5 days code = 1095) BLOOD [id number] 00:00:00 Test Item Value Reference Range Interpretation Comments CULTURE (BEAKER) (test No growth in 5 days code = 1095) POCT-GLUCOSE [id number] 21:35:00 Test Item Value Reference Range Interpretation Comments POC-GLUCOSE METER 135 mg/dL 70-[address] [facility] 6720 (BEAKER) (test code = MARIA ESTHER [place] 1538) [address] POCT-GLUCOSE [id number] 17:27:00 Test Item Value Reference Range Interpretation Comments POC-GLUCOSE METER 192 mg/dL 70-[address] [facility] 6720 (BEAKER) (test code = [place] 1538) [address] POCT-GLUCOSE [id number] 12:19:00 Test Item Value Reference Range Interpretation Comments POC-GLUCOSE METER 200 mg/dL 70-[address] [facility] 6720 (BEAKER) (test code = [place] 1538) [address] RAD, CHEST, 1 VIEW, NON [id number] 11:22:00Reason for exam:->shortness of breathFINAL REPORT Comparison: 09/06/2017 TECHNIQUE: Single view of the chest FINDINGS: Scattered atelectasis and/or scarring. There may be small left pleural effusion with adjacent airspace disease. Cardiac silhouette is prominent. IMPRESSION:. No significant interval change. Signed: Emerson Gradyeport Verified Date/Time: 09/07/2017 11:22:01 Reading Location: [address] Transitional Reading Room CBC W/PLT COUNT & AUTO DIFFERENTIAL 2017-09-07 10:35:00 Test Item Value Reference Range Interpretation Comments WHITE BLOOD CELL COUNT (BEAKER) 12.5 K/ L 3.5-10.5 H (test code = 775) RED BLOOD CELL COUNT (BEAKER) 3.71 M/ L 4.63-6.08 L (test code = 761) HEMOGLOBIN (BEAKER) (test code = 10.5 GM/DL 13.7-17.5 L 410) HEMATOCRIT (BEAKER) (test code = 34.8 % 40.1-51.0 L 411) MEAN CORPUSCULAR VOLUME (BEAKER) 93.8 fL 79.0-92.2 H (test code = 753) MEAN CORPUSCULAR HEMOGLOBIN 28.3 pg 25.7-32.2 (BEAKER) (test code = 751) MEAN CORPUSCULAR HEMOGLOBIN CONC 30.2 GM/DL 32.3-36.5 L (BEAKER) (test code = 752) RED CELL DISTRIBUTION WIDTH 18.2 % 11.6-14.4 H (BEAKER) (test code = 412) PLATELET COUNT (BEAKER) (test 497 K/CU MM 150-450 H code = 756) MEAN PLATELET VOLUME (BEAKER) 9.6 fL 9.4-12.4 (test code = 754) NUCLEATED RED BLOOD CELLS 0 /100 WBC 0-0 (BEAKER) (test code = 413) NEUTROPHILS RELATIVE PERCENT 79 % (BEAKER) (test code = 429) LYMPHOCYTES RELATIVE PERCENT 9 % (BEAKER) (test code = 430) MONOCYTES RELATIVE PERCENT 7 % (BEAKER) (test code = 431) EOSINOPHILS RELATIVE PERCENT 2 % (BEAKER) (test code = 432) BASOPHILS RELATIVE PERCENT 0 % (BEAKER) (test code = 437) NEUTROPHILS ABSOLUTE COUNT 9.94 K/ L 1.78-5.38 H (BEAKER) (test code = 670) LYMPHOCYTES ABSOLUTE COUNT 1.16 K/ L 1.32-3.57 L (BEAKER) (test code = 414) MONOCYTES ABSOLUTE COUNT (BEAKER) 0.93 K/ L 0.30-0.82 H (test code = 415) EOSINOPHILS ABSOLUTE COUNT 0.26 K/ L 0.04-0.54 (BEAKER) (test code = 416) BASOPHILS ABSOLUTE COUNT (BEAKER) 0.05 K/ L 0.01-0.08 (test code = 417) IMMATURE GRANULOCYTES-RELATIVE 1 % 0-1 PERCENT (BEAKER) (test code = 2801) POCT-GLUCOSE [id number] 07:25:00 Test Item Value Reference Range Interpretation Comments POC-GLUCOSE METER 139 mg/dL 70-[address] [facility] 6720 (BEAKER) (test code = [place] 1538) [id number] 04:19:00 Test Item Value Reference Range Interpretation Comments MAGNESIUM (BEAKER) 2.0 mg/dL 1.6-2.6 Specimen slightly (test code = 627) hemolyzed [id number] 04:19:00 Test Item Value Reference Range Interpretation Comments PHOSPHORUS (BEAKER) 3.7 mg/dL 2.3-4.7 Specimen slightly (test code = 604) hemolyzed BASIC METABOLIC [id number] 04:19:00 Test Item Value Reference Range Interpretation Comments SODIUM (BEAKER) 134 meq/L 136-145 L (test code = 381) POTASSIUM (BEAKER) 4.5 meq/L 3.5-5.1 Specimen slightly (test code = 379) hemolyzed CHLORIDE (BEAKER) 102 meq/L 98-107 (test code = 382) CO2 (BEAKER) (test 16 meq/L 22-29 L code = 355) BLOOD UREA NITROGEN 40 mg/dL 7-21 H (BEAKER) (test code = 354) CREATININE (BEAKER) 1.94 mg/dL 0.57-1.25 H Specimen slightly (test code = 358) hemolyzed GLUCOSE RANDOM 107 mg/dL 70-105 H ([facility]) (test code = 652) CALCIUM ([facility]) 8.5 mg/dL 8.4-10.2 (test code = 697) EGFR ([facility]) (test 34 mL/min/1.73 ESTIMA RENUKA GFR IS code = 1092) sq m NOT ACCURATE CREATININE CLEARANCE IN PREDICTING GLOMERULAR FILTRATION RATE . ESTIMATED GFR I S NOT APPLICABLE FOR DIALYSIS PATIEN TS. POCT-GLUCOSE [id number] 21:41:00 Test Item Value Reference Range Interpretation Comments POC-GLUCOSE METER 148 mg/dL 70-[address] [facility] 67 ([facility]) (test code = MARIA ESTHER Cash [facility] 1538) [id number] VANCOMYCIN LEVEL, [id number] 13:28:00 Test Item Value Reference Range Interpretation Comments VANCOMYCIN RANDOM ([facility]) (test 19.2 ug/mL code = 523) Reference Range: No NormalsPOCT-GLUCOSE [id number] 12:59:00 Test Item Value Reference Range Interpretation Comments POC-GLUCOSE METER 129 mg/dL 70-110 H TESTED AT [place] [address] ([facility]) (test code = MARIA ESTHER Cash [facility] 1538) [address] RAD, CHEST, 1 VIEW, NON [id number] 08:26:00Reason for exam:->shortness of breathFINAL REPORT HISTORY : shortness of breath. Comparison: 09/05/2017 Comment: Single portable view of the chest was obtained. The cardiac silhouette size is enlarged. There is a tortuous/ectatic thoracic aorta. No pneumothorax is visualized. There may be small left-sided pleural ef fusion. There are findings of pulmonary venous congestion. Interstitial prominence may represent interstitial edema. There is some left basilar airspace disease/consolidation. Signed: Tiffanie Woods MDReport Verified Date/Time: 09/06/2017 08:26:23 Reading Location: [facility] Transitional Reading Room POCT-GLUCOSE [id number] 08:17:00 Test Item Value Reference Range Interpretation Comments POC-GLUCOSE METER 124 mg/dL 70-110 H TESTED AT [place] [address] (BEAKER) (test code = MAR[place] EST[place] 1538) [address] CBC W/PLT COUNT & AUTO [id number] 05:36:00 Test Item Value Reference Range Interpretation Comments WHITE BLOOD CELL COUNT (BEAKER) 10.3 K/ L 3.5-10.5 (test code = 775) RED BLOOD CELL COUNT (BEAKER) 3.41 M/ L 4.63-6.08 L (test code = 761) HEMOGLOBIN (BEAKER) (test code = 9.4 GM/DL 13.7-17.5 L 410) HEMATOCRIT (BEAKER) (test code = 31.5 % 40.1-51.0 L 411) MEAN CORPUSCULAR VOLUME (BEAKER) 92.4 fL 79.0-92.2 H (test code = 753) MEAN CORPUSCULAR HEMOGLOBIN 27.6 pg 25.7-32.2 (BEAKER) (test code = 751) MEAN CORPUSCULAR HEMOGLOBIN CONC 29.8 GM/DL 32.3-36.5 L (BEAKER) (test code = 752) RED CELL DISTRIBUTION WIDTH 18.5 % 11.6-14.4 H (BEAKER) (test code = 412) PLATELET COUNT (BEAKER) (test 511 K/CU MM 150-450 H code = 756) MEAN PLATELET VOLUME (BEAKER) 9.9 fL 9.4-12.4 (test code = 754) NUCLEATED RED BLOOD CELLS 0 /100 WBC 0-0 (BEAKER) (test code = 413) NEUTROPHILS RELATIVE PERCENT 73 % (BEAKER) (test code = 429) LYMPHOCYTES RELATIVE PERCENT 12 % (BEAKER) (test code = 430) MONOCYTES RELATIVE PERCENT 10 % (BEAKER) (test code = 431) EOSINOPHILS RELATIVE PERCENT 2 % (BEAKER) (test code = 432) BASOPHILS RELATIVE PERCENT 1 % (BEAKER) (test code = 437) NEUTROPHILS ABSOLUTE COUNT 7.50 K/ L 1.78-5.38 H (BEAKER) (test code = 670) LYMPHOCYTES ABSOLUTE COUNT 1.20 K/ L 1.32-3.57 L (BEAKER) (test code = 414) MONOCYTES ABSOLUTE COUNT (BEAKER) 1.04 K/ L 0.30-0.82 H (test code = 415) EOSINOPHILS ABSOLUTE COUNT 0.24 K/ L 0.04-0.54 (BEAKER) (test code = 416) BASOPHILS ABSOLUTE COUNT (BEAKER) 0.05 K/ L 0.01-0.08 (test code = 417) IMMATURE GRANULOCYTES-RELATIVE 3 % 0-1 H PERCENT (BEAKER) (test code = 2801) [id number] 05:28:00 Test Item Value Reference Range Interpretation Comments PHOSPHORUS (BEAKER) (test code = 3.4 mg/dL 2.3-4.7 604) [id number] 05:28:00 Test Item Value Reference Range Interpretation Comments MAGNESIUM (BEAKER) (test code = 2.0 mg/dL 1.6-2.6 627) BASIC METABOLIC [id number] 05:28:00 Test Item Value Reference Range Interpretation Comments SODIUM (BEAKER) 137 meq/L 136-145 (test code = 381) POTASSIUM (BEAKER) 4.0 meq/L 3.5-5.1 (test code = 379) CHLORIDE (BEAKER) 97 meq/L 98-107 L (test code = 382) CO2 (BEAKER) (test 28 meq/L 22-29 code = 355) BLOOD UREA NITROGEN 37 mg/dL 7-21 H (BEAKER) (test code = 354) CREATININE (BEAKER) 2.02 mg/dL 0.57-1.25 H (test code = 358) GLUCOSE RANDOM 117 mg/dL 70-105 H (BEAKER) (test code = 652) CALCIUM (BEAKER) 8.4 mg/dL 8.4-10.2 (test code = 697) EGFR (BEAKER) (test 32 mL/min/1.73 ESTIMA RENUKA GFR IS code = 1092) sq m NOT ACCURATE CREATININE CLEARANCE IN PREDICTING GLOMERULAR FILTRATION RATE . ESTIMATED GFR I S NOT APPLICABLE FOR DIALYSIS PATIEN TS. [id number] 22:02:00 Test Item Value Reference Range Interpretation Comments MAGNESIUM (BEAKER) (test code = 2.1 mg/dL 1.6-2.6 627) BASIC METABOLIC [id number] 22:02:00 Test Item Value Reference Range Interpretation Comments SODIUM (BEAKER) 136 meq/L 136-145 (test code = 381) POTASSIUM (BEAKER) 4.3 meq/L 3.5-5.1 (test code = 379) CHLORIDE (BEAKER) 99 meq/L 98-107 (test code = 382) CO2 (BEAKER) (test 25 meq/L 22-29 code = 355) BLOOD UREA NITROGEN 36 mg/dL 7-21 H (BEAKER) (test code = 354) CREATININE (BEAKER) 1.95 mg/dL 0.57-1.25 H (test code = 358) GLUCOSE RANDOM 133 mg/dL 70-105 H (BEAKER) (test code = 652) CALCIUM (BEAKER) 8.3 mg/dL 8.4-10.2 L (test code = 697) EGFR (BEAKER) (test 34 mL/min/1.73 ESTIMA RENUKA GFR IS code = 1092) sq m NOT ACCURATE CREATININE CLEARANCE IN PREDICTING GLOMERULAR FILTRATION RATE . ESTIMATED GFR I S NOT APPLICABLE FOR DIALYSIS PATIEN TS. POCT-GLUCOSE [id number] 21:42:00 Test Item Value Reference Range Interpretation Comments POC-GLUCOSE METER 125 mg/dL 70-110 H TESTED AT [place] [address] ([facility]) (test code = [facility] 1538) [address] POCT-GLUCOSE [id number] 18:41:00 Test Item Value Reference Range Interpretation Comments POC-GLUCOSE METER 150 mg/dL 70-110 H TESTED AT [place] [address] ([facility]) (test code = [facility] 1538) [address] POCT-GLUCOSE [id number] 17:53:00 Test Item Value Reference Range Interpretation Comments POC-GLUCOSE METER 127 mg/dL 70-110 H TESTED AT [place] [address] ([facility]) (test code = [facility] 1538) [address] VANCOMYCIN LEVEL, [id number] 15:24:00 Test Item Value Reference Range Interpretation Comments VANCOMYCIN TROUGH (BEAKER) (test 27.4 ug/mL 10.0-20.0 H code = 522) Please draw trough 30 minutes prior to vancomycin dose on 09/05.BASIC METABOLIC [id number] 12:57:00 Test Item Value Reference Range Interpretation Comments SODIUM (BEAKER) 136 meq/L 136-145 (test code = 381) POTASSIUM (BEAKER) 3.9 meq/L 3.5-5.1 (test code = 379) CHLORIDE (BEAKER) 100 meq/L 98-107 (test code = 382) CO2 (BEAKER) (test 24 meq/L 22-29 code = 355) BLOOD UREA NITROGEN 34 mg/dL 7-21 H (BEAKER) (test code = 354) CREATININE (BEAKER) 2.22 mg/dL 0.57-1.25 H (test code = 358) GLUCOSE RANDOM 123 mg/dL 70-105 H (BEAKER) (test code = 652) CALCIUM (BEAKER) 8.4 mg/dL 8.4-10.2 (test code = 697) EGFR (BEAKER) (test 29 mL/min/1.73 ESTIMA RENUKA GFR IS code = 1092) sq m NOT ACCURATE CREATININE CLEARANCE IN PREDICTING GLOMERULAR FILTRATION RATE . ESTIMATED GFR I S NOT APPLICABLE FOR DIALYSIS PATIEN TS. [id number] 12:46:00 Test Item Value Reference Range Interpretation Comments MAGNESIUM (BEAKER) (test code = 2.1 mg/dL 1.6-2.6 627) POCT-GLUCOSE [id number] 09:45:00 Test Item Value Reference Range Interpretation Comments POC-GLUCOSE METER 134 mg/dL 70-[address] [facility] 6720 (BECEE) (test code = MAR[place] ESTHER [place] 1538) [address] RAD, CHEST, 1 VIEW, NON [id number] 08:44:00Reason for exam:->shortness of breathFINAL REPORT Chest [...] MDReport Verified Date/Time: 09/05/2017 08:44:03 Reading Location: [facility] Radiology Reading Room URINE [id number] 08:13:00 Test Item Value Reference Range Interpretation Comments CULTURE (BEAKER) (test code No growth = 1095) GRAM STAIN RESULT (BEAKER) 1+ WBCs (test code = 1123) GRAM STAIN RESULT (BEAKER) No organisms seen (test code = 37771) SURGICALLY OBTAINED CULTURE + GRAM [id number] 08:04:00 Test Item Value Reference Range Interpretation Comments CULTURE (BEAKER) (test code No growth = 1095) GRAM STAIN RESULT (BEAKER) <1+ WBCs (test code = 1123) GRAM STAIN RESULT (BEAKER) No organisms seen (test code = 09304) SURGICALLY OBTAINED CULTURE + GRAM [id number] 08:03:00 Test Item Value Reference Range Interpretation Comments CULTURE (BEAKER) (test code No growth = 1095) GRAM STAIN RESULT (BEAKER) No WBCs (test code = 1123) GRAM STAIN RESULT (BEAKER) No organisms seen (test code = 32753) CBC WITH PLATELET COUNT + MANUAL [id number] 04:36:00 Test Item Value Reference Range Interpretation Comments WHITE BLOOD CELL COUNT (BEAKER) 10.1 K/ L 3.5-10.5 (test code = 775) RED BLOOD CELL COUNT (BEAKER) 3.10 M/ L 4.63-6.08 L (test code = 761) HEMOGLOBIN (BEAKER) (test code = 8.6 GM/DL 13.7-17.5 L 410) HEMATOCRIT (BEAKER) (test code = 27.8 % 40.1-51.0 L 411) MEAN CORPUSCULAR VOLUME (BEAKER) 89.7 fL 79.0-92.2 (test code = 753) MEAN CORPUSCULAR HEMOGLOBIN 27.7 pg 25.7-32.2 (BEAKER) (test code = 751) MEAN CORPUSCULAR HEMOGLOBIN CONC 30.9 GM/DL 32.3-36.5 L (BEAKER) (test code = 752) RED CELL DISTRIBUTION WIDTH 17.8 % 11.6-14.4 H (BEAKER) (test code = 412) PLATELET COUNT (BEAKER) (test 439 K/CU MM 150-450 code = 756) MEAN PLATELET VOLUME (BEAKER) 9.2 fL 9.4-12.4 L (test code = 754) NUCLEATED RED BLOOD CELLS 1 /100 WBC 0-0 H (BEAKER) (test code = 413) IMMATURE GRANULOCYTES-RELATIVE 3 % 0-1 H PERCENT (BEAKER) (test code = 2801) BASIC METABOLIC [id number] 03:37:00 Test Item Value Reference Range Interpretation Comments SODIUM (BEAKER) 136 meq/L 136-145 (test code = 381) POTASSIUM (BEAKER) 3.8 meq/L 3.5-5.1 (test code = 379) CHLORIDE (BEAKER) 100 meq/L 98-107 (test code = 382) CO2 (BEAKER) (test 24 meq/L 22-29 code = 355) BLOOD UREA NITROGEN 35 mg/dL 7-21 H (BEAKER) (test code = 354) CREATININE (BEAKER) 2.30 mg/dL 0.57-1.25 H (test code = 358) GLUCOSE RANDOM 118 mg/dL 70-105 H (BEAKER) (test code = 652) CALCIUM (BEAKER) 8.1 mg/dL 8.4-10.2 L (test code = 697) EGFR (BEAKER) (test 28 mL/min/1.73 ESTIMA RENUKA GFR IS code = 1092) sq m NOT ACCURATE CREATININE CLEARANCE IN PREDICTING GLOMERULAR FILTRATION RATE . ESTIMATED GFR I S NOT APPLICABLE FOR DIALYSIS PATIEN TS. [id number] 03:31:00 Test Item Value Reference Range Interpretation Comments PHOSPHORUS (BEAKER) (test code = 3.6 mg/dL 2.3-4.7 604) [id number] 03:31:00 Test Item Value Reference Range Interpretation Comments MAGNESIUM (BEAKER) (test code = 2.3 mg/dL 1.6-2.6 627) CBC W/PLT COUNT & AUTO [id number] 03:20:00 Test Item Value Reference Range Interpretation Comments WHITE BLOOD CELL COUNT (BEAKER) 10.1 K/ L 3.5-10.5 (test code = 775) RED BLOOD CELL COUNT (BEAKER) 3.10 M/ L 4.63-6.08 L (test code = 761) HEMOGLOBIN (BEAKER) (test code = 8.6 GM/DL 13.7-17.5 L 410) HEMATOCRIT (BEAKER) (test code = 27.8 % 40.1-51.0 L 411) MEAN CORPUSCULAR VOLUME (BEAKER) 89.7 fL 79.0-92.2 (test code = 753) MEAN CORPUSCULAR HEMOGLOBIN 27.7 pg 25.7-32.2 (BEAKER) (test code = 751) MEAN CORPUSCULAR HEMOGLOBIN CONC 30.9 GM/DL 32.3-36.5 L (BEAKER) (test code = 752) RED CELL DISTRIBUTION WIDTH 17.8 % 11.6-14.4 H (BEAKER) (test code = 412) PLATELET COUNT (BEAKER) (test 439 K/CU MM 150-450 code = 756) MEAN PLATELET VOLUME (BEAKER) 9.2 fL 9.4-12.4 L (test code = 754) NUCLEATED RED BLOOD CELLS 1 /100 WBC 0-0 H (BEAKER) (test code = 413) IMMATURE GRANULOCYTES-RELATIVE 3 % 0-1 H PERCENT (BEAKER) (test code = 2801) BASIC METABOLIC [id number] 22:33:00 Test Item Value Reference Range Interpretation Comments SODIUM (BEAKER) 135 meq/L 136-145 L (test code = 381) POTASSIUM (BEAKER) 3.8 meq/L 3.5-5.1 (test code = 379) CHLORIDE (BEAKER) 101 meq/L 98-107 (test code = 382) CO2 (BEAKER) (test 24 meq/L 22-29 code = 355) BLOOD UREA NITROGEN 36 mg/dL 7-21 H (BEAKER) (test code = 354) CREATININE (BEAKER) 2.26 mg/dL 0.57-1.25 H (test code = 358) GLUCOSE RANDOM 119 mg/dL 70-105 H (BEAKER) (test code = 652) CALCIUM (BEAKER) 7.9 mg/dL 8.4-10.2 L (test code = 697) EGFR (BEAKER) (test 29 mL/min/1.73 ESTIMA RENUKA GFR IS code = 1092) sq m NOT ACCURATE CREATININE CLEARANCE IN PREDICTING GLOMERULAR FILTRATION RATE . ESTIMATED GFR I S NOT APPLICABLE FOR DIALYSIS PATIEN TS. [id number] 22:28:00 Test Item Value Reference Range Interpretation Comments MAGNESIUM (BEAKER) (test code = 1.8 mg/dL 1.6-2.6 627) POCT-GLUCOSE [id number] 21:08:00 Test Item Value Reference Range Interpretation Comments POC-GLUCOSE METER 111 mg/dL 70-110 H TESTED AT [place] [address] (BEAKER) (test code = MARIA ESTHER Cash [place] 1538) [id number] CBC (HEMOGRAM ONLY)2017-09-04 19:09:00 Test Item Value Reference Range Interpretation Comments WHITE BLOOD CELL COUNT (BEAKER) 9.3 K/ L 3.5-10.5 (test code = 775) RED BLOOD CELL COUNT (BEAKER) 3.02 M/ L 4.63-6.08 L (test code = 761) HEMOGLOBIN (BEAKER) (test code = 8.5 GM/DL 13.7-17.5 L 410) HEMATOCRIT (BEAKER) (test code = 27.2 % 40.1-51.0 L 411) MEAN CORPUSCULAR VOLUME (BEAKER) 90.1 fL 79.0-92.2 (test code = 753) MEAN CORPUSCULAR HEMOGLOBIN 28.1 pg 25.7-32.2 (BEAKER) (test code = 751) MEAN CORPUSCULAR HEMOGLOBIN CONC 31.3 GM/DL 32.3-36.5 L (BEAKER) (test code = 752) RED CELL DISTRIBUTION WIDTH 17.8 % 11.6-14.4 H (BEAKER) (test code = 412) PLATELET COUNT (BEAKER) (test 463 K/CU MM 150-450 H code = 756) MEAN PLATELET VOLUME (BEAKER) 9.3 fL 9.4-12.4 L (test code = 754) NUCLEATED RED BLOOD CELLS 0 /100 WBC 0-0 (BEAKER) (test code = 413) POCT-GLUCOSE [id number] 17:44:00 Test Item Value Reference Range Interpretation Comments POC-GLUCOSE METER 139 mg/dL 70-110 H TESTED AT [place] [address] (BEAKER) [facility] 1538) [id number] POCT-GLUCOSE [id number] 11:39:00 Test Item Value Reference Range Interpretation Comments POC-GLUCOSE METER 142 mg/dL 70-110 H TESTED AT [place] [id number] (BEAKER) (test [facility] = [facility] 1538) [address] BASIC METABOLIC [id number] 10:56:00 Test Item Value Reference Range Interpretation Comments SODIUM (BEAKER) 135 meq/L 136-145 L (test code = 381) POTASSIUM (BEAKER) 3.9 meq/L 3.5-5.1 (test code = 379) CHLORIDE (BEAKER) 102 meq/L 98-107 (test code = 382) CO2 (BEAKER) (test 24 meq/L 22-29 code = 355) BLOOD UREA NITROGEN 37 mg/dL 7-21 H (BEAKER) (test code = 354) CREATININE (BEAKER) 2.53 mg/dL 0.57-1.25 H (test code = 358) GLUCOSE RANDOM 127 mg/dL 70-105 H (BEAKER) (test code = 652) CALCIUM (BEAKER) 7.8 mg/dL 8.4-10.2 L (test code = 697) EGFR (BEAKER) (test 25 mL/min/1.73 ESTIMA RENUKA GFR IS code = 1092) sq m NOT ACCURATE CREATININE CLEARANCE IN PREDICTING GLOMERULAR FILTRATION RATE . ESTIMATED GFR I S NOT APPLICABLE FOR DIALYSIS PATIEN TS. B-TYPE NATRIURETIC FACTOR (BNP)2017-09-04 10:54:00 Test Item Value Reference Range Interpretation Comments B-TYPE NATRIURETIC PEPTIDE (BEAKER) 360 pg/mL 0-100 H (test code = 700) [id number] 10:46:00 Test Item Value Reference Range Interpretation Comments PHOSPHORUS (BEAKER) (test code = 4.1 mg/dL 2.3-4.7 604) [id number] 10:46:00 Test Item Value Reference Range Interpretation Comments MAGNESIUM (BEAKER) (test code = 2.1 mg/dL 1.6-2.6 627) RAD, CHEST, 1 VIEW, NON [id number] 08:32:00Reason for exam:->shortness of breathShould this be [...] intact and well aligned. No fracture. Signed: Rosines, Candelario A. MDReport Verified Date/Time: 09/04/2017 08:32:13 Reading Location: [facility] Radiology Reading Room POCT-GLUCOSE [id number] 08:02:00 Test Item Value Reference Range Interpretation Comments POC-GLUCOSE METER 144 mg/dL 70-[address] [facility] 6720 (BEAKER) (test code = [place] 1538) [address] BASIC METABOLIC [id number] 04:29:00 Test Item Value Reference Range Interpretation Comments SODIUM (BEAKER) 133 meq/L 136-145 L (test code = 381) POTASSIUM (BEAKER) 3.7 meq/L 3.5-5.1 (test code = 379) CHLORIDE (BEAKER) 101 meq/L 98-107 (test code = 382) CO2 (BEAKER) (test 22 meq/L 22-29 code = 355) BLOOD UREA NITROGEN 37 mg/dL 7-21 H (BEAKER) (test code = 354) CREATININE (BEAKER) 2.65 mg/dL 0.57-1.25 H (test code = 358) GLUCOSE RANDOM 136 mg/dL 70-105 H (BEAKER) (test code = 652) CALCIUM (BEAKER) 7.6 mg/dL 8.4-10.2 L (test code = 697) EGFR (BEAKER) (test 24 mL/min/1.73 ESTIMA RENUKA GFR IS code = 1092) sq m NOT ACCURATE CREATININE CLEARANCE IN PREDICTING GLOMERULAR FILTRATION RATE . ESTIMATED GFR I S NOT APPLICABLE FOR DIALYSIS PATIEN TS. [id number] 04:25:00 Test Item Value Reference Range Interpretation Comments PHOSPHORUS (BEAKER) (test code = 4.2 mg/dL 2.3-4.7 604) [id number] 04:25:00 Test Item Value Reference Range Interpretation Comments MAGNESIUM (BEAKER) (test code = 2.0 mg/dL 1.6-2.6 627) CBC W/PLT COUNT & AUTO [id number] 03:30:00 Test Item Value Reference Range Interpretation Comments WHITE BLOOD CELL COUNT (BEAKER) 9.1 K/ L 3.5-10.5 (test code = 775) RED BLOOD CELL COUNT (BEAKER) 2.54 M/ L 4.63-6.08 L (test code = 761) HEMOGLOBIN (BEAKER) (test code = 7.0 GM/DL 13.7-17.5 L 410) HEMATOCRIT (BEAKER) (test code = 23.4 % 40.1-51.0 L 411) MEAN CORPUSCULAR VOLUME (BEAKER) 92.1 fL 79.0-92.2 (test code = 753) MEAN CORPUSCULAR HEMOGLOBIN 27.6 pg 25.7-32.2 (BEAKER) (test code = 751) MEAN CORPUSCULAR HEMOGLOBIN CONC 29.9 GM/DL 32.3-36.5 L (BEAKER) (test code = 752) RED CELL DISTRIBUTION WIDTH 17.2 % 11.6-14.4 H (BEAKER) (test code = 412) PLATELET COUNT (BEAKER) (test 407 K/CU MM 150-450 code = 756) MEAN PLATELET VOLUME (BEAKER) 9.2 fL 9.4-12.4 L (test code = 754) NUCLEATED RED BLOOD CELLS 0 /100 WBC 0-0 (BEAKER) (test code = 413) NEUTROPHILS RELATIVE PERCENT 75 % (BEAKER) (test code = 429) LYMPHOCYTES RELATIVE PERCENT 10 % (BEAKER) (test code = 430) MONOCYTES RELATIVE PERCENT 10 % (BEAKER) (test code = 431) EOSINOPHILS RELATIVE PERCENT 1 % (BEAKER) (test code = 432) BASOPHILS RELATIVE PERCENT 0 % (BEAKER) (test code = 437) NEUTROPHILS ABSOLUTE COUNT 6.78 K/ L 1.78-5.38 H (BEAKER) (test code = 670) LYMPHOCYTES ABSOLUTE COUNT 0.92 K/ L 1.32-3.57 L (BEAKER) (test code = 414) MONOCYTES ABSOLUTE COUNT (BEAKER) 0.89 K/ L 0.30-0.82 H (test code = 415) EOSINOPHILS ABSOLUTE COUNT 0.13 K/ L 0.04-0.54 (BEAKER) (test code = 416) BASOPHILS ABSOLUTE COUNT (BEAKER) 0.03 K/ L 0.01-0.08 (test code = 417) IMMATURE GRANULOCYTES-RELATIVE 3 % 0-1 H PERCENT (BEAKER) (test code = 2801) POCT-GLUCOSE [id number] 23:06:00 Test Item Value Reference Range Interpretation Comments POC-GLUCOSE METER 155 mg/dL 70-[address] [facility] 6720 (BEAKER) (test code = MARIA ESTHER Cash [place] 1538) [id number] POCT-GLUCOSE [id number] 17:12:00 Test Item Value Reference Range Interpretation Comments POC-GLUCOSE METER 157 mg/dL 70-[address] [facility] 67 (BEAKER) (test code = MARIA ESTHER Cash [facility] 1538) [address] SPIN/CONCENTRATION [id number] 16:25:00 Test Item Value Reference Range Interpretation Comments CONCENTRATION CHARGED (BEAKER) (test Done code = 2657) POCT-GLUCOSE [id number] 12:16:00 Test Item Value Reference Range Interpretation Comments POC-GLUCOSE METER 163 mg/dL 70-110 H TESTED AT [place] [address] (BEAKER) (test code = MARIA ESTHER Cash [facility] 1538) [address] [id number] 11:44:00 Test Item Value Reference Range Interpretation Comments FERRITIN (BEAKER) (test code = 361) 400 ng/mL 5-275 H IRON, TIBC, % SAT. (WITHOUT FERRITIN)2017-09-03 11:24:00 Test Item Value Reference Range Interpretation Comments IRON (BEAKER) (test code = 547) 38 ug/dL 40-160 L TOTAL IRON BINDING CAPACITY 168 ug/dL 250-450 L (BEAKER) (test code = 769) IRON % SATURATION (2) (BEAKER) 23 % 20-55 (test code = 2590) RETICULOCYTE [id number] 11:10:00 Test Item Value Reference Range Interpretation Comments RETICULOCYTE COUNT PCT (BEAKER) (test 3.2 % 0.5-1.8 H code = 575) RAD, CHEST, 1 VIEW, NON [id number] 11:05:00Reason for exam:->shortness of breathFINAL REPORT Chest one view INDICATION: Shortness of breath COMPARISON: 09/02/2017 IMPRESSION: The cardiac silhouette is enlarged. Mediastinal widening is stable with median sternotomy changes. There is pulmonary vascular congestion with stable interstitial reticulation and lower lung airspace opacities suggesting edema and atelectasis with left greater than right dependent pleural effusions. Superimposed pneumonitis should be excluded clinically. No pneumothorax is seen. Signed: Harriett Garnica MDReport Verified Date/Time: 09/03/2017 11:05:13 Reading Location: [facility] Radiology Reading Room [facility] (HEMOGRAM ONLY)2017-09-03 10:57:00 Test Item Value Reference Range Interpretation Comments WHITE BLOOD CELL COUNT (BEAKER) 9.9 K/ L 3.5-10.5 (test code = 775) RED BLOOD CELL COUNT (BEAKER) 2.71 M/ L 4.63-6.08 L (test code = 761) HEMOGLOBIN (BEAKER) (test code = 7.6 GM/DL 13.7-17.5 L 410) HEMATOCRIT (BEAKER) (test code = 25.6 % 40.1-51.0 L 411) MEAN CORPUSCULAR VOLUME (BEAKER) 94.5 fL 79.0-92.2 H (test code = 753) MEAN CORPUSCULAR HEMOGLOBIN 28.0 pg 25.7-32.2 (BEAKER) (test code = 751) MEAN CORPUSCULAR HEMOGLOBIN CONC 29.7 GM/DL 32.3-36.5 L (BEAKER) (test code = 752) RED CELL DISTRIBUTION WIDTH 16.9 % 11.6-14.4 H (BEAKER) (test code = 412) PLATELET COUNT (BEAKER) (test 438 K/CU MM 150-450 code = 756) MEAN PLATELET VOLUME (BEAKER) 9.9 fL 9.4-12.4 (test code = 754) NUCLEATED RED BLOOD CELLS 0 /100 WBC 0-0 (BEAKER) (test code = 413) HEMOGLOBIN AND [id number] 06:14:00 Test Item Value Reference Range Interpretation Comments HEMOGLOBIN (BEAKER) (test code = 6.7 GM/DL 13.7-17.5 L 410) HEMATOCRIT (BEAKER) (test code = 23.0 % 40.1-51.0 L 411) POCT-GLUCOSE [id number] 06:08:00 Test Item Value Reference Range Interpretation Comments POC-GLUCOSE METER 155 mg/dL 70-[address] [facility] 6720 (BEAKER) (test code = MARIA ESTHER [place] 1538) [address] BASIC METABOLIC [id number] 03:44:00 Test Item Value Reference Range Interpretation Comments SODIUM (BEAKER) 136 meq/L 136-145 (test code = 381) POTASSIUM (BEAKER) 4.4 meq/L 3.5-5.1 (test code = 379) CHLORIDE (BEAKER) 104 meq/L 98-107 (test code = 382) CO2 (BEAKER) (test 21 meq/L 22-29 L code = 355) BLOOD UREA NITROGEN 31 mg/dL 7-21 H (BEAKER) (test code = 354) CREATININE (BEAKER) 2.73 mg/dL 0.57-1.25 H (test code = 358) GLUCOSE RANDOM 156 mg/dL 70-105 H (BEAKER) (test code = 652) CALCIUM (BEAKER) 7.7 mg/dL 8.4-10.2 L (test code = 697) EGFR (BEAKER) (test 23 mL/min/1.73 ESTIMA RENUKA GFR IS code = 1092) sq m NOT ACCURATE CREATININE CLEARANCE IN PREDICTING GLOMERULAR FILTRATION RATE . ESTIMATED GFR I S NOT APPLICABLE FOR DIALYSIS PATIEN TS. VANCOMYCIN LEVEL, [id number] 03:41:00 Test Item Value Reference Range Interpretation Comments VANCOMYCIN RANDOM (BEAKER) (test 16.7 ug/mL code = 523) Reference Range: No [id number] 03:40:00 Test Item Value Reference Range Interpretation Comments PHOSPHORUS (BEAKER) (test code = 5.2 mg/dL 2.3-4.7 H 604) [id number] 03:40:00 Test Item Value Reference Range Interpretation Comments MAGNESIUM (BEAKER) (test code = 1.7 mg/dL 1.6-2.6 627) CBC W/PLT COUNT & AUTO [id number] 03:39:00 Test Item Value Reference Range Interpretation Comments WHITE BLOOD CELL COUNT (BEAKER) 8.6 K/ L 3.5-10.5 (test code = 775) RED BLOOD CELL COUNT (BEAKER) 2.50 M/ L 4.63-6.08 L (test code = 761) HEMOGLOBIN (BEAKER) (test code = 6.9 GM/DL 13.7-17.5 L 410) HEMATOCRIT (BEAKER) (test code = 23.6 % 40.1-51.0 L 411) MEAN CORPUSCULAR VOLUME (BEAKER) 94.4 fL 79.0-92.2 H (test code = 753) MEAN CORPUSCULAR HEMOGLOBIN 27.6 pg 25.7-32.2 (BEAKER) (test code = 751) MEAN CORPUSCULAR HEMOGLOBIN CONC 29.2 GM/DL 32.3-36.5 L (BEAKER) (test code = 752) RED CELL DISTRIBUTION WIDTH 17.2 % 11.6-14.4 H (BEAKER) (test code = 412) PLATELET COUNT (BEAKER) (test 454 K/CU MM 150-450 H code = 756) MEAN PLATELET VOLUME (BEAKER) 10.0 fL 9.4-12.4 (test code = 754) NUCLEATED RED BLOOD CELLS 0 /100 WBC 0-0 (BEAKER) (test code = 413) NEUTROPHILS RELATIVE PERCENT 78 % (BEAKER) (test code = 429) LYMPHOCYTES RELATIVE PERCENT 11 % (BEAKER) (test code = 430) MONOCYTES RELATIVE PERCENT 10 % (BEAKER) (test code = 431) EOSINOPHILS RELATIVE PERCENT 0 % (BEAKER) (test code = 432) BASOPHILS RELATIVE PERCENT 0 % (BEAKER) (test code = 437) NEUTROPHILS ABSOLUTE COUNT 6.71 K/ L 1.78-5.38 H (BEAKER) (test code = 670) LYMPHOCYTES ABSOLUTE COUNT 0.93 K/ L 1.32-3.57 L (BEAKER) (test code = 414) MONOCYTES ABSOLUTE COUNT (BEAKER) 0.83 K/ L 0.30-0.82 H (test code = 415) EOSINOPHILS ABSOLUTE COUNT 0.02 K/ L 0.04-0.54 L (BEAKER) (test code = 416) BASOPHILS ABSOLUTE COUNT (BEAKER) 0.01 K/ L 0.01-0.08 (test code = 417) IMMATURE GRANULOCYTES-RELATIVE 1 % 0-1 PERCENT (BEAKER) (test code = 2801) POCT-GLUCOSE [id number] 23:21:00 Test Item Value Reference Range Interpretation Comments POC-GLUCOSE METER 168 mg/dL 70-[address] [facility] 6720 (BEAKER) (test code = MARIA ESTHER [place] 1538) [address] URINALYSIS W/ [id number] 22:42:00 Test Item Value Reference Range Interpretation Comments COLOR (BEAKER) (test code = 470) Yellow CLARITY (BEAKER) (test code = 469) Hazy SPECIFIC GRAVITY UA (BEAKER) (test 1.018 1.001-1.035 code = 468) PH UA (BEAKER) (test code = 467) 5.0 5.0-8.0 PROTEIN UA (BEAKER) (test code = 50 mg/dL Negative A 464) GLUCOSE UA (BEAKER) (test code = Negative Negative 365) KETONES UA (BEAKER) (test code = Negative Negative 371) BILIRUBIN UA (BEAKER) (test code = Negative Negative 462) BLOOD UA (BEAKER) (test code = Negative Negative 461) NITRITE UA (BEAKER) (test code = Negative Negative 465) LEUKOCYTE ESTERASE UA (BEAKER) Large Negative A (test code = 466) UROBILINOGEN UA (BEAKER) (test 2.0 mg/dL 0.2-1.0 H code = 463) RBC UA (BEAKER) (test code = 519) 0 /HPF WBC UA (BEAKER) (test code = 520) 45 /HPF MUCUS (BEAKER) (test code = 1574) Occasional SQUAMOUS EPITHELIAL (BEAKER) (test 1 /HPF code = 516) SOURCE(BEAKER) (test code = 2795) BASIC METABOLIC [id number] 22:37:00 Test Item Value Reference Range Interpretation Comments SODIUM (BEAKER) 135 meq/L 136-145 L (test code = 381) POTASSIUM (BEAKER) 4.6 meq/L 3.5-5.1 (test code = 379) CHLORIDE (BEAKER) 105 meq/L 98-107 (test code = 382) CO2 (BEAKER) (test 21 meq/L 22-29 L code = 355) BLOOD UREA NITROGEN 30 mg/dL 7-21 H (BEAKER) (test code = 354) CREATININE (BEAKER) 2.40 mg/dL 0.57-1.25 H (test code = 358) GLUCOSE RANDOM 158 mg/dL 70-105 H (BEAKER) (test code = 652) CALCIUM (BEAKER) 7.8 mg/dL 8.4-10.2 L (test code = 697) EGFR (BEAKER) (test 27 mL/min/1.73 ESTIMA RENUKA GFR IS code = 1092) sq m NOT ACCURATE CREATININE CLEARANCE IN PREDICTING GLOMERULAR FILTRATION RATE . ESTIMATED GFR I S NOT APPLICABLE FOR DIALYSIS PATIEN TS. [id number] 22:34:00 Test Item Value Reference Range Interpretation Comments MAGNESIUM (BEAKER) (test code = 1.3 mg/dL 1.6-2.6 L 627) LACTIC ACID, ARTERIAL, WHOLE [id number] 22:30:00 Test Item Value Reference Range Interpretation Comments LACTATE BLOOD ARTERIAL (2) 1.9 mmol/L 0.5-2.2 (BEAKER) (test code = 2874) Effective 09/27/2015: Units/Reference Range ChangeNew: 0.5-2.2 mmol/L Previous: 5-20 mg/dLHEPATIC FUNCTION [id number] 20:18:00 Test Item Value Reference Range Interpretation Comments TOTAL PROTEIN (BEAKER) (test code = 6.2 gm/dL 6.0-8.3 770) ALBUMIN (BEAKER) (test code = 1145) 2.4 g/dL 3.5-5.0 L BILIRUBIN TOTAL (BEAKER) (test code 0.5 mg/dL 0.2-1.2 = 377) BILIRUBIN DIRECT (BEAKER) (test 0.3 mg/dL 0.1-0.5 code = 706) ALKALINE PHOSPHATASE (BEAKER) (test 82 U/L 40-150 code = 346) AST (SGOT) (BEAKER) (test code = 36 U/L 5-34 H 353) ALT (SGPT) (BEAKER) (test code = 29 U/L 6-55 347) LACTIC ACID, VENOUS, WHOLE [id number] 20:13:00 Test Item Value Reference Range Interpretation Comments LACTATE BLOOD VENOUS (2) (BEAKER) 2.0 mmol/L 0.5-2.2 (test code = 2872) Effective 09/27/2015: Units/Reference Range ChangeNew: 0.5-2.2 mmol/L Previous: 5-20 mg/dLBASIC METABOLIC [id number] 15:01:00 Test Item Value Reference Range Interpretation Comments SODIUM (BEAKER) 135 meq/L 136-145 L (test code = 381) POTASSIUM (BEAKER) 4.3 meq/L 3.5-5.1 (test code = 379) CHLORIDE (BEAKER) 102 meq/L 98-107 (test code = 382) CO2 (BEAKER) (test 22 meq/L 22-29 code = 355) BLOOD UREA NITROGEN 27 mg/dL 7-21 H (BEAKER) (test code = 354) CREATININE (BEAKER) 1.97 mg/dL 0.57-1.25 H (test code = 358) GLUCOSE RANDOM 185 mg/dL 70-105 H (BEAKER) (test code = 652) CALCIUM (BEAKER) 7.9 mg/dL 8.4-10.2 L (test code = 697) EGFR (BEAKER) (test 33 mL/min/1.73 ESTIMA RENUKA GFR IS code = 1092) sq m NOT ACCURATE CREATININE CLEARANCE IN PREDICTING GLOMERULAR FILTRATION RATE . ESTIMATED GFR I S NOT APPLICABLE FOR DIALYSIS PATIEN TS. [id number] 14:58:00 Test Item Value Reference Range Interpretation Comments PHOSPHORUS (BEAKER) (test code = 5.2 mg/dL 2.3-4.7 H 604) [id number] 14:58:00 Test Item Value Reference Range Interpretation Comments MAGNESIUM (BEAKER) (test code = 1.4 mg/dL 1.6-2.6 L 627) BASIC METABOLIC [id number] 14:49:00 Test Item Value Reference Range Interpretation Comments SODIUM (BEAKER) 134 meq/L 136-145 L (test code = 381) POTASSIUM (BEAKER) 4.4 meq/L 3.5-5.1 (test code = 379) CHLORIDE (BEAKER) 102 meq/L 98-107 (test code = 382) CO2 (BEAKER) (test 22 meq/L 22-29 code = 355) BLOOD UREA NITROGEN 27 mg/dL 7-21 H (BEAKER) (test code = 354) CREATININE (BEAKER) 1.96 mg/dL 0.57-1.25 H (test code = 358) GLUCOSE RANDOM 184 mg/dL 70-105 H (BEAKER) (test code = 652) CALCIUM (BEAKER) 7.9 mg/dL 8.4-10.2 L (test code = 697) EGFR (BEAKER) (test 34 mL/min/1.73 ESTIMA RENUKA GFR IS code = 1092) sq m NOT ACCURATE CREATININE CLEARANCE IN PREDICTING GLOMERULAR FILTRATION RATE . ESTIMATED GFR I S NOT APPLICABLE FOR DIALYSIS PATIEN TS. LACTIC ACID, ARTERIAL, WHOLE [id number] 14:35:00 Test Item Value Reference Range Interpretation Comments LACTATE BLOOD ARTERIAL (2) 2.6 mmol/L 0.5-2.2 H (BEAKER) (test code = 2874) Effective 09/27/2015: Units/Reference Range ChangeNew: 0.5-2.2 mmol/L Previous: 5-20 mg/dLPROTHROMBIN [id number] 14:27:00 Test Item Value Reference Range Interpretation Comments PROTIME (BEAKER) (test code = 21.3 seconds 11.7-14.7 H 759) INR (BEAKER) (test code = 370) 1.8 <=5.9 RECOMMENDED COUMADIN/WARFARIN INR THERAPY RANGESSTANDARD DOSE: 2.0 - 3.0 Includes: PROPHYLAXIS forvenous thrombosis, systemic embolization; TREATMENT for venous thrombosis and/or pulmonary embolus.HIGH RISK: Target INR is 2.5-3.5 for patients with mechanical heart valves.[id number] 14:27:00 Test Item Value Reference Range Interpretation Comments PARTIAL THROMBOPLASTIN TIME 37.6 seconds 22.5-36.0 H (BEAKER) (test code = 760) CBC W/PLT COUNT & AUTO [id number] 14:20:00 Test Item Value Reference Range Interpretation Comments WHITE BLOOD CELL COUNT (BEAKER) 13.7 K/ L 3.5-10.5 H (test code = 775) RED BLOOD CELL COUNT (BEAKER) 3.16 M/ L 4.63-6.08 L (test code = 761) HEMOGLOBIN (BEAKER) (test code = 8.8 GM/DL 13.7-17.5 L 410) HEMATOCRIT (BEAKER) (test code = 29.9 % 40.1-51.0 L 411) MEAN CORPUSCULAR VOLUME (BEAKER) 94.6 fL 79.0-92.2 H (test code = 753) MEAN CORPUSCULAR HEMOGLOBIN 27.8 pg 25.7-32.2 (BEAKER) (test code = 751) MEAN CORPUSCULAR HEMOGLOBIN CONC 29.4 GM/DL 32.3-36.5 L (BEAKER) (test code = 752) RED CELL DISTRIBUTION WIDTH 16.8 % 11.6-14.4 H (BEAKER) (test code = 412) PLATELET COUNT (BEAKER) (test 583 K/CU MM 150-450 H code = 756) MEAN PLATELET VOLUME (BEAKER) 10.0 fL 9.4-12.4 (test code = 754) NUCLEATED RED BLOOD CELLS 0 /100 WBC 0-0 (BEAKER) (test code = 413) NEUTROPHILS RELATIVE PERCENT 80 % (BEAKER) (test code = 429) LYMPHOCYTES RELATIVE PERCENT 7 % (BEAKER) (test code = 430) MONOCYTES RELATIVE PERCENT 11 % (BEAKER) (test code = 431) EOSINOPHILS RELATIVE PERCENT 0 % (BEAKER) (test code = 432) BASOPHILS RELATIVE PERCENT 0 % (BEAKER) (test code = 437) NEUTROPHILS ABSOLUTE COUNT 11.04 K/ L 1.78-5.38 H (BEAKER) (test code = 670) LYMPHOCYTES ABSOLUTE COUNT 0.93 K/ L 1.32-3.57 L (BEAKER) (test code = 414) MONOCYTES ABSOLUTE COUNT (BEAKER) 1.55 K/ L 0.30-0.82 H (test code = 415) EOSINOPHILS ABSOLUTE COUNT 0.01 K/ L 0.04-0.54 L (BEAKER) (test code = 416) BASOPHILS ABSOLUTE COUNT (BEAKER) 0.01 K/ L 0.01-0.08 (test code = 417) IMMATURE GRANULOCYTES-RELATIVE 1 % 0-1 PERCENT (BEAKER) (test code = 2801) CBC W/PLT COUNT & AUTO [id number] 14:15:00 Test Item Value Reference Range Interpretation Comments WHITE BLOOD CELL COUNT (BEAKER) 13.8 K/ L 3.5-10.5 H (test code = 775) RED BLOOD CELL COUNT (BEAKER) 3.22 M/ L 4.63-6.08 L (test code = 761) HEMOGLOBIN (BEAKER) (test code = 8.9 GM/DL 13.7-17.5 L 410) HEMATOCRIT (BEAKER) (test code = 30.5 % 40.1-51.0 L 411) MEAN CORPUSCULAR VOLUME (BEAKER) 94.7 fL 79.0-92.2 H (test code = 753) MEAN CORPUSCULAR HEMOGLOBIN 27.6 pg 25.7-32.2 (BEAKER) (test code = 751) MEAN CORPUSCULAR HEMOGLOBIN CONC 29.2 GM/DL 32.3-36.5 L (BEAKER) (test code = 752) RED CELL DISTRIBUTION WIDTH 16.9 % 11.6-14.4 H (BEAKER) (test code = 412) PLATELET COUNT (BEAKER) (test 578 K/CU MM 150-450 H code = 756) MEAN PLATELET VOLUME (BEAKER) 9.9 fL 9.4-12.4 (test code = 754) NUCLEATED RED BLOOD CELLS 0 /100 WBC 0-0 (BEAKER) (test code = 413) NEUTROPHILS RELATIVE PERCENT 82 % (BEAKER) (test code = 429) LYMPHOCYTES RELATIVE PERCENT 6 % (BEAKER) (test code = 430) MONOCYTES RELATIVE PERCENT 11 % (BEAKER) (test code = 431) EOSINOPHILS RELATIVE PERCENT 0 % (BEAKER) (test code = 432) BASOPHILS RELATIVE PERCENT 0 % (BEAKER) (test code = 437) NEUTROPHILS ABSOLUTE COUNT 11.24 K/ L 1.78-5.38 H (BEAKER) (test code = 670) LYMPHOCYTES ABSOLUTE COUNT 0.86 K/ L 1.32-3.57 L (BEAKER) (test code = 414) MONOCYTES ABSOLUTE COUNT (BEAKER) 1.49 K/ L 0.30-0.82 H (test code = 415) EOSINOPHILS ABSOLUTE COUNT 0.01 K/ L 0.04-0.54 L (BEAKER) (test code = 416) BASOPHILS ABSOLUTE COUNT (BEAKER) 0.02 K/ L 0.01-0.08 (test code = 417) IMMATURE GRANULOCYTES-RELATIVE 1 % 0-1 PERCENT (BEAKER) (test code = 2801) POCT-GLUCOSE [id number] 13:21:00 Test Item Value Reference Range Interpretation Comments POC-GLUCOSE METER 208 mg/dL 70-[address] [facility] 6720 (BEAKER) (test code = MARIA ESTHER [place] 1538) [address] RAD, CHEST, 1 VIEW, NON [id number] 11:57:00Reason for exam:->SOB, CHF FINAL REPORT Chest one view INDICATION: Shortness of [...] MDReport Verified Date/Time: 09/02/2017 11:57:23 Reading Location: [facility] Radiology Reading Room POCT- GLUCOSE [id number] 06:05:00 Test Item Value Reference Range Interpretation Comments POC-GLUCOSE METER 141 mg/dL 70-110 H TESTED AT [place] [address] ([facility]) (test code = MARIA ESTHER Cash [facility] 1538) [address] [id number] 06:04:00 Test Item Value Reference Range Interpretation Comments PREALBUMIN (BEAKER) (test code = 13 mg/dL 14-45 L 586) POCT-GLUCOSE [id number] 20:43:00 Test Item Value Reference Range Interpretation Comments POC-GLUCOSE METER 179 mg/dL 70-110 H TESTED AT [place] [address] ([facility]) (test code = MARIA ESTHER Cash [facility] 1538) [address] POCT-GLUCOSE [id number] 16:57:00 Test Item Value Reference Range Interpretation Comments POC-GLUCOSE METER 215 mg/dL 70-110 H TESTED AT [place] [address] ([facility]) (test code = MARIA ESTHER Cash [facility] 1538) [address] POCT-GLUCOSE [id number] 11:18:00 Test Item Value Reference Range Interpretation Comments POC-GLUCOSE METER 159 mg/dL 70-110 H TESTED AT [place] [address] ([facility]) (test code = MARGARETUT Shreya [facility] 1538) [address] BASIC METABOLIC [id number] 07:33:00 Test Item Value Reference Range Interpretation Comments SODIUM (BEAKER) 139 meq/L 136-145 (test code = 381) POTASSIUM (BEAKER) 4.1 meq/L 3.5-5.1 (test code = 379) CHLORIDE (BEAKER) 104 meq/L 98-107 (test code = 382) CO2 (BEAKER) (test 25 meq/L 22-29 code = 355) BLOOD UREA NITROGEN 20 mg/dL 7-21 (BEAKER) (test code = 354) CREATININE (BEAKER) 1.26 mg/dL 0.57-1.25 H (test code = 358) GLUCOSE RANDOM 99 mg/dL 70-105 (BEAKER) (test code = 652) CALCIUM (BEAKER) 8.5 mg/dL 8.4-10.2 (test code = 697) EGFR (BEAKER) (test 56 mL/min/1.73 ESTIMA RENUKA GFR IS code = 1092) sq m NOT ACCURATE CREATININE CLEARANCE IN PREDICTING GLOMERULAR FILTRATION RATE . ESTIMATED GFR I S NOT APPLICABLE FOR DIALYSIS PATIEN TS. CBC (HEMOGRAM ONLY)2017-09-01 06:13:00 Test Item Value Reference Range Interpretation Comments WHITE BLOOD CELL COUNT (BEAKER) 6.4 K/ L 3.5-10.5 (test code = 775) RED BLOOD CELL COUNT (BEAKER) 3.42 M/ L 4.63-6.08 L (test code = 761) HEMOGLOBIN (BEAKER) (test code = 9.8 GM/DL 13.7-17.5 L 410) HEMATOCRIT (BEAKER) (test code = 32.8 % 40.1-51.0 L 411) MEAN CORPUSCULAR VOLUME (BEAKER) 95.9 fL 79.0-92.2 H (test code = 753) MEAN CORPUSCULAR HEMOGLOBIN 28.7 pg 25.7-32.2 (BEAKER) (test code = 751) MEAN CORPUSCULAR HEMOGLOBIN CONC 29.9 GM/DL 32.3-36.5 L (BEAKER) (test code = 752) RED CELL DISTRIBUTION WIDTH 16.7 % 11.6-14.4 H (BEAKER) (test code = 412) PLATELET COUNT (BEAKER) (test 391 K/CU MM 150-450 code = 756) MEAN PLATELET VOLUME (BEAKER) 9.9 fL 9.4-12.4 (test code = 754) NUCLEATED RED BLOOD CELLS 0 /100 WBC 0-0 (BEAKER) (test code = 413) POCT-GLUCOSE [id number] 05:51:00 Test Item Value Reference Range Interpretation Comments POC-GLUCOSE METER 122 mg/dL 70-110 H TESTED AT [place] [id number] (BEAKER) (test code = MARIA ESTHER Cash [facility] 1538) [address] POCT-GLUCOSE [id number] 20:13:00 Test Item Value Reference Range Interpretation Comments POC-GLUCOSE METER 212 mg/dL 70-110 H TESTED AT [place] [address] (BEAKER) (test code = BANNER Shreya [facility] 1538) [address] POCT-GLUCOSE [id number] 16:30:00 Test Item Value Reference Range Interpretation Comments POC-GLUCOSE METER 181 mg/dL 70-110 H TESTED AT [place] [address] (BEAKER) (test code = B[place]NER Shreya [facility] 1538) [address] POCT-GLUCOSE [id number] 11:36:00 Test Item Value Reference Range Interpretation Comments POC-GLUCOSE METER 139 mg/dL 70-110 H [facility] [place] [address] [facility] (test code = [place] Shreya [facility] 1538) [address] BASIC METABOLIC [id number] 06:56:00 Test Item Value Reference Range Interpretation Comments SODIUM (BEAKER) 138 meq/L 136-145 (test code = 381) POTASSIUM (BEAKER) 3.6 meq/L 3.5-5.1 (test code = 379) CHLORIDE (BEAKER) 103 meq/L 98-107 (test code = 382) CO2 (BEAKER) (test 26 meq/L 22-29 code = 355) BLOOD UREA NITROGEN 19 mg/dL 7-21 (BEAKER) (test code = 354) CREATININE (BEAKER) 1.10 mg/dL 0.57-1.25 (test code = 358) GLUCOSE RANDOM 97 mg/dL 70-105 (BEAKER) (test code = 652) CALCIUM (BEAKER) 8.1 mg/dL 8.4-10.2 L (test code = 697) EGFR (BEAKER) (test 65 mL/min/1.73 ESTIMA RENUKA GFR IS code = 1092) sq m NOT ACCURATE CREATININE CLEARANCE IN PREDICTING GLOMERULAR FILTRATION RATE . ESTIMATED GFR I S NOT APPLICABLE FOR DIALYSIS PATIEN TS. POCT-GLUCOSE [id number] 06:00:00 Test Item Value Reference Range Interpretation Comments POC-GLUCOSE METER 119 mg/dL 70-110 H TESTED AT [place] [address] (BEAKER) (test code = MARIA ESTHER [place] 1538) [id number] POCT-GLUCOSE [id number] 20:05:00 Test Item Value Reference Range Interpretation Comments POC-GLUCOSE METER 167 mg/dL 70-110 H TESTED AT [place] [address] ([facility]) (test code = MARIA ESTHER [place] 1538) [id number] POCT-GLUCOSE [id number] 17:01:00 Test Item Value Reference Range Interpretation Comments POC-GLUCOSE METER 138 mg/dL 70-110 H TESTED AT [place] [address] ([facility]) (test code = MARIA ESTHER [place] 1538) [id number] POCT-GLUCOSE [id number] 12:07:00 Test Item Value Reference Range Interpretation Comments POC-GLUCOSE METER 201 mg/dL 70-110 H TESTED AT [place] [address] ([facility]) (test code = MARIA ESTHER Cash [facility] 1538) [id number] POCT-GLUCOSE [id number] 06:11:00 Test Item Value Reference Range Interpretation Comments POC-GLUCOSE METER 147 mg/dL 70-110 H TESTED AT [place] [address] ([facility]) (test code = MARIA ESTHER Cash [facility] 1538) [address] RAD, CHEST, 1 VIEW, NON [id number] 22:11:00Reason for exam:->sobShould this be performed at the bedside?->YesFINAL REPORT RAD, CHEST, 1 VIEW, NON DEPT INDICATION: sob [...] MDReport Verified Date/Time: 08/29/2017 22:11:44 Reading Location: [facility] C013Y CT Body Reading Room POCT-GLUCOSE [id number] 20:49:00 Test Item Value Reference Range Interpretation Comments POC-GLUCOSE METER 144 mg/dL 70-110 H [facility] AT [place] [address] [facility] (test code = MARIA ESTHER [address] [place] 1538) [id number] POCT-GLUCOSE [id number] 16:39:00 Test Item Value Reference Range Interpretation Comments POC-GLUCOSE METER 151 mg/dL 70-110 H TESTED AT [place] [address] ([facility]) (test code = MARIA ESTHER [address] [place] 1538) [id number] FUNGUS CULTURE + [id number] 15:05:00 Test Item Value Reference Range Interpretation Comments CULTURE (BEAKER) (test No fungus isolated in code = 1095) 28 days FUNGUS SMEAR ([facility]) No fungi seen (test code = 1406) POCT-GLUCOSE [id number] 11:50:00 Test Item Value Reference Range Interpretation Comments POC-GLUCOSE METER 166 mg/dL 70-110 H TESTED AT [place] [address] ([facility]) (test code = MARIA ESTHER [address] [place] 1538) [id number] POCT-GLUCOSE [id number] 21:39:00 Test Item Value Reference Range Interpretation Comments POC-GLUCOSE METER 136 mg/dL 70-110 H TESTED AT [place] [address] ([facility]) (test code = MARIA ESTHER Cash [facility] 1538) [id number] COMPREHENSIVE METABOLIC [id number] 16:58:00 Test Item Value Reference Range Interpretation Comments TOTAL PROTEIN 6.6 gm/dL 6.0-8.3 (BEAKER) (test code = 770) ALBUMIN (BEAKER) 2.6 g/dL 3.5-5.0 L (test code = 1145) ALKALINE PHOSPHATASE 93 U/L 40-150 (BEAKER) (test code = 346) BILIRUBIN TOTAL 0.4 mg/dL 0.2-1.2 (BEAKER) (test code = 377) SODIUM (BEAKER) (test 134 meq/L 136-145 L code = 381) POTASSIUM (BEAKER) 3.5 meq/L 3.5-5.1 (test code = 379) CHLORIDE (BEAKER) 98 meq/L 98-107 (test code = 382) CO2 (BEAKER) (test 25 meq/L 22-29 code = 355) BLOOD UREA NITROGEN 28 mg/dL 7-21 H (BEAKER) (test code = 354) CREATININE (BEAKER) 1.36 mg/dL 0.57-1.25 H (test code = 358) GLUCOSE RANDOM 117 mg/dL 70-105 H (BEAKER) (test code = 652) CALCIUM (BEAKER) 8.1 mg/dL 8.4-10.2 L (test code = 697) AST (SGOT) (BEAKER) 37 U/L 5-34 H (test code = 353) ALT (SGPT) (BEAKER) 29 U/L 6-55 (test code = 347) EGFR (BEAKER) (test 51 mL/min/1.73 ESTIMA RENUKA GFR IS code = 1092) sq m NOT ACCURATE CREATININE CLEARANCE IN PREDICTING GLOMERULAR FILTRATION RATE . ESTIMATED GFR I S NOT APPLICABLE FOR DIALYSIS PATIEN TS. LACTIC ACID, VENOUS, WHOLE [id number] 16:52:00 Test Item Value Reference Range Interpretation Comments LACTATE BLOOD VENOUS (2) (BEAKER) 1.2 mmol/L 0.5-2.2 (test code = 2872) Effective 09/27/2015: Units/Reference Range ChangeNew: 0.5-2.2 mmol/L Previous: 5-20 mg/dLCBC W/PLT COUNT & AUTO [id number] 16:39:00 Test Item Value Reference Range Interpretation Comments WHITE BLOOD CELL COUNT (BEAKER) 6.6 K/ L 3.5-10.5 (test code = 775) RED BLOOD CELL COUNT (BEAKER) 3.11 M/ L 4.63-6.08 L (test code = 761) HEMOGLOBIN (BEAKER) (test code = 9.0 GM/DL 13.7-17.5 L 410) HEMATOCRIT (BEAKER) (test code = 30.1 % 40.1-51.0 L 411) MEAN CORPUSCULAR VOLUME (BEAKER) 96.8 fL 79.0-92.2 H (test code = 753) MEAN CORPUSCULAR HEMOGLOBIN 28.9 pg 25.7-32.2 (BEAKER) (test code = 751) MEAN CORPUSCULAR HEMOGLOBIN CONC 29.9 GM/DL 32.3-36.5 L (BEAKER) (test code = 752) RED CELL DISTRIBUTION WIDTH 16.1 % 11.6-14.4 H (BEAKER) (test code = 412) PLATELET COUNT (BEAKER) (test 367 K/CU MM 150-450 code = 756) MEAN PLATELET VOLUME (BEAKER) 9.4 fL 9.4-12.4 (test code = 754) NUCLEATED RED BLOOD CELLS 0 /100 WBC 0-0 (BEAKER) (test code = 413) NEUTROPHILS RELATIVE PERCENT 78 % (BEAKER) (test code = 429) LYMPHOCYTES RELATIVE PERCENT 12 % (BEAKER) (test code = 430) MONOCYTES RELATIVE PERCENT 9 % (BEAKER) (test code = 431) EOSINOPHILS RELATIVE PERCENT 1 % (BEAKER) (test code = 432) BASOPHILS RELATIVE PERCENT 0 % (BEAKER) (test code = 437) NEUTROPHILS ABSOLUTE COUNT 5.18 K/ L 1.78-5.38 (BEAKER) (test code = 670) LYMPHOCYTES ABSOLUTE COUNT 0.79 K/ L 1.32-3.57 L (BEAKER) (test code = 414) MONOCYTES ABSOLUTE COUNT (BEAKER) 0.60 K/ L 0.30-0.82 (test code = 415) EOSINOPHILS ABSOLUTE COUNT 0.03 K/ L 0.04-0.54 L (BEAKER) (test code = 416) BASOPHILS ABSOLUTE COUNT (BEAKER) 0.01 K/ L 0.01-0.08 (test code = 417) IMMATURE GRANULOCYTES-RELATIVE 1 % 0-1 PERCENT (BEAKER) (test code = 2801) POCT-GLUCOSE [id number] 16:20:00 Test Item Value Reference Range Interpretation Comments POC-GLUCOSE METER 136 mg/dL 70-110 H TESTED AT [place] [address] ([facility]) ([facility] = [facility] 1538) [address] POCT-GLUCOSE [id number] 11:45:00 Test Item Value Reference Range Interpretation Comments POC-GLUCOSE METER 157 mg/dL 70-110 H TEST[facility] [place] [address] [facility] (test code = [facility] Shreya [facility] 1538) [address]115 POCT-GLUCOSE [id number] 06:31:00 Test Item Value Reference Range Interpretation Comments POC-GLUCOSE METER 131 mg/dL 70-110 H TESTED AT [place] [address] ([facility]) (test code = [facility] Shreya [facility] 1538) 7[address] POCT-GLUCOSE [id number] 20:28:00 Test Item Value Reference Range Interpretation Comments POC-GLUCOSE METER 173 mg/dL 70-110 H TESTED AT [place] [address] ([facility]) (test code = MARIA ESTHER [place] 1538) [address] POCT-GLUCOSE [id number] 16:43:00 Test Item Value Reference Range Interpretation Comments POC-GLUCOSE METER 191 mg/dL 70-110 H TESTED AT [place] [address] ([facility]) (test code = MARIA ESTHER [place] 1538) 6[address] POCT-GLUCOSE [id number] 11:59:00 Test Item Value Reference Range Interpretation Comments POC-GLUCOSE METER 152 mg/dL 70-110 H TESTED AT [place] [address] ([facility]) (test code = MARIA ESTHER Cash [place] 1538) [address] RAD, CHEST, 1 VIEW, NON [id number] 11:08:00Reason for exam:- >dyspneaShould this be performed at the bedside?->YesFINAL REPORT Two frontal chest images compared to August 20 Discussion: There i s cardiac prominence and pulmonary congestion with probable small left effusion. No pneumothorax. IMPRESSIONS: No change Signed: Taty Osborne Verified Date/Time: 08/27/2017 11:08:36 Reading Location: [facility] Radiology Reading Room POCT-GLUCOSE [id number] 06:00:00 Test Item Value Reference Range Interpretation Comments POC-GLUCOSE METER 129 mg/dL 70-110 H TESTED AT [place] [address] ([facility]) (test code = MARIA ESTHER Cash [place] 1538) [address] [id number] 05:12:00 Test Item Value Reference Range Interpretation Comments PREALBUMIN ([facility]) (test code = 10 mg/dL 14-45 L 586) POCT-GLUCOSE [id number] 20:50:00 Test Item Value Reference Range Interpretation Comments POC-GLUCOSE METER 177 mg/dL 70-110 H TESTED AT [place] [address] ([facility]) (test code = MARIA ESTHER Cash [place] 1538) [address] POCT-GLUCOSE [id number] 16:19:00 Test Item Value Reference Range Interpretation Comments POC-GLUCOSE METER 162 mg/dL 70-110 H TESTED AT [place] [address] ([facility]) (test code = MARIA ESTHER Cash [facility] 1538) 82407 POCT-GLUCOSE [id number] 11:44:00 Test Item Value Reference Range Interpretation Comments POC-GLUCOSE METER 182 mg/dL 70-110 H TESTED AT [place] [address] ([facility]) (test code = MARIA ESTHER Cash [facility] 1538) 06073 POCT-GLUCOSE [id number] 06:07:00 Test Item Value Reference Range Interpretation Comments POC-GLUCOSE METER 120 mg/dL 70-110 H TESTED AT [place] [address] ([facility]) (test code = MARIA ESTHER Cash [facility] 1538) 63990 POCT-GLUCOSE [id number] 20:48:00 Test Item Value Reference Range Interpretation Comments POC-GLUCOSE METER 172 mg/dL 70-110 H TESTED AT [place] [address] ([facility]) (test [facility] = [facility] 1538) 39886 POCT-GLUCOSE [id number] 16:17:00 Test Item Value Reference Range Interpretation Comments POC-GLUCOSE METER 156 mg/dL 70-110 H TESTED AT [place] [address] ([facility]) (test code = [facility] Shreya [facility] 1538) 8[address] POCT-GLUCOSE [id number] 11:33:00 Test Item Value Reference Range Interpretation Comments POC-GLUCOSE METER 203 mg/dL 70-110 H TESTED AT [place] [address] ([facility]) (test code = [facility] Shreya [facility] 1538) 74493 HEPATIC FUNCTION [id number] 11:30:00 Test Item Value Reference Range Interpretation Comments TOTAL PROTEIN (BEAKER) (test code = 6.5 gm/dL 6.0-8.3 770) ALBUMIN (BEAKER) (test code = 1145) 2.6 g/dL 3.5-5.0 L BILIRUBIN TOTAL (BEAKER) (test code 0.4 mg/dL 0.2-1.2 = 377) BILIRUBIN DIRECT (BEAKER) (test 0.3 mg/dL 0.1-0.5 code = 706) ALKALINE PHOSPHATASE (BEAKER) (test 105 U/L 40-150 code = 346) AST (SGOT) (BEAKER) (test code = 26 U/L 5-34 353) ALT (SGPT) (BEAKER) (test code = 21 U/L 6-55 347) BASIC METABOLIC [id number] 07:01:00 Test Item Value Reference Range Interpretation Comments SODIUM (BEAKER) 136 meq/L 136-145 (test code = 381) POTASSIUM (BEAKER) 3.7 meq/L 3.5-5.1 (test code = 379) CHLORIDE (BEAKER) 102 meq/L 98-107 (test code = 382) CO2 (BEAKER) (test 25 meq/L 22-29 code = 355) BLOOD UREA NITROGEN 23 mg/dL 7-21 H (BEAKER) (test code = 354) CREATININE (BEAKER) 1.22 mg/dL 0.57-1.25 (test code = 358) GLUCOSE RANDOM 120 mg/dL 70-105 H (BEAKER) (test code = 652) CALCIUM (BEAKER) 8.4 mg/dL 8.4-10.2 (test code = 697) EGFR (BEAKER) (test 58 mL/min/1.73 ESTIMA RENUKA GFR IS code = 1092) sq m NOT ACCURATE CREATININE CLEARANCE IN PREDICTING GLOMERULAR FILTRATION RATE . ESTIMATED GFR I S NOT APPLICABLE FOR DIALYSIS PATIEN TS. CBC (HEMOGRAM ONLY)2017-08-25 06:32:00 Test Item Value Reference Range Interpretation Comments WHITE BLOOD CELL COUNT (BEAKER) 7.0 K/ L 3.5-10.5 (test code = 775) RED BLOOD CELL COUNT (BEAKER) 3.14 M/ L 4.63-6.08 L (test code = 761) HEMOGLOBIN (BEAKER) (test code = 9.2 GM/DL 13.7-17.5 L 410) HEMATOCRIT (BEAKER) (test code = 31.3 % 40.1-51.0 L 411) MEAN CORPUSCULAR VOLUME (BEAKER) 99.7 fL 79.0-92.2 H (test code = 753) MEAN CORPUSCULAR HEMOGLOBIN 29.3 pg 25.7-32.2 (BEAKER) (test code = 751) MEAN CORPUSCULAR HEMOGLOBIN CONC 29.4 GM/DL 32.3-36.5 L (BEAKER) (test code = 752) RED CELL DISTRIBUTION WIDTH 16.1 % 11.6-14.4 H (BEAKER) (test code = 412) PLATELET COUNT (BEAKER) (test 362 K/CU MM 150-450 code = 756) MEAN PLATELET VOLUME (BEAKER) 9.8 fL 9.4-12.4 (test code = 754) NUCLEATED RED BLOOD CELLS 0 /100 WBC 0-0 ([facility]) (test code = 413) POCT-GLUCOSE [id number] 06:17:00 Test Item Value Reference Range Interpretation Comments POC-GLUCOSE METER 152 mg/dL 70-110 H TESTED AT [place] [address] ([facility]) (test code = MARGARETMAYA [place] 1538) [address] POCT-GLUCOSE [id number] 20:39:00 Test Item Value Reference Range Interpretation Comments POC-GLUCOSE METER 249 mg/dL 70-110 H TESTED AT [place] [address] ([facility]) (test code = MARGARETMAYA [place] 1538) [address] POCT-GLUCOSE [id number] 17:12:00 Test Item Value Reference Range Interpretation Comments POC-GLUCOSE METER 163 mg/dL 70-110 H TESTED AT [place] [address] ([facility]) (test code = MARGARETMAYA [place] 1538) 92[address] POCT-GLUCOSE [id number] 11:20:00 Test Item Value Reference Range Interpretation Comments POC-GLUCOSE METER 190 mg/dL 70-110 H TESTED AT [place] [address] ([facility]) (test code = MARGARETMAYA [place] 1538) 76182 POCT-GLUCOSE [id number] 06:16:00 Test Item Value Reference Range Interpretation Comments POC-GLUCOSE METER 126 mg/dL 70-110 H TESTED AT [place] [address] ([facility]) (test code = MARGARETMAYA [place] 1538) 6[address] POCT-GLUCOSE [id number] 20:49:00 Test Item Value Reference Range Interpretation Comments POC-GLUCOSE METER 139 mg/dL 70-110 H TESTED AT [place] [address] ([facility]) (test code = MARGARETMAYA Cash [place] 1538) 12[address] POCT-GLUCOSE [id number] 16:32:00 Test Item Value Reference Range Interpretation Comments POC-GLUCOSE METER 161 mg/dL 70-110 H TESTED AT [place] [address] ([facility]) (test code = MARGARETMAYA [place] 1538) [address]53 POCT-GLUCOSE [id number] 12:02:00 Test Item Value Reference Range Interpretation Comments POC-GLUCOSE METER 149 mg/dL 70-110 H TESTED AT [facility] 6720 (BEAKER) (test code = MARIA ESTHER [place] 1538) 17059 CBC W/PLT COUNT & AUTO [id number] 07:02:00 Test Item Value Reference Range Interpretation Comments WHITE BLOOD CELL COUNT (BEAKER) 8.4 K/ L 3.5-10.5 (test code = 775) RED BLOOD CELL COUNT (BEAKER) 3.07 M/ L 4.63-6.08 L (test code = 761) HEMOGLOBIN (BEAKER) (test code = 9.1 GM/DL 13.7-17.5 L 410) HEMATOCRIT (BEAKER) (test code = 30.9 % 40.1-51.0 L 411) MEAN CORPUSCULAR VOLUME (BEAKER) 100.7 fL 79.0-92.2 H (test code = 753) MEAN CORPUSCULAR HEMOGLOBIN 29.6 pg 25.7-32.2 (BEAKER) (test code = 751) MEAN CORPUSCULAR HEMOGLOBIN CONC 29.4 GM/DL 32.3-36.5 L (BEAKER) (test code = 752) RED CELL DISTRIBUTION WIDTH 16.1 % 11.6-14.4 H (BEAKER) (test code = 412) PLATELET COUNT (BEAKER) (test 374 K/CU MM 150-450 code = 756) MEAN PLATELET VOLUME (BEAKER) 9.8 fL 9.4-12.4 (test code = 754) NUCLEATED RED BLOOD CELLS 0 /100 WBC 0-0 (BEAKER) (test code = 413) NEUTROPHILS RELATIVE PERCENT 78 % (BEAKER) (test code = 429) LYMPHOCYTES RELATIVE PERCENT 9 % (BEAKER) (test code = 430) MONOCYTES RELATIVE PERCENT 10 % (BEAKER) (test code = 431) EOSINOPHILS RELATIVE PERCENT 3 % (BEAKER) (test code = 432) BASOPHILS RELATIVE PERCENT 1 % (BEAKER) (test code = 437) NEUTROPHILS ABSOLUTE COUNT 6.53 K/ L 1.78-5.38 H (BEAKER) (test code = 670) LYMPHOCYTES ABSOLUTE COUNT 0.75 K/ L 1.32-3.57 L (BEAKER) (test code = 414) MONOCYTES ABSOLUTE COUNT (BEAKER) 0.81 K/ L 0.30-0.82 (test code = 415) EOSINOPHILS ABSOLUTE COUNT 0.22 K/ L 0.04-0.54 (BEAKER) (test code = 416) BASOPHILS ABSOLUTE COUNT (BEAKER) 0.04 K/ L 0.01-0.08 (test code = 417) IMMATURE GRANULOCYTES-RELATIVE 1 % 0-1 PERCENT (BEAKER) (test code = 2801) BASIC METABOLIC [id number] 06:59:00 Test Item Value Reference Range Interpretation Comments SODIUM (BEAKER) 136 meq/L 136-145 (test code = 381) POTASSIUM (BEAKER) 3.8 meq/L 3.5-5.1 (test code = 379) CHLORIDE (BEAKER) 104 meq/L 98-107 (test code = 382) CO2 (BEAKER) (test 23 meq/L 22-29 code = 355) BLOOD UREA NITROGEN 26 mg/dL 7-21 H (BEAKER) (test code = 354) CREATININE (BEAKER) 1.30 mg/dL 0.57-1.25 H (test code = 358) GLUCOSE RANDOM 124 mg/dL 70-105 H (BEAKER) (test code = 652) CALCIUM (BEAKER) 8.6 mg/dL 8.4-10.2 (test code = 697) EGFR (BEAKER) (test 54 mL/min/1.73 ESTIMA RENUKA GFR IS code = 1092) sq m NOT ACCURATE CREATININE CLEARANCE IN PREDICTING GLOMERULAR FILTRATION RATE . ESTIMATED GFR I S NOT APPLICABLE FOR DIALYSIS PATIEN TS. POCT-GLUCOSE [id number] 06:40:00 Test Item Value Reference Range Interpretation Comments POC-GLUCOSE METER 158 mg/dL 70-[address] [facility] 6720 ([facility] (test code = MARIA ESTHER [place] 1538) [address] POCT-GLUCOSE [id number] 20:50:00 Test Item Value Reference Range Interpretation Comments POC-GLUCOSE METER 174 mg/dL 70-[address] [facility] 67[address] ([facility] (test code = MAR[place] ESTHER [place] 1538) 08158 POCT-GLUCOSE [id number] 17:01:00 Test Item Value Reference Range Interpretation Comments POC-GLUCOSE METER 130 mg/dL 70-[address] [facility] 6720 ([facility] (test code = MARIA ESTHER [place] 1538) 17600 POCT-GLUCOSE [id number] 12:02:00 Test Item Value Reference Range Interpretation Comments POC-GLUCOSE METER 194 mg/dL 70-110 H TESTED AT [place] [address] ([facility]) (test code = MARIA ESTHER Cash [place] 1538) [address]46 POCT-GLUCOSE [id number] 06:25:00 Test Item Value Reference Range Interpretation Comments POC-GLUCOSE METER 130 mg/dL 70-110 H TESTED AT [place] [address] ([facility]) (test code = MARIA ESTHER Cash [place] 1538) 54950 POCT-GLUCOSE [id number] 19:53:00 Test Item Value Reference Range Interpretation Comments POC-GLUCOSE METER 188 mg/dL 70-110 H TESTED AT [place] [address] ([facility]) (test code = MARIA ESTHER Cash [place] 1538) 47164 POCT-GLUCOSE [id number] 16:24:00 Test Item Value Reference Range Interpretation Comments POC-GLUCOSE METER 210 mg/dL 70-110 H TESTED AT [place] [address] ([facility]) (test code = MARIA ESTHER Cash [place] 1538) 19276 POCT-GLUCOSE [id number] 11:20:00 Test Item Value Reference Range Interpretation Comments POC-GLUCOSE METER 186 mg/dL 70-110 H TESTED AT [place] [address] ([facility]) (test code = MARIA ESTHER Cash [place] 1538) [address] POCT-GLUCOSE [id number] 06:18:00 Test Item Value Reference Range Interpretation Comments POC-GLUCOSE METER 127 mg/dL 70-110 H TESTED AT [place] [address] ([facility]) (test code = MARIA ESTHER Cash [place] 1538) 58341 POCT-GLUCOSE [id number] 20:48:00 Test Item Value Reference Range Interpretation Comments POC-GLUCOSE METER 166 mg/dL 70-110 H TESTED AT [place] [address] ([facility]) (test code = MARIA ESTHER Cash [place] 1538) [address]87 POCT-GLUCOSE [id number] 16:51:00 Test Item Value Reference Range Interpretation Comments POC-GLUCOSE METER 153 mg/dL 70-110 H TESTED AT [place] [address] ([facility]) (test code = MARIA ESTHER Cash [place] 1538) [address] B-TYPE NATRIURETIC FACTOR (BNP)2017-08-20 14:00:00 Test Item Value Reference Range Interpretation Comments B-TYPE NATRIURETIC PEPTIDE ([facility]) 422 pg/mL 0-100 H (test code = 700) POCT-GLUCOSE [id number] 12:02:00 Test Item Value Reference Range Interpretation Comments POC-GLUCOSE METER 203 mg/dL 70-[address] [facility] 67 ([facility]) (test code = MARIA ESTHER [place] 1538) [address] RAD, CHEST, 1 VIEW, NON [id number] 08:19:00Reason for exam:->pulm edema fupShould this be performed at the bedside?->YesFINAL REPORT Chest one view INDICATION: Pulmonary edema. Follow-up. COMPARISON: 08/15/2017 IMPRESSION: The cardiac silhouette is enlarged. Aortic ectasia/tortuosity and mediastinal widening is stable. Median sternotomy changes are noted. There is pulmonary vascular congestion with interstitial and ground glass opacities suggestive of edema. Superimposed pneumonitis cannot be excl uded, however. Dependent pleural effusions have likely redistributed. No pneumothorax is seen. Signed: Harriett Garnica MDReport Verified Date/Time: 08/20/2017 08:19:33 Reading Location: [facility] Radiology Reading Room POCT- GLUCOSE [id number] 05:10:00 Test Item Value Reference Range Interpretation Comments POC-GLUCOSE METER 138 mg/dL 70-110 H TESTED AT [place] [address] ([facility]) (test code = MARIA ESTHER Cash [facility] 1538) 39862 POCT-GLUCOSE [id number] 21:20:00 Test Item Value Reference Range Interpretation Comments POC-GLUCOSE METER 151 mg/dL 70-110 H TESTED AT [place] [address] ([facility]) (test code = MARIA ESTHER Cash [place] 1538) [address] POCT-GLUCOSE [id number] 18:02:00 Test Item Value Reference Range Interpretation Comments POC-GLUCOSE METER 227 mg/dL 70-110 H TESTED AT [place] [address] ([facility]) (test code = MARIA ESTHER Cash [facility] 1538) 04558 POCT-GLUCOSE [id number] 11:42:00 Test Item Value Reference Range Interpretation Comments POC-GLUCOSE METER 212 mg/dL 70-[address] [facility] 6720 (VINICIUS) (test code = MARIA ESTHER Cash [facility] 1538) 71560 VITAMIN B12 AND [id number] 07:11:00 Test Item Value Reference Range Interpretation Comments VITAMIN B12 ([facility]IC[facility]US) (test code = 654 pg/mL 213-816 774) FOLATE (VINICIUS) (test code = 362) 4.4 ng/mL >=7.0 L POCT-GLUCOSE [id number] 06:14:00 Test Item Value Reference Range Interpretation Comments POC-GLUCOSE METER 144 mg/dL 70-[address] [facility] 6720 (VINICIUS) (test code = MARIA ESTHER Cash [facility] 1538) [address] CT, CHEST, WITHOUT [id number] 22:14:00FINAL REPORT CT, CHEST, WITHOUT CONTRAST INDICATION: [...] MDReport Verified Date/Time: 08/18/2017 22:14:14 Reading Location: [facility] C013Y CT Body Reading Room POCT-GLUCOSE [id number] 21:03:00 Test Item Value Reference Range Interpretation Comments POC-GLUCOSE METER 179 mg/dL 70-110 H TESTED AT [place] [address] ([facility] (test code = [facility] 1538) 45507 POCT-GLUCOSE [id number] 16:32:00 Test Item Value Reference Range Interpretation Comments POC-GLUCOSE METER 147 mg/dL 70-110 H TESTED AT [place] [address] ([facility]) (test code = [facility] 1538) 44513 POCT-GLUCOSE [id number] 12:07:00 Test Item Value Reference Range Interpretation Comments POC-GLUCOSE METER 171 mg/dL 70-110 H TESTED AT [place] [address] ([facility]) (test code = [facility] 1538) 13699 BASIC METABOLIC [id number] 06:31:00 Test Item Value Reference Range Interpretation Comments SODIUM (BEAKER) 136 meq/L 136-145 (test code = 381) POTASSIUM (BEAKER) 4.2 meq/L 3.5-5.1 (test code = 379) CHLORIDE (BEAKER) 104 meq/L 98-107 (test code = 382) CO2 (BEAKER) (test 23 meq/L 22-29 code = 355) BLOOD UREA NITROGEN 27 mg/dL 7-21 H (BEAKER) (test code = 354) CREATININE (BEAKER) 1.28 mg/dL 0.57-1.25 H (test code = 358) GLUCOSE RANDOM 123 mg/dL 70-105 H (BEAKER) (test code = 652) CALCIUM (BEAKER) 8.4 mg/dL 8.4-10.2 (test code = 697) EGFR (BEAKER) (test 55 mL/min/1.73 ESTIMA RENUKA GFR IS code = 1092) sq m NOT ACCURATE CREATININE CLEARANCE IN PREDICTING GLOMERULAR FILTRATION RATE . ESTIMATED GFR I S NOT APPLICABLE FOR DIALYSIS PATIEN TS. POCT-GLUCOSE [id number] 05:42:00 Test Item Value Reference Range Interpretation Comments POC-GLUCOSE METER 132 mg/dL 70-110 H TESTED AT [place] [address] ([facility] (test code = [facility] 1538) 28468 CBC W/PLT COUNT & AUTO [id number] 05:39:00 Test Item Value Reference Range Interpretation Comments WHITE BLOOD CELL COUNT (BEAKER) 8.6 K/ L 3.5-10.5 (test code = 775) RED BLOOD CELL COUNT (BEAKER) 2.69 M/ L 4.63-6.08 L (test code = 761) HEMOGLOBIN (BEAKER) (test code = 8.3 GM/DL 13.7-17.5 L 410) HEMATOCRIT (BEAKER) (test code = 27.6 % 40.1-51.0 L 411) MEAN CORPUSCULAR VOLUME (BEAKER) 102.6 fL 79.0-92.2 H (test code = 753) MEAN CORPUSCULAR HEMOGLOBIN 30.9 pg 25.7-32.2 (BEAKER) (test code = 751) MEAN CORPUSCULAR HEMOGLOBIN CONC 30.1 GM/DL 32.3-36.5 L (BEAKER) (test code = 752) RED CELL DISTRIBUTION WIDTH 16.6 % 11.6-14.4 H (BEAKER) (test code = 412) PLATELET COUNT (BEAKER) (test 407 K/CU MM 150-450 code = 756) MEAN PLATELET VOLUME (BEAKER) 9.4 fL 9.4-12.4 (test code = 754) NUCLEATED RED BLOOD CELLS 0 /100 WBC 0-0 (BEAKER) (test code = 413) NEUTROPHILS RELATIVE PERCENT 76 % (BEAKER) (test code = 429) LYMPHOCYTES RELATIVE PERCENT 11 % (BEAKER) (test code = 430) MONOCYTES RELATIVE PERCENT 7 % (BEAKER) (test code = 431) EOSINOPHILS RELATIVE PERCENT 6 % (BEAKER) (test code = 432) BASOPHILS RELATIVE PERCENT 1 % (BEAKER) (test code = 437) NEUTROPHILS ABSOLUTE COUNT 6.51 K/ L 1.78-5.38 H (BEAKER) (test code = 670) LYMPHOCYTES ABSOLUTE COUNT 0.90 K/ L 1.32-3.57 L (BEAKER) (test code = 414) MONOCYTES ABSOLUTE COUNT (BEAKER) 0.58 K/ L 0.30-0.82 (test code = 415) EOSINOPHILS ABSOLUTE COUNT 0.51 K/ L 0.04-0.54 (BEAKER) (test code = 416) BASOPHILS ABSOLUTE COUNT (BEAKER) 0.04 K/ L 0.01-0.08 (test code = 417) IMMATURE GRANULOCYTES-RELATIVE 1 % 0-1 PERCENT (BEAKER) (test code = 2801) POCT-GLUCOSE [id number] 20:21:00 Test Item Value Reference Range Interpretation Comments POC-GLUCOSE METER 168 mg/dL 70-[address] [facility] 67 (BEAKER) (test code = MARIA ESTHER Cash [facility] 1538) [id number] POCT-GLUCOSE [id number] 17:12:00 Test Item Value Reference Range Interpretation Comments POC-GLUCOSE METER 149 mg/dL 70-110 H [facility] AT [place] [address] [facility] (test code = MARIA ESTHER Cash [facility] 1538) [id number] POCT-GLUCOSE [id number] 11:46:00 Test Item Value Reference Range Interpretation Comments POC-GLUCOSE METER 138 mg/dL 70-110 H TEST[facility] AT [place] [address] [facility] (test code = MARGARETUT Shreya [facility] 1538) [id number] BASIC METABOLIC [id number] 08:56:00 Test Item Value Reference Range Interpretation Comments SODIUM (BEAKER) 137 meq/L 136-145 (test code = 381) POTASSIUM (BEAKER) 4.0 meq/L 3.5-5.1 (test code = 379) CHLORIDE (BEAKER) 106 meq/L 98-107 (test code = 382) CO2 (BEAKER) (test 22 meq/L 22-29 code = 355) BLOOD UREA NITROGEN 28 mg/dL 7-21 H (BEAKER) (test code = 354) CREATININE (BEAKER) 1.34 mg/dL 0.57-1.25 H (test code = 358) GLUCOSE RANDOM 124 mg/dL 70-105 H (BEAKER) (test code = 652) CALCIUM (BEAKER) 8.2 mg/dL 8.4-10.2 L (test code = 697) EGFR (BEAKER) (test 52 mL/min/1.73 ESTIMA RENUKA GFR IS code = 1092) sq m NOT ACCURATE CREATININE CLEARANCE IN PREDICTING GLOMERULAR FILTRATION RATE . ESTIMATED GFR I S NOT APPLICABLE FOR DIALYSIS PATIEN TS. POCT-GLUCOSE [id number] 05:44:00 Test Item Value Reference Range Interpretation Comments POC-GLUCOSE METER 139 mg/dL 70-110 H TESTED AT [place] [address] ([facility]) (test code = MARIA ESTHER Cash [place] 1538) [id number] POCT-GLUCOSE [id number] 20:33:00 Test Item Value Reference Range Interpretation Comments POC-GLUCOSE METER 145 mg/dL 70-110 H TESTED AT [place] [address] ([facility]) (test code = MARIA ESTHER Cash [place] 1538) [id number] POCT-GLUCOSE [id number] 16:39:00 Test Item Value Reference Range Interpretation Comments POC-GLUCOSE METER 177 mg/dL 70-110 H TESTED AT [place] [address] ([facility]) (test code = MARIA ESTHER Cash [place] 1538) [address] POCT-GLUCOSE [id number] 12:01:00 Test Item Value Reference Range Interpretation Comments POC-GLUCOSE METER 200 mg/dL 70-110 H TESTED AT [place] [address] ([facility]) (test code = MARIA ESTHER [place] 1538) [id number] POCT-GLUCOSE [id number] 05:56:00 Test Item Value Reference Range Interpretation Comments POC-GLUCOSE METER 167 mg/dL 70-110 H TESTED AT [place] [address] ([facility]) (test code = MARIA ESTHER [place] 1538) [id number] POCT-GLUCOSE [id number] 20:34:00 Test Item Value Reference Range Interpretation Comments POC-GLUCOSE METER 217 mg/dL 70-110 H TESTED AT [place] [address] ([facility]) (test code = MARIA ESTHER [place] 1538) [address] POCT-GLUCOSE [id number] 18:24:00 Test Item Value Reference Range Interpretation Comments POC-GLUCOSE METER 190 mg/dL 70-110 H TESTED AT [place] [address] ([facility]) (test code = MARIA ESTHER [place] 1538) [address] POCT-GLUCOSE [id number] 16:22:00 Test Item Value Reference Range Interpretation Comments POC-GLUCOSE METER 233 mg/dL 70-110 H TESTED AT [place] [address] ([facility]) (test code = MARIA ESTHER Cash [place] 1538) [address] POCT-GLUCOSE [id number] 12:13:00 Test Item Value Reference Range Interpretation Comments POC-GLUCOSE METER 235 mg/dL 70-110 H TESTED AT [place] [address] ([facility]) (test code = MARIA ESTHER Cash [place] 1538) [address] RAD, CHEST, 2 [id number] 09:16:00Reason for exam:->sobFINAL REPORT Two frontal and one lateral chest images compared to August 14 Discussion: Cardiomegaly and pulmonary congestion are present. I could not exclude a small right effusion although pleural thickening would have a similar appearance. No pneumothorax. IMPRESSIONS: No change Signed: Taty Osborne Verified Date/Time: 08/15/2017 09:16:20 Reading Location: [facility] Reading Room BASIC METABOLIC [id number] 06:45:00 Test Item Value Reference Range Interpretation Comments SODIUM (BEAKER) 136 meq/L 136-145 (test code = 381) POTASSIUM (BEAKER) 4.3 meq/L 3.5-5.1 (test code = 379) CHLORIDE (BEAKER) 106 meq/L 98-107 (test code = 382) CO2 (BEAKER) (test 21 meq/L 22-29 L code = 355) BLOOD UREA NITROGEN 32 mg/dL 7-21 H (BEAKER) (test code = 354) CREATININE (BEAKER) 1.41 mg/dL 0.57-1.25 H (test code = 358) GLUCOSE RANDOM 127 mg/dL 70-105 H (BEAKER) (test code = 652) CALCIUM (BEAKER) 8.3 mg/dL 8.4-10.2 L (test code = 697) EGFR (BEAKER) (test 49 mL/min/1.73 ESTIMA RENUKA GFR IS code = 1092) sq m NOT ACCURATE CREATININE CLEARANCE IN PREDICTING GLOMERULAR FILTRATION RATE . ESTIMATED GFR I S NOT APPLICABLE FOR DIALYSIS PATIEN TS. CBC W/PLT COUNT & AUTO [id number] 05:31:00 Test Item Value Reference Range Interpretation Comments WHITE BLOOD CELL COUNT (BEAKER) 11.0 K/ L 3.5-10.5 H (test code = 775) RED BLOOD CELL COUNT (BEAKER) 2.56 M/ L 4.63-6.08 L (test code = 761) HEMOGLOBIN (BEAKER) (test code = 7.9 GM/DL 13.7-17.5 L 410) HEMATOCRIT (BEAKER) (test code = 26.4 % 40.1-51.0 L 411) MEAN CORPUSCULAR VOLUME (BEAKER) 103.1 fL 79.0-92.2 H (test code = 753) MEAN CORPUSCULAR HEMOGLOBIN 30.9 pg 25.7-32.2 (BEAKER) (test code = 751) MEAN CORPUSCULAR HEMOGLOBIN CONC 29.9 GM/DL 32.3-36.5 L (BEAKER) (test code = 752) RED CELL DISTRIBUTION WIDTH 16.3 % 11.6-14.4 H (BEAKER) (test code = 412) PLATELET COUNT (BEAKER) (test 470 K/CU MM 150-450 H code = 756) MEAN PLATELET VOLUME (BEAKER) 9.7 fL 9.4-12.4 (test code = 754) NUCLEATED RED BLOOD CELLS 0 /100 WBC 0-0 (BEAKER) (test code = 413) NEUTROPHILS RELATIVE PERCENT 79 % (BEAKER) (test code = 429) LYMPHOCYTES RELATIVE PERCENT 9 % (BEAKER) (test code = 430) MONOCYTES RELATIVE PERCENT 7 % (BEAKER) (test code = 431) EOSINOPHILS RELATIVE PERCENT 5 % (BEAKER) (test code = 432) BASOPHILS RELATIVE PERCENT 1 % (BEAKER) (test code = 437) NEUTROPHILS ABSOLUTE COUNT 8.65 K/ L 1.78-5.38 H (BEAKER) (test code = 670) LYMPHOCYTES ABSOLUTE COUNT 0.99 K/ L 1.32-3.57 L (BEAKER) (test code = 414) MONOCYTES ABSOLUTE COUNT (BEAKER) 0.76 K/ L 0.30-0.82 (test code = 415) EOSINOPHILS ABSOLUTE COUNT 0.51 K/ L 0.04-0.54 (BEAKER) (test code = 416) BASOPHILS ABSOLUTE COUNT (BEAKER) 0.06 K/ L 0.01-0.08 (test code = 417) IMMATURE GRANULOCYTES-RELATIVE 1 % 0-1 PERCENT (BEAKER) (test code = 2801) POCT-GLUCOSE [id number] 03:46:00 Test Item Value Reference Range Interpretation Comments POC-GLUCOSE METER 235 mg/dL 70-[address] [facility] 6720 (BEAKER) (test code = MARIA ESTHER [place] 1538) [address] POCT-GLUCOSE [id number] 20:54:00 Test Item Value Reference Range Interpretation Comments POC-GLUCOSE METER 205 mg/dL 70-110 H TESTED AT [place] [address] ([facility]) (test code = MARIA ESTHER Cash [facility] 1538) [address] RAD, CHEST, 1 VIEW, NON [id number] 15:21:00Reason for exam:->sobShould this be performed at [...] are seen in the spine. Signed: Candelario Mcdaniels Verified Date/Time: 08/14/2017 15:21:32 Reading Location: [facility] Radiology Reading Room POCT-GLUCOSE [id number] 13:31:00 Test Item Value Reference Range Interpretation Comments POC-GLUCOSE METER 229 mg/dL 70-110 H TESTED AT [place] [address] ([facility]) (test code = MARIA ESTHER Cash [facility] 1538) [id number] POCT-GLUCOSE [id number] 10:21:00 Test Item Value Reference Range Interpretation Comments POC-GLUCOSE METER 189 mg/dL 70-110 H TESTED AT [place] [address] ([facility]) (test code = MARIA ESTHER Cash [facility] 1538) [id number] 04:50:00 Test Item Value Reference Range Interpretation Comments MAGNESIUM (BEAKER) (test code = 1.6 mg/dL 1.6-2.6 627) BASIC METABOLIC [id number] 04:50:00 Test Item Value Reference Range Interpretation Comments SODIUM (BEAKER) 132 meq/L 136-145 L (test code = 381) POTASSIUM (BEAKER) 4.2 meq/L 3.5-5.1 (test code = 379) CHLORIDE (BEAKER) 105 meq/L 98-107 (test code = 382) CO2 (BEAKER) (test 20 meq/L 22-29 L code = 355) BLOOD UREA NITROGEN 36 mg/dL 7-21 H (BEAKER) (test code = 354) CREATININE (BEAKER) 1.28 mg/dL 0.57-1.25 H (test code = 358) GLUCOSE RANDOM 136 mg/dL 70-105 H (BEAKER) (test code = 652) CALCIUM (BEAKER) 8.0 mg/dL 8.4-10.2 L (test code = 697) EGFR (BEAKER) (test 55 mL/min/1.73 ESTIMA RENUKA GFR IS code = 1092) sq m NOT ACCURATE CREATININE CLEARANCE IN PREDICTING GLOMERULAR FILTRATION RATE . ESTIMATED GFR I S NOT APPLICABLE FOR DIALYSIS PATIEN TS. CBC W/PLT COUNT & AUTO [id number] 04:34:00 Test Item Value Reference Range Interpretation Comments WHITE BLOOD CELL COUNT (BEAKER) 10.4 K/ L 3.5-10.5 (test code = 775) RED BLOOD CELL COUNT (BEAKER) 2.53 M/ L 4.63-6.08 L (test code = 761) HEMOGLOBIN (BEAKER) (test code = 7.8 GM/DL 13.7-17.5 L 410) HEMATOCRIT (BEAKER) (test code = 25.9 % 40.1-51.0 L 411) MEAN CORPUSCULAR VOLUME (BEAKER) 102.4 fL 79.0-92.2 H (test code = 753) MEAN CORPUSCULAR HEMOGLOBIN 30.8 pg 25.7-32.2 (BEAKER) (test code = 751) MEAN CORPUSCULAR HEMOGLOBIN CONC 30.1 GM/DL 32.3-36.5 L (BEAKER) (test code = 752) RED CELL DISTRIBUTION WIDTH 15.9 % 11.6-14.4 H (BEAKER) (test code = 412) PLATELET COUNT (BEAKER) (test 479 K/CU MM 150-450 H code = 756) MEAN PLATELET VOLUME (BEAKER) 9.7 fL 9.4-12.4 (test code = 754) NUCLEATED RED BLOOD CELLS 0 /100 WBC 0-0 (BEAKER) (test code = 413) NEUTROPHILS RELATIVE PERCENT 78 % (BEAKER) (test code = 429) LYMPHOCYTES RELATIVE PERCENT 9 % (BEAKER) (test code = 430) MONOCYTES RELATIVE PERCENT 7 % (BEAKER) (test code = 431) EOSINOPHILS RELATIVE PERCENT 5 % (BEAKER) (test code = 432) BASOPHILS RELATIVE PERCENT 1 % (BEAKER) (test code = 437) NEUTROPHILS ABSOLUTE COUNT 8.06 K/ L 1.78-5.38 H (BEAKER) (test code = 670) LYMPHOCYTES ABSOLUTE COUNT 0.93 K/ L 1.32-3.57 L (BEAKER) (test code = 414) MONOCYTES ABSOLUTE COUNT (BEAKER) 0.68 K/ L 0.30-0.82 (test code = 415) EOSINOPHILS ABSOLUTE COUNT 0.52 K/ L 0.04-0.54 (BEAKER) (test code = 416) BASOPHILS ABSOLUTE COUNT (BEAKER) 0.07 K/ L 0.01-0.08 (test code = 417) IMMATURE GRANULOCYTES-RELATIVE 1 % 0-1 PERCENT (BEAKER) (test code = 2801) POCT-GLUCOSE [id number] 21:22:00 Test Item Value Reference Range Interpretation Comments POC-GLUCOSE METER 232 mg/dL 70-110 H TEST[facility] AT [place] [address] [facility] (test code = [facility] 1538) [id number] POCT-GLUCOSE [id number] 17:34:00 Test Item Value Reference Range Interpretation Comments POC-GLUCOSE METER 205 mg/dL 70-110 H TESTED AT [place] [address] ([facility] (test code = [facility] 1538) [id number] POCT-GLUCOSE [id number] 08:22:00 Test Item Value Reference Range Interpretation Comments POC-GLUCOSE METER 163 mg/dL 70-110 H TESTED AT [place] [address] ([facility] (test code = [facility] 1538) [address] CBC W/PLT COUNT & AUTO [id number] 05:45:00 Test Item Value Reference Range Interpretation Comments WHITE BLOOD CELL COUNT (BEAKER) 9.6 K/ L 3.5-10.5 (test code = 775) RED BLOOD CELL COUNT (BEAKER) 2.63 M/ L 4.63-6.08 L (test code = 761) HEMOGLOBIN (BEAKER) (test code = 8.2 GM/DL 13.7-17.5 L 410) HEMATOCRIT (BEAKER) (test code = 27.0 % 40.1-51.0 L 411) MEAN CORPUSCULAR VOLUME (BEAKER) 102.7 fL 79.0-92.2 H (test code = 753) MEAN CORPUSCULAR HEMOGLOBIN 31.2 pg 25.7-32.2 (BEAKER) (test code = 751) MEAN CORPUSCULAR HEMOGLOBIN CONC 30.4 GM/DL 32.3-36.5 L (BEAKER) (test code = 752) RED CELL DISTRIBUTION WIDTH 15.8 % 11.6-14.4 H (BEAKER) (test code = 412) PLATELET COUNT (BEAKER) (test 469 K/CU MM 150-450 H code = 756) MEAN PLATELET VOLUME (BEAKER) 9.4 fL 9.4-12.4 (test code = 754) NUCLEATED RED BLOOD CELLS 0 /100 WBC 0-0 (BEAKER) (test code = 413) NEUTROPHILS RELATIVE PERCENT 75 % (BEAKER) (test code = 429) LYMPHOCYTES RELATIVE PERCENT 11 % (BEAKER) (test code = 430) MONOCYTES RELATIVE PERCENT 7 % (BEAKER) (test code = 431) EOSINOPHILS RELATIVE PERCENT 6 % (BEAKER) (test code = 432) BASOPHILS RELATIVE PERCENT 1 % (BEAKER) (test code = 437) NEUTROPHILS ABSOLUTE COUNT 7.13 K/ L 1.78-5.38 H (BEAKER) (test code = 670) LYMPHOCYTES ABSOLUTE COUNT 1.03 K/ L 1.32-3.57 L (BEAKER) (test code = 414) MONOCYTES ABSOLUTE COUNT (BEAKER) 0.71 K/ L 0.30-0.82 (test code = 415) EOSINOPHILS ABSOLUTE COUNT 0.57 K/ L 0.04-0.54 H (BEAKER) (test code = 416) BASOPHILS ABSOLUTE COUNT (BEAKER) 0.06 K/ L 0.01-0.08 (test code = 417) IMMATURE GRANULOCYTES-RELATIVE 1 % 0-1 PERCENT (BEAKER) (test code = 2801) BASIC METABOLIC [id number] 05:43:00 Test Item Value Reference Range Interpretation Comments SODIUM (BEAKER) 131 meq/L 136-145 L (test code = 381) POTASSIUM (BEAKER) 4.2 meq/L 3.5-5.1 (test code = 379) CHLORIDE (BEAKER) 105 meq/L 98-107 (test code = 382) CO2 (BEAKER) (test 21 meq/L 22-29 L code = 355) BLOOD UREA NITROGEN 31 mg/dL 7-21 H (BEAKER) (test code = 354) CREATININE (BEAKER) 1.32 mg/dL 0.57-1.25 H (test code = 358) GLUCOSE RANDOM 138 mg/dL 70-105 H (BEAKER) (test code = 652) CALCIUM (BEAKER) 8.0 mg/dL 8.4-10.2 L (test code = 697) EGFR (BEAKER) (test 53 mL/min/1.73 ESTIMA RENUKA GFR IS code = 1092) sq m NOT ACCURATE CREATININE CLEARANCE IN PREDICTING GLOMERULAR FILTRATION RATE . ESTIMATED GFR I S NOT APPLICABLE FOR DIALYSIS PATIEN TS. POCT-GLUCOSE [id number] 21:11:00 Test Item Value Reference Range Interpretation Comments POC-GLUCOSE METER 201 mg/dL 70-110 H TESTED AT [place] [address] ([facility]) (test code = [facility] 1538) [id number] POCT-GLUCOSE [id number] 18:21:00 Test Item Value Reference Range Interpretation Comments POC-GLUCOSE METER 187 mg/dL 70-110 H TESTED AT [place] [address] ([facility]) (test code = [facility] 1538) [address] POCT-GLUCOSE [id number] 13:12:00 Test Item Value Reference Range Interpretation Comments POC-GLUCOSE METER 162 mg/dL 70-110 H TESTED AT [place] [address] ([facility]) (test code = [facility] 1538) [address] POCT-GLUCOSE [id number] 08:08:00 Test Item Value Reference Range Interpretation Comments POC-GLUCOSE METER 138 mg/dL 70-110 H TESTED AT [place] [address] ([facility]) (test code = [facility] 1538) [address] BASIC METABOLIC [id number] 06:47:00 Test Item Value Reference Range Interpretation Comments SODIUM (BEAKER) 133 meq/L 136-145 L (test code = 381) POTASSIUM (BEAKER) 4.8 meq/L 3.5-5.1 (test code = 379) CHLORIDE (BEAKER) 105 meq/L 98-107 (test code = 382) CO2 (BEAKER) (test 20 meq/L 22-29 L code = 355) BLOOD UREA NITROGEN 31 mg/dL 7-21 H (BEAKER) (test code = 354) CREATININE (BEAKER) 1.35 mg/dL 0.57-1.25 H (test code = 358) GLUCOSE RANDOM 129 mg/dL 70-105 H (BEAKER) (test code = 652) CALCIUM (BEAKER) 7.9 mg/dL 8.4-10.2 L (test code = 697) EGFR (BEAKER) (test 52 mL/min/1.73 ESTIMA RENUKA GFR IS code = 1092) sq m NOT ACCURATE CREATININE CLEARANCE IN PREDICTING GLOMERULAR FILTRATION RATE . ESTIMATED GFR I S NOT APPLICABLE FOR DIALYSIS PATIEN TS. CBC W/PLT COUNT & AUTO [id number] 05:08:00 Test Item Value Reference Range Interpretation Comments WHITE BLOOD CELL COUNT (BEAKER) 10.4 K/ L 3.5-10.5 (test code = 775) RED BLOOD CELL COUNT (BEAKER) 2.92 M/ L 4.63-6.08 L (test code = 761) HEMOGLOBIN (BEAKER) (test code = 9.0 GM/DL 13.7-17.5 L 410) HEMATOCRIT (BEAKER) (test code = 29.7 % 40.1-51.0 L 411) MEAN CORPUSCULAR VOLUME (BEAKER) 101.7 fL 79.0-92.2 H (test code = 753) MEAN CORPUSCULAR HEMOGLOBIN 30.8 pg 25.7-32.2 (BEAKER) (test code = 751) MEAN CORPUSCULAR HEMOGLOBIN CONC 30.3 GM/DL 32.3-36.5 L (BEAKER) (test code = 752) RED CELL DISTRIBUTION WIDTH 15.9 % 11.6-14.4 H (BEAKER) (test code = 412) PLATELET COUNT (BEAKER) (test 537 K/CU MM 150-450 H code = 756) MEAN PLATELET VOLUME (BEAKER) 9.7 fL 9.4-12.4 (test code = 754) NUCLEATED RED BLOOD CELLS 0 /100 WBC 0-0 (BEAKER) (test code = 413) NEUTROPHILS RELATIVE PERCENT 78 % (BEAKER) (test code = 429) LYMPHOCYTES RELATIVE PERCENT 9 % (BEAKER) (test code = 430) MONOCYTES RELATIVE PERCENT 7 % (BEAKER) (test code = 431) EOSINOPHILS RELATIVE PERCENT 5 % (BEAKER) (test code = 432) BASOPHILS RELATIVE PERCENT 1 % (BEAKER) (test code = 437) NEUTROPHILS ABSOLUTE COUNT 8.09 K/ L 1.78-5.38 H (BEAKER) (test code = 670) LYMPHOCYTES ABSOLUTE COUNT 0.96 K/ L 1.32-3.57 L (BEAKER) (test code = 414) MONOCYTES ABSOLUTE COUNT (BEAKER) 0.68 K/ L 0.30-0.82 (test code = 415) EOSINOPHILS ABSOLUTE COUNT 0.52 K/ L 0.04-0.54 (BEAKER) (test code = 416) BASOPHILS ABSOLUTE COUNT (BEAKER) 0.05 K/ L 0.01-0.08 (test code = 417) IMMATURE GRANULOCYTES-RELATIVE 1 % 0-1 PERCENT (BEAKER) (test code = 2801) POCT-GLUCOSE [id number] 21:13:00 Test Item Value Reference Range Interpretation Comments POC-GLUCOSE METER 169 mg/dL 70-[address] [facility] 6720 (BEAKER) (test code = MARIA ESTHER Cash [facility] 1538) [address] RAD, CHEST, 1 VIEW, NON [id number] 17:14:00Reason for exam:->Chest Tube RemovalShould this be [...] MDReport Verified Date/Time: 08/11/2017 17:14:23 Reading Location: [address] Radiology Reading Room POCT- GLUCOSE [id number] 17:09:00 Test Item Value Reference Range Interpretation Comments POC-GLUCOSE METER 238 mg/dL 70-110 H TESTED AT [place] [address] ([facility]) (test code = MARIA ESTHER Cash [facility] 1538) [address] RAD, CHEST, 1 VIEW, NON [id number] 13:25:00Reason for exam:->pl effusionShould this be performed at the bedside?->YesFINAL REPORT AP chest HISTORY: Pleural effusion COMPARISON: 08/05/2017 IMPRESSI ON:Stable cardiac silhouette enlargement. Layering left effusion unchanged. Possible small right effusion. No pneumothorax. Mild vascular congestion. Signed: Manuel Fraser Verified Date/Time: 08/11/2017 13:25:17 [facility] POCT-GLUCOSE [id number] 12:07:00 Test Item Value Reference Range Interpretation Comments POC-GLUCOSE METER 244 mg/dL 70-110 H TEST[facility] AT [place] [address] [facility] (test code = MARIA ESTHER Cash [facility] 1538) [id number] POCT-GLUCOSE [id number] 08:49:00 Test Item Value Reference Range Interpretation Comments POC-GLUCOSE METER 199 mg/dL 70-110 H TESTED AT [place] [address] ([facility] (test code = MARIA ESTHER Cash [facility] 1538) [id number] BASIC METABOLIC [id number] 07:01:00 Test Item Value Reference Range Interpretation Comments SODIUM (BEAKER) 133 meq/L 136-145 L (test code = 381) POTASSIUM (BEAKER) 4.6 meq/L 3.5-5.1 (test code = 379) CHLORIDE (BEAKER) 105 meq/L 98-107 (test code = 382) CO2 (BEAKER) (test 20 meq/L 22-29 L code = 355) BLOOD UREA NITROGEN 33 mg/dL 7-21 H (BEAKER) (test code = 354) CREATININE (BEAKER) 1.44 mg/dL 0.57-1.25 H (test code = 358) GLUCOSE RANDOM 132 mg/dL 70-105 H (BEAKER) (test code = 652) CALCIUM (BEAKER) 8.1 mg/dL 8.4-10.2 L (test code = 697) EGFR (BEAKER) (test 48 mL/min/1.73 ESTIMA RENUKA GFR IS code = 1092) sq m NOT ACCURATE CREATININE CLEARANCE IN PREDICTING GLOMERULAR FILTRATION RATE . ESTIMATED GFR I S NOT APPLICABLE FOR DIALYSIS PATIEN TS. CBC W/PLT COUNT & AUTO [id number] 05:42:00 Test Item Value Reference Range Interpretation Comments WHITE BLOOD CELL COUNT (BEAKER) 10.9 K/ L 3.5-10.5 H (test code = 775) RED BLOOD CELL COUNT (BEAKER) 2.84 M/ L 4.63-6.08 L (test code = 761) HEMOGLOBIN (BEAKER) (test code = 8.9 GM/DL 13.7-17.5 L 410) HEMATOCRIT (BEAKER) (test code = 30.0 % 40.1-51.0 L 411) MEAN CORPUSCULAR VOLUME (BEAKER) 105.6 fL 79.0-92.2 H (test code = 753) MEAN CORPUSCULAR HEMOGLOBIN 31.3 pg 25.7-32.2 (BEAKER) (test code = 751) MEAN CORPUSCULAR HEMOGLOBIN CONC 29.7 GM/DL 32.3-36.5 L (BEAKER) (test code = 752) RED CELL DISTRIBUTION WIDTH 15.8 % 11.6-14.4 H (BEAKER) (test code = 412) PLATELET COUNT (BEAKER) (test 528 K/CU MM 150-450 H code = 756) MEAN PLATELET VOLUME (BEAKER) 10.1 fL 9.4-12.4 (test code = 754) NUCLEATED RED BLOOD CELLS 0 /100 WBC 0-0 (BEAKER) (test code = 413) NEUTROPHILS RELATIVE PERCENT 77 % (BEAKER) (test code = 429) LYMPHOCYTES RELATIVE PERCENT 9 % (BEAKER) (test code = 430) MONOCYTES RELATIVE PERCENT 7 % (BEAKER) (test code = 431) EOSINOPHILS RELATIVE PERCENT 5 % (BEAKER) (test code = 432) BASOPHILS RELATIVE PERCENT 1 % (BEAKER) (test code = 437) NEUTROPHILS ABSOLUTE COUNT 8.44 K/ L 1.78-5.38 H (BEAKER) (test code = 670) LYMPHOCYTES ABSOLUTE COUNT 1.01 K/ L 1.32-3.57 L ([facility]) (test code = 414) MONOCYTES ABSOLUTE COUNT (BEAKER) 0.75 K/ L 0.30-0.82 (test code = 415) EOSINOPHILS ABSOLUTE COUNT 0.53 K/ L 0.04-0.54 ([facility]) (test code = 416) BASOPHILS ABSOLUTE COUNT (AKER) 0.08 K/ L 0.01-0.08 (test code = 417) IMMATURE GRANULOCYTES-RELATIVE 1 % 0-1 PERCENT ([facility]) (test code = 2801) POCT-GLUCOSE [id number] 21:27:00 Test Item Value Reference Range Interpretation Comments POC-GLUCOSE METER 193 mg/dL 70-110 H TESTED AT [place] [address] ([facility]) (test code = BANNER Shreya [facility] 1538) [address] POCT-GLUCOSE [id number] 17:12:00 Test Item Value Reference Range Interpretation Comments POC-GLUCOSE METER 195 mg/dL 70-110 H TESTED AT [place] [address] ([facility]) (test code = [facility] 1538) [id number] POCT-GLUCOSE [id number] 12:43:00 Test Item Value Reference Range Interpretation Comments POC-GLUCOSE METER 215 mg/dL 70-110 H TESTED AT [place] [address] ([facility]) (test code = [facility] 1538) [id number] POCT-GLUCOSE [id number] 07:30:00 Test Item Value Reference Range Interpretation Comments POC-GLUCOSE METER 160 mg/dL 70-110 H TESTED AT [place] [address] ([facility]) (test code = [facility] 1538) [id number] CBC W/PLT COUNT & AUTO [id number] 05:56:00 Test Item Value Reference Range Interpretation Comments WHITE BLOOD CELL COUNT 10.0 K/ L 3.5-10.5 ([facility]) (test code = 775) RED BLOOD CELL COUNT 2.96 M/ L 4.63-6.08 L ([facility]) (test code = 761) HEMOGLOBIN ([facility]) 9.1 GM/DL 13.7-17.5 L (test code = 410) HEMATOCRIT ([facility]) 30.1 % 40.1-51.0 L (test code = 411) MEAN CORPUSCULAR 101.7 fL 79.0-92.2 H VOLUME (BEAKER) (test code = 753) MEAN CORPUSCULAR 30.7 pg 25.7-32.2 HEMOGLOBIN (BEAKER) (test code = 751) MEAN CORPUSCULAR 30.2 GM/DL 32.3-36.5 L HEMOGLOBIN CONC (BEAKER) (test code = 752) RED CELL DISTRIBUTION 15.7 % 11.6-14.4 H WIDTH (BEAKER) (test code = 412) PLATELET COUNT 510 K/CU MM 150-[address] T (BEAKER) (test code = result Compared to 756) previous one, Clinical correl ation required. MEAN PLATELET VOLUME 10.0 fL 9.4-12.4 (BEAKER) (test code = 754) NUCLEATED RED BLOOD 0 /100 WBC 0-0 CELLS (BEAKER) (test code = 413) NEUTROPHILS RELATIVE 76 % PERCENT (BEAKER) (test code = 429) LYMPHOCYTES RELATIVE 10 % PERCENT (BEAKER) (test code = 430) MONOCYTES RELATIVE 8 % PERCENT (BEAKER) (test code = 431) EOSINOPHILS RELATIVE 5 % PERCENT (BEAKER) (test code = 432) BASOPHILS RELATIVE 1 % PERCENT (BEAKER) (test code = 437) NEUTROPHILS ABSOLUTE 7.55 K/ L 1.78-5.38 H COUNT (BEAKER) (test code = 670) LYMPHOCYTES ABSOLUTE 1.01 K/ L 1.32-3.57 L COUNT (BEAKER) (test code = 414) MONOCYTES ABSOLUTE 0.78 K/ L 0.30-0.82 COUNT (BEAKER) (test code = 415) EOSINOPHILS ABSOLUTE 0.48 K/ L 0.04-0.54 COUNT (BEAKER) (test code = 416) BASOPHILS ABSOLUTE 0.06 K/ L 0.01-0.08 COUNT (BEAKER) (test code = 417) IMMATURE 1 % 0-1 GRANULOCYTES-RELATIVE PERCENT (BEAKER) (test code = 2801) BASIC METABOLIC [id number] 05:42:00 Test Item Value Reference Range Interpretation Comments SODIUM (BEAKER) 132 meq/L 136-145 L (test code = 381) POTASSIUM (BEAKER) 4.5 meq/L 3.5-5.1 (test code = 379) CHLORIDE (BEAKER) 104 meq/L 98-107 (test code = 382) CO2 (BEAKER) (test 19 meq/L 22-29 L code = 355) BLOOD UREA NITROGEN 30 mg/dL 7-21 H (BEAKER) (test code = 354) CREATININE (BEAKER) 1.32 mg/dL 0.57-1.25 H (test code = 358) GLUCOSE RANDOM 131 mg/dL 70-105 H (AKER) (test code = 652) CALCIUM (BEAKER) 7.9 mg/dL 8.4-10.2 L (test code = 697) EGFR (BEAKER) (test 53 mL/min/1.73 ESTIMA RENUKA GFR IS code = 1092) sq m NOT ACCURATE CREATININE CLEARANCE IN PREDICTING GLOMERULAR FILTRATION RATE . ESTIMATED GFR I S NOT APPLICABLE FOR DIALYSIS PATIEN TS. POCT-GLUCOSE [id number] 21:16:00 Test Item Value Reference Range Interpretation Comments POC-GLUCOSE METER 230 mg/dL 70-110 H TESTED AT [place] [address] ([facility]) (test code = [facility] 1538) [id number] POCT-GLUCOSE [id number] 19:38:00 Test Item Value Reference Range Interpretation Comments POC-GLUCOSE METER 239 mg/dL 70-110 H TESTED AT [place] [address] ([facility]) (test code = [facility] 1538) [id number] BLOOD [id number] 18:00:00 Test Item Value Reference Range Interpretation Comments CULTURE (BEAKER) (test No growth in 5 days code = 1095) BLOOD [id number] 18:00:00 Test Item Value Reference Range Interpretation Comments CULTURE (BEAKER) (test No growth in 5 days code = 1095) POCT-GLUCOSE [id number] 11:57:00 Test Item Value Reference Range Interpretation Comments POC-GLUCOSE METER 203 mg/dL 70-110 H TESTED AT [place] [address] ([facility]) (test code = [facility] 1538) [id number] POCT-GLUCOSE [id number] 08:50:00 Test Item Value Reference Range Interpretation Comments POC-GLUCOSE METER 140 mg/dL 70-110 H TESTED AT [place] [address] ([facility]) (test code = [facility] [place] 1538) [id number] BASIC METABOLIC [id number] 05:31:00 Test Item Value Reference Range Interpretation Comments SODIUM (BEAKER) 134 meq/L 136-145 L (test code = 381) POTASSIUM (BEAKER) 4.7 meq/L 3.5-5.1 (test code = 379) CHLORIDE (BEAKER) 104 meq/L 98-107 (test code = 382) CO2 (BEAKER) (test 24 meq/L 22-29 code = 355) BLOOD UREA NITROGEN 29 mg/dL 7-21 H (BEAKER) (test code = 354) CREATININE (BEAKER) 1.38 mg/dL 0.57-1.25 H (test code = 358) GLUCOSE RANDOM 139 mg/dL 70-105 H (BEAKER) (test code = 652) CALCIUM (BEAKER) 8.1 mg/dL 8.4-10.2 L (test code = 697) EGFR (BEAKER) (test 50 mL/min/1.73 ESTIMA RENUKA GFR IS code = 1092) sq m NOT ACCURATE CREATININE CLEARANCE IN PREDICTING GLOMERULAR FILTRATION RATE . ESTIMATED GFR I S NOT APPLICABLE FOR DIALYSIS PATIEN TS. CBC W/PLT COUNT & AUTO [id number] 05:08:00 Test Item Value Reference Range Interpretation Comments WHITE BLOOD CELL COUNT (BEAKER) 11.7 K/ L 3.5-10.5 H (test code = 775) RED BLOOD CELL COUNT (BEAKER) 3.06 M/ L 4.63-6.08 L (test code = 761) HEMOGLOBIN (BEAKER) (test code = 9.8 GM/DL 13.7-17.5 L 410) HEMATOCRIT (BEAKER) (test code = 31.3 % 40.1-51.0 L 411) MEAN CORPUSCULAR VOLUME (BEAKER) 102.3 fL 79.0-92.2 H (test code = 753) MEAN CORPUSCULAR HEMOGLOBIN 32.0 pg 25.7-32.2 (BEAKER) (test code = 751) MEAN CORPUSCULAR HEMOGLOBIN CONC 31.3 GM/DL 32.3-36.5 L (BEAKER) (test code = 752) RED CELL DISTRIBUTION WIDTH 15.5 % 11.6-14.4 H (BEAKER) (test code = 412) PLATELET COUNT (BEAKER) (test 576 K/CU MM 150-450 H code = 756) MEAN PLATELET VOLUME (BEAKER) 9.8 fL 9.4-12.4 (test code = 754) NUCLEATED RED BLOOD CELLS 0 /100 WBC 0-0 (BEAKER) (test code = 413) NEUTROPHILS RELATIVE PERCENT 78 % (BEAKER) (test code = 429) LYMPHOCYTES RELATIVE PERCENT 8 % (BEAKER) (test code = 430) MONOCYTES RELATIVE PERCENT 6 % (BEAKER) (test code = 431) EOSINOPHILS RELATIVE PERCENT 5 % (BEAKER) (test code = 432) BASOPHILS RELATIVE PERCENT 1 % (BEAKER) (test code = 437) NEUTROPHILS ABSOLUTE COUNT 9.20 K/ L 1.78-5.38 H (BEAKER) (test code = 670) LYMPHOCYTES ABSOLUTE COUNT 0.98 K/ L 1.32-3.57 L (BEAKER) (test code = 414) MONOCYTES ABSOLUTE COUNT (BEAKER) 0.71 K/ L 0.30-0.82 (test code = 415) EOSINOPHILS ABSOLUTE COUNT 0.60 K/ L 0.04-0.54 H (BEAKER) (test code = 416) BASOPHILS ABSOLUTE COUNT (BEAKER) 0.06 K/ L 0.01-0.08 (test code = 417) IMMATURE GRANULOCYTES-RELATIVE 2 % 0-1 H PERCENT (BEAKER) (test code = 2801) POCT-GLUCOSE [id number] 21:11:00 Test Item Value Reference Range Interpretation Comments POC-GLUCOSE METER 195 mg/dL 70-110 H TESTED AT [place] [address] (BEAKER) (test code = [facility] 1538) [id number] POCT-GLUCOSE [id number] 17:47:00 Test Item Value Reference Range Interpretation Comments POC-GLUCOSE METER 175 mg/dL 70-110 H TESTED AT [place] [address] (BEAKER) (test code = [facility] 1538) [address] POCT-GLUCOSE [id number] 12:31:00 Test Item Value Reference Range Interpretation Comments POC-GLUCOSE METER 219 mg/dL 70-110 H TESTED AT [place] [address] (BEAKER) (test code = [facility] 1538) [address] [id number] 10:59:00 Test Item Value Reference Range Interpretation Comments MAGNESIUM (BEAKER) (test code = 1.9 mg/dL 1.6-2.6 627) BASIC METABOLIC [id number] 10:59:00 Test Item Value Reference Range Interpretation Comments SODIUM (BEAKER) 134 meq/L 136-145 L (test code = 381) POTASSIUM (BEAKER) 4.4 meq/L 3.5-5.1 (test code = 379) CHLORIDE (BEAKER) 104 meq/L 98-107 (test code = 382) CO2 (BEAKER) (test 23 meq/L 22-29 code = 355) BLOOD UREA NITROGEN 29 mg/dL 7-21 H (BEAKER) (test code = 354) CREATININE (BEAKER) 1.54 mg/dL 0.57-1.25 H (test code = 358) GLUCOSE RANDOM 156 mg/dL 70-105 H (BEAKER) (test code = 652) CALCIUM (BEAKER) 8.1 mg/dL 8.4-10.2 L (test code = 697) EGFR (BEAKER) (test 44 mL/min/1.73 ESTIMA RENUKA GFR IS code = 1092) sq m NOT ACCURATE CREATININE CLEARANCE IN PREDICTING GLOMERULAR FILTRATION RATE . ESTIMATED GFR I S NOT APPLICABLE FOR DIALYSIS PATIEN TS. POCT-GLUCOSE [id number] 08:13:00 Test Item Value Reference Range Interpretation Comments POC-GLUCOSE METER 159 mg/dL 70-[address] [facility] 6720 (BEAKER) (test code = [facility] [place] 1538) [address] CBC W/PLT COUNT & AUTO [id number] 05:28:00 Test Item Value Reference Range Interpretation Comments WHITE BLOOD CELL COUNT (BEAKER) 13.8 K/ L 3.5-10.5 H (test code = 775) RED BLOOD CELL COUNT (BEAKER) 2.68 M/ L 4.63-6.08 L (test code = 761) HEMOGLOBIN (BEAKER) (test code = 8.3 GM/DL 13.7-17.5 L 410) HEMATOCRIT (BEAKER) (test code = 27.7 % 40.1-51.0 L 411) MEAN CORPUSCULAR VOLUME (BEAKER) 103.4 fL 79.0-92.2 H (test code = 753) MEAN CORPUSCULAR HEMOGLOBIN 31.0 pg 25.7-32.2 (BEAKER) (test code = 751) MEAN CORPUSCULAR HEMOGLOBIN CONC 30.0 GM/DL 32.3-36.5 L (BEAKER) (test code = 752) RED CELL DISTRIBUTION WIDTH 15.6 % 11.6-14.4 H (BEAKER) (test code = 412) PLATELET COUNT (BEAKER) (test 541 K/CU MM 150-450 H code = 756) MEAN PLATELET VOLUME (BEAKER) 11.0 fL 9.4-12.4 (test code = 754) NUCLEATED RED BLOOD CELLS 0 /100 WBC 0-0 (BEAKER) (test code = 413) NEUTROPHILS RELATIVE PERCENT 79 % (BEAKER) (test code = 429) LYMPHOCYTES RELATIVE PERCENT 8 % (BEAKER) (test code = 430) MONOCYTES RELATIVE PERCENT 7 % (BEAKER) (test code = 431) EOSINOPHILS RELATIVE PERCENT 4 % (BEAKER) (test code = 432) BASOPHILS RELATIVE PERCENT 1 % (BEAKER) (test code = 437) NEUTROPHILS ABSOLUTE COUNT 10.87 K/ L 1.78-5.38 H (BEAKER) (test code = 670) LYMPHOCYTES ABSOLUTE COUNT 1.05 K/ L 1.32-3.57 L (BEAKER) (test code = 414) MONOCYTES ABSOLUTE COUNT (BEAKER) 0.91 K/ L 0.30-0.82 H (test code = 415) EOSINOPHILS ABSOLUTE COUNT 0.61 K/ L 0.04-0.54 H (BEAKER) (test code = 416) BASOPHILS ABSOLUTE COUNT (BEAKER) 0.09 K/ L 0.01-0.08 H (test code = 417) IMMATURE GRANULOCYTES-RELATIVE 2 % 0-1 H PERCENT (BEAKER) (test code = 2801) POCT-GLUCOSE [id number] 21:07:00 Test Item Value Reference Range Interpretation Comments POC-GLUCOSE METER 201 mg/dL 70-[address] [facility] [address] [facility] (test code = [facility] [place] 1538) [address] POCT-GLUCOSE [id number] 17:02:00 Test Item Value Reference Range Interpretation Comments POC-GLUCOSE METER 229 mg/dL 70-[address] [facility] 6720 (BEAKER) (test code = [facility] [place] 1538) [address] POCT-GLUCOSE [id number] 12:10:00 Test Item Value Reference Range Interpretation Comments POC-GLUCOSE METER 225 mg/dL 70-[address] [facility] 6720 (BEAKER) (test code = [facility] [place] 1538) [address] URINE [id number] 08:57:00 Test Item Value Reference Range Interpretation Comments CULTURE (BEAKER) (test code No growth = 1095) GRAM STAIN RESULT (BEAKER) No WBCs (test code = 1123) GRAM STAIN RESULT (BEAKER) No organisms seen (test code = 40599) POCT-GLUCOSE [id number] 07:40:00 Test Item Value Reference Range Interpretation Comments POC-GLUCOSE METER 207 mg/dL 70-[address] [facility] 6720 (BEAKER) (test code = [facility] [place] 1538) [address] [id number] 05:58:00 Test Item Value Reference Range Interpretation Comments MAGNESIUM (BEAKER) (test code = 1.7 mg/dL 1.6-2.6 627) BASIC METABOLIC [id number] 05:58:00 Test Item Value Reference Range Interpretation Comments SODIUM (BEAKER) 134 meq/L 136-145 L (test code = 381) POTASSIUM (BEAKER) 4.3 meq/L 3.5-5.1 (test code = 379) CHLORIDE (BEAKER) 104 meq/L 98-107 (test code = 382) CO2 (BEAKER) (test 22 meq/L 22-29 code = 355) BLOOD UREA NITROGEN 29 mg/dL 7-21 H (BEAKER) (test code = 354) CREATININE (BEAKER) 1.39 mg/dL 0.57-1.25 H (test code = 358) GLUCOSE RANDOM 135 mg/dL 70-105 H (BEAKER) (test code = 652) CALCIUM (BEAKER) 8.2 mg/dL 8.4-10.2 L (test code = 697) EGFR (BEAKER) (test 50 mL/min/1.73 ESTIMA RENUKA GFR IS code = 1092) sq m NOT ACCURATE CREATININE CLEARANCE IN PREDICTING GLOMERULAR FILTRATION RATE . ESTIMATED GFR I S NOT APPLICABLE FOR DIALYSIS PATIEN TS. CBC W/PLT COUNT & AUTO [id number] 05:08:00 Test Item Value Reference Range Interpretation Comments WHITE BLOOD CELL COUNT (BEAKER) 14.8 K/ L 3.5-10.5 H (test code = 775) RED BLOOD CELL COUNT (BEAKER) 3.11 M/ L 4.63-6.08 L (test code = 761) HEMOGLOBIN (BEAKER) (test code = 9.9 GM/DL 13.7-17.5 L 410) HEMATOCRIT (BEAKER) (test code = 32.0 % 40.1-51.0 L 411) MEAN CORPUSCULAR VOLUME (BEAKER) 102.9 fL 79.0-92.2 H (test code = 753) MEAN CORPUSCULAR HEMOGLOBIN 31.8 pg 25.7-32.2 (BEAKER) (test code = 751) MEAN CORPUSCULAR HEMOGLOBIN CONC 30.9 GM/DL 32.3-36.5 L (BEAKER) (test code = 752) RED CELL DISTRIBUTION WIDTH 15.6 % 11.6-14.4 H (BEAKER) (test code = 412) PLATELET COUNT (BEAKER) (test 580 K/CU MM 150-450 H code = 756) MEAN PLATELET VOLUME (BEAKER) 10.3 fL 9.4-12.4 (test code = 754) NUCLEATED RED BLOOD CELLS 0 /100 WBC 0-0 (BEAKER) (test code = 413) NEUTROPHILS RELATIVE PERCENT 79 % (BEAKER) (test code = 429) LYMPHOCYTES RELATIVE PERCENT 8 % (BEAKER) (test code = 430) MONOCYTES RELATIVE PERCENT 6 % (BEAKER) (test code = 431) EOSINOPHILS RELATIVE PERCENT 4 % (BEAKER) (test code = 432) BASOPHILS RELATIVE PERCENT 1 % (BEAKER) (test code = 437) NEUTROPHILS ABSOLUTE COUNT 11.68 K/ L 1.78-5.38 H (BEAKER) (test code = 670) LYMPHOCYTES ABSOLUTE COUNT 1.21 K/ L 1.32-3.57 L (BEAKER) (test code = 414) MONOCYTES ABSOLUTE COUNT (BEAKER) 0.89 K/ L 0.30-0.82 H (test code = 415) EOSINOPHILS ABSOLUTE COUNT 0.61 K/ L 0.04-0.54 H (BEAKER) (test code = 416) BASOPHILS ABSOLUTE COUNT (BEAKER) 0.09 K/ L 0.01-0.08 H (test code = 417) IMMATURE GRANULOCYTES-RELATIVE 2 % 0-1 H PERCENT (BEAKER) (test code = 2807) POCT-GLUCOSE [id number] 21:17:00 Test Item Value Reference Range Interpretation Comments POC-GLUCOSE METER 260 mg/dL 70-110 H TESTED AT [place] [address] ([facility]) (test code = [facility] [place] 1538) [address] POCT-GLUCOSE [id number] 17:10:00 Test Item Value Reference Range Interpretation Comments POC-GLUCOSE METER 190 mg/dL 70-110 H TESTED AT [place] [address] ([facility]) (test code = [facility] [place] 1538) [address] POCT-GLUCOSE [id number] 12:17:00 Test Item Value Reference Range Interpretation Comments POC-GLUCOSE METER 241 mg/dL 70-110 H TESTED AT [place] [address] ([facility]) (test code = [facility] 1538) [address] CBC W/PLT COUNT & AUTO [id number] 08:29:00 Test Item Value Reference Range Interpretation Comments WHITE BLOOD CELL COUNT (BEAKER) 16.5 K/ L 3.5-10.5 H (test code = 775) RED BLOOD CELL COUNT (BEAKER) 2.83 M/ L 4.63-6.08 L (test code = 761) HEMOGLOBIN (BEAKER) (test code = 8.8 GM/DL 13.7-17.5 L 410) HEMATOCRIT (BEAKER) (test code = 28.8 % 40.1-51.0 L 411) MEAN CORPUSCULAR VOLUME (BEAKER) 101.8 fL 79.0-92.2 H (test code = 753) MEAN CORPUSCULAR HEMOGLOBIN 31.1 pg 25.7-32.2 (BEAKER) (test code = 751) MEAN CORPUSCULAR HEMOGLOBIN CONC 30.6 GM/DL 32.3-36.5 L (BEAKER) (test code = 752) RED CELL DISTRIBUTION WIDTH 15.4 % 11.6-14.4 H (BEAKER) (test code = 412) PLATELET COUNT (BEAKER) (test 535 K/CU MM 150-450 H code = 756) MEAN PLATELET VOLUME (BEAKER) 10.7 fL 9.4-12.4 (test code = 754) NUCLEATED RED BLOOD CELLS 1 /100 WBC 0-0 H (BEAKER) (test code = 413) NEUTROPHILS RELATIVE PERCENT 78 % (BEAKER) (test code = 429) LYMPHOCYTES RELATIVE PERCENT 9 % (BEAKER) (test code = 430) MONOCYTES RELATIVE PERCENT 7 % (BEAKER) (test code = 431) EOSINOPHILS RELATIVE PERCENT 3 % (BEAKER) (test code = 432) BASOPHILS RELATIVE PERCENT 0 % (BEAKER) (test code = 437) NEUTROPHILS ABSOLUTE COUNT 12.77 K/ L 1.78-5.38 H (BEAKER) (test code = 670) LYMPHOCYTES ABSOLUTE COUNT 1.45 K/ L 1.32-3.57 (BEAKER) (test code = 414) MONOCYTES ABSOLUTE COUNT (BEAKER) 1.12 K/ L 0.30-0.82 H (test code = 415) EOSINOPHILS ABSOLUTE COUNT 0.55 K/ L 0.04-0.54 H (BEAKER) (test code = 416) BASOPHILS ABSOLUTE COUNT (BEAKER) 0.07 K/ L 0.01-0.08 (test code = 417) IMMATURE GRANULOCYTES-RELATIVE 3 % 0-1 H PERCENT (BEAKER) (test code = 2801) (MANUAL DIFFERENTIAL)2017-08-06 08:29:00 Test Item Value Reference Range Interpretation Comments TOTAL COUNTED (BEAKER) (test code = 1351) POCT-GLUCOSE [id number] 07:22:00 Test Item Value Reference Range Interpretation Comments POC-GLUCOSE METER 183 mg/dL 70-[address] [facility] 6720 (BEAKER) (test code = [facility] [place] 1538) [address] [id number] 06:21:00 Test Item Value Reference Range Interpretation Comments MAGNESIUM (BEAKER) (test code = 1.9 mg/dL 1.6-2.6 627) BASIC METABOLIC [id number] 06:21:00 Test Item Value Reference Range Interpretation Comments SODIUM (BEAKER) 134 meq/L 136-145 L (test code = 381) POTASSIUM (BEAKER) 3.8 meq/L 3.5-5.1 (test code = 379) CHLORIDE (BEAKER) 101 meq/L 98-107 (test code = 382) CO2 (BEAKER) (test 23 meq/L 22-29 code = 355) BLOOD UREA NITROGEN 36 mg/dL 7-21 H (BEAKER) (test code = 354) CREATININE (BEAKER) 1.49 mg/dL 0.57-1.25 H (test code = 358) GLUCOSE RANDOM 139 mg/dL 70-105 H (BEAKER) (test code = 652) CALCIUM (BEAKER) 8.0 mg/dL 8.4-10.2 L (test code = 697) EGFR (BEAKER) (test 46 mL/min/1.73 ESTIMA RENUKA GFR IS code = 1092) sq m NOT ACCURATE CREATININE CLEARANCE IN PREDICTING GLOMERULAR FILTRATION RATE . ESTIMATED GFR I S NOT APPLICABLE FOR DIALYSIS PATIEN TS. BLOOD [id number] 02:41:00 Test Item Value Reference Range Interpretation Comments CULTURE (BEAKER) A From Aerobi c Bottle (test code = Only Same organ ism has 1095) been isolated f rom cultures(s) of the same body site and collection date . Repeat identifi cation and susceptibil ity testing perform ed only after consultat ion with the [facility] microbiology laboratory.Refe r to previous cultur e ofEnterobacter cloacae GRAM STAIN From aerobic RESULT (BEAKER) bottle only: (test code = gram negative 1123) rods ANAEROBIC [id number] 23:46:00 Test Item Value Reference Range Interpretation Comments CULTURE (BEAKER) (test No anaerobes isolated code = 1095) POCT-GLUCOSE [id number] 20:54:00 Test Item Value Reference Range Interpretation Comments POC-GLUCOSE METER 241 mg/dL 70-[address] [facility] 6720 (BEAKER) (test code = [facility] 1538) [address] RAD, CHEST, 1 VIEW, NON [id number] 19:11:00Reason for exam:- >leukocytosisShould this be performed at the bedside?->YesFINAL REPORT [...] MDReport Verified Date/Time: 08/05/2017 19:11:15 Reading Location: [address] Reading Room POCT-GLUCOSE [id number] 18:02:00 Test Item Value Reference Range Interpretation Comments POC-GLUCOSE METER 169 mg/dL 70-[address] [facility] 6720 (BEAKER) (test code = [facility] 1538) [address] CT, BRAIN, WITHOUT [id number] 17:19:00Reason for exam:->evaluate for bleedingWhat is the [...] with MRI is recommended. Signed: Miguel Gallardo Verified Date/Time: 08/05/2017 17:19:56 Reading Location: [facility] Radiology Reading Room POCT-GLUCOSE [id number] 11:59:00 Test Item Value Reference Range Interpretation Comments POC-GLUCOSE METER 220 mg/dL 70-[address] [facility] 6720 (BEAKER) (test code = [facility] [place] [facility] 1538) [address] URINALYSIS W/ [id number] 10:10:00 Test Item Value Reference Range Interpretation Comments COLOR (BEAKER) (test code = 470) Yellow CLARITY (BEAKER) (test code = Clear 469) SPECIFIC GRAVITY UA (BEAKER) 1.015 1.001-1.035 (test code = 468) PH UA (BEAKER) (test code = 467) 5.5 5.0-8.0 PROTEIN UA (BEAKER) (test code = 10 mg/dL Negative A 464) GLUCOSE UA (BEAKER) (test code = Negative Negative 365) KETONES UA (BEAKER) (test code = Negative Negative 371) BILIRUBIN UA (BEAKER) (test code Negative Negative = 462) BLOOD UA (BEAKER) (test code = Trace Negative A 461) NITRITE UA (BEAKER) (test code = Negative Negative 465) LEUKOCYTE ESTERASE UA (BEAKER) Large Negative A (test code = 466) UROBILINOGEN UA (BEAKER) (test 3.0 mg/dL 0.2-1.0 H code = 463) RBC UA (BEAKER) (test code = 1 /HPF 519) WBC UA (BEAKER) (test code = 29 /HPF 520) BACTERIA (BEAKER) (test code = Rare 517) MUCUS (BEAKER) (test code = Rare 1574) SQUAMOUS EPITHELIAL (BEAKER) < /HPF (test code = 516) SOURCE(BEAKER) (test code = Urine, Frances 3495) POCT-GLUCOSE [id number] 08:49:00 Test Item Value Reference Range Interpretation Comments POC-GLUCOSE METER 203 mg/dL 70-[address] [facility] 6720 (BEAKER) (test code = [facility] [place] 1538) [address] CBC W/PLT COUNT & AUTO [id number] 08:10:00 Test Item Value Reference Range Interpretation Comments WHITE BLOOD CELL COUNT (BEAKER) 17.3 K/ L 3.5-10.5 H (test code = 775) RED BLOOD CELL COUNT (BEAKER) 2.80 M/ L 4.63-6.08 L (test code = 761) HEMOGLOBIN (BEAKER) (test code = 9.0 GM/DL 13.7-17.5 L 410) HEMATOCRIT (BEAKER) (test code = 28.9 % 40.1-51.0 L 411) MEAN CORPUSCULAR VOLUME (BEAKER) 103.2 fL 79.0-92.2 H (test code = 753) MEAN CORPUSCULAR HEMOGLOBIN 32.1 pg 25.7-32.2 (BEAKER) (test code = 751) MEAN CORPUSCULAR HEMOGLOBIN CONC 31.1 GM/DL 32.3-36.5 L (BEAKER) (test code = 752) RED CELL DISTRIBUTION WIDTH 15.8 % 11.6-14.4 H (BEAKER) (test code = 412) PLATELET COUNT (BEAKER) (test 500 K/CU MM 150-450 H code = 756) MEAN PLATELET VOLUME (BEAKER) 10.7 fL 9.4-12.4 (test code = 754) NUCLEATED RED BLOOD CELLS 1 /100 WBC 0-0 H (BEAKER) (test code = 413) NEUTROPHILS RELATIVE PERCENT 80 % (BEAKER) (test code = 429) LYMPHOCYTES RELATIVE PERCENT 8 % (BEAKER) (test code = 430) MONOCYTES RELATIVE PERCENT 7 % (BEAKER) (test code = 431) EOSINOPHILS RELATIVE PERCENT 3 % (BEAKER) (test code = 432) BASOPHILS RELATIVE PERCENT 1 % (BEAKER) (test code = 437) NEUTROPHILS ABSOLUTE COUNT 13.74 K/ L 1.78-5.38 H (BEAKER) (test code = 670) LYMPHOCYTES ABSOLUTE COUNT 1.43 K/ L 1.32-3.57 (BEAKER) (test code = 414) MONOCYTES ABSOLUTE COUNT (BEAKER) 1.14 K/ L 0.30-0.82 H (test code = 415) EOSINOPHILS ABSOLUTE COUNT 0.47 K/ L 0.04-0.54 (BEAKER) (test code = 416) BASOPHILS ABSOLUTE COUNT (BEAKER) 0.09 K/ L 0.01-0.08 H (test code = 417) IMMATURE GRANULOCYTES-RELATIVE 2 % 0-1 H PERCENT (BEAKER) (test code = 2801) BASIC METABOLIC [id number] 05:29:00 Test Item Value Reference Range Interpretation Comments SODIUM (BEAKER) 138 meq/L 136-145 (test code = 381) POTASSIUM (BEAKER) 4.0 meq/L 3.5-5.1 (test code = 379) CHLORIDE (BEAKER) 106 meq/L 98-107 (test code = 382) CO2 (BEAKER) (test 22 meq/L 22-29 code = 355) BLOOD UREA NITROGEN 46 mg/dL 7-21 H (BEAKER) (test code = 354) CREATININE (BEAKER) 1.77 mg/dL 0.57-1.25 H (test code = 358) GLUCOSE RANDOM 162 mg/dL 70-105 H ([facility]) (test code = 652) CALCIUM ([facility]) 7.9 mg/dL 8.4-10.2 L (test code = 697) EGFR ([facility]) (test 38 mL/min/1.73 ESTIMA RENUKA GFR IS code = 1092) sq m NOT ACCURATE CREATININE CLEARANCE IN PREDICTING GLOMERULAR FILTRATION RATE . ESTIMATED GFR I S NOT APPLICABLE FOR DIALYSIS PATIEN TS. [id number] 05:28:00 Test Item Value Reference Range Interpretation Comments MAGNESIUM ([facility]) (test code = 2.1 mg/dL 1.6-2.6 627) POCT-GLUCOSE [id number] 21:28:00 Test Item Value Reference Range Interpretation Comments POC-GLUCOSE METER 240 mg/dL 70-110 H TESTED AT [place] [address] ([facility]) (test code = [facility] [place] 1538) [id number] POCT-GLUCOSE [id number] 18:29:00 Test Item Value Reference Range Interpretation Comments POC-GLUCOSE METER 255 mg/dL 70-110 H TESTED AT [place] [address] ([facility]) (test code = [place] 1538) [address] POCT-GLUCOSE [id number] 16:59:00 Test Item Value Reference Range Interpretation Comments POC-GLUCOSE METER 207 mg/dL 70-110 H TESTED AT [place] [address] ([facility]) (test code = [place] 1538) [address] SURGICALLY OBTAINED CULTURE + GRAM [id number] 16:19:00 Test Item Value Reference Range Interpretation Comments CULTURE ([facility]) (test code = 1095) Amikacin (test code = S 1) Aztreonam (test code = R 32) Cefepime (test code = S 51) Cefoxitin (test code = R 68) Ceftazidime (test code R = 27) Ceftriaxone (test code R = 52) Gentamicin (test code S = 18) Levofloxacin (test S code = 22) Meropenem (test code = S 34) Nitrofurantoin (test S code = 23) Piperacillin + R Tazobactam (test code = 29) Tetracycline (test S code = 2) Tobramycin (test code S = 25) Trimethoprim + S Sulfamethoxazole (test code = 47) CULTURE (BEAKER) (test A 1+ En terobacter code = 1095) cloacae complexAmpC Positive GRAM STAIN RESULT 1+ WBCs (BEAKER) (test code = 1123) GRAM STAIN RESULT No organisms (BEAKER) (test code = seen 492429) POCT-GLUCOSE [id number] 08:47:00 Test Item Value Reference Range Interpretation Comments POC-GLUCOSE METER 167 mg/dL 70-110 H TESTED AT [place] [address] [facility] (test code = [facility] 1538) [id number] BASIC METABOLIC [id number] 08:10:00 Test Item Value Reference Range Interpretation Comments SODIUM (BEAKER) 137 meq/L 136-145 (test code = 381) POTASSIUM (BEAKER) 3.7 meq/L 3.5-5.1 (test code = 379) CHLORIDE (BEAKER) 106 meq/L 98-107 (test code = 382) CO2 (BEAKER) (test 21 meq/L 22-29 L code = 355) BLOOD UREA NITROGEN 55 mg/dL 7-21 H (BEAKER) (test code = 354) CREATININE (BEAKER) 2.06 mg/dL 0.57-1.25 H (test code = 358) GLUCOSE RANDOM 168 mg/dL 70-105 H (BEAKER) (test code = 652) CALCIUM (BEAKER) 7.5 mg/dL 8.4-10.2 L (test code = 697) EGFR (BEAKER) (test 32 mL/min/1.73 ESTIMA RENUKA GFR IS code = 1092) sq m NOT ACCURATE CREATININE CLEARANCE IN PREDICTING GLOMERULAR FILTRATION RATE . ESTIMATED GFR I S NOT APPLICABLE FOR DIALYSIS PATIEN TS. POCT-GLUCOSE [id number] 20:37:00 Test Item Value Reference Range Interpretation Comments POC-GLUCOSE METER 232 mg/dL 70-110 H TEST[facility] AT [place] [address] [facility] (test code = [facility] 1538) [id number] POCT-GLUCOSE [id number] 17:10:00 Test Item Value Reference Range Interpretation Comments POC-GLUCOSE METER 256 mg/dL 70-110 H TESTED AT [place] [address] ([facility]) (test code = [facility] 1538) [id number] RAD, ABDOMEN/KUB, 1 VIEW [id number] 13:37:00Reason for exam:->abdominal pain,FINAL REPORT Comparison: None Discussion: Abdomen: Bowel gas pattern is nonobstructed. Evaluation for free intraperitoneal air is limited due to technique and positioning. Stentprojects over the lower abdomen and pelvis. No acute skeletal abnormality. Impression: 1. Nonspecific bowel gas pattern. Signed: Emerson Palacios MDReport Verified Date/Time: 08/03/2017 13:37:00 Reading Location: [address] Transitional Reading Room POCT-GLUCOSE [id number] 12:03:00 Test Item Value Reference Range Interpretation Comments POC-GLUCOSE METER 233 mg/dL 70-110 H TESTED AT [place] [address] ([facility]) (test code = [facility] [place] [address]558) [id number] RAD, CHEST, 1 VIEW, NON [id number] 08:43:00Reason for exam:->chest tubeShould this be performed at the bedside?->YesFINAL REPORT CLINICAL HISTORY: chest tube TECHNIQUE: 1 view of the chest. COMP ARISON: 08/02/2017 IMPRESSION: A midline chest drain and tube are again seen. There is no pneumothorax. Mild bilateral airspace opacities and trace pleural effusions are again seen. The cardiomediastinal silhouette is magnified by technique with sternotomy wires. Signed: Audrey Pyle MDReport Verified Date/Time: 08/03/2017 08:43:25 Reading Location: [facility] C013V Neuro Reading Room -GLUCOSE [id number] 07:32:00 Test Item Value Reference Range Interpretation Comments POC-GLUCOSE METER 182 mg/dL 70-110 H TESTED AT [place] [address] ([facility]) (test code = [facility] 1538) [id number] BASIC METABOLIC [id number] 06:44:00 Test Item Value Reference Range Interpretation Comments SODIUM (BEAKER) 135 meq/L 136-145 L (test code = 381) POTASSIUM (BEAKER) 3.5 meq/L 3.5-5.1 (test code = 379) CHLORIDE (BEAKER) 100 meq/L 98-107 (test code = 382) CO2 (BEAKER) (test 23 meq/L 22-29 code = 355) BLOOD UREA NITROGEN 56 mg/dL 7-21 H (BEAKER) (test code = 354) CREATININE (BEAKER) 2.47 mg/dL 0.57-1.25 H (test code = 358) GLUCOSE RANDOM 160 mg/dL 70-105 H (BEAKER) (test code = 652) CALCIUM (BEAKER) 7.6 mg/dL 8.4-10.2 L (test code = 697) EGFR (BEAKER) (test 26 mL/min/1.73 ESTIMA RENUKA GFR IS code = 1092) sq m NOT ACCURATE CREATININE CLEARANCE IN PREDICTING GLOMERULAR FILTRATION RATE . ESTIMATED GFR I S NOT APPLICABLE FOR DIALYSIS PATIEN TS. BLOOD [id number] 06:14:00 Test Item Value Reference Range Interpretation Comments CULTURE (BEAKER) (test code = 1095) Amikacin (test code = S 1) Aztreonam (test code = R 32) Cefepime (test code = S 51) Cefoxitin (test code = R 68) Ceftazidime (test code R = 27) Ceftriaxone (test code R = 52) Ertapenem (test code = S 38) Gentamicin (test code S = 18) Levofloxacin (test S code = 22) Meropenem (test code = S 34) Nitrofurantoin (test S code = 23) Piperacillin + R Tazobactam (test code = 29) Tetracycline (test S code = 2) Tobramycin (test code S = 25) Trimethoprim + S Sulfamethoxazole (test code = 47) CULTURE (BEAKER) (test A From Aerobic And code = 1095) Anaerobic Bottl es Enterobacter cloacae GRAM STAIN RESULT From aerobic (BEAKER) (test code = and anaerobic 1123) bottles: gram negative rods ENTEROBACTER CLOACAE COMPLEX DETECTEDKPC (a carbapenamase gene) not detectedFirst line therapy: cefepime or meropenemOther organisms and resistance markers not contained in this PCR panel cannot be excluded and follow-up of traditional culture results is required. This sample was tested at the [facility] C linical Microbiology Laboratory using the Black Raven and Stag Blood Culture ID Panel. This test is FDAcleared for in vitro diagnostic use and has been verified and approved by the [facility] Clinical Microbiology laboratory for clinical use. Reference Range: Not DetectedSPIN/CONCENTRATION [id number] 05:57:00 Test Item Value Reference Range Interpretation Comments CONCENTRATION CHARGED (BEAKER) (test Done code = 2657) CBC W/PLT COUNT & AUTO [id number] 05:37:00 Test Item Value Reference Range Interpretation Comments WHITE BLOOD CELL COUNT (BEAKER) 17.8 K/ L 3.5-10.5 H (test code = 775) RED BLOOD CELL COUNT (BEAKER) 2.71 M/ L 4.63-6.08 L (test code = 761) HEMOGLOBIN (BEAKER) (test code = 8.8 GM/DL 13.7-17.5 L 410) HEMATOCRIT (BEAKER) (test code = 27.5 % 40.1-51.0 L 411) MEAN CORPUSCULAR VOLUME (BEAKER) 101.5 fL 79.0-92.2 H (test code = 753) MEAN CORPUSCULAR HEMOGLOBIN 32.5 pg 25.7-32.2 H (BEAKER) (test code = 751) MEAN CORPUSCULAR HEMOGLOBIN CONC 32.0 GM/DL 32.3-36.5 L (BEAKER) (test code = 752) RED CELL DISTRIBUTION WIDTH 15.5 % 11.6-14.4 H (BEAKER) (test code = 412) PLATELET COUNT (BEAKER) (test 370 K/CU MM 150-450 code = 756) MEAN PLATELET VOLUME (BEAKER) 10.8 fL 9.4-12.4 (test code = 754) NUCLEATED RED BLOOD CELLS 0 /100 WBC 0-0 (BEAKER) (test code = 413) NEUTROPHILS RELATIVE PERCENT 84 % (BEAKER) (test code = 429) LYMPHOCYTES RELATIVE PERCENT 7 % (BEAKER) (test code = 430) MONOCYTES RELATIVE PERCENT 6 % (BEAKER) (test code = 431) EOSINOPHILS RELATIVE PERCENT 1 % (BEAKER) (test code = 432) BASOPHILS RELATIVE PERCENT 0 % (BEAKER) (test code = 437) NEUTROPHILS ABSOLUTE COUNT 14.95 K/ L 1.78-5.38 H (BEAKER) (test code = 670) LYMPHOCYTES ABSOLUTE COUNT 1.17 K/ L 1.32-3.57 L (BEAKER) (test code = 414) MONOCYTES ABSOLUTE COUNT (BEAKER) 1.12 K/ L 0.30-0.82 H (test code = 415) EOSINOPHILS ABSOLUTE COUNT 0.22 K/ L 0.04-0.54 (BEAKER) (test code = 416) BASOPHILS ABSOLUTE COUNT (BEAKER) 0.04 K/ L 0.01-0.08 (test code = 417) IMMATURE GRANULOCYTES-RELATIVE 1 % 0-1 PERCENT (BEAKER) (test code = 2801) POCT-GLUCOSE [id number] 20:08:00 Test Item Value Reference Range Interpretation Comments POC-GLUCOSE METER 188 mg/dL 70-[address] [facility] 67[address] ([facility]) (test code = MARIA ESTHER Cash [facility] 1538) [address] RAD, CHEST, 1 VIEW, NON [id number] 18:24:00Reason for exam:->chest tubeShould this be performed [...] findings: None. Signed: JR Spencer Robert MDReport Leon ified Date/Time: 08/02/2017 18:24:48 Reading Location: [address] Reading Room POCT-GLUCOSE [id number] 17:07:00 Test Item Value Reference Range Interpretation Comments POC-GLUCOSE METER 183 mg/dL 70-[address] [facility] [address] ([facility]) (test code = MARIA ESTHER Cash [facility] 1538) [address] MISCELLANEOUS LAB [id number] 16:20:00 Test Item Value Reference Range Interpretation Comments SCAN RESULT (test code = 4740177) Result comments: ENTEROBACTER CLOACAE COMPLEX DETECTED KPC (a carbapenamase gene) not detected Firstline therapy: cefepime or meropenem Other organisms and resistance markers not contained in this PCRpanel cannot be excluded and follow- up of traditional culture results is required. This sample wastested at the [facility] Clinical Microbiology Laboratory using the Black Raven and Stag Blood Culture ID Panel. This test is FDA cleared for in vitro diagnostic use and has been verified and approved by the [facility] Clinical Microbiology laboratory for clinical use. Reference Range: Not DetectedPOCT-GLUCOSE [id number] 12:45:00 Test Item Value Reference Range Interpretation Comments POC-GLUCOSE METER 262 mg/dL 70-[address] [facility] 67[address] (BEAKER) (test code = MARGARETMAYA LLOYD 1538) [address] CBC W/PLT COUNT & AUTO [id number] 11:23:00 Test Item Value Reference Range Interpretation Comments WHITE BLOOD CELL COUNT (BEAKER) 11.9 K/ L 3.5-10.5 H (test code = 775) RED BLOOD CELL COUNT (BEAKER) 2.77 M/ L 4.63-6.08 L (test code = 761) HEMOGLOBIN (BEAKER) (test code = 8.9 GM/DL 13.7-17.5 L 410) HEMATOCRIT (BEAKER) (test code = 28.1 % 40.1-51.0 L 411) MEAN CORPUSCULAR VOLUME (BEAKER) 101.4 fL 79.0-92.2 H (test code = 753) MEAN CORPUSCULAR HEMOGLOBIN 32.1 pg 25.7-32.2 (BEAKER) (test code = 751) MEAN CORPUSCULAR HEMOGLOBIN CONC 31.7 GM/DL 32.3-36.5 L (BEAKER) (test code = 752) RED CELL DISTRIBUTION WIDTH 15.4 % 11.6-14.4 H (BEAKER) (test code = 412) PLATELET COUNT (BEAKER) (test 343 K/CU MM 150-450 code = 756) MEAN PLATELET VOLUME (BEAKER) 11.3 fL 9.4-12.4 (test code = 754) NUCLEATED RED BLOOD CELLS 1 /100 WBC 0-0 H (BEAKER) (test code = 413) NEUTROPHILS RELATIVE PERCENT 83 % (BEAKER) (test code = 429) LYMPHOCYTES RELATIVE PERCENT 6 % (BEAKER) (test code = 430) MONOCYTES RELATIVE PERCENT 8 % (BEAKER) (test code = 431) EOSINOPHILS RELATIVE PERCENT 1 % (BEAKER) (test code = 432) BASOPHILS RELATIVE PERCENT 0 % (BEAKER) (test code = 437) NEUTROPHILS ABSOLUTE COUNT 9.84 K/ L 1.78-5.38 H (BEAKER) (test code = 670) LYMPHOCYTES ABSOLUTE COUNT 0.73 K/ L 1.32-3.57 L (BEAKER) (test code = 414) MONOCYTES ABSOLUTE COUNT (BEAKER) 0.93 K/ L 0.30-0.82 H (test code = 415) EOSINOPHILS ABSOLUTE COUNT 0.13 K/ L 0.04-0.54 (BEAKER) (test code = 416) BASOPHILS ABSOLUTE COUNT (BEAKER) 0.04 K/ L 0.01-0.08 (test code = 417) IMMATURE GRANULOCYTES-RELATIVE 2 % 0-1 H PERCENT (BEAKER) (test code = 2801) (MANUAL DIFFERENTIAL)2017-08-02 11:23:00 Test Item Value Reference Range Interpretation Comments TOTAL COUNTED (BEAKER) (test code = 1351) WBC MORPHOLOGY (BEAKER) (test Normal code = 487) LARGE PLT(BEAKER) (test code = Present 2156) ACANTHOCYTES (BEAKER) (test code 1+ few = 471) ANISOCYTOSIS (BEAKER) (test code 1+ few = 961) HYPOCHROMIA (BEAKER) (test code = 1+ few 963) MACROCYTES (BEAKER) (test code = 1+ few 964) POIKILOCYTES (BEAKER) (test code 1+ few = 966) POLYCHROMATOPHILLIC RBCS(BEAKER) 2+ moderate (test code = 478) POCT-GLUCOSE [id number] 07:15:00 Test Item Value Reference Range Interpretation Comments POC-GLUCOSE METER 218 mg/dL 70-[address] [facility] 67[address] (BEAKER) (test code = MARIA ESTHER [place] 1538) [address] BASIC METABOLIC [id number] 06:37:00 Test Item Value Reference Range Interpretation Comments SODIUM (BEAKER) 137 meq/L 136-145 (test code = 381) POTASSIUM (BEAKER) 3.6 meq/L 3.5-5.1 (test code = 379) CHLORIDE (BEAKER) 104 meq/L 98-107 (test code = 382) CO2 (BEAKER) (test 23 meq/L 22-29 code = 355) BLOOD UREA NITROGEN 51 mg/dL 7-21 H (BEAKER) (test code = 354) CREATININE (BEAKER) 2.37 mg/dL 0.57-1.25 H (test code = 358) GLUCOSE RANDOM 242 mg/dL 70-105 H (BEAKER) (test code = 652) CALCIUM (BEAKER) 7.4 mg/dL 8.4-10.2 L (test code = 697) EGFR (BEAKER) (test 27 mL/min/1.73 ESTIMA RENUKA GFR IS code = 1092) sq m NOT ACCURATE CREATININE CLEARANCE IN PREDICTING GLOMERULAR FILTRATION RATE . ESTIMATED GFR I S NOT APPLICABLE FOR DIALYSIS PATIEN TS. POCT-GLUCOSE [id number] 21:51:00 Test Item Value Reference Range Interpretation Comments POC-GLUCOSE METER 237 mg/dL 70-110 H TESTED AT [place] [address] ([facility]) (test code = [facility] 1538) [address] POCT-GLUCOSE [id number] 17:18:00 Test Item Value Reference Range Interpretation Comments POC-GLUCOSE METER 175 mg/dL 70-110 H TESTED AT [place] [address] ([facility]) (test code = [facility] 1538) [address] POCT-GLUCOSE [id number] 16:29:00 Test Item Value Reference Range Interpretation Comments POC-GLUCOSE METER 182 mg/dL 70-110 H TESTED AT [place] [address] ([facility]) (test code = [facility] 1538) [address] RAD, CHEST, 1 VIEW, NON [id number] 16:22:00Reason for exam:->Post opShould this be performed [...] MDReport Verified Date/Time: 08/01/2017 16:22:20 Reading Location: [facility] [id number] Consult Reading Room [facility] W/PLT COUNT & AUTO [id number] 09:03:00 Test Item Value Reference Range Interpretation Comments WHITE BLOOD CELL COUNT (BEAKER) 12.3 K/ L 3.5-10.5 H (test code = 775) RED BLOOD CELL COUNT (BEAKER) 3.13 M/ L 4.63-6.08 L (test code = 761) HEMOGLOBIN (BEAKER) (test code = 9.9 GM/DL 13.7-17.5 L 410) HEMATOCRIT (BEAKER) (test code = 31.9 % 40.1-51.0 L 411) MEAN CORPUSCULAR VOLUME (BEAKER) 101.9 fL 79.0-92.2 H (test code = 753) MEAN CORPUSCULAR HEMOGLOBIN 31.6 pg 25.7-32.2 (BEAKER) (test code = 751) MEAN CORPUSCULAR HEMOGLOBIN CONC 31.0 GM/DL 32.3-36.5 L (BEAKER) (test code = 752) RED CELL DISTRIBUTION WIDTH 15.2 % 11.6-14.4 H (BEAKER) (test code = 412) PLATELET COUNT (BEAKER) (test 317 K/CU MM 150-450 code = 756) MEAN PLATELET VOLUME (BEAKER) 10.8 fL 9.4-12.4 (test code = 754) NUCLEATED RED BLOOD CELLS 1 /100 WBC 0-0 H (BEAKER) (test code = 413) NEUTROPHILS RELATIVE PERCENT 81 % (BEAKER) (test code = 429) LYMPHOCYTES RELATIVE PERCENT 8 % (BEAKER) (test code = 430) MONOCYTES RELATIVE PERCENT 7 % (BEAKER) (test code = 431) EOSINOPHILS RELATIVE PERCENT 1 % (BEAKER) (test code = 432) BASOPHILS RELATIVE PERCENT 0 % (BEAKER) (test code = 437) NEUTROPHILS ABSOLUTE COUNT 9.99 K/ L 1.78-5.38 H (BEAKER) (test code = 670) LYMPHOCYTES ABSOLUTE COUNT 0.94 K/ L 1.32-3.57 L (BEAKER) (test code = 414) MONOCYTES ABSOLUTE COUNT (BEAKER) 0.88 K/ L 0.30-0.82 H (test code = 415) EOSINOPHILS ABSOLUTE COUNT 0.17 K/ L 0.04-0.54 (BEAKER) (test code = 416) BASOPHILS ABSOLUTE COUNT (BEAKER) 0.05 K/ L 0.01-0.08 (test code = 417) IMMATURE GRANULOCYTES-RELATIVE 2 % 0-1 H PERCENT (BEAKER) (test code = 2801) (MANUAL DIFFERENTIAL)2017-08-01 09:03:00 Test Item Value Reference Range Interpretation Comments TOTAL COUNTED (BEAKER) (test code = 1351) POCT-GLUCOSE [id number] 07:50:00 Test Item Value Reference Range Interpretation Comments POC-GLUCOSE METER 181 mg/dL 70-[address] [facility] 67[address] (BEAKER) (test code = [place] 1538) [address] CALCIUM, [id number] 06:10:00 Test Item Value Reference Range Interpretation Comments CALCIUM IONIZED (BEAKER) (test 0.96 mmol/L 1.12-1.27 L code = 698) PH, BLOOD (BEAKER) (test code = 7.38 1810) BASIC METABOLIC [id number] 04:43:00 Test Item Value Reference Range Interpretation Comments SODIUM (BEAKER) 140 meq/L 136-145 (test code = 381) POTASSIUM (BEAKER) 3.6 meq/L 3.5-5.1 (test code = 379) CHLORIDE (BEAKER) 104 meq/L 98-107 (test code = 382) CO2 (BEAKER) (test 26 meq/L 22-29 code = 355) BLOOD UREA NITROGEN 42 mg/dL 7-21 H (BEAKER) (test code = 354) CREATININE (BEAKER) 1.91 mg/dL 0.57-1.25 H (test code = 358) GLUCOSE RANDOM 172 mg/dL 70-105 H (BEAKER) (test code = 652) CALCIUM (BEAKER) 8.0 mg/dL 8.4-10.2 L (test code = 697) EGFR (BEAKER) (test 35 mL/min/1.73 ESTIMA RENUKA GFR IS code = 1092) sq m NOT ACCURATE CREATININE CLEARANCE IN PREDICTING GLOMERULAR FILTRATION RATE . ESTIMATED GFR I S NOT APPLICABLE FOR DIALYSIS PATIEN TS. POCT-GLUCOSE [id number] 21:15:00 Test Item Value Reference Range Interpretation Comments POC-GLUCOSE METER 233 mg/dL 70-[address] [facility] [address] ([facility]) (test code = MARIA ESTHER Cash [place] 1538) [address] POCT-GLUCOSE [id number] 17:44:00 Test Item Value Reference Range Interpretation Comments POC-GLUCOSE METER 161 mg/dL 70-[address] [facility] 67[address] ([facility]) (test code = MARIA ESTHER Cash [place] 1538) [address] WOUND CULTURE + GRAM [id number] 13:50:00 Test Item Value Reference Range Interpretation Comments CULTURE ([facility]) (test code = 1095) Amikacin (test code = Susceptible 0-16 S 1) , Resistant <0 or >16 Aztreonam (test code = Susceptible 0-4 , R 32) Resistant <0 or >4 Cefepime (test code = Susceptible <=2 , 51) Dose Dependent Susceptible >2 , Resistant Ceftazidime (test code Susceptible 0-4 , R = 27) Resistant <0 or >4 Ceftriaxone (test code Susceptible 0-1 , R = 52) Resistant <0 or >1 Ciprofloxacin (test Susceptible 0-1 , S code = 7) Resistant <0 or >1 Ertapenem (test code = Susceptible 0-0.5 S 38) , Resistant <0 or >.5 Gentamicin (test code Susceptible 0-4 , S = 18) Resistant <0 or >4 Imipenem (test code = Susceptible 0-1 , S 19) Resistant <0 or >1 Levofloxacin (test Susceptible 0-2 , R code = 22) Resistant <0 or >2 Meropenem (test code = Susceptible 0-4 , S 34) Resistant <0 or >4 Minocycline (test code Susceptible 0-4 , S = 35) Resistant <0 or >4 Piperacillin + Susceptible 0-16 R Tazobactam (test code , Resistant <0 or = 29) >16 Tetracycline (test Susceptible 0-4 , S code = 2) Resistant <0 or >4 Tobramycin (test code Susceptible 0-4 , S = 25) Resistant <0 or >4 Trimethoprim + Susceptible 0-40 S Sulfamethoxazole (test , Resistant <0 or code = 47) >40 CULTURE (BEAKER) (test A 2+ En terobacter code = 1095) cloacae GRAM STAIN RESULT 2+ WBCs (BEAKER) (test code = 1123) GRAM STAIN RESULT <1+ gram (BEAKER) (test code = positive rods 189224) POCT-GLUCOSE [id number] 12:36:00 Test Item Value Reference Range Interpretation Comments POC-GLUCOSE METER 189 mg/dL 70-[address] [facility] 67[address] (BEAKER) (test code = MARIA ESTHER [place] 1538) [address] CBC W/PLT COUNT & AUTO [id number] 08:34:00 Test Item Value Reference Range Interpretation Comments WHITE BLOOD CELL COUNT (BEAKER) 12.2 K/ L 3.5-10.5 H (test code = 775) RED BLOOD CELL COUNT (BEAKER) 2.94 M/ L 4.63-6.08 L (test code = 761) HEMOGLOBIN (BEAKER) (test code = 9.5 GM/DL 13.7-17.5 L 410) HEMATOCRIT (BEAKER) (test code = 30.4 % 40.1-51.0 L 411) MEAN CORPUSCULAR VOLUME (BEAKER) 103.4 fL 79.0-92.2 H (test code = 753) MEAN CORPUSCULAR HEMOGLOBIN 32.3 pg 25.7-32.2 H (BEAKER) (test code = 751) MEAN CORPUSCULAR HEMOGLOBIN CONC 31.3 GM/DL 32.3-36.5 L (BEAKER) (test code = 752) RED CELL DISTRIBUTION WIDTH 15.4 % 11.6-14.4 H (BEAKER) (test code = 412) PLATELET COUNT (BEAKER) (test 247 K/CU MM 150-450 code = 756) MEAN PLATELET VOLUME (BEAKER) 10.5 fL 9.4-12.4 (test code = 754) NUCLEATED RED BLOOD CELLS 1 /100 WBC 0-0 H (BEAKER) (test code = 413) NEUTROPHILS RELATIVE PERCENT 75 % (BEAKER) (test code = 429) LYMPHOCYTES RELATIVE PERCENT 10 % (BEAKER) (test code = 430) MONOCYTES RELATIVE PERCENT 9 % (BEAKER) (test code = 431) EOSINOPHILS RELATIVE PERCENT 3 % (BEAKER) (test code = 432) BASOPHILS RELATIVE PERCENT 0 % (BEAKER) (test code = 437) NEUTROPHILS ABSOLUTE COUNT 9.16 K/ L 1.78-5.38 H (BEAKER) (test code = 670) LYMPHOCYTES ABSOLUTE COUNT 1.18 K/ L 1.32-3.57 L (BEAKER) (test code = 414) MONOCYTES ABSOLUTE COUNT (BEAKER) 1.08 K/ L 0.30-0.82 H (test code = 415) EOSINOPHILS ABSOLUTE COUNT 0.35 K/ L 0.04-0.54 (BEAKER) (test code = 416) BASOPHILS ABSOLUTE COUNT (BEAKER) 0.04 K/ L 0.01-0.08 (test code = 417) IMMATURE GRANULOCYTES-RELATIVE 3 % 0-1 H PERCENT (BEAKER) (test code = 2801) (MANUAL DIFFERENTIAL)2017-07-31 08:34:00 Test Item Value Reference Range Interpretation Comments TOTAL COUNTED (BEAKER) (test code = 1351) POCT-GLUCOSE [id number] 07:54:00 Test Item Value Reference Range Interpretation Comments POC-GLUCOSE METER 252 mg/dL 70-[address] [facility] 67[address] (BEAKER) (test code = MARIA ESTHER [place] 1538) [address] BASIC METABOLIC [id number] 05:51:00 Test Item Value Reference Range Interpretation Comments SODIUM (BEAKER) 141 meq/L 136-145 (test code = 381) POTASSIUM (BEAKER) 3.8 meq/L 3.5-5.1 (test code = 379) CHLORIDE (BEAKER) 106 meq/L 98-107 (test code = 382) CO2 (BEAKER) (test 26 meq/L 22-29 code = 355) BLOOD UREA NITROGEN 46 mg/dL 7-21 H (BEAKER) (test code = 354) CREATININE (BEAKER) 2.01 mg/dL 0.57-1.25 H (test code = 358) GLUCOSE RANDOM 165 mg/dL 70-105 H (BEAKER) (test code = 652) CALCIUM (BEAKER) 7.7 mg/dL 8.4-10.2 L (test code = 697) EGFR (BEAKER) (test 33 mL/min/1.73 ESTIMA RENUKA GFR IS code = 1092) sq m NOT ACCURATE CREATININE CLEARANCE IN PREDICTING GLOMERULAR FILTRATION RATE . ESTIMATED GFR I S NOT APPLICABLE FOR DIALYSIS PATIEN TS. LIPID [id number] 05:48:00 Test Item Value Reference Range Interpretation Comments TRIGLYCERIDES (BEAKER) (test code = 140 mg/dL 540) CHOLESTEROL (BEAKER) (test code = 106 mg/dL 631) HDL CHOLESTEROL (BEAKER) (test code 19 mg/dL = 976) LDL CHOLESTEROL CALCULATED (BEAKER) 59 mg/dL (test code = 633) Triglyceride Reference Range: Low Risk <150 Borderline 150-199 High Risk 200-499 Very High Risk >=500Cholesterol Reference Range: Low Risk <200 Borderline 200-239 High Risk >240HDL Cholesterol Reference Range: Low Risk >=60 High Risk <40LDL Cholesterol Reference Range: Optimal <100 Near Optimal 100-129 Borderline 130-159 High 160-189 Very High >=190POCT-GLUCOSE [id number] 21:13:00 Test Item Value Reference Range Interpretation Comments POC-GLUCOSE METER 193 mg/dL 70-110 H TESTED AT [place] [address] (BEAKER) (test code = [facility] 1538) [address] POCT-GLUCOSE [id number] 17:46:00 Test Item Value Reference Range Interpretation Comments POC-GLUCOSE METER 214 mg/dL 70-110 H [facility] [place] [address] [facility] (test code = [facility] 1538) [address] [id number] 16:18:00 Test Item Value Reference Range Interpretation Comments POTASSIUM (BEAKER) (test code = 3.6 meq/L 3.5-5.1 379) POCT-GLUCOSE [id number] 13:06:00 Test Item Value Reference Range Interpretation Comments POC-GLUCOSE METER 230 mg/dL 70-110 H TESTED AT [place] [id number] [facility] (test code = [facility] 1538) [address] BASIC METABOLIC [id number] 08:41:00 Test Item Value Reference Range Interpretation Comments SODIUM (BEAKER) 145 meq/L 136-145 (test code = 381) POTASSIUM (BEAKER) 3.9 meq/L 3.5-5.1 Specimen slightly (test code = 379) hemolyzed CHLORIDE (BEAKER) 107 meq/L 98-107 (test code = 382) CO2 (BEAKER) (test 25 meq/L 22-29 code = 355) BLOOD UREA NITROGEN 52 mg/dL 7-21 H (BEAKER) (test code = 354) CREATININE (BEAKER) 2.09 mg/dL 0.57-1.25 H Specimen slightly (test code = 358) hemolyzed GLUCOSE RANDOM 170 mg/dL 70-105 H (BEAKER) (test code = 652) CALCIUM (BEAKER) 8.2 mg/dL 8.4-10.2 L (test code = 697) EGFR (BEAKER) (test 31 mL/min/1.73 ESTIMA RENUKA GFR IS code = 1092) sq m NOT ACCURATE CREATININE CLEARANCE IN PREDICTING GLOMERULAR FILTRATION RATE . ESTIMATED GFR I S NOT APPLICABLE FOR DIALYSIS PATIEN TS. RAD, CHEST, 1 VIEW, NON [id number] 08:23:00Reason for exam:->pulmonary congestionShould this be performed at the bedside?->YesFINAL REPORT CLINICAL HISTORY: pulmonary congestion TECHNIQUE: 1 view of the c hest. COMPARISON: 07/29/2017 IMPRESSION: The right jugular line appears to been removed. Bandlike opacities in the bilateral mid and lower lung zones are unchanged. Trace bilateral pleural effusions are again seen. Cardiomegaly is again seen poststernotomy. Signed: Audrey Pyleeport Verified Date/Time: 07/30/2017 08:23:04 Reading Location: [facility] Radiology Reading Room POCT- GLUCOSE [id number] 07:52:00 Test Item Value Reference Range Interpretation Comments POC-GLUCOSE METER 211 mg/dL 70-[address] [facility] 6720 (BEAKER) (test code = MARIA ESTHER Cash [place] 1530) [address] CBC W/PLT COUNT & AUTO [id number] 04:32:00 Test Item Value Reference Range Interpretation Comments WHITE BLOOD CELL COUNT (BEAKER) 12.3 K/ L 3.5-10.5 H (test code = 775) RED BLOOD CELL COUNT (BEAKER) 2.96 M/ L 4.63-6.08 L (test code = 761) HEMOGLOBIN (BEAKER) (test code = 9.4 GM/DL 13.7-17.5 L 410) HEMATOCRIT (BEAKER) (test code = 30.1 % 40.1-51.0 L 411) MEAN CORPUSCULAR VOLUME (BEAKER) 101.7 fL 79.0-92.2 H (test code = 753) MEAN CORPUSCULAR HEMOGLOBIN 31.8 pg 25.7-32.2 (BEAKER) (test code = 751) MEAN CORPUSCULAR HEMOGLOBIN CONC 31.2 GM/DL 32.3-36.5 L (BEAKER) (test code = 752) RED CELL DISTRIBUTION WIDTH 15.2 % 11.6-14.4 H (BEAKER) (test code = 412) PLATELET COUNT (BEAKER) (test 219 K/CU MM 150-450 code = 756) MEAN PLATELET VOLUME (BEAKER) 11.3 fL 9.4-12.4 (test code = 754) NUCLEATED RED BLOOD CELLS 2 /100 WBC 0-0 H (BEAKER) (test code = 413) NEUTROPHILS RELATIVE PERCENT 76 % (BEAKER) (test code = 429) LYMPHOCYTES RELATIVE PERCENT 8 % (BEAKER) (test code = 430) MONOCYTES RELATIVE PERCENT 10 % (BEAKER) (test code = 431) EOSINOPHILS RELATIVE PERCENT 3 % (BEAKER) (test code = 432) BASOPHILS RELATIVE PERCENT 0 % (BEAKER) (test code = 437) NEUTROPHILS ABSOLUTE COUNT 9.35 K/ L 1.78-5.38 H (BEAKER) (test code = 670) LYMPHOCYTES ABSOLUTE COUNT 0.97 K/ L 1.32-3.57 L (BEAKER) (test code = 414) MONOCYTES ABSOLUTE COUNT (BEAKER) 1.25 K/ L 0.30-0.82 H (test code = 415) EOSINOPHILS ABSOLUTE COUNT 0.41 K/ L 0.04-0.54 (BEAKER) (test code = 416) BASOPHILS ABSOLUTE COUNT (BEAKER) 0.04 K/ L 0.01-0.08 (test code = 417) IMMATURE GRANULOCYTES-RELATIVE 2 % 0-1 H PERCENT (BEAKER) (test code = 2801) POCT-GLUCOSE [id number] 18:50:00 Test Item Value Reference Range Interpretation Comments POC-GLUCOSE METER 139 mg/dL 70-[address] [facility] 67[address] (BEAKER) (test code = [place] 1538) [id number] 13:28:00 Test Item Value Reference Range Interpretation Comments POTASSIUM (BEAKER) (test code = 3.7 meq/L 3.5-5.1 379) CBC W/PLT COUNT & AUTO [id number] 13:25:00 Test Item Value Reference Range Interpretation Comments WHITE BLOOD CELL COUNT (BEAKER) 11.2 K/ L 3.5-10.5 H (test code = 775) RED BLOOD CELL COUNT (BEAKER) 2.67 M/ L 4.63-6.08 L (test code = 761) HEMOGLOBIN (BEAKER) (test code = 8.8 GM/DL 13.7-17.5 L 410) HEMATOCRIT (BEAKER) (test code = 27.3 % 40.1-51.0 L 411) MEAN CORPUSCULAR VOLUME (BEAKER) 102.2 fL 79.0-92.2 H (test code = 753) MEAN CORPUSCULAR HEMOGLOBIN 33.0 pg 25.7-32.2 H (BEAKER) (test code = 751) MEAN CORPUSCULAR HEMOGLOBIN CONC 32.2 GM/DL 32.3-36.5 L (BEAKER) (test code = 752) RED CELL DISTRIBUTION WIDTH 15.3 % 11.6-14.4 H (BEAKER) (test code = 412) PLATELET COUNT (BEAKER) (test 202 K/CU MM 150-450 code = 756) MEAN PLATELET VOLUME (BEAKER) 11.4 fL 9.4-12.4 (test code = 754) NUCLEATED RED BLOOD CELLS 3 /100 WBC 0-0 H (BEAKER) (test code = 413) NEUTROPHILS RELATIVE PERCENT 79 % (BEAKER) (test code = 429) LYMPHOCYTES RELATIVE PERCENT 8 % (BEAKER) (test code = 430) MONOCYTES RELATIVE PERCENT 9 % (BEAKER) (test code = 431) EOSINOPHILS RELATIVE PERCENT 2 % (BEAKER) (test code = 432) BASOPHILS RELATIVE PERCENT 0 % (BEAKER) (test code = 437) NEUTROPHILS ABSOLUTE COUNT 8.88 K/ L 1.78-5.38 H (BEAKER) (test code = 670) LYMPHOCYTES ABSOLUTE COUNT 0.89 K/ L 1.32-3.57 L (BEAKER) (test code = 414) MONOCYTES ABSOLUTE COUNT (BEAKER) 1.00 K/ L 0.30-0.82 H (test code = 415) EOSINOPHILS ABSOLUTE COUNT 0.18 K/ L 0.04-0.54 (BEAKER) (test code = 416) BASOPHILS ABSOLUTE COUNT (BEAKER) 0.03 K/ L 0.01-0.08 (test code = 417) IMMATURE GRANULOCYTES-RELATIVE 2 % 0-1 H PERCENT (BEAKER) (test code = 2801) (MANUAL DIFFERENTIAL)2017-07-29 13:25:00 Test Item Value Reference Range Interpretation Comments TOTAL COUNTED (BEAKER) (test code = 1351) POCT-GLUCOSE [id number] 12:44:00 Test Item Value Reference Range Interpretation Comments POC-GLUCOSE METER 251 mg/dL 70-[address] [facility] [address] ([facility]) (test code = MARIA ESTHER Cash [place] 1538) [address] RAD, CHEST, 1 VIEW, NON [id number] 09:58:00Reason for exam:->pulmonary congestionShould this be performed at the bedside?->YesFINAL REPORT CLINICAL HISTORY: pulmonary congestion TECHNIQUE: 1 view of the c hest. COMPARISON: 07/28/2017 IMPRESSION: The right central line is unchanged. Pulmonary vascular congestive findings are unchanged without new lobar consolidation. There is a trace right effusion. The cardiomediastinal silhouette is magnified by technique with sternotomy wires. Signed: Audrey Pyle [facility] Verified Date/Time: 07/29/2017 09:58:36 Reading Location: [facility] Radiology Reading Room POCT-GLUCOSE [id number] 08:36:00 Test Item Value Reference Range Interpretation Comments POC-GLUCOSE METER 198 mg/dL 70-[address] [facility] [address] ([facility]) (test code = MARIA ESTHER Cash [place] 1538) [address] CALCIUM, [id number] 06:14:00 Test Item Value Reference Range Interpretation Comments CALCIUM IONIZED (BEAKER) (test 0.98 mmol/L 1.12-1.27 L code = 698) PH, BLOOD (BEAKER) (test code = 7.43 1810) BASIC METABOLIC [id number] 05:40:00 Test Item Value Reference Range Interpretation Comments SODIUM (BEAKER) 146 meq/L 136-145 H (test code = 381) POTASSIUM (BEAKER) 3.3 meq/L 3.5-5.1 L (test code = 379) CHLORIDE (BEAKER) 108 meq/L 98-107 H (test code = 382) CO2 (BEAKER) (test 26 meq/L 22-29 code = 355) BLOOD UREA NITROGEN 63 mg/dL 7-21 H (BEAKER) (test code = 354) CREATININE (BEAKER) 2.25 mg/dL 0.57-1.25 H (test code = 358) GLUCOSE RANDOM 165 mg/dL 70-105 H (BEAKER) (test code = 652) CALCIUM (BEAKER) 8.2 mg/dL 8.4-10.2 L (test code = 697) EGFR (BEAKER) (test 29 mL/min/1.73 ESTIMA RENUKA GFR IS code = 1092) sq m NOT ACCURATE CREATININE CLEARANCE IN PREDICTING GLOMERULAR FILTRATION RATE . ESTIMATED GFR I S NOT APPLICABLE FOR DIALYSIS PATIEN TS. [id number] 05:36:00 Test Item Value Reference Range Interpretation Comments POTASSIUM (BEAKER) (test code = 3.3 meq/L 3.5-5.1 L 379) [id number] 05:36:00 Test Item Value Reference Range Interpretation Comments MAGNESIUM (BEAKER) (test code = 2.1 mg/dL 1.6-2.6 627) [id number] 01:31:00 Test Item Value Reference Range Interpretation Comments POTASSIUM (BEAKER) (test code = 3.5 meq/L 3.5-5.1 379) [id number] 01:31:00 Test Item Value Reference Range Interpretation Comments MAGNESIUM (BEAKER) (test code = 2.0 mg/dL 1.6-2.6 627) CALCIUM, [id number] 01:14:00 Test Item Value Reference Range Interpretation Comments CALCIUM IONIZED (BEAKER) (test 0.96 mmol/L 1.12-1.27 L code = 698) PH, BLOOD (BEAKER) (test code = 7.46 1810) POCT-GLUCOSE [id number] 21:48:00 Test Item Value Reference Range Interpretation Comments POC-GLUCOSE METER 200 mg/dL 70-[address] [facility] [address] (BEAKER) (test code = MARIA ESTHER [place] 1538) [address] BASIC METABOLIC [id number] 20:08:00 Test Item Value Reference Range Interpretation Comments SODIUM (BEAKER) 147 meq/L 136-145 H (test code = 381) POTASSIUM (BEAKER) 3.8 meq/L 3.5-5.1 (test code = 379) CHLORIDE (BEAKER) 109 meq/L 98-107 H (test code = 382) CO2 (BEAKER) (test 26 meq/L 22-29 code = 355) BLOOD UREA NITROGEN 66 mg/dL 7-21 H (BEAKER) (test code = 354) CREATININE (BEAKER) 2.32 mg/dL 0.57-1.25 H (test code = 358) GLUCOSE RANDOM 140 mg/dL 70-105 H (BEAKER) (test code = 652) CALCIUM (BEAKER) 8.8 mg/dL 8.4-10.2 (test code = 697) EGFR (BEAKER) (test 28 mL/min/1.73 ESTIMA RENUKA GFR IS code = 1092) sq m NOT ACCURATE CREATININE CLEARANCE IN PREDICTING GLOMERULAR FILTRATION RATE . ESTIMATED GFR I S NOT APPLICABLE FOR DIALYSIS PATIEN TS. [id number] 19:29:00 Test Item Value Reference Range Interpretation Comments POTASSIUM (BEAKER) (test code = 3.8 meq/L 3.5-5.1 379) [id number] 19:29:00 Test Item Value Reference Range Interpretation Comments MAGNESIUM (BEAKER) (test code = 2.2 mg/dL 1.6-2.6 627) CALCIUM, [id number] 19:16:00 Test Item Value Reference Range Interpretation Comments CALCIUM IONIZED (BEAKER) (test 1.04 mmol/L 1.12-1.27 L code = 698) PH, BLOOD (BEAKER) (test code = 7.48 1810) POCT-GLUCOSE [id number] 18:17:00 Test Item Value Reference Range Interpretation Comments POC-GLUCOSE METER 145 mg/dL 70-[address] [facility] [address] (BEAKER) (test code = MARIA ESTHER Cash [facility] 1538) [address] POCT-GLUCOSE [id number] 18:17:00 Test Item Value Reference Range Interpretation Comments POC-GLUCOSE METER 99 mg/dL 70-[address] [facility] [address] ([facility]) (test code = [place] [address]) POCT-GLUCOSE [id number] 18:17:00 Test Item Value Reference Range Interpretation Comments POC-GLUCOSE METER 132 mg/dL 70-110 H TESTED AT [place] [id number] [facility] (test code = MARIA ESTHER Cash [facility] 1538) [address] POCT-GLUCOSE [id number] 18:17:00 Test Item Value Reference Range Interpretation Comments POC-GLUCOSE METER 132 mg/dL 70-110 H TESTED AT [place] [address] ([facility] (test code = MARIA ESTHER Cash [facility] 1538) [address] CT, BRAIN, WITHOUT [id number] 18:16:00FINAL REPORT CT head without contrast. Comparisons: [...] Taty Osborne Verified Date/Time: 07/28/2017 18:16:35 POCT-GLUCOSE [id number] 16:20:00 Test Item Value Reference Range Interpretation Comments POC-GLUCOSE METER 183 mg/dL 70-[address] [facility] [address] (BEAKER) (test code = MARIA EST[place] 1538) [address] [id number] 15:02:00 Test Item Value Reference Range Interpretation Comments POTASSIUM (BEAKER) (test code = 3.7 meq/L 3.5-5.1 379) [id number] 15:02:00 Test Item Value Reference Range Interpretation Comments MAGNESIUM (BEAKER) (test code = 2.2 mg/dL 1.6-2.6 627) CALCIUM, [id number] 14:46:00 Test Item Value Reference Range Interpretation Comments CALCIUM IONIZED (BEAKER) (test 1.09 mmol/L 1.12-1.27 L code = 698) PH, BLOOD (BEAKER) (test code = 7.45 1810) BASIC METABOLIC [id number] 11:18:00 Test Item Value Reference Range Interpretation Comments SODIUM (BEAKER) 150 meq/L 136-145 H (test code = 381) POTASSIUM (BEAKER) 3.7 meq/L 3.5-5.1 (test code = 379) CHLORIDE (BEAKER) 112 meq/L 98-107 H (test code = 382) CO2 (BEAKER) (test 27 meq/L 22-29 code = 355) BLOOD UREA NITROGEN 64 mg/dL 7-21 H (BEAKER) (test code = 354) CREATININE (BEAKER) 2.30 mg/dL 0.57-1.25 H (test code = 358) GLUCOSE RANDOM 135 mg/dL 70-105 H (BEAKER) (test code = 652) CALCIUM (BEAKER) 8.8 mg/dL 8.4-10.2 (test code = 697) EGFR (BEAKER) (test 28 mL/min/1.73 ESTIMA RENUKA GFR IS code = 1092) sq m NOT ACCURATE CREATININE CLEARANCE IN PREDICTING GLOMERULAR FILTRATION RATE . ESTIMATED GFR I S NOT APPLICABLE FOR DIALYSIS PATIEN TS. RAD, CHEST, 1 VIEW, NON [id number] 08:31:00Reason for exam:->pulmonary congestionShould this be performed at the bedside?->YesFINAL REPORT CLINICAL HISTORY: pulmonary congestion TECHNIQUE: 1 view of the c hest. COMPARISON: 07/27/2017 IMPRESSION: The chest tubes have aerated. The right central line remains.There is no visualized evidence for pneumothorax, although the left lung base is excluded. The lung perkins are otherwise unchanged. The cardiomediastinal silhouette is magnified by technique with sternotomy wires. Signed: Audrey Pyle MDReport Verified Date/Time: 07/28/2017 08:31:10 Reading Location: [facility] Radiology Reading Room BASIC METABOLIC [id number] 06:16:00 Test Item Value Reference Range Interpretation Comments SODIUM (BEAKER) 149 meq/L 136-145 H (test code = 381) POTASSIUM (BEAKER) 4.0 meq/L 3.5-5.1 Specimen slightly (test code = 379) hemolyzed CHLORIDE (BEAKER) 112 meq/L 98-107 H (test code = 382) CO2 (BEAKER) (test 25 meq/L 22-29 code = 355) BLOOD UREA NITROGEN 61 mg/dL 7-21 H (BEAKER) (test code = 354) CREATININE (BEAKER) 2.28 mg/dL 0.57-1.25 H Specimen slightly (test code = 358) hemolyzed GLUCOSE RANDOM 127 mg/dL 70-105 H (BEAKER) (test code = 652) CALCIUM (BEAKER) 8.6 mg/dL 8.4-10.2 (test code = 697) EGFR (BEAKER) (test 28 mL/min/1.73 ESTIMA RENUKA GFR IS code = 1092) sq m NOT ACCURATE CREATININE CLEARANCE IN PREDICTING GLOMERULAR FILTRATION RATE . ESTIMATED GFR I S NOT APPLICABLE FOR DIALYSIS PATIEN TS. [id number] 06:07:00 Test Item Value Reference Range Interpretation Comments MAGNESIUM (BEAKER) 2.3 mg/dL 1.6-2.6 Specimen slightly (test code = 627) hemolyzed [id number] 06:07:00 Test Item Value Reference Range Interpretation Comments PHOSPHORUS (BEAKER) 3.5 mg/dL 2.3-4.7 Specimen slightly (test code = 604) hemolyzed [id number] 06:07:00 Test Item Value Reference Range Interpretation Comments POTASSIUM (BEAKER) 4.0 meq/L 3.5-5.1 Specimen slightly (test code = 379) hemolyzed CBC W/PLT COUNT & AUTO [id number] 05:51:00 Test Item Value Reference Range Interpretation Comments WHITE BLOOD CELL COUNT (BEAKER) 9.2 K/ L 3.5-10.5 (test code = 775) RED BLOOD CELL COUNT (BEAKER) 2.77 M/ L 4.63-6.08 L (test code = 761) HEMOGLOBIN (BEAKER) (test code = 9.0 GM/DL 13.7-17.5 L 410) HEMATOCRIT (BEAKER) (test code = 28.0 % 40.1-51.0 L 411) MEAN CORPUSCULAR VOLUME (BEAKER) 101.1 fL 79.0-92.2 H (test code = 753) MEAN CORPUSCULAR HEMOGLOBIN 32.5 pg 25.7-32.2 H (BEAKER) (test code = 751) MEAN CORPUSCULAR HEMOGLOBIN CONC 32.1 GM/DL 32.3-36.5 L (BEAKER) (test code = 752) RED CELL DISTRIBUTION WIDTH 14.9 % 11.6-14.4 H (BEAKER) (test code = 412) PLATELET COUNT (BEAKER) (test 157 K/CU MM 150-450 code = 756) MEAN PLATELET VOLUME (BEAKER) 12.4 fL 9.4-12.4 (test code = 754) NUCLEATED RED BLOOD CELLS 1 /100 WBC 0-0 H (BEAKER) (test code = 413) IMMATURE GRANULOCYTES-RELATIVE 1 % 0-1 PERCENT (BEAKER) (test code = 2801) CALCIUM, [id number] 05:13:00 Test Item Value Reference Range Interpretation Comments CALCIUM IONIZED (BEAKER) (test 1.09 mmol/L 1.12-1.27 L code = 698) PH, BLOOD (BEAKER) (test code = 7.45 1810) [id number] 00:51:00 Test Item Value Reference Range Interpretation Comments POTASSIUM (BEAKER) (test code = 4.1 meq/L 3.5-5.1 379) [id number] 00:51:00 Test Item Value Reference Range Interpretation Comments MAGNESIUM (BEAKER) (test code = 2.2 mg/dL 1.6-2.6 627) CALCIUM, [id number] 00:46:00 Test Item Value Reference Range Interpretation Comments CALCIUM IONIZED (BEAKER) (test 1.11 mmol/L 1.12-1.27 L code = 698) PH, BLOOD (BEAKER) (test code = 7.47 1810) POCT-GLUCOSE [id number] 22:39:00 Test Item Value Reference Range Interpretation Comments POC-GLUCOSE METER 167 mg/dL 70-[address] [facility] [address] (BEAKER) (test code = MARIA ESTHER [place] 15[address]) [address] BASIC METABOLIC [id number] 21:20:00 Test Item Value Reference Range Interpretation Comments SODIUM (BEAKER) 148 meq/L 136-145 H (test code = 381) POTASSIUM (BEAKER) 3.9 meq/L 3.5-5.1 (test code = 379) CHLORIDE (BEAKER) 111 meq/L 98-107 H (test code = 382) CO2 (BEAKER) (test 28 meq/L 22-29 code = 355) BLOOD UREA NITROGEN 53 mg/dL 7-21 H (BEAKER) (test code = 354) CREATININE (BEAKER) 2.26 mg/dL 0.57-1.25 H (test code = 358) GLUCOSE RANDOM 138 mg/dL 70-105 H (BEAKER) (test code = 652) CALCIUM (BEAKER) 9.2 mg/dL 8.4-10.2 (test code = 697) EGFR (BEAKER) (test 29 mL/min/1.73 ESTIMA RENUKA GFR IS code = 1092) sq m NOT ACCURATE CREATININE CLEARANCE IN PREDICTING GLOMERULAR FILTRATION RATE . ESTIMATED GFR I S NOT APPLICABLE FOR DIALYSIS PATIEN TS. [id number] 18:54:00 Test Item Value Reference Range Interpretation Comments POTASSIUM (BEAKER) (test code = 4.0 meq/L 3.5-5.1 379) [id number] 18:54:00 Test Item Value Reference Range Interpretation Comments MAGNESIUM (BEAKER) (test code = 2.3 mg/dL 1.6-2.6 627) CALCIUM, [id number] 18:10:00 Test Item Value Reference Range Interpretation Comments CALCIUM IONIZED (BEAKER) (test 1.13 mmol/L 1.12-1.27 code = 698) PH, BLOOD (BEAKER) (test code = 7.46 1810) BASIC METABOLIC [id number] 09:04:00 Test Item Value Reference Range Interpretation Comments SODIUM (BEAKER) 146 meq/L 136-145 H (test code = 381) POTASSIUM (BEAKER) 4.0 meq/L 3.5-5.1 (test code = 379) CHLORIDE (BEAKER) 111 meq/L 98-107 H (test code = 382) CO2 (BEAKER) (test 26 meq/L 22-29 code = 355) BLOOD UREA NITROGEN 46 mg/dL 7-21 H (BEAKER) (test code = 354) CREATININE (BEAKER) 2.35 mg/dL 0.57-1.25 H (test code = 358) GLUCOSE RANDOM 152 mg/dL 70-105 H (BEAKER) (test code = 652) CALCIUM (BEAKER) 9.0 mg/dL 8.4-10.2 (test code = 697) EGFR (BEAKER) (test 27 mL/min/1.73 ESTIMA RENUKA GFR IS code = 1092) sq m NOT ACCURATE CREATININE CLEARANCE IN PREDICTING GLOMERULAR FILTRATION RATE . ESTIMATED GFR I S NOT APPLICABLE FOR DIALYSIS PATIEN TS. RAD, CHEST, 1 VIEW, NON [id number] 05:14:00Reason for exam:->chest tubes FINAL REPORT Chest one view. Clinical history: chest [...] lobe. There is no pneumothorax. Signed: Taylor Alvaradoeport Verified Date/Time: 07/27/2017 05:14:18 Reading Location: [address] Transitional Reading Room Electronically signed by: TAYLOR ALVARADO MD 07/27/2017 05:14 AMCALCIUM, [id number] 04:52:00 Test Item Value Reference Range Interpretation Comments CALCIUM IONIZED (BEAKER) (test 1.13 mmol/L 1.12-1.27 code = 698) PH, BLOOD (BEAKER) (test code = 7.40 1810) BASIC METABOLIC [id number] 04:49:00 Test Item Value Reference Range Interpretation Comments SODIUM (BEAKER) 146 meq/L 136-145 H (test code = 381) POTASSIUM (BEAKER) 4.1 meq/L 3.5-5.1 (test code = 379) CHLORIDE (BEAKER) 111 meq/L 98-107 H (test code = 382) CO2 (BEAKER) (test 24 meq/L 22-29 code = 355) BLOOD UREA NITROGEN 42 mg/dL 7-21 H (BEAKER) (test code = 354) CREATININE (BEAKER) 2.41 mg/dL 0.57-1.25 H (test code = 358) GLUCOSE RANDOM 149 mg/dL 70-105 H (BEAKER) (test code = 652) CALCIUM (BEAKER) 9.5 mg/dL 8.4-10.2 (test code = 697) EGFR (BEAKER) (test 26 mL/min/1.73 ESTIMA RENUKA GFR IS code = 1092) sq m NOT ACCURATE CREATININE CLEARANCE IN PREDICTING GLOMERULAR FILTRATION RATE . ESTIMATED GFR I S NOT APPLICABLE FOR DIALYSIS PATIEN TS. OXYGEN SATURATION, [id number] 04:36:00 Test Item Value Reference Range Interpretation Comments O2 SATURATION (MEASURED) (BEAKER) 59.2 % (test code = 1455) [id number] 04:35:00 Test Item Value Reference Range Interpretation Comments POTASSIUM (BEAKER) (test code = 4.1 meq/L 3.5-5.1 379) [id number] 04:35:00 Test Item Value Reference Range Interpretation Comments MAGNESIUM (BEAKER) (test code = 2.0 mg/dL 1.6-2.6 627) [id number] 04:35:00 Test Item Value Reference Range Interpretation Comments PHOSPHORUS (BEAKER) (test code = 4.5 mg/dL 2.3-4.7 604) LACTIC ACID, ARTERIAL, WHOLE [id number] 04:16:00 Test Item Value Reference Range Interpretation Comments LACTATE BLOOD ARTERIAL (2) 1.3 mmol/L 0.5-2.2 (BEAKER) (test code = 2874) Effective 09/27/2015: Units/Reference Range ChangeNew: 0.5-2.2 mmol/L Previous: 5-20 mg/dLCBC W/PLT COUNT & AUTO [id number] 04:07:00 Test Item Value Reference Range Interpretation Comments WHITE BLOOD CELL COUNT (BEAKER) 11.9 K/ L 3.5-10.5 H (test code = 775) RED BLOOD CELL COUNT (BEAKER) 2.67 M/ L 4.63-6.08 L (test code = 761) HEMOGLOBIN (BEAKER) (test code = 9.0 GM/DL 13.7-17.5 L 410) HEMATOCRIT (BEAKER) (test code = 26.9 % 40.1-51.0 L 411) MEAN CORPUSCULAR VOLUME (BEAKER) 100.7 fL 79.0-92.2 H (test code = 753) MEAN CORPUSCULAR HEMOGLOBIN 33.7 pg 25.7-32.2 H (BEAKER) (test code = 751) MEAN CORPUSCULAR HEMOGLOBIN CONC 33.5 GM/DL 32.3-36.5 (BEAKER) (test code = 752) RED CELL DISTRIBUTION WIDTH 14.9 % 11.6-14.4 H (BEAKER) (test code = 412) PLATELET COUNT (BEAKER) (test 137 K/CU MM 150-450 L code = 756) MEAN PLATELET VOLUME (BEAKER) 11.3 fL 9.4-12.4 (test code = 754) NUCLEATED RED BLOOD CELLS 0 /100 WBC 0-0 (BEAKER) (test code = 413) NEUTROPHILS RELATIVE PERCENT 84 % (BEAKER) (test code = 429) LYMPHOCYTES RELATIVE PERCENT 7 % (BEAKER) (test code = 430) MONOCYTES RELATIVE PERCENT 6 % (BEAKER) (test code = 431) EOSINOPHILS RELATIVE PERCENT 2 % (BEAKER) (test code = 432) BASOPHILS RELATIVE PERCENT 0 % (BEAKER) (test code = 437) NEUTROPHILS ABSOLUTE COUNT 10.05 K/ L 1.78-5.38 H (BEAKER) (test code = 670) LYMPHOCYTES ABSOLUTE COUNT 0.78 K/ L 1.32-3.57 L (BEAKER) (test code = 414) MONOCYTES ABSOLUTE COUNT (BEAKER) 0.70 K/ L 0.30-0.82 (test code = 415) EOSINOPHILS ABSOLUTE COUNT 0.26 K/ L 0.04-0.54 (BEAKER) (test code = 416) BASOPHILS ABSOLUTE COUNT (BEAKER) 0.02 K/ L 0.01-0.08 (test code = 417) IMMATURE GRANULOCYTES-RELATIVE 1 % 0-1 PERCENT (BEAKER) (test code = 2801) BASIC METABOLIC [id number] 20:45:00 Test Item Value Reference Range Interpretation Comments SODIUM (BEAKER) 146 meq/L 136-145 H (test code = 381) POTASSIUM (BEAKER) 4.1 meq/L 3.5-5.1 (test code = 379) CHLORIDE (BEAKER) 111 meq/L 98-107 H (test code = 382) CO2 (BEAKER) (test 24 meq/L 22-29 code = 355) BLOOD UREA NITROGEN 38 mg/dL 7-21 H (BEAKER) (test code = 354) CREATININE (BEAKER) 2.48 mg/dL 0.57-1.25 H (test code = 358) GLUCOSE RANDOM 109 mg/dL 70-105 H (BEAKER) (test code = 652) CALCIUM (BEAKER) 9.4 mg/dL 8.4-10.2 (test code = 697) EGFR (BEAKER) (test 26 mL/min/1.73 ESTIMA RENUKA GFR IS code = 1092) sq m NOT ACCURATE CREATININE CLEARANCE IN PREDICTING GLOMERULAR FILTRATION RATE . ESTIMATED GFR I S NOT APPLICABLE FOR DIALYSIS PATIEN TS. BLOOD GAS, [id number] 20:35:00 Test Item Value Reference Range Interpretation Comments PH ARTERIAL (BEAKER) (test code = 7.48 7.35-7.45 H 383) PCO2 ARTERIAL (BEAKER) (test code 34 mmHg 35-45 L = 384) PO2 ARTERIAL (BEAKER) (test code = 114 mmHg 80-90 H 385) O2 SATURATION ARTERIAL (BEAKER) 98.4 % 96.0-97.0 H (test code = 386) HCO3 ARTERIAL (BEAKER) (test code 25 mmol/L 21-29 = 388) BASE EXCESS ARTERIAL (BEAKER) 1.6 mmol/L -2.0-3.0 (test code = 387) PATIENT TEMPERATURE (BEAKER) (test 37.3 C code = 1818) FIO2 (BEAKER) (test code = 1819) 52.0 % BLOOD GAS, [id number] 19:21:00 Test Item Value Reference Range Interpretation Comments PH ARTERIAL (BEAKER) (test code = 7.47 7.35-7.45 H 383) PCO2 ARTERIAL (BEAKER) (test code 36 mmHg 35-45 = 384) PO2 ARTERIAL (BEAKER) (test code = 141 mmHg 80-90 H 385) O2 SATURATION ARTERIAL (BEAKER) 98.9 % 96.0-97.0 H (test code = 386) HCO3 ARTERIAL (BEAKER) (test code 26 mmol/L 21-29 = 388) BASE EXCESS ARTERIAL (BEAKER) 2.3 mmol/L -2.0-3.0 (test code = 387) PATIENT TEMPERATURE (BEAKER) (test 37.1 C code = 1818) FIO2 (BEAKER) (test code = 1819) 100.0 % BASIC METABOLIC [id number] 17:33:00 Test Item Value Reference Range Interpretation Comments SODIUM (BEAKER) 146 meq/L 136-145 H (test code = 381) POTASSIUM (BEAKER) 4.2 meq/L 3.5-5.1 (test code = 379) CHLORIDE (BEAKER) 111 meq/L 98-107 H (test code = 382) CO2 (BEAKER) (test 27 meq/L 22-29 code = 355) BLOOD UREA NITROGEN 34 mg/dL 7-21 H (BEAKER) (test code = 354) CREATININE (BEAKER) 2.54 mg/dL 0.57-1.25 H (test code = 358) GLUCOSE RANDOM 112 mg/dL 70-105 H (BEAKER) (test code = 652) CALCIUM (BEAKER) 9.6 mg/dL 8.4-10.2 (test code = 697) EGFR (BEAKER) (test 25 mL/min/1.73 ESTIMA RENUKA GFR IS code = 1092) sq m NOT ACCURATE CREATININE CLEARANCE IN PREDICTING GLOMERULAR FILTRATION RATE . ESTIMATED GFR I S NOT APPLICABLE FOR DIALYSIS PATIEN TS. [id number] 17:29:00 Test Item Value Reference Range Interpretation Comments POTASSIUM (BEAKER) (test code = 4.2 meq/L 3.5-5.1 379) [id number] 17:29:00 Test Item Value Reference Range Interpretation Comments MAGNESIUM (BEAKER) (test code = 2.1 mg/dL 1.6-2.6 627) CBC W/PLT COUNT & AUTO [id number] 17:14:00 Test Item Value Reference Range Interpretation Comments WHITE BLOOD CELL COUNT (BEAKER) 13.2 K/ L 3.5-10.5 H (test code = 775) RED BLOOD CELL COUNT (BEAKER) 2.95 M/ L 4.63-6.08 L (test code = 761) HEMOGLOBIN (BEAKER) (test code = 9.6 GM/DL 13.7-17.5 L 410) HEMATOCRIT (BEAKER) (test code = 29.2 % 40.1-51.0 L 411) MEAN CORPUSCULAR VOLUME (BEAKER) 99.0 fL 79.0-92.2 H (test code = 753) MEAN CORPUSCULAR HEMOGLOBIN 32.5 pg 25.7-32.2 H (BEAKER) (test code = 751) MEAN CORPUSCULAR HEMOGLOBIN CONC 32.9 GM/DL 32.3-36.5 (BEAKER) (test code = 752) RED CELL DISTRIBUTION WIDTH 14.9 % 11.6-14.4 H (BEAKER) (test code = 412) PLATELET COUNT (BEAKER) (test 139 K/CU MM 150-450 L code = 756) MEAN PLATELET VOLUME (BEAKER) 12.0 fL 9.4-12.4 (test code = 754) NUCLEATED RED BLOOD CELLS 0 /100 WBC 0-0 (BEAKER) (test code = 413) NEUTROPHILS RELATIVE PERCENT 83 % (BEAKER) (test code = 429) LYMPHOCYTES RELATIVE PERCENT 7 % (BEAKER) (test code = 430) MONOCYTES RELATIVE PERCENT 7 % (BEAKER) (test code = 431) EOSINOPHILS RELATIVE PERCENT 2 % (BEAKER) (test code = 432) BASOPHILS RELATIVE PERCENT 0 % (BEAKER) (test code = 437) NEUTROPHILS ABSOLUTE COUNT 10.94 K/ L 1.78-5.38 H (BEAKER) (test code = 670) LYMPHOCYTES ABSOLUTE COUNT 0.91 K/ L 1.32-3.57 L (BEAKER) (test code = 414) MONOCYTES ABSOLUTE COUNT (BEAKER) 0.98 K/ L 0.30-0.82 H (test code = 415) EOSINOPHILS ABSOLUTE COUNT 0.22 K/ L 0.04-0.54 (BEAKER) (test code = 416) BASOPHILS ABSOLUTE COUNT (BEAKER) 0.04 K/ L 0.01-0.08 (test code = 417) IMMATURE GRANULOCYTES-RELATIVE 1 % 0-1 PERCENT (BEAKER) (test code = 2801) CALCIUM, [id number] 16:53:00 Test Item Value Reference Range Interpretation Comments CALCIUM IONIZED (BEAKER) (test 1.16 mmol/L 1.12-1.27 code = 698) PH, BLOOD (BEAKER) (test code = 7.47 5350) BLOOD GAS, [id number] 14:56:00 Test Item Value Reference Range Interpretation Comments PH ARTERIAL (BEAKER) (test code = 7.48 7.35-7.45 H 383) PCO2 ARTERIAL (BEAKER) (test code 36 mmHg 35-45 = 384) PO2 ARTERIAL (BEAKER) (test code = 150 mmHg 80-90 H 385) O2 SATURATION ARTERIAL (BEAKER) 99.1 % 96.0-97.0 H (test code = 386) HCO3 ARTERIAL (BEAKER) (test code 27 mmol/L 21-29 = 388) BASE EXCESS ARTERIAL (BEAKER) 2.9 mmol/L -2.0-3.0 (test code = 387) PATIENT TEMPERATURE (BEAKER) (test 36.7 C code = 1818) FIO2 (BEAKER) (test code = 1819) 40.0 % [id number] 13:15:00 Test Item Value Reference Range Interpretation Comments POTASSIUM (BEAKER) (test code = 4.2 meq/L 3.5-5.1 379) [id number] 13:15:00 Test Item Value Reference Range Interpretation Comments MAGNESIUM (BEAKER) (test code = 2.2 mg/dL 1.6-2.6 627) CALCIUM, [id number] 12:44:00 Test Item Value Reference Range Interpretation Comments CALCIUM IONIZED (BEAKER) (test 1.18 mmol/L 1.12-1.27 code = 698) PH, BLOOD (BEAKER) (test code = 7.47 1810) BASIC METABOLIC [id number] 10:34:00 Test Item Value Reference Range Interpretation Comments SODIUM (BEAKER) 145 meq/L 136-145 (test code = 381) POTASSIUM (BEAKER) 4.0 meq/L 3.5-5.1 (test code = 379) CHLORIDE (BEAKER) 112 meq/L 98-107 H (test code = 382) CO2 (BEAKER) (test 23 meq/L 22-29 code = 355) BLOOD UREA NITROGEN 31 mg/dL 7-21 H (BEAKER) (test code = 354) CREATININE (BEAKER) 2.49 mg/dL 0.57-1.25 H (test code = 358) GLUCOSE RANDOM 127 mg/dL 70-105 H (BEAKER) (test code = 652) CALCIUM (BEAKER) 10.1 mg/dL 8.4-10.2 (test code = 697) EGFR (BEAKER) (test 25 mL/min/1.73 ESTIMA RENUKA GFR IS code = 1092) sq m NOT ACCURATE CREATININE CLEARANCE IN PREDICTING GLOMERULAR FILTRATION RATE . ESTIMATED GFR I S NOT APPLICABLE FOR DIALYSIS PATIEN TS. BLOOD GAS, [id number] 09:31:00 Test Item Value Reference Range Interpretation Comments PH ARTERIAL (BEAKER) (test code = 7.48 7.35-7.45 H 383) PCO2 ARTERIAL (BEAKER) (test code 33 mmHg 35-45 L = 384) PO2 ARTERIAL (BEAKER) (test code = 112 mmHg 80-90 H 385) O2 SATURATION ARTERIAL (BEAKER) 98.4 % 96.0-97.0 H (test code = 386) HCO3 ARTERIAL (BEAKER) (test code 24 mmol/L 21-29 = 388) BASE EXCESS ARTERIAL (BEAKER) 1.0 mmol/L -2.0-3.0 (test code = 387) PATIENT TEMPERATURE (BEAKER) (test 36.7 C code = 1818) FIO2 (BEAKER) (test code = 1819) 40.0 % RAD, CHEST, 1 VIEW, NON [id number] 08:44:00Reason for exam:->chest tubes FINAL REPORT CHEST ONE VIEW HISTORY: Chest tubes [...] DelatorreMDReport Verified Date/Time: 07/26/2017 08:44:33 Reading Location: [facility] [id number] Ortho Consult Reading Room POCT-GLUCOSE [id number] 07:25:00 Test Item Value Reference Range Interpretation Comments POC-GLUCOSE METER 120 mg/dL 70-[address] [facility] 6720 (BEAKER) (test code = MARIA ESTHER Cash [facility] 1538) [address] BASIC METABOLIC [id number] 05:41:00 Test Item Value Reference Range Interpretation Comments SODIUM (BEAKER) 145 meq/L 136-145 (test code = 381) POTASSIUM (BEAKER) 4.1 meq/L 3.5-5.1 (test code = 379) CHLORIDE (BEAKER) 112 meq/L 98-107 H (test code = 382) CO2 (BEAKER) (test 21 meq/L 22-29 L code = 355) BLOOD UREA NITROGEN 29 mg/dL 7-21 H (BEAKER) (test code = 354) CREATININE (BEAKER) 2.50 mg/dL 0.57-1.25 H (test code = 358) GLUCOSE RANDOM 126 mg/dL 70-105 H (BEAKER) (test code = 652) CALCIUM (BEAKER) 8.3 mg/dL 8.4-10.2 L (test code = 697) EGFR (BEAKER) (test 25 mL/min/1.73 ESTIMA RENUKA GFR IS code = 1092) sq m NOT ACCURATE CREATININE CLEARANCE IN PREDICTING GLOMERULAR FILTRATION RATE . ESTIMATED GFR I S NOT APPLICABLE FOR DIALYSIS PATIEN TS. OXYGEN SATURATION, [id number] 05:34:00 Test Item Value Reference Range Interpretation Comments O2 SATURATION (MEASURED) (BEAKER) 59.2 % (test code = 1455) [id number] 05:33:00 Test Item Value Reference Range Interpretation Comments PHOSPHORUS (BEAKER) (test code = 4.7 mg/dL 2.3-4.7 604) [id number] 05:33:00 Test Item Value Reference Range Interpretation Comments MAGNESIUM (BEAKER) (test code = 2.2 mg/dL 1.6-2.6 627) CALCIUM, [id number] 05:31:00 Test Item Value Reference Range Interpretation Comments CALCIUM IONIZED (BEAKER) (test 0.98 mmol/L 1.12-1.27 L code = 698) PH, BLOOD (BEAKER) (test code = 7.39 1810) CBC W/PLT COUNT & AUTO [id number] 05:00:00 Test Item Value Reference Range Interpretation Comments WHITE BLOOD CELL COUNT (BEAKER) 12.8 K/ L 3.5-10.5 H (test code = 775) RED BLOOD CELL COUNT (BEAKER) 2.87 M/ L 4.63-6.08 L (test code = 761) HEMOGLOBIN (BEAKER) (test code = 9.4 GM/DL 13.7-17.5 L 410) HEMATOCRIT (BEAKER) (test code = 28.5 % 40.1-51.0 L 411) MEAN CORPUSCULAR VOLUME (BEAKER) 99.3 fL 79.0-92.2 H (test code = 753) MEAN CORPUSCULAR HEMOGLOBIN 32.8 pg 25.7-32.2 H (BEAKER) (test code = 751) MEAN CORPUSCULAR HEMOGLOBIN CONC 33.0 GM/DL 32.3-36.5 (BEAKER) (test code = 752) RED CELL DISTRIBUTION WIDTH 14.9 % 11.6-14.4 H (BEAKER) (test code = 412) PLATELET COUNT (BEAKER) (test 134 K/CU MM 150-450 L code = 756) MEAN PLATELET VOLUME (BEAKER) 12.5 fL 9.4-12.4 H (test code = 754) NUCLEATED RED BLOOD CELLS 0 /100 WBC 0-0 (BEAKER) (test code = 413) NEUTROPHILS RELATIVE PERCENT 86 % (BEAKER) (test code = 429) LYMPHOCYTES RELATIVE PERCENT 5 % (BEAKER) (test code = 430) MONOCYTES RELATIVE PERCENT 7 % (BEAKER) (test code = 431) EOSINOPHILS RELATIVE PERCENT 2 % (BEAKER) (test code = 432) BASOPHILS RELATIVE PERCENT 0 % (BEAKER) (test code = 437) NEUTROPHILS ABSOLUTE COUNT 10.99 K/ L 1.78-5.38 H (BEAKER) (test code = 670) LYMPHOCYTES ABSOLUTE COUNT 0.60 K/ L 1.32-3.57 L (BEAKER) (test code = 414) MONOCYTES ABSOLUTE COUNT (BEAKER) 0.84 K/ L 0.30-0.82 H (test code = 415) EOSINOPHILS ABSOLUTE COUNT 0.21 K/ L 0.04-0.54 (BEAKER) (test code = 416) BASOPHILS ABSOLUTE COUNT (BEAKER) 0.03 K/ L 0.01-0.08 (test code = 417) IMMATURE GRANULOCYTES-RELATIVE 1 % 0-1 PERCENT (BEAKER) (test code = 2801) LACTIC ACID, ARTERIAL, WHOLE [id number] 04:58:00 Test Item Value Reference Range Interpretation Comments LACTATE BLOOD ARTERIAL (2) 1.2 mmol/L 0.5-2.2 (BEAKER) (test code = 2874) Effective 09/27/2015: Units/Reference Range ChangeNew: 0.5-2.2 mmol/L Previous: 5-20 mg/dLPOCT-GLUCOSE [id number] 04:19:00 Test Item Value Reference Range Interpretation Comments POC-GLUCOSE METER 136 mg/dL 70-110 H TESTED AT [place] [address] ([facility]) (test code = MARIA ESTHER Cash [facility] 1538) [address] POCT-GLUCOSE [id number] 00:39:00 Test Item Value Reference Range Interpretation Comments POC-GLUCOSE METER 142 mg/dL 70-110 H TESTED AT [place] [address] ([facility]) (test code = MARIA ESTHER Cash [facility] 1538) [address] POCT-GLUCOSE [id number] 23:06:00 Test Item Value Reference Range Interpretation Comments POC-GLUCOSE METER 128 mg/dL 70-110 H TESTED AT [place] [address] ([facility]) (test code = MARIA ESTHER Cash [facility] 1538) [address] BASIC METABOLIC [id number] 21:24:00 Test Item Value Reference Range Interpretation Comments SODIUM (BEAKER) 143 meq/L 136-145 (test code = 381) POTASSIUM (BEAKER) 4.3 meq/L 3.5-5.1 (test code = 379) CHLORIDE (BEAKER) 111 meq/L 98-107 H (test code = 382) CO2 (BEAKER) (test 24 meq/L 22-29 code = 355) BLOOD UREA NITROGEN 27 mg/dL 7-21 H (BEAKER) (test code = 354) CREATININE (BEAKER) 2.57 mg/dL 0.57-1.25 H (test code = 358) GLUCOSE RANDOM 125 mg/dL 70-105 H (BEAKER) (test code = 652) CALCIUM (BEAKER) 8.3 mg/dL 8.4-10.2 L (test code = 697) EGFR (BEAKER) (test 25 mL/min/1.73 ESTIMA RENUKA GFR IS code = 1092) sq m NOT ACCURATE CREATININE CLEARANCE IN PREDICTING GLOMERULAR FILTRATION RATE . ESTIMATED GFR I S NOT APPLICABLE FOR DIALYSIS PATIEN TS. POCT-GLUCOSE [id number] 20:14:00 Test Item Value Reference Range Interpretation Comments POC-GLUCOSE METER 126 mg/dL 70-[address] [facility] 6720 (BEAKER) (test code = MARIA ESTHER Cash [facility] 1538) [address] BASIC METABOLIC [id number] 18:38:00 Test Item Value Reference Range Interpretation Comments SODIUM (BEAKER) 143 meq/L 136-145 (test code = 381) POTASSIUM (BEAKER) 4.3 meq/L 3.5-5.1 (test code = 379) CHLORIDE (BEAKER) 112 meq/L 98-107 H (test code = 382) CO2 (BEAKER) (test 23 meq/L 22-29 code = 355) BLOOD UREA NITROGEN 27 mg/dL 7-21 H (BEAKER) (test code = 354) CREATININE (BEAKER) 2.58 mg/dL 0.57-1.25 H (test code = 358) GLUCOSE RANDOM 128 mg/dL 70-105 H (BEAKER) (test code = 652) CALCIUM (BEAKER) 8.2 mg/dL 8.4-10.2 L (test code = 697) EGFR (BEAKER) (test 24 mL/min/1.73 ESTIMA RENUKA GFR IS code = 1092) sq m NOT ACCURATE CREATININE CLEARANCE IN PREDICTING GLOMERULAR FILTRATION RATE . ESTIMATED GFR I S NOT APPLICABLE FOR DIALYSIS PATIEN TS. [id number] 18:37:00 Test Item Value Reference Range Interpretation Comments POTASSIUM (BEAKER) (test code = 4.3 meq/L 3.5-5.1 379) [id number] 18:37:00 Test Item Value Reference Range Interpretation Comments MAGNESIUM (BEAKER) (test code = 2.3 mg/dL 1.6-2.6 627) POCT-GLUCOSE [id number] 18:21:00 Test Item Value Reference Range Interpretation Comments POC-GLUCOSE METER 135 mg/dL 70-110 H TESTED AT [place] [address] (BEAKER) (test code = [facility] 1538) [address] POCT-GLUCOSE [id number] 18:21:00 Test Item Value Reference Range Interpretation Comments POC-GLUCOSE METER 140 mg/dL 70-110 H [facility] AT [place] [address] [facility] (test code = [facility] 1538) [address] POCT-GLUCOSE [id number] 18:21:00 Test Item Value Reference Range Interpretation Comments POC-GLUCOSE METER 132 mg/dL 70-110 H TESTED AT [place] [address] (BEAKER) (test code = [facility] 1538) [address] CALCIUM, [id number] 18:06:00 Test Item Value Reference Range Interpretation Comments CALCIUM IONIZED (BEAKER) (test 1.06 mmol/L 1.12-1.27 L code = 698) PH, BLOOD (BEAKER) (test code = 7.44 1810) BLOOD GAS, [id number] 18:06:00 Test Item Value Reference Range Interpretation Comments PH ARTERIAL (BEAKER) (test code = 7.44 7.35-7.45 383) PCO2 ARTERIAL (BEAKER) (test code 32 mmHg 35-45 L = 384) PO2 ARTERIAL (BEAKER) (test code 99 mmHg 80-90 H = 385) O2 SATURATION ARTERIAL (BEAKER) 97.7 % 96.0-97.0 H (test code = 386) HCO3 ARTERIAL (BEAKER) (test code 21 mmol/L 21-29 = 388) BASE EXCESS ARTERIAL (BEAKER) -2.3 mmol/L -2.0-3.0 L (test code = 387) PATIENT TEMPERATURE (BEAKER) 37.0 C (test code = 1818) FIO2 (BEAKER) (test code = 1819) 40.0 % LACTIC ACID, ARTERIAL, WHOLE [id number] 13:20:00 Test Item Value Reference Range Interpretation Comments LACTATE BLOOD ARTERIAL (2) 1.4 mmol/L 0.5-2.2 (AKER) (test code = 2874) Effective 09/27/2015: Units/Reference Range ChangeNew: 0.5-2.2 mmol/L Previous: 5-20 mg/dLHEMOGLOBIN AND [id number] 13:01:00 Test Item Value Reference Range Interpretation Comments HEMOGLOBIN (BEAKER) (test code = 9.7 GM/DL 13.7-17.5 L 410) HEMATOCRIT ([facility]) (test code = 29.2 % 40.1-51.0 L 411) POCT-GLUCOSE [id number] 12:24:00 Test Item Value Reference Range Interpretation Comments POC-GLUCOSE METER 113 mg/dL 70-110 H TESTED AT [place] [address] ([facility]) (test code = MARIA ESTHER Cash [place] 1538) [address] POCT-GLUCOSE [id number] 12:24:00 Test Item Value Reference Range Interpretation Comments POC-GLUCOSE METER 147 mg/dL 70-110 H TESTED AT [place] [address] ([facility]) (test code = MARIA ESTHER Cash [place] 1538) [address] POCT-GLUCOSE [id number] 12:24:00 Test Item Value Reference Range Interpretation Comments POC-GLUCOSE METER 160 mg/dL 70-110 H TESTED AT [place] [address] ([facility]) (test code = MARIA ESTHER Cash [place] 1538) [address] POCT-GLUCOSE [id number] 12:24:00 Test Item Value Reference Range Interpretation Comments POC-GLUCOSE METER 145 mg/dL 70-110 H TESTED AT [place] [address] ([facility]) (test code = MARIA ESTHER Cash [place] 1538) [address] POCT-GLUCOSE [id number] 12:24:00 Test Item Value Reference Range Interpretation Comments POC-GLUCOSE METER 145 mg/dL 70-110 H TESTED AT [place] [address] ([facility]) (test code = MARIA ESTHER Cash [place] 1538) [address] POCT-GLUCOSE [id number] 12:24:00 Test Item Value Reference Range Interpretation Comments POC-GLUCOSE METER 159 mg/dL 70-[address] [facility] 6720 (BEAKER) (test code = MARIA ESTHER Cash [place] 1538) [address] POCT-GLUCOSE [id number] 12:24:00 Test Item Value Reference Range Interpretation Comments POC-GLUCOSE METER 170 mg/dL 70-[address] [facility] 6720 (BEAKER) (test code = MARIA ESTHER Cash [place] 1538) [address] [id number] 10:59:00 Test Item Value Reference Range Interpretation Comments PHOSPHORUS (BEAKER) (test code = 3.1 mg/dL 2.3-4.7 604) [id number] 10:59:00 Test Item Value Reference Range Interpretation Comments MAGNESIUM (BEAKER) (test code = 2.3 mg/dL 1.6-2.6 627) BASIC METABOLIC [id number] 10:59:00 Test Item Value Reference Range Interpretation Comments SODIUM (BEAKER) 143 meq/L 136-145 (test code = 381) POTASSIUM (BEAKER) 4.6 meq/L 3.5-5.1 (test code = 379) CHLORIDE (BEAKER) 112 meq/L 98-107 H (test code = 382) CO2 (BEAKER) (test 20 meq/L 22-29 L code = 355) BLOOD UREA NITROGEN 23 mg/dL 7-21 H (BEAKER) (test code = 354) CREATININE (BEAKER) 2.18 mg/dL 0.57-1.25 H (test code = 358) GLUCOSE RANDOM 147 mg/dL 70-105 H (BEAKER) (test code = 652) CALCIUM (BEAKER) 8.1 mg/dL 8.4-10.2 L (test code = 697) EGFR (BEAKER) (test 30 mL/min/1.73 ESTIMA RENUKA GFR IS code = 1092) sq m NOT ACCURATE CREATININE CLEARANCE IN PREDICTING GLOMERULAR FILTRATION RATE . ESTIMATED GFR I S NOT APPLICABLE FOR DIALYSIS PATIEN TS. CBC W/PLT COUNT & AUTO [id number] 10:26:00 Test Item Value Reference Range Interpretation Comments WHITE BLOOD CELL COUNT (BEAKER) 14.9 K/ L 3.5-10.5 H (test code = 775) RED BLOOD CELL COUNT (BEAKER) 3.03 M/ L 4.63-6.08 L (test code = 761) HEMOGLOBIN (BEAKER) (test code = 10.0 GM/DL 13.7-17.5 L 410) HEMATOCRIT (BEAKER) (test code = 30.9 % 40.1-51.0 L 411) MEAN CORPUSCULAR VOLUME (BEAKER) 102.0 fL 79.0-92.2 H (test code = 753) MEAN CORPUSCULAR HEMOGLOBIN 33.0 pg 25.7-32.2 H (BEAKER) (test code = 751) MEAN CORPUSCULAR HEMOGLOBIN CONC 32.4 GM/DL 32.3-36.5 (BEAKER) (test code = 752) RED CELL DISTRIBUTION WIDTH 14.8 % 11.6-14.4 H (BEAKER) (test code = 412) PLATELET COUNT (BEAKER) (test 155 K/CU MM 150-450 code = 756) MEAN PLATELET VOLUME (BEAKER) 12.6 fL 9.4-12.4 H (test code = 754) NUCLEATED RED BLOOD CELLS 0 /100 WBC 0-0 (BEAKER) (test code = 413) NEUTROPHILS RELATIVE PERCENT 84 % (BEAKER) (test code = 429) LYMPHOCYTES RELATIVE PERCENT 4 % (BEAKER) (test code = 430) MONOCYTES RELATIVE PERCENT 11 % (BEAKER) (test code = 431) EOSINOPHILS RELATIVE PERCENT 1 % (BEAKER) (test code = 432) BASOPHILS RELATIVE PERCENT 0 % (BEAKER) (test code = 437) NEUTROPHILS ABSOLUTE COUNT 12.43 K/ L 1.78-5.38 H (BEAKER) (test code = 670) LYMPHOCYTES ABSOLUTE COUNT 0.56 K/ L 1.32-3.57 L (BEAKER) (test code = 414) MONOCYTES ABSOLUTE COUNT (BEAKER) 1.62 K/ L 0.30-0.82 H (test code = 415) EOSINOPHILS ABSOLUTE COUNT 0.14 K/ L 0.04-0.54 (BEAKER) (test code = 416) BASOPHILS ABSOLUTE COUNT (BEAKER) 0.04 K/ L 0.01-0.08 (test code = 417) IMMATURE GRANULOCYTES-RELATIVE 1 % 0-1 PERCENT (BEAKER) (test code = 2801) BLOOD GAS, [id number] 09:05:00 Test Item Value Reference Range Interpretation Comments PH ARTERIAL (BEAKER) (test code = 7.40 7.35-7.45 383) PCO2 ARTERIAL (BEAKER) (test code 35 mmHg 35-45 = 384) PO2 ARTERIAL (BEAKER) (test code 212 mmHg 80-90 H = 385) O2 SATURATION ARTERIAL (BEAKER) 99.4 % 96.0-97.0 H (test code = 386) HCO3 ARTERIAL (BEAKER) (test code 22 mmol/L 21-29 = 388) BASE EXCESS ARTERIAL (BEAKER) -2.7 mmol/L -2.0-3.0 L (test code = 387) PATIENT TEMPERATURE (BEAKER) 37.0 C (test code = 1818) FIO2 (BEAKER) (test code = 1819) 100.0 % POCT-GLUCOSE [id number] 07:07:00 Test Item Value Reference Range Interpretation Comments POC-GLUCOSE METER 160 mg/dL 70-110 H TESTED AT [place] [address] ([facility]) (test code = [facility] 1538) [address] POCT-GLUCOSE [id number] 07:07:00 Test Item Value Reference Range Interpretation Comments POC-GLUCOSE METER 200 mg/dL 70-110 H TESTED AT [place] [address] ([facility]) (test code = [facility] 1538) [address] POCT-GLUCOSE [id number] 07:07:00 Test Item Value Reference Range Interpretation Comments POC-GLUCOSE METER 213 mg/dL 70-110 H TESTED AT [place] [address] ([facility]) (test code = [facility] 1538) [address] BLOOD GAS, [id number] 01:53:00 Test Item Value Reference Range Interpretation Comments PH ARTERIAL (BEAKER) (test code = 7.45 7.35-7.45 383) PCO2 ARTERIAL (BEAKER) (test code 28 mmHg 35-45 L = 384) PO2 ARTERIAL (BEAKER) (test code 81 mmHg 80-90 = 385) O2 SATURATION ARTERIAL (BEAKER) 96.8 % 96.0-97.0 (test code = 386) HCO3 ARTERIAL (BEAKER) (test code 19 mmol/L 21-29 L = 388) BASE EXCESS ARTERIAL (BEAKER) -4.1 mmol/L -2.0-3.0 L (test code = 387) PATIENT TEMPERATURE (BEAKER) 36.2 C (test code = 1818) FIO2 (BEAKER) (test code = 1819) 36.0 % RAD, CHEST, 1 VIEW, NON [id number] 01:46:00while patient is intubated or has chest tubes.Reason for exam:->S/p OHSShould this be performed at the bedside?->YesFINAL REPORT EXAMINATION: AP PORTABLE CHEST RADIOGRAPH CLINICAL INDICATION:Chest tubes IMPRESSION: Compared with 07/24/2017. The endotracheal tube and nasogastric tube have [...] pneumothorax cannot be excluded. Signed: Daysi Torres MDRthe [facility] [place] Verified Date/Time: 07/25/2017 01:46:51 Reading Location: [address] Reading Room Electronicallysigned by: DAYSI TORRES M.D. on 07/25/2017 01:46 AMPOCT-GLUCOSE [id number] 00:23:00 Test Item Value Reference Range Interpretation Comments POC-GLUCOSE METER 229 mg/dL 70-110 H TESTED AT [place] [address] ([facility]) (test code = MARIA ESTHER Shreya [facility] 1538) [id number] POCT-GLUCOSE [id number] 00:23:00 Test Item Value Reference Range Interpretation Comments POC-GLUCOSE METER 220 mg/dL 70-110 H TESTED AT [place] [address] ([facility]) (test code = MARIA ESTHER Cash [facility] 1538) [address] POCT-GLUCOSE [id number] 22:34:00 Test Item Value Reference Range Interpretation Comments POC-GLUCOSE METER 247 mg/dL 70-[address] [facility] 6720 ([facility]) (test code = MARIA ESTHER Cash [facility] 1538) [address] POCT-GLUCOSE [id number] 22:34:00 Test Item Value Reference Range Interpretation Comments POC-GLUCOSE METER 254 mg/dL 70-[address] [facility] 6720 (BEAKER) (test code = [facility] 1538) [address] BLOOD GAS, [id number] 22:08:00 Test Item Value Reference Range Interpretation Comments PH ARTERIAL (BEAKER) (test code = 7.35 7.35-7.45 383) PCO2 ARTERIAL (BEAKER) (test code 36 mmHg 35-45 = 384) PO2 ARTERIAL (BEAKER) (test code 68 mmHg 80-90 L = 385) O2 SATURATION ARTERIAL (BEAKER) 92.8 % 96.0-97.0 L (test code = 386) HCO3 ARTERIAL (BEAKER) (test code 19 mmol/L 21-29 L = 388) BASE EXCESS ARTERIAL (BEAKER) -5.7 mmol/L -2.0-3.0 L (test code = 387) PATIENT TEMPERATURE (BEAKER) 37.0 C (test code = 1818) FIO2 (BEAKER) (test code = 1819) 40.0 % POTASSIUM-STAT [id number] 22:08:00 Test Item Value Reference Range Interpretation Comments POTASSIUM (BEAKER) (test code = 3.9 meq/L 3.6-5.5 379) [id number] 21:24:00 Test Item Value Reference Range Interpretation Comments GLUCOSE RANDOM (BEAKER) (test code 232 mg/dL 70-105 H = 652) [id number] 21:24:00 Test Item Value Reference Range Interpretation Comments POTASSIUM (BEAKER) (test code = 3.8 meq/L 3.5-5.1 379) POCT-GLUCOSE [id number] 19:12:00 Test Item Value Reference Range Interpretation Comments POC-GLUCOSE METER 207 mg/dL 70-[address] [facility] 6720 (BEAKER) (test code = [facility] 1538) [address] URINALYSIS W/ [id number] 17:20:00 Test Item Value Reference Range Interpretation Comments COLOR (BEAKER) (test code = 470) Yellow CLARITY (BEAKER) (test code = Hazy 469) SPECIFIC GRAVITY UA (BEAKER) 1.018 1.001-1.035 (test code = 468) PH UA (BEAKER) (test code = 467) 5.0 5.0-8.0 PROTEIN UA (BEAKER) (test code = 20 mg/dL Negative A 464) GLUCOSE UA (BEAKER) (test code = Negative Negative 365) KETONES UA (BEAKER) (test code = Negative Negative 371) BILIRUBIN UA (BEAKER) (test code Negative Negative = 462) BLOOD UA (BEAKER) (test code = Moderate Negative A 461) NITRITE UA (BEAKER) (test code = Negative Negative 465) LEUKOCYTE ESTERASE UA (BEAKER) Negative Negative (test code = 466) UROBILINOGEN UA (BEAKER) (test 0.2 mg/dL 0.2-1.0 code = 463) RBC UA (BEAKER) (test code = 114 /HPF 519) WBC UA (BEAKER) (test code = 17 /HPF 520) BACTERIA (BEAKER) (test code = Few 517) MUCUS (BEAKER) (test code = Occasional 1574) SQUAMOUS EPITHELIAL (BEAKER) 2 /HPF (test code = 516) HYALINE CASTS (BEAKER) (test 9 /LPF code = 514) SOURCE(BEAKER) (test code = Urine, Frances 4164) BLOOD GAS, [id number] 17:02:00 Test Item Value Reference Range Interpretation Comments PH ARTERIAL (BEAKER) (test code = 7.32 7.35-7.45 L 383) PCO2 ARTERIAL (BEAKER) (test code 43 mmHg 35-45 = 384) PO2 ARTERIAL (BEAKER) (test code 175 mmHg 80-90 H = 385) O2 SATURATION ARTERIAL (BEAKER) 99.1 % 96.0-97.0 H (test code = 386) HCO3 ARTERIAL (BEAKER) (test code 22 mmol/L 21-29 = 388) BASE EXCESS ARTERIAL (BEAKER) -4.5 mmol/L -2.0-3.0 L (test code = 387) PATIENT TEMPERATURE (BEAKER) 36.7 C (test code = 1818) FIO2 (BEAKER) (test code = 1819) 60.0 % RAD, CHEST, 1 VIEW, NON [id number] 15:57:00Reason for exam:->s./p OHSShould this be performed at the bedside?->YesFINAL REPORT Chest one view compared to July 15, 2016 Discussion: Cardiac prominence, drainage tubes, right IJ line in place. There is pulmonary congestion and atelectasis. There may be small effusions but no pneumothorax. Signed: Taty Osborneeport Verified Date/Time: 07/24/2017 15:57:34 Reading Location: [facility] [id number] Consult Reading Room [id number] 15:25:00 Test Item Value Reference Range Interpretation Comments MAGNESIUM (BEAKER) 2.5 mg/dL 1.6-2.6 Specimen slightly (test code = 627) hemolyzed [id number] 15:25:00 Test Item Value Reference Range Interpretation Comments PHOSPHORUS (BEAKER) 3.5 mg/dL 2.3-4.7 Specimen slightly (test code = 604) hemolyzed BASIC METABOLIC [id number] 15:25:00 Test Item Value Reference Range Interpretation Comments SODIUM (BEAKER) 142 meq/L 136-145 (test code = 381) POTASSIUM (BEAKER) 4.0 meq/L 3.5-5.1 Specimen slightly (test code = 379) hemolyzed CHLORIDE (BEAKER) 112 meq/L 98-107 H (test code = 382) CO2 (BEAKER) (test 19 meq/L 22-29 L code = 355) BLOOD UREA NITROGEN 17 mg/dL 7-21 (BEAKER) (test code = 354) CREATININE (BEAKER) 1.35 mg/dL 0.57-1.25 H Specimen slightly (test code = 358) hemolyzed GLUCOSE RANDOM 158 mg/dL 70-105 H (BEAKER) (test code = 652) CALCIUM (BEAKER) 8.5 mg/dL 8.4-10.2 (test code = 697) EGFR (BEAKER) (test 52 mL/min/1.73 ESTIMA RENUKA GFR IS code = 1092) sq m NOT ACCURATE CREATININE CLEARANCE IN PREDICTING GLOMERULAR FILTRATION RATE . ESTIMATED GFR I S NOT APPLICABLE FOR DIALYSIS PATIEN TS. CBC W/PLT COUNT & AUTO [id number] 15:17:00 Test Item Value Reference Range Interpretation Comments WHITE BLOOD CELL COUNT (BEAKER) 17.9 K/ L 3.5-10.5 H (test code = 775) RED BLOOD CELL COUNT (BEAKER) 3.27 M/ L 4.63-6.08 L (test code = 761) HEMOGLOBIN (BEAKER) (test code = 10.8 GM/DL 13.7-17.5 L 410) HEMATOCRIT (BEAKER) (test code = 32.9 % 40.1-51.0 L 411) MEAN CORPUSCULAR VOLUME (BEAKER) 100.6 fL 79.0-92.2 H (test code = 753) MEAN CORPUSCULAR HEMOGLOBIN 33.0 pg 25.7-32.2 H (BEAKER) (test code = 751) MEAN CORPUSCULAR HEMOGLOBIN CONC 32.8 GM/DL 32.3-36.5 (BEAKER) (test code = 752) RED CELL DISTRIBUTION WIDTH 14.2 % 11.6-14.4 (BEAKER) (test code = 412) PLATELET COUNT (BEAKER) (test 126 K/CU MM 150-450 L code = 756) MEAN PLATELET VOLUME (BEAKER) 11.1 fL 9.4-12.4 (test code = 754) NUCLEATED RED BLOOD CELLS 0 /100 WBC 0-0 (BEAKER) (test code = 413) NEUTROPHILS RELATIVE PERCENT 82 % (BEAKER) (test code = 429) LYMPHOCYTES RELATIVE PERCENT 12 % (BEAKER) (test code = 430) MONOCYTES RELATIVE PERCENT 5 % (BEAKER) (test code = 431) EOSINOPHILS RELATIVE PERCENT 0 % (BEAKER) (test code = 432) BASOPHILS RELATIVE PERCENT 0 % (BEAKER) (test code = 437) NEUTROPHILS ABSOLUTE COUNT 14.59 K/ L 1.78-5.38 H (BEAKER) (test code = 670) LYMPHOCYTES ABSOLUTE COUNT 2.18 K/ L 1.32-3.57 (BEAKER) (test code = 414) MONOCYTES ABSOLUTE COUNT (BEAKER) 0.84 K/ L 0.30-0.82 H (test code = 415) EOSINOPHILS ABSOLUTE COUNT 0.04 K/ L 0.04-0.54 (BEAKER) (test code = 416) BASOPHILS ABSOLUTE COUNT (BEAKER) 0.02 K/ L 0.01-0.08 (test code = 417) IMMATURE GRANULOCYTES-RELATIVE 1 % 0-1 PERCENT (BEAKER) (test code = 2801) LACTIC ACID, ARTERIAL, WHOLE [id number] 15:12:00 Test Item Value Reference Range Interpretation Comments LACTATE BLOOD 2.7 mmol/L 0.5-2.2 H Specimen sligh tly ARTERIAL (2) (BEAKER) hemoly zed (test code = 2874) Effective 09/27/2015: Units/Reference Range ChangeNew: 0.5-2.2 mmol/L Previous: 5-20 mg/dLOXYGEN SATURATION, [id number] 15:10:00 Test Item Value Reference Range Interpretation Comments O2 SATURATION (MEASURED) (BEAKER) 78.9 % (test code = 1455) From distal port of IJ central venous catheterCALCIUM, [id number] 15:07:00 Test Item Value Reference Range Interpretation Comments CALCIUM IONIZED (BEAKER) (test 1.11 mmol/L 1.12-1.27 L code = 698) PH, BLOOD (BEAKER) (test code = 7.28 1810) BLOOD GAS, [id number] 15:07:00 Test Item Value Reference Range Interpretation Comments PH ARTERIAL (BEAKER) (test code = 7.28 7.35-7.45 L 383) PCO2 ARTERIAL (BEAKER) (test code 45 mmHg 35-45 = 384) PO2 ARTERIAL (BEAKER) (test code 119 mmHg 80-90 H = 385) O2 SATURATION ARTERIAL (BEAKER) 97.9 % 96.0-97.0 H (test code = 386) HCO3 ARTERIAL (BEAKER) (test code 21 mmol/L 21-29 = 388) BASE EXCESS ARTERIAL (BEAKER) -6.2 mmol/L -2.0-3.0 L (test code = 387) PATIENT TEMPERATURE (BEAKER) 36.3 C (test code = 1818) FIO2 (BEAKER) (test code = 1819) 60.0 % [id number] 14:18:00 Test Item Value Reference Range Interpretation Comments ACTIVATED CLOTTING TIME 114 sec TEST ED AT [place] [address] ([facility]) (test code = MARIA ESTHER Cash [place] [address]) [id number] 14:18:00 Test Item Value Reference Range Interpretation Comments ACTIVATED CLOTTING TIME 131 sec TEST ED AT [place] [address] ([facility] [facility]) (test code = MARIA ESTHER Cash [place] [address]) [id number] 14:18:00 Test Item Value Reference Range Interpretation Comments ACTIVATED CLOTTING TIME 532 sec TEST ED AT [place] [address] ([facility]) (test code = MARIA ESTHER [place] [address]) [id number] 14:18:00 Test Item Value Reference Range Interpretation Comments ACTIVATED CLOTTING TIME 598 sec TEST ED AT [place] [address] ([facility]) (test code = MARIA ESTHER Cash [place] [address]) [id number] 14:18:00 Test Item Value Reference Range Interpretation Comments ACTIVATED CLOTTING TIME 786 sec TEST ED AT [place] [address] ([facility]) (test code = MARIA ESTHER Cash [place] [address]) [id number] 14:18:00 Test Item Value Reference Range Interpretation Comments ACTIVATED CLOTTING TIME 786 sec TEST ED AT [place] [address] ([facility]) (test code = MARIA ESTHER Cash [place] [address]) [id number] PLATELET [id number] 13:19:00 Test Item Value Reference Range Interpretation Comments PLATELET COUNT (BEAKER) (test code 77 K/CU MM 150-450 L = 756) CALCIUM, [id number] 13:01:00 Test Item Value Reference Range Interpretation Comments CALCIUM IONIZED (BEAKER) (test 1.22 mmol/L 1.12-1.27 code = 698) PH, BLOOD (BEAKER) (test code = 7.32 1810) BLOOD GAS, [id number] 13:01:00 Test Item Value Reference Range Interpretation Comments PH ARTERIAL (BEAKER) (test code = 7.34 7.35-7.45 L 383) PCO2 ARTERIAL (BEAKER) (test code 39 mmHg 35-45 = 384) PO2 ARTERIAL (BEAKER) (test code 192 mmHg 80-90 H = 385) O2 SATURATION ARTERIAL (BEAKER) 99.3 % 96.0-97.0 H (test code = 386) HCO3 ARTERIAL (BEAKER) (test code 20 mmol/L 21-29 L = 388) BASE EXCESS ARTERIAL (BEAKER) -5.3 mmol/L -2.0-3.0 L (test code = 387) PATIENT TEMPERATURE (BEAKER) 35.9 C (test code = 1818) FIO2 (BEAKER) (test code = 1819) 90.0 % GLUCOSE-STAT [id number] 13:01:00 Test Item Value Reference Range Interpretation Comments GLUCOSE RANDOM (BEAKER) (test code 164 mg/dL 70-110 H = 652) HGB/HCT (H&H) - STAT [id number] 13:01:00 Test Item Value Reference Range Interpretation Comments HEMOGLOBIN (BEAKER) (test code = 11.9 g/dL 13.0-16.8 L 410) HEMATOCRIT (BEAKER) (test code = 35.0 % 40.0-50.0 L 411) SODIUM NA-STAT [id number] 13:00:00 Test Item Value Reference Range Interpretation Comments SODIUM (BEAKER) (test code = 381) 136 meq/L 135-148 POTASSIUM-STAT [id number] 13:00:00 Test Item Value Reference Range Interpretation Comments POTASSIUM (BEAKER) (test code = 4.3 meq/L 3.6-5.5 379) PROTHROMBIN [id number] 12:44:00 Test Item Value Reference Range Interpretation Comments PROTIME (BEAKER) (test code = 22.5 seconds 11.7-14.7 H 759) INR (BEAKER) (test code = 370) 2.0 <=5.9 RECOMMENDED COUMADIN/WARFARIN INR THERAPY RANGESSTANDARD DOSE: 2.0 - 3.0 Includes: PROPHYLAXIS forvenous thrombosis, systemic embolization; TREATMENT for venous thrombosis and/or pulmonary embolus.HIGH RISK: Target INR is 2.5-3.5 for patients with mechanical heart valves.[id number] 12:44:00 Test Item Value Reference Range Interpretation Comments PARTIAL THROMBOPLASTIN TIME 33.1 seconds 22.5-36.0 (BEAKER) (test code = 760) [id number] 12:44:00 Test Item Value Reference Range Interpretation Comments FIBRINOGEN LEVEL (BEAKER) (test 287 mg/dl 225-434 code = 658) BLOOD GAS, [id number] 12:25:00 Test Item Value Reference Range Interpretation Comments PH ARTERIAL (BEAKER) (test code = 7.30 7.35-7.45 L 383) PCO2 ARTERIAL (BEAKER) (test code 41 mmHg 35-45 = 384) PO2 ARTERIAL (BEAKER) (test code 175 mmHg 80-90 H = 385) O2 SATURATION ARTERIAL (BEAKER) 99.1 % 96.0-97.0 H (test code = 386) HCO3 ARTERIAL (BEAKER) (test code 20 mmol/L 21-29 L = 388) BASE EXCESS ARTERIAL (BEAKER) -6.5 mmol/L -2.0-3.0 L (test code = 387) PATIENT TEMPERATURE (BEAKER) 35.7 C (test code = 1818) FIO2 (BEAKER) (test code = 1819) 90.0 % GLUCOSE-STAT [id number] 12:25:00 Test Item Value Reference Range Interpretation Comments GLUCOSE RANDOM (BEAKER) (test code 162 mg/dL 70-110 H = 652) HGB/HCT (H&H) - STAT [id number] 12:25:00 Test Item Value Reference Range Interpretation Comments HEMOGLOBIN (BEAKER) (test code = 11.1 g/dL 13.0-16.8 L 410) HEMATOCRIT (BEAKER) (test code = 33.0 % 40.0-50.0 L 411) CALCIUM, [id number] 12:25:00 Test Item Value Reference Range Interpretation Comments CALCIUM IONIZED (BEAKER) (test 1.08 mmol/L 1.12-1.27 L code = 698) PH, BLOOD (BEAKER) (test code = 7.28 1810) SODIUM NA-STAT [id number] 12:24:00 Test Item Value Reference Range Interpretation Comments SODIUM (BEAKER) (test code = 381) 136 meq/L 135-148 POTASSIUM-STAT [id number] 12:24:00 Test Item Value Reference Range Interpretation Comments POTASSIUM (BEAKER) (test code = 4.7 meq/L 3.6-5.5 379) PROTHROMBIN [id number] 11:44:00 Test Item Value Reference Range Interpretation Comments PROTIME (BEAKER) (test code = 31.1 seconds 11.7-14.7 H 759) INR (BEAKER) (test code = 370) 3.0 <=5.9 RECOMMENDED COUMADIN/WARFARIN INR THERAPY RANGESSTANDARD DOSE: 2.0 - 3.0 Includes: PROPHYLAXIS forvenous thrombosis, systemic embolization; TREATMENT for venous thrombosis and/or pulmonary embolus.HIGH RISK: Target INR is 2.5-3.5 for patients with mechanical heart valves.[id number] 11:44:00 Test Item Value Reference Range Interpretation Comments FIBRINOGEN LEVEL (BEAKER) (test 335 mg/dl 225-434 code = 658) PLATELET [id number] 11:32:00 Test Item Value Reference Range Interpretation Comments PLATELET COUNT (BEAKER) (test 109 K/CU MM 150-450 L code = 756) SODIUM NA-STAT [id number] 11:28:00 Test Item Value Reference Range Interpretation Comments SODIUM (BEAKER) (test code = 381) 136 meq/L 135-148 BLOOD GAS, [id number] 11:28:00 Test Item Value Reference Range Interpretation Comments PH ARTERIAL (BEAKER) (test code = 7.38 7.35-7.45 383) PCO2 ARTERIAL (BEAKER) (test code 39 mmHg 35-45 = 384) PO2 ARTERIAL (BEAKER) (test code 402 mmHg 80-90 H = 385) O2 SATURATION ARTERIAL (BEAKER) 99.8 % 96.0-97.0 H (test code = 386) HCO3 ARTERIAL (BEAKER) (test code 23 mmol/L 21-29 = 388) BASE EXCESS ARTERIAL (BEAKER) -2.6 mmol/L -2.0-3.0 L (test code = 387) PATIENT TEMPERATURE (BEAKER) 35.6 C (test code = 1818) FIO2 (BEAKER) (test code = 1819) 80.0 % POTASSIUM-STAT [id number] 11:28:00 Test Item Value Reference Range Interpretation Comments POTASSIUM (BEAKER) (test code = 5.6 meq/L 3.6-5.5 H 379) GLUCOSE-STAT [id number] 11:28:00 Test Item Value Reference Range Interpretation Comments GLUCOSE RANDOM (BEAKER) (test code 168 mg/dL 70-110 H = 652) HGB/HCT (H&H) - STAT [id number] 11:28:00 Test Item Value Reference Range Interpretation Comments HEMOGLOBIN (BEAKER) (test code = 11.2 g/dL 13.0-16.8 L 410) HEMATOCRIT (BEAKER) (test code = 33.0 % 40.0-50.0 L 411) POTASSIUM-STAT [id number] 11:03:00 Test Item Value Reference Range Interpretation Comments POTASSIUM (BEAKER) (test code = 4.6 meq/L 3.6-5.5 379) BLOOD GAS, [id number] 11:03:00 Test Item Value Reference Range Interpretation Comments PH ARTERIAL (BEAKER) (test code = 7.28 7.35-7.45 L 383) PCO2 ARTERIAL (BEAKER) (test code 43 mmHg 35-45 = 384) PO2 ARTERIAL (BEAKER) (test code 332 mmHg 80-90 H = 385) O2 SATURATION ARTERIAL (BEAKER) 99.7 % 96.0-97.0 H (test code = 386) HCO3 ARTERIAL (BEAKER) (test code 21 mmol/L 21-29 = 388) BASE EXCESS ARTERIAL (BEAKER) -6.7 mmol/L -2.0-3.0 L (test code = 387) PATIENT TEMPERATURE (BEAKER) 33.1 C (test code = 1818) FIO2 (BEAKER) (test code = 1819) 80.0 % SODIUM NA-STAT [id number] 11:03:00 Test Item Value Reference Range Interpretation Comments SODIUM (BEAKER) (test code = 381) 134 meq/L 135-148 L GLUCOSE-STAT [id number] 11:03:00 Test Item Value Reference Range Interpretation Comments GLUCOSE RANDOM (BEAKER) (test code 157 mg/dL 70-110 H = 652) HGB/HCT (H&H) - STAT [id number] 11:03:00 Test Item Value Reference Range Interpretation Comments HEMOGLOBIN (BEAKER) (test code = 11.8 g/dL 13.0-16.8 L 410) HEMATOCRIT (BEAKER) (test code = 35.0 % 40.0-50.0 L 411) BLOOD GAS, [id number] 11:01:00 Test Item Value Reference Range Interpretation Comments PH VENOUS (BEAKER) (test code = 7.27 7.32-7.42 L 701) PCO2 VENOUS (BEAKER) (test code = 45 mmHg 41-51 755) PO2 VENOUS (BEAKER) (test code = 46 mmHg 25-40 H 702) O2 SATURATION VENOUS (BEAKER) 85.7 % 40.0-70.0 H (test code = 703) HCO3 VENOUS (BEAKER) (test code = 22 mmol/L 21-29 705) BASE EXCESS VENOUS (BEAKER) (test -6.5 mmol/L -2.0-3.0 L code = 704) PATIENT TEMPERATURE (BEAKER) 33.1 C (test code = 1818) FIO2 (BEAKER) (test code = 1819) 80.0 % BLOOD GAS, [id number] 09:32:00 Test Item Value Reference Range Interpretation Comments PH ARTERIAL (BEAKER) (test code = 7.38 7.35-7.45 383) PCO2 ARTERIAL (BEAKER) (test code 36 mmHg 35-45 = 384) PO2 ARTERIAL (BEAKER) (test code 341 mmHg 80-90 H = 385) O2 SATURATION ARTERIAL (BEAKER) 99.7 % 96.0-97.0 H (test code = 386) HCO3 ARTERIAL (BEAKER) (test code 21 mmol/L 21-29 = 388) BASE EXCESS ARTERIAL (BEAKER) -4.0 mmol/L -2.0-3.0 L (test code = 387) PATIENT TEMPERATURE (BEAKER) 35.9 C (test code = 1818) FIO2 (BEAKER) (test code = 1819) 90.0 % GLUCOSE-STAT [id number] 09:32:00 Test Item Value Reference Range Interpretation Comments GLUCOSE RANDOM (BEAKER) (test code 151 mg/dL 70-110 H = 652) SODIUM NA-STAT [id number] 09:31:00 Test Item Value Reference Range Interpretation Comments SODIUM (BEAKER) (test code = 381) 136 meq/L 135-148 POTASSIUM-STAT [id number] 09:31:00 Test Item Value Reference Range Interpretation Comments POTASSIUM (BEAKER) (test code = 4.2 meq/L 3.6-5.5 379) HGB/HCT (H&H) - STAT [id number] 09:31:00 Test Item Value Reference Range Interpretation Comments HEMOGLOBIN (BEAKER) (test code = 16.5 g/dL 13.0-16.8 410) HEMATOCRIT (BEAKER) (test code = 49.0 % 40.0-50.0 411) RAD, CHEST, 2 [id number] 12:00:00Reason for Exam:->Pre-OpFINAL REPORT TECHNIQUE: Frontal and lateral chest radiographs dated 07/22/2017. CLINICAL HISTORY: Pre op COMPARISON STUDY: None FINDINGS: Trace right pleural effusion with associated atelectasis. There is linear atelectasis in the right upper lobe. No focal consolidation. No pneumothorax. Mild cardiomegaly is suspected. No pulmonary edema. Degenerative changes are seen in the spine. No fracture. IMPRESSION: Trace right pleural effusion with associated atelectasis. Signed: Candelario Mcdanielseport Verified Date/Time: 07/22/2017 12:00:46 Reading Location: [facility] Radiology Reading Room HEMOGLOBIN [id number] 11:51:00 Test Item Value Reference Range Interpretation Comments HEMOGLOBIN A1C (BEAKER) (test code = 7.6 % 4.3-6.1 H 368) BASIC METABOLIC [id number] 10:24:00 Test Item Value Reference Range Interpretation Comments SODIUM (BEAKER) 139 meq/L 136-145 (test code = 381) POTASSIUM (BEAKER) 4.3 meq/L 3.5-5.1 (test code = 379) CHLORIDE (BEAKER) 110 meq/L 98-107 H (test code = 382) CO2 (BEAKER) (test 21 meq/L 22-29 L code = 355) BLOOD UREA NITROGEN 21 mg/dL 7-21 (BEAKER) (test code = 354) CREATININE (BEAKER) 1.38 mg/dL 0.57-1.25 H (test code = 358) GLUCOSE RANDOM 147 mg/dL 70-105 H (BEAKER) (test code = 652) CALCIUM (BEAKER) 8.6 mg/dL 8.4-10.2 (test code = 697) EGFR (BEAKER) (test 50 mL/min/1.73 ESTIMA RENUKA GFR IS code = 1092) sq m NOT ACCURATE CREATININE CLEARANCE IN PREDICTING GLOMERULAR FILTRATION RATE . ESTIMATED GFR I S NOT APPLICABLE FOR DIALYSIS PATIEN TS. PROTHROMBIN [id number] 10:21:00 Test Item Value Reference Range Interpretation Comments PROTIME (BEAKER) (test code = 14.9 seconds 11.7-14.7 H 759) INR (BEAKER) (test code = 370) 1.2 <=5.9 RECOMMENDED COUMADIN/WARFARIN INR THERAPY RANGESSTANDARD DOSE: 2.0 - 3.0 Includes: PROPHYLAXIS forvenous thrombosis, systemic embolization; TREATMENT for venous thrombosis and/or pulmonary embolus.HIGH RISK: Target INR is 2.5-3.5 for patients with mechanical heart valves.CBC W/PLT COUNT & AUTO DIFFERENTIAL 2017-07-22 10:11:00 Test Item Value Reference Range Interpretation Comments WHITE BLOOD CELL COUNT (BEAKER) 6.3 K/ L 3.5-10.5 (test code = 775) RED BLOOD CELL COUNT (BEAKER) 4.77 M/ L 4.63-6.08 (test code = 761) HEMOGLOBIN (BEAKER) (test code = 15.8 GM/DL 13.7-17.5 410) HEMATOCRIT (BEAKER) (test code = 47.0 % 40.1-51.0 411) MEAN CORPUSCULAR VOLUME (BEAKER) 98.5 fL 79.0-92.2 H (test code = 753) MEAN CORPUSCULAR HEMOGLOBIN 33.1 pg 25.7-32.2 H (BEAKER) (test code = 751) MEAN CORPUSCULAR HEMOGLOBIN CONC 33.6 GM/DL 32.3-36.5 (BEAKER) (test code = 752) RED CELL DISTRIBUTION WIDTH 14.3 % 11.6-14.4 (BEAKER) (test code = 412) PLATELET COUNT (BEAKER) (test 161 K/CU MM 150-450 code = 756) MEAN PLATELET VOLUME (BEAKER) 11.2 fL 9.4-12.4 (test code = 754) NUCLEATED RED BLOOD CELLS 0 /100 WBC 0-0 (BEAKER) (test code = 413) NEUTROPHILS RELATIVE PERCENT 72 % (BEAKER) (test code = 429) LYMPHOCYTES RELATIVE PERCENT 18 % (BEAKER) (test code = 430) MONOCYTES RELATIVE PERCENT 8 % (BEAKER) (test code = 431) EOSINOPHILS RELATIVE PERCENT 1 % (BEAKER) (test code = 432) BASOPHILS RELATIVE PERCENT 1 % (BEAKER) (test code = 437) NEUTROPHILS ABSOLUTE COUNT 4.47 K/ L 1.78-5.38 (BEAKER) (test code = 670) LYMPHOCYTES ABSOLUTE COUNT 1.15 K/ L 1.32-3.57 L (BEAKER) (test code = 414) MONOCYTES ABSOLUTE COUNT (BEAKER) 0.48 K/ L 0.30-0.82 (test code = 415) EOSINOPHILS ABSOLUTE COUNT 0.07 K/ L 0.04-0.54 (BEAKER) (test code = 416) BASOPHILS ABSOLUTE COUNT (BEAKER) 0.04 K/ L 0.01-0.08 (test code = 417) IMMATURE GRANULOCYTES-RELATIVE 1 % 0-1 PERCENT (BEAKER) (test code = 2806)
[2020-02-18 17:14] LABS: Absolute Lymphocytes (CBC) 0.7 K/uL (0.7-4.9); Basophils % 0.5 % (0-1.3); Lymphocytes % 13.1 % (15.3-44.8); MPV 10.1 fL (7.6-11.3); Protime INR 1.53; RBC Red Blood Cell Count 5.43 M/uL (4.33-5.43)
--- NOTE | 2020-02-18 17:34 | RAD REPORT ---
EXAM DESCRIPTION: RAD - Chest Single View - 02/18/2020 5:17 pm CLINICAL HISTORY: DYSPNEA COMPARISON: Portable April 2018 TECHNIQUE: AP portable chest image was obtained 02/18/2020 5:17 pm . FINDINGS: Lung volumes are very low accentuating heart, vasculature and lung markings. No focal mass or consolidation. Mild failure or volume overload can be masked in this setting. Cardiac silhouette is enlarged. Vasculature is mildly prominent. Sternotomy wires are in place. No measurable pleural ef fusion and no pneumothorax. No acute bony abnormality seen. No acute aortic findings suspected. IMPRESSION: Limited shallow inspiration film showing prominent heart, vasculature and lung markings. Findings are not substantially different. Mild failure or volume overload can be masked in this setti ng.
[2020-02-18 17:43] LABS: Bilirubin Direct 0.2 mg/dL (0-0.2); Bilirubin Total 0.4 mg/dL (0.2-1.0); Magnesium 2.3 mg/dL (1.8-2.4); Potassium 4.5 mmol/L (3.5-5.1); Protein, Total 8.6 g/dL (6.4-8.2)
[2020-02-18 17:45] LABS: Troponin (Emerg Dept Use Only) 0.54 ng/mL (0.0-0.045)
--- NOTE | 2020-02-18 18:17 | EDPHYS ---
Physician Documentation [facility] Name: Hudson Pacheco Age: 74 yrs Sex: Male : 1945 Arrival Date: 02/18/2020 Time: 16:21 Bed 18 Private MD: ED Physician Dickson Israel HPI: 02/18 07:55 This 74 yrs old Male presents to ER via EMS with complaints of Shortness Of kdr Breath, covid pos.. 07:55 The patient has shortness of breath at rest, with light activity. Onset: The kdr symptoms/episode began/occurred gradually, 5 day(s) ago. Duration: The symptoms are continuous, and are steadily getting worse. The patient's shortness of breath is aggravated by coughing, exertion, light activity. Associated signs and symptoms: The patient has no apparent associated signs or symptoms. Severity of symptoms: At their worst the symptoms were moderate in the emergency department the symptoms are unchanged. The patient has experienced similar episodes in the past, a few times. The patient has been recently seen by a physician: The patient was seen at clinic Friday and tested positive for COVID. Since then he has been increasingly SOB especially with any exertion. Historical: - Allergies: 02/17 16:26 No Known Allergies; em - PMHx: 16: "fluid on the lungs"; Atrial Fib; CHF; CVA; Diabetes - NIDDM; Gout; Hyperlipidemia; em - PSHx: 16:26 Triple ByPass; Colostomy; em - Immunization history:: Adult Immunizations unknown. - Social history:: Smoking status: Patient denies any tobacco usage or history of. ROS: 02/18 07:55 Constitutional: Negative for fever, chills, and weight loss, Eyes: Negative for injury, kdr pain, redness, and discharge, Neck: Negative for injury, pain, and swelling, Cardiovascular: Negative for chest pain, palpitations, and edema, Abdomen/GI: Negative for abdominal pain, nausea, vomiting, diarrhea, and constipation, Back: Negative for injury and pain, : Negative for injury, bleeding, discharge, and swelling, MS/Extremity: Negative for injury and deformity, Skin: Negative for injury, rash, and discoloration. Respiratory: Positive for cough, dyspnea on exertion, orthopnea, shortness of breath, on exertion. Negative for hemoptysis. Exam: 07:55 Constitutional: This is a well developed, well nourished patient who is awake, alert, kdr and in mild distress. Head/Face: Normocephalic, atraumatic. Eyes: Pupils equal round and reactive to light, extra-ocular motions intact. Lids and lashes normal. Conjunctiva and sclera are non-icteric and not injected. Cornea within normal limits. Periorbital areas with no swelling, redness, or edema. Neck: Trachea midline, no thyromegaly or masses palpated, and no cervical lymphadenopathy. Supple, full range of motion without nuchal rigidity, or vertebral point tenderness. No Meningismus. Chest/axilla: Normal chest wall appearance and motion. Nontender with no deformity. No lesions are appreciated. Back: No spinal tenderness. No costovertebral tenderness. Full range of motion. Skin: Warm, dry with normal turgor. Normal color with no rashes, no lesions, and no evidence of cellulitis. Neuro: Awake and alert, GCS 15, oriented to person, place, time, and situation. Cranial nerves II-XII grossly intact. Motor strength 5/5 in all extremities. Sensory grossly intact. Cerebellar exam normal. Normal gait. Psych: Awake, alert, with orientation to person, place and time. Behavior, mood, and affect are within normal limits. 07:55 Cardiovascular: Rate: normal, Rhythm: regular, Pulses: no pulse deficits are appreciated, Edema: 1+ edema to level of , pedal edema. 07:55 Respiratory: No distress except with exertion - even the exertion required to sit up in bed.. Vital Signs: 02/17 16:22 BP 153 / 82; Pulse 83; Resp 20; Temp 99.9; Pulse Ox 97% on R/A; em 16:22 Weight 99.79 kg; Height 6 ft. 0 in. (182.88 cm); Pain 4/10; em 17:24 BP 145 / 61; Pulse 89; Resp 24; Pulse Ox 98% on R/A; em 16:22 Body Mass Index 29.84 (99.79 kg, 182.88 cm) em MDM: 18:17 Patient medically screened. kdr 02/18 08:28 Data reviewed: vital signs, nurses notes, lab test result(s), radiologic studies. kdr Counseling: I had a detailed discussion with the patient and/or guardian regarding: the historical points, exam findings, and any diagnostic results supporting the discharge/admit diagnosis, lab results, radiology results, the need for further work-up and treatment in the hospital. 02/17 16:32 Order name: Basic Metabolic Panel; Complete Time: 18:08 [facility] 02/17 16:32 Order name: CBC with Diff; Complete Time: 18: [facility] 02/17 16:32 Order name: LFT's; Complete Time: 18: [facility] 02/17 16:32 Order name: Magnesium; Complete Time: 18: [facility] 02/17 16:32 Order name: NT PRO-BNP; Complete Time: 18: [facility] 02/17 16:32 Order name: PT-INR; Complete Time: 18: [facility] 02/17 16:32 Order name: Troponin (emerg Dept Use Only); Complete Time: 18: [facility] 02/17 19:28 Order name: Basic Metabolic Panel [facility] 02/17 19:28 Order name: Basic Metabolic Panel [facility] 02/17 19:28 Order name: CBC with Automated Diff [facility] 02/17 19:28 Order name: CBC with Automated Diff [facility] 02/17 19:28 Order name: Troponin I [facility] 02/17 19:28 Order name: Troponin I [facility] 02/17 19:28 Order name: Troponin I [facility] 02/17 16:32 Order name: XRAY Chest (1 view); Complete Time: 18:08 [facility] 02/17 16:32 Order name: EKG; Complete Time: 16:33 [facility] 02/17 16:32 Order name: Cardiac monitoring; Complete Time: 17: [facility] 02/17 16:32 Order name: EKG - Nurse/Tech; Complete Time: 17: [facility] 02/17 16:32 Order name: IV Saline Lock; Complete Time: 17:21 [facility] 02/17 16:32 Order name: Labs collected and sent; Complete Time: 17: [facility] 02/17 16:32 Order name: O2 Per Protocol; Complete Time: 17:00 [facility] 02/17 19:27 Order name: CONS Physician Consult [facility] 02/17 19:27 Order name: Consistent Carb (ADA) [address] [facility] 02/17 19:28 Order name: EKG Electrocardiogram [facility] 02/17 19:28 Order name: EKG Electrocardiogram [facility] 02/17 19:28 Order name: EKG Electrocardiogram [facility] 02/17 19:28 Order name: EKG Electrocardiogram [facility] 02/18 08:09 Order name: Glucose, Ancillary Testing [facility] 02/18 09:05 Order name: C-Reactive Protein [facility] 02/17 16:32 Order name: O2 Sat Monitoring; Complete Time: 17:00 kdr Administered Medications: 02/17 18:32 Drug: Aspirin Chewable Tablet 324 mg Route: PO; em 19:31 Follow up: Response: No adverse reaction 02/18 06:05 Follow up: Response: No adverse reaction Disposition: 02/18/20 18:17 Hospitalization ordered by Dylon Omer for Observation. Preliminary diagnosis are Shortness of breath, Non-ST elevation (NSTEMI) myocardial infarction. - Bed requested for Intensive Care Unit. - Status is Observation. iw - Condition is Fair. - Problem is new. - Symptoms have improved. Signatures: Dispatcher [employer] [facility] Naty Ruiz RN RN Cheryle Rogers RN Dickson Clifford MD MD [facility] Chris Argueta RN RN Noemi Trivedi RN RN Corky Waters RN Ann Thornton Corrections: (The following items were deleted from the chart) 02/17 20:19 18:17 Hospitalization Ordered by Dylon Omer MD for Observation. Preliminary diagnosis dw is Shortness of breath; Non-ST elevation (NSTEMI) myocardial infarction. Bed requested for Telemetry/MedSurg (observation). Status is Observation. Condition is Fair. Problem is new. Symptoms have improved. kdr 02/18 05:46 02/17 20:19 02/18/2020 18:17 Hospitalization Ordered by Dylon Omer MD for Observation. Preliminary diagnosis is Shortness of breath; Non-ST elevation (NSTEMI) myocardial infarction. Bed requested for [facility] ER HOLD. Status is Observation. Condition is Fair. Problem is new. Symptoms have improved. dw 02/18 09:53 05:46 02/18/2020 18:17 Hospitalization Ordered by Dylon Omer MD for Observation. iw Preliminary diagnosis is Shortness of breath; Non-ST elevation (NSTEMI) myocardial infarction. Bed requested for Intensive Care Unit. Status is Observation. Condition is Fair. Problem is new. Symptoms have improved.
--- NOTE | 2020-02-18 18:17 | ER ---
Nurse's Notes [facility] Name: Hudson Pacheco Age: 74 yrs Sex: Male : 1945 Arrival Date: 02/18/2020 Time: 16:21 Bed 18 Private MD: Diagnosis: Shortness of breath;Non-ST elevation (NSTEMI) myocardial infarction Presentation: 02/17 16:22 Chief complaint: EMS states: called out for shortness of breath for a few days, was em tested on Friday for Covid and tested pos., reports cough, denies fever, 97% RA, was diagnosed with pneumonia 2 days ago. Coronavirus screen: Client denies travel out of the [place] in the last 14 days. Client reports previous positive COVID test result. Date of collection: February 13, 2020. Ebola Screen: Patient negative for fever greater than or equal to 101.5 degrees Fahrenheit, and additional compatible Ebola Virus Disease symptoms Patient denies exposure to infectious person. Patient denies travel to an Ebola-affected area in the 21 days before illness onset. No symptoms or risks identified at this time. Initial Sepsis Screen: Does the patient meet any 2 criteria? No. Patient's initial sepsis screen is negative. Does the patient have a suspected source of infection? No. Patient's initial sepsis screen is negative. Risk Assessment: Do you want to hurt yourself or someone else? Patient reports no desire to harm self or others. Onset of symptoms was February 13, 2020. 16:22 Method Of Arrival: EMS: [facility] em 16:22 Acuity: ESTELLE 3 em Triage Assessment: 02/18 04:00 Respiratory: Onset: The symptoms/episode began/occurred a few days ago, the patient has wh mild shortness of breath. Historical: - Allergies: 02/17 16: No Known Allergies; em - PMHx: 16:26 "fluid on the lungs"; Atrial Fib; CHF; CVA; Diabetes - NIDDM; Gout; Hyperlipidemia; em - PSHx: 16:26 Triple ByPass; Colostomy; em - Immunization history:: Adult Immunizations unknown. - Social history:: Smoking status: Patient denies any tobacco usage or history of. Screenin:22 Abuse screen: Denies threats or abuse. Nutritional screening: No deficits noted. em Tuberculosis screening: No symptoms or risk factors identified. Fall Risk None identified. Assessment: 16:22 General: Appears in no apparent distress. comfortable, Behavior is calm, cooperative, em appropriate for age, Denies fever. Pain: Complains of pain in mid-sternal area Pain currently is 4 out of 10 on a pain scale. Neuro: Level of Consciousness is awake, alert, obeys commands, Oriented to person, place, time, situation, Appropriate for age. Cardiovascular: Capillary refill < 3 seconds Patient's skin is warm and dry. Rhythm is sinus rhythm. Respiratory: Reports shortness of breath cough that is productive, Airway is patent Respiratory effort is even, unlabored, Respiratory pattern is regular, symmetrical, Breath sounds are diminished bilaterally. GI: Abdomen is round non-distended, Colostomy site is clean and dry. Ostomy appliance is intact. Derm: Skin is intact, is fragile, is thin, Skin is pink, warm \\T\\ dry. Musculoskeletal: Capillary refill < 3 seconds, Range of motion: intact in all extremities. 17:30 Reassessment: Patient appears in no apparent distress at this time. Patient and/or em family updated on plan of care and expected duration. Pain level reassessed. Patient is alert, oriented x 3, equal unlabored respirations, skin warm/dry/pink. 18:33 Reassessment: Patient appears in no apparent distress at this time. placed on 2 L via em NC. Vital Signs: 16:22 BP 153 / 82; Pulse 83; Resp 20; Temp 99.9; Pulse Ox 97% on R/A; em 16:22 Weight 99.79 kg; Height 6 ft. 0 in. (182.88 cm); Pain 4/10; em 17:24 BP 145 / 61; Pulse 89; Resp 24; Pulse Ox 98% on R/A; em 16:22 Body Mass Index 29.84 (99.79 kg, 182.88 cm) em ED Course: 16:21 Patient arrived in ED. em 16:22 Patient has correct armband on for positive identification. Bed in low position. Call em light in reach. senior solutions engineer on. Pulse ox on. NIBP on. 16:22 Maintain EMS IV. Dressing intact. Good blood return noted. Site clean \\T\\ dry. Gauge \\T\\ em site: 20 R hand. 16:25 Triage completed. em 16:26 Arm band placed on. em 16:31 Dickson Israel MD is Attending Physician. kdr 16:50 Chris Argueta, RN is Primary Nurse. em 17:17 XRAY Chest (1 view) In Process Unspecified. EDWV 18:14 Dylon Omer MD is Hospitalizing Provider. kdr 19:26 Warm blanket given. Cleaned of incontinence. Linen changed. sg 19:27 a condom cath has been applied for pt due to urinary incontinence. 20:38 Primary Nurse role handed off by Chris Argueta, RN sg 20:38 Corky Waters, RN is Primary Nurse. 02/18 04:00 Report received from Corky Waters RN. 04:00 No provider procedures requiring assistance completed. Patient admitted, IV remains in place. Administered Medications: 02/17 18:32 Drug: Aspirin Chewable Tablet 324 mg Route: PO; em 19:31 Follow up: Response: No adverse reaction 02/18 06:05 Follow up: Response: No adverse reaction Outcome: 02/17 18:17 Decision to Hospitalize by Provider. [facility] 02/18 04:00 Admitted to ER Hold. Please see [facility] for further documentation. Condition: stable Instructed on the need for admit. 09:53 Patient left the ED. Signatures: Dispatcher [employer] EDWV Corky Waters, RN RN Dickson Israel MD MD [facility] Chris Argueta, RN RN Noemi Ramesh, RN ZO Ann Thornton Corrections: (The following items were deleted from the chart) 02/17 16:51 16:22 Coronavirus screen: Client denies travel out of the [place] in the last 14 days. em em
[2020-02-18] MEDS ORDERED: ASPIRIN 81 MG CHEWABLE TABLET ONE (18:40)
[2020-02-18] MEDS ORDERED: GLUCAGON 1 MG/VIAL IM PRN (19:24)
[2020-02-18] MEDS ORDERED: D50W 25 GM/50 ML SYRINGE/VIAL IV PRN (19:24)
[2020-02-18] MEDS ORDERED: ONDANSETRON 4 MG/2 ML VIAL IV PRN (19:24)
[2020-02-18] MEDS ORDERED: ACETAMINOPHEN 500 MG TAB PO PRN (19:24)
[2020-02-18] MEDS: INSULIN -REGULAR HUMAN 50 UNIT/0.5 ML ML SQ SCH (21:00)
[2020-02-18] MEDS ORDERED: AZITHROMYCIN IV 500 MG in NA CHLORIDE 0.9% 250 ML IVPB ONE (23:00)
[2020-02-18 23:07] VITALS: BMI 29.8
[2020-02-18] MEDS ORDERED: METHYLPREDNISOLONE 40 MG INJ ONE (23:24)
[2020-02-19] MEDS ORDERED: AZITHROMYCIN 500 MG INJ IVPB ONE (01:14)
[2020-02-19] MEDS ORDERED: NA CHLORIDE 0.9% 250 ML ONE (01:14)
[2020-02-19 04:36] VITALS: O2SAT 95
[2020-02-19 05:08] VITALS: TEMP 97.8
[2020-02-19 06:02] LABS: Potassium 4.5 mmol/L (3.5-5.1)
[2020-02-19 06:03] LABS: Absolute Lymphocytes (CBC) 0.7 K/uL (0.7-4.9); Basophils % 0.1 % (0-1.3); Hematocrit 48.5 % (39.6-49.0); Lymphocytes % 14.2 % (15.3-44.8); MPV 10.5 fL (7.6-11.3); RBC Red Blood Cell Count 5.27 M/uL (4.33-5.43)
[2020-02-19] MEDS: INSULIN -REGULAR HUMAN 50 UNIT/0.5 ML ML SQ SCH ×2 (07:30→12:19)
[2020-02-19] MEDS ORDERED: PNEUMOCOCCAL VACCINE 0.5 ML IMVAC ONE (08:00)
[2020-02-19] MEDS ORDERED: NACHLORIDE 0.45% 1,000 ML IV SCH (08:00)
[2020-02-19] MEDS ORDERED: INSULIN -REGULAR HUMAN 50 UNIT/0.5 ML ML ONE (08:15)
--- NOTE | 2020-02-19 08:46 | P.SSS ---
Patient History Date of Service: 02/19/20 Reason for admission: BROUGHT HIM HERE. COVID POSITIVE. History of Present Illness: MR. ELAINE HAD COUGH AND MILD DYSPNEA. I HAD HIM TESTED AT [facility]. HE IS POSITIVE FOR COVID. HIS PULSE OX ONCE DROPPED TO88% AT HOME BUT I SUSPECT IT WAS A WRONG TECHNIC OR COLD FINGERS RIGHT AFTER IT CAME UP TO 92%. I HAVE GIVEN HIM STEROIDS, ABX, NEBULIZER AT HOME AND HE IS ALREADY ON THERAPEUTIC XARELTO FOR A FIB. HE IS VERY STABLE AND WANTS TO GO HOME. Allergies No Known Drug Allergies Allergy (Verified 05/30/18 07:54) Unknown No Known Allergies Allergy (Uncoded 05/30/18 07:54) Unknown Home Medications: Amiodarone HCl [Cordarone*] 200 mg PO DAILY 04/14/18 Ascorbic Acid [Vitamin C*] 500 mg PO BID 04/14/18 Atorvastatin Calcium [Lipitor] 40 mg PO BEDTIME 04/14/18 Escitalopram Oxalate 10 mg PO DAILY 04/14/18 Furosemide [Lasix*] 40 mg PO DAILY 04/14/18 Magnesium Oxide 400 mg PO DAILY 04/14/18 Pantoprazole [Protonix Tab*] 40 mg PO DAILY 04/14/18 Rivaroxaban [Xarelto*] 20 mg PO DAILY 04/14/18 Spironolactone [Aldactone*] 25 mg PO DAILY 04/14/18 Zinc Sulfate [Zinc Sulfate*] 220 mg PO DAILY 04/14/18 allopurinoL [Allopurinol] 100 mg PO DAILY 04/14/18 carvediloL [Coreg*] 3.125 mg PO BID 05/30/18 Furosemide [Lasix] 20 mg PO DAILY 02/18/20 Promethazine/Dextromethorphan [Promethazine-Dm Syrup] 02/18/20 Rivaroxaban [Xarelto] 15 mg PO DAILY 02/18/20 dexAMETHasone [Dexamethasone] 4 mg PO 02/18/20 - Past Medical/Surgical History Diabetic: No -: Prior elboW pain -: LYMPHEDEMA -: GOUT -: HYPERTENSION -: HIGH CHOLESTEROL -: OBESITY -: Afib -: AK -: sacrum wound with wound vac -: diverticulitis -: sebaceous cyst July 2012 -: two back sx 1969 & 1981 -: bladder sx 2006 -: triple bypass july 2017 -: colostomy -: sacrum wound debridement - Family History Father -: Heart disease, Diabetes Mother -: Cancer - Social History Smoking Status: Former smoker Alcohol use: No CD- Drugs: No Caffeine use: No Review of Systems 10-point ROS is otherwise unremarkable Physical Examination - Vital Signs Temperature: 97.8 F Blood Pressure: 112/54 Pulse: 65 Respirations: 16 Pulse Ox (%): 94 - Physical Exam General: Alert, In no apparent distress, Obese (BUT HAS LOST 80 LBS SINCE HE GOT 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 WITH 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 WAS IN HOSPITAL FOR MONTHS LAST YEAR.) Cardiovascular: Irregular heart rate/rhythm (A FIB IS OLD.) Musculoskeletal: No tenderness Integumentary: No rashes Neurological: Normal speech, Normal strength at 5/5 x4 extr Lymphatics: No axilla or inguinal lymphadenopathy - Studies Laboratory Data (last 24 hrs) 02/18/20 16:50: PT 17.9 H, INR 1.53 02/18/20 16:50: WBC 5.3, Hgb 16.6, Hct 50.0 H, Plt Count 159 02/18/20 16:50: Sodium 137, Potassium 4.5, BUN 32 H, Creatinine 2.31 H, Glucose 95, Magnesium 2.3, Total Bilirubin 0.4, AST 29, ALT 22, Alkaline Phosphatase 78 - Diagnosis (Problem(s)) (1) Pneumonia due to COVID-19 virus Current Visit: Yes Status: Acute Plan: HE HAS ALL MEDS AT HOME. HE IS STABLE TO GO HOME. TROPONIN CAN BE HIGH WITH ANY ILLNESS OF HEART AND LUNGS ESPECIALLY WITH SOME STRESS TO HEART. HE HAS NO SYMPTOMS OF AK OR FINDINGS OF. (2) Atrial fibrillation Onset Date: 03/04/14 Current Visit: No Status: Chronic Qualifiers: Atrial fibrillation type: longstanding persistent Qualified Code(s): I48.11 - Longstanding persistent atrial fibrillation (3) Diabetes Onset Date: 03/02/18 Current Visit: No Status: Chronic Plan: HE IS STABLE. HAS CKD FROM IT BUT STABLE. PROGNOSIS IS GUARDED. Qualifiers: Diabetes mellitus type: type 2 (4) Debilitated patient Current Visit: Yes Status: Chronic Plan: MAINLY DECONDITIONED FROM AGING, OBESITY, CHRONIC ILLNESS SINCE LAST YEAR. - Disposition Disposition: ROUTINE DISCHARGE
[2020-02-19] MEDS ORDERED: METHYLPREDNISOLONE 40 MG INJ IV SCH (09:00)
[2020-02-19] MEDS ORDERED: RIVAROXABAN 10 MG TABLET PO SCH (09:00)
[2020-02-19] MEDS ORDERED: ASPIRIN EC 81 MG TAB PO SCH (09:00)
[2020-02-19] MEDS ORDERED: ASPIRIN 81 MG CHEWABLE TABLET ONE (09:01)
[2020-02-19] MEDS ORDERED: METHYLPREDNISOLONE 40 MG INJ ONE (09:01)
[2020-02-19] MEDS ORDERED: NACHLORIDE 0.45% 1,000 ML IV ONE (09:01)
--- NOTE | 2020-02-19 11:28 | P.CNS ---
Date of Consult: 02/19/20 Reason for Consult: Vargas virus infection Chief Complaint: COVID pos History of Present Illness: PT was tested for COVID sent here to Er. doing well no complaints. Slight SOB. Midl elevated tropinins Allergies No Known Drug Allergies Allergy (Verified 05/30/18 07:54) Unknown No Known Allergies Allergy (Uncoded 05/30/18 07:54) Unknown Home Medications: Atorvastatin Calcium [Lipitor] 40 mg PO BEDTIME 04/14/18 Magnesium Oxide 400 mg PO DAILY 04/14/18 Rivaroxaban [Xarelto*] 15 mg PO DAILY 04/14/18 Spironolactone [Aldactone*] 25 mg PO DAILY 04/14/18 allopurinoL [Allopurinol] 100 mg PO DAILY 04/14/18 Furosemide [Lasix*] 40 mg PO DAILY 02/18/20 Promethazine/Dextromethorphan [Promethazine-Dm Syrup] 5 ml PO QID PRN 02/18/20 Cholecalciferol (Vitamin D3) [Vitamin D3] 2,000 unit PO DAILY 02/19/20 Folic Acid 1 tab PO DAILY 02/19/20 Gabapentin 1 tab PO TID 02/19/20 Multivit-Min/FA/Lycopen/Lutein [Centrum Silver Men Tablet] 1 tab PO DAILY 02/19/20 - Past Medical/Surgical History Diabetic: No -: Prior elboW pain -: LYMPHEDEMA -: GOUT -: HYPERTENSION -: HIGH CHOLESTEROL -: OBESITY -: Afib -: [place] -: sacrum wound with wound vac -: diverticulitis -: sebaceous cyst July 2012 -: two back sx 1969 & 1981 -: bladder sx 2006 -: triple bypass july 2017 -: colostomy -: sacrum wound debridement - Family History Father Medical History: Heart disease, Diabetes Mother Medical History: Cancer - Social History Smoking Status: Former smoker Alcohol use: No CD- Drugs: No Caffeine use: No Review of Systems 10-point ROS is otherwise unremarkable Physical Examination Temp Pulse Resp BP Pulse Ox 97.8 F 65 16 112/54 L 94 02/19/20 08:47 02/19/20 08:47 02/19/20 08:47 02/19/20 08:47 02/19/20 08:47 Laboratory Data (last 24 hrs) 09/25/20 16:50: PT 17.9 H, INR 1.53 02/18/20 16:50: WBC 5.3, Hgb 16.6, Hct 50.0 H, Plt Count 159 02/18/20 16:50: Sodium 137, Potassium 4.5, BUN 32 H, Creatinine 2.31 H, Glucose 95, Magnesium 2.3, Total Bilirubin 0.4, AST 29, ALT 22, Alkaline Phosphatase 78 - Problems (1) COVID-19 Current Visit: Yes Status: Acute Plan: TP tested pos for COVID. Stable for discharge No O2 needed, Mildly elevated troponins. CXRY minimal changes LAbs reviewed. CRF. CRP elevated. DC home. No steroids or antibiotics. MVI OTC
--- NOTE | 2020-02-19 12:25 | EKG ---
Test Date: 2020-02-18 Test Time: 17:08:06 Modeling Instructor: LEONOR MEASUREMENT RESULTS: Intervals: Rate: 81 VT: QRSD: 74 QT: 352 QTc: 408 [place]: P: VT: QRS: 118 T: 26 INTERPRETIVE STATEMENTS: Atrial fibrillation with a competing junctional pacemaker Right axis deviation Anteroseptal infarct, age undetermined Abnormal ECG Compared to ECG 05/29/2018 21:26:55 Right-axis deviation now present Myocardial infarct finding still present Electronically Signed On 02-19-20 12:24:25 CDT by Vazquez Santos
[2020-02-19 13:35] VITALS: BP 100/51
[2020-02-19] MEDS ORDERED: RIVAROXABAN 15 MG TABLET PO SCH (17:00)
--- NOTE | 2020-02-19 19:20 | CON ---
Date of Consultation: 02/19/2020 Reason For Consultation: Shortness of breath, congestive heart failure, and history of CAD. History Of Present Illness: Mr. Pacheco is a 74-year-old white male. He is very well known to me fr om office visits and previous admission. He has had a history of CABG about 3 years ago, has had a h istory of colostomy, atrial fibrillation, congestive heart failure, diabetes, hypertension, hyperlipi demia, gout, and history of CVA in the past. He came in mostly with shortness of breath. He is know n to be COVID positive. Symptoms have been going on for about 5 days. He denied any nausea, vomitin g, or diaphoresis, but had some chest pain following coughing, mostly in the midepigastric region and the right upper shoulder without any PND or orthopnea. He has had some pedal edema, but no palpitat ion or syncope. Denied any fever or chills now. Past Medical History: As stated above. Allergies: NONE. Review of Systems: Negative. Social History: Negative. Family History: Noncontributory. Medications: At home include Lipitor, Lasix, Xarelto, Aldactone, and allopurinol. Physical Examination: Vital Signs: When I saw him, his blood pressure was 100/51, he was in atrial fibrillation at a rate of 70, he was afebrile. HEENT: Negative. Neck: Supple. No bruit. Chest: Clear. Cardiac: Atrial fibrillation. Abdomen: Benign. Extremities: No clubbing, cyanosis, or edema. Laboratory Studies: His creatinine is 2.37. His troponin is 0.54. BNP was 1261. Chest x-ray showe d mild failure. EKG showed atrial fibrillation. Last echocardiogram in March of 2018 showed an e jection fraction of 62%. His last catheterization was in June of 2017 where he was sent to [facility]. Impression And Plan: 1.Atrial fibrillation, rate controlled, on Eliquis. 2.Acute on chronic diastolic congestive heart failure, that has resolved. 3.Stage III chronic renal disease, that needs to be observed. 4.History of coronary artery disease, status post coronary artery bypass graft that is stable. His pain is very atypical. His troponin elevation is secondary to chronic coronary artery disease an d renal failure. No need for other coronary intervention or catheterization at this point. His othe r problems including diabetes, hyperlipidemia, and gout seem to be stable. I am very comfortable wit h Mr. Pacheco going home. I will see him in the office in the near future. ROGERIO/GERMÁN Voice ID: [id number] Report ID: [id number]
[2020-02-19] MEDS ORDERED: AZITHROMYCIN IV 500 MG in NA CHLORIDE 0.9% 250 ML IVPB SCH (21:00)
[2020-02-20] MEDS ORDERED: HOME MED 1 EA UNK PO SCH (17:00)
== END 2020-02-19 13:20 | disposition home or self-care (01) ==
LOC: ER 16:21 → ERHOLD 19:47 → 3RD-ICU 02-19 09:21
PROVIDERS: ADMIT Internal Medicine; ATTEND Internal Medicine
DX: U07.1 COVID-19 (principal); I13.0 Hypertensive heart and chronic kidney disease with heart failure and stage 1 through stage 4 chronic kidney disease, or unspecified chronic kidney disease; I50.33 Acute on chronic diastolic (congestive) heart failure; N18.3 Chronic kidney disease, stage 3 (moderate); I48.91 Unspecified atrial fibrillation; Z79.01 Long term (current) use of anticoagulants; I25.10 Atherosclerotic heart disease of native coronary artery without angina pectoris; Z95.1 Presence of aortocoronary bypass graft; E78.5 Hyperlipidemia, unspecified; M10.9 Gout, unspecified; E11.22 Type 2 diabetes mellitus with diabetic chronic kidney disease; R94.31 Abnormal electrocardiogram [ECG] [EKG]; Z86.73 Personal history of transient ischemic attack (TIA), and cerebral infarction without residual deficits; E78.00 Pure hypercholesterolemia, unspecified; E66.9 Obesity, unspecified; I25.2 Old myocardial infarction; Z93.3 Colostomy status; Z87.891 Personal history of nicotine dependence; R53.81 Other malaise; Z79.52 Long term (current) use of systemic steroids; Z68.29 Body mass index [BMI] 29.0-29.9, adult
CPT/HCPCS: 93005 ×2; 85025 ×2; 80048 ×2; 36415; 83735; 85610; 82947 ×2; 80076; 84484 ×3; 83880; 86140; 71045; 99285; J0456; J7050; J2920 ×2; G0378 ×3